=== PATIENT | female | born 1960 | race Caucasian/White ===

== ENCOUNTER 2018-05-28 23:44 | Emergency (ER) | payer OTHER ==
--- OUTSIDE RECORDS SUMMARY | 2018-05-28 23:45 | XMS REPORT ---
:1960 [facility] to [facility] [address] [place] [id number] Care Team Providers Name Role Phone Unavailable Unavailable Unavailable Problems This patient has no known problems. Allergies, Adverse Reactions, Alerts This patient has no known allergies or adverse reactions. Medications This patient has no known medications.
[2018-05-29 01:05] LABS: Protime INR 1.23
[2018-05-29 01:17] LABS: ALT/SGPT 26 U/L (12-78); AST/SGOT 34 U/L (15-37); Albumin 4.2 g/dL (3.4-5.0); Alkaline Phosphatase 94 U/L (45-117); BUN Blood Urea Nitrogen 29 mg/dL (7-18); Bicarbonate 19 mmol/L (21-32); Bilirubin Direct 0.1 mg/dL (0-0.2); Bilirubin Total 0.5 mg/dL (0.2-1.0); Glucose Level 95 mg/dL (74-106); Magnesium 1.8 mg/dL (1.8-2.4); Potassium 3.3 mmol/L (3.5-5.1); Protein, Total 8.1 g/dL (6.4-8.2); Sodium Level 137 mmol/L (136-145); Troponin (Emerg Dept Use Only) < 0.02 ng/mL (0.0-0.045)
[2018-05-29 01:21] LABS: Absolute Lymphocytes (CBC) 1.6 K/uL (0.7-4.9); Absolute Monocytes 0.9 K/uL (0.1-1.3); Absolute Neutrophil 16.8 K/uL (1.8-8.0); Basophils % 0.6 % (0-1.3); Hematocrit 31.2 % (36.0-45.0); Lymphocytes % 8.1 % (15.3-44.8); MCH 30.8 pg (27.0-35.0); MCV 89.9 fL (80-100); MPV 9.2 fL (7.6-11.3); Monocytes % 4.5 % (3.3-12.3); RBC Red Blood Cell Count 3.47 M/uL (3.86-4.86)
[2018-05-29 02:24] LABS: Blood Morphology Comment NOT SEEN (NOT SEEN); Platelet Estimate ADEQ
[2018-05-29] MEDS ORDERED: LIDOCAINE VISCOUS 2% SOLN 15 ML UDC ONE (02:48)
[2018-05-29] MEDS ORDERED: MAGNE/ALUM HYDROXD 30 ML UCUP ONE (02:48)
--- NOTE | 2018-05-29 03:37 | EDPHYS ---
Physician Documentation [facility] Name: Martha Pradhan Age: 57 yrs Sex: Female : 1960 Arrival Date: 05/28/2018 Time: 23:44 Bed 5 Private MD: ED Physician Pradip Ramírez HPI: 05/29 02:05 This 57 yrs old Female presents to ER via EMS with complaints of Anxiety. tw4 02:05 The patient has shortness of breath with light activity. Onset: The symptoms/episode tw4 began/occurred today. Duration: The symptoms are intermittent. The patient's shortness of breath has no apparent modifying factors. Associated signs and symptoms: The patient has no apparent associated signs or symptoms. Severity of symptoms: At their worst the symptoms were moderate in the emergency department the symptoms are unchanged. The patient has not experienced similar symptoms in the past. Historical: - Allergies: 05/28 23:58 haloperidol lactate; lp1 23:58 hydroxyzine HCl; lp1 23:58 Hydroxyzine Pamoate; lp1 23:58 Ibuprofen; lp1 23:58 Lyrica; lp1 23:58 meloxicam; lp1 23:58 nalbuphine HCl; lp1 23:58 Naproxen; lp1 23:58 Naproxen Sodium; lp1 23:58 NSAIDS (Non-Steroidal Anti-Inflammatory Drug); lp1 23:58 Vistaril; lp1 - Home Meds: 23:58 fentanyl 50 mcg/hr Topical pt72 1 patch every 72 hours [Active]; metoprolol tartrate 25 lp1 mg Oral tab 1 tab 2 times per day [Active]; Omeprazole Oral [Active]; Bentyl Oral [Active]; - PMHx: 23:58 ADD/ADHD; Arthritis; Back pain; Chronic pain; Osteoporosis; Tachycardia; Irritable lp1 bowel syndrome; Anxiety; - PSHx: 23:58 Hysterectomy; Appendectomy; lp1 - Immunization history:: Adult Immunizations up to date. - Social history:: Smoking status: Patient/guardian denies using tobacco, the patient reports quitting approximately 6 years ago. - Ebola Screening: : No symptoms or risks identified at this time. ROS: 05/29 02:05 Constitutional: Negative for fever, chills, and weight loss, Eyes: Negative for injury, tw4 pain, redness, and discharge, Abdomen/GI: Negative for abdominal pain, nausea, vomiting, diarrhea, and constipation, Back: Negative for injury and pain. Cardiovascular: Positive for chest pain. Respiratory: Positive for shortness of breath. Exam: 02:05 Constitutional: This is a well developed, well nourished patient who is awake, alert, tw4 and in no acute distress. Head/Face: Normocephalic, atraumatic. Chest/axilla: Normal chest wall appearance and motion. Nontender with no deformity. No lesions are appreciated. Cardiovascular: Regular rate and rhythm with a normal S1 and S2. No gallops, murmurs, or rubs. Normal PMI, no JVD. No pulse deficits. Respiratory: Lungs have equal breath sounds bilaterally, clear to auscultation and percussion. No rales, rhonchi or wheezes noted. No increased work of breathing, no retractions or nasal flaring. Abdomen/GI: Soft, non-tender, with normal bowel sounds. No distension or tympany. No guarding or rebound. No evidence of tenderness throughout. Back: No spinal tenderness. No costovertebral tenderness. Full range of motion. MS/ Extremity: Pulses equal, no cyanosis. Neurovascular intact. Full, normal range of motion. Neuro: Awake and alert, GCS 15, oriented to person, place, time, and situation. Cranial nerves II-XII grossly intact. Motor strength 5/5 in all extremities. Sensory grossly intact. Cerebellar exam normal. Normal gait. Vital Signs: 05/28 23:54 BP 138 / 60; Pulse 95; Resp 22; Temp 100.2(O); Pulse Ox 100% on R/A; Weight 52.16 kg; lp1 Height 5 ft. 6 in. (167.64 cm); Pain 7/10; 05/29 01:33 BP 114 / 73; Pulse 86; Resp 18; Temp 99.7; Pulse Ox 100% on R/A; aa1 03:46 BP 121 / 63; Pulse 86; Resp 20; Pulse Ox 97% on R/A; aa1 05/28 23:54 Body Mass Index 18.56 (52.16 kg, 167.64 cm) lp1 MDM: 00:04 Patient medically screened. tw4 03:39 Differential diagnosis: Anemia Anxiety Reaction reactive airway disease. Data reviewed: tw4 vital signs, nurses notes. Data interpreted: Pulse oximetry: Interpretation:. Counseling: I had a detailed discussion with the patient and/or guardian regarding: the historical points, exam findings, and any diagnostic results supporting the discharge/admit diagnosis. 05/29 00:04 Order name: Basic Metabolic Panel tw4 05/29 00:04 Order name: CBC with Diff tw4 05/29 00:04 Order name: LFT's tw4 05/29 00:04 Order name: Magnesium tw4 05/29 00:04 Order name: NT PRO-BNP tw4 05/29 00:04 Order name: PT-INR tw4 05/29 00:04 Order name: Troponin (emerg Dept Use Only) tw4 05/29 00:04 Order name: XRAY Chest (1 view) tw4 05/29 00:04 Order name: EKG; Complete Time: 00:06 tw4 05/29 00:04 Order name: Cardiac monitoring; Complete Time: 00:04 tw4 05/29 00:04 Order name: EKG - Nurse/Tech; Complete Time: 00:21 tw4 05/29 01:26 Order name: Manual Differential EDMS 05/29 02:42 Order name: Troponin (emerg Dept Use Only) tw4 05/29 00:04 Order name: IV Saline Lock; Complete Time: 00:54 tw4 05/29 00:04 Order name: Labs collected and sent; Complete Time: 00:54 tw4 05/29 00:04 Order name: O2 Per Protocol; Complete Time: 00:04 tw4 05/29 00:04 Order name: O2 Sat Monitoring; Complete Time: 00:04 tw4 EC:38 Rate is 92 beats/min. Rhythm is regular. QRS [place] is Normal. [place] interval is normal. QRS tw4 interval is normal. QT interval is normal. No Q waves. T waves are Normal. No ST changes noted. Clinical impression: Normal ECG. Interpreted by me. Reviewed by me. Administered Medications: 02:50 Drug: GI Cocktail without - (Maalox Suspension 30 ml, Lidocaine Liquid 2 % 15 aa1 ml) Route: PO; Disposition: 05/29/18 03:36 Discharged to Home. Impression: Gastritis, unspecified. - Condition is Stable. - Discharge Instructions: Gastritis, Adult, Dyst-dt-Fsle. - Prescriptions for Carafate 1 gram Oral Tablet - take 1 tablet by ORAL route 4 times per day take on an empty stomach, beginning on waking and last dose at bedtime; 100 tablet. - Medication Reconciliation Form, Thank You Letter, Antibiotic Education, Prescription Opioid Use form. - Follow up: Private Physician; When: Upon discharge from the Emergency Department; Reason: If symptoms return, Recheck today's complaints, Continuance of care. - Problem is new. - Symptoms have improved. Signatures: Dispatcher [employer] EDNancy Hernández RN RN aa1 Sindi Guillen RN RN lp1 Pradip Ramírez MD MD tw4 Corrections: (The following items were deleted from the chart) 03:50 03:36 05/29/2018 03:36 Discharged to Home. Impression: Gastritis, unspecified. aa1 Condition is Stable. Forms are Medication Reconciliation Form, Thank You Letter, Antibiotic Education, Prescription Opioid Use. Follow up: Private Physician; When: Upon discharge from the Emergency Department; Reason: If symptoms return, Recheck today's complaints, Continuance of care. Problem is new. Symptoms have improved. tw4
--- NOTE | 2018-05-29 03:37 | ER ---
Nurse's Notes [facility] Name: Martha Pradhan Age: 57 yrs Sex: Female : 1960 Arrival Date: 05/28/2018 Time: 23:44 Bed 5 Private MD: Diagnosis: Gastritis, unspecified Presentation: 05/28 23:51 Presenting complaint: EMS states: Called for shortness of breath related to anxiety; lp1 patient has hx of anxiety; Complaint of chest pain, noted to be hyperventilating on arrival to ED. Transition of care: patient was not received from another setting of care. Onset of symptoms was May 28, 2018 at 22:00. Risk Assessment: Do you want to hurt yourself or someone else? Patient reports no desire to harm self or others. Initial Sepsis Screen: Does the patient meet any 2 criteria? No. Patient's initial sepsis screen is negative. Does the patient have a suspected source of infection? No. Patient's initial sepsis screen is negative. Note Patient states taking her home med of Metoprolol which usually helps, no relief for this occurrence. Care prior to arrival: Medication(s) given: ASA, 81 mg, x 4. 23:51 Method Of Arrival: EMS: [facility] lp1 23:51 Acuity: ROSALBA 3 lp1 Historical: - Allergies: 23:58 haloperidol lactate; lp1 23:58 hydroxyzine HCl; lp1 23:58 Hydroxyzine Pamoate; lp1 23:58 Ibuprofen; lp1 23:58 Lyrica; lp1 23:58 meloxicam; lp1 23:58 nalbuphine HCl; lp1 23:58 Naproxen; lp1 23:58 Naproxen Sodium; lp1 23:58 NSAIDS (Non-Steroidal Anti-Inflammatory Drug); lp1 23:58 Vistaril; lp1 - Home Meds: 23:58 fentanyl 50 mcg/hr Topical pt72 1 patch every 72 hours [Active]; metoprolol tartrate 25 lp1 mg Oral tab 1 tab 2 times per day [Active]; Omeprazole Oral [Active]; Bentyl Oral [Active]; - PMHx: 23:58 ADD/ADHD; Arthritis; Back pain; Chronic pain; Osteoporosis; Tachycardia; Irritable lp1 bowel syndrome; Anxiety; - PSHx: 23:58 Hysterectomy; Appendectomy; lp1 - Immunization history:: Adult Immunizations up to date. - Social history:: Smoking status: Patient/guardian denies using tobacco, the patient reports quitting approximately 6 years ago. - Ebola Screening: : No symptoms or risks identified at this time. Screenin:59 Abuse screen: Denies threats or abuse. Denies injuries from another. Nutritional lp1 screening: No deficits noted. Tuberculosis screening: No symptoms or risk factors identified. Fall Risk Total Silva Fall Scale indicates High Risk Score (45 or more points). Fall prevention measures have been instituted. Side Rails Up X 2 As available patient and family educated on Fall Prevention Program and Strategies. Assessment: 23:59 General: Appears uncomfortable, Behavior is anxious, restless. Pain: Complains of pain lp1 in back, chest, right leg and left leg Pain currently is 7 out of 10 on a pain scale. Neuro: Level of Consciousness is awake, alert, obeys commands, Oriented to person, place, situation. Cardiovascular: Patient's skin is warm and dry. Respiratory: Reports shortness of breath Airway is patent Respiratory effort is labored, Respiratory pattern is tachypnea Breath sounds are clear bilaterally. GI: Abdomen is flat. : No signs and/or symptoms were reported regarding the genitourinary system. EENT: No signs and/or symptoms were reported regarding the EENT system. Derm: Skin is fragile, is thin, Skin is dry, Skin is normal. Musculoskeletal: Circulation, motion, and sensation intact. 05/29 01:33 Reassessment: Patient appears in no apparent distress at this time. Patient and/or aa1 family updated on plan of care and expected duration. Pain level reassessed. Patient is alert, oriented x 3, equal unlabored respirations, skin warm/dry/pink. Awaiting provider reassessment. 03:46 Reassessment: Patient appears in no apparent distress at this time. Patient is alert, aa1 oriented x 3, equal unlabored respirations, skin warm/dry/pink. Discussed d/c \T\ f/u instructions with pt; denies questions or concerns at this time Patient states feeling better. Vital Signs: 05/28 23:54 BP 138 / 60; Pulse 95; Resp 22; Temp 100.2(O); Pulse Ox 100% on R/A; Weight 52.16 kg; lp1 Height 5 ft. 6 in. (167.64 cm); Pain 7/10; 05/29 01:33 BP 114 / 73; Pulse 86; Resp 18; Temp 99.7; Pulse Ox 100% on R/A; aa1 03:46 BP 121 / 63; Pulse 86; Resp 20; Pulse Ox 97% on R/A; aa1 05/28 23:54 Body Mass Index 18.56 (52.16 kg, 167.64 cm) lp1 ED Course: 05/28 23:44 Patient arrived in ED. al2 23:54 Triage completed. lp1 23:55 Arm band placed on right wrist. lp1 23:59 Patient has correct armband on for positive identification. Placed in gown. Bed in low lp1 position. Side rails up X2. color television console monitor on. Pulse ox on. NIBP on. 12 00:04 Pradip Ramírez MD is Attending Physician. tw4 00:20 Initial lab(s) drawn, by nj, sent to lab. Inserted saline lock: 20 gauge in right aa1 forearm, using aseptic technique. Blood collected. 00:21 EKG done, by ED staff, reviewed by Pradip Ramírez MD. lp1 00:40 X-ray completed. Portable x-ray completed in exam room. Patient tolerated procedure sg4 well. 00:54 Nancy Adan, RN is Primary Nurse. aa1 01:01 XRAY Chest (1 view) In Process Unspecified. EDMS 02:50 Troponin (emerg Dept Use Only) Sent. aa1 03:46 No provider procedures requiring assistance completed. IV discontinued, intact, aa1 bleeding controlled, No redness/swelling at site. Pressure dressing applied. Administered Medications: 02:50 Drug: GI Cocktail without - (Maalox Suspension 30 ml, Lidocaine Liquid 2 % 15 aa1 ml) Route: PO; Outcome: 03:36 Discharge ordered by . tw4 03:46 Discharged to home ambulatory. aa1 03:46 Condition: good 03:46 Discharge instructions given to patient, Instructed on discharge instructions, follow up and referral plans. medication usage, Demonstrated understanding of instructions, follow-up care, medications, Prescriptions given X 1. 03:50 Patient left the ED. aa1 Signatures: Dispatcher [employer] EDMS Nancy Adan RN RN aa1 Sindi Guillen, RN RN lp1 Trudi, Rochelle al2 Pradip Ramírez MD MD tw4 Rashawn, Randee 4
--- NOTE | 2018-05-29 07:03 | EKG ---
Test Date: 2018-05-29 Test Time: 00:18:34 Vamp Presser: RAAD MEASUREMENT RESULTS: Intervals: Rate: 92 ME: 132 QRSD: 84 QT: 356 QTc: 440 [place]: P: 66 ME: 132 QRS: 64 T: 54 INTERPRETIVE STATEMENTS: Normal sinus rhythm Normal ECG No previous ECG available for comparison Electronically Signed On 05-29-18 07:02:51 MEDICAL DEVICE SALES CONSULTANT by Wale Loja
--- NOTE | 2018-05-29 08:46 | RAD REPORT ---
EXAM DESCRIPTION: Sarwat Single View05/29/2018 1:00 am CLINICAL HISTORY: Chest pain COMPARISON: none FINDINGS: The lungs appear clear of acute infiltrate. The heart is normal size. Old rib clavicle an d humeral fractures IMPRESSION: No acute abnormalities displayed
== END 2018-05-29 03:50 | disposition home or self-care (01) ==
LOC: ER 23:44
DX: K29.70 Gastritis, unspecified, without bleeding (principal); F41.9 Anxiety disorder, unspecified; F90.9 Attention-deficit hyperactivity disorder, unspecified type; Z88.6 Allergy status to analgesic agent; Z88.8 Allergy status to other drugs, medicaments and biological substances
CPT/HCPCS: 36415; 71045; 80048; 80076; 83735; 83880; 84484; 85025; 85610; 93005; 99285

== ENCOUNTER → 2018-11-21 | Emergency (ER) | payer OTHER ==
[~2018-11-21] MED LIST: HEPARIN 5000 UNIT/ML 1 ML VIAL SQ SCH; NA CHLORIDE 0.9% 1,000 ML IV SCH; NA CHLORIDE 0.9% 2,000 ML ONE; ONDANSETRON 4 MG/2 ML VIAL IV PRN
--- OUTSIDE RECORDS SUMMARY | 2018-11-21 21:13 | XMS REPORT ---
:1960 [facility] [address] [place] [id number] Care Team Providers Name Role Phone Unavailable Unavailable Unavailable Problems This patient has no known problems. Allergies, Adverse Reactions, Alerts This patient has no known allergies or adverse reactions. Medications This patient has no known medications.
[2018-11-21 22:46] LABS: Absolute Lymphocytes (CBC) 0.9 K/uL (0.7-4.9); Absolute Monocytes 0.9 K/uL (0.1-1.3); Absolute Neutrophil 7.3 K/uL (1.8-8.0); Basophils % 0.7 % (0-1.3); Hematocrit 35.2 % (36.0-45.0); MPV 8.6 fL (7.6-11.3); Monocytes % 9.4 % (3.3-12.3); RBC Red Blood Cell Count 4.14 M/uL (3.86-4.86)
[2018-11-21 22:51] LABS: Protime INR 1.12
[2018-11-21 22:59] LABS: ALT/SGPT 22 U/L (12-78); AST/SGOT 23 U/L (15-37); Albumin 3.5 g/dL (3.4-5.0); Alkaline Phosphatase 121 U/L (45-117); BUN Blood Urea Nitrogen 25 mg/dL (7-18); Bicarbonate 26 mmol/L (21-32); Bilirubin Direct < 0.1 mg/dL (0-0.2); Bilirubin Total 0.3 mg/dL (0.2-1.0); Glucose Level 155 mg/dL (74-106); Potassium 4.1 mmol/L (3.5-5.1); Protein, Total 7.4 g/dL (6.4-8.2); Sodium Level 141 mmol/L (136-145)
[2018-11-22 00:23] LABS: Barbiturates NEGATIVE (NEGATIVE); Benzodiazepines POSITIVE (NEGATIVE); Cocaine NEGATIVE (NEGATIVE); METHAMPHETAM POSITIVE (NEGATIVE); Methadone NEGATIVE (NEGATIVE); Opiates NEGATIVE (NEGATIVE); Phencyclidine NEGATIVE (NEGATIVE); THC Cannibis NEGATIVE (NEGATIVE)
--- NOTE | 2018-11-22 00:23 | ER ---
Nurse's Notes [facility] Name: Martha Pradhan Age: 58 yrs Sex: Female : 1960 Arrival Date: 11/21/2018 Time: 21:18 Bed 20 Private MD: Diagnosis: Altered mental status, unspecified;Adverse effect of amphetamines;Adverse effect of benzodiazepines Presentation: 11/21 21:15 Presenting complaint: EMS states: "Patient was found unconscious lying on the floor by cc3 her mother at around 1930H this evening. The mother said they don't know since when she was lying there unconscious because she is usually awake at night and asleep during the day. When we arrived at their house at 2015H the patient is awake already and oriented X2. Patient is on Amphetamine Salts 30 mg twice daily but her mother don't know if she overdose it because on the bottle it should be 60 pills total but when counted it's only 52 pills remaining, the mother said the patient has history of abusing this drug before. Patient was combative earlier with heart rate of 160 bpm so we have given her Ativan 2 mg IV". Transition of care: patient was not received from another setting of care. Onset of symptoms was November 21, 2018. Risk Assessment: Do you want to hurt yourself or someone else? Patient reports no desire to harm self or others. Initial Sepsis Screen: Does the patient meet any 2 criteria? No. Patient's initial sepsis screen is negative. Does the patient have a suspected source of infection? No. Patient's initial sepsis screen is negative. Care prior to arrival: Medication(s) given: Ativan 2 mg IV given by EMS. 21:15 [facility] cc[facility] 21:15 Acuity: ROSALBA 2 cc3 Triage Assessment: 21:15 General: Appears in no apparent distress. comfortable, Behavior is calm, cooperative, cc3 appropriate for age. Pain: Denies pain. EENT: No signs and/or symptoms were reported regarding the EENT system. Neuro: Level of Consciousness is awake, obeys commands, Oriented to person, place. Cardiovascular: Patient's skin is warm and dry. Respiratory: Airway is patent Respiratory effort is even, unlabored, Respiratory pattern is regular, symmetrical. GI: Abdomen is flat, non-distended. : No signs and/or symptoms were reported regarding the genitourinary system. Derm: No signs and/or symptoms reported regarding the dermatologic system. Musculoskeletal: Range of motion: limited in bilateral lower limbs. Historical: - Allergies: 21:15 haloperidol lactate; cc3 21:15 hydroxyzine HCl; cc3 21:15 Hydroxyzine Pamoate; cc3 21:15 Ibuprofen; cc3 21:15 Lyrica; cc3 21:15 meloxicam; cc3 21:15 nalbuphine HCl; cc3 21:15 Naproxen; cc3 21:15 Naproxen Sodium; cc3 21:15 NSAIDS (Non-Steroidal Anti-Inflammatory Drug); cc3 21:15 Vistaril; cc3 - Home Meds: 21:15 Adderall XR 30 mg oral cp24 2x daily [Active]; Bentyl Oral [Active]; fentanyl 50 mcg/hr cc3 Topical pt72 1 patch every 72 hours [Active]; Klonopin 1 mg Oral tab 1 tab 3 times per day [Active]; metoprolol tartrate 50 mg oral tab 1 tab 3 times per day [Active]; Omeprazole Oral [Active]; Premarin 1.25 mg Oral tab 1 tab once daily [Active]; - PMHx: 21:15 ADD/ADHD; Anxiety; Arthritis; Back pain; Chronic pain; Irritable bowel syndrome; cc3 Osteoporosis; Tachycardia; restless leg syndrome; - PSHx: 21:15 both feet broken 2x; broken ribs 2x; cc3 - Immunization history:: Adult Immunizations up to date. - Social history:: Smoking status: Patient/guardian denies using tobacco, but has a distant history of tobacco abuse. - Ebola Screening: : No symptoms or risks identified at this time. Screenin:15 Abuse screen: Denies threats or abuse. Denies injuries from another. Nutritional cc3 screening: No deficits noted. Tuberculosis screening: No symptoms or risk factors identified. Fall Risk Ambulatory Aid- None/Bed Rest/Nurse Assist (0 pts). Gait- Normal/Bed Rest/Wheelchair (0 pts) Mental Status- Oriented to own ability (0 pts). Assessment: 21:15 General: see triage assessment. Patient is awake, answers questions when asked and cc3 oriented to person and place at this time. 22:25 Reassessment: Patient appears in no apparent distress at this time. Patient and/or cc3 family updated on plan of care and expected duration. Pain level reassessed. Patient's family at bedside. 23:00 Reassessment: Patient appears in no apparent distress at this time. Patient and/or cc3 family updated on plan of care and expected duration. Pain level reassessed. Patient is sleeping. Arousable to voice with incomprehensible sounds. The mother said it's not the first time that the patient's in this state because she has history of abusing her Amphetamine Salts before. SUMMER Pulido aware. 11/22 00:10 Reassessment: Patient's mother went home and left her home phone number [phone]. cc3 00:55 Reassessment: Patient appears in no apparent distress at this time. Patient for cc3 admission, Dr. Guillen at bedside. 01:30 Reassessment: Patient appears in no apparent distress at this time. Patient taken by CT cc3 scan body technician/painter to their department for CT scan of head procedure. Patient is ER Hold, documentation continued in [facility]. 01:55 Reassessment: Patient came back from CT scan department, awaiting result. cc3 07:00 Reassessment: Patient appears in no apparent distress at this time. Patient and/or cc3 family updated on plan of care and expected duration. Pain level reassessed. Patient is alert, oriented x 3, equal unlabored respirations, skin warm/dry/pink. Dr. Guillen discharged the patient home, IV cannula removed and patient left ER vitally stable by wheelchair escorted by [facility] and the patient's mother. Vital Signs: 11/21 21:15 BP 95 / 36; Pulse 88; Resp 20 S; Temp 97.8(TE); Pulse Ox 100% on R/A; Weight 45.36 kg cc3 (R); Height 5 ft. 0 in. (152.40 cm) (R); Pain 0/10; 21:45 BP 100 / 59; Pulse 78; Resp 19 S; Pulse Ox 99% on R/A; cc3 22:30 BP 110 / 48; Pulse 80; Resp 19 S; Pulse Ox 100% on R/A; cc3 23:30 BP 130 / 81; Pulse 76; Resp 17 S; Pulse Ox 100% on R/A; cc3 11/22 00:02 BP 116 / 60; Pulse 68; Resp 13 S; Pulse Ox 100% on R/A; cc3 01:15 BP 127 / 58; Pulse 70; Resp 20 S; Pulse Ox 100% on R/A; cc3 11/21 21:15 Body Mass Index 19.53 (45.36 kg, 152.40 cm) cc3 Armando Coma Score: 11/21 21:15 Eye Response: spontaneous(4). Verbal Response: oriented(5). Motor Response: obeys cc3 commands(6). Total: 15. 23:00 Eye Response: to voice(3). Verbal Response: incomprehensible(2). Motor Response: cc3 localizes pain(5). Total: 10. ED Course: 21:15 Maintain EMS IV. Dressing intact. Good blood return noted. Site clean \\T\\ dry. Gauge \\T\\ cc 3 site: gauge 20 right ACV. 21:15 Arm band placed on right wrist. Patient notified of wait time. EKG completed in triage. cc3 Results shown to MD. 21:18 Patient arrived in ED. rn 21:22 Santosh Pulido PA is PHCP. jr8 21:22 Bryon Rivera MD is Attending Physician. jr8 21:30 Placed in gown. Bed in low position. Call light in reach. Side rails up X 1. Side rails jp3 up X2. Pillow given. Verbal reassurance given. 21:30 clinical research monitor on. Pulse ox on. NIBP on. jp3 21:33 Josiane Joe is Primary Nurse. cc3 21:36 EKG done, by ED staff, reviewed by Santosh WHEELER. jp3 22:03 Triage completed. cc3 22:35 Acetaminophen Sent. jp3 22:35 Basic Metabolic Panel Sent. jp3 22:35 CBC with Diff Sent. jp3 22:35 ETOH Level Sent. jp3 22:35 Hepatic Function Sent. jp3 22:35 PT-INR Sent. jp3 22:35 Ptt, Activated Sent. jp3 22:35 Salicylate Sent. jp3 11/22 00:21 Eliud Guillen MD is Hospitalizing Provider. jr8 01:51 CT Head Brain wo Cont In Process Unspecified. EDMS 07:00 No provider procedures requiring assistance completed. IV discontinued, intact, cc3 bleeding controlled, No redness/swelling at site. Pressure dressing applied. Administered Medications: 00:30 Drug: NS 0.9% 1000 ml Route: IV; Rate: 1000 ml; Site: right forearm; cc3 01:30 Follow up: Response: No adverse reaction; IV Status: Completed infusion; IV Intake: cc3 1000ml 00:44 Drug: NS 0.9% 1000 ml Route: IV; Rate: 75 ml/hr; Site: right forearm; cc3 01:00 Follow up: Response: No adverse reaction; IV Status: Infusion continued upon admission cc3 Intake: 01:30 IV: 1000ml; Total: 1000ml. cc3 Outcome: 00:23 Decision to Hospitalize by Provider. jr8 07:00 Patient left the ED. cc3 07:00 Discharged to home via wheelchair, with family. cc3 07:00 Condition: stable 07:00 Discharge instructions given to patient, family, Instructed on discharge instructions, follow up and referral plans. Demonstrated understanding of instructions, follow-up care. Signatures: Dispatcher [employer] EDMS Bryon Rivera MD MD rn Roszak, Josh, PA PA jr8 Waldo Langley jp3 Josiane Joe cc3 Corrections: (The following items were deleted from the chart) 01:48 00:55 Reassessment: Dr. Guillen at bedside. cc3 cc3 01:48 0611 21:15 General: see triage assessment. cc3 cc3 11/22 01:55 06 23:00 Reassessment: Patient appears in no apparent distress at this time. Patient cc3 and/or family updated on plan of care and expected duration. Pain level reassessed. Patient is sleeping. Arousable to pain with incomprehensible sounds. The mother said it's not the first time that the patient's in this state because she has history of abusing her Amphetamine Salts before. SUMMER Pulido aware. cc3 11/22 01:56 11 23:00 GCS: 9, cc3 cc3
--- NOTE | 2018-11-22 00:24 | EDPHYS ---
Physician Documentation [facility] Name: Martha Pradhan Age: 58 yrs Sex: Female : 1960 Arrival Date: 11/21/2018 Time: 21:18 Bed 20 Private MD: ED Physician Bryon Rivera HPI: 11/21 22:46 This 58 yrs old Female presents to ER via EMS with complaints of overdose. jr8 22:46 The patient presents to the emergency department after a known overdose, that was jr8 intentional. Context: Method: the patient has a confirmed or suspected ingestion, amphetamines. Associated signs and symptoms: Pertinent positives: anxiety. Severity of symptoms: At their worst the symptoms were moderate in the emergency department the symptoms have improved. The patient has not experienced similar symptoms in the past. The patient has not recently seen a physician. Mother of patient stated that she controls patients medications because patient abuses her medications. Patient got upset tonight and took the medications from her mother and went into her room. Later came out and through a basket at her. EMS and police were called. Patient was agitated upon arrival and was given Ativan. Patient now resting and without acute agitation. Patient denies taking anything or wanting to hurt herself . Historical: - Allergies: 21:15 haloperidol lactate; cc3 21:15 hydroxyzine HCl; cc3 21:15 Hydroxyzine Pamoate; cc3 21:15 Ibuprofen; cc3 21:15 Lyrica; cc3 21:15 meloxicam; cc3 21:15 nalbuphine HCl; cc3 21:15 Naproxen; cc3 21:15 Naproxen Sodium; cc3 21:15 NSAIDS (Non-Steroidal Anti-Inflammatory Drug); cc3 21:15 Vistaril; cc3 - Home Meds: 21:15 Adderall XR 30 mg oral cp24 2x daily [Active]; Bentyl Oral [Active]; fentanyl 50 mcg/hr cc3 Topical pt72 1 patch every 72 hours [Active]; Klonopin 1 mg Oral tab 1 tab 3 times per day [Active]; metoprolol tartrate 50 mg oral tab 1 tab 3 times per day [Active]; Omeprazole Oral [Active]; Premarin 1.25 mg Oral tab 1 tab once daily [Active]; - PMHx: 21:15 ADD/ADHD; Anxiety; Arthritis; Back pain; Chronic pain; Irritable bowel syndrome; cc3 Osteoporosis; Tachycardia; restless leg syndrome; - PSHx: 21:15 both feet broken 2x; broken ribs 2x; cc3 - Immunization history:: Adult Immunizations up to date. - Social history:: Smoking status: Patient/guardian denies using tobacco, but has a distant history of tobacco abuse. - Ebola Screening: : No symptoms or risks identified at this time. ROS: 22:46 Eyes: Negative for injury, pain, redness, and discharge, ENT: Negative for injury, jr8 pain, and discharge, Neck: Negative for injury, pain, and swelling, Cardiovascular: Negative for chest pain, palpitations, and edema, Respiratory: Negative for shortness of breath, cough, wheezing, and pleuritic chest pain, Abdomen/GI: Negative for abdominal pain, nausea, vomiting, diarrhea, and constipation, Back: Negative for injury and pain, MS/Extremity: Negative for injury and deformity, Skin: Negative for injury, rash, and discoloration, Neuro: Negative for headache, weakness, numbness, tingling, and seizure. 22:46 Psych: Positive for anxiety. Exam: 22:46 Eyes: Pupils equal round and reactive to light, extra-ocular motions intact. Lids and jr8 lashes normal. Conjunctiva and sclera are non-icteric and not injected. Cornea within normal limits. Periorbital areas with no swelling, redness, or edema. ENT: Nares patent. No nasal discharge, no septal abnormalities noted. Tympanic membranes are normal and external auditory canals are clear. Oropharynx with no redness, swelling, or masses, exudates, or evidence of obstruction, uvula midline. Mucous membranes moist. Neck: Trachea midline, no thyromegaly or masses palpated, and no cervical lymphadenopathy. Supple, full range of motion without nuchal rigidity, or vertebral point tenderness. No Meningismus. Cardiovascular: Regular rate and rhythm with a normal S1 and S2. No gallops, murmurs, or rubs. Normal PMI, no JVD. No pulse deficits. Respiratory: Lungs have equal breath sounds bilaterally, clear to auscultation and percussion. No rales, rhonchi or wheezes noted. No increased work of breathing, no retractions or nasal flaring. Abdomen/GI: Soft, non-tender, with normal bowel sounds. No distension or tympany. No guarding or rebound. No evidence of tenderness throughout. Back: No spinal tenderness. No costovertebral tenderness. Full range of motion. Skin: Warm, dry with normal turgor. Normal color with no rashes, no lesions, and no evidence of cellulitis. MS/ Extremity: Pulses equal, no cyanosis. Neurovascular intact. Full, normal range of motion. Neuro: Awake and alert, GCS 15, oriented to person, place, time, and situation. Cranial nerves II-XII grossly intact. Motor strength 5/5 in all extremities. Sensory grossly intact. Cerebellar exam normal. Normal gait. Psych: Awake, alert, with orientation to person, place and time. Behavior, mood, and affect are within normal limits. Vital Signs: 21:15 BP 95 / 36; Pulse 88; Resp 20 S; Temp 97.8(TE); Pulse Ox 100% on R/A; Weight 45.36 kg cc3 (R); Height 5 ft. 0 in. (152.40 cm) (R); Pain 0/10; 21:45 BP 100 / 59; Pulse 78; Resp 19 S; Pulse Ox 99% on R/A; cc3 22:30 BP 110 / 48; Pulse 80; Resp 19 S; Pulse Ox 100% on R/A; cc3 23:30 BP 130 / 81; Pulse 76; Resp 17 S; Pulse Ox 100% on R/A; cc3 12 00:02 BP 116 / 60; Pulse 68; Resp 13 S; Pulse Ox 100% on R/A; cc3 01:15 BP 127 / 58; Pulse 70; Resp 20 S; Pulse Ox 100% on R/A; cc3 11/21 21:15 Body Mass Index 19.53 (45.36 kg, 152.40 cm) cc3 Armando Coma Score: 11/21 21:15 Eye Response: spontaneous(4). Verbal Response: oriented(5). Motor Response: obeys cc3 commands(6). Total: 15. 23:00 Eye Response: to voice(3). Verbal Response: incomprehensible(2). Motor Response: cc3 localizes pain(5). Total: 10. MDM: 21:22 Patient medically screened. jr8 11/22 00:21 Data reviewed: vital signs, nurses notes, lab test result(s), EKG. Data interpreted: [facility] Pulse oximetry: on room air is 100 %. Interpretation: normal. Counseling: I had a detailed discussion with the patient and/or guardian regarding: the historical points, exam findings, and any diagnostic results supporting the discharge/admit diagnosis, lab results, the need for further work-up and treatment in the hospital. Physician consultation: Eliud Guillen MD was called at 00:21, was contacted at 00:21, regarding admission, to the telemetry unit. consult, patient's condition, and will see patient in ED. 11/21 21:50 Order name: Acetaminophen [facility] 11/21 21:50 Order name: Basic Metabolic Panel [facility] 11/21 21:50 Order name: CBC with Diff [facility] 11/21 21:50 Order name: ETOH Level [facility] 11/21 21:50 Order name: Hepatic Function [facility] 11/21 21:50 Order name: PT-INR [facility] 11/21 21:50 Order name: Ptt, Activated [facility] 11/21 21:50 Order name: Salicylate; Complete Time: 23:04 [facility] 11/21 21:50 Order name: Urine Drug Screen; Complete Time: 00:24 [facility] 11/21 21:51 Order name: Acetaminophen Level; Complete Time: 23:04 [facility] 11/21 21:51 Order name: Basic Metabolic Panel; Complete Time: 23:04 [facility] 11/21 21:51 Order name: CBC with Automated Diff; Complete Time: 22:53 [facility] 11/21 21:51 Order name: Alcohol Serum/Plasma; Complete Time: 23:04 [facility] 11/21 21:51 Order name: Liver (Hepatic) Function; Complete Time: 23:04 [facility] 11/21 21:50 Order name: EKG; Complete Time: 21:51 [facility] 11/21 21:50 Order name: EKG - Nurse/Tech; Complete Time: 21:53 [facility] 11/21 21:50 Order name: IV Saline Lock; Complete Time: 22:34 [facility] 11/21 21:50 Order name: Labs collected and sent; Complete Time: 22:35 [facility] 11/21 21:50 Order name: Urine Dipstick-Ancillary (obtain specimen); Complete Time: 23:51 [facility] 11/21 21:51 Order name: Protime (+INR); Complete Time: 23:04 EDMS 11/21 21:51 Order name: PTT, Activated Partial Thromb; Complete Time: 23:04 EDMS 11/21 23:55 Order name: Urine Dipstick--Ancillary (enter results); Complete Time: 01:18 ar5 11/22 01:18 Order name: CT Head Brain wo Cont jr8 11/22 01:20 Order name: Head Brain Wo Cont EDMS 11/22 06:23 Order name: Basic Metabolic Panel EDMS Administered Medications: 00:30 Drug: NS 0.9% 1000 ml Route: IV; Rate: 1000 ml; Site: right forearm; cc3 01:30 Follow up: Response: No adverse reaction; IV Status: Completed infusion; IV Intake: cc3 1000ml 00:44 Drug: NS 0.9% 1000 ml Route: IV; Rate: 75 ml/hr; Site: right forearm; cc3 01:00 Follow up: Response: No adverse reaction; IV Status: Infusion continued upon admission cc3 Disposition: 19:00 Co-signature as Attending Physician, Bryon Rivera MD. rn Disposition: 11/22/18 00:23 Hospitalization ordered by Eliud Guillen for Observation. Preliminary diagnosis are Altered mental status, unspecified, Adverse effect of amphetamines, Adverse effect of benzodiazepines. - Bed requested for [facility] ER HOLD. - Status is Observation. cc3 - Condition is Stable. - Problem is new. - Symptoms are unchanged. UTI on Admission? No Signatures: Dispatcher [facility] Bety Mcneil RN RN mw Nieto, Roman, MD MD rn Roszak, Josh, [employer] jr8 Josiane Joe cc3 Corrections: (The following items were deleted from the chart) 00:34 00:23 Hospitalization Ordered by Eliud Guillen MD for Observation. Preliminary mw diagnosis is Altered mental status, unspecified; Adverse effect of amphetamines; Adverse effect of benzodiazepines. Bed requested for Telemetry/MedSurg (observation). Status is Observation. Condition is Stable. Problem is new. Symptoms are unchanged. UTI on Admission? No. jr8 00:34 00:34 11/22/2018 00:23 Hospitalization Ordered by Eliud Guillen MD for Observation. mw Preliminary diagnosis is Altered mental status, unspecified; Adverse effect of amphetamines; Adverse effect of benzodiazepines. Bed requested for [facility] ER HOLD. Status is Observation. Condition is Stable. Problem is new. Symptoms are unchanged. UTI on Admission? No. mw 07:00 00:34 11/22/2018 00:23 Hospitalization Ordered by Eliud Guillen MD for Observation. cc3 Preliminary diagnosis is Altered mental status, unspecified; Adverse effect of amphetamines; Adverse effect of benzodiazepines. Bed requested for [facility] ER HOLD. Status is Observation. Condition is Stable. Problem is new. Symptoms are unchanged. UTI on Admission? No. mw
[2018-11-22 00:32] LABS: Urine Blood NEGATIVE (NEG); Urine Glucose NEGATIVE (NEG); Urine Protein NEGATIVE (NEG); Urine Specific Gravity 1.025 (1.005-1.030); Urine pH 6.5 (5.0-7.0)
--- NOTE | 2018-11-22 01:11 | P.HP ---
Certification for Inpatient Patient admitted to: Observation With expected LOS: <2 Midnights Practitioner: I am a practitioner with admitting privileges, knowledge of patient current condition, hospital course, and medical plan of care. Services: Services provided to patient in accordance with Admission requirements found in Title 42 Section 412.3 of the Code of Federal Regulations Patient History Date of Service: 11/22/18 Reason for admission: acute encephalopathy History of Present Illness: Ms Pradhan is a 58 years old woman with multiple medical problems including ADD/ ADHD medicated with methamphetamines, who was found on the floor by her mother last night around 8:30 PM. 911 was called, when EMS arrived, the patient was alert, and actually she become agitated. She received 2 mg of IV Ativan and was transferred to ED. No history of fever or chills. Her mother is concern about drug overdose, since her bottle of addrall, should have 60 pills, and were counted 52. She has history of drug overdose in the past. During her stay in ER she remain obtunded, not very arousable. Lab work remarkable for mild increased creatinine 1.32, normal WBC count. Allergies hydroxyzine HCl [From Vistaril] Allergy (Intermediate, Verified 08/12/12 20:37) Itching/Hives/Rash hydroxyzine pamoate [From Vistaril] Allergy (Intermediate, Verified 08/12/12 20: 37) Itching/Hives/Rash meloxicam [From Mobic] Allergy (Intermediate, Verified 08/12/12 20:37) Itching/Hives/Rash NSAIDS (Non-Steroidal Anti-Inflamma Allergy (Intermediate, Verified 08/12/12 20: 37) Nausea/Vomiting haloperidol [From Haldol] Allergy (Unverified 06/04/15 11:03) Unknown haloperidol lactate [From Haldol] Allergy (Unverified 06/04/15 11:03) Unknown hydroxyzine [From Vistaril] Allergy (Unverified 03/28/16 02:16) Unknown ibuprofen [From Motrin] Allergy (Unverified 06/04/15 11:04) Unknown nalbuphine HCl [From Nubain] Allergy (Unverified 06/04/15 11:04) Unknown naproxen [From Naprosyn] Allergy (Unverified 06/04/15 11:04) Unknown naproxen sodium [From Aleve] Allergy (Unverified 06/04/15 11:03) Unknown pregabalin [From Lyrica] Allergy (Unverified 03/28/16 02:16) Unknown miller Allergy (Uncoded 08/19/17 11:40) Unknown Sunitha Allergy (Uncoded 08/19/17 11:40) Unknown NSAIDS Allergy (Uncoded 08/19/17 11:40) Unknown NSAIDS (No Allergy (Uncoded 11/11/15 18:48) Unknown NSAIDS (Non-Stero Allergy (Uncoded 03/28/16 02:16) Unknown Home medications list reviewed: Yes - Past Medical/Surgical History -: ADD/ADHD -: chronic pain syndrome -: resless leg syndrome -: feet fracture - Family History Family History: Reviewed- Non-Contributory - Social History Alcohol use: No CD- Drugs: No Place of Residence: Home Review of Systems 10-point ROS is otherwise unremarkable Physical Examination - Physical Exam General: Other (obtunded) HEENT: Atraumatic, PERRLA, Sclerae nonicteric Neck: Supple, 2+ carotid pulse no bruit, No LAD, Without JVD or thyroid abnormality Respiratory: Clear to auscultation bilaterally, Normal air movement Cardiovascular: Regular rate/rhythm, Normal S1 S2 Gastrointestinal: Normal bowel sounds, No tenderness Musculoskeletal: No tenderness Integumentary: No rashes Neurological: Normal tone, Sensation intact Lymphatics: No axilla or inguinal lymphadenopathy - Studies Laboratory Data (last 24 hrs) 11/21/18 22:30: PT 13.2 H, INR 1.12, APTT 26.8 11/21/18 22:30: WBC 9.2, Hgb 11.9 L, Hct 35.2 L, Plt Count 543 H 11/21/18 22:30: Sodium 141, Potassium 4.1, BUN 25 H, Creatinine 1.32 H, Glucose 155 H, Total Bilirubin 0.3, AST 23, ALT 22, Alkaline Phosphatase 121 H Assessment and Plan - Problems (Diagnosis) (1) Acute encephalopathy Current Visit: Yes Status: Acute (2) ADD (attention deficit disorder) Current Visit: Yes Status: Acute Qualifiers: Hyperactivity presence: present Attention deficit-hyperactivity disorder type: unspecified Qualified Code(s): F90.9 - Attention-deficit hyperactivity disorder, unspecified type (3) Chronic pain Current Visit: Yes Status: Acute Qualifiers: Chronic pain type: chronic pain syndrome Qualified Code(s): G89.4 - Chronic pain syndrome - Plan The patient will be admitted to the hospital due to acute encephalopathy. There is a suspicious for drug overdose. Will order CT head. Continue IV fluids, fall precaution. - Advance Directives Does patient have a Living Will: No Does patient have a Durable POA for Healthcare: No - Code Status/Comfort Care Code Status Assessed: Yes Code Status: Full Code
[2018-11-22 03:29] VITALS: O2SAT 100; BMI 19.5
[2018-11-22 04:03] VITALS: BP 135/55
--- NOTE | 2018-11-22 06:09 | P.DS ---
Admission Date: 11/22/18 Discharge Date: 11/22/18 Disposition: ROUTINE DISCHARGE Discharge Condition: GOOD Reason for Admission: acute encephalopathy - Problems (1) Acute encephalopathy Current Visit: Yes Status: Acute (2) ADD (attention deficit disorder) Current Visit: Yes Status: Acute Qualifiers: Hyperactivity presence: present Attention deficit-hyperactivity disorder type: unspecified Qualified Code(s): F90.9 - Attention-deficit hyperactivity disorder, unspecified type (3) Chronic pain Current Visit: Yes Status: Acute Qualifiers: Chronic pain type: chronic pain syndrome Qualified Code(s): G89.4 - Chronic pain syndrome Brief History of Present Illness: Ms Pradhan is a 58 years old woman with multiple medical problems including ADD/ ADHD medicated with methamphetamines, who was found on the floor by her mother last night around 8:30 PM. 911 was called, when EMS arrived, the patient was alert, and actually she become agitated. She received 2 mg of IV Ativan and was transferred to ED. No history of fever or chills. Her mother is concern about drug overdose, since her bottle of addrall, should have 60 pills, and were counted 52. She has history of drug overdose in the past. During her stay in ER she remain obtunded, not very arousable. Lab work remarkable for mild increased creatinine 1.32, normal WBC count. Hospital Course: The patient was admitted to the hospital due to acute encephalopathy. CT head shows no acute abnormalities, no metabolic abnormalities found on lab work either. Over her stay in the hospital, the patient improves her level of conscious, she is actually alert and oriented x 3. She states that did not take more medication than usual, however her mother said that she does that all the time. The patient is clinically stable to be discharged home. Will resume her home medication, follow up with PCP in 1-2 days. Vital Signs/Physical Exam: Temp Pulse Resp BP Pulse Ox 64 17 135/55 L 100 11/22/18 04:00 11/22/18 04:00 11/22/18 04:00 11/22/18 04:00 General: Alert, In no apparent distress, Oriented x3 HEENT: Atraumatic, PERRLA, EOMI Neck: Supple, JVD not distended Respiratory: Clear to auscultation bilaterally, Normal air movement Cardiovascular: Regular rate/rhythm, Normal S1 S2 Gastrointestinal: Normal bowel sounds, No tenderness Musculoskeletal: No tenderness Integumentary: No rashes Neurological: Normal speech, Normal tone, Normal affect Laboratory Data at Discharge: WBC 9.2 K/uL (4.3-10.9) 11/21/18 22:30 Hgb 11.9 g/dL (12.0-15.0) L 11/21/18 22:30 Hct 35.2 % (36.0-45.0) L 11/21/18 22:30 Plt Count 543 K/uL (152-406) H 11/21/18 22:30 PT 13.2 SECONDS (9.5-12.5) H 11/21/18 22:30 INR 1.12 11/21/18 22:30 APTT 26.8 SECONDS (24.3-36.9) 11/21/18 22:30 Sodium 141 mmol/L (136-145) 11/21/18 22:30 Potassium 4.1 mmol/L (3.5-5.1) 11/21/18 22:30 BUN 25 mg/dL (7-18) H 11/21/18 22:30 Creatinine 1.32 mg/dL (0.55-1.3) H 11/21/18 22:30 Glucose 155 mg/dL (74-106) H 11/21/18 22:30 Total Bilirubin 0.3 mg/dL (0.2-1.0) 11/21/18 22:30 AST 23 U/L (15-37) 11/21/18 22:30 ALT 22 U/L (12-78) 11/21/18 22:30 Alkaline Phosphatase 121 U/L (45-117) H 11/21/18 22:30 Diet: Regular Activity: Fall precautions Followup: Basil Pace MD [ACTIVE - CAN ADMIT] - Time spent managing pt's care (in minutes): 40
--- NOTE | 2018-11-22 06:17 | EKG ---
Test Date: 2018-11-21 Test Time: 21:33:27 [employer] Agent: ADITYA MEASUREMENT RESULTS: Intervals: Rate: 88 VT: 126 QRSD: 92 QT: 390 QTc: 471 [place]: P: 54 VT: 126 QRS: 65 T: 34 INTERPRETIVE STATEMENTS: Normal sinus rhythm Normal ECG Compared to ECG 05/29/2018 00:18:34 No significant changes Electronically Signed On 11-22-18 06:16:41 CDT by Wale Loja
[2018-11-22 06:20] LABS: Potassium 3.8 mmol/L (3.5-5.1)
[2018-11-22 09:27] VITALS: TEMP 97.8
--- NOTE | 2018-11-22 10:57 | RAD REPORT ---
EXAM DESCRIPTION: CT - Head Brain Wo Cont - 11/22/2018 2:28 am CLINICAL HISTORY: AMS COMPARISON: None available TECHNIQUE: Axial CT of the head obtained from the skull apex to the skull base without contrast. FINDINGS: No acute intracranial hemorrhage identified. No mass, mass effect, shift of the midline, a bnormal extra-axial fluid collection or CT evidence of acute ischemic change identified. The ventricu lar system is unremarkable. No acute abnormalities of the supratentorial white matter, basal gangli a, cerebellum, or brainstem. Opacities in the left maxillary sinus. Mastoid air cells are well aerated. No skull fracture identifi ed. Visualized orbits and globes are unremarkable. DLP: 07 mGy-cm IMPRESSION: 1. No acute intracranial abnormality identified. This exam was performed according to our departmental dose-optimization program, which includes autom ated exposure control, adjustment of the mA and/or kV according to patient size and/or use of iterati ve reconstruction technique. Electronically signed by: Emory Brennan 11/22/2018 2:25 AM CDT Due to temporary technical issues with the PACS/Fluency reporting system, reports are being signed by the in house radiologist as a courtesy to ensure prompt reporting. The interpreting radiologist is f ully responsible for the content of the report.
== END ==
LOC: ER 21:10 → UNDOADMOB 11-22 01:51 → ERHOLD 11-22 01:51 → UNDODISOB 11-22 06:27
DX: G93.40 Encephalopathy, unspecified (principal); T43.625A Adverse effect of amphetamines, initial encounter; T42.4X5A Adverse effect of benzodiazepines, initial encounter; F41.9 Anxiety disorder, unspecified; F90.9 Attention-deficit hyperactivity disorder, unspecified type; G89.29 Other chronic pain; G89.4 Chronic pain syndrome; Z88.5 Allergy status to narcotic agent; Z88.6 Allergy status to analgesic agent; Z88.8 Allergy status to other drugs, medicaments and biological substances
CPT/HCPCS: 36415; 70450; 80048; 80076; 80307; 80320; 80329; 81003; 85025; 85610; 85730; 93005; 96360; 99284

== ENCOUNTER 2019-04-09 01:00 | Emergency (ER) | payer OTHER ==
[2019-04-09] MEDS ORDERED: NALOXONE 0.4 MG/ML VIAL ONE (01:58)
[2019-04-09 02:56] LABS: Protime INR 0.99
[2019-04-09 02:59] LABS: Absolute Lymphocytes (CBC) 3.1 K/uL (0.7-4.9); Basophils % 1.4 % (0-1.3); Hematocrit 32.8 % (36.0-45.0); Lymphocytes % 27.7 % (15.3-44.8); MPV 8.8 fL (7.6-11.3); RBC Red Blood Cell Count 3.95 M/uL (3.86-4.86)
[2019-04-09 04:40] LABS: ALT/SGPT 22 U/L (12-78); AST/SGOT 22 U/L (15-37); Albumin 3.3 g/dL (3.4-5.0); Alkaline Phosphatase 96 U/L (45-117); BUN Blood Urea Nitrogen 28 mg/dL (7-18); Bicarbonate 26 mmol/L (21-32); Bilirubin Direct < 0.1 mg/dL (0-0.2); Bilirubin Total 0.3 mg/dL (0.2-1.0); Glucose Level 110 mg/dL (74-106); Magnesium 1.7 mg/dL (1.8-2.4); NT PRO-BNP 55 pg/mL (<125); Potassium 4.2 mmol/L (3.5-5.1); Sodium Level 139 mmol/L (136-145); Troponin (Emerg Dept Use Only) < 0.02 ng/mL (0.0-0.045)
--- NOTE | 2019-04-09 04:54 | EDPHYS ---
Physician Documentation [facility] Name: Martha Pradhan Age: 58 yrs Sex: Female : 1960 Arrival Date: 04/09/2019 Time: 01:01 Bed 17 Private MD: ED Physician Pradip Ramírez HPI: 04/09 03:14 This 58 yrs old Female presents to ER via EMS with complaints of Lethargy. tw4 03:14 The patient presents with decreased mental status, decreased responsiveness. Onset: The tw4 symptoms/episode began/occurred today. Associated signs and symptoms: The patient has no apparent associated signs or symptoms. Patient's baseline: Neuro: alert and fully oriented, Motor: no deficits, Ambulation: walks without assistance. The patient has not experienced similar symptoms in the past. Historical: - Allergies: 00:50 haloperidol lactate; cc3 00:50 hydroxyzine HCl; cc3 00:50 Hydroxyzine Pamoate; cc3 00:50 Ibuprofen; cc3 00:50 Lyrica; cc3 00:50 meloxicam; cc3 00:50 nalbuphine HCl; cc3 00:50 Naproxen; cc3 00:50 Naproxen Sodium; cc3 00:50 NSAIDS (Non-Steroidal Anti-Inflammatory Drug); cc3 00:50 Vistaril; cc3 - Home Meds: 00:50 Adderall XR 30 mg Oral cp24 2x daily [Active]; Bentyl Oral [Active]; fentanyl 50 mcg/hr cc3 Topical pt72 1 patch every 72 hours [Active]; Klonopin 1 mg Oral tab 1 tab 3 times per day [Active]; metoprolol tartrate 50 mg Oral tab 1 tab 3 times per day [Active]; Omeprazole Oral [Active]; Premarin 1.25 mg Oral tab 1 tab once daily [Active]; - PMHx: 00:50 ADD/ADHD; Anxiety; Arthritis; Back pain; Chronic pain; Irritable bowel syndrome; cc3 Osteoporosis; restless leg syndrome; Tachycardia; - Immunization history:: Adult Immunizations up to date. - Social history:: Smoking status: Patient/guardian denies using tobacco, never smoked. - Ebola Screening: : No symptoms or risks identified at this time. ROS: 03:14 Constitutional: Negative for fever, chills, and weight loss, Eyes: Negative for injury, tw4 pain, redness, and discharge, Cardiovascular: Negative for chest pain, palpitations, and edema, Respiratory: Negative for shortness of breath, cough, wheezing, and pleuritic chest pain, Abdomen/GI: Negative for abdominal pain, nausea, vomiting, diarrhea, and constipation, Back: Negative for injury and pain, MS/Extremity: Negative for injury and deformity, Skin: Negative for injury, rash, and discoloration. 03:14 Neuro: Positive for altered mental status, Negative for dizziness, gait disturbance, speech changes, syncope, near syncope, tingling, tinnitus, tremor. Exam: 03:14 Constitutional: This is a well developed, well nourished patient who is awake, alert, tw4 and in no acute distress. Head/Face: Normocephalic, atraumatic. Chest/axilla: Normal chest wall appearance and motion. Nontender with no deformity. No lesions are appreciated. Cardiovascular: Regular rate and rhythm with a normal S1 and S2. No gallops, murmurs, or rubs. Normal PMI, no JVD. No pulse deficits. Respiratory: Lungs have equal breath sounds bilaterally, clear to auscultation and percussion. No rales, rhonchi or wheezes noted. No increased work of breathing, no retractions or nasal flaring. Abdomen/GI: Soft, non-tender, with normal bowel sounds. No distension or tympany. No guarding or rebound. No evidence of tenderness throughout. Back: No spinal tenderness. No costovertebral tenderness. Full range of motion. MS/ Extremity: Pulses equal, no cyanosis. Neurovascular intact. Full, normal range of motion. 03:14 Neuro: Orientation: to person, place \T\ time. Mentation: slow to respond, somnolent, Memory: is normal. Vital Signs: 00:50 BP 116 / 55; Pulse 69; Resp 11 S; Temp 97.8(TE); Pulse Ox 100% on R/A; Weight 49.9 kg cc3 (R); Height 5 ft. 1 in. (154.94 cm) (R); Pain 0/10; 01:49 BP 93 / 53; Pulse 72; Resp 12 S; Pulse Ox 100% on R/A; cc3 02:15 BP 113 / 56; Pulse 82; Resp 11 S; Pulse Ox 100% on R/A; cc3 03:10 BP 106 / 47; Pulse 83; Resp 12 S; Pulse Ox 100% on R/A; cc3 04:33 BP 126 / 57; Pulse 76; Resp 14 S; Pulse Ox 100% on R/A; Pain 0/10; cc3 05:28 BP 112 / 41; Pulse 70; Resp 13 S; Pulse Ox 100% on R/A; cc3 06:00 BP 101 / 59; Pulse 73; Resp 15 S; Pulse Ox 100% on R/A; Pain 0/10; cc3 00:50 Body Mass Index 20.78 (49.90 kg, 154.94 cm) cc3 MDM: 01:14 Patient medically screened. tw4 04/10 01:54 Data reviewed: vital signs, EMS record. Counseling: I had a detailed discussion with [facility] the patient and/or guardian regarding: the historical points, exam findings, and any diagnostic results supporting the discharge/admit diagnosis. 01:56 Differential Diagnosis: CVA, electrolyte abnormality. Data interpreted: Pulse oximetry: tw4 Interpretation: normal. Medication response: after Narcan, the patient wakes to full consciousness. The symptoms have resolved. Response to treatment: and as a result, I will discharge patient. Special discussion: I discussed with the patient/guardian in detail that at this point there is no indication for admission to the hospital. It is understood, however, that if the symptoms persist or worsen the patient needs to return immediately for re-evaluation. 04/09 01:15 Order name: Basic Metabolic Panel; Complete Time: 04:51 tw4 04/09 04:51 Interpretation: Normal except: GLUC 110; GFR 68. tw4 04/09 01:15 Order name: CBC with Diff; Complete Time: 03:22 tw4 04/09 03:22 Interpretation: Normal except: WBC 11.2; HGB 10.9; HCT 32.8; PLT 520; RDW 16.4; MN% tw4 12.9; BASO% 1.4; MNA 1.4. 04/09 01:15 Order name: LFT's; Complete Time: 04:51 tw4 04/09 04:52 Interpretation: Normal except: ALB 3.3; GLOB 3.7; A/G 0.9. tw4 04/09 01:15 Order name: Magnesium; Complete Time: 04:51 04/09 04:52 Interpretation: Within normal limits: MG 1.7. 04/09 01:15 Order name: NT PRO-BNP; Complete Time: 04:51 04/09 04:52 Interpretation: Within normal limits: NT PRO-BNP 55. 04/09 01:15 Order name: PT-INR; Complete Time: 03:22 04/09 01:15 Order name: Troponin (emerg Dept Use Only); Complete Time: 04:51 04/09 04:52 Interpretation: Within normal limits: TROPED < 0.02. 04/09 01:15 Order name: XRAY Chest (1 view) 04/09 01:15 Order name: EKG; Complete Time: 01:16 04/09 01:15 Order name: Cardiac monitoring; Complete Time: 01:24 04/09 01:15 Order name: EKG - Nurse/Tech; Complete Time: 02:08 04/09 01:15 Order name: CT Head Brain wo Cont 04/09 01:15 Order name: IV Saline Lock; Complete Time: 01:24 04/09 01:15 Order name: Labs collected and sent; Complete Time: 02:56 04/09 01:15 Order name: O2 Per Protocol; Complete Time: 01:24 04/09 01:15 Order name: O2 Sat Monitoring; Complete Time: 01:24 Administered Medications: 04/09 01:58 Drug: NARcan 0.4 mg Route: IVP; Site: left antecubital; aa1 02:05 Follow up: Response: No adverse reaction cc3 Disposition: 04/09/19 04:53 Discharged to Home. Impression: Opioid dependence with intoxication delirium, Adverse effect of other synthetic narcotics, Altered mental status, unspecified. - Condition is Stable. - Discharge Instructions: Chemical Dependency, Opioid Overdose, Delirium. - Medication Reconciliation Form, Thank You Letter, Antibiotic Education, Prescription Opioid Use form. - Follow up: Private Physician; When: Upon discharge from the Emergency Department; Reason: Recheck today's complaints, Continuance of care. - Problem is new. - Symptoms have improved. Signatures: Dispatcher [employer] Nancy Sheets, RN RN aa1 Pradip Ramírez MD MD tw4 Josiane Joe cc3 Corrections: (The following items were deleted from the chart) 04:46 03:43 Arterial Blood Gas+RC.LAB.BRZ ordered. EDMS EDMS 06:17 04:53 04/09/2019 04:53 Discharged to Home. Impression: Opioid dependence with cc3 intoxication delirium; Adverse effect of other synthetic narcotics; Altered mental status, unspecified. Condition is Stable. Forms are Medication Reconciliation Form, Thank You Letter, Antibiotic Education, Prescription Opioid Use. Follow up: Private Physician; When: Upon discharge from the Emergency Department; Reason: Recheck today's complaints, Continuance of care. Problem is new. Symptoms have improved. tw4
--- NOTE | 2019-04-09 04:54 | ER ---
Nurse's Notes [facility] Name: Martha Pradhan Age: 58 yrs Sex: Female : 1960 Arrival Date: 04/09/2019 Time: 01:01 Bed 17 Private MD: Diagnosis: Opioid dependence with intoxication delirium;Adverse effect of other synthetic narcotics;Altered mental status, unspecified Presentation: 04/09 00:50 Presenting complaint: EMS states: "We were called for unresponsiveness the patient's cc3 family said she was just eating when all of a sudden she became unconscious and duck her face on her bowl of soup. Family said she was like in a deep sleep for 20 minutes. When we arrived, she was in deep sleep on their couch and when we were transferring her to the stretcher she woke up with A\\T\\O X3, no weakness and no deficits. She has Fentanyl patch on her abdomen when we came and we removed it already" Patient denies alcohol intake tonight. Transition of care: patient was not received from another setting of care. Onset of symptoms was April 09, 2019. Risk Assessment: Do you want to hurt yourself or someone else? Patient reports no desire to harm self or others. Initial Sepsis Screen: Does the patient meet any 2 criteria? Altered Mental Status. No. Patient's initial sepsis screen is negative. Does the patient have a suspected source of infection? No. Patient's initial sepsis screen is negative. Care prior to arrival: NS started by EMS to keep vein open. 00:50 Method Of Arrival: EMS: [facility] cc3 00:50 Acuity: ROSALBA 2 cc3 Triage Assessment: 00:50 General: Appears in no apparent distress. comfortable, lethargic. Behavior is calm, cc3 drowsy, lethargic. Pain: Denies pain. EENT: No signs and/or symptoms were reported regarding the EENT system. Neuro: Level of Consciousness is lethargic, Oriented to person, place, time, Multicultural Manager are equal bilaterally Moves all extremities. Speech is normal, Facial symmetry appears normal, Pupils are constricted, Intact. Cardiovascular: Denies chest pain, Heart tones S1 S2 present Capillary refill < 3 seconds in bilateral fingers Patient's skin is warm and dry. Respiratory: Airway is patent Respiratory effort is even, unlabored, Respiratory pattern is regular, symmetrical. GI: Abdomen is flat, Bowel sounds present X 4 quads. Abd is soft and non tender X 4 quads. : No signs and/or symptoms were reported regarding the genitourinary system. Derm: Skin is intact, is thin, Skin is pink, warm \\T\\ dry. normal. Musculoskeletal: Circulation, motion, and sensation intact. Range of motion: intact in all extremities. Historical: - Allergies: 00:50 haloperidol lactate; cc3 00:50 hydroxyzine HCl; cc3 00:50 Hydroxyzine Pamoate; cc3 00:50 Ibuprofen; cc3 00:50 Lyrica; cc3 00:50 meloxicam; cc3 00:50 nalbuphine HCl; cc3 00:50 Naproxen; cc3 00:50 Naproxen Sodium; cc3 00:50 NSAIDS (Non-Steroidal Anti-Inflammatory Drug); cc3 00:50 Vistaril; cc3 - Home Meds: 00:50 Adderall XR 30 mg Oral cp24 2x daily [Active]; Bentyl Oral [Active]; fentanyl 50 mcg/hr cc3 Topical pt72 1 patch every 72 hours [Active]; Klonopin 1 mg Oral tab 1 tab 3 times per day [Active]; metoprolol tartrate 50 mg Oral tab 1 tab 3 times per day [Active]; Omeprazole Oral [Active]; Premarin 1.25 mg Oral tab 1 tab once daily [Active]; - PMHx: 00:50 ADD/ADHD; Anxiety; Arthritis; Back pain; Chronic pain; Irritable bowel syndrome; cc3 Osteoporosis; restless leg syndrome; Tachycardia; - Immunization history:: Adult Immunizations up to date. - Social history:: Smoking status: Patient/guardian denies using tobacco, never smoked. - Ebola Screening: : No symptoms or risks identified at this time. Screenin:50 Abuse screen: Denies threats or abuse. Denies injuries from another. Nutritional cc3 screening: No deficits noted. Tuberculosis screening: No symptoms or risk factors identified. Fall Risk Ambulatory Aid- None/Bed Rest/Nurse Assist (0 pts). Gait- Normal/Bed Rest/Wheelchair (0 pts) Mental Status- Overestimates/Forgets Limitations (15 pts.). Assessment: 00:50 General: see triage assessment. cc3 01:15 Reassessment: No changes from previously documented assessment. Patient taken to CT cc3 scan department by the machine maintenance technician by katie. 01:35 Reassessment: Patient came back from CT scan department, awaiting result. cc3 02:00 Reassessment: Patient appears in no apparent distress at this time. Patient is alert, cc3 oriented x 3, equal unlabored respirations, skin warm/dry/pink. After patient received the intravenous Narcan, she kept shouting and telling that she has abdominal pain. Dr. Ramírez informed. 02:15 Reassessment: Patient appears in no apparent distress at this time. Patient and/or cc3 family updated on plan of care and expected duration. Pain level reassessed. Laboratory staff Ramana came to do phlebotomy for the patient. 03:05 Reassessment: Patient appears in no apparent distress at this time. information systems technician Adal cc3 called and said lab for green tube was hemolyzed. In[facility] again to draw the repeat bloodworks. 03:30 Reassessment: Called lab to do repeat blood work but lab staff Ramana said she cc3 already stuck the patient 4 times so she's not allowed to stuck her some more, Dr. Ramírez and charge nurse Florina informed. Dr. Ramírez tried to stick the patient but he failed. Patient becoming anxious and wanting to leave the hospital and she's telling that she refuses medical treatment, Dr. Ramírez and charge nurse Florina aware. 03:50 Reassessment: Called the patient's mother Leidy Baldwin at [phone] that patient is cc3 here in the ER and she's wanting to leave but we cannot let her leave by herself alone and the mother said she's coming. 04:00 Reassessment: Patient appears in no apparent distress at this time. Patient and/or cc3 family updated on plan of care and expected duration. Pain level reassessed. Patient is alert, oriented x 3, equal unlabored respirations, skin warm/dry/pink. Patient pulled out her IV cannula. Lab staff Ramana came and got blood sample for the repeat blood work. 04:15 Reassessment: Patient passed stool on herself and on the floor. Assisted the patient to cc3 the bedside commode to urinate and assisted the patient to clean herself. 05:00 Reassessment: Patient appears in no apparent distress at this time. Patient and/or cc3 family updated on plan of care and expected duration. Pain level reassessed. Patient is alert, oriented x 3, equal unlabored respirations, skin warm/dry/pink. Called again the patient's mother on the number [phone] and informed her that the patient is discharged home just waiting for her to come and fetch the patient. Patient's mother said she's on her way. Patient denies pain at this time. 06:10 Reassessment: Patient appears in no apparent distress at this time. Patient and/or cc3 family updated on plan of care and expected duration. Pain level reassessed. Patient is alert, oriented x 3, equal unlabored respirations, skin warm/dry/pink. Patient's mother came. Discharge instructions given to patient. Patient left ER vitally stable and ambulatory with her mother. No valuables left in the patient's room. Patient denies pain at this time. Patient states feeling better. Patient states symptoms have improved. Vital Signs: 00:50 BP 116 / 55; Pulse 69; Resp 11 S; Temp 97.8(TE); Pulse Ox 100% on R/A; Weight 49.9 kg cc3 (R); Height 5 ft. 1 in. (154.94 cm) (R); Pain 0/10; 01:49 BP 93 / 53; Pulse 72; Resp 12 S; Pulse Ox 100% on R/A; cc3 02:15 BP 113 / 56; Pulse 82; Resp 11 S; Pulse Ox 100% on R/A; cc3 03:10 BP 106 / 47; Pulse 83; Resp 12 S; Pulse Ox 100% on R/A; cc3 04:33 BP 126 / 57; Pulse 76; Resp 14 S; Pulse Ox 100% on R/A; Pain 0/10; cc3 05:28 BP 112 / 41; Pulse 70; Resp 13 S; Pulse Ox 100% on R/A; cc3 06:00 BP 101 / 59; Pulse 73; Resp 15 S; Pulse Ox 100% on R/A; Pain 0/10; cc3 00:50 Body Mass Index 20.78 (49.90 kg, 154.94 cm) 3 ED Course: 00:50 Placed in gown. Bed in low position. Call light in reach. Side rails up X2. Cardiac cc3 monitor on. Pulse ox on. NIBP on. 00:50 Arm band placed on right wrist. EKG completed in triage. Results shown to MD. cc3 00:50 Maintain EMS IV. Dressing intact. Site clean \\T\\ dry. Gauge \\T\\ site: gauge 20 left ACV. cc 3 01:01 Patient arrived in ED. ds1 01:09 Josiane Joe is Primary Nurse. cc3 01:14 Pradip Ramírez MD is Attending Physician. tw4 01:22 Triage completed. cc3 01:41 CT Head Brain wo Cont In Process Unspecified. EDMS 01:56 XRAY Chest (1 view) In Process Unspecified. EDMS 04:00 IV discontinued, intact, bleeding controlled, No redness/swelling at site. Pressure cc3 dressing applied, patient intentionally pulled out her IV cannula. 06:10 No provider procedures requiring assistance completed. cc3 Administered Medications: 01:58 Drug: NARcan 0.4 mg Route: IVP; Site: left antecubital; aa1 02:05 Follow up: Response: No adverse reaction cc3 Outcome: 04:53 Discharge ordered by MD. tw4 06:10 Discharged to home ambulatory, with family. cc3 06:10 Condition: stable 06:10 Discharge instructions given to patient, Instructed on discharge instructions, follow up and referral plans. Demonstrated understanding of instructions, follow-up care. 06:17 Patient left the ED. cc3 Signatures: Dispatcher [employer] EDNancy Brody RN RN aa1 Deisy Saunders ds1 Pradip Ramírez MD MD tw4 Josiane Joe cc3 Corrections: (The following items were deleted from the chart) 03:09 01:15 Reassessment: Patient taken to CT scan department by the machine maintenance technician by kaite. cc3 cc3 04:17 03:30 Reassessment: Called lab to do repeat blood work but lab staff Ramana said she cc3 already stuck the patient 4 times so she's not allowed to stuck her some more, Dr. Ramírez and charge nurse Florina informed. Dr. Ramírez tried to stick the patient but he failed. cc3
[2019-04-09 06:22] VITALS: O2SAT 100
[2019-04-09 06:28] VITALS: BP 112/41
--- NOTE | 2019-04-09 07:50 | EKG ---
Test Date: 2019-04-09 Test Time: 01:45:55 Retread Builder: MELISSA MEASUREMENT RESULTS: Intervals: Rate: 71 CA: 156 QRSD: 86 QT: 426 QTc: 462 [place]: P: 57 CA: 156 QRS: 46 T: 40 INTERPRETIVE STATEMENTS: Normal sinus rhythm Normal ECG Compared to ECG 11/21/2018 21:33:27 No significant changes Electronically Signed On 04-09-19 07:49:23 CDT by Wale Loja
--- NOTE | 2019-04-09 08:13 | RAD REPORT ---
EXAM DESCRIPTION: RAD - Chest Single View - 04/09/2019 1:56 am CLINICAL HISTORY: CHEST PAIN Chest pain. COMPARISON: Chest Single View dated 05/29/2018 FINDINGS: Portable technique limits examination quality. The lungs are grossly clear. Right apex is obscured by the patient's chain. The heart is normal in si ze.Left clavicular hardware seen. IMPRESSION: No acute intrathoracic process suspected.
--- NOTE | 2019-04-09 10:58 | RAD REPORT ---
EXAM DESCRIPTION: CT Head Without Intravenous Contrast CLINICAL HISTORY: The patient is 58 years old and is Female; DECLINING STATE TECHNIQUE: Axial computed tomography images of the head/brain without intravenous contrast. Sagitt al and coronal reformatted images were created and reviewed. This CT exam was performed using one o r more of the following dose reduction techniques: automated exposure control, adjustment of the mA and/or kV according to patient size, and/or use of iterative reconstruction technique. COMPARISON: CT of the head November 22, 2018. FINDINGS: BRAIN: Unremarkable. The buchanan-white matter differentiation is preserved . No hemorrhag e. No significant white matter disease. No edema. No extra-axial fluid collections. VENTRICLES: Unremarkable. No ventriculomegaly. BONES/JOINTS: No acute fracture. SOFT TISSUES: Unremarkable. SINUSES: Unremarkable as visualized. No acute sinusitis. MASTOID AIR CELLS: Unremarkable as visualized. No mastoid effusion. ORBITS: Unremarkable as visualized. IMPRESSION: No acute intracranial findings. Electronically signed by: Aurora Killian MD 04/09/2019 1:52 AM CDT Due to temporary technical issues with the PACS/Fluency reporting system, reports are being signed by the in house radiologist as a courtesy to ensure prompt reporting. The interpreting radiologist is f ully responsible for the content of the report.
== END 2019-04-09 06:17 | disposition home or self-care (01) ==
LOC: ER 01:00
DX: F11.221 Opioid dependence with intoxication delirium (principal); T40.4X5A Adverse effect of other synthetic narcotics, initial encounter; F41.9 Anxiety disorder, unspecified; F90.9 Attention-deficit hyperactivity disorder, unspecified type; Z88.6 Allergy status to analgesic agent; Z88.8 Allergy status to other drugs, medicaments and biological substances
CPT/HCPCS: 93005; 85025; 80048; 36415; 83735; 85610; 80076; 84484; 83880; 70450; 71045; 96374; 99291; 99292; J2310

== ENCOUNTER 2019-06-20 23:59 | Emergency (ER) | payer OTHER ==
--- OUTSIDE RECORDS SUMMARY | 2019-06-21 00:01 | XMS REPORT ---
:1960 [facility] [address] [place] [id number] Care Team Providers Name Role Phone Unavailable Unavailable Unavailable Problems This patient has no known problems. Allergies, Adverse Reactions, Alerts This patient has no known allergies or adverse reactions. Medications This patient has no known medications.
[2019-06-21 01:14] LABS: Absolute Lymphocytes (CBC) 2.3 K/uL (0.7-4.9); Basophils % 1.2 % (0-1.3); Hematocrit 35.6 % (36.0-45.0); MPV 8.1 fL (7.6-11.3)
[2019-06-21 01:16] LABS: Protime INR 1.33
[2019-06-21 01:40] LABS: Albumin 3.7 g/dL (3.4-5.0); Bilirubin Direct 0.1 mg/dL (0-0.2); Bilirubin Total 0.3 mg/dL (0.2-1.0); Potassium 2.9 mmol/L (3.5-5.1); Protein, Total 8.8 g/dL (6.4-8.2)
[2019-06-21] MEDS ORDERED: NA CHLORIDE 0.9% 1,000 ML ONE (01:41)
--- NOTE | 2019-06-21 02:00 | ER ---
Nurse's Notes [facility] Name: Martha Pradhan Age: 58 yrs Sex: Female : 1960 Arrival Date: 06/21/2019 Time: 00:06 Bed 18 Private MD: Diagnosis: Alcohol abuse with intoxication;Dehydration Presentation: 06/21 00:09 Presenting complaint: EMS states: "her parents called for the pt tearing up the house. jd3 when we got there the pt was A\\T\\O X 3, but drowsy. we were told she took a lot of her hydrocodone pills. there is a bottle that was filled yesterday and out of the 40 pills 17 were missing. pt denies taking all of the medication, reporting she only took 1 pill 6 hours ago.". Transition of care: patient was not received from another setting of care. Onset of symptoms was June 21, 2019. Risk Assessment: Do you want to hurt yourself or someone else? Patient reports no desire to harm self or others. Initial Sepsis Screen: Does the patient meet any 2 criteria? No. Patient's initial sepsis screen is negative. Does the patient have a suspected source of infection? No. Patient's initial sepsis screen is negative. Note pt denies any SI thoughts. Care prior to arrival: None. 00:09 Method Of Arrival: EMS: [facility] jd3 00:09 Acuity: ROSALBA 2 jd3 Historical: - Allergies: 00:19 hydroxyzine HCl; jd3 00:19 Hydroxyzine Pamoate; jd3 00:19 Ibuprofen; jd3 00:19 Lyrica; jd3 00:19 meloxicam; jd3 00:19 nalbuphine HCl; jd3 00:19 Naproxen; jd3 00:19 Naproxen Sodium; jd3 00:19 NSAIDS (Non-Steroidal Anti-Inflammatory Drug); jd3 00:19 haloperidol lactate; jd3 00:19 Vistaril; jd3 - Home Meds: 00:19 Adderall XR 30 mg Oral cp24 2x daily [Active]; Bentyl Oral [Active]; fentanyl 50 mcg/hr jd3 Topical pt72 1 patch every 72 hours [Active]; Klonopin 1 mg Oral tab 1 tab 3 times per day [Active]; metoprolol tartrate 50 mg Oral tab 1 tab 3 times per day [Active]; Omeprazole Oral [Active]; Premarin 1.25 mg Oral tab 1 tab once daily [Active]; - PMHx: 00:19 Arthritis; restless leg syndrome; Osteoporosis; Chronic pain; Irritable bowel syndrome; jd3 Anxiety; Back pain; ADD/ADHD; Tachycardia; - Immunization history:: Adult Immunizations unknown. - Social history:: Smoking status: unknown. - Family history:: not pertinent. - Ebola Screening: : Patient negative for fever greater than or equal to 101.5 degrees Fahrenheit, and additional compatible Ebola Virus Disease symptoms. - Hospitalizations: : No recent hospitalization is reported. Screenin:16 Abuse screen: Denies threats or abuse. Nutritional screening: No deficits noted. jd3 Tuberculosis screening: No symptoms or risk factors identified. Fall Risk Ambulatory Aid- None/Bed Rest/Nurse Assist (0 pts). Gait- Weak (10 pts.). Mental Status- Overestimates/Forgets Limitations (15 pts.). Total Silva Fall Scale indicates Low Risk Score (25-44 pts). Fall prevention measures have been instituted. Side Rails Up X 2 Placed close to Nursing Station Frequent Obs/Assesments occuring. Assessment: 00:14 General: Appears in no apparent distress. comfortable, Behavior is cooperative, drowsy, jd3 quiet. Pain: Complains of pain in neck and back Quality of pain is described as aching. Neuro: Level of Consciousness is awake, obeys commands, confused, drowsy. Oriented to person, place, time, situation, Speech is slurred. Cardiovascular: Denies chest pain, Capillary refill < 3 seconds Patient's skin is warm and dry. Rhythm is regular. Respiratory: Airway is patent Respiratory effort is even, unlabored, Respiratory pattern is regular, symmetrical, Denies cough, shortness of breath. GI: No signs and/or symptoms were reported involving the gastrointestinal system. Patient currently denies nausea, vomiting. : No signs and/or symptoms were reported regarding the genitourinary system. EENT: No signs and/or symptoms were reported regarding the EENT system. Derm: Skin is intact, Skin is dry, Skin is normal, Skin temperature is warm. Musculoskeletal: Circulation, motion, and sensation intact. Range of motion: intact in all extremities. 00:58 Reassessment: Patient appears in no apparent distress at this time. No changes from jd3 previously documented assessment. Patient and/or family updated on plan of care and expected duration. Pain level reassessed. 01:33 Reassessment: Patient appears in no apparent distress at this time. No changes from jd3 previously documented assessment. Patient and/or family updated on plan of care and expected duration. Pain level reassessed. awaiting results. 02:27 Reassessment: Patient appears in no apparent distress at this time. Patient and/or jd3 family updated on plan of care and expected duration. Pain level reassessed. Patient is alert, oriented x 3, equal unlabored respirations, skin warm/dry/pink. hospitalist at bedside. pt appears less drowsy, alert. slurred speech noted still. 02:45 Reassessment: Dr. Rivera at bedside discussing plan of care with pt. pt refusing to be jd3 admitted after provider discussed possible outcomes at bedside. 02:55 Reassessment: Patient appears in no apparent distress at this time. Patient and/or jd3 family updated on plan of care and expected duration. Pain level reassessed. Patient is alert, oriented x 3, equal unlabored respirations, skin warm/dry/pink. A\\T\\O X 4. even and unlabored respirations. even and steady gait to phone to call for a ride. slurred speech still noted. pt alert and oriented. awaiting a ride for AMA. 03:45 Reassessment: Patient appears in no apparent distress at this time. No changes from jd3 previously documented assessment. Patient and/or family updated on plan of care and expected duration. Pain level reassessed. Patient is alert, oriented x 3, equal unlabored respirations, skin warm/dry/pink. 04:26 Reassessment: Patient appears in no apparent distress at this time. No changes from jd3 previously documented assessment. Patient and/or family updated on plan of care and expected duration. Pain level reassessed. Patient is alert, oriented x 3, equal unlabored respirations, skin warm/dry/pink. pt resting in bed with eyes closed, even and unlabored respirations. call hernández in reach. no signs of pain or distress noted at this time. 05:08 Reassessment: Patient appears in no apparent distress at this time. No changes from jd3 previously documented assessment. Patient and/or family updated on plan of care and expected duration. Pain level reassessed. Patient is alert, oriented x 3, equal unlabored respirations, skin warm/dry/pink. 06:02 Reassessment: Patient appears in no apparent distress at this time. Patient and/or jd3 family updated on plan of care and expected duration. Pain level reassessed. Patient is alert, oriented x 3, equal unlabored respirations, skin warm/dry/pink. pt ambulating to restroom and back to room with even and steady gait. pt informed of the potential problems of leaving again. pt signed AMA form, refusing to be admitted. awaiting ride. Vital Signs: 00:13 BP 110 / 52; Pulse 60; Resp 12 S; Temp 97.8(O); Pulse Ox 100% on R/A; Weight 52.16 kg jd3 (R); Height 5 ft. 0 in. (152.40 cm) (R); Pain 9/10; 00:58 BP 119 / 54; Pulse 91; Resp 13 S; Pulse Ox 100% on R/A; jd3 01:33 BP 96 / 46; Pulse 87; Resp 13 S; Pulse Ox 100% on R/A; jd3 02:28 BP 102 / 44; Pulse 90; Resp 13 S; Pulse Ox 100% on R/A; jd3 02:56 BP 144 / 76; Pulse 84; Resp 15 S; Pulse Ox 100% on R/A; jd3 04:28 BP 96 / 53; Pulse 66; Resp 14 S; Pulse Ox 100% on R/A; Pain 0/10; jd3 05:07 BP 99 / 58; Pulse 67; Resp 13 S; Pulse Ox 100% on R/A; jd3 06:04 BP 110 / 46; Pulse 68; Resp 15 S; Pulse Ox 100% on R/A; jd3 00:13 Body Mass Index 22.46 (52.16 kg, 152.40 cm) jd3 ED Course: 00:06 Patient arrived in ED. cl3 00:06 Bryon Rivera MD is Attending Physician. rn 00:08 South Bhardwaj RN is Primary Nurse. jd3 00:13 Triage completed. jd3 00:14 Arm band placed on. jd3 00:16 Patient has correct armband on for positive identification. Placed in gown. Bed in low jd3 position. Call light in reach. Side rails up X2. 00:33 EKG done, by ED staff, reviewed by Bryon Rivera MD. jd3 00:45 Inserted saline lock: 22 gauge in left antecubital area, using aseptic technique. Blood jd3 collected. placed by Florina MORRIS. 01:40 Notified ED physician of a critical lab result(s). K 2.9. lp1 01:58 Doni Ham is Hospitalizing Provider. rn 02:34 No provider procedures requiring assistance completed. jd3 03:59 XRAY Chest (1 view) In Process Unspecified. EDMS 07:11 Primary Nurse role handed off by South Bhardwaj RN sg 07:11 Alexandru Winters, RN is Primary Nurse. sg Administered Medications: 01:42 Drug: NS 0.9% 1000 ml Route: IV; Rate: 1 bolus; Site: left antecubital; jd3 02:55 Drug: Potassium Chloride 40 mEq Route: PO; jd3 03:42 Follow up: Response: No adverse reaction jd3 Outcome: 01:59 Decision to Hospitalize by Provider. rn 09:25 Patient left the ED. sg Signatures: Dispatcher [employer] EDWI Alexandru Winters, ALEXANDRA RN sg Bryon Rivera MD MD rn Pena, Laura, RN RN lp1 South Bhardwaj RN RN jd3 Lewis, Charde cl3 Corrections: (The following items were deleted from the chart) 00:19 00:14 Cardiovascular: Denies chest pain, Capillary refill < 3 seconds Patient's skin is jd3 warm and dry. jd3 00:59 00:14 Neuro: Level of Consciousness is awake, obeys commands, confused, drowsy. jd3 Oriented to person, place, time, jd3 01:00 00:14 Cardiovascular: Denies chest pain, Patient's skin is warm and dry. jd3 jd3 02:34 02:32 Reassessment: Dr. Rivera at bedside discussing plan of care with pt. jd3 jd3 04:28 00:14 Neuro: Level of Consciousness is awake, obeys commands, confused, drowsy. jd3 Oriented to person, place, time, Speech is slurred, jd3 04:28 00:58 Reassessment: Patient appears in no apparent distress at this time. No changes jd3 from previously documented assessment. Patient and/or family updated on plan of care and expected duration. Pain level reassessed. jd3 01:33 Reassessment: Patient appears in no apparent distress at this time. No changes jd3 from previously documented assessment. Patient and/or family updated on plan of care and expected duration. Pain level reassessed. awaiting results jd3 02:27 Reassessment: Patient appears in no apparent distress at this time. No changes jd3 from previously documented assessment. Patient and/or family updated on plan of care and expected duration. Pain level reassessed. hospitalist at bedside jd3 02:32 Reassessment: Dr. Rivera at bedside discussing plan of care with pt. pt refusing jd3 to be admitted after provider discussed possible outcomes at bedside. jd3 02:55 Reassessment: Patient appears in no apparent distress at this time. Patient jd3 and/or family updated on plan of care and expected duration. Pain level reassessed. Patient is alert, oriented x 3, equal unlabored respirations, skin warm/dry/pink. pt still appearing drowsy with slurred speech. A\\T\\O X 4. even and unlabored respirations. awaiting a ride for discharge. jd3 04: 04:28 BP 96 / 53; Pulse 66bpm; Resp 14bpm; Spontaneous; Pulse Ox 100% RA; jd3 jd3 30 04:26 Reassessment: Patient appears in no apparent distress at this time. No changes jd3 from previously documented assessment. Patient and/or family updated on plan of care and expected duration. Pain level reassessed. Patient is alert, oriented x 3, equal unlabored respirations, skin warm/dry/pink. jd3 05:07 02:32 Reassessment: Dr. Rivera at bedside discussing plan of care with pt. pt refusing jd3 to be admitted after provider discussed possible outcomes at bedside. jd3 06:37 06:04 BP 110 / 46; Pulse 68bpm; Resp 15bpm; Spontaneous; Pulse Ox 100% RA; jd3 jd3
--- NOTE | 2019-06-21 02:01 | EDPHYS ---
Physician Documentation [facility] Name: Martha Pradhan Age: 58 yrs Sex: Female : 1960 Arrival Date: 06/21/2019 Time: 00:06 Bed 18 Private MD: ED Physician Bryon Rivera HPI: 06/21 00:08 This 58 yrs old Female presents to ER via Unassigned with complaints of rn possible Overdose. 00:08 The patient presents to the emergency department with a possible overdose. Context: rn Method: the patient has a confirmed or suspected ingestion, Time: the patient's OD/poisoning occurred at an unknown time, the OD/poisoning occurred at at home. Severity of symptoms: At their worst the symptoms were mild in the emergency department the symptoms are unchanged. It is unknown whether or not the patient has had similar symptoms in the past. Per EMS report, patient's parents called 911 for concern of overdose, just had prescription norco 10-325 filled 2 days ago with quantity 40, now only 23 left in bottle. Patient insists that she only took 1 pill 6 hours ago. Not witnessed ingestion. Parents found bottle, counted it, and then called 911. Patient reports takes for chronic back pain. No other co-ingestion. . Historical: - Allergies: 00:19 hydroxyzine HCl; jd3 00:19 Hydroxyzine Pamoate; jd3 00:19 Ibuprofen; jd3 00:19 Lyrica; jd3 00:19 meloxicam; jd3 00:19 nalbuphine HCl; jd3 00:19 Naproxen; jd3 00:19 Naproxen Sodium; jd3 00:19 NSAIDS (Non-Steroidal Anti-Inflammatory Drug); jd3 00:19 haloperidol lactate; jd3 00:19 Vistaril; jd3 - Home Meds: 00:19 Adderall XR 30 mg Oral cp24 2x daily [Active]; Bentyl Oral [Active]; fentanyl 50 mcg/hr jd3 Topical pt72 1 patch every 72 hours [Active]; Klonopin 1 mg Oral tab 1 tab 3 times per day [Active]; metoprolol tartrate 50 mg Oral tab 1 tab 3 times per day [Active]; Omeprazole Oral [Active]; Premarin 1.25 mg Oral tab 1 tab once daily [Active]; - PMHx: 00:19 Arthritis; restless leg syndrome; Osteoporosis; Chronic pain; Irritable bowel syndrome; jd3 Anxiety; Back pain; ADD/ADHD; Tachycardia; - Immunization history:: Adult Immunizations unknown. - Social history:: Smoking status: unknown. - Family history:: not pertinent. - Ebola Screening: : Patient negative for fever greater than or equal to 101.5 degrees Fahrenheit, and additional compatible Ebola Virus Disease symptoms. - Hospitalizations: : No recent hospitalization is reported. ROS: 00:12 Constitutional: Negative for fever, chills, and weight loss, Eyes: Negative for injury, rn pain, redness, and discharge, Neck: Negative for injury, pain, and swelling, Cardiovascular: Negative for chest pain, palpitations, and edema, Respiratory: Negative for shortness of breath, cough, wheezing, and pleuritic chest pain, Abdomen/GI: Negative for abdominal pain, nausea, vomiting, diarrhea, and constipation, MS/Extremity: Negative for injury and deformity, Skin: Negative for injury, rash, and discoloration, Neuro: Negative for headache, weakness, numbness, tingling, and seizure. Exam: 00:12 Constitutional: Thin female, generalized malaise but responds to voice and follows rn commands. falls asleep during evlauation but protecting airway and awakens easily to voice. Head/Face: Normocephalic, atraumatic. Eyes: Pupils equal round and reactive to light, extra-ocular motions intact. ENT: dry MM Neck: Trachea midline, no thyromegaly or masses palpated, and no cervical lymphadenopathy. Supple, full range of motion without nuchal rigidity, or vertebral point tenderness. No Meningismus. Cardiovascular: Regular rate and rhythm. No pulse deficits. Respiratory: No increased work of breathing, no retractions or nasal flaring. Back: No spinal tenderness. No costovertebral tenderness. Full range of motion. MS/ Extremity: Pulses equal, no cyanosis. Neurovascular intact. Full, normal range of motion. Equal circumference. Neuro: Mild somnolence, awakens to voice, oriented to person, place, and situation. Moves all 4 extremities. Vital Signs: 00:13 BP 110 / 52; Pulse 60; Resp 12 S; Temp 97.8(O); Pulse Ox 100% on R/A; Weight 52.16 kg jd3 (R); Height 5 ft. 0 in. (152.40 cm) (R); Pain 9/10; 00:58 BP 119 / 54; Pulse 91; Resp 13 S; Pulse Ox 100% on R/A; jd3 01:33 BP 96 / 46; Pulse 87; Resp 13 S; Pulse Ox 100% on R/A; jd3 02:28 BP 102 / 44; Pulse 90; Resp 13 S; Pulse Ox 100% on R/A; jd3 02:56 BP 144 / 76; Pulse 84; Resp 15 S; Pulse Ox 100% on R/A; jd3 04:28 BP 96 / 53; Pulse 66; Resp 14 S; Pulse Ox 100% on R/A; Pain 0/10; jd3 05:07 BP 99 / 58; Pulse 67; Resp 13 S; Pulse Ox 100% on R/A; jd3 06:04 BP 110 / 46; Pulse 68; Resp 15 S; Pulse Ox 100% on R/A; jd3 00:13 Body Mass Index 22.46 (52.16 kg, 152.40 cm) jd3 MDM: 00:06 Patient medically screened. rn 01:55 ED course: Approx 7 hours after ingestion and acetaminophen level 17, non-toxic, will rn not require mucomyst. Slight elevation in INR and alk phos elevated but AST/ALT WNL and has had elevated alk phos and INR in prior visits as well, I howe not feel secondary to large acute tylenol ingestion. Will admit for acute renal failure, acidosis, and borderline BP. Fluids started. . 02:37 Differential diagnosis: Ingestion/exposure to polypharmacy, norco, benzos, rn methamphetmaines polypharmacy. Data reviewed: vital signs, nurses notes. 02:38 Counseling: I had a detailed discussion with the patient and/or guardian regarding: the rn historical points, exam findings, and any diagnostic results supporting the discharge/admit diagnosis, lab results, the need for further work-up and treatment in the hospital. Response to treatment: the patient's symptoms have mildly improved after treatment. ED course: Pt has improved, much more alert, plan was to admit for acute kidney failure, which patient initially agreed to do, but after she spoke with Dr. Ham for admission/intake, patient changed mind and does not want to be admitted. I spoke with patient again and she refuses to be admitted. She understands that this decision can permanently damage her kidneys and could mean dialysis in the future. She understands risks and insists on going home. She states that her parents will come pick her up, she is calling now. . 05:58 ED course: Asked patient again and insists wants to go home. Has signed out AMA. . rn 06/21 00:08 Order name: Acetaminophen; Complete Time: :51 rn 06/21 00:08 Order name: Basic Metabolic Panel; Complete Time: :51 rn 06/21 00:08 Order name: CBC with Diff; Complete Time: :35 rn 06/21 00:08 Order name: ETOH Level; Complete Time: rn 06/21 00:08 Order name: Hepatic Function; Complete Time: rn 06/21 00:08 Order name: PT-INR; Complete Time: 35 rn 06/21 00:08 Order name: Ptt, Activated; Complete Time: 35 rn 06/21 00:08 Order name: Salicylate; Complete Time: 35 rn 06/21 00:08 Order name: Urine Drug Screen; Complete Time: 02:18 rn 06/21 01:16 Order name: Urine Dipstick--Ancillary (enter results) ar5 06/21 01:52 Order name: XRAY Chest (1 view) rn 06/21 00:08 Order name: IV Start; Complete Time: 00:46 rn 06/21 00:08 Order name: EKG; Complete Time: 00:10 rn 06/21 00:08 Order name: EKG - Nurse/Tech; Complete Time: 00:33 rn 06/21 00:08 Order name: Labs collected and sent; Complete Time: 00:46 rn 06/21 00:08 Order name: Urine Dipstick-Ancillary (obtain specimen); Complete Time: 01:09 rn Administered Medications: 01:42 Drug: NS 0.9% 1000 ml Route: IV; Rate: 1 bolus; Site: left antecubital; jd3 02:55 Drug: Potassium Chloride 40 mEq Route: PO; jd3 03:42 Follow up: Response: No adverse reaction jd3 Disposition: 06/21/19 06:02 Patient has left against medical advice. Impression: Alcohol abuse with intoxication, Dehydration. - Patients states they are going to Home. - Condition is Stable. - Discharge Instructions: Alcohol Intoxication, Alcohol Withdrawal, Alcohol Use Disorder, Dehydration, Adult. Follow up: Private Physician; When: As needed; Reason: Recheck today's complaints, Re-evaluation by your physician. - Problem is an ongoing problem. - Symptoms have improved. Signatures: Dispatcher [employer] EDMA Alexandru Winters RN RN sg Nieto, Roman, MD MD rn Davies, Jonathon, RN RN jd3 Corrections: (The following items were deleted from the chart) 01:58 01:55 ED course: Approx 7 hours after ingestion and acetaminophen level 17, non-toxic, rn will not require mucomyst. . rn 03:42 02:07 Arterial Blood Gas+[id number].LAB.BRZ ordered. [facility] 06:02 01:59 Hospitalization Ordered by Doni Ham for Inpatient Admission. Preliminary rn diagnosis is Acute kidney failure; Adverse effect of other narcotics; Acidosis. Bed requested for Telemetry/MedSurg (Inpatient). Status is Inpatient Admission. Condition is Stable. Problem is new. Symptoms are unchanged. UTI on Admission? No. rn 09:25 06:02 06/21/2019 06:02 Patients has left against medical advice. Impression: Alcohol sg abuse with intoxication; Dehydration. Patient states they are going to Home. Condition is Stable. Follow up: Private Physician; When: As needed; Reason: Recheck today's complaints, Re-evaluation by your physician. Problem is an ongoing problem. Symptoms have improved. rn
[2019-06-21 02:07] LABS: Barbiturates NEGATIVE (NEGATIVE); Benzodiazepines POSITIVE (NEGATIVE); Cocaine NEGATIVE (NEGATIVE); METHAMPHETAM POSITIVE (NEGATIVE); Methadone NEGATIVE (NEGATIVE); Opiates POSITIVE (NEGATIVE); Phencyclidine NEGATIVE (NEGATIVE); THC Cannibis NEGATIVE (NEGATIVE)
[2019-06-21] MEDS ORDERED: POTASSIUM CL SA 10 MEQ TAB PO ONE (02:52)
[2019-06-21 05:11] LABS: Urine Blood 2+ (NEG); Urine Glucose NEGATIVE (NEG); Urine Protein 1+ (NEG)
--- NOTE | 2019-06-21 06:45 | EKG ---
Test Date: 2019-06-21 Test Time: 00:27:37 Candy Cutter Hand: DREA MEASUREMENT RESULTS: Intervals: Rate: 91 ND: 154 QRSD: 96 QT: 396 QTc: 487 [place]: P: 44 ND: 154 QRS: 24 T: 34 INTERPRETIVE STATEMENTS: Normal sinus rhythm Nonspecific ST abnormality Prolonged QT Abnormal ECG Compared to ECG 04/09/2019 01:45:55 ST (T wave) deviation now present Prolonged QT interval now present Electronically Signed On 06-21-19 06:44:53 [employer]OPELLER INSPECTOR by Nehemiah Mckinney
--- NOTE | 2019-06-21 07:08 | RAD REPORT ---
EXAM DESCRIPTION: RAD - Chest Single View - 06/21/2019 3:58 am CLINICAL HISTORY: Cough COMPARISON: March 2019 TECHNIQUE: AP portable chest image was obtained 0354 hours . FINDINGS: No focal mass or consolidation. Interstitial pattern matches comparison. Heart and vascula ture are normal. No measurable pleural effusion and no pneumothorax. No acute bony abnormality seen. No acute aortic findings suspected. IMPRESSION: No acute cardiopulmonary process. No significant interval change.
[2019-06-21 09:32] VITALS: TEMP 97.8; O2SAT 100
[2019-06-21 09:41] VITALS: BP 110/46
== END 2019-06-21 09:25 | disposition left against medical advice (07) ==
LOC: ER 23:59
DX: F10.129 Alcohol abuse with intoxication, unspecified (principal); E86.0 Dehydration; F41.9 Anxiety disorder, unspecified; G89.29 Other chronic pain; F90.9 Attention-deficit hyperactivity disorder, unspecified type; Z88.6 Allergy status to analgesic agent; Z88.8 Allergy status to other drugs, medicaments and biological substances
CPT/HCPCS: 93005; 85025; 80048; 36415; 80320; 80329 ×2; 85610; 80076; 80307 ×8; 85730; 81003; 71045; 99284; J7030

== ENCOUNTER 2019-07-19 13:55 | Emergency (ER) | payer OTHER ==
--- OUTSIDE RECORDS SUMMARY | 2019-07-19 13:57 | XMS REPORT ---
:1960 [facility] Address [address] [place] [address] Dr. Giron [address] [place] [id number] Care Team Providers Name Role Phone Unavailable Unavailable Unavailable Problems This patient has no known problems. Allergies, Adverse Reactions, Alerts This patient has no known allergies or adverse reactions. Medications This patient has no known medications.
--- NOTE | 2019-07-19 14:54 | ER ---
Nurse's Notes [facility] Name: Martha Pradhan Age: 58 yrs Sex: Female : 1960 Arrival Date: 07/19/2019 Time: 13:57 Bed 8 Private MD: Nirmal Hancock Diagnosis: Acute sinusitis Presentation: 07/19 14:11 Presenting complaint: Patient states: it first started the 2nd week in May, i had tw2 a sore throat headache sneezing a little bit of cough, i went to in June, he gave me some medicine that lasted 3 or 4 days i felt ok for a week then it hit me like a ton of bricks, the headache got so bad the past week, now its better, it feels like a lot of pressure in my sinus and my ears are pulled and it feels like its going into my chest. i am a new patient for my doctor until the , i went to [facility] and they dont take my insurance now urgent care dont take my insurance. Tuesday will be the 4th week of the second round of all this. Transition of care: patient was not received from another setting of care. Onset of symptoms was July 19, 2019. Risk Assessment: Do you want to hurt yourself or someone else? Patient reports no desire to harm self or others. Initial Sepsis Screen: Does the patient meet any 2 criteria? HR > 90 bpm. No. Patient's initial sepsis screen is negative. Does the patient have a suspected source of infection? No. Patient's initial sepsis screen is negative. Care prior to arrival: None. 14:11 Method Of Arrival: Ambulatory tw2 14:11 Acuity: ROSALBA 3 tw2 Triage Assessment: 14:14 General: Appears in no apparent distress. Behavior is calm, cooperative, appropriate tw2 for age. Pain: Complains of pain in uvula, left aspect of posterior pharynx and right aspect of posterior pharynx and body aches. EENT: Reports nasal congestion nasal discharge pain when swallowing. Historical: - Allergies: 14:17 Vistaril; tw2 14:17 NSAIDS (Non-Steroidal Anti-Inflammatory Drug); tw2 14:17 Naproxen Sodium; tw2 14:17 Naproxen; tw2 14:17 nalbuphine HCl; tw2 14:17 Lyrica; tw2 14:17 Ibuprofen; tw2 14:17 Hydroxyzine Pamoate; tw2 14:17 hydroxyzine HCl; tw2 14:17 haloperidol lactate; tw2 14:17 meloxicam; tw2 14:17 Demerol; tw2 - Home Meds: 14:17 Bentyl 20 mg oral tab 1 tab 3 times per day [Active]; metoprolol tartrate 50 mg Oral tw2 tab 1 tab 3 times per day [Active]; lansoprazole 30 mg oral cpDR 1 cap once daily [Active]; Premarin 1.25 mg Oral tab 1 tab once daily [Active]; hydrochlorothiazide 12.5 mg Oral tab 1 tab once daily [Active]; Klonopin 1 mg Oral tab 1 tab 2 times per day [Active]; - PMHx: 14:17 ADD/ADHD; Anxiety; Arthritis; Back pain; Chronic pain; Irritable bowel syndrome; tw2 Osteoporosis; restless leg syndrome; Tachycardia; - Immunization history:: Adult Immunizations. - Coronavirus screen:: The patient has NOT traveled to [place], [place], or [place] in the past 14 days. - Social history:: Smoking status: Patient/guardian denies using tobacco, the patient reports quitting approximately 8 years ago. - Ebola Screening: : Patient denies travel to an Ebola-affected area in the 21 days before illness onset. Screenin:08 Abuse screen: Denies threats or abuse. Denies injuries from another. Nutritional ph screening: No deficits noted. Tuberculosis screening: No symptoms or risk factors identified. Fall Risk None identified. Assessment: 14:50 General: Appears in no apparent distress. comfortable, Behavior is calm, cooperative, ph appropriate for age. Pain: Complains of pain in right ear and left ear. Neuro: Level of Consciousness is awake, alert, obeys commands, Oriented to person, place, time, Appropriate for age. Cardiovascular: Capillary refill < 3 seconds in bilateral fingers Patient's skin is warm and dry. Respiratory: Reports cough that is Airway is patent Respiratory effort is even, unlabored, Breath sounds are clear bilaterally. GI: No signs and/or symptoms were reported involving the gastrointestinal system. EENT: Reports nasal congestion nasal discharge. Derm: Skin is intact, is healthy with good turgor, Skin is pink, warm \T\ dry. Musculoskeletal: Circulation, motion, and sensation intact. Range of motion: intact in all extremities. Vital Signs: 14:14 BP 147 / 68; Pulse 105; Resp 17; Temp 97.5(TE); Pulse Ox 99% on R/A; Weight 52.16 kg; tw2 Height 5 ft. 1 in. (154.94 cm); Pain 4/10; 14:14 Body Mass Index 21.73 (52.16 kg, 154.94 cm) tw2 ED Course: 13:57 Patient arrived in ED. rg4 13:58 Nirmal Hancock DO is Private Physician. rg4 14:14 Triage completed. tw2 14:14 Arm band placed on. tw2 14:26 Sharda Vázquez, RN is Primary Nurse. ph 14:26 [facility]isner[facility]C [facility]. snw 14:26 Bryon Rivera MD is Attending Physician. snw 15:08 Patient has correct armband on for positive identification. Bed in low position. Call ph light in reach. Side rails up X 1. Pulse ox on. NIBP on. Door closed. Noise minimized. Warm blanket given. Head of bed. 15:08 No provider procedures requiring assistance completed. Patient did not have IV access ph during this emergency room visit. Administered Medications: 15:01 Drug: LevaQUIN 500 mg Route: PO; ph 15:01 Follow up: Response: No adverse reaction; Medication administered at discharge. ph 15:01 Drug: predniSONE 20 mg Route: PO; ph 15:02 Follow up: Response: No adverse reaction; Medication administered at discharge. ph Outcome: 14:50 Discharge ordered by . snw 15:08 Discharged to home ambulatory. ph 15:08 Condition: good 15:08 Discharge instructions given to patient, Instructed on discharge instructions, follow up and referral plans. medication usage, Demonstrated understanding of instructions, follow-up care, medications, Prescriptions given X 2. 15:09 Patient left the ED. ph Signatures: Amanda Cisneros FNP-C TRIMMER LOADER-Csnw Sharda Vázquez RN RN Maureen Staley RN RN tw2 Ashley Morocho rg4
--- NOTE | 2019-07-19 14:55 | EDPHYS ---
Physician Documentation [facility] Name: Martha Pradhan Age: 58 yrs Sex: Female : 1960 Arrival Date: 07/19/2019 Time: 13:57 Bed 8 Private MD: Shahnaz Hancockh ED Physician Bryon Rivera HPI: 07/19 14:55 This 58 yrs old Female presents to ER via Ambulatory with complaints of snw Cough, Runny Nose, Ear Pain. 14:55 The patient or guardian reports cough, flu symptoms, hoarse voice. Onset: The snw symptoms/episode began/occurred 1.2 month(s) ago, and became worse and became persistent. Severity of symptoms: At their worst the symptoms were moderate. Associated signs and symptoms: Pertinent positives: earache, nausea, rhinorrhea, sore throat, cough. The patient has not experienced similar symptoms in the past. The patient has been recently seen by a physician: the patient's primary care provider, with similar presenting complaints, given "medication" x 4 days, felt better and then got worse. Historical: - Allergies: 14:17 Vistaril; tw2 14:17 NSAIDS (Non-Steroidal Anti-Inflammatory Drug); tw2 14:17 Naproxen Sodium; tw2 14:17 Naproxen; tw2 14:17 nalbuphine HCl; tw2 14:17 Lyrica; tw2 14:17 Ibuprofen; tw2 14:17 Hydroxyzine Pamoate; tw2 14:17 hydroxyzine HCl; tw2 14:17 haloperidol lactate; tw2 14:17 meloxicam; tw2 14:17 Demerol; tw2 - Home Meds: 14:17 Bentyl 20 mg oral tab 1 tab 3 times per day [Active]; metoprolol tartrate 50 mg Oral tw2 tab 1 tab 3 times per day [Active]; lansoprazole 30 mg oral cpDR 1 cap once daily [Active]; Premarin 1.25 mg Oral tab 1 tab once daily [Active]; hydrochlorothiazide 12.5 mg Oral tab 1 tab once daily [Active]; Klonopin 1 mg Oral tab 1 tab 2 times per day [Active]; - PMHx: 14:17 ADD/ADHD; Anxiety; Arthritis; Back pain; Chronic pain; Irritable bowel syndrome; tw2 Osteoporosis; restless leg syndrome; Tachycardia; - Immunization history:: Adult Immunizations. - Coronavirus screen:: The patient has NOT traveled to [place], [place], or [place] in the past 14 days. - Social history:: Smoking status: Patient/guardian denies using tobacco, the patient reports quitting approximately 8 years ago. - Ebola Screening: : Patient denies travel to an Ebola-affected area in the 21 days before illness onset. ROS: 14:57 Constitutional: Negative for fever, chills, and weight loss, Eyes: Negative for injury, snw pain, redness, and discharge. 14:57 Neck: Negative for injury, pain, and swelling, Cardiovascular: Negative for chest pain, palpitations, and edema, Abdomen/GI: Negative for abdominal pain, nausea, vomiting, diarrhea, and constipation, Back: Negative for injury and pain, : Negative for injury, bleeding, discharge, and swelling, MS/Extremity: Negative for injury and deformity, Skin: Negative for injury, rash, and discoloration. 14:57 Psych: Negative for depression, anxiety, suicide ideation, homicidal ideation, and hallucinations. 14:57 ENT: Positive for ear pain, rhinorrhea, sinus congestion, sinus pain. 14:57 Respiratory: Positive for cough, with no reported sputum. 14:57 Neuro: Positive for headache. Exam: 14:57 Constitutional: This is a well developed, well nourished patient who is awake, alert, snw and in no acute distress. Head/Face: Normocephalic, atraumatic. Eyes: Pupils equal round and reactive to light, extra-ocular motions intact. Lids and lashes normal. Conjunctiva and sclera are non-icteric and not injected. Cornea within normal limits. Periorbital areas with no swelling, redness, or edema. 14:57 Neck: Trachea midline, no thyromegaly or masses palpated, and no cervical lymphadenopathy. Supple, full range of motion without nuchal rigidity, or vertebral point tenderness. No Meningismus. Chest/axilla: Normal chest wall appearance and motion. Nontender with no deformity. No lesions are appreciated. 14:57 Respiratory: Lungs have equal breath sounds bilaterally, clear to auscultation and percussion. No rales, rhonchi or wheezes noted. No increased work of breathing, no retractions or nasal flaring. Abdomen/GI: Soft, non-tender, with normal bowel sounds. No distension or tympany. No guarding or rebound. No evidence of tenderness throughout. Back: No spinal tenderness. No costovertebral tenderness. Full range of motion. Skin: Warm, dry with normal turgor. Normal color with no rashes, no lesions, and no evidence of cellulitis. MS/ Extremity: Pulses equal, no cyanosis. Neurovascular intact. Full, normal range of motion. Neuro: Awake and alert, GCS 15, oriented to person, place, time, and situation. Cranial nerves II-XII grossly intact. Motor strength 5/5 in all extremities. Sensory grossly intact. Cerebellar exam normal. Normal gait. Psych: Awake, alert, with orientation to person, place and time. Behavior, mood, and affect are within normal limits. 14:57 ENT: External ear(s): are unremarkable, Ear canal(s): are normal, Nose: Nasal mucosa: edematous, facial pressure/tenderness, Mouth: is normal, Posterior pharynx: is normal, Voice: is hoarse. 14:57 Cardiovascular: Rate: tachycardic, Rhythm: regular, Pulses: no pulse deficits are appreciated. Vital Signs: 14:14 BP 147 / 68; Pulse 105; Resp 17; Temp 97.5(TE); Pulse Ox 99% on R/A; Weight 52.16 kg; tw2 Height 5 ft. 1 in. (154.94 cm); Pain 4/10; 14:14 Body Mass Index 21.73 (52.16 kg, 154.94 cm) tw2 MDM: 14:45 Patient medically screened. snw 14:53 Differential Diagnosis: Bronchitis Upper Respiratory Infection Sinusitis Pharyngitis snw Otitis Media Allergic Rhinitis. Data reviewed: vital signs, nurses notes. Data interpreted: Pulse oximetry: on room air is 99 %. Interpretation: normal. Counseling: I had a detailed discussion with the patient and/or guardian regarding: the historical points, exam findings, and any diagnostic results supporting the discharge/admit diagnosis, the presence of at least one elevated blood pressure reading (>120/80) during this emergency department visit, the need for outpatient follow up, to return to the emergency department if symptoms worsen or persist or if there are any questions or concerns that arise at home. Administered Medications: 15:01 Drug: LevaQUIN 500 mg Route: PO; ph 15:01 Follow up: Response: No adverse reaction; Medication administered at discharge. ph 15:01 Drug: predniSONE 20 mg Route: PO; ph 15:02 Follow up: Response: No adverse reaction; Medication administered at discharge. ph Disposition: 16:31 Co-signature as Attending Physician, Bryon Rivera MD. rn Disposition: 07/19/19 14:50 Discharged to Home. Impression: Acute sinusitis. - Condition is Stable. - Discharge Instructions: Sinusitis, Adult. - Prescriptions for Levaquin 500 mg Oral Tablet - take 1 tablet by ORAL route once daily for 7 days; 7 tablet. Prednisone 20 mg Oral Tablet - take 2 tablet by ORAL route once daily for 5 days; 10 tablet. - Medication Reconciliation Form, Thank You Letter, Antibiotic Education, Prescription Opioid Use form. - Follow up: Private Physician; When: 1 week; Reason: Recheck today's complaints, Continuance of care, Re-evaluation by your physician. Follow up: Emergency Department; When: As needed; Reason: Worsening of condition. Signatures: Amanda Cinseros, COSMETICS SUPERVISOR-C COSMETICS SUPERVISOR-Csnw Bryon Rivera MD MD rn Sharda Vázquez RN RN Maureen Staley RN RN tw2 Corrections: (The following items were deleted from the chart) 15:09 14:50 07/19/2019 14:50 Discharged to Home. Impression: Acute sinusitis. Condition is ph Stable. Forms are Medication Reconciliation Form, Thank You Letter, Antibiotic Education, Prescription Opioid Use. Follow up: Private Physician; When: 1 week; Reason: Recheck today's complaints, Continuance of care, Re-evaluation by your physician. Follow up: Emergency Department; When: As needed; Reason: Worsening of condition. snw
[2019-07-19] MEDS ORDERED: predniSONE 20 MG TAB ONE (15:01)
[2019-07-19] MEDS ORDERED: levoFLOXacin 500 MG TAB ONE (15:01)
[2019-07-19 15:24] VITALS: BP 147/68; TEMP 97.5; O2SAT 99
== END 2019-07-19 15:09 | disposition home or self-care (01) ==
LOC: ER 13:55
DX: J01.90 Acute sinusitis, unspecified (principal); Z88.6 Allergy status to analgesic agent; Z88.8 Allergy status to other drugs, medicaments and biological substances
CPT/HCPCS: 99283; J7512

== ENCOUNTER 2019-08-18 10:01 | Emergency (ER) | payer OTHER ==
--- OUTSIDE RECORDS SUMMARY | 2019-08-18 10:02 | XMS REPORT ---
:1960 [facility] [address] [place] [id number] Care Team Providers Name Role Phone Unavailable Unavailable Unavailable Problems This patient has no known problems. Allergies, Adverse Reactions, Alerts This patient has no known allergies or adverse reactions. Medications This patient has no known medications.
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
--- NOTE | 2019-08-18 11:25 | RAD REPORT ---
EXAM DESCRIPTION: Sarwat Delacruz (2 Views)08/18/2019 10:49 am CLINICAL HISTORY: Cough COMPARISON: 2019 FINDINGS: The lungs appear clear of acute infiltrate. The heart is normal size IMPRESSION: No acute abnormalities displayed
--- NOTE | 2019-08-18 11:32 | ER ---
Nurse's Notes [facility] Name: Martha Pradhan Age: 58 yrs Sex: Female : 1960 Arrival Date: 08/18/2019 Time: 10:04 Bed 20 Private MD: Nirmal Hancock Diagnosis: Allergic rhinitis, unspecified Presentation: 08/17 10:12 Chief complaint: Patient states: "I've been sick since May 29 on and off and aa5 this last time it started 3 weeks ago". Pt reports chest congestion. Pt states "I haven't been coughing but I did cough up some phlegm the other day". 10:12 Acuity: ROSALBA 3 aa5 10:12 Method Of Arrival: Ambulatory aa5 10:12 Coronavirus screen: The patient has NOT traveled to a country currently being monitored aa5 by the [facility] within the last 14 days. Ebola Screen: Patient negative for fever greater than or equal to 101.5 degrees Fahrenheit, and additional compatible Ebola Virus Disease symptoms. Initial Sepsis Screen: Does the patient meet any 2 criteria? HR > 90 bpm. Does the patient have a suspected source of infection? Yes:. Risk Assessment: Do you want to hurt yourself or someone else? Patient reports no desire to harm self or others. Historical: - Allergies: 10:34 Demerol; aa5 10:34 haloperidol lactate; aa5 10:34 hydroxyzine HCl; aa5 10:34 Hydroxyzine Pamoate; aa5 10:34 Ibuprofen; aa5 10:34 Lyrica; aa5 10:34 meloxicam; aa5 10:34 nalbuphine HCl; aa5 10:34 Naproxen; aa5 10:34 Naproxen Sodium; aa5 10:34 NSAIDS (Non-Steroidal Anti-Inflammatory Drug); aa5 10:34 Vistaril; aa5 10:34 Nubain; aa5 - Home Meds: 14:35 Bentyl 20 mg Oral tab 1 tab 3 times per day [Active]; hydrochlorothiazide 12.5 mg Oral tw2 tab 1 tab once daily [Active]; Klonopin 1 mg Oral tab 1 tab 2 times per day [Active]; lansoprazole 30 mg Oral cpDR 1 cap once daily [Active]; metoprolol tartrate 50 mg Oral tab 1 tab 3 times per day [Active]; Premarin 1.25 mg Oral tab 1 tab once daily [Active]; - PMHx: 10:34 ADD/ADHD; Anxiety; Arthritis; Back pain; Chronic pain; Osteoporosis; Irritable bowel aa5 syndrome; restless leg syndrome; Tachycardia; - Immunization history:: Adult Immunizations up to date, Pneumococcal vaccine is up to date, Flu vaccine is up to date. - Social history:: Smoking status: Patient/guardian denies using tobacco, the patient reports quitting approximately 7 years ago. Screenin:36 Abuse screen: Denies threats or abuse. Nutritional screening: No deficits noted. tw2 Tuberculosis screening: No symptoms or risk factors identified. Fall Risk None identified. Assessment: 10:20 General: Appears in no apparent distress. slender, well groomed, Behavior is tw2 cooperative, appropriate for age, talkative. Pain: Complains of pain in "body aches". Neuro: Level of Consciousness is awake, alert, obeys commands, Oriented to person, place, time, situation. Cardiovascular: Patient's skin is warm and dry. Respiratory: Airway is patent Respiratory effort is even, unlabored, Respiratory pattern is regular, symmetrical. GI: No signs and/or symptoms were reported involving the gastrointestinal system. : No signs and/or symptoms were reported regarding the genitourinary system. EENT: Reports nasal congestion nasal discharge. Derm: No signs and/or symptoms reported regarding the dermatologic system. Musculoskeletal: Range of motion: intact in all extremities. 11:42 Reassessment: Patient appears in no apparent distress at this time. No changes from tw2 previously documented assessment. Patient and/or family updated on plan of care and expected duration. Pain level reassessed. Patient is alert, oriented x 3, equal unlabored respirations, skin warm/dry/pink. provider at bedside discussing pts discharge and self care. Vital Signs: 10:12 BP 162 / 67; Pulse 104; Resp 20 S; Temp 98.5(O); Pulse Ox 98% on R/A; Weight 52.16 kg aa5 (R); Height 5 ft. 0 in. (152.40 cm) (R); Pain 5/10; 10:12 Body Mass Index 22.46 (52.16 kg, 152.40 cm) aa ED Course: 10:04 Patient arrived in ED. ag5 10:04 Nirmal Hancock DO is Private Physician. ag5 10:04 Arm band placed on. aa5 10:12 Bed in low position. Call light in reach. tw2 10:13 Slade Bolivar NP is PHCP. pm1 10:13 Bryon Rivera MD is Attending Physician. pm1 10:14 PHCP role handed off by Slade Bolivar NP kb 10:14 Ghada Reddy FNP-C is PHCP. kb 10:34 Triage completed. aa5 10:35 Maureen Staley, ALEXANDRA is Primary Nurse. tw2 10:48 Chest Pa And Lat (2 Views) XRAY In Process Unspecified. EDMS 11:42 No provider procedures requiring assistance completed. Patient did not have IV access tw2 during this emergency room visit. Administered Medications: No medications were administered Outcome: 11:32 Discharge ordered by MD. kb 11:42 Discharged to home ambulatory. tw2 11:42 Condition: stable 11:42 Discharge instructions given to patient, family, Instructed on discharge instructions, follow up and referral plans. medication usage, Demonstrated understanding of instructions, follow-up care, medications, Prescriptions given X 1. 11:46 Patient left the ED. tw2 Signatures: Dispatcher [employer] EDMS Ghada Reddy FNP-C FNP-Ckb Calderon, Audri, RN RN aa5 Slade Bolivar NP CONTINUITY COORDINATOR pm1 Maureen Staley RN RN tw2 Dylon Josevini ag5
--- NOTE | 2019-08-18 11:32 | EDPHYS ---
Physician Documentation [facility] Name: Martha Pradhan Age: 58 yrs Sex: Female : 1960 Arrival Date: 08/18/2019 Time: 10:04 Bed 20 Private MD: Nirmal [facility] ED Physician Bryon Rivera HPI: 08/17 11:03 This 58 yrs old Female presents to ER via Ambulatory with complaints of Flu kb Symptoms. 11:04 The patient or guardian reports cough, that is intermittent, described as mild, with no kb sputum, flu symptoms, myalgias. Onset: The symptoms/episode began/occurred 3 month(s) ago, May 29, 2019. Severity of symptoms: At their worst the symptoms were mild, moderate, in the emergency department the symptoms are unchanged. Modifying factors: The symptoms are alleviated by nothing, the symptoms are aggravated by nothing. Associated signs and symptoms: Pertinent positives: rhinorrhea, sore throat, Pertinent negatives: chest pain, diarrhea, ear ache, fever, nausea, vomiting. The patient has experienced similar episodes in the past, several times. The patient has been recently seen by a physician:. Pt reports she developed a sore throat and sinus congestion on May 29, 2019. Went to her dr the first week of June and was given an antibiotic. Completed that and felt better for about a week, then symptoms returned. Reports she came here and was given antibiotics and a steroid and felt better for another week, but symptoms returned. Went to her PCP and was told to take over the counter medications for allergies, but isn't getting any better. Reports sore throat, congestion, cough, malaise, and rhinorrhea.. Historical: - Allergies: 10:34 Demerol; aa5 10:34 haloperidol lactate; aa5 10:34 hydroxyzine HCl; aa5 10:34 Hydroxyzine Pamoate; aa5 10:34 Ibuprofen; aa5 10:34 Lyrica; aa5 10:34 meloxicam; aa5 10:34 nalbuphine HCl; aa5 10:34 Naproxen; aa5 10:34 Naproxen Sodium; aa5 10:34 NSAIDS (Non-Steroidal Anti-Inflammatory Drug); aa5 10:34 Vistaril; aa5 10:34 Nubain; aa5 - Home Meds: 14:35 Bentyl 20 mg Oral tab 1 tab 3 times per day [Active]; hydrochlorothiazide 12.5 mg Oral tw2 tab 1 tab once daily [Active]; Klonopin 1 mg Oral tab 1 tab 2 times per day [Active]; lansoprazole 30 mg Oral cpDR 1 cap once daily [Active]; metoprolol tartrate 50 mg Oral tab 1 tab 3 times per day [Active]; Premarin 1.25 mg Oral tab 1 tab once daily [Active]; - PMHx: 10:34 ADD/ADHD; Anxiety; Arthritis; Back pain; Chronic pain; Osteoporosis; Irritable bowel aa5 syndrome; restless leg syndrome; Tachycardia; - Immunization history:: Adult Immunizations up to date, Pneumococcal vaccine is up to date, Flu vaccine is up to date. - Social history:: Smoking status: Patient/guardian denies using tobacco, the patient reports quitting approximately 7 years ago. ROS: 11:03 Neck: Negative for injury, pain, and swelling, Cardiovascular: Negative for chest pain, kb palpitations, and edema, Abdomen/GI: Negative for abdominal pain, nausea, vomiting, diarrhea, and constipation, Back: Negative for injury and pain, MS/Extremity: Negative for injury and deformity, Skin: Negative for injury, rash, and discoloration, Neuro: Negative for headache, weakness, numbness, tingling, and seizure. 11:03 Constitutional: Positive for malaise. 11:03 ENT: Positive for rhinorrhea, sinus congestion, sore throat. 11:03 Respiratory: Positive for cough, Negative for dyspnea on exertion, hemoptysis, orthopnea, pleurisy, shortness of breath, sputum production, wheezing. Exam: 11:07 Constitutional: This is a well developed, well nourished patient who is awake, alert, kb and in no acute distress. Head/Face: Normocephalic, atraumatic. ENT: Nares patent. No nasal discharge, no septal abnormalities noted. Tympanic membranes are normal and external auditory canals are clear. Oropharynx with no redness, swelling, or masses, exudates, or evidence of obstruction, uvula midline. Mucous membranes moist. Neck: Trachea midline, no thyromegaly or masses palpated, and no cervical lymphadenopathy. Supple, full range of motion without nuchal rigidity, or vertebral point tenderness. No Meningismus. Chest/axilla: Normal chest wall appearance and motion. Nontender with no deformity. No lesions are appreciated. Cardiovascular: Regular rate and rhythm with a normal S1 and S2. No gallops, murmurs, or rubs. Normal PMI, no JVD. No pulse deficits. Respiratory: Lungs have equal breath sounds bilaterally, clear to auscultation and percussion. No rales, rhonchi or wheezes noted. No increased work of breathing, no retractions or nasal flaring. Abdomen/GI: Soft, non-tender, with normal bowel sounds. No distension or tympany. No guarding or rebound. No evidence of tenderness throughout. Skin: Warm, dry with normal turgor. Normal color with no rashes, no lesions, and no evidence of cellulitis. MS/ Extremity: Pulses equal, no cyanosis. Neurovascular intact. Full, normal range of motion. Neuro: Awake and alert, GCS 15, oriented to person, place, time, and situation. Cranial nerves II-XII grossly intact. Motor strength 5/5 in all extremities. Sensory grossly intact. Cerebellar exam normal. Normal gait. Vital Signs: 10:12 BP 162 / 67; Pulse 104; Resp 20 S; Temp 98.5(O); Pulse Ox 98% on R/A; Weight 52.16 kg aa5 (R); Height 5 ft. 0 in. (152.40 cm) (R); Pain 5/10; 10:12 Body Mass Index 22.46 (52.16 kg, 152.40 cm) aa5 MDM: 10:14 Patient medically screened. kb 11:07 Differential Diagnosis: Bronchitis Influenza Upper Respiratory Infection Sinusitis kb Pharyngitis Allergic Rhinitis. Data reviewed: vital signs, nurses notes. Data interpreted: Pulse oximetry: on room air is 98 %. Interpretation: normal. 11:30 Data reviewed: lab test result(s), radiologic studies. Test interpretation: by ED kb physician or midlevel provider: plain radiologic studies, old rib fractures on right, hardware from clavicle repair on left, no acute findings. Counseling: I had a detailed discussion with the patient and/or guardian regarding: the historical points, exam findings, and any diagnostic results supporting the discharge/admit diagnosis, lab results, radiology results, the need for outpatient follow up, a family practitioner, to return to the emergency department if symptoms worsen or persist or if there are any questions or concerns that arise at home. 11:44 Special discussion: ED course: Pt upset that she is not getting antibiotics this time. kb Educated that exam and diagnostics do not indicate the need for antibiotics because there is no signs of a bacterial infection. Educated on use of flonase and camacho. Pt reports she felt better after the last antibiotic and steroid given when she was here. Will give medrol dose pack to see if that improves sinus congestion. Pt has taken 2 courses of antibiotics, the last one was levaquin on 07/19/19. . 08/17 10:34 Order name: Flu; Complete Time: 11:23 kb 08/17 10:34 Order name: Strep; Complete Time: 11:13 kb 08/17 10:34 Order name: Chest Pa And Lat (2 Views) XRAY; Complete Time: 11:30 kb 08/17 11:11 Order name: Throat Culture EDMS Administered Medications: No medications were administered Disposition: 12:11 Co-signature as Attending Physician, Bryon Rivera MD. rn Disposition: 08/18/19 11:32 Discharged to Home. Impression: Allergic rhinitis, unspecified. - Condition is Stable. - Discharge Instructions: Sinusitis, Adult, Nkwv-sg-Nygo, Cough, Adult, Cidn-tj-Tnnt, Allergies, Nbuo-fc-Jxic. - Prescriptions for Medrol (Alex) 4 mg Oral Tablets, Dose Pack - take 1 tablet by ORAL route as directed - follow package instructions; 1 packet. - Medication Reconciliation Form, Thank You Letter, Antibiotic Education, Prescription Opioid Use form. - Follow up: Emergency Department; When: As needed; Reason: Worsening of condition. Follow up: Private Physician; When: 2 - 3 days; Reason: Recheck today's complaints, Continuance of care, Re-evaluation by your physician. Signatures: Dispatcher [employer] EDMS Ghada Reddy, LILIAN-Teresita CULINARY INSTRUCTOR-Bryon Jacobs MD MD rn Calderon, Audri, RN RN aa5 Maureen Staley RN RN tw2 Corrections: (The following items were deleted from the chart) 11:46 11:32 08/18/2019 11:32 Discharged to Home. Impression: Allergic rhinitis, unspecified. tw2 Condition is Stable. Forms are Medication Reconciliation Form, Thank You Letter, Antibiotic Education, Prescription Opioid Use. Follow up: Emergency Department; When: As needed; Reason: Worsening of condition. Follow up: Private Physician; When: 2 - 3 days; Reason: Recheck today's complaints, Continuance of care, Re-evaluation by your physician. kb
[2019-08-18 11:51] VITALS: BP 162/67; TEMP 98.5; O2SAT 98
== END 2019-08-18 11:46 | disposition home or self-care (01) ==
LOC: ER 10:01
DX: J30.9 Allergic rhinitis, unspecified (principal); F90.9 Attention-deficit hyperactivity disorder, unspecified type; F41.9 Anxiety disorder, unspecified; Z88.5 Allergy status to narcotic agent; Z88.6 Allergy status to analgesic agent; Z88.8 Allergy status to other drugs, medicaments and biological substances
CPT/HCPCS: 71046; 87070; 87081; 87804; 99283

== ENCOUNTER 2019-11-06 09:59 | Inpatient (IN) | payer OTHER ==
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
--- OUTSIDE RECORDS SUMMARY | 2019-11-06 10:42 | XMS REPORT ---
:1960 Author Organization eClinicalWorks Care Team Providers Name Role Phone aSnti Nirmal Provider Role Unavailable Allergies, Adverse Reactions, [...] disorder [episodic paroxysmal F41.0 Active anxiety] Assessment Current moderate episode of major F32.1 Active depressive disorder without prior episode Assessment Generalized anxiety disorder F41.1 Active Assessment Tachycardia R00.0 Active Problem Current moderate episode of major F32.1 Active depressive disorder without prior episode Problem Bilateral tinnitus H93.13 Active Assessment Attention deficit hyperactivity F90.2 Active disorder (ADHD), combined type Medications Medication Code Code Instructions Start End Status Dosage System Date Date Hydrochlorothiazide [facility] 93257351805 12.5 MG Orally A ctive 1 tablet Once a day in the morning Premarin [facility] 00702643225 1.25 MG Orally Active 1 ta blet Once a day Dicyclomine HCl [facility] 31740318233 20 MG Orally Active 1 tablet Twice a day PRN Clonazepam [facility] 34068127400 1 MG Orally Active 1 tab let Once a day PRN SEVERE ANXIETY Metoprolol Tartrate [facility] 43658748478 50 MG Orally Act ceferino 1 tablet Twice a day with food Adderall [facility] 50982141355 30 MG Orally Active 1 tabl et Twice a day Lansoprazole [facility] 17541342014 30 MG Orally Active 1 capsule Once a day Results No Known Results Summary Purpose eClinicalWorks Submission
[2019-11-06 10:50] LABS: Absolute Lymphocytes (CBC) 1.8 K/uL (0.7-4.9); Basophils % 1.3 % (0-1.3); Hematocrit 31.4 % (36.0-45.0); Lymphocytes % 22.3 % (15.3-44.8); MPV 8.6 fL (7.6-11.3)
[2019-11-06 10:56] LABS: Protime INR 1.14
[2019-11-06 11:30] LABS: ALT/SGPT 42 U/L (12-78); AST/SGOT 30 U/L (15-37); Albumin 3.4 g/dL (3.4-5.0); Alkaline Phosphatase 270 U/L (45-117); BUN Blood Urea Nitrogen 28 mg/dL (7-18); Bicarbonate 31 mmol/L (21-32); Bilirubin Direct < 0.1 mg/dL (0-0.2); Bilirubin Total 0.1 mg/dL (0.2-1.0); Glucose Level 127 mg/dL (74-106); Magnesium 1.5 mg/dL (1.8-2.4); NT PRO-BNP 324 pg/mL (<125); Protein, Total 7.5 g/dL (6.4-8.2); Sodium Level 139 mmol/L (136-145)
[2019-11-06 11:32] LABS: Potassium 2.5 mmol/L (3.5-5.1)
[2019-11-06] MEDS ORDERED: Magnesium Sulfate 2gm IVPB 2 G/50 ML BAG IV ONE (11:50)
[2019-11-06] MEDS ORDERED: NA CHLORIDE 0.9% 2,000 ML ONE (11:50)
[2019-11-06] MEDS ORDERED: POTASSIUM CL SA 10 MEQ TAB PO ONE (11:50)
[2019-11-06] MEDS ORDERED: KCL 20 MEQ/100 mL IVPB 20 MEQ/100 ML BAG IV ONE (11:51)
--- NOTE | 2019-11-06 12:33 | RAD REPORT ---
EXAM DESCRIPTION: CT - Chest Abd Pelvis Wo Con - 11/06/2019 12:10 pm CLINICAL HISTORY: Chest and abdomen pain. elevated calcium with dysnea and abdominal discomfort COMPARISON: No comparisons TECHNIQUE: A limited noncontrast study was performed. All CT scans are performed using dose optimization technique as appropriate and may include automated exposure control or mA/KV adjustment according to patient size. FINDINGS: The lungs are mildly levels of clear.No pleural or pericardial effusion.No intrathoracic a denopathy. The liver, spleen, pancreas, adrenal glands and kidneys are within normal limits. No bowel obstruction, free air, free fluid or abscess. The appendix is not identified as a discrete s tructure, however, no secondary findings of appendicitis are identified. No pathologic lymphadenopa thy in the abdomen or pelvis. Mild anterior wedge compression deformity affects T8 and T12, likely chronic. IMPRESSION: No acute abnormality is detected.
[2019-11-06] MEDS ORDERED: FENTANYL CITR 100 MCG/2 ML ONE (12:59)
--- NOTE | 2019-11-06 13:01 | RAD REPORT ---
EXAM DESCRIPTION: RAD - Chest Single View - 11/06/2019 10:49 am CLINICAL HISTORY: DYSPNEA COMPARISON: Two view chest August 2019 TECHNIQUE: AP portable chest image was obtained 11/06/2019 10:49 am . FINDINGS: No focal lung parenchymal process confirmed. Interstitial pattern is prominent but not james ottoniel different. No mediastinal or hilar new finding. Heart and vasculature are normal. No measurable pleural effusion and no pneumothorax. No acute bony abnormality seen. No acute aortic findings suspec laci. IMPRESSION: No acute cardiopulmonary process. Chest findings are similar to August 2019.
[2019-11-06] MEDS ORDERED: ONDANSETRON 4 MG/2 ML VIAL IV PRN (14:05)
[2019-11-06] MEDS ORDERED: ACETAMINOPHEN 500 MG TAB PO PRN (14:05)
[2019-11-06] MEDS ORDERED: ALBUTEROL 2.5 MG/3 ML NEB SOL NEB PRN (14:05)
--- NOTE | 2019-11-06 14:11 | P.HP ---
Certification for Inpatient Patient admitted to: Inpatient With expected LOS: >2 Midnights Patient will require the following post-hospital care: None Practitioner: I am a practitioner with admitting privileges, knowledge of patient current condition, hospital course, and medical plan of care. Services: Services provided to patient in accordance with Admission requirements found in Title 42 Section 412.3 of the Code of Federal Regulations Patient History Date of Service: 11/06/19 Reason for admission: Generalized weakness History of Present Illness: 59-year-old female with past medical history of chronic pain syndrome , arthritis, ? ADHD came to ER with generalized weakness. Patient was assessed in the ER and was found to have hypercalcemia and acute kidney injury and was admitted for further management. The patient is a poor historian. Denies any chest pain or shortness of breath. No fever no chills. No previous history of hypercalcemia. She has a longstanding history of chronic pain syndrome and arthritis and has been seen by the PCP. And was sent over here for hypocalcemia No previous history of parathyroid disorder. Allergies hydroxyzine HCl [From Vistaril] Allergy (Intermediate, Verified 08/12/12 20:37) Itching/Hives/Rash hydroxyzine pamoate [From Vistaril] Allergy (Intermediate, Verified 08/12/12 20:37) Itching/Hives/Rash meloxicam [From Mobic] Allergy (Intermediate, Verified 08/12/12 20:37) Itching/Hives/Rash NSAIDS (Non-Steroidal Anti-Inflamma Allergy (Intermediate, Verified 08/12/12 20:37) Nausea/Vomiting haloperidol [From Haldol] Allergy (Unverified 06/04/15 11:03) Unknown haloperidol lactate [From Haldol] Allergy (Unverified 06/04/15 11:03) Unknown hydroxyzine [From Vistaril] Allergy (Unverified 03/28/16 02:16) Unknown ibuprofen [From Motrin] Allergy (Unverified 06/04/15 11:04) Unknown nalbuphine HCl [From Nubain] Allergy (Unverified 06/04/15 11:04) Unknown naproxen [From Naprosyn] Allergy (Unverified 06/04/15 11:04) Unknown naproxen sodium [From Aleve] Allergy (Unverified 12/23/15 11:03) Unknown pregabalin [From Lyrica] Allergy (Unverified 03/28/16 02:16) Unknown miller Allergy (Uncoded 08/19/17 11:40) Unknown Sunitha Allergy (Uncoded 08/19/17 11:40) Unknown NSAIDS Allergy (Uncoded 08/19/17 11:40) Unknown NSAIDS (No Allergy (Uncoded 11/11/15 18:48) Unknown NSAIDS (Non-Stero Allergy (Uncoded 03/28/16 02:16) Unknown Home medications list reviewed: Yes - Past Medical/Surgical History Diabetic: No Past Medical History: Reviewed- Non-Contributory -: ADD/ADHD -: chronic pain syndrome -: restless leg syndrome -: bone problems -: tachycardia Past Surgical History: Reviewed- Non-Contributory -: feet fracture -: rib fracture - Family History Family History: Reviewed- Non-Contributory - Family History Father -: Cancer Notes: Parkinson's, lymph nodes Mother -: Hypertension Notes: hiatal hernia - Social History Smoking Status: Never smoker Alcohol use: Yes CD- Drugs: No Caffeine use: Yes Review of Systems 10-point ROS is otherwise unremarkable Physical Examination - Physical Exam General: Alert, In no apparent distress, Oriented x3 HEENT: Atraumatic, Normocephalic Neck: Supple, 2+ carotid pulse no bruit Respiratory: Clear to auscultation bilaterally, Normal air movement Cardiovascular: Normal pulses, Regular rate/rhythm Capillary refill: <2 Seconds Gastrointestinal: Normal bowel sounds, Soft and benign Musculoskeletal: No clubbing, No swelling, Tenderness, Other (Bilateral knee effusions, ) Integumentary: No rashes, No breakdown Neurological: Normal speech, Normal strength at 5/5 x4 extr Lymphatics: No axilla or inguinal lymphadenopathy Rectal: Deferred - Studies Laboratory Data (last 24 hrs) 11/06/19 10:33: PT 13.4 H, INR 1.14 11/06/19 10:33: WBC 8.1, Hgb 10.4 L, Hct 31.4 L, Plt Count 585 H 11/06/19 10:33: Sodium 139, Potassium 2.5 L*, BUN 28 H, Creatinine 1.81 H, Glucose 127 H, Magnesium 1.5 L, Total Bilirubin 0.1 L, AST 30, ALT 42, Alkaline Phosphatase 270 H Laboratory Last Values WBC 8.1 K/uL (4.3-10.9) 11/06/19 10:33 RBC 3.70 M/uL (3.86-4.86) L 11/06/19 10:33 Hgb 10.4 g/dL (12.0-15.0) L 11/06/19 10:33 Hct 31.4 % (36.0-45.0) L 11/06/19 10:33 MCV 85.1 fL (80-100) D 11/06/19 10:33 MCH 28.3 pg (27.0-35.0) 11/06/19 10:33 MCHC 33.2 g/dL (32.0-36.0) 11/06/19 10:33 RDW 15.5 % (12.1-15.2) H 11/06/19 10:33 Plt Count 585 K/uL (152-406) H 11/06/19 10:33 MPV 8.6 fL (7.6-11.3) 11/06/19 10:33 Neutrophils % 61.0 % (41.7-73.7) 11/06/19 10:33 Lymphocytes % 22.3 % (15.3-44.8) 11/06/19 10:33 Monocytes % 12.4 % (3.3-12.3) H 11/06/19 10:33 Eosinophils % 3.0 % (0-4.4) 11/06/19 10:33 Basophils % 1.3 % (0-1.3) 11/06/19 10:33 Absolute Neutrophils 4.9 K/uL (1.8-8.0) 11/06/19 10:33 Absolute Lymphocytes 1.8 K/uL (0.7-4.9) 11/06/19 10:33 Absolute Monocytes 1.0 K/uL (0.1-1.3) 11/06/19 10:33 Absolute Eosinophils 0.2 K/uL (0-0.5) 11/06/19 10:33 Absolute Basophils 0.1 K/uL (0-0.5) 11/06/19 10:33 PT 13.4 SECONDS (9.5-12.5) H 11/06/19 10:33 INR 1.14 11/06/19 10:33 Sodium 139 mmol/L (136-145) 11/06/19 10:33 Potassium 2.5 mmol/L (3.5-5.1) L* 11/06/19 10:33 Chloride 103 mmol/L (98-107) 11/06/19 10:33 Carbon Dioxide 31 mmol/L (21-32) 11/06/19 10:33 BUN 28 mg/dL (7-18) H 11/06/19 10:33 Creatinine 1.81 mg/dL (0.55-1.3) H 11/06/19 10:33 Estimated GFR 28 mL/min (=/>90) L 11/06/19 10:33 Glucose 127 mg/dL (74-106) H 11/06/19 10:33 Calcium 15.0 mg/dL (8.5-10.1) H* 11/06/19 10:33 Magnesium 1.5 mg/dL (1.8-2.4) L 11/06/19 10:33 Total Bilirubin 0.1 mg/dL (0.2-1.0) L 11/06/19 10:33 Direct Bilirubin < 0.1 mg/dL (0-0.2) 11/06/19 10:33 AST 30 U/L (15-37) 11/06/19 10:33 ALT 42 U/L (12-78) 11/06/19 10:33 Alkaline Phosphatase 270 U/L (45-117) H 11/06/19 10:33 Rapid Troponin I < 0.02 ng/mL (0.0-0.045) 11/06/19 10:33 NT-Pro-B Natriuret Pep 324 pg/mL (<125) H 11/06/19 10:33 Serum Total Protein 7.5 g/dL (6.4-8.2) 11/06/19 10:33 Albumin 3.4 g/dL (3.4-5.0) 11/06/19 10:33 Globulin 4.1 g/dL (2.3-3.5) H 11/06/19 10:33 Albumin/Globulin Ratio 0.8 (1.1-1.8) L 11/06/19 10:33 TSH 1.540 uIU/mL (0.360-3.740) 11/06/19 10:33 Free T4 1.12 ng/dL (0.76-1.46) 11/06/19 10:33 PTH Intact 35.9 pg/mL (18.4-80.1) 11/06/19 10:33 Assessment and Plan - Problems (Diagnosis) (1) Hypercalcemia Current Visit: Yes Status: Acute (2) Hypokalemia Current Visit: Yes Status: Acute (3) Acute kidney injury Current Visit: Yes Status: Acute (4) Chronic pain Current Visit: No Status: Chronic Qualifiers: Chronic pain type: chronic pain syndrome Qualified Code(s): G89.4 - Chronic pain syndrome - Advance Directives Does patient have a Living Will: No Does patient have a Durable POA for Healthcare: No Physician Review Additional Text: Hypercalcemia Hypokalemia Major Joint arthritis Acute kidney injury Chronic pain syndrome Plan Monitor closely under telemetry Pain control Aggressive hydration Replace electrolytes Will get a rheumatoid factor, PATI, serum protein electrophoresis, uric acid ESR Nephrology consult Continue home medications and titrate as needed Will get bilateral knee x-rays GI/DVT prophylaxis Advanced directives full code Time Spent Managing Pts Care (In Minutes): 40
[2019-11-06] MEDS ORDERED: HYDROCODONE/APAP 7.5/325 MG TAB PO PRN (15:50)
[2019-11-06] MEDS: D5.45NS W/KCL 20MEQ 1,000 ML IV SCH (16:27)
[2019-11-06] MEDS: ENOXAPARIN 40 MG/0.4 ML SQ SCH (16:28)
--- NOTE | 2019-11-06 17:10 | RAD REPORT ---
EXAM DESCRIPTION: RAD - Knee Right 3 View - 11/06/2019 4:24 pm CLINICAL HISTORY: PAIN COMPARISON: Knee Right 3 View dated 03/12/2016 FINDINGS: A moderate knee joint effusion is present. Mild arthritic changes are present in all 3 tucker nt compartments. No fracture or dislocation.
--- NOTE | 2019-11-06 17:11 | RAD REPORT ---
EXAM DESCRIPTION: RAD - Knee Left 2 View - 11/06/2019 4:25 pm CLINICAL HISTORY: PAIN Pain and swelling COMPARISON: Knee Left 3 View dated 03/12/2016 FINDINGS: Neol-ot-ydubxylx degenerative change involves the medial joint compartment. No acute fract ure seen. Small joint effusion evident. No significant change since 2016 comparative study.
[2019-11-06 19:33] LABS: Magnesium 2.1 mg/dL (1.8-2.4); Potassium 3.5 mmol/L (3.5-5.1)
[2019-11-06 19:44] LABS: Phosphorus 0.9 mg/dL (2.5-4.9)
[2019-11-06] MEDS ORDERED: POTASSIUM PHOS IN 0.9 % NACL 15 MMOL/250 ML BAG IV ONE ×3 (20:01→23:16)
[2019-11-06] MEDS: POTASSIUM 25 MEQ EFFERV TAB PO SCH (21:01)
[2019-11-06] MEDS: MORPHINE 2 MG/ML SYR IV PRN (22:17)
[2019-11-06 22:51] LABS: Urine Appearance CLOUDY; Urine Bilirubin NEGATIVE (NEG); Urine Blood NEGATIVE (NEG); Urine Color YELLOW; Urine Glucose NEGATIVE (NEG); Urine Protein NEGATIVE (NEG); Urine Urobilinogen 0.2 mg/dL (0.2-1.0); Urine pH 6.5 (5.0-7.0)
[2019-11-06 22:52] LABS: Urine Microscopic Reflex ORDER UMIC
[2019-11-06 23:28] LABS: Urine Culture Reflex Order REFLEXED; Urine Waxy Casts 0-5 /LPF (NONE SEEN)
[2019-11-06 23:29] LABS: Urine Bacteria <20 /HPF (<20); Urine RBC <5 /HPF (NONE SEEN); Urine Urothelial Cells <5 /HPF (NONE SEEN)
[2019-11-07] MEDS: D5.45NS W/KCL 20MEQ 1,000 ML IV SCH (00:31)
[2019-11-07] MEDS: NA CHLORIDE 0.9% 1,000 ML IV SCH ×2 (00:57→15:04)
[2019-11-07] MEDS ORDERED: NA CHLORIDE 0.9% 1,000 ML IV SCH (01:00)
--- NOTE | 2019-11-07 06:12 | EKG ---
Test Date: 2019-11-06 Test Time: 10:43:23 Race Board Attendant: FRANCO MEASUREMENT RESULTS: Intervals: Rate: 88 AK: 164 QRSD: 92 QT: 382 QTc: 462 [place]: P: 48 AK: 164 QRS: 20 T: 33 INTERPRETIVE STATEMENTS: Normal sinus rhythm Normal ECG Compared to ECG 06/21/2019 00:27:37 ST (T wave) deviation no longer present Prolonged QT interval no longer present Electronically Signed On 11-07-19 06:11:07 CDT by Nehemiah Mckinney
[2019-11-07 06:32] LABS: Potassium 4.6 mmol/L (3.5-5.1); Sodium Level 144 mmol/L (136-145)
[2019-11-07 06:33] LABS: Absolute Lymphocytes (CBC) 2.2 K/uL (0.7-4.9); Basophils % 0.1 % (0-1.3); Hematocrit 26.3 % (36.0-45.0); MPV 9.1 fL (7.6-11.3); RBC Red Blood Cell Count 3.03 M/uL (3.86-4.86)
[2019-11-07 06:37] LABS: Albumin 2.5 g/dL (3.4-5.0); BUN Blood Urea Nitrogen 26 mg/dL (7-18); Bicarbonate 22 mmol/L (21-32); Glucose Level 96 mg/dL (74-106); Magnesium 1.6 mg/dL (1.8-2.4)
[2019-11-07 06:40] LABS: ALT/SGPT 30 U/L (12-78); AST/SGOT 22 U/L (15-37)
[2019-11-07 06:41] LABS: Phosphorus 3.1 mg/dL (2.5-4.9); Protein, Total 5.7 g/dL (6.4-8.2)
[2019-11-07 06:42] LABS: Alkaline Phosphatase 214 U/L (45-117)
[2019-11-07] MEDS: MORPHINE 2 MG/ML SYR IV PRN ×4 (06:50→20:25)
[2019-11-07 06:59] LABS: Bilirubin Total < 0.1 mg/dL (0.2-1.0)
[2019-11-07] MEDS ORDERED: MAGNESIUM SULFATE 1 gm IVPB 1 GM/100 ML BAG IV ONE (09:00)
[2019-11-07] MEDS: POTASSIUM 25 MEQ EFFERV TAB PO SCH ×2 (09:02→20:25)
[2019-11-07] MEDS: ENOXAPARIN 40 MG/0.4 ML SQ SCH (09:03)
--- NOTE | 2019-11-07 09:20 | P.PN ---
Subjective Date of Service: 11/07/19 Chief Complaint: Generalized weakness Patient is complaining of pain in the bilateral knees, worse on the right. Physical Examination - Vital Signs Temperature: 97.1 F Blood Pressure: 135/60 Pulse: 81 Respirations: 16 Pulse Ox (%): 97 - Physical Exam General: Alert, In no apparent distress, Oriented x3, Cooperative HEENT: Mucous membr. moist/pink, Sclerae nonicteric Neck: Supple, JVD not distended Respiratory: Clear to auscultation bilaterally, Normal air movement Cardiovascular: No edema, Regular rate/rhythm, Normal S1 S2 Gastrointestinal: Normal bowel sounds, Soft and benign, Non-distended, No tenderness Musculoskeletal: Swelling (Bilateral knees, right greater than left.), Tenderness (Bilateral knees, right greater than left) Integumentary: No rashes Neurological: Normal speech, Normal strength at 5/5 x4 extr - Studies Laboratory Data (last 24 hrs) 11/06/19 10:33: PT 13.4 H, INR 1.14 11/06/19 10:33: WBC 8.1, Hgb 10.4 L, Hct 31.4 L, Plt Count 585 H 11/06/19 10:33: Sodium 139, Potassium 2.5 L*, BUN 28 H, Creatinine 1.81 H, Glucose 127 H, Magnesium 1.5 L, Total Bilirubin 0.1 L, AST 30, ALT 42, Alkaline Phosphatase 270 H Assessment And Plan Physician Review Additional Text: Hypercalcemia: Level normalized. Hypokalemia Major Joint arthritis Acute kidney injury; serum creatinine is trending down Chronic pain syndrome Plan Telemetry Pain control Continue IV hydration Replace electrolytes-phosphorus and magnesium as needed. Rheumatoid factor, PATI, serum protein electrophoresis are pending. I added to check vitamin-D levels. PTH within normal limit. Uric acid is slightly elevated Nephrology consult Continue home medications and titrate as needed X-ray of right knee: Moderate joint effusion. Trial of steroid for arthritis. Advanced directive: Full code. Time Spent Managing PTS Care (In Minutes): 34
[2019-11-07 11:23] LABS: Urine Protein/Creatinine Ratio 0.11 ratio (<0.15)
--- NOTE | 2019-11-07 14:22 | CON ---
Date of Consultation: 11/07/2019 Reason For Consultation: Elevated BUN and creatinine, hypercalcemia, hypokalemia, hypomagnesemia, hypophosphatemia. History Of Present Illness: This is a pleasant unfortunate 59-year-old female with significant past medical history of chronic pain syndrome; Meniere disease, diagnosed 2 years ago, placed on hydrochlorothiazide according to the patient. Patient came to the hospital because of elevation in calcium, referred from her doctor. Patient admits that she has been taking Tums 4-5 tablets 3-4 times a day for the last few weeks and again, patient has been on hydrochlorothiazide for the last 2 years. Patient's, upon arrival to the hospital, calcium was 15. Patient was started on aggressive hydration. Calcium today is down to 9.1. Patient denies taking any nonsteroidal. Denies any weight loss. Patient had nausea. Has some diarrhea for the last few days. Past Medical History: 1. Meniere disease, on hydrochlorothiazide. 2. Chronic pain syndrome. Allergies: 1. HYDROXYZINE. 2. MOBIC. 3. HALOPERIDOL. 4. IBUPROFEN. 5. LYRICA. 6. NAPROXEN. Home Medications: 1. Tums. 2. Hydrochlorothiazide. 3. Metoprolol. 4. Benadryl. 5. Estrogen. Current medications in the hospital include breathing treatment, Lovenox, magnesium sulfate, KCl, and IV fluid. Family History: Positive for hypertension. Social History: Denies smoking. Occasional alcohol. Denies drugs abuse. Review of Systems: Head and neck: Has headache. Has ear pain. GI: Has nausea. Has diarrhea. : Increased frequency with dysuria. 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 Respiratory: No shortness of breath. Cardiovascular: No chest pain. Endocrine: No polydipsia. Skin: No rash. Neuro: Has headache. Has low back pain. Musculoskeletal: Has bilateral knee pain, low back pain, and headache. Physical Examination: Vital Signs: When I saw the patient, blood pressure 135/60, pulse of 81, afebrile. Patient had good urine output. Chest: Clear to auscultation. Heart: S1, S2. Regular. Abdomen: Soft, nontender. Extremities: Swelling, both knees with tenderness. Difficulty ambulating. Trace edema. Neuro: Alert. No focality. Laboratory Data: WBC 6.9, H and H 8.5/26.3, platelets 437. Sodium 144, potassium 4.6, bicarb 22, BUN 26, creatinine 1.6, GFR of 31, calcium 9.1. Phosphorus 3.1, magnesium 1.6. Upon arrival to the hospital, sodium 139, potassium 2.5, bicarb 31, BUN 28, creatinine 1.8, calcium 15, GFR of 28, BNP 327. TSH 1.5, PTH 35. H and H 10.4/31.4. Urinalysis; specific gravity of 1.020, wbc 5-10. Reviewing the record from previous admission back in June, H and H 11.4/35.6. Creatinine at that time 3.2 with GFR of 14. Before that, back in March 2019, creatinine 0.8 with normal GFR of 68. No hypercalcemia before. Assessment And Plan: 1. Hypercalcemia, mostly multifactorial, secondary to milk-alkali syndrome, secondary to calcium carbonate intake, Tums, superimposed with hydrochlorothiazide use. PTH appropriately suppressed. We will follow up vitamin D level. I am going to continue with hydration currently and we will monitor. We will send for serum protein electrophoresis given the presence of the anemia and elevation in the calcium. Discontinue hydrochlorothiazide. 2. Acute kidney injury secondary to prerenal, secondary to gastrointestinal loss, superimposed with calcium diuresis secondary to hypercalcemia, superimposed with hydrochlorothiazide. I am going to continue hydration. Obstructive uropathy has been ruled out with CT. We will monitor. I am going to go ahead and send for protein, creatinine and we will follow up the patient. 3. Hypertension with the presence of acute kidney injury and hypercalcemia. Hold hydrochlorothiazide. 4. Pain syndrome. Follow up with the primary. 5. Hypokalemia, hypomagnesemia, status post supplement. We will follow up. MONIK Voice ID: [id number] Report ID: [id number] HERNÁN
[2019-11-07 16:21] LABS: Rheumatoid Factor NEG (NEG)
[2019-11-08] MEDS: NA CHLORIDE 0.9% 1,000 ML IV SCH ×3 (00:15→20:16)
[2019-11-08] MEDS: MORPHINE 2 MG/ML SYR IV PRN ×6 (00:47→23:00)
[2019-11-08 05:35] LABS: Magnesium 1.5 mg/dL (1.8-2.4); Potassium 4.3 mmol/L (3.5-5.1)
[2019-11-08] MEDS: PANTOPRAZOLE 40MG TABLET PO SCH (06:50)
[2019-11-08 06:57] LABS: Absolute Lymphocytes (CBC) 2.4 K/uL (0.7-4.9); Basophils % 0.4 % (0-1.3); Hematocrit 30.4 % (36.0-45.0); Lymphocytes % 27.6 % (15.3-44.8); MPV 8.3 fL (7.6-11.3)
[2019-11-08] MEDS ORDERED: MAGNESIUM SULFATE 1 gm IVPB 1 GM/100 ML BAG IV ONE ×2 (07:33→10:06)
[2019-11-08] MEDS ORDERED: Magnesium Sulfate 2gm IVPB 2 G/50 ML BAG IV ONE (08:00)
--- NOTE | 2019-11-08 08:52 | P.PN ---
Subjective Date of Service: 11/08/19 Chief Complaint: Generalized weakness Patient is complaining of pain in the bilateral knees, worse on the right. Serum calcium mass normalized.. Patient denies any diarrhea today. Physical Examination - Vital Signs Temperature: 97.7 F Blood Pressure: 148/67 Pulse: 90 Respirations: 18 Pulse Ox (%): 98 - Physical Exam General: In no apparent distress HEENT: Mucous membr. moist/pink Neck: Supple, JVD not distended Respiratory: Clear to auscultation bilaterally, Normal air movement Cardiovascular: Regular rate/rhythm, Normal S1 S2, Edema (1+ bilateral lower extremity edema) Gastrointestinal: Normal bowel sounds, Soft and benign, No tenderness Musculoskeletal: Swelling (Right knee) Integumentary: No rashes Neurological: Normal speech, Normal strength at 5/5 x4 extr Assessment And Plan Physician Review Additional Text: Hypercalcemia: Level normalized. Hypokalemia Major Joint arthritis Acute kidney injury; serum creatinine is trending down Chronic pain syndrome Right knee effusion Plan Pain control Continue IV hydration Replace electrolytes-phosphorus and magnesium as needed. Rheumatoid factor, serum protein electrophoresis are pending. PTH within normal limit. Uric acid is slightly elevated Nephrology consult appreciated. Continue home medications and titrate as needed X-ray of right knee: Moderate joint effusion. Orthopedic consult Continue steroid
[2019-11-08] MEDS: DICYCLOMINE HCL 10 MG CAP PO SCH ×2 (09:33→20:12)
[2019-11-08] MEDS: predniSONE 20 MG TAB PO SCH (09:34)
[2019-11-08] MEDS: ENOXAPARIN 40 MG/0.4 ML SQ SCH (09:34)
[2019-11-08] MEDS: POTASSIUM 25 MEQ EFFERV TAB PO SCH ×2 (09:34→20:13)
[2019-11-08] MEDS: DULOXETINE 30 MG CAP PO SCH (20:13)
[2019-11-08] MEDS: clonazePAM 1 MG TAB PO SCH (20:13)
--- NOTE | 2019-11-08 21:51 | PN ---
Date of Progress Note: 11/08/2019 History Of Present Illness: The patient was admitted with acute kidney injury, hypercalcemia secondary to milk-alkali. The patient was started on admission on aggressive hydration. Workup showed suppressed PTH. Physical Examination: Vital Signs: When I saw the patient, blood pressure 139/66, pulse of 94. Patient had good urine output. Chest: Clear to auscultation. HEART: S1, S2. Regular. Abdomen: Soft, nontender. Extremities: No edema. Neuro: The patient had low back pain. Laboratory Data: WBC 8.6, H and H 9.9/30.4, platelets 504. Sodium 143, potassium 4.3, bicarb 24, BUN 18, creatinine 1, GFR of 51, calcium 8.5, magnesium 1.5. Current Medications: The patient is on include Tylenol, clonazepam, pantoprazole, prednisone, magnesium oxide, KCl. Assessment And Plan: 1. 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 I reinforce for the patient to avoid any Tums. 2. Acute kidney injury secondary to prerenal, recovered, resolved. 3. Hypophosphatemia and hypomagnesemia, status post supplement, resolved. 4. Hypertension, controlled, optimal in the present of YULIA and milk alkalin syndrome. Keep holding the hydrochlorothiazide with the presence of acute kidney injury. Keep holding ARB for the time being. Continue to control. We will monitor. 5. Chronic pain syndrome. We will follow up with the primary. The patient is cleared from the renal standpoint for discharge planning. To follow up in the office in 2-3 weeks. MONIK Voice ID: [id number] Report ID: [id number] HERNÁN
--- NOTE | 2019-11-09 00:27 | CON ---
Date of Consultation: 11/08/2019 History Of Present Illness: This is my first time seeing this patient to my knowledge. She is 59-ye ar-old female who unfortunately has been admitted to the hospital for significant metabolic and elect rolyte disturbances, which obviously being treated by another physician. I am called to see her bettie use of complaints of pain and swelling in the right knee. Physical Examination: She is able to perform a straight leg raise. She does have a 1+ effusion to her knee. There is no e rythema or sign of infection. Does not appear to be related to her hip. She is complaining of some swelling throughout her right lower extremity. Imaging Data: Review of x-rays demonstrate some [id number] degenerative changes of the right k nee. Assessment: Because she does have swelling throughout the lower extremity, this could be associated with perhaps other problems would consider possible venous Doppler, even though she is on anticoagula nt. Now, there is possibility that this test could be beneficial, especially at time to further justin ge this at time of discharge. Otherwise, it is very reasonable that her pain is coming from arthriti c changes as well as overall swelling and she has been placed on prednisone. I will see how this howe s. Obviously, a MRI could be performed. However, I do not think any emergent surgical intervention is warranted and see how her knee response to the prednisone. Obviously, there is a possibility of a spiration injection. However, she is currently receiving prednisone as well as other medical care an d I think this is probably better done once her medical issues have cleared in an outpatient setting and definitely could see me in my office with the possibility that, otherwise she has request for a p rescription for a walker, is definitely reasonable. However, we will leave that to the admitting physician. Otherwise, I think we can see her on an outpatient basis. /MC Voice ID: [id number] Report ID: [id number]
[2019-11-09] MEDS: MORPHINE 2 MG/ML SYR IV PRN ×3 (04:13→17:53)
[2019-11-09] MEDS: NA CHLORIDE 0.9% 1,000 ML IV SCH (05:14)
[2019-11-09 05:54] LABS: Potassium 4.4 mmol/L (3.5-5.1)
[2019-11-09] MEDS: PANTOPRAZOLE 40MG TABLET PO SCH (05:54)
[2019-11-09 06:06] LABS: Absolute Lymphocytes (CBC) 1.9 K/uL (0.7-4.9); Basophils % 1.1 % (0-1.3); Hematocrit 49.8 % (36.0-45.0); Lymphocytes % 21.7 % (15.3-44.8); MPV 8.7 fL (7.6-11.3); RBC Red Blood Cell Count 5.73 M/uL (3.86-4.86)
--- NOTE | 2019-11-09 07:34 | P.DS ---
Admission Date: 11/06/19 Discharge Date: 11/09/19 Disposition: ROUTINE DISCHARGE Discharge Condition: FAIR Reason for Admission: Generalized weakness Consultations: Nephrology Orthopedic surgery Procedures: None Brief History of Present Illness: 59-year-old woman with a history of chronic arthritis, ADHD presented to the emergency department with a complaint of generalized weakness. Patient was found to have hypercalcemia and acute renal failure and was admitted for further management. Hospital Course: Patient was admitted to the medical floor and aggressively hydrated with IV fluids. Patient endorsed taking antacid about 4 times per day for acid reflux. Patient was seen and evaluated by nephrology-Dr. De Jesus. 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 Hydrochlorothiazide was discontinued. Her calcium level responded to IV hydration and reduced to normal. Acute renal failure also resolved with IV hydration. Patient noted to have anemia. Protein electrophoresis results for multiple myeloma is pending to be followed as an outpatient. Patient was complaining of bilateral knee pain. Her right knee was more swollen. X-ray of the knee is reported right knee effusion. Patient was seen by orthopedic-Dr. Solitario who plans follow her as an outpatient. She is placed on a trial of oral prednisone. She had edema of both lower extremities. Venous Doppler of the lower extremities--- Vital Signs/Physical Exam: Temp Pulse Resp BP Pulse Ox 97.6 F 93 H 18 149/64 H 98 11/09/19 04:00 11/09/19 04:00 11/09/19 04:43 11/09/19 04:00 11/09/19 04:43 General: Alert, In no apparent distress, Oriented x3 HEENT: Mucous membr. moist/pink Neck: Supple, JVD not distended Respiratory: Clear to auscultation bilaterally, Normal air movement Cardiovascular: Regular rate/rhythm, Normal S1 S2, Edema (Bilateral lower extremities.) Gastrointestinal: Normal bowel sounds, Soft and benign, Non-distended, No t enderness Musculoskeletal: Swelling (Bilateral knee swelling, right greater than left.) Integumentary: No rashes Neurological: Normal strength at 5/5 x4 extr Laboratory Data at Discharge: WBC 8.9 K/uL (4.3-10.9) 11/09/19 05:01 Hgb 15.7 g/dL (12.0-15.0) H D 11/09/19 05:01 Hct 49.8 % (36.0-45.0) H D 11/09/19 05:01 Plt Count 207 K/uL (152-406) D 11/09/19 05:01 PT 13.4 SECONDS (9.5-12.5) H 11/06/19 10:33 INR 1.14 11/06/19 10:33 Sodium 141 mmol/L (136-145) 11/09/19 05:01 Potassium 4.4 mmol/L (3.5-5.1) 11/09/19 05:01 BUN 14 mg/dL (7-18) 11/09/19 05:01 Creatinine 0.97 mg/dL (0.55-1.3) 11/09/19 05:01 Glucose 86 mg/dL (74-106) 11/09/19 05:01 Uric Acid 6.7 mg/dL (2.6-6.0) H 11/06/19 16:26 Phosphorus 3.1 mg/dL (2.5-4.9) D 11/07/19 05:18 Magnesium 2.5 mg/dL (1.8-2.4) H D 11/08/19 13:43 Total Bilirubin < 0.1 mg/dL (0.2-1.0) L 11/07/19 05:18 AST 22 U/L (15-37) 11/07/19 05:18 ALT 30 U/L (12-78) 11/07/19 05:18 Alkaline Phosphatase 214 U/L (45-117) H 11/07/19 05:18 Home Medications: Dicyclomine HCl 20 mg PO BID 11/06/19 Diphenhydramine [Benadryl*] 1 tab PO BID 11/06/19 Estrogens, Conjugated [Premarin] 1.25 mg PO DAILY 11/06/19 Lansoprazole 30 mg PO DAILY 11/06/19 Metoprolol Tartrate [Lopressor*] 50 mg PO TID 11/06/19 clonazePAM [Clonazepam] 1 mg PO BEDTIME 11/06/19 Duloxetine HCl [Cymbalta] 30 mg PO BEDTIME #30 cap 11/09/19 predniSONE [Prednisone*] 20 mg PO DAILY #5 tab 11/09/19 New Medications: Duloxetine HCl [Cymbalta] 30 mg PO BEDTIME #30 cap predniSONE [Prednisone*] 20 mg PO DAILY #5 tab Diet: AHA Activity: Fall precautions Followup: Alexandru Solitario MD [ACTIVE - CAN ADMIT] - 1-2 Weeks Time spent managing pt's care (in minutes): 40
--- NOTE | 2019-11-09 08:11 | RAD REPORT ---
EXAM DESCRIPTION: US - Extrem Venous W Compress Jose Elias - 11/09/2019 8:05 am CLINICAL HISTORY: Bilatersl leg swelling COMPARISON: None. TECHNIQUE: Real-time sonographic evaluation of the bilateral lower extremity common femoral, superfi cial femoral, popliteal and posterior tibial veins was performed. FINDINGS: Normal compressibility, flow augmentation, phasic flow and spontaneous flow are identified in the left and right lower extremity common femoral, superficial femoral, popliteal and posterior t ibial veins. No intraluminal filling defects seen. IMPRESSION: No DVT in either lower extremity.
[2019-11-09] MEDS: DICYCLOMINE HCL 10 MG CAP PO SCH ×2 (08:29→20:27)
[2019-11-09] MEDS: ENOXAPARIN 40 MG/0.4 ML SQ SCH (08:29)
[2019-11-09] MEDS: predniSONE 20 MG TAB PO SCH (08:29)
[2019-11-09] MEDS: POTASSIUM CL SA 10 MEQ TAB PO SCH ×2 (09:00→20:27)
[2019-11-09] MEDS ORDERED: HALOPERIDOL LACT 5 MG/ML INJ IV ONE (19:27)
[2019-11-09] MEDS: DULOXETINE 30 MG CAP PO SCH (20:27)
[2019-11-09] MEDS: clonazePAM 1 MG TAB PO SCH (20:27)
[2019-11-10] MEDS: MORPHINE 2 MG/ML SYR IV PRN ×6 (01:05→22:24)
[2019-11-10] MEDS: PANTOPRAZOLE 40MG TABLET PO SCH (05:26)
--- NOTE | 2019-11-10 07:44 | P.PN ---
Subjective Date of Service: 11/10/19 Chief Complaint: Generalized weakness Patient stating her knee pain is better. She has been ambulating with a walker. Patient report she is living in a dilapidated room with exposure to rate, snake. She also states she receives threats from her mother and father. It appears the mother found garden tomeka and a matchett in her room. Patient states she uses the matchett and the garden tomeka to kill rats and snakes that come to her room. She endorsed psychiatric issues including major depression and suicidal ideation in the past. She has followed with a psychologist and have gone through [facility] procedures. At the moment, she denies any suicidal ideation. She denies any feeling of guilt or sadness or hopelessness. She is eager to go home to take care of her dog. She refused placement in an inpatient psych unit. Physical Examination - Vital Signs Temperature: 97.9 F Blood Pressure: 127/60 Pulse: 93 Respirations: 18 Pulse Ox (%): 97 - Physical Exam General: Alert, In no apparent distress, Oriented x3 HEENT: Mucous membr. moist/pink, Sclerae nonicteric Neck: Supple, JVD not distended Respiratory: Clear to auscultation bilaterally, Normal air movement Cardiovascular: Regular rate/rhythm, Normal S1 S2, Edema (1+ bilateral lower extremity pitting edema) Gastrointestinal: Normal bowel sounds, Soft and benign, No tenderness Musculoskeletal: Swelling (Bilateral knees, right greater than left.) Integumentary: No rashes Neurological: Normal speech, Normal strength at 5/5 x4 extr Assessment And Plan - Current Problems (Diagnosis) (1) Hypercalcemia Current Visit: Yes Status: Acute (2) ADD (attention deficit disorder) Current Visit: No Status: Acute Qualifiers: Hyperactivity presence: present Attention deficit-hyperactivity disorder type: unspecified Qualified Code(s): F90.9 - Attention-deficit hyperactivity disorder, unspecified type (3) Chronic pain Current Visit: No Status: Chronic Qualifiers: Chronic pain type: chronic pain syndrome Qualified Code(s): G89.4 - Chronic pain syndrome Physician Review Additional Text: Hypercalcemia: Level normalized. Hypokalemia Major Joint arthritis Acute kidney injury; serum creatinine is trending down Chronic pain syndrome Right knee effusion. Anxiety and depression History of suicide attempt. Plan IV fluid discontinued Rheumatoid factor negative, serum protein electrophoresis are pending. PTH within normal limit. Nephrology input appreciated Continue home medications and titrate as needed X-ray of right knee: Moderate joint effusion. Orthopedic consult appreciated. He recommend to continue steroid and outpatient follow-up. Patient is currently ambulating with a walker. Venous Doppler of lower extremities negative for DVT. Regarding her psych problems and social issues would recommend to keep patient here until her home situation has been adequately assessed. Adult home prot ective Services are involved per nurse. She is currently not suicidal. Patient has refused inpatient psych placement.
[2019-11-10] MEDS: ENOXAPARIN 40 MG/0.4 ML SQ SCH (09:00)
[2019-11-10] MEDS: POTASSIUM CL SA 10 MEQ TAB PO SCH ×2 (09:16→21:10)
[2019-11-10] MEDS: predniSONE 20 MG TAB PO SCH (09:16)
[2019-11-10] MEDS: DICYCLOMINE HCL 10 MG CAP PO SCH ×2 (09:16→21:10)
--- NOTE | 2019-11-10 14:39 | P.PN ---
Subjective Date of Service: 11/10/19 Chief Complaint: Generalized weakness Subjective Pt was admitted with yulia and hypecalcemia cr improved on IVF today pain better controlled Cr 1.0 off IVF pending placement Physical Examination: general; awake and alert, in mild distress neck: supple, no elevatd JV Chest: Clear to auscultation. HEART: S1, S2. Regular. Abdomen: Soft, nontender. Extremities: trace edema. A/P YULIA resolved due to prernal azotemia +/- NSAID hypokalmeia cont KCL hypercalemia due to dehydration chronic pain pain control avoid NSAID total time spent 30min Physical Examination - Vital Signs Temperature: 97.9 F Blood Pressure: 136/63 Pulse: 94 Respirations: 16 Pulse Ox (%): 97 Assessment And Plan Physician Review Additional Text: Hypercalcemia: Level normalized. Hypokalemia Major Joint arthritis Acute kidney injury; serum creatinine is trending down Chronic pain syndrome Right knee effusion. Anxiety and depression History of suicide attempt. Plan IV fluid discontinued Rheumatoid factor negative, serum protein electrophoresis are pending. PTH within normal limit. Nephrology input appreciated Continue home medications and titrate as needed X-ray of right knee: Moderate joint effusion. Orthopedic consult appreciated. He recommend to continue steroid and outpatient follow-up. Patient is currently ambulating with a walker. Venous Doppler of lower extremities negative for DVT. Regarding her psych problems and social issues would recommend to keep patient here until her home situation has been adequately assessed. Adult home protective Services are involved per nurse. She is currently not suicidal. Patient has refused inpatient psych placement.
[2019-11-10] MEDS: DULOXETINE 30 MG CAP PO SCH (21:10)
[2019-11-10] MEDS: clonazePAM 1 MG TAB PO SCH (21:10)
[2019-11-10 23:24] LABS: Vitamin D 1,25-Dihydroxy Total 12 pg/mL (18-72); Vitamin D,1,25-OH2, D2 <8 pg/mL
[2019-11-11] MEDS ORDERED: DILTIAZEM INJ 125 MG in NA CHLORIDE 0.9% 100 ML IVPB PRN (00:46)
[2019-11-11] MEDS ORDERED: NA CHLORIDE 0.9% 1,000 ML IV ONE (00:47)
[2019-11-11] MEDS ORDERED: dilTIAZem HCL 25 MG/5 ML VIAL IV ONE ×2 (00:59→01:04)
[2019-11-11] MEDS ORDERED: NA CHLORIDE 0.9% 100 ML ONE (01:03)
[2019-11-11 02:29] LABS: BUN Blood Urea Nitrogen 24 mg/dL (7-18); Bicarbonate 20 mmol/L (21-32); Glucose Level 107 mg/dL (74-106); Potassium 4.3 mmol/L (3.5-5.1); Sodium Level 141 mmol/L (136-145); Troponin I < 0.02 ng/mL (0.0-0.045)
[2019-11-11 02:31] LABS: Magnesium 1.4 mg/dL (1.8-2.4)
[2019-11-11] MEDS ORDERED: Magnesium Sulfate 2gm IVPB 2 G/50 ML BAG IV ONE (02:32)
[2019-11-11] MEDS: MORPHINE 2 MG/ML SYR IV PRN ×5 (02:36→21:34)
[2019-11-11 05:19] LABS: Absolute Lymphocytes (CBC) 2.5 K/uL (0.7-4.9); Basophils % 1.2 % (0-1.3); Hematocrit 30.5 % (36.0-45.0); MPV 8.5 fL (7.6-11.3); RBC Red Blood Cell Count 3.49 M/uL (3.86-4.86)
[2019-11-11 05:32] LABS: Potassium 4.4 mmol/L (3.5-5.1)
[2019-11-11] MEDS: PANTOPRAZOLE 40MG TABLET PO SCH (06:30)
[2019-11-11 07:01] VITALS: BMI 27.8
--- NOTE | 2019-11-11 07:44 | P.PN ---
Subjective Date of Service: 11/11/19 Chief Complaint: Generalized weakness Patient developed SVT last night and became borderline hypotensive. She experienced palpitation briefly and then was asymptomatic. Heart rate was up to 185. She was transferred to the ICU and started on Cardizem drip. Patient converted to sinus rhythm and a Cardizem drip. Her heart rate is currently in the 80s and systolic blood pressure in the 120s. Physical Examination - Vital Signs Temperature: 97.7 F Blood Pressure: 110/52 Pulse: 73 Respirations: 14 Pulse Ox (%): 96 - Physical Exam General: Alert, In no apparent distress, Oriented x3 HEENT: Mucous membr. moist/pink, Sclerae nonicteric Neck: Supple, JVD not distended Respiratory: Clear to auscultation bilaterally, Normal air movement Cardiovascular: Regular rate/rhythm, Normal S1 S2, Edema (1+ bilateral lower extremity pitting edema) Capillary refill: <2 Seconds Gastrointestinal: Normal bowel sounds, Soft and benign, No tenderness Musculoskeletal: Swelling (Bilaterally, worse on the right.), Tenderness (Right knee.) Integumentary: No rashes, No erythema Neurological: Normal strength at 5/5 x4 extr Assessment And Plan - Current Problems (Diagnosis) (1) SVT (supraventricular tachycardia) Current Visit: Yes Status: Acute (2) Hypercalcemia Current Visit: Yes Status: Acute (3) ADD (attention deficit disorder) Current Visit: No Status: Acute Qualifiers: Hyperactivity presence: present Attention deficit-hyperactivity disorder type: unspecified Qualified Code(s): F90.9 - Attention-deficit hyperactivity disorder, unspecified type (4) Chronic pain Current Visit: No Status: Chronic Qualifiers: Chronic pain type: chronic pain syndrome Qualified Code(s): G89.4 - Chronic pain syndrome Physician Review Additional Text: Hypercalcemia: Level normalized. Hypokalemia Major Joint arthritis Acute kidney injury; serum creatinine is trending down Chronic pain syndrome Right knee effusion. Anxiety and depression History of suicide attempt. Plan Discontinue IV started last night. Weaned off Cardizem drip. Start oral metoprolol Cardiology consult Nephrology is following. X-ray of right knee: Moderate joint effusion. Orthopedic consult appreciated. He recommend to continue steroid and outpatient follow-up. Patient is currently ambulating with a walker. Venous Doppler of lower extremities negative for DVT. Regarding her psych problems and social issues would recommend to keep patient here until her home situation has been adequately assessed. Adult home protective Services are involved per nurse. She is currently not suicidal. Patient has refused inpatient psych placement.
[2019-11-11] MEDS: predniSONE 20 MG TAB PO SCH (08:00)
[2019-11-11] MEDS: POTASSIUM CL SA 10 MEQ TAB PO SCH ×2 (08:01→21:20)
[2019-11-11] MEDS: ENOXAPARIN 40 MG/0.4 ML SQ SCH (08:01)
[2019-11-11] MEDS: METOPROLOL TAR 25 MG TAB PO SCH ×2 (08:16→21:21)
[2019-11-11] MEDS: DICYCLOMINE HCL 10 MG CAP PO SCH ×2 (09:08→21:18)
--- NOTE | 2019-11-11 10:33 | P.PN ---
Subjective Date of Service: 11/11/19 Chief Complaint: Generalized weakness Subjective Pt was admitted with yulia and hypecalcemia cr improved on IVF , Pt developed SVT , moved to ICU and started on Cardizem drip today Hr WNL off cardizim drip Physical Examination: general; awake and alert, in mild distress neck: supple, no elevatd JV Chest: Clear to auscultation. HEART: S1, S2. Regular. Abdomen: Soft, nontender. Extremities: trace edema. A/P YULIA resolved due to prernal azotemia +/- NSAID hypokalmeia cont KCL hypercalemia due to dehydration chronic pain pain control avoid NSAID Rt Knee swelling Moderate joint effusion W/U as an OP total time spent 30min Physical Examination - Vital Signs Temperature: 97.7 F Blood Pressure: 96/38 Pulse: 68 Respirations: 15 Pulse Ox (%): 98
--- NOTE | 2019-11-11 14:05 | EKG ---
Test Date: 2019-11-11 Test Time: 00:37:45 Library Clerical Assistant: RT MEASUREMENT RESULTS: Intervals: Rate: 99 HI: 132 QRSD: 76 QT: 346 QTc: 444 Burt: P: 57 HI: 132 QRS: 44 T: 41 INTERPRETIVE STATEMENTS: Normal sinus rhythm Normal ECG Compared to ECG 11/06/2019 10:43:23 No significant changes Electronically Signed On 11-11-19 14:05:09 CDT by Nehemiah Mckinney
--- NOTE | 2019-11-11 20:27 | CON ---
Date of Consultation: 11/11/2019 Reason For Consultation: Supraventricular tachycardia. History Of Present Illness: This is a 59-year-old female who was admitted to the hospital because of some abnormal labs apparently and she was found to have a high heart rate and she was in SVT. She w as started on Cardizem drip and then she converted to sinus rhythm. Cardizem drip was discontinued. The patient denied having any chest pain, no shortness of breath. Denies having any cardiac history . Apparently, her blood work showed significantly abnormal electrolytes, mainly magnesium was at 1.4 , which was replaced successfully and her potassium has been normal. Past Medical History: Attention deficit disorder, chronic pain syndrome, restless legs syndrome. Past Surgical History: Foot fracture surgery. Medications: Refer to reconciliation sheet for detailed list. Allergies: MULTIPLE DRUG ALLERGIES. ALLERGIES WERE REVIEWED. PLEASE REFER TO THE NURSE'S NOTES FOR THAT. Family History: No premature coronary artery disease or cancer. Social History: She does not smoke or drink. Does not use any drugs. Review of Systems: All systems reviewed and they were negative except what is mentioned in the HPI. Physical Examination: Vital Signs: Temperature 97.8, pulse 80, breathing at 14, blood pressure is 110/58, saturating 100%. General: Pleasant middle-aged female, in no apparent distress. Head And Neck: Pupils are equal and reactive to light. Intact eye movements. No JVD. No cervical lymphadenopathy. Neck: Supple. Thyroid is not enlarged. Lungs: Clear to auscultation bilaterally. No rhonchi, rales, or crackles. No accessory muscle use. Heart: Regular rate and rhythm. No extra sounds. Abdomen: Soft, nontender. Bowel sounds positive. No organomegaly. No masses or hernia. No rigidi ty or rebound. Extremities: Edema, bilaterally. No clubbing or cyanosis. Intact pulses. Skin: No rash. Neurologic: Alert, awake, oriented x3. No acute focal deficits appreciated. Investigations: CT scan abdomen, pelvis, and chest with contrast showed no abnormalities. Assessment And Plan: 1.Supraventricular tachycardia, confirmed by EKG. She converted to sinus rhythm. Recommend startin g low-dose beta rosy, metoprolol 25 mg twice a day and adjust further if needed and obtain echocar diogram. 2.Electrolyte imbalance. This was replaced successfully. Thank you for the consultation. /MC Voice ID: [id number] Report ID: [id number]
[2019-11-11] MEDS: DULOXETINE 30 MG CAP PO SCH (21:19)
[2019-11-11] MEDS: clonazePAM 1 MG TAB PO SCH (21:19)
[2019-11-11 21:53] LABS: Albumin, (SPE) 3.4 g/dL (3.8-4.8); Alpha-1-Globulins 0.4 g/dL (0.2-0.3); Gamma Globulins 0.6 g/dL (0.8-1.7); INTERPRETATION REPORT
[2019-11-12] MEDS: MORPHINE 2 MG/ML SYR IV PRN ×4 (01:13→13:07)
[2019-11-12 04:57] LABS: Absolute Lymphocytes (CBC) 2.6 K/uL (0.7-4.9); Basophils % 1.5 % (0-1.3); Hematocrit 27.7 % (36.0-45.0); Lymphocytes % 25.8 % (15.3-44.8); MPV 8.6 fL (7.6-11.3); RBC Red Blood Cell Count 3.11 M/uL (3.86-4.86)
[2019-11-12 05:01] LABS: Phosphorus 1.5 mg/dL (2.5-4.9); Potassium 4.7 mmol/L (3.5-5.1)
[2019-11-12] MEDS: PANTOPRAZOLE 40MG TABLET PO SCH (05:15)
[2019-11-12 05:35] LABS: Magnesium 1.8 mg/dL (1.8-2.4)
[2019-11-12] MEDS: POTASS/SODIUM PHOSPHATE 1 PKT POWD.PACK PO SCH ×3 (06:30→07:43)
[2019-11-12] MEDS: ENOXAPARIN 40 MG/0.4 ML SQ SCH (07:42)
[2019-11-12] MEDS: predniSONE 20 MG TAB PO SCH (07:42)
[2019-11-12] MEDS: DICYCLOMINE HCL 10 MG CAP PO SCH (07:42)
[2019-11-12] MEDS: METOPROLOL TAR 25 MG TAB PO SCH (07:42)
[2019-11-12] MEDS: POTASSIUM CL SA 10 MEQ TAB PO SCH (07:42)
--- NOTE | 2019-11-12 07:49 | P.PN ---
Subjective Date of Service: 11/12/19 Chief Complaint: Generalized weakness Brief stay in the ICU. Patient's heart rate has improved, been in sinus rhythm since yesterday. Vitals have been stable. She stated her right knee pain and swelling have improved. Physical Examination - Vital Signs Temperature: 97.5 F Blood Pressure: 122/59 Pulse: 76 Respirations: 18 Pulse Ox (%): 97 - Physical Exam General: Alert, In no apparent distress HEENT: Mucous membr. moist/pink Neck: Supple, JVD not distended Respiratory: Clear to auscultation bilaterally, Normal air movement Cardiovascular: Normal pulses, Regular rate/rhythm, Normal S1 S2, Edema (1+ bilateral lower extremity pitting edema) Gastrointestinal: Normal bowel sounds, Soft and benign, No tenderness Musculoskeletal: Swelling (Right knee-improved, less tender.) Integumentary: No rashes Neurological: Normal strength at 5/5 x4 extr Assessment And Plan - Current Problems (Diagnosis) (1) SVT (supraventricular tachycardia) Current Visit: Yes Status: Acute (2) Hypercalcemia Current Visit: Yes Status: Acute (3) ADD (attention deficit disorder) Current Visit: No Status: Acute Qualifiers: Hyperactivity presence: present Attention deficit-hyperactivity disorder type: unspecified Qualified Code(s): F90.9 - Attention-deficit hyperactivity disorder, unspecified type (4) Chronic pain Current Visit: No Status: Chronic Qualifiers: Chronic pain type: chronic pain syndrome Qualified Code(s): G89.4 - Chronic pain syndrome Physician Review Additional Text: Hypercalcemia: Level normalized. Hypokalemia Major Joint arthritis Acute kidney injury; serum creatinine is trending down Chronic pain syndrome Right knee effusion. Anxiety and depression History of suicide attempt. Plan Off Cardizem drip. On low dose metoprolol l Cardiology consult appreciated. Nephrology is following. X-ray of right knee: Moderate joint effusion. Orthopedic consult appreciated. He recommend to continue steroid and outpatient follow-up. Patient is currently ambulating with a walker. Right Knee pain and swelling have significantly improved. Slated for 5 days of oral steroid therapy. 2 more days then D/C. Venous Doppler of lower extremities negative for DVT. She will need her home situation assessed for safety prior to discharge. Adult home protective Services are involved per nurse. She is currently not suicidal. Patient has refused inpatient psych placement.
[2019-11-12] MEDS ORDERED: MAGNESIUM SULFATE 1 gm IVPB 1 GM/100 ML BAG IV ONE (09:00)
[2019-11-12 09:39] VITALS: O2SAT 97
--- NOTE | 2019-11-12 13:14 | EDPHYS ---
Physician Documentation [facility] Name: Martha Pradhan Age: 59 yrs Sex: Female : 1960 Arrival Date: 11/06/2019 Time: 10:04 Bed 5 Private MD: ED Physician Bryon Rivera HPI: 11/05 12:07 This 59 yrs old Female presents to ER via Wheelchair with complaints of jr8 Abnormal Lab Results. 12:07 Patient was sent to ED for further evaluation for abnormally high Calcium level. Talked jr8 to patients PCP who stated that patients calcium was 19 about 4 days ago. Had been trying to reach her but just picked up today and was instructed to come to ED. Patient stated that she has been having nausea, diarrhea, cough, chest tightness, shortness of breath, body aches. Stated that she has been on a few rounds of Abx and steroids thinking that it was sinus infection. Went to PCP and had blood drawn the other day . Severity of symptoms: At their worst the symptoms were moderate in the emergency department the symptoms are unchanged. The patient has not experienced similar symptoms in the past. The patient has been recently seen by a physician:. Historical: - Allergies: 10:20 Demerol; ph 10:20 haloperidol lactate; ph 10:20 hydroxyzine HCl; ph 10:20 Hydroxyzine Pamoate; ph 10:20 Ibuprofen; ph 10:20 Lyrica; ph 10:20 meloxicam; ph 10:20 nalbuphine HCl; ph 10:20 Naproxen Sodium; ph 10:20 NSAIDS (Non-Steroidal Anti-Inflammatory Drug); ph 10:20 Nubain; ph 10:20 Vistaril; ph - Home Meds: 10:20 Bentyl 20 mg Oral tab 1 tab 3 times per day [Active]; hydrochlorothiazide 12.5 mg Oral ph tab 1 tab once daily [Active]; Klonopin 1 mg Oral tab 1 tab 2 times per day [Active]; lansoprazole 30 mg Oral cpDR 1 cap once daily [Active]; metoprolol tartrate 50 mg Oral tab 1 tab 3 times per day [Active]; Premarin 1.25 mg Oral tab 1 tab once daily [Active]; - PMHx: 10:20 ADD/ADHD; Anxiety; Arthritis; Back pain; Chronic pain; Irritable bowel syndrome; ph restless leg syndrome; Osteoporosis; Tachycardia; - Immunization history:: Adult Immunizations unknown. - Social history:: Smoking status: Patient/guardian denies using tobacco, the patient reports quitting approximately 8 years ago. ROS: 12:07 Eyes: Negative for injury, pain, redness, and discharge, ENT: Negative for injury, jr8 pain, and discharge, Neck: Negative for injury, pain, and swelling, Back: Negative for injury and pain, MS/Extremity: Negative for injury and deformity, Skin: Negative for injury, rash, and discoloration, Neuro: Negative for headache, weakness, numbness, tingling, and seizure. 12:07 Constitutional: Positive for body aches. 12:07 Cardiovascular: Positive for chest pain, Negative for edema, orthopnea, palpitations, paroxysmal nocturnal dyspnea. 12:07 Respiratory: Positive for cough, dyspnea on exertion, shortness of breath. 12:07 Abdomen/GI: Positive for nausea, diarrhea. Exam: 12:07 Eyes: Pupils equal round and reactive to light, extra-ocular motions intact. Lids and jr8 lashes normal. Conjunctiva and sclera are non-icteric and not injected. Cornea within normal limits. Periorbital areas with no swelling, redness, or edema. ENT: Nares patent. No nasal discharge, no septal abnormalities noted. Tympanic membranes are normal and external auditory canals are clear. Oropharynx with no redness, swelling, or masses, exudates, or evidence of obstruction, uvula midline. Mucous membranes moist. Neck: Trachea midline, no thyromegaly or masses palpated, and no cervical lymphadenopathy. Supple, full range of motion without nuchal rigidity, or vertebral point tenderness. No Meningismus. Cardiovascular: Regular rate and rhythm with a normal S1 and S2. No gallops, murmurs, or rubs. Normal PMI, no JVD. No pulse deficits. Respiratory: Lungs have equal breath sounds bilaterally, clear to auscultation and percussion. No rales, rhonchi or wheezes noted. No increased work of breathing, no retractions or nasal flaring. Abdomen/GI: Soft, non-tender, with normal bowel sounds. No distension or tympany. No guarding or rebound. No evidence of tenderness throughout. Back: No spinal tenderness. No costovertebral tenderness. Full range of motion. Skin: Warm, dry with normal turgor. Normal color with no rashes, no lesions, and no evidence of cellulitis. MS/ Extremity: Pulses equal, no cyanosis. Neurovascular intact. Full, normal range of motion. Neuro: Awake and alert, GCS 15, oriented to person, place, time, and situation. Cranial nerves II-XII grossly intact. Motor strength 5/5 in all extremities. Sensory grossly intact. 12:20 ECG was reviewed by the Attending Physician. jr8 Vital Signs: 10:16 BP 161 / 85; Pulse 100; Resp 18; Temp 98.0; Pulse Ox 100% on R/A; Weight 58.97 kg; ph Height 5 ft. 0 in. (152.40 cm); 11:13 BP 148 / 67; Pulse 79; Resp 16; Pulse Ox 98% ; jl7 12:00 BP 140 / 74; Pulse 84; Resp 15; Pulse Ox 99% ; jl7 10:16 Body Mass Index 25.39 (58.97 kg, 152.40 cm) ph MDM: 10:10 Patient medically screened. 8 12:37 Data reviewed: vital signs, nurses notes, lab test result(s), EKG, radiologic studies, jr8 CT scan, plain films. Data interpreted: Pulse oximetry: on room air is 99 %. Interpretation: normal. Counseling: I had a detailed discussion with the patient and/or guardian regarding: the historical points, exam findings, and any diagnostic results supporting the discharge/admit diagnosis, lab results, radiology results, the need for further work-up and treatment in the hospital. Physician consultation: Chris Simmons MD was called at 12:37, was contacted at 12:37, regarding admission, to the telemetry unit. consult, patient's condition, and will see patient. 11/05 10:22 Order name: Basic Metabolic Panel; Complete Time: 11:11/05 10:22 Order name: CBC with Diff; Complete Time: 11/05 10:22 Order name: LFT's; Complete Time: 11:11/05 10:22 Order name: Magnesium; Complete Time: 11:11/05 10:22 Order name: NT PRO-BNP; Complete Time: :11/05 10:22 Order name: PT-INR; Complete Time: : 11/05 10:22 Order name: Pth,Intact; Complete Time: 13:52 [facility] 11/05 10:22 Order name: TSH; Complete Time: 11:37 [facility] 11/05 10:22 Order name: T4 Free; Complete Time: 11:37 [facility] 11/05 10:36 Order name: Troponin (emerg Dept Use Only); Complete Time: 11:25 11/05 14:11 Order name: Thyroid Stimulating Hormone [facility] 11/05 14:11 Order name: CBC with Automated Diff [facility] 11/05 14:11 Order name: CBC with Automated Diff [facility] 11/05 14:11 Order name: Comprehensive Metabolic Panel [facility] 11/05 10:22 Order name: XRAY Chest (1 view); Complete Time: 13:17 [facility] 11/05 10:22 Order name: EKG; Complete Time: 10:23 [facility] 11/05 11:56 Order name: CT Chest Abdomen Pelvis W/O Contrast; Complete Time: 12:37 [facility] 11/05 14:11 Order name: CONS Physician Consult [facility] 11/05 14:11 Order name: Comprehensive Metabolic Panel [facility] 11/05 14:11 Order name: Magnesium [facility] 11/05 14:11 Order name: Magnesium [facility] 11/05 14:11 Order name: Phosphorus [facility] 11/05 14:11 Order name: Phosphorus [facility] 11/05 10:22 Order name: Cardiac monitoring; Complete Time: 10:38 [facility] 11/05 10:22 Order name: EKG - Nurse/Tech; Complete Time: 11:02 [facility] 11/05 10:22 Order name: IV Saline Lock; Complete Time: 10:38 [facility] 11/05 10:22 Order name: Labs collected and sent; Complete Time: 10:39 [facility] 11/05 10:22 Order name: O2 Per Protocol; Complete Time: 10:39 [facility] 11/05 10:22 Order name: O2 Sat Monitoring; Complete Time: 10:39 [facility] 11/05 14:11 Order name: Heart Healthy [facility] EC:20 Rate is 88 beats/min. Rhythm is regular, Normal Sinus Rhythm. QRS [place] is Normal. MS jr8 interval is normal at 164 msec. QRS interval is normal at 92 msec. QT interval is normal at 462 msec. No Q waves. T waves are Normal. No ST changes noted. Clinical impression: Normal ECG. Interpreted by me. Reviewed by me. Administered Medications: 11:04 CANCELLED (Inappropriate at this time): Ketamine 1 mg/kg IVP once ph 12:00 Drug: Potassium Chloride 40 mEq Route: PO; jl7 13:21 Follow up: Response: No adverse reaction jl7 12:15 Drug: Magnesium Sulfate 2 grams Route: IVPB; Infused Over: 2 hrs; Site: right forearm; jl7 14:30 Follow up: Response: No adverse reaction; IV Status: Completed infusion ph 12:15 Drug: Potassium Chloride 20 mEq Route: IV; Rate: calculated rate; Site: right forearm; jl7 12:15 Follow up: Response: No adverse reaction; IV Status: Completed infusion jl7 12:15 Drug: NS 0.9% 1000 ml Route: IV; Rate: 1000 ml; Site: right forearm; jl7 13:15 Follow up: Response: No adverse reaction; IV Status: Completed infusion; IV Intake: jl7 1000ml 12:55 Drug: fentaNYL (PF) 25 mcg Route: IVP; Site: right forearm; jl7 13:22 Follow up: Response: No adverse reaction; Pain is decreased jl7 13:19 Drug: NS 0.9% 1000 ml Route: IV; Rate: 125 ml/hr; Site: right forearm; jl7 15:17 Follow up: Response: No adverse reaction; IV Status: Infusion continued upon admission ph Disposition: 15:54 Co-signature as Attending Physician, Bryon Rivera MD. rn Disposition: 11/06/19 12:38 Hospitalization ordered by Chris Simmons for Inpatient Admission. Preliminary diagnosis are Hypokalemia, Hypercalcemia. - Bed requested for Telemetry/MedSurg (Inpatient). - Status is Inpatient Admission. aa5 - Condition is Stable. - Problem is new. - Symptoms are unchanged. Signatures: Dispatcher [employer] EDPR Lizbeth Norris RN RN dw Nieto, Roman, MD MD rn Calderon, Audri, RN RN aa5 Santosh Pulido PA PA jr8 Sharda Vázquez RN RN ph Anderson Roldan RN RN jl7 Corrections: (The following items were deleted from the chart) 11:04 11:03 Ketamine 1 mg/kg IVP once ordered. ph ph 14:50 12:38 Hospitalization Ordered by Chris Simmons MD for Inpatient Admission. Preliminary dw diagnosis is Hypokalemia; Hypercalcemia. Bed requested for Telemetry/MedSurg (Inpatient). Status is Inpatient Admission. Condition is Stable. Problem is new. Symptoms are unchanged. jr8 15:34 14:50 11/06/2019 12:38 Hospitalization Ordered by Chris Simmons MD for Inpatient aa5 Admission. Preliminary diagnosis is Hypokalemia; Hypercalcemia. Bed requested for Telemetry/MedSurg (Inpatient). Status is Inpatient Admission. Condition is Stable. Problem is new. Symptoms are unchanged. dw
--- NOTE | 2019-11-12 13:14 | ER ---
Nurse's Notes [facility] Name: Martha Pradhan Age: 59 yrs Sex: Female : 1960 Arrival Date: 11/06/2019 Time: 10:04 Bed 5 Private MD: Diagnosis: Hypokalemia;Hypercalcemia Presentation: 11/05 10:16 Chief complaint: Patient states: Contacted by Dr Hancock's office and sent to ED for ph abnormal lab results, states, " I think they said it was my vitamin D level was really low." Pt also c/o sobia knee swelling and stiffness, dizziness, nausea, general weakness, and frequent urination. Denies chest pain, fever or SOB. Coronavirus screen: Patient denies a cough. Patient denies shortness of breath or difficulty breathing. Patient denies measured and/or subjective temperature greater than 100.4F prior to today's visit. Patient denies travel on a cruise ship or to a country the [facility] currently lists as an affected area. Patient denies contact with known and/or suspected case of COVID-19. Ebola Screen: No symptoms or risks identified at this time. Initial Sepsis Screen: Does the patient meet any 2 criteria? No. Patient's initial sepsis screen is negative. Does the patient have a suspected source of infection? No. Patient's initial sepsis screen is negative. Risk Assessment: Do you want to hurt yourself or someone else? Patient reports no desire to harm self or others. Onset of symptoms was November 06, 2019. 10:16 Method Of Arrival: Wheelchair ph 10:16 Acuity: ROSALBA 3 ph Historical: - Allergies: 10:20 Demerol; ph 10:20 haloperidol lactate; ph 10:20 hydroxyzine HCl; ph 10:20 Hydroxyzine Pamoate; ph 10:20 Ibuprofen; ph 10:20 Lyrica; ph 10:20 meloxicam; ph 10:20 nalbuphine HCl; ph 10:20 Naproxen Sodium; ph 10:20 NSAIDS (Non-Steroidal Anti-Inflammatory Drug); ph 10:20 Nubain; ph 10:20 Vistaril; ph - Home Meds: 10:20 Bentyl 20 mg Oral tab 1 tab 3 times per day [Active]; hydrochlorothiazide 12.5 mg Oral ph tab 1 tab once daily [Active]; Klonopin 1 mg Oral tab 1 tab 2 times per day [Active]; lansoprazole 30 mg Oral cpDR 1 cap once daily [Active]; metoprolol tartrate 50 mg Oral tab 1 tab 3 times per day [Active]; Premarin 1.25 mg Oral tab 1 tab once daily [Active]; - PMHx: 10:20 ADD/ADHD; Anxiety; Arthritis; Back pain; Chronic pain; Irritable bowel syndrome; ph restless leg syndrome; Osteoporosis; Tachycardia; - Immunization history:: Adult Immunizations unknown. - Social history:: Smoking status: Patient/guardian denies using tobacco, the patient reports quitting approximately 8 years ago. Screenin:20 Abuse screen: Denies threats or abuse. Denies injuries from another. Nutritional ph screening: No deficits noted. Tuberculosis screening: No symptoms or risk factors identified. Fall Risk None identified. Assessment: 10:21 General: Appears in no apparent distress. comfortable, Behavior is calm, cooperative, ph appropriate for age, Denies fever, feeling ill. Pain: Complains of pain in bilateral knees. Neuro: Level of Consciousness is awake, alert, obeys commands, Oriented to person, place, time, situation, Reports dizziness, weakness in "all over". Cardiovascular: Reports fatigue, lightheadedness, nausea, Denies chest pain, shortness of breath, Capillary refill < 3 seconds in bilateral fingers Patient's skin is warm and dry. Respiratory: Airway is patent Respiratory effort is even, unlabored. GI: Reports nausea, Patient currently denies abdominal pain, diarrhea, vomiting. : Reports urinary frequency, Denies burning with urination. Derm: Skin is intact, Skin is pink, warm \\T\\ dry. Musculoskeletal: Range of motion: intact in all extremities, Swelling present in bilateral knees. 12:07 Reassessment: Pt to CT via wheelchair. jl7 12:15 Reassessment: Pt returned from CT. jl7 13:30 Reassessment: Patient appears in no apparent distress at this time. Patient and/or ph family updated on plan of care and expected duration. Pain level reassessed. Patient is alert, oriented x 3, equal unlabored respirations, skin warm/dry/pink. 14:30 Reassessment: Patient appears in no apparent distress at this time. Patient and/or ph family updated on plan of care and expected duration. Pain level reassessed. Patient is alert, oriented x 3, equal unlabored respirations, skin warm/dry/pink. 15:16 Reassessment: Patient appears in no apparent distress at this time. Patient and/or ph family updated on plan of care and expected duration. Pain level reassessed. Patient is alert, oriented x 3, equal unlabored respirations, skin warm/dry/pink. Pt resting quietly w/ eyes closed, report called to Kyle MORRIS. Vital Signs: 10:16 BP 161 / 85; Pulse 100; Resp 18; Temp 98.0; Pulse Ox 100% on R/A; Weight 58.97 kg; ph Height 5 ft. 0 in. (152.40 cm); 11:13 BP 148 / 67; Pulse 79; Resp 16; Pulse Ox 98% ; jl7 12:00 BP 140 / 74; Pulse 84; Resp 15; Pulse Ox 99% ; jl7 10:16 Body Mass Index 25.39 (58.97 kg, 152.40 cm) ph ED Course: 10:04 Patient arrived in ED. as 10:10 Santosh Pulido PA is PHCP. jr8 10:10 Bryon Rivera MD is Attending Physician. jr8 10:16 Sharda Vázquez, ALEXANDRA is Primary Nurse. ph 10:19 Triage completed. ph 10:21 Patient has correct armband on for positive identification. Placed in gown. Bed in low ph position. Call light in reach. Side rails up X 1. Pulse ox on. NIBP on. Door closed. Noise minimized. Warm blanket given. 10:21 Arm band placed on Patient placed in an exam room. ph 10:23 No provider procedures requiring assistance completed. ph 10:39 Initial lab(s) drawn, by ED staff, sent to lab. Inserted saline lock: 22 gauge in right ph antecubital area, using aseptic technique. Blood collected. 10:47 EKG done, by mechanical technologist. reviewed by Santosh WHEELER. at1 10:49 XRAY Chest (1 view) In Process Unspecified. EDMS 12:10 CT Chest Abdomen Pelvis W/O Contrast In Process Unspecified. EDMS 12:38 Chris Simmons MD is Hospitalizing Provider. jr8 15:00 Patient admitted, IV remains in place. ph Administered Medications: 11:04 CANCELLED (Inappropriate at this time): Ketamine 1 mg/kg IVP once ph 12:00 Drug: Potassium Chloride 40 mEq Route: PO; jl7 13:21 Follow up: Response: No adverse reaction jl7 12:15 Drug: Magnesium Sulfate 2 grams Route: IVPB; Infused Over: 2 hrs; Site: right forearm; jl7 14:30 Follow up: Response: No adverse reaction; IV Status: Completed infusion ph 12:15 Drug: Potassium Chloride 20 mEq Route: IV; Rate: calculated rate; Site: right forearm; jl7 12:15 Follow up: Response: No adverse reaction; IV Status: Completed infusion jl7 12:15 Drug: NS 0.9% 1000 ml Route: IV; Rate: 1000 ml; Site: right forearm; jl7 13:15 Follow up: Response: No adverse reaction; IV Status: Completed infusion; IV Intake: jl7 1000ml 12:55 Drug: fentaNYL (PF) 25 mcg Route: IVP; Site: right forearm; jl7 13:22 Follow up: Response: No adverse reaction; Pain is decreased jl7 13:19 Drug: NS 0.9% 1000 ml Route: IV; Rate: 125 ml/hr; Site: right forearm; jl7 15:17 Follow up: Response: No adverse reaction; IV Status: Infusion continued upon admission ph Intake: 13:15 IV: 1000ml; Total: 1000ml. jl7 Outcome: 12:38 Decision to Hospitalize by Provider. jr8 15:18 Admitted to Med/surg accompanied by tech, via stretcher, room 207, with chart. ph 15:18 Condition: stable 15:18 Instructed on the need for admit. 15:34 Patient left the ED. aa5 Signatures: Dispatcher [employer] EDMarta Crane Audri, RN RN aa5 Santosh Pulido PA PA jr8 Amie Brunner, fine patcher EKG Anthony1 Sharda Vázquez RN RN Anderson Roldan RN RN jl7
[2019-11-12 13:59] VITALS: TEMP 98.3
[2019-11-12 17:42] VITALS: BP 130/60
--- NOTE | 2019-11-13 01:48 | PN ---
Date of Progress Note: 11/12/2019 Chief Complaint: Acute kidney injury, hypercalcemia, severe hypertension. History Of Present Illness: Patient was on Cardizem drip. Creatinine level improved with IV fluids. Review of Systems: Denies new complaints. Currently, she is off Cardizem drip, transferred out from ICU. Physical Examination: Lungs: Clear to auscultation bilaterally. Heart: S1, S2. Abdomen: Soft, benign. Extremities: Minimal edema. Impression And Plan: 1.Acute kidney injury, due to prerenal azotemia, nonoliguric acute tubular necrosis. Patient did no t require dialysis. Patient responded to IV fluids. Continue to avoid nonsteroidal anti-inflammator y medication. 2.Hypokalemia, treated with replacement. 3.Hypercalcemia due to volume depletion and patient responded to IV fluids. The calcium level has i mproved. 4.Osteoarthritis. Avoid nephrotoxic medication. EB/MODL Voice ID: [id number] Report ID: [id number]
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
--- NOTE | 2019-11-14 16:32 | EKG ---
Test Date: 2019-11-10 Test Time: 22:59:40 Senior Technical Support Analyst: JAMI MEASUREMENT RESULTS: Intervals: Rate: 183 AK: QRSD: 94 QT: 260 QTc: 453 [place]: P: AK: QRS: 23 T: 26 INTERPRETIVE STATEMENTS: Supraventricular tachycardia Nonspecific ST abnormality Abnormal ECG Compared to ECG 11/06/2019 10:43:23 ST (T wave) deviation now present Sinus rhythm no longer present Electronically Signed On 11-14-19 16:27:50 CDT by Nehemiah Mckinney
--- NOTE | 2019-11-19 05:53 | CON ---
Date of Consultation: 11/12/2019 Type Of Service: Followup psychiatric consult. Patient was initially seen by the psychiatric team on November 06, 2019, on account of what was major depr essive symptoms and anxiety. History Of Present Illness: On interview today, patient reported her mood is much better. She is no longer having frequent crying spells and anxiety has significantly improved. She states she is slee ping well at nights and wake up feeling well rested. Following the initiation of Cymbalta 30 mg p.o. daily and clonopin 1 mg p.o. q.h.s., patient continues to denying suicidal or homicidal ideation. D enies any hopelessness or helplessness. States her appetite is good. No psychotic symptoms. No ___ . Continues to deny abuse of illicit substance and alcohol. Patient is still looking forward to going back home. States she is working on a plan of getting an apartment. depressive symptoms. She denies , but per mom, patient will have some in the house. No h istory of father. Objective: Vital Signs: Blood pressure 140/64, temperature is 97.7, pulse rate is 78, respiratory r ate is 18, O2 saturation on room air is 97%. Mental Status: Patient is a slim-built female, was sitting in a chair. Continu es to report no acute distress. She is alert and oriented x3. No stereotypic movements noted. ____ . Speech is spontaneous, normal in rate, rhythm, and volume. No preservation noted. Memory a nd concentration are fair. Mood is described as better. Affect is congruent. Thought process is linear mostly, at times circumstantial. Thought content, no delusional thinking. No suicidal or homicidal ideations. Admits to some auditory or visual hallucinations. Patient is internally preoccupied. Insight, judgment, and impulse control are fair. Fund of knowledge fair. L anguage skills . Suicidal/homicidal ideation risk assessment is low. low. Diagnoses: 1.Major depressive disorder, recurrent, moderate. 2.Generalized anxiety disorder. Recommendations: Patient is not at this time, hence would not recommend the patient . Patient is to be discharged if medically cleared. chemical worker should be engaged to assist with discharge plan. Also recommend for which the patient has reached recommen d to continue Cymbalta 30 mg p.o. daily and recommend to continue clonopin 1 mg p.o. q.h.s. patient to follow up with psychiatrist 2 weeks post discharge for evaluation and medication management. Clark mmend patient to follow up with psychotherapy . Discussed recommendations with treatment t eam. I spent 40 minutes in evaluation of the patient, reviewing the patient's charts, and discussing the t reatment plan with treatment team. SHENG Voice ID: [id number] Report ID: [id number]
== END 2019-11-12 18:39 | disposition home or self-care (01) | DRG 917 ==
LOC: ER 09:59 → ERHOLD 14:08 → 2ND 15:16 → 3RD-ICU 11-11 00:29 → 2ND 11-12 00:39
PROVIDERS: ADMIT Family Medicine; ATTEND Family Medicine
DX: T47.1X1A Poisoning by other antacids and anti-gastric-secretion drugs, accidental (unintentional), initial encounter (principal); N17.0 Acute kidney failure with tubular necrosis; I47.1 Supraventricular tachycardia; F33.1 Major depressive disorder, recurrent, moderate; C90.00 Multiple myeloma not having achieved remission; E83.52 Hypercalcemia; E87.6 Hypokalemia; G89.4 Chronic pain syndrome; M19.90 Unspecified osteoarthritis, unspecified site; D64.9 Anemia, unspecified; I10 Essential (primary) hypertension; E83.42 Hypomagnesemia; M25.461 Effusion, right knee; F90.9 Attention-deficit hyperactivity disorder, unspecified type; E87.8 Other disorders of electrolyte and fluid balance, not elsewhere classified; F41.1 Generalized anxiety disorder; E86.9 Volume depletion, unspecified; T50.2X1A Poisoning by carbonic-anhydrase inhibitors, benzothiadiazides and other diuretics, accidental (unintentional), initial encounter; Z88.5 Allergy status to narcotic agent; Z79.52 Long term (current) use of systemic steroids; Z88.8 Allergy status to other drugs, medicaments and biological substances; Z79.899 Other long term (current) drug therapy
CPT/HCPCS: 36415; 71045; 71250; 74176; 80048; 80053; 80076; 81003; 81015; 82306; 82570; 82652; 83735; 83880; 83970; 84100; 84132; 84156; 84165; 84439; 84443; 84484; 84550; 85025; 85610; 85652; 86038; 86430; 87077; 87086; 87088; 87186; 87324; 87449; 93005; 93970; 94760; 96361; 96365; 96366; 96375; 97116; 97161; 97530; 99285; J1630; J1650; J2270; J3010; J3475; J7030; J7512

== ENCOUNTER 2020-06-20 07:15 | Day surgery (SDC) | payer OTHER ==
[2020-06-16 14:19] LABS: Potassium 4.5 mmol/L (3.5-5.1)
[2020-06-16 14:24] LABS: Absolute Lymphocytes (CBC) 1.8 K/uL (0.7-4.9); Basophils % 1.3 % (0-1.3); Hematocrit 34.1 % (36.0-45.0); Lymphocytes % 19.9 % (15.3-44.8); RBC Red Blood Cell Count 3.59 M/uL (3.86-4.86)
[2020-06-16 14:27] LABS: Protime INR 0.98
--- NOTE | 2020-06-16 14:38 | RAD REPORT ---
EXAM DESCRIPTION: Sarwat Bartlett And Michael (2 Views)06/16/2020 2:28 pm CLINICAL HISTORY: Preop for cardiac catheterization COMPARISON: October 2019 FINDINGS: Lungs are mildly hyperaerated. The lungs appear clear of acute infiltrate. The heart is normal size. Old fractures noted IMPRESSION: No acute abnormalities displayed
[~2020-06-20 07:15] MED LIST changes: +HEPA 1000U/500MLS 2,000 UNIT/1,000 ML BAG IV ONE; -HEPARIN 5000 UNIT/ML 1 ML VIAL SQ SCH; +LIDOCAINE 1% 20 ML MDV ONE; -NA CHLORIDE 0.9% 1,000 ML IV SCH; -NA CHLORIDE 0.9% 2,000 ML ONE; -ONDANSETRON 4 MG/2 ML VIAL IV PRN
--- OUTSIDE RECORDS SUMMARY | 2020-06-20 07:18 | XMS REPORT | Continuity of Care Document ---
:1960 Author Organization [facility] t Address [address] [place] [address] Care Team Providers Name Role Phone Pc, Vascular Room 1 - Attending Clinician Unavailable Loco TEE Attending Clinician Doctor Unassigned, Name Attending Clinician Unavailable Problems This patient has no known problems. Allergies, Adverse Reactions, Alerts Allergy Allergy Status Severity Reaction(s) Onset Inactive Treating Comm ents Source Name Type Date Date Clinician Lodine Adverse Active throat [facility] Vistaril Adverse Active seizure [facility] Nubain Adverse Active throat [facility]obic [facility]verse Active seizure [facility] Reaction [facility] Lyrica Adverse Active throat [facility] Ibuprofe Adverse Active throat [facility] Reaction [facility] Haldol Adverse Active throat [facility] Medications Ordered Filled Start Stop Current Ordering Indication Dosage Frequency Signature Comments Components Source Medication Medication Date Date Medication? Clinician (SIG) Name Name Metoprolol Metoprolol Yes Nirmal [address] [facility] Tartrate Tartrate [place] with [facility] Dicyclomine Dicyclomine Yes Nirmal TAKE [address] [facility] HCl HCl [place] TABLET BY [facility] Premarin Premarin Yes Nirmal [address] [facility] Hydrochloro Hydrochloro Yes Nirmal [address] [facility] thiazide thiazide [place] in the [facility] Adderall Adderall Yes Nirmal [address] [facility] Lansoprazol Lansoprazol Yes Nirmal [address] [facility] Clonazepam Clonazepam Yes Nirmal [address] [facility] Duloxetine Duloxetine Yes Nirmal TK ONE C [facility] HCl HCl [place] PO BID [facility] Procedures This patient has no known procedures. Encounters Start End Encounter Admission Attending Care Care Encounter Source Date/Time Date/Time Type Type Clinicians Facility Department ID 2020-06-18 2020-06-18 Outpatient [facility] [id number] [facility] 2020-06-09 2020-06-09 Appointmen Thom [facility] [id number] 08:02:58 09:02:58 t [facility] [id number] [place] [id number] Professio [phone] [address] 2020-06-09 2020-06-09 Nurse Educator [facility] [id number] 08:02:31 09:02:31 Visit [facility] [id number] [place] [address] [id number] Professio [phone] [address] 2020-05-15 2020-05-15 Outpatient [facility] [id number] [facility] 2020-05-13 2020-05-13 Office [facility] [id number] 09:04:52 10:43:13 Visit Elizabeth Gibbs [id number] [place] [id number] [facility] [phone] [address] 2020-05-13 2020-05-13 Orders Doctor RAY [id number] 00:00:00 00:00:00 Only Unassigned, SUSHILA [id number] [place] [facility] [id number] 2020-04-23 2020-04-23 Orders Doctor RAY [id number] 00:00:00 00:00:00 Only Unassigned, SUSHILA [id number] [place] [facility] [id number] 2020-04-17 2020-04-17 Outpatient [facility] [id number] [facility] 2020-04-11 2020-04-11 Outpatient [facility] [id number] [facility] 2020-04-08 2020-04-08 Outpatient [facility] [id number] [facility] 2020-03-20 2020-03-20 Outpatient [facility] [id number] [facility] 2019-12-19 2019-12-19 [facility] [id number] [facility] 10:45:00 10:45:00 [place] [email or web address] [facility] - Drive [facility] l Medicine Outpati ent Clinics 2019-12-19 2019-12-19 [facility] [id number] 10:00:00 10:00:00 [place] [facility] - Drive [facility] l Medicine Outpati ent Clinics 2019-12-03 2019-12-03 [facility] [id number] 10:17:00 10:17:00 [place] - [address] [facility] Medicine l Medicine Outpati ent Clinics 2019-12-03 2019-12-03 [facility] [id number] 09:59:00 09:59:00 [place] - [facility] Medicine l Medicine Outpati ent Clinics 2019-11-29 2019-11-29 [facility] [id number] 09:45:00 09:45:00 t [place] - Drive [facility] l Medicine Outpati ent Clinics 2019-11-13 2019-11-13 [facility] [id number] 11:17:00 11:17:[address] [facility] [address] [employer] [place] [facility] l Medicine Outpati ent Clinics 2019-11-06 2019-11-06 [facility] [id number] 15:08:00 15:08:00 t [place] - [place] [facility] l Medicine Outpati ent Clinics 2019-11-01 2019-11-01 [facility] [id number] 16:03:00 16:03:00 [place] [employer] [facility] Medicine l Medicine Outpati ent Clinics 2019-10-31 2019-10-31 [facility] [id number] 09:15:00 09:15:00 [place] - Drive [facility] l Medicine Outpati ent Clinics 2019-10-01 2019-10-01 [facility] [id number] 10:00:00 10:00:00 [place] - [facility] Medicine Medicine Outpati ent Clinics 2019-08-27 2019-08-27 [facility] [id number] 14:00:00 14:00:00 [place] - Drive [facility] Medicine Outpati ent Clinics 2019-07-30 2019-07-30 [facility] [id number] 11:00:00 11:00:00 t [place] - [facility] Medicine l Medicine Outpati ent Clinics 2019-02-02 2019-02-02 Teofilo BELL [id number] 00:00:00 00:00:00 Only Unassigned, SUSHILA [id number] [place] [facility] [id number] Results This patient has no known results.
--- OUTSIDE RECORDS SUMMARY | 2020-06-20 07:19 | XMS REPORT | Summary of Care ---
:1960 Author Organization [facility] Address [address] [place] [address] Care Team Providers Name Role Phone Christopher Pace Primary Care Provider Reason for Visit Reason Comments ULTRASOUND (Routine) Status Reason Specialty Diagnoses / Referred By Contact Refe rred To Procedures Contact Closed Vascular Surgery Diagnoses Arterial disease Elizabeth Adan, Procedures RENAL ARTERY DUPLEX BY VASCULAR LAB [address] [place] [phone] Phone: Encounter Details Date Type Department Care Team Description 06/09/2020 File Clerk Visit [facility] [address] [place] [address] [place] [id number] Arterial disease; Cardiology- Pc, Adc Vascular Room 1 - Uncontrolled hypertension [address], [address] [place] [address] Allergies Active Allergy Reactions Severity Noted Date Comments Pregabalin Hallucinations 06/09/2015 Meloxicam Other - See comments 06/04/2015 Seizure s Nsaids (Non-Steroidal Anaphylaxis 06/04/2015 Anti-Inflammatory Drug) Nalbuphine Hcl Anaphylaxis 06/04/2015 Vistaril Im (Hcl Salt) Extra pyramidal effects 015 documented as of this encounter (statuses as of 06/09/2020) Medications Medication Sig Dispensed Refills Start Date End Date Status conjugated estrogens Take 1.25 mg 0 Active (PREMARIN) 1.25 mg tablet by mouth daily. FENTanyl (DURAGESIC) 50 Apply 1 Patch 0 Active mcg/hr patch to skin every 72 (seventy-two) hours. dextroamphetamine-amphetami Take 20 mg by 0 Active ne (ADDERALL) 20 mg tablet mouth daily. clonazePAM (KLONOPIN) 1 mg Take 1 mg by 0 Active tablet mouth as needed. metoprolol tartrate Take 25 mg by 0 Active (LOPRESSOR) 25 mg tablet mouth daily. dicyclomine 20 mg tablet Take 20 mg by 0 Active mouth daily. lidocaine 5 % (700 Apply 1 Patch 0 Active mg/patch) patch to area(s) daily. ALPRAZolam (XANAX) 1 mg Take 1 tablet 0 Active tablet by mouth 3 (three) times daily. pentazocine-naloxone 50-0.5 Take 1 tablet 40 tablet 1 09/02/19 18 Active mg tablet by mouth every 6 (six) hours as needed for Pain. hydroCHLOROthiazide 12.5 mg Take 12.5 mg 0 Active capsule by mouth daily. rOPINIRole 0.5 mg tablet Take 0.5 mg 0 Active by mouth daily. DULoxetine 30 mg capsule Take 30 mg by 0 Active mouth daily. terbinafine HCl 250 mg Take 250 mg 0 Active tablet by mouth daily. lansoprazole 30 mg capsule Take 30 mg by 0 Active mouth daily. documented as of this encounter (statuses as of 06/09/2020) Active Problems Problem Noted Date Hiatal hernia 05/15/2020 Post-op pain 04/12/2016 Chronic neck pain 06/23/2015 Anxiety disorder 06/23/2015 Supraventricular dysrhythmia PTSD (post-traumatic stress disorder) Chronic low back pain documented as of this encounter (statuses as of 06/09/2020) Social History Tobacco Use Types Packs/Day Years Used Date Former Smoker Smokeless Tobacco: Never Used Alcohol Use Drinks/Week oz/Week Comments No 0 Standard drinks or equivalent 0.0 Sex Assigned at Date Recorded Not on file COVID-19 Exposure Response Date Recorded In the last month, have you been in contact with No / Unsure 06/09/2020 8:02 AM DYNAMICIST someone who was confirmed or suspected to have Coronavirus / COVID-19? documented as of this encounter Last Filed Vital Signs Not on filedocumented in this encounter Plan of Treatment Date Type Specialty Care Team Description 06/17/2020 Office Visit Vascular Surgery Titi Adan MD [address] [place] [address] [phone] Health Maintenance Due Date Last Done Comments HEPATITIS C (HCV) SCREEN 1960 DTaP,Tdap,and Td Vaccines (1 - 1977 Tdap) PAP SMEAR 09/13/1979 Breast Cancer Screening 1998 (MAMMOGRAM) COLON CANCER SCREENING ANNUAL 2008 FIT/FOBT COLON CANCER SCREENING FIT DNA 2008 EVERY 3 YEARS COLON CANCER SCREENING 2008 SIGMOIDOSCOPY EVERY 5 YEARS COLONOSCOPY 2008 Colorectal Cancer Screening 2008 Zoster Recombinant Vaccine 2008 (SHINGRIX) (1 of 2) LUNG CANCER SCREEN: Recommended 2013 for age 55-80 with 30 + pack year history INFLUENZA VACCINE (#1) 2020 Depression Screening 05/13/2021 05/13/2020 PNEUMOCOCCAL 0-64 YEARS COMBINED Aged Out No longer eligible based on SERIES patient's age to complete this topic documented as of this encounter Results Not on filedocumented in this encounter Visit Diagnoses Diagnosis Arterial disease Unspecified disorders of arteries and ar terioles Uncontrolled hypertension Unspecified essential hypertension documented in this encounter Insurance Payer Benefit Plan / Subscriber ID Effective Dates Phone Addre ss Type Group [facility] [id number] 2013-Present Medicaid COMM PLAN - PLUS MANAGED MEDICAID documented as of this encounter
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
--- OUTSIDE RECORDS SUMMARY | 2020-06-20 07:19 | XMS REPORT | Summary of Care ---
:1960 Author Organization [facility] Address [address] [place] [address] Care Team Providers Name Role Phone Christopher Pace Primary Care Provider Reason for Visit (Routine) Status Reason Specialty Diagnoses / Referred By Contact Refe rred To Procedures Contact Closed Cardiology Diagnoses Arterial disease Elizabeth Adan MD Procedures MESENTERIC ARTERY DUPLEX BY VASCULAR LAB [address] [place] [address] Phone: Encounter Details Date Type Department Care Team Description 06/09/2020 Appointment [facility] Cardiology- Joie Hutton MD [address] [place] [address] [place] [id number] Arrived [facility] Vascular Room [address] [place] [address], [address] [place] [address] Allergies Active Allergy Reactions Severity Noted Date [...] with No / Unsure 06/09/2020 8:02 AM [employer]LE UPHOL[employer] someone who was confirmed or suspected to have Coronavirus / COVID-19? documented as of this encounter Last Filed Vital Signs Not on filedocumented in this encounter Plan of Treatment Date Type Specialty Care Team Description 06/17/2020 Office Visit Vascular Surgery Titi Adan MD [address] [place] [address] Di [place] [phone] Health Maintenance Due Date Last [...] Results Not on filedocumented in this encounter Insurance Payer Benefit Plan / Subscriber ID Effective Dates Phone Addre ss Type Group [facility] [id number] 2013-Present Medicaid COMM PLAN - PLUS MANAGED MEDICAID documented as of this encounter
[2020-06-20] MEDS ORDERED: NA CHLORIDE 0.9% 500 ML ONE (07:29)
[2020-06-20] MEDS ORDERED: MIDAZOLAM HCL 2 MG/2 ML INJ ONE ×2 (08:06→08:20)
[2020-06-20] MEDS ORDERED: FENTANYL CITR 100 MCG/2 ML ONE (08:06)
[2020-06-20] MEDS ORDERED: ATROPINE SULF 1 MG/10 ML SYR IV ONE (08:06)
[2020-06-20] MEDS ORDERED: NA CHLORIDE 0.9% 0 ML ONE (08:07)
--- NOTE | 2020-06-20 09:29 | OP ---
Surgeon: Nehemiah Mckinney MD Smoke Jumper: Mattie Kunz. Indication: She was admitted to the laborer/key man for PAD and unstable angina, abnormal arterial Doppler. Procedure In Detail: She was prepped and draped in the routine sterile fashion. Given Versed and fe ntanyl for sedation. Using the Seldinger technique and 10 cc of xylocaine, we put a 6-Filipino sheath in the right common femoral artery area. A JL4 and JR4 Rocio catheters were used to cannulate the left main and right main respectively. She was found to have minor plaquing throughout the LAD, circ umflex, and RCA without any focal stenosis. Following that, a pigtail was advanced above the renals and distal aorta. Abdominal angiogram revealed normal renals, normal distal aorta, iliacs. SFAs and below the knees had some minor plaquing without any focal stenosis. There were 6-Filipino sheath and catheters were used. No complications. Angio-Seal was used to close the case. Blood Loss: 5 cc. Final Diagnosis: Mild coronary artery disease and peripheral artery disease. Plan: Is for medical therapy. Anesthesia: Total conscious sedation 45 minutes. Plan: The patient will be going home in 2 hours after bedrest. She will see me in the office in 2 w eeks. No change in medical therapy for now, but we will consider statin additions for sure. NICK/MC Voice ID: [id number] Report ID: [id number]
[2020-06-20 09:33] VITALS: TEMP 97.2
[2020-06-20 10:56] VITALS: BP 121/52; O2SAT 98
== END 2020-06-20 11:00 | disposition home or self-care (01) ==
LOC: CCL 07:15
DX: I25.110 Atherosclerotic heart disease of native coronary artery with unstable angina pectoris (principal); I70.213 Atherosclerosis of native arteries of extremities with intermittent claudication, bilateral legs; I10 Essential (primary) hypertension; K21.9 Gastro-esophageal reflux disease without esophagitis; F41.9 Anxiety disorder, unspecified; Z20.822 Contact with and (suspected) exposure to COVID-19
CPT/HCPCS: 85025; 80048; 36415; 85610; 85730; 71046; 75630; 93454; U0002; C1893; C1760; J2250 ×2; J3010; J7040; J1644; J0583

== ENCOUNTER 2020-11-13 12:33 | Emergency (ER) | payer OTHER ==
--- OUTSIDE RECORDS SUMMARY | 2020-11-13 12:36 | XMS REPORT | Continuity of Care Document ---
:[address] [facility] t Address [address] [place] [address] Care Team Providers Name Role Phone Maria Elena TEE Attending Clinician Only, Test Attending Clinician Unavailable Doctor Unassigned, Name Attending Clinician Unavailable Problems This patient has no known problems. Allergies, Adverse Reactions, Alerts Allergy Allergy Status Severity Reaction(s) Onset Inactive Treating Comm ents Source Name Type Date Date Clinician Lodine Adverse [facility] Vistaril Adverse Active seizure [facility] Nubain Adverse Active throat [facility] Mobic Adverse Active seizure [facility] Lyrica Adverse Active throat [facility] Ibuprofe Adverse Active [facility] Haldol Adverse Active throat [facility] Medications Ordered Filled Start Stop [...] Date/Time Type Type Clinicians Facility Department ID 2020-11-03 2020-11-03 Prep For RAY Arredondo [id number] 00:00:00 00:00:00 Surgery Елена [place] [id number] [facility] [id number] 2020-10-31 2020-10-31 Telephone MESHA Arredondo [id number] 00:00:00 00:00:00 [facility] [id number] [facility] 4.2.7.2.686 CENTER AT [id number] KATHIAManish Sena [facility] 2020-10-24 2020-10-24 Outpatient [facility] [id number] [facility] 2020-10-15 2020-10-15 Outpatient [facility] [id number] [facility] 2020-07-23 2020-07-23 Laboratory Only, [facility] [id number] 11:51:15 12:06:15 Only Test [place] [id number] [place] 4.2.7.2.686 [place] [id number] 353 2020-07-23 2020-07-23 Orders Doctor RAY 1.2.840.114 [id number] 00:00:00 00:00:00 Only Unassigned, SUSHILA 350.1.13.10 [place] [facility] 4.2.7.2.686 [id number] 2020-07-18 2020-07-18 Outpatient [facility] [id number] [facility] 2020-07-15 2020-07-15 Office Maria Elena [facility] [id number] 13:45:51 14:15:51 Visit Елена SHAFFER 350.1.13.10 [facility] 4.2.7.2.[address] [facility] [id number] MARYSOL Jaida [facility] 2020-06-18 2020-06-18 Outpatient [facility] [id number] [facility] 2020-05-15 2020-05-15 Outpatient [facility] [id number] [facility] 2020-04-17 2020-04-17 Outpatient [facility] [id number] [facility] 2020-04-11 2020-04-11 Outpatient [facility] [id number] [facility] 2020-04-08 2020-04-08 Outpatient [facility] [id number] [facility] 2020-03-20 2020-03-20 Outpatient [facility] [id number] [facility] 2019-12-19 2019-12-19 [facility] [id number] [facility] [address] 10:45:00 10:45:00 t Mclean Mclean cinvolve Luke s - Drive [facility] Medicine l Medicine Outpati ent Clinics 2019-12-19 2019-12-19 [facility] [id number] 10:00:00 10:00:00 t Mclean Mclean cinvolve [employer] s - Drive [facility] Medicine l Medicine Outpati ent Clinics 2019-12-03 2019-12-03 [facility] [id number] 10:17:00 10:17:00 t Mclean [employer] s - Drive [facility] Medicine l Medicine Outpati ent Clinics 2019-12-03 2019-12-03 [facility] [id number] 09:59:00 09:59:00 t Mclean TEVIZZ s - Drive [facility] l Medicine Outpati ent Clinics 2019-11-29 2019-11-29 [facility] [id number] 09:45:00 09:45:00 t Mclean TEVIZZ s - Drive [facility] Medicine l Medicine Outpati ent Clinics 2019-11-13 2019-11-13 [facility] [id number] 11:17:00 11:17:00 t [facility] s Road [facility] l Medicine Outpati ent Clinics 2019-11-06 2019-11-06 [facility] [id number] 15:08:00 15:08:00 t Mclean TEVIZZ s - Drive [facility] Medicine l Medicine Outpati ent Clinics 2019-11-01 2019-11-01 [facility] [id number] 16:03:00 16:03:00 t Mclean TEVIZZ s - Drive [facility] Medicine l Medicine Outpati ent Clinics 2019-10-31 2019-10-31 [facility] [id number] 09:15:00 09:15:00 t Mclean TEVIZZ s - Drive [facility] l Medicine Outpati ent Clinics 2019-10-01 2019-10-01 [facility] [id number] [address] 10:00:00 10:00:00 t Mclean TEVIZZ s - Drive [facility] l Medicine Outpati ent Clinics 2019-08-27 2019-08-27 [facility] [id number] 14:00:00 14:00:00 [place] ent [facility] 2019-07-30 2019-07-30 Outpatient Carmen Peoples [id number] 11:00:00 11:00:00 [place] [facility] ent Clinics Results This patient has no known results.
[2020-11-13] MEDS ORDERED: LIDOCAINE 1% MPF 5 ML VIAL ONE (14:01)
[2020-11-13] MEDS ORDERED: TRIAMCINOLONE ACETON 40 MG/ML VIAL ONE (14:02)
--- NOTE | 2020-11-13 14:11 | ER ---
Nurse's Notes [facility] Name: Martha Pradhan Age: 60 yrs Sex: Female : 1960 Arrival Date: 11/13/2020 Time: 12:35 Bed 16 Private MD: Nirmal Hancock Diagnosis: Pain in left knee;Osteoarthritis of knee Presentation: 11/13 12:39 Chief complaint: Patient states: "I called my Dr yesterday. My knees are hurting real ss bad and swollen. I had kidney problems and was in the hospital a year ago. Dr. Hancock told me to come to the ER.". Coronavirus screen: Client denies travel out of the [place] in the last 14 days. Ebola Screen: Patient denies exposure to infectious person. Patient denies travel to an Ebola-affected area in the 21 days before illness onset. Initial Sepsis Screen: Does the patient meet any 2 criteria? No. Patient's initial sepsis screen is negative. Does the patient have a suspected source of infection? No. Patient's initial sepsis screen is negative. Risk Assessment: Do you want to hurt yourself or someone else? Patient reports no desire to harm self or others. Onset of symptoms was November 11, 2020. 12:39 Method Of Arrival: Ambulatory ss 12:39 Acuity: ROSALBA 3 ss Historical: - Allergies: 12:42 Demerol; ss 12:42 haloperidol lactate; ss 12:42 hydroxyzine HCl; ss 12:42 Hydroxyzine Pamoate; ss 12:42 Ibuprofen; ss 12:42 Lyrica; ss 12:42 meloxicam; ss 12:42 nalbuphine HCl; ss 12:42 Naproxen; ss 12:42 Naproxen Sodium; ss 12:42 NSAIDS (Non-Steroidal Anti-Inflammatory Drug); ss 12:42 Nubain; ss 12:42 Vistaril; ss 12:42 Risperdal; ss - PMHx: 12:42 ADD/ADHD; Anxiety; Arthritis; Back pain; Chronic pain; Irritable bowel syndrome; ss Osteoporosis; restless leg syndrome; Tachycardia; - Immunization history:: Adult Immunizations up to date. - Social history:: Smoking status: Patient/guardian denies using tobacco, but has a distant history of tobacco abuse. Screenin:19 Abuse screen: Denies threats or abuse. Denies injuries from another. Nutritional ss screening: No deficits noted. Tuberculosis screening: Never had TB. Fall Risk None identified. Vital Signs: 12:42 BP 135 / 66; Pulse 91; Resp 17; Temp 98.1(O); Pulse Ox 99% on R/A; Weight 52.16 kg; ss Height 5 ft. 0 in. (152.40 cm); Pain 8/10; 12:42 Body Mass Index 22.46 (52.16 kg, 152.40 cm) ED Course: 12:35 Patient arrived in ED. am2 12:35 Nirmal Hancock DO is Private Physician. am2 12:40 Triage completed. ss 12:42 Arm band placed on right wrist. 12:51 Minda David RN is Primary Nurse. ll1 12:53 Santosh Pulido PA is PHCP. jr8 12:53 Roverto Zayas MD is Attending Physician. jr8 14:10 Alexandru Solitario MD is Referral Physician. jr8 14:18 No provider procedures requiring assistance completed. Patient did not have IV access ss during this emergency room visit. 14:19 Patient has correct armband on for positive identification. Bed in low position. Call ss light in reach. Administered Medications: 14:04 Drug: Lidocaine (1 %) 1 vials {Note: both knees, by PA. Ricardo} Volume: 5 ml; Route: ll1 Infiltration; 14:05 Drug: Kenalog (triamcinolone acetonide) 15 mg {Note: both knees, by PA. Landon .} ll1 Route: IM; Site: affected area; Outcome: 14:10 Discharge ordered by . jr8 14:18 Discharged to home ambulatory. 14:18 Condition: good 14:18 Discharge instructions given to patient, Instructed on discharge instructions, follow up and referral plans. Demonstrated understanding of instructions, follow-up care, medications. 14:20 Patient left the ED. Signatures: Andria Yun RN RN Santosh Pulido PA PA jr8 Amie Nunes am2 Minda David RN RN ll1
--- NOTE | 2020-11-13 14:11 | EDPHYS ---
Physician Documentation [facility] Name: Martha Pradhan Age: 60 yrs Sex: Female : 1960 Arrival Date: 11/13/2020 Time: 12:35 Bed 16 Private MD: Santi [facility] ED Physician Roverto Zayas HPI: 11/13 14:05 This 60 yrs old Female presents to ER via Ambulatory with complaints of knee jr8 pain and swelling. 14:05 Onset: The symptoms/episode began/occurred gradually. Modifying factors: The symptoms jr8 are alleviated by nothing. the symptoms are aggravated by movement, weight bearing, bending knee. Associated signs and symptoms: The patient has no apparent associated signs or symptoms. Severity of symptoms: At their worst the symptoms were moderate, in the emergency department the symptoms are unchanged. The patient has experienced similar episodes in the past, several times. The patient has not recently seen a physician. Patient with chronic back pain and knee pain. Stated that she has been having swelling and pain to left knee. Denies recent injury. Historical: - Allergies: 12:42 Demerol; ss 12:42 haloperidol lactate; ss 12:42 hydroxyzine HCl; ss 12:42 Hydroxyzine Pamoate; ss 12:42 Ibuprofen; ss 12:42 Lyrica; ss 12:42 meloxicam; ss 12:42 nalbuphine HCl; ss 12:42 Naproxen; ss 12:42 Naproxen Sodium; ss 12:42 NSAIDS (Non-Steroidal Anti-Inflammatory Drug); ss 12:42 Nubain; ss 12:42 Vistaril; ss 12:42 Risperdal; ss - PMHx: 12:42 ADD/ADHD; Anxiety; Arthritis; Back pain; Chronic pain; Irritable bowel syndrome; ss Osteoporosis; restless leg syndrome; Tachycardia; - Immunization history:: Adult Immunizations up to date. - Social history:: Smoking status: Patient/guardian denies using tobacco, but has a distant history of tobacco abuse. ROS: 14:05 Eyes: Negative for injury, pain, redness, and discharge, ENT: Negative for injury, jr8 pain, and discharge, Neck: Negative for injury, pain, and swelling, Cardiovascular: Negative for chest pain, palpitations, and edema, Respiratory: Negative for shortness of breath, cough, wheezing, and pleuritic chest pain, Abdomen/GI: Negative for abdominal pain, nausea, vomiting, diarrhea, and constipation, Back: Negative for injury and pain, Skin: Negative for injury, rash, and discoloration, Neuro: Negative for headache, weakness, numbness, tingling, and seizure. 14:05 MS/extremity: Positive for pain, swelling, tenderness, of the left knee. Exam: 14:05 Constitutional: This is a well developed, well nourished patient who is awake, alert, jr8 and in no acute distress. Cardiovascular: Regular rate and rhythm with a normal S1 and S2. No gallops, murmurs, or rubs. Normal PMI, no JVD. No pulse deficits. Respiratory: Lungs have equal breath sounds bilaterally, clear to auscultation and percussion. No rales, rhonchi or wheezes noted. No increased work of breathing, no retractions or nasal flaring. Skin: Warm, dry with normal turgor. Normal color with no rashes, no lesions, and no evidence of cellulitis. Neuro: Awake and alert, GCS 15, oriented to person, place, time, and situation. Cranial nerves II-XII grossly intact. Motor strength 5/5 in all extremities. Sensory grossly intact. Cerebellar exam normal. Normal gait. 14:05 Musculoskeletal/extremity: Extremities: grossly normal except: noted in the left knee: pain, swelling, tenderness, ROM: intact in all extremities, full active range of motion, full passive range of motion, limited active range of motion due to pain, limited passive range of motion due to pain, Circulation is intact in all extremities. Sensation intact. Vital Signs: 12:42 BP 135 / 66; Pulse 91; Resp 17; Temp 98.1(O); Pulse Ox 99% on R/A; Weight 52.16 kg; ss Height 5 ft. 0 in. (152.40 cm); Pain 8/10; 12:42 Body Mass Index 22.46 (52.16 kg, 152.40 cm) Procedures: 14:05 Joint Treatment: injection of left knee using 18 gauge needle, Lidocaine, kenalog. jr8 Dressed with band aid, Patient tolerated well. Inected 2.5 ml of lidocaine with 1/2 ml (20mg) kenalog into left intraarticular knee joint . MDM: 12:53 Patient medically screened. jr8 14:05 Data reviewed: vital signs, nurses notes, and as a result, I will discharge patient. jr8 Data interpreted: Pulse oximetry: on room air is 99 %. Interpretation: normal. Counseling: I had a detailed discussion with the patient and/or guardian regarding: the historical points, exam findings, and any diagnostic results supporting the discharge/admit diagnosis, the need for outpatient follow up, a orthopedic surgeon, a painter set, to return to the emergency department if symptoms worsen or persist or if there are any questions or concerns that arise at home. Administered Medications: 14:04 Drug: Lidocaine (1 %) 1 vials {Note: both knees, by PA. Ricardo} Volume: 5 ml; Route: ll1 Infiltration; 14:05 Drug: Kenalog (triamcinolone acetonide) 15 mg {Note: both knees, by PA. Landon .} ll1 Route: IM; Site: affected area; Disposition: 16:49 Co-signature as Attending Physician, Roverto Zayas MD I agree with the assessment and kdr plan of care. Disposition: 11/13/20 14:10 Discharged to Home. Impression: Pain in left knee, Osteoarthritis of knee. - Condition is Stable. - Discharge Instructions: Arthritis, Knee Injection, Knee Pain. - Medication Reconciliation Form, Thank You Letter, Antibiotic Education, Prescription Opioid Use form. - Follow up: Alexandru Solitario MD; When: 7 - 10 days; Reason: Recheck today's complaints, Continuance of care, Re-evaluation by your physician. - Problem is new. - Symptoms have improved. Signatures: Roverto Zayas MD MD [facility] Andria Yun RN RN Santosh Pulido PA PA jr8 Minda David RN RN ll1 Corrections: (The following items were deleted from the chart) 14:20 14:10 11/13/2020 14:10 Discharged to Home. Impression: Pain in left knee; ss Osteoarthritis of knee. Condition is Stable. Forms are Medication Reconciliation Form, Thank You Letter, Antibiotic Education, Prescription Opioid Use. Follow up: Alexandru Solitario; When: 7 - 10 days; Reason: Recheck today's complaints, Continuance of care, Re-evaluation by your physician. Problem is new. Symptoms have improved. jr8
[2020-11-13 14:26] VITALS: BP 135/66; TEMP 98.1; O2SAT 99
== END 2020-11-13 14:20 | disposition home or self-care (01) ==
LOC: ER 12:33
DX: M17.12 Unilateral primary osteoarthritis, left knee (principal); Z88.5 Allergy status to narcotic agent; Z88.6 Allergy status to analgesic agent; Z88.8 Allergy status to other drugs, medicaments and biological substances
CPT/HCPCS: 96372; 99283; J3301

== ENCOUNTER 2020-12-04 23:50 | Emergency (ER) | payer OTHER ==
--- OUTSIDE RECORDS SUMMARY | 2020-12-04 23:53 | XMS REPORT | Continuity of Care Document ---
:1960 Author Organization [facility] t Address [address] [place] [address] Care Team Providers Name Role Phone Maria Elena TEE Attending Clinician Doctor Unassigned, Name Attending Clinician Unavailable Only, Test Attending Clinician Unavailable Maria Elena TEE Admitting Clinician Problems This patient has no known problems. Allergies, Adverse Reactions, Alerts Allergy Allergy Status Severity Reaction(s) Onset Inactive Treating Comm ents Source Name Type Date Date Clinician Lodine Adverse [facility] Vistaril Adverse Active seizure [facility] Nubain Adverse Active throat [facility] Mobic Adverse Active seizure [facility] Lyrica Adverse Active throat [facility] Ibuprofe Adverse Active [facility] Haldol Adverse Active throat [facility] Medications Ordered Filled Start [...] Date/Time Type Type Clinicians Facility Department ID 2020-11-25 2020-11-25 Hospital MESHA Arredondo [id number] 09:18:00 13:13:00 Encounter [facility] [id number] Clear 4.2.7.2.686 [place] [id number] Hospital 049 ([facility]) 2020-11-25 2020-11-25 Surgery [facility] [id number] [id number] 11:00:00 12:14:00 [facility] [id number] Clear 4.2.7.2.686 [place] [id number] Hospital 020 ([facility]) 2020-11-25 2020-11-25 Orders Doctor BELL [id number] [id number] 00:00:00 00:00:00 Only Unassigned, SUSHILA 350.1.13.10 [place] [facility] 4.2.7.2.686 [id number] [id number] 2020-11-25 2020-11-25 Prep For RAY Arredondo [id number] 00:00:00 00:00:00 Surgery Елена CONTI 350.1.13.10 HOSPITAL 4.2.7.2.686 [id number] 2020-11-25 2020-11-25 Refill MESHA Arredondo [id number] 00:00:00 00:00:00 [facility] [id number] Clear 4.2.7.2.686 [place] [id number] [place] [address] ([facility]) 2020-11-25 2020-11-25 Refill Maria Elena [facility] 1.2.840.114 [id number] 00:00:00 00:00:00 [facility] 350.1.13.10 Clear 4.2.7.2.686 [place] [id number] [place] [address] ([facility]) 2020-11-14 2020-11-14 [facility] [id number] [facility] 2020-11-12 2020-11-12 [facility] [id number] [facility] 2020-11-03 2020-11-03 Prep For RAY Arredondo [id number] 00:00:00 00:00:00 Surgery Елена CONTI [id number] [facility] 4.2.7.2.686 [id number] 2020-10-31 2020-10-31 Telephone Maria Elena [place] [id number] [id number] 00:00:00 00:00:00 [facility] [id number] CARE 4.2.7.2.686 [place] AT [id number] MARYSOL Jaida ROMAN 2020-10-24 2020-10-24 Outpatient [facility] [id number] [facility] 2020-10-15 2020-10-15 Outpatient [facility] [id number] [facility] 2020-07-23 2020-07-23 Laboratory Only, [place] 1.2.840.114 [id number] 11:51:15 12:06:15 Only Test [place] 350.1.13.10 [place] 4.2.7.2.686 [place] [id number] 2020-07-23 2020-07-23 Orders Doctor RAY 1.2.840.114 [id number] 00:00:00 00:00:00 Only Unassigned, [facility].13.10 [facility] 4.2.7.2.686 [id number] [id number] 2020-07-18 2020-07-18 [facility] [id number] [facility] 2020-07-15 2020-07-15 Office Maria Elena, [facility] 1.2.840.114 [id number] 13:45:51 14:15:51 Visit [facility] [id number] [facility] 4.2.7.2.686 [facility] [id number] MARYSOL ROMAN 2020-06-18 2020-06-18 [facility] [id number] [facility] 2020-05-15 2020-05-15 [facility] [id number] [facility] 2020-04-17 2020-04-17 [facility] [id number] [facility] 2020-04-11 2020-04-11 [facility] [id number] [facility] 2020-04-08 2020-04-08 [facility] [id number] [facility] 2020-03-20 2020-03-20 [facility] [id number] [facility] 2019-12-19 2019-12-19 [facility] [id number] 10:45:00 10:45:00 t [place] AMKAI s - Drive [facility] Medicine l Medicine Outpati ent Clinics 2019-12-19 2019-12-19 [facility] [id number] 10:00:00 10:00:00 t Trim[place] AMKAI s - Drive [facility] l Medicine Outpati ent Clinics 2019-12-03 2019-12-03 [facility] [id number] 10:17:00 10:17:00 t [place] AMKAI s - Drive [facility] l Medicine Outpati ent Clinics 2019-12-03 2019-12-03 [facility] [id number] 09:59:00 09:59:00 t TherOx s - Drive [facility] l Medicine Outpati ent Clinics 2019-11-29 2019-11-29 [facility] [id number] 09:45:00 09:45:00 t [place] AMKAI s - Drive [facility] l Medicine Outpati ent Clinics 2019-11-13 2019-11-13 [facility] [id number] 11:17:00 11:17:00 [facility] s Road [facility] l Medicine Outpati ent Clinics 2019-11-06 2019-11-06 [facility] [id number] 15:08:00 15:08:00 t [place] AMKAI s - Drive [facility] l Medicine Outpati ent Clinics 2019-11-01 2019-11-01 [facility] [id number] 16:03:00 16:03:00 t Trim[place] AMKAI s - Drive [facility] l Medicine Outpati ent Clinics 2019-10-31 2019-10-31 [facility] [id number] 09:15:00 09:15:00 t TherOx s - Drive [facility] l Medicine Outpati ent Clinics 2019-10-01 2019-10-01 [facility] [id number] 10:00:00 10:00:00 [facility] 2019-08-27 2019-08-27 Outpatient [facility] [id number] 14:00:00 14:00:00 [facility] 2019-07-30 2019-07-30 Outpatient Carmen [facility] [id number] 11:00:00 11:00:00 [facility] ent Clinics Results This patient has no known results.
[2020-12-05] MEDS ORDERED: METHYLPREDNISOLONE 125 MG INJ ONE (00:20)
[2020-12-05] MEDS ORDERED: NA CHLORIDE 0.9% 1,000 ML ONE ×2 (00:21→04:45)
[2020-12-05] MEDS ORDERED: Levofloxacin 750mg IV 750 MG/150 ML BAG IV ONE (00:21)
[2020-12-05 00:22] LABS: Absolute Lymphocytes (CBC) 1.5 K/uL (0.7-4.9); Basophils % 0.4 % (0-1.3); Hematocrit 25.4 % (36.0-45.0); Lymphocytes % 4.4 % (15.3-44.8); MPV 8.1 fL (7.6-11.3); RBC Red Blood Cell Count 2.91 M/uL (3.86-4.86)
[2020-12-05 00:37] LABS: Protime INR 3.28
--- NOTE | 2020-12-05 01:00 | EDPHYS ---
Physician Documentation [facility] Name: Martha Pradhan Age: 60 yrs Sex: Female : 1960 Arrival Date: 12/04/2020 Time: 23:51 Bed 2 Private MD: ED Physician Keyshawn Kaur HPI: 12/05 00:03 This 60 yrs old Female presents to ER via EMS with complaints of Shortness Of jr8 Breath. 00:03 The patient has shortness of breath at rest. Onset: The symptoms/episode began/occurred jr8 gradually, 1 week(s) ago. Duration: The symptoms are continuous, and are steadily getting worse. The patient's shortness of breath is aggravated by light activity, walking. Associated signs and symptoms: Pertinent positives: non-productive cough, fever. Severity of symptoms: At their worst the symptoms were moderate in the emergency department the symptoms are unchanged. The patient has not experienced similar symptoms in the past. The patient has not recently seen a physician. Historical: - Allergies: 12/04 23:58 Vistaril; ea 23:58 Risperdal; ea 23:58 Nubain; ea 23:58 NSAIDS (Non-Steroidal Anti-Inflammatory Drug); ea 23:58 Naproxen Sodium; ea 23:58 Naproxen; ea 23:58 nalbuphine HCl; ea 23:58 meloxicam; ea 23:58 Lyrica; ea 23:58 Ibuprofen; ea 23:58 Hydroxyzine Pamoate; ea 23:58 hydroxyzine HCl; ea 23:58 haloperidol lactate; ea 23:58 Demerol; ea - PMHx: 23:59 Tachycardia; restless leg syndrome; Osteoporosis; Irritable bowel syndrome; Chronic ea pain; Back pain; Arthritis; Anxiety; ADD/ADHD; - Immunization history:: Adult Immunizations up to date. - Social history:: Smoking status: Patient/guardian denies using tobacco, but has a distant history of tobacco abuse. ROS: 12/05 00:03 Cardiovascular: Negative for chest pain, palpitations, and edema, Abdomen/GI: Negative jr8 for abdominal pain, nausea, vomiting, diarrhea, and constipation. Constitutional: Positive for fever. Respiratory: Positive for cough, dyspnea on exertion, shortness of breath. All other systems are negative. Exam: 00:03 ENT: Nares patent. No nasal discharge, no septal abnormalities noted. Tympanic jr8 membranes are normal and external auditory canals are clear. Oropharynx with no redness, swelling, or masses, exudates, or evidence of obstruction, uvula midline. Mucous membranes moist. Neck: Trachea midline, no thyromegaly or masses palpated, and no cervical lymphadenopathy. Supple, full range of motion without nuchal rigidity, or vertebral point tenderness. No Meningismus. 00:03 Abdomen/GI: Soft, non-tender, with normal bowel sounds. No distension or tympany. No guarding or rebound. No evidence of tenderness throughout. Back: No spinal tenderness. No costovertebral tenderness. Full range of motion. Skin: Warm, dry with normal turgor. Normal color with no rashes, no lesions, and no evidence of cellulitis. MS/ Extremity: Pulses equal, no cyanosis. Neurovascular intact. Full, normal range of motion. Neuro: Awake and alert, GCS 15, oriented to person, place, time, and situation. Motor strength 5/5 in all extremities. Sensory grossly intact. 00:03 Constitutional: The patient appears alert, awake, uncomfortable. 00:03 Cardiovascular: Rate: tachycardic, Rhythm: regular, Pulses: Pulses are 2+ in right radial artery and left radial artery. Heart sounds: normal, normal S1and S2, no S3 or S4, no murmur, no rub, no gallop, Edema: is not appreciated. 00:03 Respiratory: mild respiratory distress is noted, Respirations: accessory muscle usage, that is mild, tachypnea, Breath sounds: decreased breath sounds, that are mild, are heard in the right posterior middle lobe and right posterior lower lobe, rhonchi, that are mild, are scattered. Vital Signs: 12/04 23:55 BP 116 / 77; Pulse 105; Resp 32; Temp 98.8; Pulse Ox 73% on R/A; ea 12/05 02:09 BP 112 / 45; Pulse 88; Resp 20; Pulse Ox 95% on BiPAP; ak2 03:00 BP 118 / 53; Pulse 86; Resp 29; Pulse Ox 98% on 45% BiPAP; ea 04:00 BP 118 / 54; Pulse 91; Resp 22; Temp 98.6; Pulse Ox 97% ; ea 05:41 BP 102 / 62; Pulse 93; Resp 26; Pulse Ox 97% ; ea 12/04 23:55 pt placed on non rebreather ea MDM: 23:53 Patient medically screened. [email or web address]] 12/05 00:57 Data reviewed: vital signs, nurses notes, lab test result(s), EKG, radiologic studies, [facility] [email or web address] CT scan, plain films. Data interpreted: Pulse oximetry: on room air is 73 %. Interpretation: normal. Counseling: I had a detailed discussion with the patient and/or guardian regarding: the historical points, exam findings, and any diagnostic results supporting the discharge/admit diagnosis, lab results, radiology results, the need for further work-up and treatment in the hospital. 12/04 23:54 Order name: Basic Metabolic Panel [facility] [[email or web address]] 12/04 23:54 Order name: CBC with Diff [facility] [[email or web address]] 12/04 23:54 Order name: LFT's [facility] [[email or web address]] 12/04 23:54 Order name: Magnesium; Complete Time: 03:48 [facility] [[email or web address]] 12/04 23:54 Order name: NT PRO-BNP; Complete Time: 03:48 [facility] [[email or web address]] 12/04 23:54 Order name: PT-INR; Complete Time: 01:32 [facility] [[email or web address]] 12/04 23:54 Order name: Troponin (emerg Dept Use Only); Complete Time: 03:48 [facility] [[email or web address]] 12/04 23:54 Order name: Blood Culture Adult (2) [facility] [[email or web address]] 12/04 23:54 Order name: Procalcitonin; Complete Time: 01:23 [email or web address]] 12/04 23:54 Order name: Lactate; Complete Time: 03:48 [facility] [[email or web address]] 12/04 23:55 Order name: Basic Metabolic Panel; Complete Time: 03:48 [facility] 12/04 23:55 Order name: CBC with Automated Diff [facility] 12/04 23:55 Order name: Liver (Hepatic) Function; Complete Time: 03:48 [facility] 12/04 23:54 Order name: XRAY Chest (1 view) [facility] [[email or web address]] 12/05 00:18 Order name: CT Chest Wo Con [facility] [[email or web address]] 12/05 00:45 Order name: Manual Differential [facility] 12/05 01:26 Order name: ABG; Complete Time: 01:46 la1 12/05 01:43 Order name: SARS-COV-2 RT PCR; Complete Time: 01:46 EDMS 12/05 01:48 Order name: Phosphorus eric 12/05 01:49 Order name: Phosphorus; Complete Time: 04:25 EDMS 12/05 03:45 Order name: Urine --Ancillary (enter results) tt3 12/05 03:52 Order name: BIPAP eric 12/04 23:54 Order name: EKG; Complete Time: 23:55 12/04 23:54 Order name: Cardiac monitoring; Complete Time: 00:12/04 23:54 Order name: EKG - Nurse/Tech; Complete Time: 00:12/04 23:54 Order name: IV Saline Lock; Complete Time: 00:12/04 23:54 Order name: Labs collected and sent; Complete Time: 00:12/04 23:54 Order name: O2 Per Protocol; Complete Time: 00:12/04 23:54 Order name: O2 Sat Monitoring; Complete Time: 00:12/05 03:52 Order name: Burciaga eric Administered Medications: 00:00 Drug: LevaQUIN (levofloxacin) 750 mg Volume: 150 ml; Route: IVPB; Infused Over: 90 ak2 mins; Site: right antecubital; 01:40 Follow up: Response: No adverse reaction; IV Status: Completed infusion; IV Intake: ea 150ml 00:00 Drug: NS 0.9% 1000 ml Route: IV; Rate: 1000 ml; Site: right antecubital; ak2 01:30 Follow up: Response: No adverse reaction; IV Status: Completed infusion ea 00:01 Drug: SOLU-Medrol (methylPrednisoLONE) 125 mg Route: IVP; Site: right antecubital; ak2 02:00 Follow up: Response: No adverse reaction ea 01:32 Drug: Zosyn (piperacillin-tazobactam) 3.375 grams Route: IVPB; Infused Over: 60 mins; ea Site: right antecubital; 03:00 Follow up: IV Status: Completed infusion ea 01:54 Drug: Potassium Chloride 20 mEq Route: IV; Rate: per protocol; Site: right antecubital; ak2 03:00 Follow up: IV Status: Completed infusion ea 04:19 Drug: Ativan (LORazepam) 0.5 mg Route: IVP; Site: right antecubital; tl1 05:36 Follow up: Response: No adverse reaction ea 04:35 Drug: Pepcid (famotidine) 20 mg Route: IVP; Site: right antecubital; ea 05:38 Follow up: Response: No adverse reaction ea 04:39 Drug: Magnesium Sulfate 1 grams Route: IVPB; Infused Over: 1 hrs; Site: right ea antecubital; 05:37 Follow up: Response: No adverse reaction; IV Status: Completed infusion ea 04:39 Drug: NS 0.9% 1000 ml Route: IV; Rate: 1 bolus; Site: right antecubital; ea 05:38 Follow up: IV Status: Infusion continued upon transfer ea 04:44 Drug: NS 0.9% with KCl 20 mEq/L 1000 ml Route: IV; Rate: 100 ml/hr; Site: right ea antecubital; 05:38 Follow up: IV Status: Infusion continued upon transfer ea 04:53 Drug: vancoMYCIN 1 grams Route: IVPB; Infused Over: 2 hrs; Site: right antecubital; ea 05:38 Follow up: IV Status: Infusion continued upon transfer ea 04:53 Drug: Potassium Chloride 20 mEq Route: IV; Rate: per protocol; Site: right antecubital; ea 05:38 Follow up: IV Status: Infusion continued upon transfer ea Disposition: 07:12 Co-signature as Attending Physician, Keyshawn Kaur MD I agree with the assessment and eric plan of care. Disposition: 12/05/20 03:56 Transfer ordered to Other Acute Care Facility. Diagnosis are Pneumonia, unspecified organism - BILATERAL, Severe sepsis without septic shock, Hypokalemia, Hypomagnesemia, Elevated white blood cell count, Hypoxemia, Pleural effusion in conditions classified elsewhere. - Reason for transfer: Higher level of care. - Accepting physician is to [facility], [facility]. - Condition is Serious. - Problem is new. - Symptoms have improved. Signatures: Dispatcher [employer] Keyshawn Jefferson MD MD cha Roszak, Josh, PA PA jr8 Con Alas, WET AND DRY SUGAR BIN OPERATOR-C WET AND DRY SUGAR BIN OPERATOR-Cla1 Angelica Ralph, RN RN tl1 Juany Herrera RN RN Michael Dunham Corrections: (The following items were deleted from the chart) 00:33 12/04 23:55 CORONAVIRUS+MR.LAB.BRZ ordered. [facility] 12/05 01:00 00:59 Hospitalization Ordered by Bruce Choe DO for Inpatient Admission. Preliminary jr8 diagnosis is Pneumonia due to other specified bacteria; Acute respiratory failure with hypoxia. Bed requested for Telemetry/MedSurg (Inpatient). Status is Inpatient Admission. Condition is Fair. Problem is new. Symptoms have improved. jr8 01:38 01:00 12/05/2020 00:59 Hospitalization Ordered by Bruce Choe DO for Inpatient la1 Admission. Preliminary diagnosis is Pneumonia due to other specified bacteria; Acute respiratory failure with hypoxia; Severe sepsis. Bed requested for Telemetry/MedSurg (Inpatient). Status is Inpatient Admission. Condition is Fair. Problem is new. Symptoms have improved. jr8 05:45 03:56 12/05/2020 03:56 Transfer ordered to Other Acute Care Facility. Diagnosis is ea Pneumonia, unspecified organism - BILATERAL; Severe sepsis without septic shock; Hypokalemia; Hypomagnesemia; Elevated white blood cell count; Hypoxemia; Pleural effusion in conditions classified elsewhere. Reason for transfer: Higher level of care. Accepting physician is to [facility], [facility]. Condition is Serious. Problem is new. Symptoms have improved. eric
--- NOTE | 2020-12-05 01:00 | ER ---
Nurse's Notes [facility] Name: Martha Pradhan Age: 60 yrs Sex: Female : 1960 Arrival Date: 12/04/2020 Time: 23:51 Bed 2 Private MD: Diagnosis: Pneumonia, unspecified organism-BILATERAL;Severe sepsis without septic shock;Hypokalemia;Hypomagnesemia;Elevated white blood cell count;Hypoxemia;Pleural effusion in conditions classified elsewhere Presentation: 12/04 23:55 Chief complaint: EMS states: Pt complaining of shortness of breath, reports having ea fever at home. Coronavirus screen: At this time, the client does not indicate any symptoms associated with coronavirus-19. Ebola Screen: No symptoms or risks identified at this time. Initial Sepsis Screen: Does the patient meet any 2 criteria? HR > 90 bpm. Does the patient have a suspected source of infection? No. Patient's initial sepsis screen is negative. Risk Assessment: Do you want to hurt yourself or someone else? Patient reports no desire to harm self or others. Onset of symptoms was December 04, 2020. 23:55 Method Of Arrival: EMS: [facility] ea 23:55 Acuity: ROSALBA 3 ea Triage Assessment: 23:59 General: Appears uncomfortable, Behavior is appropriate for age. Pain: Denies pain. ea Neuro: Level of Consciousness is awake, alert, obeys commands, Oriented to person, place, time. Cardiovascular: Patient's skin is warm and dry. Respiratory: Reports shortness of breath. Derm: Skin is dry, Skin is pale, Skin temperature is warm. 12/05 02:11 Respiratory: Onset: The symptoms/episode began/occurred today, the patient has moderate ak2 shortness of breath. Historical: - Allergies: 12/04 23:58 Vistaril; ea 23:58 Risperdal; ea 23:58 Nubain; ea 23:58 NSAIDS (Non-Steroidal Anti-Inflammatory Drug); ea 23:58 Naproxen Sodium; ea 23:58 Naproxen; ea 23:58 nalbuphine HCl; ea 23:58 meloxicam; ea 23:58 Lyrica; ea 23:58 Ibuprofen; ea 23:58 Hydroxyzine Pamoate; ea 23:58 hydroxyzine HCl; ea 23:58 haloperidol lactate; ea 23:58 Demerol; ea - PMHx: 23:59 Tachycardia; restless leg syndrome; Osteoporosis; Irritable bowel syndrome; Chronic ea pain; Back pain; Arthritis; Anxiety; ADD/ADHD; - Immunization history:: Adult Immunizations up to date. - Social history:: Smoking status: Patient/guardian denies using tobacco, but has a distant history of tobacco abuse. Screenin:57 Abuse screen: Denies threats or abuse. Nutritional screening: No deficits noted. ea Tuberculosis screening: No symptoms or risk factors identified. Fall Risk IV access (20 points). Assessment: 12/05 00:00 Reassessment: see triage assessment. ea 00:00 Cardiovascular: Patient's skin is warm and dry. Rhythm is sinus tachycardia. ea Respiratory: Airway is patent Respiratory effort is labored, Respiratory pattern is tachypnea. 01:43 Reassessment: Patient and/or family updated on plan of care and expected duration. Pain ea level reassessed. Pt placed on BiPAP. 02:10 Respiratory: Breath sounds are coarse. ak2 03:30 Reassessment: Patient and/or family updated on plan of care and expected duration. Pain ea level reassessed. Pt remains on BiPAP, tolerating well. 05:44 Reassessment: Patient and/or family updated on plan of care and expected duration. Pain ea level reassessed. [facility] at facility for tranfer. Report given to EMS. Pt left ED via stretcher per EMS. Pt tolerating well. Vital Signs: 12/04 23:55 BP 116 / 77; Pulse 105; Resp 32; Temp 98.8; Pulse Ox 73% on R/A; ea 12/05 02:09 BP 112 / 45; Pulse 88; Resp 20; Pulse Ox 95% on BiPAP; ak2 03:00 BP 118 / 53; Pulse 86; Resp 29; Pulse Ox 98% on 45% BiPAP; ea 04:00 BP 118 / 54; Pulse 91; Resp 22; Temp 98.6; Pulse Ox 97% ; ea 05:41 BP 102 / 62; Pulse 93; Resp 26; Pulse Ox 97% ; ea 12/04 23:55 pt placed on non rebreather ea ED Course: 23:51 Patient arrived in ED. ea 23:53 Santosh Puildo PA is PHCP. jr8 23:53 Keyshawn Kaur MD is Attending Physician. jr8 23:56 Michael Chavarria is Primary Nurse. ak2 23:57 Triage completed. ea 23:57 Inserted saline lock: 20 gauge in right antecubital area, using aseptic technique. ea Blood collected. 23:57 Patient has correct armband on for positive identification. Bed in low position. Call ea light in reach. Side rails up X2. electronic device monitor on. Pulse ox on. NIBP on. 23:59 Arm band placed on right wrist. Patient placed in an exam room, on a stretcher, on ea oxygen, on teletypesetter monitor, on pulse oximetry. 12/05 00:21 XRAY Chest (1 view) In Process Unspecified. EDMS 00:44 Notified ED physician of a critical lab result(s). WBC 33.5, platelets 1115. tl1 00:54 CT Chest Wo Con In Process Unspecified. EDMS 00:58 Bruce Choe DO is Hospitalizing Provider. jr8 01:45 Dr. Kaur initiated transfer at [facility]. tt3 01:47 [facility] denied due to capacity. tt3 01:51 Initiated transfer at [facility] with Beth. Call was transferred to Juany tt3 ALEXANDRA Herrera, primary nurse for further questioning. Beth stated she would do a capacity check at [facility] and call back and we could check other campuses afterwards if needed. 02:10 No provider procedures requiring assistance completed. ea 02:14 Beth called back and stated that [facility] [place]. Dr. Kaur suggested tt3 [facility]. Beth stated that she would check with [facility] and call back. 02:46 Beth called back and stated that [facility] was at capacity so the request was tt3 denied. Beth stated she would check [facility]. 02:48 Initiated transfer at [facility] with Shama Valencia. Stated she would do a capacity check and tt3 call back. 03:05 Shama with [facility] called back and stated that all [facility] campuses are at capacity so they tt3 would have to deny the transfer request. 03:09 Initiated transfer at [facility] with Elias. Stated that they were at ICU tt3 capacity. 03:10 Called [facility] and was placed on hold until someone answered. tt3 03:15 Beth with [facility] called back and stated that [facility] denied due tt3 to capacity. 03:37 Beth with [facility] called back and stated that [facility] denied due to tt3 capacity. Stated she would check [facility] next per Dr. Kaur's request. 04:00 Beth Caraballo called with a physician for Dr. Kaur for consultation regarding tt3 the transfer. 04:[address] Kaur admin approval. The accepting physician is Dr. amber Worrell. The pt is going to [facility] ICU. Nurse to call report to . Face sheet, Covid results and MOT faxed to per Beth's request. 04:38 Patient transferred, IV remains in place. ea Administered Medications: 00:00 Drug: LevaQUIN (levofloxacin) 750 mg Volume: 150 ml; Route: IVPB; Infused Over: 90 ak2 mins; Site: right antecubital; 01:40 Follow up: Response: No adverse reaction; IV Status: Completed infusion; IV Intake: ea 150ml 00:00 Drug: NS 0.9% 1000 ml Route: IV; Rate: 1000 ml; Site: right antecubital; ak2 01:30 Follow up: Response: No adverse reaction; IV Status: Completed infusion ea 00:01 Drug: SOLU-Medrol (methylPrednisoLONE) 125 mg Route: IVP; Site: right antecubital; ak2 02:00 Follow up: Response: No adverse reaction ea 01:32 Drug: Zosyn (piperacillin-tazobactam) 3.375 grams Route: IVPB; Infused Over: 60 mins; ea Site: right antecubital; 03:00 Follow up: IV Status: Completed infusion ea 01:54 Drug: Potassium Chloride 20 mEq Route: IV; Rate: per protocol; Site: right antecubital; ak2 03:00 Follow up: IV Status: Completed infusion ea 04:19 Drug: Ativan (LORazepam) 0.5 mg Route: IVP; Site: right antecubital; tl1 05:36 Follow up: Response: No adverse reaction ea 04:35 Drug: Pepcid (famotidine) 20 mg Route: IVP; Site: right antecubital; ea 05:38 Follow up: Response: No adverse reaction ea 04:39 Drug: Magnesium Sulfate 1 grams Route: IVPB; Infused Over: 1 hrs; Site: right ea antecubital; 05:37 Follow up: Response: No adverse reaction; IV Status: Completed infusion ea 04:39 Drug: NS 0.9% 1000 ml Route: IV; Rate: 1 bolus; Site: right antecubital; ea 05:38 Follow up: IV Status: Infusion continued upon transfer ea 04:44 Drug: NS 0.9% with KCl 20 mEq/L 1000 ml Route: IV; Rate: 100 ml/hr; Site: right ea antecubital; 05:38 Follow up: IV Status: Infusion continued upon transfer ea 04:53 Drug: vancoMYCIN 1 grams Route: IVPB; Infused Over: 2 hrs; Site: right antecubital; ea 05:38 Follow up: IV Status: Infusion continued upon transfer ea 04:53 Drug: Potassium Chloride 20 mEq Route: IV; Rate: per protocol; Site: right antecubital; ea 05:38 Follow up: IV Status: Infusion continued upon transfer ea Intake: 01:40 IV: 150ml; Total: 150ml. ea Outcome: 00:59 Decision to Hospitalize by Provider. jr8 03:56 ER care complete, transfer ordered by . eric 04:38 Condition: stable ea 04:38 Instructed on the need for transfer, Demonstrated understanding of instructions. 05:41 Transferred by ground EMS Transfer form completed. ea 05:45 Patient left the ED. ea Signatures: Dispatcher [employer] EDMS Keyshawn Kaur MD MD cha Roszak, Josh, PA PA jr8 Angelica Ralph RN RN tl1 Juany Herrera RN RN ea Trim, Tyler tt3 Michael Chavarria
[2020-12-05] MEDS ORDERED: PIPER/TAZO/NS 3.375gm 3.375 GM/100 ML BAG ONE (01:30)
[2020-12-05 01:35] LABS: Arterial Blood Carboxyhemoglob 1.3 % (0-1.5); Blood Gas Oxyhemoglobin 84.7 % (94-97)
[2020-12-05 01:41] LABS: Blood Morphology Comment NOT SEEN (NOT SEEN); Platelet Estimate INCR; Platelets, Giant MOD
[2020-12-05 01:45] LABS: ALT/SGPT 26 U/L (12-78); AST/SGOT 25 U/L (15-37); Albumin 2.1 g/dL (3.4-5.0); Alkaline Phosphatase 314 U/L (45-117); BUN Blood Urea Nitrogen 15 mg/dL (7-18); Bicarbonate 17 mmol/L (21-32); Bilirubin Direct < 0.1 mg/dL (0-0.2); Bilirubin Total 0.3 mg/dL (0.2-1.0); Glucose Level 164 mg/dL (74-106); Magnesium 1.5 mg/dL (1.8-2.4); NT PRO-BNP 8909 pg/mL (<125); Protein, Total 7.5 g/dL (6.4-8.2); Sodium Level 137 mmol/L (136-145); Troponin (Emerg Dept Use Only) 0.02 ng/mL (0.0-0.045)
[2020-12-05 01:47] LABS: Potassium 2.7 mmol/L (3.5-5.1)
[2020-12-05] MEDS ORDERED: KCL 20 MEQ/100 mL IVPB 20 MEQ/100 ML BAG IV ONE ×2 (02:13→04:44)
[2020-12-05] MEDS ORDERED: LORazepam 2 MG/ML VIAL ONE (04:35)
[2020-12-05] MEDS ORDERED: MUPIROCIN 2% OINT 22GM TUBE TOP ONE (04:35)
[2020-12-05] MEDS ORDERED: VANCOMYCIN 1 GM/VIAL ONE (04:43)
[2020-12-05] MEDS ORDERED: NA CHLORIDE 0.9% 250 ML ONE (04:44)
[2020-12-05] MEDS ORDERED: NS KCL 20MEQ 1,000 ML IV ONE (04:44)
[2020-12-05] MEDS ORDERED: FAMOTIDINE 20 MG/2 ML VIAL IV ONE (04:44)
[2020-12-05] MEDS ORDERED: Magnesium Sulfate 2gm IVPB 2 G/50 ML BAG IV ONE (04:44)
[2020-12-05 05:58] VITALS: TEMP 98.6; O2SAT 97
[2020-12-05 06:00] VITALS: BP 102/62
--- NOTE | 2020-12-05 08:32 | RAD REPORT ---
EXAM DESCRIPTION: [place] Single View12/05/2020 12:21 am CLINICAL HISTORY: Shortness of breath COMPARISON: June 2020 FINDINGS: 5 centimeter opacity mid medial right lung Moderate additional bilateral pulmonary opacities. Small to moderate right pleural effusion. Heart is normal size IMPRESSION: 5 centimeter opacity right lung may represent pneumonia or neoplasm Additional bilateral pulmonary opacities probably pneumonia Small to moderate right pleural effusion
--- NOTE | 2020-12-05 10:43 | RAD REPORT ---
EXAM DESCRIPTION: CT - Thorax Wo Deshaun - 12/05/2020 6:19 am COMPARISON: CT chest November 06, 2019 CLINICAL HISTORY: [facility] MAIN PAIN TECHNIQUE: CT images through the chest without IV contrast. Multiplanar reformats. Automated expos ure control was utilized on this examination as a dose lowering technique. CT CHEST FINDINGS: Heart and mediastinum: Heart size is normal. Mediastinal and right hilar lymph no samantha measure up to 1.3 cm short axis (pretracheal series 201 image 20). Thyroid gland: Visualized portions are normal. Lungs: Diffuse bilateral groundglass opacities are present. There is masslike consolidation throughou t the right perihilar regions. The largest infrahilar region measures 7.6 x 3.7 x 5.6 cm. A region al mikaela the medial right middle lobe measures 5.3 cm and an ill-defined region in the superior right lowe r lobe measures 6.8 x 3.6 x 3.5 cm. Smaller nodular consolidations are noted throughout the right maurice g. Airways: No filling defects. No bronchiectasis. Pleura: No pneumothorax. Large right pleural effusion. Subphrenic structures: Large hiatal hernia. Musculoskeletal and soft tissues: Chronic posterior right rib fractures are noted. There are degenera tive changes of the left shoulder. Chronic L1 compression fracture. IMPRESSION: 1. Masslike consolidations throughout the right lung in the perihilar regions measure up to 7.6 cm. Scattered bilateral groundglass opacities are present. There is a large right pleural eff usion. Mediastinal and right hilar lymph nodes are prominent. These findings could represent multifoc al pneumonia and less likely right hilar neoplasm. 2. Large hiatal hernia. Electronically signed by: Yoel Isbell MD 12/05/2020 1:16 AM CDT Due to temporary technical issues with the PACS/Fluency reporting system, reports are being signed by the in house radiologist without review as a courtesy to ensure prompt reporting. The interpreting r adiologist is fully responsible for the content of the report.
--- NOTE | 2020-12-05 15:57 | EKG ---
Test Date: 2020-12-04 Test Time: 23:49:52 Picking Machine Operator Helper: NICHOLAS MEASUREMENT RESULTS: Intervals: Rate: 111 VA: 122 QRSD: 90 QT: 316 QTc: 429 Foley: P: 42 VA: 122 QRS: 63 T: -39 INTERPRETIVE STATEMENTS: Sinus tachycardia Nonspecific ST abnormality Abnormal QRS-T angle, consider primary T wave abnormality Abnormal ECG Compared to ECG 11/11/2019 00:37:45 ST (T wave) deviation now present T-wave abnormality now present Sinus rhythm no longer present Electronically Signed On 12-05-20 15:56:01 CDT by Nehemiah Mckinney
== END 2020-12-05 05:45 ==
LOC: ER 23:50
DX: J18.9 Pneumonia, unspecified organism (principal); R65.20 Severe sepsis without septic shock; R09.02 Hypoxemia; J91.8 Pleural effusion in other conditions classified elsewhere; E87.6 Hypokalemia; E83.42 Hypomagnesemia; D72.829 Elevated white blood cell count, unspecified; Z20.822 Contact with and (suspected) exposure to COVID-19; Z88.5 Allergy status to narcotic agent; Z88.6 Allergy status to analgesic agent; Z88.8 Allergy status to other drugs, medicaments and biological substances
CPT/HCPCS: 93005; 87040 ×2; 85025; 80048; 36415 ×2; 83735; 84100; 85610; 80076; 83605; 84484; 84145; 83880; 71250; 71045; 82805; 94660; U0003; J3480 ×3; J3370; J2543; J3475; J7050; J7030

== ENCOUNTER 2021-03-31 19:50 | Observation (INO) | payer OTHER ==
--- NOTE | 2021-03-31 21:20 | RAD REPORT ---
EXAM DESCRIPTION: Sarwat Bartlett And Michael (2 Views)03/31/2021 9:13 pm CLINICAL HISTORY: Chest pain COMPARISON: March 24, 2021 FINDINGS: Left basilar opacity has mildly to moderately decreased in size. The right lung appears c lear of acute infiltrate. A moderate hiatal hernia is seen. The heart is normal size Old rib fractures. Plate and screws affix an old left clavicular fracture IMPRESSION: Left basilar opacity has mildly to moderately decreased in size. It probably represents pneumonia
[2021-03-31] MEDS ORDERED: FENTANYL CITR 100 MCG/2 ML ONE (22:41)
[2021-03-31 23:25] LABS: Protime INR 1.13
[2021-03-31 23:27] LABS: Absolute Lymphocytes (CBC) 1.9 K/uL (0.7-4.9); Basophils % 0.2 % (0-1.3); Hematocrit 35.1 % (36.0-45.0); Lymphocytes % 23.5 % (15.3-44.8); MPV 7.6 fL (7.6-11.3); RBC Red Blood Cell Count 3.99 M/uL (3.86-4.86)
[2021-03-31 23:50] LABS: ALT/SGPT 37 U/L (12-78); AST/SGOT 25 U/L (15-37); Albumin 3.6 g/dL (3.4-5.0); Alkaline Phosphatase 190 U/L (45-117); BUN Blood Urea Nitrogen 18 mg/dL (7-18); Bicarbonate 20 mmol/L (21-32); Bilirubin Direct < 0.1 mg/dL (0-0.2); Bilirubin Total 0.1 mg/dL (0.2-1.0); Glucose Level 87 mg/dL (74-106); Magnesium 1.9 mg/dL (1.8-2.4); NT PRO-BNP 487 pg/mL (<125); Potassium 3.9 mmol/L (3.5-5.1); Protein, Total 8.1 g/dL (6.4-8.2); Sodium Level 140 mmol/L (136-145); Troponin (Emerg Dept Use Only) < 0.02 ng/mL (0.0-0.045)
[2021-04-01 00:22] LABS: Anisocytosis SLIGHT; Blood Morphology Comment NOTED (NOT SEEN); Platelet Estimate INCR; White Blood Cell Scan OK (OK)
[2021-04-01] MEDS ORDERED: FENTANYL CITR 100 MCG/2 ML ONE ×2 (00:24→02:34)
--- NOTE | 2021-04-01 01:51 | ER ---
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 Coronavirus screen: Vaccine status: Patient reports receiving the 2nd dose of the covid vaccine. Ebola Screen: Patient negative for fever greater than or equal to 101.5 degrees Fahrenheit, and additional compatible Ebola Virus Disease symptoms Patient denies exposure to infectious person. Patient denies travel to an Ebola-affected area in the 21 days before illness onset. No symptoms or risks identified at this time. Initial Sepsis Screen: Does the patient meet any 2 criteria? No. Patient's initial sepsis screen is negative. Does the patient have a suspected source of infection? No. Patient's initial sepsis screen is negative. Risk Assessment:. Onset of symptoms was March 27, 2021. 20:11 Method Of Arrival: Ambulatory sj1 20:11 Acuity: ROSALBA 4 sj1 Triage Assessment: 20:14 General: Appears in no apparent distress. Behavior is calm, cooperative, appropriate sj1 for age. Pain: Complains of pain in RT RIB PAIN Pain does not radiate. Pain currently is 9 out of 10 on a pain scale. at worst was 10 out of 10 on a pain scale. Quality of pain is described as SPASMS. Musculoskeletal: Reports pain in RT RIBS since TUESDAY. Historical: - Allergies: 20:14 haloperidol lactate; sj1 20:14 hydroxyzine HCl; sj1 20:14 meloxicam; sj1 20:14 Lyrica; sj1 20:14 Ibuprofen; sj1 20:14 Naproxen; sj1 20:14 Naproxen Sodium; sj1 20:14 NSAIDS (Non-Steroidal Anti-Inflammatory Drug); sj1 20:14 Nubain; sj1 20:14 Risperdal; sj1 20:14 Vistaril; sj1 - PMHx: 20:14 ADD/ADHD; Anxiety; Arthritis; Back pain; Chronic pain; Irritable bowel syndrome; sj1 Osteoporosis; restless leg syndrome; Tachycardia; Ulcer; - Immunization history:: Client reports receiving the 2nd dose of the Covid vaccine. - Social history:: Smoking status: Patient/guardian denies using tobacco. Screenin:44 Abuse screen: Denies threats or abuse. Denies injuries from another. Nutritional mr2 screening: No deficits noted. Tuberculosis screening: No symptoms or risk factors identified. Fall Risk IV access (20 points). Ambulatory Aid- Gait- Normal/Bed Rest/Wheelchair (0 pts). Assessment: 22:30 General: Appears uncomfortable, slender, Behavior is calm, cooperative, Smells of mr2 Reports. Pain: Pain at worst was 7 out of 10 on a pain scale. Musculoskeletal: Reports pain in ribs bilaterally. Injury Description: pt was leaning in to washing machine to retrieve coins and placed her entire body weight on to her ribs when she stood up she felt pain bilaterally and felt as though she may have injured her ribs. Vital Signs: 20:11 BP 122 / 60; Pulse 64; Resp 20; Temp 97.3; Pulse Ox 99% ; Weight 58.97 kg; Height 5 ft. sj1 0 in. (152.40 cm); Pain 9/10; 04/01 00:56 BP 117 / 66; Pulse 61; Resp 17; Temp 98.5; Pulse Ox 100% on R/A; Pain 4/10; mr2 03:25 BP 126 / 74; Pulse 66; Resp 18; Temp 98.5; Pulse Ox 98% on R/A; mr2 03/31 20:11 Body Mass Index 25.39 (58.97 kg, 152.40 cm) 1 ED Course: 03/31 19:54 Patient arrived in ED. ja2 20:14 Triage completed. sj1 21:13 Chest Pa And Lat (2 Views) XRAY In Process Unspecified. EDMS 21:52 Keyshawn Chan PA is PHCP. cp 21:52 Octavio Camacho MD is Attending Physician. cp 22:17 Richar Liao, ALEXANDRA is Primary Nurse. mr2 22:30 No provider procedures requiring assistance completed. mr2 22:30 Inserted saline lock: 20 gauge in right antecubital area, using aseptic technique. mr2 22:37 Arm band placed on. mr2 04/01 00:14 CT Chest For PE Angio In Process Unspecified. EDMS 01:17 COVID-19 (Coronavirus) Document "Date of Onset" if Symptomatic Sent. [facility] 01:48 Doni Ham is Hospitalizing Provider. cp Administered Medications: 03/31 22:17 Drug: fentaNYL (PF) 25 mcg Route: IVP; Site: right antecubital; mr2 04/01 00:02 Drug: fentaNYL (PF) 25 mcg Route: IVP; Site: right antecubital; mr2 02:10 Drug: ProTONIX (pantoprazole) 40 mg Route: IVP; Site: right antecubital; mr2 02:10 Drug: Lovenox (enoxaparin) 1 mg/kg Route: Sub-Q; Site: abdomen; mr2 02:10 Drug: fentaNYL (PF) 25 mcg Route: IVP; Site: right antecubital; mr2 Outcome: 01:50 Decision to Hospitalize by Provider. cp 05:22 Patient left the ED. em Signatures: Dispatcher [employer] EDMS Pankaj Parsons, RN RN em Keyshawn Chan PA PA cp Karol Ernst Bella RN RN [id number] Richar Liao RN RN mr2 Neisha Kunz RN RN sj1
--- NOTE | 2021-04-01 01:51 | EDPHYS ---
Physician Documentation [facility] Name: Martha Pradhan Age: 60 yrs Sex: Female : 1960 Arrival Date: 03/31/2021 Time: 19:54 Bed 12 Private MD: ED Physician Octavio Camacho HPI: 03/31 21:30 This 60 yrs old Female presents to ER via Ambulatory with complaints of PAIN cp ON RIBS. 21:30 The patient or guardian reports chest pain that is located primarily in the right lower cp lateral rib area. 21:30 Onset: last week, on Tuesday. The pain radiates to right back. Associated signs and cp symptoms: Pertinent negatives: abdominal pain, cough, diaphoresis, dizziness, lower extremity pain, lower extremity swelling, palpitations, shortness of breath, syncope. The chest pain is described as aching. Duration: The patient or guardian reports a single episode, that is still ongoing. Modifying factors: the symptoms are aggravated by deep breath, movement. Patient reports pain to right lower chest area. Denies any specific injury but reports noticing pain to area after leaning into dryer. Historical: - Allergies: 20:14 haloperidol lactate; sj1 20:14 hydroxyzine HCl; sj1 20:14 meloxicam; sj1 20:14 Lyrica; sj1 20:14 Ibuprofen; sj1 20:14 Naproxen; sj1 20:14 Naproxen Sodium; sj1 20:14 NSAIDS (Non-Steroidal Anti-Inflammatory Drug); sj1 20:14 Nubain; sj1 20:14 Risperdal; sj1 20:14 Vistaril; sj1 - PMHx: 20:14 ADD/ADHD; Anxiety; Arthritis; Back pain; Chronic pain; Irritable bowel syndrome; sj1 Osteoporosis; restless leg syndrome; Tachycardia; Ulcer; - Immunization history:: Client reports receiving the 2nd dose of the Covid vaccine. - Social history:: Smoking status: Patient/guardian denies using tobacco. ROS: 21:35 Constitutional: Negative for body aches, chills, fever. cp 21:35 Eyes: Negative for injury, pain, redness, and discharge. cp 21:35 ENT: Negative for ear pain, sore throat, difficulty swallowing, difficulty handling secretions. 21:35 Cardiovascular: Positive for chest pain, of the right lower lateral chest, Negative for edema, palpitations. 21:35 Respiratory: Negative for cough, wheezing. 21:35 Abdomen/GI: Negative for abdominal pain, nausea, vomiting, and diarrhea. 21:35 Back: Positive for radiated pain, of the right subscapular area. 21:35 : Negative for urinary symptoms. 21:35 Skin: Negative for rash. 21:35 Neuro: Negative for altered mental status, headache, syncope, weakness. 21:35 All other systems are negative. Exam: 21:40 Constitutional: The patient appears in no acute distress, alert, awake, cp non-diaphoretic, non-toxic, well developed, well nourished, uncomfortable. 21:40 Head/Face: Normocephalic, atraumatic. cp 21:40 Eyes: Periorbital structures: appear normal, Conjunctiva: normal, no exudate, no injection, Sclera: no appreciated abnormality, Lids and lashes: appear normal, bilaterally. 21:40 ENT: External ear(s): are unremarkable, Nose: is normal, Mouth: Lips: moist, Oral mucosa: moist, Posterior pharynx: Airway: no evidence of obstruction, patent. 21:40 Neck: ROM/movement: is normal, is supple, without pain, no range of motions limitations. 21:40 Chest/axilla: Inspection: normal, Palpation: is normal, no crepitus, no tenderness. 21:40 Cardiovascular: Rate: normal, Rhythm: regular, Edema: is not appreciated, JVD: is not appreciated. 21:40 Respiratory: the patient does not display signs of respiratory distress, Respirations: labored breathing, is not present, shallow respirations, that is mild, Breath sounds: decreased breath sounds, that are mild, throughout, stridor, is not appreciated, wheezing: is not appreciated. 21:40 Abdomen/GI: Inspection: abdomen appears normal, Bowel sounds: normal, in all quadrants, Palpation: abdomen is soft and non-tender, in all quadrants. 21:40 Back: pain, that is moderate, of the right subscapular area, ROM is normal. 21:40 Skin: cellulitis, is not appreciated, no rash present. 21:40 Neuro: Orientation: to person, place \\T\\ time. Mentation: is normal, Motor: moves all fours, strength is normal, Sensation: is normal. 22:07 ECG was reviewed by the Attending Physician. Vital Signs: 20:11 BP 122 / 60; Pulse 64; Resp 20; Temp 97.3; Pulse Ox 99% ; Weight 58.97 kg; Height 5 ft. sj1 0 in. (152.40 cm); Pain 9/10; 04/01 00:56 BP 117 / 66; Pulse 61; Resp 17; Temp 98.5; Pulse Ox 100% on R/A; Pain 4/10; mr2 03:25 BP 126 / 74; Pulse 66; Resp 18; Temp 98.5; Pulse Ox 98% on R/A; mr2 03/31 20:11 Body Mass Index 25.39 (58.97 kg, 152.40 cm) sj1 MDM: 03/31 21:59 Patient medically screened. cp 22:00 Differential diagnosis: abnormal EKG, acute myocardial infarction, acute pericarditis, cp cholecystitis, Cholelithiasis costochondritis, pancreatitis, pleurisy, pneumonia, pneumothorax, pulmonary embolus. 04/01 01:30 Physician consultation: Joseph Cummings MD was called at 01:30, was contacted at 01:30, regarding consult, patient's condition, and will see patient in inpatient room, tomorrow, requests starting Lovenox 1 mg/kg bid. 02:00 Data reviewed: vital signs, nurses notes, lab test result(s), EKG, radiologic studies, cp CT scan, plain films, and as a result, I will admit patient. 02:00 Test interpretation: by ED physician or midlevel provider: ECG, plain radiologic cp studies. Counseling: I had a detailed discussion with the patient and/or guardian regarding: the historical points, exam findings, and any diagnostic results supporting the discharge/admit diagnosis, lab results, radiology results. Response to treatment: the patient's symptoms have mildly improved after treatment. Physician consultation: Priyank WHEELER was called at 01:45, was contacted at 01:45, regarding admission, to the telemetry unit. patient's condition, and will see patient in ED, shortly. 03/31 21:26 Order name: Basic Metabolic Panel; Complete Time: 00:31 em 04/01 00:32 Interpretation: Normal except: CL 110; CO2 20; GFR 66. cp 03/31 21:26 Order name: CBC with Diff; Complete Time: 00:31 em 04/01 00:32 Interpretation: Normal except: HGB 11.6; HCT 35.1; MCV 87.9; PLT 715; RDW 21.4; cp EOSINOPHIL % 7.1; EOSA 0.6. 03/31 21:26 Order name: LFT's; Complete Time: 00:31 em 03/31 21:26 Order name: Magnesium; Complete Time: 00:31 em 03/31 21:26 Order name: NT PRO-BNP; Complete Time: 00:31 em 03/31 21:26 Order name: PT-INR; Complete Time: 00:31 em 03/31 20:46 Order name: Chest Pa And Lat (2 Views) XRAY; Complete Time: 00:31 em 03/31 21:26 Order name: Troponin (emerg Dept Use Only); Complete Time: 00:31 em 03/31 22:01 Order name: CT Chest For PE Angio; Complete Time: 21:57 cp 03/31 23:28 Order name: CBC Smear Scan; Complete Time: 00:31 EDMS 04/01 00:47 Order name: COVID-19 (Coronavirus) Document "Date of Onset" if Symptomatic em 04/01 01:35 Order name: SARS-COV-2 RT PCR; Complete Time: 21:57 EDMS 03/31 21:26 Order name: EKG; Complete Time: 21:27 em 03/31 21:26 Order name: Cardiac monitoring; Complete Time: : em 03/31 21:26 Order name: EKG - Nurse/Tech; Complete Time: : em 03/31 21:26 Order name: IV Saline Lock; Complete Time: em 03/31 21:26 Order name: Labs collected and sent; Complete Time: em 03/31 21:26 Order name: O2 Per Protocol; Complete Time: em 03/31 21:26 Order name: O2 Sat Monitoring; Complete Time: em 04/01 03:39 Order name: CONS Physician Consult EDMS EC/19 22:07 Rate is 63 beats/min. Rhythm is regular. WA interval is normal. QRS interval is normal. cp QT interval is normal. T waves are Inverted in lead aVR. Interpreted by me. Reviewed by me. Administered Medications: 22:17 Drug: fentaNYL (PF) 25 mcg Route: IVP; Site: right antecubital; mr2 04/01 00:02 Drug: fentaNYL (PF) 25 mcg Route: IVP; Site: right antecubital; mr2 02:10 Drug: ProTONIX (pantoprazole) 40 mg Route: IVP; Site: right antecubital; mr2 02:10 Drug: Lovenox (enoxaparin) 1 mg/kg Route: Sub-Q; Site: abdomen; mr2 02:10 Drug: fentaNYL (PF) 25 mcg Route: IVP; Site: right antecubital; mr2 Disposition: 07:30 Co-signature as Attending Physician, Octavio Camacho MD. [email or web address] Disposition Summary: 04/01/21 01:50 Hospitalization Ordered Provider: Doni Ham cp Location: Telemetry/MedSurg (observation) cp Condition: Stable cp Problem: new cp Symptoms: have improved cp Bed/Room Type: Standard cp Hospitalization Status: Inpatient Admission(04/01/21 01:54) cp Room Assignment: 220(04/01/21 03:44) eb1 Diagnosis - Other pulmonary embolism without acute cor pulmonale cp - Pleural effusion, not elsewhere classified cp Forms: - Medication Reconciliation Form cp - SBAR form cp Signatures: Dispatcher [employer] EDMS Pankaj Parsons, RN Keyshawn Oseguera PA PA cp Hollie Del Rio RN RN eb1 Octavio Camacho MD MD 7 Richar Liao RN RN mr2 Neisha Kunz RN RN sj1 Corrections: (The following items were deleted from the chart) 03/31 21:29 21:27 Chest Single View+RAD.RAD.BRZ ordered. EDMS EDMS 04/01 01:35 00:48 CORONAVIRUS ordered. EDMS EDMS 01:54 01:50 Observation cp cp 03:44 01:50 cp eb1
[2021-04-01] MEDS ORDERED: PANTOPRAZOLE 40 MG INJ ONE (02:34)
[2021-04-01] MEDS ORDERED: ENOXAPARIN 60 MG/0.6 ML SQ ONE (02:34)
[2021-04-01] MEDS ORDERED: ACETAMINOPHEN 500 MG TAB PO PRN (04:41)
[2021-04-01] MEDS ORDERED: SODIUM CHLORIDE 0.9% 10ML INJ IV PRN (04:41)
[2021-04-01] MEDS ORDERED: TRAMADOL 37.5mg/APAP 325mg PER TAB PO PRN (04:41)
[2021-04-01] MEDS ORDERED: ONDANSETRON 4 MG/2 ML VIAL IV PRN (04:41)
--- NOTE | 2021-04-01 05:29 | P.HP ---
Certification for Inpatient Patient admitted to: Observation With expected LOS: <2 Midnights Patient will require the following post-hospital care: None Practitioner: I am a practitioner with admitting privileges, knowledge of patient current condition, hospital course, and medical plan of care. Services: Services provided to patient in accordance with Admission requirements found in Title 42 Section 412.3 of the Code of Federal Regulations Patient History Date of Service: 04/01/21 Reason for admission: PE History of Present Illness: Ms. Pradhan is a 60 yo F with history of anemia, thrombocytosis, ulcers who presents with R lower chest pain and SOb beginning on Tuesday. Pain is worse with movement, relieved with ice and heat. She denies all other symptoms. She has been following with pulmonology for severe pneumonia and a mass on her lungs that resolved on repeat imaging. CTPE revealed a pulmonary embolism. She received full dose lovenox in the ED. H/H 11.6, plt 715. Allergies hydroxyzine HCl [From Vistaril] Allergy (Severe, Verified 06/16/20 13:03) Anaphylaxis hydroxyzine pamoate [From Vistaril] Allergy (Severe, Verified 06/16/20 13:03) Anaphylaxis nalbuphine HCl [From Nubain] Allergy (Severe, Verified 06/16/20 13:03) Anaphylaxis NSAIDS (Non-Steroidal Anti-Inflamma Allergy (Intermediate, Verified 06/16/20 13:03) Anaphylaxis haloperidol lactate [From Haldol] Allergy (Verified 06/16/20 13:03) Anaphylaxis ibuprofen [From Motrin] Allergy (Verified 06/16/20 13:03) Anaphylaxis naproxen [From Naprosyn] Allergy (Verified 06/16/20 13:03) Anaphylaxis naproxen sodium [From Aleve] Allergy (Verified 06/16/20 13:03) Anaphylaxis pregabalin [From Lyrica] Allergy (Verified 06/16/20 13:03) Anaphylaxis meloxicam [From Mobic] Adverse Reaction (Severe, Verified 06/16/20 13:03) Anaphylaxis hydroxyzine [From Vistaril] Adverse Reaction (Verified 06/16/20 13:03) muscle weakness Home Medications: Dicyclomine HCl 20 mg PO BID 11/06/19 Diphenhydramine [Benadryl*] 1 tab PO BID 05/26/20 Estrogens, Conjugated [Premarin] 1.25 mg PO DAILY 11/06/19 Lansoprazole 30 mg PO DAILY 11/06/19 Metoprolol Tartrate [Lopressor*] 50 mg PO TID 11/06/19 clonazePAM [Clonazepam] 1 mg PO BEDTIME 11/06/19 Duloxetine HCl [Cymbalta] 30 mg PO BEDTIME #30 cap 11/09/19 predniSONE [Prednisone*] 20 mg PO DAILY #5 tab 11/09/19 - Past Medical/Surgical History Diabetic: No -: ADD/ADHD -: chronic pain syndrome -: restless leg syndrome -: bone problems -: tachycardia -: myofascial syndrome -: anxiety -: PTSD -: arthritis -: feet fracture -: rib fracture -: clavicle sx-plate - Family History Father -: Cancer Notes: Parkinson's, lymph nodes Mother -: Hypertension Notes: hiatal hernia. hysterectomy - Social History Smoking Status: Never smoker Alcohol use: No CD- Drugs: No Caffeine use: Yes Place of Residence: Home Review of Systems 10-point ROS is otherwise unremarkable General: Unremarkable Eyes: Unremarkable ENT: Unremarkable Respiratory: Shortness of Breath, SOB with Excertion Cardiovascular: Chest Pain Gastrointestinal: Unremarkable Genitourinary: Unremarkable Musculoskeletal: Unremarkable Integumentary: Unremarkable Neurological: Unremarkable Lymphatics: Unremarkable Physical Examination - Physical Exam General: Alert, In no apparent distress HEENT: Atraumatic, PERRLA, Mucous membr. moist/pink, EOMI, Sclerae nonicteric Neck: Supple, 2+ carotid pulse no bruit, No LAD, Without JVD or thyroid abnormality Respiratory: Diminished Cardiovascular: Regular rate/rhythm, Normal S1 S2 Gastrointestinal: Normal bowel sounds, No tenderness Musculoskeletal: No tenderness Integumentary: No rashes Neurological: Normal speech, Normal strength at 5/5 x4 extr, Normal tone, Normal affect Lymphatics: No axilla or inguinal lymphadenopathy - Studies Laboratory Data (last 24 hrs) 03/31/21 22:45: PT 13.0 H, INR 1.13 03/31/21 22:45: WBC 7.90, Hgb 11.6 L, Hct 35.1 L, Plt Count 715 H 03/31/21 22:45: Sodium 140, Potassium 3.9, BUN 18, Creatinine 0.87, Glucose 87, Magnesium 1.9, Total Bilirubin 0.1 L, AST 25, ALT 37, Alkaline Phosphatase 190 H Assessment and Plan - Problems (Diagnosis) (1) Pulmonary embolism Current Visit: Yes Status: Acute Qualifiers: Pulmonary embolism type: unspecified Chronicity: acute Acute cor pulmonale presence: unspecified Qualified Code(s): I26.99 - Other pulmonary embolism without acute cor pulmonale (2) Anemia Current Visit: Yes Status: Chronic Qualifiers: Anemia type: unspecified type Qualified Code(s): D64.9 - Anemia, unspecified - Plan pulm consulted continue IV lovenox continue IV protonix monitor H/H, monitor for signs of bleeding reconcile and continue home medications Discharge Plan: Home Plan to discharge in: 24 Hours - Advance Directives Does patient have a Living Will: No Does patient have a Durable POA for Healthcare: No - Code Status/Comfort Care Code Status Assessed: Yes (full code ) Critical Care: No Time Spent Managing Pts Care (In Minutes): 70
[2021-04-01 05:56] LABS: Absolute Lymphocytes (CBC) 1.8 K/uL (0.7-4.9); Basophils % 1.4 % (0-1.3); Hematocrit 35.8 % (36.0-45.0); Lymphocytes % 19.4 % (15.3-44.8); MPV 7.5 fL (7.6-11.3); RBC Red Blood Cell Count 4.11 M/uL (3.86-4.86)
[2021-04-01 06:13] LABS: Albumin 3.6 g/dL (3.4-5.0); Bilirubin Total 0.2 mg/dL (0.2-1.0)
[2021-04-01 06:30] VITALS: BMI 25.4
[2021-04-01] MEDS ORDERED: HYDROCODONE/APAP 5/325 MG TAB PO PRN (08:02)
[2021-04-01 09:28] VITALS: O2SAT 98
--- NOTE | 2021-04-01 12:12 | P.CNS ---
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 bead picker some diagnosis next to her water cooler has some more to the right side of her chest from the spigot started complaining of intense pain worse with inspiration and it appeared in the emergency room T scan showed a possible defect in the left lung abrupt cut off possible luminary embolism though she denies any shortness of breath patient has a history of extensive pneumonia Allergies hydroxyzine HCl [From Vistaril] Allergy (Severe, Verified 06/16/20 13:03) Anaphylaxis hydroxyzine pamoate [From Vistaril] Allergy (Severe, Verified 06/16/20 13:03) Anaphylaxis nalbuphine HCl [From Nubain] Allergy (Severe, Verified 06/16/20 13:03) Anaphylaxis NSAIDS (Non-Steroidal Anti-Inflamma Allergy (Intermediate, Verified 06/16/20 13:03) Anaphylaxis haloperidol lactate [From Haldol] Allergy (Verified 06/16/20 13:03) Anaphylaxis ibuprofen [From Motrin] Allergy (Verified 06/16/20 13:03) Anaphylaxis naproxen [From Naprosyn] Allergy (Verified 06/16/20 13:03) Anaphylaxis naproxen sodium [From Aleve] Allergy (Verified 06/16/20 13:03) Anaphylaxis pregabalin [From Lyrica] Allergy (Verified 06/16/20 13:03) Anaphylaxis meloxicam [From Mobic] Adverse Reaction (Severe, Verified 06/16/20 13:03) Anaphylaxis hydroxyzine [From Vistaril] Adverse Reaction (Verified 06/16/20 13:03) muscle weakness Home Medications: Dicyclomine HCl 20 mg PO BID 11/06/19 Metoprolol Tartrate [Lopressor*] 50 mg PO BID 11/06/19 Alprazolam [Xanax] 0.5 mg PO BID 04/01/21 Dexlansoprazole [Dexilant] 60 mg PO DAILY 04/01/21 Dicyclomine [Bentyl*] 20 mg PO BID 04/01/21 Famotidine 40 mg PO DAILY 04/01/21 Fluoxetine HCl [Prozac] 2 tab PO DAILY 04/01/21 Hydrocodone 5/APAP 325 [[place] 5/325*] 1 tab PO Q6H PRN #15 tab 04/01/21 OLANZapine [Olanzapine] 0.5 mg PO BID 04/01/21 Rivaroxaban [Xarelto*] 15 mg PO BID 21 Days #42 tablet 04/01/21 - Past Medical/Surgical History Diabetic: No -: ADD/ADHD -: chronic pain syndrome -: restless leg syndrome -: bone problems -: tachycardia -: myofascial syndrome -: anxiety -: PTSD -: arthritis -: feet fracture -: rib fracture -: clavicle sx-plate - Family History Father Medical History: Cancer Notes: Parkinson's, lymph nodes Mother Medical History: Hypertension Notes: hiatal hernia. hysterectomy - Social History Smoking Status: Former smoker Alcohol use: No CD- Drugs: No Caffeine use: Yes Place of Residence: Home Review of Systems 10-point ROS is otherwise unremarkable Physical Examination Temp Pulse Resp BP Pulse Ox 97.0 F 94 H 16 117/62 93 04/01/21 08:00 04/01/21 08:00 04/01/21 08:00 04/01/21 08:00 04/01/21 08:00 General: Alert, Oriented x3 Neck: Supple, No Thyromegaly Cardiovascular: No edema, Regular rate/rhythm Musculoskeletal: No clubbing, No swelling Laboratory Data (last 24 hrs) 03/31/21 22:45: PT 13.0 H, INR 1.13 03/31/21 22:45: WBC 7.90, Hgb 11.6 L, Hct 35.1 L, Plt Count 715 H 03/31/21 22:45: Sodium 140, Potassium 3.9, BUN 18, Creatinine 0.87, Glucose 87, Magnesium 1.9, Total Bilirubin 0.1 L, AST 25, ALT 37, Alkaline Phosphatase 190 H - Problems (1) Abnormal CT scan of lung Current Visit: Yes Status: Acute Conclusions/Impression: Patient is 60 years of age admitted with some trauma to the right side of the chest complaining of intense pain with movement and inspiration however patient had a defect in the left side of the lung peripheral wedge-shaped defect mention of possible pulmonary embolism patient is high risk for anticoagulation due to history of bleeding gastric ulcers and anemia also has thrombocythemia recommend a VQ scan to rule out pulmonary embolism but D-dimer is elevated patient is high risk for anticoagulation vital signs and saturation satisfactory labs reviewed elevated alkaline phosphatase low clinical suspicion for pulmonary embolism
[2021-04-01 12:18] VITALS: BP 116/58; TEMP 97.9
[2021-04-01] MEDS ORDERED: ALPRAZOLAM 0.5 MG TABLET PO SCH (12:53)
[2021-04-01] MEDS ORDERED: HOME MED 1 EA UNK (Dexlansoprazole [Dexilant] 30 MG Cap.Dr.Bp) PO SCH (12:53)
[2021-04-01] MEDS ORDERED: FLUOXETINE 20 MG CAP PO SCH (12:54)
[2021-04-01] MEDS ORDERED: FAMOTIDINE 20 MG TAB PO SCH (12:54)
--- NOTE | 2021-04-01 13:12 | RAD REPORT ---
EXAM DESCRIPTION: NM - Vent Perfusion VQ Scan - 04/01/2021 12:34 pm CLINICAL HISTORY: Chest pain COMPARISON: CT chest March 31, 2021 TECHNIQUE: 19.7 Mci [id number] was administered by inhalation. First breath, equilibrium, and washout images of the lungs obtained 7.7 millicuries Technetium-99 MAA was administered intravenously. Anterior, posterior, lateral and ob lique views of the lungs were taken. FINDINGS: A moderate segmental defect on the perfusion sequences is present within the left lower lo be. This demonstrates normal radiotracer activity on ventilation sequences. The right lung demonstrates symmetric radiotracer activity on ventilation and perfusion sequences IMPRESSION: Moderate mismatched perfusion defect left lower lobe compatible with a pulmonary emboli sm
[2021-04-01] MEDS ORDERED: PANTOPRAZOLE 40 MG INJ IVP SCH (14:00)
[2021-04-01] MEDS ORDERED: ENOXAPARIN 60 MG/0.6 ML SQ SCH (14:00)
--- NOTE | 2021-04-01 14:21 | P.DS ---
Admission Date: 04/01/21 Discharge Date: 04/01/21 Disposition: ROUTINE DISCHARGE Discharge Condition: FAIR Reason for Admission: Right-sided chest pain - Problems (1) Pulmonary embolism Current Visit: Yes Status: Acute Qualifiers: Pulmonary embolism type: unspecified Chronicity: acute Acute cor pulmonale presence: unspecified Qualified Code(s): I26.99 - Other pulmonary embolism without acute cor pulmonale (2) Thrombocytosis Current Visit: Yes Status: Acute (3) Anemia Current Visit: Yes Status: Chronic Qualifiers: Anemia type: unspecified type Qualified Code(s): D64.9 - Anemia, unspecified (4) Chronic pain Current Visit: No Status: Chronic Qualifiers: Chronic pain type: chronic pain syndrome Qualified Code(s): G89.4 - Chronic pain syndrome Brief History of Present Illness: Ms. Pradhan is a 60 yo F with history of anemia, thrombocytosis, gastric ulcer presented with R lower chest pain and SOb beginning on Tuesday. Pain is worse with movement. Patient reported trauma from the edge of a washing machine which was pressing on her chest while trying to reach for a cloth. She has been following with pulmonology for severe pneumonia and a mass on her lungs that resolved on repeat imaging. CTPE revealed a pulmonary embolism. She received full dose lovenox in the ED. H/H 11.6, plt 715. Patient hospitalized for further management. Hospital Course: Patient treated with full-dose Lovenox. She was seen by pulmonary who recommended V/Q scan to confirm pulmonary embolus. V/Q scan demonstrated perfusion defect consistent with PE. Her hemoglobin was stable at 11. COVID test negative. Patient not requiring oxygen. She is stable for discharge. She is prescribed Xarelto for treatment of thromboembolism. She will follow with Hematology Oncology as an outpatient regarding thrombocytosis and also her PCP for further treatment of the pulmonary embolism. Vital Signs/Physical Exam: Temp Pulse Resp BP Pulse Ox 97.9 F 84 18 116/58 L 95 04/01/21 12:00 04/01/21 12:00 04/01/21 12:00 04/01/21 12:00 04/01/21 12:00 General: Alert, In no apparent distress, Oriented x3 HEENT: Mucous membr. moist/pink Neck: JVD not distended Respiratory: Clear to auscultation bilaterally, Normal air movement Cardiovascular: No edema, Regular rate/rhythm, Normal S1 S2 Gastrointestinal: Soft and benign, Non-distended, No tenderness Musculoskeletal: No swelling, Tenderness (Right anterior lower rib area) Integumentary: No rashes, No erythema Neurological: Normal strength at 5/5 x4 extr Laboratory Data at Discharge: WBC 9.40 K/uL (4.3-10.9) D 04/01/21 05:31 Hgb 11.9 g/dL (12.0-15.0) L 04/01/21 05:31 Hct 35.8 % (36.0-45.0) L 04/01/21 05:31 Plt Count 695 K/uL (152-406) H 04/01/21 05:31 PT 13.0 SECONDS (9.5-12.5) H 03/31/21 22:45 INR 1.13 03/31/21 22:45 Sodium 139 mmol/L (136-145) 04/01/21 05:31 Potassium 4.0 mmol/L (3.5-5.1) 04/01/21 05:31 BUN 16 mg/dL (7-18) 04/01/21 05:31 Creatinine 0.85 mg/dL (0.55-1.3) 04/01/21 05:31 Glucose 118 mg/dL (74-106) H 04/01/21 05:31 Magnesium 1.9 mg/dL (1.8-2.4) 03/31/21 22:45 Total Bilirubin 0.2 mg/dL (0.2-1.0) 04/01/21 05:31 AST 20 U/L (15-37) 04/01/21 05:31 ALT 36 U/L (12-78) 04/01/21 05:31 Alkaline Phosphatase 199 U/L (45-117) H 04/01/21 05:31 Home Medications: Dicyclomine HCl 20 mg PO BID 11/06/19 Metoprolol Tartrate [Lopressor*] 50 mg PO BID 11/06/19 Alprazolam [Xanax] 0.5 mg PO BID 04/01/21 Dexlansoprazole [Dexilant] 60 mg PO DAILY 04/01/21 Dicyclomine [Bentyl*] 20 mg PO BID 04/01/21 Famotidine 40 mg PO DAILY 04/01/21 Fluoxetine HCl [Prozac] 2 tab PO DAILY 04/01/21 Hydrocodone 5/APAP 325 [Texline 5/325*] 1 tab PO Q6H PRN #15 tab 04/01/21 OLANZapine [Olanzapine] 0.5 mg PO BID 04/01/21 Rivaroxaban [Xarelto*] 15 mg PO BID 21 Days #42 tablet 04/01/21 New Medications: Hydrocodone 5/APAP 325 [Texline 5/325*] 1 tab PO Q6H PRN #15 tab PRN Reason: Pain Scale 5-7 (Moderate) Rivaroxaban [Xarelto*] 15 mg PO BID 21 Days #42 tablet Diet: AHA Activity: Ad rob Followup: Joseph Cummings MD [ACTIVE - CAN ADMIT] - Nirmal Hancock DO [Primary Care Provider] - 1-2 Weeks Time spent managing pt's care (in minutes): 37
--- NOTE | 2021-04-01 17:46 | RAD REPORT ---
EXAM DESCRIPTION: CT - Chest For Pe Angio - 04/01/2021 6:53 am ADDENDUM #1 Urgent finding reported to Keyshawn WHEELER at 04/01/2021 12: 45 AM CDT Electronically signed by: Emory Brennan 04/01/2021 1:12 AM CDT End of Addendum EXAM DESCRIPTION: Chest For Pe Angio CLINICAL HISTORY: CHEST PAIN COMPARISON: 12/05/2020 TECHNIQUE: CTA of the chest obtained following the uncomplicated intravenous administration of iodin ated contrast. 3-D/MIP reformatted images of the chest available for evaluation. This exam was perfor med according to our departmental dose-optimization program, which includes automated exposure contro l, adjustment of the mA and/or kV according to patient size and/or use of iterative reconstruction te chnique. FINDINGS: Chest: Pulmonary arteries: Contrast bolus is adequate. Abrupt cut off of the left anterior basilar segmental pulmonary artery may represent acute or subacute pulmonary embolus. No other pulmonary emboli identi fied. Thyroid: No abnormalities of the visualized thyroid. Great Vessels: Great vessels have normal anatomic configuration. Thoracic Aorta: Atherosclerotic calcification of thoracic aorta. Heart: No cardiomegaly, significant pericardial effusion, or coronary artery atherosclerosis no right heart strain. Lymph Nodes: No enlarged mediastinal lymph nodes identified. Esophagus: Large hiatal hernia. Other: No additional findings. Lungs: Centrilobular emphysematous change. Pleural-based airspace consolidation Pleura: Small left pleural effusion. Minimal right basilar dependent atelectasis. Trachea/Airways: No abnormalities of the visualized trachea or airways. Bones: Multilevel healed posterior right rib fractures. Upper Abdomen: Limited images of the upper abdomen demonstrate no definite abnormalities of visualize d portions of the liver, pancreas, spleen, adrenal glands, or kidneys. IMPRESSION: 1. Abrupt cut off of the left anterior basilar segmental pulmonary artery may represen t acute or subacute pulmonary embolus. No other pulmonary emboli identified. Small clot burden. No ri ght heart strain. 2. Small left pleural effusion with left peripheral basilar airspace consolidation abutting the ple ura may represent small pulmonary infarction or developing pneumonic process. 3. Centrilobular emphysematous change. 4. Large hiatal hernia. Electronically signed by: Emory Brennan 04/01/2021 12:41 AM CDT Due to temporary technical issues with the PACS/Fluency reporting system, reports are being signed by the in house radiologists without review as a courtesy to insure prompt reporting. The interpreting radiologist is fully responsible for the content of the report.
[2021-04-01] MEDS ORDERED: RIVAROXABAN 15 MG TABLET PO SCH (21:00)
[2021-04-01] MEDS ORDERED: DICYCLOMINE HCL 10 MG CAP PO SCH (21:00)
[2021-04-01] MEDS ORDERED: HOME MED 1 EA UNK (Olanzapine [Olanzapine] 5 MG Tablet) PO SCH (21:00)
[2021-04-01] MEDS ORDERED: METOPROLOL TAR 50 MG TAB PO SCH (21:00)
== END 2021-04-01 15:41 | disposition home or self-care (01) ==
LOC: ER 19:50 → INTOOBSV 04-01 03:42 → ERHOLD 04-01 03:42 → 2ND 04-01 04:38
PROVIDERS: ADMIT Internal Medicine; ATTEND Internal Medicine
DX: I26.99 Other pulmonary embolism without acute cor pulmonale (principal); D64.9 Anemia, unspecified; D75.839 Thrombocytosis, unspecified; G89.4 Chronic pain syndrome; K25.9 Gastric ulcer, unspecified as acute or chronic, without hemorrhage or perforation; F90.9 Attention-deficit hyperactivity disorder, unspecified type; G25.81 Restless legs syndrome; F41.9 Anxiety disorder, unspecified; F43.10 Post-traumatic stress disorder, unspecified; M19.90 Unspecified osteoarthritis, unspecified site; R00.0 Tachycardia, unspecified; Z20.822 Contact with and (suspected) exposure to COVID-19; Z87.01 Personal history of pneumonia (recurrent); Z88.8 Allergy status to other drugs, medicaments and biological substances; Z88.6 Allergy status to analgesic agent; Z87.891 Personal history of nicotine dependence; Z80.9 Family history of malignant neoplasm, unspecified; Z82.49 Family history of ischemic heart disease and other diseases of the circulatory system
CPT/HCPCS: 93005; 85025 ×2; 80048; 36415; 83735; 85610; 85379; 80076; 84484; 80053; 83880; 71275; 71046; 94760 ×2; 78582; 96375; 96372; 96374; 99284; U0003; Q9967; C9113 ×3; J3010 ×2; J1650; J2405; A9558; A9540; G0378 ×2

== ENCOUNTER 2021-04-27 09:57 | Emergency (ER) | payer OTHER ==
--- OUTSIDE RECORDS SUMMARY | 2021-04-27 10:00 | XMS REPORT | Continuity of Care Document ---
:1960 Author Organization [facility] t Address [address] [place] [address] [address]. [address] [place] [address] Care Team Providers Name Role Phone MARIA ALEJANDRA Attending Clinician Unavailable Maria Alejandra TEE Attending Clinician Doctor Unassigned, Name Attending Clinician Unavailable Only, Test Attending Clinician Unavailable ANDREW Attending Clinician Unavailable RIP NASH Attending Clinician Unavailable RIP NASH Attending Clinician Unavailable MARIA ALEJANDRA Admitting Clinician Unavailable Maria Alejandra TEE Admitting Clinician Payers Payer Name Policy Type Policy Number Effective Date Expiration Date S shawn [facility] DUAL [id number] 2020 COMP HMO D SNP 00:00:00 [place] [id number] 2020 00:00:00 [facility] STAR [id number] 2013 PLUS 00:00:00 Problems This patient has no known problems. Allergies, Adverse Reactions, Alerts Allergy Allergy Status Severity Reaction(s) Onset Inactive Treating Comm ents Source Name Type Date Date Clinician HALOPERI DRUG Active Anaphylaxis Uni vers DOL INGREDI 2-04 ity of LACTATE 00:00: [place] 00 [facility] ETODOLAC DRUG Active Anaphylaxis Uni vers INGREDI 2-04 ity of 00:00: [address] PREGABAL DRUG Active Hallucinates 2014-06 Un raffi IN INGREDI 08-10 ity of 00:00: [place] 00 [facility] MELOXICA DRUG Active Other-Cmnt 2014-06 Univ ers M INGREDI 2- ity of 00:00: [place] 00 [facility] NSAIDS Drug Active Anaphylaxis 2014-06 Unive rs (NON-JUAN DAVID Class 2-23 ity of ROIDAL 00:00: [place] ANTI-INF 00 [facility] LAMMATOR Branch Y DRUG) NALBUPHI DRUG Active Anaphylaxis 2014-06 Uni vers NE HCL INGREDI 2- ity of 00:00: [place] 00 [facility] VISTARIL DRUG Active EP Effects 2014-06 Univ ers IM (HCL 2- ity of SALT) 00:00: [place] 00 [facility] Lodine Adverse Active throat [facility] Vistaril Adverse Active seizure [facility] Nubain Adverse Active throat [facility] Mobic Adverse Active seizure [facility] Lyrica Adverse Active throat [facility] Ibuprofe Adverse Active throat [facility] Haldol Adverse Active throat [facility] Medications Ordered Filled Start Stop Current Ordering Indication Dosage Frequency Signature Comments Components Source Medication Medication Date Date Medication? Clinician (SIG) Name Name Premarin Premarin Yes Nirmal [address] [facility] Hydrochloro Hydrochloro Yes Nirmal [address] [facility] thiazide thiazide [place] in the [facility] Adderall Adderall Yes Nirmal [address] [facility] Lansoprazol Lansoprazol Yes Nirmal [address] [facility] Clonazepam Clonazepam Yes Nirmal [address] [facility] Duloxetine Duloxetine Yes Nirmal TK ONE C [facility] HCl HCl [facility] PO BID [facility] Metoprolol Metoprolol Yes Nirmal [address] [facility] Tartrate Tartrate [place] with food [facility] Dicyclomine Dicyclomine Yes Nimral TAKE [address] [facility] HCl HCl [place] TABLET BY [facility] TWICE l DAILY Outpati NEEDED ent Clinics Procedures This patient has no known procedures. Encounters Start End Encounter Admission Attending Care Care Encounter Source Date/Time Date/Time Type Type Clinicians Facility Department ID 2021-04-13 Outpatient Azam [facility]ESS [facility] [id number] Univers 11:39:26 [facility] 2021-04-12 [id number] Univers 23:35:55 [facility] 2021-04-11 Outpatient Azam [facility] [id number] Univers 21:31:44 [facility] 2021-04-07 2021-04-07 Outpatient [facility] [id number] [facility] 2021-04-02 2021-04-02 Out[facility] [id number] [facility] 2021-03-26 2021-03-26 Out[facility] [id number] [facility] 2021-03-03 2021-03-03 Out[facility] [id number] [facility] 2021-02-27 2021-02-27 Out[facility] [id number] [facility] 2021-02-25 2021-02-25 [id number] 2021-01-21 2021-01-21 [facility] [id number] [facility] 2021-01-19 2021-01-19 Outpatient [facility] [id number] [facility] 2021-01-16 2021-01-16 Outpatient [facility] [id number] Univers 11:30:00 11:30:00 [id number] [facility] 2021-01-16 2021-01-16 Outpatient R [facility] [id number] Univers 11:30:00 11:30:00 [facility] 2021-01-14 2021-01-14 Outpatient R [facility] [id number] Univers 08:50:00 08:50:00 [id number] [facility] 2021-01-13 2021-01-13 Outpatient R [facility] [id number] Univers 07:25:00 07:25:00 [id number] [facility] 2020-12-24 2020-12-24 [facility] [id number] [facility] 2020-12-24 2020-12-24 Out[facility] [id number] [facility] 2020-12-24 2020-12-24 [facility] [id number] [facility] 2020-12-19 2020-12-19 [facility] [id number] [facility] 2020-12-18 2020-12-18 Outpatient [facility] [id number] [facility] 2020-11-25 2020-11-25 [facility] [id number] 09:18:00 13:13:00 Encounter [facility] [id number] Clear [id number] Jarvis [id number] [place] [address] ([facility]) 2020-11-25 2020-11-25 Surgery [facility] [id number] 11:00:00 12:14:00 Health [id number] Clear 4.2.7.2.686 Jarvis [id number] Hospital 020 ([facility]) 2020-11-25 2020-11-25 Orders Doctor RAY [id number] 00:00:00 00:00:00 Only Unassigned, SUSHILA [id number] [facility] 4.2.7.2.686 [id number] 2020-11-25 2020-11-25 Prep For RAY Bess [id number] 00:00:00 00:00:00 Surgery Nivia CONTI [id number] [facility] [id number] [id number] 2020-11-25 2020-11-25 Refill Maria Alejandra, [facility] [id number] 00:00:00 00:00:00 [facility] [id number] Clear 4.2.7.2.686 Jarvis [id number] Hospital 049 ([facility]) 2020-11-25 2020-11-25 Refill Maria Alejandra [facility] [id number] 00:00:00 00:00:00 [facility] [id number] Clear 4.2.7.2.686 Jarvis [id number] Hospital 049 ([facility]) 2020-11-24 2020-11-24 Outpatient R [facility] [id number] Univers 07:55:00 07:55:00 [id number] [facility] 2020-11-21 2020-11-21 Outpatient R [facility] [id number] Univers 12:15:00 12:15:00 [id number] [facility] 2020-11-19 2020-11-19 Outpatient R [facility] [id number] Univers 13:30:00 13:30:00 [id number] [facility] 2020-11-14 2020-11-14 Outpatient [facility] [id number] [facility] 2020-11-12 2020-11-12 [facility] [id number] [facility] 2020-11-03 2020-11-03 Prep For RAY Bess [id number] 00:00:00 00:00:00 Surgery Nivia SUSHILA [id number] [place] [id number] 2020-10-31 2020-10-31 Telephone MESHA Bess [id number] 00:00:00 00:00:00 Nivia SHAFFER 350.1.13.10 [facility].2.7.2.686 CENTER AT [id number] [place] [address] [place] 2020-10-24 2020-10-24 [facility] [id number] [facility] 2020-10-15 2020-10-15 [facility] [id number] [facility] 00:00:00 [facility] l Outpati ent Clinics 2020-07-23 2020-07-23 Laboratory Only, Adc [facility] [id number] 11:51:15 12:06:15 Only Test [place] 350.1.13.10 [place] 4.2.7.2.686 [place] [id number] 2020-07-23 2020-07-23 Outpatient [facility] [id number] Univers 11:00:00 11:00:00 [id number] [facility] 2020-07-23 2020-07-23 Outpatient R [facility] [id number] Univers 11:00:00 11:00:00 [facility] 2020-07-23 2020-07-23 Orders Doctor BELL [id number] [id number] 00:00:00 00:00:00 Only Unassigned, SUSHILA 350.1.13.10 [employer] [place] [id number] 2020-07-21 2020-07-21 Outpatient R [facility] [id number] Univers 08:35:00 08:35:00 [id number] [facility] 2020-07-18 2020-07-18 Outpatient R [facility] [id number] Univers 07:25:00 07:25:00 [id number] [facility] 2020-07-18 2020-07-18 Outpatient [facility] [id number] [facility] 2020-07-17 2020-07-17 Outpatient R [facility] [id number] Univers 08:35:00 08:35:00 [facility] 2020-07-15 2020-07-15 Office [facility] [id number] 13:45:51 14:15:51 Visit [place] [id number] [facility] 4.2.7.2.686 OV[place] AT [id number] MARYSOL ROMAN 2020-07-15 2020-07-15 [facility] [id number] Univers 13:45:00 13:45:00 NIVIA [id number] [facility] 2020-07-15 2020-07-15 [facility] [id number] Univers 13:45:00 13:45:00 [facility] 2020-06-18 2020-06-18 Outpatient [facility] [id number] [facility] 2020-06-17 2020-06-17 Outpatient R ANDREW [facility] [id number] Univers 08:30:00 08:30:00 JOE [id number] aisha jarrett [facility] 2020-06-17 2020-06-17 Outpatient R ANDREW [facility] [id number] Univers 08:30:00 08:30:00 JOE jarrett [facility] 2020-06-09 2020-06-09 Outpatient R [facility] [id number] Univers 09:00:00 09:00:00 [facility] 2020-06-09 2020-06-09 Outpatient R [facility] [id number] Univers 08:00:00 08:00:00 [id number] [facility] 2020-05-15 Out[facility] [id number] [facility] 2020-05-13 2020-05-13 [facility] [id number] Univers 09:00:00 09:00:00 JOE ingelisseth jarrett [facility] 2020-05-13 2020-05-13 [facility] [id number] Univers 09:00:00 09:00:00 JOE jarrett juliana [facility] 2020-04-17 2020-04-17 Outpatient [facility] [id number] [facility] 2020-04-11 2020-04-11 Outpatient [facility] [id number] [facility] 2020-04-08 2020-04-08 Outpatient [facility] [id number] [facility] 2020-03-20 2020-03-20 Outpatient [facility] [id number] [facility] 2019-12-19 2019-12-19 [facility] [id number] 10:45:00 10:45:[address] - [address] Family [facility] Family [facility] l Medicine Outpati ent Clinics 2019-12-19 2019-12-19 [facility] [id number] 10:00:00 10:00:[address] - Drive Family [facility] Family Medicine l Medicine Outpati ent Clinics 2019-12-03 2019-12-03 [facility] [id number] 10:17:00 10:17:00 t [place] [facility] Out[facility] Clinics 2019-12-03 2019-12-03 [facility] [id number] 09:59:00 09:59:00 t [place] [employer] - Drive [facility] Medicine l Medicine Outpati ent Clinics 2019-11-29 2019-11-29 [facility] [id number] 09:45:00 09:45:[address] [place] [employer] [facility] Medicine l Medicine Outpati ent Clinics 2019-11-13 2019-11-13 [facility] [id number] 11:17:00 11:17:00 t [facility] [address] [facility] l Medicine Outpati ent Clinics 2019-11-06 2019-11-06 [facility] [id number] 15:08:00 15:08:[address] [place] [employer] [facility] Medicine Outpati ent Clinics 2019-11-01 2019-11-01 [facility] [id number] 16:03:00 16:03:[address] [place] [employer] [facility] Medicine l Medicine Outpati ent Clinics 2019-10-31 2019-10-31 [facility] [id number] 09:15:00 09:15:[address] [place] [employer] [facility] l Medicine Outpati ent Clinics 2019-10-01 2019-10-01 [facility] [id number] 10:00:00 10:00:00 t [place] [employer] [facility] [place] [employer] [facility] Medicine l Medicine Outpati ent Clinics 2019-08-27 2019-08-27 [facility] [id number] 14:00:00 14:00:00 t [place] [employer] [facility] [employer] [facility] l Medicine Outpati ent Clinics 2019-07-30 2019-07-30 [facility] [id number] 11:00:00 11:00:[address] [employer] [facility] l Medicine Outpati ent Clinics 2019-07-03 2019-07-03 Outpatient SHERWIN MADRIGAL [facility] [id number] Univers 00:00:00 00:00:00 SHERWIN NASH [id number] [facility] Results This patient has no known results.
[2021-04-27 10:47] LABS: Absolute Lymphocytes (CBC) 1.5 K/uL (0.7-4.9); Basophils % 1.3 % (0-1.3); Hematocrit 28.5 % (36.0-45.0); MPV 7.5 fL (7.6-11.3)
[2021-04-27 10:48] LABS: Protime INR 1.65
[2021-04-27 11:11] LABS: ALT/SGPT 47 U/L (12-78); AST/SGOT 42 U/L (15-37); Albumin 3.4 g/dL (3.4-5.0); Alkaline Phosphatase 146 U/L (45-117); BUN Blood Urea Nitrogen 42 mg/dL (7-18); Bicarbonate 22 mmol/L (21-32); Bilirubin Direct < 0.1 mg/dL (0-0.2); Bilirubin Total 0.1 mg/dL (0.2-1.0); Glucose Level 94 mg/dL (74-106); NT PRO-BNP 955 pg/mL (<125); Potassium 4.2 mmol/L (3.5-5.1); Protein, Total 7.5 g/dL (6.4-8.2); Sodium Level 141 mmol/L (136-145); Troponin (Emerg Dept Use Only) < 0.02 ng/mL (0.0-0.045)
--- NOTE | 2021-04-27 11:33 | RAD REPORT ---
EXAM DESCRIPTION: RAD - Chest Single View - 04/27/2021 10:39 am CLINICAL HISTORY: SOB COMPARISON: Chest Pa And Lat (2 Views) dated 03/31/2021; Chest Pa And Lat (2 Views) dated 03/24/2021 ; Chest Pa And Lat (2 Views) dated 02/11/2021; Chest Single View dated 12/05/2020 FINDINGS: Lines: None. Lungs: Mild improved aeration of the left lung base with only minimal residual opacities. Pleural: No significant pleural effusions or pneumothorax. Cardiac: The heart size is within normal limits. Bones: No acute fractures. Reconstruction plate at the left clavicle. Other: IMPRESSION: Improved aeration of left lung base with minimal residual airspace disease. No new super imposed acute process.
[2021-04-27] MEDS ORDERED: MORPHINE 2 MG/ML SYR ONE (11:48)
[2021-04-27] MEDS ORDERED: ONDANSETRON 4 MG/2 ML VIAL ONE (11:48)
--- NOTE | 2021-04-27 12:29 | RAD REPORT ---
EXAM DESCRIPTION: CT - Chest For Pe Angio - 04/27/2021 12:06 pm CLINICAL HISTORY: CHEST PAIN COMPARISON: Chest For Pe Angio dated 03/31/2021; Thorax Wo Con dated 12/05/2020; Chest Abd Pelvis Wo Con dated 11/06/2019; Chest Single View dated 04/27/2021 FINDINGS: Chest Wall: No suspicious thyroid nodules or pathologic lymphadenopathy. Lungs: Subpleural wedge-shaped nodularity in the left lower lobe is grossly similar to 04/01/2021. No suspicious pulmonary nodules. No new acute findings are seen. Pleura: No significant effusions or pneumothorax. Mediastinum/solange: No pathologic lymphadenopathy. Moderate hiatal hernia. Pulmonary arteries/Aorta: Segmental size left lower lobe pulmonary embolus the vessel occlusion is ag ain identified in left lower lobe. No aortic aneurysm. Heart: No significant pericardial effusion. Mild cardiomegaly. Upper abdomen: No acute abnormality. Bones: No acute abnormality. All CT scans are performed using dose optimization technique as appropriate and may include automated exposure control or mA/KV adjustment according to patient size. IMPRESSION: Segmental size pulmonary embolism left lower lobe is again identified. No new pulmonary emboli. Suspected subacute left lower lobe pulmonary infarcts are unchanged in size since 03/31/2021.
--- NOTE | 2021-04-27 14:07 | ER ---
Nurse's Notes [facility] Name: Martha Pradhan Age: 60 yrs Sex: Female : 1960 Arrival Date: 04/27/2021 Time: 10:00 Bed 13 Private MD: Nirmal Hancock Diagnosis: Acute upper respiratory infection, unspecified;Chest pain, unspecified Presentation: 04/27 10:02 Chief complaint: Patient states: i was here on Apr 01 around that time. i have a tw2 blood clot on my lungs and this morning. i woke up with runny nose and pressure on my chest. the pressure on my chest started this morning. i was around my grand daughter and wiping her nose. Dr. Hancock told me to come up here after i called. i checked my oxygen and it was good. Coronavirus screen: cough unrelated to allergies, runny nose, sore throat, Client presents with at least one sign or symptom that may indicate coronavirus-19. Standard/surgical mask placed on the client. Provider contacted for isolation considerations. Ebola Screen: Patient denies travel to an Ebola-affected area in the 21 days before illness onset. Initial Sepsis Screen: Does the patient meet any 2 criteria? No. Patient's initial sepsis screen is negative. Does the patient have a suspected source of infection? No. Patient's initial sepsis screen is negative. Risk Assessment: Do you want to hurt yourself or someone else? Patient reports no desire to harm self or others. Onset of symptoms was April 27, 2021. 10:02 Method Of Arrival: Ambulatory tw2 10:02 Acuity: ROSALBA 3 tw2 Triage Assessment: 10:07 General: Appears in no apparent distress. Behavior is calm, cooperative, appropriate tw2 for age. Pain: Complains of pain in chest. Cardiovascular: Reports "chest pressure". Historical: - Allergies: 10:03 haloperidol lactate; tw2 10:03 hydroxyzine HCl; tw2 10:03 Hydroxyzine Pamoate; tw2 10:03 Ibuprofen; tw2 10:03 Lyrica; tw2 10:03 meloxicam; tw2 10:03 nalbuphine HCl; tw2 10:03 Naproxen; tw2 10:03 NSAIDS (Non-Steroidal Anti-Inflammatory Drug); tw2 10:03 Nubain; tw2 10:03 Risperdal; tw2 10:03 Vistaril; tw2 - Home Meds: 10:03 Bentyl 20 mg Oral tab 1 tab 3 times per day [Active]; Xanax 0.5 mg Oral tab 1 tab twice tw2 a day [Active]; metoprolol tartrate 50 mg Oral tab 1 tab 3 times per day [Active]; - PMHx: 10:03 ADD/ADHD; Anxiety; Arthritis; Back pain; Chronic pain; Irritable bowel syndrome; tw2 Osteoporosis; restless leg syndrome; Tachycardia; ULCER; PE; bleeding ulcers; GERD; - PSHx: 10:03 Appendectomy; hysterectomy; left clavicle repair; tw2 - Immunization history:: Client reports receiving the 2nd dose of the Covid vaccine, Flu vaccine is up to date. - Social history:: Smoking status: Patient/guardian denies using tobacco, the patient reports quitting approximately 09 years ago. Screenin:35 Abuse screen: Denies threats or abuse. Denies injuries from another. Nutritional jt3 screening: No deficits noted. Tuberculosis screening: No symptoms or risk factors identified. Fall Risk None identified. Assessment: 10:35 General: Appears in no apparent distress. Behavior is calm, cooperative. Pain: jt3 Complains of pain in chest Pain does not radiate. Pain currently is 4 out of 10 on a pain scale. Quality of pain is described as pressure, Pain began 2-3 days ago. Is. Neuro: No deficits noted. Cardiovascular: Reports shortness of breath, Heart tones S1 S2 Rhythm is sinus rhythm. Respiratory: Reports shortness of breath on exertion. GI: No deficits noted. 13:19 Reassessment: Patient states feeling better. Patient states symptoms have improved. jt3 14:49 Reassessment: No changes from previously documented assessment. jt3 Vital Signs: 10:02 BP 108 / 75 LA; Pulse 84; Resp 17; Temp 97.6(TE); Pulse Ox 100% on R/A; tw2 10:02 BP 90 / 78 RA; tw2 13:19 BP 111 / 51; Pulse 71; Resp 17; Pulse Ox 100% on R/A; jt3 14:48 BP 105 / 56; Pulse 74; Resp 17; Pulse Ox 100% on R/A; jt3 ED Course: 10:00 Patient arrived in ED. mr 10:00 Nirmal Hancock DO is Private Physician. mr 10:03 Triage completed. tw2 10:06 Arm band placed on. tw2 10:08 Mark Mcbride, ALEXANDRA is Primary Nurse. jt3 10:08 Parker Garg PA is PHCP. jmm 10:08 Bryon Rivera MD is Attending Physician. [facility] 10:32 COVID-19 SARS RT PCR (Document "Date of Onset" if Symptomatic) Sent. 5 10:32 EKG done, by ED staff, reviewed by Parker WHEELER. mh5 10:33 Patient has correct armband on for positive identification. Placed in gown. Bed in low mh5 position. Call light in reach. Side rails up X 1. Warm blanket given. pvc monitor on. Pulse ox on. NIBP on. 10:35 No provider procedures requiring assistance completed. Inserted saline lock: 20 gauge jt3 in right antecubital area, using aseptic technique. Patient maintains SpO2 saturation greater than 95% on room air. 10:39 XRAY Chest (1 view) In Process Unspecified. EDMS 11:40 IV discontinued, intact, bleeding controlled, No redness/swelling at site. Pressure jt3 dressing applied. 11:40 Inserted saline lock: 20 gauge in left forearm, using aseptic technique. jt3 12:06 CT Chest For PE Angio In Process Unspecified. EDMS 14:05 Nirmal Hancock DO is Referral Physician. m 14:49 IV discontinued, intact, bleeding controlled, No redness/swelling at site. Pressure jt3 dressing applied. Administered Medications: 11:55 Drug: morphine 2 mg Route: IVP; Site: left forearm; jt3 13:19 Follow up: Response: No adverse reaction; Pain is decreased jt3 11:55 Drug: Zofran (Ondansetron) 4 mg Route: IVP; Site: left forearm; jt3 13:19 Follow up: Response: No adverse reaction jt3 Outcome: 14:06 Discharge ordered by . jmm 14:58 Discharged to home ambulatory. jt3 14:58 Condition: stable 14:58 Discharge instructions given to patient, Instructed on discharge instructions, follow up and referral plans. 14:59 Patient left the ED. jt3 Signatures: Dispatcher [employer] EDMS Parker Garg PA PA jmm Rivera, Mary Maureen Prakash, RN RN tw2 Camille Andrew 5 Mark Mcbride, RN RN jt3
--- NOTE | 2021-04-27 14:07 | EDPHYS ---
Physician Documentation [facility] Name: Martha Pradhan Age: 60 yrs Sex: Female : 1960 Arrival Date: 04/27/2021 Time: 10:00 Bed 13 Private MD: Nirmal Hancock ED Physician Broyn Rivera HPI: 04/27 10:22 This 60 yrs old Female presents to ER via Ambulatory with complaints of Chest jmm Pressure. 10:22 The patient or guardian reports cough, described as mild. Onset: The symptoms/episode jmm began/occurred gradually, today. Modifying factors: The symptoms are alleviated by changing position, the symptoms are aggravated by nothing. Associated signs and symptoms: Pertinent negatives: fever. This is a 60-year-old female with a history of anxiety, ADHD, recent PE that presents emerged department with complaints of substernal chest pressure along with congestion and cough. Patient states she believes her grandchild probably gave her some type of infection. Patient notified her PCP was advised to go to the ED due to the underlying pulmonary embolism. Patient states she is taken her Xarelto as directed but has missed about 3 doses in the past few weeks.. Historical: - Allergies: 10:03 haloperidol lactate; tw2 10:03 hydroxyzine HCl; tw2 10:03 Hydroxyzine Pamoate; tw2 10:03 Ibuprofen; tw2 10:03 Lyrica; tw2 10:03 meloxicam; tw2 10:03 nalbuphine HCl; tw2 10:03 Naproxen; tw2 10:03 NSAIDS (Non-Steroidal Anti-Inflammatory Drug); tw2 10:03 Nubain; tw2 10:03 Risperdal; tw2 10:03 Vistaril; tw2 - Home Meds: 10:03 Bentyl 20 mg Oral tab 1 tab 3 times per day [Active]; Xanax 0.5 mg Oral tab 1 tab twice tw2 a day [Active]; metoprolol tartrate 50 mg Oral tab 1 tab 3 times per day [Active]; - PMHx: 10:03 ADD/ADHD; Anxiety; Arthritis; Back pain; Chronic pain; Irritable bowel syndrome; tw2 Osteoporosis; restless leg syndrome; Tachycardia; ULCER; PE; bleeding ulcers; GERD; - PSHx: 10:03 Appendectomy; hysterectomy; left clavicle repair; tw2 - Immunization history:: Client reports receiving the 2nd dose of the Covid vaccine, Flu vaccine is up to date. - Social history:: Smoking status: Patient/guardian denies using tobacco, the patient reports quitting approximately 09 years ago. ROS: 10:22 Constitutional: Positive for body aches, chills. jmm 10:22 Cardiovascular: Positive for chest pain, with cough. 10:22 Respiratory: Positive for cough. 10:22 All other systems are negative. Exam: 10:22 Constitutional: This is a well developed, well nourished patient who is awake, alert, jmm and in no acute distress. Head/Face: atraumatic. Eyes: EOMI, no conjunctival erythema appreciated ENT: Moist Mucus Membranes Neck: Trachea midline, Supple Chest/axilla: Normal chest wall appearance and motion. Cardiovascular: Regular rate and rhythm. No edema appreciated Respiratory: Normal respirations, no respiratory distress appreciated Abdomen/GI: Non distended, soft Back: Normal ROM Skin: General appearance color normal MS/ Extremity: Moves all extremities, no obvious deformities appreciated, no edema noted to the lower extremities Neuro: Awake and alert, normal gait Psych: Behavior is normal, Mood is normal, Patient is cooperative and pleasant 10:33 ECG was reviewed by the Attending Physician. rn Vital Signs: 10:02 BP 108 / 75 LA; Pulse 84; Resp 17; Temp 97.6(TE); Pulse Ox 100% on R/A; tw2 10:02 BP 90 / 78 RA; tw2 13:19 BP 111 / 51; Pulse 71; Resp 17; Pulse Ox 100% on R/A; jt3 14:48 BP 105 / 56; Pulse 74; Resp 17; Pulse Ox 100% on R/A; jt3 MDM: 10:22 Patient medically screened. [facility] 14:04 Data reviewed: vital signs, nurses notes. Counseling: I had a detailed discussion with lisbeth the patient and/or guardian regarding: the historical points, exam findings, and any diagnostic results supporting the discharge/admit diagnosis, lab results, radiology results, the need for outpatient follow up, to return to the emergency department if symptoms worsen or persist or if there are any questions or concerns that arise at home. ED course: Is alert nontoxic in appearance in the ED. Patient states feeling much better. I do not suspect ACS. Most likely due to upper respiratory infection. Catheterization results from June reviewed revealing minimal plaques. Repeat troponins are normal. Patient advised to follow-up this PCP tomorrow for reevaluation otherwise given strict return precautions. Patient understood agrees plan of care.. 04/27 10:23 Order name: Basic Metabolic Panel [facility] 04/27 10:23 Order name: CBC with Diff; Complete Time: 10:57 [facility] 04/27 10:23 Order name: LFT's; Complete Time: 11:16 [facility] 04/27 10:23 Order name: Magnesium; Complete Time: 11:16 [facility] 04/27 10:23 Order name: NT PRO-BNP; Complete Time: 11:16 [facility] 04/27 10:23 Order name: PT-INR; Complete Time: 10:57 [facility] 04/27 10:23 Order name: Troponin (emerg Dept Use Only); Complete Time: 11:16 [facility] 04/27 10:23 Order name: XRAY Chest (1 view); Complete Time: 11:37 [facility] 04/27 10:23 Order name: Basic Metabolic Panel; Complete Time: 11:16 [facility] 04/27 10:24 Order name: COVID-19 SARS RT PCR (Document "Date of Onset" if Symptomatic); Complete [facility] Time: 14:00 04/27 11:23 Order name: CT Chest For PE Angio; Complete Time: 12:30 [facility] 04/27 12:07 Order name: Troponin (emerg Dept Use Only); Complete Time: 14:00 [facility] 04/27 10:23 Order name: EKG; Complete Time: 10:24 [facility] 04/27 10:23 Order name: Cardiac monitoring; Complete Time: 10:32 [facility] 04/27 10:23 Order name: EKG - Nurse/Tech; Complete Time: 10:32 [facility] 04/27 10:23 Order name: IV Saline Lock; Complete Time: 10:32 [facility] 04/27 10:23 Order name: Labs collected and sent; Complete Time: 10:32 [facility] 04/27 10:23 Order name: O2 Per Protocol; Complete Time: 10:32 [facility] 04/27 10:23 Order name: O2 Sat Monitoring; Complete Time: 10:32 jmm EC:33 Rate is 67 beats/min. Rhythm is regular. QRS [place] is Normal. IN interval is normal. QRS rn interval is normal. QT interval is normal. No Q waves. T waves are Normal. No ST changes noted. Clinical impression: Normal ECG. Interpreted by me. Reviewed by me. Administered Medications: 11:55 Drug: morphine 2 mg Route: IVP; Site: left forearm; jt3 13:19 Follow up: Response: No adverse reaction; Pain is decreased jt3 11:55 Drug: Zofran (Ondansetron) 4 mg Route: IVP; Site: left forearm; jt3 13:19 Follow up: Response: No adverse reaction jt3 Disposition: 15:27 Co-signature as Attending Physician, Bryon Rivera MD I agree with the assessment and rn plan of care. Attestation: The patient's history, exam findings, diagnostics, and a summary of any interventions or procedures was reviewed in detail with Parker WHEELER. Disposition Summary: 04/27/21 14:06 Discharge Ordered Location: Home jmm Condition: Stable jmm Diagnosis - Acute upper respiratory infection, unspecified jmm - Chest pain, unspecified jmm Followup: jmm - With: Nirmal Hancock, DO - When: Tomorrow - Reason: Discharge Instructions: - Discharge Summary Sheet jmm - Nonspecific Chest Pain, Adult jmm - Upper Respiratory Infection, Adult jmm Forms: - Medication Reconciliation Form jmm - Thank You Letter jmm - Antibiotic Education jmm - Prescription Opioid Use jmm Signatures: Dispatcher [employer] EDParker Mccabe PA PA jmm Bryon Rivera MD MD rn Wise, Tara RN RN tw2 Mark Mcbride RN RN jt3
[2021-04-27 16:44] VITALS: TEMP 97.6; O2SAT 100
[2021-04-27 16:47] VITALS: BP 105/56
--- NOTE | 2021-04-28 16:55 | EKG ---
Test Date: 2021-04-27 Test Time: 10:27:44 Medical Instructor: IBIS MEASUREMENT RESULTS: Intervals: Rate: 67 IN: 154 QRSD: 80 QT: 406 QTc: 429 Center: P: 55 IN: 154 QRS: 51 T: 51 INTERPRETIVE STATEMENTS: Normal sinus rhythm Normal ECG Compared to ECG 03/31/2021 22:03:39 No significant changes Electronically Signed On 04-28-21 16:51:28 PLATE MAKER ZINC by Nehemiah Mckinney
--- NOTE | 2021-04-28 16:55 | EKG ---
Test Date: 2021-04-27 Test Time: 11:09:08 Leasing Machine Tender: IBIS MEASUREMENT RESULTS: Intervals: Rate: 66 CO: 142 QRSD: 82 QT: 410 QTc: 429 [place]: P: CO: 142 QRS: 165 T: 155 INTERPRETIVE STATEMENTS: Normal sinus rhythm Left posterior fascicular block Inferior infarct, age undetermined Abnormal ECG Compared to ECG 04/27/2021 10:27:44 Left posterior fascicular block now present Myocardial infarct finding now present Electronically Signed On 04-28-21 16:51:27 FREEZER WORKER by Nehemiah Mckinney
== END 2021-04-27 14:59 | disposition home or self-care (01) ==
LOC: ER 09:57
DX: J06.9 Acute upper respiratory infection, unspecified (principal); Z86.711 Personal history of pulmonary embolism; Z79.01 Long term (current) use of anticoagulants; Z20.822 Contact with and (suspected) exposure to COVID-19; Z88.5 Allergy status to narcotic agent; Z88.6 Allergy status to analgesic agent; Z88.8 Allergy status to other drugs, medicaments and biological substances
CPT/HCPCS: 93005 ×2; 85025; 80048; 36415; 83735; 85610; 80076; 84484 ×2; 83880; 71275; 71045; 96375; 96374; 99285; U0003; Q9967; J2270; J2405

== ENCOUNTER 2021-08-15 18:27 | Emergency (ER) | payer OTHER ==
--- OUTSIDE RECORDS SUMMARY | 2021-08-15 18:31 | XMS REPORT | Continuity of Care Document ---
:1960 Author Organization [facility] t Address [address] [place] [address] [address]. [address] [place] [address] Care Team Providers Name Role Phone Pace, E Primary Care Physician Merced Hancock Attending Clinician Unavailable MARIA ALEJANDRA Attending Clinician Unavailable Maria Alejandra TEE Attending Clinician Doctor Unassigned, Name Attending Clinician Unavailable Only, Test Attending Clinician Unavailable ANDREW Attending Clinician Unavailable ROGELIO Attending Clinician Unavailable RIP NASH Attending Clinician Unavailable RIP NASH Attending Clinician Unavailable MARIA ALEJANDRA Admitting Clinician Unavailable Maria Alejandra TEE Admitting Clinician ROGELIO Admitting Clinician Unavailable Payers Payer Name Policy Type Policy Number Effective Date Expiration Date Ana María gibbonsmiguel VENITA/[facility] DUAL [id number] 2020 COMP HMO D SNP 00:00:00 MEDICAID [facility] [id number] 2020 00:00:00 [facility] [place] STAR [place] [id number] 2013 00:00:00 MEDIC[place] B-[place]: [id number] 2006 [place] Live 00:00:00 [facility] [id number] PLAN - DUAL COMPLETE - SNP PLAN (MEDICARE REPLACEMENT HMO) [facility] [id number] 2018 COMMUNITY PLAN - 00:00:00 [place]MEDICAID HMO) Problems Condition Condition Condition Status Onset Resolution Last Treating Co mments Source Name Details Category Date Date Treatment Clinician Date Peptic Peptic Disease Active Overview: Univer s ulcer ulcer 6-15 Formattin ity of disease disease 00:00: g of this note Medical might be Branch different from the original. Added automatic ally from request for surgery [id number] Multiple Multiple Disease Active Overview: Un raffi gastric gastric 2-02 Formattin ity o f ulcers ulcers 00:00: g of this note Medical might be Branch different from the original. Added automatic ally from request for surgery [id number] Hiatal Hiatal Disease Active 2019-06 Univers hernia hernia 2-03 ity of 00:00: Medical Branch Post-op Post-op Disease Active 2015-06 Univers pain pain 0-31 ity of 00:00: Medical Branch Chronic Chronic Disease Active Univers neck pain neck pain 1-11 ity of 00:00: Medical Branch Anxiety Anxiety Disease Active Univers disorder disorder 1-11 ity of 00:00: Medical Branch Supraventr Supraventr Disease Active U nivers icular icular ity of dysrhythmi dysrhythmi [place] [facility] PTSD PTSD Disease Active Univers (post-trau ([facility]-trau [facility] [place] stress stress Medical disorder) disorder) Bran ch Chronic Chronic Disease Active Univers low back low back ity of pain pain [facility] Allergies, Adverse Reactions, Alerts Allergy Allergy Status Severity Reaction(s) Onset Inactive Treating Comm ents Source Name Type Date Date Clinician Haloperi Propensi Active Anaphylaxis U nivers dol ty to 2-04 ity of Lactate adverse 00:00: [place] reaction 00 Medical s Branch Etodolac Propensi Active Anaphylaxis U nivers ty to 2-04 ity of adverse 00:00: [place] reaction 00 Medical s Branch HALOPERI DRUG Active Anaphylaxis Uni vers DOL INGREDI 2-04 ity of LACTATE 00:00: [place] 00 Medical Branch ETODOLAC DRUG Active Anaphylaxis Uni vers INGREDI 2-04 ity of 00:00: 00 Medical Branch Pregabal Propensi Active Hallucinatio 2014-06 Univers in ty to ns 2-28 ity of adverse 00:00: [place] reaction 00 Medical s Branch PREGABAL DRUG Active Hallucinates 2014-06 Un raffi IN INGREDI 2- ity of 00:00: [place] 00 Medical Branch Meloxica Propensi Active Other - See 2014-06 Seizures Univers m ty to comments 2- ity of adverse 00:00: [place] reaction 00 Medical s Branch Nsaids Propensi Active Anaphylaxis 2014-06 Uni vers (Non-Stepan ty to 2-23 ity of roidal adverse 00:00: [place] Anti-Inf reaction 00 Medica l lammator s Branch y Drug) Nalbuphi Propensi Active Anaphylaxis 2014-06 U nivers ne Hcl ty to 2-23 ity of adverse 00:00: [place] reaction 00 Medical s Branch Vistaril Propensi Active Extra 2014-06 Univer s Im (Hcl ty to pyramidal 2-23 ity of Salt) adverse effects 00:00: [place] reaction 00 Medical s Branch MELOXICA DRUG Active Other-Cmnt 2014-06 Univ ers M INGREDI 2-23 ity of 00:00: [place] 00 Medical Branch NSAIDS Drug Active Anaphylaxis 2014-06 Unive rs (NON-STEPAN Class 2-23 ity of ROIDAL 00:00: [place] ANTI-INF 00 Medical LAMMATOR Branch Y DRUG) NALBUPHI DRUG Active Anaphylaxis 2014-06 Uni vers NE HCL INGREDI 2-23 ity of 00:00: [place] 00 Medical Branch VISTARIL DRUG Active EP Effects 2014-06 Univ ers IM (HCL 2-23 ity of SALT) 00:00: [place] 00 Medical Branch Lodine Adverse [facility] throat [facility] Vistaril Adverse Active seizure [facility] Nubain Adverse Active throat [facility] Mobic Adverse Active seizure [facility] Lyrica Adverse Active throat [facility] Ibuprofe Adverse Active throat [facility] Haldol Adverse Active throat [facility] Social History Social Habit Start Date Stop Date Quantity Comments Source Alcohol intake 2020-11-26 2020-11-26 0 /d University 00:00:00 00:00:00 [facility] Tobacco Comment 2020-11-21 2020-11-21 stopped Universit y of 00:00:00 00:00:00 02/22/2013 [facility] Tobacco use and 2015-06-09 2015-06-09 Never used Universit y of exposure 00:00:00 00:00:00 [facility] Sex Ass[birth year] At [birth year] Universit y of 00:00:00 00:00:00 [facility] Smoking Status Start Date Stop Date Source Former smoker 2015-06-09 00:00:00 2015-06-09 00:00:00 [facility] Medications Ordered Filled Start Stop Current Ordering Indication Dosage Frequency Signature Comments Components Source Medication Medication Date Date Medication? Clinician (SIG) Name Name clonazePAM Yes 1mg Take 1 mg Un raffi (KLONOPIN) 6-15 by mouth ity o f 1 mg tablet 13:28: as needed. [place] [address] Medical Branch metoprolol Yes 25mg Take 25 mg U nivers tartrate 6-15 by mouth ity of (LOPRESSOR) 13:28: daily. [facility] s 25 mg Medical tablet Branch dicyclomine Yes 20mg Take 20 mg Univers 20 mg 6-15 by mouth ity of tablet 13:28: daily. [place] [address] Medical Branch FLUoxetine Yes 40mg Take 40 mg U nivers (PROZAC) 40 6-15 by mouth ity of mg capsule 13:28: daily. [address] OLANZapine Yes 2.5mg Take 2.5 Un raffi 2.5 mg 6-15 mg by ity of tablet 13:28: mouth 2 [place] [address] (two) Medical times Branch daily. desonide Yes APPLY TO Unive rs 0.05 % 1-18 THE ity of cream 00:00: AFFECTED [place] [address] AREA TWICE Medical DAILY Branch SPARINGLY AND RUB GENTLY Metoprolol Metoprolol Yes Nirmal 1 tablet [facility] [...] Date/Time Type Type Clinicians Facility Department ID 2021-07-29 Outpatient [place], [place] [id number] [facility] [address] 10:19:01 Nirmal [id number] [facility] 2021-07-08 Outpatient [place], [place] [id number] [facility] [address] 14:39:04 Nirmal [facility] 2021-07-08 Outpatient [place]ancock, [place] [id number] 14:11:57 Nirmal [id number] [facility] 2021-07-08 Outpatient Hancock, [facility] [id number] [facility] 14:09:54 Nirmal [id number] [facility] 2021-07-08 Outpatient [place]ancock, [place] [id number] 12:46:03 Nirmal [address] [facility] 2021-07-08 Outpatient Hancock, [facility] [id number] 12:36:17 Nirmal [id number] [facility] 2021-07-08 Outpatient Hancock, [facility] [id number] 12:17:58 Nirmal [id number] [facility] 2021-07-08 Outpatient Hancock, [facility] [id number] 11:28:21 Nirmal 488[address] [facility] 2021-07-08 Outpatient Hancock, [facility] [id number] 11:18:20 Nirmal 50671 [facility] 2021-07-08 Outpatient Hancock, [facility] 11:13:47 Nirmal 43421 [facility] 2021-07-08 [facility], [facility] [id number] 11:09:58 Nirmal [id number] [facility] 2021-07-08 Outpatient Hancock, [facility] [id number] [facility] [facility] 11:08:14 Nirmal [id number] [facility] 2021-04-13 [id number] Univers 11:39:26 [facility] 2021-04-12 [facility] [id number] Univers 23:35:55 [facility] 2021-04-11 Outpatient Azam [facility]ESS [facility] [id number] Univers 21:31:44 [facility] 2021-08-13 2021-08-13 ambulatory [facility] [id number] [facility] St 00:00:00 00:00:00 [facility] 2021-07-31 2021-07-31 ambulatory [facility] [id number] [facility] 2021-07-30 2021-07-30 ambulatory [facility] [id number] [facility]00 [facility] 2021-07-19 2021-07-19 Refill Maria Alejandra NCEVANS [id number] Univers 00:00:00 00:00:00 [facility] [id number] it y of CLEAR [id number] [facility] [phone] [address] ([facility]) 2021-07-06 2021-07-06 ambulatory [facility] [id number] [facility]00 [facility] 2021-07-06 2021-07-06 ambulatory [facility] [id number] [facility]00 [facility] 2021-07-03 2021-07-03 ambulatory [facility] [id number] [facility] 2021-06-23 2021-06-23 ambulatory [facility] [id number] [facility] 2021-06-22 2021-06-22 ambulatory [facility] [id number] [facility]00 [facility] 2021-05-28 2021-05-28 ambulatory [facility] [id number] [facility]00 [facility] 2021-05-21 2021-05-21 ambulatory [facility] [id number] [facility]00 [facility] 2021-04-28 2021-04-28 ambulatory [facility] [id number] [facility] 2021-04-27 2021-04-27 ambulatory [facility] [id number] [facility] 2021-04-24 2021-04-24 ambulatory [facility] [id number] [facility]00 [facility] 2021-04-07 2021-04-07 Outpatient [facility] [id number] [facility] 2021-04-02 2021-04-02 Outpatient [facility] [id number] [facility] 2021-03-26 2021-03-26 Outpatient [facility] [id number] [facility] 2021-03-03 2021-03-03 Outpatient [facility] [id number] [facility] 2021-02-27 2021-02-27 Outpatient [facility] [id number] [facility] 2021-02-25 2021-02-25 Outpatient [facility] [id number] [facility] 2021-01-21 2021-01-21 Outpatient [facility] [id number] [facility] 2021-01-19 2021-01-19 Outpatient [facility] [id number] [facility] 2021-01-16 2021-01-16 Outpatient [facility] [id number] Univers 11:30:00 11:30:[id number] [facility] 2021-01-16 2021-01-16 Outpatient R [facility] [id number] Univers 11:30:00 11:30:00 [facility] 2021-01-14 2021-01-14 Outpatient R [facility] [id number] Univers 08:50:00 08:50:[id number] [facility] 2021-01-13 2021-01-13 Outpatient R [facility] [id number] Univers 07:25:00 07:25:[id number] [facility] 2020-12-24 2020-12-24 Outpatient [facility] [id number] [facility] 2020-12-24 2020-12-24 [facility] [id number] [facility] 2020-12-24 2020-12-24 Outpatient [facility] [id number] [facility] 2020-12-19 2020-12-19 Outpatient [facility] [id number] [facility] 2020-12-18 2020-12-18 Outpatient [facility] [id number] [facility] 2020-11-25 2020-11-25 Hospital [facility] [id number] 09:18:00 13:13:00 Encounter [facility] [id number] Clear [id number] Jarvis [id number] Hospital 049 ([facility]) 2020-11-25 2020-11-25 Surgery [facility] [id number] 11:00:00 12:14:00 Health [id number] Clear 4.2.7.2.686 Jarvis [id number] [facility] 020 ([facility]) 2020-11-25 2020-11-25 Refill [facility] [id number] 00:00:00 00:00:00 [facility] [id number] Clear 4.2.7.2.686 Jarvis [id number] [facility] 049 ([facility]) 2020-11-25 2020-11-25 Refill [facility] [id number] 00:00:00 00:00:00 [facility] [id number] Clear 4.2.7.2.686 Jarvis [id number] [facility] 049 ([facility]) 2020-11-25 2020-11-25 Orders Doctor RAY [id number] 00:00:00 00:00:00 Only UnassignedSUSHILA [id number] [place] [id number] 2020-11-25 2020-11-25 Prep For RAY Bess [id number] 00:00:00 00:00:00 Surgery Nivia CONTI [id number] [place] [id number] 2020-11-24 2020-11-24 Outpatient R [facility] [id number] Univers 07:55:00 07:55:[id number] [facility] 2020-11-21 2020-11-21 Outpatient R [facility] [id number] Univers 12:15:00 12:15:[id number] [facility] 2020-11-19 2020-11-19 Outpatient R [facility] [id number] Univers 13:30:00 13:30:[id number] [facility] 2020-11-14 2020-11-14 Outpatient [facility] [id number] [facility] 2020-11-12 2020-11-12 Outpatient [facility] [id number] [facility]00 [facility] 2020-11-03 2020-11-03 Prep For RAY [id number] 00:00:00 00:00:00 Surgery Nivia CONTI [id number] [id number] 2020-10-31 2020-10-31 Telephone MESHA Bess [id number] 00:00:00 00:00:00 Nivia SHAFFER [id number] CARE .2.7.2.686 CENTER AT [id number] MARYSOL Jaida LAKES 2020-10-24 2020-10-24 Outpatient [facility] [id number] [facility] 2020-10-15 2020-10-15 Outpatient [facility] [id number] [facility] 2020-07-23 2020-07-23 Laboratory Only, [facility] [id number] 11:51:15 12:06:15 Only Test [place] [id number] [place] 4.2.7.2.686 [place] [id number] 2020-07-23 2020-07-23 Outpatient [facility] [id number] Univers 11:00:00 11:00:[id number] [facility] 2020-07-23 2020-07-23 Outpatient R [facility] [id number] Univers 11:00:00 11:00:00 [facility] 2020-07-23 2020-07-23 Orders Doctor RAY 1.2.840.114 [id number] 00:00:00 00:00:00 Only Unassigned, SUSHILA 350.1.13.10 [place] [address]686 [id number] 2020-07-21 2020-07-21 Outpatient R [facility] [id number] Univers 08:35:00 08:35:[id number] [facility] 2020-07-18 2020-07-18 Outpatient R [facility] [id number] Univers 07:25:00 07:25:[id number] [facility] 2020-07-18 2020-07-18 [id number] 2020-07-17 2020-07-17 Outpatient R [facility] [id number] Univers 08:35:00 08:35:[id number] [facility] 2020-07-15 2020-07-15 Office Maria Alejandra [facility] [id number] 13:45:51 14:15:51 Visit [facility] [id number] [facility] [id number] [place] AT [id number] MARYSOL ROMAN 2020-07-15 2020-07-15 Outpatient Azam BESS [facility] [id number] Univers 13:45:00 13:45:[address] [facility] 2020-07-15 2020-07-15 Outpatient Azam BESS [facility] [id number] Univers 13:45:00 13:45:[address] [facility] 2020-06-18 2020-06-18 Outpatient [facility] [id number] [facility] 2020-06-17 2020-06-17 [facility] [id number] Univers 08:30:00 08:30:00 JOE [id number] ingelisseth [facility] 2020-06-17 2020-06-17 [facility] [id number] Univers 08:30:00 08:30:00 JOE alcazarlisseth [facility] 2020-06-09 2020-06-09 Outpatient R [facility] [id number] Univers 09:00:00 09:00:00 [facility] 2020-06-09 2020-06-09 Outpatient R [facility] [id number] Univers 08:00:00 08:00:[id number] [facility] 2020-05-15 2020-05-15 Outpatient [facility] [id number] [facility] 2020-05-13 2020-05-13 Outpatient R [facility] [id number] Univers 09:00:00 09:00:00 JOE [id number] ingelisseth [facility] 2020-05-13 2020-05-13 Outpatient R [facility] [id number] Univers 09:00:00 09:00:00 JOE jarrett [facility] 2020-04-17 2020-04-17 Outpatient [facility] [id number] [facility] 2020-04-11 2020-04-11 Outpatient [facility] [id number] [facility] 2020-04-08 2020-04-08 Outpatient [facility] [id number] [facility] 2020-03-20 2020-03-20 Outpatient [facility] [id number] [facility] 00[facility]00 [facility] 2019-12-19 2019-12-19 [facility] [id number] 10:45:00 10:45:00 t [employer] - [employer] [facility] Medicine l Medicine Outpati ent Clinics 2019-12-19 2019-12-19 [facility] [id number] 10:00:00 10:00:00 t [employer] - [employer] [facility] Medicine l Medicine Outpati ent Clinics 2019-12-03 2019-12-03 [facility] [id number] 10:17:00 10:17:00 t [employer] - [employer] [facility] Medicine l Medicine Outpati ent Clinics 2019-12-03 2019-12-03 [facility] [id number] 09:59:00 09:59:00 t [employer] - [employer] [facility] Medicine l Medicine Outpati ent Clinics 2019-11-29 2019-11-29 [facility] [id number] 09:45:00 09:45:00 t [employer] - [employer] [facility] Medicine l Medicine Outpati ent Clinics 2019-11-13 2019-11-13 [facility] [id number] 11:17:00 11:17:00 t [facility] Fios s [employer] [facility] Medicine l Medicine Outpati ent Clinics 2019-11-06 2019-11-06 [facility] [id number] 15:08:00 15:08:00 t [employer] [facility] Medicine l Medicine Outpati ent Clinics 2019-11-01 2019-11-01 [facility] [id number] [facility] 16:03:00 16:03:00 t [employer] [facility] l Medicine Outpati ent Clinics 2019-10-31 2019-10-31 [facility] [id number] 09:15:00 09:15:00 t [employer] - [employer] [facility] l Medicine Outpati ent Clinics 2019-10-01 2019-10-01 [facility] [id number] 10:00:00 10:00:00 t [employer] - [employer] [facility] Medicine l Medicine Outpati ent Clinics 2019-08-27 2019-08-27 [facility] [id number] 14:00:00 14:00:00 t [employer] [facility] l Medicine Outpati ent Clinics 2019-07-30 2019-07-30 [facility] [id number] 11:00:00 11:00:00 t [employer] [facility] l Medicine Outpati ent Clinics 2019-07-18 2019-07-18 Outpatient ANETA GHOSH [facility] [id number] [place] 01:45:00 01:45:00 HN [id number] da [facility] 2019-07-03 2019-07-03 Outpatient SHERWIN MADRIGAL [facility] [id number] Univers 00:00:00 00:00:[id number] [facility] Results This patient has no known results.
[2021-08-15 19:30] LABS: Urine Blood Trace-lysed (Negative); Urine Glucose Negative (Negative); Urine Protein 1+ (Negative); Urine Specific Gravity >=1.030 (1.005-1.030); Urine pH 5.5 (5.0-7.0)
[2021-08-15] MEDS ORDERED: NA CHLORIDE 0.9% 500 ML ONE ×2 (19:35→22:00)
--- NOTE | 2021-08-15 19:49 | RAD REPORT ---
EXAM DESCRIPTION: CT - Head Brain Wo Cont - 08/15/2021 7:32 pm CLINICAL HISTORY: Hallucinations COMPARISON: Sinus Wo Cont dated 05/05/2020; Head Brain Wo Cont dated 04/09/2019 TECHNIQUE: All CT scans are performed using dose optimization technique as appropriate and may inclu de automated exposure control or mA/KV adjustment according to patient size. FINDINGS: No intracranial hemorrhage, hydrocephalus or extra-axial fluid collection.No areas of brai n edema or evidence of midline shift. The paranasal sinuses and mastoids are clear. The calvarium is intact. IMPRESSION: No acute intracranial abnormality.
[2021-08-15 19:56] LABS: Urine Bacteria <20 /HPF (<20); Urine RBC <5 /HPF (NONE SEEN)
[2021-08-15 20:01] LABS: Absolute Lymphocytes (CBC) 1.3 K/uL (0.7-4.9); Hematocrit 32.9 % (36.0-45.0); Lymphocytes % 15.6 % (15.3-44.8); MPV 7.6 fL (7.6-11.3); RBC Red Blood Cell Count 4.09 M/uL (3.86-4.86)
[2021-08-15 20:02] LABS: Barbiturates NEGATIVE (NEGATIVE); Benzodiazepines POSITIVE (NEGATIVE); Cocaine NEGATIVE (NEGATIVE); METHAMPHETAM POSITIVE (NEGATIVE); Methadone NEGATIVE (NEGATIVE); Opiates NEGATIVE (NEGATIVE); Phencyclidine NEGATIVE (NEGATIVE); THC Cannibis POSITIVE (NEGATIVE)
[2021-08-15 20:32] LABS: Albumin 4.1 g/dL (3.4-5.0); Bilirubin Total 0.2 mg/dL (0.2-1.0); Protein, Total 8.2 g/dL (6.4-8.2)
--- NOTE | 2021-08-15 21:55 | ER ---
Nurse's Notes [facility] Name: Martha Pradhan Age: 60 yrs Sex: Female : 1960 Arrival Date: 08/15/2021 Time: 18:29 Bed 4 Private MD: Diagnosis: Cannabis abuse;Other stimulant abuse;Hallucinations, unspecified Presentation: 08/15 18:33 Chief complaint: EMS states: EMS called for possible sanke bite. PD reported that no [facility] snake could be found. pt has no puncture wounds noted to l inner wrist and no swelling noted. Coronavirus screen: Vaccine status: Patient reports receiving the 2nd dose of the covid vaccine. Ebola Screen: Patient denies exposure to infectious person. Patient denies travel to an Ebola-affected area in the 21 days before illness onset. Initial Sepsis Screen: Does the patient meet any 2 criteria? No. Patient's initial sepsis screen is negative. Does the patient have a suspected source of infection? No. Patient's initial sepsis screen is negative. Risk Assessment: Do you want to hurt yourself or someone else? Patient reports no desire to harm self or others. Onset of symptoms was August 15, 2021. 18:33 Method Of Arrival: EMS: [facility] 18:33 Acuity: ROSALBA 4 jh6 Triage Assessment: 18:35 General: Appears in no apparent distress. comfortable, unkempt, well nourished, 6 Behavior is calm, cooperative. Pain: Complains of pain in left clavicle Pain currently is 6 out of 10 on a pain scale. Quality of pain is described as shooting. Historical: - Allergies: 18:35 haloperidol lactate; jh6 18:35 hydroxyzine HCl; jh6 18:35 Hydroxyzine Pamoate; jh6 18:35 Ibuprofen; jh6 18:35 Lyrica; jh6 18:35 meloxicam; jh6 18:35 nalbuphine HCl; jh6 18:35 Naproxen; jh6 18:35 NSAIDS (Non-Steroidal Anti-Inflammatory Drug); jh6 18:35 Nubain; jh6 18:35 Risperdal; jh6 18:35 Vistaril; jh6 - Home Meds: 21:20 metoprolol tartrate 50 mg Oral tab 1 tab 2 times per day [Active]; dicyclomine 20 mg as6 Oral tab 1 tab daily [Active]; Prozac 40 mg Oral cap 1 cap once daily [Active]; olanzapine oral 1 tab once daily [Active]; - PMHx: 18:35 ADD/ADHD; Anxiety; Arthritis; Back pain; bleeding ulcers; Chronic pain; GERD; Irritable jh6 bowel syndrome; Osteoporosis; PE; restless leg syndrome; Tachycardia; ULCER; - PSHx: 18:35 Appendectomy; hysterectomy; left clavicle repair; [facility] - Immunization history:: Adult Immunizations up to date, Client reports receiving the 2nd dose of the Covid vaccine. - Social history:: Smoking status: Patient/guardian denies using tobacco, the patient reports quitting approximately 9 years ago. Screenin:38 Abuse screen: Denies threats or abuse. Nutritional screening: No deficits noted. 6 Tuberculosis screening: No symptoms or risk factors identified. Fall Risk None identified. Assessment: 18:37 General: Appears see triage note. [facility] 19:19 General: Appears in no apparent distress. Pain: Complains of pain in left hand and left as6 arm Pain currently is 6 out of 10 on a pain scale. Cardiovascular: Rhythm is sinus tachycardia. 20:38 General: Pt stating that she has been bit by a small brown snake to her left medial as6 aspect of wrist, there is no evidence of puncture, redness, swelling . 21:15 Reassessment: Patient appears in no apparent distress at this time. as6 Vital Signs: 18:33 BP 131 / 57; Pulse 116; Resp 16; Temp 98.3(O); Pulse Ox 99% ; Weight 58.97 kg; Height 5 [facility] ft. 0 in. (152.40 cm); Pain 6/10; 19:19 BP 136 / 73; Pulse 117; Resp 20 S; Pulse Ox 99% on R/A; as6 20:00 BP 119 / 50; Pulse 109; Resp 18 S; Pulse Ox 99% on R/A; as6 21:15 BP 104 / 72; Pulse 97; Resp 22 S; Pulse Ox 94% on R/A; as6 21:55 BP 115 / 49; Pulse 98; Resp 20 S; Pulse Ox 100% on R/A; as6 23:14 BP 120 / 51; Pulse 88; Resp 20 S; Pulse Ox 97% on R/A; as6 18:33 Body Mass Index 25.39 (58.97 kg, 152.40 cm) jh6 ED Course: 18:29 Patient arrived in ED. jl7 18:33 Elizabeth Del Cid, RN is Primary Nurse. jh6 18:35 Triage completed. jh6 18:37 Arm band placed on right wrist. jh6 18:39 Patient has correct armband on for positive identification. Bed in low position. Call [facility] light in reach. Side rails up X 1. 18:39 No provider procedures requiring assistance completed. jh6 18:45 Slade Bolivar NP is PHCP. pm1 18:45 Bryon Rivera MD is Attending Physician. pm1 19:02 Primary Nurse role handed off by Elizabeth Del Cid, ALEXANDRA cs9 19:08 Chucky Hendricks RN is Primary Nurse. as6 19:31 Urine Microscopic Only Sent. as6 19:31 UDS Sent. as6 19:32 CT Head Brain wo Cont In Process Unspecified. EDMS 20:00 Inserted saline lock: 22 gauge in left hand, using aseptic technique. as6 23:18 IV discontinued, intact, bleeding controlled, No redness/swelling at site. Pressure as6 dressing applied. Administered Medications: 20:00 Drug: NS 0.9% 500 ml Route: IV; Rate: bolus; Site: left hand; as6 20:36 Follow up: Response: No adverse reaction; IV Status: Completed infusion; IV Intake: as6 500ml 22:02 Drug: NS 0.9% 500 ml Route: IV; Rate: bolus; Site: left antecubital; ll3 23:18 Follow up: Response: No adverse reaction; IV Status: Completed infusion; IV Intake: as6 500ml Intake: 20:36 IV: 500ml; Total: 500ml. as6 23:18 IV: 500ml; Total: 1000ml. as6 Outcome: 21:54 Discharge ordered by MD. pm1 23:18 Discharged to home ambulatory, with family. as6 23:18 Condition: stable 23:18 Discharge instructions given to patient, Instructed on discharge instructions, follow up and referral plans. Demonstrated understanding of instructions, follow-up care. 23:19 Patient left the ED. as6 Signatures: Dispatcher [employer] EDNV Slade Bolivar, FELICIA IT PROGRAMMER ANALYST pm1 Anderson Roldan RN RN jl7 Najma Casey 9 Chucky Hendricks, RN RN as6 Cecile Lagunas, RN RN ll3 Elizabeth Del Cid RN RN jh6
--- NOTE | 2021-08-15 21:55 | EDPHYS ---
Physician Documentation [facility] Name: Martha Pradhan Age: 60 yrs Sex: Female : 1960 Arrival Date: 08/15/2021 Time: 18:29 Bed 4 Private MD: ED Physician Bryon Rivera HPI: 08/15 19:08 This 60 yrs old Female presents to ER via EMS with complaints of left wrist pain, snake pm1 bite. 19:08 The patient or guardian reports snake bite to left wrist. EMS called by neighbor and pm1 police who were first on the scene did not find any snake or signs of snake bite. EMS arrival no snake bite found. Mother reports that she has a history of hallucination due to over medication. The complaints affect the left wrist diffusely. Context: The problem was sustained at home, resulted from snake bite per patient. Onset: The symptoms/episode began/occurred just prior to arrival. Modifying factors: The symptoms are alleviated by nothing, the symptoms are aggravated by nothing. Associated signs and symptoms: The patient has no apparent associated signs or symptoms, Pertinent negatives: cyanosis distally, decreased sensation distally, numbness distally, tingling distally. The patient has not experienced similar symptoms in the past. The patient has not recently seen a physician. Historical: - Allergies: 18:35 haloperidol lactate; jh6 18:35 hydroxyzine HCl; jh6 18:35 Hydroxyzine Pamoate; jh6 18:35 Ibuprofen; jh6 18:35 Lyrica; jh6 18:35 meloxicam; jh6 18:35 nalbuphine HCl; jh6 18:35 Naproxen; jh6 18:35 NSAIDS (Non-Steroidal Anti-Inflammatory Drug); jh6 18:35 Nubain; jh6 18:35 Risperdal; jh6 18:35 Vistaril; jh6 - Home Meds: 21:20 metoprolol tartrate 50 mg Oral tab 1 tab 2 times per day [Active]; dicyclomine 20 mg as6 Oral tab 1 tab daily [Active]; Prozac 40 mg Oral cap 1 cap once daily [Active]; olanzapine oral 1 tab once daily [Active]; - PMHx: 18:35 ADD/ADHD; Anxiety; Arthritis; Back pain; bleeding ulcers; Chronic pain; GERD; Irritable jh6 bowel syndrome; Osteoporosis; PE; restless leg syndrome; Tachycardia; ULCER; - PSHx: 18:35 Appendectomy; hysterectomy; left clavicle repair; jh6 - Immunization history:: Adult Immunizations up to date, Client reports receiving the 2nd dose of the Covid vaccine. - Social history:: Smoking status: Patient/guardian denies using tobacco, the patient reports quitting approximately 9 years ago. ROS: 19:08 Constitutional: Negative for fever, chills, and weight loss, Cardiovascular: Negative pm1 for chest pain, palpitations, and edema, Respiratory: Negative for shortness of breath, cough, wheezing, and pleuritic chest pain, Abdomen/GI: Negative for abdominal pain, nausea, vomiting, diarrhea, and constipation. 19:08 Skin: Negative for injury, rash, and discoloration, Neuro: Negative for headache, weakness, numbness, tingling, and seizure. 19:08 MS/extremity: Positive for pain, of the left wrist. 19:08 All other systems are negative. Exam: 19:08 Hand exam: is negative for acute changes, ROM: intact in all extremities, Circulation pm1 is intact in all extremities. 19:08 Skin: Exam negative for acute changes. 19:08 Constitutional: This is a well developed, well nourished patient who is awake, alert, and in no acute distress. Head/Face: Normocephalic, atraumatic. 19:08 Skin: Warm, dry with normal turgor. Normal color with no rashes, no lesions, and no evidence of cellulitis. MS/ Extremity: Pulses equal, no cyanosis. Neurovascular intact. Full, normal range of motion. 19:08 Cardiovascular: Exam negative for acute changes, Rate: normal, Rhythm: regular, Pulses: no pulse deficits are appreciated. 19:08 Respiratory: Exam negative for acute changes, respiratory distress, shortness of breath, Breath sounds: are clear throughout. 19:08 Abdomen/GI: Exam negative for acute changes, Inspection: abdomen appears normal, Palpation: abdomen is soft and non-tender. 19:08 Neuro: Exam negative for acute changes, Orientation: is normal, Mentation: is normal, Motor: is normal, moves all fours. Vital Signs: 18:33 BP 131 / 57; Pulse 116; Resp 16; Temp 98.3(O); Pulse Ox 99% ; Weight 58.97 kg; Height 5 [facility] ft. 0 in. (152.40 cm); Pain 6/10; 19:19 BP 136 / 73; Pulse 117; Resp 20 S; Pulse Ox 99% on R/A; as6 20:00 BP 119 / 50; Pulse 109; Resp 18 S; Pulse Ox 99% on R/A; as6 21:15 BP 104 / 72; Pulse 97; Resp 22 S; Pulse Ox 94% on R/A; as6 21:55 BP 115 / 49; Pulse 98; Resp 20 S; Pulse Ox 100% on R/A; as6 23:14 BP 120 / 51; Pulse 88; Resp 20 S; Pulse Ox 97% on R/A; as6 18:33 Body Mass Index 25.39 (58.97 kg, 152.40 cm) [facility] MDM: 19:06 Patient medically screened. pm1 21:48 Data reviewed: vital signs. Data interpreted: Pulse oximetry: on room air is 99 %. pm1 Interpretation: normal. Counseling: I had a detailed discussion with the patient and/or guardian regarding: the historical points, exam findings, and any diagnostic results supporting the discharge/admit diagnosis, lab results, radiology results, the need for outpatient follow up, to return to the emergency department if symptoms worsen or persist or if there are any questions or concerns that arise at home. 08/15 19:08 Order name: CBC with Diff; Complete Time: 20:05 pm1 08/15 19:08 Order name: CMP; Complete Time: 20:47 pm1 08/15 19:08 Order name: Urine Microscopic Only; Complete Time: 19:58 pm1 08/15 19:08 Order name: UDS; Complete Time: 20:05 pm1 08/15 19:30 Order name: Urine Dipstick-Ancillary; Complete Time: 19:52 EDMS 08/15 19:56 Order name: Urine Culture EDMS 08/15 19:08 Order name: CT Head Brain wo Cont; Complete Time: 19:52 pm1 08/15 19:08 Order name: Urine Dipstick-Ancillary (obtain specimen); Complete Time: 19:31 pm1 08/15 19:08 Order name: EKG; Complete Time: 19:08 pm1 08/15 19:08 Order name: EKG - Nurse/Tech; Complete Time: 20:36 pm1 Administered Medications: 20:00 Drug: NS 0.9% 500 ml Route: IV; Rate: bolus; Site: left hand; as6 20:36 Follow up: Response: No adverse reaction; IV Status: Completed infusion; IV Intake: as6 500ml 22:02 Drug: NS 0.9% 500 ml Route: IV; Rate: bolus; Site: left antecubital; ll3 23:18 Follow up: Response: No adverse reaction; IV Status: Completed infusion; IV Intake: as6 500ml Disposition: 08/16 07:25 Co-signature as Attending Physician, Bryon Rivera MD. rn Disposition Summary: 08/15/21 21:54 Discharge Ordered Location: Home pm1 Problem: new pm1 Symptoms: have improved pm1 Condition: Stable pm1 Diagnosis - Cannabis abuse pm1 - Other stimulant abuse pm1 - Hallucinations, unspecified pm1 Followup: pm1 - With: Emergency Department - When: As needed - Reason: Worsening of condition Followup: pm1 - With: Private Physician - When: 2 - 3 days - Reason: Recheck today's complaints, Continuance of care, Re-evaluation by your physician Discharge Instructions: - Discharge Summary Sheet pm1 - Dehydration, Elderly pm1 - Cannabis Use Disorder pm1 - Rehydration, Elderly pm1 Forms: - Medication Reconciliation Form pm1 - Thank You Letter pm1 - Antibiotic Education pm1 - Prescription Opioid Use pm1 Signatures: Dispatcher [employer] EDBryon Calderón MD MD rn Marinas, Patrick, FELICIA SCARFER OPERATOR pm1 Chucky Hendricks RN RN as6 Cecile Lagunas RN RN 3 Elizabeth Del Cid RN RN jh6 Corrections: (The following items were deleted from the chart) 08/15 21:57 21:56 Dehydration pm1 pm1
[2021-08-15 23:50] VITALS: TEMP 98.3
[2021-08-15 23:55] VITALS: BP 120/51; O2SAT 97
--- NOTE | 2021-08-16 09:23 | EKG ---
Test Date: 2021-08-15 Test Time: 20:31:38 Design Supervisor: MINERVA MEASUREMENT RESULTS: Intervals: Rate: 105 IN: 150 QRSD: 86 QT: 368 QTc: 486 [place]: P: 51 IN: 150 QRS: 48 T: 27 INTERPRETIVE STATEMENTS: Sinus tachycardia Otherwise normal ECG Compared to ECG 04/27/2021 11:09:08 Sinus rhythm no longer present Left posterior fascicular block no longer present Myocardial infarct finding no longer present Electronically Signed On 08-16-21 09:22:48 UNDERWRITING ACCOUNT REPRESENTATIVE by Nehemiah Mckinney
== END 2021-08-15 23:19 | disposition home or self-care (01) ==
LOC: ER 18:27
DX: F12.10 Cannabis abuse, uncomplicated (principal); F15.10 Other stimulant abuse, uncomplicated; Z88.5 Allergy status to narcotic agent; Z88.6 Allergy status to analgesic agent; Z88.8 Allergy status to other drugs, medicaments and biological substances
CPT/HCPCS: 96361; 93005; 87088; 85025; 87086; 36415; 80053; 80307; 70450; 96360; 99284; J7040 ×2; 81003; 81015

== ENCOUNTER 2022-03-13 13:03 | Observation (INO) | payer OTHER ==
--- OUTSIDE RECORDS SUMMARY | 2022-03-13 13:07 | XMS REPORT | Continuity of Care Document ---
:1960 Author Organization [facility] t Address Formerly [facility], [facility] [place] [address] Care Team Providers Name Role Phone Katelynn Basil White Primary Care Physician Nirmal Hancock Attending Clinician Unavailable NIVIA BESS Attending Clinician Unavailable Nivia Bess MD Attending Clinician Doctor Unassigned, [place] Attending Clinician Unavailable Only, Adc Test Attending Clinician Unavailable JOE MORALES Attending Clinician Unavailable ROGELIO Attending Clinician Unavailable SHERWIN NASH Attending Clinician Unavailable SHERWIN NASH Attending Clinician Unavailable NIVIA BESS Admitting Clinician Unavailable Nivia Bess MD Admitting Clinician ROGELIO Admitting Clinician Unavailable Payers Payer Name Policy Type Policy Number Effective Date Expiration Date S shawn NATHAN/[facility] DUAL [id number] 2020 COMP HMO D SNP 00:00:00 MEDICAID [facility] [id number] 2020 00:00:00 FORMERLY [facility] [id number] 2013 PLUS 00:00:00 [place] [id number] 2019 Common DUAL MCR WELLMED 00:00:00 Spirit - [facility] [place]ICARE B-[place]: [id number] 2006 CodeNgo 00:00:00 [facility] [id number] PLAN - DUAL COMPLETE - SNP PLAN (MEDICARE REPLACEMENT HMO) [facility] [id number] 2018 COMMUNITY PLAN - 00:00:00 [place] PL[place] (MEDICAID HMO) Problems Condition Condition Condition Status Onset Resolution Last Treating Co mments Source Name Details Category Date Date Treatment Clinician Date Peptic Peptic Disease Active Overview: Univer s ulcer ulcer 6-15 Formattin ity of disease disease 00:00: g of this [place] note Medical might be Branch different from the original. Added automatic ally from request for surgery [id number] Multiple Multiple Disease Active Overview: Un raffi gastric gastric 2-02 Formattin ity o f ulcers ulcers 00:00: g of this [place] note Medical might be Branch different from the original. Added automatic ally from request for surgery [id number] Hiatal Hiatal Disease Active 2019-06 Univers hernia hernia 2-03 ity of 00:00: [place] [facility] Post-op Post-op Disease Active 2015-06 Univers pain pain 0-31 ity of 00:00: [place] [facility] Chronic Chronic Disease Active Univers neck pain neck pain 1-11 ity of 00:00: [place] [facility] Anxiety Anxiety Disease Active Univers disorder disorder 1-11 ity of 00:00: [place] [facility] [place] (Fe) Problem Common deficiency deficiency Sp julio césar anemia anemia - [facility] Anemia in Anemia in Problem Com mon chronic chronic Spirit kidney kidney - CHI disease disease [facility] [id number] DDD Problem Common (degenerat Spirit ceferino disc - CHI disease), [facility] [id number] Attention Problem Comm on deficit Spirit hyperactiv - CHI ity [facility] (ADHD), [facility] Center type [id number] Panic Problem Common disorder Spirit [episodic - CHI paroxysmal St anxiety] [facility] [id number] GERD Problem Common without Spirit esophagiti - CHI s [facility] [id number] 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 [facility] Hypercalce Hypercalce Problem C ommon shahnaz shahnaz Spirit - [facility] [id number] +5th digit Problem Co mmon eff Spirit 03/13/20*CK - CHI D (chronic St kidney [facility] disease) Medical stage 3, Center GFR 30-59 ml/min Chronic Chronic Problem Common fatigue fatigue Spirit syndrome - [facility] Thrombocyt Thrombocyt Problem C lev osis osis Spirit [facility] Anemia due Anemia due Problem C ommon to blood to blood Spirit loss loss - [facility] [id number] Generalize Problem Com mon d anxiety Spirit disorder - [facility] [id number] PTSD Problem Common (post-trau Spirit matic - CHI stress St disorder) [facility] [id number] Bilateral Problem Co mmon 102 tinnitus [facility] [id number] Current Problem Common moderate Spirit episode of - CHI major St depressive [facility] disorder Medical without Center prior episode [id number] Osteoporos Problem Com mon is, Spirit unspecifie - CHI d osteoporos [facility] is type, Medical unspecifie Center d pathologic al fracture presence [id number] 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 - [facility] [id number] 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 [facility] [id number] Allergic Problem Commo n rhinitis, Spirit unspecifie - CHI d seasonalit [facility] y, Medical unspecifie Center d trigger [id number] Mixed Problem Common hyperlipid Spirit emia [facility] [id number] Stage 3a Problem Comm on chronic Spirit kidney - CHI disease [facility] Atheroscle Atheroscle Problem C lev rosis of rosis of Spirit right right - CHI renal renal St artery artery [facility] [id number] Essential Problem Com mon thrombocyt Spirit osis - [facility] [id number] 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 - CHI joints, St unspecifie [facility] d Medical osteoarthr Center itis type [id number] Shoulder Problem Comm on arthritis Spirit - [facility] [id number] History of Problem Co mmon uterine Spirit cancer - [facility] [id number] Chronic Problem Commo n pain Spirit syndrome - [facility] 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 - [facility] ncy of atheroscle intestine [facility] [id number] Elevated Problem Comm on liver Spirit enzymes - [facility] [id number] Primary Problem Comm on osteoarthr Spirit itis of - CHI right knee [facility] [id number] Primary Problem Comm on osteoarthr Spirit itis of - CHI left knee [facility] Supraventr Supraventr Disease Active U nivers icular icular ity of dysrhythmi dysrhythmi [place] [facility] Chronic Chronic Disease Active Univers low back low back ity of pain pain [facility] Allergies, Adverse Reactions, Alerts Allergy Allergy Status Severity Reaction(s) Onset Inactive Treating Comm ents Source Name Type Date Date Clinician Haloperi Propensi Active Anaphylaxis 2020- U nivers dol ty to 2-04 ity of Lactate adverse 00:00: [place] reaction Medical [facility] Etodolac Propensi Active Anaphylaxis 0 U nivers ty to 2- ity of adverse 00:00: [place] reaction [facility] HALOPERI DRUG Active Anaphylaxis Uni vers DOL INGREDI 2-04 ity of LACTATE 00:00: [place] [facility] ETODOLAC DRUG Active Anaphylaxis Uni vers INGREDI 2-04 ity of 00:00: [place] 00 [facility] Pregabal Propensi Active Hallucinatio 2014-06 Univers in ty to ns 2-28 ity of adverse 00:00: [place] reaction 00 [facility] PREGABAL DRUG Active Hallucinates 2014-06 Un raffi IN INGREDI 2- ity of 00:00: [place] 00 [facility] Meloxica Propensi Active Other - See 2014-06 Seizures Univers m ty to comments 2- ity of adverse 00:00: [place] reaction 00 [facility] Nsaids Propensi Active Anaphylaxis 2014-06 Uni vers (Non-Stepan ty to 2- ity of roidal adverse 00:00: [place] Anti-Inf reaction 00 Medica l lammator s Branch y Drug) Nalbuphi Propensi Active Anaphylaxis 2014-06 U nivers ne Hcl ty to 2- ity of adverse 00:00: [place] reaction Medical [facility] Vistaril Propensi Active Extra 2014-06 Univer s Im (Hcl ty to pyramidal -23 ity of Salt) adverse effects 00:00: [place] [...] 2-23 ity of SALT) 00:00: [place] 00 [facility] [id number] Drug Active throat Common allergy [facility] pregabal pregabal Active throat Common in in [facility] [id number] Drug Active throat Common allergy [facility] etodolac etodolac Active throat Common [facility] ibuprofe ibuprofe Active throat Common n n [facility] meloxica meloxica Active seizure Commo n m m [facility] hydroxyz hydroxyz Active seizure Commo n ine ine [facility] Social History Social Habit Start Date Stop Date Quantity Comments Source Sex Assigned At Common Sp julio césar - [facility] History of Common [facility] - Tobacco Use [facility] Alcohol intake 2020-11-26 2020-11-26 0 /d University of 00:00:00 00:00:00 [facility] Tobacco Comment 2020-11-21 2020-11-21 stopped Universit y of 00:00:00 00:00:00 02/22/2013 [facility] Tobacco use and 2015-06-09 2015-06-09 Never used Universit y of exposure 00:00:00 00:00:00 [facility] Smoking Status Start Date Stop Date Source Never Smoker [facility] Former smoker 2015-06-09 00:00:00 2015-06-09 00:00:00 Universi ty of [facility] Medications Ordered Filled Start Stop Current Ordering Indication Dosage Frequency Signature Comments Components Source Medication Medication Date Date Medication? Clinician (SIG) Name Name Bupivicaine Bupivicaine No 2.5mg Common [place] Columbia 10-06 Spirit 00:00: - [facility] Kenalog Kenalog No 40mg Common (Triamcinol (Triamcinol 10-06 S pirit one) one) 00:00: - [facility] methylPREDN methylPREDN No methylPRED ISolone 4 ISolone 4 1-11 NISolone 4 MG MG 00:00: MG 00 Synvisc Synvisc 2020-06 No 16mg Common 2-16 Spirit 00:00: - [facility] Synvisc Synvisc 2020-06 No 16mg Common 2-09 Spirit 00:00: - [facility] Synvisc Synvisc 2020-06 No 16mg Common 2- Spirit 00:00: - [facility] Xarelto 20 Xarelto 20 2020-06 No 1{table QD Xarelto 20 MG MG 0- t_with_ MG 00:00: food} 00 clonazePAM Yes 1mg Take 1 mg Un raffi (KLONOPIN) 6-15 by mouth ity o f 1 mg tablet 13:28: as needed. [place] [address] Medical Branch metoprolol Yes 25mg Take 25 mg U nivers tartrate 6-15 by mouth ity of (LOPRESSOR) 13:28: [place]. [place] 25 mg 31 Medical tablet Branch dicyclomine Yes 20mg Take 20 mg Univers 20 mg 6-15 by mouth ity of tablet 13:28: daily. [place] [address] Medical Branch FLUoxetine Yes 40mg Take 40 mg U nivers (PROZAC) 40 6-15 by mouth ity of mg capsule 13:28: daily. [place] [address] Medical Branch OLANZapine Yes 2.5mg Take 2.5 Un raffi 2.5 mg 6-15 mg by ity of tablet 13:28: mouth 2 [place] [address] (two) Medical times Branch daily. desonide Yes APPLY TO Unive rs 0.05 % 1-18 THE ity of cream 00:00: AFFECTED [place] [address] AREA TWICE Medical DAILY Branch SPARINGLY AND RUB GENTLY Metoprolol Metoprolol Yes Nirmal 1 tablet Common Tartrate Tartrate [place] with food S pirit [facility] Dicyclomine Dicyclomine Yes Nirmal TAKE 1 Common HCl HCl [place] TABLET BY [facility] MOUTH - [facility] TWICE St DAILY [facility] Premarin Premarin Yes Nirmal 1 tablet C ommon [facility] Hydrochloro Hydrochloro Yes Nirmal 1 tablet Common thiazide thiazide [place] in the Spir it morning [facility] Adderall Adderall Yes Nirmal 1 tablet C ommon [facility] Lansoprazol Lansoprazol Yes Nirmal 1 capsule Common e e Hancock [facility] Clonazepam Clonazepam Yes Nirmal 1 tablet Common Hancock [facility] Duloxetine Duloxetine Yes Nirmal TK ONE C Common HCl HCl [place] PO BID [facility] Xarelto Xarelto No Xarelto Starter Starter Starter Pack 15 & Pack 15 & Pack 15 & 20 MG 20 MG 20 MG ALPRAZolam ALPRAZolam No 1{table BID ALPRAZolam 0.5 MG 0.5 MG t} 0.5 MG FLUoxetine FLUoxetine No 1{capsu QD FLUoxetine HCl 60 MG HCl 60 MG le} HCl 60 MG OLANZapine OLANZapine No OLANZapine 5 MG 5 MG 5 MG Metoprolol Metoprolol No 1{table BID Metoprolol Tartrate 50 Tartrate 50 t_with_ Tartrate MG MG food} 50 MG clonazePAM clonazePAM No 1{table clonazePAM 1 MG 1 MG t} 1 MG Omeprazole Omeprazole No Omeprazole 40 MG 40 MG 40 MG Xanax 0.5 Xanax 0.5 No 1{table BID Xanax 0.5 MG MG t} MG FLUoxetine FLUoxetine No QD FLUoxetine HCl 20 MG HCl 20 MG HCl 20 MG methylPREDN methylPREDN No methylPRED ISolone 4 ISolone 4 NISolone 4 MG MG MG Dicyclomine Dicyclomine No 1{table Dicyclomin HCl 20 MG HCl 20 MG t} e HCl 20 MG Adderall 30 Adderall 30 No BID Adderall MG MG 30 MG PROzac PROzac No PROzac Breztri Breztri No Breztri Aerosphere Aerosphere Aerosphere Dexilant Dexilant No Dexilant Immunizations Ordered Immunization Filled Immunization Date Status Commen ts Source Name Name David Hernandez 2021-03-26 Completed Common Spirit 09:44:00 [facility] Pneumovax (PPSV23) Pneumovax (PPSV23) 2020-03-20 Completed Common Spirit 11:22:00 [facility] David single dose David single dose 2020-03-20 Completed Common Spirit 11:21:00 [facility] Procedures This patient has no known procedures. Encounters Start End Encounter Admission Attending Care Care Encounter Source Date/Time Date/Time Type Type Clinicians Facility Department ID 2022-01-06 Outpatient Hancock, [facility] [id number] Common 13:28:00 Nirmal [facility] 2021-11-02 [facility] [id number] Common 09:01:18 Nirmal [facility] 2021-09-21 [facility] [id number] Common 13:05:01 Nirmal [facility] 2021-07-29 [facility] [id number] Common 10:19:01 Nirmal [facility] 2021-07-08 [facility] [id number] Common 14:39:04 Nirmal [facility] 2021-07-08 [facility] [id number] Common 14:11:57 Nirmal [facility] 2021-07-08 Out[facility] [place], [facility] [id number] Common 14:09:54 Nirmal [id number] [facility] 2021-07-08 [facility] [place] [id number] Common 12:46:03 Nirmal 76140 [facility] 2021-07-08 [facility] [place], [facility] [id number] Common 12:36:17 Nirmal 22863 [facility] 2021-07-08 [facility], [facility] [id number] Common 12:17:58 Nirmal 26237 [facility] 2021-07-08 Outpatient H[place], [facility] [id number] Common 11:28:21 Nirmal 75705 [facility] 2021-07-08 Outpatient [place], [facility] [id number] Common 11:18:20 Nirmal 71276 [facility] 2021-07-08 Outpatient [place], [facility] [id number] Common 11:13:47 Nirmal 87161 [facility] 2021-07-08 Outpatient [place], [facility] [id number] Common 11:09:58 Nirmal 95638 [facility] 2021-07-08 Outpatient [place], [facility] [id number] Common 11:08:14 Nirmal 55831 [facility] 2021-04-13 Outpatient Azam BSES [facility] GIChristopher [id number] Univers 11:39:26 [facility] 2021-04-12 Outpatient Azam BESS [facility] GIChristopher [id number] Univers 23:35:55 [facility] 2021-04-11 Outpatient Azam BESS [facility] GIChristopher [id number] Univers 21:31:44 [facility] 2022-03-09 2022-03-09 (TEL) STLMLC ST[facility] [id number] Co mmon 00:00:00 00:00:00 [facility] 2022-02-03 2022-02-03 ambulatory STLMLC ST[facility] [id number] Common 00:00:00 00:00:00 [facility] 2022-01-08 2022-01-08 ambulatory STLMLC ST[facility] [id number] Common 00:00:00 00:00:00 [facility] 2022-01-05 2022-01-05 ambulatory STLMLC STLMLC [id number] Common 00:00:00 00:00:00 [facility] 2021-12-07 2021-12-07 ambulatory STLMLC STL[facility]C [id number] Common 00:00:00 00:00:00 [facility] 2021-12-02 2021-12-02 ambulatory STLMLC STL[facility]C [id number] Common 00:00:00 00:00:00 [facility] 2021-10-06 2021-10-06 ambulatory STLMLC STL[facility] [id number] Common 00:00:00 00:00:00 [facility] 2021-09-07 2021-09-07 ambulatory STLMLC ST[facility] [id number] Common 00:00:00 00:00:00 [facility] 2021-08-13 2021-08-13 ambulatory STLMLC ST[facility] [id number] Common 00:00:00 00:00:00 [facility] 2021-07-31 2021-07-31 ambulatory STLMLC ST[facility] [id number] Common 00:00:00 00:00:00 [facility] 2021-07-30 2021-07-30 ambulatory STLMLC STL[facility]C [id number] Common 00:00:00 00:00:00 [facility] 2021-07-19 2021-07-19 Rob Bess [facility] [id number] Univers 00:00:00 00:00:[address] [facility] [id number] it y of CLEAR [id number] [facility] [place] [id number] [address] ([facility]) 2021-07-06 2021-07-06 ambulatory STLMLC STLMLC [id number] Common 00:00:00 00:00:00 [facility] 2021-07-06 2021-07-06 ambulatory STLMLC STLMLC [id number] Common 00:00:00 00:00:00 [facility] 2021-07-03 2021-07-03 ambulatory STLMLC STLMLC [id number] Common 00:00:00 00:00:00 [facility] 2021-06-23 2021-06-23 ambulatory STLMLC STLMLC [id number] Common 00:00:00 00:00:00 [facility] 2021-06-22 2021-06-22 ambulatory STLMLC STLMLC [id number] Common 00:00:00 00:00:00 [facility] 2021-05-28 2021-05-28 ambulatory STLMLC STLMLC [id number] Common 00:00:00 00:00:00 [facility] 2021-05-21 2021-05-21 ambulatory STLMLC STLMLC [id number] Common 00:00:00 00:00:00 [facility] 2021-04-28 2021-04-28 ambulatory STLMLC STL[facility]C [id number] Common 00:00:00 00:00:00 [facility] 2021-04-27 2021-04-27 ambulatory STLMLC STLMLC [id number] Common 00:00:00 00:00:00 [facility] 2021-04-24 2021-04-24 ambulatory STLMLC STLMLC [id number] Common 00:00:00 00:00:00 [facility] 2021-04-07 2021-04-07 Outpatient STLMLC ST[facility] [id number] Common 00:00:00 00:00:00 [facility] 2021-04-02 2021-04-02 Outpatient STLMLC ST[facility] [id number] Common 00:00:00 00:00:00 [facility] 2021-03-26 2021-03-26 Outpatient STLMLC STL[facility]C [id number] Common 00:00:00 00:00:00 [facility] 2021-03-03 2021-03-03 Outpatient STLMLC STL[facility]C [id number] Common 00:00:00 00:00:00 [facility] 2021-02-27 2021-02-27 Outpatient STLMLC STLMLC [id number] Common 00:00:00 00:00:00 [facility] 2021-02-25 2021-02-25 Outpatient STLMLC STLMLC [id number] Common 00:00:00 00:00:00 [facility] 2021-01-21 2021-01-21 Outpatient STLMLC STL[facility]C [id number] Common 00:00:00 00:00:00 [facility] 2021-01-19 2021-01-19 Outpatient STLMLC STLMLC [id number] Common 00:00:00 00:00:00 [facility] 2021-01-16 2021-01-16 Outpatient [facility] [id number] Univers 11:30:00 11:30:[id number] [facility] 2021-01-16 2021-01-16 Outpatient R [facility] [id number] Univers 11:30:00 11:30:00 [facility] 2021-01-14 2021-01-14 Outpatient R [facility] [id number] Univers 08:50:00 08:50:00 [id number] [facility] 2021-01-13 2021-01-13 Outpatient R [facility] [id number] Univers 07:25:00 07:25:00 [id number] [facility] 2020-12-24 2020-12-24 Outpatient STLMLC ST[facility] [id number] Common 00:00:00 00:00:00 [facility] 2020-12-24 2020-12-24 Outpatient STLMLC ST[facility] [id number] Common 00:00:00 00:00:00 [facility] 2020-12-24 2020-12-24 Outpatient STLMLC ST[facility] [id number] Common 00:00:00 00:00:00 [facility] 2020-12-19 2020-12-19 Outpatient STLMLC ST[facility] [id number] Common 00:00:00 00:00:00 [facility] 2020-12-18 2020-12-18 Outpatient STLMLC ST[facility] [id number] Common 00:00:00 00:00:00 [facility] 2020-11-25 2020-11-25 [facility] [id number] 09:18:00 13:13:00 Encounter [facility] [id number] Clear [id number] Jarvis [id number] Hospital 049 ([facility]) 2020-11-25 2020-11-25 Surgery [place] [id number] 11:00:00 12:14:00 Health [id number] Clear [id number] Jarvis [id number] Hospital 020 ([facility]) 2020-11-25 2020-11-25 Orders Doctor RAY [id number] 00:00:00 00:00:00 Only Unassigned, SUSHILA [id number] [place] [facility] [id number] [id number] 2020-11-25 2020-11-25 Prep For Maria AlejandraRAY [id number] 00:00:00 00:00:00 Surgery Nivia CONTI [id number] [facility] [id number] [id number] 2020-11-25 2020-11-25 Refill Maria Alejandra, [facility] [id number] 00:00:00 00:00:00 [facility] [id number] Clear [id number] Jarvis [id number] [facility] 049 ([facility]) 2020-11-25 2020-11-25 Refill Maria Alejandra, [facility] [id number] 00:00:00 00:00:00 [facility] [id number] Clear [id number] Jarvis [id number] Hospital 049 ([facility]) 2020-11-24 2020-11-24 Outpatient R [facility] [id number] [facility] 07:55:00 07:55:00 [id number] [facility] 2020-11-21 2020-11-21 Outpatient R [facility] [id number] [facility] 12:15:00 12:15:00 [id number] [facility] 2020-11-19 2020-11-19 Outpatient R [facility] [id number] Univers 13:30:00 13:30:00 [id number] [facility] 2020-11-14 2020-11-14 Outpatient STL[facility]C ST[facility] [id number] Common 00:00:00 00:00:00 [facility] 2020-11-12 2020-11-12 Outpatient STLMLC STLMLC [id number] Common 00:00:00 00:00:00 [facility] 2020-11-03 2020-11-03 Prep For RAY Bess [id number] 00:00:00 00:00:00 Surgery Nivia CONTI [id number] [id number] 2020-10-31 2020-10-31 Telephone MESHA Bess [id number] 00:00:00 00:00:00 Nivia SHAFFER [id number] [facility] 4.2.7.2.686 [place] AT [id number] [place] [address] [place] [address] 2020-10-24 2020-10-24 Outpatient [facility] [id number] Common 00:00:00 00:00:00 [facility] 2020-10-15 2020-10-15 Outpatient STLMLC STL[facility]C [id number] Common 00:00:00 00:00:00 [facility] 2020-07-23 2020-07-23 Laboratory Only, Shelbie [facility] [id number] 11:51:15 12:06:15 Only Test [place] [id number] [place] 4.2.7.2.686 [place] [id number] 2020-07-23 2020-07-23 Outpatient [facility] [id number] Univers 11:00:00 11:00:00 [id number] [facility] 2020-07-23 2020-07-23 Outpatient R [facility] [id number] Univers 11:00:00 11:00:00 [facility] 2020-07-23 2020-07-23 Orders Doctor BELL [id number] 00:00:00 00:00:00 Only Unassigned, SUSHILA [id number] [place] [id number] 2020-07-21 2020-07-21 Outpatient R [facility] [id number] Univers 08:35:00 08:35:00 [id number] [facility] 2020-07-18 2020-07-18 Outpatient R [facility] [id number] Univers 07:25:00 07:25:00 [id number] [facility] 2020-07-18 2020-07-18 Outpatient [facility] [id number] Common 00:00:00 00:00:00 [facility] 2020-07-17 2020-07-17 Outpatient R [facility] [id number] Univers 08:35:00 08:35:00 [id number] [facility] 2020-07-15 2020-07-15 Office [facility] [id number] 13:45:51 14:15:51 [facility] [id number] [facility] [id number] [place] AT [id number] MARYSOL Jaida ROMAN 2020-07-15 2020-07-15 [facility] [id number] Univers 13:45:00 13:45:00 NIVIA [id number] [facility] 2020-07-15 2020-07-15 [facility] [id number] Univers 13:45:00 13:45:00 [facility] 2020-06-18 2020-06-18 Outpatient STLMLC ST[facility] [id number] Common 00:00:00 00:00:00 [facility] 2020-06-17 2020-06-17 [facility] [id number] Univers 08:30:00 08:30:00 JOE [id number] ity o f [facility] 2020-06-17 2020-06-17 [facility] [id number] Univers 08:30:00 08:30:00 JOE aisha andrews [facility] 2020-06-09 2020-06-09 Outpatient R [facility] [id number] Univers 09:00:00 09:00:00 [facility] 2020-06-09 2020-06-09 Outpatient R [facility] [id number] Univers 08:00:00 08:00:00 [id number] [facility] 2020-05-15 2020-05-15 Outpatient STLMLC ST[facility] [id number] Common 00:00:00 00:00:00 [facility] 2020-05-13 2020-05-13 Outpatient R [facility] [id number] Univers 09:00:00 09:00:00 JOE ingelisseth jarrett [facility] 2020-05-13 2020-05-13 [facility] [id number] Univers 09:00:00 09:00:00 JOE leonard luiza [facility] 2020-04-17 2020-04-17 Outpatient STLMLC ST[facility] [id number] Common 00:00:00 00:00:00 [facility] 2020-04-11 2020-04-11 Outpatient STLMLC [facility] [id number] Common 00:00:00 00:00:00 [facility] 2020-04-08 2020-04-08 Outpatient ST[facility]MLC [facility] [id number] Common 00:00:00 00:00:00 [facility] 2020-03-20 2020-03-20 Outpatient ST[facility]MLC ST[facility] [id number] Common 00:00:00 00:00:00 [facility] 2019-12-19 2019-12-19 [id number] Common 10:45:00 10:45:00 [employer] [address] [facility] 2019-12-19 2019-12-19 [facility] [id number] Common 10:00:00 10:00:00 [employer] [address] [facility] 2019-12-03 2019-12-03 [facility] [id number] Common 10:17:00 10:17:[address] [facility] 2019-12-03 2019-12-03 [facility] [id number] Common 09:59:00 09:59:[address] [facility] 2019-11-29 2019-11-29 [facility] [id number] Common 09:45:00 09:45:[address] [facility] 2019-11-13 2019-11-13 [facility] [id number] Common 11:17:00 11:17:[address] [facility] [address] [facility] 2019-11-06 2019-11-06 [facility] [id number] Common 15:08:00 15:08:[address] [facility] 2019-11-01 2019-11-01 [facility] [id number] Common 16:03:00 16:03:[address] [facility] 2019-10-31 2019-10-31 [facility] [id number] Common 09:15:00 09:15:[address] [facility] 2019-10-01 2019-10-01 [facility] [id number] Common 10:00:00 10:00:[address] [facility] 2019-08-27 2019-08-27 [facility] [id number] Common 14:00:00 14:00:[address] [facility] 2019-07-30 2019-07-30 [facility] [id number] Common 11:00:00 11:00:[address] [facility] 2019-07-18 2019-07-18 Outpatient ANETA GHOSH [id number] [place] 01:45:00 01:45:00 [place] [id number] da [facility] 2019-07-03 2019-07-03 Outpatient R SHERWIN NASH [facility] [id number] Univers 00:00:00 00:00:00 SHERWIN NASH [id number] [facility] Results This patient has no known results.
[2022-03-13] MEDS ORDERED: ADENOSINE 6 MG/ 2ML VIAL IV ONE ×2 (13:21→13:47)
[2022-03-13] MEDS ORDERED: METOPROLOL TARTRATE 5 MG/5 ML INJ IV ONE (13:21)
[2022-03-13] MEDS ORDERED: NA CHLORIDE 0.9% 1,000 ML ONE (13:21)
[2022-03-13] MEDS ORDERED: METOPROLOL TAR 50 MG TAB ONE (13:29)
[2022-03-13 14:19] LABS: Absolute Lymphocytes (CBC) 0.9 K/uL (0.7-4.9); Hematocrit 34.7 % (36.0-45.0); Lymphocytes % 12.1 % (15.3-44.8); MCV 91.6 fL (80-100); MPV 7.7 fL (7.6-11.3); RBC Red Blood Cell Count 3.79 M/uL (3.86-4.86)
[2022-03-13 14:21] LABS: Protime INR 1.22
--- NOTE | 2022-03-13 14:40 | RAD REPORT ---
EXAM DESCRIPTION: RAD - Chest Single View - 03/13/2022 2:32 pm CLINICAL HISTORY: SOB COMPARISON: Portable 04/27/2021 TECHNIQUE: AP portable chest image was obtained 03/13/2022 2:32 pm . FINDINGS: No peripheral mass or consolidation. No failure or volume overload findings. Resuscitation or monitoring pads overlie the chest. Heart and vasculature are normal. No measurable pleural effusi on and no pneumothorax. No acute bony abnormality seen. No acute aortic findings suspected. IMPRESSION: No acute cardiopulmonary process.
[2022-03-13 14:42] LABS: ALT/SGPT 28 U/L (12-78); AST/SGOT 27 U/L (15-37); Albumin 3.7 g/dL (3.4-5.0); Alkaline Phosphatase 138 U/L (45-117); BUN Blood Urea Nitrogen 32 mg/dL (7-18); Bicarbonate 19 mmol/L (21-32); Bilirubin Total 0.3 mg/dL (0.2-1.0); Glomerular Filtration Rate 36 ml/min (=/>90); Glucose Level 135 mg/dL (74-106); Magnesium 1.9 mg/dL (1.8-2.4); NT PRO-BNP 971 pg/mL (<125); Potassium 3.3 mmol/L (3.5-5.1); Protein, Total 7.6 g/dL (6.4-8.2); Sodium Level 139 mmol/L (136-145)
[2022-03-13 14:42] LABS: SARS-CoV-2 Antigen Rapid Res Negative (Negative)
[2022-03-13 14:49] LABS: Bilirubin Direct < 0.1 mg/dL (0-0.2)
--- NOTE | 2022-03-13 15:43 | ER ---
Nurse's Notes [facility] Name: Martha Pradhan Age: 61 yrs Sex: Female : 1960 Arrival Date: 03/13/2022 Time: 13:08 Bed 6 Private MD: Nirmal Hancock Diagnosis: Supraventricular tachycardia;Dehydration Presentation: 03/13 13:03 Chief complaint: Patient states: she woke up with trouble breathing this morning. Pt mb9 states "I feel like I'm going to pass out.". 13:03 Coronavirus screen: At this time, the client does not indicate any symptoms associated mb9 with coronavirus-19. Ebola Screen: No symptoms or risks identified at this time. Initial Sepsis Screen: Does the patient meet any 2 criteria? RR > 20 per min. HR > 90 bpm. Yes Does the patient have a suspected source of infection? No. Patient's initial sepsis screen is negative. 13:03 Method Of Arrival: Ambulatory mb9 13:03 Risk Assessment: Do you want to hurt yourself or someone else? Patient reports no mb9 desire to harm self or others. 13:03 Onset of symptoms was March 13, 2022. mb9 13:03 Acuity: ROSALBA 1 mb9 Triage Assessment: 13:03 General: Appears distressed, uncomfortable. Respiratory: Respiratory: Reports shortness mb9 of breath labored breathing Onset: The symptoms/episode began/occurred this morning. 13:03 General: Behavior is cooperative, appropriate for age. mb9 13:56 Pain: Denies pain. mb9 Historical: - Allergies: 13:03 haloperidol lactate; mb9 13:03 hydroxyzine HCl; mb9 13:03 Hydroxyzine Pamoate; mb9 13:03 Ibuprofen; mb9 13:03 meloxicam; mb9 13:03 nalbuphine HCl; mb9 13:03 Lyrica; mb9 13:03 Naproxen; mb9 13:03 NSAIDS (Non-Steroidal Anti-Inflammatory Drug); mb9 13:03 Nubain; mb9 13:03 Risperdal; mb9 13:03 Vistaril; mb9 - Home Meds: 13:03 metoprolol tartrate 50 mg Oral tab 1 tab 2 times per day [Active]; dicyclomine 20 mg mb9 Oral tab 1 tab daily [Active]; olanzapine Oral 1 tab once daily [Active]; Prozac 40 mg Oral cap 1 cap once daily [Active]; - PMHx: 13:03 Tachycardia; ADD/ADHD; Anxiety; Arthritis; bleeding ulcers; Chronic pain; ULCER; mb9 Osteoporosis; Irritable bowel syndrome; GERD; Back pain; PE; restless leg syndrome; - PSHx: 13:03 Appendectomy; hysterectomy; left clavicle repair; mb9 - Immunization history:: Adult Immunizations unknown. - Social history:: Smoking status: . Screenin:03 Abuse screen: Denies threats or abuse. Nutritional screening: No deficits noted. mb9 Tuberculosis screening: No symptoms or risk factors identified. Fall Risk IV access (20 points). Gait- Impaired (20 pts.). Assessment: 13:05 General: Appears distressed, uncomfortable, Behavior is cooperative. Pain: Denies pain. mb9 Neuro: Level of Consciousness is awake, alert, obeys commands, Oriented to person, place, time, situation, Appropriate for age Insurance Claims Clerk are equal bilaterally Gait is unsteady, Pupils are PERRLA. Cardiovascular: Heart tones S1 S2 present Rhythm is SVT. Respiratory: Airway is patent Respiratory effort is labored, Respiratory pattern is tachypnea Pt states SOB started suddenly this morning Breath sounds are clear bilaterally. 13:05 Cardiovascular: Reports lightheadedness, palpitations, shortness of breath, dizziness. mb9 GI: No signs and/or symptoms were reported involving the gastrointestinal system. : No signs and/or symptoms were reported regarding the genitourinary system. EENT: No signs and/or symptoms were reported regarding the EENT system. Derm: Skin is pink, warm \\T\\ dry. Musculoskeletal: Reports difficulty walking. 13:43 Neuro: Level of Consciousness is awake, alert, obeys commands, Oriented to person, mb9 place, time, situation, Appropriate for age Insurance Claims Clerk are. Cardiovascular: Reports lightheadedness, dizziness. 13:43 Cardiovascular: Heart tones S1 S2 present Rhythm is sinus tachycardia. Respiratory: mb9 Airway is patent Respiratory effort is unlabored, Respiratory pattern is regular, symmetrical, Breath sounds are clear bilaterally. Derm: Skin is pink, warm \\T\\ dry. 14:15 Reassessment: Pt sitting up in bed. Pt states she feels better. Neuro: Level of mb9 Consciousness is awake, alert, obeys commands, Oriented to person, place, time, situation, Appropriate for age Insurance Claims Clerk are equal bilaterally Pupils are PERRLA. Cardiovascular: Reports dizziness Heart tones S1 S2 present Rhythm is sinus rhythm. Respiratory: Airway is patent Respiratory effort is even, unlabored, Respiratory pattern is regular, symmetrical. Derm: Skin is pink, warm \\T\\ dry. 15:30 Cardiovascular: Heart tones S1 S2 present Rhythm is sinus rhythm. Respiratory: Airway mb9 is patent Respiratory effort is even, unlabored, Breath sounds are clear bilaterally. Derm: Skin is pink, warm \\T\\ dry. 17:00 Pain: Denies pain. Neuro: Level of Consciousness is awake, alert, obeys commands, mb9 Oriented to person, place, time, situation, Appropriate for age Insurance Claims Clerk are equal bilaterally Pupils are PERRLA. Cardiovascular: Heart tones S1 S2 present Rhythm is sinus rhythm. 17:00 Respiratory: Airway is patent Respiratory effort is even, unlabored, Respiratory mb9 pattern is regular, symmetrical. Derm: Skin is pink, warm \\T\\ dry. 18:00 Reassessment: Pt states she is feeling anxious. Informed provider. mb9 18:20 Reassessment: Pt appears comfortable, sitting up in bed, and talking on phone. Pain: mb9 Denies pain. Neuro: Level of Consciousness is awake, alert, obeys commands, Oriented to person, place, time, situation, Appropriate for age. Cardiovascular: Heart tones S1 S2 present Rhythm is sinus rhythm. Respiratory: Airway is patent Respiratory effort is even, unlabored, Respiratory pattern is regular, symmetrical, Pt denies SOB Breath sounds are clear bilaterally. Derm: Skin is pink, warm \\T\\ dry. 19:13 Pain: Denies pain. Neuro: Level of Consciousness is awake, alert, obeys commands, mb9 Oriented to person, place, time, situation, Appropriate for age Insurance Claims Clerk are equal bilaterally Speech is normal, Pupils are PERRLA. Cardiovascular: Denies shortness of breath, Heart tones S1 S2 present Rhythm is sinus rhythm. Respiratory: Airway is patent Respiratory effort is even, unlabored, Respiratory pattern is regular, symmetrical. Derm: Skin is pink, warm \\T\\ dry. 19:50 Reassessment: Patient and/or family updated on plan of care and expected duration. Pain ke1 level reassessed. Patient is alert, oriented x 3, equal unlabored respirations, skin warm/dry/pink. Patient denies pain at this time. Patient states feeling better. Vital Signs: 13:03 BP 89 / 38; Pulse 171; Resp 24; Temp 99.8; Pulse Ox 97% on R/A; Weight 63.5 kg (R); mb9 Height 5 ft. 4 in. (162.56 cm) (R); Pain 0/10; 13:38 BP 93 / 40; Pulse 170; Resp 24; Pulse Ox 97% on R/A; mb9 13:41 BP 131 / 70; Pulse 172; Resp 24; Pulse Ox 97% on R/A; mb9 13:43 BP 118 / 58; Pulse 115; Pulse Ox 98% on R/A; mb9 13:45 BP 91 / 35; Pulse 97; Resp 24; Pulse Ox 97% on R/A; mb9 14:06 BP 104 / 48; Pulse 94; Resp 19; Pulse Ox 98% on R/A; mb9 14:14 BP 107 / 48; Pulse 93; Resp 20; Pulse Ox 97% on R/A; mb9 14:37 BP 98 / 85; Pulse 98; Resp 20; Pulse Ox 99% on R/A; mb9 17:00 BP 119 / 6; Pulse 71; Resp 18; Pulse Ox 98% on R/A; Pain 0/10; mb9 18:20 BP 100 / 68; Pulse 75; Resp 18; Pulse Ox 100% on R/A; Pain 0/10; mb9 19:14 BP 109 / 64; Pulse 74; Resp 18; Pulse Ox 100% on R/A; Pain 0/10; mb9 13:03 Body Mass Index 24.03 (63.50 kg, 162.56 cm) mb9 ED Course: 13:03 Patient has correct armband on for positive identification. Placed in gown. Bed in low mb9 position. Call light in reach. Side rails up X 1. 13:03 Arm band placed on Patient placed. mb9 13:08 Patient arrived in ED. as 13:08 Nirmal Hancock DO is Private Physician. as 13:16 [facility] lisbeth 13:16 Kelli Rizzo MD is Attending Physician. [facility] 13:32 Inserted saline lock: 22 gauge in right wrist, using aseptic technique. mb9 13:32 IV discontinued, intact, bleeding controlled, Pressure dressing applied, 22 gauge to mb9 right wrist DC'd. Infiltration noted to site. 13:38 EKG done, by ED staff, reviewed by Parker WHEELER. em1 13:41 Inserted saline lock: 22 gauge in left wrist, using aseptic technique. ,using aseptic mb9 technique. done by AAC. Blood collected. Missed attempt(s): 20 gauge in left antecubital area. Bleeding controlled, band aid applied, catheter tip intact. 13:50 Annie Espinoza RN is Primary Nurse. mb9 14:01 Triage completed. mb9 14:05 Inserted saline lock: 20 gauge in right upper arm, using aseptic technique. ,using mb9 aseptic technique. done by Lizz Bhardwaj RN Accessed Using ultrasound. 14:07 Initial lab(s) drawn, by ED staff, sent to lab. mb9 14:07 EKG done, by ED staff, reviewed by Parker WHEELER , repeat. em1 14:26 SARS RAPID Sent. mb9 14:57 No provider procedures requiring assistance completed. mb9 15:42 Jun Rivera MD is Hospitalizing Provider. [facility] 20:05 Primary Nurse role handed off by Annie Espinoza RN 20:11 Ingrid Sierra RN is Primary Nurse. ke1 Administered Medications: 13:30 Drug: Metoprolol 25 mg Route: PO; vg1 13:31 Drug: Metoprolol 25 mg Route: PO; vg1 14:42 Follow up: Response: No adverse reaction mb9 14:43 Follow up: Response: No adverse reaction mb9 13:32 Drug: Adenosine 6 mg {Note: IV noted to be infiltrated after flushing..} Route: IVP; mb9 Site: right wrist; 13:32 Follow up: Response: No change in condition mb9 13:41 Drug: Adenosine 6 mg Route: IVP; Site: left wrist; mb9 13:43 Follow up: Response: No change in condition mb9 13:42 Drug: Metoprolol 5 mg Route: IVP; Site: left wrist; mb9 14:00 Follow up: Verbal order to hold the second and third dose mb9 13:43 Drug: Adenosine 12 mg Route: IVP; Site: left wrist; mb9 13:43 Follow up: Response: Cardiac rhythm changed mb9 15:03 Drug: NS 0.9% 500 ml Route: IV; Rate: bolus; Site: left wrist; aa5 16:00 Follow up: IV Status: Completed infusion mb9 18:18 Drug: XANax (alprazolam) Tablet 1 mg Route: PO; mb9 18:47 Follow up: Response: No adverse reaction mb9 18:18 Drug: Potassium Effervescent Tablet 50 mEq Route: PO; mb9 18:47 Follow up: Response: No adverse reaction mb9 20:15 Drug: NS 0.9% 500 ml Route: IV; Rate: bolus; Site: right wrist; vc1 Medication: 13:03 VIS not applicable for this client. mb9 Intake: Outcome: 15:43 Decision to Hospitalize by Provider. lisbeth 21:10 Patient left the ED. tw5 Signatures: Parker Garg PA PA jmm Martinez, Amelia as Martinez, Eric em1 Lucina Caceres, RN RN aa5 Shira Morocho RN RN [email or web address] Trinh Recinos Tiffany tw5 Madai Shin RN RN 1 Ingrid Sierra RN RN ke1 Annie Espinoza, RN RN mb9 Corrections: (The following items were deleted from the chart) 14:07 14:04 Inserted saline lock: 22 gauge in left wrist, using aseptic technique. ,using mb9 aseptic technique. done by AAC. Blood collected. Missed attempt(s): 20 gauge in left antecubital area. Bleeding controlled, band aid applied, catheter tip intact. mb9 14:07 14:05 Inserted saline lock: 20 gauge in right upper arm, using aseptic technique. mb9 ,using aseptic technique. done by Lizz bolton 14:08 14:08 Inserted saline lock: 22 gauge in right wrist, using aseptic technique. [email or web address] mb9 14:14 13:45 BP 104 / 48; Pulse 94bpm; Resp 19bpm; Pulse Ox 98% RA; mb9 mb9 14:16 14:05 Inserted saline lock: 20 gauge in right upper arm, using aseptic technique. mb9 ,using aseptic technique. done by Lizz bolton 18:29 17:00 BP 119 / 6; Pulse 71bpm; Pulse Ox 98% RA; Temp 18F; Pain 0/10; mb9 mb9 19:13 18:18 Reassessment: Pt states she is feeling anxious. Informed provider. mb9 mb9
--- NOTE | 2022-03-13 15:43 | EDPHYS ---
Physician Documentation [facility] Name: Martha Pradhan Age: 61 yrs Sex: Female : 1960 Arrival Date: 03/13/2022 Time: 13:08 Bed 6 Private MD: Shahnaz Hancockh ED Physician Kelli Rizzo HPI: 03/13 13:16 This 61 yrs old Female presents to ER via Ambulatory with complaints of Shortness Of jmm Breath. 13:16 The patient has shortness of breath at rest. Onset: The symptoms/episode began/occurred jmm this morning. Duration: The symptoms are continuous, and are steadily getting worse. The patient's shortness of breath is aggravated by nothing, is alleviated by nothing. This is a 61 year old female with a history of tachycardia, add/adhd, anxiety, that presents to the ED with complaints of shortness of breath beginning this morning. worsening throughout the day. Patient admits to not taking her morning dose of metoprolol. Patient states she takes this BID. . Historical: - Allergies: 13:03 haloperidol lactate; mb9 13:03 hydroxyzine HCl; mb9 13:03 Hydroxyzine Pamoate; mb9 13:03 Ibuprofen; mb9 13:03 meloxicam; mb9 13:03 nalbuphine HCl; mb9 13:03 Lyrica; mb9 13:03 Naproxen; mb9 13:03 NSAIDS (Non-Steroidal Anti-Inflammatory Drug); mb9 13:03 Nubain; mb9 13:03 Risperdal; mb9 13:03 Vistaril; mb9 - Home Meds: 13:03 metoprolol tartrate 50 mg Oral tab 1 tab 2 times per day [Active]; dicyclomine 20 mg mb9 Oral tab 1 tab daily [Active]; olanzapine Oral 1 tab once daily [Active]; Prozac 40 mg Oral cap 1 cap once daily [Active]; - PMHx: 13:03 Tachycardia; ADD/ADHD; Anxiety; Arthritis; bleeding ulcers; Chronic pain; ULCER; mb9 Osteoporosis; Irritable bowel syndrome; GERD; Back pain; PE; restless leg syndrome; - PSHx: 13:03 Appendectomy; hysterectomy; left clavicle repair; mb9 - Immunization history:: Adult Immunizations unknown. - Social history:: Smoking status: . ROS: 13:16 Constitutional: Negative for fever, chills, and weight loss, Cardiovascular: Negative jmm for chest pain, palpitations, and edema. 13:16 Respiratory: Positive for shortness of breath. 13:16 All other systems are negative. Exam: 13:16 Constitutional: This is a well developed, well nourished patient who is awake, alert, jmm and in no acute distress. Head/Face: atraumatic. Eyes: EOMI, no conjunctival erythema appreciated ENT: Moist Mucus Membranes Neck: Trachea midline, Supple Chest/axilla: Normal chest wall appearance and motion. 13:16 Abdomen/GI: Non distended Back: Normal ROM Skin: General appearance color normal MS/ Extremity: Moves all extremities, no obvious deformities appreciated, no edema noted to the lower extremities Neuro: Awake and alert Psych: Behavior is normal, Mood is normal, Patient is cooperative and pleasant 13:16 Cardiovascular: Rate: tachycardic, Rhythm: regular. 13:16 Respiratory: the patient does not display signs of respiratory distress, Respirations: normal, Breath sounds: are clear throughout. Vital Signs: 13:03 BP 89 / 38; Pulse 171; Resp 24; Temp 99.8; Pulse Ox 97% on R/A; Weight 63.5 kg (R); mb9 Height 5 ft. 4 in. (162.56 cm) (R); Pain 0/10; 13:38 BP 93 / 40; Pulse 170; Resp 24; Pulse Ox 97% on R/A; mb9 13:41 BP 131 / 70; Pulse 172; Resp 24; Pulse Ox 97% on R/A; mb9 13:43 BP 118 / 58; Pulse 115; Pulse Ox 98% on R/A; mb9 13:45 BP 91 / 35; Pulse 97; Resp 24; Pulse Ox 97% on R/A; mb9 14:06 BP 104 / 48; Pulse 94; Resp 19; Pulse Ox 98% on R/A; mb9 14:14 BP 107 / 48; Pulse 93; Resp 20; Pulse Ox 97% on R/A; mb9 14:37 BP 98 / 85; Pulse 98; Resp 20; Pulse Ox 99% on R/A; mb9 17:00 BP 119 / 6; Pulse 71; Resp 18; Pulse Ox 98% on R/A; Pain 0/10; 9 18:20 BP 100 / 68; Pulse 75; Resp 18; Pulse Ox 100% on R/A; Pain 0/10; mb9 19:14 BP 109 / 64; Pulse 74; Resp 18; Pulse Ox 100% on R/A; Pain 0/10; mb9 13:03 Body Mass Index 24.03 (63.50 kg, 162.56 cm) [facility] MDM: 13:16 Patient medically screened. [facility] 15:41 Data reviewed: vital signs, nurses notes, lab test result(s), radiologic studies, plain [facility] films. 03/13 13:16 Order name: Basic Metabolic Panel [facility] 03/13 13:16 Order name: CBC with Diff [facility] 03/13 13:16 Order name: LFT's [facility] 03/13 13:16 Order name: Magnesium [facility] 03/13 13:16 Order name: NT PRO-BNP [facility] 03/13 13:16 Order name: PT-INR [facility] 03/13 13:16 Order name: Troponin HS [facility] 03/13 13:21 Order name: SARS RAPID [facility] 03/13 14:21 Order name: CBC with Automated Diff; Complete Time: 14:26 EDMS 03/13 14:22 Order name: Protime (+INR); Complete Time: 14:26 EDMS 03/13 14:43 Order name: SARS-COV-2 Antigen Rapid; Complete Time: 14:50 EDMS 03/13 14:50 Order name: Basic Metabolic Panel; Complete Time: 15:00 EDMS 03/13 14:50 Order name: Liver (Hepatic) Function; Complete Time: 15:00 EDMS 03/13 14:50 Order name: Troponin High Sensitivity; Complete Time: 15:00 EDMS 03/13 13:16 Order name: XRAY Chest (1 view) [facility] 03/13 13:16 Order name: EKG; Complete Time: 13:16 [facility] 03/13 13:16 Order name: Cardiac monitoring; Complete Time: 13:56 [facility] 03/13 14:41 Order name: RAD; Complete Time: 14:50 EDMS 03/13 14:50 Order name: NT PRO-BNP; Complete Time: 15:00 EDMS 03/13 14:50 Order name: Magnesium; Complete Time: 15:00 EDMS 03/13 13:16 Order name: EKG - Nurse/Tech; Complete Time: 13:38 [facility] 03/13 13:16 Order name: IV Saline Lock; Complete Time: 13:56 [facility] 03/13 13:16 Order name: Labs collected and sent; Complete Time: 14:41 [facility] 03/13 13:16 Order name: O2 Per Protocol; Complete Time: 13:56 [facility] 03/13 13:16 Order name: O2 Sat Monitoring; Complete Time: 13:56 [facility] Administered Medications: 13:30 Drug: Metoprolol 25 mg Route: PO; vg1 13:31 Drug: Metoprolol 25 mg Route: PO; vg1 14:42 Follow up: Response: No adverse reaction mb9 14:43 Follow up: Response: No adverse reaction mb9 13:32 Drug: Adenosine 6 mg {Note: IV noted to be infiltrated after flushing..} Route: IVP; mb9 Site: right wrist; 13:32 Follow up: Response: No change in condition mb9 13:41 Drug: Adenosine 6 mg Route: IVP; Site: left wrist; mb9 13:43 Follow up: Response: No change in condition mb9 13:42 Drug: Metoprolol 5 mg Route: IVP; Site: left wrist; mb9 14:00 Follow up: Verbal order to hold the second and third dose mb9 13:43 Drug: Adenosine 12 mg Route: IVP; Site: left wrist; mb9 13:43 Follow up: Response: Cardiac rhythm changed mb9 15:03 Drug: NS 0.9% 500 ml Route: IV; Rate: bolus; Site: left wrist; aa5 16:00 Follow up: IV Status: Completed infusion mb9 18:18 Drug: XANax (alprazolam) Tablet 1 mg Route: PO; mb9 18:47 Follow up: Response: No adverse reaction mb9 18:18 Drug: Potassium Effervescent Tablet 50 mEq Route: PO; mb9 18:47 Follow up: Response: No adverse reaction mb9 20:15 Drug: NS 0.9% 500 ml Route: IV; Rate: bolus; Site: right wrist; vc1 Disposition Summary: 03/13/22 15:43 Hospitalization Ordered Hospitalization Status: Observation jm Provider: Jun Rivera Location: Telemetry/MedSur (observation) jm Condition: Stable jmm Problem: new jmm Symptoms: are unchanged jmm Bed/Room Type: Standard [facility] Room Assignment: 413(03/13/22 19:49) cg Diagnosis - Supraventricular tachycardia jmm - Dehydration jmm Forms: - Medication Reconciliation Form jmm - SBAR form jmm Signatures: Dispatcher [employer] EDParker Mccabe PA PA jmm Calderon, Audri, RN RN aa5 Con Alas, WILD ANIMAL CARETAKER-C WILD ANIMAL CARETAKER-Cla1 Nancy Morocho RN RN cg Garcia, Victoria, RN RN vg1 Madai Shin RN RN vc1 Annie Espinoza RN RN mb9 Corrections: (The following items were deleted from the chart) 19:49 15:43 jmm cg
[2022-03-13] MEDS ORDERED: POTASSIUM 25 MEQ EFFERV TAB ONE (18:13)
[2022-03-13] MEDS ORDERED: ALPRAZOLAM 1 MG TABLET ONE (18:13)
--- NOTE | 2022-03-13 18:36 | P.HP ---
Certification for Inpatient Patient admitted to: Observation With expected LOS: <2 Midnights Patient will require the following post-hospital care: None Practitioner: I am a practitioner with admitting privileges, knowledge of patient current condition, hospital course, and medical plan of care. Services: Services provided to patient in accordance with Admission requirements found in Title 42 Section 412.3 of the Code of Federal Regulations Patient History Date of Service: 03/13/22 Reason for admission: SVT History of Present Illness: 61-year-old female with history of SVT, GERD/gastric ulcers, PTSD, previous pulmonary embolism presents the emergency department for shortness of breath, near syncope, palpitations. She reports she woke up this morning feeling this way almost passed out at home. Upon arrival to the emergency department patient was found to be in SVT with a heart rate of 171 and a blood pressure of 89/38. She was given IV adenosine, IV Lopressor, p.o. Lopressor and has since converted back to normal sinus rhythm with a rate of 75. Her other labs were significant for mild YULIA, mild hypokalemia. ED provider wishes to admit under observation for SVT. Allergies hydroxyzine HCl [From Vistaril] Allergy (Severe, Verified 06/16/20 13:03) Anaphylaxis hydroxyzine pamoate [From Vistaril] Allergy (Severe, Verified 06/16/20 13:03) Anaphylaxis nalbuphine HCl [From Nubain] Allergy (Severe, Verified 06/16/20 13:03) Anaphylaxis NSAIDS (Non-Steroidal Anti-Inflamma Allergy (Intermediate, Verified 06/16/20 13:03) Anaphylaxis haloperidol lactate [From Haldol] Allergy (Verified 06/16/20 13:03) Anaphylaxis ibuprofen [From Motrin] Allergy (Verified 06/16/20 13:03) Anaphylaxis naproxen [From Naprosyn] Allergy (Verified 06/16/20 13:03) Anaphylaxis naproxen sodium [From Aleve] Allergy (Verified 06/16/20 13:03) Anaphylaxis pregabalin [From Lyrica] Allergy (Verified 06/16/20 13:03) Anaphylaxis meloxicam [From Mobic] Adverse Reaction (Severe, Verified 06/16/20 13:03) Anaphylaxis hydroxyzine [From Vistaril] Adverse Reaction (Verified 06/16/20 13:03) muscle weakness Home Medications: Dicyclomine HCl 20 mg PO BID 11/06/19 Metoprolol Tartrate [Lopressor*] 50 mg PO BID 11/06/19 Alprazolam [Xanax] 0.5 mg PO BID 04/01/21 Dexlansoprazole [Dexilant] 60 mg PO DAILY 04/01/21 Dicyclomine [Bentyl*] 20 mg PO BID 04/01/21 Famotidine 40 mg PO DAILY 04/01/21 Fluoxetine HCl [Prozac] 2 tab PO DAILY 04/01/21 Hydrocodone 5/APAP 325 [[place] 5/325*] 1 tab PO Q6H PRN #15 tab 04/01/21 OLANZapine [Olanzapine] 0.5 mg PO BID 04/01/21 Rivaroxaban [Xarelto*] 15 mg PO BID 21 Days #42 tablet 04/01/21 - Past Medical/Surgical History Diabetic: No -: ADD/ADHD -: chronic pain syndrome -: restless leg syndrome -: bone problems -: SVT -: myofascial syndrome -: anxiety -: PTSD -: arthritis -: History of pulmonary embolism -: feet fracture -: rib fracture -: clavicle sx-plate Psychosocial/ Personal History: Patient is disabled, lives at home with her mother - Family History Father -: Cancer Notes: Parkinson's, lymph nodes Mother -: Hypertension Notes: hiatal hernia. hysterectomy - Social History Smoking Status: Former smoker Alcohol use: No CD- Drugs: No Caffeine use: Yes Place of Residence: Home Review of Systems 10-point ROS is otherwise unremarkable Respiratory: Shortness of Breath, As per HPI Cardiovascular: Palpitations, Light Headedness, As per HPI Physical Examination - Physical Exam General: Alert, In no apparent distress, Oriented x3 HEENT: Atraumatic, PERRLA, Mucous membr. moist/pink, EOMI, Sclerae nonicteric Neck: Supple, 2+ carotid pulse no bruit, No LAD, Without JVD or thyroid abnormality Respiratory: Clear to auscultation bilaterally, Normal air movement Cardiovascular: Regular rate/rhythm, Normal S1 S2 Capillary refill: <2 Seconds Gastrointestinal: Normal bowel sounds, No tenderness Musculoskeletal: No tenderness Integumentary: No rashes Neurological: Normal speech, Normal strength at 5/5 x4 extr, Normal tone, Normal affect - Studies Laboratory Data (last 24 hrs) 03/13/22 14:01: PT 13.5 H, INR 1.22 03/13/22 14:01: WBC 7.50, Hgb 11.6 L, Hct 34.7 L, Plt Count 484 H 03/13/22 14:01: Sodium 139, Potassium 3.3 L, BUN 32 H, Creatinine 1.59 H, Glucose 135 H, Magnesium 1.9, Total Bilirubin 0.3, AST 27, ALT 28, Alkaline Phosphatase 138 H Assessment and Plan - Plan Assessment: SVTresolved Hypokalemia Mild acute kidney injury History of pulmonary embolism PTSD/anxiety Plan: SVTresolved: Patient takes metoprolol 50 mg p.o. twice daily at home, she missed her dose this morning. She was given IV adenosine, IV and PE Lopressor in the emergency department she has since converted to normal sinus rhythm with a rate of 75. Her symptoms have resolved completely she denies any chest pain, shortness of breath or palpitations at this time. Blood pressure is normalized as well. We will monitor patient on telemetry at that evening continue her home metoprolol. Hypokalemia: Potassium replacement ordered now, protocol in place. Magnesium within normal limits will have magnesium protocol in place as well. Mild acute kidney injury: Baseline CR around 1.3-1.4 currently up to 1.59 Continue gentle hydration with LR throughout the evening, recheck chemistry in the morning. History of pulmonary embolism: She had a pulmonary embolism in 2020 she was taken off of Xarelto by pulmonology in June of this year. She currently denies any chest pain, shortness of breath, lower extremity swelling or other signs of DVT/PE. Initial troponin negative she is not requiring any oxygen at this time. PTSD/anxiety: Continue home medications as needed for anxiety/PTSD. DVT PPX: Heparin Code status: Full Discharge Plan: Home Plan to discharge in: 24 Hours - Advance Directives Does patient have a Living Will: No Does patient have a Durable POA for Healthcare: No - Code Status/Comfort Care Code Status Assessed: Yes (Full code) Critical Care: No Time Spent Managing Pts Care (In Minutes): 70
[2022-03-13] MEDS ORDERED: NA CHLORIDE 0.9% 500 ML ONE (20:12)
[2022-03-13] MEDS ORDERED: ONDANSETRON 4 MG/2 ML VIAL IV PRN (21:20)
[2022-03-13] MEDS ORDERED: ALPRAZOLAM 1 MG TABLET PO PRN (21:20)
[2022-03-13 22:04] VITALS: O2SAT 99; BMI 24.0
[2022-03-13] MEDS: METOPROLOL TAR 50 MG TAB PO SCH (22:35)
[2022-03-13] MEDS: Ringers Lactate 1,000 ML IV SCH (22:35)
[2022-03-13] MEDS: HEPARIN 5000 UNIT/ML 1 ML VIAL SQ SCH (22:36)
[2022-03-14] MEDS: Ringers Lactate 1,000 ML IV SCH (06:36)
--- NOTE | 2022-03-14 07:44 | EKG ---
Test Date: 2022-03-13 Test Time: 13:58:00 [employer] Designer: MINERVA MEASUREMENT RESULTS: Intervals: Rate: 94 AL: 150 QRSD: 84 QT: 376 QTc: 470 [place]: P: 61 AL: 150 QRS: 70 T: 19 INTERPRETIVE STATEMENTS: Normal sinus rhythm Nonspecific T wave abnormality Prolonged QT Abnormal ECG Compared to ECG 08/15/2021 20:31:38 T-wave abnormality now present Prolonged QT interval now present Sinus tachycardia no longer present Electronically Signed On 03-14-22 07:43:32 CDT by Nehemiah Mckinney
[2022-03-14 07:52] VITALS: BP 116/62; TEMP 96.5
[2022-03-14] MEDS: HEPARIN 5000 UNIT/ML 1 ML VIAL SQ SCH (09:00)
[2022-03-14] MEDS: METOPROLOL TAR 50 MG TAB PO SCH (09:15)
--- NOTE | 2022-03-14 16:26 | P.DS ---
Admission Date: 03/13/22 Discharge Date: 03/14/22 Disposition: ROUTINE DISCHARGE Discharge Condition: GOOD Reason for Admission: SVT Brief History of Present Illness: 61-year-old female with history of SVT, GERD/gastric ulcers, PTSD, previous pulmonary embolism presents the emergency department for shortness of breath, near syncope, palpitations. She reports she woke up this morning feeling this way almost passed out at home. Upon arrival to the emergency department patient was found to be in SVT with a heart rate of 171 and a blood pressure of 89/38. She was given IV adenosine, IV Lopressor, p.o. Lopressor and has since converted back to normal sinus rhythm with a rate of 75. Her other labs were significant for mild hypokalemia. ED provider wishes to admit under observation for SVT. Patient reports she has a history of low blood pressure. She has been counseled previously to monitor her blood pressure since she takes metoprolol for her heart rate. Typically runs [id number] systolic Hospital Course: Problem list Acute SVTresolved; h/o SVT Hypokalemia, mild Remote history of pulmonary embolism PTSD/anxiety Patient presented with shortness of breath, Left chest/flank pain, and palpitations. Found to be in SVT. She received IV lopressor and adenosine in the ED with improvement. Chest x-ray did not show any acute findings. Restarted on her home regimen of metoprolol and remained stable. Cardiology evaluated the patient, recommended continuing her current regimen and follow up in the office soon. No changes in medications Follow up with Dr. Mckinney Vital Signs/Physical Exam: Temp Pulse Resp BP Pulse Ox 96.5 F L 75 16 116/62 100 03/14/22 07:51 03/14/22 09:15 03/14/22 07:51 03/14/22 09:15 03/14/22 07:51 General: Alert, In no apparent distress, Oriented x3 HEENT: EOMI, Sclerae nonicteric Neck: Supple, No LAD Respiratory: Clear to auscultation bilaterally, Normal air movement Cardiovascular: No edema, Regular rate/rhythm, No murmurs Gastrointestinal: Soft and benign, Non-distended, No tenderness Neurological: Normal speech, Normal strength at 5/5 x4 extr, Normal affect Laboratory Data at Discharge: WBC Cancelled 03/14/22 05:00 Hgb Cancelled 10/02/22 05:00 Hct Cancelled 03/14/22 05:00 Plt Count Cancelled 03/14/22 05:00 PT 13.5 SECONDS (9.5-12.5) H 03/13/22 14:01 INR 1.22 03/13/22 14:01 Sodium Cancelled 03/14/22 05:00 Potassium Cancelled 03/14/22 05:00 BUN Cancelled 03/14/22 05:00 Creatinine Cancelled 03/14/22 05:00 Glucose Cancelled 03/14/22 05:00 Magnesium Cancelled 03/14/22 05:00 Total Bilirubin Cancelled 03/14/22 05:00 AST Cancelled 03/14/22 05:00 ALT Cancelled 03/14/22 05:00 Alkaline Phosphatase Cancelled 03/14/22 05:00 Home Medications: Metoprolol Tartrate [Lopressor*] 50 mg PO BID 11/06/19 Dexlansoprazole [Dexilant] 60 mg PO DAILY 04/01/21 Dicyclomine [Bentyl*] 20 mg PO BID 04/01/21 Fluoxetine HCl [Prozac] 2 tab PO DAILY 04/01/21 OLANZapine [Olanzapine] 0.5 mg PO BID 04/01/21 Alprazolam [Xanax] 2 mg PO DAILY 03/14/22 Physician Discharge Instructions: Patient presented with shortness of breath, Left chest/flank pain, and palpitati ons. Found to be in SVT. She received IV lopressor and adenosine in the ED with improvement. Chest x-ray did not show any acute findings. Restarted on her home regimen of metoprolol and remained stable. Cardiology evaluated the patient, recommended continuing her current regimen and follow up in the office soon. No changes in medications Follow up with Dr. Mckinney Followup: Nehemiah Mckinney MD [ACTIVE - CAN ADMIT] - (Call to schedule appointment.) Nirmal Hancock DO [Primary Care Provider] - (Call to schedule appointment) Time spent managing pt's care (in minutes): 45
--- NOTE | 2022-03-15 14:15 | EKG ---
Test Date: 2022-03-13 Test Time: 13:14:38 Family Sociologist: MINERVA MEASUREMENT RESULTS: Intervals: Rate: 171 [place]: QRSD: 108 QT: 268 QTc: 452 [place]: P: [place]: QRS: 72 T: 8 INTERPRETIVE STATEMENTS: Supraventricular tachycardia Nonspecific ST abnormality Abnormal ECG Compared to ECG 08/15/2021 20:31:38 ST (T wave) deviation now present Sinus tachycardia no longer present Electronically Signed On 03-15-22 14:13:46 CDT by Eddie Teran
== END 2022-03-14 10:57 | disposition home or self-care (01) ==
LOC: ER 13:03 → ERHOLD 18:31 → 4TH 20:01
PROVIDERS: ADMIT Hospitalist; ATTEND Hospitalist
DX: I47.1 Supraventricular tachycardia (principal); K21.9 Gastro-esophageal reflux disease without esophagitis; F43.10 Post-traumatic stress disorder, unspecified; E87.6 Hypokalemia; N17.9 Acute kidney failure, unspecified; Z91.14 Patient's other noncompliance with medication regimen; Z86.711 Personal history of pulmonary embolism; Z82.49 Family history of ischemic heart disease and other diseases of the circulatory system; Z87.891 Personal history of nicotine dependence; Z20.822 Contact with and (suspected) exposure to COVID-19
CPT/HCPCS: 93005 ×2; 85025; 80048; 36415; 83735; 85610; 80076; 84484; 83880; 71045; 99291; 99292; 87811; J0153 ×2; J1644; J7120 ×2; J7040; J7030; G0378 ×3

== ENCOUNTER 2022-06-11 07:13 | Emergency (ER) | payer OTHER ==
--- OUTSIDE RECORDS SUMMARY | 2022-06-11 07:22 | XMS REPORT | Continuity of Care Document ---
:[address] [facility] t Address [facility] [place] [address] Care Team Providers Name Role Phone MCNEILSOHAN Primary Care Physician Unavailable Nirmal Hancock Attending Clinician Unavailable NIVIA BESS Attending Clinician Unavailable MARIXA LEE Attending Clinician Unavailable Nivia Bess MD Attending Clinician Doctor Unassigned, [place] Attending Clinician Unavailable Only, Adc Test Attending Clinician Unavailable JOE MORALES Attending Clinician Unavailable ROGELIO Attending Clinician Unavailable SHERWIN NASH Attending Clinician Unavailable SHERWIN NASH Attending Clinician Unavailable NIVIA BESS Admitting Clinician Unavailable Nivia Bess MD Admitting Clinician ROGELIO Admitting Clinician Unavailable Payers Payer Name Policy Type Policy Number Effective Date Expiration Date S shawn [facility] [id number] 2012 2022 PLAN STAR 00:00:00 00:00:00 [facility] DUAL [id number] 2020 COMP HMO D SNP 00:00:00 [place]ID [place] [id number] 2020 00:00:[address] [facility] STAR [id number] 2013 PLUS 00:00:00 [facility] WELLMED [id number] 2020 2024 00:00:00 00:00:00 [place] [id number] 2019 Common DUAL MCR WELLMED 00:00:00 [facility] [id number] 2012 Common 00:00:00 [facility] [id number] 2012 Common 00:00:00 [facility] [id number] 2012 Common 00:00:00 [facility] [place]ARE B[place]: [id number] 2006 [employer] 00:00:00 [facility] [id number] PLAN - DUAL COMPLETE - SNP PLAN (MEDICARE REPLACEMENT HMO) [facility] [id number] 2018 COMMUNITY PLAN - 00:00:00 [facility] PLUS (MEDICAID HMO) Problems Condition Condition Condition Status Onset Resolution Last Treating Co mments Source Name Details Category Date Date Treatment Clinician Date Peptic Peptic Disease Active Overview: Univer s ulcer ulcer 6-15 Formattin ity of disease disease 00:00: g of this [place] note Medical might be Branch different from the original. Added automatic ally from request for surgery [id number] Multiple Multiple Disease Active Overview: Un raffi gastric gastric 2-02 Formattin ity o f ulcers ulcers 00:00: g of this [place] note Medical might be Branch different from the original. Added automatic ally from request for surgery [id number] Hiatal Hiatal Disease Active 2019-06 Univers hernia hernia 2-03 ity of 00:00: Medical Branch Post-op Post-op Disease Active 2015-06 Univers pain pain 0-31 ity of 00:00: Medical Branch Chronic Chronic Disease Active Univers neck pain neck pain 1-11 ity of 00:00: [place] [facility] Anxiety Anxiety Disease Active Univers disorder disorder 1-11 ity of 00:00: [place] [facility] [id number] DDD Problem Common (degenerat Spirit ceferino disc - CHI disease), [facility] [id number] Attention Problem Comm on deficit Spirit hyperactiv - CHI ity St disorder [facility] (ADHD), Medical combined Center type [id number] Panic Problem Common disorder Spirit [episodic - CHI paroxysmal St anxiety] [facility] [id number] GERD Problem Common without Spirit esophagiti - CHI s [facility] [id number] 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 [facility] [id number] +5th digit Problem Co mmon eff Spirit 03/13/20*CK - [facility]I D (chronic [facility] disease) Medical stage 3, Center GFR 30-59 ml/min [id number] Generalize Problem Com mon d anxiety Spirit disorder - CHI [facility] [id number] PTSD Problem Common (post-trau Spirit matic - CHI stress St disorder) [facility] [id number] Bilateral Problem Co mmon 102 tinnitus Spirit - CHI [facility] [id number] Current Problem Common moderate Spirit episode of - CHI major St depressive [facility] disorder Medical without Center prior episode [id number] Osteoporos Problem Com mon is, Spirit unspecifie - CHI d St osteoporos [facility] is type, Medical unspecifie Center d pathologic al fracture presence [id number] 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 - CHI with both St constipati [facility] on and Medical diarrhea Center [id number] 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 - CHI [facility] [id number] Allergic Problem Commo n rhinitis, Spirit unspecifie - CHI d St seasonalit [facility] y, Medical unspecifie Center d trigger [id number] Mixed Problem Common hyperlipid Spirit emia - CHI [facility] [id number] Stage 3a Problem Comm on chronic Spirit kidney - CHI disease [facility] Atheroscle 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 Spirit right right - CHI renal renal St artery artery [facility] [id number] 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 - CHI joints, St unspecifie [facility] d Medical osteoarthr Center itis type [id number] History of Problem Co mmon uterine Spirit cancer - CHI [facility] [id number] Chronic Problem Commo n pain Spirit syndrome - CHI [facility] 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 - CHI ncy of atheroscle St intestine [facility] [id number] Elevated Problem Comm on liver [facility] enzymes [facility] Thrombocyt Thrombocyt Problem C ommon osis osis [facility] [id number] Essential Problem Com mon thrombocyt Spirit osis [facility] Chronic Chronic Problem Common fatigue fatigue Spirit syndrome [facility] Iron Fe Problem Common deficiency deficiency Sp julio césar anemia anemia [facility] [id number] Primary Problem Comm on osteoarthr Spirit itis of - CHI left knee [facility] [id number] Primary Problem Comm on osteoarthr Spirit itis of CHI right knee [facility] Anemia in Anemia in Problem Com mon chronic chronic Spirit kidney kidney [facility] disease disease [facility] Hypercalce Hypercalce Problem C ommon shahnaz shahnaz Spirit [facility] [id number] Shoulder Problem Comm on arthritis Spirit [facility] Anemia due Anemia due Problem C ommon to blood to blood [facility] loss loss [facility] [id number] SVT Problem Common (supravent Spirit ricular - [facility] tachycardi [facility] Supraventr Supraventr Disease Active U nivers icular icular ity of dysrhythmi dysrhythmi [place] [facility] Chronic Chronic Disease Active Univers low back low back ity of pain pain [facility] Allergies, Adverse Reactions, Alerts Allergy Allergy Status Severity Reaction(s) Onset Inactive Treating Comm ents Source Name Type Date Date Clinician Haloperi Propensi Active Anaphylaxis 0 U nivers dol ty to 2-04 ity of Lactate adverse 00:00: [place] reaction Medical Branch Etodolac Propensi Active Anaphylaxis 2020-0 U nivers ty to 2-04 ity of adverse 00:00: [place] reaction [facility] HALOPERI DRUG Active Anaphylaxis Uni vers DOL INGREDI 2-04 ity of LACTATE 00:00: [facility] ETODOLAC DRUG Active Anaphylaxis Uni vers INGREDI 2-04 ity of 00:00: [facility] Pregabal Propensi Active Hallucinatio 2014-06 Univers in ty to ns 2- ity of adverse 00:00: [place] reaction [facility] PREGABAL DRUG Active Hallucinates 2014-06 Un raffi IN INGREDI 2 ity of 00:00: [place] 00 Medical Branch [...] of SALT) 00:00: [place] 00 Medical Branch [id number] Drug Active throat Common allergy closes [facility] hydroxyz hydroxyz Active seizure Commo n ine ine [facility] [id number] Drug Active throat Common allergy closes [facility] pregabal pregabal Active throat Common in in closes [facility] etodolac etodolac Active throat Common closes [facility] ibuprofe ibuprofe Active throat Common [facility] meloxica meloxica Active seizure Commo n m m [facility] Social History Social Habit Start Date Stop Date Quantity Comments Source Sex Assigned At Common Sp julio césar - [facility] History of Common Spirit - Tobacco Use [facility] Alcohol intake 2020-11-26 2020-11-26 0 /d University of 00:00:00 00:00:00 [facility] Tobacco Comment 2020-11-21 2020-11-21 stopped Universit y of 00:00:00 00:00:00 02/22/2013 [facility] Tobacco use and 2015-06-09 2015-06-09 Never used Universit y of exposure 00:00:00 00:00:00 [facility] Smoking Status Start Date Stop Date Source Never Smoker Common Spirit [facility] Former Smoker 2021-09-07 00:00:00 2021-09-07 00:00:00 Common S pirit - [facility] Medications Ordered Filled Start Stop Current Ordering Indication Dosage Frequency Signature Comments Components Source Medication Medication Date Date Medication? Clinician (SIG) Name Name Lidocaine Lidocaine 2021-06 No 10mg Com 08-01 Spirit 00:00: - CHI [facility] Eugenia Delgadilloalog 2021-06 No 40mg Common (Triamcinol (Triamcinol 2-19 S pirit one) one) 00:00: - CHI [facility] Lidocaine Lidocaine 2021-06 No 10mg Com 08-01 Spirit 00:00: - CHI [facility] Kenalog Kenalog 2021-06 No 40mg Common (Triamcinol (Triamcinol 2-19 S pirit one) one) 00:00: - CHI [facility] Lidocaine Lidocaine 2021-06 No 10mg Com 08-01 Spirit 00:00: - CHI [facility] Kenalog Kenalog 2021-06 No 40mg Common (Triamcinol (Triamcinol 2-19 S pirit one) one) 00:00: - CHI [facility] Kenalog Kenalog 2021-06 No 40mg Common (Triamcinol (Triamcinol 2-08 S pirit one) one) 00:00: - CHI [facility] Kenalog Kenalog 2021-06 No 40mg Common (Triamcinol (Triamcinol 2-08 S pirit one) one) 00:00: - CHI [facility] Kenalog Kenalog 2021-06 No 40mg Common (Triamcinol (Triamcinol 2-08 S pirit one) one) 00:00: - CHI [facility] Eugenia Kenlaurie 2021-06 No 40mg Common (Triamcinol (Triamcinol 2-08 S pirit one) one) 00:00: - CHI 00 [facility] 2021-06 No 40mg Common (Triamcinol (Triamcinol 2-08 S pirit one) one) 00:00: - CHI 00 [facility] Eugenia [facility] 2021-06 No 40mg Common (Triamcinol (Triamcinol 1-09 S pirit one) one) 00:00: - CHI 00 [facility] Eugenia [facility] 2021-06 No 40mg Common (Triamcinol (Triamcinol 1-09 S pirit one) one) 00:00: - CHI 00 [facility] 2021-06 No 40mg Common (Triamcinol (Triamcinol 1-09 S pirit one) one) 00:00: - CHI 00 [facility] Eugenia [facility] 2021-06 No 40mg Common (Triamcinol (Triamcinol 1-09 S pirit one) one) 00:00: - CHI 00 [facility] Eugenia [facility] 2021-06 No 40mg Common (Triamcinol (Triamcinol 1-09 S pirit one) one) 00:00: - CHI 00 [facility] Eugenia Kenlaurie 2021-06 No 40mg Common (Triamcinol (Triamcinol 1-09 S pirit one) one) 00:00: - CHI 00 [facility] Eug[facility] 2021-06 No 40mg Common (Triamcinol (Triamcinol 1-09 S pirit one) one) 00:00: - CHI 00 [facility] 2021-06 No 40mg Common (Triamcinol (Triamcinol 0-12 S pirit one) one) 00:00: - CHI 00 [facility] Eugenia Kenalog 2021-06 No 40mg Common (Triamcinol (Triamcinol 0-12 S pirit one) one) 00:00: - CHI 00 [facility] Eugenia 2021-06 No 40mg Common (Triamcinol (Triamcinol 0-12 S pirit one) one) 00:00: - CHI 00 [facility] Eugenia Bello 2021-06 No 40mg Common (Triamcinol (Triamcinol 0-12 S pirit one) one) 00:00: - CHI 00 [facility] Eugenia Bello 2021-06 No 40mg Common (Triamcinol (Triamcinol 0-12 S pirit one) one) 00:00: - CHI 00 [facility] Eugenia Bello 2021-06 No 40mg Common (Triamcinol (Triamcinol 0-12 S pirit one) one) 00:00: - CHI 00 [facility] Eugenia Bello 2021-06 No 40mg Common (Triamcinol (Triamcinol 0-12 S pirit one) one) 00:00: - CHI 00 [facility] Eugenia Bello 2021-06 No 40mg Common (Triamcinol (Triamcinol 0-12 S pirit one) one) 00:00: - CHI 00 [facility] Eugenia Bello 2021-06 No 40mg Common (Triamcinol (Triamcinol 0-12 S pirit one) one) 00:00: - CHI 00 [facility] Bupivicaine Bupivicaine 2021-0 No 2.5mg Common Eads Eads 4-26 Spirit 00:00: - CHI 00 [facility] Eugenia Kenlaurie No 40mg Common (Triamcinol (Triamcinol 4-26 S pirit one) one) 00:00: - CHI 00 [facility] Bupivicaine Bupivicaine 2021-0 No 2.5mg Common Eads Eads 4-26 Spirit 00:00: - CHI 00 [facility] Eugenia Kenalog 0 No 40mg Common (Triamcinol (Triamcinol 4-26 S pirit one) one) 00:00: - CHI 00 [facility] Bupivicaine Bupivicaine 2021-0 No 2.5mg Common Eads Eads 4-26 Spirit 00:00: - CHI 00 [facility] Kenalog Kenalog 2022-0 No 40mg Common (Triamcinol (Triamcinol 4-26 S pirit one) one) 00:00: - CHI 00 [facility] Bupivicaine Bupivicaine 2021-0 No 2.5mg Common Eads Eads 4-26 Spirit 00:00: - CHI 00 [facility] Kenalog Kenalog 2021-0 No 40mg Common (Triamcinol (Triamcinol 4-26 S pirit one) one) 00:00: - CHI 00 [facility] Bupivicaine Bupivicaine 2021-0 No 2.5mg Common Eads Eads 4-26 Spirit 00:00: - CHI 00 [facility] Kenalog Kenalog 2021-0 No 40mg Common (Triamcinol (Triamcinol 4-26 S pirit one) one) 00:00: - CHI 00 [facility] Bupivicaine Bupivicaine 2021-0 No 2.5mg Common Eads Eads 4-26 Spirit 00:00: - CHI 00 [facility] Kenalog Kenalog 2021-0 No 40mg Common (Triamcinol (Triamcinol 4-26 S pirit one) one) 00:00: - CHI 00 [facility] Bupivicaine Bupivicaine 2021-0 No 2.5mg Common Eads Eads 4-26 Spirit 00:00: - CHI 00 [facility] Kenalog Kenalog 2021-0 No 40mg Common (Triamcinol (Triamcinol 4-26 S pirit one) one) 00:00: - CHI 00 [facility] Bupivicaine Bupivicaine 2021-0 No 2.5mg Common Eads Eads 4-26 Spirit 00:00: - CHI 00 [facility] Kenalog Kenalog 2021-0 No 40mg Common (Triamcinol (Triamcinol 4-26 S pirit one) one) 00:00: - CHI 00 [facility] Bupivicaine Bupivicaine 2021-0 No 2.5mg Common Eads Eads 4-26 Spirit 00:00: - CHI 00 [facility] Kenalog Kenalog 2021-0 No 40mg Common (Triamcinol (Triamcinol 4-26 S pirit one) one) 00:00: - CHI 00 [facility] Bupivicaine Bupivicaine 2021-0 No 2.5mg Common Eads Eads 4-26 Spirit 00:00: - CHI 00 [facility] Kenalog Kenalog 2021-0 No 40mg Common (Triamcinol (Triamcinol 4-26 S pirit one) one) 00:00: - CHI 00 [facility] Bupivicaine Bupivicaine 2021-0 No 2.5mg Common Eads Eads 4-26 Spirit 00:00: - CHI 00 [facility] Kenalog Kenalog 2021-0 No 40mg Common (Triamcinol (Triamcinol 4-26 S pirit one) one) 00:00: - CHI 00 [facility] Bupivicaine Bupivicaine 2021-0 No 2.5mg Common Eads Eads 4-26 Spirit 00:00: - CHI 00 [facility] Kenalog Kenalog 2021-0 No 40mg Common (Triamcinol (Triamcinol 4-26 S pirit one) one) 00:00: - CHI 00 [facility] Bupivicaine Bupivicaine 2021-0 No 2.5mg Common Eads Eads 4-26 Spirit 00:00: - CHI 00 [facility] Kenalog Kenalog 2021-0 No 40mg Common (Triamcinol (Triamcinol 4-26 S pirit one) one) 00:00: - CHI 00 [facility] Bupivicaine Bupivicaine 2021-0 No 2.5mg Common Eads Eads 4-26 Spirit 00:00: - CHI 00 [facility] Kenalog Kenalog 2021-0 No 40mg Common (Triamcinol (Triamcinol 4-26 S pirit one) one) 00:00: - CHI 00 [facility] Bupivicaine Bupivicaine 2-0 No 2.5mg Common Eads Eads 4-26 Spirit 00:00: - CHI 00 [facility] Kenalog Kenalog 2-0 No 40mg Common (Triamcinol (Triamcinol 4-26 S pirit one) one) 00:00: - CHI 00 [facility] Bupivicaine Bupivicaine 2-0 No 2.5mg Common Eads Eads 4-26 Spirit 00:00: - CHI 00 [facility] Kenalog Kenalog 2-0 No 40mg Common (Triamcinol (Triamcinol 4-26 S pirit one) one) 00:00: - CHI 00 [facility] Bupivicaine Bupivicaine 2-0 No 2.5mg Common Eads Eads 4-26 Spirit 00:00: - CHI 00 [facility] Kenalog Kenalog 2-0 No 40mg Common (Triamcinol (Triamcinol 4-26 S pirit one) one) 00:00: - CHI 00 [facility] Bupivicaine Bupivicaine 2-0 No 2.5mg Common Eads Eads 4-26 Spirit 00:00: - CHI 00 [facility] Kenalog Kenalog 2-0 No 40mg Common (Triamcinol (Triamcinol 4-26 S pirit one) one) 00:00: - CHI 00 [facility] Bupivicaine Bupivicaine 2-0 No 2.5mg Common Eads Eads 4-26 Spirit 00:00: - CHI 00 [facility] Kenalog Kenalog 2-0 No 40mg Common (Triamcinol (Triamcinol 4-26 S pirit one) one) 00:00: - CHI 00 [facility] Bupivicaine Bupivicaine 2-0 No 2.5mg Common Eads Eads 4-26 Spirit 00:00: - CHI 00 [facility] Kenalog Kenalog 2-0 No 40mg Common (Triamcinol (Triamcinol 4-26 S pirit one) one) 00:00: - CHI 00 [facility] methylPREDN methylPREDN 2021-0 No methylPRED ISolone 4 ISolone 4 1-11 NISolone 4 MG MG 00:00: MG 00 methylPREDN methylPREDN 2-0 No methylPRED ISolone 4 ISolone 4 1-11 NISolone 4 MG MG 00:00: MG 00 methylPREDN methylPREDN 2021-0 No methylPRED ISolone 4 ISolone 4 1-11 NISolone 4 MG MG 00:00: MG 00 methylPREDN methylPREDN 2022-0 No methylPRED ISolone 4 ISolone 4 1-11 NISolone 4 MG MG 00:00: MG 00 methylPREDN methylPREDN 2022-0 No methylPRED ISolone 4 ISolone 4 1-11 NISolone 4 MG MG 00:00: MG 00 methylPREDN methylPREDN 2022-0 No methylPRED ISolone 4 ISolone 4 1-11 NISolone 4 MG MG 00:00: MG 00 methylPREDN methylPREDN 2022-0 No methylPRED ISolone 4 ISolone 4 1-11 NISolone 4 MG MG 00:00: MG 00 methylPREDN methylPREDN 2022-0 No methylPRED ISolone 4 ISolone 4 1-11 NISolone 4 MG MG 00:00: MG 00 methylPREDN methylPREDN 2022-0 No methylPRED ISolone 4 ISolone 4 1-11 NISolone 4 MG MG 00:00: MG 00 methylPREDN methylPREDN 2022-0 No methylPRED ISolone 4 ISolone 4 1-11 NISolone 4 MG MG 00:00: MG 00 methylPREDN methylPREDN 2022-0 No methylPRED ISolone 4 ISolone 4 1-11 NISolone 4 MG MG 00:00: MG 00 methylPREDN methylPREDN 2022-0 No methylPRED ISolone 4 ISolone 4 1-11 NISolone 4 MG MG 00:00: MG 00 methylPREDN methylPREDN 2022-0 No methylPRED ISolone 4 ISolone 4 1-11 NISolone 4 MG MG 00:00: MG 00 methylPREDN methylPREDN 2022-0 No methylPRED ISolone 4 ISolone 4 1-11 NISolone 4 MG MG 00:00: MG 00 methylPREDN methylPREDN 2022-0 No methylPRED ISolone 4 ISolone 4 1-11 NISolone 4 MG MG 00:00: MG 00 methylPREDN methylPREDN 2022-0 No methylPRED ISolone 4 ISolone 4 1-11 NISolone 4 MG MG 00:00: MG 00 methylPREDN methylPREDN 2022-0 No methylPRED ISolone 4 ISolone 4 1-11 NISolone 4 MG MG 00:00: MG 00 methylPREDN methylPREDN 2022-0 No methylPRED ISolone 4 ISolone 4 1-11 NISolone 4 MG MG 00:00: MG 00 methylPREDN methylPREDN 2022-0 No methylPRED ISolone 4 ISolone 4 1-11 NISolone 4 MG MG 00:00: MG 00 methylPREDN methylPREDN 2-0 No methylPRED ISolone 4 ISolone 4 1-11 NISolone 4 MG MG 00:00: MG 00 Synvisc Synvisc 2020-1 No 16mg Common 2-16 Spirit 00:00: - CHI 00 [facility] Synvisc Synvisc 2020-1 No 16mg Common 2-16 Spirit 00:00: - CHI 00 [facility] Synvisc Synvisc 2020- No 16mg Common 2-16 Spirit 00:00: - CHI 00 [facility] Synvisc Synvisc 2020-1 No 16mg Common 2-16 Spirit 00:00: - CHI 00 [facility] Synvisc Synvisc 2020- No 16mg Common 2-16 Spirit 00:00: - CHI 00 [facility] Synvisc Synvisc 2020-1 No 16mg Common 2-16 Spirit 00:00: - CHI 00 [facility] Synvisc Synvisc 2020-1 No 16mg Common 2-16 Spirit 00:00: - CHI 00 [facility] Synvisc Synvisc 2020-1 No 16mg Common 2-16 Spirit 00:00: - CHI 00 [facility] Synvisc Synvisc 2020-1 No 16mg Common 2-16 Spirit 00:00: - CHI 00 [facility] Synvisc Synvisc 2020-1 No 16mg Common 2-16 Spirit 00:00: - CHI 00 [facility] Synvisc Synvisc 2020-1 No 16mg Common 2-16 Spirit 00:00: - CHI 00 [facility] Synvisc Synvisc 2020-1 No 16mg Common 2-16 Spirit 00:00: - CHI 00 [facility] Synvisc Synvisc 2020-1 No 16mg Common 2-16 Spirit 00:00: - CHI 00 [facility] Synvisc Synvisc 2020-1 No 16mg Common 2-16 Spirit 00:00: - CHI 00 [facility] Synvisc Synvisc 2020-1 No 16mg Common 2-16 Spirit 00:00: - CHI 00 [facility] Synvisc Synvisc 2020- No 16mg Common 2-16 Spirit 00:00: - CHI 00 [facility] Synvisc Synvisc 2020-06 No 16mg Common 2-16 Spirit 00:00: - CHI 00 [facility] Synvisc Synvisc 2020-06 No 16mg Common 2-16 Spirit 00:00: - CHI 00 [facility] Synvisc Synvisc 2020- No 16mg Common 2-16 Spirit 00:00: - CHI 00 [facility] Synvisc Synvisc 2020-06 No 16mg Common 2-16 Spirit 00:00: - CHI 00 [facility] Synvisc Synvisc 2020-06 No 16mg Common 2-16 Spirit 00:00: - CHI 00 [facility] Synvisc Synvisc 2020-06 No 16mg Common 2-16 Spirit 00:00: - CHI 00 [facility] Synvisc Synvisc 2020- No 16mg Common 2-16 Spirit 00:00: - [facility]I 00 [facility] Synvisc Synvisc 2020-06 No 16mg Common 2-16 Spirit 00:00: - CHI 00 [facility] Synvisc Synvisc 2020- No 16mg Common 2-09 Spirit 00:00: - CHI 00 [facility] Synvisc Synvisc 2020-06 No 16mg Common 2-09 Spirit 00:00: - CHI 00 [facility] Synvisc Synvisc 2020- No 16mg Common 2-09 Spirit 00:00: - CHI 00 [facility] Synvisc Synvisc 2020- No 16mg Common 2-09 Spirit 00:00: - CHI 00 [facility] Synvisc Synvisc 2020- No 16mg Common 2- Spirit 00:00: - CHI 00 [facility] Synvisc Synvisc 2020- No 16mg Common 2-09 Spirit 00:00: - CHI 00 [facility] Synvisc Synvisc 2020- No 16mg Common 2- Spirit 00:00: - CHI 00 [facility] Synvisc Synvisc 2020-1 No 16mg Common 2- Spirit 00:00: - CHI 00 [facility] Synvisc Synvisc 2020- No 16mg Common 2- Spirit 00:00: - CHI 00 [facility] Synvisc Synvisc 2020- No 16mg Common 2- Spirit 00:00: - CHI 00 [facility] Synvisc Synvisc 2020- No 16mg Common 2- Spirit 00:00: - CHI 00 [facility] Synvisc Synvisc 2020- No 16mg Common 2- Spirit 00:00: - CHI 00 [facility] Synvisc Synvisc 2020- No 16mg Common 2- Spirit 00:00: - [facility]I 00 [facility] Synvisc Synvisc 2020- No 16mg Common 2 Spirit 00:00: - CHI 00 [facility] Synvisc Synvisc 2020- No 16mg Common 2- Spirit 00:00: - CHI 00 [facility] Synvisc Synvisc 2020- No 16mg Common 2- Spirit 00:00: - [facility]I 00 [facility] Synvisc Synvisc 2020- No 16mg Common 2- Spirit 00:00: - [facility]I 00 [facility] Synvisc Synvisc 2020- No 16mg Common 2- Spirit 00:00: - [facility]I 00 [facility] Synvisc Synvisc 2020- No 16mg Common 2- Spirit 00:00: - [facility]I 00 [facility] Synvisc Synvisc 2020- No 16mg Common 2- Spirit 00:00: - [facility]I 00 [facility] Synvisc Synvisc 2020- No 16mg Common 2- Spirit 00:00: - [facility]I 00 [facility] Synvisc Synvisc 2020- No 16mg Common 2- Spirit 00:00: - [facility]I 00 [facility] Synvisc Synvisc 2020- No 16mg Common 2- Spirit 00:00: - [facility] 00 [facility] Synvisc Synvisc 2020-1 No 16mg Common 2- [facility] 00:[facility]: - [facility] Synvisc Synvisc 2020-06 No 16mg Common 2-02 Spirit 00:00: - [facility] 00 [facility] Synvisc Synvisc 2020-06 No 16mg Common 2-02 Spirit 00:00: - [facility] 00 [facility] Synvisc Synvisc 2020-06 No 16mg Common 2-02 Spirit 00:00: - [facility] 00 [facility] Synvisc Synvisc 2020-06 No 16mg Common 2-02 Spirit 00:00: - [facility] 00 [facility] Synvisc Synvisc 2020-06 No 16mg Common 2-02 Spirit 00:00: - [facility] 00 [facility] Synvisc Synvisc 2020-06 No 16mg Common 2-02 Spirit 00:00: - [facility] 00 [facility] Synvisc Synvisc 2020-06 No 16mg Common 2-02 Spirit 00:00: - [facility] 00 [facility] Synvisc Synvisc 2020-06 No 16mg Common 2-02 Spirit 00:00: - [facility] 00 [facility] Synvisc Synvisc 2020-06 No 16mg Common 2-02 Spirit 00:00: - [facility] 00 [facility] Synvisc Synvisc 2020-06 No 16mg Common 2-02 Spirit 00:00: - [facility] 00 [facility] Synvisc Synvisc 2020-06 No 16mg Common 2-02 Spirit 00:00: - [facility] Synvisc Synvisc 2020-06 No 16mg Common 2-02 Spirit 00:00: - [facility] Synvisc Synvisc 2020-06 No 16mg Common 2-02 Spirit 00:00: - [facility] 00 [facility] Synvisc Synvisc 2020-06 No 16mg Common 2-02 Spirit 00:00: - [facility] 00 [facility] Synvisc Synvisc 2020-06 No 16mg Common 2-02 Spirit 00:00: - [facility] Synvisc Synvisc 2020-06 No 16mg Common 2-02 Spirit 00:00: - [facility] 00 [facility] Synvisc Synvisc 2020- No 16mg Common 2-02 Spirit 00:00: - [facility] 00 [facility] Synvisc Synvisc 2020-06 No 16mg Common 2- Spirit 00:00: - [facility] 00 [facility] Synvisc Synvisc 2020-06 No 16mg Common 2- Spirit 00:00: - [facility] 00 [facility] Synvisc Synvisc 2020-06 No 16mg Common 2- [facility] 00:00: - [facility] 00 [facility] Synvisc Synvisc 2020-06 No 16mg Common 2- Spirit 00:00: - [facility] 00 [facility] Synvisc Synvisc 2020-06 No 16mg Common 2- Spirit 00:00: - [facility] 00 [facility] Synvisc Synvisc 2020-06 No 16mg Common 2- [facility] 00:00: - [facility] 00 [facility] Synvisc Synvisc 2020-06 No 16mg Common 2- [facility] 00:00: - [facility] Xarelto 20 Xarelto 20 2020-06 No 1{table QD Xarelto 20 MG MG 0-26 t_with_ MG 00:00: food} 00 Xarelto 20 Xarelto 20 2020-06 No 1{table QD Xarelto 20 MG MG 0-26 t_with_ MG 00:00: food} Xarelto 20 Xarelto 20 2020-06 No 1{table QD Xarelto 20 MG MG 0-26 t_with_ MG 00:00: food} 00 Xarelto 20 Xarelto 20 2020- No 1{table QD Xarelto 20 MG MG 0-26 t_with_ MG 00:00: food} 00 Xarelto 20 Xarelto 20 2020-06 No 1{table QD MG MG 0-26 t_with_ 00:00: food} Xarelto 20 Xarelto 20 2020-06 No 1{table QD Xarelto 20 MG MG 0-26 t_with_ MG 00:00: food} 00 Xarelto 20 Xarelto 20 2020-06 No 1{table QD Xarelto 20 MG MG 0-26 t_with_ MG 00:00: food} 00 Xarelto 20 Xarelto 20 2020-06 No 1{table QD Xarelto 20 MG MG 0-26 t_with_ MG 00:00: food} 00 Xarelto 20 Xarelto 20 2020-06 No 1{table QD Xarelto 20 MG MG 0-26 t_with_ MG 00:00: food} Xarelto 20 Xarelto 20 2020-06 No 1{table QD Xarelto 20 MG MG 0-26 t_with_ MG 00:00: food} Xarelto 20 Xarelto 20 2020-06 No 1{table QD Xarelto 20 MG MG 0-26 t_with_ MG 00:00: food} Xarelto 20 Xarelto 20 2020-06 No 1{table QD Xarelto 20 MG MG 0-26 t_with_ MG 00:00: food} Xarelto 20 Xarelto 20 2020-06 No 1{table QD Xarelto 20 MG MG 0-26 t_with_ MG 00:00: food} Xarelto 20 Xarelto 20 2020-06 No 1{table QD Xarelto 20 MG MG 0-26 t_with_ MG 00:00: food} Xarelto 20 Xarelto 20 2020-06 No 1{table QD Xarelto 20 MG MG 0-26 t_with_ MG 00:00: food} Xarelto 20 Xarelto 20 2020-06 No 1{table QD Xarelto 20 MG MG 0-26 t_with_ MG 00:00: food} Xarelto 20 Xarelto 20 2020-06 No 1{table QD Xarelto 20 MG MG 0-26 t_with_ MG 00:00: food} Xarelto 20 Xarelto 20 2020-06 No 1{table QD Xarelto 20 MG MG 0-26 t_with_ MG 00:00: food} Xarelto 20 Xarelto 20 2020-06 No 1{table QD Xarelto 20 MG MG 0-26 t_with_ MG 00:00: food} Xarelto 20 Xarelto 20 2020-06 No 1{table QD Xarelto 20 MG MG 0-26 t_with_ MG 00:00: food} 00 Xarelto 20 Xarelto 20 2020-06 No 1{table QD Xarelto 20 MG MG 0-26 t_with_ MG 00:00: food} 00 Xarelto 20 Xarelto 20 2020-06 No 1{table QD Xarelto 20 MG MG 0-26 t_with_ MG 00:00: food} Xarelto 20 Xarelto 20 2020-06 No 1{table QD Xarelto 20 MG MG 0-26 t_with_ MG 00:00: food} Xarelto 20 Xarelto 20 2020-06 No 1{table QD Xarelto 20 MG MG 0-26 t_with_ MG 00:00: food} Xarelto 20 Xarelto 20 2020-06 No 1{table QD Xarelto 20 MG MG 0-26 t_with_ MG 00:00: food} Xarelto 20 Xarelto 20 2020-06 No 1{table QD Xarelto 20 MG MG 0-26 t_with_ MG 00:00: food} clonazePAM Yes 1mg Take 1 mg Un raffi (KLONOPIN) 6-15 by mouth ity o f 1 mg tablet 13:28: as needed. [place] [id number] [facility] metoprolol Yes 25mg Take 25 mg U nivers tartrate 6-15 by mouth ity of (LOPRESSOR) 13:28: daily. [place] 25 [place] Medical tablet Branch dicyclomine Yes 20mg Take 20 mg [facility] 20 mg 6-15 by mouth ity of tablet 13:28: daily. [place] [address] [facility] [place] FLUoxetine Yes 40mg Take 40 mg U nivers (PROZAC) 40 6-15 by mouth ity of mg capsule 13:28: daily. [address] OLANZapine Yes 2.5mg Take 2.5 Un raffi 2.5 mg 6-15 mg by ity of tablet 13:28: mouth 2 [place] [address] (two) Medical times Branch daily. desonide Yes APPLY TO Unive rs 0.05 % 1-18 THE ity of cream 00:00: AFFECTED [place] [id number] AREA TWICE Medical DAILY Branch SPARINGLY AND RUB GENTLY Metoprolol Metoprolol No 1{table BID Metoprolol Tartrate 50 Tartrate 50 t_with_ Tartrate MG MG food} 50 MG ALPRAZolam ALPRAZolam No 1{table BID ALPRAZolam 0.5 MG 0.5 MG t} 0.5 MG FLUoxetine FLUoxetine No QD FLUoxetine HCl 20 MG HCl 20 MG HCl 20 MG Atorvastati Atorvastati No 1{table QD Atorvastat n Calcium n Calcium t} in Calcium 10 MG 10 MG 10 MG Xarelto Xarelto No Xarelto Starter Starter Starter Pack 15 & Pack 15 & Pack 15 & 20 MG 20 MG 20 MG Dicyclomine Dicyclomine No 1{table Dicyclomin HCl 20 MG HCl 20 MG t} e HCl 20 MG Omeprazole Omeprazole No Omeprazole 40 MG 40 MG 40 MG clonazePAM clonazePAM No 1{table clonazePAM 1 MG 1 MG t} 1 MG OLANZapine OLANZapine No OLANZapine 5 MG 5 MG 5 MG FLUoxetine FLUoxetine No 1{capsu QD FLUoxetine HCl 60 MG HCl 60 MG le} HCl 60 MG Dexilant Dexilant No Dexilant OLANZapine OLANZapine No OLANZapine 5 MG 5 MG 5 MG ALPRAZolam ALPRAZolam No 1{table BID ALPRAZolam 0.5 MG 0.5 MG t} 0.5 MG FLUoxetine FLUoxetine No QD FLUoxetine HCl 20 MG HCl 20 MG HCl 20 MG Metoprolol Metoprolol No 1{table BID Metoprolol Tartrate 50 Tartrate 50 t_with_ Tartrate MG MG food} 50 MG clonazePAM clonazePAM No 1{table clonazePAM 1 MG 1 MG t} 1 MG FLUoxetine FLUoxetine No 1{capsu QD FLUoxetine HCl 60 MG HCl 60 MG le} HCl 60 MG Omeprazole Omeprazole No Omeprazole 40 MG 40 MG 40 MG Breztri Breztri No Breztri Aerosphere Aerosphere Aerosphere Atorvastati Atorvastati No 1{table QD Atorvastat n Calcium n Calcium t} in Calcium 10 MG 10 MG 10 MG Dexilant Dexilant No Dexilant Dicyclomine Dicyclomine No 1{table Dicyclomin HCl 20 MG HCl 20 MG t} e HCl 20 MG Adderall 30 Adderall 30 No BID Adderall MG MG 30 MG Xarelto Xarelto No Xarelto Starter Starter Starter Pack 15 & Pack 15 & Pack 15 & 20 MG 20 MG 20 MG OLANZapine OLANZapine No OLANZapine 5 MG 5 MG 5 MG ALPRAZolam ALPRAZolam No 1{table BID ALPRAZolam 0.5 MG 0.5 MG t} 0.5 MG FLUoxetine FLUoxetine No QD FLUoxetine HCl 20 MG HCl 20 MG HCl 20 MG Metoprolol Metoprolol No 1{table BID Metoprolol Tartrate 50 Tartrate 50 t_with_ Tartrate MG MG food} 50 MG clonazePAM clonazePAM No 1{table clonazePAM 1 MG 1 MG t} 1 MG FLUoxetine FLUoxetine No 1{capsu QD FLUoxetine HCl 60 MG HCl 60 MG le} HCl 60 MG Omeprazole Omeprazole No Omeprazole 40 MG 40 MG 40 MG Breztri Breztri No Breztri Aerosphere Aerosphere Aerosphere Atorvastati Atorvastati No 1{table QD Atorvastat n Calcium n Calcium t} in Calcium 10 MG 10 MG 10 MG Dexilant Dexilant No Dexilant Dicyclomine Dicyclomine No 1{table Dicyclomin HCl 20 MG HCl 20 MG t} e HCl 20 MG Adderall 30 Adderall 30 No BID Adderall MG MG 30 MG Xarelto Xarelto No Xarelto Starter Starter Starter Pack 15 & Pack 15 & Pack 15 & 20 MG 20 MG 20 MG Xarelto Xarelto No Xarelto Starter Starter Starter Pack 15 & Pack 15 & Pack 15 & 20 MG 20 MG 20 MG ALPRAZolam ALPRAZolam No 1{table BID ALPRAZolam 0.5 MG 0.5 MG t} 0.5 MG FLUoxetine FLUoxetine No QD FLUoxetine HCl 20 MG HCl 20 MG HCl 20 MG Metoprolol Metoprolol No 1{table BID Metoprolol Tartrate 50 Tartrate 50 t_with_ Tartrate MG MG food} 50 MG clonazePAM clonazePAM No 1{table clonazePAM 1 MG 1 MG t} 1 MG Omeprazole Omeprazole No Omeprazole 40 MG 40 MG 40 MG OLANZapine OLANZapine No OLANZapine 5 MG 5 MG 5 MG Dexilant Dexilant No Dexilant Atorvastati Atorvastati No 1{table QD Atorvastat n Calcium n Calcium t} in Calcium 10 MG 10 MG 10 MG FLUoxetine FLUoxetine No 1{capsu QD FLUoxetine HCl 60 MG HCl 60 MG le} HCl 60 MG Dicyclomine Dicyclomine No 1{table Dicyclomin HCl 20 MG HCl 20 MG t} e HCl 20 MG Adderall 30 Adderall 30 No BID Adderall MG MG 30 MG Breztri Breztri No Breztri Aerosphere Aerosphere Aerosphere Xarelto Xarelto No Xarelto Starter Starter Starter Pack 15 & Pack 15 & Pack 15 & 20 MG 20 MG 20 MG ALPRAZolam ALPRAZolam No 1{table BID ALPRAZolam 0.5 MG 0.5 MG t} 0.5 MG FLUoxetine FLUoxetine No QD FLUoxetine HCl 20 MG HCl 20 MG HCl 20 MG Metoprolol Metoprolol No 1{table BID Metoprolol Tartrate 50 Tartrate 50 t_with_ Tartrate MG MG food} 50 MG clonazePAM clonazePAM No 1{table clonazePAM 1 MG 1 MG t} 1 MG Omeprazole Omeprazole No Omeprazole 40 MG 40 MG 40 MG OLANZapine OLANZapine No OLANZapine 5 MG 5 MG 5 MG Dexilant Dexilant No Dexilant Atorvastati Atorvastati No 1{table QD Atorvastat n Calcium n Calcium t} in Calcium 10 MG 10 MG 10 MG FLUoxetine FLUoxetine No 1{capsu QD FLUoxetine HCl 60 MG HCl 60 MG le} HCl 60 MG Dicyclomine Dicyclomine No 1{table Dicyclomin HCl 20 MG HCl 20 MG t} e HCl 20 MG Adderall 30 Adderall 30 No BID Adderall MG MG 30 MG Breztri Herlindaztri No Breztri Aerosphere Aerosphere Aerosphere Xarelto Xarelto No Xarelto Starter Starter Starter Pack 15 & Pack 15 & Pack 15 & 20 MG 20 MG 20 MG ALPRAZolam ALPRAZolam No 1{table BID ALPRAZolam 0.5 MG 0.5 MG t} 0.5 MG FLUoxetine FLUoxetine No QD FLUoxetine HCl 20 MG HCl 20 MG HCl 20 MG Metoprolol Metoprolol No 1{table BID Metoprolol Tartrate 50 Tartrate 50 t_with_ Tartrate MG MG food} 50 MG clonazePAM clonazePAM No 1{table clonazePAM 1 MG 1 MG t} 1 MG Omeprazole Omeprazole No Omeprazole 40 MG 40 MG 40 MG OLANZapine OLANZapine No OLANZapine 5 MG 5 MG 5 MG Dexilant Dexilant No Dexilant Atorvastati Atorvastati No 1{table QD Atorvastat n Calcium n Calcium t} in Calcium 10 MG 10 MG 10 MG FLUoxetine FLUoxetine No 1{capsu QD FLUoxetine HCl 60 MG HCl 60 MG le} HCl 60 MG Dicyclomine Dicyclomine No 1{table Dicyclomin HCl 20 MG HCl 20 MG t} e HCl 20 MG Adderall 30 Adderall 30 No BID Adderall MG MG 30 MG Breztri Breztri No Breztri Aerosphere Aerosphere Aerosphere clonazePAM clonazePAM No 1{table clonazePAM 1 MG 1 MG t} 1 MG Xarelto Xarelto No Xarelto Starter Starter Starter Pack 15 & Pack 15 & Pack 15 & 20 MG 20 MG 20 MG OLANZapine OLANZapine No OLANZapine 5 MG 5 MG 5 MG FLUoxetine FLUoxetine No QD FLUoxetine HCl 20 MG HCl 20 MG HCl 20 MG ALPRAZolam ALPRAZolam No 1{table BID ALPRAZolam 0.5 MG 0.5 MG t} 0.5 MG Metoprolol Metoprolol No 1{table BID Metoprolol Tartrate 50 Tartrate 50 t_with_ Tartrate MG MG food} 50 MG Adderall 30 Adderall 30 No BID Adderall MG MG 30 MG FLUoxetine FLUoxetine No 1{capsu QD FLUoxetine HCl 60 MG HCl 60 MG le} HCl 60 MG Dicyclomine Dicyclomine No 1{table Dicyclomin HCl 20 MG HCl 20 MG t} e HCl 20 MG Xanax 0.5 Xanax 0.5 No 1{table BID Xanax 0.5 MG MG t} MG Atorvastati Atorvastati No 1{table QD Atorvastat n Calcium n Calcium t} in Calcium 10 MG 10 MG 10 MG Breztri Breztri No Breztri Aerosphere Aerosphere Aerosphere Omeprazole Omeprazole No Omeprazole 40 MG 40 MG 40 MG Dexilant Dexilant No Dexilant clonazePAM clonazePAM No 1{table clonazePAM 1 MG 1 MG t} 1 MG Xarelto Xarelto No Xarelto Starter Starter Starter Pack 15 & Pack 15 & Pack 15 & 20 MG 20 MG 20 MG OLANZapine OLANZapine No OLANZapine 5 MG 5 MG 5 MG FLUoxetine FLUoxetine No QD FLUoxetine HCl 20 MG HCl 20 MG HCl 20 MG ALPRAZolam ALPRAZolam No 1{table BID ALPRAZolam 0.5 MG 0.5 MG t} 0.5 MG Metoprolol Metoprolol No 1{table BID Metoprolol Tartrate 50 Tartrate 50 t_with_ Tartrate MG MG food} 50 MG Adderall 30 Adderall 30 No BID Adderall MG MG 30 MG FLUoxetine FLUoxetine No 1{capsu QD FLUoxetine HCl 60 MG HCl 60 MG le} HCl 60 MG Dicyclomine Dicyclomine No 1{table Dicyclomin HCl 20 MG HCl 20 MG t} e HCl 20 MG Xanax 0.5 Xanax 0.5 No 1{table BID Xanax 0.5 MG MG t} MG Atorvastati Atorvastati No 1{table QD Atorvastat n Calcium n Calcium t} in Calcium 10 MG 10 MG 10 MG Breztri Breztri No Breztri Aerosphere Aerosphere Aerosphere Omeprazole Omeprazole No Omeprazole 40 MG 40 MG 40 MG Dexilant Dexilant No Dexilant Xanax 0.5 Xanax 0.5 No 1{table BID Xanax 0.5 MG MG t} MG Metoprolol Metoprolol No 1{table BID Metoprolol Tartrate 50 Tartrate 50 t_with_ Tartrate MG MG food} 50 MG clonazePAM clonazePAM No 1{table clonazePAM 1 MG 1 MG t} 1 MG Xarelto Xarelto No Xarelto Starter Starter Starter Pack 15 & Pack 15 & Pack 15 & 20 MG 20 MG 20 MG Breztri Breztri No Breztri Aerosphere Aerosphere Aerosphere Adderall 30 Adderall 30 No BID Adderall MG MG 30 MG FLUoxetine FLUoxetine No 1{capsu QD FLUoxetine HCl 60 MG HCl 60 MG le} HCl 60 MG FLUoxetine FLUoxetine No QD FLUoxetine HCl 20 MG HCl 20 MG HCl 20 MG Dexilant Dexilant No Dexilant Atorvastati Atorvastati No 1{table QD Atorvastat n Calcium n Calcium t} in Calcium 10 MG 10 MG 10 MG ALPRAZolam ALPRAZolam No 1{table BID ALPRAZolam 0.5 MG 0.5 MG t} 0.5 MG Omeprazole Omeprazole No Omeprazole 40 MG 40 MG 40 MG Dicyclomine Dicyclomine No 1{table Dicyclomin HCl 20 MG HCl 20 MG t} e HCl 20 MG OLANZapine OLANZapine No OLANZapine 5 MG 5 MG 5 MG Xanax 0.5 Xanax 0.5 No 1{table BID Xanax 0.5 MG MG t} MG Metoprolol Metoprolol No 1{table BID Metoprolol Tartrate 50 Tartrate 50 t_with_ Tartrate MG MG food} 50 MG clonazePAM clonazePAM No 1{table clonazePAM 1 MG 1 MG t} 1 MG Xarelto Xarelto No Xarelto Starter Starter Starter Pack 15 & Pack 15 & Pack 15 & 20 MG 20 MG 20 MG Breztri Breztri No Breztri Aerosphere Aerosphere Aerosphere Adderall 30 Adderall 30 No BID Adderall MG MG 30 MG FLUoxetine FLUoxetine No 1{capsu QD FLUoxetine HCl 60 MG HCl 60 MG le} HCl 60 MG FLUoxetine FLUoxetine No QD FLUoxetine HCl 20 MG HCl 20 MG HCl 20 MG Dexilant Dexilant No Dexilant Atorvastati Atorvastati No 1{table QD Atorvastat n Calcium n Calcium t} in Calcium 10 MG 10 MG 10 MG ALPRAZolam ALPRAZolam No 1{table BID ALPRAZolam 0.5 MG 0.5 MG t} 0.5 MG Omeprazole Omeprazole No Omeprazole 40 MG 40 MG 40 MG Dicyclomine Dicyclomine No 1{table Dicyclomin HCl 20 MG HCl 20 MG t} e HCl 20 MG OLANZapine OLANZapine No OLANZapine 5 MG 5 MG 5 MG Xanax 0.5 Xanax 0.5 No 1{table BID Xanax 0.5 MG MG t} MG Metoprolol Metoprolol No 1{table BID Metoprolol Tartrate 50 Tartrate 50 t_with_ Tartrate MG MG food} 50 MG clonazePAM clonazePAM No 1{table clonazePAM 1 MG 1 MG t} 1 MG Xarelto Xarelto No Xarelto Starter Starter Starter Pack 15 & Pack 15 & Pack 15 & 20 MG 20 MG 20 MG Breztri Breztri No Breztri Aerosphere Aerosphere Aerosphere Adderall 30 Adderall 30 No BID Adderall MG MG 30 MG FLUoxetine FLUoxetine No 1{capsu QD FLUoxetine HCl 60 MG HCl 60 MG le} HCl 60 MG FLUoxetine FLUoxetine No QD FLUoxetine HCl 20 MG HCl 20 MG HCl 20 MG Dexilant Dexilant No Dexilant Atorvastati Atorvastati No 1{table QD Atorvastat n Calcium n Calcium t} in Calcium 10 MG 10 MG 10 MG ALPRAZolam ALPRAZolam No 1{table BID ALPRAZolam 0.5 MG 0.5 MG t} 0.5 MG Omeprazole Omeprazole No Omeprazole 40 MG 40 MG 40 MG Dicyclomine Dicyclomine No 1{table Dicyclomin HCl 20 MG HCl 20 MG t} e HCl 20 MG OLANZapine OLANZapine No OLANZapine 5 MG 5 MG 5 MG Metoprolol Metoprolol No 1{table BID Metoprolol Tartrate 50 Tartrate 50 t_with_ Tartrate MG MG food} 50 MG Dexilant Dexilant No Dexilant Xarelto Xarelto No Xarelto Starter Starter Starter Pack 15 & Pack 15 & Pack 15 & 20 MG 20 MG 20 MG ALPRAZolam ALPRAZolam No 1{table BID ALPRAZolam 0.5 MG 0.5 MG t} 0.5 MG OLANZapine OLANZapine No OLANZapine 5 MG 5 MG 5 MG Atorvastati Atorvastati No 1{table QD Atorvastat n Calcium n Calcium t} in Calcium 10 MG 10 MG 10 MG Xanax 0.5 Xanax 0.5 No 1{table BID Xanax 0.5 MG MG t} MG Dicyclomine Dicyclomine No 1{table Dicyclomin HCl 20 MG HCl 20 MG t} e HCl 20 MG FLUoxetine FLUoxetine No QD FLUoxetine HCl 20 MG HCl 20 MG HCl 20 MG Breztri Breztri No Breztri Aerosphere Aerosphere Aerosphere FLUoxetine FLUoxetine No 1{capsu QD FLUoxetine HCl 60 MG HCl 60 MG le} HCl 60 MG Adderall 30 Adderall 30 No BID Adderall MG MG 30 MG Omeprazole Omeprazole No Omeprazole 40 MG 40 MG 40 MG methylPREDN methylPREDN No methylPRED ISolone 4 ISolone 4 NISolone 4 MG MG MG clonazePAM clonazePAM No 1{table clonazePAM 1 MG 1 MG t} 1 MG FLUoxetine FLUoxetine No 1{capsu QD FLUoxetine HCl 60 MG HCl 60 MG le} HCl 60 MG FLUoxetine FLUoxetine No QD FLUoxetine HCl 20 MG HCl 20 MG HCl 20 MG clonazePAM clonazePAM No 1{table clonazePAM 1 MG 1 MG t} 1 MG Xarelto Xarelto No Xarelto Starter Starter Starter Pack 15 & Pack 15 & Pack 15 & 20 MG 20 MG 20 MG methylPREDN methylPREDN No methylPRED ISolone 4 ISolone 4 NISolone 4 MG MG MG Adderall 30 Adderall 30 No BID Adderall MG MG 30 MG Xanax 0.5 Xanax 0.5 No 1{table BID Xanax 0.5 MG MG t} MG Dicyclomine Dicyclomine No 1{table Dicyclomin HCl 20 MG HCl 20 MG t} e HCl 20 MG ALPRAZolam ALPRAZolam No 1{table BID ALPRAZolam 0.5 MG 0.5 MG t} 0.5 MG Atorvastati Atorvastati No 1{table QD Atorvastat n Calcium n Calcium t} in Calcium 10 MG 10 MG 10 MG Dexilant Dexilant No Dexilant Omeprazole Omeprazole No Omeprazole 40 MG 40 MG 40 MG Breztri Breztri No Breztri Aerosphere Aerosphere Aerosphere Metoprolol Metoprolol No 1{table BID Metoprolol Tartrate 50 Tartrate 50 t_with_ Tartrate MG MG food} 50 MG OLANZapine OLANZapine No OLANZapine 5 MG 5 MG 5 MG OLANZapine OLANZapine No OLANZapine 5 MG 5 MG 5 MG Omeprazole Omeprazole No Omeprazole 40 MG 40 MG 40 MG Xarelto Xarelto No Xarelto Starter Starter Starter Pack 15 & Pack 15 & Pack 15 & 20 MG 20 MG 20 MG ALPRAZolam ALPRAZolam No 1{table BID ALPRAZolam 0.5 MG 0.5 MG t} 0.5 MG Breztri Breztri No Breztri Aerosphere Aerosphere Aerosphere Adderall 30 Adderall 30 No BID Adderall MG MG 30 MG Dicyclomine Dicyclomine No 1{table Dicyclomin HCl 20 MG HCl 20 MG t} e HCl 20 MG Metoprolol Metoprolol No 1{table BID Metoprolol Tartrate 50 Tartrate 50 t_with_ Tartrate MG MG food} 50 MG Dexilant Dexilant No Dexilant FLUoxetine FLUoxetine No QD FLUoxetine HCl 20 MG HCl 20 MG HCl 20 MG clonazePAM clonazePAM No 1{table clonazePAM 1 MG 1 MG t} 1 MG Xanax 0.5 Xanax 0.5 No 1{table BID Xanax 0.5 MG MG t} MG methylPREDN methylPREDN No methylPRED ISolone 4 ISolone 4 NISolone 4 MG MG MG FLUoxetine FLUoxetine No 1{capsu QD FLUoxetine HCl 60 MG HCl 60 MG le} HCl 60 MG OLANZapine OLANZapine No OLANZapine 5 MG 5 MG 5 MG Omeprazole Omeprazole No Omeprazole 40 MG 40 MG 40 MG Xarelto Xarelto No Xarelto Starter Starter Starter Pack 15 & Pack 15 & Pack 15 & 20 MG 20 MG 20 MG ALPRAZolam ALPRAZolam No 1{table BID ALPRAZolam 0.5 MG 0.5 MG t} 0.5 MG Breztri Breztri No Breztri Aerosphere Aerosphere Aerosphere Adderall 30 Adderall 30 No BID Adderall MG MG 30 MG Dicyclomine Dicyclomine No 1{table Dicyclomin HCl 20 MG HCl 20 MG t} e HCl 20 MG Metoprolol Metoprolol No 1{table BID Metoprolol Tartrate 50 Tartrate 50 t_with_ Tartrate MG MG food} 50 MG Dexilant Dexilant No Dexilant FLUoxetine FLUoxetine No QD FLUoxetine HCl 20 MG HCl 20 MG HCl 20 MG clonazePAM clonazePAM No 1{table clonazePAM 1 MG 1 MG t} 1 MG Xanax 0.5 Xanax 0.5 No 1{table BID Xanax 0.5 MG MG t} MG methylPREDN methylPREDN No methylPRED ISolone 4 ISolone 4 NISolone 4 MG MG MG FLUoxetine FLUoxetine No 1{capsu QD FLUoxetine HCl 60 MG HCl 60 MG le} HCl 60 MG Xarelto Xarelto No Xarelto Starter Starter Starter [...] Aerosphere Aerosphere Aerosphere Dexilant Dexilant No Dexilant Xarelto Xarelto No Xarelto Starter Starter Starter [...] Aerosphere Aerosphere Aerosphere Dexilant Dexilant No Dexilant Xarelto Xarelto No Xarelto Starter Starter Starter [...] MG 30 MG PROzac PROzac No PROzac Brezi Breztri No Breztri Aerosphere Aerosphere Aerosphere Dexilant Dexilant No Dexilant Xarelto Xarelto No Xarelto Starter Starter Starter [...] Aerosphere Aerosphere Aerosphere Dexilant Dexilant No Dexilant Xarelto Xarelto No Xarelto Starter Starter Starter [...] Aerosphere Aerosphere Aerosphere Dexilant Dexilant No Dexilant Xarelto Xarelto No Xarelto Starter Starter Starter [...] Aerosphere Aerosphere Aerosphere Dexilant Dexilant No Dexilant Adderall 30 Adderall 30 No BID Adderall MG MG 30 MG FLUoxetine FLUoxetine No QD FLUoxetine HCl 20 MG HCl 20 MG HCl 20 MG ALPRAZolam ALPRAZolam No 1{table BID ALPRAZolam 0.5 MG 0.5 MG t} 0.5 MG Dicyclomine Dicyclomine No 1{table Dicyclomin HCl 20 MG HCl 20 MG t} e HCl 20 MG Dexilant Dexilant No Dexilant Metoprolol Metoprolol No 1{table BID Metoprolol Tartrate 50 Tartrate 50 t_with_ Tartrate MG MG food} 50 MG Atorvastati Atorvastati No Atorvastat n Calcium n Calcium in Calcium 20 MG 20 MG 20 MG OLANZapine OLANZapine No OLANZapine 5 MG 5 MG 5 MG Famotidine Famotidine No 1{table QD Famotidine 40 MG 40 MG t_at_be 40 MG dtime} Adderall 30 Adderall 30 No BID Adderall MG MG 30 MG FLUoxetine FLUoxetine No QD FLUoxetine HCl 20 MG HCl 20 MG HCl 20 MG ALPRAZolam ALPRAZolam No 1{table BID ALPRAZolam 0.5 MG 0.5 MG t} 0.5 MG Dicyclomine Dicyclomine No 1{table Dicyclomin HCl 20 MG HCl 20 MG t} e HCl 20 MG Dexilant Dexilant No Dexilant Metoprolol Metoprolol No 1{table BID Metoprolol Tartrate 50 Tartrate 50 t_with_ Tartrate MG MG food} 50 MG Atorvastati Atorvastati No Atorvastat n Calcium n Calcium in Calcium 20 MG 20 MG 20 MG OLANZapine OLANZapine No OLANZapine 5 MG 5 MG 5 MG Famotidine Famotidine No 1{table QD Famotidine 40 MG 40 MG t_at_be 40 MG dtime} Metoprolol Metoprolol Yes [place] 1 tablet Common Tartrate Tartrate [place] with food S [facility] Dicyclomine Dicyclomine Yes [place] TAKE 1 Common HCl HCl [place] TABLET BY [facility] MOUTH - [facility] TWICE [facility] DAILY [facility] Premarin Premarin Yes [place]irmal 1 tablet C ommon [place] [facility] Hydrochloro Hydrochloro Yes Nirmal 1 tablet Common thiazide thiazide [place] in the [facility] it morning [facility] Adderall Adderall Yes [facility] 1 [facility] Lansoprazol Lansoprazol Yes Nirmal 1 capsule Common e e [facility] Clonazepam Clonazepam Yes Nirmal 1 tablet Common [place] [facility] Duloxetine Duloxetine Yes [place]al TK ONE C Common HCl HCl [place] PO BID [facility] Adderall 30 Adderall 30 No BID Adderall MG MG 30 MG FLUoxetine FLUoxetine No QD FLUoxetine HCl 20 MG HCl 20 MG HCl 20 MG ALPRAZolam ALPRAZolam No 1{table BID ALPRAZolam 0.5 MG 0.5 MG t} 0.5 MG Dicyclomine Dicyclomine No 1{table Dicyclomin HCl 20 MG HCl 20 MG t} e HCl 20 MG Dexilant Dexilant No Dexilant Metoprolol Metoprolol No 1{table BID Metoprolol Tartrate 50 Tartrate 50 t_with_ Tartrate MG MG food} 50 MG Atorvastati Atorvastati No Atorvastat n Calcium n Calcium in Calcium 20 MG 20 MG 20 MG OLANZapine OLANZapine No OLANZapine 5 MG 5 MG 5 MG Famotidine Famotidine No 1{table QD Famotidine 40 MG 40 MG t_at_be 40 MG dtime} Atorvastati Atorvastati No 1{table QD Atorvastat n Calcium n Calcium t} in Calcium 20 MG 20 MG 20 MG Dexilant Dexilant No Dexilant FLUoxetine FLUoxetine No QD FLUoxetine HCl 20 MG HCl 20 MG HCl 20 MG OLANZapine OLANZapine No OLANZapine 5 MG 5 MG 5 MG Metoprolol Metoprolol No 1{table BID Metoprolol Tartrate 50 Tartrate 50 t_with_ Tartrate MG MG food} 50 MG Famotidine Famotidine No 1{table QD Famotidine 40 MG 40 MG t_at_be 40 MG dtime} Dicyclomine Dicyclomine No 1{table Dicyclomin HCl 20 MG HCl 20 MG t} e HCl 20 MG Atorvastati Atorvastati No Atorvastat n Calcium n Calcium in Calcium 20 MG 20 MG 20 MG Adderall 30 Adderall 30 No BID Adderall MG MG 30 MG ALPRAZolam ALPRAZolam No 1{table BID ALPRAZolam 0.5 MG 0.5 MG t} 0.5 MG Famotidine Famotidine No 1{table QD Famotidine 40 MG 40 MG t_at_be 40 MG dtime} ALPRAZolam ALPRAZolam No 1{table BID ALPRAZolam 0.5 MG 0.5 MG t} 0.5 MG Atorvastati Atorvastati No 1{table QD Atorvastat n Calcium n Calcium t} in Calcium 20 MG 20 MG 20 MG Atorvastati Atorvastati No Atorvastat n Calcium n Calcium in Calcium 20 MG 20 MG 20 MG Ritalin 10 Ritalin 10 No QD Ritalin 10 MG MG MG Ritalin 5 Ritalin 5 No QD Ritalin 5 MG MG MG Dexilant Dexilant No Dexilant OLANZapine OLANZapine No OLANZapine 5 MG 5 MG 5 MG FLUoxetine FLUoxetine No QD FLUoxetine HCl 20 MG HCl 20 MG HCl 20 MG Adderall 30 Adderall 30 No BID Adderall MG MG 30 MG Metoprolol Metoprolol No 1{table BID Metoprolol Tartrate 50 Tartrate 50 t_with_ Tartrate MG MG food} 50 MG Dicyclomine Dicyclomine No 1{table Dicyclomin HCl 20 MG HCl 20 MG t} e HCl 20 MG Famotidine Famotidine No 1{table QD Famotidine 40 MG 40 MG t_at_be 40 MG dtime} ALPRAZolam ALPRAZolam No 1{table BID ALPRAZolam 0.5 MG 0.5 MG t} 0.5 MG Atorvastati Atorvastati No 1{table QD Atorvastat n Calcium n Calcium t} in Calcium 20 MG 20 MG 20 MG Atorvastati Atorvastati No Atorvastat n Calcium n Calcium in Calcium 20 MG 20 MG 20 MG Ritalin 10 Ritalin 10 No QD Ritalin 10 MG MG MG Ritalin 5 Ritalin 5 No QD Ritalin 5 MG MG MG Dexilant Dexilant No Dexilant OLANZapine OLANZapine No OLANZapine 5 MG 5 MG 5 MG FLUoxetine FLUoxetine No QD FLUoxetine HCl 20 MG HCl 20 MG HCl 20 MG Adderall 30 Adderall 30 No BID Adderall MG MG 30 MG Metoprolol Metoprolol No 1{table BID Metoprolol Tartrate 50 Tartrate 50 t_with_ Tartrate MG MG food} 50 MG Dicyclomine Dicyclomine No 1{table Dicyclomin HCl 20 MG HCl 20 MG t} e HCl 20 MG Ritalin 10 Ritalin 10 No QD Ritalin 10 MG MG MG Atorvastati Atorvastati No Atorvastat n Calcium n Calcium in Calcium 20 MG 20 MG 20 MG Ritalin 5 Ritalin 5 No QD Ritalin 5 MG MG MG FLUoxetine FLUoxetine No QD FLUoxetine HCl 20 MG HCl 20 MG HCl 20 MG OLANZapine OLANZapine No OLANZapine 5 MG 5 MG 5 MG ALPRAZolam ALPRAZolam No 1{table BID ALPRAZolam 0.5 MG 0.5 MG t} 0.5 MG Dicyclomine Dicyclomine No 1{table Dicyclomin HCl 20 MG HCl 20 MG t} e HCl 20 MG Metoprolol Metoprolol No 1{table BID Metoprolol Tartrate 50 Tartrate 50 t_with_ Tartrate MG MG food} 50 MG Atorvastati Atorvastati No 1{table QD Atorvastat n Calcium n Calcium t} in Calcium 20 MG 20 MG 20 MG Famotidine Famotidine No 1{table QD Famotidine 40 MG 40 MG t_at_be 40 MG dtime} Adderall 30 Adderall 30 No BID Adderall MG MG 30 MG Dexilant Dexilant No Dexilant ALPRAZolam ALPRAZolam No 1{table BID ALPRAZolam 0.5 MG 0.5 MG t} 0.5 MG Dicyclomine Dicyclomine No 1{table Dicyclomin HCl 20 MG HCl 20 MG t} e HCl 20 MG Atorvastati Atorvastati No 1{table QD Atorvastat n Calcium n Calcium t} in Calcium 20 MG 20 MG 20 MG Atorvastati Atorvastati No Atorvastat n Calcium n Calcium in Calcium 20 MG 20 MG 20 MG Famotidine Famotidine No 1{table QD Famotidine 40 MG 40 MG t_at_be 40 MG dtime} Adderall 30 Adderall 30 No BID Adderall MG MG 30 MG Ritalin 5 Ritalin 5 No QD Ritalin 5 MG MG MG OLANZapine OLANZapine No OLANZapine 5 MG 5 MG 5 MG FLUoxetine FLUoxetine No QD FLUoxetine HCl 20 MG HCl 20 MG HCl 20 MG Dexilant Dexilant No Dexilant Metoprolol Metoprolol No 1{table BID Metoprolol Tartrate 50 Tartrate 50 t_with_ Tartrate MG MG food} 50 MG Ritalin 10 Ritalin 10 No QD Ritalin 10 MG MG MG ALPRAZolam ALPRAZolam No 1{table BID ALPRAZolam 0.5 MG 0.5 MG t} 0.5 MG Dicyclomine Dicyclomine No 1{table Dicyclomin HCl 20 MG HCl 20 MG t} e HCl 20 MG Atorvastati Atorvastati No 1{table QD Atorvastat n Calcium n Calcium t} in Calcium 20 MG 20 MG 20 MG Atorvastati Atorvastati No Atorvastat n Calcium n Calcium in Calcium 20 MG 20 MG 20 MG Famotidine Famotidine No 1{table QD Famotidine 40 MG 40 MG t_at_be 40 MG dtime} Adderall 30 Adderall 30 No BID Adderall MG MG 30 MG Ritalin 5 Ritalin 5 No QD Ritalin 5 MG MG MG OLANZapine OLANZapine No OLANZapine 5 MG 5 MG 5 MG FLUoxetine FLUoxetine No QD FLUoxetine HCl 20 MG HCl 20 MG HCl 20 MG Dexilant Dexilant No Dexilant Metoprolol Metoprolol No 1{table BID Metoprolol Tartrate 50 Tartrate 50 t_with_ Tartrate MG MG food} 50 MG Ritalin 10 Ritalin 10 No QD Ritalin 10 MG MG MG Xarelto Xarelto No Xarelto Starter Starter Starter [...] MG 30 MG PROzac PROzac No [facility]zac [facility]tri No Breztri [facility]osphere Dexilant Dexilant No Dexilant Xarelto Xarelto No Xarelto Starter Starter Starter [...] Aerosphere Aerosphere Aerosphere Dexilant Dexilant No Dexilant Atorvastati Atorvastati No 1{table QD Atorvastat n Calcium n Calcium t} in Calcium 10 MG 10 MG 10 MG Dicyclomine Dicyclomine No 1{table Dicyclomin HCl 20 MG HCl 20 MG t} e HCl 20 MG Metoprolol Metoprolol No 1{table BID Metoprolol Tartrate 50 Tartrate 50 t_with_ Tartrate MG MG food} 50 MG OLANZapine OLANZapine No OLANZapine 5 MG 5 MG 5 MG ALPRAZolam ALPRAZolam No 1{table BID ALPRAZolam 0.5 MG 0.5 MG t} 0.5 MG FLUoxetine FLUoxetine No 1{capsu QD FLUoxetine HCl 60 MG HCl 60 MG le} HCl 60 MG FLUoxetine FLUoxetine No QD FLUoxetine HCl 20 MG HCl 20 MG HCl 20 MG Omeprazole Omeprazole No Omeprazole 40 MG 40 MG 40 MG clonazePAM clonazePAM No 1{table clonazePAM 1 MG 1 MG t} 1 MG Atorvastati Atorvastati No 1{table QD Atorvastat n Calcium n Calcium t} in Calcium 10 MG 10 MG 10 MG Dicyclomine Dicyclomine No 1{table Dicyclomin HCl 20 MG HCl 20 MG t} e HCl 20 MG Metoprolol Metoprolol No 1{table BID Metoprolol Tartrate 50 Tartrate 50 t_with_ Tartrate MG MG food} 50 MG OLANZapine OLANZapine No OLANZapine 5 MG 5 MG 5 MG ALPRAZolam ALPRAZolam No 1{table BID ALPRAZolam 0.5 MG 0.5 MG t} 0.5 MG FLUoxetine FLUoxetine No 1{capsu QD FLUoxetine HCl 60 MG HCl 60 MG le} HCl 60 MG FLUoxetine FLUoxetine No QD FLUoxetine HCl 20 MG HCl 20 MG HCl 20 MG Omeprazole Omeprazole No Omeprazole 40 MG 40 MG 40 MG clonazePAM clonazePAM No 1{table clonazePAM 1 MG 1 MG t} 1 MG Omeprazole Omeprazole No Omeprazole 40 MG 40 MG 40 MG Dicyclomine Dicyclomine No 1{table Dicyclomin HCl 20 MG HCl 20 MG t} e HCl 20 MG Metoprolol Metoprolol No 1{table BID Metoprolol Tartrate 50 Tartrate 50 t_with_ Tartrate MG MG food} 50 MG ALPRAZolam ALPRAZolam No 1{table BID ALPRAZolam 0.5 MG 0.5 MG t} 0.5 MG Xarelto 15 Xarelto 15 No 1{table BID Xarelto 15 MG MG t_with_ MG food} clonazePAM clonazePAM No 1{table clonazePAM 1 MG 1 MG t} 1 MG Atorvastati Atorvastati No 1{table QD Atorvastat n Calcium n Calcium t} in Calcium 10 MG 10 MG 10 MG OLANZapine OLANZapine No OLANZapine 5 MG 5 MG 5 MG FLUoxetine FLUoxetine No QD FLUoxetine HCl 20 MG HCl 20 MG HCl 20 MG FLUoxetine FLUoxetine No 1{capsu QD FLUoxetine HCl 60 MG HCl 60 MG le} HCl 60 MG Xarelto Xarelto No Xarelto Starter Starter Starter Pack 15 & Pack 15 & Pack 15 & 20 MG 20 MG 20 MG Breztri Breztri No Breztri [employer]osphere [employer] Aerosphere Metoprolol Metoprolol No 1{table BID Metoprolol Tartrate 50 Tartrate 50 t_with_ Tartrate MG MG food} 50 MG ALPRAZolam ALPRAZolam No 1{table BID ALPRAZolam 0.5 MG 0.5 MG t} 0.5 MG FLUoxetine FLUoxetine No QD FLUoxetine HCl 20 MG HCl 20 MG HCl 20 MG Atorvastati Atorvastati No 1{table QD Atorvastat n Calcium n Calcium t} in Calcium 10 MG 10 MG 10 MG Xarelto Xarelto No Xarelto Starter Starter Starter Pack 15 & Pack 15 & Pack 15 & 20 MG 20 MG 20 MG Dicyclomine Dicyclomine No 1{table Dicyclomin HCl 20 MG HCl 20 MG t} e HCl 20 MG Omeprazole Omeprazole No Omeprazole 40 MG 40 MG 40 MG clonazePAM clonazePAM No 1{table clonazePAM 1 MG 1 MG t} 1 MG OLANZapine OLANZapine No OLANZapine 5 MG 5 MG 5 MG FLUoxetine FLUoxetine No 1{capsu QD FLUoxetine HCl 60 MG HCl 60 MG le} HCl 60 MG Dexilant Dexilant No Dexilant Breztri Breztri No Aerosphere Aerosphere Metoprolol Metoprolol No 1{table BID Tartrate 50 Tartrate 50 t_with_ MG MG food} ALPRAZolam ALPRAZolam No 1{table BID 0.5 MG 0.5 MG t} FLUoxetine FLUoxetine No QD HCl 20 MG HCl 20 MG Atorvastati Atorvastati No 1{table QD n Calcium n Calcium t} 10 MG 10 MG Xarelto Xarelto No Starter Starter Pack 15 & Pack 15 & 20 MG 20 MG Dicyclomine Dicyclomine No 1{table HCl 20 MG HCl 20 MG t} Omeprazole Omeprazole No 40 MG 40 MG clonazePAM clonazePAM No 1{table 1 MG 1 MG t} OLANZapine OLANZapine No 5 MG 5 MG FLUoxetine FLUoxetine No 1{capsu QD HCl 60 MG HCl 60 MG le} Dexilant Dexilant No Breztri Breztri No Breztri Aerosphere Aerosphere Aerosphere Immunizations Ordered Immunization Filled Immunization Date Status Commen ts Source Name Name FLUZONE HIGH DOSE FLUZONE HIGH DOSE 2022-05-20 [facility]pleted [facility] OVER [facility] OVER 65 14[facility]18:00 - [facility] FLUZONE HIGH DOSE FLUZONE HIGH DOSE 2022-05-20 Completed [facility] OVER 65 OVER 65 14:18:00 - [facility] FLUZONE HIGH DOSE FLUZONE HIGH DOSE 2022-05-20 Completed [facility] OVER 65 OVER 65 14:18:00 - [facility] FLUZONE HIGH DOSE FLUZONE HIGH DOSE 2022-05-20 Completed [facility] OVER 65 OVER 65 14:18:00 - [facility] FLUZONE HIGH DOSE FLUZONE HIGH DOSE 2022-05-20 Completed [facility] OVER 65 OVER 65 14:18:00 - [facility] Afluria Afluria 2021-03-26 Completed [facility] 09:44:00 - [facility] Afluria Afluria 2021-03-26 Completed [facility] 09:44:00 - [facility] Afluria Afluria 2021-03-26 Completed [facility] 09:44:00 - [facility] Afluria Afluria 2021-03-26 Completed [facility] 09:44:00 - [facility] Afluria Afluria 2021-03-26 Completed [facility] 09[facility]44:00 - [facility] Afluria Afluria 2021-03-26 Completed [facility] 09:44:00 - [facility] Afluria Afluria 2021-03-26 Completed [facility] 09:44:00 - [facility] Afluria Afluria 2021-03-26 Completed [facility] 09:44:00 - [facility] Afluria Afluria 2021-03-26 Completed [facility] 09:44:00 - [facility] Afluria Afluria 2021-03-26 Completed [facility] 09:44:00 - [facility] Afluria Afluria 2021-03-26 Completed [facility] 09:44:00 - [facility] Afluria Afluria 2021-03-26 Completed [facility] 09:44:00 - [facility] Afluria Afluria 2021-03-26 Completed [facility] 09:44:00 - [facility] Afluria Afluria 2021-03-26 Completed [facility] 09:44:00 - [facility] Afluria Afluria 2021-03-26 Completed [facility] 09:44:00 - [facility] Afluria Afluria 2021-03-26 Completed [facility] 09:44:00 - [facility] Afluria Afluria 2021-03-26 Completed [facility] 09:44:00 - [facility] Afluria Afluria 2021-03-26 Completed [facility] 09:44:00 - [facility] Afluria Afluria 2021-03-26 Completed [facility] 09:44:00 [facility] Afluria Afluria 2021-03-26 Completed [facility] 09:44:00 [facility] Afluria Afluria 2021-03-26 Completed [facility] 09:44:00 - [facility] Afluria Afluria 2021-03-26 Completed [facility] 09:44:00 - [facility] Afluria Afluria 2021-03-26 Completed [facility] 09:44:00 [facility] Afluria Afluria 2021-03-26 Completed [facility] 09:44:00 [facility] Afluria Afluria 2021-03-26 Completed [facility] 09:44:00 [facility] Afluria Afluria 2021-03-26 Completed [facility] 09:44:00 [facility] Afluria Afluria 2021-03-26 Completed [facility] 09:44:00 - [facility] Afluria Afluria 2021-03-26 Completed [facility] 09:44:00 - [facility] Afluria Afluria 2021-03-26 Completed [facility] 09:44:00 [facility] Afluria Afluria 2021-03-26 Completed [facility] 09:44:00 [facility] Afluria Afluria 2021-03-26 Completed [facility] 09:44:00 [facility] Afluria Afluria 2021-03-26 Completed [facility] 09:44:00 - [facility] Afluria Afluria 2021-03-26 Completed [facility] 09:44:00 - [facility] Afluria Afluria 2021-03-26 Completed [facility] 09:44:00 [facility] Afluria Afluria 2021-03-26 Completed [facility] 09:44:00 - [facility] Afluria Afluria 2021-03-26 Completed [facility] 09:44:00 - [facility] Afluria Afluria 2021-03-26 Completed [facility] 09:44:00 - [facility] Pneumovax (PPSV23) Pneumovax (PPSV23) 2020-03-20 Completed [facility] 11:22:00 [facility] Pneumovax (PPSV23) Pneumovax (PPSV23) 2020-03-20 Completed [facility] 11:22:00 [facility] Pneumovax (PPSV23) Pneumovax (PPSV23) 2020-03-20 Completed [facility] 11:22:00 [facility] Pneumovax (PPSV23) Pneumovax (PPSV23) 2020-03-20 Completed [facility] 11:22:00 [facility] Pneumovax (PPSV23) Pneumovax (PPSV23) 2020-03-20 Completed [facility] 11:22:00 [facility] Pneumovax (PPSV23) Pneumovax (PPSV23) 2020-03-20 Completed [facility] 11:22:00 [facility] Pneumovax (PPSV23) Pneumovax (PPSV23) 2020-03-20 Completed [facility] 11:22:00 [facility] Pneumovax (PPSV23) Pneumovax (PPSV23) 2020-03-20 Completed [facility] 11:22:00 [facility] Pneumovax (PPSV23) Pneumovax (PPSV23) 2020-03-20 Completed [facility] 11:22:00 [facility] Pneumovax (PPSV23) Pneumovax (PPSV23) 2020-03-20 Completed [facility] 11:22: [facility] Pneumovax (PPSV23) Pneumovax (PPSV23) 2020-03-20 Completed [facility] 11:22: [facility] Pneumovax (PPSV23) Pneumovax (PPSV23) 2020-03-20 Completed [facility] 11:: [facility] Pneumovax (PPSV23) Pneumovax (PPSV23) 2020-03-20 Completed [facility] 11:: [facility] Pneumovax (PPSV23) Pneumovax (PPSV23) 2020-03-20 Completed [facility] 11:: [facility] Pneumovax (PPSV23) Pneumovax (PPSV23) 2020-03-20 Completed [facility] 11:: [facility] Pneumovax (PPSV23) Pneumovax (PPSV23) 2020-03-20 Completed [facility] 11:: [facility] Pneumovax (PPSV23) Pneumovax (PPSV23) 2020-03-20 Completed [facility] 11:22: [facility] Pneumovax (PPSV23) Pneumovax (PPSV23) 2020-03-20 Completed [facility] 11:22: [facility] Pneumovax (PPSV23) Pneumovax (PPSV23) 2020-03-20 Completed [facility] 11:: [facility] Pneumovax (PPSV23) Pneumovax (PPSV23) 2020-03-20 Completed [facility] 11:22: [facility] Pneumovax (PPSV23) Pneumovax (PPSV23) 2020-03-20 Completed [facility] 11:22:00 [facility] Pneumovax (PPSV23) Pneumovax (PPSV23) 2020-03-20 Completed [facility] 11:22:00 [facility] Pneumovax (PPSV23) Pneumovax (PPSV23) 2020-03-20 Completed [facility] 11:22:00 [facility] Pneumovax (PPSV23) Pneumovax (PPSV23) 2020-03-20 Completed [facility] 11:22: [facility] Pneumovax (PPSV23) Pneumovax (PPSV23) 2020-03-20 Completed [facility] 11:22: [facility] Pneumovax (PPSV23) Pneumovax (PPSV23) 2020-03-20 Completed [facility] 11:: [facility] Pneumovax (PPSV23) Pneumovax (PPSV23) 2020-03-20 Completed [facility] 11:: [facility] Pneumovax (PPSV23) Pneumovax (PPSV23) 2020-03-20 Completed [facility] 11:: [facility] Pneumovax (PPSV23) Pneumovax (PPSV23) 2020-03-20 Completed [facility] 11:: [facility] Pneumovax (PPSV23) Pneumovax (PPSV23) 2020-03-20 Completed [facility] 11:: [facility] Pneumovax (PPSV23) Pneumovax (PPSV23) 2020-03-20 Completed [facility] 11:: [facility] Pneumovax (PPSV23) Pneumovax (PPSV23) 2020-03-20 Completed [facility] 11:22: [facility] Pneumovax (PPSV23) Pneumovax (PPSV23) 2020-03-20 Completed [facility] 11:: [facility] Pneumovax (PPSV23) Pneumovax (PPSV23) 2020-03-20 Completed [facility] 11:22: [facility] Pneumovax (PPSV23) Pneumovax (PPSV23) 2020-03-20 Completed [facility] 11:: [facility] Pneumovax (PPSV23) Pneumovax (PPSV23) 2020-03-20 Completed [facility] 11::00 [facility] Pneumovax (PPSV23) Pneumovax (PPSV23) 2020-03-20 Completed [facility] 11::00 [facility] Afluria single dose Afluria single dose 2020-03-20 Completed [facility] 11:: [facility] Afluria single dose Afluria single dose 2020-03-20 Completed [facility] 11:: [facility] Afluria single dose Afluria single dose 2020-03-20 Completed [facility] 11:: [facility] Afluria single dose Afluria single dose 2020-03-20 Completed [facility] 11:: [facility] Afluria single dose Afluria single dose 2020-03-20 Completed [facility] 11:: [facility] Afluria single dose Afluria single dose 2020-03-20 Completed [facility] 11:: [facility] Afluria single dose Afluria single dose 2020-03-20 Completed [facility] 11:: [facility] Afluria single dose Afluria single dose 2020-03-20 Completed [facility] 11:: [facility] Afluria single dose Afluria single dose 2020-03-20 Completed [facility] 11:: [facility] Afluria single dose Afluria single dose 2020-03-20 Completed [facility] 11:: [facility] Afluria single dose Afluria single dose 2020-03-20 Completed [facility] 11:: [facility] Afluria single dose Afluria single dose 2020-03-20 Completed [facility] 11:: [facility] Afluria single dose Afluria single dose 2020-03-20 Completed [facility] 11:: [facility] Afluria single dose Afluria single dose 2020-03-20 Completed [facility] 11::00 [facility] Afluria single dose Afluria single dose 2020-03-20 Completed [facility] 11:: [facility] Afluria single dose Afluria single dose 2020-03-20 Completed [facility] 11:: [facility] Afluria single dose Afluria single dose 2020-03-20 Completed [facility] 11:: [facility] Afluria single dose Afluria single dose 2020-03-20 Completed [facility] 11:: [facility] Afluria single dose Afluria single dose 2020-03-20 Completed [facility] 11:: [facility] Afluria single dose Afluria single dose 2020-03-20 Completed [facility] 11:: [facility] Afluria single dose Afluria single dose 2020-03-20 Completed [facility] 11:: [facility] Afluria single dose Afluria single dose 2020-03-20 Completed [facility] 11:: [facility] Afluria single dose Afluria single dose 2020-03-20 Completed [facility] 11:: [facility] Afluria single dose Afluria single dose 2020-03-20 Completed [facility] 11:: [facility] Afluria single dose Afluria single dose 2020-03-20 Completed [facility] 11:: [facility] Afluria single dose Afluria single dose 2020-03-20 Completed [facility] 11:: [facility] Afluria single dose Afluria single dose 2020-03-20 Completed [facility] 11:: [facility] Afluria single dose Afluria single dose 2020-03-20 Completed [facility] 11:: [facility] Afluria single dose Afluria single dose 2020-03-20 Completed [facility] 11:: [facility] Afluria single dose Afluria single dose 2020-03-20 Completed [facility] 11:: [facility] Afluria single dose Afluria single dose 2020-03-20 Completed [facility] 11:: [facility] Afluria single dose Afluria single dose 2020-03-20 Completed [facility] 11:: [facility] Afluria single dose Afluria single dose 2020-03-20 Completed [facility] 11:: [facility] Afluria single dose Afluria single dose 2020-03-20 Completed [facility] 11:21:00 - [facility] Afluria single dose Afluria single dose 2020-03-20 Completed [facility] 11:21:00 - [facility] Afluria single dose Afluria single dose 2020-03-20 Completed [facility] 11:21:00 - [facility] Afluria single dose Afluria single dose 2020-03-20 Completed [facility] 11:21:00 - [facility] Vital Signs Vital Name Observation Time Observation Value Comments Source height 2022-05-31 10:30:00 60 [in_i] [facility] weight 2022-05-31 10:30:00 143 [lb_av] [facility] temperature 2022-05-31 10:30:00 97.2 [degF] [facility] bmi 2022-05-31 10:30:00 27.92 kg/m2 [facility] blood pressure 2022-05-31 10:30:00 134 mm[Hg] [facility] - systolic [facility] blood pressure 2022-05-31 10:30:00 62 mm[Hg] [facility] - diastolic [facility] height 2022-05-20 13:50:00 60 [in_i] [facility] weight 2022-05-20 13:50:00 144.2 [lb_av] [facility] temperature 2022-05-20 13:50:00 97.6 [degF] [facility] bmi 2022-05-20 13:50:00 28.16 kg/m2 [facility] oximetry 2022-05-20 13:50:00 97 % [facility] respiratory rate 2022-05-20 13:50:00 17 /min [facility] blood pressure 2022-05-20 13:50:00 131 mm[Hg] [facility] - systolic [facility] blood pressure 2022-05-20 13:50:00 60 mm[Hg] [facility] - diastolic [facility] height 2022-03-24 10:10:00 60 [in_i] [facility] weight 2022-03-24 10:10:00 141.8 [lb_av] [facility] temperature 2022-03-24 10:10:00 97.3 [degF] [facility] bmi 2022-03-24 10:10:00 27.69 kg/m2 [facility] oximetry 2022-03-24 10:10:00 98 % [facility] respiratory rate 2022-03-24 10:10:00 18 /min [facility] blood pressure 2022-03-24 10:10:00 132 mm[Hg] [facility] - systolic [facility] blood pressure 2022-03-24 10:10:00 72 mm[Hg] [facility] - diastolic [facility] height 2022-01-05 13:30:00 60 [in_i] [facility] weight 2022-01-05 13:30:00 139 [lb_av] [facility] bmi 2022-01-05 13:30:00 27.14 kg/m2 [facility] blood pressure 2022-01-05 13:30:00 112 mm[Hg] [facility] - systolic [facility] blood pressure 2022-01-05 13:30:00 78 mm[Hg] [facility] - diastolic [facility] height 2021-12-02 09:50:00 60 [in_i] [facility] weight 2021-12-02 09:50:00 131.6 [lb_av] [facility] temperature 2021-12-02 09:50:00 97.3 [degF] [facility] bmi 2021-12-02 09:50:00 25.7 kg/m2 [facility] oximetry 2021-12-02 09:50:00 99 % Common S pirit - [facility] respiratory rate 2021-12-02 09:50:00 17 /min Comm on Spirit - [facility] blood pressure 2021-12-02 09:50:00 119 mm[Hg] Common [facility] - systolic [facility] blood pressure 2021-12-02 09:50:00 58 mm[Hg] Common [facility] - diastolic [facility] height 2021-10-06 15:00:00 60 [in_i] Common S pirit - [facility] weight 2021-10-06 15:00:00 132.4 [lb_av] Common [facility] bmi 2021-10-06 15:00:00 25.85 kg/m2 Common S pirit - [facility] blood pressure 2021-10-06 15:00:00 104 mm[Hg] Common [facility] - systolic [facility] blood pressure 2021-10-06 15:00:00 58 mm[Hg] Common [facility] - diastolic [facility] height 2021-09-07 14:30:00 60 [in_i] Common S pirit - [facility] weight 2021-09-07 14:30:00 132 [lb_av] Common S pirit [facility] bmi 2021-09-07 14:30:00 25.78 kg/m2 Common S pirit - [facility] blood pressure 2021-09-07 14:30:00 134 mm[Hg] Common Spirit - systolic [facility] blood pressure 2021-09-07 14:30:00 84 mm[Hg] Common [facility] - diastolic [facility] height 2021-07-30 14:30:00 60 [in_i] Common S pirit - [facility] weight 2021-07-30 14:30:00 132 [lb_av] Common S pirit - [facility] temperature 2021-07-30 14:30:00 98.0 [degF] Common S pirit - [facility] bmi 2021-07-30 14:30:00 25.78 kg/m2 Common S pirit - [facility] blood pressure 2021-07-30 14:30:00 112 mm[Hg] Common [facility] - systolic [facility] blood pressure 2021-07-30 14:30:00 72 mm[Hg] Common [facility] - diastolic [facility] height 2021-07-06 09:20:00 60 [in_i] [facility] weight 2021-07-06 09:20:00 131.4 [lb_av] Common [facility] temperature 2021-07-06 09:20:00 97.9 [degF] Common S pirit [facility] bmi 2021-07-06 09:20:00 25.66 kg/m2 Common S [facility] oximetry 2021-07-06 09:20:00 99 % [facility] respiratory rate 2021-07-06 09:20:00 18 /min Comm on Spirit - [facility] blood pressure 2021-07-06 09:20:00 121 mm[Hg] Common [facility] - systolic [facility] blood pressure 2021-07-06 09:20:00 57 mm[Hg] Common [facility] - diastolic [facility] height 2021-07-06 08:30:00 60 [in_i] Common S [facility] weight 2021-07-06 08:30:00 131.4 [lb_av] [facility] temperature 2021-07-06 08:30:00 97.9 [degF] Common S pirit [facility] bmi 2021-07-06 08:30:00 25.66 kg/m2 [facility] 2021-07-06 08:30:00 99 % Common S pirit [facility] blood pressure 2021-07-06 08:30:00 121 mm[Hg] Common Spirit - systolic [facility] blood pressure 2021-07-06 08:30:00 57 mm[Hg] Common [facility] - diastolic [facility] height 2021-05-28 14:45:00 60 [in_i] Common S pirit [facility] weight 2021-05-28 14:45:00 132 [lb_av] [facility] temperature 2021-05-28 14:45:00 97.8 [degF] Common S pirit [facility] bmi 2021-05-28 14:45:00 25.78 kg/m2 Common S pirit [facility] blood pressure 2021-05-28 14:45:00 124 mm[Hg] Common [facility] - systolic [facility] blood pressure 2021-05-28 14:45:00 80 mm[Hg] Common [facility] - diastolic [facility] height 2021-05-21 14:30:00 60 [in_i] Common [facility] weight 2021-05-21 14:30:00 132 [lb_av] Common [facility] temperature 2021-05-21 14:30:00 97.6 [degF] [facility] bmi 2021-05-21 14:30:00 25.78 kg/m2 Common S [facility] blood pressure 2021-05-21 14:30:00 112 mm[Hg] Common [facility] - systolic [facility] blood pressure 2021-05-21 14:30:00 74 mm[Hg] Common [facility] - diastolic [facility] height 2021-04-07 09:30:00 60 [in_i] [facility] weight 2021-04-07 09:30:00 132.6 [lb_av] Common [facility] temperature 2021-04-07 09:30:00 97.7 [degF] Common [facility] bmi 2021-04-07 09:30:00 25.89 kg/m2 [facility] oximetry 2021-04-07 09:30:00 97 % [facility] respiratory rate 2021-04-07 09:30:00 16 /min Comm on [facility] blood pressure 2021-04-07 09:30:00 121 mm[Hg] Common [facility] - systolic [facility] blood pressure 2021-04-07 09:30:00 56 mm[Hg] Common [facility] - diastolic [facility] height 2021-03-26 09:50:00 60 [in_i] Common [facility] weight 2021-03-26 09:50:00 131.4 [lb_av] Common [facility] temperature 2021-03-26 09:50:00 97.5 [degF] Common [facility] bmi 2021-03-26 09:50:00 25.66 kg/m2 [facility] S [facility] oximetry 2021-03-26 09:50:00 98 % [facility] respiratory rate 2021-03-26 09:50:00 17 /min Comm on [facility] blood pressure 2021-03-26 09:50:00 113 mm[Hg] Common [facility] - systolic [facility] blood pressure 2021-03-26 09:50:00 56 mm[Hg] Common [facility] - diastolic [facility] Procedures This patient has no known procedures. Encounters Start End Encounter Admission Attending Care Care Encounter Source Date/Time Date/Time Type Type Clinicians Facility Department ID 2022-06-03 Outpatient [facility] [id number] [place] 16:40:39 [id number] Health 2022-05-31 Outpatient [place], STLMLC STLMLC [id number] Common 11:39:01 [facility] 2022-05-19 Outpatient [place], STLMLC STLMLC [id number] Common 14:43:00 [facility] 2022-04-23 Outpatient [place], STLMLC STLMLC [id number] Common 11:17:01 [facility] 2022-04-17 Outpatient [place], STLMLC STLMLC [id number] Common 11:08:00 [facility] 2022-01-06 Outpatient [place], STLMLC STLC [id number] Common 13:28:00 [facility] 2021-11-02 Outpatient [place], STLMLC STLMLC [id number] Common 09:01:18 [facility] 2021-09-21 Outpatient [place], STLMLC STLMLC [id number] Common 13:05:01 N[facility]al [facility] 2021-07-29 Outpatient [place], STLMLC STLMLC [id number] Common 10:19:01 N[place] 2021-07-08 Outpatient [place], STLMLC STLC [id number] Common 14:39:04 Nirmal [facility] 2021-07-08 Outpatient [place], STLMLC STLC [id number] Common 14:11:57 Nirmal 96861 [facility] 2021-07-08 Outpatient [place], STLMLC STLC [id number] Common 14:09:54 Nirmal 03564 [facility] 2021-07-08 Outpatient [place], STLMLC STLC [id number] Common 12:46:03 Nirmal 42245 [facility] 2021-07-08 Outpatient [place], STLMLC STLC [id number] Common 12:36:17 N[place]al 59608 [facility] 2021-07-08 Outpatient [place], STLMLC STLC [id number] Common 12:17:58 Nirmal 33462 [facility] 2021-07-08 Outpatient [place], STLMLC STLMLC [id number] Common 11:28:21 N[place]al 04038 [facility] 2021-07-08 Outpatient [place], STLMLC STLC [id number] Common 11:18:20 Nirmal 36875 [facility] 2021-07-08 Outpatient [place], STLMLC STLMLC [id number] Common 11:13:47 Nirmal 17669 [facility] 2021-07-08 Outpatient [place], STLMLC STLMLC [id number] Common 11:09:58 [facility] 91016 [facility] 2021-07-08 Outpatient [place], STLMLC STLMLC [id number] Common 11:08:14 [facility] 19090 [facility] 2021-04-13 Outpatient R MARIA ALEJANDRA, [facility] GIE [id number] Univers 11:39:26 [facility] 2021-04-12 Outpatient R MARIA ALEJANDRA, [facility] GIE [id number] Univers 23:35:55 [facility] 2021-04-11 Outpatient R MARIA ALEJANDRA, [facility] GIE [id number] Univers 21:31:44 [facility] 2022-06-22 2022-06-22 Outpatient ROSA, [facility] [id number] [place] 11:00:00 11:00:00 [facility] 2022-06-02 2022-06-02 (TEL) STLMLC STLMLC [id number] Co mmon 00:00:00 00:00:00 [facility] 2022-06-01 2022-06-01 (TEL) STLMLC STLMLC [id number] Co mmon 00:00:00 00:00:00 [facility] 2022-05-31 2022-05-31 OFFICE STLMLC STLMLC [id number] Co mmon 00:00:00 00:00:00 VISIT EST Spir it PT LEVEL 3 - CHI [facility] 2022-05-25 2022-05-25 (TEL) STLMLC STLMLC [id number] Co mmon 00:00:00 00:00:00 [facility] 2022-05-20 2022-05-20 OFFICE STLMLC STLMLC [id number] Co mmon 00:00:00 00:00:00 VISIT Spirit ESTAB PT - CHI LEVEL 4 [facility] 2022-04-23 2022-04-23 (TEL) STLMLC STLMLC [id number] Co mmon 00:00:00 00:00:00 [facility] 2022-04-16 2022-04-16 (TEL) STLMLC STLMLC [id number] Co mmon 00:00:00 00:00:00 [facility] 2022-03-30 2022-03-30 (TEL) STLMLC STLMLC [id number] Co mmon 00:00:00 00:00:00 [facility] 2022-03-24 2022-03-24 (HOSP F/U) STLMLC STLMLC [id number] Common 00:00:00 00:00:00 [facility] 2022-03-14 2022-03-14 (TEL) STLMLC STLMLC [id number] Co mmon 00:00:00 00:00:00 [facility] 2022-03-10 2022-03-10 (TEL) STLMLC STLMLC [id number] Co mmon 00:00:00 00:00:00 [facility] 2022-03-09 2022-03-09 (TEL) STLMLC STLMLC [id number] Co mmon 00:00:00 00:00:00 [facility] 2022-02-03 2022-02-03 (TEL) STLMLC STLMLC [id number] Co mmon 00:00:00 00:00:00 [facility] 2022-01-08 2022-01-08 (TEL) STLMLC STLMLC [id number] Co mmon 00:00:00 00:00:00 [facility] 2022-01-05 2022-01-05 OFFICE STLMLC STLMLC [id number] Co mmon 00:00:00 00:00:00 VISIT [facility] PT - CHI LEVEL 4 [facility] 2021-12-07 2021-12-07 (TEL) STLMLC STLMLC [id number] Co mmon 00:00:00 00:00:00 [facility] 2021-12-02 2021-12-02 OFFICE STLMLC STLMLC [id number] Co mmon 00:00:00 00:00:00 VISIT Spirit ESTAB PT - CHI LEVEL 4 [facility] 2021-10-06 2021-10-06 OFFICE STLMLC STLMLC [id number] Co mmon 00:00:00 00:00:00 VISIT Spirit ESTAB PT - CHI LEVEL 4 [facility] 2021-09-07 2021-09-07 OFFICE STLMLC STLMLC [id number] Co mmon 00:00:00 00:00:00 VISIT Spirit ESTAB PT - CHI LEVEL 4 [facility] 2021-08-13 2021-08-13 (TEL) STLMLC STLMLC [id number] Co mmon 00:00:00 00:00:00 Spirit - [facility] 2021-07-31 2021-07-31 (TEL) STLMLC STLMLC [id number] Co mmon 00:00:00 00:00:00 Spirit - [facility] 2021-07-30 2021-07-30 OFFICE STLMLC STLMLC [id number] Co mmon 00:00:00 00:00:00 VISIT Spirit ESTAB PT - CHI LEVEL 4 [facility] 2021-07-19 2021-07-19 Refill [facility], [facility] [id number] Univers 00:00:00 00:00:[address] [facility] [id number] it y of CLEAR [id number] [facility] [phone] [address] ([facility]) 2021-07-06 2021-07-06 OFFICE STLMLC STLMLC [id number] Co mmon 00:00:00 00:00:00 VISIT Spirit ESTAB PT - CHI LEVEL 4 [facility] 2021-07-06 2021-07-06 SUB ANNUAL STLMLC STLMLC [id number] Common 00:00:00 00:00:00 MCR Spirit WELLNESS - CHI VISIT [facility] 2021-07-03 2021-07-03 (TEL) STLMLC STLMLC [id number] Co mmon 00:00:00 00:00:00 Spirit - [facility] 2021-06-23 2021-06-23 (TEL) STLMLC STLMLC [id number] Co mmon 00:00:00 00:00:00 Spirit - [facility] 2021-06-22 2021-06-22 (TEL) STLMLC STLMLC [id number] Co mmon 00:00:00 00:00:00 [facility] 2021-05-28 2021-05-28 (IN/ASP) STLMLC STLMLC [id number] C ommon 00:00:00 00:00:00 INJ ASP [facility] 2021-05-21 2021-05-21 (IN/ASP) STLMLC STLMLC [id number] C ommon 00:00:00 00:00:00 INJ ASP [facility] 2021-04-28 2021-04-28 (TEL) STLMLC STLMLC [id number] Co mmon 00:00:00 00:00:00 [facility] 2021-04-27 2021-04-27 (TEL) STLMLC STLMLC [id number] Co mmon 00:00:00 00:00:00 [facility] 2021-04-24 2021-04-24 (TEL) STLMLC STLMLC [id number] Co mmon 00:00:00 00:00:00 [facility] 2021-04-07 2021-04-07 (HOSP F/U) STLMLC STLMLC [id number] Common 00:00:00 00:00:00 [facility] 2021-04-02 2021-04-02 (TEL) STLMLC STLMLC [id number] Co mmon 00:00:00 00:00:00 [facility] 2021-03-26 2021-03-26 OFFICE STLMLC STLMLC [id number] Co mmon 00:00:00 00:00:00 VISIT [facility] LEVEL 4 [facility] 2021-03-03 2021-03-03 Outpatient STLMLC STLMLC [id number] Common 00:00:00 00:00:00 [facility] 2021-02-27 2021-02-27 Outpatient STLMLC STLMLC [id number] Common 00:00:00 00:00:00 [facility] 2021-02-25 2021-02-25 Outpatient STLMLC STLMLC [id number] Common 00:00:00 00:00:00 [facility] 2021-01-21 2021-01-21 Outpatient STLMLC STLMLC [id number] Common 00:00:00 00:00:00 [facility] 2021-01-19 2021-01-19 Outpatient STLMLC STLMLC [id number] Common 00:00:00 00:00:00 [facility] 2021-01-16 2021-01-16 Outpatient R [facility] [id number] Univers 11:30:00 11:30:00 [facility] 2020-12-24 2020-12-24 Outpatient STLMLC STLMLC [id number] Common 00:00:00 00:00:00 [facility] 2020-12-24 2020-12-24 Outpatient STLMLC STLMLC [id number] Common 00:00:00 00:00:00 [facility] 2020-12-24 2020-12-24 Outpatient STLMLC STLMLC [id number] Common 00:00:00 00:00:00 [facility] 2020-12-19 2020-12-19 Outpatient STLMLC STLMLC [id number] Common 00:00:00 00:00:00 [facility] 2020-12-18 2020-12-18 Outpatient STLMLC STLMLC [id number] Common 00:00:00 00:00:00 [facility] 2020-11-25 2020-11-25 [facility] [id number] 09:18:00 13:13:00 Encounter [facility] [id number] Clear [id number] [place] [id number] [place] [address] (CLC) 2020-11-25 2020-11-25 Surgery [facility] [id number] 11:00:00 12:14:00 Health [id number] Clear [id number] [facility]vis [id number] Hospital 020 ([facility]) 2020-11-25 2020-11-25 Refill MESHA Bess 1.2.840.114 [id number] 00:00:00 00:00:00 [facility] [id number] Clear [id number] [place] [id number] Hospital 049 ([facility]) 2020-11-25 2020-11-25 Refill MESHA Bess 1.2.840.114 [id number] 00:00:00 00:00:00 [facility] [id number] Clear [id number] [place] [id number] Hospital 049 ([facility]) 2020-11-25 2020-11-25 Orders Doctor RAY [id number] 00:00:00 00:00:00 Only Unassigned, SUSHILA [id number] [place] [facility] [id number] [id number] 2020-11-25 2020-11-25 Prep For RAY Bess [id number] 00:00:00 00:00:00 Surgery Nivia CONTI [id number] [facility] [id number] [id number] 2020-11-14 2020-11-14 Outpatient STLC STLC [id number] Common 00:00:00 00:00:00 [facility] 2020-11-12 2020-11-12 [facility] [id number] Common 00:00:00 00:00:00 [facility] 2020-11-03 2020-11-03 Prep For RAY Bess [id number] 00:00:00 00:00:00 Surgery Nivia CONTI [id number] [facility] 4.2.7.2.686 [id number] 2020-10-31 2020-10-31 Telephone MESHA Bess [id number] [id number] 00:00:00 00:00:00 [facility] SPECIALTY [id number] [facility] [id number] CENTER AT [id number] MARYSOL ROMAN 2020-10-24 2020-10-24 Outpatient STLMLC STLMLC [id number] Common 00:00:00 00:00:00 [facility] 2020-10-15 2020-10-15 Outpatient STLMLC STLMLC [id number] Common 00:00:00 00:00:00 [facility] 2020-07-23 2020-07-23 Laboratory Only, [facility] 1.2.840.114 [id number] 11:51:15 12:06:15 Only Test [place] [id number] [place] 4.2.7.2.686 [place] [id number] 2020-07-23 2020-07-23 Outpatient R [facility] [id number] Univers 11:00:00 11:00:00 [facility] 2020-07-23 2020-07-23 Orders Doctor RAY [id number] [id number] 00:00:00 00:00:00 Only Unassigned, SUSHILA [id number] [place] [id number] [id number] 2020-07-18 2020-07-18 Outpatient STLMLC STLMLC [id number] Common 00:00:00 00:00:00 [facility] 2020-07-15 2020-07-15 Office [facility] 1.2.840.114 [id number] 13:45:51 14:15:51 Visit [facility] SPECIALTY [id number] [facility] [id number] CENTER AT [id number] MARYSOL ROMAN 2020-07-15 2020-07-15 Outpatient [facility] [id number] Univers 13:45:00 13:45:00 [facility] 2020-06-18 2020-06-18 Outpatient STLMLC STLMLC [id number] Common 00:00:00 00:00:00 [facility] 2020-06-17 2020-06-17 [facility] [id number] Univers 08:30:00 08:30:00 JOE andrews [facility] 2020-06-09 2020-06-09 Outpatient R [facility] [id number] Univers 09:00:00 09:00:00 ity [facility] 2020-05-15 2020-05-15 Outpatient STLMLC STLMLC [id number] Common 00:00:00 00:00:00 [facility] 2020-05-13 2020-05-13 Outpatient R [facility] [id number] Univers 09:00:00 09:00:00 JOE andrews [facility] 2020-04-17 2020-04-17 Outpatient STLMLC STLMLC [id number] Common 00:00:00 00:00:00 [facility] 2020-04-11 2020-04-11 Outpatient STLMLC STLMLC [id number] Common 00:00:00 00:00:00 [facility] 2020-04-08 2020-04-08 Outpatient STLMLC STLMLC [id number] Common 00:00:00 00:00:00 [facility] 2020-03-20 2020-03-20 Outpatient STLMLC STLMLC [id number] Common 00:00:00 00:00:00 [facility] 2019-12-19 2019-12-19 [facility] [id number] Common 10:45:00 10:45:[address] Family [facility] 2019-12-19 2019-12-19 Out[facility] [id number] Common 10:00:00 10:00:[address] Family [facility] 2019-12-03 2019-12-03 Out[facility] [id number] Common 10:17:00 10:17:[address] Family [facility] 2019-12-03 2019-12-03 Outpatient [facility] [id number] Common 09:59:00 09:59:[address] Family [facility] 2019-11-29 2019-11-29 Outpatient [facility] [id number] Common 09:45:00 09:45:[address] [facility] 2019-11-13 2019-11-13 Out[facility] [id number] Common 11:17:00 11:17:[address] [facility] [address] [facility] 2019-11-06 2019-11-06 Outpatient [facility] [id number] Common 15:08:00 15:08:[address] [facility] 2019-11-01 2019-11-01 Outpatient [facility] [id number] Common 16:03:00 16:03:[address] [facility] 2019-10-31 2019-10-31 Out[facility] [id number] Common 09:15:00 09:15:[address] [facility] 2019-10-01 2019-10-01 Outpatient [facility] [id number] Common 10:00:00 10:00:[address] [facility] 2019-08-27 2019-08-27 Out[facility] [id number] Common 14:00:00 14:00:[address] [facility] 2019-07-30 2019-07-30 Out[facility] [id number] Common 11:00:00 11:00:[address] [facility] 2019-07-18 2019-07-18 Outpatient FERMAURICIOON_BENJIE GHOSH IAFATEMEH [id number] [place] 01:45:00 01:45:00 [place] [id number] Results This patient has no known results.
--- NOTE | 2022-06-11 08:56 | RAD REPORT ---
EXAM DESCRIPTION: RAD - Chest Single View - 06/11/2022 8:31 am CLINICAL HISTORY: Dyspnea COMPARISON: Portable 03/13/2022 TECHNIQUE: AP portable chest image was obtained 06/11/2022 8:31 am . FINDINGS: Lungs are clear of acute lung parenchymal finding. Mildly prominent baseline interstitial pattern has not changed. . Heart and vasculature are normal. No measurable pleural effusion and no pn eumothorax. No acute bone finding. Plate and screw fixation is present from old left clavicle repair. Old rib fractures noted on the right. No acute aortic findings suspected. IMPRESSION: No acute cardiopulmonary process. No significant change from comparison study.
[2022-06-11] MEDS ORDERED: ACETAMINOPHEN 325 MG TABLET ONE (09:04)
[2022-06-11] MEDS ORDERED: ONDANSETRON 4 MG/2 ML VIAL ONE (09:04)
[2022-06-11] MEDS ORDERED: NA CHLORIDE 0.9% 500 ML ONE (09:05)
[2022-06-11 09:18] LABS: Absolute Lymphocytes (CBC) 0.8 K/uL (0.7-4.9); Hematocrit 34.4 % (36.0-45.0); Lymphocytes % 5.1 % (15.3-44.8); MCV 93.5 fL (80-100); MPV 8.1 fL (7.6-11.3); RBC Red Blood Cell Count 3.68 M/uL (3.86-4.86)
[2022-06-11 09:59] LABS: SARS-COV-2 RT PCR NEGATIVE (NEGATIVE)
[2022-06-11 10:28] LABS: Protime INR 1.19
[2022-06-11 12:13] LABS: Urine Blood Trace-intact (Negative); Urine Glucose Negative (Negative); Urine Protein Trace (Negative); Urine Specific Gravity 1.025 (1.005-1.030); Urine pH 5.5 (5.0-7.0)
[2022-06-11 12:26] LABS: Urine Bacteria None Seen /HPF (<20); Urine Crystals Unidentified Few /HPF (None Seen); Urine Mucus Slight /HPF (None Seen); Urine RBC <5 /HPF (None Seen)
[2022-06-11 14:36] LABS: ALT/SGPT 46 U/L (13-56); AST/SGOT 25 U/L (15-37); Albumin 3.6 g/dL (3.4-5.0); Alkaline Phosphatase 115 U/L (45-117); BUN Blood Urea Nitrogen 37 mg/dL (7-18); Bicarbonate 27 mmol/L (21-32); Bilirubin Total 0.2 mg/dL (0.2-1.0); Glomerular Filtration Rate 49 ml/min (=/>90); Glucose Level 104 mg/dL (74-106); Magnesium 2.1 mg/dL (1.6-2.4); NT PRO-BNP 324 pg/mL (<125); Potassium 4.7 mmol/L (3.5-5.1); Protein, Total 7.5 g/dL (6.4-8.2); Sodium Level 135 mmol/L (136-145); Troponin High Sensitivity 7.9 pg/mL (<58.9)
[2022-06-11 14:38] LABS: Bilirubin Direct < 0.1 mg/dL (0-0.2)
--- NOTE | 2022-06-11 14:47 | ER ---
Nurse's Notes [facility] Name: Martha Pradhan Age: 61 yrs Sex: Female : 1960 Arrival Date: 06/11/2022 Time: 07:15 Bed 20 Private MD: Diagnosis: Cough;Dehydration;UTI/ Urinary tract infection, site not specified Presentation: 06/11 07:49 Chief complaint: Patient states: has been coughing and diff breathing and trouble iw walking and I've been vomiting, started yesterday , i've also had diarrhea , has vomited 5 times since yesterday , no fever. Coronavirus screen: Client presents with at least one sign or symptom that may indicate coronavirus-19. Ebola Screen: Patient negative for fever greater than or equal to 101.5 degrees Fahrenheit, and additional compatible Ebola Virus Disease symptoms Patient denies exposure to infectious person. Patient denies travel to an Ebola-affected area in the 21 days before illness onset. No symptoms or risks identified at this time. Initial Sepsis Screen: Does the patient meet any 2 criteria? No. Patient's initial sepsis screen is negative. Does the patient have a suspected source of infection? No. Patient's initial sepsis screen is negative. Risk Assessment: Do you want to hurt yourself or someone else? Patient reports no desire to harm self or others. Onset of symptoms was June 10, 2022. 07:49 Method Of Arrival: Wheelchair iw 07:49 Acuity: ROSALBA 3 iw Historical: - Allergies: 07:51 haloperidol lactate; iw 07:51 hydroxyzine HCl; iw 07:51 Hydroxyzine Pamoate; iw 07:51 Ibuprofen; iw 07:51 Lyrica; iw 07:51 meloxicam; iw 07:51 nalbuphine HCl; iw 07:51 Naproxen; iw 07:51 NSAIDS (Non-Steroidal Anti-Inflammatory Drug); iw 07:51 Nubain; iw 07:51 Risperdal; iw 07:51 Vistaril; iw - Home Meds: 07:51 dicyclomine 20 mg Oral tab 1 tab daily [Active]; metoprolol tartrate 50 mg Oral tab 1 iw tab 2 times per day [Active]; olanzapine Oral 1 tab once daily [Active]; Prozac 40 mg Oral cap 1 cap once daily [Active]; - PMHx: 07:51 ADD/ADHD; Anxiety; bleeding ulcers; Arthritis; Back pain; Chronic pain; GERD; Irritable iw bowel syndrome; Osteoporosis; PE; restless leg syndrome; Tachycardia; - PSHx: 07:51 Appendectomy; hysterectomy; left clavicle repair; iw - Immunization history:: Client reports receiving the 2nd dose of the Covid vaccine. - Social history:: Smoking status: Patient/guardian denies using tobacco, but has a distant history of tobacco abuse. - Family history:: not pertinent. - Hospitalizations: : No recent hospitalization is reported. Screenin:30 [facility] ED Fall Risk Assessment (Adult) Score/Fall Risk Level 0 - 2 = Low Risk hb Oriented to surroundings, Maintained a safe environment. Abuse screen: Denies threats or abuse. Denies injuries from another. Nutritional screening: No deficits noted. Tuberculosis screening: No symptoms or risk factors identified. Assessment: 08:10 General: Appears in no apparent distress. Behavior is calm, cooperative. Pain: Pain hb currently is 3 out of 10 on a pain scale. Neuro: Level of Consciousness is awake, alert, obeys commands, Oriented to person, place, time, situation, Reports headache. Cardiovascular: Patient's skin is warm and dry. Respiratory: Reports cough that is Respiratory effort is even, unlabored, Respiratory pattern is regular, symmetrical. GI: Reports nausea. : No signs and/or symptoms were reported regarding the genitourinary system. EENT: No signs and/or symptoms were reported regarding the EENT system. Derm: Skin is pink, warm \T\ dry. Musculoskeletal: Reports body aches. 10:46 Reassessment: Patient appears in no apparent distress at this time. Patient and/or hb family updated on plan of care and expected duration. Pain level reassessed. Patient is alert, oriented x 3, equal unlabored respirations, skin warm/dry/pink. 11:14 Reassessment: Patient appears in no apparent distress at this time. Patient and/or hb family updated on plan of care and expected duration. Pain level reassessed. Patient is alert, oriented x 3, equal unlabored respirations, skin warm/dry/pink. 12:00 Reassessment: Report received from RN. wesly Dawson9 12:30 General: Appears comfortable, Behavior is calm, cooperative, appropriate for age. Pain: mb9 Complains of pain in whole body Pain currently is 3 out of 10 on a pain scale. Quality of pain is described as aching. Neuro: Level of Consciousness is awake, alert, obeys commands, Oriented to person, place, time, situation. Cardiovascular: Rhythm is regular. Respiratory: Airway is patent Respiratory effort is even, unlabored, Respiratory pattern is regular, symmetrical. Respiratory: Reports cough that is non-productive, pain with cough. GI: Reports nausea. : Urine is cloudy. EENT: No signs and/or symptoms were reported regarding the EENT system. Derm: Skin is pink, warm \T\ dry. Musculoskeletal: Reports body aches. 12:57 Reassessment: spoke to inside lab to recollect pts blood. mb9 13:38 Reassessment: Lab at bedside. mb9 14:21 Reassessment: pt states her throat hurts from coughing. Pt states pain is 7/10. , che Rivera, notified. No new orders at this time. 14:55 Reassessment: No changes from previously documented assessment. Patient states feeling mb9 better. Neuro: Level of Consciousness is awake, alert, obeys commands. Respiratory: Airway is patent. Derm: Skin is pink, warm \T\ dry. Vital Signs: 07:49 BP 109 / 42; Pulse 105; Resp 16; Temp 99(O); Pulse Ox 96% on R/A; Weight 65.77 kg; iw Height 5 ft. 0 in. (152.40 cm); 09:21 BP 108 / 38; Pulse 84; Resp 19; Pulse Ox 99% on R/A; hb 10:30 BP 111 / 53; Pulse 81; Resp 15; Pulse Ox 96% ; hb 11:13 BP 116 / 65; Pulse 85; Resp 15; Pulse Ox 99% on R/A; hb 12:30 BP 122 / 60; Pulse 83; Resp 16; Pulse Ox 100% on R/A; Pain 3/10; mb9 14:38 BP 103 / 58; Pulse 93; Resp 18; Pulse Ox 98% on R/A; mb9 07:49 Body Mass Index 28.32 (65.77 kg, 152.40 cm) iw ED Course: 07:15 Patient arrived in ED. rg4 07:15 Bryon Rivera MD is Attending Physician. rn 07:51 Triage completed. iw 07:52 Arm band placed on. iw 08:32 XRAY CXR (1 view) In Process Unspecified. EDMS 09:00 Eunice Metzger RN is Primary Nurse. hb 09:00 Inserted saline lock: 22 gauge in right forearm, using aseptic technique. hb 10:31 IV discontinued, intact, bleeding controlled, No redness/swelling at site. Pressure rs5 dressing applied. 10:46 Patient has correct armband on for positive identification. hb 14:55 No provider procedures requiring assistance completed. mb9 Administered Medications: 09:21 Drug: Zofran (Ondansetron) 4 mg Route: IVP; Site: right forearm; hb 09:21 Drug: NS 0.9% 500 ml Route: IV; Rate: bolus; Site: right forearm; hb 09:21 Drug: Tylenol 325 mg Route: PO; hb 14:54 Drug: Zithromax (azithromycin) 500 mg Route: PO; mb9 14:55 Drug: Ondansetron 4 mg Route: PO; mb9 Medication: 10:46 VIS not applicable for this client. hb Outcome: 14:46 Discharge ordered by . rn 14:55 Discharged to home via wheelchair. mb9 14:55 Condition: stable 14:55 Discharge instructions given to patient, Instructed on discharge instructions, follow up and referral plans. Demonstrated understanding of instructions, follow-up care, medications, Prescriptions given X 3. 14:59 Patient left the ED. mb9 Signatures: Dispatcher [employer] EDYessy Ruiz RN RN Bryon Rivera MD MD rn Baxter, Heather, RN RN Ashley Morocho rg4 Annie Espinoza RN RN mb9 Otoniel Ruiz rs5 Corrections: (The following items were deleted from the chart) 07:53 07:49 Pulse 90bpm; Resp 16bpm; Pulse Ox 95% RA; 65.77 kg; Height 5 ft. 0 in.; BMI: iw 28.3; iw 10:31 10:30 BP 114 / 60; Pulse 81bpm; Resp 15bpm; Pulse Ox 96%; hb hb
--- NOTE | 2022-06-11 14:47 | EDPHYS ---
Physician Documentation [facility] Name: Martha Pradhan Age: 61 yrs Sex: Female : 1960 Arrival Date: 06/11/2022 Time: 07:15 Bed 20 Private MD: ED Physician Bryon Rivera HPI: 06/11 08:53 This 61 yrs old Female presents to ER via Wheelchair with complaints of Cough, rn Breathing Difficulty. 08:53 The patient or guardian reports cough, difficulty breathing, flu symptoms, low-grade rn fever. Onset: The symptoms/episode began/occurred yesterday. Severity of symptoms: At their worst the symptoms were moderate, in the emergency department the symptoms are unchanged. Modifying factors: The symptoms are alleviated by nothing, the symptoms are aggravated by nothing. Associated signs and symptoms: Pertinent positives: diarrhea, fever, nausea, rhinorrhea, sore throat, vomiting, Pertinent negatives: chest pain. The patient has not experienced similar symptoms in the past. The patient has not recently seen a physician. Historical: - Allergies: 07:51 haloperidol lactate; iw 07:51 hydroxyzine HCl; iw 07:51 Hydroxyzine Pamoate; iw 07:51 Ibuprofen; iw 07:51 Lyrica; iw 07:51 meloxicam; iw 07:51 nalbuphine HCl; iw 07:51 Naproxen; iw 07:51 NSAIDS (Non-Steroidal Anti-Inflammatory Drug); iw 07:51 Nubain; iw 07:51 Risperdal; iw 07:51 Vistaril; iw - Home Meds: 07:51 dicyclomine 20 mg Oral tab 1 tab daily [Active]; metoprolol tartrate 50 mg Oral tab 1 iw tab 2 times per day [Active]; olanzapine Oral 1 tab once daily [Active]; Prozac 40 mg Oral cap 1 cap once daily [Active]; - PMHx: 07:51 ADD/ADHD; Anxiety; bleeding ulcers; Arthritis; Back pain; Chronic pain; GERD; Irritable iw bowel syndrome; Osteoporosis; PE; restless leg syndrome; Tachycardia; - PSHx: 07:51 Appendectomy; hysterectomy; left clavicle repair; iw - Immunization history:: Client reports receiving the 2nd dose of the Covid vaccine. - Social history:: Smoking status: Patient/guardian denies using tobacco, but has a distant history of tobacco abuse. - Family history:: not pertinent. - Hospitalizations: : No recent hospitalization is reported. 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 Abdomen/GI: + nausea/vomiting/diarrhea Back: Negative for injury and pain, MS/Extremity: Negative for injury and deformity, Skin: Negative for injury, rash, and discoloration, Neuro: + generalized weakness Exam: 08:53 Constitutional: This is a well developed, well nourished patient who is awake, alert, rn and in no acute distress. Head/Face: Normocephalic, atraumatic. Eyes: Periorbital areas with no swelling, redness, or edema. ENT: No stridor, dry MM Neck: Trachea midline, no masses palpated, and no cervical lymphadenopathy. Supple, full range of motion without nuchal rigidity, or vertebral point tenderness. No Meningismus. Cardiovascular: Tachycardic, regular. No pulse deficits. Respiratory: No increased work of breathing, no retractions or nasal flaring. Abdomen/GI: Soft, non-tender Skin: Warm, dry MS/ Extremity: Pulses equal, no cyanosis. Neuro: Awake and alert, GCS 15 13:25 ECG was reviewed by the Attending Physician. rn Vital Signs: 07:49 BP 109 / 42; Pulse 105; Resp 16; Temp 99(O); Pulse Ox 96% on R/A; Weight 65.77 kg; iw Height 5 ft. 0 in. (152.40 cm); 09:21 BP 108 / 38; Pulse 84; Resp 19; Pulse Ox 99% on R/A; hb 10:30 BP 111 / 53; Pulse 81; Resp 15; Pulse Ox 96% ; hb 11:13 BP 116 / 65; Pulse 85; Resp 15; Pulse Ox 99% on R/A; hb 12:30 BP 122 / 60; Pulse 83; Resp 16; Pulse Ox 100% on R/A; Pain 3/10; mb9 14:38 BP 103 / 58; Pulse 93; Resp 18; Pulse Ox 98% on R/A; mb9 07:49 Body Mass Index 28.32 (65.77 kg, 152.40 cm) iw MDM: 07:15 Patient medically screened. rn 13:59 ED course: Lab has called with multiple recollects, reason for extended length of stay. rn 14:45 Differential Diagnosis: Bronchitis Influenza Upper Respiratory Infection Sinusitis rn Pharyngitis Viral Syndrome Pneumonia. Data reviewed: vital signs, nurses notes, lab test result(s), radiologic studies, plain films, and as a result, I will discharge patient. Counseling: I had a detailed discussion with the patient and/or guardian regarding: the historical points, exam findings, and any diagnostic results supporting the discharge/admit diagnosis, lab results, radiology results, the need for outpatient follow up, to return to the emergency department if symptoms worsen or persist or if there are any questions or concerns that arise at home. Response to treatment: the patient's symptoms have markedly improved after treatment, and as a result, I will discharge patient. Special discussion: I discussed with the patient/guardian in detail that at this point there is no indication for admission to the hospital. It is understood, however, that if the symptoms persist or worsen the patient needs to return immediately for re-evaluation. 06/11 07:58 Order name: BMP; Complete Time: 14:41 rn 06/11 07:58 Order name: Blood Culture Adult (2) rn 06/11 07:58 Order name: CBC with Diff; Complete Time: 11:33 rn 06/11 07:58 Order name: Hepatic Function; Complete Time: 14:41 06/11 07:58 Order name: Magnesium; Complete Time: 14:41 rn 06/11 07:58 Order name: NT PRO-BNP; Complete Time: 14:41 rn 06/11 07:58 Order name: PT-INR; Complete Time: 11:33 rn 06/11 07:58 Order name: Ptt, Activated; Complete Time: 11:33 rn 06/11 07:58 Order name: Troponin HS; Complete Time: 14:41 rn 06/11 07:58 Order name: XRAY CXR (1 view); Complete Time: 09:00 rn 06/11 07:58 Order name: COVID-19/FLU A+B; Complete Time: 11:33 rn 06/11 11:33 Order name: Urine Culture rn 06/11 11:33 Order name: Urine Microscopic Only; Complete Time: 12:49 rn 06/11 12:13 Order name: Urine Dipstick-Ancillary; Complete Time: 12:49 EDMS 06/11 07:58 Order name: EKG; Complete Time: 07:59 rn 06/11 07:58 Order name: Cardiac monitoring; Complete Time: 09:01 rn 06/11 07:58 Order name: EKG - Nurse/Tech; Complete Time: 09:21 rn 06/11 07:58 Order name: IV Saline Lock; Complete Time: 09: rn 06/11 07:58 Order name: Labs collected and sent; Complete Time: 09:01 rn 06/11 07:58 Order name: O2 Per Protocol; Complete Time: 09: rn 06/11 07:58 Order name: O2 Sat Monitoring; Complete Time: 09: rn 06/11 09:29 Order name: Labs - recollect needed: recollect all the things hemolyzed per Norma; eb Complete Time: 10:30 06/11 11:01 Order name: Labs - recollect needed: recollect chemistries/ paging inside lab; Complete eb Time: 11:06/11 11:33 Order name: Urine Dipstick-Ancillary (obtain specimen); Complete Time: 11:57 rn EC:25 Rate is 91 beats/min. Rhythm is regular. QRS [place] is Normal. CO interval is shortened rn at 110 msec. QRS interval is normal. QT interval is normal. No Q waves. T waves are Normal. No ST changes noted. Clinical impression: Normal ECG. Interpreted by me. Reviewed by me. Administered Medications: 09:21 Drug: Zofran (Ondansetron) 4 mg Route: IVP; Site: right forearm; hb 09:21 Drug: NS 0.9% 500 ml Route: IV; Rate: bolus; Site: right forearm; hb 09:21 Drug: Tylenol 325 mg Route: PO; hb 14:54 Drug: Zithromax (azithromycin) 500 mg Route: PO; mb9 14:55 Drug: Ondansetron 4 mg Route: PO; mb9 Disposition Summary: 06/11/22 14:46 Discharge Ordered Location: Home rn Problem: new rn Symptoms: have improved rn Condition: Stable rn Diagnosis - Cough rn - Dehydration rn - UTI/ Urinary tract infection, site not specified rn Followup: rn - With: Private Physician - When: As needed - Reason: Recheck today's complaints, Re-evaluation by your physician Discharge Instructions: - Discharge Summary Sheet rn - Dehydration, Adult rn - Urinary Tract Infection, Adult rn - Cough, Adult rn Forms: - Medication Reconciliation Form rn - Thank You Letter rn - Antibiotic rn chemical dependency - Prescription Opioid Use rn Prescriptions: - Cephalexin 500 mg Oral Capsule - take 1 capsule by ORAL route every 12 hours for 10 days; 20 capsule; Refills: rn 0, Product Selection Permitted - Zithromax Z-Alex 250 mg Oral Tablet - take 1 tablet by ORAL route as directed for 5 days Day 1 - take two (2) tablets rn one time. Day 2, 3, 4 , 5 take one (1) tablet once daily.; 6 tablet; Refills: 0, Product Selection Permitted - ondansetron 4 mg Oral - take 4 milligrams by SUBLINGUAL route every 8 hours; 15 tablet; Refills: 0, rn Product Selection Permitted Signatures: Dispatcher [employer] Yessy Bailey, RN Bryon Castillo MD MD rn Baxter, Heather RN Cherie Forde Mary Beth, RN RN mb9
[2022-06-11] MEDS ORDERED: ONDANSETRON 4 MG (ODT) TAB ONE (14:51)
[2022-06-11] MEDS ORDERED: AZITHROMYCIN 250 MG TAB ONE (14:51)
[2022-06-11 15:15] VITALS: TEMP 99
[2022-06-11 15:21] VITALS: BP 103/58; O2SAT 98
--- NOTE | 2022-06-15 14:36 | EKG ---
Test Date: 2022-06-11 Test Time: 09:13:37 [employer] Supervisor: HB MEASUREMENT RESULTS: Intervals: Rate: 91 AR: 110 QRSD: 74 QT: 364 QTc: 447 [place]: P: 21 AR: 110 QRS: 52 T: 24 INTERPRETIVE STATEMENTS: Sinus rhythm with short AR Otherwise normal ECG Compared to ECG 03/13/2022 13:58:00 Short AR interval now present T-wave abnormality no longer present Prolonged QT interval no longer present Electronically Signed On 06-15-22 14:32:52 MAINT MECHANIC by Eddie Teran
== END 2022-06-11 14:59 | disposition home or self-care (01) ==
LOC: ER 07:13
DX: R05.9 Cough, unspecified (principal); E86.0 Dehydration; N39.0 Urinary tract infection, site not specified; Z20.822 Contact with and (suspected) exposure to COVID-19
CPT/HCPCS: 87040 ×2; 87088; 85025; 87086; 80048; 36415; 83735; 85610; 80076; 85730; 84484; 83880; 0240U; 71045; 96374; 99284; Q0144; Q0162; J7040; J2405; 81003; 81015; 93005

== ENCOUNTER 2022-06-13 16:50 | Emergency (ER) | payer OTHER ==
--- OUTSIDE RECORDS SUMMARY | 2022-06-13 16:59 | XMS REPORT | Continuity of Care Document ---
:1960 Author Organization [facility] t Address [address] [place] [address] Care Team Providers Name Role Phone MCNEILSOHAN Primary Care Physician Unavailable Nirmal Hancock Attending Clinician Unavailable NIVIA BESS Attending Clinician Unavailable MARIXA LEE Attending Clinician Unavailable Nivia Bess MD Attending Clinician Doctor Unassigned, [place] Attending Clinician Unavailable Only, Adc Test Attending Clinician Unavailable JOE MORALES Attending Clinician Unavailable ROGELIO Attending Clinician Unavailable SHERWIN NASH Attending Clinician Unavailable SHERWIN NASH Attending Clinician Unavailable NIVIA BESS Admitting Clinician Unavailable Nivia Bess MD Admitting Clinician ROGELIO Admitting Clinician Unavailable Payers Payer Name Policy Type Policy Number Effective Date Expiration Date S shawn [facility] [id number] 2012 2022 PLAN STAR 00:00:00 00:00:00 [facility] DUAL [id number] 2020 COMP HMO D SNP 00:00:00 [place]ID OF [place] [id number] 2020 00:00:00 [facility] STAR [id number] 2013 PLUS 00:00:00 [facility] WELLMED [id number] 2020 2024 00:00:00 00:00:00 [place] [address] [id number] 2019 Common DUAL MCR WELLMED 00:00:00 [facility] [id number] 2012 Common 00:00:00 [facility] [id number] 2012 Common 00:00:00 [facility] [id number] 2012 Common 00:00:00 [facility] [place]ICARE B[place]: [id number] 2006 [place] D&R 00:00:00 [facility] [id number] PLAN - DUAL COMPLETE - SNP PLAN (MEDICARE REPLACEMENT HMO) [facility] [id number] 2018 COMMUNITY PLAN - 00:00:00 [facility] PLUS (MEDICAID HMO) Problems Condition Condition Condition Status Onset Resolution Last Treating Co mments Source Name Details Category Date Date Treatment Clinician Date Peptic Peptic Disease Active Overview: Univer s ulcer ulcer 6-15 Formattin ity of disease disease 00:00: g of this [place] note Medical might be Branch different from the original. Added automatic ally from request for surgery [id number] Multiple Multiple Disease Active Overview: Un raffi gastric gastric 2-02 Formattin ity o f ulcers ulcers 00:00: g of this [place] note Medical might be Branch different from the original. Added automatic ally from request for surgery [id number] Hiatal Hiatal Disease Active 2019-06 Univers hernia hernia 2-03 ity of 00:00: Medical Branch Post-op Post-op Disease Active 2015-06 Univers pain pain 0-31 ity of 00:00: Medical Branch Chronic Chronic Disease Active Univers neck pain neck pain 1-11 ity of 00:00: [place] [facility] Anxiety Anxiety Disease Active Univers disorder disorder 1-11 ity of 00:00: [place] [facility] [id number] DDD Problem Common (degenerat Spirit ceferino disc - CHI disease), [facility] [id number] Attention Problem Comm on deficit Spirit hyperactiv - CHI ity St disorder [facility] (ADHD), Medical combined Center type [id number] Panic Problem Common disorder Spirit [episodic - CHI paroxysmal St anxiety] [facility] [id number] GERD Problem Common without Spirit esophagiti - CHI s [facility] [id number] 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 [facility] [id number] +5th digit Problem Co mmon eff Spirit 03/13/20*CK - CHI D (chronic [facility] kidney [facility] disease) Medical stage 3, Center GFR 30-59 ml/min [id number] Generalize Problem Com mon d anxiety Spirit disorder - CHI [facility] [id number] PTSD Problem Common (post-trau Spirit matic - CHI stress St disorder) [facility] [id number] Bilateral Problem Co mmon 102 tinnitus Spirit - CHI [facility] [id number] Current Problem Common moderate Spirit episode of - CHI major St depressive [facility] disorder Medical without Center prior episode [id number] Osteoporos Problem Com mon is, Spirit unspecifie - CHI d St osteoporos [facility] is type, Medical unspecifie Center d pathologic al fracture presence [id number] 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 - CHI with both St constipati [facility] on and Medical diarrhea Center [id number] 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 - CHI [facility] [id number] Allergic Problem Commo n rhinitis, Spirit unspecifie - CHI d St seasonalit [facility] y, Medical unspecifie Center d trigger [id number] Mixed Problem Common hyperlipid Spirit emia - CHI [facility] [id number] Stage 3a Problem Comm on chronic Spirit kidney - CHI disease [facility] Atheroscle 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 Spirit right right - CHI renal renal St artery artery [facility] [id number] 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 - CHI joints, St unspecifie [facility] d Medical osteoarthr Center itis type [id number] History of Problem Co mmon uterine Spirit cancer - CHI [facility] [id number] Chronic Problem Commo n pain Spirit syndrome - CHI [facility] 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 - CHI ncy of atheroscle St intestine [facility] [id number] Elevated Problem Comm on liver [facility] enzymes [facility] Thrombocyt Thrombocyt Problem C ommon osis osis [facility] [id number] Essential Problem Com mon thrombocyt Spirit osis [facility] Chronic Chronic Problem Common fatigue fatigue Spirit syndrome [facility] Iron Fe Problem Common deficiency deficiency Sp julio césar anemia anemia [facility] [id number] Primary Problem Comm on osteoarthr Spirit itis of - CHI left knee [facility] [id number] Primary Problem Comm on osteoarthr Spirit itis of CHI right knee [facility] Anemia in Anemia in Problem Com mon chronic chronic Spirit kidney kidney [facility] disease disease [facility] Hypercalce Hypercalce Problem C ommon shahnaz shahnaz Spirit [facility] [id number] Shoulder Problem Comm on arthritis Spirit [facility] Anemia due Anemia due Problem C ommon to blood to blood [facility] loss loss [facility] [id number] SVT Problem Common (supravent Spirit ricular - [facility] tachycardi [facility] Supraventr Supraventr Disease Active U nivers icular icular ity of dysrhythmi dysrhythmi [place] [facility] Chronic Chronic Disease Active Univers low back low back ity of pain pain [facility] Allergies, Adverse Reactions, Alerts Allergy Allergy Status Severity Reaction(s) Onset Inactive Treating Comm ents Source Name Type Date Date Clinician Haloperi Propensi Active Anaphylaxis 0 U nivers dol ty to 2-04 ity of Lactate adverse 00:00: [place] reaction Medical Branch Etodolac Propensi Active Anaphylaxis 2020-0 U nivers ty to 2-04 ity of adverse 00:00: [place] reaction [facility] HALOPERI DRUG Active Anaphylaxis Uni vers DOL INGREDI 2-04 ity of LACTATE 00:00: [facility] Branch ETODOLAC DRUG Active Anaphylaxis Uni vers INGREDI 2-04 ity of 00:00: [facility] Branch Pregabal Propensi Active Hallucinatio 2014-06 Univers in ty to ns 2- ity of adverse 00:00: [place] reaction [facility] Branch PREGABAL DRUG Active Hallucinates 2014-06 Un [...] of SALT) 00:00: [place] 00 Medical Branch [id number] Drug Active throat Common allergy closes [facility] hydroxyz hydroxyz Active seizure Commo n ine ine [facility] 79817 Drug Active throat Common allergy closes [facility] pregabal pregabal Active throat Common in in closes [facility] etodolac etodolac Active throat Common closes [facility] ibuprofe ibuprofe Active throat [facility] mel[facility] meloxica Active seizure Commo n m m [facility] Social History Social Habit Start Date Stop Date Quantity Comments Source Sex Assigned At Common Sp julio césar - [facility] History of Common Spirit - Tobacco Use [facility] Alcohol intake 2020-11-26 2020-11-26 0 /d University of 00:00:00 00:00:00 [facility] Tobacco Comment 2020-11-21 2020-11-21 stopped Universit y of 00:00:00 00:00:00 02/22/2013 [facility] Tobacco use and 2015-06-09 2015-06-09 Never used Universit y of exposure 00:00:00 00:00:00 [facility] Smoking Status Start Date Stop Date Source Never Smoker Common Spirit [facility] Former Smoker 2021-09-07 00:00:00 2021-09-07 00:00:00 Common S pirit - [facility] Medications Ordered Filled Start Stop Current Ordering Indication Dosage Frequency Signature Comments Components Source Medication Medication Date Date Medication? Clinician (SIG) Name Name Lidocaine Lidocaine 2021-06 No 10mg Com 08-01 Spirit 00:00: - CHI [facility] Eugenia Delgadilloalog 2021-06 No 40mg Common (Triamcinol (Triamcinol 2-19 S pirit one) one) 00:00: - CHI [facility] Lidocaine Lidocaine 2021-06 No 10mg Com 08-01 Spirit 00:00: - CHI [facility] Kenalog Kenalog 2021-06 No 40mg Common (Triamcinol (Triamcinol 2-19 S pirit one) one) 00:00: - CHI [facility] Lidocaine Lidocaine 2021-06 No 10mg Com 08-01 Spirit 00:00: - CHI [facility] Kenalog Kenalog 2021-06 No 40mg Common (Triamcinol (Triamcinol 2-19 S pirit one) one) 00:00: - CHI [facility] Kenalog Kenalog 2021-06 No 40mg Common (Triamcinol (Triamcinol 2-08 S pirit one) one) 00:00: - CHI [facility] Kenalog Kenalog 2021-06 No 40mg Common (Triamcinol (Triamcinol 2-08 S pirit one) one) 00:00: - CHI [facility] Kenalog Kenalog 2021-06 No 40mg Common (Triamcinol (Triamcinol 2-08 S pirit one) one) 00:00: - CHI [facility] Eugenia Kenlaurie 2021-06 No 40mg Common (Triamcinol (Triamcinol 2-08 S pirit one) one) 00:00: - CHI 00 [facility] 2021-06 No 40mg Common (Triamcinol (Triamcinol 2-08 S pirit one) one) 00:00: - CHI 00 [facility] 2021-06 No 40mg Common (Triamcinol (Triamcinol 1-09 S pirit one) one) 00:00: - CHI 00 [facility] 2021-06 No 40mg Common (Triamcinol (Triamcinol 1-09 S pirit one) one) 00:00: - CHI 00 [facility] 2021-06 No 40mg Common (Triamcinol (Triamcinol 1-09 S pirit one) one) 00:00: - CHI 00 [facility] 2021-06 No 40mg Common (Triamcinol (Triamcinol 1-09 S pirit one) one) 00:00: - CHI 00 [facility] 2021-06 No 40mg Common (Triamcinol (Triamcinol 1-09 S pirit one) one) 00:00: - CHI 00 [facility] Eugenia Kenlaurie 2021-06 No 40mg Common (Triamcinol (Triamcinol 1-09 S pirit one) one) 00:00: - CHI 00 [facility] 2021-06 No 40mg Common (Triamcinol (Triamcinol 1-09 S pirit one) one) 00:00: - CHI 00 [facility] 2021-06 No 40mg Common (Triamcinol (Triamcinol 0-12 S pirit one) one) 00:00: - CHI 00 [facility] Eugenia Kenalog 2021-06 No 40mg Common (Triamcinol (Triamcinol 0-12 S pirit one) one) 00:00: - CHI 00 [facility] Eugenia 2021-06 No 40mg Common (Triamcinol (Triamcinol 0-12 S pirit one) one) 00:00: - CHI 00 [facility] Eugenia Bello 2021-06 No 40mg Common (Triamcinol (Triamcinol 0-12 S pirit one) one) 00:00: - CHI 00 [facility] Eugenia Bello 2021-06 No 40mg Common (Triamcinol (Triamcinol 0-12 S pirit one) one) 00:00: - CHI 00 [facility] Eugenia Bello 2021-06 No 40mg Common (Triamcinol (Triamcinol 0-12 S pirit one) one) 00:00: - CHI 00 [facility] Eugenia Bello 2021-06 No 40mg Common (Triamcinol (Triamcinol 0-12 S pirit one) one) 00:00: - CHI 00 [facility] Eugenia Bello 2021-06 No 40mg Common (Triamcinol (Triamcinol 0-12 S pirit one) one) 00:00: - CHI 00 [facility] Eugenia Bello 2021-06 No 40mg Common (Triamcinol (Triamcinol 0-12 S pirit one) one) 00:00: - CHI 00 [facility] Bupivicaine Bupivicaine 2021-0 No 2.5mg Common Cahone Cahone 4-26 Spirit 00:00: - CHI 00 [facility] Eugenia Kenlaurie No 40mg Common (Triamcinol (Triamcinol 4-26 S pirit one) one) 00:00: - CHI 00 [facility] Bupivicaine Bupivicaine 2021-0 No 2.5mg Common [place] Cah[place] 4-26 Spirit 00:00: - CHI 00 [facility] Eugenia Kenalog 0 No 40mg Common (Triamcinol (Triamcinol 4-26 S pirit one) one) 00:00: - CHI 00 [facility] Bupivicaine Bupivicaine 2021-0 No 2.5mg Common [place] 4-26 Spirit 00:00: - CHI 00 [facility] Kenalog Kenalog 2022-0 No 40mg Common (Triamcinol (Triamcinol 4-26 S pirit one) one) 00:00: - CHI 00 [facility] Bupivicaine Bupivicaine 2021-0 No 2.5mg Common [place] 4-26 Spirit 00:00: - CHI 00 [facility] Kenalog Kenalog 2021-0 No 40mg Common (Triamcinol (Triamcinol 4-26 S pirit one) one) 00:00: - CHI 00 [facility] Bupivicaine Bupivicaine 2021-0 No 2.5mg Common [place] 4-26 Spirit 00:00: - CHI 00 [facility] Kenalog Kenalog 2021-0 No 40mg Common (Triamcinol (Triamcinol 4-26 S pirit one) one) 00:00: - CHI 00 [facility] Bupivicaine Bupivicaine 2021-0 No 2.5mg Common [place] 4-26 Spirit 00:00: - CHI 00 [facility] Kenalog Kenalog 2021-0 No 40mg Common (Triamcinol (Triamcinol 4-26 S pirit one) one) 00:00: - CHI 00 [facility] Bupivicaine Bupivicaine 2021-0 No 2.5mg Common [place] 4-26 Spirit 00:00: - CHI 00 [facility] Kenalog Kenalog 2021-0 No 40mg Common (Triamcinol (Triamcinol 4-26 S pirit one) one) 00:00: - CHI 00 [facility] Bupivicaine Bupivicaine 2021-0 No 2.5mg Common [place] 4-26 Spirit 00:00: - CHI 00 [facility] Kenalog Kenalog 2021-0 No 40mg Common (Triamcinol (Triamcinol 4-26 S pirit one) one) 00:00: - CHI 00 [facility] Bupivicaine Bupivicaine 2021-0 No 2.5mg Common [place] 4-26 Spirit 00:00: - CHI 00 [facility] Kenalog Kenalog 2021-0 No 40mg Common (Triamcinol (Triamcinol 4-26 S pirit one) one) 00:00: - CHI 00 [facility] Bupivicaine Bupivicaine 2021-0 No 2.5mg Common [place] 4-26 Spirit 00:00: - CHI 00 [facility] Kenalog Kenalog 2021-0 No 40mg Common (Triamcinol (Triamcinol 4-26 S pirit one) one) 00:00: - CHI 00 [facility] Bupivicaine Bupivicaine 2021-0 No 2.5mg Common [place] 4-26 Spirit 00:00: - CHI 00 [facility] Kenalog Kenalog 2021-0 No 40mg Common (Triamcinol (Triamcinol 4-26 S pirit one) one) 00:00: - CHI 00 [facility] Bupivicaine Bupivicaine 2021-0 No 2.5mg Common [place] 4-26 Spirit 00:00: - CHI 00 [facility] Kenalog Kenalog 2021-0 No 40mg Common (Triamcinol (Triamcinol 4-26 S pirit one) one) 00:00: - CHI 00 [facility] Bupivicaine Bupivicaine 2021-0 No 2.5mg Common [place] 4-26 Spirit 00:00: - CHI 00 [facility] Kenalog Kenalog 2021-0 No 40mg Common (Triamcinol (Triamcinol 4-26 S pirit one) one) 00:00: - CHI 00 [facility] Bupivicaine Bupivicaine 2021-0 No 2.5mg Common [place] 4-26 Spirit 00:00: - CHI 00 [facility] Kenalog Kenalog 2021-0 No 40mg Common (Triamcinol (Triamcinol 4-26 S pirit one) one) 00:00: - CHI 00 [facility] Bupivicaine Bupivicaine 2-0 No 2.5mg Common [place] 4-26 Spirit 00:00: - CHI 00 [facility] Kenalog Kenalog 2-0 No 40mg Common (Triamcinol (Triamcinol 4-26 S pirit one) one) 00:00: - CHI 00 [facility] Bupivicaine Bupivicaine 2-0 No 2.5mg Common [place] 4-26 Spirit 00:00: - CHI 00 [facility] Kenalog Kenalog 2-0 No 40mg Common (Triamcinol (Triamcinol 4-26 S pirit one) one) 00:00: - CHI 00 [facility] Bupivicaine Bupivicaine 2-0 No 2.5mg Common [place] 4-26 Spirit 00:00: - CHI 00 [facility] Kenalog Kenalog 2-0 No 40mg Common (Triamcinol (Triamcinol 4-26 S pirit one) one) 00:00: - CHI 00 [facility] Bupivicaine Bupivicaine 2-0 No 2.5mg Common [place] 4-26 Spirit 00:00: - CHI 00 [facility] Kenalog Kenalog 2-0 No 40mg Common (Triamcinol (Triamcinol 4-26 S pirit one) one) 00:00: - CHI 00 [facility] Bupivicaine Bupivicaine 2-0 No 2.5mg Common [place] 4-26 Spirit 00:00: - CHI 00 [facility] Kenalog Kenalog 2-0 No 40mg Common (Triamcinol (Triamcinol 4-26 S pirit one) one) 00:00: - CHI 00 [facility] Bupivicaine Bupivicaine 2-0 No 2.5mg Common [place] 4-26 Spirit 00:00: - CHI 00 [facility] Kenalog Kenalog 2-0 No 40mg Common (Triamcinol (Triamcinol 4-26 S pirit one) one) 00:00: - CHI 00 [facility] methylPREDN methylPREDN 2021-0 No methylPRED ISolone [...] Common 2-16 Spirit 00:00: - CHI 00 [facility] Synvisc Synvisc 2020-1 No 16mg Common 2-16 Spirit 00:00: - CHI 00 [facility] Synvisc Synvisc 2020- No 16mg Common 2-16 Spirit 00:00: - CHI 00 [facility] Synvisc Synvisc 2020-1 No 16mg Common 2-16 Spirit 00:00: - CHI 00 [facility] Synvisc Synvisc 2020- No 16mg Common 2-16 Spirit 00:00: - CHI 00 [facility] Synvisc Synvisc 2020-1 No 16mg Common 2-16 Spirit 00:00: - CHI 00 [facility] Synvisc Synvisc 2020-1 No 16mg Common 2-16 Spirit 00:00: - CHI 00 [facility] Synvisc Synvisc 2020-1 No 16mg Common 2-16 Spirit 00:00: - CHI 00 [facility] Synvisc Synvisc 2020-1 No 16mg Common 2-16 Spirit 00:00: - CHI 00 [facility] Synvisc Synvisc 2020-1 No 16mg Common 2-16 Spirit 00:00: - CHI 00 [facility] Synvisc Synvisc 2020-1 No 16mg Common 2-16 Spirit 00:00: - CHI 00 [facility] Synvisc Synvisc 2020-1 No 16mg Common 2-16 Spirit 00:00: - CHI 00 [facility] Synvisc Synvisc 2020-1 No 16mg Common 2-16 Spirit 00:00: - CHI 00 [facility] Synvisc Synvisc 2020-1 No 16mg Common 2-16 Spirit 00:00: - CHI 00 [facility] Synvisc Synvisc 2020-1 No 16mg Common 2-16 Spirit 00:00: - CHI 00 [facility] Synvisc Synvisc 2020- No 16mg Common 2-16 Spirit 00:00: - CHI 00 [facility] Synvisc Synvisc 2020-06 No 16mg Common 2-16 Spirit 00:00: - CHI 00 [facility] Synvisc Synvisc 2020-06 No 16mg Common 2-16 Spirit 00:00: - CHI 00 [facility] Synvisc Synvisc 2020- No 16mg Common 2-16 Spirit 00:00: - CHI 00 [facility] Synvisc Synvisc 2020-06 No 16mg Common 2-16 Spirit 00:00: - CHI 00 [facility] Synvisc Synvisc 2020-06 No 16mg Common 2-16 Spirit 00:00: - CHI 00 [facility] Synvisc Synvisc 2020-06 No 16mg Common 2-16 Spirit 00:00: - CHI 00 [facility] Synvisc Synvisc 2020- No 16mg Common 2-16 Spirit 00:00: - CHI 00 [facility] Synvisc Synvisc 2020-06 No 16mg Common 2-16 Spirit 00:00: - CHI 00 [facility] Synvisc Synvisc 2020- No 16mg Common 2-09 Spirit 00:00: - CHI 00 [facility] Synvisc Synvisc 2020-06 No 16mg Common 2-09 Spirit 00:00: - CHI 00 [facility] Synvisc Synvisc 2020- No 16mg Common 2-09 Spirit 00:00: - CHI 00 [facility] Synvisc Synvisc 2020- No 16mg Common 2-09 Spirit 00:00: - CHI 00 [facility] Synvisc Synvisc 2020- No 16mg Common 2- Spirit 00:00: - CHI 00 [facility] Synvisc Synvisc 2020- No 16mg Common 2-09 Spirit 00:00: - CHI 00 [facility] Synvisc Synvisc 2020- No 16mg Common 2- Spirit 00:00: - CHI 00 [facility] Synvisc Synvisc 2020-1 No 16mg Common 2- Spirit 00:00: - CHI 00 [facility] Synvisc Synvisc 2020- No 16mg Common 2- Spirit 00:00: - CHI 00 [facility] Synvisc Synvisc 2020- No 16mg Common 2- Spirit 00:00: - CHI 00 [facility] Synvisc Synvisc 2020- No 16mg Common 2- Spirit 00:00: - CHI 00 [facility] Synvisc Synvisc 2020- No 16mg Common 2- Spirit 00:00: - CHI 00 [facility] Synvisc Synvisc 2020- No 16mg Common 2- Spirit 00:00: - CHI 00 [facility] Synvisc Synvisc 2020- No 16mg Common 2 Spirit 00:00: - CHI 00 [facility] Synvisc Synvisc 2020- No 16mg Common 2- Spirit 00:00: - CHI 00 [facility] Synvisc Synvisc 2020- No 16mg Common 2- Spirit 00:00: - CHI 00 [facility] Synvisc Synvisc 2020- No 16mg Common 2- Spirit 00:00: - CHI 00 [facility] Synvisc Synvisc 2020- No 16mg Common 2- Spirit 00:00: - CHI 00 [facility] Synvisc Synvisc 2020- No 16mg Common 2- Spirit 00:00: - CHI 00 [facility] Synvisc Synvisc 2020- No 16mg Common 2- Spirit 00:00: - CHI 00 [facility] Synvisc Synvisc 2020- No 16mg Common 2- Spirit 00:00: - CHI 00 [facility] Synvisc Synvisc 2020- No 16mg Common 2- Spirit 00:00: - CHI 00 [facility] Synvisc Synvisc 2020- No 16mg Common 2- Spirit 00:00: - CHI 00 [facility] Synvisc Synvisc 2020-1 No 16mg Common 2- Spirit 00:00: - CHI 00 [facility] Synvisc Synvisc 2020-06 No 16mg Common 2-02 Spirit 00:00: - CHI 00 [facility] Synvisc Synvisc 2020-06 No 16mg Common 2-02 Spirit 00:00: - CHI 00 [facility] Synvisc Synvisc 2020-06 No 16mg Common 2-02 Spirit 00:00: - CHI 00 [facility] Synvisc Synvisc 2020-06 No 16mg Common 2-02 Spirit 00:00: - CHI 00 [facility] Synvisc Synvisc 2020-06 No 16mg Common 2-02 Spirit 00:00: - CHI 00 [facility] Synvisc Synvisc 2020-06 No 16mg Common 2-02 Spirit 00:00: - CHI 00 [facility] Synvisc Synvisc 2020-06 No 16mg Common 2-02 Spirit 00:00: - CHI 00 [facility] Synvisc Synvisc 2020-06 No 16mg Common 2-02 Spirit 00:00: - CHI 00 [facility] Synvisc Synvisc 2020-06 No 16mg Common 2-02 Spirit 00:00: - CHI 00 [facility] Synvisc Synvisc 2020-06 No 16mg Common 2-02 Spirit 00:00: - CHI 00 [facility] Synvisc Synvisc 2020-06 No 16mg Common 2-02 Spirit 00:00: - CHI 00 [facility] Synvisc Synvisc 2020-06 No 16mg Common 2-02 [facility] 00:00: - [facility] 00 [facility] Synvisc Synvisc 2020-06 No 16mg Common 2-02 Spirit 00:00: - [facility] 00 [facility] Synvisc Synvisc 2020-06 No 16mg Common 2-02 Spirit 00:00: - [facility] 00 [facility] Synvisc Synvisc 2020-06 No 16mg Common 2-02 Spirit 00:00: - [facility] 00 [facility] Synvisc Synvisc 2020-06 No 16mg Common 2-02 Spirit 00:00: - [facility] 00 [facility] Synvisc Synvisc 2020- No 16mg Common 2-02 Spirit 00:00: - [facility] 00 [facility] Synvisc Synvisc 2020-06 No 16mg Common 2- Spirit 00:00: - [facility] 00 [facility] Synvisc Synvisc 2020-06 No 16mg Common 2- Spirit 00:00: - [facility] 00 [facility] Synvisc Synvisc 2020-06 No 16mg Common 2- Spirit 00:00: - [facility] 00 [facility] Synvisc Synvisc 2020-06 No 16mg Common 2- Spirit 00:00: - [facility] 00 [facility] Synvisc Synvisc 2020-06 No 16mg Common 2- Spirit 00:00: - [facility] 00 [facility] Synvisc Synvisc 2020-06 No 16mg Common 2- [facility] 00:00: - [facility] 00 [facility] Synvisc Synvisc 2020-06 No 16mg Common 2- Spirit 00:00: - [facility] 00 [facility] Xarelto 20 Xarelto 20 2020-06 No [...] f 1 mg tablet 13:28: as needed. [place] [address] [facility] metoprolol Yes 25mg Take 25 mg U nivers tartrate 6-15 by mouth ity of (LOPRESSOR) 13:28: daily. [place] 25 [place] Medical tablet Branch dicyclomine Yes 20mg Take 20 mg Univers 20 mg 6-15 by mouth ity of tablet 13:28: daily. [place] [address] Medical [place] FLUoxetine Yes 40mg Take 40 mg U nivers (PROZAC) 40 6-15 by mouth ity of mg capsule 13:28: daily. [address] OLANZapine Yes 2.5mg Take 2.5 Un raffi 2.5 mg 6-15 mg by ity of tablet 13:28: mouth 2 [place] [address] (two) Medical times Branch daily. desonide Yes APPLY TO Unive rs 0.05 % 1-18 THE ity of cream 00:00: AFFECTED [place] [address] AREA TWICE Medical DAILY Branch SPARINGLY AND [...] Tartrate Tartrate [place] with food S pirit [facility] Dicyclomine Dicyclomine Yes Nirmal TAKE 1 Common HCl HCl [place] TABLET BY Spirit MOUTH - CHI TWICE St DAILY [facility] Premarin Premarin Yes Nirmal 1 tablet C ommon [place] [facility] Hydrochloro Hydrochloro Yes Nirmal 1 tablet Common thiazide thiazide [place] in the Spir it morning [facility] Adderall Adderall Yes Nirmal 1 tablet C [facility] Lansoprazol Lansoprazol Yes Nirmal 1 capsule Common e e [facility] Clonazepam Clonazepam Yes Nirmal 1 tablet Common [place] [facility] Duloxetine Duloxetine Yes Nirmal TK ONE C Common HCl HCl [place] PO BID [facility] Adderall 30 Adderall 30 No BID Adderall [...] MG 30 MG PROzac PROzac No PROzac [facility] Breztri No Breztri Aerosphere Aerosphere Aerosphere Dexilant [...] Spirit OVER 65 OVER 65 14:18:00 - [facility] FLUZONE HIGH DOSE FLUZONE HIGH DOSE 2022-05-20 Completed Common [facility] OVER 65 OVER 65 14:18:00 - [facility] FLUZONE HIGH DOSE FLUZONE HIGH DOSE 2022-05-20 Completed Common [facility] OVER 65 OVER 65 14:18:00 - [facility] FLUZONE HIGH DOSE FLUZONE HIGH DOSE 2022-05-20 Completed Common [facility] OVER 65 OVER 65 14:18:00 - [facility] FLUZONE HIGH DOSE FLUZONE HIGH DOSE 2022-05-20 Completed Common [facility] OVER 65 OVER 65 14:18:00 - [facility] Afluria Afluria 2021-03-26 Completed Common [facility] 09:44:00 - [facility] Afluria Afluria 2021-03-26 Completed Common [facility] 09:44:00 - [facility] Afluria Afluria 2021-03-26 Completed Common [facility] 09:44:00 - [facility] Afluria Afluria 2021-03-26 Completed Common [facility] 09:44:00 - [facility] Afluria Afluria 2021-03-26 Completed Common [facility] 09:44:00 - [facility] Afluria Afluria 2021-03-26 Completed Common [facility] 09:44:00 - [facility] Afluria Afluria 2021-03-26 Completed Common [facility] 09:44:00 - [facility] Afluria Afluria 2021-03-26 Completed Common [facility] 09:44:00 - [facility] Afluria Afluria 2021-03-26 Completed Common [facility] 09:44:00 - [facility] Afluria Afluria 2021-03-26 Completed Common [facility] 09:44:00 - [facility] Afluria Afluria 2021-03-26 Completed Common [facility] 09:44:00 - [facility] Afluria Afluria 2021-03-26 Completed Common [facility] 09:44:00 - [facility] Afluria Afluria 2021-03-26 Completed Common [facility] 09:44:00 - [facility] Afluria Afluria 2021-03-26 Completed Common [facility] 09:44:00 - [facility] Afluria Afluria 2021-03-26 Completed Common [facility] 09:44:00 - [facility] Afluria Afluria 2021-03-26 Completed Common [facility] 09:44:00 - [facility] Afluria Afluria 2021-03-26 Completed Common [facility] 09:44:00 - [facility] Afluria Afluria 2021-03-26 Completed Common [facility] 09:44:00 - [facility] Afluria Afluria 2021-03-26 Completed Common [facility] 09:44:00 [facility] Afluria Afluria 2021-03-26 Completed Common [facility] 09:44:00 [facility] Afluria Afluria 2021-03-26 Completed Common [facility] 09:44:00 - [facility] Afluria Afluria 2021-03-26 Completed Common [facility] 09:44:00 - [facility] Afluria Afluria 2021-03-26 Completed Common [facility] 09:44:00 [facility] Afluria Afluria 2021-03-26 Completed Common [facility] 09:44:00 [facility] Afluria Afluria 2021-03-26 Completed Common [facility] 09:44:00 [facility] Afluria Afluria 2021-03-26 Completed Common [facility] 09:44:00 [facility] Afluria Afluria 2021-03-26 Completed Common [facility] 09:44:00 - [facility] Afluria Afluria 2021-03-26 Completed Common [facility] 09:44:00 - [facility] Afluria Afluria 2021-03-26 Completed Common [facility] 09:44:00 [facility] Afluria Afluria 2021-03-26 Completed Common [facility] 09:44:00 [facility] Afluria Afluria 2021-03-26 Completed Common [facility] 09:44:00 [facility] Afluria Afluria 2021-03-26 Completed Common [facility] 09:44:00 - [facility] Afluria Afluria 2021-03-26 Completed Common [facility] 09:44:00 - [facility] Afluria Afluria 2021-03-26 Completed Common [facility] 09:44:00 [facility] Afluria Afluria 2021-03-26 Completed Common [facility] 09:44:00 - [facility] Afluria Afluria 2021-03-26 Completed [facility] 09:44:00 - [facility] Afluria Afluria 2021-03-26 Completed Common [facility] 09:44:00 - [facility] Pneumovax (PPSV23) Pneumovax (PPSV23) 2020-03-20 Completed Common [facility] 11:22:00 [facility] Pneumovax (PPSV23) Pneumovax (PPSV23) 2020-03-20 Completed Common [facility] 11:22:00 [facility] Pneumovax (PPSV23) Pneumovax (PPSV23) 2020-03-20 Completed [facility] 11:22:00 [facility] Pneumovax (PPSV23) Pneumovax (PPSV23) 2020-03-20 Completed [facility] 11:22:00 [facility] Pneumovax (PPSV23) Pneumovax (PPSV23) 2020-03-20 Completed [facility] 11:22:00 [facility] Pneumovax (PPSV23) Pneumovax (PPSV23) 2020-03-20 Completed [facility] 11:22:00 [facility] Pneumovax (PPSV23) Pneumovax (PPSV23) 2020-03-20 Completed [facility] 11:22:00 [facility] Pneumovax (PPSV23) Pneumovax (PPSV23) 2020-03-20 Completed [facility] 11:22:00 [facility] Pneumovax (PPSV23) Pneumovax (PPSV23) 2020-03-20 Completed [facility] 11:22:00 [facility] Pneumovax (PPSV23) Pneumovax (PPSV23) 2020-03-20 Completed [facility] 11:22: [facility] Pneumovax (PPSV23) Pneumovax (PPSV23) 2020-03-20 Completed [facility] 11:22: [facility] Pneumovax (PPSV23) Pneumovax (PPSV23) 2020-03-20 Completed [facility] 11:: [facility] Pneumovax (PPSV23) Pneumovax (PPSV23) 2020-03-20 Completed [facility] 11:: [facility] Pneumovax (PPSV23) Pneumovax (PPSV23) 2020-03-20 Completed [facility] 11:: [facility] Pneumovax (PPSV23) Pneumovax (PPSV23) 2020-03-20 Completed [facility] 11:: [facility] Pneumovax (PPSV23) Pneumovax (PPSV23) 2020-03-20 Completed [facility] 11:: [facility] Pneumovax (PPSV23) Pneumovax (PPSV23) 2020-03-20 Completed [facility] 11:22: [facility] Pneumovax (PPSV23) Pneumovax (PPSV23) 2020-03-20 Completed [facility] 11:22: [facility] Pneumovax (PPSV23) Pneumovax (PPSV23) 2020-03-20 Completed [facility] 11:: [facility] Pneumovax (PPSV23) Pneumovax (PPSV23) 2020-03-20 Completed [facility] 11:22: [facility] Pneumovax (PPSV23) Pneumovax (PPSV23) 2020-03-20 Completed [facility] 11:22:00 [facility] Pneumovax (PPSV23) Pneumovax (PPSV23) 2020-03-20 Completed [facility] 11:22:00 [facility] Pneumovax (PPSV23) Pneumovax (PPSV23) 2020-03-20 Completed [facility] 11:22:00 [facility] Pneumovax (PPSV23) Pneumovax (PPSV23) 2020-03-20 Completed [facility] 11:22: [facility] Pneumovax (PPSV23) Pneumovax (PPSV23) 2020-03-20 Completed [facility] 11:22: [facility] Pneumovax (PPSV23) Pneumovax (PPSV23) 2020-03-20 Completed [facility] 11:: [facility] Pneumovax (PPSV23) Pneumovax (PPSV23) 2020-03-20 Completed [facility] 11:: [facility] Pneumovax (PPSV23) Pneumovax (PPSV23) 2020-03-20 Completed [facility] 11:: [facility] Pneumovax (PPSV23) Pneumovax (PPSV23) 2020-03-20 Completed [facility] 11:: [facility] Pneumovax (PPSV23) Pneumovax (PPSV23) 2020-03-20 Completed [facility] 11:: [facility] Pneumovax (PPSV23) Pneumovax (PPSV23) 2020-03-20 Completed [facility] 11:: [facility] Pneumovax (PPSV23) Pneumovax (PPSV23) 2020-03-20 Completed [facility] 11:22: [facility] Pneumovax (PPSV23) Pneumovax (PPSV23) 2020-03-20 Completed [facility] 11:: [facility] Pneumovax (PPSV23) Pneumovax (PPSV23) 2020-03-20 Completed [facility] 11:22: [facility] Pneumovax (PPSV23) Pneumovax (PPSV23) 2020-03-20 Completed [facility] 11:: [facility] Pneumovax (PPSV23) Pneumovax (PPSV23) 2020-03-20 Completed [facility] 11::00 [facility] Pneumovax (PPSV23) Pneumovax (PPSV23) 2020-03-20 Completed [facility] 11::00 [facility] Afluria single dose Afluria single dose 2020-03-20 Completed [facility] 11:: [facility] Afluria single dose Afluria single dose 2020-03-20 Completed [facility] 11:: [facility] Afluria single dose Afluria single dose 2020-03-20 Completed [facility] 11:: [facility] Afluria single dose Afluria single dose 2020-03-20 Completed [facility] 11:: [facility] Afluria single dose Afluria single dose 2020-03-20 Completed [facility] 11:: [facility] Afluria single dose Afluria single dose 2020-03-20 Completed [facility] 11:: [facility] Afluria single dose Afluria single dose 2020-03-20 Completed [facility] 11:: [facility] Afluria single dose Afluria single dose 2020-03-20 Completed [facility] 11:: [facility] Afluria single dose Afluria single dose 2020-03-20 Completed [facility] 11:: [facility] Afluria single dose Afluria single dose 2020-03-20 Completed [facility] 11:: [facility] Afluria single dose Afluria single dose 2020-03-20 Completed [facility] 11:: [facility] Afluria single dose Afluria single dose 2020-03-20 Completed [facility] 11:: [facility] Afluria single dose Afluria single dose 2020-03-20 Completed [facility] 11:: [facility] Afluria single dose Afluria single dose 2020-03-20 Completed [facility] 11::00 [facility] Afluria single dose Afluria single dose 2020-03-20 Completed [facility] 11:: [facility] Afluria single dose Afluria single dose 2020-03-20 Completed [facility] 11:: [facility] Afluria single dose Afluria single dose 2020-03-20 Completed [facility] 11:: [facility] Afluria single dose Afluria single dose 2020-03-20 Completed [facility] 11:: [facility] Afluria single dose Afluria single dose 2020-03-20 Completed [facility] 11:: [facility] Afluria single dose Afluria single dose 2020-03-20 Completed [facility] 11:: [facility] Afluria single dose Afluria single dose 2020-03-20 Completed [facility] 11:: [facility] Afluria single dose Afluria single dose 2020-03-20 Completed [facility] 11:: [facility] Afluria single dose Afluria single dose 2020-03-20 Completed [facility] 11:: [facility] Afluria single dose Afluria single dose 2020-03-20 Completed [facility] 11:: [facility] Afluria single dose Afluria single dose 2020-03-20 Completed [facility] 11:: [facility] Afluria single dose Afluria single dose 2020-03-20 Completed [facility] 11:: [facility] Afluria single dose Afluria single dose 2020-03-20 Completed [facility] 11:: [facility] Afluria single dose Afluria single dose 2020-03-20 Completed [facility] 11:: [facility] Afluria single dose Afluria single dose 2020-03-20 Completed [facility] 11:: [facility] Afluria single dose Afluria single dose 2020-03-20 Completed [facility] 11:: [facility] Afluria single dose Afluria single dose 2020-03-20 Completed [facility] 11:: [facility] Afluria single dose Afluria single dose 2020-03-20 Completed [facility] 11:: [facility] Afluria single dose Afluria single dose 2020-03-20 Completed [facility] 11:: [facility] Afluria single dose Afluria single dose 2020-03-20 Completed [facility] 11:21:00 - [facility] Afluria single dose Afluria single dose 2020-03-20 Completed [facility] 11:21:00 - [facility] Afluria single dose Afluria single dose 2020-03-20 Completed [facility] 11:21:00 - [facility] Afluria single dose Afluria single dose 2020-03-20 Completed [facility] 11:21:00 - [facility] Vital Signs Vital Name Observation Time Observation Value Comments Source height 2022-05-31 10:30:00 60 [in_i] [facility] weight 2022-05-31 10:30:00 143 [lb_av] [facility] temperature 2022-05-31 10:30:00 97.2 [degF] [facility] bmi 2022-05-31 10:30:00 27.92 kg/m2 [facility] blood pressure 2022-05-31 10:30:00 134 mm[Hg] Common [facility] - systolic [facility] blood pressure 2022-05-31 10:30:00 62 mm[Hg] Common [facility] - diastolic [facility] height 2022-05-20 13:50:00 60 [in_i] [facility] weight 2022-05-20 13:50:00 144.2 [lb_av] [facility] temperature 2022-05-20 13:50:00 97.6 [degF] [facility] bmi 2022-05-20 13:50:00 28.16 kg/m2 [facility] oximetry 2022-05-20 13:50:00 97 % [facility] respiratory rate 2022-05-20 13:50:00 17 /min Comm on [facility] blood pressure 2022-05-20 13:50:00 131 mm[Hg] Common [facility] - systolic [facility] blood pressure 2022-05-20 13:50:00 60 mm[Hg] Common [facility] - diastolic [facility] height 2022-03-24 10:10:00 60 [in_i] [facility] weight 2022-03-24 10:10:00 141.8 [lb_av] [facility] temperature 2022-03-24 10:10:00 97.3 [degF] Common S pirit - [facility] bmi 2022-03-24 10:10:00 27.69 kg/m2 [facility] oximetry 2022-03-24 10:10:00 98 % [facility] respiratory rate 2022-03-24 10:10:00 18 /min Comm on [facility] blood pressure 2022-03-24 10:10:00 132 mm[Hg] Common [facility] - systolic [facility] blood pressure 2022-03-24 10:10:00 72 mm[Hg] Common [facility] - diastolic [facility] height 2022-01-05 13:30:00 60 [in_i] Common [facility] weight 2022-01-05 13:30:00 139 [lb_av] [facility] bmi 2022-01-05 13:30:00 27.14 kg/m2 [facility] blood pressure 2022-01-05 13:30:00 112 mm[Hg] Common [facility] - systolic [facility] blood pressure 2022-01-05 13:30:00 78 mm[Hg] Common [facility] - diastolic [facility] height 2021-12-02 09:50:00 60 [in_i] Common [facility] weight 2021-12-02 09:50:00 131.6 [lb_av] [facility] temperature 2021-12-02 09:50:00 97.3 [degF] [facility] bmi 2021-12-02 09:50:00 25.7 kg/m2 [facility] oximetry 2021-12-02 09:50:00 99 % Common S pirit - [facility] respiratory rate 2021-12-02 09:50:00 17 /min Comm on Spirit - [facility] blood pressure 2021-12-02 09:50:00 119 mm[Hg] [facility] - systolic [facility] blood pressure 2021-12-02 09:50:00 58 mm[Hg] [facility] - diastolic [facility] height 2021-10-06 15:00:00 60 [in_i] Common S pirit - [facility] weight 2021-10-06 15:00:00 132.4 [lb_av] [facility] - [facility] bmi 2021-10-06 15:00:00 25.85 kg/m2 Common S pirit - [facility] blood pressure 2021-10-06 15:00:00 104 mm[Hg] [facility] - systolic [facility] blood pressure 2021-10-06 15:00:00 58 mm[Hg] [facility] - diastolic [facility] height 2021-09-07 14:30:00 60 [in_i] Common S pirit - [facility] weight 2021-09-07 14:30:00 132 [lb_av] Common S pirit [facility] bmi 2021-09-07 14:30:00 25.78 kg/m2 Common S pirit - [facility] blood pressure 2021-09-07 14:30:00 134 mm[Hg] [facility] - systolic [facility] blood pressure 2021-09-07 14:30:00 84 mm[Hg] [facility] - diastolic [facility] height 2021-07-30 14:30:00 60 [in_i] Common S pirit - [facility] weight 2021-07-30 14:30:00 132 [lb_av] Common S pirit - [facility] temperature 2021-07-30 14:30:00 98.0 [degF] Common S pirit - [facility] bmi 2021-07-30 14:30:00 25.78 kg/m2 Common S pirit - [facility] blood pressure 2021-07-30 14:30:00 112 mm[Hg] [facility] - systolic [facility] blood pressure 2021-07-30 14:30:00 72 mm[Hg] [facility] - diastolic [facility] height 2021-07-06 09:20:00 60 [in_i] Common [facility] weight 2021-07-06 09:20:00 131.4 [lb_av] Common [facility] temperature 2021-07-06 09:20:00 97.9 [degF] Common S pirit [facility] bmi 2021-07-06 09:20:00 25.66 kg/m2 Common [facility] oximetry 2021-07-06 09:20:00 99 % [facility] respiratory rate 2021-07-06 09:20:00 18 /min Comm on Spirit - [facility] blood pressure 2021-07-06 09:20:00 121 mm[Hg] [facility] - systolic [facility] blood pressure 2021-07-06 09:20:00 57 mm[Hg] Common [facility] - diastolic [facility] height 2021-07-06 08:30:00 60 [in_i] Common [facility] weight 2021-07-06 08:30:00 131.4 [lb_av] [facility] temperature 2021-07-06 08:30:00 97.9 [degF] Common S pirit [facility] bmi 2021-07-06 08:30:00 25.66 kg/m2 [facility] 2021-07-06 08:30:00 99 % Common S pirit [facility] blood pressure 2021-07-06 08:30:00 121 mm[Hg] [facility] - systolic [facility] blood pressure 2021-07-06 08:30:00 57 mm[Hg] [facility] - diastolic [facility] height 2021-05-28 14:45:00 60 [in_i] Common S pirit [facility] weight 2021-05-28 14:45:00 132 [lb_av] Common [facility] temperature 2021-05-28 14:45:00 97.8 [degF] Common S pirit [facility] bmi 2021-05-28 14:45:00 25.78 kg/m2 Common S pirit [facility] blood pressure 2021-05-28 14:45:00 124 mm[Hg] [facility] - systolic [facility] blood pressure 2021-05-28 14:45:00 80 mm[Hg] [facility] - diastolic [facility] height 2021-05-21 14:30:00 60 [in_i] Common [facility] weight 2021-05-21 14:30:00 132 [lb_av] Common [facility] temperature 2021-05-21 14:30:00 97.6 [degF] [facility] bmi 2021-05-21 14:30:00 25.78 kg/m2 Common [facility] blood pressure 2021-05-21 14:30:00 112 mm[Hg] [facility] - systolic [facility] blood pressure 2021-05-21 14:30:00 74 mm[Hg] [facility] - diastolic [facility] height 2021-04-07 09:30:00 60 [in_i] [facility] weight 2021-04-07 09:30:00 132.6 [lb_av] Common [facility] temperature 2021-04-07 09:30:00 97.7 [degF] Common [facility] bmi 2021-04-07 09:30:00 25.89 kg/m2 [facility] oximetry 2021-04-07 09:30:00 97 % [facility] respiratory rate 2021-04-07 09:30:00 16 /min Comm on [facility] blood pressure 2021-04-07 09:30:00 121 mm[Hg] [facility] - systolic [facility] blood pressure 2021-04-07 09:30:00 56 mm[Hg] Common [facility] - diastolic [facility] height 2021-03-26 09:50:00 60 [in_i] Common [facility] weight 2021-03-26 09:50:00 131.4 [lb_av] Common [facility] temperature 2021-03-26 09:50:00 97.5 [degF] Common [facility] bmi 2021-03-26 09:50:00 25.66 kg/m2 [facility] oximetry 2021-03-26 09:50:00 98 % [facility] respiratory rate 2021-03-26 09:50:00 17 /min Comm on [facility] blood pressure 2021-03-26 09:50:00 113 mm[Hg] Common [facility] - systolic [facility] blood pressure 2021-03-26 09:50:00 56 mm[Hg] Common [facility] [facility] Procedures This patient has no known procedures. Encounters Start End Encounter Admission Attending Care Care Encounter Source Date/Time Date/Time Type Type Clinicians Facility Department ID 2022-06-03 Outpatient [facility] [id number] [place] 16:40:39 [id number] Health 2022-05-31 Outpatient [place], STLMLC STLMLC [id number] Common 11:39:01 [facility]ly [facility] 2022-05-19 Outpatient [place], STLMLC STLMLC [id number] Common 14:43:00 [facility]ly [facility] 2022-04-23 Outpatient [place], STLMLC STLMLC [id number] Common 11:17:01 [facility] 2022-04-17 Outpatient [place], STLMLC STLMLC [id number] Common 11:08:00 [facility] 2022-01-06 Outpatient [place], STLMLC STLC [id number] Common 13:28:00 Nirmal [facility] 2021-11-02 Outpatient [place], STLMLC STLMLC [id number] Common 09:01:18 Nirmal [facility] 2021-09-21 Outpatient [place], STLMLC STLMLC [id number] Common 13:05:01 Nirmal [facility] 2021-07-29 Outpatient [place], STLMLC STLMLC [id number] Common 10:19:01 Nirmal [facility] 2021-07-08 Outpatient [place], STLMLC STLC [id number] Common 14:39:04 Nirmal [facility] 2021-07-08 Outpatient [place], STLMLC STLC [id number] Common 14:11:57 Nirmal 66878 [facility] 2021-07-08 Outpatient [place], STLMLC STLC [id number] Common 14:09:54 Nirmal 61464 [facility] 2021-07-08 Outpatient [place], STLMLC STLC [id number] Common 12:46:03 Nirmal 31475 [facility] 2021-07-08 Outpatient [place], STLMLC STLC [id number] Common 12:36:17 Nirmal 34079 [facility] 2021-07-08 Outpatient [place], STLMLC STLC [id number] Common 12:17:58 Nirmal 69424 [facility] 2021-07-08 Outpatient [place], STLMLC STLMLC [id number] Common 11:28:21 Nirmal 36930 [facility] 2021-07-08 Outpatient [place], STLMLC STLC [id number] Common 11:18:20 Nirmal 25493 [facility] 2021-07-08 Outpatient [place], STLMLC STLMLC [id number] Common 11:13:47 Nirmal 38524 [facility] 2021-07-08 Outpatient [place], STLMLC STLMLC [id number] Common 11:09:58 [facility] 65308 [facility] 2021-07-08 Outpatient [place], STLMLC STLMLC [id number] Common 11:08:14 [facility] 13150 [facility] 2021-04-13 Outpatient R MARIA ALEJANDRA, [facility] GIE [id number] Univers 11:39:26 [facility] 2021-04-12 Outpatient R MARIA ALEJANDRA, [facility] GIE [id number] Univers 23:35:55 [facility] 2021-04-11 Outpatient R MARIA ALEJANDRA, [facility] GIE [id number] Univers 21:31:44 [facility] 2022-06-22 2022-06-22 Outpatient ROSA, [facility] [id number] [place] 11:00:00 11:00:00 [facility] 2022-06-02 2022-06-02 (TEL) STLMLC STLMLC [id number] Co mmon 00:00:00 00:00:00 [facility] 2022-06-01 2022-06-01 (TEL) STLMLC STLMLC [id number] Co mmon 00:00:00 00:00:00 [facility] 2022-05-31 2022-05-31 OFFICE STLMLC STLMLC [id number] Co mmon 00:00:00 00:00:00 VISIT EST Spir it PT LEVEL 3 - CHI [facility] 2022-05-25 2022-05-25 (TEL) STLMLC STLMLC [id number] Co mmon 00:00:00 00:00:00 [facility] 2022-05-20 2022-05-20 OFFICE STLMLC STLMLC [id number] Co mmon 00:00:00 00:00:00 VISIT Spirit ESTAB PT - CHI LEVEL 4 [facility] 2022-04-23 2022-04-23 (TEL) STLMLC STLMLC [id number] Co mmon 00:00:00 00:00:00 [facility] 2022-04-16 2022-04-16 (TEL) STLMLC STLMLC [id number] Co mmon 00:00:00 00:00:00 [facility] 2022-03-30 2022-03-30 (TEL) STLMLC STLMLC [id number] Co mmon 00:00:00 00:00:00 [facility] 2022-03-24 2022-03-24 (HOSP F/U) STLMLC STLMLC [id number] Common 00:00:00 00:00:00 [facility] 2022-03-14 2022-03-14 (TEL) STLMLC STLMLC [id number] Co mmon 00:00:00 00:00:00 [facility] 2022-03-10 2022-03-10 (TEL) STLMLC STLMLC [id number] Co mmon 00:00:00 00:00:00 [facility] 2022-03-09 2022-03-09 (TEL) STLMLC STLMLC [id number] Co mmon 00:00:00 00:00:00 [facility] 2022-02-03 2022-02-03 (TEL) STLMLC STLMLC [id number] Co mmon 00:00:00 00:00:00 [facility] 2022-01-08 2022-01-08 (TEL) STLMLC STLMLC [id number] Co mmon 00:00:00 00:00:00 [facility] 2022-01-05 2022-01-05 OFFICE STLMLC STLMLC [id number] Co mmon 00:00:00 00:00:00 VISIT [facility] PT - CHI LEVEL 4 [facility] 2021-12-07 2021-12-07 (TEL) STLMLC STLMLC [id number] Co mmon 00:00:00 00:00:00 [facility] 2021-12-02 2021-12-02 OFFICE STLMLC STLMLC [id number] Co mmon 00:00:00 00:00:00 VISIT Spirit ESTAB PT - CHI LEVEL 4 [facility] 2021-10-06 2021-10-06 OFFICE STLMLC STLMLC [id number] Co mmon 00:00:00 00:00:00 VISIT Spirit ESTAB PT - CHI LEVEL 4 [facility] 2021-09-07 2021-09-07 OFFICE STLMLC STLMLC [id number] Co mmon 00:00:00 00:00:00 VISIT Spirit ESTAB PT - CHI LEVEL 4 [facility] 2021-08-13 2021-08-13 (TEL) STLMLC STLMLC [id number] Co mmon 00:00:00 00:00:00 Spirit - [facility]I [facility] 2021-07-31 2021-07-31 (TEL) STLMLC STLMLC [id number] Co mmon 00:00:00 00:00:00 Spirit - [facility]I [facility] 2021-07-30 2021-07-30 OFFICE STLMLC STLMLC [id number] Co mmon 00:00:00 00:00:00 VISIT Spirit ESTAB PT - CHI LEVEL 4 [facility] 2021-07-19 2021-07-19 Refill [facility], [facility] [id number] Univers 00:00:00 00:00:[address] [facility] [id number] it y of CLEAR [id number] [facility] [phone] [address] ([facility]) 2021-07-06 2021-07-06 OFFICE STLMLC STLMLC [id number] Co mmon 00:00:00 00:00:00 VISIT Spirit ESTAB PT - CHI LEVEL 4 [facility] 2021-07-06 2021-07-06 SUB ANNUAL STLMLC STLMLC [id number] Common 00:00:00 00:00:00 MCR Spirit WELLNESS - CHI VISIT [facility] 2021-07-03 2021-07-03 (TEL) STLMLC STLMLC [id number] Co mmon 00:00:00 00:00:00 Spirit - [facility]I [facility] 2021-06-23 2021-06-23 (TEL) STLMLC STLMLC [id number] Co mmon 00:00:00 00:00:00 Spirit - [facility]I [facility] 2021-06-22 2021-06-22 (TEL) STLMLC STLMLC [id number] Co mmon 00:00:00 00:00:00 [facility] 2021-05-28 2021-05-28 (IN/ASP) STLMLC STLMLC [id number] C ommon 00:00:00 00:00:00 INJ ASP [facility] 2021-05-21 2021-05-21 (IN/ASP) STLMLC STLMLC [id number] C ommon 00:00:00 00:00:00 INJ ASP [facility] 2021-04-28 2021-04-28 (TEL) STLMLC STLMLC [id number] Co mmon 00:00:00 00:00:00 [facility] 2021-04-27 2021-04-27 (TEL) STLMLC STLMLC [id number] Co mmon 00:00:00 00:00:00 [facility] 2021-04-24 2021-04-24 (TEL) STLMLC STLMLC [id number] Co mmon 00:00:00 00:00:00 [facility] 2021-04-07 2021-04-07 (HOSP F/U) STLMLC STLMLC [id number] Common 00:00:00 00:00:00 [facility] 2021-04-02 2021-04-02 (TEL) STLMLC STLMLC [id number] Co mmon 00:00:00 00:00:00 [facility] 2021-03-26 2021-03-26 OFFICE STLMLC STLMLC [id number] Co mmon 00:00:00 00:00:00 VISIT [facility] LEVEL 4 [facility] 2021-03-03 2021-03-03 Outpatient STLMLC STLMLC [id number] Common 00:00:00 00:00:00 [facility] 2021-02-27 2021-02-27 Outpatient STLMLC STLMLC [id number] Common 00:00:00 00:00:00 [facility] 2021-02-25 2021-02-25 Outpatient STLMLC STLMLC [id number] Common 00:00:00 00:00:00 [facility] 2021-01-21 2021-01-21 Outpatient STLMLC STLMLC [id number] Common 00:00:00 00:00:00 [facility] 2021-01-19 2021-01-19 Outpatient STLMLC STLMLC [id number] Common 00:00:00 00:00:00 [facility] 2021-01-16 2021-01-16 Outpatient R [facility] [id number] Univers 11:30:00 11:30:00 [facility] 2020-12-24 2020-12-24 Outpatient STLMLC STLMLC [id number] Common 00:00:00 00:00:00 [facility] 2020-12-24 2020-12-24 Outpatient STLMLC STLMLC [id number] Common 00:00:00 00:00:00 [facility] 2020-12-24 2020-12-24 Outpatient STLMLC STLMLC [id number] Common 00:00:00 00:00:00 [facility] 2020-12-19 2020-12-19 Outpatient STLMLC STLMLC [id number] Common 00:00:00 00:00:00 [facility] 2020-12-18 2020-12-18 Outpatient STLMLC STLMLC [id number] Common 00:00:00 00:00:00 [facility] 2020-11-25 2020-11-25 [facility] [id number] 09:18:00 13:13:00 Encounter [facility] [id number] Clear [id number] [place] [phone] [place] [id number] (CLC) 2020-11-25 2020-11-25 Surgery [facility] [id number] 11:00:00 12:14:00 Health [id number] Clear [id number] Jarvis [phone] Hospital 020 ([facility]) 2020-11-25 2020-11-25 Refill MESHA Bess [id number] 00:00:00 00:00:00 [facility] [id number] Clear [id number] Jarvis [phone] Hospital 049 ([facility]) 2020-11-25 2020-11-25 Refill MESHA Bess [id number] 00:00:00 00:00:00 [facility] [id number] Clear [id number] Jarvis [id number] Hospital 049 ([facility]) 2020-11-25 2020-11-25 Orders Doctor RAY [id number] 00:00:00 00:00:00 Only Unassigned, SUSHILA [id number] [place] [facility] [id number] [id number] 2020-11-25 2020-11-25 Prep For RAY Bess [id number] 00:00:00 00:00:00 Surgery Nivia CONTI [id number] [facility] [id number] [id number] 2020-11-14 2020-11-14 Outpatient STLC STLC [id number] Common 00:00:00 00:00:00 [facility] 2020-11-12 2020-11-[address] [facility] [id number] Common 00:00:00 00:00:00 [facility] 2020-11-03 2020-11-03 Prep For RAY Bess [id number] 00:00:00 00:00:00 Surgery Nivia CONTI [id number] [facility] [id number] [id number] 2020-10-31 2020-10-31 Telephone MESHA Bess [id number] 00:00:00 00:00:00 [facility]ivia SPECIALTY [id number] [facility] [id number] CENTER AT [phone] MARYSOL ROMAN 2020-10-24 2020-10-24 Outpatient STLMLC STLMLC [id number] Common 00:00:00 00:00:00 [facility] 2020-10-15 2020-10-15 Outpatient STLMLC STLMLC [id number] Common 00:00:00 00:00:00 [facility] 2020-07-23 2020-07-23 Laboratory Only, [facility] [id number] 11:51:15 12:06:15 Only Test [place] [id number] [place] 4.2.7.2.686 [place] [id number] 2020-07-23 2020-07-23 Outpatient R [facility] [id number] Univers 11:00:00 11:00:00 [facility] 2020-07-23 2020-07-23 Orders Doctor RAY [id number] 00:00:00 00:00:00 Only Unassigned, SUSHILA [id number] [place] [id number] 2020-07-18 2020-07-18 Outpatient STLMLC STLMLC [id number] Common 00:00:00 00:00:00 [facility] 2020-07-15 2020-07-15 Office [facility] 1.2.840.114 [id number] 13:45:51 14:15:51 Visit Nivia SPECIALTY [id number] [facility] [id number] CENTER AT [id number] MARYSOL ROMAN 2020-07-15 2020-07-15 [facility] [id number] Univers 13:45:00 13:45:00 [facility] 2020-06-18 2020-06-18 Outpatient STLMLC STLMLC [id number] Common 00:00:00 00:00:00 [facility] 2020-06-17 2020-06-17 [facility] [id number] Univers 08:30:00 08:30:00 JOE andrews [facility] 2020-06-09 2020-06-09 Outpatient R [facility] [id number] Univers 09:00:00 09:00:00 ity [facility] 2020-05-15 2020-05-15 Outpatient STLMLC STLMLC [id number] Common 00:00:00 00:00:00 [facility] 2020-05-13 2020-05-13 Outpatient R [facility] [id number] Univers 09:00:00 09:00:00 JOE andrews [facility] 2020-04-17 2020-04-17 Outpatient STLMLC STLMLC [id number] Common 00:00:00 00:00:00 [facility] 2020-04-11 2020-04-11 Outpatient STLMLC STLMLC [id number] Common 00:00:00 00:00:00 [facility] 2020-04-08 2020-04-08 Outpatient STLMLC STLMLC [id number] Common 00:00:00 00:00:00 [facility] 2020-03-20 2020-03-20 Outpatient STLMLC STLMLC [id number] Common 00:00:00 00:00:00 [facility] 2019-12-19 2019-12-19 [facility] [id number] Common 10:45:00 10:45:[address] Family [facility] 2019-12-19 2019-12-19 [facility] [id number] Common 10:00:00 10:00:[address] Family [facility] 2019-12-03 2019-12-03 [facility] [id number] Common 10:17:00 10:17:[address] Family [facility] 2019-12-03 2019-12-03 [facility] [id number] Common 09:59:00 09:59:[address] Family [facility] 2019-11-29 2019-11-29 Outpatient [facility] [id number] Common 09:45:00 09:45:[address] [facility] 2019-11-13 2019-11-13 Out[facility] [id number] Common 11:17:00 11:17:[address] [facility] 2019-11-06 2019-11-06 Out[facility] [id number] Common 15:08:00 15:08:[address] [facility] 2019-11-01 2019-11-01 Out[facility] [id number] Common 16:03:00 16:03:[address] [facility] 2019-10-31 2019-10-31 Outpatient [facility] [id number] Common 09:15:00 09:15:[address] [facility] 2019-10-01 2019-10-01 Out[facility] [id number] Common 10:00:00 10:00:[address] [facility] 2019-08-27 2019-08-27 Out[facility] [id number] Common 14:00:00 14:00:[address] [facility] 2019-07-30 2019-07-30 [facility] [id number] Common 11:00:00 11:00:[address] [facility] 2019-07-18 2019-07-18 Outpatient FERMAURICIOON_BENJIE GHOSH PRFATEMEH [id number] [place] 01:45:00 01:45:[place] [id number] [facility] Results This patient has no known results.
[2022-06-13 17:41] LABS: Absolute Lymphocytes (CBC) 0.8 K/uL (0.7-4.9); Hematocrit 30.4 % (36.0-45.0); MCV 94.2 fL (80-100); MPV 7.7 fL (7.6-11.3); RBC Red Blood Cell Count 3.22 M/uL (3.86-4.86)
--- NOTE | 2022-06-13 17:41 | RAD REPORT ---
EXAM DESCRIPTION: RAD - Chest Single View - 06/13/2022 5:34 pm CLINICAL HISTORY: Cough COMPARISON: Portable chest 06/11/2022 TECHNIQUE: AP portable chest image was obtained 06/13/2022 5:34 pm . FINDINGS: Chronic interstitial lung pattern noted with no new finding since short interval compariso n. Heart and vasculature are normal. No measurable pleural effusion and no pneumothorax. No acute bon e finding. Hardware is in place from old left clavicle fracture repair. No acute aortic findings susp ected. IMPRESSION: No acute cardiopulmonary process.
[2022-06-13 17:43] LABS: Protime INR 1.27
--- NOTE | 2022-06-13 18:01 | ER ---
Nurse's Notes [facility] Name: Martha Pradhan Age: 61 yrs Sex: Female : 1960 Arrival Date: 06/13/2022 Time: 16:51 Bed 19 Private MD: Diagnosis: Supraventricular tachycardia;GI Bleed/ Gastrointestinal hemorrhage, unspecified-Melena Presentation: 06/13 17:03 Chief complaint: EMS states: Pt found on bathroom floor by family, said she was feeling ss faint before and fell in the bathroom but denies hitting head or LOC. Coronavirus screen: Vaccine status: Patient reports receiving the 2nd dose of the covid vaccine. Ebola Screen: No symptoms or risks identified at this time. Initial Sepsis Screen: Does the patient meet any 2 criteria? HR > 90 bpm. No. Patient's initial sepsis screen is negative. Does the patient have a suspected source of infection? No. Patient's initial sepsis screen is negative. Risk Assessment: Do you want to hurt yourself or someone else? Patient reports no desire to harm self or others. Onset of symptoms was June 13, 2022. 17:03 Method Of Arrival: EMS: [facility] 17:03 Acuity: ROSALBA 2 ss 17:03 Care prior to arrival: Medication(s) given: Adenosine, 6 mg, 12 mg, x 1. ss Triage Assessment: 17:09 General: Appears in no apparent distress. comfortable, Behavior is calm, cooperative, ss appropriate for age. Pain: Denies pain. Neuro: Level of Consciousness is awake, alert, obeys commands, Oriented to person, place, time, situation. Cardiovascular: Capillary refill < 3 seconds Patient's skin is warm and dry. Respiratory: Airway is patent Respiratory effort is even, unlabored, Respiratory pattern is regular, symmetrical. GI: No signs and/or symptoms were reported involving the gastrointestinal system. Abdomen is flat, non-distended. : No signs and/or symptoms were reported regarding the genitourinary system. Derm: No signs and/or symptoms reported regarding the dermatologic system. Musculoskeletal: No signs and/or symptoms reported regarding the musculoskeletal system. Circulation, motion, and sensation intact. Range of motion: intact in all extremities. Historical: - Allergies: 17:09 haloperidol lactate; ss 17:09 hydroxyzine HCl; ss 17:09 Hydroxyzine Pamoate; ss 17:09 Ibuprofen; ss 17:09 Lyrica; ss 17:09 meloxicam; ss 17:09 nalbuphine HCl; ss 17:09 Naproxen; ss 17:09 NSAIDS (Non-Steroidal Anti-Inflammatory Drug); ss 17:09 Nubain; ss 17:09 Risperdal; ss 17:09 Vistaril; ss - Home Meds: 17:09 metoprolol tartrate 50 mg Oral tab 1 tab 2 times per day [Active]; Prozac 40 mg Oral ss cap 1 cap once daily [Active]; Xanax Oral [Active]; Doxycycline Oral [Active]; - PMHx: 17:09 ADD/ADHD; Anxiety; Arthritis; Back pain; bleeding ulcers; Chronic pain; GERD; Irritable ss bowel syndrome; Osteoporosis; PE; restless leg syndrome; Tachycardia; ULCER; - PSHx: 17:09 Appendectomy; hysterectomy; left clavicle repair; ss - Immunization history:: Adult Immunizations up to date. - Social history:: Smoking status: Patient denies any tobacco usage or history of. Patient/guardian denies using alcohol. - Family history:: not pertinent. - Hospitalizations: : No recent hospitalization is reported. Screenin:00 [facility] ED Fall Risk Assessment (Adult) History of falling in the last 3 months, ss including since admission Yes- physiologic fall (2 pts) Confusion or Disorientation No (0 pts) Intoxicated or Sedated No (0 pts) Impaired Gait No (0 pts) Mobility Assist Device Used No (0 pt) Altered Elimination No (0 pt) Score/Fall Risk Level 0 - 2 = Low Risk. Abuse screen: Denies threats or abuse. Denies injuries from another. Nutritional screening: No deficits noted. Tuberculosis screening: No symptoms or risk factors identified. Assessment: 17:00 Reassessment: No changes from previously documented assessment. See triage assessment. ss 18:00 Reassessment: Patient appears in no apparent distress at this time. Patient and/or eh3 family updated on plan of care and expected duration. Pain level reassessed. Patient is alert, oriented x 3, equal unlabored respirations, skin warm/dry/pink. 19:00 Reassessment: Patient appears in no apparent distress at this time. Patient and/or eh3 family updated on plan of care and expected duration. Pain level reassessed. Patient is alert, oriented x 3, equal unlabored respirations, skin warm/dry/pink. Vital Signs: 17:03 BP 117 / 68; Pulse 106; Resp 14; Temp 98.2(O); Pulse Ox 96% ; Weight 65.77 kg; Height 5 ss ft. 0 in. (152.40 cm); Pain 0/10; 18:00 BP 128 / 44; Pulse 111; Resp 14; Pulse Ox 98% on R/A; eh3 19:00 BP 119 / 49; Pulse 77; Resp 11; Pulse Ox 97% on R/A; eh3 20:20 BP 116 / 40; Pulse 79; Resp 20; Pulse Ox 97% on R/A; ll3 20:30 BP 142 / 46; Pulse 69; Resp 15; Pulse Ox 96% on R/A; ll3 21:55 BP 115 / 54; Pulse 69; Resp 16; Pulse Ox 98% on R/A; ll3 17:03 Body Mass Index 28.32 (65.77 kg, 152.40 cm) ED Course: 16:51 Patient arrived in ED. eb 16:52 Bryon Rivera MD is Attending Physician. rn 16:55 Andria Yun, RN is Primary Nurse. ss 17:00 Patient has correct armband on for positive identification. Bed in low position. Call ss light in reach. Side rails up X2. Client placed on continuous cardiac and pulse oximetry monitoring. NIBP monitoring applied. Door closed. Noise minimized. Warm blanket given. 17:00 Maintain EMS IV. Dressing intact. Good blood return noted. Site clean \T\ dry. Gauge \T\ ss site: 20g LAC. 17:09 Triage completed. ss 17:09 Arm band placed on. ss 17:36 XRAY CXR (1 view) In Process Unspecified. 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 vg1 18:12 initiated a transfer with Brian from [facility]. mw2 18:40 Lab(s) recollected, by me, sent to lab. Inserted saline lock: 22 gauge in right vg1 forearm, using aseptic technique. 19:05 Attending Physician role handed off by Bryon Rivera MD [facility] 19:05 Keyshawn Kaur MD is Attending Physician. [facility] 19:10 Primary Nurse role handed off by Andria Yun, ALEXANDRA mw2 19:[address] Kaur with Joaquina from [facility]. mw2 19:[address] Kaur with Dr. Vázquez from [facility]. mw2 20:[address] Kaur with the Doctor from [facility]. mw2 20:56 administrative approval given by Kathy Jurado/ patient has been accepted to [address] to bed 10 A [id number]/ Dr. Vargas accepted the patient in transfer/report to be called to [phone]. 22:14 Patient transferred, IV remains in place. ll3 Administered Medications: 18:30 Drug: NS 0.9% 500 ml Route: IV; Rate: bolus; Site: left antecubital; eh3 21:27 Follow up: Response: No adverse reaction; IV Status: Completed infusion; IV Intake: ll3 500ml 20:23 Drug: ProTONIX (pantoprazole) 40 mg Route: IVP; Site: left antecubital; ll3 21:27 Follow up: Response: No adverse reaction ll3 20:23 Drug: ProTONIX (pantoprazole) 8 mg/hr Route: IV; Rate: 25 ml/hr; Site: left antecubital;ll3 20:33 Drug: Lopressor (metoprolol TARTRATE)) 25 mg Route: PO; ll3 21:44 Follow up: Response: No adverse reaction ll3 Medication: 22:15 VIS not applicable for this client. ll3 Intake: 21:27 IV: 500ml; Total: 500ml. ll3 Outcome: 18:00 ER care complete, transfer ordered by . rn 22:14 Transferred by ground EMS to [facility], Transfer form ll3 completed. X-rays sent w/ patient. 22:14 Condition: stable 22:14 Instructed on the need for transfer, Demonstrated understanding of instructions. 22:15 Patient left the ED. ll3 Signatures: Dispatcher [employer] EDMS Keyshawn Kaur MD MD cha Nieto, Roman, MD MD rn Smirch, Shelby, RN RN ss Barry Barbosa mw2 Cherie Zapien Victoria, RN RN 1 Cecile Lagunas RN RN 3 Peggy Vázquez RN RN 3 Corrections: (The following items were deleted from the chart) 19:53 18:00 BP 119 / 49; Pulse 77bpm; Resp 11bpm; Pulse Ox 97% RA; eh3 eh3 21:12 20:56 administrative approval given by Kathy Jurado/ patient has been accepted to [address] to bed 100/ Dr. Keyes accepted the patient in transfer/report to be called to [phone] [place] [address] 21:31 20:56 administrative approval given by Kathy Jurado/ patient has been accepted to [address] to bed 100/ Dr. Vargas accepted the patient in transfer/report to be called to [phone] [facility]
--- NOTE | 2022-06-13 18:02 | EDPHYS ---
Physician Documentation [facility] Name: Martha Pradhan Age: 61 yrs Sex: Female : 1960 Arrival Date: 06/13/2022 Time: 16:51 Bed 19 Private MD: ED Physician Keyshawn Kaur HPI: 06/13 17:10 This 61 yrs old Female presents to ER via EMS with complaints of palpitations. rn 17:10 The patient presents with a history of heart racing. Context: The symptoms occur at rn rest. Onset: The symptoms/episode began/occurred 2 hour(s) ago. Duration: The patient or guardian reports a single episode, that is now resolved. Modifying factors: The symptoms are aggravated by nothing. The symptoms are alleviated by adenosine x2. Associated signs and symptoms: Pertinent positives: cough, lightheadedness, SOB, Pertinent negatives: fever. Severity of symptoms: At their worst the symptoms were moderate in the emergency department the symptoms have improved. The patient has experienced similar episodes in the past. The patient has been recently seen at the [facility] Emergency Department. Pt recently seen at this ER a few days ago, sent home with abx for resp infection and UTI, returns for palpitations. Found to be in SVT, given adenosine x2 by EMS for HR in 190s, now down to 115. Pt reports hx of SVT, takes metoprolol. No chest pain. . Historical: - Allergies: 17:09 haloperidol lactate; ss 17:09 hydroxyzine HCl; ss 17:09 Hydroxyzine Pamoate; ss 17:09 Ibuprofen; ss 17:09 Lyrica; ss 17:09 meloxicam; ss 17:09 nalbuphine HCl; ss 17:09 Naproxen; ss 17:09 NSAIDS (Non-Steroidal Anti-Inflammatory Drug); ss 17:09 Nubain; ss 17:09 Risperdal; ss 17:09 Vistaril; ss - Home Meds: 17:09 metoprolol tartrate 50 mg Oral tab 1 tab 2 times per day [Active]; Prozac 40 mg Oral ss cap 1 cap once daily [Active]; Xanax Oral [Active]; Doxycycline Oral [Active]; - PMHx: 17:09 ADD/ADHD; Anxiety; Arthritis; Back pain; bleeding ulcers; Chronic pain; GERD; Irritable ss bowel syndrome; Osteoporosis; PE; restless leg syndrome; Tachycardia; ULCER; - PSHx: 17:09 Appendectomy; hysterectomy; left clavicle repair; ss - Immunization history:: Adult Immunizations up to date. - Social history:: Smoking status: Patient denies any tobacco usage or history of. Patient/guardian denies using alcohol. - Family history:: not pertinent. - Hospitalizations: : No recent hospitalization is reported. ROS: 17:10 Constitutional: Negative for fever, chills, and weight loss, Eyes: Negative for injury, rn pain, redness, and discharge, Cardiovascular: + palpitations Respiratory: + cough Abdomen/GI: Negative for abdominal pain, and constipation MS/Extremity: Negative for injury and deformity, Skin: Negative for injury, rash, and discoloration, Neuro: Negative for headache, numbness, tingling, and seizure. Exam: 17:10 Constitutional: This is a well developed, well nourished patient who is awake, alert, rn and in no acute distress. Head/Face: Normocephalic, atraumatic. ENT: dry MM Cardiovascular: Tachycardic, regular. No pulse deficits. Respiratory: No increased work of breathing, no retractions or nasal flaring. Abdomen/GI: Soft, non-tender, dark stool that is hemoccult + Skin: Warm, dry MS/ Extremity: Pulses equal, no cyanosis. Neuro: Awake and alert, GCS 15 17:42 ECG was reviewed by the Attending Physician. rn Vital Signs: 17:03 BP 117 / 68; Pulse 106; Resp 14; Temp 98.2(O); Pulse Ox 96% ; Weight 65.77 kg; Height 5 ss ft. 0 in. (152.40 cm); Pain 0/10; 18:00 BP 128 / 44; Pulse 111; Resp 14; Pulse Ox 98% on R/A; eh3 19:00 BP 119 / 49; Pulse 77; Resp 11; Pulse Ox 97% on R/A; eh3 20:20 BP 116 / 40; Pulse 79; Resp 20; Pulse Ox 97% on R/A; ll3 20:30 BP 142 / 46; Pulse 69; Resp 15; Pulse Ox 96% on R/A; ll3 21:55 BP 115 / 54; Pulse 69; Resp 16; Pulse Ox 98% on R/A; ll3 17:03 Body Mass Index 28.32 (65.77 kg, 152.40 cm) ss MDM: 16:54 Patient medically screened. rn 17:54 Differential diagnosis: arrythmia, dehydration, GI bleed, gastric ulcer, SVT. Data rn reviewed: vital signs, nurses notes, lab test result(s), EKG, radiologic studies, plain films, and as a result, I will admit patient. Counseling: I had a detailed discussion with the patient and/or guardian regarding: the historical points, exam findings, and any diagnostic results supporting the discharge/admit diagnosis, lab results, radiology results, the need to transfer to another facility, for higher level of care, [facility] does not immediately have the required specialist. Response to treatment: the patient's symptoms have mildly improved after treatment, and as a result, I will admit patient. Admission orders: after a detailed discussion of the patient's condition and case, the admit orders are written by me. 17:58 ED course: Pt with SVT, resolved after 2 doses of adenosine. Pt reports dark stool with rn hx of gastric ulcers. Stool is dark black and hemoccult +. slight drop in hemoglobin since 2 days ago. Tachycardic. BP normal. Will transfer to [facility] for GI bleed/melena with SVT and generalized weakness. . 18:57 ED course: [facility] transfer center states transfer likely after shift change, will rn hand off to Dr. Kaur for completion of transfer.. 06/13 16:55 Order name: BMP; Complete Time: 19:44 rn 06/13 16:55 Order name: Blood Culture Adult (2) rn 06/13 16:55 Order name: CBC with Diff; Complete Time: 17:42 rn 06/13 16:55 Order name: Magnesium; Complete Time: 19:44 rn 06/13 16:55 Order name: NT PRO-BNP; Complete Time: 19:44 rn 06/13 16:55 Order name: PT-INR; Complete Time: 17:45 rn 06/13 16:55 Order name: Ptt, Activated; Complete Time: 17:45 rn 06/13 16:55 Order name: Troponin HS; Complete Time: 19:44 rn 06/13 16:55 Order name: XRAY CXR (1 view); Complete Time: 17:42 rn 06/13 17:58 Order name: SARS RAPID; Complete Time: 18:42 eb 06/13 18:25 Order name: Lactate w/ 2H reflex if indic.; Complete Time: 19:44 rn 06/13 19:59 Order name: CBC with Diff; Complete Time: 20:52 eric 06/13 16:55 Order name: EKG; Complete Time: 16:55 rn 06/13 16:55 Order name: Cardiac monitoring; Complete Time: 17:16 rn 06/13 16:55 Order name: EKG - Nurse/Tech; Complete Time: 17:37 rn 06/13 16:55 Order name: IV Saline Lock; Complete Time: 17:16 rn 06/13 16:55 Order name: Labs collected and sent; Complete Time: 17:33 rn 06/13 16:55 Order name: O2 Per Protocol; Complete Time: 17:16 rn 06/13 16:55 Order name: O2 Sat Monitoring; Complete Time: 17:16 rn 06/13 17:55 Order name: Labs - recollect needed: recollect chemistries hemolyzed; Complete Time: eb 18:38 06/13 19:06 Order name: IV Saline Lock - Large Bore; Complete Time: 19:40 [facility] EC:42 Rate is 110 beats/min. Rhythm is regular. QRS [place] is Normal. MA interval is normal. rn QRS interval is normal. QT interval is normal. No Q waves. T waves are Normal. No ST changes noted. Clinical impression: Sinus tachycardia. Interpreted by me. Reviewed by me. Administered Medications: 18:30 Drug: NS 0.9% 500 ml Route: IV; Rate: bolus; Site: left antecubital; eh3 21:27 Follow up: Response: No adverse reaction; IV Status: Completed infusion; IV Intake: ll3 500ml 20:23 Drug: ProTONIX (pantoprazole) 40 mg Route: IVP; Site: left antecubital; ll3 21:27 Follow up: Response: No adverse reaction ll3 20:23 Drug: ProTONIX (pantoprazole) 8 mg/hr Route: IV; Rate: 25 ml/hr; Site: left antecubital;ll3 20:33 Drug: Lopressor (metoprolol TARTRATE)) 25 mg Route: PO; ll3 21:44 Follow up: Response: No adverse reaction ll3 Disposition Summary: 06/13/22 18:00 Transfer Ordered Transfer Location: [facility] rn Reason: Higher level of care rn Condition: Stable rn Problem: new rn Symptoms: have improved rn Accepting Physician: (06/13/22 22:15) 3 Diagnosis - Supraventricular tachycardia rn - GI Bleed/ Gastrointestinal hemorrhage, unspecified - Melena rn Forms: - Medication Reconciliation Form rn - SBAR form rn Signatures: Dispatcher [employer] EDMS Keyshawn Kaur MD MD cha Nieto, Roman, MD MD rn Smirch, Shelby RN RN Cherie Zapien Lynsea RN RN 3 Peggy Vázquez RN RN 3 Corrections: (The following items were deleted from the chart) 17:57 17:10 Constitutional: This is a well developed, well nourished patient who is awake, rn alert, and in no acute distress. Head/Face: Normocephalic, atraumatic. ENT: dry MM Cardiovascular: Tachycardic, regular. No pulse deficits. Respiratory: No increased work of breathing, no retractions or nasal flaring. Abdomen/GI: Soft, non-tender Skin: Warm, dry MS/ Extremity: Pulses equal, no cyanosis. Neuro: Awake and alert, GCS 15 rn 19:44 18:00 Dr. black [facility] 22:15 19:44 [facility]
[2022-06-13] MEDS ORDERED: NA CHLORIDE 0.9% 500 ML ONE (18:30)
[2022-06-13 18:33] LABS: SARS-CoV-2 Antigen Rapid Res Negative (Negative)
[2022-06-13 19:10] LABS: Troponin High Sensitivity 10.3 pg/mL (<58.9)
[2022-06-13 19:11] LABS: Potassium 4.4 mmol/L (3.5-5.1)
[2022-06-13] MEDS ORDERED: NA CHLORIDE 0.9% 250 ML ONE (20:02)
[2022-06-13] MEDS ORDERED: PANTOPRAZOLE 40 MG INJ ONE (20:02)
[2022-06-13] MEDS ORDERED: METOPROLOL TAR 25 MG TAB ONE (20:34)
[2022-06-13 20:39] LABS: Absolute Lymphocytes (CBC) 0.8 K/uL (0.7-4.9); Hematocrit 34.5 % (36.0-45.0); Lymphocytes % 7.8 % (15.3-44.8); MCV 94.8 fL (80-100); MPV 7.6 fL (7.6-11.3); RBC Red Blood Cell Count 3.64 M/uL (3.86-4.86)
[2022-06-13 22:19] VITALS: TEMP 98.2
[2022-06-13 22:25] VITALS: BP 115/54; O2SAT 98
--- NOTE | 2022-06-15 08:35 | EKG ---
Test Date: 2022-06-13 Test Time: 17:38:35 Hat Braider: ITZ MEASUREMENT RESULTS: Intervals: Rate: 110 NV: 130 QRSD: 76 QT: 332 QTc: 449 [place]: P: 50 NV: 130 QRS: 48 T: 48 INTERPRETIVE STATEMENTS: Sinus tachycardia Otherwise normal ECG Compared to ECG 03/13/2022 13:58:00 Sinus rhythm no longer present T-wave abnormality no longer present Prolonged QT interval no longer present Electronically Signed On 06-15-22 08:31:29 GENERAL MANAGER IN TRAINING by Nehemiah Mckinney
== END 2022-06-13 22:15 | disposition short-term general hospital (02) ==
LOC: ER 16:50
DX: I47.1 Supraventricular tachycardia (principal); K92.1 Melena; F41.9 Anxiety disorder, unspecified; Z86.711 Personal history of pulmonary embolism; Z20.822 Contact with and (suspected) exposure to COVID-19; Z88.6 Allergy status to analgesic agent; Z88.8 Allergy status to other drugs, medicaments and biological substances
CPT/HCPCS: 96361; 93005; 87040 ×2; 85025 ×2; 80048; 36415; 83735; 85610; 83605; 85730; 84484; 83880; 71045; 96374; 99285; 87811; C9113; J7050; J7040

== ENCOUNTER 2022-07-12 15:55 | Emergency (ER) | payer OTHER ==
--- OUTSIDE RECORDS SUMMARY | 2022-07-12 16:07 | XMS REPORT | Continuity of Care Document ---
:1960 Author Organization [facility] t Address [address] [place] [address] Care Team Providers Name Role Phone SOHAN MCNEIL Primary Care Physician Unavailable Nirmal Hancock Attending Clinician Unavailable NIVIA BESS Attending Clinician Unavailable Doctor Unassigned, [place] Attending Clinician Unavailable MARIXA LEE Attending Clinician Unavailable Dino Mayer RN Attending Clinician Unavailable TIFFANI DARBY Attending Clinician Unavailable TIFFANI DARBY Attending Clinician Unavailable Sharif Castañeda CRNA Attending Clinician Alexandru Austin MD Attending Clinician Kristan Monroe CRNA Attending Clinician Nivia Bess MD Attending Clinician Only, Adc Test Attending Clinician Unavailable JOE MORALES Attending Clinician Unavailable ROGELIO Attending Clinician Unavailable SHERWIN NASH Attending Clinician Unavailable SHERWIN NASH Attending Clinician Unavailable NIVIA BESS Admitting Clinician Unavailable TIFFANI DARBY Admitting Clinician Unavailable Nivia Bess MD Admitting Clinician ROGELIO Admitting Clinician Unavailable Payers Payer Name Policy Type Policy Number Effective Date Expiration Date Ana María escobar [facility] [id number] 2012 2022 PLAN STAR 00:00:00 00:00:00 WELLMED/[facility] DUAL [id number] 2020 COMP HMO D SNP 00:00:00 MEDICAID [facility] [id number] 2020 00:00:00 [facility] [place] STAR [id number] 2013 PLUS 00:00:00 [facility] WELLMED [id number] 2020 2024 00:00:00 00:00:00 [place] [id number] 2019 Common DUAL MCR WELLMED 00:00:00 [facility] [id number] 2012 Common 00:00:00 [facility] [id number] 2012 Common 00:00:00 [facility] [id number] 2012 Common 00:00:[address] [facility] MEDICARE B-[place]: [id number] 2006 Play4test 00:00:00 [facility] [id number] PLAN - DUAL COMPLETE - SNP PLAN (MEDICARE REPLACEMENT HMO) [facility] [id number] 2018 COMMUNITY PLAN - 00:00:00 [place] STAR PLUS (MEDICAID HMO) Problems Condition Condition Condition Status Onset Resolution Last Treating Co mments Source Name Details Category Date Date Treatment Clinician Date GI bleed GI bleed Disease Active Unive rs 1-02 ity of 00:00: [place] 00 Medical Branch Peptic Peptic Disease Active Overview: Univer s ulcer ulcer 6-15 Formattin ity of disease disease 00:00: g of this note Medical might be Branch different from the original. Added automatic ally from request for surgery [id number] Multiple Multiple Disease Active Overview: Un raffi gastric gastric 2-02 Formattin ity o f ulcers ulcers 00:00: g of this note Medical might be Branch different from the original. Added automatic ally from request for surgery [id number] Hiatal Hiatal Disease Active 2019-06 Univers hernia hernia 2-03 ity of 00:00: [place] [facility] Post-op Post-op Disease Active 2015-06 Univers pain pain 0-31 ity of 00:00: [place] [facility] Chronic Chronic Disease Active Univers neck pain neck pain 1-11 ity of 00:00: [place] [address] Medical Branch Anxiety Anxiety Disease Active Univers disorder disorder 1-11 ity of 00:00: [place] [facility] [id number] DDD Problem Common (degenerat Spirit ceferino disc - CHI disease), [facility] [id number] Attention Problem Comm on deficit Spirit hyperactiv - [facility] ity disorder [facility] (ADHD), Medical combined Center type [id number] Panic Problem Common disorder Spirit [episodic - CHI paroxysmal St anxiety] [facility] [id number] GERD Problem Common without Spirit esophagiti - [facility]I s [facility] [id number] 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 [facility] [id number] +5th digit Problem Co mmon eff Spirit 03/13/20*CK - CHI D (chronic [facility]) Medical stage 3, Center GFR 30-59 ml/min [id number] Generalize Problem Com mon d anxiety Spirit disorder - CHI [facility] [id number] PTSD Problem Common (post-trau Spirit matic - CHI stress St disorder) [facility] [id number] Bilateral Problem Co mmon 102 tinnitus [facility] - [facility]I [facility] [id number] Current Problem Common moderate Spirit episode of - CHI major St depressive [facility] disorder Medical without Center prior episode [id number] Osteoporos Problem Com mon is, Spirit unspecifie - CHI d osteoporos [facility] is type, Medical unspecifie Center d pathologic al fracture presence [id number] 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 - CHI with both St constipati [facility] on and Medical diarrhea Center [id number] 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 - CHI [facility] [id number] Allergic Problem Commo n rhinitis, Spirit unspecifie - CHI d seasonalit [facility] y, Medical unspecifie Center d trigger [id number] Mixed Problem Common hyperlipid Spirit emia - CHI [facility] [id number] Stage 3a Problem Comm on chronic Spirit kidney - [facility] disease [facility] Atheroscle 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 Spirit right right - CHI renal renal St artery artery [facility] [id number] 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 - [facility] joints, St unspecifie [facility] osteoarthr Center itis type [id number] History of Problem Co mmon uterine [facility] cancer [facility] [id number] Chronic Problem Commo n pain [facility] syndrome [facility] 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 [id number] Essential Problem Com mon thrombocyt [facility] osis [facility] Chronic Chronic Problem Common fatigue fatigue [facility] syndrome [facility] Iron Fe Problem Common deficiency deficiency Sp julio césar anemia anemia [facility] [id number] Primary Problem Comm on osteoarthr [facility] itis of [facility] left knee [facility] [id number] Primary Problem Comm on osteoarthr [facility] itis of [facility]I right knee [facility] Anemia in Anemia in Problem Com mon chronic chronic [facility] kidney kidney [facility] disease disease [facility] Hypercalce Hypercalce Problem C ommon shahnaz shahnaz [facility] [id number] Shoulder Problem Comm on arthritis [facility] Anemia due Anemia due Problem C ommon to blood to blood [facility] loss loss [facility] [id number] SVT Problem Common (supravent [facility] ricular [facility] Supraventr Disease Active U nivers icular icular ity of dysrhythmi dysrhythmi [place] [facility] [place] Chronic Chronic Disease Active Univers low back low back ity of pain pain [place] [facility] Allergies, Adverse Reactions, Alerts Allergy Allergy Status Severity Reaction(s) Onset Inactive Treating Comm ents Source Name Type Date Date Clinician Haloperi Propensi Active Anaphylaxis 2020-0 U nivers dol ty to 2-04 ity of Lactate adverse 00:00: [place] reaction 00 Medical s Branch Etodolac Propensi Active Anaphylaxis 2020-0 U nivers ty to 2-04 ity of adverse 00:00: [place] reaction 00 Medical s Branch HALOPERI DRUG Active Anaphylaxis Uni vers DOL INGREDI 2-04 ity of LACTATE 00:00: [place] [facility] ETODOLAC DRUG Active Anaphylaxis Uni vers INGREDI 2- ity of 00:00: [place] 00 Medical Branch Pregabal Propensi Active Hallucinatio [...] Medica l lammator s Branch y Drug) MELOXICA DRUG Active Other-Cmnt 2014-06 Univ ers [...] 2-23 ity of SALT) 00:00: [place] 00 [facility] [id number] Drug Active throat Common allergy closes Spirit [facility] hydroxyz hydroxyz Active seizure Commo n ine ine [facility] [id number] Drug Active throat Common allergy [facility] pregabal pregabal Active throat Common in in [facility] etodolac etodolac Active throat Common [facility] ibuprofe ibuprofe Active throat Common n n [facility] meloxica meloxica Active seizure Commo n m m [facility] Family History Family Member Diagnosis Comments Start Date Stop Date Source Natural father Cancer [facility] Natural mother Hypertension Universi [facility] Social History Social Habit Start Date Stop Date Quantity Comments Source History of tobacco Passive smoker Un iversity of use [place] [facility] History SDOH Social Unive rsity of Connections [facility] Med ical Together Branch History SDOH Social Unive rsity of Connections [facility] Medical Branch History SDOH Social Unive rsity of [facility] Medical Membership Branch History SDOH Social Unive rsity of [facility] Meetings Branch Sex Assigned At Common Sp julio césar - [facility] Alcohol intake 2022-06-16 2022-06-16 0 /d University of 00:00:00 00:00:00 [place] [facility] Tobacco use and 2022-06-15 2022-06-15 Smokeless Universit y of exposure 00:00:00 00:00:00 tobacco non-user [facility] dical Branch Tobacco Comment 2022-06-15 2022-06-15 stopped Universit y of 00:00:00 00:00:00 02/22/2013 [place] [facility] Exposure to 2022-06-04 2022-06-14 Not sure University of SARS-CoV-2 (event) 00:00:00 05:30:00 [place] [facility] History SDOH 2022-06-14 2022-06-14 1 University o f Alcohol Frequency 00:00:00 00:00:00 [place] M edical [facility] History SDOH 2022-06-14 2022-06-14 0 University o f Alcohol Std Drinks 00:00:00 00:00:00 [place] [facility] History SDOH 2022-06-14 2022-06-14 1 University o f Alcohol Binge 00:00:00 00:00:00 [place] [facility] History SDOH Social 2022-06-14 2022-06-14 3 Unive rsity of Connections Phone 00:00:00 00:00:00 [facility] edical Branch History SDMI Social 2022-06-14 2022-06-14 5 Unive rsity of Connections Living 00:00:00 00:00:00 [place] [facility] History SDOH 2022-06-14 2022-06-14 0 University o f Physical Activity 00:00:00 00:00:00 [facility] edical DPW Branch History SDMI 2022-06-14 2022-06-14 0 University o f Physical Activity 00:00:00 00:00:00 [facility] edical MPS Branch History SDOH 2022-06-14 2022-06-14 5 University o f Financial 00:00:00 00:00:00 [place] [facility] History SDOH Food 2022-06-14 2022-06-14 1 Univers ity of Worry 00:00:00 00:00:00 [place] [facility] History SDOH Food 2022-06-14 2022-06-14 1 Univers ity of Scarcity 00:00:00 00:00:00 [place] [facility] History SDOH 2022-06-14 2022-06-14 2 University o f Transport Med 00:00:00 00:00:00 [place] [facility] History SDMI 2022-06-14 2022-06-14 2 [place] o f Transport Non-Med 00:00:00 00:00:00 [facility] Branch Smoking Status Start Date Stop Date Source Ex-smoker 2022-06-15 00:00:00 2022-06-15 00:00:00 [facility] Never Smoker Common Spirit - [facility] Medications Ordered Filled Start Stop Current Ordering Indication Dosage Frequency Signature Comments Components Source Medication Medication Date Date Medication? Clinician (SIG) Name Name pantoprazol Yes 40mg 40 mg, Univ ers e 1-05 Oral, BID, ity of (PROTONIX) 02:00: [place] EC tablet 00 on Tue Medical 40 mg 06/16/22 at Branch 1999, Until Discontinu ed, Routine metoprolol Yes 50mg Take 50 mg U nivers tartrate -04 by mouth ity of (LOPRESSOR) 15:23: [place] 25 [place] 23 morning Medical tablet and 50 mg Branch in the evening. dicyclomine 2023-0 Yes 20mg Take 20 mg Univers 20 mg 1-04 by mouth ity of tablet 15:23: in the [place] [address] morning Medical and 20 mg Branch in the evening. FLUoxetine 2023-0 Yes 40mg Take 40 mg U nivers 40 mg 1-04 by mouth ity of capsule 15:23: in the [place] [address] morning Medical and 40 mg Branch in the evening. OLANZapine 2023-0 Yes 1mg Take 1 mg Un raffi 2.5 mg 1-04 by mouth ity of tablet 15:23: in the [place] [address] morning Medical and 1 mg Branch in the evening. ALPRAZolam 2023-0 Yes 1mg Take 1 mg Un raffi (XANAX) 1 1-04 by mouth ity of mg tablet 15:23: in the [place] [address] morning Medical and 1 mg Branch in the evening. metoprolol 2023-0 Yes 50mg Take 50 mg U nivers tartrate 1-04 by mouth ity of (LOPRESSOR) 15:23: in the [facility] 25 mg 23 morning Medical tablet and 50 mg Branch in the evening. dicyclomine 2023-0 Yes 20mg Take 20 mg Univers 20 mg 1-04 by mouth ity of tablet 15:23: in the [place] [address] morning Medical and 20 mg Branch in the evening. FLUoxetine 2023-0 Yes 40mg Take 40 mg U nivers 40 mg 1-04 by mouth ity of capsule 15:23: in the [place] [address] morning Medical and 40 mg Branch in the evening. OLANZapine 2023-0 Yes 1mg Take 1 mg Un raffi 2.5 mg 1-04 by mouth ity of tablet 15:23: in the [place] [address] morning Medical and 1 mg Branch in the evening. ALPRAZolam 2023-0 Yes 1mg Take 1 mg Un raffi (XANAX) 1 1-04 by mouth ity of mg tablet 15:23: in the [place] [address] morning Medical and 1 mg Branch in the evening. metoprolol 2023-0 Yes 50mg Take 50 mg U nivers tartrate 1-04 by mouth ity of (LOPRESSOR) 15:23: in the [facility] 25 mg 23 morning Medical tablet and 50 mg Branch in the evening. dicyclomine 2023-0 Yes 20mg Take 20 mg Univers 20 mg 1-04 by mouth ity of tablet 15:23: in the [place] [address] morning Medical and 20 mg Branch in the evening. FLUoxetine 2023-0 Yes 40mg Take 40 mg U nivers 40 mg 1-04 by mouth ity of capsule 15:23: in the [place] [address] morning Medical and 40 mg Branch in the evening. OLANZapine 2023-0 Yes 1mg Take 1 mg Un raffi 2.5 mg 1-04 by mouth ity of tablet 15:23: in the [place] [address] morning Medical and 1 mg Branch in the evening. ALPRAZolam 2023-0 Yes 1mg Take 1 mg Un raffi (XANAX) 1 1-04 by mouth ity of mg tablet 15:23: in the [place] [address] morning Medical and 1 mg Branch in the evening. pantoprazol 2023-0 2023- No 40mg Take 40 mg Univers e 1-04 -04 by mouth ity of (PROTONIX) 11:30: 00:00 in the [facility] 40 mg EC 43 :00 morning Medical tablet and 40 mg Branch in the evening. pantoprazol 3-0 2023- No 40mg Take 40 mg Univers e 06-16-04 by mouth ity of (PROTONIX) 11:30: 00:00 in the [facility] 40 mg EC 43 :00 morning Medical tablet and 40 mg Branch in the evening. metoprolol 3-0 Yes 50mg Take 50 mg U nivers tartrate 1-04 by mouth ity of (LOPRESSOR) 11:30: in the [facility] 25 mg 39 morning Medical tablet and 50 mg Branch in the evening. dicyclomine 3-0 Yes 20mg Take 20 mg Univers 20 mg 1-04 by mouth ity of tablet 11:30: in the [place] [address] morning Medical and 20 mg Branch in the evening. FLUoxetine 2023-0 Yes 40mg Take 40 mg U nivers 40 mg 1-04 by mouth ity of capsule 11:30: in the [place] [address] morning Medical and 40 mg Branch in the evening. OLANZapine 2023-0 Yes 1mg Take 1 mg Un raffi 2.5 mg 1-04 by mouth ity of tablet 11:30: in the [place] [address] morning Medical and 1 mg Branch in the evening. ALPRAZolam 2023-0 Yes 1mg Take 1 mg Un raffi (XANAX) 1 1-04 by mouth ity of mg tablet 11:30: in the [place] 39 morning Medical and 1 mg Branch in the evening. dexmethylph 2023-0 Yes 15mg Take 1 Univ ers enidate 15 1-04 capsule by ity of mg 24 hr 00:00: mouth in [place] capsule 00 the Medical morning. Branch pantoprazol 2023-0 Yes [id number] 40mg Take 1 Univers e 1-04 tablet by ity of (PROTONIX) 00:00: mouth in [place] 40 mg EC 00 the Medical tablet morning Branch and 1 tablet in the evening. dexmethylph 2023-0 Yes 15mg Take 1 Univ ers enidate 15 1-04 capsule by ity of mg 24 hr 00:00: mouth in [place] capsule 00 the Medical morning. Branch pantoprazol 2023-0 Yes [id number] 40mg Take 1 Univers e 1-04 tablet by ity of (PROTONIX) 00:00: mouth in [place] 40 mg EC 00 the Medical tablet morning Branch and 1 tablet in the evening. dexmethylph 2023-0 Yes 15mg Take 1 Univ ers enidate 15 1-04 capsule by ity of mg 24 hr 00:00: mouth in [place] capsule 00 the Medical morning. Branch pantoprazol 2023-0 Yes [id number] 40mg Take 1 Univers e 1-04 tablet by ity of (PROTONIX) 00:00: mouth in [place] 40 mg EC 00 the Medical tablet morning Branch and 1 tablet in the evening. dexmethylph 2023-0 Yes 15mg Take 1 Univ ers enidate 15 1-04 capsule by ity of mg 24 hr 00:00: mouth in [place] capsule 00 the Medical morning. Branch pantoprazol 2023-0 Yes [id number] 40mg Take 1 Univers e 1-04 tablet by ity of (PROTONIX) 00:00: mouth in [place] 40 mg EC 00 the Medical tablet morning Branch and 1 tablet in the evening. lactated 2023-0 2023- No 500mL at 100 Unive rs ringers IV 1-03 01-03 mL/hr, 500 it y of infusion 17:15: 17:45 mL, [place] 500 mL 00 :48 Intravenou Medical s, ONCE, 1 Branch dose, On Tue06/15/22 at 1115, Routine dicyclomine 2023-0 Yes 20mg 20 mg, Univ ers (BENTYL) 1-03 Oral, BID, ity o f tablet 20 15:00: First dose [place] mg 00 on [facility] 06/15/22 at Branch 0900, Until Discontinu ed, Routine dicyclomine 2022-0 Yes 20mg 20 mg, Univ ers (BENTYL) 06-15 Oral, BID, ity o f tablet 20 15:00: First dose [place] mg 00 on [facility] 06/15/22 at Branch 0900, Until Discontinu ed, Routine pantoprazol 2022-0 Yes 40mg 40 mg, Univ ers e 06-15 Slow IV ity of (PROTONIX) 02:00: Push, [place] injection 00 Q12H, Medical 40 mg First dose Branch on Tue06/14/22 at 1999, Until Discontinu ed pantoprazol 2022-0 202- No 40mg 40 mg, Uni vers e 06-15 Slow IV ity of (PROTONIX) 02:00: 20:37 Push, [place] injection 00 :34 Q12H, Medical 40 mg First dose Branch on Tue06/14/22 at 1999, Until Discontinu ed alum-mag 2022-0 Yes 30mL 30 mL, Univers hydroxide-s 06-14 Oral, ity of imeth 21:45: Q6HPRNHarrod, [place] (MAALOX 09 Starting Medical PLUS / on [facility] 06/14/22 at [facility]) 1545, 200-200-20 Until mg/5 mL Discontinu suspension ed, 30 mL Routine, Indigestio n alum-mag 2022-0 Yes 30mL 30 mL, Univers hydroxide-s 06-14 Oral, ity of imeth 21:45: Q6HPRN, [place] (MAALOX 09 Starting Medical PLUS / on [facility] 06/14/22 at [facility]) 1545, 200-200-20 Until mg/5 mL Discontinu suspension ed, 30 mL Routine, Indigestio n NaCl 0.9% 2022-0 Yes 10mL 10 mL, Univer s (NS) 06-14 Slow IV ity of injection 21:43: Push, PRN, [place] 10 mL 50 Starting Medical on Tue [place] 06/14/22 at 1543, Until Discontinu ed, Routine, line maintenanc e NaCl 0.9% 2022-0 Yes 10mL 10 mL, Univer s (NS) 06-14 Slow IV ity of injection 21:43: Push, PRN, [place] 10 mL 50 Starting Medical on Tue06/14/22 at 1543, Until Discontinu ed, Routine, line maintenanc e lidocaine 2022-0 Yes 5mL 5 mL, Univers 1% (PF) 06-14 Subcutaneo ity of (XYLOCAINE) 21:43: us, PRN, [place] injection 5 49 Starting Medi sondra mL on Tue06/14/22 at 1543, Until Discontinu ed, Routine, Local anesthesia lidocaine 2022-0 Yes 5mL 5 mL, Univers 1% (PF) 06-14 Subcutaneo ity of (XYLOCAINE) 21:43: [place], PRN, [place] injection 5 49 Starting Medi sondra mL on Tue06/14/22 at 1543, Until Discontinu ed, Routine, Local anesthesia lactated 2022-0 2023- No 500mL at 999 Unive rs ringers IV 06-14 mL/hr, 500 it y of infusion 18:45: 17:57 mL, [place] 500 mL 00 :02 Intravenou Medical s, ONCE, 1 Branch dose, On Tue06/14/22 at 1245, Routine metoprolol 2022-0 2022- No 5mg 5 mg, Unive rs (LOPRESSOR) 06-14 Intravenou i ty of injection 5 18:30: 17:36 s, ONCE, 1 [place] mg 00 :00 dose, On Medical Tue06/14/22 Branch at 1230, Routine metoprolol 2022-0 2022- No 5mg 5 mg, Unive rs (LOPRESSOR) 06-14 Intravenou i ty of injection 5 18:00: 17:26 s, ONCE, 1 [place] mg 00 :00 dose, On Medical Tue06/14/22 Branch at 1200, Routine FLUoxetine 2022-0 Yes 40mg 40 mg, Unive rs (PROZAC) 06-14 Oral, BID, ity o f capsule 40 14:00: First dose [place] mg 00 on Tue06/14/22 at Branch 0800, Until Discontinu ed, Routine OLANZapine 2022-0 Yes 1.25mg 1.25 mg, U jolly (ZyPREXA) 1-02 Oral, BID, ity of tablet 1.25 14:00: First dose [place] mg [address] [facility] 06/14/22 at Branch 0800, Until Discontinu ed, Routine metoprolol 3-0 Yes 50mg 50 mg, Unive rs tartrate 1-02 Oral, BID, ity o f (LOPRESSOR) 14:00: First dose [place] tablet 50 00 on [facility] Medical 06/14/22 at Branch 0800, Until Discontinu ed, Routine ALPRAZolam 2022-0 Yes 1mg 1 mg, Univer s (XANAX) 102 Oral, BID, ity of tablet 1 mg 14:00: First dose [place] [address] [facility] 06/14/22 at Branch 0800, Until Discontinu ed, Routine FLUoxetine 2022-0 Yes 40mg 40 mg, Unive rs (PROZAC) 102 Oral, BID, ity o f capsule 40 14:00: First dose [place] mg [address] [facility] 06/14/22 at Branch 0800, Until Discontinu ed, Routine OLANZapine 2022-0 Yes 1.25mg 1.25 mg, U nivers (ZyPREXA) 06-14 Oral, BID, ity of tablet 1.25 14:00: First dose [place] mg [address] [facility] 06/14/22 at Branch 0800, Until Discontinu ed, Routine metoprolol 2022-0 Yes 50mg 50 mg, Unive rs tartrate 02 Oral, BID, ity o f (LOPRESSOR) 14:00: First dose [place] tablet 50 00 on [facility] 06/14/22 at Branch 0800, Until Discontinu ed, Routine ALPRAZolam 2022-0 Yes 1mg 1 mg, Univer s (XANAX) 06-14 Oral, BID, ity of tablet 1 mg 14:00: First dose [place] [address] [facility] 06/14/22 at Branch 0800, Until Discontinu ed, Routine iron 3-0 2023- No 200mg 200 mg, IV Unive rs sucrose 06-14 Infusion, ity of (VENOFER) 09:30: 14:12 ONCE, [place] 200 mg in 00 :00 Administer Medi sondra NaCl 0.9% over 2.5 Branch (NS) 100 mL Hours, On infusion [facility] 06/14/22 at 0330, For 1 dose KCL 2022- No 20meq 20 mEq, Univers (KLOR-CON 06-14 Oral, ity of M20) tablet 09:00: 08:45 ONCE, 1 [place] 20 mEq 00 :00 dose, On Medical Tue06/14/22 Branch at 0300, Routine magnesium 2022- No 2g 2 g, IV Univ ers sulfate in 06-14 Piggyback, it y of water 2 09:00: 09:52 Administer [place] as gram/50 mL 00 :00 over 60 Medica l (4 %) Minutes, Branch infusion 2 ONCE, 1 g dose, On Tue06/14/22 at 0300, Routine NaCl 0.9% 2022- No 2000mL at 999 Uni vers (NS) bolus 06-14 mL/hr, ity of infusion 07:30: 08:43 2,000 mL, [place] as 2,000 mL 00 :30 IV Medical Piggyback, Branch ONCE, 1 dose, On Tue06/14/22 at 0130, STAT guaiFENesin Yes 200mg 200 mg, Un raffi 100 mg/5 mL 06-14 Oral, ity of solution 07:23: Q4HPRN, [place] 200 mg 38 Starting Medical on Tue06/14/22 at 0123, Until Discontinu ed, Routine, Cough guaiFENesin Yes 200mg 200 mg, Un raffi 100 mg/5 mL 06-14 Oral, ity of solution 07:23: Q4HPRN, [place] 200 mg 38 Starting Medical on Tue06/14/22 at 0123, Until Discontinu ed, Routine, Cough pantoprazol 2022- No 40mg 40 mg, Uni vers e 06-14 Slow IV ity of (PROTONIX) 06:15: 06:38 Push, [place] injection 00 :00 Q12H, Medical 40 mg First dose Branch on Tue06/14/22 at 0015, Until Discontinu ed acetaminoph Yes 650mg 650 mg, Un raffi en 06-14 Oral, ity of (TYLENOL) 06:14: Q6HPRN, [place] tablet 650 56 Starting Medic al mg on Tue06/14/22 at 0014, Until Discontinu ed, Routine, Pain (scale 1-3) acetaminoph 2023-0 Yes 650mg 650 mg, Un raffi en 1-02 Oral, ity of (TYLENOL) 06:14: Q6HPRN, [place] tablet 650 56 Starting Medic al mg on Mon Branch 06/14/22 at 0014, Until Discontinu ed, Routine, Pain (scale 1-3) metoprolol 2023-0 Yes 50mg Take 50 mg U nivers tartrate 1-02 by mouth ity of (LOPRESSOR) 00:44: in the [facility] s 25 mg 38 morning Medical tablet and 50 mg Branch in the evening. dicyclomine 2023-0 Yes 20mg Take 20 mg Univers 20 mg 1-02 by mouth ity of tablet 00:44: in the [place] [place] [address] morning Medical and 20 mg Branch in the evening. FLUoxetine 2023-0 Yes 40mg Take 40 mg U nivers 40 mg 1-02 by mouth ity of capsule 00:44: in the [place] [address] morning Medical and 40 mg Branch in the evening. OLANZapine 2023-0 Yes 1mg Take 1 mg Un raffi 2.5 mg 1-02 by mouth ity of tablet 00:44: in the [place] [address] morning Medical and 1 mg Branch in the evening. pantoprazol 2023-0 Yes 40mg Take 40 mg Univers e 1-02 by mouth ity of (PROTONIX) 00:44: in the [place] 40 mg EC 38 morning Medical tablet and 40 mg Branch in the evening. ALPRAZolam 2023-0 Yes 1mg Take 1 mg Un raffi (XANAX) 1 1-02 by mouth ity of mg tablet 00:44: in the [place] [address] morning Medical and 1 mg Branch in the evening. metoprolol 2023-0 Yes 50mg Take 50 mg U nivers tartrate 1-02 by mouth ity of (LOPRESSOR) 00:44: in the [facility] s 25 mg 38 morning Medical tablet and 50 mg Branch in the evening. dicyclomine 2023-0 Yes 20mg Take 20 mg Univers 20 mg 1-02 by mouth ity of tablet 00:44: in the [place] [address] morning Medical and 20 mg Branch in the evening. FLUoxetine 2023-0 Yes 40mg Take 40 mg U nivers 40 mg 1-02 by mouth ity of capsule 00:44: in the [place] [address] morning Medical and 40 mg Branch in the evening. OLANZapine 2022-0 Yes 1mg Take 1 mg Un raffi 2.5 mg 06-14 by mouth ity of tablet 00:44: in the [place] [address] morning Medical and 1 mg Branch in the evening. pantoprazol 2022-0 Yes 40mg Take 40 mg Univers e 06-14 by mouth ity of (PROTONIX) 00:44: in the [place] 40 mg [facility] morning Medical tablet and 40 mg Branch in the evening. ALPRAZolam 0 Yes 1mg Take 1 mg Un raffi (XANAX) 1 06-14 by mouth ity of mg tablet 00:44: in the [place] [address] morning Medical and 1 mg Branch in the evening. clonazePAM 0 2022- No 1mg Take 1 mg U nivers (KLONOPIN) 06-14 by mouth ity of 1 mg tablet 00:44: 00:00 as needed. [place] 38 :00 [facility] Branch clonazePAM 2022-0 2022- No 1mg Take 1 mg U nivers (KLONOPIN) 06-14 by mouth ity of 1 mg tablet 00:44: 00:00 as needed. [place] 38 :00 [facility] Branch Lidocaine Lidocaine 2021-06 No 10mg Com tue 2 Spirit 00:00: - [facility] Eliealog Kenalog 2021-06 No 40mg Common (Triamcinol (Triamcinol 2-19 S pirit one) one) 00:00: - [facility] Lidocaine Lidocaine 2021-06 No 10mg Com mon 08-01 Spirit 00:00: - [facility] Kenalog Kenalog 2021-06 No 40mg Common (Triamcinol (Triamcinol 2-19 S pirit one) one) 00:00: - [facility] Lidocaine Lidocaine 2021-06 No 10mg Com mon 2- Spirit 00:00: - [facility] Kenalog Kenalog 2021-06 No 40mg Common (Triamcinol (Triamcinol 2-19 S pirit one) one) 00:00: - [facility] Kenalog Kenalog 2021-06 No 40mg Common (Triamcinol (Triamcinol 2-08 S pirit one) one) 00:00: - [facility] 00 [facility] Eugenia Bello 2021-06 No 40mg Common (Triamcinol (Triamcinol 2-08 S pirit one) one) 00:00: - [facility] 00 [facility] Eugenia Kenlaurie 2021-06 No 40mg Common (Triamcinol (Triamcinol 2-08 S pirit one) one) 00:00: - [facility] 00 [facility] Eugenia Bello 2021-06 No 40mg Common (Triamcinol (Triamcinol 2-08 S pirit one) one) 00:00: - [facility] No 40mg Common (Triamcinol (Triamcinol 2-08 S pirit one) one) 00:00: - [facility] 00 [facility] Eugenia Bello 2021-06 No 40mg Common (Triamcinol (Triamcinol 1-09 S pirit one) one) 00:00: - [facility] Eugenia Bello 2021-06 No 40mg Common (Triamcinol (Triamcinol 1-09 S pirit one) one) 00:00: - [facility] Eugenia Bello 2021-06 No 40mg Common (Triamcinol (Triamcinol 1-09 S pirit one) one) 00:00: - [facility] Eugenia Kenlaurie 2021-06 No 40mg Common (Triamcinol (Triamcinol 1-09 S pirit one) one) 00:00: - [facility] Eugenia Kenlaurie 2021-06 No 40mg Common (Triamcinol (Triamcinol 1-09 S pirit one) one) 00:00: - [facility] Eugenia Kenlaurie 2021-06 No 40mg Common (Triamcinol (Triamcinol 1-09 S pirit one) one) 00:00: - [facility] 00 [facility] Eugenia Bello 2021-06 No 40mg Common (Triamcinol (Triamcinol 1-09 S pirit one) one) 00:00: - [facility] Eugenia Bello 2021-06 No 40mg Common (Triamcinol (Triamcinol 0-12 S pirit one) one) 00:00: - [facility] 2021-06 No 40mg Common (Triamcinol (Triamcinol 0-12 S pirit one) one) 00:00: - [facility] 2021-06 No 40mg Common (Triamcinol (Triamcinol 0-12 S pirit one) one) 00:00: - [facility] 2021-06 No 40mg Common (Triamcinol (Triamcinol 0-12 S pirit one) one) 00:00: - [facility] 2021-06 No 40mg Common (Triamcinol (Triamcinol 0-12 S pirit one) one) 00:00: - [facility] 2021-06 No 40mg Common (Triamcinol (Triamcinol 0-12 S pirit one) one) 00:00: - [facility] 2021-06 No 40mg Common (Triamcinol (Triamcinol 0-12 S pirit one) one) 00:00: - [facility] 00 [facility] Eugenia Bello 2021-06 No 40mg Common (Triamcinol (Triamcinol 0-12 S pirit one) one) 00:00: - [facility] 2021-06 No 40mg Common (Triamcinol (Triamcinol 0-12 S pirit one) one) 00:00: - [facility] 00 [facility] Bupivicaine Bupivicaine No 2.5mg Common [place] Bang[place] 4-26 Spirit 00:00: - [facility] 00 [facility] Eugenia No 40mg Common (Triamcinol (Triamcinol 4-26 S pirit one) one) 00:00: - [facility] 00 [facility] Bupivicaine Bupivicaine No 2.5mg Common [place] 4-26 Spirit 00:00: - [facility] 00 [facility] Kenalog Kenalog 2-0 No 40mg Common (Triamcinol (Triamcinol 4-26 S pirit one) one) 00:00: - [facility] 00 [facility] Bupivicaine Bupivicaine 2-0 No 2.5mg Common [place] 4-26 Spirit 00:00: - [facility] 00 [facility] Kenalog Kenalog 2021-0 No 40mg Common (Triamcinol (Triamcinol 4-26 S pirit one) one) 00:00: - [facility] 00 [facility] Bupivicaine Bupivicaine 2-0 No 2.5mg Common [place] 4-26 Spirit 00:00: - [facility] 00 [facility] Kenalog Kenalog 2021-0 No 40mg Common (Triamcinol (Triamcinol 4-26 S pirit one) one) 00:00: - [facility] 00 [facility] Bupivicaine Bupivicaine 2021-0 No 2.5mg Common [place] 4-26 Spirit 00:00: - [facility] 00 [facility] Kenalog Kenalog 2021-0 No 40mg Common (Triamcinol (Triamcinol 4-26 S pirit one) one) 00:00: - [facility] Bupivicaine Bupivicaine 2-0 No 2.5mg Common [place] 4-26 Spirit 00:00: - [facility] Kenalog Kenalog 2021-0 No 40mg Common (Triamcinol (Triamcinol 4-26 S pirit one) one) 00:00: - [facility] Bupivicaine Bupivicaine 2-0 No 2.5mg Common [place] 4-26 Spirit 00:00: - [facility] 00 [facility] Kenalog Kenalog 2021-0 No 40mg Common (Triamcinol (Triamcinol 4-26 S pirit one) one) 00:00: - [facility] 00 [facility] Bupivicaine Bupivicaine 2-0 No 2.5mg Common [place] 4-26 Spirit 00:00: - [facility] 00 [facility] Kenalog Kenalog 2021-0 No 40mg Common (Triamcinol (Triamcinol 4-26 S pirit one) one) 00:00: - [facility] 00 [facility] Bupivicaine Bupivicaine 2021-0 No 2.5mg Common [place] 4-26 Spirit 00:00: - [facility] 00 [facility] Kenalog Kenalog 2021-0 No 40mg Common (Triamcinol (Triamcinol 4-26 S pirit one) one) 00:00: - [facility] 00 [facility] Bupivicaine Bupivicaine 2021-0 No 2.5mg Common [place] 4-26 Spirit 00:00: - [facility] 00 [facility] Kenalog Kenalog 2021-0 No 40mg Common (Triamcinol (Triamcinol 4-26 S pirit one) one) 00:00: - [facility] Bupivicaine Bupivicaine 2021-0 No 2.5mg Common [place] 4-26 Spirit 00:00: - [facility] 00 [facility] Kenalog Kenalog 2021-0 No 40mg Common (Triamcinol (Triamcinol 4-26 S pirit one) one) 00:00: - [facility] 00 [facility] Bupivicaine Bupivicaine 2021-0 No 2.5mg Common [place] 4-26 Spirit 00:00: - [facility] 00 [facility] Kenalog Kenalog 2021-0 No 40mg Common (Triamcinol (Triamcinol 4-26 S pirit one) one) 00:00: - [facility] 00 [facility] Bupivicaine Bupivicaine 2021-0 No 2.5mg Common [place] 4-26 Spirit 00:00: - [facility] 00 [facility] Kenalog Kenalog 2021-0 No 40mg Common (Triamcinol (Triamcinol 4-26 S pirit one) one) 00:00: - [facility] 00 [facility] Bupivicaine Bupivicaine 2021-0 No 2.5mg Common [place] 4-26 Spirit 00:00: - [facility] 00 [facility] Kenalog Kenalog 2021-0 No 40mg Common (Triamcinol (Triamcinol 4-26 S pirit one) one) 00:00: - [facility] 00 [facility] Bupivicaine Bupivicaine 2021-0 No 2.5mg Common [place] 4-26 Spirit 00:00: - [facility] 00 [facility] Kenalog Kenalog 2021-0 No 40mg Common (Triamcinol (Triamcinol 4-26 S pirit one) one) 00:00: - [facility] 00 [facility] Bupivicaine Bupivicaine 2021-0 No 2.5mg Common [place] 4-26 Spirit 00:00: - [facility] 00 [facility] Kenalog Kenalog 2021-0 No 40mg Common (Triamcinol (Triamcinol 4-26 S pirit one) one) 00:00: - [facility] 00 [facility] Bupivicaine Bupivicaine 2021-0 No 2.5mg Common [place] 4-26 Spirit 00:00: - [facility] 00 [facility] Kenalog Kenalog 2021-0 No 40mg Common (Triamcinol (Triamcinol 4-26 S pirit one) one) 00:00: - [facility] 00 [facility] Bupivicaine Bupivicaine 2021-0 No 2.5mg Common [place] 4-26 Spirit 00:00: - [facility] 00 [facility] Kenalog Kenalog 2021-0 No 40mg Common (Triamcinol (Triamcinol 4-26 S pirit one) one) 00:00: - [facility] 00 [facility] Bupivicaine Bupivicaine 2021-0 No 2.5mg Common [place] 4-26 Spirit 00:00: - [facility] 00 [facility] Kenalog Kenalog 2021-0 No 40mg Common (Triamcinol (Triamcinol 4-26 S pirit one) one) 00:00: - [facility] 00 [facility] Bupivicaine Bupivicaine 2-0 No 2.5mg Common [place] 4-26 Spirit 00:00: - [facility] 00 [facility] Kenalog Kenalog 2-0 No 40mg Common (Triamcinol (Triamcinol 4-26 S pirit one) one) 00:00: - [facility] methylPREDN methylPREDN 2022-0 No methylPRED ISolone 4 [...] Common 2-16 Spirit 00:00: - [facility] 00 [facility] Synvisc Synvisc 2020- No 16mg Common 2-16 Spirit 00:00: - [facility] Synvisc Synvisc 2020- No 16mg Common 2-16 Spirit 00:00: - [facility] 00 [facility] Synvisc Synvisc 2020-1 No 16mg Common 2-16 Spirit 00:00: - [facility] Synvisc Synvisc 2020- No 16mg Common 2-16 Spirit 00:00: - [facility] Synvisc Synvisc 2020-1 No 16mg Common 2-16 Spirit 00:00: - [facility] 00 [facility] Synvisc Synvisc 2020-1 No 16mg Common 2-16 Spirit 00:00: - [facility] Synvisc Synvisc 2020-1 No 16mg Common 2-16 Spirit 00:00: - [facility] Synvisc Synvisc 2020-1 No 16mg Common 2-16 Spirit 00:00: - [facility] Synvisc Synvisc 2020-1 No 16mg Common 2-16 Spirit 00:00: - [facility] Synvisc Synvisc 2020-1 No 16mg Common 2-16 Spirit 00:00: - [facility] Synvisc Synvisc 2020- No 16mg Common 2-16 Spirit 00:00: - [facility] Synvisc Synvisc 2020- No 16mg Common 2-16 Spirit 00:00: - [facility] 00 [facility] Synvisc Synvisc 2020- No 16mg Common 2-16 Spirit 00:00: - [facility] Synvisc Synvisc 2020- No 16mg Common 2-16 Spirit 00:00: - [facility] Synvisc Synvisc 2020- No 16mg Common 2-16 Spirit 00:00: - [facility] Synvisc Synvisc 2020- No 16mg Common 2-16 Spirit 00:00: - [facility] Synvisc Synvisc 2020- No 16mg Common 2-16 Spirit 00:00: - [facility] Synvisc Synvisc 2020- No 16mg Common 2-16 Spirit 00:00: - [facility] Synvisc Synvisc 2020- No 16mg Common 2-16 Spirit 00:00: - [facility] Synvisc Synvisc 2020- No 16mg Common 2-16 Spirit 00:00: - [facility] Synvisc Synvisc 2020- No 16mg Common 2-16 Spirit 00:00: - [facility] 00 [facility] Synvisc Synvisc 2020- No 16mg Common 2-16 Spirit 00:00: - [facility] Synvisc Synvisc 2020- No 16mg Common 2-16 Spirit 00:00: - [facility] Synvisc Synvisc 2020- No 16mg Common 2-09 Spirit 00:00: - [facility] 00 [facility] Synvisc Synvisc 2020- No 16mg Common 2-09 Spirit 00:00: - [facility] 00 [facility] Synvisc Synvisc 2020- No 16mg Common 2-09 Spirit 00:00: - [facility] 00 [facility] Synvisc Synvisc 2020- No 16mg Common 2-09 Spirit 00:00: - [facility] 00 [facility] Synvisc Synvisc 2020- No 16mg Common 2- Spirit 00:00: - [facility] 00 [facility] Synvisc Synvisc 2020- No 16mg Common 2- Spirit 00:00: - [facility] Synvisc Synvisc 2020- No 16mg Common 2- Spirit 00:00: - [facility] 00 [facility] Synvisc Synvisc 2020- No 16mg Common 2- Spirit 00:00: - [facility] Synvisc Synvisc 2020- No 16mg Common 2 Spirit 00:00: - [facility] Synvisc Synvisc 2020- No 16mg Common 2- Spirit 00:00: - [facility] Synvisc Synvisc 2020- No 16mg Common 2 Spirit 00:00: - [facility] Synvisc Synvisc 2020- No 16mg Common 2- Spirit 00:00: - [facility] Synvisc Synvisc 2020- No 16mg Common 2- Spirit 00:00: - [facility] Synvisc Synvisc 2020- No 16mg Common 2- Spirit 00:00: - [facility] Synvisc Synvisc 2020- No 16mg Common 2- Spirit 00:00: - [facility] Synvisc Synvisc 2020- No 16mg Common 2- Spirit 00:00: - [facility] 00 [facility] Synvisc Synvisc 2020- No 16mg Common 2- Spirit 00:00: - [facility] 00 [facility] Synvisc Synvisc 2020- No 16mg Common 2- Spirit 00:00: - [facility] 00 [facility] Synvisc Synvisc 2020- No 16mg Common 2- Spirit 00:00: - [facility] 00 [facility] Synvisc Synvisc 2020- No 16mg Common 2- Spirit 00:00: - [facility] Synvisc Synvisc 2020- No 16mg Common 2-09 Spirit 00:00: - [facility] Synvisc Synvisc 2020-06 No 16mg Common 2- Spirit 00:00: - [facility] Synvisc Synvisc 2020-06 No 16mg Common 2- Spirit 00:00: - [facility] Synvisc Synvisc 2020-06 No 16mg Common 2- Spirit 00:00: - [facility] Synvisc Synvisc 2020-06 No 16mg Common 2- Spirit 00:00: - [facility] Synvisc Synvisc 2020-06 No 16mg Common 2- Spirit 00:00: - [facility] Synvisc Synvisc 2020-06 No 16mg Common 2- Spirit 00:00: - [facility] Synvisc Synvisc 2020-06 No 16mg Common 2- Spirit 00:00: - [facility] Synvisc Synvisc 2020-06 No 16mg Common 2- Spirit 00:00: - [facility] Synvisc Synvisc 2020-06 No 16mg Common 2- Spirit 00:00: - [facility] Synvisc Synvisc 2020-06 No 16mg Common 2- Spirit 00:00: - [facility] Synvisc Synvisc 2020-06 No 16mg Common 2- Spirit 00:00: - [facility] Synvisc Synvisc 2020-06 No 16mg Common 2- Spirit 00:00: - [facility] Synvisc Synvisc 2020-06 No 16mg Common 2-02 Spirit 00:00: - [facility] Synvisc Synvisc 2020-06 No 16mg Common 2- Spirit 00:00: - [facility] Synvisc Synvisc 2020-06 No 16mg Common 2-02 Spirit 00:00: - [facility] 00 [facility] Synvisc Synvisc 2020-06 No 16mg Common 2- Spirit 00:00: - [facility] 00 [facility] Synvisc Synvisc 2020-06 No 16mg Common 2-02 Spirit 00:00: - [facility] Synvisc Synvisc 2020- No 16mg Common 2- Spirit 00:00: - [facility] Synvisc Synvisc 2020- No 16mg Common 2- Spirit 00:00: - [facility] 00 [facility] Synvisc Synvisc 2020- No 16mg Common 2-02 Spirit 00:00: - [facility] 00 [facility] Synvisc Synvisc 2020- No 16mg Common 2- Spirit 00:00: - [facility] Synvisc Synvisc 2020- No 16mg Common 2- Spirit 00:00: - [facility] 00 [facility] Synvisc Synvisc 2020- No 16mg Common 2- Spirit 00:00: - [facility] Synvisc Synvisc 2020- No 16mg Common 2- Spirit 00:00: - [facility] 00 [facility] Synvisc Synvisc 2020- No 16mg Common 2- Spirit 00:00: - [facility] Synvisc Synvisc 2020- No 16mg Common 2- Spirit 00:00: - [facility] Synvisc Synvisc 2020- No 16mg Common 2- Spirit 00:00: - [facility] Xarelto 20 Xarelto 20 2020-06 No 1{table QD Xarelto 20 MG MG 0-26 t_with_ MG 00:00: food} 00 Xarelto 20 Xarelto 20 2020- No 1{table QD Xarelto 20 MG MG 0-26 t_with_ MG 00:00: food} 00 Xarelto 20 Xarelto 20 2020- No 1{table QD Xarelto 20 MG MG 0-26 t_with_ MG 00:00: food} Xarelto 20 Xarelto 20 2020- No 1{table QD Xarelto 20 MG MG 0-26 t_with_ MG 00:00: food} 00 Xarelto 20 Xarelto 20 2020- No 1{table QD MG MG 0-26 t_with_ 00:00: food} 00 Xarelto 20 Xarelto 20 [...] f 1 mg tablet 13:28: as needed. 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 [address] [place] [address] Branch dicyclomine Yes 20mg Take 20 mg Univers 20 mg 6-15 by mouth ity of tablet 13:28: daily. [address] FLUoxetine Yes 40mg Take 40 mg U nivers (PROZAC) 40 6-15 by mouth ity of mg capsule 13:28: daily. [address] OLANZapine Yes 2.5mg Take 2.5 Un raffi 2.5 mg 6-15 mg by ity of tablet 13:28: mouth 2 [place] 31 (two) Medical times Branch daily. desonide 1-0 Yes APPLY TO Unive rs 0.05 % 1-18 THE ity of cream 00:00: AFFECTED [place] 00 AREA TWICE Medical DAILY Branch SPARINGLY AND RUB GENTLY desonide 2020-0 Yes APPLY TO Unive rs 0.05 % 18 THE ity of cream 00:00: AFFECTED [place] 00 AREA TWICE Medical DAILY Branch SPARINGLY AND RUB GENTLY desonide 2020-0 Yes APPLY TO Unive rs 0.05 % 18 THE ity of cream 00:00: AFFECTED [place] 00 AREA TWICE Medical DAILY Branch SPARINGLY AND RUB GENTLY desonide 2020-0 Yes APPLY TO Unive rs 0.05 % -18 THE ity of cream 00:00: AFFECTED [place] 00 AREA TWICE Medical DAILY Branch SPARINGLY AND RUB GENTLY desonide 2020-0 Yes APPLY TO Unive rs 0.05 % 18 THE ity of cream 00:00: AFFECTED [place] 00 AREA TWICE Medical DAILY Branch SPARINGLY AND RUB GENTLY desonide 2020-0 Yes APPLY TO Unive rs 0.05 % 18 THE ity of cream 00:00: AFFECTED [place] 00 AREA TWICE Medical DAILY Branch SPARINGLY AND RUB GENTLY desonide 2020-0 Yes APPLY TO Unive rs 0.05 % 18 THE ity of cream 00:00: AFFECTED [place] 00 AREA TWICE Medical DAILY Branch SPARINGLY AND RUB GENTLY Metoprolol Metoprolol Yes [place] 1 tablet Common Tartrate Tartrate [place] with food S pirit [facility] Dicyclomine Dicyclomine Yes Nirmal TAKE 1 Common HCl HCl [place] TABLET BY Spirit MOUTH - [facility] TWICE St DAILY [facility] Premarin [facility]arin Yes [facility] Nirmal 1 tablet Common thiazide thiazide [place] in the Spir it morning - [facility] Adderall Adderall Yes [place]irm[place] 1 tablet C [facility] Lansoprazol Lansoprazol Yes Nirmal 1 capsule Common e e [place] [facility] Clonazepam Clonazepam Yes [place]irm[place] 1 tablet Common [place] [facility] Duloxetine Duloxetine Yes Nirmal TK ONE C Common HCl HCl [place] PO BID [facility] - [facility] Adderall 30 Adderall 30 No BID Adderall [...] 10 MG 10 MG [facility] Omeprazole Omeprazole No Omeprazole [...] MG 40 MG t_at_be 40 MG dtime} Immunizations Ordered Immunization Filled Immunization Date Status Commen ts Source Name Name FLUZONE HIGH DOSE FLUZONE HIGH DOSE 2022-05-20 Completed [facility] OVER 65 OVER 65 14:18:00 - [facility] FLUZONE HIGH DOSE FLUZONE HIGH DOSE 2022-05-20 Completed [facility] OVER 65 OVER 65 14:18:00 - [facility] FLUZONE HIGH DOSE FLUZONE HIGH DOSE 2022-05-20 [facility]pleted [facility] OVER 65 OVER 65 14:18:00 - [facility] FLUZONE HIGH DOSE FLUZONE HIGH DOSE 2022-05-20 Completed [facility] OVER 65 OVER 65 14:18:00 - [facility] FLUZONE HIGH DOSE FLUZONE HIGH DOSE 2022-05-20 Completed [facility] OVER 65 OVER 65 14:18:00 - [facility] Afluria Afluria 2021-03-26 [facility]pleted [facility] 09:44:00 - [facility] Afluria Afluria 2021-03-26 [facility]pleted [facility] 09:44:00 - [facility] Afluria Afluria 2021-03-26 [facility]pleted [facility] 09:44:00 - [facility] Afluria Afluria 2021-03-26 [facility]pleted [facility] 09:44:00 - [facility] Afluria Afluria 2021-03-26 [facility]pleted [facility] 09:44:00 - [facility] Afluria Afluria 2021-03-26 [facility]pleted [facility] 09:44:00 - [facility] Afluria Afluria 2021-03-26 [facility]pleted [facility] 09:44:[facility] - [facility] Afluria Afluria 2021-03-26 [facility]pleted [facility] 09:44:00 - [facility] Afluria Afluria 2021-03-26 [facility]pleted [facility] 09:44:00 - [facility] Afluria Afluria 2021-03-26 [facility]pleted [facility] 09:44:00 - [facility] Afluria Afluria 2021-03-26 [facility]pleted [facility] 09:44:00 - [facility] Afluria Afluria 2021-03-26 [facility]pleted [facility] 09:44:00 - [facility] Afluria Afluria 2021-03-26 [facility]pleted [facility] 09:44:00 - [facility] Afluria Afluria 2021-03-26 [facility]pleted [facility] 09:44:00 - [facility] Afluria Afluria 2021-03-26 [facility]pleted [facility] 09:44:00 - [facility] Afluria Afluria 2021-03-26 [facility]pleted [facility] 09:44:00 - [facility] Afluria Afluria 2021-03-26 [facility]pleted [facility] 09:44:00 - [facility] Afluria Afluria 2021-03-26 [facility]pleted [facility] 09:44:00 - [facility] Afluria Afluria 2021-03-26 [facility]pleted [facility] 09:44:00 - [facility] Afluria Afluria 2021-03-26 [facility]pleted [facility] 09:44:00 - [facility] Afluria Afluria 2021-03-26 [facility]pleted [facility] 09:44:00 - [facility] Afluria Afluria 2021-03-26 [facility]pleted [facility] 09:44:00 - [facility] Afluria Afluria 2021-03-26 [facility]pleted [facility] 09:44:00 - [facility] Afluria Afluria 2021-03-26 Completed [facility] 09:44:00 - [facility] Afluria Afluria 2021-03-26 [facility] 09:44:00 - [facility] Afluria Afluria 2021-03-26 [facility] 09:44:00 - [facility] Afluria Afluria 2021-03-26 [facility]pleted [facility] 09:44:00 - [facility] Afluria Afluria 2021-03-26 [facility]pleted [facility] 09:44:00 - [facility] Afluria Afluria 2021-03-26 Completed [facility] 09:44:00 - [facility] Afluria Afluria 2021-03-26 [facility] 09:44:00 - [facility] Afluria Afluria 2021-03-26 [facility] 09:44:00 - [facility] Afluria Afluria 2021-03-26 [facility]pleted [facility] 09:44:00 - [facility] Afluria Afluria 2021-03-26 [facility]pleted [facility] 09:44:00 - [facility] Afluria Afluria 2021-03-26 Completed [facility] - [facility] Afluria Afluria 2021-03-26 [facility] 09:44:00 [facility] Afluria Afluria 2021-03-26 [facility] 09:44:00 [facility] Afluria Afluria 2021-03-26 [facility]pleted [facility] 09:44:00 [facility] Pneumovax (PPSV23) Pneumovax (PPSV23) 2020-03-20 Completed [facility] 11:22:00 [facility] Pneumovax (PPSV23) Pneumovax (PPSV23) 2020-03-20 [facility]pleted [facility] 11:22:00 [facility] Pneumovax (PPSV23) Pneumovax (PPSV23) 2020-03-20 [facility]pleted [facility] 11:22:00 [facility] Pneumovax (PPSV23) Pneumovax (PPSV23) 2020-03-20 [facility]pleted [facility] 11:22:00 [facility] Pneumovax (PPSV23) Pneumovax (PPSV23) 2020-03-20 [facility]pleted [facility] 11:22:00 [facility] Pneumovax (PPSV23) Pneumovax (PPSV23) 2020-03-20 [facility]pleted [facility] 11:22:00 [facility] Pneumovax (PPSV23) Pneumovax (PPSV23) 2020-03-20 [facility]pleted [facility] 11:22:00 [facility] Pneumovax (PPSV23) Pneumovax (PPSV23) 2020-03-20 [facility]pleted [facility] 11:22:00 [facility] Pneumovax (PPSV23) Pneumovax (PPSV23) 2020-03-20 Completed [facility] 11:22:00 [facility] Pneumovax (PPSV23) Pneumovax (PPSV23) 2020-03-20 Completed [facility] 11:22:00 [facility] Pneumovax (PPSV23) Pneumovax (PPSV23) 2020-03-20 Completed [facility] 11:22:00 [facility] Pneumovax (PPSV23) Pneumovax (PPSV23) 2020-03-20 Completed [facility] 11:22:00 [facility] Pneumovax (PPSV23) Pneumovax (PPSV23) 2020-03-20 Completed [facility] 11:22: [facility] Pneumovax (PPSV23) Pneumovax (PPSV23) 2020-03-20 Completed [facility] 11:22: [facility] Pneumovax (PPSV23) Pneumovax (PPSV23) 2020-03-20 Completed [facility] 11:22: [facility] Pneumovax (PPSV23) Pneumovax (PPSV23) 2020-03-20 Completed [facility] 11:: [facility] Pneumovax (PPSV23) Pneumovax (PPSV23) 2020-03-20 Completed [facility] 11:22: [facility] Pneumovax (PPSV23) Pneumovax (PPSV23) 2020-03-20 Completed [facility] 11:: [facility] Pneumovax (PPSV23) Pneumovax (PPSV23) 2020-03-20 Completed [facility] 11:: [facility] Pneumovax (PPSV23) Pneumovax (PPSV23) 2020-03-20 Completed [facility] 11:22: [facility] Pneumovax (PPSV23) Pneumovax (PPSV23) 2020-03-20 Completed [facility] 11:22: [facility] Pneumovax (PPSV23) Pneumovax (PPSV23) 2020-03-20 Completed [facility] 11:22: [facility] Pneumovax (PPSV23) Pneumovax (PPSV23) 2020-03-20 Completed [facility] 11:: [facility] Pneumovax (PPSV23) Pneumovax (PPSV23) 2020-03-20 Completed [facility] 11:22: [facility] Pneumovax (PPSV23) Pneumovax (PPSV23) 2020-03-20 [facility]pleted [facility] 11:22: [facility] Pneumovax (PPSV23) Pneumovax (PPSV23) 2020-03-20 [facility]pleted [facility] 11:22:00 [facility] Pneumovax (PPSV23) Pneumovax (PPSV23) 2020-03-20 [facility]pleted [facility] 11:22:00 [facility] Pneumovax (PPSV23) Pneumovax (PPSV23) 2020-03-20 [facility]pleted [facility] 11:: [facility] Pneumovax (PPSV23) Pneumovax (PPSV23) 2020-03-20 Completed [facility] 11:: [facility] Pneumovax (PPSV23) Pneumovax (PPSV23) 2020-03-20 Completed [facility] 11:: [facility] Pneumovax (PPSV23) Pneumovax (PPSV23) 2020-03-20 Completed [facility] 11:: [facility] Pneumovax (PPSV23) Pneumovax (PPSV23) 2020-03-20 [facility] 11:: [facility] Pneumovax (PPSV23) Pneumovax (PPSV23) 2020-03-20 Completed [facility] 11:: [facility] Pneumovax (PPSV23) Pneumovax (PPSV23) 2020-03-20 Completed [facility] 11:: [facility] Pneumovax (PPSV23) Pneumovax (PPSV23) 2020-03-20 Completed [facility] 11:: [facility] Pneumovax (PPSV23) Pneumovax (PPSV23) 2020-03-20 Completed [facility] 11:: [facility] Pneumovax (PPSV23) Pneumovax (PPSV23) 2020-03-20 Com[facility] 11::00 [facility] Afluria single dose Afluria single dose 2020-03-20 [facility] 11::00 [facility] Afluria single dose Afluria single dose 2020-03-20 [facility] 11:: [facility] Afluria single dose Afluria single dose 2020-03-20 Completed [facility] 11:: [facility] Afluria single dose Afluria single dose 2020-03-20 Completed [facility] 11:: [facility] Afluria single dose Afluria single dose 2020-03-20 Completed [facility] 11:: [facility] Afluria single dose Afluria single dose 2020-03-20 Completed [facility] 11:: [facility] Afluria single dose Afluria single dose 2020-03-20 Completed [facility] 11:: [facility] Afluria single dose Afluria single dose 2020-03-20 Completed [facility] 11:: [facility] Afluria single dose Afluria single dose 2020-03-20 Completed [facility] 11:: [facility] Afluria single dose Afluria single dose 2020-03-20 Completed [facility] 11:: [facility] Afluria single dose Afluria single dose 2020-03-20 Completed [facility] 11:: [facility] Afluria single dose Afluria single dose 2020-03-20 Completed [facility] 11:: [facility] Afluria single dose Afluria single dose 2020-03-20 Completed [facility] 11:: [facility] Afluria single dose Afluria single dose 2020-03-20 Completed [facility] 11:: [facility] Afluria single dose Afluria single dose 2020-03-20 Completed [facility] 11:: [facility] Afluria single dose Afluria single dose 2020-03-20 Completed [facility] 11:: [facility] Afluria single dose Afluria single dose 2020-03-20 Completed [facility] 11:: [facility] Afluria single dose Afluria single dose 2020-03-20 Completed [facility] 11:: [facility] Afluria single dose Afluria single dose 2020-03-20 Completed [facility] 11:: [facility] Afluria single dose Afluria single dose 2020-03-20 Completed [facility] 11:: [facility] Afluria single dose Afluria single dose 2020-03-20 Completed [facility] 11:: [facility] Afluria single dose Afluria single dose 2020-03-20 Completed [facility] 11:: [facility] Afluria single dose Afluria single dose 2020-03-20 Completed [facility] 11:: [facility] Afluria single dose Afluria single dose 2020-03-20 Completed [facility] 11:: [facility] Afluria single dose Afluria single dose 2020-03-20 Completed [facility] 11:: [facility] Afluria single dose Afluria single dose 2020-03-20 Completed [facility] 11:: [facility] Afluria single dose Afluria single dose 2020-03-20 Completed [facility] 11:: [facility] Afluria single dose Afluria single dose 2020-03-20 Completed [facility] 11:: [facility] Afluria single dose Afluria single dose 2020-03-20 Completed [facility] 11:: [facility] Afluria single dose Afluria single dose 2020-03-20 Completed [facility] 11:: [facility] Afluria single dose Afluria single dose 2020-03-20 Completed [facility] 11:: [facility] Afluria single dose Afluria single dose 2020-03-20 Completed [facility] 11:: [facility] Afluria single dose Afluria single dose 2020-03-20 Completed [facility] 11:: [facility] Afluria single dose Afluria single dose 2020-03-20 Completed [facility] 11:: [facility] Afluria single dose Afluria single dose 2020-03-20 Completed [facility] 11:: [facility] Afluria single dose Afluria single dose 2020-03-20 Completed [facility] 11:: [facility] Afluria single dose Afluria single dose 2020-03-20 Completed [facility] 11:: [facility] Vital Signs Vital Name Observation Time Observation Value Comments Source Systolic blood 2022-06-16 17:38:00 113 mm[Hg] [facility] pressure [facility] Diastolic blood 2022-06-16 17:38:00 62 mm[Hg] Unive [facility] of pressure [facility] Heart rate 2022-06-16 17:38:00 70 /min [facility] Body temperature 2022-06-16 17:38:00 36.67 [place] [facility] Respiratory rate 2022-06-16 17:38:00 16 /min [facility] Oxygen saturation in 2022-06-16 17:38:00 95 /min [facility] Arterial blood by [facility] Pulse oximetry Branch Body height 2022-06-15 19:14:00 152.4 cm [facility] Body weight 2022-06-15 19:14:00 55.792 kg [facility] BMI 2022-06-15 19:14:00 24.02 kg/m2 [facility] Systolic blood 2022-06-15 13:41:00 127 mm[Hg] Univer [facility]ity of pressure [facility] Diastolic blood 2022-06-15 13:41:00 62 mm[Hg] Unive rsity of pressure [facility] Heart rate 2022-06-15 13:41:00 71 /min [facility] Body temperature 2022-06-15 13:41:00 36.72 [place] [facility] Respiratory rate 2022-06-15 13:41:00 18 /min [facility] Oxygen saturation in 2022-06-15 13:41:00 93 /min [facility] Arterial blood by [facility] Pulse oximetry [facility] Body weight 2022-06-14 06:00:00 56 kg [facility] BMI 2022-06-14 06:00:00 24.02 kg/m2 [facility] height 2022-05-31 10:30:00 60 [in_i] [facility] weight 2022-05-31 10:30:00 143 [lb_av] [facility] temperature 2022-05-31 10:30:00 97.2 [degF] [facility] bmi 2022-05-31 10:30:00 27.92 kg/m2 [facility] blood pressure 2022-05-31 10:30:00 134 mm[Hg] [facility] - systolic [facility] blood pressure 2022-05-31 10:30:00 62 mm[Hg] [facility] - diastolic [facility] height 2022-05-20 13:50:00 60 [in_i] [facility] weight 2022-05-20 13:50:00 144.2 [lb_av] [facility] temperature 2022-05-20 13:50:00 97.6 [degF] [facility] bmi 2022-05-20 13:50:00 28.16 kg/m2 [facility] oximetry 2022-05-20 13:50:00 97 % [facility] respiratory rate 2022-05-20 13:50:00 17 /min Comm on [facility] blood pressure 2022-05-20 13:50:00 131 mm[Hg] [facility] - systolic [facility] blood pressure 2022-05-20 13:50:00 60 mm[Hg] [facility] - diastolic [facility] height 2022-03-24 10:10:00 60 [in_i] [facility] weight 2022-03-24 10:10:00 141.8 [lb_av] [facility] temperature 2022-03-24 10:10:00 97.3 [degF] [facility] bmi 2022-03-24 10:10:00 27.69 kg/m2 [facility] oximetry 2022-03-24 10:10:00 98 % [facility] respiratory rate 2022-03-24 10:10:00 18 /min Comm on [facility] blood pressure 2022-03-24 10:10:00 132 mm[Hg] [facility] - systolic [facility] blood pressure 2022-03-24 10:10:00 72 mm[Hg] [facility] - [facility] height 2022-01-05 13:30:00 60 [in_i] [facility] weight 2022-01-05 13:30:00 139 [lb_av] [facility] bmi 2022-01-05 13:30:00 27.14 kg/m2 [facility] blood pressure 2022-01-05 13:30:00 112 mm[Hg] [facility] - systolic [facility] blood pressure 2022-01-05 13:30:00 78 mm[Hg] [facility] - diastolic [facility] height 2021-12-02 09:50:00 60 [in_i] [facility] weight 2021-12-02 09:50:00 131.6 [lb_av] [facility] temperature 2021-12-02 09:50:00 97.3 [degF] [facility] bmi 2021-12-02 09:50:00 25.7 kg/m2 [facility] oximetry 2021-12-02 09:50:00 99 % [facility] respiratory rate 2021-12-02 09:50:00 17 /min Comm on [facility] blood pressure 2021-12-02 09:50:00 119 mm[Hg] [facility] - systolic [facility] blood pressure 2021-12-02 09:50:00 58 mm[Hg] [facility] - [facility] height 2021-10-06 15:00:00 60 [in_i] [facility] weight 2021-10-06 15:00:00 132.4 [lb_av] [facility] bmi 2021-10-06 15:00:00 25.85 kg/m2 [facility] blood pressure 2021-10-06 15:00:00 104 mm[Hg] [facility] - systolic [facility] blood pressure 2021-10-06 15:00:00 58 mm[Hg] [facility] - [facility] height 2021-09-07 14:30:00 60 [in_i] [facility] weight 2021-09-07 14:30:00 132 [lb_av] [facility] bmi 2021-09-07 14:30:00 25.78 kg/m2 [facility] blood pressure 2021-09-07 14:30:00 134 mm[Hg] [facility] - systolic [facility] blood pressure 2021-09-07 14:30:00 84 mm[Hg] [facility] - diastolic [facility] height 2021-07-30 14:30:00 60 [in_i] [facility] weight 2021-07-30 14:30:00 132 [lb_av] [facility] temperature 2021-07-30 14:30:00 98.0 [degF] [facility] bmi 2021-07-30 14:30:00 25.78 kg/m2 [facility] blood pressure 2021-07-30 14:30:00 112 mm[Hg] [facility] - [facility] blood pressure 2021-07-30 14:30:00 72 mm[Hg] [facility] - diastolic [facility] height 2021-07-06 09:20:00 60 [in_i] [facility] weight 2021-07-06 09:20:00 131.4 [lb_av] [facility] temperature 2021-07-06 09:20:00 97.9 [degF] [facility] bmi 2021-07-06 09:20:00 25.66 kg/m2 [facility] oximetry 2021-07-06 09:20:00 99 % [facility] S [facility]irit [facility] respiratory rate 2021-07-06 09:20:00 18 /min [facility] blood pressure 2021-07-06 09:20:00 121 mm[Hg] [facility] - systolic [facility] blood pressure 2021-07-06 09:20:00 57 mm[Hg] [facility] - diastolic [facility] height 2021-07-06 08:30:00 60 [in_i] [facility] weight 2021-07-06 08:30:00 131.4 [lb_av] [facility] temperature 2021-07-06 08:30:00 97.9 [degF] [facility] bmi 2021-07-06 08:30:00 25.66 kg/m2 [facility] oximetry 2021-07-06 08:30:00 99 % [facility] blood pressure 2021-07-06 08:30:00 121 mm[Hg] [facility] blood pressure 2021-07-06 08:30:00 57 mm[Hg] [facility] - [facility] height 2021-05-28 14:45:00 60 [in_i] [facility] weight 2021-05-28 14:45:00 132 [lb_av] [facility] temperature 2021-05-28 14:45:00 97.8 [degF] [facility] bmi 2021-05-28 14:45:00 25.78 kg/m2 [facility] blood pressure 2021-05-28 14:45:00 124 mm[Hg] [facility] - [facility] blood pressure 2021-05-28 14:45:00 80 mm[Hg] [facility] - [facility] height 2021-05-21 14:30:00 60 [in_i] [facility] weight 2021-05-21 14:30:00 132 [lb_av] [facility] temperature 2021-05-21 14:30:00 97.6 [degF] [facility] bmi 2021-05-21 14:30:00 25.78 kg/m2 [facility] blood pressure 2021-05-21 14:30:00 112 mm[Hg] [facility] - [facility] blood pressure 2021-05-21 14:30:00 74 mm[Hg] [facility] - [facility] height 2021-04-07 09:30:00 60 [in_i] [facility] weight 2021-04-07 09:30:00 132.6 [lb_av] [facility] temperature 2021-04-07 09:30:00 97.7 [degF] [facility] bmi 2021-04-07 09:30:00 25.89 kg/m2 [facility] S [facility] oximetry 2021-04-07 09:30:00 97 % [facility] respiratory rate 2021-04-07 09:30:00 16 /min [facility] on [facility] blood pressure 2021-04-07 09:30:00 121 mm[Hg] [facility] - systolic [facility] blood pressure 2021-04-07 09:30:00 56 mm[Hg] [facility] - diastolic [facility] height 2021-03-26 09:50:00 60 [in_i] [facility] weight 2021-03-26 09:50:00 131.4 [lb_av] [facility] temperature 2021-03-26 09:50:00 97.5 [degF] [facility] bmi 2021-03-26 09:50:00 25.66 kg/m2 [facility] oximetry 2021-03-26 09:50:00 98 % [facility] respiratory rate 2021-03-26 09:50:00 17 /min Comm on [facility] blood pressure 2021-03-26 09:50:00 113 mm[Hg] [facility] blood pressure 2021-03-26 09:50:00 56 mm[Hg] [facility] - [facility] Systolic blood 2022-06-15 17:07:00 109 mm[Hg] Univer sity of pressure [facility] Diastolic blood 2022-06-15 17:07:00 64 mm[Hg] Unive rsity of pressure [facility] Heart rate 2022-06-15 17:07:00 69 /min [facility] Body temperature 2022-06-15 17:07:00 36.5 [place] [facility] 2022-06-15 17:07:00 17 /min [facility] Oxygen saturation in 2022-06-15 17:07:00 93 /min [facility] Arterial blood by [facility] Pulse oximetry Branch Body weight 2022-06-14 06:00:00 56 kg [facility] BMI 2022-06-14 06:00:00 24.11 kg/m2 [facility] Body height 2020-11-25 14:44:00 152.4 cm [facility] Procedures Procedure Date / Time Performing Source Performed Clinician EXTERNAL PROVIDER RECORDS 2022-06-23 Doctor Jessica [facility] of 06:01:00 Unassigned, No [facility] CBC WITHOUT DIFF 2022-06-16 Lavon Monge [facility] of 11:54:00 [facility] CBC WITHOUT DIFF 2022-06-16 Lavon Monge [facility] of 11:54:00 [facility] MAGNESIUM 2022-06-15 [facility] 21:[facility]00 [facility] BASIC METABOLIC PANEL (NA, K, CL, 2022-06-15 Monster [employer]ge [employer] of CO2, GLUCOSE, BUN, CREATININE, CA) 21:55:00 [facility] CBC WITH DIFF 2022-06-15 Lavon Monge [facility] of 21:55:00 [facility] MAGNESIUM 2022-06-15 [facility] 21:55[facility]00 [facility] BASIC METABOLIC PANEL (NA, K, CL, 2022-06-15 Monster Monge [facility] CO2, GLUCOSE, BUN, CREATININE, CA) 21:55:00 [facility] CBC WITH DIFF 2022-06-15 Lavon Monge [facility] of 21:55:00 [facility] ESOPHAGOGASTRODUODENOSCOPY 2022-06-15 Alexandru [place] [facility] of 19:37:00 [facility] ESOPHAGOGASTRODUODENOSCOPY 2022-06-15 Alexandru [place] [facility] 19:37:00 [facility] EGD (ENDO) 2022-06-[facility] 18:33:01 [facility] EGD (ENDO) 2022-06-15 [facility] of 18:33:01 [facility] CBC WITHOUT DIFF 2022-06-14 Lavon Monge [facility] of 22:38:00 [facility] TROPONIN I 2022-06-14 [facility] 22:38[facility]00 [facility] TROPONIN I 2022-06-14 [facility] 22:38:00 [facility] CBC WITHOUT DIFF 2022-06-14 [facility] 22:38:00 [facility] TROPONIN I 2022-06-14 Saleem [facility] of 22:38:00 [facility] CBC WITHOUT DIFF 2022-06-14 [facility] 22:38:00 [facility] HB ECG ROUTINE & RHYTHM STRIP 2022-06-14 Kristan Monroe [facility] of 16:53:14 [facility] HB ECG ROUTINE & RHYTHM STRIP 2022-06-14 Kristan Monroe [facility] of 16:53:14 [facility] HB ECG ROUTINE & RHYTHM STRIP 2022-06-14 Kristan Monroe [facility] of 16:53:14 [facility] HB ECG ROUTINE & RHYTHM STRIP 2022-06-14 Nate Cheney [facility] of 16:51:07 [facility] HB ECG ROUTINE & RHYTHM STRIP 2022-06-14 Nate Cheney Un i[facility]ity of 16:51:07 [facility] HB ECG ROUTINE & RHYTHM STRIP 2022-06-14 Nate Cheney Un iversity of 16:51:07 [facility] URINALYSIS 2022-06-14 Nate Cheney [employer] of 09:50:00 [facility] URINE CULTURE 2022-06-14 [place], [facility] [place] of 09:50:00 [facility] URINALYSIS 2022-06-14 Noin, [facility] [place], [facility] of 09:50:00 [facility] URINE CULTURE 2022-06-14 [place], [facility] [place], [facility] of 09:50:00 [facility] URINALYSIS 2022-06-14 [place], [facility] [place], [facility] of 09:50:00 [facility] URINE CULTURE 2022-06-14 [place], [facility] [place], [facility] of 09:50:00 [facility] XR CHEST 1 VW 2022-06-14 [place], [facility] [place], [facility] of 09:37:00 [facility] XR CHEST 1 VW 2022-06-14 [place], [facility] [place], Operated By [facility] of 09:37:00 [facility] XR CHEST 1 VW 2022-06-14 Logardawna, [facility], [place], [facility]ated By [facility] of 09:37:00 [facility] CBC WITH DIFF 2022-06-14 Noni, [facility], [place], [facility]ated By [facility] of 07:13:00 [facility] COMP. METABOLIC PANEL (26442) 2022-06-14 Nate Cheney iversity of 07:13:00 [facility] THYROID STIMULATING HORMONE 2022-06-14 Nate Cheney ersity of 07:13:00 [facility] FREE T4 2022-06-14 Noni [facility], [place], [facility]ated By [facility] of 07:13:00 [facility] MAGNESIUM 2022-06-14 Noni [facility] [place], [facility]ated By [facility] of 07:13:00 [facility] PHOSPHORUS 2022-06-14 Noni [facility], [place], [facility]ated By [facility] of 07:13:00 [facility] GLYCOSYLATED HEMOGLOBIN (A1C) 2022-06-14 Nate Cheney iversity of 07:13:00 [facility] LIPID PANEL (53145)(TOTAL 2022-06-14 Nate Cheney sitlisseth of CHOLESTEROL, TRIGLYCERIDES, HDL) 07:13:00 [facility] PROTHROMBIN TIME / INR 2022-06-14 Nate Cheney [facility] y of 07:13:00 [facility] N-TERMINAL PRO-BNP 2022-06-14 Noni [facility], [place], [facility] By [facility] of 07:13:00 [facility] TROPONIN I 2022-06-14 Noni [facility], [place], [facility] By [facility] of 07:13:00 [facility] PROCALCITONIN 2022-06-14 [facility] [place], [facility] of 07:13:00 [facility] COVID-19 (ID NOW RAPID TESTING) 2022-06-14 Ana Mardawna, [facility], [place], [facility] of 07:13:00 [facility] GALV ONLY - INFLUENZA A B RSV PCR 2022-06-14 [facility], [facility], [place], [facility] By [facility] of 07:13:00 [facility] IRON PANEL 2022-06-14 Logardawna, [facility] [place], [facility] By [facility] of 07:13:00 [facility] FERRITIN SERUM 2022-06-14 Logardawna, [facility], [place], [facility] By [facility] of 07:13:00 [facility] VITAMIN B12, LEVEL 2022-06-14 [facility], [facility], [place], [facility]ated By [facility] of 07:13:00 [facility] FOLATE 2022-06-14 Logardawna, [facility], [place], [facility]ated By [facility] of 07:13:00 [facility] LAB ONLY COVID INTERPRETATION 2022-06-14 Noni [facility] Marvin iversity of 07:13:00 [facility] PHOSPHORUS 2022-06-14 Logardawna, [facility], [place], [facility]ated By [facility] of 07:13:00 [facility] MAGNESIUM 2022-06-14 Logardawna, [facility], [place], [facility]ated By [facility] of 07:13:00 [facility] FERRITIN SERUM 2022-06-14 Ana Mardawna, [facility], [place], [facility]ated By [facility] of 07:13:00 [facility] VITAMIN B12, LEVEL 2022-06-14 [facility], [facility], [place], [facility]ated By [facility] 07:13:00 [facility] FOLATE 2022-06-14 Ana Mardawna, [facility], [place], [facility]ated By [facility] of 07:13:00 [facility] TROPONIN I 2022-06-14 Ana Mardawna [facility], [place], [facility] 07:13:00 [facility] FREE T4 2022-06-14 Logardawna, [facility], [place], [facility]ated By [facility] of 07:13:00 [facility] THYROID STIMULATING HORMONE 2022-06-14 Ana Mardawna [facility] ersity of 07:13:00 [facility] COMP. METABOLIC PANEL (38934) 2022-06-14 Nate Cheney iversity of 07:13:00 [facility] LIPID PANEL (11717)(TOTAL 2022-06-14 [facility] Jessica alves of CHOLESTEROL, TRIGLYCERIDES, HDL) 07:13:00 [facility] IRON PANEL 2022-06-14 Nate Cheney of 07:13:00 [facility] CBC WITH DIFF 2022-06-14 Noni, [facility], [place], [facility] of 07:13:00 [facility] GLYCOSYLATED HEMOGLOBIN (A1C) 2022-06-14 Nate Cheney iversity of 07:13:00 [facility] PROTHROMBIN TIME / INR 2022-06-14 [facility] 07:13:00 [facility] GALV ONLY - INFLUENZA A B RSV PCR 2022-06-14 Ana Mardawna, [facility], [place], [facility]ated By [facility] of 07:13:00 [facility] N-TERMINAL PRO-BNP 2022-06-14 Logardawna, [facility], [place], [facility]ated By [facility] 07:13:00 [facility] PROCALCITONIN 2022-06-14 Ana Mardawna, [facility], [place], [facility]ated By [facility] of 07:13:00 [facility] COVID-19 (ID NOW RAPID TESTING) 2022-06-14 Ana Mardawna, [facility], [place], [facility] of 07:13:00 [facility] LAB ONLY COVID INTERPRETATION 2022-06-14 Saji Cheneyi Marvin iversity of 07:13:00 [facility] PHOSPHORUS 2022-06-14 Noni, [facility], [place], [facility] By [facility] of 07:13:00 [facility] MAGNESIUM 2022-06-14 Ana Mardawna, [facility], [place], [facility] of 07:13:00 [facility] FERRITIN SERUM 2022-06-14 Ana Mardawna, [facility], [place], [facility] of 07:13:00 [facility] VITAMIN B12, LEVEL 2022-06-14 Noni, [facility], [place], [facility] 07:13:00 [facility] FOLATE 2022-06-14 Logardawna, [facility], [place], [facility] 07:13:00 [facility] TROPONIN I 2022-06-14 Logardawna, [facility], [place], [facility] of 07:13:00 [facility] FREE T4 2022-06-14 Logaradwna, [facility], [place], [facility] of 07:13:00 [facility] THYROID STIMULATING HORMONE 2022-06-14 Noni [facility] ersity of 07:13:00 [facility] COMP. METABOLIC PANEL (38719) 2022-06-14 Nate Cheney iversity of 07:13:00 [facility] LIPID PANEL (63651)(TOTAL 2022-06-14 Ana Mardawna Nate Univer sity of CHOLESTEROL, TRIGLYCERIDES, HDL) 07:13:00 [facility] IRON PANEL 2022-06-14 Nate Cheney Tucker of 07:13:00 [facility] CBC WITH DIFF 2022-06-14 Nate Cheney Tucker of 07:13:00 [facility] GLYCOSYLATED HEMOGLOBIN (A1C) 2022-06-14 Nate Cheney Un iversity of 07:13:00 [facility] PROTHROMBIN TIME / INR 2022-06-14 Nate Cheney [facility] y of 07:13:00 [facility] GALV ONLY - INFLUENZA A B RSV PCR 2022-06-14 Ana MarNate toney Tucker of 07:13:00 [facility] N-TERMINAL PRO-BNP 2022-06-14 Nate Cheney Tucker of 07:13:00 [facility] PROCALCITONIN 2022-06-14 Ana MarNate toney Tucker of 07:13:00 [facility] COVID-19 (ID NOW RAPID TESTING) 2022-06-14 Nate Cheney Tucker of 07:13:00 [facility] LAB ONLY COVID INTERPRETATION 2022-06-14 Nate Cheney iversity of 07:13:00 [facility] Encounters Start End Encounter Admission Attending Care Care Encounter Source Date/Time Date/Time Type Type Clinicians Facility Department ID 2022-06-24 Outpatient [facility] [id number] [place] 08:59:26 [id number] [facility] 2022-06-03 Outpatient [facility] [id number] NE 16:40:39 [id number] [facility] 2022-05-31 Outpatient Hancock, STLMLC STLC [id number] Common 11:39:01 [facility] 2022-05-19 Outpatient [place], STLMLC STLC [id number] Common 14:43:00 [facility] 2022-04-23 Outpatient [place], STLMLC STLC [id number] Common 11:17:01 [facility] 2022-04-17 Outpatient [place], STLMLC STLC [id number] Common 11:08:00 [facility] 2022-01-06 Outpatient [place], STLMLC STLC [id number] Common 13:28:[address] [facility] 2021-11-02 Outpatient [place], STLMLC STLC [id number] Common 09:01:[address] [facility] 2021-09-21 Outpatient [place], STLMLC STLC [id number] Common 13:05:[address] [facility] 2021-07-29 Outpatient [place], STLMLC STLC [id number] Common 10:19:[address] [facility] 2021-07-08 Outpatient [place], STLMLC STLC [id number] Common 14:39:[address] [facility] 2021-07-08 Outpatient [place], STLMLC STLC [id number] Common 14:11:57 Nirmal [id number] [facility] 2021-07-08 Outpatient [place], STLMLC STLC [id number] Common 14:09:54 Nirmal [address] [facility] 2021-07-08 Outpatient [place], STLMLC STLC [id number] Common 12:46:03 Nirmal [address] [facility] 2021-07-08 Outpatient [place], STLMLC STLC [id number] Common 12:36:17 Nirmal [address] [facility] 2021-07-08 Outpatient [place], STLMLC STLC [id number] Common 12:17:58 [place]irmal [address] [facility] 2021-07-08 Outpatient [place], STLMLC STLC [id number] Common 11:28:21 Nirmal [address] [facility] 2021-07-08 Outpatient [place], STLMLC STLC [id number] Common 11:18:20 [place] [address] [facility] 2021-07-08 Outpatient [place], STLMLC STLC [id number] Common 11:13:47 [place] [address] [facility] 2021-07-08 Outpatient [place], [facility] [id number] Common 11:09:58 Nirmal [address] [facility] 2021-07-08 Outpatient CAILIN Hancock [facility] [id number] Common 11:08:14 N[place] [address] [facility] 2021-04-13 Outpatient Azam MARIA ALEJANDRA [facility] GI [id number] Univers 11:39:26 [facility] 2021-04-12 Outpatient R MARIA ALEJANDRA, [facility] [id number] Univers 23:35:55 [facility] 2021-04-11 Outpatient Az[facility] [id number] Univers 21:31:44 [facility] 2022-06-23 2022-06-23 Orders Doctor RAY 1.2.840.114 [id number] Univers 00:00:00 00:00:00 Only Unassigned, SUSHILA 350.1.13.10 ity of [place] [facility] 4.2.7.2.686 [place] [id number] [facility] [address] 2022-06-22 2022-06-22 Outpatient ROSA, [facility] [id number] [place] 11:00:00 11:00:00 [facility] 2022-06-17 2022-06-17 Transition LALITA Mayer 1.2.840.114 [id number] Univers 00:00:00 00:00:00 of Care Dino SHELBY 350.1.13.10 ity [facility] 4.2.7.2.686 [place] [id number] [facility] [address] 2022-06-13 2022-06-16 Inpatient U TIFFANI DARBY [facility] JAYE [id number] Univers 23:46:00 15:23:00 TIFFANI DARBY i [facility] 2022-06-13 2022-06-16 [facility] CARA Darby 1.2.840.114 [id number] Univers 23:46:00 15:23:00 Encounter Tiffani CONTI 350.1.13.10 ity of HOSPITAL 4.2.7.2.686 [place] [id number] [facility] sondra 093 Branch 2022-06-15 2022-06-15 Anesthesia [place], 1.2.840.9 [id number] Univers 12:52:00 12:52:00 Event Sharif 88896.1.1 ity of 3.104.2.7 [place] .3.578708 Medica l .8 Branch 2022-06-15 2022-06-15 Surgery Geovanna, [facility] 1.2.912.135 [id number] Univers 09:23:00 09:59:00 Alexandru Garcia ICAL 350.1.13.10 ity of SCIENCES 4.2.7.2.686 [place] as BLDG [id number] [facility] sondra 020 Branch 2022-06-14 2022-06-14 Anesthesia Mabel, 1.2.840.5 [id number] Univers 12:05:59 12:05:59 Event Kristan Lo 25754.1.1 ity of 3.104.2.7 [place] .3.174040 Medica l .8 Branch 2022-06-14 2022-06-14 Travel 1.2.840.1 1.2.439.331 [id number] Univers 00:00:00 00:00:00 94478.1.1 350.1.13.10 ity of 3.104.2.7 4.[place].7.3.698 [place] .3.686660 084.8 Medica l .8 Branch 2022-06-02 2022-06-02 (TEL) STLMLC STLMLC [id number] Co mmon 00:00:00 00:00:[address] [facility] 2022-06-01 2022-06-01 (TEL) STLMLC STLMLC [id number] Co mmon 00:00:00 00:00:[address] [facility] 2022-05-31 2022-05-31 OFFICE STLMLC STLMLC [id number] Co mmon 00:00:00 00:00:00 VISIT EST Spir it PT LEVEL 3 - [facility] 2022-05-25 2022-05-25 (TEL) STLMLC STLMLC [id number] Co mmon 00:00:00 00:00:[address] [facility] 2022-05-20 2022-05-20 OFFICE STLMLC STLMLC [id number] Co mmon 00:00:00 00:00:00 VISIT [facility] LEVEL 4 [facility] 2022-04-23 2022-04-23 (TEL) STLMLC STLMLC [id number] Co mmon 00:00:00 00:00:[address] [facility] 2022-04-16 2022-04-16 (TEL) STLMLC STLMLC [id number] Co mmon 00:00:00 00:00:[address] [facility] 2022-03-30 2022-03-30 (TEL) STLMLC STLMLC [id number] Co mmon 00:00:00 00:00:[address] [facility] 2022-03-24 2022-03-24 (HOSP F/U) STLMLC STLMLC [id number] Common 00:00:00 00:00:00 [facility] 2022-03-14 2022-03-14 (TEL) STLMLC STLMLC [id number] Co mmon 00:00:00 00:00:[address] [facility] 2022-03-10 2022-03-10 (TEL) STLMLC STLMLC [id number] Co mmon 00:00:00 00:00:[address] [facility] 2022-03-09 2022-03-09 (TEL) STLMLC STLMLC [id number] Co mmon 00:00:00 00:00:[address] [facility] 2022-02-03 2022-02-03 (TEL) STLMLC STLMLC [id number] Co mmon 00:00:00 00:00:[address] [facility] 2022-01-08 2022-01-08 (TEL) STLMLC STLMLC [id number] Co mmon 00:00:00 00:00:[address] [facility] 2022-01-05 2022-01-05 OFFICE STLMLC STLMLC [id number] Co mmon 00:00:00 00:00:00 VISIT Spirit ESTAB PT - CHI LEVEL 4 [facility] 2021-12-07 2021-12-07 (TEL) STLMLC STLMLC [id number] Co mmon 00:00:00 00:00:00 Spirit [facility] 2021-12-02 2021-12-02 OFFICE STLMLC STLMLC [id number] Co mmon 00:00:00 00:00:00 VISIT Spirit ESTAB PT - CHI LEVEL 4 [facility] 2021-10-06 2021-10-06 OFFICE STLMLC STLMLC [id number] Co mmon 00:00:00 00:00:00 VISIT Spirit ESTAB PT - CHI LEVEL 4 [facility] 2021-09-07 2021-09-07 OFFICE STLMLC STLMLC [id number] Co mmon 00:00:00 00:00:00 VISIT Spirit ESTAB PT - CHI LEVEL 4 [facility] 2021-08-13 2021-08-13 (TEL) STLMLC STLMLC [id number] Co mmon 00:00:00 00:00:[address] [facility] 2021-07-31 2021-07-31 (TEL) STLMLC STLMLC [id number] Co mmon 00:00:00 00:00:00 Spirit [facility] 2021-07-30 2021-07-30 OFFICE STLMLC STLMLC [id number] Co mmon 00:00:00 00:00:00 VISIT Spirit ESTAB PT - CHI LEVEL 4 [facility] 2021-07-19 2021-07-[address] [facility] 1.2.840.114 [id number] Univers 00:00:00 00:00:00 [facility] 350.1.13.10 it y of [place] 4.2.7.2.686 [facility] [place] [id number] [place] [address] [address] ([facility]) 2021-07-06 2021-07-06 OFFICE STLMLC STLMLC [id number] Co mmon 00:00:00 00:00:00 VISIT Spirit ESTAB PT - CHI LEVEL 4 [facility] 2021-07-06 2021-07-06 SUB ANNUAL STLMLC STLMLC [id number] Common 00:00:00 00:00:00 [facility] VISIT [facility] 2021-07-03 2021-07-03 (TEL) STLMLC STLMLC [id number] Co mmon 00:00:00 00:00:[address] [facility] 2021-06-23 2021-06-23 (TEL) STLMLC STLMLC [id number] Co mmon 00:00:00 00:00:[address] [facility] 2021-06-22 2021-06-22 (TEL) STLMLC STLMLC [id number] Co mmon 00:00:00 00:00:[address] [facility] 2021-05-28 2021-05-28 (IN/ASP) STLMLC STLMLC [id number] C ommon 00:00:00 00:00:00 INJ ASP [facility] 2021-05-21 2021-05-21 (IN/ASP) STLMLC STLMLC [id number] C ommon 00:00:00 00:00:00 INJ ASP [facility] 2021-04-28 2021-04-28 (TEL) STLMLC STLMLC [id number] Co mmon 00:00:00 00:00:[address] [facility] 2021-04-27 2021-04-27 (TEL) STLMLC STLMLC [id number] Co mmon 00:00:00 00:00:[address] [facility] 2021-04-24 2021-04-24 (TEL) STLMLC STLMLC [id number] Co mmon 00:00:00 00:00:[address] [facility] 2021-04-07 2021-04-07 (HOSP F/U) STLMLC STLMLC [id number] Common 00:00:00 00:00:00 [facility] 2021-04-02 2021-04-02 (TEL) STLMLC STLMLC [id number] Co mmon 00:00:00 00:00:[address] [facility] 2021-03-26 2021-03-26 OFFICE STLMLC STLMLC [id number] Co mmon 00:00:00 00:00:00 VISIT [facility] 4 [facility] 2021-03-03 2021-03-03 Outpatient STLMLC STLMLC [id number] Common 00:00:00 00:00:[address] [facility] 2021-02-27 2021-02-27 Outpatient STLMLC STLMLC [id number] Common 00:00:00 00:00:[address] [facility] 2021-02-25 2021-02-25 Outpatient STLMLC STLMLC [id number] Common 00:00:00 00:00:[address] [facility] 2021-01-21 2021-01-21 Outpatient STLMLC STLMLC [id number] Common 00:00:00 00:00:[address] [facility] 2021-01-19 2021-01-19 Outpatient STLMLC STLMLC [id number] Common 00:00:00 00:00:[address] [facility] 2021-01-16 2021-01-16 Outpatient R [facility] [id number] Univers 11:30:00 11:30:00 [facility] 2020-12-24 2020-12-24 Outpatient STLMLC STLMLC [id number] Common 00:00:00 00:00:[address] [facility] 2020-12-24 2020-12-24 Outpatient STLMLC STLMLC [id number] Common 00:00:00 00:00:[address] [facility] 2020-12-24 2020-12-24 Outpatient STLMLC STLMLC [id number] Common 00:00:00 00:00:[address] [facility] 2020-12-19 2020-12-19 Outpatient STLMLC STLMLC [id number] Common 00:00:00 00:00:[address] [facility] 2020-12-18 2020-12-18 Outpatient STLMLC STLMLC [id number] Common 00:00:00 00:00:[address] [facility] 2020-11-25 2020-11-25 [facility] Maria Alejandra [facility] 1.2.789.541 [id number] 09:18:00 13:13:00 Encounter Nivia Duff 350.1.13.10 Clear 4.2.7.2.686 Jarvis [id number] Hospital 049 ([facility]) 2020-11-25 2020-11-[address] [facility] 1.2.840.114 [id number] 11:00:00 12:14:00 Health 350.1.13.10 Clear 4.2.7.2.686 Jarvis [id number] Hospital 020 ([facility]) 2020-11-25 2020-11-25 Orders Doctor RAY 1.2.840.114 [id number] 00:00:00 00:00:00 Only Unassigned, SUSHILA 350.1.13.10 [place] [facility] 4.2.7.2.686 [id number] 2020-11-25 2020-11-25 Prep For RAY Bess 1.2.135.925 [id number] 00:00:00 00:00:00 Surgery Nivia CONTI 350.1.13.10 [facility] 4.2.7.2.686 [id number] 2020-11-25 2020-11-25 [facility] 1.2.840.114 [id number] 00:00:00 00:00:00 Nivia Duff 350.1.13.10 Clear 4.2.7.2.686 Jarvis [id number] [facility] 049 ([facility]) 2020-11-25 2020-11-25 [facility] 1.2.840.114 [id number] 00:00:00 00:00:00 [facility] 350.1.13.10 Clear 4.2.7.2.686 Jarvis [id number] [facility] 049 ([facility]) 2020-11-14 2020-11-14 [facility] [id number] Common 00:00:00 00:00:[address] [facility] 2020-11-12 2020-11-12 [facility] [id number] Common 00:00:00 00:00:[address] [facility] 2020-11-03 2020-11-03 Prep For RAY Bess 1.2.937.620 [id number] 00:00:00 00:00:00 Surgery Nivia CONTI 350.1.13.10 [place] [address].2.7.2.686 [id number] 2020-10-31 2020-10-[address] [facility] 1.2.840.114 [id number] 00:00:00 00:00:00 Nivia SPECIALTY 350.1.13.10 [facility] 4.2.7.2.686 CENTER AT [id number] MARYSOL Sena [facility] 2020-10-24 2020-10-24 Outpatient STLMLC STLMLC [id number] Common 00:00:00 00:00:[address] [facility] 2020-10-15 2020-10-15 Outpatient STLMLC STLMLC [id number] Common 00:00:00 00:00:[address] [facility] 2020-07-23 2020-07-23 Laboratory Only, [facility] 1.2.840.114 [id number] 11:51:15 12:06:15 Only Test [place] 350.1.13.10 [place] 4.2.7.2.686 [place] [id number] 2020-07-23 2020-07-23 Outpatient R [facility] [id number] Univers 11:00:00 11:00:00 ity of [place] [facility] 2020-07-23 2020-07-23 Orders Doctor BELL 1.2.840.114 [id number] 00:00:00 00:00:00 Only Unassigned, SUSHILA 350.1.13.10 [place] [facility] 4.2.7.2.686 [id number] 2020-07-18 2020-07-18 Outpatient STLMLC STLMLC [id number] Common 00:00:00 00:00:[address] [facility] 2020-07-15 2020-07-[address] [facility] 1.2.840.114 [id number] 13:45:51 14:15:51 Visit Nivia SPECIALTY 350.1.13.10 [facility] 4.2.7.2.686 BELLAIRE AT [id number] MARYSOL ROMAN 2020-07-15 2020-07-15 Outpatient [facility] [id number] Univers 13:45:00 13:45:00 NIVIA leonard [facility] 2020-06-18 2020-06-18 Outpatient STLMLC STLMLC [id number] Common 00:00:00 00:00:[address] [facility] 2020-06-17 2020-06-17 Outpatient [facility] [id number] Univers 08:30:00 08:30:00 JOE andrews [facility] 2020-06-09 2020-06-09 Outpatient R [facility] [id number] Univers 09:00:00 09:00:00 aisha [facility] 2020-05-15 2020-05-15 Outpatient STLMLC STLMLC [id number] Common 00:00:00 00:00:[address] [facility] 2020-05-13 2020-05-13 Outpatient [facility] [id number] Univers 09:00:00 09:00:00 JOE [facility] 2020-04-17 2020-04-17 Outpatient STLMLC STLMLC [id number] Common 00:00:00 00:00:[address] [facility] 2020-04-11 2020-04-11 Outpatient STLMLC STLMLC [id number] Common 00:00:00 00:00:[address] [facility] 2020-04-08 2020-04-08 Outpatient STLMLC STLMLC [id number] Common 00:00:00 00:00:[address] [facility] 2020-03-20 2020-03-20 Outpatient STLMLC STLMLC [id number] Common 00:00:00 00:00:[address] [facility] 2019-12-19 2019-12-19 [id number] Common 10:45:00 10:45:00 [facility] it [facility] [employer] [facility] 2019-12-19 2019-12-19 [facility] [id number] Common 10:00:00 10:00:00 [place] [address] [facility] 2019-12-03 2019-12-03 [facility] [id number] Common 10:17:00 10:17:00 [place] [address] [place] [facility] 2019-12-03 2019-12-03 Outpatient [id number] Common 09:59:00 09:59:00 [address] [facility] 2019-11-29 2019-11-29 [id number] Common 09:45:00 09:45:00 t [place] [address] [address] [facility] 2019-11-13 2019-11-13 [facility] [id number] Common 11:17:00 11:17:00 t [facility] [address] [facility] 2019-11-06 2019-11-06 [facility] [id number] Common 15:08:00 15:08:00 t [address] [address] [facility] 2019-11-01 2019-11-01 [facility] 30 [id number] Common 16:03:00 16:03:00 t [address] [facility] 2019-10-31 2019-10-31 [facility] [id number] Common 09:15:00 09:15:00 t [place] [address] [address] [facility] 2019-10-01 2019-10-01 [facility] [id number] Common 10:00:00 10:00:00 t [place] [address] [address] [facility] 2019-08-27 2019-08-27 [id number] Common 14:00:00 14:00:00 t [address] [facility] 2019-07-30 2019-07-30 [id number] Common 11:00:00 11:00:00 [address] [facility] [facility] 2019-07-18 2019-07-18 Outpatient ANETA GHOSH [phone] [place] 01:45:00 01:45:00 [place] [id number] da [facility] Outre h Program Results Test Description Test Time Test Comments Results Result Comments Source BASIC METABOLIC PANEL (NA, K, CL, CO2, GLUCOSE, BUN, 2022-06 22:23:06 CREATININE, CA) Test Item Value Reference Range Interpretation Comme nts NA (test code = 4849309334) 138 mmol/L 135-145 K (test code = 3826260096) 4.0 mmol/L 3.5-5.0 CL (test code = 4437463262) 106 mmol/L 98-108 CO2 TOTAL (test code = 27 mmol/L 23-31 4819534016) AGAP (test code = 0673492601) 2-16 BUN (test code = 8509300688) 9 mg/dL 7-23 GLUCOSE (test code = 1249635962) 90 mg/dL 70-110 CREATININE (test code = 0.83 mg/dL 0.50-1.04 7984056803) CALCIUM (test code = 9218288929) 9.2 mg/dL 8.6-10.6 eGFR (test code = 5130879954) mL/min/1.73m2 PEBBLES (test code = PEBBLES) Association of Glomerular Filtration Rate (GFR) and Staging of Kidney Disease* + +--------- + ----+| GFR (mL/min/1.73 m2) ?| With Kidney Damage ?| ?Without Kidney Damage+ +--- + +| ?>90 ?| ?Stage one ?| ? Normal ?+ +-------- + -----+| ?60-89 ?| ?Stage two ?| ? Decreased GFR ? + +--------- + ----+| ?30-59 ?| ?Stage three ?| ? Stage three ? + +--------- + ----+| ?15-29 ?| ?Stage four ? | ? Stage four ?+ +-------- + -----+| ?<15 (or dialysis) ? ?| ?Stage five ? | ? Stage five ?+ +-------- + -----+ *Each stage assumes the associated GFR level has been in effect for at least three months. ?Stages 1 to 5, with or without kidney disease, indicate chronic kidney disease. Notes: Determination of stages one and two (with eGFR >59mL/min/1.73 m2) requires estimation of kidney damage for at least three months as defined by structural or functional abnormalities of the kidney, manifested by either:Pathological abnormalities or Markers of kidney damage (including abnormalities in the composition of the blood or urine or abnormalities in imaging tests). [facility] Test Item Value Reference Range Interpretation Comments MAGNESIUM (test code = 0438901499) 1.9 mg/dL 1.7-2.4 Lab Interpretation (test code = Normal 99345-5) [facility] (NA, K, CL, CO2, GLUCOSE, BUN, CREATININE, CA)2022-06-15 22:23:06 Test Item Value Reference Range Interpretation Comments NA (test code = 138 mmol/L 135-145 2303985253) K (test code = 4.0 mmol/L 3.5-5.0 3218573778) CL (test code = 106 mmol/L 98-108 3400517038) CO2 TOTAL (test code 27 mmol/L 23-31 = 4754864163) AGAP (test code = 2-16 0710379263) BUN (test code = 9 mg/dL 7-23 8979772294) GLUCOSE (test code = 90 mg/dL 70-110 8379619695) CREATININE (test code 0.83 mg/dL 0.50-1.04 = 0111659088) CALCIUM (test code = 9.2 mg/dL 8.6-10.6 8895045373) eGFR (test code = mL/min/1.73m2 7196267049) PEBBLES (test code = PEBBLES) Association of Glomerular Filtration Rate (GFR) and Staging of Kidney Disease* + + +- +| GFR (mL/min/1.73 m2) ?| With Kidney Damage ?| ?Without Kidney Damage+ ------+ ----+ ------+| ?>90 ?| ?Stage one ?| ? Normal ?+ -+ + -+| ?60-89 ?| ?Stage two ?| ? Decreased GFR ? + + +- +| ?30-59 ?| ?Stage three ?| ? Stage three ? + + +- +| ?15-29 ?| ?Stage four ? | ? Stage four ?+ -+ + -+| ?<15 (or dialysis) ? ?| ?Stage five ? | ? Stage five ?+ -+ + -+ *Each stage assumes the associated GFR level has been in effect for at least three months. ?Stages 1 to 5, with or without kidney disease, indicate chronic kidney disease. Notes: Determination of stages one and two (with eGFR >59mL/min/1.73 m2) requires estimation of kidney damage for at least three months as defined by structural or functional abnormalities of the kidney, manifested by either:Pathological abnormalities or Markers of kidney damage (including abnormalities in the composition of the blood or urine or abnormalities in imaging tests). [facility]23[facility]06 Test Item Value Reference Range Interpretation Comments MAGNESIUM (test code = 7177675259) 1.9 mg/dL 1.7-2.4 Lab Interpretation (test code = Normal 20068-7) [facility] WITH [id number] 22:16:47 Test Item Value Reference Range Interpretation Comments WBC (test code = See_Comment [Automated 7190-2) message] The sy stem which generated this result transmitted reference range : 4.30 - 11.10 10*3/?L. The reference range was not used to interpret this result as normal/abnormal . RBC (test code = See_Comment L [Automated 379-8) message] The sy stem which generated this result transmitted reference range : 3.93 - 5.25 10*6/?L. The reference range was not used to interpret this result as normal/abnormal . HGB (test code = 9.3 g/dL 11.6-15.0 L 718-7) HCT (test code = 28.2 % 35.7-45.2 L 4544-3) MCV (test code = 94.9 fL 80.6-95.5 787-2) MCH (test code = 31.3 pg 25.9-32.8 785-6) MCHC (test code = 33.0 g/dL 31.6-35.1 786-4) RDW-SD (test code = 47.9 fL 39.0-49.9 30556-1) RDW-CV (test code = 13.8 % 12.0-15.5 788-0) PLT (test code = See_Comment H [Automated 777-3) message] The sy stem which generated this result transmitted reference range : 166 - 358 10*3/ ?L. The reference r sourav was not used to interpret this result as normal/abnormal . MPV (test code = 9.6 fL 9.5-12.9 32684-7) NRBC/100 WBC (test See_Comment [Automat ed code = 0383386463) message] The system which generated this result transmitted reference range : 0.0 - 10.0 /100 WBCs. The refer ence range was not u sed to interpret th is result as normal/abnormal . NRBC x10^3 (test code See_Comment [Auto mated = 0169121895) message] The s ystem which generated this result transmitted reference range : 10*3/?L. The reference range was not used to interpret this result as normal/abnormal . GRAN MAT (NEUT) % 71.6 % (test code = 770-8) IMM GRAN % (test code 0.90 % = 4641534113) LYMPH % (test code = 14.8 % 736-9) MONO % (test code = 9.9 % 5905-5) EOS % (test code = 2.3 % 713-8) BASO % (test code = 0.5 % 706-2) GRAN MAT x10^3(ANC) 6.19 10*3/uL 1.88-7.09 (test code = 6004852956) IMM GRAN x10^3 (test 0.08 10*3/uL 0.00-0.06 H code = 3941647463) LYMPH x10^3 (test code 1.28 10*3/uL 1.32-3.29 L = 731-0) MONO x10^3 (test code 0.86 10*3/uL 0.33-0.92 = 742-7) EOS x10^3 (test code = 0.20 10*3/uL 0.03-0.39 711-2) BASO x10^3 (test code 0.04 10*3/uL 0.01-0.07 = 704-7) Lab Interpretation Abnormal (test code = 43609-2) [facility] WITH [id number] 22:16:47 Test Item Value Reference Range Interpretation Comments WBC (test code = See_Comment [Automated 6690-2) message] The sy stem which generated this result transmitted reference range : 4.30 - 11.10 10*3/?L. The reference range was not used to interpret this result as normal/abnormal . RBC (test code = See_Comment L [Automated 789-8) message] The sy stem which generated this result transmitted reference range : 3.93 - 5.25 10*6/?L. The reference range was not used to interpret this result as normal/abnormal . HGB (test code = 9.3 g/dL 11.6-15.0 L 718-7) HCT (test code = 28.2 % 35.7-45.2 L 4544-3) MCV (test code = 94.9 fL 80.6-95.5 787-2) MCH (test code = 31.3 pg 25.9-32.8 785-6) MCHC (test code = 33.0 g/dL 31.6-35.1 786-4) RDW-SD (test code = 47.9 fL 39.0-49.9 96804-7) RDW-CV (test code = 13.8 % 12.0-15.5 788-0) PLT (test code = See_Comment H [Automated 777-3) message] The sy stem which generated this result transmitted reference range : 166 - 358 10*3/ ?L. The reference r sourav was not used to interpret this result as normal/abnormal . MPV (test code = 9.6 fL 9.5-12.9 18345-1) NRBC/100 WBC (test See_Comment [Automat ed code = 5846344167) message] The system which generated this result transmitted reference range : 0.0 - 10.0 /100 WBCs. The refer ence range was not u sed to interpret th is result as normal/abnormal . NRBC x10^3 (test code See_Comment [Auto mated = 3779247816) message] The s ystem which generated this result transmitted reference range : 10*3/?L. The reference range was not used to interpret this result as normal/abnormal . GRAN MAT (NEUT) % 71.6 % (test code = 770-8) IMM GRAN % (test code 0.90 % = 0049770503) LYMPH % (test code = 14.8 % 736-9) MONO % (test code = 9.9 % 5905-5) EOS % (test code = 2.3 % 713-8) BASO % (test code = 0.5 % 706-2) GRAN MAT x10^3(ANC) 6.19 10*3/uL 1.88-7.09 (test code = 7033046899) IMM GRAN x10^3 (test 0.08 10*3/uL 0.00-0.06 H code = 6479326906) LYMPH x10^3 (test code 1.28 10*3/uL 1.32-3.29 L = 731-0) MONO x10^3 (test code 0.86 10*3/uL 0.33-0.92 = 742-7) EOS x10^3 (test code = 0.20 10*3/uL 0.03-0.39 711-2) BASO x10^3 (test code 0.04 10*3/uL 0.01-0.07 = 704-7) Lab Interpretation Abnormal (test code = 31396-4) [facility]"
--- NOTE | 2022-07-12 17:06 | RAD REPORT ---
EXAM DESCRIPTION: RAD - Chest Single View - 07/12/2022 4:59 pm CLINICAL HISTORY: CHEST PAIN COMPARISON: Chest Single View dated 06/13/2022; Chest Single View dated 06/11/2022; Chest Single View dated 03/13/2022; Chest Single View dated 04/27/2021 FINDINGS: Lines: None. Lungs: No evidence of edema or pneumonia. Pleural: No significant pleural effusions or pneumothorax. Cardiac: The heart size is within normal limits. Mediastinum: Small hiatal hernia. Bones: No acute fractures. Left clavicle plate and screw hardware. Remote right-sided rib fractures. Other: None IMPRESSION: No acute cardiopulmonary disease.
[2022-07-12 18:53] LABS: Urine Blood Trace-lysed (Negative); Urine Glucose Negative (Negative); Urine Protein 1+ (Negative); Urine Specific Gravity 1.025 (1.005-1.030); Urine pH 5.5 (5.0-7.0)
[2022-07-12 18:58] LABS: Absolute Lymphocytes (CBC) 1.4 K/uL (0.7-4.9); Hematocrit 44.5 % (36.0-45.0); Lymphocytes % 11.4 % (15.3-44.8); MCV 96.4 fL (80-100); RBC Red Blood Cell Count 4.62 M/uL (3.86-4.86)
[2022-07-12 19:21] LABS: ALT/SGPT 34 U/L (13-56); AST/SGOT 24 U/L (15-37); Alkaline Phosphatase 146 U/L (45-117); BUN Blood Urea Nitrogen 12 mg/dL (7-18); Bicarbonate 32 mmol/L (21-32); Bilirubin Total 0.2 mg/dL (0.2-1.0); Glomerular Filtration Rate 44 ml/min (=/>90); Glucose Level 124 mg/dL (74-106); Lipase 121 U/L (73-393); Magnesium 1.5 mg/dL (1.6-2.4); Potassium 3.9 mmol/L (3.5-5.1); Protein, Total 8.1 g/dL (6.4-8.2); Sodium Level 138 mmol/L (136-145); Troponin High Sensitivity 10.4 pg/mL (<58.9)
[2022-07-12 19:21] LABS: Urine Bacteria None Seen /HPF (<20); Urine Mucus 1+ /HPF (None Seen)
[2022-07-12 19:22] LABS: Bilirubin Direct < 0.1 mg/dL (0-0.2)
[2022-07-12] MEDS ORDERED: MAGNESIUM SULFATE 1 gm IVPB 1 GM/100 ML BAG IV ONE (20:08)
[2022-07-12] MEDS ORDERED: CEFTRIAXONE 1000 MG/VIAL ONE (20:08)
[2022-07-12] MEDS ORDERED: NA CHLORIDE 0.9% 500 ML ONE (20:08)
--- NOTE | 2022-07-12 20:42 | RAD REPORT ---
EXAM DESCRIPTION: CTChest Abdomen Pelvis W Cont - 07/12/2022 8:21 pm CLINICAL HISTORY: chest/abdomen pain COMPARISON: Chest Single View dated 07/12/2022 TECHNIQUE: CT of the chest, abdomen, and pelvis was performed with IV contrast. All CT scans are performed using dose optimization technique as appropriate and may include automated exposure control or mA/KV adjustment according to patient size. FINDINGS: Thorax: Chest Wall: No abnormal mass. Patulous esophagus containing some fluid that could be secondary to ref lux. . Lungs: No acute abnormality. Pleura: No effusions or pneumothorax. Angeline/Mediastinum: No lymphadenopathy. Moderate hiatal hernia. Aorta/Pulmonary Arteries: Unremarkable Heart: Normal size. Abdomen/Pelvis: Liver: No acute abnormality or suspicious lesions. Biliary: No biliary ductal dilatation. Stomach: No significant focal abnormality. Duodenum: No significant focal abnormality. Pancreas: No significant abnormality. Spleen: No significant abnormality. Adrenal: No suspicious lesions. Kidney/ureter: No hydronephrosis. No renal calculi. Retroperitoneum: No retroperitoneal adenopathy. Vascular: No aneurysm. Bowel: No significant focal abnormality. Peritoneum: No ascites or free air. Bladder: Grossly unremarkable. Reproductive: No adnexal masses. Hysterectomy. Bones: No acute fracture. Deformity of the right iliac bone may be from remote trauma. Remote L1 comp ression fracture. Slight T9 compression deformity is likely chronic. Plated screw hardware at the lef t clavicle. Advanced left shoulder degenerative changes. Other: n/a IMPRESSION: No acute findings within the chest, abdomen, or pelvis. Incidental findings as noted above.
[2022-07-12] MEDS ORDERED: ONDANSETRON 4 MG/2 ML VIAL ONE (22:18)
[2022-07-12] MEDS ORDERED: PANTOPRAZOLE 40 MG INJ ONE (22:46)
--- NOTE | 2022-07-13 00:20 | EDPHYS ---
Physician Documentation [facility] Name: Martha Pradhan Age: 61 yrs Sex: Female : 1960 Arrival Date: 07/12/2022 Time: 15:56 Bed 4 Private MD: [facility] ED Physician Bryon Rivera HPI: 07/12 16:33 This 61 yrs old Female presents to ER via Wheelchair with complaints of Headache, cp Nausea/Vomiting/Diarrhea, Sore Throat, Chest Pain. Historical: - Allergies: 16:19 haloperidol lactate; jh5 16:19 hydroxyzine HCl; jh5 16:19 Hydroxyzine Pamoate; jh5 16:19 Ibuprofen; jh5 16:19 Lyrica; jh5 16:19 meloxicam; jh5 16:19 nalbuphine HCl; jh5 16:19 Naproxen; jh5 16:19 NSAIDS (Non-Steroidal Anti-Inflammatory Drug); jh5 16:19 Nubain; jh5 16:19 Risperdal; jh5 16:19 Vistaril; jh5 - PMHx: 16:19 ADD/ADHD; Anxiety; GERD; restless leg syndrome; ULCER; Tachycardia; Irritable bowel jh5 syndrome; Osteoporosis; Chronic pain; Arthritis; Back pain; bleeding ulcers; PE; - PSHx: 16:19 Appendectomy; hysterectomy; left clavicle repair; jh5 - Immunization history:: Adult Immunizations up to date. - Social history:: Smoking status: Patient denies any tobacco usage or history of. ROS: 16:35 Constitutional: Negative for body aches, chills, fever. cp 16:35 Eyes: Negative for injury, pain, redness, and discharge. cp 16:35 ENT: Positive for sore throat, Negative for drainage from ear(s), ear pain, difficulty swallowing, difficulty handling secretions. 16:35 Cardiovascular: Positive for chest pain, Negative for palpitations. 16:35 Respiratory: Negative for cough, wheezing. 16:35 Abdomen/GI: Positive for abdominal pain, nausea and vomiting, diarrhea, Negative for constipation, hematemesis, black/tarry stool, rectal bleeding. 16:35 Back: Negative for pain at rest, pain with movement. 16:35 : Negative for urinary symptoms. 16:35 Neuro: Positive for headache, Negative for altered mental status, dizziness, numbness, weakness. 16:35 All other systems are negative. Exam: 16:40 Constitutional: The patient appears in no acute distress, alert, awake, cp non-diaphoretic, non-toxic, well developed, well nourished, uncomfortable. 16:40 Head/Face: Normocephalic, atraumatic. cp 16:40 Eyes: Periorbital structures: appear normal, Conjunctiva: normal, no exudate, no injection, Sclera: no appreciated abnormality, Lids and lashes: appear normal, bilaterally. 16:40 ENT: External ear(s): are unremarkable, Nose: is normal, Mouth: Lips: moist, Oral mucosa: pink and intact, moist, Posterior pharynx: Airway: no evidence of obstruction, patent, erythema, is not appreciated, exudate, is not appreciated. 16:40 Chest/axilla: Inspection: normal. 16:40 Cardiovascular: Rate: tachycardic, Rhythm: regular, Edema: is not appreciated, JVD: is not appreciated. 16:40 Respiratory: the patient does not display signs of respiratory distress, Respirations: normal, no use of accessory muscles, no retractions, labored breathing, is not present, Breath sounds: are clear throughout, no decreased breath sounds, no stridor, no wheezing. 16:40 Abdomen/GI: Inspection: abdomen appears normal, Bowel sounds: active, all quadrants, Palpation: soft, in all quadrants, moderate abdominal tenderness, in the left lower quadrant, rebound tenderness, is not appreciated, involuntary guarding, is not appreciated. 16:40 Back: CVA tenderness, is absent. 16:40 Neuro: Orientation: to person, place \T\ time. Mentation: is normal, Motor: moves all fours, strength is normal, Sensation: is normal. 18:58 ECG was reviewed by the Attending Physician. cp Vital Signs: 16:27 BP 116 / 77; Pulse 112; Resp 16; Temp 98.7; Pulse Ox 97% ; Weight 63.5 kg; Height 5 ft. jh5 0 in. (152.40 cm); Pain 5/10; 18:56 BP 105 / 60; Pulse 107; Resp 17; Temp 98.5(O); Pulse Ox 99% on R/A; zm 20:43 BP 136 / 50; Pulse 90; Resp 15 S; Pulse Ox 98% on R/A; as6 07/13 00:42 BP 125 / 68; Pulse 82; Resp 18; Pulse Ox 100% on R/A; kl 07/12 16:27 Body Mass Index 27.34 (63.50 kg, 152.40 cm) jh5 MDM: 07/12 16:22 Patient medically screened. cp 07/13 00:18 Data reviewed: vital signs, nurses notes, lab test result(s), EKG, radiologic studies, cp CT scan, plain films. 00:18 Consideration of Admission/Observation Escalation of care including cp admission/observation considered. I considered the following discharge prescriptions or medication management in the emergency department Medications were administered in the Emergency Department. See MAR. Independent interpretation of the following test(s) in the Emergency Department X-Ray: My interpretation is chest xray negative for focal pneumonia. Counseling: I had a detailed discussion with the patient and/or guardian regarding: the historical points, exam findings, and any diagnostic results supporting the discharge/admit diagnosis, lab results, radiology results, to return to the emergency department if symptoms worsen or persist or if there are any questions or concerns that arise at home. Response to treatment: the patient's symptoms have markedly improved after treatment, and as a result, I will discharge patient. Special discussion: Based on the patient's history, exam, and Dx evaluation, there is no indication for emergent intervention or inpatient Tx. It is understood by the patient/guardian that if the Sx's persist or worsen they need to return immediately for re-evaluation. Based on the patient's Hx, exam, and Dx evaluation, there is no indication for emergent surgery or inpatient Tx. It is understood by the patient/guardian that if the Sx's persist or worsen they need to return immediately for re-evaluation. 07/12 16:30 Order name: Basic Metabolic Panel; Complete Time: 19:58 cp 07/12 19:58 Interpretation: Normal except: CL 97; GLUC 124; CRE 1.36; GFR 44; CA 11.5. cp 07/12 16:30 Order name: CBC with Diff; Complete Time: 19:58 cp 07/12 20:08 Interpretation: Normal except: WBC 12.60; PLT 545; JOSUE% 76.2; LYM% 11.4; NEUT A 9.6; cp MNA 1.4. 07/12 16:30 Order name: LFT's; Complete Time: 19:58 cp 07/12 22:20 Interpretation: Normal except: ALK 146; GLOB 4.1; A/G 1.0. cp 07/12 16:30 Order name: Magnesium; Complete Time: 19:58 cp 07/13 00:15 Interpretation: Abnormal: MG 1.5. cp 07/12 16:30 Order name: Troponin HS; Complete Time: 19:58 cp 07/12 16:30 Order name: Lipase; Complete Time: 19:58 07/12 16:30 Order name: XRAY Chest (1 view); Complete Time: 17:09 07/12 17:10 Interpretation: Report review. 07/12 18:54 Order name: Urine Dipstick-Ancillary; Complete Time: 19:58 EDMS 07/12 18:55 Order name: Urine Microscopic Only; Complete Time: 19:58 [facility] 07/12 22:20 Interpretation: Normal except: UWBC 20-50; URBC 5-10; HYAL >20. 07/12 18:55 Order name: Urine Culture [facility] 07/12 20:00 Order name: CT Chest, Abdomen, Pelvis - W/Contrast 07/12 20:04 Order name: Chest Abdomen Pelvis W Cont; Complete Time: 21:34 EDMS 07/12 21:35 Order name: Troponin High Sensitivity; Complete Time: 00:14 07/12 16:30 Order name: EKG; Complete Time: 16:30 07/12 16:30 Order name: Cardiac monitoring; Complete Time: 20:38 07/12 16:30 Order name: EKG - Nurse/Tech; Complete Time: 18:52 07/12 16:30 Order name: IV Saline Lock; Complete Time: 18:52 cp 07/12 16:30 Order name: Labs collected and sent; Complete Time: 18:52 cp 07/12 16:30 Order name: O2 Per Protocol; Complete Time: 18:52 cp 07/12 16:30 Order name: O2 Sat Monitoring; Complete Time: 18:52 cp 07/12 21:35 Order name: PO challenge 07/12 22:38 Order name: PO challenge; Complete Time: 23:48 cp EC/30 18:58 Rate is 106 beats/min. Rhythm is regular. FL interval is normal. QRS interval is cp normal. QT interval is normal. T waves are Inverted in leads III, aVR. Interpreted by me. Reviewed by me. Administered Medications: 20:44 Drug: NS 0.9% 500 ml Route: IV; Rate: bolus; Site: right forearm; as6 20:44 Drug: Rocephin (cefTRIAXone) 1 grams Route: IV; Rate: calculated rate; Site: right as6 forearm; 20:44 Drug: Magnesium Sulfate 1 grams Route: IVPB; Infused Over: 1 hrs; Site: right forearm; as6 22:26 Drug: Zofran (Ondansetron) 4 mg Route: IVP; Site: right antecubital; kl 22:46 Drug: ProTONIX (pantoprazole) 40 mg Route: IVP; Site: right antecubital; Disposition: 07/13 07:10 Co-signature as Attending Physician, Bryon Rivera MD I reviewed the patient's care rn provided by the Advanced Practice Provider and agree with the diagnosis and treatment plan. Disposition Summary: 07/13/22 00:19 Discharge Ordered Location: Home cp Problem: new cp Symptoms: have improved cp Condition: Stable cp Diagnosis - Chest pain, unspecified cp - Abdominal pain, unspecified cp - UTI/ Urinary tract infection, site not specified cp - Diarrhea, unspecified cp - Nausea with vomiting, unspecified cp Followup: cp - With: Private Physician - When: 2 - 3 days - Reason: Recheck today's complaints Discharge Instructions: - Discharge Summary Sheet cp - Abdominal Pain, Adult cp - Food Choices to Help Relieve Diarrhea, Adult cp - Nonspecific Chest Pain, Adult cp - Diarrhea, Adult cp - Nausea and Vomiting, Adult cp - Urinary Tract Infection, Adult cp Forms: - Medication Reconciliation Form cp - Thank You Letter cp - Antibiotic Education cp - Prescription Opioid Use cp Prescriptions: - Zofran 4 mg Oral Tablet - take 1 tablet by ORAL route every 12 hours As needed; 20 tablet; Refills: 0, cp Product Selection Permitted - Macrobid 100 mg Oral Capsule - take 1 capsule by ORAL route every 12 hours for 7 days; 14 capsule; Refills: 0, cp Product Selection Permitted Signatures: Dispatcher [employer] Dai Beckham RN RN kl Nieto, Roman, MD MD rn Page, Corey, PA PA cp Rees, Jessica RN RN 5 Chucky Hendricks, RN RN as6
--- NOTE | 2022-07-13 00:20 | ER ---
Nurse's Notes [facility] Name: Martha Pradhan Age: 61 yrs Sex: Female : 1960 Arrival Date: 07/12/2022 Time: 15:56 Bed 4 Private MD: Nirmal Hancock Diagnosis: Chest pain, unspecified;Abdominal pain, unspecified;UTI/ Urinary tract infection, site not specified;Diarrhea, unspecified;Nausea with vomiting, unspecified Presentation: 07/12 16:27 Chief complaint: Patient states: i got a headache, i got diarrhea and vomitin, and my jh5 chest hurts right in here that started today and my belly hurts, and i got the sore throat. Coronavirus screen: Vaccine status: Patient reports receiving the 2nd dose of the covid vaccine. Client denies travel out of the [place] in the last 14 days. Ebola Screen: Patient negative for fever greater than or equal to 101.5 degrees Fahrenheit, and additional compatible Ebola Virus Disease symptoms Patient denies exposure to infectious person. Patient denies travel to an Ebola-affected area in the 21 days before illness onset. Initial Sepsis Screen: Does the patient meet any 2 criteria? No. Patient's initial sepsis screen is negative. Does the patient have a suspected source of infection? No. Patient's initial sepsis screen is negative. Risk Assessment: Do you want to hurt yourself or someone else? Patient reports no desire to harm self or others. 16:27 Method Of Arrival: Wheelchair [facility] 16:27 Acuity: ROSALBA 3 jh5 20:45 Onset of symptoms is unknown. as6 Triage Assessment: 16:19 Headache History: The patient has had previous headaches and this one is similar to 5 previous episodes. General: Appears uncomfortable, well groomed, well developed, Behavior is calm, cooperative, appropriate for age. Pain: Pain currently is 0 out of 10 on a pain scale. Pain began gradually, Also complains of. Neuro: No deficits noted. Historical: - Allergies: 16:19 haloperidol lactate; 5 16:19 hydroxyzine HCl; 5 16:19 Hydroxyzine Pamoate; 5 16:19 Ibuprofen; 5 16:19 Lyrica; 5 16:19 meloxicam; 5 16:19 nalbuphine HCl; jh5 16:19 Naproxen; 5 16:19 NSAIDS (Non-Steroidal Anti-Inflammatory Drug); [facility] 16:19 Nubain; 5 16:19 Risperdal; 5 16:19 Vistaril; 5 - PMHx: 16:19 ADD/ADHD; Anxiety; GERD; restless leg syndrome; ULCER; Tachycardia; Irritable bowel [facility] syndrome; Osteoporosis; Chronic pain; Arthritis; Back pain; bleeding ulcers; PE; - PSHx: 16:19 Appendectomy; hysterectomy; left clavicle repair; 5 - Immunization history:: Adult Immunizations up to date. - Social history:: Smoking status: Patient denies any tobacco usage or history of. Screenin:30 [facility] ED Fall Risk Assessment (Adult) History of falling in the last 3 months, [facility] including since admission No falls in past 3 months (0 pts) Confusion or Disorientation No (0 pts) Intoxicated or Sedated No (0 pts) Impaired Gait No (0 pts) Mobility Assist Device Used No (0 pt) Altered Elimination No (0 pt) Score/Fall Risk Level 0 - 2 = Low Risk. Abuse screen: Denies threats or abuse. Denies injuries from another. Nutritional screening: No deficits noted. Tuberculosis screening: No symptoms or risk factors identified. Assessment: 20:44 General: Appears in no apparent distress. Behavior is calm, cooperative. Pain: as6 Complains of pain in suprapubic area. Pain: Complains of pain in head. Neuro: Level of Consciousness is awake, alert, obeys commands, Oriented to person, place, time, situation, Reports headache. Cardiovascular: Capillary refill < 3 seconds Patient's skin is warm and dry. Respiratory: Respiratory effort is even, unlabored, Respiratory pattern is regular, symmetrical. : Reports pain in suprapubic area. 07/13 00:43 Reassessment: Patient appears in no apparent distress at this time. Patient and/or kl family updated on plan of care and expected duration. Pain level reassessed. Patient is alert, oriented x 3, equal unlabored respirations, skin warm/dry/pink. Patient states feeling better. Patient states symptoms have improved. Vital Signs: 07/12 16:27 BP 116 / 77; Pulse 112; Resp 16; Temp 98.7; Pulse Ox 97% ; Weight 63.5 kg; Height 5 ft. jh5 0 in. (152.40 cm); Pain 5/10; 18:56 BP 105 / 60; Pulse 107; Resp 17; Temp 98.5(O); Pulse Ox 99% on R/A; zm 20:43 BP 136 / 50; Pulse 90; Resp 15 S; Pulse Ox 98% on R/A; as6 07/13 00:42 BP 125 / 68; Pulse 82; Resp 18; Pulse Ox 100% on R/A; kl 07/12 16:27 Body Mass Index 27.34 (63.50 kg, 152.40 cm) 5 ED Course: 07/12 15:56 Patient arrived in ED. am2 15:57 Nirmal Hancock DO is Private Physician. am2 16:00 Keyshawn Chan PA is PHCP. cp 16:00 Bryon Rivera MD is Attending Physician. cp 16:19 Triage completed. 5 16:19 Arm band placed on right wrist. [facility] 16:30 Patient has correct armband on for positive identification. [facility] 17:01 XRAY Chest (1 view) In Process Unspecified. EDMS 18:52 Initial lab(s) drawn, by ma, sent to lab. Urine collected: clean catch specimen, clear. jl7 Inserted saline lock: 22 gauge in right forearm, using aseptic technique. Blood collected. 20:09 Chucky Hendricks, RN is Primary Nurse. as6 20:23 Chest Abdomen Pelvis W Cont In Process Unspecified. EDMS 07/13 00:42 No provider procedures requiring assistance completed. IV discontinued, intact, kl bleeding controlled, No redness/swelling at site. Pressure dressing applied. Administered Medications: 07/12 20:44 Drug: NS 0.9% 500 ml Route: IV; Rate: bolus; Site: right forearm; as6 20:44 Drug: Rocephin (cefTRIAXone) 1 grams Route: IV; Rate: calculated rate; Site: right as6 forearm; 20:44 Drug: Magnesium Sulfate 1 grams Route: IVPB; Infused Over: 1 hrs; Site: right forearm; as6 22:26 Drug: Zofran (Ondansetron) 4 mg Route: IVP; Site: right antecubital; kl 22:46 Drug: ProTONIX (pantoprazole) 40 mg Route: IVP; Site: right antecubital; kl Medication: 20:45 VIS not applicable for this client. as6 Outcome: 07/13 00:19 Discharge ordered by . filippo 00:43 Discharged to home ambulatory. marco a 00:43 Condition: improved 00:43 Discharge instructions given to patient, Instructed on discharge instructions, follow up and referral plans. medication usage, Demonstrated understanding of instructions, follow-up care, medications, Prescriptions given X 2. 00:43 Patient left the ED. Signatures: Dispatcher [employer] EDDai Grye RN RN Keyshawn Ross PA PA cp Leal, Jahala, RN RN jl7 Amie Nunes Jessica RN RN jh5 Chucky Hendricks RN RN as6 Ana Laura Andrew Corrections: (The following items were deleted from the chart) 07/12 16:22 16:14 Chief complaint: Patient states: I woke up with my face all swollen like this; I [facility] don't know what happened [facility] 16:22 16:14 Coronavirus screen: Vaccine status: Patient reports receiving the 2nd dose of the [facility] covid vaccine. Client denies travel out of the [place] in the last 14 days. [facility] 16:22 16:14 Ebola Screen: Patient negative for fever greater than or equal to 101.5 degrees [facility] Fahrenheit, and additional compatible Ebola Virus Disease symptoms Patient denies exposure to infectious person. Patient denies travel to an Ebola-affected area in the 21 days before illness onset. [facility] 16:22 16:14 Initial Sepsis Screen: Does the patient meet any 2 criteria? No. Patient's [facility] initial sepsis screen is negative. Does the patient have a suspected source of infection? No. Patient's initial sepsis screen is negative. [facility] 16:22 16:14 Risk Assessment: Do you want to hurt yourself or someone else? Patient reports no [facility] desire to harm self or others. [facility] 16:22 16:14 Method Of Arrival: Ambulatory [place] [id number] 16:22 16:14 BP 136 / 99; Pulse 86bpm; Resp 18bpm; Pulse Ox 100%; Temp 98.7F; 56.25 kg; Height [facility] 5 ft. 1 in.; BMI: 23.4; Pain 0/10; [facility] 16:22 16:14 Acuity: ROSALBA 3 jh5 jh5
[2022-07-13 01:13] VITALS: TEMP 98.5
[2022-07-13 01:19] VITALS: BP 125/68; O2SAT 100
--- NOTE | 2022-07-13 16:55 | EKG ---
Test Date: 2022-07-12 Test Time: 18:51:27 Wood Type Finisher: ANDRE MEASUREMENT RESULTS: Intervals: Rate: 106 OH: 122 QRSD: 80 QT: 326 QTc: 433 [place]: P: 46 OH: 122 QRS: 41 T: 31 INTERPRETIVE STATEMENTS: Sinus tachycardia Possible Left atrial enlargement Borderline ECG Compared to ECG 06/13/2022 17:38:35 No significant changes Electronically Signed On 07-13-22 16:53:41 LOADER HELPER by Eddie Teran
== END 2022-07-13 00:43 | disposition home or self-care (01) ==
LOC: ER 15:55
DX: R07.89 Other chest pain (principal); N39.0 Urinary tract infection, site not specified; R10.32 Left lower quadrant pain; R19.7 Diarrhea, unspecified; R11.2 Nausea with vomiting, unspecified; R51.9 Headache, unspecified; Z88.5 Allergy status to narcotic agent; Z88.6 Allergy status to analgesic agent; Z88.8 Allergy status to other drugs, medicaments and biological substances; Z91.048 Other nonmedicinal substance allergy status
CPT/HCPCS: 93005; 87088; 85025; 87086; 80048; 36415; 83735; 80076; 84484 ×2; 83690; 71260; 74177; 71045; Q9967; C9113; J3475; J7040; J2405; 81003; 81015

== ENCOUNTER 2022-10-07 18:55 | Emergency (ER) | payer OTHER ==
--- OUTSIDE RECORDS SUMMARY | 2022-10-07 19:06 | XMS REPORT | Continuity of Care Document ---
:1960 Author Organization [facility] t Address [address] [place] [address] Care Team Providers Name Role Phone Lani Berman Primary Care Physician Nirmal Hancock Attending Clinician Unavailable ЕЛЕНА BESS Attending Clinician Unavailable MARIXA LEE Attending Clinician Unavailable Betito Steele MD Attending Clinician LUPE CAMPOS Attending Clinician Unavailable Doctor Unassigned, [place] Attending Clinician Unavailable Dino Mayer RN Attending Clinician Unavailable TIFFANI DARBY Attending Clinician Unavailable TIFFANI DARBY Attending Clinician Unavailable Sharif Castañeda CRNA Attending Clinician Alexandru Austin MD Attending Clinician Kristan Monroe CRNA Attending Clinician Елена Bess MD Attending Clinician Only, Adc Test Attending Clinician Unavailable JOE MORALES Attending Clinician Unavailable ROGELIO Attending Clinician Unavailable SHERWIN NASH Attending Clinician Unavailable SHERWIN NASH Attending Clinician Unavailable ЕЛЕНА BESS Admitting Clinician Unavailable TIFFANI DARBY Admitting Clinician Unavailable Елена Bess MD Admitting Clinician NERYRAY Admitting Clinician Unavailable Payers Payer Name Policy Type Policy Number Effective Date Expiration Date S shawn [facility] [id number] 2012 2022 PLAN STAR 00:00:00 00:00:00 [place] DUAL [id number] 2020 COMP HMO D SNP 00:00:00 [place] [id number] 2020 00:00:00 [facility] STAR [id number] 2013 PLUS 00:00:00 [facility] [id number] 2020 2024 00:00:00 00:00:00 [place] [id number] 2019 Common DUAL MCR WELLMED 00:00:00 [facility] [id number] 2012 Common 00:00:00 [facility] [id number] 2012 Common 00:00:00 [facility] [id number] 2012 Common 00:00:00 [facility] [place]ICARE B[place]: [id number] 2006 [employer] 00:00:00 [facility] [id number] PLAN - DUAL COMPLETE - SNP PLAN (MEDICARE REPLACEMENT HMO) [facility] [id number] 2018 COMMUNITY PLAN - 00:00:00 [facility] PLUS (MEDICAID HMO) Problems Condition Condition Condition Status Onset Resolution Last Treating Co mments Source Name Details Category Date Date Treatment Clinician Date GI bleed GI bleed Disease Active Unive rs 1-02 ity of 00:00: 00 Medical Branch Peptic Peptic Disease Active Overview: Univer s ulcer ulcer 6-15 Formattin ity of disease disease 00:00: g of this 00 note Medical might be Branch different from the original. Added automatic ally from request for surgery [id number] Multiple Multiple Disease Active Overview: Un raffi gastric gastric 2-02 Formattin ity o f ulcers ulcers 00:00: g of this note Medical might be Branch different from the original. Added automatic ally from request for surgery [id number] Hiatal Hiatal Disease Active 2019-06 Univers hernia hernia 2-03 ity of 00:00: Medical Branch Post-op Post-op Disease Active 2015-06 Univers pain pain 0-31 ity of 00:00: [place] [facility] Chronic Chronic Disease Active Univers neck pain neck pain 1-11 ity of 00:: [place] [facility] Anxiety Anxiety Disease Active Univers disorder disorder 1-11 ity of 00:00: [place] [facility] [id number] DDD Problem Common (degenerat Spirit ceferino disc - CHI disease), [facility] [id number] Attention Problem Comm on deficit Spirit hyperactiv - [facility]I ity disorder 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 disorder Medical without Center prior episode [id number] Osteoporos Problem Com mon is, Spirit unspecifie - CHI d [facility] osteoporos 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 y, Medical unspecifie Center d trigger [id number] Mixed Problem Common hyperlipid Spirit emia [facility] [id number] Stage 3a Problem Comm on chronic Spirit kidney - CHI disease [facility] Atheroscle 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 Spirit right right - CHI renal renal St artery [facility] [id number] 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 - [facility] joints, St unspecifie 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 - [facility] ncy of atheroscle intestine [facility] [id number] Elevated Problem Comm on liver [facility] enzymes [facility] Thrombocyt Thrombocyt Problem C ommon osis osis [facility] [id number] Essential Problem Com mon thrombocyt Spirit osis [facility] Chronic Chronic Problem Common fatigue fatigue [facility] syndrome [facility] Iron Fe Problem Common deficiency deficiency Sp julio césar anemia anemia - [facility] [id number] Primary Problem Comm on osteoarthr Spirit itis of - CHI left knee [facility] [id number] Primary Problem Comm on osteoarthr Spirit itis of [facility]I right knee [facility] Anemia in Anemia in Problem Com mon chronic chronic Spirit kidney kidney - CHI disease disease [facility] Hypercalce Hypercalce Problem C ommon shahnaz shahnaz [facility] [id number] Shoulder Problem Comm on arthritis Spirit [facility] Anemia due Anemia due Problem C ommon to blood to blood [facility] loss loss [facility] [id number] SVT Problem Common (supravent Spirit ricular [facility] tachycardi [facility] Supraventr Supraventr Disease Active U nivers icular icular ity of dysrhythmi dysrhythmi [place] [facility] [place] Chronic Chronic Disease Active Univers low back low back ity of pain pain [facility] Branch Allergies, Adverse Reactions, Alerts Allergy Allergy Status Severity Reaction(s) Onset Inactive Treating Comm ents Source Name Type Date Date Clinician Haloperi Propensi Active Anaphylaxis U nivers dol ty to 2-04 ity of Lactate adverse 00:00: [place] reaction 00 Medical s Branch Etodolac Propensi Active Anaphylaxis 0 U nivers ty to 2-04 ity of adverse 00:00: [place] reaction 00 Medical s Branch HALOPERI DRUG Active Anaphylaxis Uni vers DOL INGREDI 2-04 ity of LACTATE 00:00: [place] 00 Medical Branch ETODOLAC DRUG Active Anaphylaxis Uni vers INGREDI 2-04 ity of 00:00: [place] 00 Medical Branch Pregabal Propensi Active Hallucinatio 2014-06 Univers in ty to ns 2-28 ity of adverse 00:00: [place] reaction 00 Medical s Branch PREGABAL DRUG Active Hallucinates 2014-06 Un raffi IN INGREDI 2 ity of 00:00: [place] 00 Medical Branch Nsaids Propensi Active Anaphylaxis 2014-06 [place] ty to 2-23 Health adverse 00:00: reaction 00 s Meloxica Propensi Active Other - See 2014-06 Seizures Univers m ty to comments 2 ity of adverse 00:00: [place] reaction 00 [...] Univer s Im (Hcl ty to pyramidal 2- ity of Salt) adverse effects 00:00: [place] [...] Branch Y DRUG) NALBUPHI DRUG Active Anaphylaxis 2015-1 Uni vers NE HCL INGREDI 2-23 ity of 00:00: [place] 00 Medical Branch VISTARIL DRUG Active EP Effects 2015- Univ ers IM (HCL 2-23 ity of SALT) 00:00: [place] [address] Medical Branch [address] Drug Active throat Common allergy [facility] hydroxyz hydroxyz Active seizure Commo n ine ine [facility] [address]45 Drug Active throat [facility]al [facility]abal Active throat Common [facility] etodolac etodolac Active throat Common closes [facility] ibuprofe ibuprofe Active throat Common n n [facility] meloxica meloxica Active seizure Commo n m m [facility] Family History Family Member Diagnosis Comments Start Date Stop Date Source Natural father Cancer [facility] Natural mother Hypertension [facility] Social History Social Habit Start Date Stop Date Quantity Comments Source History of tobacco Passive smoker Un iversity of use [place] [facility] History SDOH Social Unive rsity of [facility] Med ical Together Branch History SDOH Social Unive rsity of [facility] Medical Branch History SDOH Social Unive rsity of [facility] Medical Membership Branch History SDAZ Social Unive rsity of [facility] Medical Meetings Branch Exposure to 2022-08-02 2022-08-12 Not sure [facility] SARS-CoV-2 (event) 00:00:00 13:18:00 Tobacco use and 2022-08-12 2022-08-12 Smokeless [facility] exposure 00:00:00 00:00:00 tobacco non-user Alcohol intake 2022-08-12 2022-08-12 Lifetime [facility] 00:00:00 00:00:00 non-drinker (finding) Tobacco Comment 2022-06-15 2022-06-15 stopped Universit y of 00:00:00 00:00:00 02/22/2013 [place] [facility] History SDOH 2022-06-14 2022-06-14 1 University o f Alcohol Frequency 00:00:00 00:00:00 [facility] edical Branch History SDOH 2022-06-14 2022-06-14 0 University o f Alcohol Std Drinks 00:00:00 00:00:00 [place] [facility] History SDOH 2022-06-14 2022-06-14 1 University o f Alcohol Binge 00:00:00 00:00:00 [place] [facility] History SDOH Social 2022-06-14 2022-06-14 3 Unive rsity of Connections Phone 00:00:00 00:00:00 [facility] edical Branch History SDOH Social 2022-06-14 2022-06-14 5 Unive rsity of Connections Living 00:00:00 00:00:00 [place] [facility] History SDOH 2022-06-14 2022-06-14 0 University o f Physical Activity 00:00:00 00:00:00 [facility] edical DPW Branch History SDAZ 2022-06-14 2022-06-14 0 University o f Physical Activity 00:00:00 00:00:00 [facility] edical MPS Branch History SDOH 2022-06-14 2022-06-14 5 University o f Financial 00:00:00 00:00:00 [place] [facility] History SDAZ Food 2022-06-14 2022-06-14 1 Univers ity of Worry 00:00:00 00:00:00 [place] [facility] History SDOH Food 2022-06-14 2022-06-14 1 Univers ity of Scarcity 00:00:00 00:00:00 [place] [facility] History SDAZ 2022-06-14 2022-06-14 2 University o f Transport Med 00:00:00 00:00:00 [place] [facility] History SDAZ 2022-06-14 2022-06-14 2 University o f Transport Non-Med 00:00:00 00:00:00 [facility] edical Branch Sex Ass[birth year] At [birth year] [facility] 00:00:00 00:00:00 Smoking Status Start Date Stop Date Source Never smoked tobacco [facility] Ex-smoker 2022-06-15 00:00:00 2022-06-15 00:00:00 [facility] Medical Branch Medications Ordered Filled Start Stop Current Ordering Indication Dosage Frequency Signature Comments Components Source Medication Medication Date Date Medication? Clinician (SIG) Name Name metoprolol Yes 50mg Take 50 mg U T tartrate 02 by mouth. Health (Lopressor) 13:32: 25 MG 19 tablet dicyclomine 2022-0 Yes [facility] (Bentyl) 20 2-27 Health MG tablet 00:00: 00 dexlansopra 2022-0 Yes UT zole 2-26 Health (Dexilant) 00:00: [address] 00 capsule famotidine 2022-0 Yes [facility] (Pepcid) 40 2-26 Health MG tablet 00:00: 00 dexmethylph 2022-0 Yes UT enidate XR 2-24 Health (Focalin 00:00: XR) 15 MG 00 24 hr capsule ALPRAZolam 2022-0 Yes [facility] (Xanax) 0.5 2-22 Health MG tablet 00:00: 00 pantoprazol 2022-0 Yes 40mg 40 mg, Univ ers e 1-05 Oral, BID, ity of (PROTONIX) 02:00: First dose [place] tablet 00 on Tue Medical 40 mg 06/16/22 at Branch 1999, Until Discontinu ed, Routine metoprolol 2022-0 Yes 50mg Take 50 mg U nivers tartrate 1-04 by mouth ity of (LOPRESSOR) 15:23: in the [facility] 25 mg 23 morning Medical tablet and 50 mg Branch in the evening. dicyclomine 2022-0 Yes 20mg Take 20 mg Univers 20 mg 1-04 by mouth ity of tablet 15:23: in the [place] [address] morning Medical and 20 mg Branch in the evening. FLUoxetine 2022-0 Yes 40mg Take 40 mg U nivers 40 mg 1-04 by mouth ity of capsule 15:23: in the [place] [address] morning Medical and 40 mg Branch in the evening. OLANZapine 3-0 Yes 1mg Take 1 mg Un raffi 2.5 mg 1-04 by mouth ity of tablet 15:23: in the [place] [address] morning Medical and 1 mg Branch in the evening. ALPRAZolam 2023-0 Yes 1mg Take 1 mg Un raffi (XANAX) 1 1-04 by mouth ity of mg tablet 15:23: in the [place] [address] morning Medical and 1 mg Branch in the evening. metoprolol 3-0 Yes 50mg Take 50 mg U nivers tartrate 1-04 by mouth ity of (LOPRESSOR) 15:23: in the [facility] 25 mg 23 morning Medical tablet and 50 mg Branch in the evening. dicyclomine 2023-0 Yes 20mg Take 20 mg Univers 20 mg 1-04 by mouth ity of tablet 15:23: in the [place] [address] morning Medical and 20 mg Branch in the evening. FLUoxetine 2023-0 Yes 40mg Take 40 mg U nivers 40 mg 1-04 by mouth ity of capsule 15:23: in the [place] [address] morning Medical and 40 mg Branch in the evening. OLANZapine 2023-0 Yes 1mg Take 1 mg Un raffi 2.5 mg 1-04 by mouth ity of tablet 15:23: in the [place] [address] morning Medical and 1 mg Branch in the evening. ALPRAZolam 2023-0 Yes 1mg Take 1 mg Un raffi (XANAX) 1 1-04 by mouth ity of mg tablet 15:23: in the [place] [address] morning Medical and 1 mg Branch in the evening. metoprolol 2023-0 Yes 50mg Take 50 mg U nivers tartrate 1-04 by mouth ity of (LOPRESSOR) 15:23: in the [facility] 25 mg 23 morning Medical tablet and 50 mg Branch in the evening. dicyclomine 2023-0 Yes 20mg Take 20 mg Univers 20 mg 1-04 by mouth ity of tablet 15:23: in the [place] [address] morning Medical and 20 mg Branch in the evening. FLUoxetine 2023-0 Yes 40mg Take 40 mg U nivers 40 mg 1-04 by mouth ity of capsule 15:23: in the [place] [address] morning Medical and 40 mg Branch in the evening. OLANZapine 2023-0 Yes 1mg Take 1 mg Un raffi 2.5 mg 1-04 by mouth ity of tablet 15:23: in the [place] [address] morning Medical and 1 mg Branch in the evening. ALPRAZolam 2023-0 Yes 1mg Take 1 mg Un raffi (XANAX) 1 1-04 by mouth ity of mg tablet 15:23: in the [place] [address] morning Medical and 1 mg Branch in the evening. metoprolol 2023-0 Yes 50mg Take 50 mg U nivers tartrate 1-04 by mouth ity of (LOPRESSOR) 15:23: in the [facility] 25 mg 23 morning Medical tablet and 50 mg Branch in the evening. dicyclomine 2023-0 Yes 20mg Take 20 mg Univers 20 mg 1-04 by mouth ity of tablet 15:23: in the [place] [address] morning Medical and 20 mg Branch in the evening. FLUoxetine 2023-0 Yes 40mg Take 40 mg U nivers 40 mg 1-04 by mouth ity of capsule 15:23: in the [place] [address] morning Medical and 40 mg Branch in the evening. OLANZapine 2023-0 Yes 1mg Take 1 mg Un raffi 2.5 mg 1-04 by mouth ity of tablet 15:23: in the [place] [address] morning Medical and 1 mg Branch in the evening. ALPRAZolam 2023-0 Yes 1mg Take 1 mg Un raffi (XANAX) 1 1-04 by mouth ity of mg tablet 15:23: in the [place] [address] morning Medical and 1 mg Branch in the evening. pantoprazol 2023-0 2023- No 40mg Take 40 mg Univers e -04 01-04 by mouth ity of (PROTONIX) 11:30: 00:00 in the [facility] 40 mg EC 43 :00 morning Medical tablet and 40 mg Branch in the evening. pantoprazol 2023-0 2023- No 40mg Take 40 mg Univers e 06-16 01-04 by mouth ity of (PROTONIX) 11:30: 00:00 in the [facility] 40 mg EC 43 :00 morning Medical tablet and 40 mg Branch in the evening. metoprolol 3-0 Yes 50mg Take 50 mg U nivers tartrate 1-04 by mouth ity of (LOPRESSOR) 11:30: in the [facility] 25 mg 39 morning Medical tablet and 50 mg Branch in the evening. dicyclomine 3-0 Yes 20mg Take 20 mg Univers 20 mg 1-04 by mouth ity of tablet 11:30: in the [place] [address] morning Medical and 20 mg Branch in the evening. FLUoxetine 2023-0 Yes 40mg Take 40 mg U nivers 40 mg 1-04 by mouth ity of capsule 11:30: in the [place] [address] morning Medical and 40 mg Branch in the evening. OLANZapine 2023-0 Yes 1mg Take 1 mg Un raffi 2.5 mg 1-04 by mouth ity of tablet 11:30: in the [place] [address] morning Medical and 1 mg Branch in the evening. ALPRAZolam 2023-0 Yes 1mg Take 1 mg Un raffi (XANAX) 1 1-04 by mouth ity of mg tablet 11:30: in the [place] 39 morning Medical and 1 mg Branch in the evening. pantoprazol 2023-0 Yes 40mg Q.5D Take 40 mg UT e 1-04 by mouth 2 Health (ProtoNix) 00:00: (two) 40 MG EC 00 times a tablet day, in the morning and at bedtime. dexmethylph 2023-0 Yes 15mg Take 1 Univ ers enidate 15 1-04 capsule by ity of mg 24 hr 00:00: mouth in [place] capsule 00 the Medical morning. Branch pantoprazol 2023-0 Yes [id number] 40mg Take 1 Univers e 1-04 tablet by ity of (PROTONIX) 00:00: mouth in [place] as 40 mg EC 00 the Medical tablet morning Branch and 1 tablet in the evening. dexmethylph 2023-0 Yes 15mg Take 1 Univ ers enidate 15 1-04 capsule by ity of mg 24 hr 00:00: mouth in [place] capsule 00 the Medical morning. Branch pantoprazol 2023-0 Yes [id number] 40mg Take 1 Univers e 1-04 tablet by ity of (PROTONIX) 00:00: mouth in [place] as 40 mg EC 00 the Medical tablet morning Branch and 1 tablet in the evening. dexmethylph 2023-0 Yes 15mg Take 1 Univ ers enidate 15 1-04 capsule by ity of mg 24 hr 00:00: mouth in [place] capsule 00 the Medical morning. Branch pantoprazol 2023-0 Yes [id number] 40mg Take 1 Univers e 1-04 tablet by ity of (PROTONIX) 00:00: mouth in [place] as 40 mg EC 00 the Medical tablet morning Branch and 1 tablet in the evening. dexmethylph 2023-0 Yes 15mg Take 1 Univ ers enidate 15 1-04 capsule by ity of mg 24 hr 00:00: mouth in [place] capsule 00 the Medical morning. Branch pantoprazol 2023-0 Yes [id number] 40mg Take 1 Univers e 1-04 tablet by ity of (PROTONIX) 00:00: mouth in [place] as 40 mg EC 00 the Medical tablet morning Branch and 1 tablet in the evening. dexmethylph 2023-0 Yes 15mg Take 1 Univ ers enidate 15 1-04 capsule by ity of mg 24 hr 00:00: mouth in [place] capsule 00 the Medical morning. Branch pantoprazol 2023-0 Yes [id number] 40mg Take 1 Univers e 06-16 tablet by ity of (PROTONIX) 00:00: mouth in [place] as 40 mg EC 00 the Medical tablet morning and 1 tablet in the evening. lactated 2022-0 2022- No 500mL at 100 Unive rs ringers IV 06-1503 mL/hr, 500 it y of infusion 17:15: 17:45 mL, [place] 500 mL 00 :48 Intravenou Medical s, ONCE, 1 Branch dose, On Tue06/15/22 at 1115, Routine dicyclomine 0 Yes 20mg 20 mg, [facility] ers (BENTYL) 06-15 Oral, BID, ity o f tablet 20 15:00: First dose [place] mg 00 on [facility] 06/15/22 at [place] 0900, Until Discontinu ed, Routine dicyclomine 0 Yes 20mg 20 mg, [facility] ers (BENTYL) 06-15 Oral, BID, ity o f tablet 20 15:00: First dose [place] mg 00 on [facility] 06/15/22 at [place] 0900, Until Discontinu ed, Routine pantoprazol 0 Yes 40mg 40 mg, Univ ers e 06-15 Slow IV ity of (PROTONIX) 02:00: Push, [place] injection 00 Q12H, Medical 40 mg First dose Branch on Tue06/14/22 at 1999, Until Discontinu ed pantoprazol 2022-0 2022- No 40mg 40 mg, Uni vers e 06-15 Slow IV ity of (PROTONIX) 02:00: 20:37 Push, [place] injection 00 :34 Q12H, Medical 40 mg First dose Branch on Tue06/14/22 at 1999, Until Discontinu ed alum-mag 2022-0 Yes 30mL 30 mL, Univers hydroxide-s 06-14 Oral, ity of imeth 21:45: [place], [place] (MAALOX 09 Starting Medical PLUS / on Tue MAG-AL 06/14/22 at PLUS) 1545, 200-200-20 Until mg/5 mL Discontinu suspension ed, 30 mL Routine, Indigestio n alum-mag 2022-0 Yes 30mL 30 mL, Univers hydroxide-s 02 Oral, ity of imeth 21:45: [place] (MA[place]OX 09 Starting Medical PLUS / on Tue Branch MAG-AL 06/14/22 at PLUS) 1545, 200-200-20 Until mg/5 mL Discontinu suspension ed, 30 mL Routine, Indigestio n NaCl 0.9% 2022-0 Yes 10mL 10 mL, Univer s (NS) 06-14 Slow IV ity of injection 21:43: Push, [place], [place] 10 mL 50 Starting Medical on Tue Branch 06/14/22 at 1543, Until Discontinu ed, Routine, line maintenanc e NaCl 0.9% 3-0 Yes 10mL 10 mL, Univer s (NS) 06-14 Slow IV ity of injection 21:43: Push, PRN, [place] 10 mL 50 Starting Medical on Tue Branch 06/14/22 at 1543, Until Discontinu ed, Routine, line maintenanc e lidocaine 2023-0 Yes 5mL 5 mL, Univers 1% (PF) 06-14 Subcutaneo ity of (XYLOCAINE) 21:43: us, PRN, [place] injection 5 49 Starting Medi sondra mL on Tue Branch 06/14/22 at 1543, Until Discontinu ed, Routine, Local anesthesia lidocaine 2022-0 Yes 5mL 5 mL, Univers 1% (PF) 06-14 Subcutaneo ity of (XYLOCAINE) 21:43: us, PRN, [place] injection 5 49 Starting Medi sondra mL on Tue Branch 06/14/22 at 1543, Until Discontinu ed, Routine, Local anesthesia lactated 2022-0 202- No 500mL at 999 Unive rs ringers IV 06-1402 mL/hr, 500 it y of infusion 18:45: [...] [place] mg 00 :00 dose, On Medical [facility] 06/14/22 Branch at 1200, Routine FLUoxetine 2023-0 Yes 40mg 40 mg, Unive rs (PROZAC) 1-02 Oral, BID, ity o f capsule 40 14:00: First dose [place] mg 00 on [facility] 06/14/22 at Branch 0800, Until Discontinu ed, Routine OLANZapine 2023-0 Yes 1.25mg 1.25 mg, U nivers (ZyPREXA) 1-02 Oral, BID, ity of tablet 1.25 14:00: First dose [place] mg 00 on [facility] 06/14/22 at Branch 0800, Until Discontinu ed, Routine metoprolol 2023-0 Yes 50mg 50 mg, Unive rs tartrate 1-02 Oral, BID, ity o f (LOPRESSOR) 14:00: First dose [place] tablet 50 00 on [facility] 06/14/22 at Branch 0800, Until Discontinu ed, Routine ALPRAZolam 2023-0 Yes 1mg 1 mg, Univer s (XANAX) 1- Oral, BID, ity of tablet 1 mg 14:00: First dose [place] 00 on [facility] 06/14/22 at Branch 0800, Until Discontinu ed, Routine FLUoxetine 2023-0 Yes 40mg 40 mg, Unive rs (PROZAC) 1- Oral, BID, ity o f capsule 40 14:00: First dose [place] mg 00 on [facility] 06/14/22 at Branch 0800, Until Discontinu ed, Routine OLANZapine 2023-0 Yes 1.25mg 1.25 mg, U nivers (ZyPREXA) 1-02 Oral, BID, ity of tablet 1.25 14:00: First dose [place] mg 00 on [facility] 06/14/22 at Branch 0800, Until Discontinu ed, Routine metoprolol 2023-0 Yes 50mg 50 mg, Unive rs tartrate 1-02 Oral, BID, ity o f (LOPRESSOR) 14:00: First dose [place] tablet 50 00 on [facility] 06/14/22 at Branch 0800, Until Discontinu ed, Routine ALPRAZolam 2023-0 Yes 1mg 1 mg, Univer s (XANAX) 06-14 Oral, BID, ity of tablet 1 mg 14:00: First dose [place] 00 on [facility] Medical 06/14/22 at Branch 0800, Until Discontinu ed, Routine iron 2022- No 200mg 200 mg, IV Unive rs sucrose 06-14 Infusion, ity of (VENOFER) 09:30: 14:12 ONCE, [place] 200 mg in 00 :00 Administer Medi sondra NaCl 0.9% over 2.5 Branch (NS) 100 mL Hours, On infusion Tue06/14/22 at 0330, For 1 dose KCL 2022- [...] dose, On Tue06/14/22 at 0130, STAT guaiFENesin 0 Yes 200mg 200 mg, Un raffi 100 mg/5 mL 06-14 Oral, ity of solution 07:23: Q4HPRN, [place] 200 mg 38 Starting Medical on Tue [place] 06/14/22 at 0123, Until Discontinu ed, Routine, Cough guaiFENesin 2022-0 Yes 200mg 200 mg, Un raffi 100 mg/5 mL 06-14 Oral, ity of solution 07:23: Q4HPRN, [place] 200 mg 38 Starting Medical on [facility] 06/14/22 at 0123, Until Discontinu ed, Routine, Cough pantoprazol 3-0 2023- No 40mg 40 mg, Uni vers e 06-14 Slow IV ity of (PROTONIX) 06:15: 06:38 Push, [place] injection 00 :00 Q12H, Medical 40 mg First dose Branch on Tue06/14/22 at 0015, Until Discontinu ed acetaminoph 2022-0 Yes 650mg 650 mg, Un raffi en 02 Oral, ity of (TYLENOL) 06:14: Q6HPRN, [place] tablet 650 56 Starting Medic al mg on Tue Branch 06/14/22 at 0014, Until Discontinu ed, Routine, Pain (scale 1-3) acetaminoph 2022-0 Yes 650mg 650 mg, Un raffi en 02 Oral, ity of (TYLENOL) 06:14: Q6HPRN, [place] tablet 650 56 Starting Medic al mg on Tue Branch 06/14/22 at 0014, Until Discontinu ed, Routine, Pain (scale 1-3) metoprolol 2022-0 Yes 50mg Take 50 mg U nivers tartrate 06-14 by mouth ity of (LOPRESSOR) 00:44: in the [facility] 25 mg 38 morning Medical tablet and 50 mg Branch in the evening. dicyclomine 2022-0 Yes 20mg Take 20 mg Univers 20 mg 06-14 by mouth ity of tablet 00:44: in the [place] [address] morning Medical and 20 mg Branch in the evening. FLUoxetine 2022-0 Yes 40mg Take 40 mg U nivers 40 mg 06-14 by mouth ity of capsule 00:44: in the [place] [address] morning Medical and 40 mg Branch in the evening. OLANZapine 3-0 Yes 1mg Take 1 mg Un raffi 2.5 mg 02 by mouth ity of tablet 00:44: in the [place] [address] morning Medical and 1 mg Branch in the evening. pantoprazol 3-0 Yes 40mg Take 40 mg Univers e 02 by mouth ity of (PROTONIX) 00:44: in the [place] 40 mg EC 38 morning Medical tablet and 40 mg Branch in the evening. ALPRAZolam 3-0 Yes 1mg Take 1 mg Un raffi (XANAX) 1 02 by mouth ity of mg tablet 00:44: in the [place] [address] morning Medical and 1 mg Branch in the evening. metoprolol 2022-0 Yes 50mg Take 50 mg U nivers tartrate -02 by mouth ity of (LOPRESSOR) 00:44: in the [facility] s 25 mg 38 morning Medical tablet and 50 mg Branch in the evening. dicyclomine 3-0 Yes 20mg Take 20 mg Univers 20 mg 1-02 by mouth ity of tablet 00:44: in the [place] [address] morning Medical and 20 mg Branch in the evening. FLUoxetine 2022-0 Yes 40mg Take 40 mg U nivers 40 mg -02 by mouth ity of capsule 00:44: in the [place] [address] morning Medical and 40 mg Branch in the evening. OLANZapine 2022-0 Yes 1mg Take 1 mg Un raffi 2.5 mg -02 by mouth ity of tablet 00:44: in the [place] [address] morning Medical and 1 mg Branch in the evening. pantoprazol 2022-0 Yes 40mg Take 40 mg Univers e 02 by mouth ity of (PROTONIX) 00:44: in the [place] 40 mg EC 38 morning Medical tablet and 40 mg Branch in the evening. ALPRAZolam 2022-0 Yes 1mg Take 1 mg Un raffi (XANAX) 1 -02 by mouth ity of mg tablet 00:44: in the [place] [address] morning Medical and 1 mg Branch in the evening. clonazePAM 2022-0 2023- No 1mg Take 1 mg U nivers (KLONOPIN) 06-14- by mouth ity of 1 mg tablet 00:44: 00:00 as needed. [place] 38 :00 [facility] Branch clonazePAM 2022-0 2022- No 1mg Take 1 mg U nivers (KLONOPIN) 06-14 by mouth ity of 1 mg tablet 00:44: 00:00 as needed. [place] 38 :00 Medical Branch Lidocaine Lidocaine 2021-06 No 10mg Com 08-01 Spirit 00:00: - [facility] Kenalog Kenalog 2021-06 No 40mg Common (Triamcinol (Triamcinol 2-19 S pirit one) one) 00:00: - [facility] Lidocaine Lidocaine 2021-06 No 10mg Com tue 2- Spirit 00:00: - [facility] Kenalog Kenalog 2021-06 No 40mg Common (Triamcinol (Triamcinol 2-19 S pirit one) one) 00:00: - CHI 00 [facility] Lidocaine Lidocaine 2021-06 No 10mg Com mon 2-19 Spirit 00:00: - [facility]I 00 [facility] Kenalog Kenalog 2021-06 No 40mg Common (Triamcinol (Triamcinol 2-19 S pirit one) one) 00:00: - [facility]I 00 [facility] Kenalog Kenalog 2021-06 No 40mg Common (Triamcinol (Triamcinol 2-08 S pirit one) one) 00:00: - CHI 00 [facility] Kenlaur[place] Kenalog 2021-06 No 40mg Common (Triamcinol (Triamcinol 2-08 S pirit one) one) 00:00: - [facility]I 00 [facility] [place] Kenalog 2021-06 No 40mg Common (Triamcinol (Triamcinol 2-08 S pirit one) one) 00:00: - [facility]I 00 [facility] [place] Kenalog 2021-06 No 40mg Common (Triamcinol (Triamcinol 2-08 S pirit one) one) 00:00: - CHI 00 [facility] [place] Kenalog 2021-06 No 40mg Common (Triamcinol (Triamcinol 2-08 S pirit one) one) 00:00: - [facility]I 00 [facility] [place] Kenalog 2021-06 No 40mg Common (Triamcinol (Triamcinol 1-09 S pirit one) one) 00:00: - CHI 00 [facility] [place] Kenalog 2021-06 No 40mg Common (Triamcinol (Triamcinol 1-09 S pirit one) one) 00:00: - [facility]I 00 [facility] Kenalog Kenalog 2021-06 No 40mg Common (Triamcinol (Triamcinol 1-09 S pirit one) one) 00:00: - [facility]I 00 [facility] Kenalog Kenalog 2021-06 No 40mg Common (Triamcinol (Triamcinol 1-09 S pirit one) one) 00:00: - [facility]I 00 [facility] 2021-06 No 40mg Common (Triamcinol (Triamcinol 1-09 S pirit one) one) 00:00: - [facility]I 00 [facility] 2021-06 No 40mg Common (Triamcinol (Triamcinol 1-09 S pirit one) one) 00:00: - [facility]I 00 [facility] 2021-06 No 40mg Common (Triamcinol (Triamcinol 1-09 S pirit one) one) 00:00: - [facility]I 00 [facility] 2021-06 No 40mg Common (Triamcinol (Triamcinol 0-12 S pirit one) one) 00:00: - [facility]I 00 [facility] 2021-06 No 40mg Common (Triamcinol (Triamcinol 0-12 S pirit one) one) 00:00: - [facility]I 00 [facility] 2021-06 No 40mg Common (Triamcinol (Triamcinol 0-12 S pirit one) one) 00:00: - [facility]I 00 [facility] 2021-06 No 40mg Common (Triamcinol (Triamcinol 0-12 S pirit one) one) 00:00: - [facility]I 00 [facility] 2021-06 No 40mg Common (Triamcinol (Triamcinol 0-12 S pirit one) one) 00:00: - [facility]I 00 [facility] 2021-06 No 40mg Common (Triamcinol (Triamcinol 0-12 S pirit one) one) 00:00: - [facility]I 00 [facility] 2021-06 No 40mg Common (Triamcinol (Triamcinol 0-12 S pirit one) one) 00:00: - [facility]I 00 [facility] 2021-06 No 40mg Common (Triamcinol (Triamcinol 0-12 S pirit one) one) 00:00: - [facility]I 00 [facility] Eugenia Kenalog 2022-1 No 40mg Common (Triamcinol (Triamcinol 0-12 S pirit one) one) 00:00: - [facility]I 00 [facility] Eugenia Delgadilloalog 2021-0 No 40mg Common (Triamcinol (Triamcinol 4-26 S pirit one) one) 00:00: - [facility]I 00 [facility] Bupivicaine Bupivicaine 2021-0 No 2.5mg Common [place] 4-26 Spirit 00:00: - [facility]I 00 [facility] Eugenia Delgadilloalog 0 No 40mg Common (Triamcinol (Triamcinol 4-26 S pirit one) one) 00:00: - [facility]I 00 [facility] Bupivicaine Bupivicaine 2021-0 No 2.5mg Common [place] Prospect 4-26 Spirit 00:00: - [facility]I 00 [facility] Eugenia Delgadilloalog 0 No 40mg Common (Triamcinol (Triamcinol 4-26 S pirit one) one) 00:00: - [facility]I 00 [facility] Bupivicaine Bupivicaine 2021-0 No 2.5mg Common [place] Prospect 4-26 Spirit 00:00: - [facility]I 00 [facility] Eugenia Kenalog 2021-0 No 40mg Common (Triamcinol (Triamcinol 4-26 S pirit one) one) 00:00: - [facility]I 00 [facility] Bupivicaine Bupivicaine 2021-0 No 2.5mg Common [place] Prospect 4-26 Spirit 00:00: - [facility]I 00 [facility] Eugenia Delgadilloalog 2021-0 No 40mg Common (Triamcinol (Triamcinol 4-26 S pirit one) one) 00:00: - [facility]I 00 [facility] Bupivicaine Bupivicaine 2021-0 No 2.5mg Common [place] Prospect 4-26 Spirit 00:00: - [facility]I 00 [facility] Eugenia Kenalog 2021-0 No 40mg Common (Triamcinol (Triamcinol 4-26 S pirit one) one) 00:00: - [facility]I 00 [facility] Bupivicaine Bupivicaine 2021-0 No 2.5mg Common [place] Prospect 4-26 Spirit 00:00: - [facility]I 00 [facility] Kenalog Kenalog 2-0 No 40mg Common (Triamcinol (Triamcinol 4-26 S pirit one) one) 00:00: - CHI 00 [facility] Bupivicaine Bupivicaine 2-0 No 2.5mg Common [place] Prospect 4-26 Spirit 00:00: - [facility]I 00 [facility] Kenalog Kenalog 2021-0 No 40mg Common (Triamcinol (Triamcinol 4-26 S pirit one) one) 00:00: - CHI 00 [facility] Bupivicaine Bupivicaine 2-0 No 2.5mg Common [place] Prospect 4-26 Spirit 00:00: - [facility]I 00 [facility] Kenalog Kenalog 2021-0 No 40mg Common (Triamcinol (Triamcinol 4-26 S pirit one) one) 00:00: - CHI 00 [facility] Bupivicaine Bupivicaine 2-0 No 2.5mg Common [place] Prospect 4-26 Spirit 00:00: - CHI 00 [facility] Kenalog Kenalog 2-0 No 40mg Common (Triamcinol (Triamcinol 4-26 S pirit one) one) 00:00: - CHI 00 [facility] Bupivicaine Bupivicaine 2-0 No 2.5mg Common [place] Prospect 4-26 Spirit 00:00: - [facility]I 00 [facility] Kenalog Kenalog 2-0 No 40mg Common (Triamcinol (Triamcinol 4-26 S pirit one) one) 00:00: - CHI 00 [facility] Bupivicaine Bupivicaine 2-0 No 2.5mg Common [place] Prospect 4-26 Spirit 00:00: - CHI 00 [facility] Kenalog Kenalog 2-0 No 40mg Common (Triamcinol (Triamcinol 4-26 S pirit one) one) 00:00: - CHI 00 [facility] Bupivicaine Bupivicaine 2-0 No 2.5mg Common [place] Prospect 4-26 Spirit 00:00: - CHI 00 [facility] Kenalog Kenalog 2021-0 No 40mg Common (Triamcinol (Triamcinol 4-26 S pirit one) one) 00:00: - [facility]I 00 [facility] Bupivicaine Bupivicaine 2021-0 No 2.5mg Common [place] Prospect 4-26 Spirit 00:00: - [facility]I 00 [facility] Kenalog Kenalog 2021-0 No 40mg Common (Triamcinol (Triamcinol 4-26 S pirit one) one) 00:00: - [facility]I 00 [facility] Bupivicaine Bupivicaine 2021-0 No 2.5mg Common [place] Prospect 4-26 Spirit 00:00: - [facility]I 00 [facility] Kenalog Kenalog 2021-0 No 40mg Common (Triamcinol (Triamcinol 4-26 S pirit one) one) 00:00: - [facility]I 00 [facility] Bupivicaine Bupivicaine 2021-0 No 2.5mg Common [place] Prospect 4-26 Spirit 00:00: - [facility]I 00 [facility] Kenalog Kenalog 2021-0 No 40mg Common (Triamcinol (Triamcinol 4-26 S pirit one) one) 00:00: - [facility]I 00 [facility] Bupivicaine Bupivicaine 2021-0 No 2.5mg Common [place] Prospect 4-26 Spirit 00:00: - [facility]I 00 [facility] Kenalog Kenalog 2021-0 No 40mg Common (Triamcinol (Triamcinol 4-26 S pirit one) one) 00:00: - [facility]I 00 [facility] Bupivicaine Bupivicaine 2021-0 No 2.5mg Common [place] Prospect 4-26 Spirit 00:00: - [facility]I 00 [facility] Kenalog Kenalog 2021-0 No 40mg Common (Triamcinol (Triamcinol 4-26 S pirit one) one) 00:00: - [facility]I 00 [facility] Bupivicaine Bupivicaine 2-0 No 2.5mg Common [place] Prospect 4-26 Spirit 00:00: - [facility]I 00 [facility] Kenalog Kenalog 2021-0 No 40mg Common (Triamcinol (Triamcinol 4-26 S pirit one) one) 00:00: - [facility]I 00 [facility] Bupivicaine Bupivicaine 2-0 No 2.5mg Common [place] Prospect 4-26 Spirit 00:00: - [facility]I 00 [facility] Kenalog Kenalog 2-0 No 40mg Common (Triamcinol (Triamcinol 4-26 S pirit one) one) 00:00: - CHI 00 [facility] Bupivicaine Bupivicaine 2-0 No 2.5mg Common [place] Prospect 4-26 Spirit 00:00: - [facility]I 00 [facility] methylPREDN methylPREDN 2-0 No methylPRED ISolone 4 [...] Common 2-16 Spirit 00:00: - CHI 00 [facility] Synvisc Synvisc 2020-1 No 16mg Common 2-16 Spirit 00:00: - [facility] 00 [facility] Synvisc Synvisc 2020-1 No 16mg Common 2-16 Spirit 00:00: - [facility]I 00 [facility] Synvisc Synvisc 2020-1 No 16mg Common 2-16 Spirit 00:00: - [facility]I 00 [facility] Synvisc Synvisc 2020-1 No 16mg Common 2-16 Spirit 00:00: - [facility]I 00 [facility] Synvisc Synvisc 2020-1 No 16mg Common 2-16 Spirit 00:00: - CHI 00 [facility] Synvisc Synvisc 2020-1 No 16mg Common 2-16 Spirit 00:00: - [facility]I 00 [facility] Synvisc Synvisc 2020-06 No 16mg Common 2-16 Spirit 00:00: - [facility]I 00 [facility] Synvisc Synvisc 2020-06 No 16mg Common 2-16 Spirit 00:00: - [facility]I 00 [facility] Synvisc Synvisc 2020-06 No 16mg Common 2-16 Spirit 00:00: - [facility]I 00 [facility] Synvisc Synvisc 2020-06 No 16mg Common 2-16 Spirit 00:00: - [facility]I 00 [facility] Synvisc Synvisc 2020-06 No 16mg Common 2-16 Spirit 00:00: - [facility]I 00 [facility] Synvisc Synvisc 2020-06 No 16mg Common 2-16 Spirit 00:00: - [facility]I 00 [facility] Synvisc Synvisc 2020-06 No 16mg Common 2-16 Spirit 00:00: - [facility]I 00 [facility] Synvisc Synvisc 2020-06 No 16mg Common 2-16 Spirit 00:00: - [facility]I 00 [facility] Synvisc Synvisc 2020-06 No 16mg Common 2-16 Spirit 00:00: - [facility] 00 [facility] Synvisc Synvisc 2020-06 No 16mg Common 2-16 Spirit 00:00: - [facility] 00 [facility] Synvisc Synvisc 2020-06 No 16mg Common 2-16 Spirit 00:00: - [facility] 00 [facility] Synvisc Synvisc 2020-06 No 16mg Common 2-16 Spirit 00:00: - [facility]I 00 [facility] Synvisc Synvisc 2020-06 No 16mg Common 2-16 Spirit 00:00: - [facility] 00 [facility] Synvisc Synvisc 2020- No 16mg Common 2-16 Spirit 00:00: - [facility]I 00 [facility] Synvisc Synvisc 2020-06 No 16mg Common 2-16 Spirit 00:00: - [facility] 00 [facility] Synvisc Synvisc 2020-06 No 16mg Common 2-16 Spirit 00:00: - [facility] 00 [facility] Synvisc Synvisc 2020- No 16mg Common 2-16 Spirit 00:00: - [facility] 00 [facility] Synvisc Synvisc 2020- No 16mg Common 2- Spirit 00:00: - [facility]I 00 [facility] Synvisc Synvisc 2020- No 16mg Common 2- Spirit 00:00: - [facility]I 00 [facility] Synvisc Synvisc 2020- No 16mg Common 2- Spirit 00:00: - [facility] 00 [facility] Synvisc Synvisc 2020- No 16mg Common 2- Spirit 00:00: - [facility]I 00 [facility] Synvisc Synvisc 2020- No 16mg Common 2- Spirit 00:00: - [facility] 00 [facility] Synvisc Synvisc 2020- No 16mg Common 2- Spirit 00:00: - [facility] 00 [facility] Synvisc Synvisc 2020- No 16mg Common 2- Spirit 00:00: - [facility]I 00 [facility] Synvisc Synvisc 2020- No 16mg Common 2- Spirit 00:00: - [facility]I 00 [facility] Synvisc Synvisc 2020- No 16mg Common 2- Spirit 00:00: - [facility] 00 [facility] Synvisc Synvisc 2020- No 16mg Common 2- Spirit 00:00: - [facility] 00 [facility] Synvisc Synvisc 2020- No 16mg Common 2- Spirit 00:00: - [facility] 00 [facility] Synvisc Synvisc 2020- No 16mg Common 2- Spirit 00:00: - [facility] 00 [facility] Synvisc Synvisc 2020- No 16mg Common 2- Spirit 00:00: - [facility] 00 [facility] Synvisc Synvisc 2020- No 16mg Common 2- Spirit 00:00: - [facility] 00 [facility] Synvisc Synvisc 2020- No 16mg Common 2- Spirit 00:00: - [facility] 00 [facility] Synvisc Synvisc 2020-1 No 16mg Common 2- Spirit 00:00: - [facility] 00 [facility] Synvisc Synvisc 2020-06 No 16mg Common 2- Spirit 00:00: - [facility] 00 [facility] Synvisc Synvisc 2020- No 16mg Common 2- Spirit 00:00: - [facility] 00 [facility] Synvisc Synvisc 2020- No 16mg Common 2- Spirit 00:00: - [facility] 00 [facility] Synvisc Synvisc 2020- No 16mg Common 2- Spirit 00:00: - [facility]I 00 [facility] Synvisc Synvisc 2020-06 No 16mg Common 2- Spirit 00:00: - [facility] 00 [facility] Synvisc Synvisc 2020-06 No 16mg Common 2- Spirit 00:00: - [facility] 00 [facility] Synvisc Synvisc 2020-06 No 16mg Common 2- Spirit 00:00: - [facility] 00 [facility] Synvisc Synvisc 2020- No 16mg Common 2- Spirit 00:00: - [facility] 00 [facility] Synvisc Synvisc 2020-06 No 16mg Common 2- Spirit 00:00: - [facility] 00 [facility] Synvisc Synvisc 2020- No 16mg Common 2- Spirit 00:00: - [facility]I 00 [facility] Synvisc Synvisc 2020-06 No 16mg Common 2- Spirit 00:00: - [facility] 00 [facility] Synvisc Synvisc 2020- No 16mg Common 2- Spirit 00:00: - [facility]I 00 [facility] Synvisc Synvisc 2020- No 16mg Common 2- Spirit 00:00: - [facility] 00 [facility] Synvisc Synvisc 2020- No 16mg Common 2- Spirit 00:00: - [facility] 00 [facility] Synvisc Synvisc 2020- No 16mg Common 2- Spirit 00:00: - [facility] 00 [facility] Synvisc Synvisc 2020- No 16mg Common 2-02 Spirit 00:00: - [facility] 00 [facility] Synvisc Synvisc 2020- No 16mg Common 2- Spirit 00:00: - [facility] 00 [facility] Synvisc Synvisc 2020- No 16mg Common 2- Spirit 00:00: - [facility] 00 [facility] Synvisc Synvisc 2020-06 No 16mg Common 2- Spirit 00:00: - [facility] 00 [facility] Synvisc Synvisc 2020-06 No 16mg Common 2- Spirit 00:00: - [facility] 00 [facility] Synvisc Synvisc 2020- No 16mg Common 2- Spirit 00:00: - [facility] 00 [facility] Synvisc Synvisc 2020-06 No 16mg Common 2- Spirit 00:00: - [facility] 00 [facility] Synvisc Synvisc 2020- No 16mg Common 2- Spirit 00:00: - [facility] 00 [facility] Synvisc Synvisc 2020-06 No 16mg Common 2- Spirit 00:00: - [facility] 00 [facility] Synvisc Synvisc 2020- No 16mg Common 2- Spirit 00:00: - [facility] 00 [facility] Synvisc Synvisc 2020-06 No 16mg Common 2- Spirit 00:00: - [facility] 00 [facility] Synvisc Synvisc 2020- No 16mg Common 2- Spirit 00:00: - [facility] 00 [facility] Synvisc Synvisc 2020-06 No 16mg Common 2- Spirit 00:00: - [facility] 00 [facility] Synvisc Synvisc 2020- No 16mg Common 2- Spirit 00:00: - [facility] 00 [facility] Synvisc Synvisc 2020- No 16mg Common 2- Spirit 00:00: - [facility] 00 [facility] Synvisc Synvisc 2020- No 16mg Common 2- Spirit 00:00: - [facility] 00 [facility] Synvisc Synvisc 2020- No 16mg Common 2- Spirit 00:00: - [facility] 00 [facility] Xarelto 20 Xarelto 20 2020- No 1{table [...] f 1 mg tablet 13:28: as needed. [address] metoprolol Yes 25mg Take 25 mg U nivers tartrate 6-15 by mouth ity of (LOPRESSOR) 13:28: [place] Medical tablet Branch dicyclomine Yes 20mg Take 20 mg Univers 20 mg 6-15 by mouth ity of tablet 13:28: daily. [place] [address] Medical Branch FLUoxetine Yes 40mg Take 40 mg U nivers (PROZAC) 40 6-15 by mouth ity of mg capsule 13:28: daily. [place] [address] Medical Branch OLANZapine Yes 2.5mg Take 2.5 Un raffi 2.5 mg 6-15 mg by ity of tablet 13:28: mouth 2 [place] [address] (two) Medical times Branch daily. desonide Yes [...] Tartrate Tartrate [place] with food S pirit [facility] Dicyclomine Dicyclomine Yes [place] TAKE 1 Common HCl HCl [place] TABLET BY [facility] MOUTH - CHI TWICE St DAILY [facility] Premarin Premarin Yes [place] 1 tablet C [facility] Hydrochloro Hydrochloro Yes Nirmal 1 tablet Common thiazide thiazide [place] in the Spir it morning [facility] Adderall Adderall Yes N[place] 1 tablet C ommon [facility] Lansoprazol Lansoprazol Yes Nirmal 1 capsule Common e e [facility] Clonazepam Clonazepam Yes Nirmal 1 tablet Common [facility] Duloxetine Duloxetine Yes Nirmal TK ONE C Common HCl HCl [place] PO BID Spirit [facility] Adderall 30 Adderall 30 No [...] [facility] OVER 65 OVER 65 14:18:00 [facility] FLUZONE HIGH DOSE FLUZONE HIGH DOSE 2022-05-20 Completed [facility] OVER 65 OVER 65 14:18:00 - [facility] FLUZONE HIGH DOSE FLUZONE HIGH DOSE 2022-05-20 Completed [facility] OVER 65 OVER 65 14:18:00 [facility] FLUZONE HIGH DOSE FLUZONE HIGH DOSE 2022-05-20 Completed [facility] OVER 65 OVER 65 14:18:00 - [facility] FLUZONE HIGH DOSE FLUZONE HIGH DOSE 2022-05-20 Completed [facility] OVER 65 OVER 65 14:18:00 [facility] Afluria Afluria 2021-03-26 Completed [facility] 09:44:00 - [facility] Afluria Afluria 2021-03-26 Completed [facility] 09:44:00 [facility] Afluria Afluria 2021-03-26 Completed [facility] 09:44:00 - [facility] Afluria Afluria 2021-03-26 Completed [facility] 09:44:00 [facility] Afluria Afluria 2021-03-26 Completed [facility] 09:44:00 - [facility] Afluria Afluria 2021-03-26 Completed [facility] 09:44:00 [facility] Afluria Afluria 2021-03-26 Completed [facility] 09:44:00 - [facility] Afluria Afluria 2021-03-26 Completed [facility] 09:44:00 - [facility] Afluria Afluria 2021-03-26 Completed [facility] 09:44:00 - [facility] Afluria Afluria 2021-03-26 Completed [facility] 09:44:00 - [facility] Afluria Afluria 2021-03-26 Completed [facility] 09:44:00 - [facility] Afluria Afluria 2021-03-26 Completed [facility] 09:44:00 - [facility] Afluria Afluria 2021-03-26 Completed [facility] 09:44:00 - [facility] Afluria Afluria 2021-03-26 Completed [facility] 09:44:00 - [facility] Afluria Afluria 2021-03-26 Completed [facility] 09:44:00 - [facility] Afluria Afluria 2021-03-26 Completed [facility] 09:44:00 - [facility] Afluria Afluria 2021-03-26 Completed [facility] 09:44:00 - [facility] Afluria Afluria 2021-03-26 Completed [facility] 09:44:00 - [facility] Afluria Afluria 2021-03-26 Completed [facility] 09:44:00 [facility] Afluria Afluria 2021-03-26 Completed [facility] 09:44:00 - [facility] Afluria Afluria 2021-03-26 Completed [facility] 09:44:00 - [facility] Afluria Afluria 2021-03-26 Completed [facility] 09:44:00 - [facility] Afluria Afluria 2021-03-26 Completed [facility] 09:44:00 - [facility] Afluria Afluria 2021-03-26 Completed [facility] 09:44:00 [facility] Afluria Afluria 2021-03-26 Completed [facility] 09:44:00 - [facility] Afluria Afluria 2021-03-26 Completed [facility] 09:44:00 - [facility] Afluria Afluria 2021-03-26 Completed [facility] 09:44:00 - [facility] Afluria Afluria 2021-03-26 Completed [facility] 09:44:00 [facility] Afluria Afluria 2021-03-26 Completed [facility] 09:44:00 [facility] Afluria Afluria 2021-03-26 Completed [facility] 09:44:00 [facility] Afluria Afluria 2021-03-26 Completed [facility] 09:44:00 - [facility] Afluria Afluria 2021-03-26 Completed [facility] 09:44:00 - [facility] Afluria Afluria 2021-03-26 Completed [facility] 09:44:00 [facility] Afluria Afluria 2021-03-26 Completed [facility] 09:44:00 [facility] Afluria Afluria 2021-03-26 Completed [facility] 09:44:00 - [facility] Afluria Afluria 2021-03-26 Completed [facility] 09:44:00 - [facility] Afluria Afluria 2021-03-26 Completed [facility] 09:44:00 [facility] Pneumovax (PPSV23) Pneumovax (PPSV23) 2020-03-20 Completed [facility] 11:22:00 [facility] Pneumovax (PPSV23) Pneumovax (PPSV23) 2020-03-20 Completed [facility] 11:22:00 [facility] [facility] Pneumovax (PPSV23) Pneumovax (PPSV23) 2020-03-20 [facility]:22:00 [facility] Pneumovax (PPSV23) Pneumovax (PPSV23) 2020-03-20 [facility]pleted [facility] 11:22:00 [facility] Pneumovax (PPSV23) Pneumovax (PPSV23) 2020-03-20 [facility]pleted [facility] 11:22:00 [facility] Pneumovax (PPSV23) Pneumovax (PPSV23) 2020-03-20 Completed [facility] 11:22: [facility] Pneumovax (PPSV23) Pneumovax (PPSV23) 2020-03-20 Completed [facility] 11:22:00 [facility] Pneumovax (PPSV23) Pneumovax (PPSV23) 2020-03-20 [facility]pleted [facility] 11:22: [facility] Pneumovax (PPSV23) Pneumovax (PPSV23) 2020-03-20 Completed [facility] 11:22: [facility] Pneumovax (PPSV23) Pneumovax (PPSV23) 2020-03-20 Completed [facility] 11:22: [facility] Pneumovax (PPSV23) Pneumovax (PPSV23) 2020-03-20 Completed [facility] 11:: [facility] Pneumovax (PPSV23) Pneumovax (PPSV23) 2020-03-20 Completed [facility] 11:22: [facility] Pneumovax (PPSV23) Pneumovax (PPSV23) 2020-03-20 Completed [facility] 11:: [facility] Pneumovax (PPSV23) Pneumovax (PPSV23) 2020-03-20 Completed [facility] 11:: [facility] Pneumovax (PPSV23) Pneumovax (PPSV23) 2020-03-20 Completed [facility] 11:22: [facility] Pneumovax (PPSV23) Pneumovax (PPSV23) 2020-03-20 Completed [facility] 11:22: [facility] Pneumovax (PPSV23) Pneumovax (PPSV23) 2020-03-20 Completed [facility] 11:22: [facility] Pneumovax (PPSV23) Pneumovax (PPSV23) 2020-03-20 Completed [facility] 11:: [facility] Pneumovax (PPSV23) Pneumovax (PPSV23) 2020-03-20 Completed [facility] 11:22: [facility] Pneumovax (PPSV23) Pneumovax (PPSV23) 2020-03-20 [facility]pleted [facility] 11:22: [facility] Pneumovax (PPSV23) Pneumovax (PPSV23) 2020-03-20 Completed [facility] 11:22:00 [facility] Pneumovax (PPSV23) Pneumovax (PPSV23) 2020-03-20 Completed [facility] 11:22:00 [facility] Pneumovax (PPSV23) Pneumovax (PPSV23) 2020-03-20 Completed [facility] 11:22: [facility] Pneumovax (PPSV23) Pneumovax (PPSV23) 2020-03-20 Completed [facility] 11:22: [facility] Pneumovax (PPSV23) Pneumovax (PPSV23) 2020-03-20 Completed [facility] 11:22: [facility] Pneumovax (PPSV23) Pneumovax (PPSV23) 2020-03-20 Completed [facility] 11:22: [facility] Pneumovax (PPSV23) Pneumovax (PPSV23) 2020-03-20 Completed [facility] 11:22: [facility] Pneumovax (PPSV23) Pneumovax (PPSV23) 2020-03-20 Completed [facility] 11:22: [facility] Pneumovax (PPSV23) Pneumovax (PPSV23) 2020-03-20 Completed [facility] 11:22:00 [facility] Pneumovax (PPSV23) Pneumovax (PPSV23) 2020-03-20 Completed [facility] 11:22: [facility] Pneumovax (PPSV23) Pneumovax (PPSV23) 2020-03-20 Completed [facility] 11:22:00 [facility] Pneumovax (PPSV23) Pneumovax (PPSV23) 2020-03-20 [facility]pleted [facility] 11:: [facility] Pneumovax (PPSV23) Pneumovax (PPSV23) 2020-03-20 Completed [facility] 11[facility]22: [facility] Pneumovax (PPSV23) Pneumovax (PPSV23) 2020-03-20 Completed [facility] 11:22:00 [facility] Pneumovax (PPSV23) Pneumovax (PPSV23) 2020-03-20 [facility]pleted [facility] 11:: [facility] Pneumovax (PPSV23) Pneumovax (PPSV23) 2020-03-20 [facility]pleted [facility] 11:: [facility] Pneumovax (PPSV23) Pneumovax (PPSV23) 2020-03-20 [facility]pleted [facility] 11:: [facility] Afluria single dose Afluria single dose 2020-03-20 [facility] 11:: [facility] Afluria single dose Afluria single dose 2020-03-20 [facility] 11:: [facility] Afluria single dose Afluria single dose 2020-03-20 [facility] 11:: [facility] Afluria single dose Afluria single dose 2020-03-20 [facility] 11:: [facility] Afluria single dose Afluria single dose 2020-03-20 [facility] 11:: [facility] Afluria single dose Afluria single dose 2020-03-20 [facility] 11:: [facility] Afluria single dose Afluria single dose 2020-03-20 [facility] 11:: [facility] Afluria single dose Afluria single dose 2020-03-20 [facility] 11:: [facility] Afluria single dose Afluria single dose 2020-03-20 [facility] 11:: [facility] Afluria single dose Afluria single dose 2020-03-20 [facility] 11:: [facility] Afluria single dose Afluria single dose 2020-03-20 [facility] 11:: [facility] Afluria single dose Afluria single dose 2020-03-20 [facility]pleted [facility] 11:: [facility] Afluria single dose Afluria single dose 2020-03-20 [facility]pleted [facility] 11:: [facility] Afluria single dose Afluria single dose 2020-03-20 [facility]pleted [facility] 11:: [facility] Afluria single dose Afluria single dose 2020-03-20 [facility]pleted [facility] 11:: [facility] Afluria single dose Afluria single dose 2020-03-20 [facility]pleted [facility] 11:: [facility] Afluria single dose Afluria single dose 2020-03-20 [facility] 11:: [facility] Afluria single dose Afluria single dose 2020-03-20 [facility]pleted [facility] 11:: [facility] Afluria single dose Afluria single dose 2020-03-20 Completed [facility] 11:: [facility] Afluria single dose Afluria single dose 2020-03-20 Completed [facility] 11:: [facility] Afluria single dose Afluria single dose 2020-03-20 Completed [facility] 11:: [facility] Afluria single dose Afluria single dose 2020-03-20 Completed [facility] 11:: [facility] Afluria single dose Afluria single dose 2020-03-20 Completed [facility] 11:: [facility] Afluria single dose Afluria single dose 2020-03-20 [facility]pleted [facility] 11:: [facility] Afluria single dose Afluria single dose 2020-03-20 [facility]pleted [facility] 11:: [facility] Afluria single dose Afluria single dose 2020-03-20 Completed [facility] 11:: [facility] Afluria single dose Afluria single dose 2020-03-20 [facility]pleted [facility] 11:: [facility] Afluria single dose Afluria single dose 2020-03-20 Completed [facility] 11:: [facility] Afluria single dose Afluria single dose 2020-03-20 [facility]pleted [facility] 11:: [facility] Afluria single dose Afluria single dose 2020-03-20 [facility]pleted [facility] 11:: [facility] Afluria single dose Afluria single dose 2020-03-20 [facility]pleted [facility] 11:: [facility] Afluria single dose Afluria single dose 2020-03-20 [facility]pleted [facility] 11:: [facility] Afluria single dose Afluria single dose 2020-03-20 Completed [facility] 11:21:00 - [facility] Afluria single dose Afluria single dose 2020-03-20 Completed [facility] 11:21:00 - [facility] Afluria single dose Afluria single dose 2020-03-20 Completed [facility] 11:21:00 - [facility] Afluria single dose Afluria single dose 2020-03-20 Completed [facility] 11:21:00 - [facility] Afluria single dose Afluria single dose 2020-03-20 Completed [facility] 11:21:00 - [facility] Vital Signs Vital Name Observation Time Observation Value Comments Source Systolic blood 2022-06-16 17:38:00 113 mm[Hg] [facility] Diastolic blood 2022-06-16 17:38:00 62 mm[Hg] [facility] Heart rate 2022-06-16 17:38:00 70 /min [facility] Body temperature 2022-06-16 17:38:00 [facility].67 [place] [facility] 2022-06-16 17:38:00 16 /min [facility] Oxygen saturation in 2022-06-16 17:38:00 95 /min [facility] blood by [facility] Pulse oximetry [place] Body height 2022-06-15 19:14:00 152.4 cm [facility] Body weight 2022-06-15 19:14:00 55.792 kg [facility] BMI 2022-06-15 19:14:00 24.02 kg/m2 [facility] Systolic blood 2022-06-15 13:41:00 127 mm[Hg] [facility] Diastolic blood 2022-06-15 13:41:00 62 mm[Hg] [facility] Heart rate 2022-06-15 13:41:00 71 /min [facility] Body temperature 2022-06-15 13:41:00 36.72 [place] [facility] Res[facility] rate 2022-06-15 13:41:00 18 /min [facility] O[facility] in 2022-06-15 13:41:00 93 /min [facility] Arterial blood by [facility] Pulse oximetry [facility] Body weight 2022-06-14 06:00:00 56 kg [facility] ty [facility] BMI 2022-06-14 06:00:00 24.02 kg/m2 [facility] height 2022-05-31 10:30:00 60 [in_i] [facility] weight 2022-05-31 10:30:00 143 [lb_av] [facility] temperature 2022-05-31 10:30:00 97.2 [degF] [facility] bmi 2022-05-31 10:30:00 27.92 kg/m2 [facility] blood pressure 2022-05-31 10:30:00 134 mm[Hg] [facility] - systolic [facility] blood pressure 2022-05-31 10:30:00 62 mm[Hg] [facility] - diastolic [facility] height 2022-05-20 13:50:00 60 [in_i] [facility] weight 2022-05-20 13:50:00 144.2 [lb_av] Common [facility] temperature 2022-05-20 13:50:00 97.6 [degF] [facility] bmi 2022-05-20 13:50:00 28.16 kg/m2 [facility] S [facility] oximetry 2022-05-20 13:50:00 97 % [facility] respiratory rate 2022-05-20 13:50:00 17 /min [facility] blood pressure 2022-05-20 13:50:00 131 mm[Hg] [facility] - systolic [facility] blood pressure 2022-05-20 13:50:00 60 mm[Hg] [facility] - diastolic [facility] height 2022-03-24 10:10:00 60 [in_i] [facility] weight 2022-03-24 10:10:00 141.8 [lb_av] [facility] - [facility] temperature 2022-03-24 10:10:00 97.3 [degF] [facility] bmi 2022-03-24 10:10:00 27.69 kg/m2 [facility] oximetry 2022-03-24 10:10:00 98 % [facility] respiratory rate 2022-03-24 10:10:00 18 /min [facility] blood pressure 2022-03-24 10:10:00 132 mm[Hg] [facility] - systolic [facility] blood pressure 2022-03-24 10:10:00 72 mm[Hg] [facility] - diastolic [facility] height 2022-01-05 13:30:00 60 [in_i] [facility] weight 2022-01-05 13:30:00 139 [lb_av] [facility] bmi 2022-01-05 13:30:00 27.14 kg/m2 [facility] blood pressure 2022-01-05 13:30:00 112 mm[Hg] [facility] - systolic [facility] blood pressure 2022-01-05 13:30:00 78 mm[Hg] [facility] - diastolic [facility] height 2021-12-02 09:50:00 60 [in_i] [facility] weight 2021-12-02 09:50:00 131.6 [lb_av] [facility] temperature 2021-12-02 09:50:00 97.3 [degF] [facility] bmi 2021-12-02 09:50:00 25.7 kg/m2 [facility] oximetry 2021-12-02 09:50:00 99 % [facility] respiratory rate 2021-12-02 09:50:00 17 /min [facility] blood pressure 2021-12-02 09:50:00 119 mm[Hg] [facility] - systolic [facility] blood pressure 2021-12-02 09:50:00 58 mm[Hg] [facility] - diastolic [facility] height 2021-10-06 15:00:00 60 [in_i] [facility] weight 2021-10-06 15:00:00 132.4 [lb_av] [facility] bmi 2021-10-06 15:00:00 25.85 kg/m2 [facility] blood pressure 2021-10-06 15:00:00 104 mm[Hg] [facility] - systolic [facility] blood pressure 2021-10-06 15:00:00 58 mm[Hg] [facility] - diastolic [facility] height 2021-09-07 14:30:00 60 [in_i] [facility] weight 2021-09-07 14:30:00 132 [lb_av] [facility] bmi 2021-09-07 14:30:00 25.78 kg/m2 [facility] blood pressure 2021-09-07 14:30:00 134 mm[Hg] [facility] - systolic [facility] blood pressure 2021-09-07 14:30:00 84 mm[Hg] [facility] - diastolic [facility] height 2021-07-30 14:30:00 60 [in_i] [facility] weight 2021-07-30 14:30:00 132 [lb_av] [facility] temperature 2021-07-30 14:30:00 98.0 [degF] [facility] bmi 2021-07-30 14:30:00 25.78 kg/m2 [facility] blood pressure 2021-07-30 14:30:00 112 mm[Hg] [facility] - systolic [facility] blood pressure 2021-07-30 14:30:00 72 mm[Hg] [facility] - diastolic [facility] height 2021-07-06 09:20:00 60 [in_i] [facility] weight 2021-07-06 09:20:00 131.4 [lb_av] [facility] temperature 2021-07-06 09:20:00 97.9 [degF] [facility] bmi 2021-07-06 09:20:00 25.66 kg/m2 [facility] oximetry 2021-07-06 09:20:00 99 % [facility] respiratory rate 2021-07-06 09:20:00 18 /min [facility] blood pressure 2021-07-06 09:20:00 121 mm[Hg] [facility] - systolic [facility] blood pressure 2021-07-06 09:20:00 57 mm[Hg] [facility] - diastolic [facility] height 2021-07-06 08:30:00 60 [in_i] [facility] weight 2021-07-06 08:30:00 131.4 [lb_av] [facility] temperature 2021-07-06 08:30:00 97.9 [degF] [facility] bmi 2021-07-06 08:30:00 25.66 kg/m2 [facility] oximetry 2021-07-06 08:30:00 99 % [facility] blood pressure 2021-07-06 08:30:00 121 mm[Hg] [facility] - systolic [facility] blood pressure 2021-07-06 08:30:00 57 mm[Hg] [facility] - diastolic [facility] height 2021-05-28 14:45:00 60 [in_i] [facility] weight 2021-05-28 14:45:00 132 [lb_av] [facility] temperature 2021-05-28 14:45:00 97.8 [degF] [facility] bmi 2021-05-28 14:45:00 25.78 kg/m2 [facility] blood pressure 2021-05-28 14:45:00 124 mm[Hg] [facility] - systolic [facility] blood pressure 2021-05-28 14:45:00 80 mm[Hg] [facility] - diastolic [facility] height 2021-05-21 14:30:00 60 [in_i] [facility] weight 2021-05-21 14:30:00 132 [lb_av] [facility] temperature 2021-05-21 14:30:00 97.6 [degF] [facility] bmi 2021-05-21 14:30:00 25.78 kg/m2 [facility] blood pressure 2021-05-21 14:30:00 112 mm[Hg] [facility] - systolic [facility] blood pressure 2021-05-21 14:30:00 74 mm[Hg] [facility] - diastolic [facility] height 2021-04-07 09:30:00 60 [in_i] [facility] weight 2021-04-07 09:30:00 132.6 [lb_av] [facility] - [facility] temperature 2021-04-07 09:30:00 97.7 [degF] [facility] bmi 2021-04-07 09:30:00 25.89 kg/m2 [facility] oximetry 2021-04-07 09:30:00 97 % [facility] respiratory rate 2021-04-07 09:30:00 16 /min [facility] blood pressure 2021-04-07 09:30:00 121 mm[Hg] [facility] - systolic [facility] blood pressure 2021-04-07 09:30:00 56 mm[Hg] [facility] - diastolic [facility] height 2021-03-26 09:50:00 60 [in_i] [facility] weight 2021-03-26 09:50:00 131.4 [lb_av] [facility] temperature 2021-03-26 09:50:00 97.5 [degF] [facility] bmi 2021-03-26 09:50:00 25.66 kg/m2 [facility] oximetry 2021-03-26 09:50:00 98 % [facility] respiratory rate 2021-03-26 09:50:00 17 /min [facility] blood pressure 2021-03-26 09:50:00 113 mm[Hg] [facility] - systolic [facility] blood pressure 2021-03-26 09:50:00 56 mm[Hg] [facility] diastolic [facility] Systolic blood 2022-06-15 17:07:00 109 mm[Hg] [facility] of pressure [facility] Diastolic blood 2022-06-15 17:07:00 64 mm[Hg] [facility] Heart rate 2022-06-15 17:07:00 69 /min [facility] Body temperature 2022-06-15 17:07:00 36.5 [place] [facility] Res[facility] rate 2022-06-15 17:07:00 17 /min [facility] Oxygen saturation in 2022-06-15 17:07:00 93 /min [facility] Arterial blood by [facility] Pulse oximetry [facility] Body weight 2022-06-14 06:00:00 56 kg [facility] BMI 2022-06-14 06:00:00 24.11 kg/m2 [facility] Body height 2020-11-25 14:44:00 152.4 cm [facility] Procedures Procedure Date / Time Performing Source Performed Clinician EXTERNAL PROVIDER RECORDS 2022-06-23 Doctor Jessica alves of 06:01:00 Unassigned, No [facility] CBC WITHOUT DIFF 2022-06-16 Lavon Monge of 11:54:00 [facility] CBC WITHOUT DIFF 2022-06-16 Lavon Monge [place] of 11:54:00 [facility] MAGNESIUM 2022-06-15 Lavon Monge [place] of 21:55:00 [facility] BASIC METABOLIC PANEL (NA, K, CL, 2022-06-15 Monster Monge [facility] of CO2, GLUCOSE, BUN, CREATININE, CA) 21:55:00 [facility] CBC WITH DIFF 2022-06-15 Lavon Monge [place] of 21:55:00 [facility]IUM [facility]22[facility]06-[facility] BASIC METABOLIC PANEL (NA, K, CL, 2022-06-15 Monster Monge [facility] of CO2, GLUCOSE, BUN, CREATININE, CA) 21:55:00 [facility] CBC WITH DIFF 2022-06-15 Lavon Monge [place] of 21:55:00 [facility] ESOPHAGOGASTRODUODENOSCOPY 2022-06-15 Alexandru [place] [facility] of 19:37:00 [facility] ESOPHAGOGASTRODUODENOSCOPY 2022-06-15 Alexandru [place] [facility] of 19:37:00 [facility] EGD (ENDO) 2022-06-15 [facility] of 18:33:01 [facility] EGD (ENDO) 2022-06-15 [facility] of 18:33:01 [facility] CBC WITHOUT DIFF 2022-06-14 Lavon Monge [place] of 22:38:00 [facility] TROPONIN I 2022-06-14 Lavon Monge [place] of 22:38:00 [facility] TROPONIN I 2022-06-14 Lavon Monge [place] of 22:38:00 [facility] CBC WITHOUT DIFF 2022-06-14 Lavon Monge [place] of 22:38:00 [facility] TROPONIN I 2022-06-14 Lavon Monge [place] of 22:38:00 [facility] CBC WITHOUT DIFF 2022-06-14 Lavon Monge [place] of 22:38:00 [facility] HB ECG ROUTINE & RHYTHM STRIP 2022-06-14 Kristan Monroe Un [facility]versity of 16:53:14 [facility] HB ECG ROUTINE & RHYTHM STRIP 2022-06-14 Kristan Monroe Un [facility] of 16:53:14 [facility] HB ECG ROUTINE & RHYTHM STRIP 2022-06-14 Kristan Monroe Un [facility] of 16:53:14 [facility] HB ECG ROUTINE & RHYTHM STRIP 2022-06-14 Nate Cheney Un iversity of 16:51:07 [facility] HB ECG ROUTINE & RHYTHM STRIP 2022-06-14 Nate Cheney Un [facility]versity of 16:51:07 [facility] HB ECG ROUTINE & RHYTHM STRIP 2022-06-14 Nate Cheney iversity of 16:51:07 [facility]YSIS 2022-06-14 [facility] URINE CULTURE 2022-06-14 Ana Mohdawna [facility] of 09:50:00 [facility] URINALYSIS 2022-06-14 [facility] Sheldondawna [facility] of 09:50:00 [facility] URINE CULTURE 2022-06-14 [facility] Sheldondawna [facility] of 09:50:00 [facility] URINALYSIS 2022-06-14 [facility] Sheldondawna [facility] of 09:50:00 [facility] URINE CULTURE 2022-06-14 Ana Mohdawna [facility] of 09:50:00 [facility] XR CHEST 1 2022-06-14 [facility] Sheldondawna [facility] of 09:37:00 [facility] XR CHEST 1 2022-06-14 [facility] Sheldondawna [facility] of 09:37:00 [facility] XR CHEST 1 2022-06-14 [facility] Sheldondawna [facility] of 09:37:00 [facility] CBC WITH DIFF 2022-06-14 Ana Mohdawna [facility] of 07:13:00 [facility] COMP. METABOLIC PANEL (44655) 2022-06-14 Nate Cheney iversity of 07:13:00 [facility] THYROID STIMULATING HORMONE 2022-06-14 Nate Cheney Univ ersity of 07:13:00 [facility] FREE T4 2022-06-14 Noni Natedionicio Rendon of 07:13:00 [facility] MAGNESIUM 2022-06-14 Noni [facility] of 07:13:00 [facility] PHOSPHORUS 2022-06-14 Loglisa, [facility] of 07:13:00 [facility] GLYCOSYLATED HEMOGLOBIN (A1C) 2022-06-14 Nate Cheney iversity of 07:13:00 [facility] LIPID PANEL (58007)(TOTAL 2022-06-14 Noni, [facility] joselyn of CHOLESTEROL, TRIGLYCERIDES, HDL) 07:13:00 [facility] PROTHROMBIN TIME / INR 2022-06-14 Noni [facility] y of 07:13:00 [facility] N-TERMINAL PRO-BNP 2022-06-14 Noni, [facility] of 07:13:00 [facility] TROPONIN I 2022-06-14 Noni, [facility] of 07:13:00 [facility] PROCALCITONIN 2022-06-14 Ana Mohdawna, [facility] of 07:13:00 [facility] COVID-19 (ID NOW RAPID TESTING) 2022-06-14 Ana Mohdawna [facility] of 07:13:00 [facility] GALV ONLY - INFLUENZA A B RSV PCR 2022-06-14 Ana Mohdawna [facility] of 07:13:00 [facility] IRON PANEL 2022-06-14 Noni [facility] of 07:13:00 [facility] FERRITIN SERUM 2022-06-14 Noni [facility] of 07:13:00 [facility] VITAMIN B12, LEVEL 2022-06-14 Noni [facility] of 07:13:00 [facility] FOLATE 2022-06-14 Loglisa [facility] of 07:13:00 [facility] LAB ONLY COVID INTERPRETATION 2022-06-14 Nate Cheney [facility] of 07:13:00 [facility] PHOSPHORUS 2022-06-14 Noni [facility] of 07:13:00 [facility] MAGNESIUM 2022-06-14 Loglisa [facility] of 07:13:00 [facility] FERRITIN SERUM 2022-06-14 Noni [facility] of 07:13:00 [facility] VITAMIN B12, LEVEL 2022-06-14 Ana Mohdawna [facility] of 07:13:00 [facility] FOLATE 2022-06-14 Loglisa, [facility] of 07:13:00 [facility] TROPONIN I 2022-06-14 Noni, [facility] of 07:13:00 [facility] FREE T4 2022-06-14 Logohdawan, [facility] of 07:13:00 [facility] THYROID STIMULATING HORMONE 2022-06-14 Ana Mohdawna, [facility], [place] ersity of 07:13:00 [facility] COMP. METABOLIC PANEL (42577) 2022-06-14 [facility] of 07:13:00 [facility] LIPID PANEL (19392)(TOTAL 2022-06-14 [facility] Sheldondawna, [facility] sity of CHOLESTEROL, TRIGLYCERIDES, HDL) 07:13:00 [facility] IRON PANEL 2022-06-14 Noni [facility] of 07:13:00 [facility] CBC WITH DIFF 2022-06-14 Noni [facility] of 07:13:00 [facility] GLYCOSYLATED HEMOGLOBIN (A1C) 2022-06-14 Noni [facility] iversity of 07:13:00 [facility] PROTHROMBIN TIME / INR 2022-06-14 Ana Mohdawna [facility] y of 07:13:00 [facility] GALV ONLY - INFLUENZA A B RSV PCR 2022-06-14 Noni [facility] of 07:13:00 [facility] N-TERMINAL PRO-BNP 2022-06-14 Ana Mohdawna [facility] of 07:13:00 [facility] PROCALCITONIN 2022-06-14 Noni [facility] of 07:13:00 [facility] COVID-19 (ID NOW RAPID TESTING) 2022-06-14 Noni [facility] of 07:13:00 [facility] LAB ONLY COVID INTERPRETATION 2022-06-14 Nate Cheney iversity of 07:13:00 [facility] PHOSPHORUS 2022-06-14 Noni [facility] of 07:13:00 [facility] MAGNESIUM 2022-06-14 Noni [facility] of 07:13:00 [facility] FERRITIN SERUM 2022-06-14 Noni [facility] of 07:13:00 [facility] VITAMIN B12, LEVEL 2022-06-14 Nate Cheney of 07:13:00 [facility] FOLATE 2022-06-14 Noni [facility] of 07:13:00 [facility] TROPONIN I 2022-06-14 Nate Cheney [place] of 07:13:00 [facility] FREE T4 2022-06-14 Noni Nate [place] of 07:13:00 [facility] THYROID STIMULATING HORMONE 2022-06-14 Nate Cheney [facility] ersity of 07:13:00 [facility] COMP. METABOLIC PANEL (57625) 2022-06-14 Nate Cheney iversity of 07:13:00 [facility] LIPID PANEL (08698)(TOTAL 2022-06-14 Naet Cheney [facility] sity of CHOLESTEROL, TRIGLYCERIDES, HDL) 07:13:00 [facility] IRON PANEL 2022-06-14 Noni [facility] of 07:13:00 [facility] CBC WITH DIFF 2022-06-14 Nate Cheney [place] of 07:13:00 [facility] GLYCOSYLATED HEMOGLOBIN (A1C) 2022-06-14 Nate Cheney iversity of 07:13:00 [facility] PROTHROMBIN TIME / INR 2022-06-14 Nate Cheney [facility] y of 07:13:00 [facility] GALV ONLY - INFLUENZA A B RSV PCR 2022-06-14 Nate Cheney [place] of 07:13:00 [facility] N-TERMINAL PRO-BNP 2022-06-14 Noni Nate [place] of 07:13:00 [facility] PROCALCITONIN 2022-06-14 Noni [facility] of 07:13:00 [facility] COVID-19 (ID NOW RAPID TESTING) 2022-06-14 Noni [facility] of 07:13:00 [facility] LAB ONLY COVID INTERPRETATION 2022-06-14 Nate Cheney iversity of 07:13:00 [facility] Encounters Start End Encounter Admission Attending Care Care Encounter Source Date/Time Date/Time Type Type Clinicians Facility Department ID 2022-09-08 Outpatient [facility] [id number] [place] 10:20:56 [id number] [facility] 2022-08-30 Outpatient [facility] [id number] [place] 10:41:01 [id number] [facility] 2022-08-23 Outpatient [facility] [id number] [place] 10:00:40 [id number] [facility] 2022-08-18 Outpatient [place], STLMLC STLMLC [id number] Common 16:34:00 [facility] [address] [facility] 2022-08-13 Outpatient [facility] [id number] [place] 12:11:39 [id number] [facility] 2022-08-12 Outpatient [facility] [id number] [place] 13:17:04 [id number] [facility] 2022-07-21 Outpatient [facility] [id number] [place] 13:35:27 [id number] [facility] 2022-06-24 Outpatient [facility] [id number] [place] 08:59:26 [id number] [facility] 2022-06-03 Outpatient [facility] [id number] [place] 16:40:39 [id number] [facility] 2022-05-31 Outpatient [place], STLMLC STLMLC [id number] Common 11:39:01 [facility] 2022-05-19 Outpatient [place], STLMLC STLMLC [id number] Common 14:43:00 [facility] 2022-04-23 Outpatient [place], STLMLC STLMLC [id number] Common 11:17:01 [facility] 2022-04-17 Outpatient [place], STLMLC STLMLC [id number] Common 11:08:00 [facility] 2022-01-06 Outpatient [place], STLMLC STLMLC [id number] Common 13:28:00 [facility] 2021-11-02 Outpatient [place], STLMLC STLMLC [id number] Common 09:01:18 [facility] 2021-09-21 Outpatient [place], STLMLC STLMLC [id number] Common 13:05:01 [facility] 2021-07-29 Outpatient [place], STLMLC STLC [id number] Common 10:19:01 Nirmal [facility] 2021-07-08 Outpatient [place], STLMLC STLMLC [id number] Common 14:39:04 Nirmal [facility] 2021-07-08 Outpatient [place], STLMLC STLC [id number] Common 14:11:57 Nirmal [facility] 2021-07-08 Outpatient [place], STLMLC STLMLC [id number] Common 14:09:54 Nirmal [address] [facility] 2021-07-08 Outpatient [place], STLMLC STLC [id number] Common 12:46:03 Nirmal [address] [facility] 2021-07-08 Outpatient [place], STLMLC STLC [id number] Common 12:36:17 Nirmal 025[address] [facility] 2021-07-08 Outpatient [place], STLMLC STLC [id number] Common 12:17:58 Nirmal 9[address] [facility] 2021-07-08 Outpatient [place], STLMLC STLC [id number] Common 11:28:21 Nirmal 23252 [facility] 2021-07-08 Outpatient [place], STLMLC STLC [id number] Common 11:18:20 Nirmal 87014 [facility] 2021-07-08 Outpatient [place], STLMLC STLC [id number] Common 11:13:47 Nirmal 438[address] [facility] 2021-07-08 Outpatient [place], STLMLC STLC [id number] Common 11:09:58 Nirmal 02992 [facility] 2021-07-08 Outpatient [place], STLMLC STLC [id number] Common 11:08:14 Nirmal [address] [facility] 2021-04-13 Outpatient Azam BESS [facility] TIERRA [id number] Univers 11:39:26 ЕЛЕНА leonard [facility] 2021-04-12 Outpatient Azam BESS [facility] [id number] Univers 23:35:55 ЕЛЕНА lisseth [facility] 2021-04-11 [facility] [id number] Univers 21:31:44 ЕЛЕНА leonard [facility] 2022-11-11 2022-11-11 [facility] [id number] [place] 13:00:00 13:00:00 [facility] 2022-09-15 2022-09-15 Telephone Ray [facility] [id number] Univers 00:00:00 00:00:00 Betito SPECIALTY 350.1.13.10 ity of [facility] 4.2.7.2.686 [place] CENTER AT [phone] Nh miladysalexandru [place] 254152 [facility] 2022-09-14 2022-09-14 Outpatient Azam [facility] [id number] Univers 11:30:00 11:30:00 LUPE leonard o f [facility] 2022-08-12 2022-08-12 Outpatient [facility] [id number] [place] 00:00:00 15:52:50 [facility] 2022-08-12 2022-08-12 Office Rosa [facility] 1.2.840.114 [id number] [place] 13:15:00 14:24:05 Visit Marixa LANIER 350.1.13.58 He alth [facility] 9.2.7.2.[address] [id number] 1 2022-06-23 2022-06-23 Orders Doctor RAY 1.2.840.114 [id number] Univers 00:00:00 00:00:00 Only Unassigned, SUSHILA 350.1.13.[address] [facility] 4.2.7.2.686 [place] [phone] [address] 2022-06-22 2022-06-22 Outpatient ROSA [facility] [id number] [place] 11:00:00 11:00:00 [facility] 2022-06-17 2022-06-17 Transition LALITA Mayer 1.2.840.114 [id number] Univers 00:00:00 00:00:00 of Care Dino SHELBY 350.1.13.10 ity of [place] [id number] [facility] [address] 2022-06-13 2022-06-16 Inpatient U TIFFANI DARBY [facility] JAYE [id number] Univers 23:46:00 15:23:00 TIFFANI DARBY i ty of [facility] 2022-06-13 2022-06-16 [facility] CARA Darby 1.2.840.114 [id number] Univers 23:46:00 15:23:00 Encounter Tiffani CONTI 350.1.13.10 ity of HOSPITAL 4.2.7.2.686 [place] [phone] [facility] [address] 2022-06-15 2022-06-15 Anesthesia [place], 1.2.840.9 [id number] Univers 12:52:00 12:52:00 Event Sharif 20634.1.1 ity of 3.104.2.7 [place] .3.203958 Medica l .8 Branch 2022-06-15 2022-06-15 Surgery Geovanna [facility] 1.2.665.582 [id number] Univers 09:23:00 09:59:00 Alexandru STALEY 350.1.13.10 ity of [facility] 4.2.7.2.686 [place] BLDG [id number] [facility] 020 [address] 2022-06-14 2022-06-14 Anesthesia Mabel, 1.2.840.1 [id number] Univers 12:05:59 12:05:59 Event Kristan Lo 66371.1.1 ity of 3.104.2.7 [place] .3.339642 Medica l .8 Branch 2022-06-14 2022-06-14 Travel 1.2.840.1 [id number] [id number] Univers 00:00:00 00:00:00 34958.1.1 350.1.13.10 ity of 3.104.2.7 4.[place].7.3.698 [place] .3.417312 084.8 Medica l .8 Branch 2022-06-02 2022-06-02 (TEL) STLMLC STLMLC [id number] Co mmon 00:00:00 00:00:00 [facility] 2022-06-01 2022-06-01 (TEL) STLMLC STLMLC [id number] Co mmon 00:00:00 00:00:00 [facility] 2022-05-31 2022-05-31 OFFICE STLMLC STLMLC [id number] Co mmon 00:00:00 00:00:00 VISIT EST Spir it PT LEVEL 3 - [facility] 2022-05-25 2022-05-25 (TEL) STLMLC STLMLC [id number] Co mmon 00:00:00 00:00:00 [facility] 2022-05-20 2022-05-20 OFFICE STLMLC STLMLC [id number] Co mmon 00:00:00 00:00:00 VISIT Spirit ESTAB PT - CHI LEVEL 4 [facility] 2022-04-23 2022-04-23 (TEL) STLMLC STLMLC [id number] Co mmon 00:00:00 00:00:00 [facility] 2022-04-16 2022-04-16 (TEL) STLMLC STLMLC [id number] Co mmon 00:00:00 00:00:00 [facility] 2022-03-30 2022-03-30 (TEL) STLMLC STLMLC [id number] Co mmon 00:00:00 00:00:00 [facility] 2022-03-24 2022-03-24 (HOSP F/U) STLMLC STLMLC [id number] Common 00:00:00 00:00:00 Hospital [facility] 2022-03-14 2022-03-14 (TEL) STLMLC STLMLC [id number] Co mmon 00:00:00 00:00:00 [facility] 2022-03-10 2022-03-10 (TEL) STLMLC STLMLC [id number] Co mmon 00:00:00 00:00:00 [facility] 2022-03-09 2022-03-09 (TEL) STLMLC STLMLC [id number] Co mmon 00:00:00 00:00:00 [facility] 2022-02-03 2022-02-03 (TEL) STLMLC STLMLC [id number] Co mmon 00:00:00 00:00:00 [facility] 2022-01-08 2022-01-08 (TEL) STLMLC STLMLC [id number] Co mmon 00:00:00 00:00:00 [facility] 2022-01-05 2022-01-05 OFFICE STLMLC STLMLC [id number] Co mmon 00:00:00 00:00:00 VISIT Spirit ESTAB PT - CHI LEVEL 4 [facility] 2021-12-07 2021-12-07 (TEL) STLMLC STLMLC [id number] Co mmon 00:00:00 00:00:00 [facility] 2021-12-02 2021-12-02 OFFICE STLMLC STLMLC [id number] Co mmon 00:00:00 00:00:00 VISIT Spirit ESTAB PT - CHI LEVEL 4 [facility] 2021-10-06 2021-10-06 OFFICE STLMLC STLMLC [id number] Co mmon 00:00:00 00:00:00 VISIT Spirit ESTAB PT - CHI LEVEL 4 [facility] 2021-09-07 2021-09-07 OFFICE STLMLC STLMLC [id number] Co mmon 00:00:00 00:00:00 VISIT Spirit ESTAB PT - CHI LEVEL 4 [facility] 2021-08-13 2021-08-13 (TEL) STLMLC STLMLC [id number] Co mmon 00:00:00 00:00:00 [facility] 2021-07-31 2021-07-31 (TEL) STLMLC STLMLC [id number] Co mmon 00:00:00 00:00:00 [facility] 2021-07-30 2021-07-30 OFFICE STLMLC STLMLC [id number] Co mmon 00:00:00 00:00:00 VISIT Spirit ESTAB PT - CHI LEVEL 4 [facility] 2021-07-19 2021-07-19 [facility] 1.2.840.114 [id number] Univers 00:00:00 00:00:00 [facility] 350.1.13.10 it y of CLEAR 4.2.7.2.686 Radha JAQUEZ [id number] [place] [address] Branch (CLC) 2021-07-06 2021-07-06 OFFICE STLMLC STLMLC [id number] Co mmon 00:00:00 00:00:00 VISIT [facility] PT - CHI LEVEL 4 [facility] 2021-07-06 2021-07-06 SUB ANNUAL STLMLC STLMLC [id number] Common 00:00:00 00:00:00 MCR [facility] WELLNESS - CHI VISIT [facility] 2021-07-03 2021-07-03 (TEL) STLMLC STLMLC [id number] Co mmon 00:00:00 00:00:00 [facility] 2021-06-23 2021-06-23 (TEL) STLMLC STLMLC [id number] Co mmon 00:00:00 00:00:00 [facility] 2021-06-22 2021-06-22 (TEL) STLMLC STLMLC [id number] Co mmon 00:00:00 00:00:00 [facility] 2021-05-28 2021-05-28 (IN/ASP) STLMLC STLMLC [id number] C ommon 00:00:00 00:00:00 INJ ASP [facility] 2021-05-21 2021-05-21 (IN/ASP) STLMLC STLMLC [id number] C ommon 00:00:00 00:00:00 INJ ASP [facility] 2021-04-28 2021-04-28 (TEL) STLMLC STLMLC [id number] Co mmon 00:00:00 00:00:00 [facility] 2021-04-27 2021-04-27 (TEL) STLMLC STLMLC [id number] Co mmon 00:00:00 00:00:00 [facility] 2021-04-24 2021-04-24 (TEL) STLMLC STLMLC [id number] Co mmon 00:00:00 00:00:00 [facility] 2021-04-07 2021-04-07 (HOSP F/U) STLMLC STLMLC [id number] Common 00:00:00 00:00:00 [facility] 2021-04-02 2021-04-02 (TEL) STLMLC STLMLC [id number] Co mmon 00:00:00 00:00:00 [facility] 2021-03-26 2021-03-26 OFFICE STLMLC STLMLC [id number] Co mmon 00:00:00 00:00:00 VISIT [facility] 4 [facility] 2021-03-03 2021-03-03 Outpatient STLMLC STLMLC [id number] Common 00:00:00 00:00:00 [facility] 2021-02-27 2021-02-27 Outpatient STLMLC STLMLC [id number] Common 00:00:00 00:00:00 [facility] 2021-02-25 2021-02-25 Outpatient STLMLC STLMLC [id number] Common 00:00:00 00:00:00 [facility] 2021-01-21 2021-01-21 Outpatient STLMLC STLMLC [id number] Common 00:00:00 00:00:00 [facility] 2021-01-19 2021-01-19 Outpatient STLMLC STLMLC [id number] Common 00:00:00 00:00:00 [facility] 2021-01-16 2021-01-16 [facility] [id number] Univers 11:30:00 11:30:00 [facility] [place] 2020-12-24 2020-12-24 Outpatient STLMLC STLMLC [id number] Common 00:00:00 00:00:00 [facility] 2020-12-24 2020-12-24 Outpatient STLMLC STLMLC [id number] Common 00:00:00 00:00:00 [facility] 2020-12-24 2020-12-24 Outpatient STLMLC STLMLC [id number] Common 00:00:00 00:00:00 [facility] 2020-12-19 2020-12-19 Outpatient STLMLC STLMLC [id number] Common 00:00:00 00:00:00 [facility] 2020-12-18 2020-12-18 Outpatient STLMLC STLMLC [id number] Common 00:00:00 00:00:00 [facility] 2020-11-25 2020-11-25 [facility] Maria Elena, [facility] [id number] 09:18:00 13:13:00 Encounter [facility] 350.1.13.10 Clear 4.2.7.2.686 Jaquez [id number] Hospital 049 ([facility]) 2020-11-25 2020-11-25 Surgery [facility] 1.2.840.114 [id number] 11:00:00 12:14:00 Health 350.1.13.10 Clear 4.2.7.2.686 Jaquez [id number] Hospital 020 ([facility]) 2020-11-25 2020-11-25 Orders Doctor RAY 1.2.840.114 [id number] 00:00:00 00:00:00 Only Unassigned, SUSHILA 350.1.13.10 [place] [facility] 4.2.7.2.686 [id number] [id number] 2020-11-25 2020-11-25 Prep For RAY Bess 1.2.695.322 [id number] 00:00:00 00:00:00 Surgery Елена CONTI 350.1.13.10 [facility] 4.2.7.2.686 [id number] 010 2020-11-25 2020-11-25 Refill Maria ElenaFormerly [facility] 1.2.840.114 [id number] 00:00:00 00:00:00 [facility] 350.1.13.10 Clear 4.2.7.2.686 [place] [id number] Hospital 049 (CLC) 2020-11-25 2020-11-25 Refill Maria Elena AKEVANS 1.2.840.114 [id number] 00:00:00 00:00:00 [facility] 350.1.13.10 Clear 4.2.7.2.686 [place] [id number] Hospital [facility] ([facility]) 2020-11-14 2020-11-14 Outpatient STLMLC STLMLC [id number] Common 00:00:00 00:00:00 [facility] 2020-11-12 2020-11-12 Outpatient STLMLC STLMLC [id number] Common 00:00:00 00:00:00 [facility] 2020-11-03 2020-11-03 Prep For Maria ElenaRAY 1.2.776.992 [id number] 00:00:00 00:00:00 [facility].1.13.[address] [id number] 010 2020-10-31 2020-10-31 Telephone Maria Elena [facility] 1.2.840.114 [id number] 00:00:00 00:00:00 [facility] 350.1.13.10 [facility] 4.2.7.2.686 [place] AT [id number] MARYSOL ROMAN 2020-10-24 2020-10-24 Outpatient STLMLC STLMLC [id number] Common 00:00:00 00:00:00 [facility] 2020-10-15 2020-10-15 Outpatient STLMLC STLMLC [id number] Common 00:00:00 00:00:00 [facility] 2020-07-23 2020-07-23 Laboratory Only, Shelbie [facility] 1.2.840.114 [id number] 11:51:15 12:06:15 Only Test [place] 350.1.13.10 [place] 4.2.7.2.686 [place] [id number] 2020-07-23 2020-07-23 Outpatient R [facility] [id number] Univers 11:00:00 11:00:00 [facility] [place] 2020-07-23 2020-07-23 Orders Doctor RAY 1.2.840.114 [id number] 00:00:00 00:00:00 Only Unassigned, SUSHILA 350.1.13.10 [place] [facility] 4.2.7.2.686 [id number] 009 2020-07-18 2020-07-18 Outpatient STLMLC STLMLC [id number] Common 00:00:00 00:00:00 [facility] 2020-07-15 2020-07-15 Office [facility] 1.2.840.114 [id number] 13:45:51 14:15:51 [facility] 350.1.13.10 [facility] 4.2.7.2.686 [place] AT [id number] MARYSOL Sena [facility] 2020-07-15 2020-07-15 [facility]patient [facility] [id number] Univers 13:45:00 13:45:00 ЕЛЕНА [facility] [place] 2020-06-18 2020-06-18 Outpatient STLMLC STLMLC [id number] Common 00:00:00 00:00:00 [facility] 2020-06-17 2020-06-17 [facility] [id number] Univers 08:30:00 08:30:00 JOE andrews [facility] 2020-06-09 2020-06-09 Outpatient R [facility] [id number] Univers 09:00:00 09:00:00 [facility] [place] 2020-05-15 2020-05-15 Outpatient STLMLC STLMLC [id number] Common 00:00:00 00:00:00 [facility] 2020-05-13 2020-05-13 [facility] [id number] Univers 09:00:00 09:00:00 JOE andrews [facility] 2020-04-17 2020-04-17 Outpatient STLMLC STLMLC [id number] Common 00:00:00 00:00:00 [facility] 2020-04-11 2020-04-11 Outpatient STLMLC STLMLC [id number] Common 00:00:00 00:00:00 [facility] 2020-04-08 2020-04-08 Outpatient STLMLC STLMLC [id number] Common 00:00:00 00:00:00 [facility] 2020-03-20 2020-03-20 Outpatient STLMLC STLMLC [id number] Common 00:00:00 00:00:00 [facility] 2019-12-19 2019-12-19 [facility] [id number] Common 10:45:00 10:45:[address] [facility] 2019-12-19 2019-12-19 Outpatient [facility] [id number] Common 10:00:00 10:00:[address] [facility] 2019-12-03 2019-12-03 Out[facility] [id number] Common 10:17:00 10:17:[address] [facility] 2019-12-03 2019-12-03 Outpatient [facility] [id number] Common 09:59:00 09:59:[address] [facility] 2019-11-29 2019-11-29 Outpatient [facility] [id number] Common 09:45:00 09:45:[address] [facility] 2019-11-13 2019-11-13 Outpatient [facility] [id number] Common 11:17:00 11:17:00 t [facility] [address] [facility] 2019-11-06 2019-11-06 Outpatient [facility] [id number] Common 15:08:00 15:08:[address] [facility] 2019-11-01 2019-11-01 Outpatient [facility] [id number] Common 16:03:00 16:03:[address] [facility] 2019-10-31 2019-10-31 Outpatient [facility] [id number] Common 09:15:00 09:15:[address] [facility] 2019-10-01 2019-10-01 Outpatient Carmen [facility] [id number] Common 10:00:00 10:00:[address] [facility] 2019-08-27 2019-08-27 Outpatient Carmen [facility] [id number] Common 14:00:00 14:00:[address] [facility] 2019-07-30 2019-07-30 Outpatient Carmen [facility] [id number] Common 11:00:00 11:00:[address] [facility] 2019-07-18 2019-07-18 Outpatient ANETA GHOSH [facility] [id number] [place] 01:45:00 01:45:00 [id number] [facility] Program Results Test Description Test Time Test Comments Results Result Comments Source BASIC METABOLIC PANEL (NA, K, CL, CO2, GLUCOSE, BUN, 2022-06 22:23:06 CREATININE, [place]) Test Item Value Reference Range Interpretation Comme nts NA (test code = 9572541259) 138 mmol/L 135-145 K (test code = 7276294376) 4.0 mmol/L 3.5-5.0 CL (test code = 6065311502) 106 mmol/L 98-108 CO2 TOTAL (test code = 27 mmol/L 23-31 2481628045) AGAP (test code = 1338837508) 2-16 BUN (test code = 3156002969) 9 mg/dL 7-23 GLUCOSE (test code = 7358529085) 90 mg/dL 70-110 CREATININE (test code = 0.83 mg/dL 0.50-1.04 1154601372) CALCIUM (test code = 0304696831) 9.2 mg/dL 8.6-10.6 eGFR (test code = 4823782505) mL/min/1.73m2 PEBBLES (test code = PEBBLES) Association [...] or urine or abnormalities in imaging tests). [facility]06 Test Item Value Reference Range Interpretation Comments MAGNESIUM (test code = 1621598882) 1.9 mg/dL 1.7-2.4 Lab Interpretation (test code = Normal 12928-0) [facility] (NA, K, CL, CO2, GLUCOSE, BUN, CREATININE, CA)2022-06-15 22:23:06 Test Item Value Reference Range Interpretation Comments NA (test code = 138 mmol/L 135-145 0597202435) K (test code = 4.0 mmol/L 3.5-5.0 6202619513) CL (test code = 106 mmol/L 98-108 4946254395) CO2 TOTAL (test code 27 mmol/L 23-31 = 2769047733) AGAP (test code = 2-16 4207207837) BUN (test code = 9 mg/dL 7-23 2046322329) GLUCOSE (test code = 90 mg/dL 70-110 8187603926) CREATININE (test code 0.83 mg/dL 0.50-1.04 = 0398368358) CALCIUM (test code = 9.2 mg/dL 8.6-10.6 7011504724) eGFR (test code = mL/min/1.73m2 1160599253) PEBBLES (test code = PEBBLES) Association of [...] or urine or abnormalities in imaging tests). [facility] [facility]06 Test Item Value Reference Range Interpretation Comments MAGNESIUM (test code = 2425769899) 1.9 mg/dL 1.7-2.4 Lab Interpretation (test code = Normal 00856-7) [facility] WITH [id number] 22:16:47 Test Item Value Reference Range Interpretation Comments WBC (test code = See_Comment [Automated 4390-2) message] The sy stem which generated this [...] RDW-SD (test code = 47.9 fL 39.0-49.9 95006-1) RDW-CV (test code = 13.8 % 12.0-15.5 788-0) PLT (test code = See_Comment H [Automated 777-3) message] The sy stem which generated this result transmitted reference range : 166 - 358 10*3/ ?L. The reference r sourav was not used to interpret this result as normal/abnormal . MPV (test code = 9.6 fL 9.5-12.9 82010-0) NRBC/100 WBC (test See_Comment [Automat ed code = 8114407745) message] The system which generated this result transmitted reference range : 0.0 - 10.0 /100 WBCs. The refer ence range was not u sed to interpret th is result as normal/abnormal . NRBC x10^3 (test code See_Comment [Auto mated = 8322323334) message] The s ystem which generated this result transmitted reference range : 10*3/?L. The reference range was not used to interpret this result as normal/abnormal . GRAN MAT (NEUT) % 71.6 % (test code = 770-8) IMM GRAN % (test code 0.90 % = 4925112796) LYMPH % (test code = 14.8 % 736-9) MONO % (test code = 9.9 % 5905-5) EOS % (test code = 2.3 % 713-8) BASO % (test code = 0.5 % 706-2) GRAN MAT x10^3(ANC) 6.19 10*3/uL 1.88-7.09 (test code = 2170042313) IMM GRAN x10^3 (test 0.08 10*3/uL 0.00-0.06 H code = 1428169316) LYMPH x10^3 (test code 1.28 10*3/uL 1.32-3.29 L = 731-0) MONO x10^3 (test code 0.86 10*3/uL 0.33-0.92 = 742-7) EOS x10^3 (test code = 0.20 10*3/uL 0.03-0.39 711-2) BASO x10^3 (test code 0.04 10*3/uL 0.01-0.07 = 704-7) Lab Interpretation Abnormal (test code = 47254-7) [facility] WITH [id number] 22:16:47 Test Item Value Reference Range Interpretation [...] RDW-SD (test code = 47.9 fL 39.0-49.9 72401-5) RDW-CV (test code = 13.8 % 12.0-15.5 788-0) PLT (test code = See_Comment H [Automated 777-3) message] The sy stem which generated this result transmitted reference range : 166 - 358 10*3/ ?L. The reference r sourav was not used to interpret this result as normal/abnormal . MPV (test code = 9.6 fL 9.5-12.9 01046-7) NRBC/100 WBC (test See_Comment [Automat ed code = 7134483030) message] The system which generated this result transmitted reference range : 0.0 - 10.0 /100 WBCs. The refer ence range was not u sed to interpret th is result as normal/abnormal . NRBC x10^3 (test code See_Comment [Auto mated = 4929502303) message] The s ystem which generated this result transmitted reference range : 10*3/?L. The reference range was not used to interpret this result as normal/abnormal . GRAN MAT (NEUT) % 71.6 % (test code = 770-8) IMM GRAN % (test code 0.90 % = 0429555165) LYMPH % (test code = 14.8 % 736-9) MONO % (test code = 9.9 % 5905-5) EOS % (test code = 2.3 % 713-8) BASO % (test code = 0.5 % 706-2) GRAN MAT x10^3(ANC) 6.19 10*3/uL 1.88-7.09 (test code = 0010610563) IMM GRAN x10^3 (test 0.08 10*3/uL 0.00-0.06 H code = 8114124570) LYMPH x10^3 (test code 1.28 10*3/uL 1.32-3.29 L = 731-0) MONO x10^3 (test code 0.86 10*3/uL 0.33-0.92 = 742-7) EOS x10^3 (test code = 0.20 10*3/uL 0.03-0.39 711-2) BASO x10^3 (test code 0.04 10*3/uL 0.01-0.07 = 704-7) Lab Interpretation Abnormal (test code = 49374-1) [facility]"
[2022-10-07 20:16] LABS: Specific Gravity 1.012 (1.005-1.030); Urine Bacteria None Seen /HPF (<20); Urine Bilirubin NEGATIVE (Negative); Urine Blood Trace (Negative); Urine Clarity Clear (Clear); Urine Color Light-Yellow (Yellow); Urine Glucose NEGATIVE (Negative); Urine Mucus Slight /HPF (None Seen); Urine Protein NEGATIVE (Negative); Urine RBC <5 /HPF (None Seen); Urine Urobilinogen Normal (Normal); Urine pH 5.5 (5.0-7.0)
--- NOTE | 2022-10-07 20:43 | RAD REPORT ---
EXAM DESCRIPTION: [facility] Single View10/07/2022 8:35 pm CLINICAL HISTORY: Cough;Blunt chest trauma COMPARISON: 10/02/2022 and 07/12/2022 TECHNIQUE: Portable AP view of the chest. FINDINGS: The lungs are clear. No pneumothorax or effusion. The cardiomediastinal contours are unrem arkable. Healing/healed right rib fractures, stable. Left clavicle plate, stable. IMPRESSION: No acute cardiopulmonary process.
--- NOTE | 2022-10-07 21:15 | RAD REPORT ---
EXAM DESCRIPTION: CT - Head C Spine Cap Wo Con - 10/07/2022 8:45 pm CLINICAL HISTORY: PAIN. Fall. Pain under left breast. Dizziness and nausea COMPARISON: Chest Abdomen Pelvis W Cont dated 07/12/2022 TECHNIQUE: Head and cervical spine CT images were obtained without IV contrast. Chest, abdomen, and pelvis CT images were obtained also without IV contrast. Multiplanar reformats were generated and rev iewed. All CT scans are performed using dose optimization technique as appropriate and may include automated exposure control or mA/KV adjustment according to patient size. FINDINGS: CT HEAD: No intracranial hemorrhage, mass effect, or edema. No evidence of acute territorial infarct. No midli ne shift or abnormal fluid collection. The ventricles are normal in caliber and configuration for age . Basal cisterns are patent. Mastoid aircells are well aerated. Mucosal thickening and small air-flui d level in the left maxillary sinus. . No acute skull fracture. CT CERVICAL SPINE: No acute cervical spine fracture or subluxation. Vertebral body heights are well maintained. Facet elizabeth ints are normal in alignment. Ldpu-wx-uqkyopwk cervical spine degenerative changes most notably at th e atlanto odontoid articulation. No hyperattenuating canal hematoma. Prevertebral and paraspinous sof t tissues are unremarkable. CT CHEST: No pneumothorax, pulmonary contusion or pleural fluid collection. No mediastinal hematoma and the aor ta and pulmonary arteries are unremarkable. No chest will mass or abnormal axillary finding. No displ aced rib fracture or other significant bony finding. Moderate hiatal hernia is stable. CT ABDOMEN/ PELVIS: No evidence of traumatic injury to solid abdominal viscera. Gallbladder and biliary tree are unremark able. No bowel injury or significant finding. No free air, free fluid or abnormal fat stranding. No u rinary bladder abnormality. No significant bony finding. Healed right iliac wing fracture. Superior endplate compression deformit y at L1, stable. IMPRESSION: No significant CT Head finding. Left maxillary sinus mucosal thickening and air-fluid le maurisio. No significant CT Chest finding. No significant CT Abdomen and Pelvis finding. Stable findings as above.
--- NOTE | 2022-10-07 21:19 | RAD REPORT ---
EXAM DESCRIPTION: RAD - Knee Left 3 View - 10/07/2022 8:35 pm CLINICAL HISTORY: PAIN COMPARISON: Knee Left 2 View dated 11/06/2019; Knee Left 3 View dated 03/12/2016 TECHNIQUE: Left knee, 3 views. FINDINGS: No fracture, dislocation or periosteal reaction.Stable small effusion seen. 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 Nonspecific well-circumscribed lucency in the proximal tib ial metaphysis is stable and benign in appearance, could represent a small bone cyst or a nonossifyin g fibroma. No soft tissue abnormality. Clinical concerns for internal derangement or occult bony injury could be further assessed with MR im aging. IMPRESSION: No acute osseous abnormality. Stable findings as above.
[2022-10-07 21:46] LABS: Absolute Lymphocytes (CBC) 1.6 K/uL (0.7-4.9); Hematocrit 41.1 % (36.0-45.0); MCV 96.5 fL (80-100); Protime INR 1.17; RBC Red Blood Cell Count 4.25 M/uL (3.86-4.86)
[2022-10-07] MEDS ORDERED: CEFTRIAXONE 1000 MG/VIAL ONE (21:58)
[2022-10-07] MEDS ORDERED: NA CHLORIDE 0.9% 500 ML ONE (21:59)
[2022-10-07] MEDS ORDERED: ONDANSETRON 4 MG/2 ML VIAL ONE (21:59)
[2022-10-07] MEDS ORDERED: FAMOTIDINE 20 MG/2 ML VIAL IV ONE (21:59)
[2022-10-07] MEDS ORDERED: NA CHLORIDE 0.9% 1,000 ML ONE (21:59)
[2022-10-07 22:13] LABS: ALT/SGPT 28 U/L (13-56); Albumin 3.9 g/dL (3.4-5.0); Alkaline Phosphatase 162 U/L (45-117); BUN Blood Urea Nitrogen 13 mg/dL (7-18); Bicarbonate 21 mEq/L (21-32); Bilirubin Total 0.3 mg/dL (0.2-1.0); Glomerular Filtration Rate 51 ml/min (=/>90); Glucose Level 88 mg/dL (74-106); Lipase 24 U/L (13-75); NT PRO-BNP 148 pg/mL (<125); Protein, Total 8.2 g/dL (6.4-8.2); Sodium Level 134 mEq/L (136-145); Troponin High Sensitivity 4.2 pg/mL (<58.9)
[2022-10-07 22:27] LABS: AST/SGOT 33 U/L (15-37); Bilirubin Direct < 0.1 mg/dL (0-0.2); Magnesium 1.7 mg/dL (1.6-2.4); Potassium 3.8 mEq/L (3.5-5.1)
--- NOTE | 2022-10-07 22:48 | EDPHYS ---
Physician Documentation [facility] Name: Martha Pradhan Age: 62 yrs Sex: Female : 1960 Arrival Date: 10/07/2022 Time: 18:55 Bed 13 Private MD: S[facility] ED Physician Keyshawn Kaur HPI: 10/07 21:40 This 62 yrs old Female presents to ER via Wheelchair with complaints of Fall eric Injury, Dizziness, Nausea. 21:40 Details of fall: The patient fell from an upright position, while walking. Onset: The eric symptoms/episode began/occurred 5 day(s) ago. Associated injuries: The patient sustained left knee, decreased range of motion. Severity of symptoms: At their worst the symptoms were mild, in the emergency department the symptoms are unchanged. The patient has not experienced similar symptoms in the past. Historical: - Allergies: 19:07 haloperidol lactate; ll1 19:07 hydroxyzine HCl; ll1 19:07 Hydroxyzine Pamoate; ll1 19:07 Ibuprofen; ll1 19:07 Lyrica; ll1 19:07 meloxicam; ll1 19:07 nalbuphine HCl; ll1 19:07 Naproxen; ll1 19:07 NSAIDS (Non-Steroidal Anti-Inflammatory Drug); ll1 19:07 Nubain; ll1 19:07 Risperdal; ll1 19:07 Vistaril; ll1 - PMHx: 19:07 ADD/ADHD; Back pain; Osteoporosis; ULCER; Tachycardia; restless leg syndrome; Anxiety; ll1 PE; Irritable bowel syndrome; GERD; Chronic pain; bleeding ulcers; Arthritis; - PSHx: 19:07 Appendectomy; hysterectomy; left clavicle repair; ll1 - Immunization history:: Adult Immunizations up to date. - Social history:: Smoking status: Patient denies any tobacco usage or history of. ROS: 21:41 Constitutional: Negative for fever, chills, and weight loss, Eyes: Negative for injury, eric pain, redness, and discharge, ENT: Negative for injury, pain, and discharge, Neck: Negative for injury, pain, and swelling, Cardiovascular: Negative for chest pain, palpitations, and edema, Abdomen/GI: Negative for abdominal pain, nausea, vomiting, diarrhea, and constipation, Back: Negative for injury and pain, : Negative for injury, bleeding, discharge, and swelling, Skin: Negative for injury, rash, and discoloration, Neuro: Negative for headache, weakness, numbness, tingling, and seizure, Psych: Negative for depression, anxiety, suicide ideation, homicidal ideation, and hallucinations, Allergy/Immunology: Negative for hives, rash, and allergies, Endocrine: Negative for neck swelling, polydipsia, polyuria, polyphagia, and marked weight changes, Hematologic/Lymphatic: Negative for swollen nodes, abnormal bleeding, and unusual bruising. 21:41 Respiratory: Positive for cough, with no reported sputum. 21:41 MS/extremity: Positive for pain, swelling, of the left knee. Exam: 21:41 Constitutional: This is a well developed, well nourished patient who is awake, alert, eric and in no acute distress. Head/Face: Normocephalic, atraumatic. Eyes: Pupils equal round and reactive to light, extra-ocular motions intact. Lids and lashes normal. Conjunctiva and sclera are non-icteric and not injected. Cornea within normal limits. Periorbital areas with no swelling, redness, or edema. ENT: Nares patent. No nasal discharge, no septal abnormalities noted. Tympanic membranes are normal and external auditory canals are clear. Oropharynx with no redness, swelling, or masses, exudates, or evidence of obstruction, uvula midline. Mucous membranes moist. Neck: Trachea midline, no thyromegaly or masses palpated, and no cervical lymphadenopathy. Supple, full range of motion without nuchal rigidity, or vertebral point tenderness. No Meningismus. Cardiovascular: Regular rate and rhythm with a normal S1 and S2. No gallops, murmurs, or rubs. Normal PMI, no JVD. No pulse deficits. Respiratory: Lungs have equal breath sounds bilaterally, clear to auscultation and percussion. No rales, rhonchi or wheezes noted. No increased work of breathing, no retractions or nasal flaring. Abdomen/GI: Soft, non-tender, with normal bowel sounds. No distension or tympany. No guarding or rebound. No evidence of tenderness throughout. Back: No spinal tenderness. No costovertebral tenderness. Full range of motion. Skin: Warm, dry with normal turgor. Normal color with no rashes, no lesions, and no evidence of cellulitis. MS/ Extremity: Pulses equal, no cyanosis. Neurovascular intact. Full, normal range of motion. Neuro: Awake and alert, GCS 15, oriented to person, place, time, and situation. Cranial nerves II-XII grossly intact. Motor strength 5/5 in all extremities. Sensory grossly intact. Cerebellar exam normal. Normal gait. Psych: Awake, alert, with orientation to person, place and time. Behavior, mood, and affect are within normal limits. 21:41 Chest/axilla: Inspection: normal, Palpation: tenderness, that is mild, of the left breast, Axilla: are normal, no acute changes, Breasts: are normal, Lymph nodes: lymphadenopathy is not appreciated. 23:13 ECG was reviewed by the Attending Physician. [facility] Vital Signs: 19:06 BP 123 / 62; Pulse 84; Resp 18; Temp 98.4(O); Pulse Ox 99% on R/A; Weight 63.5 kg; ll1 Height 5 ft. 0 in. ; Pain 8/10; 22:38 BP 121 / 63; Pulse 74; Resp 16; Temp 98.2(O); Pulse Ox 99% on R/A; aa9 23:26 BP 138 / 74; Pulse 80; Resp 17; Temp 98.2(O); Pulse Ox 100% ; aa9 19:06 Body Mass Index 27.34 (63.50 kg, 152.4 cm) ll1 19:06 Pain Scale: Adult ll1 MDM: 19:11 Patient medically screened. erci 22:46 Differential diagnosis: closed fracture, contusion, abrasion, tendonitis. Differential [facility] diagnosis: closed head injury, contusion, fracture, multiple trauma, sprain, strain. Data reviewed: vital signs, nurses notes, lab test result(s), EKG, radiologic studies. Consideration of Admission/Observation Escalation of care including admission/observation considered. I considered the following discharge prescriptions or medication management in the emergency department Medications were administered in the Emergency Department. See MAR. Test considered but Not performed: Ultrasound NO VENOUS DOPPLER. Care significantly affected by the following chronic conditions: ADD/BACK PAIN/ULCER/TACHY/RLS. Counseling: I had a detailed discussion with the patient and/or guardian regarding: the historical points, exam findings, and any diagnostic results supporting the discharge/admit diagnosis, lab results, radiology results, the need for outpatient follow up, for definitive care, a family practitioner, a orthopedic surgeon. 10/07 19:16 Order name: Basic Metabolic Panel; Complete Time: 22:45 [facility] 10/07 19:16 Order name: CBC with Diff; Complete Time: 22:45 [facility] 10/07 19:16 Order name: LFT's; Complete Time: 22:45 10/07 19:16 Order name: Magnesium; Complete Time: 22:45 10/07 19:16 Order name: NT PRO-BNP; Complete Time: 22:45 [facility] 10/07 19:16 Order name: PT-INR; Complete Time: 22:45 [facility] 10/07 19:16 Order name: Troponin HS; Complete Time: 22:45 [facility] 10/07 19:16 Order name: Lipase; Complete Time: 22:45 [facility] 10/07 19:16 Order name: Urinalysis w/ reflexes; Complete Time: 21:31 [facility] 10/07 20:28 Order name: Urine Culture [facility] 10/07 19:16 Order name: XRAY Chest (1 view); Complete Time: 21:31 [facility] 10/07 19:16 Order name: Knee Left 3 View XRAY; Complete Time: 21:31 [facility] 10/07 19:16 Order name: CT Traumagram (Head C Spine CAP wo con); Complete Time: 21:31 [facility] 10/07 21:39 Order name: INCENTIVE SPIROMETRY [facility] 10/07 19:16 Order name: EKG; Complete Time: 19:18 10/07 19:16 Order name: Cardiac monitoring; Complete Time: 22:38 10/07 19:16 Order name: EKG - Nurse/Tech; Complete Time: 23:25 10/07 19:16 Order name: IV Saline Lock; Complete Time: 20:20 [facility] 10/07 19:16 Order name: Labs collected and sent; Complete Time: 22:38 [facility] 10/07 19:16 Order name: O2 Per Protocol; Complete Time: 22:38 [facility] 10/07 19:16 Order name: O2 Sat Monitoring; Complete Time: 22:38 [facility] EC:13 Rate is 78 beats/min. Rhythm is regular. QRS [place] is Normal. [place] interval is normal. QRS eric interval is normal. QT interval is normal. No Q waves. T waves are Normal. No ST changes noted. Clinical impression: NSR w/ Non-specific ST/T Changes and No evidence of ischemia. Interpreted by me. Reviewed by me. Administered Medications: 22:37 Drug: Rocephin IV 1 grams Route: IV; Rate: per protocol; Site: right forearm; aa9 23:26 Follow up: Response: No adverse reaction; IV Status: Completed infusion; IV Intake: 85zkzx4 22:38 Drug: NS 0.9% IV 500 ml Route: IV; Rate: bolus; Site: right forearm; aa9 23:41 Follow up: Response: No adverse reaction; IV Status: Completed infusion; IV Intake: aa9 500ml 22:38 Drug: NS 0.9% IV 1000 ml Route: IV; Rate: 125 ml/hr; Site: right forearm; aa9 23:41 Follow up: Response: No adverse reaction; IV Status: Completed infusion; IV Intake: aa9 125ml 22:38 Drug: Ondansetron IVP 4 mg Route: IVP; Site: right forearm; aa9 23:26 Follow up: Response: No adverse reaction aa9 22:38 Drug: Famotidine IVP 20 mg Route: IVP; Site: right forearm; aa9 23:26 Follow up: Response: No adverse reaction aa9 Disposition Summary: 10/07/22 22:48 Discharge Ordered Location: Home eric Problem: new eric Symptoms: have improved eric Condition: Stable eric Diagnosis - Fall on same level, unspecified eric - Contusion of left knee eric - Chest pain, unspecified - CONTUSION eric - UTI/ Urinary tract infection, site not specified eric - Strain of muscle and tendon of front wall of thorax eric Followup: eric - With: - When: 2 - 3 days - Reason: Recheck today's complaints, Continuance of care, Re-evaluation by your physician Followup: eric - With: Rene Diaz MD - When: 2 - 3 days - Reason: Recheck today's complaints, Continuance of care, Re-evaluation by your physician Discharge Instructions: - Discharge Summary Sheet eric - Chest Wall Pain eric - Urinary Tract Infection, Adult eric - Chest Wall Pain, Iqpt-[id number] eric - Fall Prevention in the Home, Adult, Jqsk-gi-Sohp eric - Acute Knee Pain, Adult, Vshb-[id number]-Bdxh eric Forms: - Medication Reconciliation Form eric - Thank You Letter eric - Antibiotic Education eric - Prescription Opioid Use eric Prescriptions: - acetaminophen-codeine 300-30 mg Oral tablet - take 1 tablet by ORAL route every 4-6 hours as needed for pain; 20 tablet; [facility] Refills: 0, Product Selection Permitted - Bactrim DS 800-160 mg Oral Tablet - take 1 tablet by ORAL route every 12 hours for 7 days; 14 tablet; Refills: 0, [facility] Product Selection Permitted Signatures: Dispatcher [employer] Keyshawn Jefferson MD MD cha Lewis, Lynsay RN RN ll1 Payton Jacob RN RN aa9
--- NOTE | 2022-10-07 22:48 | ER ---
Nurse's Notes [facility] Name: Martha Pradhan Age: 62 yrs Sex: Female : 1960 Arrival Date: 10/07/2022 Time: 18:55 Bed 13 Private MD: Nirmal Hancock Diagnosis: Fall on same level, unspecified;Contusion of left knee;Chest pain, unspecified-CONTUSION;UTI/ Urinary tract infection, site not specified;Strain of muscle and tendon of front wall of thorax Presentation: 10/07 19:04 Chief complaint: Patient states: "two nights ago I was walking my dog and got twisted ll1 in the leash. I fell down and hit my left knee. It hurts underneath my left breast as well. It's gotten worse. I started feeling dizzy this morning and an hour ago I started feeling nauseous. I also been having real bad diarrhea a few nights ago". 19:04 Acuity: ROSALBA 3 ll1 19:04 Method Of Arrival: Wheelchair ll1 19:06 Coronavirus screen: Vaccine status: Patient reports receiving the 2nd dose of the covid ll1 vaccine. Ebola Screen: No symptoms or risks identified at this time. Initial Sepsis Screen: Does the patient meet any 2 criteria? No. Patient's initial sepsis screen is negative. Does the patient have a suspected source of infection? No. Patient's initial sepsis screen is negative. Risk Assessment: Do you want to hurt yourself or someone else? Patient reports no desire to harm self or others. Onset of symptoms was October 07, 2022. Triage Assessment: 19:14 General: Appears in no apparent distress. Behavior is cooperative. Pain: Complains of ll1 pain in left knee and left breast. Neuro: [place] Agitation-Sedation Scale (RASS): 0 - Alert and Calm Level of Consciousness is awake, alert, obeys commands, Oriented to person, place, time, situation. Neuro: Reports dizziness. Cardiovascular: Patient's skin is warm and dry. Respiratory: Airway is patent Respiratory effort is even, unlabored, Respiratory pattern is regular, symmetrical. Derm: Skin is pink, warm \\T\\ dry. Musculoskeletal: Range of motion: intact in all extremities. Historical: - Allergies: 19:07 haloperidol lactate; ll1 19:07 hydroxyzine HCl; ll1 19:07 Hydroxyzine Pamoate; ll1 19:07 Ibuprofen; ll1 19:07 Lyrica; ll1 19:07 meloxicam; ll1 19:07 nalbuphine HCl; ll1 19:07 Naproxen; ll1 19:07 NSAIDS (Non-Steroidal Anti-Inflammatory Drug); ll1 19:07 Nubain; ll1 19:07 Risperdal; ll1 19:07 Vistaril; ll1 - PMHx: 19:07 ADD/ADHD; Back pain; Osteoporosis; ULCER; Tachycardia; restless leg syndrome; Anxiety; ll1 PE; Irritable bowel syndrome; GERD; Chronic pain; bleeding ulcers; Arthritis; - PSHx: 19:07 Appendectomy; hysterectomy; left clavicle repair; ll1 - Immunization history:: Adult Immunizations up to date. - Social history:: Smoking status: Patient denies any tobacco usage or history of. Screenin:26 [facility] ED Fall Risk Assessment (Adult) History of falling in the last 3 months, aa9 including since admission No falls in past 3 months (0 pts) Confusion or Disorientation No (0 pts) Intoxicated or Sedated No (0 pts) Impaired Gait No (0 pts) Mobility Assist Device Used Yes (1 pt) Altered Elimination No (0 pt) Score/Fall Risk Level 0 - 2 = Low Risk Oriented to surroundings, Maintained a safe environment. Abuse screen: Denies threats or abuse. Denies injuries from another. Nutritional screening: No deficits noted. Tuberculosis screening: No symptoms or risk factors identified. Assessment: 22:39 General: Appears comfortable, Behavior is calm, cooperative. Pain: Complains of pain in aa9 left arm and left knee. Neuro: Level of Consciousness is awake, alert, obeys commands, Oriented to person, place, time, situation. Cardiovascular: Denies chest pain, Rhythm is regular. Respiratory: Airway is patent Trachea midline Respiratory effort is even, unlabored. 23:41 Reassessment: Patient appears in no apparent distress at this time. Patient and/or aa9 family updated on plan of care and expected duration. Pain level reassessed. Patient is alert, oriented x 3, equal unlabored respirations, skin warm/dry/pink. Vital Signs: 19:06 BP 123 / 62; Pulse 84; Resp 18; Temp 98.4(O); Pulse Ox 99% on R/A; Weight 63.5 kg; ll1 Height 5 ft. 0 in. ; Pain 8/10; 22:38 BP 121 / 63; Pulse 74; Resp 16; Temp 98.2(O); Pulse Ox 99% on R/A; aa9 23:26 BP 138 / 74; Pulse 80; Resp 17; Temp 98.2(O); Pulse Ox 100% ; aa9 19:06 Body Mass Index 27.34 (63.50 kg, 152.4 cm) ll1 19:06 Pain Scale: Adult ll1 ED Course: 18:58 Patient arrived in ED. mr 18:58 Nirmal Hancock DO is Private Physician. mr 19:06 Triage completed. ll1 19:08 Arm band placed on. ll1 19:11 Keyshawn Kaur MD is Attending Physician. eric 20:20 Inserted saline lock: 20 gauge in right forearm, using aseptic technique. bc6 20:37 XRAY Chest (1 view) In Process Unspecified. EDMS 20:37 Knee Left 3 View XRAY In Process Unspecified. EDMS 20:47 CT Traumagram (Head C Spine CAP wo con) In Process Unspecified. EDMS 21:46 Payton Jacob, ALEXANDRA is Primary Nurse. aa9 22:48 Nirmal Hancock DO is Referral Physician. eric 22:48 Rene Diaz MD is Referral Physician. eric 23:27 Patient has correct armband on for positive identification. Placed in gown. Call light aa9 in reach. Side rails up X2. Adult w/ patient. Client placed on continuous cardiac and pulse oximetry monitoring. NIBP monitoring applied. 23:27 No provider procedures requiring assistance completed. aa9 Administered Medications: 22:37 Drug: Rocephin IV 1 grams Route: IV; Rate: per protocol; Site: right forearm; aa9 23:26 Follow up: Response: No adverse reaction; IV Status: Completed infusion; IV Intake: [id number] 22:38 Drug: NS 0.9% IV 500 ml Route: IV; Rate: bolus; Site: right forearm; aa9 23:41 Follow up: Response: No adverse reaction; IV Status: Completed infusion; IV Intake: aa9 500ml 22:38 Drug: NS 0.9% IV 1000 ml Route: IV; Rate: 125 ml/hr; Site: right forearm; aa9 23:41 Follow up: Response: No adverse reaction; IV Status: Completed infusion; IV Intake: aa9 125ml 22:38 Drug: Ondansetron IVP 4 mg Route: IVP; Site: right forearm; aa9 23:26 Follow up: Response: No adverse reaction aa9 22:38 Drug: Famotidine IVP 20 mg Route: IVP; Site: right forearm; aa9 23:26 Follow up: Response: No adverse reaction aa9 Medication: 23:27 VIS not applicable for this client. aa9 Intake: 23:26 IV: 10ml; Total: 10ml. aa9 23:41 IV: 500ml; Total: 510ml. aa9 23:41 IV: 125ml; Total: 635ml. aa9 Outcome: 22:48 Discharge ordered by . eric 23:41 Patient left the ED. aa9 Signatures: Dispatcher [employer] EDMS Keyshawn Kaur MD MD cha Rivera, Annie mr Minda David RN RN ll1 Payton Jacob RN RN aa9 Francisca Pelayo bc6
[2022-10-08 01:23] VITALS: TEMP 98.2
[2022-10-08 01:25] VITALS: BP 138/74; O2SAT 100
--- NOTE | 2022-10-08 07:00 | EKG ---
Test Date: 2022-10-07 Test Time: 23:08:06 [employer]: LEONARDO MEASUREMENT RESULTS: Intervals: Rate: 78 WV: 160 QRSD: 90 QT: 406 QTc: 462 [place]: P: 49 WV: 160 QRS: 43 T: 38 INTERPRETIVE STATEMENTS: Normal sinus rhythm Normal ECG Compared to ECG 10/02/2022 12:49:26 No significant changes Electronically Signed On 10-08-22 06:59:41 CDT by Nehemiah Mckinney
== END 2022-10-07 23:41 | disposition home or self-care (01) ==
LOC: ER 18:55
DX: S80.02XA Contusion of left knee, initial encounter (principal); S20.212A Contusion of left front wall of thorax, initial encounter; S29.011A Strain of muscle and tendon of front wall of thorax, initial encounter; N39.0 Urinary tract infection, site not specified; W18.30XA Fall on same level, unspecified, initial encounter; Z88.5 Allergy status to narcotic agent; Z88.6 Allergy status to analgesic agent; Z88.8 Allergy status to other drugs, medicaments and biological substances
CPT/HCPCS: 93005; 87088; 85025; 81001; 87086; 80048; 36415; 83735; 85610; 80076; 84484; 83690; 83880; 70450; 71250; 72125; 71045; 73562; J2405; J7040; J7030; J0696

== ENCOUNTER → 2023-08-29 | Emergency (ER) | payer OTHER ==
--- NOTE | 2023-08-29 10:52 | ER ---
Nurse's Notes [facility] Name: Martha Pradhan Age: 62 yrs Sex: Female : 1960 Arrival Date: 08/29/2023 Time: 10:39 Bed 3 Private MD: Diagnosis: Supraventricular tachycardia Presentation: 08/28 10:49 Chief complaint: EMS states: called out for high heart rate 170's at home. Coronavirus ko1 screen: At this time, the client does not indicate any symptoms associated with coronavirus-19. Ebola Screen: No symptoms or risks identified at this time. Initial Sepsis Screen: Does the patient meet any 2 criteria? No. Patient's initial sepsis screen is negative. Does the patient have a suspected source of infection? No. Patient's initial sepsis screen is negative. Risk Assessment: Do you want to hurt yourself or someone else? Patient reports no desire to harm self or others. Onset of symptoms was August 29, 2023. Care prior to arrival: Medication(s) given: Adenosine, 12 mg, x 1, Normal saline infusion, 1000 mL, IV initiated. 20 GA, in the right wrist. Transition of care: patient was not received from another setting of care. 10:49 Method Of Arrival: EMS: [facility] ko1 10:49 Acuity: ROSALBA 3 ko1 Triage Assessment: 10:51 General: Appears in no apparent distress. Behavior is calm, cooperative, appropriate ko1 for age. Pain: Denies pain. Historical: - Allergies: 10:51 haloperidol lactate; ko1 10:51 hydroxyzine HCl; ko1 10:51 Hydroxyzine Pamoate; ko1 10:51 Ibuprofen; ko1 10:51 Lyrica; ko1 10:51 meloxicam; ko1 10:51 Naproxen; ko1 10:51 NSAIDS (Non-Steroidal Anti-Inflammatory Drug); ko1 10:51 Nubain; ko1 10:51 nalbuphine HCl; ko1 10:51 Risperdal; ko1 10:51 Vistaril; ko1 - PMHx: 10:51 ADD/ADHD; Anxiety; Arthritis; Back pain; bleeding ulcers; Chronic pain; GERD; Irritable ko1 bowel syndrome; Osteoporosis; PE; restless leg syndrome; Tachycardia; ULCER; - PSHx: 10:51 Appendectomy; hysterectomy; left clavicle repair; ko1 - Immunization history:: Adult Immunizations unknown. - Social history:: Smoking status: Patient denies any tobacco usage or history of. Screenin:52 [facility] ED Fall Risk Assessment (Adult) History of falling in the last 3 months, ko1 including since admission No falls in past 3 months (0 pts) Confusion or Disorientation No (0 pts) Intoxicated or Sedated No (0 pts) Impaired Gait No (0 pts) Mobility Assist Device Used No (0 pt) Altered Elimination No (0 pt) Score/Fall Risk Level 0 - 2 = Low Risk Oriented to surroundings, Maintained a safe environment, Educated pt \T\ family on fall prevention, incl call for assistance when getting out of bed, Assessed \T\ reinforced patient's understanding of fall precautions, Provided non-skid footwear, Hourly rounding (assess needs \T\ fall precautionary measures) done, Used ambulatory aids as needed (educated on \T\ assisted with), Used gait belt as appropriate. Abuse screen: Denies threats or abuse. Denies injuries from another. Nutritional screening: No deficits noted. Tuberculosis screening: No symptoms or risk factors identified. Assessment: 10:52 Neuro: No deficits noted. Cardiovascular: Reports high heart rate at home, low blood ko1 pressure. Rhythm is sinus rhythm. Respiratory: No deficits noted. GI: No deficits noted. : No deficits noted. EENT: No deficits noted. Derm: No deficits noted. Musculoskeletal: No deficits noted. Vital Signs: 10:49 BP 134 / 76; Pulse 85; Resp 15; Temp 97; Pulse Ox 98% on R/A; ko1 11:06 BP 128 / 78; Pulse 82; Resp 15; Pulse Ox 98% on R/A; ko1 ED Course: 10:42 Patient arrived in ED. ms3 10:42 Gael Ko DO is Attending Physician. ms3 10:49 Ella Amaya, ALEXANDRA is Primary Nurse. ko1 10:51 Triage completed. ko1 10:51 Eddie Teran MD is Referral Physician. ms3 10:51 Arm band placed on right wrist. Patient placed in an exam room, on a stretcher, on ko1 monitoring and evaluation advisor, on pulse oximetry, Patient notified of wait time. 10:52 Patient has correct armband on for positive identification. Allergy band placed. Bed in ko1 low position. Call light in reach. Side rails up X2. Provided Education on: na. Client placed on continuous cardiac and pulse oximetry monitoring. NIBP monitoring applied. monitoring and evaluation advisor on. Door closed. Noise minimized. Warm blanket given. 10:52 No provider procedures requiring assistance completed. Maintain EMS IV. Dressing ko1 intact. Good blood return noted. Site clean \T\ dry. Gauge \T\ site: 20g right wrist. 11:00 EKG done, by ED staff, reviewed by Gael Ko DO. ko1 11:06 IV discontinued, intact, bleeding controlled, No redness/swelling at site. Pressure ko1 dressing applied. Administered Medications: No medications were administered Medication: :52 VIS not applicable for this client. ko1 Outcome: :52 Discharge ordered by . ms3 11:06 Discharged to home ambulatory, with family, ko1 11:06 Condition: improved 11:06 Discharge instructions given to patient, family, Instructed on discharge instructions, follow up and referral plans. Demonstrated understanding of instructions, follow-up care, medications, 11:07 Patient left the ED. ko1 Signatures: Gael Ko DO DO ms3 Ella Amaya, RN RN ko1
--- NOTE | 2023-08-29 10:52 | EDPHYS ---
Physician Documentation [facility] Name: Martha Pradhan Age: 62 yrs Sex: Female : 1960 Arrival Date: 08/29/2023 Time: 10:39 Bed 3 Private MD: ED Physician Gael Ko HPI: 08/28 10:52 This 62 yrs old Female presents to ER via EMS with complaints of Palpitations. ms3 10:52 62-year-old female with past medical history of peptic ulcer disease, anxiety, back ms3 pain, arthritis, ADD/ADHD, SVT presents to the emergency department via [facility]. Patient states she felt a rapid heart rate this morning and her pulse oximeter was reading 170. EMS was called. On EMS arrival patient's heart rate was 170 with a blood pressure of 70/30. EMS administered 12 mg adenosine with IV fluids that resolved patient's SVT after vagal maneuvers did not work. Patient denies pain at this time. Patient states she feels normal.. Historical: - Allergies: 10:51 haloperidol lactate; ko1 10:51 hydroxyzine HCl; ko1 10:51 Hydroxyzine Pamoate; ko1 10:51 Ibuprofen; ko1 10:51 Lyrica; ko1 10:51 meloxicam; ko1 10:51 Naproxen; ko1 10:51 NSAIDS (Non-Steroidal Anti-Inflammatory Drug); ko1 10:51 Nubain; ko1 10:51 nalbuphine HCl; ko1 10:51 Risperdal; ko1 10:51 Vistaril; ko1 - PMHx: 10:51 ADD/ADHD; Anxiety; Arthritis; Back pain; bleeding ulcers; Chronic pain; GERD; Irritable ko1 bowel syndrome; Osteoporosis; PE; restless leg syndrome; Tachycardia; ULCER; - PSHx: 10:51 Appendectomy; hysterectomy; left clavicle repair; ko1 - Immunization history:: Adult Immunizations unknown. - Social history:: Smoking status: Patient denies any tobacco usage or history of. ROS: 10:52 Constitutional: Negative for fever, and chills. Neck: Negative for injury, pain, and ms3 swelling, 10:52 Respiratory: Negative for shortness of breath, cough, wheezing, and pleuritic chest pain, Abdomen/GI: Negative for abdominal pain, nausea, vomiting, diarrhea, and constipation, MS/Extremity: Negative for injury and deformity, Skin: Negative for injury, rash, and discoloration, 10:52 Cardiovascular: Positive for palpitations, Exam: 10:52 Constitutional: This is a well developed, well nourished patient who is awake, alert, ms3 and in no acute distress. Head/Face: Normocephalic, atraumatic. Neck: Trachea midline, no cervical lymphadenopathy. Supple, full range of motion without nuchal rigidity, or vertebral point tenderness. No Meningismus. Chest/axilla: Normal chest wall appearance and motion. Nontender with no deformity. Cardiovascular: Regular rate and rhythm with a normal S1 and S2. No gallops, murmurs, or rubs. Normal PMI, no JVD. No pulse deficits. Respiratory: Lungs have equal breath sounds bilaterally, clear to auscultation and percussion. No rales, rhonchi or wheezes noted. No increased work of breathing, no retractions or nasal flaring. Abdomen/GI: Soft, non-tender, with normal bowel sounds. No distension or tympany. No guarding or rebound. No evidence of tenderness throughout. Skin: Warm, dry with normal turgor. Normal color with no rashes, no lesions, and no evidence of cellulitis. MS/ Extremity: Pulses equal, no cyanosis. Neurovascular intact. Full, normal range of motion. 10:55 ECG was reviewed by the Attending Physician. ms3 Vital Signs: 10:49 BP 134 / 76; Pulse 85; Resp 15; Temp 97; Pulse Ox 98% on R/A; ko1 11:06 BP 128 / 78; Pulse 82; Resp 15; Pulse Ox 98% on R/A; ko1 MDM: 10:42 Patient medically screened. ms3 10:52 Differential diagnosis: arrythmia. Data reviewed: vital signs, nurses notes, EKG, and ms3 as a result, I will discharge patient. Independent interpretation of the following test(s) in the Emergency Department EKG: See my EKG interpretation above. Historians other than the Patient: EMS: [facility]. Counseling: I had a detailed discussion with the patient and/or guardian regarding the historical points, exam findings, and any diagnostic results supporting the discharge/admit diagnosis, the need for outpatient follow up, to return to the emergency department if symptoms worsen or persist or if there are any questions or concerns that arise at home. Special discussion: I discussed with the patient/guardian in detail that at this point there is no indication for admission to the hospital. It is understood, however, that if the symptoms persist or worsen the patient needs to return immediately for re-evaluation. ED course: Patient states she does not wish to have labs drawn at this time. Patient agreed to EKG which shows normal sinus rhythm. Patient to follow-up with Dr. Teran in 2 to 3 days. Patient understands and agrees with plan. All questions were answered. Return precautions discussed include palpitations, lightheadedness, shortness of breath, worsening symptoms, or any other concerns. 08/28 10:43 Order name: EKG; Complete Time: 10:43 ms3 08/28 10:43 Order name: EKG - Nurse/Tech; Complete Time: 10:49 ms3 EC:55 Rate is 82 beats/min. Rhythm is regular. QRS [place] is Normal. [place] interval is normal. QRS ms3 interval is normal. QT interval is normal. Clinical impression: Normal ECG. Interpreted by me. Reviewed by me. Administered Medications: No medications were administered Disposition Summary: 08/29/23 10:52 Discharge Ordered Notes: Location: Home ms3 Condition: Stable ms3 Diagnosis - Supraventricular tachycardia ms3 Followup: ms3 - With: Eddie Teran MD - When: 2 - 3 days - Reason: Re-evaluation by your physician Discharge Instructions: - Discharge Summary Sheet ms3 - Chemical Cardioversion ms3 - Supraventricular Tachycardia, Adult, [id number] ms3 Forms: - Medication Reconciliation Form ms3 - Thank You Letter ms3 - Antibiotic Education ms3 - Prescription Opioid Use ms3 - Patient Portal Instructions ms3 - Leadership Thank You Letter ms3 Signatures: Gael Ko DO DO ms3 Ella Amaya, RN RN ko1
--- OUTSIDE RECORDS SUMMARY | 2023-08-29 10:52 | XMS REPORT | Continuity of Care Document ---
Author Name Unknown Address [address] [facility] [address] [place] [address] [facility] Address [address] [facility] [place] [address] Care Team Providers Care Unloading Checker Name Role Phone [place] RidgeLani Julieta Primary Care Physician Nirmal Hancock Attending Clinician Unavailable NIVIA BESS Attending Clinician Unavailable JODY ALBRECHT Attending Clinician Unavailable Nirmal Hancock Attending Clinician [phone] Doctor Unassigned, Gay Attending Clinician U patricia Steele MD, Betito Arita Attending Clinician + [phone] LUPE CAMPOS Attending Clinician Unavailab Khurram MORRIS, Dino Mcconnell Attending Clinician Unavail able TIFFANI DARBY Attending Clinician Unavailable TIFFANI DARBY Attending Clinician Unavailable Sharif Castañeda CRNA Attending Clinician [phone] Geovanna TEE, Alexandru Garcia Attending Clinician [phone] Kristan Monroe CRNA Attending Clinician [phone] Nivia Bess MD Attending Clinician Call, [facility] Phone Attending Clinician Unavail able Only, Adc Test Attending Clinician Unavailable JOE MORALES Attending Clinician Unavailabl e ROGELIO Attending Clinician Unavailable SHERWIN NASH Attending Clinician Unavail able SHERWIN NASH Attending Clinician Unavail able NIVIA BESS Admitting Clinician Unavailable TIFFANI DARBY Admitting Clinician Unavailable Nivia Bess MD Admitting Clinician [phone] ROGELIO Admitting Clinician Unavailable Payers Payer Name Policy Type Policy Number Effective Date Expirati on Date Source [facility] COMMUNITY PLAN STAR [id number] 2012 00:00:00 2022 00:00:00 [facility] DUAL COMP HMO D SNP [id number] 2020 00:00:00 [place] [id number] 2020 00:00:00 [facility] [place] ST[place] [id number] 2013 00:00:00 [facility] WELLMED [id number] 2020 00:00:00 2024 00:00:00 [facility] Dual Complete Choice (Regional PPO D-SNP) 53 [id number] 2019 00:00:00 [facility] [id number] 2012 00:00:00 [facility] [id number] 2012 00:00:00 [facility] [id number] 2012 00:00:00 [facility] [place]: [employer] [id number] 2006 00:00:00 [facility] - COMMUNITY PLAN - DUAL COMPLETE - SNP PLAN (MEDICARE REPLACEMENT HMO) [id number] [facility] [place] STAR PLUS (MEDICAID HMO) [id number] 2018 00:00:00 Problems Condition Name Condition Details Condition Category Status Onset Date Resolution Date Last Treatment Date Treating Clinician Comments Source GI bleed GI bleed Disease Active 06-14 00:00: 00 [facility] Peptic ulcer disease Peptic ulcer disease Disease Active 6-15 00:00: 00 Overview: Formattin g of this note might be different from the original. Added automatic ally from request for surgery [id number] [facility] Multiple gastric ulcers Multiple gastric ulcers Disease Active 07-15 00:00: 00 Overview: Formattin g of this note might be different from the original. Added automatic ally from request for surgery [id number] [facility] Hiatal hernia Hiatal hernia Disease Active 2019-06 00:00: 00 [facility] Post-op pain Post-op pain Disease Active 2015-06 00:00: 00 [facility] Chronic neck pain Chronic neck pain Disease Active 06-23 00:00: 00 [facility] Anxiety disorder Anxiety disorder Disease Active 06-23 00:00: 00 [facility] [id number] DDD (degenerat ceferino disc disease), cervical Problem [facility] [id number] Attention deficit hyperactiv ity disorder (ADHD), combined type Problem [facility] [id number] Panic disorder [episodic paroxysmal anxiety] Problem [facility] [id number] GERD without esophagiti s Problem [facility] [id number] Atheroscle rosis of abdominal aorta Problem [facility] [id number] +5th digit eff 03/13/20*CK D (chronic kidney disease) stage 3, GFR 30-59 ml/min Problem Common [facility] [id number] Generalize d anxiety disorder Problem [facility] [id number] PTSD (post-trau matic stress disorder) Problem [facility] [id number] Bilateral tinnitus Problem [facility] [id number] Current moderate episode of major depressive disorder without prior episode Problem [facility] [id number] Osteoporos is, unspecifie d osteoporos is type, unspecifie d pathologic al fracture presence Problem [facility] [id number] Irritable bowel syndrome with both constipati on and diarrhea Problem [facility] [id number] Milk-alkal i syndrome Problem [facility] [id number] Allergic rhinitis, unspecifie d seasonalit y, unspecifie d trigger Problem [facility] [id number] Mixed hyperlipid emia Problem [facility] [id number] Stage 3a chronic kidney disease Problem [facility] 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 Problem [facility] [id number] Osteoarthr itis of multiple joints, unspecifie d osteoarthr itis type Problem [facility] [id number] History of uterine cancer Problem [facility] [id number] Chronic pain syndrome Problem [facility] Chronic vascular insufficie ncy of intestine Superior mesenteric artery atheroscle rosis Problem [facility] [id number] Elevated liver enzymes Problem [facility] [id number] Urinary incontinen ce, unspecifie d type Problem [facility] Anemia of chronic renal failure Anemia associated with chronic renal failure Problem [facility] 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 Problem [facility] Thrombocyt osis Thrombocyt osis Problem [facility] [id number] Essential thrombocyt osis Problem [facility] Chronic fatigue syndrome Chronic fatigue Problem [facility] Iron deficiency anemia Other iron deficiency anemia Problem [facility] [id number] Primary osteoarthr itis of left knee Problem [facility] [id number] Primary osteoarthr itis of right knee Problem [facility] Anemia in chronic kidney disease Anemia in chronic kidney disease Problem [facility] Hypercalce shahnaz Hypercalce shahnaz Problem [facility] [id number] Shoulder arthritis Problem [facility] Anemia due to blood loss Anemia due to blood loss Problem [facility] [id number] SVT (supravent ricular tachycardi a) Problem [facility] Supraventr icular dysrhythmi a Supraventr icular dysrhythmi a Disease Active [facility] Chronic low back pain Chronic low back pain Disease Active [facility] Allergies, Adverse Reactions, Alerts Allergy Name Allergy Type Status Severity Reaction(s) Onset Date Inactive Date Treating Clinician Comments Source Haloperi dol Lactate Propensi ty to adverse reaction s Active Anaphylaxis 07-17 00:00: 00 [facility] Etodolac Propensi ty to adverse reaction s Active Anaphylaxis 07-17 00:00: 00 [facility] HALOPERI DOL LACTATE DRUG INGREDI Active Anaphylaxis 07-17 00:00: 00 [facility] ETODOLAC DRUG INGREDI Active Anaphylaxis 07-17 00:00: 00 [facility] Pregabal in Propensi ty to adverse reaction s Active Hallucinatio ns 2014-06 00:00: 00 [facility] PREGABAL IN DRUG INGREDI Active Hallucinates 2014-06 00:00: 00 [facility] Nsaids Propensi ty to adverse reaction s Active Anaphylaxis 2014-06 00:00: 00 [facility] Meloxica m Propensi ty to adverse reaction s Active Other - See comments 2014-06 00:00: 00 Seizures [facility] Nsaids (Non-Stepan roidal Anti-Inf lammator y Drug) Propensi ty to adverse reaction s Active Anaphylaxis 2014-06 00:00: 00 [facility] Nalbuphi ne Hcl Propensi ty to adverse reaction s Active Anaphylaxis 2014-06 00:00: 00 [facility] Vistaril Im (Hcl Salt) Propensi ty to adverse reaction s Active Extra pyramidal effects 2014-06 00:00: 00 [facility] Nsaids (Non-Stepan roidal Anti-Inf lammator y Drug) Propensi ty to adverse reaction s Active Anaphylaxis 2014-06 00:00: 00 [facility] MELOXICA M DRUG INGREDI Active Other-Cmnt 2014-06 00:00: 00 [facility] NSAIDS (NON-STEPAN ROIDAL ANTI-INF LAMMATOR Y DRUG) Drug Class Active Anaphylaxis 2014-06 00:00: 00 [facility] NALBUPHI NE HCL DRUG INGREDI Active Anaphylaxis 2014-06 00:00: 00 [facility] VISTARIL IM (HCL SALT) DRUG Active EP Effects 2014-06 00:00: 00 [facility] [id number] Drug allergy Active throat closes [facility] hydroxyz ine hydroxyz ine Active seizure [facility] 81752 Drug allergy Active throat closes [facility] pregabal in pregabal in Active throat closes [facility] etodolac etodolac Active throat closes [facility] ibuprofe n ibuprofe n Active throat closes [facility] meloxica m meloxica m Active seizure [facility] Family History Family Member Diagnosis Comments Start Date Stop Date Sourc e Natural father Cancer [facility] Natural mother Hypertension [facility] Social History Social Habit Start Date Stop Date Quantity Comments Source History of tobacco use Passive smoker [facility] History SDOH Social Connections Get Together [facility] History SDOH Social Connections [facility] History SDOH Social Connections Membership [facility] History SDOH Social Connections Meetings [facility] Gender identity [facility] Sexual orientation [facility] Alcoholic beverage intake 2023-08-02 00:00:00 2023-08-02 00:00:00 Lifetime non-drinker (finding) [facility] History of Social function 2023-08-02 00:00:00 2023-08-02 00:00:00 [facility] Exposure to SARS-CoV-2 (event) 2022-11-01 00:00:00 2022-11-11 12:54:00 Not sure [facility] Alcohol intake 2022-11-11 00:00:00 2022-11-11 00:00:00 Lifetime non-drinker (finding) [facility] Tobacco use and exposure 2022-08-12 00:00:00 2022-08-12 00:00:00 Smokeless tobacco non-user [facility] Tobacco Comment 2022-06-15 00:00:00 2022-06-15 00:00:00 stopped 02/22/2013 [facility] History SDOH Alcohol Frequency 2022-06-14 00:00:00 2022-06-14 00:00:00 1 [facility] History SDOH Alcohol Std Drinks 2022-06-14 00:00:00 2022-06-14 00:00:00 0 [facility] History SDOH Alcohol Binge 2022-06-14 00:00:00 2022-06-14 00:00:00 1 [facility] History SDOH Social Connections Phone 2022-06-14 00:00:00 2022-06-14 00:00:00 3 [facility] History SDOH Social Connections Living 2022-06-14 00:00:00 2022-06-14 00:00:00 5 [facility] History SDOH Physical Activity DPW 2022-06-14 00:00:00 2022-06-14 00:00:00 0 [facility] History SDOH Physical Activity MPS 2022-06-14 00:00:00 2022-06-14 00:00:00 0 [facility] History SDOH Financial 2022-06-14 00:00:00 2022-06-14 00:00:00 5 [facility] History SDOH Food Worry 2022-06-14 00:00:00 2022-06-14 00:00:00 1 [facility] History SDOH Food Scarcity 2022-06-14 00:00:00 2022-06-14 00:00:00 1 [facility] History SDOH Transport Med 2022-06-14 00:00:00 2022-06-14 00:00:00 2 [facility] History SDOH Transport Non-Med 2022-06-14 00:00:00 2022-06-14 00:00:00 2 [facility] Sex assigned at 1960 00:00:00 1960 00:00:00 [facility] Smoking Status Start Date Stop Date Source Never smoked tobacco [facility] th Ex-smoker 2022-06-15 00:00:00 2022-06-15 00:00:00 [facility] Medications Ordered Medication Name Filled Medication Name Start Date Stop Date Current Medication? Ordering Clinician Indication Dosage Frequency Signature (SIG) Comments Components Source methylPREDN ISolone (Medrol) 4 MG tablet 08-02 00:00: 00 08-03 05:59 :00 Yes [id number] 4mg Take 1 tablet (4 mg total) by mouth 1 (one) time for 1 dose. Take as instructed by packaging [facility] methylPREDN ISolone (Medrol) 4 MG tablet 08-02 00:00: 00 08-02 00:00 :00 No [id number] 4mg Take 1 tablet (4 mg total) by mouth 1 (one) time for 1 dose. Take as instructed by packaging [facility] Kenalog (Triamcinol one) Kenalog (Triamcinol one) 11-30 00:00: 00 No 40mg [facility] Kenalog (Triamcinol one) Kenalog (Triamcinol one) 0 6- 00:00: 00 No 40mg [facility] Kenalog (Triamcinol one) Kenalog (Triamcinol one) -20 00:00: 00 No 40mg [facility] Kenalog (Triamcinol one) Kenalog (Triamcinol one) 6-20 00:00: 00 No 40mg [facility] Kenalog (Triamcinol one) Kenalog (Triamcinol one) 0 6-20 00:00: 00 No 40mg [facility] Kenalog (Triamcinol one) Kenalog (Triamcinol one) -20 00:00: 00 No 40mg [facility] metoprolol tartrate (Lopressor) 25 MG tablet 02 13:32: 19 Yes 50mg Take 50 mg by mouth. [facility] metoprolol tartrate (Lopressor) 25 MG tablet 0 08-12 13:32: 19 Yes 50mg Take 50 mg by mouth. [facility] metoprolol tartrate (Lopressor) 25 MG tablet 0 08-12 13:32: 19 Yes 50mg Take 50 mg by mouth. [facility] metoprolol tartrate (Lopressor) 25 MG tablet 0 08-12 13:32: 19 Yes 50mg Take 50 mg by mouth. [facility] dicyclomine (Bentyl) 20 MG tablet 0 2 00:00: 00 Yes [facility] dicyclomine (Bentyl) 20 MG tablet 0 08-09 00:00: 00 Yes [facility] dicyclomine (Bentyl) 20 MG tablet 0 08-09 00:00: 00 Yes [facility] dicyclomine (Bentyl) 20 MG tablet 0 08-09 00:00: 00 Yes [facility] dexlansopra zole (Dexilant) [address] capsule 0 2- 00:00: 00 Yes [facility] famotidine (Pepcid) 40 MG tablet 0 - 00:00: 00 Yes [facility] dexlansopra zole (Dexilant) [address] capsule 0 - 00:00: 00 Yes [facility] famotidine (Pepcid) 40 MG tablet 0 - 00:00: 00 Yes [facility] dexlansopra zole (Dexilant) [address] capsule 0 - 00:00: 00 Yes [facility] famotidine (Pepcid) 40 MG tablet 0 - 00:00: 00 Yes [facility] dexlansopra zole (Dexilant) [address] capsule 0 2- 00:00: 00 Yes [facility] famotidine (Pepcid) 40 MG tablet 0 2- 00:00: 00 Yes [facility] dexmethylph enidate XR (Focalin XR) 15 MG 24 hr capsule 2022-0 2-24 00:00: 00 Yes [facility] dexmethylph enidate XR (Focalin XR) 15 MG 24 hr capsule 2022-0 2-24 00:00: 00 Yes [facility] dexmethylph enidate XR (Focalin XR) 15 MG 24 hr capsule 2-24 00:00: 00 Yes [facility] dexmethylph enidate XR (Focalin XR) 15 MG 24 hr capsule 2-24 00:00: 00 Yes [facility] ALPRAZolam (Xanax) 0.5 MG tablet 2-22 00:00: 00 Yes [facility] ALPRAZolam (Xanax) 0.5 MG tablet 2- 00:00: 00 Yes [facility] ALPRAZolam (Xanax) 0.5 MG tablet 2- 00:00: 00 Yes [facility] ALPRAZolam (Xanax) 0.5 MG tablet - 00:00: 00 Yes [facility] pantoprazol e (PROTONIX) EC tablet 40 mg 06-17 02:00: 00 Yes 40mg 40 mg, Oral, BID, First dose on Tue06/16/22 at 1999, Until Discontinu ed, Routine [facility] metoprolol tartrate (LOPRESSOR) 25 mg tablet 06-16 15:23: 23 Yes 50mg Take 50 mg by mouth in the morning and 50 mg in the evening. [facility] dicyclomine 20 mg tablet 06-16 15:23: 23 Yes 20mg Take 20 mg by mouth in the morning and 20 mg in the evening. [facility] FLUoxetine 40 mg capsule 06-16 15:23: 23 Yes 40mg Take 40 mg by mouth in the morning and 40 mg in the evening. [facility] OLANZapine 2.5 mg tablet 06-16 15:23: 23 Yes 1mg Take 1 mg by mouth in the morning and 1 mg in the evening. [facility] ALPRAZolam (XANAX) 1 mg tablet 06-16 15:23: 23 Yes 1mg Take 1 mg by mouth in the morning and 1 mg in the evening. [facility] metoprolol tartrate (LOPRESSOR) 25 mg tablet 06-16 15:23: 23 Yes 50mg Take 50 mg by mouth in the morning and 50 mg in the evening. [facility] dicyclomine 20 mg tablet 06-16 15:23: 23 Yes 20mg Take 20 mg by mouth in the morning and 20 mg in the evening. [facility] FLUoxetine 40 mg capsule 06-16 15:23: 23 Yes 40mg Take 40 mg by mouth in the morning and 40 mg in the evening. [facility] OLANZapine 2.5 mg tablet 06-16 15:23: 23 Yes 1mg Take 1 mg by mouth in the morning and 1 mg in the evening. [facility] ALPRAZolam (XANAX) 1 mg tablet 06-16 15:23: 23 Yes 1mg Take 1 mg by mouth in the morning and 1 mg in the evening. [facility] metoprolol tartrate (LOPRESSOR) 25 mg tablet 06-16 15:23: 23 Yes 50mg Take 50 mg by mouth in the morning and 50 mg in the evening. [facility] dicyclomine 20 mg tablet 06-16 15:23: 23 Yes 20mg Take 20 mg by mouth in the morning and 20 mg in the evening. [facility] FLUoxetine 40 mg capsule 06-16 15:23: 23 Yes 40mg Take 40 mg by mouth in the morning and 40 mg in the evening. [facility] OLANZapine 2.5 mg tablet 06-16 15:23: 23 Yes 1mg Take 1 mg by mouth in the morning and 1 mg in the evening. [facility] ALPRAZolam (XANAX) 1 mg tablet 06-16 15:23: 23 Yes 1mg Take 1 mg by mouth in the morning and 1 mg in the evening. [facility] metoprolol tartrate (LOPRESSOR) 25 mg tablet 06-16 15:23: 23 Yes 50mg Take 50 mg by mouth in the morning and 50 mg in the evening. [facility] dicyclomine 20 mg tablet 06-16 15:23: 23 Yes 20mg Take 20 mg by mouth in the morning and 20 mg in the evening. [facility] FLUoxetine 40 mg capsule 06-16 15:23: 23 Yes 40mg Take 40 mg by mouth in the morning and 40 mg in the evening. [facility] OLANZapine 2.5 mg tablet 06-16 15:23: 23 Yes 1mg Take 1 mg by mouth in the morning and 1 mg in the evening. [facility] ALPRAZolam (XANAX) 1 mg tablet 06-16 15:23: 23 Yes 1mg Take 1 mg by mouth in the morning and 1 mg in the evening. [facility] metoprolol tartrate (LOPRESSOR) 25 mg tablet 06-16 15:23: 23 Yes 50mg Take 50 mg by mouth in the morning and 50 mg in the evening. [facility] dicyclomine 20 mg tablet 06-16 15:23: 23 Yes 20mg Take 20 mg by mouth in the morning and 20 mg in the evening. [facility] FLUoxetine 40 mg capsule 06-16 15:23: 23 Yes 40mg Take 40 mg by mouth in the morning and 40 mg in the evening. [facility] OLANZapine 2.5 mg tablet 06-16 15:23: 23 Yes 1mg Take 1 mg by mouth in the morning and 1 mg in the evening. [facility] metoprolol tartrate (LOPRESSOR) 25 mg tablet 06-16 15:23: 23 Yes 50mg Take 50 mg by mouth in the morning and 50 mg in the evening. [facility] dicyclomine 20 mg tablet 06-16 15:23: 23 Yes 20mg Take 20 mg by mouth in the morning and 20 mg in the evening. [facility] FLUoxetine 40 mg capsule 06-16 15:23: 23 Yes 40mg Take 40 mg by mouth in the morning and 40 mg in the evening. [facility] OLANZapine 2.5 mg tablet 06-16 15:23: 23 Yes 1mg Take 1 mg by mouth in the morning and 1 mg in the evening. [facility] metoprolol tartrate (LOPRESSOR) 25 mg tablet 06-16 15:23: 23 Yes 50mg Take 50 mg by mouth in the morning and 50 mg in the evening. [facility] dicyclomine 20 mg tablet 06-16 15:23: 23 Yes 20mg Take 20 mg by mouth in the morning and 20 mg in the evening. [facility] FLUoxetine 40 mg capsule 06-16 15:23: 23 Yes 40mg Take 40 mg by mouth in the morning and 40 mg in the evening. [facility] OLANZapine 2.5 mg tablet 06-16 15:23: 23 Yes 1mg Take 1 mg by mouth in the morning and 1 mg in the evening. [facility] metoprolol tartrate (LOPRESSOR) 25 mg tablet 06-16 15:23: 23 Yes 50mg Take 50 mg by mouth in the morning and 50 mg in the evening. [facility] dicyclomine 20 mg tablet 06-16 15:23: 23 Yes 20mg Take 20 mg by mouth in the morning and 20 mg in the evening. [facility] FLUoxetine 40 mg capsule 06-16 15:23: 23 Yes 40mg Take 40 mg by mouth in the morning and 40 mg in the evening. [facility] OLANZapine 2.5 mg tablet 06-16 15:23: 23 Yes 1mg Take 1 mg by mouth in the morning and 1 mg in the evening. [facility] metoprolol tartrate (LOPRESSOR) 25 mg tablet 06-16 15:23: 23 Yes 50mg Take 50 mg by mouth in the morning and 50 mg in the evening. [facility] dicyclomine 20 mg tablet 06-16 15:23: 23 Yes 20mg Take 20 mg by mouth in the morning and 20 mg in the evening. [facility] FLUoxetine 40 mg capsule 06-16 15:23: 23 Yes 40mg Take 40 mg by mouth in the morning and 40 mg in the evening. [facility] metoprolol tartrate (LOPRESSOR) 25 mg tablet 06-16 15:23: 23 Yes 50mg Take 50 mg by mouth in the morning and 50 mg in the evening. [facility] dicyclomine 20 mg tablet 06-16 15:23: 23 Yes 20mg Take 20 mg by mouth in the morning and 20 mg in the evening. [facility] FLUoxetine 40 mg capsule 06-16 15:23: 23 Yes 40mg Take 40 mg by mouth in the morning and 40 mg in the evening. [facility] metoprolol tartrate (LOPRESSOR) 25 mg tablet 06-16 15:23: 23 Yes 50mg Take 50 mg by mouth in the morning and 50 mg in the evening. [facility] dicyclomine 20 mg tablet 06-16 15:23: 23 Yes 20mg Take 20 mg by mouth in the morning and 20 mg in the evening. [facility] FLUoxetine 40 mg capsule 06-16 15:23: 23 Yes 40mg Take 40 mg by mouth in the morning and 40 mg in the evening. [facility] metoprolol tartrate (LOPRESSOR) 25 mg tablet 06-16 15:23: 23 Yes 50mg Take 50 mg by mouth in the morning and 50 mg in the evening. [facility] dicyclomine 20 mg tablet 06-16 15:23: 23 Yes 20mg Take 20 mg by mouth in the morning and 20 mg in the evening. [facility] FLUoxetine 40 mg capsule 06-16 15:23: 23 Yes 40mg Take 40 mg by mouth in the morning and 40 mg in the evening. [facility] metoprolol tartrate (LOPRESSOR) 25 mg tablet 06-16 15:23: 23 Yes 50mg Take 50 mg by mouth in the morning and 50 mg in the evening. [facility] dicyclomine 20 mg tablet 06-16 15:23: 23 Yes 20mg Take 20 mg by mouth in the morning and 20 mg in the evening. [facility] FLUoxetine 40 mg capsule 06-16 15:23: 23 Yes 40mg Take 40 mg by mouth in the morning and 40 mg in the evening. [facility] metoprolol tartrate (LOPRESSOR) 25 mg tablet 06-16 15:23: 23 Yes 50mg Take 50 mg by mouth in the morning and 50 mg in the evening. [facility] dicyclomine 20 mg tablet 06-16 15:23: 23 Yes 20mg Take 20 mg by mouth in the morning and 20 mg in the evening. [facility] FLUoxetine 40 mg capsule 06-16 15:23: 23 Yes 40mg Take 40 mg by mouth in the morning and 40 mg in the evening. [facility] OLANZapine 2.5 mg tablet 06-16 15:23: 23 Yes 1mg Take 1 mg by mouth in the morning and 1 mg in the evening. [facility] ALPRAZolam (XANAX) 1 mg tablet 06-16 15:23: 23 Yes 1mg Take 1 mg by mouth in the morning and 1 mg in the evening. [facility] metoprolol tartrate (LOPRESSOR) 25 mg tablet 06-16 15:23: 23 Yes 50mg Take 50 mg by mouth in the morning and 50 mg in the evening. [facility] dicyclomine 20 mg tablet 06-16 15:23: 23 Yes 20mg Take 20 mg by mouth in the morning and 20 mg in the evening. [facility] FLUoxetine 40 mg capsule 06-16 15:23: 23 Yes 40mg Take 40 mg by mouth in the morning and 40 mg in the evening. [facility] OLANZapine 2.5 mg tablet 06-16 15:23: 23 Yes 1mg Take 1 mg by mouth in the morning and 1 mg in the evening. [facility] ALPRAZolam (XANAX) 1 mg tablet 06-16 15:23: 23 Yes 1mg Take 1 mg by mouth in the morning and 1 mg in the evening. [facility] pantoprazol e (PROTONIX) 40 mg EC tablet 06-16 11:30: 43 06-16 00:00 :00 No 40mg Take 40 mg by mouth in the morning and 40 mg in the evening. [facility] pantoprazol e (PROTONIX) 40 mg EC tablet 06-16 11:30: 43 06-16 00:00 :00 No 40mg Take 40 mg by mouth in the morning and 40 mg in the evening. [facility] metoprolol tartrate (LOPRESSOR) 25 mg tablet 06-16 11:30: 39 Yes 50mg Take 50 mg by mouth in the morning and 50 mg in the evening. [facility] dicyclomine 20 mg tablet 06-16 11:30: 39 Yes 20mg Take 20 mg by mouth in the morning and 20 mg in the evening. [facility] FLUoxetine 40 mg capsule 06-16 11:30: 39 Yes 40mg Take 40 mg by mouth in the morning and 40 mg in the evening. [facility] OLANZapine 2.5 mg tablet 06-16 11:30: 39 Yes 1mg Take 1 mg by mouth in the morning and 1 mg in the evening. [facility] ALPRAZolam (XANAX) 1 mg tablet 06-16 11:30: 39 Yes 1mg Take 1 mg by mouth in the morning and 1 mg in the evening. [facility] dexmethylph enidate 15 mg 24 hr capsule 06-16 00:00: 00 Yes 15mg Take 1 capsule by mouth in the morning. [facility] pantoprazol e (PROTONIX) 40 mg EC tablet 06-16 00:00: 00 Yes [id number] 40mg Take 1 tablet by mouth in the morning and 1 tablet in the evening. [facility] dexmethylph enidate 15 mg 24 hr capsule 06-16 00:00: 00 Yes 15mg Take 1 capsule by mouth in the morning. [facility] pantoprazol e (PROTONIX) 40 mg EC tablet 06-16 00:00: 00 Yes [id number] 40mg Take 1 tablet by mouth in the morning and 1 tablet in the evening. [facility] dexmethylph enidate 15 mg 24 hr capsule 06-16 00:00: 00 Yes 15mg Take 1 capsule by mouth in the morning. [facility] pantoprazol e (PROTONIX) 40 mg EC tablet 06-16 00:00: 00 Yes [id number] 40mg Take 1 tablet by mouth in the morning and 1 tablet in the evening. [facility] dexmethylph enidate 15 mg 24 hr capsule 06-16 00:00: 00 Yes 15mg Take 1 capsule by mouth in the morning. [facility] pantoprazol e (PROTONIX) 40 mg EC tablet 06-16 00:00: 00 Yes [id number] 40mg Take 1 tablet by mouth in the morning and 1 tablet in the evening. [facility] dexmethylph enidate 15 mg 24 hr capsule 06-16 00:00: 00 Yes 15mg Take 1 capsule by mouth in the morning. [facility] pantoprazol e (PROTONIX) 40 mg EC tablet 06-16 00:00: 00 Yes [id number] 40mg Take 1 tablet by mouth in the morning and 1 tablet in the evening. [facility] dexmethylph enidate 15 mg 24 hr capsule 06-16 00:00: 00 Yes 15mg Take 1 capsule by mouth in the morning. [facility] pantoprazol e (PROTONIX) 40 mg EC tablet 06-16 00:00: 00 Yes [id number] 40mg Take 1 tablet by mouth in the morning and 1 tablet in the evening. [facility] dexmethylph enidate 15 mg 24 hr capsule 06-16 00:00: 00 Yes 15mg Take 1 capsule by mouth in the morning. [facility] pantoprazol e (PROTONIX) 40 mg EC tablet 06-16 00:00: 00 Yes [id number] 40mg Take 1 tablet by mouth in the morning and 1 tablet in the evening. [facility] pantoprazol e (ProtoNix) 40 MG EC tablet 06-16 00:00: 00 Yes 40mg Q.5D Take 40 mg by mouth 2 (two) times a day, in the morning and at bedtime. [facility] pantoprazol e (ProtoNix) 40 MG EC tablet 06-16 00:00: 00 Yes 40mg Q.5D Take 40 mg by mouth 2 (two) times a day, in the morning and at bedtime. [facility] pantoprazol e (ProtoNix) 40 MG EC tablet 06-16 00:00: 00 Yes 40mg Q.5D Take 40 mg by mouth 2 (two) times a day, in the morning and at bedtime. [facility] pantoprazol e (ProtoNix) 40 MG EC tablet 06-16 00:00: 00 Yes 40mg Q.5D Take 40 mg by mouth 2 (two) times a day, in the morning and at bedtime. [facility] lactated ringers IV infusion 500 mL 06-15 17:15: 00 06-15 17:45 :48 No 500mL at 100 mL/hr, 500 mL, Intravenou s, ONCE, 1 dose, On Tue06/15/22 at 1115, Routine [facility] dicyclomine (BENTYL) tablet 20 mg 06-15 15:00: 00 Yes 20mg 20 mg, Oral, BID, First dose on Tue06/15/22 at 0900, Until Discontinu ed, Routine [facility] dicyclomine (BENTYL) tablet 20 mg 06-15 15:00: 00 Yes 20mg 20 mg, Oral, BID, First dose on Tue06/15/22 at 0900, Until Discontinu ed, Routine [facility] pantoprazol e (PROTONIX) injection 40 mg 06-15 02:00: 00 Yes 40mg 40 mg, Slow IV Push, Q12H, First dose on Tue06/14/22 at 2000, Until Discontinu ed [facility] pantoprazol e (PROTONIX) injection 40 mg 06-15 02:00: 00 06-16 20:37 :34 No 40mg 40 mg, Slow IV Push, Q12H, First dose on Tue06/14/22 at 1999, Until Discontinu ed [facility] alum-mag hydroxide-s imeth (MAALOX PLUS / MAG-AL PLUS) 200-200-20 mg/5 mL suspension 30 mL 06-14 21:45: 09 Yes 30mL 30 mL, Oral, Q6HPRN, Starting on Tue06/14/22 at 1545, Until Discontinu ed, Routine, Indigestio n [facility] alum-mag hydroxide-s imeth (MAALOX PLUS / MAG-AL PLUS) 200-200-20 mg/5 mL suspension 30 mL 06-14 21:45: 09 Yes 30mL 30 mL, Oral, Q6HPRN, Starting on Tue06/14/22 at 1545, Until Discontinu ed, Routine, Indigestio n [facility] NaCl 0.9% (NS) injection 10 mL 06-14 21:43: 50 Yes 10mL 10 mL, Slow IV Push, PRN, Starting on Tue06/14/22 at 1543, Until Discontinu ed, Routine, line maintenanc e [facility] NaCl 0.9% (NS) injection 10 mL 06-14 21:43: 50 Yes 10mL 10 mL, Slow IV Push, PRN, Starting on Tue06/14/22 at 1543, Until Discontinu ed, Routine, line maintenanc e [facility] lidocaine 1% (PF) (XYLOCAINE) injection 5 mL 06-14 21:43: 49 Yes 5mL 5 mL, Subcutaneo us, PRN, Starting on Tue06/14/22 at 1543, Until Discontinu ed, Routine, Local anesthesia [facility] lidocaine 1% (PF) (XYLOCAINE) injection 5 mL 06-14 21:43: 49 Yes 5mL 5 mL, Subcutaneo us, PRN, Starting on Tue06/14/22 at 1543, Until Discontinu ed, Routine, Local anesthesia [facility] lactated ringers IV infusion 500 mL 06-14 18:45: 00 06-14 17:57 :02 No 500mL at 999 mL/hr, 500 mL, Intravenou s, ONCE, 1 dose, On Tue06/14/22 at 1245, Routine [facility] metoprolol (LOPRESSOR) injection 5 mg 06-14 18:30: 00 06-14 17:36 :00 No 5mg 5 mg, Intravenou s, ONCE, 1 dose, On Tue06/14/22 at 1230, Routine [facility] metoprolol (LOPRESSOR) injection 5 mg 06-14 18:00: 00 06-14 17:26 :00 No 5mg 5 mg, Intravenou s, ONCE, 1 dose, On Tue06/14/22 at 1200, Routine [facility] FLUoxetine (PROZAC) capsule 40 mg 06-14 14:00: 00 Yes 40mg 40 mg, Oral, BID, First dose on Tue06/14/22 at 0800, Until Discontinu ed, [facility] OL[facility] (ZyPREXA[facility] tablet 1.25 mg 06-14 14:00: 00 Yes 1.25mg 1.25 mg, Oral, BID, First dose on Tue06/14/22 at 0800, Until Discontinu ed, Routine [facility] metoprolol tartrate (LOPRESSOR) tablet 50 mg 06-14 14:00: 00 Yes 50mg 50 mg, Oral, BID, First dose on Tue06/14/22 at 0800, Until Discontinu ed, [facility] ALPR[facility] (XANAX) tablet 1 mg 06-14 14:00: 00 Yes 1mg 1 mg, Oral, BID, First dose on Tue06/14/22 at 0800, Until Discontinu ed, [facility] FLU[facility] ([facility]ZAC) capsule 40 mg 06-14 14:00: 00 Yes 40mg 40 mg, Oral, BID, First dose on Tue06/14/22 at 0800, Until Discontinu ed, [facility] OLAN[facility] (ZyPREXA) tablet 1.25 mg 06-14 14:00: 00 Yes 1.25mg 1.25 mg, Oral, BID, First dose on Tue06/14/22 at 0800, Until Discontinu ed, Routine [facility] metoprolol tartrate (LOPRESSOR) tablet 50 mg 06-14 14:00: 00 Yes 50mg 50 mg, Oral, BID, First dose on Tue06/14/22 at 0800, Until Discontinu ed, Routine [facility] ALPRAZolam (XANAX) tablet 1 mg 06-14 14:00: 00 Yes 1mg 1 mg, Oral, BID, First dose on Tue06/14/22 at 0800, Until Discontinu ed, Routine [facility] iron sucrose (VENOFER) 200 mg in NaCl 0.9% (NS) 100 mL infusion 06-14 09:30: 00 06-14 14:12 :00 No 200mg 200 mg, IV Infusion, ONCE, Administer over 2.5 Hours, On Tue06/14/22 at 0330, For 1 dose [facility] KCL (KLOR-CON M20) tablet 20 mEq 06-14 09:00: 00 06-14 08:45 :00 No 20meq 20 mEq, Oral, ONCE, 1 dose, On Tue06/14/22 at 0300, Routine [facility] magnesium sulfate in water 2 gram/50 mL (4 %) infusion 2 g 06-14 09:00: 00 06-14 09:52 :00 No 2g 2 g, IV Piggyback, Administer over 60 Minutes, ONCE, 1 dose, On Tue06/14/22 at 0300, Routine [facility] NaCl 0.9% (NS) bolus infusion 2,000 mL 06-14 07:30: 00 06-14 08:43 :30 No 2000mL at 999 mL/hr, 2,000 mL, IV Piggyback, ONCE, 1 dose, On Tue06/14/22 at 0130, STAT [facility] guaiFENesin 100 mg/5 mL solution 200 mg 06-14 07:23: 38 Yes 200mg 200 mg, Oral, Q4HPRN, Starting on Tue06/14/22 at 0123, Until Discontinu ed, Routine, Cough [facility] guaiFENesin 100 mg/5 mL solution 200 mg 06-14 07:23: 38 Yes 200mg 200 mg, Oral, Q4HPRN, Starting on Tue06/14/22 at 0123, Until Discontinu ed, Routine, Cough [facility] pantoprazol e (PROTONIX) injection 40 mg 06-14 06:15: 00 06-14 06:38 :00 No 40mg 40 mg, Slow IV Push, Q12H, First dose on Tue06/14/22 at 0015, Until Discontinu ed [facility] acetaminoph en (TYLENOL) tablet 650 mg 06-14 06:14: 56 Yes 650mg 650 mg, Oral, Q6HPRN, Starting on Tue06/14/22 at 0014, Until Discontinu ed, Routine, Pain (scale 1-3) [facility] acetaminoph en (TYLENOL) tablet 650 mg 06-14 06:14: 56 Yes 650mg 650 mg, Oral, Q6HPRN, Starting on Tue06/14/22 at 0014, Until Discontinu ed, Routine, Pain (scale 1-3) [facility] metoprolol tartrate (LOPRESSOR) 25 mg tablet 06-14 00:44: 38 Yes 50mg Take 50 mg by mouth in the morning and 50 mg in the evening. [facility] dicyclomine 20 mg tablet 06-14 00:44: 38 Yes 20mg Take 20 mg by mouth in the morning and 20 mg in the evening. [facility] FLUoxetine 40 mg capsule 06-14 00:44: 38 Yes 40mg Take 40 mg by mouth in the morning and 40 mg in the evening. [facility] OLANZapine 2.5 mg tablet 06-14 00:44: 38 Yes 1mg Take 1 mg by mouth in the morning and 1 mg in the evening. [facility] pantoprazol e (PROTONIX) 40 mg EC tablet 06-14 00:44: 38 Yes 40mg Take 40 mg by mouth in the morning and 40 mg in the evening. [facility] ALPRAZolam (XANAX) 1 mg tablet 06-14 00:44: 38 Yes 1mg Take 1 mg by mouth in the morning and 1 mg in the evening. [facility] metoprolol tartrate (LOPRESSOR) 25 mg tablet 06-14 00:44: 38 Yes 50mg Take 50 mg by mouth in the morning and 50 mg in the evening. [facility] dicyclomine 20 mg tablet 06-14 00:44: 38 Yes 20mg Take 20 mg by mouth in the morning and 20 mg in the evening. [facility] FLUoxetine 40 mg capsule 06-14 00:44: 38 Yes 40mg Take 40 mg by mouth in the morning and 40 mg in the evening. [facility] OLANZapine 2.5 mg tablet 06-14 00:44: 38 Yes 1mg Take 1 mg by mouth in the morning and 1 mg in the evening. [facility] pantoprazol e (PROTONIX) 40 mg EC tablet 06-14 00:44: 38 Yes 40mg Take 40 mg by mouth in the morning and 40 mg in the evening. [facility] ALPRAZolam (XANAX) 1 mg tablet 06-14 00:44: 38 Yes 1mg Take 1 mg by mouth in the morning and 1 mg in the evening. [facility] clonazePAM (KLONOPIN) 1 mg tablet 06-14 00:44: 38 06-14 00:00 :00 No 1mg Take 1 mg by mouth as needed. [facility] clonazePAM (KLONOPIN) 1 mg tablet 06-14 00:44: 38 06-14 00:00 :00 No 1mg Take 1 mg by mouth as needed. [facility] clonazePAM (KLONOPIN) 1 mg tablet 06-14 00:44: 38 06-14 00:00 :00 No 1mg Take 1 mg by mouth as needed. [facility] clonazePAM (KLONOPIN) 1 mg tablet 06-14 00:44: 38 06-14 00:00 :00 No 1mg Take 1 mg by mouth as needed. [facility] (KLONOPIN) 1 mg tablet 06-14 00:44: 38 06-14 00:00 :00 No 1mg Take 1 mg by mouth as needed. [facility] Lidocaine Lidocaine 2021-06 00:00: 00 No 10mg [facility] Kenalog (Triamcinol one) Kenalog (Triamcinol one) 2021-06 00:00: 00 No 40mg [facility] Lidocaine Lidocaine 2021-06 00:00: 00 No 10mg [facility] Kenalog (Triamcinol one) Kenalog (Triamcinol one) 2021-06 00:00: 00 No 40mg [facility] Lidocaine Lidocaine 2021-06 00:00: 00 No 10mg [facility] Kenalog (Triamcinol one) Kenalog (Triamcinol one) 2021-06 00:00: 00 No 40mg [facility] Lidocaine Lidocaine 2021-06 00:00: 00 No 10mg [facility] Kenalog (Triamcinol one) Kenalog (Triamcinol one) 2021-06 00:00: 00 No 40mg [facility] Lidocaine Lidocaine 2021-06 00:00: 00 No 10mg [facility] Kenalog (Triamcinol one) Kenalog (Triamcinol one) 2021-06 00:00: 00 No 40mg [facility] Lidocaine Lidocaine 2021-06 00:00: 00 No 10mg [facility] Kenalog (Triamcinol one) Kenalog (Triamcinol one) 2021-06 00:00: 00 No 40mg [facility] Lidocaine Lidocaine 2021-06 00:00: 00 No 10mg [facility] Kenalog (Triamcinol one) Kenalog (Triamcinol one) 2021-06 00:00: 00 No 40mg [facility] Lidocaine Lidocaine 2021-06 00:00: 00 No 10mg [facility] Kenalog (Triamcinol one) Kenalog (Triamcinol one) 2021-06 00:00: 00 No 40mg [facility] Lidocaine Lidocaine 2021-06 00:00: 00 No 10mg [facility] Kenalog (Triamcinol one) Kenalog (Triamcinol one) 2021-06 00:00: 00 No 40mg [facility] Lidocaine Lidocaine 2021-06 00:00: 00 No 10mg [facility] Kenalog (Triamcinol one) Kenalog (Triamcinol one) 2021-06 00:00: 00 No 40mg [facility] Lidocaine Lidocaine 2021-06 00:00: 00 No 10mg [facility] Kenalog (Triamcinol one) Kenalog (Triamcinol one) 2021-06 00:00: 00 No 40mg [facility] Kenalog (Triamcinol one) Kenalog (Triamcinol one) 2021-06 00:00: 00 No 40mg [facility] Kenalog (Triamcinol one) Kenalog (Triamcinol one) 2021-06 00:00: 00 No 40mg [facility] Kenalog (Triamcinol one) Kenalog (Triamcinol one) 2021-06 00:00: 00 No 40mg [facility] Kenalog (Triamcinol one) Kenalog (Triamcinol one) 2021-06 00:00: 00 No 40mg [facility] Kenalog (Triamcinol one) Kenalog (Triamcinol one) 2021-06 00:00: 00 No 40mg [facility] Kenalog (Triamcinol one) Kenalog (Triamcinol one) 2021-06 00:00: 00 No 40mg [facility] Kenalog (Triamcinol one) Kenalog (Triamcinol one) 2021-06 00:00: 00 No 40mg [facility] Kenalog (Triamcinol one) Kenalog (Triamcinol one) 2021-06 00:00: 00 No 40mg [facility] Kenalog (Triamcinol one) Kenalog (Triamcinol one) 2021-06 00:00: 00 No 40mg [facility] Kenalog (Triamcinol one) Kenalog (Triamcinol one) 2021-06 00:00: 00 No 40mg [facility] Kenalog (Triamcinol one) Kenalog (Triamcinol one) 2021-06 00:00: 00 No 40mg [facility] Kenalog (Triamcinol one) Kenalog (Triamcinol one) 2021-06 00:00: 00 No 40mg [facility] Kenalog (Triamcinol one) Kenalog (Triamcinol one) 2021-06 00:00: 00 No 40mg [facility] Kenalog (Triamcinol one) Kenalog (Triamcinol one) 2021-06 00:00: 00 No 40mg [facility] Kenalog (Triamcinol one) Kenalog (Triamcinol one) 2021-06 00:00: 00 No 40mg [facility] Kenalog (Triamcinol one) Kenalog (Triamcinol one) 2021-06 00:00: 00 No 40mg [facility] Kenalog (Triamcinol one) Kenalog (Triamcinol one) 2021-06 00:00: 00 No 40mg [facility] Kenalog (Triamcinol one) Kenalog (Triamcinol one) 2021-06 00:00: 00 No 40mg [facility] Kenalog (Triamcinol one) Kenalog (Triamcinol one) 2021-06 00:00: 00 No 40mg [facility] Kenalog (Triamcinol one) Kenalog (Triamcinol one) 2021-06 00:00: 00 No 40mg [facility] Kenalog (Triamcinol one) Kenalog (Triamcinol one) 2021-06 00:00: 00 No 40mg [facility] Kenalog (Triamcinol one) Kenalog (Triamcinol one) 2021-06 00:00: 00 No 40mg [facility] Kenalog (Triamcinol one) Kenalog (Triamcinol one) 2021-06 00:00: 00 No 40mg [facility] Kenalog (Triamcinol one) Kenalog (Triamcinol one) 2021-06 00:00: 00 No 40mg [facility] Kenalog (Triamcinol one) Kenalog (Triamcinol one) 2021-06 00:00: 00 No 40mg [facility] Kenalog (Triamcinol one) Kenalog (Triamcinol one) 2021-06 00:00: 00 No 40mg [facility] Kenalog (Triamcinol one) Kenalog (Triamcinol one) 2021-06 00:00: 00 No 40mg [facility] Kenalog (Triamcinol one) Kenalog (Triamcinol one) 2021-06 00:00: 00 No 40mg [facility] Kenalog (Triamcinol one) Kenalog (Triamcinol one) 2021-06 0-12 00:00: 00 No 40mg [facility] Kenalog (Triamcinol one) Kenalog (Triamcinol one) 2021-06 0-12 00:00: 00 No 40mg [facility] Kenalog (Triamcinol one) Kenalog (Triamcinol one) 2021-06 0-12 00:00: 00 No 40mg [facility] Kenalog (Triamcinol one) Kenalog (Triamcinol one) 2021-06 0-12 00:00: 00 No 40mg [facility] Kenalog (Triamcinol one) Kenalog (Triamcinol one) 2021-06 0-12 00:00: 00 No 40mg [facility] Kenalog (Triamcinol one) Kenalog (Triamcinol one) 2021-06 0-12 00:00: 00 No 40mg [facility] Kenalog (Triamcinol one) Kenalog (Triamcinol one) 2021-06 0-12 00:00: 00 No 40mg [facility] Kenalog (Triamcinol one) Kenalog (Triamcinol one) 2021-06 0-12 00:00: 00 No 40mg [facility] Kenalog (Triamcinol one) Kenalog (Triamcinol one) 2021-06 0-12 00:00: 00 No 40mg [facility] Kenalog (Triamcinol one) Kenalog (Triamcinol one) 2021-06 0-12 00:00: 00 No 40mg [facility] Kenalog (Triamcinol one) Kenalog (Triamcinol one) 2021-06 0-12 00:00: 00 No 40mg [facility] Kenalog (Triamcinol one) Kenalog (Triamcinol one) 2021-06 0-12 00:00: 00 No 40mg [facility] Kenalog (Triamcinol one) Kenalog (Triamcinol one) 2021-06 0-12 00:00: 00 No 40mg [facility] Kenalog (Triamcinol one) Kenalog (Triamcinol one) 2021-06 0-12 00:00: 00 No 40mg [facility] Kenalog (Triamcinol one) Kenalog (Triamcinol one) 2021-06 0-12 00:00: 00 No 40mg [facility] Kenalog (Triamcinol one) Kenalog (Triamcinol one) 2021-06 0-12 00:00: 00 No 40mg [facility] Kenalog (Triamcinol one) Kenalog (Triamcinol one) 2021-06 0-12 00:00: 00 No 40mg [facility] Bupivicaine Bogard Bupivicaine Bogard 0 4-26 00:00: 00 No 2.5mg [facility] Kenalog (Triamcinol one) Kenalog (Triamcinol one) 0 4- 00:00: 00 No 40mg [facility] Bupivicaine Bogard Bupivicaine Bogard 2021-0 10-06 00:00: 00 No 2.5mg [facility] Kenalog (Triamcinol one) Kenalog (Triamcinol one) 0 4- 00:00: 00 No 40mg [facility] Bupivicaine Bogard Bupivicaine Bogard 2021-0 - 00:00: 00 No 2[facility]mg [facility] Kenalog (Triamcinol one) Kenalog (Triamcinol one) 0 4- 00:00: 00 No 40[facility] Bupivicaine Bogard Bupivicaine Bogard 2021-0 4- 00:00: 00 No 2.5mg [facility] Kenalog (Triamcinol one) Kenalog (Triamcinol one) 0 10-06 00:00: 00 No 40[facility] Bupivicaine Bogard Bupivicaine Bogard 0 10-06 00:00: 00 No 2.5mg [facility] Kenalog (Triamcinol one) Kenalog (Triamcinol one) 0 10-06 00:00: 00 No 40[facility] Bupivicaine Bogard Bupivicaine Bogard 0 10-06 00:00: 00 No 2.5mg [facility] Kenalog (Triamcinol one) Kenalog (Triamcinol one) 0 10-06 00:00: 00 No 40[facility] Bupivicaine Bogard Bupivicaine Bogard 0 10-06 00:00: 00 No 2.5mg [facility] Kenalog (Triamcinol one) Kenalog (Triamcinol one) 0 10-06 00:00: 00 No 40mg [facility] Bupivicaine Bogard Bupivicaine Bogard 0 10-06 00:00: 00 No 2.5mg [facility] Kenalog (Triamcinol one) Kenalog (Triamcinol one) 0 10-06 00:00: 00 No 40mg [facility] Bupivicaine Bogard Bupivicaine Bogard 0 10-06 00:00: 00 No 2.5mg [facility] Kenalog (Triamcinol one) Kenalog (Triamcinol one) 0 10-06 00:00: 00 No 40[facility] Bupivicaine Bogard Bupivicaine Bogard 0 10-06 00:00: 00 No 2.5mg [facility] Kenalog (Triamcinol one) Kenalog (Triamcinol one) 0 10-06 00:00: 00 No 40mg [facility] Bupivicaine Bogard Bupivicaine Bogard 0 10-06 00:00: 00 No 2.5mg [facility] Kenalog (Triamcinol one) Kenalog (Triamcinol one) 0 10-06 00:00: 00 No 40mg [facility] Bupivicaine Bogard Bupivicaine Bogard 0 10-06 00:00: 00 No 2.5mg [facility] Kenalog (Triamcinol one) Kenalog (Triamcinol one) 0 10-06 00:00: 00 No 40mg [facility] Bupivicaine Bogard Bupivicaine Bogard 0 10-06 00:00: 00 No 2.5mg [facility] Kenalog (Triamcinol one) Kenalog (Triamcinol one) 0 10-06 00:00: 00 No 40mg [facility] Bupivicaine Bogard Bupivicaine Bogard 0 10-06 00:00: 00 No 2.5mg [facility] Kenalog (Triamcinol one) Kenalog (Triamcinol one) 0 10-06 00:00: 00 No 40mg [facility] Bupivicaine Bogard Bupivicaine Bogard 0 10-06 00:00: 00 No 2.5mg [facility] Kenalog (Triamcinol one) Kenalog (Triamcinol one) 0 10-06 00:00: 00 No 40mg [facility] Bupivicaine Bogard Bupivicaine Bogard 0 10-06 00:00: 00 No 2.5mg [facility] Kenalog (Triamcinol one) Kenalog (Triamcinol one) 0 10-06 00:00: 00 No 40mg [facility] Bupivicaine Bogard Bupivicaine Bogard 2021-0 10-06 00:00: 00 No 2.5mg [facility] Kenalog (Triamcinol one) Kenalog (Triamcinol one) 0 10-06 00:00: 00 No 40mg [facility] Bupivicaine Bogard Bupivicaine Bogard 0 10-06 00:00: 00 No 2.5mg [facility] Kenalog (Triamcinol one) Kenalog (Triamcinol one) 0 10-06 00:00: 00 No 40mg [facility] Bupivicaine Bogard Bupivicaine Bogard 0 10-06 00:00: 00 No 2.5mg [facility] Kenalog (Triamcinol one) Kenalog (Triamcinol one) 0 10-06 00:00: 00 No 40mg [facility] Bupivicaine Bogard Bupivicaine Bogard 0 10-06 00:00: 00 No 2.5mg [facility] Kenalog (Triamcinol one) Kenalog (Triamcinol one) 0 10-06 00:00: 00 No 40mg [facility] Bupivicaine Bogard Bupivicaine Bogard 0 10-06 00:00: 00 No 2.5mg [facility] Kenalog (Triamcinol one) Kenalog (Triamcinol one) 0 10-06 00:00: 00 No 40mg [facility] Bupivicaine Bogard Bupivicaine Bogard 0 10-06 00:00: 00 No 2.5mg [facility] Kenalog (Triamcinol one) Kenalog (Triamcinol one) 0 10-06 00:00: 00 No 40mg [facility] Bupivicaine Bogard Bupivicaine Bogard 2021-0 10-06 00:00: 00 No 2.5mg [facility] Kenalog (Triamcinol one) Kenalog (Triamcinol one) 0 10-06 00:00: 00 No 40mg [facility] Bupivicaine Bogard Bupivicaine Bogard 2021-0 10-06 00:00: 00 No 2.5mg [facility] Kenalog (Triamcinol one) Kenalog (Triamcinol one) 0 10-06 00:00: 00 No 40mg [facility] Bupivicaine Bogard Bupivicaine Bogard 0 10-06 00:00: 00 No 2.5mg [facility] Kenalog (Triamcinol one) Kenalog (Triamcinol one) 0 10-06 00:00: 00 No 40mg [facility] Bupivicaine Bogard Bupivicaine Bogard 0 10-06 00:00: 00 No 2.5mg [facility] Kenalog (Triamcinol one) Kenalog (Triamcinol one) 0 10-06 00:00: 00 No 40mg [facility] Bupivicaine Bogard Bupivicaine Bogard 2021-0 10-06 00:00: 00 No 2.5mg [facility] Kenalog (Triamcinol one) Kenalog (Triamcinol one) 0 10-06 00:00: 00 No 40mg [facility] Bupivicaine Bogard Bupivicaine Bogard 0 10-06 00:00: 00 No 2.5mg [facility] Kenalog (Triamcinol one) Kenalog (Triamcinol one) 0 10-06 00:00: 00 No 40mg [facility] methylPREDN ISolone 4 MG methylPREDN ISolone 4 MG 2021-0 - 00:00: 00 No methylPRED NISolone 4 MG methylPREDN ISolone 4 MG methylPREDN ISolone 4 MG 2021-0 - 00:00: 00 No methylPRED NISolone 4 MG methylPREDN ISolone 4 MG methylPREDN ISolone 4 MG 2021-0 - 00:00: 00 No methylPRED NISolone 4 MG methylPREDN ISolone 4 MG methylPREDN ISolone 4 MG 2021-0 1-11 00:00: 00 No methylPRED NISolone 4 MG methylPREDN ISolone 4 MG methylPREDN ISolone 4 MG 2-0 1-11 00:00: 00 No methylPRED NISolone 4 MG methylPREDN ISolone 4 MG methylPREDN ISolone 4 MG 2-0 1-11 00:00: 00 No methylPRED NISolone 4 MG methylPREDN ISolone 4 MG methylPREDN ISolone 4 MG 2021-0 1-11 00:00: 00 No methylPRED NISolone 4 MG methylPREDN ISolone 4 MG methylPREDN ISolone 4 MG 2-0 1-11 00:00: 00 No methylPRED NISolone 4 MG methylPREDN ISolone 4 MG methylPREDN ISolone 4 MG 2021-0 1-11 00:00: 00 No methylPRED NISolone 4 MG methylPREDN ISolone 4 MG methylPREDN ISolone 4 MG 2-0 1-11 00:00: 00 No methylPRED NISolone 4 MG methylPREDN ISolone 4 MG methylPREDN ISolone 4 MG 2021-0 1-11 00:00: 00 No methylPRED NISolone 4 MG methylPREDN ISolone 4 MG methylPREDN ISolone 4 MG 2021-0 1-11 00:00: 00 No methylPRED NISolone 4 MG methylPREDN ISolone 4 MG methylPREDN ISolone 4 MG 2021-0 1-11 00:00: 00 No methylPRED NISolone 4 MG methylPREDN ISolone 4 MG methylPREDN ISolone 4 MG 2021-0 1-11 00:00: 00 No methylPRED NISolone 4 MG methylPREDN ISolone 4 MG methylPREDN ISolone 4 MG 2-0 1-11 00:00: 00 No methylPRED NISolone 4 MG methylPREDN ISolone 4 MG methylPREDN ISolone 4 MG 2-0 1-11 00:00: 00 No methylPRED NISolone 4 MG methylPREDN ISolone 4 MG methylPREDN ISolone 4 MG 2-0 1-11 00:00: 00 No methylPRED NISolone 4 MG methylPREDN ISolone 4 MG methylPREDN ISolone 4 MG 2-0 1-11 00:00: 00 No methylPRED NISolone 4 MG methylPREDN ISolone 4 MG methylPREDN ISolone 4 MG 2-0 1-11 00:00: 00 No methylPRED NISolone 4 MG methylPREDN ISolone 4 MG methylPREDN ISolone 4 MG 2-0 1-11 00:00: 00 No methylPRED NISolone 4 MG Synvisc Synvisc 2020-1 2-16 00:00: 00 No [facility] Synvisc Synvisc 2020-1 2-16 00:00: 00 No 16mg [facility] Synvisc Synvisc 2020-1 2-16 00:00: 00 No 16mg [facility] Synvisc Synvisc 2020-1 2-16 00:00: 00 No 16mg [facility] Synvisc Synvisc 2020-1 2-16 00:00: 00 No 16mg [facility] Synvisc Synvisc 2020-1 2-16 00:00: 00 No 16mg [facility] Synvisc Synvisc 2020-1 2-16 00:00: 00 No 16mg [facility] Synvisc Synvisc 2020-1 2-16 00:00: 00 No 16mg [facility] Synvisc Synvisc 2020-1 2-16 00:00: 00 No 16mg [facility] Synvisc Synvisc 2020-1 2-16 00:00: 00 No 16mg [facility] Synvisc Synvisc 2020-1 2-16 00:00: 00 No 16mg [facility] Synvisc Synvisc 2020-1 2-16 00:00: 00 No 16mg [facility] Synvisc Synvisc 2020-1 2-16 00:00: 00 No 16mg [facility] Synvisc Synvisc 2020-1 2-16 00:00: 00 No 16mg [facility] Synvisc Synvisc 2020-1 2-16 00:00: 00 No 16mg [facility] Synvisc Synvisc 1-1 2-16 00:00: 00 No 16mg [facility] Synvisc Synvisc 1-1 2-16 00:00: 00 No 16mg [facility] Synvisc Synvisc 1-1 2-16 00:00: 00 No 16mg [facility] Synvisc Synvisc 1-1 2-16 00:00: 00 No 16mg [facility] Synvisc Synvisc 2020-1 2-16 00:00: 00 No 16mg [facility] Synvisc Synvisc 2020-1 2-16 00:00: 00 No 16mg [facility] Synvisc Synvisc 2020-1 2-16 00:00: 00 No 16mg [facility] Synvisc Synvisc 1-1 2-16 00:00: 00 No 16mg [facility] Synvisc Synvisc 1-1 2-16 00:00: 00 No 16mg [facility] Synvisc Synvisc 1-1 2-16 00:00: 00 No 16mg [facility] Synvisc Synvisc 1-1 2-16 00:00: 00 No 16mg [facility] Synvisc Synvisc 1-1 2-16 00:00: 00 No 16mg [facility] Synvisc Synvisc 1-1 2-16 00:00: 00 No 16mg [facility] Synvisc Synvisc 1-1 2-16 00:00: 00 No 16mg [facility] Synvisc Synvisc 2020-1 2-16 00:00: 00 No 16mg [facility] Synvisc Synvisc 1-1 2-16 00:00: 00 No 16mg [facility] Synvisc Synvisc 2020-06 2- 00:00: 00 No 16mg [facility] Synvisc Synvisc 2020-06 2 00:00: 00 No 16mg [facility] Synvisc Synvisc 2020-06 2 00:00: 00 No 16mg [facility] Synvisc Synvisc 2020-06 2 00:00: 00 No 16mg [facility] Synvisc Synvisc 2020-06 2 00:00: 00 No 16mg [facility] Synvisc Synvisc 2020-06 2 00:00: 00 No 16mg [facility] Synvisc Synvisc 2020-06 2 00:00: 00 No 16mg [facility] Synvisc Synvisc 2020-06 2 00:00: 00 No 16mg [facility] Synvisc Synvisc 2020-06 2 00:00: 00 No 16mg [facility] Synvisc Synvisc 2020-06 2 00:00: 00 No 16mg [facility] Synvisc Synvisc 2020-06 2 00:00: 00 No 16mg [facility] Synvisc Synvisc 2020-06 2 00:00: 00 No 16mg [facility] Synvisc Synvisc 2020-06 2 00:00: 00 No 16mg [facility] Synvisc Synvisc 2020-06 2 00:00: 00 No 16mg [facility] Synvisc Synvisc 2020-06 2 00:00: 00 No 16mg [facility] Synvisc Synvisc 2020-06 2 00:00: 00 No 16mg [facility] Synvisc Synvisc 2020-06 2 00:00: 00 No 16mg [facility] Synvisc Synvisc 2020-06 2- 00:00: 00 No 16mg [facility] Synvisc Synvisc 2020-06 2- 00:00: 00 No 16mg [facility] Synvisc Synvisc 2020-06 2 00:00: 00 No 16mg [facility] Synvisc Synvisc 2020-06 2 00:00: 00 No 16mg [facility] Synvisc Synvisc 2020-06 2 00:00: 00 No 16mg [facility] Synvisc Synvisc 2020-06 2 00:00: 00 No 16mg [facility] Synvisc Synvisc 2020-06 2 00:00: 00 No 16mg [facility] Synvisc Synvisc 2020-06 2- 00:00: 00 No 16mg [facility] Synvisc Synvisc 2020-06 2 00:00: 00 No 16mg [facility] Synvisc Synvisc 2020-06 2 00:00: 00 No 16[facility] Synvisc Synvisc 2020-06 2 00:00: 00 No 16mg [facility] Synvisc Synvisc 2020-06 2 00:00: 00 No 16[facility] Synvisc Synvisc 2020-06 2 00:00: 00 No 16[facility] Synvisc Synvisc 2020-06 2 00:00: 00 No [facility] Synvisc Synvisc 2020-06 2 00:00: 00 No 16mg [facility] Synvisc Synvisc 2020-06 2 00:00: 00 No 16[facility] Synvisc Synvisc 2020-06 2 00:00: 00 No 16[facility] Synvisc Synvisc 2020- 2- 00:00: 00 No [facility] Synvisc Synvisc 2020- 2- 00:00: 00 No [facility] Synvisc Synvisc 2020- 2- 00:00: 00 No 16[facility] Synvisc Synvisc 2020- 2- 00:00: 00 No [facility] Synvisc Synvisc 2020- 2- 00:00: 00 No 16[facility] Synvisc Synvisc 2020- 2- 00:00: 00 No 16mg [facility] Synvisc Synvisc 2020-06 2- 00:00: 00 No [facility] Synvisc Synvisc 2020- 2- 00:00: 00 No 16[facility] Synvisc Synvisc 2020- 2- 00:00: 00 No 16mg [facility] Synvisc Synvisc 2020- 2- 00:00: 00 No 16mg [facility] Synvisc Synvisc 2020-06 2- 00:00: 00 No 16[facility] Synvisc Synvisc 2020- 2- 00:00: 00 No 16mg [facility] Synvisc Synvisc 2020- 2- 00:00: 00 No 16mg [facility] Synvisc Synvisc 2020- 2- 00:00: 00 No 16mg [facility] Synvisc Synvisc 2020- 2- 00:00: 00 No 16mg [facility] Synvisc Synvisc 2020- 2- 00:00: 00 No 16mg [facility] Synvisc Synvisc 2020-06 2- 00:00: 00 No 16[facility] Synvisc Synvisc 2020-06 2- 00:00: 00 No 16[facility] Synvisc Synvisc 2020-06 2- 00:00: 00 No 16[facility] Synvisc Synvisc 2020-06 2- 00:00: 00 No 16[facility] Synvisc Synvisc 2020-06 2- 00:00: 00 No [facility] Synvisc Synvisc 2020-06 2- 00:00: 00 No [facility] Synvisc Synvisc 2020-06 2- 00:00: 00 No 16mg [facility] Synvisc Synvisc 2020-06 2- 00:00: 00 No [facility] Synvisc Synvisc 2020-06 2- 00:00: 00 No [facility] Synvisc Synvisc 2020-06 2- 00:00: 00 No [facility] Synvisc Synvisc 2020-06 2- 00:00: 00 No [facility] Synvisc Synvisc 2020-06 2- 00:00: 00 No 16mg [facility] Synvisc Synvisc 2020-06 2- 00:00: 00 No [facility] Synvisc Synvisc 2020-06 2- 00:00: 00 No 16mg [facility] Synvisc Synvisc 2020-06 2- 00:00: 00 No 16mg [facility] Xarelto 20 MG Xarelto 20 MG 2020-06 0- 00:00: 00 No 1{table t_with_ food} QD Xarelto 20 MG Xarelto 20 MG Xarelto 20 MG 2020-06 0 00:00: 00 No 1{table t_with_ food} QD Xarelto 20 MG Xarelto 20 MG Xarelto 20 MG 2020- 0 00:00: 00 No 1{table t_with_ food} QD Xarelto 20 MG Xarelto 20 MG Xarelto 20 MG 2020- 0 00:00: 00 No 1{table t_with_ food} QD Xarelto 20 MG Xarelto 20 MG Xarelto 20 MG 2020- 0 00:00: 00 No 1{table t_with_ food} QD Xarelto 20 MG Xarelto 20 MG 2020- 0 00:00: 00 No 1{table t_with_ food} QD Xarelto 20 MG Xarelto 20 MG Xarelto 20 MG 2020-06 00:00: 00 No 1{table t_with_ food} QD Xarelto 20 MG Xarelto 20 MG Xarelto 20 MG 2020- 0 00:00: 00 No 1{table t_with_ food} QD Xarelto 20 MG Xarelto 20 MG Xarelto 20 MG 2020-06 00:00: 00 No 1{table t_with_ food} QD Xarelto 20 MG Xarelto 20 MG Xarelto 20 MG 2020-06 00:00: 00 No 1{table t_with_ food} QD Xarelto 20 MG Xarelto 20 MG Xarelto 20 MG 2020- 00:00: 00 No 1{table t_with_ food} QD Xarelto 20 MG Xarelto 20 MG Xarelto 20 MG 2020- 00:00: 00 No 1{table t_with_ food} QD Xarelto 20 MG Xarelto 20 MG Xarelto 20 MG 2020- 0 00:00: 00 No 1{table t_with_ food} QD Xarelto 20 MG Xarelto 20 MG Xarelto 20 MG 2020- 00:00: 00 No 1{table t_with_ food} QD Xarelto 20 MG Xarelto 20 MG Xarelto 20 MG 2020- 0 00:00: 00 No 1{table t_with_ food} QD Xarelto 20 MG Xarelto 20 MG Xarelto 20 MG 2020- 0- 00:00: 00 No 1{table t_with_ food} QD Xarelto 20 MG Xarelto 20 MG Xarelto 20 MG 2020- 0- 00:00: 00 No 1{table t_with_ food} QD Xarelto 20 MG Xarelto 20 MG Xarelto 20 MG 2020- 0 00:00: 00 No 1{table t_with_ food} QD Xarelto 20 MG Xarelto 20 MG Xarelto 20 MG 2020- 00:00: 00 No 1{table t_with_ food} QD Xarelto 20 MG Xarelto 20 MG Xarelto 20 MG 2020-06 00:00: 00 No 1{table t_with_ food} QD Xarelto 20 MG Xarelto 20 MG Xarelto 20 MG 2020-06 00:00: 00 No 1{table t_with_ food} QD Xarelto 20 MG Xarelto 20 MG Xarelto 20 MG 2020-06 00:00: 00 No 1{table t_with_ food} QD Xarelto 20 MG Xarelto 20 MG Xarelto 20 MG 2020-06 00:00: 00 No 1{table t_with_ food} QD Xarelto 20 MG Xarelto 20 MG Xarelto 20 MG 2020-06 00:00: 00 No 1{table t_with_ food} QD Xarelto 20 MG Xarelto 20 MG Xarelto 20 MG 2020-06 00:00: 00 No 1{table t_with_ food} QD Xarelto 20 MG Xarelto 20 MG Xarelto 20 MG 2020- 00:00: 00 No 1{table t_with_ food} QD Xarelto 20 MG clonazePAM (KLONOPIN) 1 mg tablet 11-25 13:28: 31 Yes 1mg Take 1 mg by mouth as needed. 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 [facility] dicyclomine 20 mg tablet 11-25 13:28: 31 Yes 20mg Take 20 mg by mouth daily. [facility] FLUoxetine (PROZAC) 40 mg capsule 11-25 13:28: 31 Yes 40mg Take 40 mg by mouth daily. [facility] OLANZapine 2.5 mg tablet 11-25 13:28: 31 Yes 2.5mg Take 2.5 mg by mouth 2 (two) times daily. [facility] lansoprazol e 30 mg capsule 11-25 12:19: 35 11-25 00:00 :00 No 30mg Take 30 mg by mouth daily. [facility] lansoprazol e 30 mg capsule 11-25 12:19: 35 11-25 00:00 :00 No 30mg Take 30 mg by mouth daily. [facility] omeprazole 40 mg capsule 11-25 00:00: 00 01-25 04:59 :00 No [id number] 40mg Take 1 capsule by mouth 2 (two) times daily for 60 days. [facility] sucralfate 1 gram tablet 11-25 00:00: 00 01-25 04:59 :00 No [id number] 1g Take 1 tablet by mouth before meals and at bedtime for 60 days. [facility] sucralfate 1 gram tablet 07-15 00:00: 00 07-30 05:59 :00 No [id number] 1g Take 1 tablet by mouth before meals and at bedtime for 14 days. [facility] desonide 0.05 % cream 06-30 00:00: 00 Yes APPLY TO THE AFFECTED AREA TWICE DAILY SPARINGLY AND RUB GENTLY [facility] desonide 0.05 % cream 06-30 00:00: 00 Yes APPLY TO THE AFFECTED AREA TWICE DAILY SPARINGLY AND RUB GENTLY [facility] desonide 0.05 % cream 06-30 00:00: 00 Yes APPLY TO THE AFFECTED AREA TWICE DAILY SPARINGLY AND RUB GENTLY [facility] desonide 0.05 % cream 06-30 00:00: 00 Yes APPLY TO THE AFFECTED AREA TWICE DAILY SPARINGLY AND RUB GENTLY [facility] desonide 0.05 % cream 06-30 00:00: 00 Yes APPLY TO THE AFFECTED AREA TWICE DAILY SPARINGLY AND RUB GENTLY [facility] desonide 0.05 % cream 06-30 00:00: 00 Yes APPLY TO THE AFFECTED AREA TWICE DAILY SPARINGLY AND RUB GENTLY [facility] desonide 0.05 % cream 06-30 00:00: 00 Yes APPLY TO THE AFFECTED AREA TWICE DAILY SPARINGLY AND RUB GENTLY [facility] desonide 0.05 % cream 06-30 00:00: 00 Yes APPLY TO THE AFFECTED AREA TWICE DAILY SPARINGLY AND RUB GENTLY [facility] desonide 0.05 % cream 06-30 00:00: 00 Yes APPLY TO THE AFFECTED AREA TWICE DAILY SPARINGLY AND RUB GENTLY [facility] desonide 0.05 % cream 06-30 00:00: 00 Yes APPLY TO THE AFFECTED AREA TWICE DAILY SPARINGLY AND RUB GENTLY [facility] desonide 0.05 % cream 06-30 00:00: 00 Yes APPLY TO THE AFFECTED AREA TWICE DAILY SPARINGLY AND RUB GENTLY [facility] desonide 0.05 % cream 06-30 00:00: 00 Yes APPLY TO THE AFFECTED AREA TWICE DAILY SPARINGLY AND RUB GENTLY [facility] desonide 0.05 % cream 06-30 00:00: 00 Yes APPLY TO THE AFFECTED AREA TWICE DAILY SPARINGLY AND RUB GENTLY [facility] desonide 0.05 % cream 06-30 00:00: 00 Yes APPLY TO THE AFFECTED AREA TWICE DAILY SPARINGLY AND RUB GENTLY [facility] desonide 0.05 % cream 06-30 00:00: 00 Yes APPLY TO THE AFFECTED AREA TWICE DAILY SPARINGLY AND RUB GENTLY [facility] desonide 0.05 % cream 06-30 00:00: 00 Yes APPLY TO THE AFFECTED AREA TWICE DAILY SPARINGLY AND RUB GENTLY [facility] desonide 0.05 % cream 06-30 00:00: 00 Yes APPLY TO THE AFFECTED AREA TWICE DAILY SPARINGLY AND RUB GENTLY [facility] desonide 0.05 % cream 06-30 00:00: 00 Yes APPLY TO THE AFFECTED AREA TWICE DAILY SPARINGLY AND RUB GENTLY [facility] desonide 0.05 % cream 06-30 00:00: 00 Yes APPLY TO THE AFFECTED AREA TWICE DAILY SPARINGLY AND RUB GENTLY [facility] Metoprolol Tartrate Metoprolol Tartrate Yes Nirmal Hancock 1 tablet with food [facility] Dicyclomine HCl Dicyclomine HCl Yes Nirmal Hancock TAKE 1 TABLET BY MOUTH TWICE DAILY NEEDED [facility] Premarin Premarin Yes Nirmal Hancock 1 tablet [facility] Hydrochloro thiazide Hydrochloro thiazide Yes Nirmal Hancock 1 tablet in the morning [facility] Adderall Adderall Yes Nirmal Hancock 1 tablet [facility] Lansoprazol e Lansoprazol e Yes Nirmal Hancock 1 capsule [facility] Clonazepam Clonazepam Yes Nirmal Hancock 1 tablet [facility] Duloxetine HCl Duloxetine HCl Yes Nirmal Hancock TK ONE C PO BID [facility] Adderall 30 MG Adderall 30 MG No BID Adderall 30 MG FLUoxetine HCl 20 MG FLUoxetine HCl 20 MG No QD FLUoxetine HCl 20 MG ALPRAZolam 0.5 MG ALPRAZolam 0.5 MG No 1{table t} BID ALPRAZolam 0.5 MG Dicyclomine HCl 20 MG Dicyclomine HCl 20 MG No 1{table t} Dicyclomin e HCl 20 MG Dexilant Dexilant No Dexilant Metoprolol Tartrate 50 MG Metoprolol Tartrate 50 MG No 1{table t_with_ food} BID Metoprolol Tartrate 50 MG Atorvastati n Calcium 20 MG Atorvastati n Calcium 20 MG No Atorvastat in Calcium 20 MG OLANZapine 5 MG OLANZapine 5 MG No OLANZapine 5 MG Famotidine 40 MG Famotidine 40 MG No 1{table t_at_be dtime} QD Famotidine 40 MG Atorvastati n Calcium 20 MG Atorvastati n Calcium 20 MG No 1{table t} QD Atorvastat in Calcium 20 MG Dexilant Dexilant No Dexilant FLUoxetine HCl 20 MG FLUoxetine HCl 20 MG No QD FLUoxetine HCl 20 MG OLANZapine 5 MG OLANZapine 5 MG No OLANZapine 5 MG Metoprolol Tartrate 50 MG Metoprolol Tartrate 50 MG No 1{table t_with_ food} BID Metoprolol Tartrate 50 MG Famotidine 40 MG Famotidine 40 MG No 1{table t_at_be dtime} QD Famotidine 40 MG Dicyclomine HCl 20 MG Dicyclomine HCl 20 MG No 1{table t} Dicyclomin e HCl 20 MG Atorvastati n Calcium 20 MG Atorvastati n Calcium 20 MG No Atorvastat in Calcium 20 MG Adderall 30 MG Adderall 30 MG No BID Adderall 30 MG ALPRAZolam 0.5 MG ALPRAZolam 0.5 MG No 1{table t} BID ALPRAZolam 0.5 MG Famotidine 40 MG Famotidine 40 MG No 1{table t_at_be dtime} QD Famotidine 40 MG ALPRAZolam 0.5 MG ALPRAZolam 0.5 MG No 1{table t} BID ALPRAZolam 0.5 MG Atorvastati n Calcium 20 MG Atorvastati n Calcium 20 MG No 1{table t} QD Atorvastat in Calcium 20 MG Atorvastati n Calcium 20 MG Atorvastati n Calcium 20 MG No Atorvastat in Calcium 20 MG Ritalin 10 MG Ritalin 10 MG No QD Ritalin 10 MG Ritalin 5 MG Ritalin 5 MG No QD Ritalin 5 MG Dexilant Dexilant No Dexilant OLANZapine 5 MG OLANZapine 5 MG No OLANZapine 5 MG FLUoxetine HCl 20 MG FLUoxetine HCl 20 MG No QD FLUoxetine HCl 20 MG Adderall 30 MG Adderall 30 MG No BID Adderall 30 MG Metoprolol Tartrate 50 MG Metoprolol Tartrate 50 MG No 1{table t_with_ food} BID Metoprolol Tartrate 50 MG Dicyclomine HCl 20 MG Dicyclomine HCl 20 MG No 1{table t} Dicyclomin e HCl 20 MG Famotidine 40 MG Famotidine 40 MG No 1{table t_at_be dtime} QD Famotidine 40 MG ALPRAZolam 0.5 MG ALPRAZolam 0.5 MG No 1{table t} BID ALPRAZolam 0.5 MG Atorvastati n Calcium 20 MG Atorvastati n Calcium 20 MG No 1{table t} QD Atorvastat in Calcium 20 MG Atorvastati n Calcium 20 MG Atorvastati n Calcium 20 MG No Atorvastat in Calcium 20 MG Ritalin 10 MG Ritalin 10 MG No QD Ritalin 10 MG Ritalin 5 MG Ritalin 5 MG No QD Ritalin 5 MG Dexilant Dexilant No Dexilant OLANZapine 5 MG OLANZapine 5 MG No OLANZapine 5 MG FLUoxetine HCl 20 MG FLUoxetine HCl 20 MG No QD FLUoxetine HCl 20 MG Adderall 30 MG Adderall 30 MG No BID Adderall 30 MG Metoprolol Tartrate 50 MG Metoprolol Tartrate 50 MG No 1{table t_with_ food} BID Metoprolol Tartrate 50 MG Dicyclomine HCl 20 MG Dicyclomine HCl 20 MG No 1{table t} Dicyclomin e HCl 20 MG Ritalin 10 MG Ritalin 10 MG No QD Ritalin 10 MG Atorvastati n Calcium 20 MG Atorvastati n Calcium 20 MG No Atorvastat in Calcium 20 MG Ritalin 5 MG Ritalin 5 MG No QD Ritalin 5 MG FLUoxetine HCl 20 MG FLUoxetine HCl 20 MG No QD FLUoxetine HCl 20 MG OLANZapine 5 MG OLANZapine 5 MG No OLANZapine 5 MG ALPRAZolam 0.5 MG ALPRAZolam 0.5 MG No 1{table t} BID ALPRAZolam 0.5 MG Dicyclomine HCl 20 MG Dicyclomine HCl 20 MG No 1{table t} Dicyclomin e HCl 20 MG Metoprolol Tartrate 50 MG Metoprolol Tartrate 50 MG No 1{table t_with_ food} BID Metoprolol Tartrate 50 MG Atorvastati n Calcium 20 MG Atorvastati n Calcium 20 MG No 1{table t} QD Atorvastat in Calcium 20 MG Famotidine 40 MG Famotidine 40 MG No 1{table t_at_be dtime} QD Famotidine 40 MG Adderall 30 MG Adderall 30 MG No BID Adderall 30 MG Dexilant Dexilant No Dexilant ALPRAZolam 0.5 MG ALPRAZolam 0.5 MG No 1{table t} BID ALPRAZolam 0.5 MG Dicyclomine HCl 20 MG Dicyclomine HCl 20 MG No 1{table t} Dicyclomin e HCl 20 MG Atorvastati n Calcium 20 MG Atorvastati n Calcium 20 MG No 1{table t} QD Atorvastat in Calcium 20 MG Atorvastati n Calcium 20 MG Atorvastati n Calcium 20 MG No Atorvastat in Calcium 20 MG Famotidine 40 MG Famotidine 40 MG No 1{table t_at_be dtime} QD Famotidine 40 MG Adderall 30 MG Adderall 30 MG No BID Adderall 30 MG Ritalin 5 MG Ritalin 5 MG No QD Ritalin 5 MG OLANZapine 5 MG OLANZapine 5 MG No OLANZapine 5 MG FLUoxetine HCl 20 MG FLUoxetine HCl 20 MG No QD FLUoxetine HCl 20 MG Dexilant Dexilant No Dexilant Metoprolol Tartrate 50 MG Metoprolol Tartrate 50 MG No 1{table t_with_ food} BID Metoprolol Tartrate 50 MG Ritalin 10 MG Ritalin 10 MG No QD Ritalin 10 MG ALPRAZolam 0.5 MG ALPRAZolam 0.5 MG No 1{table t} BID ALPRAZolam 0.5 MG Dicyclomine HCl 20 MG Dicyclomine HCl 20 MG No 1{table t} Dicyclomin e HCl 20 MG Atorvastati n Calcium 20 MG Atorvastati n Calcium 20 MG No 1{table t} QD Atorvastat in Calcium 20 MG Atorvastati n Calcium 20 MG Atorvastati n Calcium 20 MG No Atorvastat in Calcium 20 MG Famotidine 40 MG Famotidine 40 MG No 1{table t_at_be dtime} QD Famotidine 40 MG Adderall 30 MG Adderall 30 MG No BID Adderall 30 MG Ritalin 5 MG Ritalin 5 MG No QD Ritalin 5 MG OLANZapine 5 MG OLANZapine 5 MG No OLANZapine 5 MG FLUoxetine HCl 20 MG FLUoxetine HCl 20 MG No QD FLUoxetine HCl 20 MG Dexilant Dexilant No Dexilant Metoprolol Tartrate 50 MG Metoprolol Tartrate 50 MG No 1{table t_with_ food} BID Metoprolol Tartrate 50 MG Ritalin 10 MG Ritalin 10 MG No QD Ritalin 10 MG Atorvastati n Calcium 20 MG Atorvastati n Calcium 20 MG No Atorvastat in Calcium 20 MG Dicyclomine HCl 20 MG Dicyclomine HCl 20 MG No 1{table t} Dicyclomin e HCl 20 MG Ritalin 5 MG Ritalin 5 MG No QD Ritalin 5 MG Ritalin 10 MG Ritalin 10 MG No QD Ritalin 10 MG Adderall 30 MG Adderall 30 MG No BID Adderall 30 MG Metoprolol Tartrate 50 MG Metoprolol Tartrate 50 MG No 1{table t_with_ food} BID Metoprolol Tartrate 50 MG Atorvastati n Calcium 20 MG Atorvastati n Calcium 20 MG No 1{table t} QD Atorvastat in Calcium 20 MG ALPRAZolam 0.5 MG ALPRAZolam 0.5 MG No 1{table t} BID ALPRAZolam 0.5 MG FLUoxetine HCl 20 MG FLUoxetine HCl 20 MG No QD FLUoxetine HCl 20 MG Dexilant Dexilant No Dexilant OLANZapine 5 MG OLANZapine 5 MG No OLANZapine 5 MG Famotidine 40 MG Famotidine 40 MG No 1{table t_at_be dtime} QD Famotidine 40 MG Atorvastati n Calcium 20 MG Atorvastati n Calcium 20 MG No Atorvastat in Calcium 20 MG Dicyclomine HCl 20 MG Dicyclomine HCl 20 MG No 1{table t} Dicyclomin e HCl 20 MG Ritalin 5 MG Ritalin 5 MG No QD Ritalin 5 MG Ritalin 10 MG Ritalin 10 MG No QD Ritalin 10 MG Adderall 30 MG Adderall 30 MG No BID Adderall 30 MG Metoprolol Tartrate 50 MG Metoprolol Tartrate 50 MG No 1{table t_with_ food} BID Metoprolol Tartrate 50 MG Atorvastati n Calcium 20 MG Atorvastati n Calcium 20 MG No 1{table t} QD Atorvastat in Calcium 20 MG ALPRAZolam 0.5 MG ALPRAZolam 0.5 MG No 1{table t} BID ALPRAZolam 0.5 MG FLUoxetine HCl 20 MG FLUoxetine HCl 20 MG No QD FLUoxetine HCl 20 MG Dexilant Dexilant No Dexilant OLANZapine 5 MG OLANZapine 5 MG No OLANZapine 5 MG Famotidine 40 MG Famotidine 40 MG No 1{table t_at_be dtime} QD Famotidine 40 MG Atorvastati n Calcium 20 MG Atorvastati n Calcium 20 MG No Atorvastat in Calcium 20 MG Focalin XR 15 MG Focalin XR 15 MG No 1{capsu le_in_t he_morn ing} QD Focalin XR 15 MG Famotidine 40 MG Famotidine 40 MG No 1{table t_at_be dtime} QD Famotidine 40 MG Ritalin 10 MG Ritalin 10 MG No QD Ritalin 10 MG Adderall 30 MG Adderall 30 MG No BID Adderall 30 MG Dicyclomine HCl 20 MG Dicyclomine HCl 20 MG No 1{table t} Dicyclomin e HCl 20 MG OLANZapine 5 MG OLANZapine 5 MG No OLANZapine 5 MG Atorvastati n Calcium 20 MG Atorvastati n Calcium 20 MG No 1{table t} QD Atorvastat in Calcium 20 MG Dexilant Dexilant No Dexilant ALPRAZolam 0.5 MG ALPRAZolam 0.5 MG No 1{table t} BID ALPRAZolam 0.5 MG FLUoxetine HCl 20 MG FLUoxetine HCl 20 MG No QD FLUoxetine HCl 20 MG Metoprolol Tartrate 50 MG Metoprolol Tartrate 50 MG No 1{table t_with_ food} BID Metoprolol Tartrate 50 MG Ritalin 5 MG Ritalin 5 MG No QD Ritalin 5 MG Xarelto Starter Pack 15 & 20 MG Xarelto Starter Pack 15 & 20 MG No Xarelto Starter Pack 15 & 20 MG ALPRAZolam 0.5 MG ALPRAZolam 0.5 MG No 1{table t} BID ALPRAZolam 0.5 MG FLUoxetine HCl 60 MG FLUoxetine HCl 60 MG No 1{capsu le} QD FLUoxetine HCl 60 MG Atorvastati n Calcium 20 MG Atorvastati n Calcium 20 MG No Atorvastat in Calcium 20 MG Focalin XR 15 MG Focalin XR 15 MG No 1{capsu le_in_t he_morn ing} QD Focalin XR 15 MG Famotidine 40 MG Famotidine 40 MG No 1{table t_at_be dtime} QD Famotidine 40 MG Ritalin 10 MG Ritalin 10 MG No QD Ritalin 10 MG Adderall 30 MG Adderall 30 MG No BID Adderall 30 MG Dicyclomine HCl 20 MG Dicyclomine HCl 20 MG No 1{table t} Dicyclomin e HCl 20 MG OLANZapine 5 MG OLANZapine 5 MG No OLANZapine 5 MG Atorvastati n Calcium 20 MG Atorvastati n Calcium 20 MG No 1{table t} QD Atorvastat in Calcium 20 MG OLANZapine 5 MG OLANZapine 5 MG No OLANZapine 5 MG Dexilant Dexilant No Dexilant ALPRAZolam 0.5 MG ALPRAZolam 0.5 MG No 1{table t} BID ALPRAZolam 0.5 MG FLUoxetine HCl 20 MG FLUoxetine HCl 20 MG No QD FLUoxetine HCl 20 MG Metoprolol Tartrate 50 MG Metoprolol Tartrate 50 MG No 1{table t_with_ food} BID Metoprolol Tartrate 50 MG Ritalin 5 MG Ritalin 5 MG No QD Ritalin 5 MG Metoprolol Tartrate 50 MG Metoprolol Tartrate 50 MG No 1{table t_with_ food} BID Metoprolol Tartrate 50 MG clonazePAM 1 MG clonazePAM 1 MG No 1{table t} clonazePAM 1 MG Omeprazole 40 MG Omeprazole 40 MG No Omeprazole 40 MG Atorvastati n Calcium 20 MG Atorvastati n Calcium 20 MG No Atorvastat in Calcium 20 MG Focalin XR 15 MG Focalin XR 15 MG No 1{capsu le_in_t he_morn ing} QD Focalin XR 15 MG Famotidine 40 MG Famotidine 40 MG No 1{table t_at_be dtime} QD Famotidine 40 MG Ritalin 10 MG Ritalin 10 MG No QD Ritalin 10 MG Adderall 30 MG Adderall 30 MG No BID Adderall 30 MG Dicyclomine HCl 20 MG Dicyclomine HCl 20 MG No 1{table t} Dicyclomin e HCl 20 MG OLANZapine 5 MG OLANZapine 5 MG No OLANZapine 5 MG Atorvastati n Calcium 20 MG Atorvastati n Calcium 20 MG No 1{table t} QD Atorvastat in Calcium 20 MG Dexilant Dexilant No Dexilant ALPRAZolam 0.5 MG ALPRAZolam 0.5 MG No 1{table t} BID ALPRAZolam 0.5 MG FLUoxetine HCl 20 MG FLUoxetine HCl 20 MG No QD FLUoxetine HCl 20 MG Metoprolol Tartrate 50 MG Metoprolol Tartrate 50 MG No 1{table t_with_ food} BID Metoprolol Tartrate 50 MG Ritalin 5 MG Ritalin 5 MG No QD Ritalin 5 MG Xanax 0.5 MG Xanax 0.5 MG No 1{table t} BID Xanax 0.5 MG FLUoxetine HCl 20 MG FLUoxetine HCl 20 MG No QD FLUoxetine HCl 20 MG Atorvastati n Calcium 20 MG Atorvastati n Calcium 20 MG No Atorvastat in Calcium 20 MG methylPREDN ISolone 4 MG methylPREDN ISolone 4 MG No methylPRED NISolone 4 MG Focalin XR 15 MG Focalin XR 15 MG No 1{capsu le_in_t he_morn ing} QD Focalin XR 15 MG Famotidine 40 MG Famotidine 40 MG No 1{table t_at_be dtime} QD Famotidine 40 MG Ritalin 10 MG Ritalin 10 MG No QD Ritalin 10 MG Adderall 30 MG Adderall 30 MG No BID Adderall 30 MG Dicyclomine HCl 20 MG Dicyclomine HCl 20 MG No 1{table t} Dicyclomin e HCl 20 MG OLANZapine 5 MG OLANZapine 5 MG No OLANZapine 5 MG Atorvastati n Calcium 20 MG Atorvastati n Calcium 20 MG No 1{table t} QD Atorvastat in Calcium 20 MG Dexilant Dexilant No Dexilant ALPRAZolam 0.5 MG ALPRAZolam 0.5 MG No 1{table t} BID ALPRAZolam 0.5 MG FLUoxetine HCl 20 MG FLUoxetine HCl 20 MG No QD FLUoxetine HCl 20 MG Dicyclomine HCl 20 MG Dicyclomine HCl 20 MG No 1{table t} Dicyclomin e HCl 20 MG Metoprolol Tartrate 50 MG Metoprolol Tartrate 50 MG No 1{table t_with_ food} BID Metoprolol Tartrate 50 MG Ritalin 5 MG Ritalin 5 MG No QD Ritalin 5 MG Adderall 30 MG Adderall 30 MG No BID Adderall 30 MG Atorvastati n Calcium 20 MG Atorvastati n Calcium 20 MG No Atorvastat in Calcium 20 MG PROzac PROzac No PROzac Focalin XR 15 MG Focalin XR 15 MG No 1{capsu le_in_t he_morn ing} QD Focalin XR 15 MG Famotidine 40 MG Famotidine 40 MG No 1{table t_at_be dtime} QD Famotidine 40 MG Ritalin 10 MG Ritalin 10 MG No QD Ritalin 10 MG Adderall 30 MG Adderall 30 MG No BID Adderall 30 MG Dicyclomine HCl 20 MG Dicyclomine HCl 20 MG No 1{table t} Dicyclomin e HCl 20 MG OLANZapine 5 MG OLANZapine 5 MG No OLANZapine 5 MG Atorvastati n Calcium 20 MG Atorvastati n Calcium 20 MG No 1{table t} QD Atorvastat in Calcium 20 MG Dexilant Dexilant No Dexilant ALPRAZolam 0.5 MG ALPRAZolam 0.5 MG No 1{table t} BID ALPRAZolam 0.5 MG FLUoxetine HCl 20 MG FLUoxetine HCl 20 MG No QD FLUoxetine HCl 20 MG Breztri Aerosphere Breztri Aerosphere No Breztri Aerosphere Metoprolol Tartrate 50 MG Metoprolol Tartrate 50 MG No 1{table t_with_ food} BID Metoprolol Tartrate 50 MG Ritalin 5 MG Ritalin 5 MG No QD Ritalin 5 MG Dexilant Dexilant No Dexilant Atorvastati n Calcium 20 MG Atorvastati n Calcium 20 MG No Atorvastat in Calcium 20 MG Focalin XR 15 MG Focalin XR 15 MG No 1{capsu le_in_t he_morn ing} QD Focalin XR 15 MG Famotidine 40 MG Famotidine 40 MG No 1{table t_at_be dtime} QD Famotidine 40 MG Ritalin 10 MG Ritalin 10 MG No QD Ritalin 10 MG Adderall 30 MG Adderall 30 MG No BID Adderall 30 MG Dicyclomine HCl 20 MG Dicyclomine HCl 20 MG No 1{table t} Dicyclomin e HCl 20 MG OLANZapine 5 MG OLANZapine 5 MG No OLANZapine 5 MG Atorvastati n Calcium 20 MG Atorvastati n Calcium 20 MG No 1{table t} QD Atorvastat in Calcium 20 MG Dexilant Dexilant No Dexilant ALPRAZolam 0.5 MG ALPRAZolam 0.5 MG No 1{table t} BID ALPRAZolam 0.5 MG FLUoxetine HCl 20 MG FLUoxetine HCl 20 MG No QD FLUoxetine HCl 20 MG Metoprolol Tartrate 50 MG Metoprolol Tartrate 50 MG No 1{table t_with_ food} BID Metoprolol Tartrate 50 MG Ritalin 5 MG Ritalin 5 MG No QD Ritalin 5 MG Xarelto Starter Pack 15 & 20 MG Xarelto Starter Pack 15 & 20 MG No Xarelto Starter Pack 15 & 20 MG ALPRAZolam 0.5 MG ALPRAZolam 0.5 MG No 1{table t} BID ALPRAZolam 0.5 MG FLUoxetine HCl 60 MG FLUoxetine HCl 60 MG No 1{capsu le} QD FLUoxetine HCl 60 MG OLANZapine 5 MG OLANZapine 5 MG No OLANZapine 5 MG Metoprolol Tartrate 50 MG Metoprolol Tartrate 50 MG No 1{table t_with_ food} BID Metoprolol Tartrate 50 MG clonazePAM 1 MG clonazePAM 1 MG No 1{table t} clonazePAM 1 MG Omeprazole 40 MG Omeprazole 40 MG No Omeprazole 40 MG Xanax 0.5 MG Xanax 0.5 MG No 1{table t} BID Xanax 0.5 MG FLUoxetine HCl 20 MG FLUoxetine HCl 20 MG No QD FLUoxetine HCl 20 MG methylPREDN ISolone 4 MG methylPREDN ISolone 4 MG No methylPRED NISolone 4 MG Dicyclomine HCl 20 MG Dicyclomine HCl 20 MG No 1{table t} Dicyclomin e HCl 20 MG Adderall 30 MG Adderall 30 MG No BID Adderall 30 MG PROzac PROzac No PROzac Breztri Aerosphere Breztri Aerosphere No Breztri Aerosphere Dexilant Dexilant No Dexilant Atorvastati n Calcium 10 MG Atorvastati n Calcium 10 MG No 1{table t} QD Atorvastat in Calcium 10 MG Dicyclomine HCl 20 MG Dicyclomine HCl 20 MG No 1{table t} Dicyclomin e HCl 20 MG Metoprolol Tartrate 50 MG Metoprolol Tartrate 50 MG No 1{table t_with_ food} BID Metoprolol Tartrate 50 MG OLANZapine 5 MG OLANZapine 5 MG No OLANZapine 5 MG ALPRAZolam 0.5 MG ALPRAZolam 0.5 MG No 1{table t} BID ALPRAZolam 0.5 MG FLUoxetine HCl 60 MG FLUoxetine HCl 60 MG No 1{capsu le} QD FLUoxetine HCl 60 MG FLUoxetine HCl 20 MG FLUoxetine HCl 20 MG No QD FLUoxetine HCl 20 MG Omeprazole 40 MG Omeprazole 40 MG No Omeprazole 40 MG clonazePAM 1 MG clonazePAM 1 MG No 1{table t} clonazePAM 1 MG Atorvastati n Calcium 10 MG Atorvastati n Calcium 10 MG No 1{table t} QD Atorvastat in Calcium 10 MG Dicyclomine HCl 20 MG Dicyclomine HCl 20 MG No 1{table t} Dicyclomin e HCl 20 MG Metoprolol Tartrate 50 MG Metoprolol Tartrate 50 MG No 1{table t_with_ food} BID Metoprolol Tartrate 50 MG OLANZapine 5 MG OLANZapine 5 MG No OLANZapine 5 MG ALPRAZolam 0.5 MG ALPRAZolam 0.5 MG No 1{table t} BID ALPRAZolam 0.5 MG FLUoxetine HCl 60 MG FLUoxetine HCl 60 MG No 1{capsu le} QD FLUoxetine HCl 60 MG FLUoxetine HCl 20 MG FLUoxetine HCl 20 MG No QD FLUoxetine HCl 20 MG Omeprazole 40 MG Omeprazole 40 MG No Omeprazole 40 MG clonazePAM 1 MG clonazePAM 1 MG No 1{table t} clonazePAM 1 MG Omeprazole 40 MG Omeprazole 40 MG No Omeprazole 40 MG Dicyclomine HCl 20 MG Dicyclomine HCl 20 MG No 1{table t} Dicyclomin e HCl 20 MG Metoprolol Tartrate 50 MG Metoprolol Tartrate 50 MG No 1{table t_with_ food} BID Metoprolol Tartrate 50 MG ALPRAZolam 0.5 MG ALPRAZolam 0.5 MG No 1{table t} BID ALPRAZolam 0.5 MG Xarelto 15 MG Xarelto 15 MG No 1{table t_with_ food} BID Xarelto 15 MG clonazePAM 1 MG clonazePAM 1 MG No 1{table t} clonazePAM 1 MG Atorvastati n Calcium 10 MG Atorvastati n Calcium 10 MG No 1{table t} QD Atorvastat in Calcium 10 MG OLANZapine 5 MG OLANZapine 5 MG No OLANZapine 5 MG FLUoxetine HCl 20 MG FLUoxetine HCl 20 MG No QD FLUoxetine HCl 20 MG FLUoxetine HCl 60 MG FLUoxetine HCl 60 MG No 1{capsu le} QD FLUoxetine HCl 60 MG Xarelto Starter Pack 15 & 20 MG Xarelto Starter Pack 15 & 20 MG No Xarelto Starter Pack 15 & 20 MG Breztri Aerosphere Breztri Aerosphere No Breztri Aerosphere Metoprolol Tartrate 50 MG Metoprolol Tartrate 50 MG No 1{table t_with_ food} BID Metoprolol Tartrate 50 MG ALPRAZolam 0.5 MG ALPRAZolam 0.5 MG No 1{table t} BID ALPRAZolam 0.5 MG FLUoxetine HCl 20 MG FLUoxetine HCl 20 MG No QD FLUoxetine HCl 20 MG Atorvastati n Calcium 10 MG Atorvastati n Calcium 10 MG No 1{table t} QD Atorvastat in Calcium 10 MG Xarelto Starter Pack 15 & 20 MG Xarelto Starter Pack 15 & 20 MG No Xarelto Starter Pack 15 & 20 MG Dicyclomine HCl 20 MG Dicyclomine HCl 20 MG No 1{table t} Dicyclomin e HCl 20 MG Omeprazole 40 MG Omeprazole 40 MG No Omeprazole 40 MG clonazePAM 1 MG clonazePAM 1 MG No 1{table t} clonazePAM 1 MG OLANZapine 5 MG OLANZapine 5 MG No OLANZapine 5 MG FLUoxetine HCl 60 MG FLUoxetine HCl 60 MG No 1{capsu le} QD FLUoxetine HCl 60 MG Dexilant Dexilant No Dexilant Breztri Aerosphere Breztri Aerosphere No Metoprolol Tartrate 50 MG Metoprolol Tartrate 50 MG No 1{table t_with_ food} BID ALPRAZolam 0.5 MG ALPRAZolam 0.5 MG No 1{table t} BID FLUoxetine HCl 20 MG FLUoxetine HCl 20 MG No QD Atorvastati n Calcium 10 MG Atorvastati n Calcium 10 MG No 1{table t} QD Xarelto Starter Pack 15 & 20 MG Xarelto Starter Pack 15 & 20 MG No Dicyclomine HCl 20 MG Dicyclomine HCl 20 MG No 1{table t} Omeprazole 40 MG Omeprazole 40 MG No clonazePAM 1 MG clonazePAM 1 MG No 1{table t} OLANZapine 5 MG OLANZapine 5 MG No FLUoxetine HCl 60 MG FLUoxetine HCl 60 MG No 1{capsu le} QD Dexilant Dexilant No Breztri Aerosphere Breztri Aerosphere No Breztri Aerosphere Metoprolol Tartrate 50 MG Metoprolol Tartrate 50 MG No 1{table t_with_ food} BID Metoprolol Tartrate 50 MG ALPRAZolam 0.5 MG ALPRAZolam 0.5 MG No 1{table t} BID ALPRAZolam 0.5 MG FLUoxetine HCl 20 MG FLUoxetine HCl 20 MG No QD FLUoxetine HCl 20 MG Atorvastati n Calcium 10 MG Atorvastati n Calcium 10 MG No 1{table t} QD Atorvastat in Calcium 10 MG Xarelto Starter Pack 15 & 20 MG Xarelto Starter Pack 15 & 20 MG No Xarelto Starter Pack 15 & 20 MG Dicyclomine HCl 20 MG Dicyclomine HCl 20 MG No 1{table t} Dicyclomin e HCl 20 MG Omeprazole 40 MG Omeprazole 40 MG No Omeprazole 40 MG clonazePAM 1 MG clonazePAM 1 MG No 1{table t} clonazePAM 1 MG OLANZapine 5 MG OLANZapine 5 MG No OLANZapine 5 MG FLUoxetine HCl 60 MG FLUoxetine HCl 60 MG No 1{capsu le} QD FLUoxetine HCl 60 MG Dexilant Dexilant No Dexilant OLANZapine 5 MG OLANZapine 5 MG No OLANZapine 5 MG ALPRAZolam 0.5 MG ALPRAZolam 0.5 MG No 1{table t} BID ALPRAZolam 0.5 MG FLUoxetine HCl 20 MG FLUoxetine HCl 20 MG No QD FLUoxetine HCl 20 MG Metoprolol Tartrate 50 MG Metoprolol Tartrate 50 MG No 1{table t_with_ food} BID Metoprolol Tartrate 50 MG clonazePAM 1 MG clonazePAM 1 MG No 1{table t} clonazePAM 1 MG FLUoxetine HCl 60 MG FLUoxetine HCl 60 MG No 1{capsu le} QD FLUoxetine HCl 60 MG Omeprazole 40 MG Omeprazole 40 MG No Omeprazole 40 MG Breztri Aerosphere Breztri Aerosphere No Breztri Aerosphere Atorvastati n Calcium 10 MG Atorvastati n Calcium 10 MG No 1{table t} QD Atorvastat in Calcium 10 MG Dexilant Dexilant No Dexilant Dicyclomine HCl 20 MG Dicyclomine HCl 20 MG No 1{table t} Dicyclomin e HCl 20 MG Adderall 30 MG Adderall 30 MG No BID Adderall 30 MG Xarelto Starter Pack 15 & 20 MG Xarelto Starter Pack 15 & 20 MG No Xarelto Starter Pack 15 & 20 MG OLANZapine 5 MG OLANZapine 5 MG No OLANZapine 5 MG ALPRAZolam 0.5 MG ALPRAZolam 0.5 MG No 1{table t} BID ALPRAZolam 0.5 MG FLUoxetine HCl 20 MG FLUoxetine HCl 20 MG No QD FLUoxetine HCl 20 MG Metoprolol Tartrate 50 MG Metoprolol Tartrate 50 MG No 1{table t_with_ food} BID Metoprolol Tartrate 50 MG clonazePAM 1 MG clonazePAM 1 MG No 1{table t} clonazePAM 1 MG FLUoxetine HCl 60 MG FLUoxetine HCl 60 MG No 1{capsu le} QD FLUoxetine HCl 60 MG Omeprazole 40 MG Omeprazole 40 MG No Omeprazole 40 MG Breztri Aerosphere Breztri Aerosphere No Breztri Aerosphere Atorvastati n Calcium 10 MG Atorvastati n Calcium 10 MG No 1{table t} QD Atorvastat in Calcium 10 MG Dexilant Dexilant No Dexilant Dicyclomine HCl 20 MG Dicyclomine HCl 20 MG No 1{table t} Dicyclomin e HCl 20 MG Adderall 30 MG Adderall 30 MG No BID Adderall 30 MG Xarelto Starter Pack 15 & 20 MG Xarelto Starter Pack 15 & 20 MG No Xarelto Starter Pack 15 & 20 MG Xarelto Starter Pack 15 & 20 MG Xarelto Starter Pack 15 & 20 MG No Xarelto Starter Pack 15 & 20 MG ALPRAZolam 0.5 MG ALPRAZolam 0.5 MG No 1{table t} BID ALPRAZolam 0.5 MG FLUoxetine HCl 20 MG FLUoxetine HCl 20 MG No QD FLUoxetine HCl 20 MG Metoprolol Tartrate 50 MG Metoprolol Tartrate 50 MG No 1{table t_with_ food} BID Metoprolol Tartrate 50 MG clonazePAM 1 MG clonazePAM 1 MG No 1{table t} clonazePAM 1 MG Omeprazole 40 MG Omeprazole 40 MG No Omeprazole 40 MG OLANZapine 5 MG OLANZapine 5 MG No OLANZapine 5 MG Dexilant Dexilant No Dexilant Atorvastati n Calcium 10 MG Atorvastati n Calcium 10 MG No 1{table t} QD Atorvastat in Calcium 10 MG FLUoxetine HCl 60 MG FLUoxetine HCl 60 MG No 1{capsu le} QD FLUoxetine HCl 60 MG Dicyclomine HCl 20 MG Dicyclomine HCl 20 MG No 1{table t} Dicyclomin e HCl 20 MG Adderall 30 MG Adderall 30 MG No BID Adderall 30 MG Breztri Aerosphere Breztri Aerosphere No Breztri Aerosphere Xarelto Starter Pack 15 & 20 MG Xarelto Starter Pack 15 & 20 MG No Xarelto Starter Pack 15 & 20 MG ALPRAZolam 0.5 MG ALPRAZolam 0.5 MG No 1{table t} BID ALPRAZolam 0.5 MG FLUoxetine HCl 20 MG FLUoxetine HCl 20 MG No QD FLUoxetine HCl 20 MG Metoprolol Tartrate 50 MG Metoprolol Tartrate 50 MG No 1{table t_with_ food} BID Metoprolol Tartrate 50 MG clonazePAM 1 MG clonazePAM 1 MG No 1{table t} clonazePAM 1 MG Omeprazole 40 MG Omeprazole 40 MG No Omeprazole 40 MG OLANZapine 5 MG OLANZapine 5 MG No OLANZapine 5 MG Dexilant Dexilant No Dexilant Atorvastati n Calcium 10 MG Atorvastati n Calcium 10 MG No 1{table t} QD Atorvastat in Calcium 10 MG FLUoxetine HCl 60 MG FLUoxetine HCl 60 MG No 1{capsu le} QD FLUoxetine HCl 60 MG Dicyclomine HCl 20 MG Dicyclomine HCl 20 MG No 1{table t} Dicyclomin e HCl 20 MG Adderall 30 MG Adderall 30 MG No BID Adderall 30 MG Breztri Aerosphere Breztri Aerosphere No Breztri Aerosphere Xarelto Starter Pack 15 & 20 MG Xarelto Starter Pack 15 & 20 MG No Xarelto Starter Pack 15 & 20 MG ALPRAZolam 0.5 MG ALPRAZolam 0.5 MG No 1{table t} BID ALPRAZolam 0.5 MG FLUoxetine HCl 20 MG FLUoxetine HCl 20 MG No QD FLUoxetine HCl 20 MG Metoprolol Tartrate 50 MG Metoprolol Tartrate 50 MG No 1{table t_with_ food} BID Metoprolol Tartrate 50 MG clonazePAM 1 MG clonazePAM 1 MG No 1{table t} clonazePAM 1 MG Omeprazole 40 MG Omeprazole 40 MG No Omeprazole 40 MG OLANZapine 5 MG OLANZapine 5 MG No OLANZapine 5 MG Dexilant Dexilant No Dexilant Atorvastati n Calcium 10 MG Atorvastati n Calcium 10 MG No 1{table t} QD Atorvastat in Calcium 10 MG FLUoxetine HCl 60 MG FLUoxetine HCl 60 MG No 1{capsu le} QD FLUoxetine HCl 60 MG Dicyclomine HCl 20 MG Dicyclomine HCl 20 MG No 1{table t} Dicyclomin e HCl 20 MG Adderall 30 MG Adderall 30 MG No BID Adderall 30 MG Breztri Aerosphere Breztri Aerosphere No Breztri Aerosphere clonazePAM 1 MG clonazePAM 1 MG No 1{table t} clonazePAM 1 MG Xarelto Starter Pack 15 & 20 MG Xarelto Starter Pack 15 & 20 MG No Xarelto Starter Pack 15 & 20 MG OLANZapine 5 MG OLANZapine 5 MG No OLANZapine 5 MG FLUoxetine HCl 20 MG FLUoxetine HCl 20 MG No QD FLUoxetine HCl 20 MG ALPRAZolam 0.5 MG ALPRAZolam 0.5 MG No 1{table t} BID ALPRAZolam 0.5 MG Metoprolol Tartrate 50 MG Metoprolol Tartrate 50 MG No 1{table t_with_ food} BID Metoprolol Tartrate 50 MG Adderall 30 MG Adderall 30 MG No BID Adderall 30 MG FLUoxetine HCl 60 MG FLUoxetine HCl 60 MG No 1{capsu le} QD FLUoxetine HCl 60 MG Dicyclomine HCl 20 MG Dicyclomine HCl 20 MG No 1{table t} Dicyclomin e HCl 20 MG Xanax 0.5 MG Xanax 0.5 MG No 1{table t} BID Xanax 0.5 MG Atorvastati n Calcium 10 MG Atorvastati n Calcium 10 MG No 1{table t} QD Atorvastat in Calcium 10 MG Breztri Aerosphere Breztri Aerosphere No Breztri Aerosphere Omeprazole 40 MG Omeprazole 40 MG No Omeprazole 40 MG Dexilant Dexilant No Dexilant clonazePAM 1 MG clonazePAM 1 MG No 1{table t} clonazePAM 1 MG Xarelto Starter Pack 15 & 20 MG Xarelto Starter Pack 15 & 20 MG No Xarelto Starter Pack 15 & 20 MG OLANZapine 5 MG OLANZapine 5 MG No OLANZapine 5 MG FLUoxetine HCl 20 MG FLUoxetine HCl 20 MG No QD FLUoxetine HCl 20 MG ALPRAZolam 0.5 MG ALPRAZolam 0.5 MG No 1{table t} BID ALPRAZolam 0.5 MG Metoprolol Tartrate 50 MG Metoprolol Tartrate 50 MG No 1{table t_with_ food} BID Metoprolol Tartrate 50 MG Adderall 30 MG Adderall 30 MG No BID Adderall 30 MG FLUoxetine HCl 60 MG FLUoxetine HCl 60 MG No 1{capsu le} QD FLUoxetine HCl 60 MG Dicyclomine HCl 20 MG Dicyclomine HCl 20 MG No 1{table t} Dicyclomin e HCl 20 MG Xanax 0.5 MG Xanax 0.5 MG No 1{table t} BID Xanax 0.5 MG Atorvastati n Calcium 10 MG Atorvastati n Calcium 10 MG No 1{table t} QD Atorvastat in Calcium 10 MG Breztri Aerosphere Breztri Aerosphere No Breztri Aerosphere Omeprazole 40 MG Omeprazole 40 MG No Omeprazole 40 MG Dexilant Dexilant No Dexilant Xanax 0.5 MG Xanax 0.5 MG No 1{table t} BID Xanax 0.5 MG Metoprolol Tartrate 50 MG Metoprolol Tartrate 50 MG No 1{table t_with_ food} BID Metoprolol Tartrate 50 MG clonazePAM 1 MG clonazePAM 1 MG No 1{table t} clonazePAM 1 MG Xarelto Starter Pack 15 & 20 MG Xarelto Starter Pack 15 & 20 MG No Xarelto Starter Pack 15 & 20 MG Breztri Aerosphere Breztri Aerosphere No Breztri Aerosphere Adderall 30 MG Adderall 30 MG No BID Adderall 30 MG FLUoxetine HCl 60 MG FLUoxetine HCl 60 MG No 1{capsu le} QD FLUoxetine HCl 60 MG FLUoxetine HCl 20 MG FLUoxetine HCl 20 MG No QD FLUoxetine HCl 20 MG Dexilant Dexilant No Dexilant Atorvastati n Calcium 10 MG Atorvastati n Calcium 10 MG No 1{table t} QD Atorvastat in Calcium 10 MG ALPRAZolam 0.5 MG ALPRAZolam 0.5 MG No 1{table t} BID ALPRAZolam 0.5 MG Omeprazole 40 MG Omeprazole 40 MG No Omeprazole 40 MG Dicyclomine HCl 20 MG Dicyclomine HCl 20 MG No 1{table t} Dicyclomin e HCl 20 MG OLANZapine 5 MG OLANZapine 5 MG No OLANZapine 5 MG Xanax 0.5 MG Xanax 0.5 MG No 1{table t} BID Xanax 0.5 MG Metoprolol Tartrate 50 MG Metoprolol Tartrate 50 MG No 1{table t_with_ food} BID Metoprolol Tartrate 50 MG clonazePAM 1 MG clonazePAM 1 MG No 1{table t} clonazePAM 1 MG Xarelto Starter Pack 15 & 20 MG Xarelto Starter Pack 15 & 20 MG No Xarelto Starter Pack 15 & 20 MG Breztri Aerosphere Breztri Aerosphere No Breztri Aerosphere Adderall 30 MG Adderall 30 MG No BID Adderall 30 MG FLUoxetine HCl 60 MG FLUoxetine HCl 60 MG No 1{capsu le} QD FLUoxetine HCl 60 MG FLUoxetine HCl 20 MG FLUoxetine HCl 20 MG No QD FLUoxetine HCl 20 MG Dexilant Dexilant No Dexilant Atorvastati n Calcium 10 MG Atorvastati n Calcium 10 MG No 1{table t} QD Atorvastat in Calcium 10 MG ALPRAZolam 0.5 MG ALPRAZolam 0.5 MG No 1{table t} BID ALPRAZolam 0.5 MG Omeprazole 40 MG Omeprazole 40 MG No Omeprazole 40 MG Dicyclomine HCl 20 MG Dicyclomine HCl 20 MG No 1{table t} Dicyclomin e HCl 20 MG OLANZapine 5 MG OLANZapine 5 MG No OLANZapine 5 MG Xanax 0.5 MG Xanax 0.5 MG No 1{table t} BID Xanax 0.5 MG Metoprolol Tartrate 50 MG Metoprolol Tartrate 50 MG No 1{table t_with_ food} BID Metoprolol Tartrate 50 MG clonazePAM 1 MG clonazePAM 1 MG No 1{table t} clonazePAM 1 MG Xarelto Starter Pack 15 & 20 MG Xarelto Starter Pack 15 & 20 MG No Xarelto Starter Pack 15 & 20 MG Breztri Aerosphere Breztri Aerosphere No Breztri Aerosphere Adderall 30 MG Adderall 30 MG No BID Adderall 30 MG FLUoxetine HCl 60 MG FLUoxetine HCl 60 MG No 1{capsu le} QD FLUoxetine HCl 60 MG FLUoxetine HCl 20 MG FLUoxetine HCl 20 MG No QD FLUoxetine HCl 20 MG Dexilant Dexilant No Dexilant Atorvastati n Calcium 10 MG Atorvastati n Calcium 10 MG No 1{table t} QD Atorvastat in Calcium 10 MG ALPRAZolam 0.5 MG ALPRAZolam 0.5 MG No 1{table t} BID ALPRAZolam 0.5 MG Omeprazole 40 MG Omeprazole 40 MG No Omeprazole 40 MG Dicyclomine HCl 20 MG Dicyclomine HCl 20 MG No 1{table t} Dicyclomin e HCl 20 MG OLANZapine 5 MG OLANZapine 5 MG No OLANZapine 5 MG Metoprolol Tartrate 50 MG Metoprolol Tartrate 50 MG No 1{table t_with_ food} BID Metoprolol Tartrate 50 MG Dexilant Dexilant No Dexilant Xarelto Starter Pack 15 & 20 MG Xarelto Starter Pack 15 & 20 MG No Xarelto Starter Pack 15 & 20 MG ALPRAZolam 0.5 MG ALPRAZolam 0.5 MG No 1{table t} BID ALPRAZolam 0.5 MG OLANZapine 5 MG OLANZapine 5 MG No OLANZapine 5 MG Atorvastati n Calcium 10 MG Atorvastati n Calcium 10 MG No 1{table t} QD Atorvastat in Calcium 10 MG Xanax 0.5 MG Xanax 0.5 MG No 1{table t} BID Xanax 0.5 MG Dicyclomine HCl 20 MG Dicyclomine HCl 20 MG No 1{table t} Dicyclomin e HCl 20 MG FLUoxetine HCl 20 MG FLUoxetine HCl 20 MG No QD FLUoxetine HCl 20 MG Breztri [employer]osphere Breztri Aerosphere No Breztri Aerosphere FLUoxetine HCl 60 MG FLUoxetine HCl 60 MG No 1{capsu le} QD FLUoxetine HCl 60 MG Adderall 30 MG Adderall 30 MG No BID Adderall 30 MG Omeprazole 40 MG Omeprazole 40 MG No Omeprazole 40 MG methylPREDN ISolone 4 MG methylPREDN ISolone 4 MG No methylPRED NISolone 4 MG clonazePAM 1 MG clonazePAM 1 MG No 1{table t} clonazePAM 1 MG FLUoxetine HCl 60 MG FLUoxetine HCl 60 MG No 1{capsu le} QD FLUoxetine HCl 60 MG FLUoxetine HCl 20 MG FLUoxetine HCl 20 MG No QD FLUoxetine HCl 20 MG clonazePAM 1 MG clonazePAM 1 MG No 1{table t} clonazePAM 1 MG Xarelto Starter Pack 15 & 20 MG Xarelto Starter Pack 15 & 20 MG No Xarelto Starter Pack 15 & 20 MG methylPREDN ISolone 4 MG methylPREDN ISolone 4 MG No methylPRED NISolone 4 MG Adderall 30 MG Adderall 30 MG No BID Adderall 30 MG Xanax 0.5 MG Xanax 0.5 MG No 1{table t} BID Xanax 0.5 MG Dicyclomine HCl 20 MG Dicyclomine HCl 20 MG No 1{table t} Dicyclomin e HCl 20 MG ALPRAZolam 0.5 MG ALPRAZolam 0.5 MG No 1{table t} BID ALPRAZolam 0.5 MG Atorvastati n Calcium 10 MG Atorvastati n Calcium 10 MG No 1{table t} QD Atorvastat in Calcium 10 MG Dexilant Dexilant No Dexilant Omeprazole 40 MG Omeprazole 40 MG No Omeprazole 40 MG Breztri [employer]osphere Breztri Aerosphere No Breztri Aerosphere Metoprolol Tartrate 50 MG Metoprolol Tartrate 50 MG No 1{table t_with_ food} BID Metoprolol Tartrate 50 MG OLANZapine 5 MG OLANZapine 5 MG No OLANZapine 5 MG OLANZapine 5 MG OLANZapine 5 MG No OLANZapine 5 MG Omeprazole 40 MG Omeprazole 40 MG No Omeprazole 40 MG Xarelto Starter Pack 15 & 20 MG Xarelto Starter Pack 15 & 20 MG No Xarelto Starter Pack 15 & 20 MG ALPRAZolam 0.5 MG ALPRAZolam 0.5 MG No 1{table t} BID ALPRAZolam 0.5 MG Breztri Aerosphere Breztri Aerosphere No Breztri Aerosphere Adderall 30 MG Adderall 30 MG No BID Adderall 30 MG Dicyclomine HCl 20 MG Dicyclomine HCl 20 MG No 1{table t} Dicyclomin e HCl 20 MG Metoprolol Tartrate 50 MG Metoprolol Tartrate 50 MG No 1{table t_with_ food} BID Metoprolol Tartrate 50 MG Dexilant Dexilant No Dexilant FLUoxetine HCl 20 MG FLUoxetine HCl 20 MG No QD FLUoxetine HCl 20 MG clonazePAM 1 MG clonazePAM 1 MG No 1{table t} clonazePAM 1 MG Xanax 0.5 MG Xanax 0.5 MG No 1{table t} BID Xanax 0.5 MG methylPREDN ISolone 4 MG methylPREDN ISolone 4 MG No methylPRED NISolone 4 MG FLUoxetine HCl 60 MG FLUoxetine HCl 60 MG No 1{capsu le} QD FLUoxetine HCl 60 MG OLANZapine 5 MG OLANZapine 5 MG No OLANZapine 5 MG Omeprazole 40 MG Omeprazole 40 MG No Omeprazole 40 MG Xarelto Starter Pack 15 & 20 MG Xarelto Starter Pack 15 & 20 MG No Xarelto Starter Pack 15 & 20 MG ALPRAZolam 0.5 MG ALPRAZolam 0.5 MG No 1{table t} BID ALPRAZolam 0.5 MG Breztri Aerosphere Breztri Aerosphere No Breztri Aerosphere Adderall 30 MG Adderall 30 MG No BID Adderall 30 MG Dicyclomine HCl 20 MG Dicyclomine HCl 20 MG No 1{table t} Dicyclomin e HCl 20 MG Metoprolol Tartrate 50 MG Metoprolol Tartrate 50 MG No 1{table t_with_ food} BID Metoprolol Tartrate 50 MG Dexilant Dexilant No Dexilant FLUoxetine HCl 20 MG FLUoxetine HCl 20 MG No QD FLUoxetine HCl 20 MG clonazePAM 1 MG clonazePAM 1 MG No 1{table t} clonazePAM 1 MG Xanax 0.5 MG Xanax 0.5 MG No 1{table t} BID Xanax 0.5 MG methylPREDN ISolone 4 MG methylPREDN ISolone 4 MG No methylPRED NISolone 4 MG FLUoxetine HCl 60 MG FLUoxetine HCl 60 MG No 1{capsu le} QD FLUoxetine HCl 60 MG Xarelto Starter Pack 15 & 20 MG Xarelto Starter Pack 15 & 20 MG No Xarelto Starter Pack 15 & 20 MG ALPRAZolam 0.5 MG ALPRAZolam 0.5 MG No 1{table t} BID ALPRAZolam 0.5 MG FLUoxetine HCl 60 MG FLUoxetine HCl 60 MG No 1{capsu le} QD FLUoxetine HCl 60 MG OLANZapine 5 MG OLANZapine 5 MG No OLANZapine 5 MG Metoprolol Tartrate 50 MG Metoprolol Tartrate 50 MG No 1{table t_with_ food} BID Metoprolol Tartrate 50 MG clonazePAM 1 MG clonazePAM 1 MG No 1{table t} clonazePAM 1 MG Omeprazole 40 MG Omeprazole 40 MG No Omeprazole 40 MG Xanax 0.5 MG Xanax 0.5 MG No 1{table t} BID Xanax 0.5 MG FLUoxetine HCl 20 MG FLUoxetine HCl 20 MG No QD FLUoxetine HCl 20 MG methylPREDN ISolone 4 MG methylPREDN ISolone 4 MG No methylPRED NISolone 4 MG Dicyclomine HCl 20 MG Dicyclomine HCl 20 MG No 1{table t} Dicyclomin e HCl 20 MG Adderall 30 MG Adderall 30 MG No BID Adderall 30 MG PROzac PROzac No PROzac Breztri Aerosphere Breztri Aerosphere No Breztri Aerosphere Dexilant Dexilant No Dexilant Xarelto Starter Pack 15 & 20 MG Xarelto Starter Pack 15 & 20 MG No Xarelto Starter Pack 15 & 20 MG ALPRAZolam 0.5 MG ALPRAZolam 0.5 MG No 1{table t} BID ALPRAZolam 0.5 MG FLUoxetine HCl 60 MG FLUoxetine HCl 60 MG No 1{capsu le} QD FLUoxetine HCl 60 MG OLANZapine 5 MG OLANZapine 5 MG No OLANZapine 5 MG Metoprolol Tartrate 50 MG Metoprolol Tartrate 50 MG No 1{table t_with_ food} BID Metoprolol Tartrate 50 MG clonazePAM 1 MG clonazePAM 1 MG No 1{table t} clonazePAM 1 MG Omeprazole 40 MG Omeprazole 40 MG No Omeprazole 40 MG Xanax 0.5 MG Xanax 0.5 MG No 1{table t} BID Xanax 0.5 MG FLUoxetine HCl 20 MG FLUoxetine HCl 20 MG No QD FLUoxetine HCl 20 MG methylPREDN ISolone 4 MG methylPREDN ISolone 4 MG No methylPRED NISolone 4 MG Dicyclomine HCl 20 MG Dicyclomine HCl 20 MG No 1{table t} Dicyclomin e HCl 20 MG Adderall 30 MG Adderall 30 MG No BID Adderall 30 MG PROzac PROzac No PROzac Breztri Aerosphere Breztri Aerosphere No Breztri Aerosphere Dexilant Dexilant No Dexilant Xarelto Starter Pack 15 & 20 MG Xarelto Starter Pack 15 & 20 MG No Xarelto Starter Pack 15 & 20 MG ALPRAZolam 0.5 MG ALPRAZolam 0.5 MG No 1{table t} BID ALPRAZolam 0.5 MG FLUoxetine HCl 60 MG FLUoxetine HCl 60 MG No 1{capsu le} QD FLUoxetine HCl 60 MG OLANZapine 5 MG OLANZapine 5 MG No OLANZapine 5 MG Metoprolol Tartrate 50 MG Metoprolol Tartrate 50 MG No 1{table t_with_ food} BID Metoprolol Tartrate 50 MG clonazePAM 1 MG clonazePAM 1 MG No 1{table t} clonazePAM 1 MG Omeprazole 40 MG Omeprazole 40 MG No Omeprazole 40 MG Xanax 0.5 MG Xanax 0.5 MG No 1{table t} BID Xanax 0.5 MG FLUoxetine HCl 20 MG FLUoxetine HCl 20 MG No QD FLUoxetine HCl 20 MG methylPREDN ISolone 4 MG methylPREDN ISolone 4 MG No methylPRED NISolone 4 MG Dicyclomine HCl 20 MG Dicyclomine HCl 20 MG No 1{table t} Dicyclomin e HCl 20 MG Adderall 30 MG Adderall 30 MG No BID Adderall 30 MG PROzac PROzac No PROzac Breztri Aerosphere Breztri Aerosphere No Breztri Aerosphere Dexilant Dexilant No Dexilant Xarelto Starter Pack 15 & 20 MG Xarelto Starter Pack 15 & 20 MG No Xarelto Starter Pack 15 & 20 MG ALPRAZolam 0.5 MG ALPRAZolam 0.5 MG No 1{table t} BID ALPRAZolam 0.5 MG FLUoxetine HCl 60 MG FLUoxetine HCl 60 MG No 1{capsu le} QD FLUoxetine HCl 60 MG OLANZapine 5 MG OLANZapine 5 MG No OLANZapine 5 MG Metoprolol Tartrate 50 MG Metoprolol Tartrate 50 MG No 1{table t_with_ food} BID Metoprolol Tartrate 50 MG clonazePAM 1 MG clonazePAM 1 MG No 1{table t} clonazePAM 1 MG Omeprazole 40 MG Omeprazole 40 MG No Omeprazole 40 MG Xanax 0.5 MG Xanax 0.5 MG No 1{table t} BID Xanax 0.5 MG FLUoxetine HCl 20 MG FLUoxetine HCl 20 MG No QD FLUoxetine HCl 20 MG methylPREDN ISolone 4 MG methylPREDN ISolone 4 MG No methylPRED NISolone 4 MG Dicyclomine HCl 20 MG Dicyclomine HCl 20 MG No 1{table t} Dicyclomin e HCl 20 MG Adderall 30 MG Adderall 30 MG No BID Adderall 30 MG PROzac PROzac No PROzac Breztri Aerosphere Breztri Aerosphere No Breztri Aerosphere Dexilant Dexilant No Dexilant Xarelto Starter Pack 15 & 20 MG Xarelto Starter Pack 15 & 20 MG No Xarelto Starter Pack 15 & 20 MG ALPRAZolam 0.5 MG ALPRAZolam 0.5 MG No 1{table t} BID ALPRAZolam 0.5 MG FLUoxetine HCl 60 MG FLUoxetine HCl 60 MG No 1{capsu le} QD FLUoxetine HCl 60 MG OLANZapine 5 MG OLANZapine 5 MG No OLANZapine 5 MG Metoprolol Tartrate 50 MG Metoprolol Tartrate 50 MG No 1{table t_with_ food} BID Metoprolol Tartrate 50 MG clonazePAM 1 MG clonazePAM 1 MG No 1{table t} clonazePAM 1 MG Omeprazole 40 MG Omeprazole 40 MG No Omeprazole 40 MG Xanax 0.5 MG Xanax 0.5 MG No 1{table t} BID Xanax 0.5 MG FLUoxetine HCl 20 MG FLUoxetine HCl 20 MG No QD FLUoxetine HCl 20 MG methylPREDN ISolone 4 MG methylPREDN ISolone 4 MG No methylPRED NISolone 4 MG Dicyclomine HCl 20 MG Dicyclomine HCl 20 MG No 1{table t} Dicyclomin e HCl 20 MG Adderall 30 MG Adderall 30 MG No BID Adderall 30 MG PROzac PROzac No PROzac Breztri Aerosphere Breztri Aerosphere No Breztri Aerosphere Dexilant Dexilant No Dexilant Xarelto Starter Pack 15 & 20 MG Xarelto Starter Pack 15 & 20 MG No Xarelto Starter Pack 15 & 20 MG ALPRAZolam 0.5 MG ALPRAZolam 0.5 MG No 1{table t} BID ALPRAZolam 0.5 MG FLUoxetine HCl 60 MG FLUoxetine HCl 60 MG No 1{capsu le} QD FLUoxetine HCl 60 MG OLANZapine 5 MG OLANZapine 5 MG No OLANZapine 5 MG Metoprolol Tartrate 50 MG Metoprolol Tartrate 50 MG No 1{table t_with_ food} BID Metoprolol Tartrate 50 MG clonazePAM 1 MG clonazePAM 1 MG No 1{table t} clonazePAM 1 MG Omeprazole 40 MG Omeprazole 40 MG No Omeprazole 40 MG Xanax 0.5 MG Xanax 0.5 MG No 1{table t} BID Xanax 0.5 MG FLUoxetine HCl 20 MG FLUoxetine HCl 20 MG No QD FLUoxetine HCl 20 MG methylPREDN ISolone 4 MG methylPREDN ISolone 4 MG No methylPRED NISolone 4 MG Dicyclomine HCl 20 MG Dicyclomine HCl 20 MG No 1{table t} Dicyclomin e HCl 20 MG Adderall 30 MG Adderall 30 MG No BID Adderall 30 MG PROzac PROzac No PROzac Breztri Aerosphere Breztri Aerosphere No Breztri Aerosphere Dexilant Dexilant No Dexilant Adderall 30 MG Adderall 30 MG No BID Adderall 30 MG FLUoxetine HCl 20 MG FLUoxetine HCl 20 MG No QD FLUoxetine HCl 20 MG ALPRAZolam 0.5 MG ALPRAZolam 0.5 MG No 1{table t} BID ALPRAZolam 0.5 MG Dicyclomine HCl 20 MG Dicyclomine HCl 20 MG No 1{table t} Dicyclomin e HCl 20 MG Dexilant Dexilant No Dexilant Metoprolol Tartrate 50 MG Metoprolol Tartrate 50 MG No 1{table t_with_ food} BID Metoprolol Tartrate 50 MG Atorvastati n Calcium 20 MG Atorvastati n Calcium 20 MG No Atorvastat in Calcium 20 MG OLANZapine 5 MG OLANZapine 5 MG No OLANZapine 5 MG Famotidine 40 MG Famotidine 40 MG No 1{table t_at_be dtime} QD Famotidine 40 MG Adderall 30 MG Adderall 30 MG No BID Adderall 30 MG FLUoxetine HCl 20 MG FLUoxetine HCl 20 MG No QD FLUoxetine HCl 20 MG ALPRAZolam 0.5 MG ALPRAZolam 0.5 MG No 1{table t} BID ALPRAZolam 0.5 MG Dicyclomine HCl 20 MG Dicyclomine HCl 20 MG No 1{table t} Dicyclomin e HCl 20 MG Dexilant Dexilant No Dexilant Metoprolol Tartrate 50 MG Metoprolol Tartrate 50 MG No 1{table t_with_ food} BID Metoprolol Tartrate 50 MG Atorvastati n Calcium 20 MG Atorvastati n Calcium 20 MG No Atorvastat in Calcium 20 MG OLANZapine 5 MG OLANZapine 5 MG No OLANZapine 5 MG Famotidine 40 MG Famotidine 40 MG No 1{table t_at_be dtime} QD Famotidine 40 MG Immunizations Ordered Immunization Name Filled Immunization Name Date Status Comments Source FLUZONE HIGH DOSE OVER 65 FLUZONE HIGH DOSE OVER 65 2022-05-20 14:18:00 Completed [facility] FLUZONE HIGH DOSE OVER 65 FLUZONE HIGH DOSE OVER 65 2022-05-20 14:18:00 Completed [facility] FLUZONE HIGH DOSE OVER 65 FLUZONE HIGH DOSE OVER 65 2022-05-20 14:18:00 Completed [facility] FLUZONE HIGH DOSE OVER 65 FLUZONE HIGH DOSE OVER 65 2022-05-20 14:18:00 Completed [facility] FLUZONE HIGH DOSE OVER 65 FLUZONE HIGH DOSE OVER 65 2022-05-20 14:18:00 Completed [facility] FLUZONE HIGH DOSE OVER 65 FLUZONE HIGH DOSE OVER 65 2022-05-20 14:18:00 Completed [facility] FLUZONE HIGH DOSE OVER 65 FLUZONE HIGH DOSE OVER 65 2022-05-20 14:18:00 Completed [facility] Afluria Afluria 2021-03-26 09:44:00 Completed [facility] Afluria Afluria 2021-03-26 09:44:00 Completed [facility] Afluria Afluria 2021-03-26 09:44:00 Completed [facility] Afluria Afluria 2021-03-26 09:44:00 Completed [facility] Afluria Afluria 2021-03-26 09:44:00 Completed [facility] Afluria Afluria 2021-03-26 09:44:00 Completed [facility] Afluria Afluria 2021-03-26 09:44:00 Completed [facility] Afluria Afluria 2021-03-26 09:44:00 Completed [facility] Afluria Afluria 2021-03-26 09:44:00 Completed [facility] Afluria Afluria 2021-03-26 09:44:00 Completed [facility] Afluria Afluria 2021-03-26 09:44:00 Completed [facility] Afluria Afluria 2021-03-26 09:44:00 Completed [facility] Afluria Afluria 2021-03-26 09:44:00 Completed [facility] Afluria Afluria 2021-03-26 09:44:00 Completed [facility] Afluria Afluria 2021-03-26 09:44:00 Completed [facility] Afluria Afluria 2021-03-26 09:44:00 Completed [facility] Afluria Afluria 2021-03-26 09:44:00 Completed [facility] Afluria Afluria 2021-03-26 09:44:00 Completed [facility] Afluria Afluria 2021-03-26 09:44:00 Completed [facility] Afluria Afluria 2021-03-26 09:44:00 Completed [facility] Afluria Afluria 2021-03-26 09:44:00 Completed [facility] Afluria Afluria 2021-03-26 09:44:00 Completed [facility] Afluria Afluria 2021-03-26 09:44:00 Completed [facility] Afluria Afluria 2021-03-26 09:44:00 Completed [facility] Afluria Afluria 2021-03-26 09:44:00 Completed [facility] Afluria Afluria 2021-03-26 09:44:00 Completed [facility] Afluria Afluria 2021-03-26 09:44:00 Completed [facility] Afluria Afluria 2021-03-26 09:44:00 Completed [facility] Afluria Afluria 2021-03-26 09:44:00 Completed [facility] Afluria Afluria 2021-03-26 09:44:00 Completed [facility] Afluria Afluria 2021-03-26 09:44:00 Completed [facility] Afluria Afluria 2021-03-26 09:44:00 Completed [facility] Afluria Afluria 2021-03-26 09:44:00 Completed [facility] Afluria Afluria 2021-03-26 09:44:00 Completed [facility] Afluria Afluria 2021-03-26 09:44:00 Completed [facility] Afluria Afluria 2021-03-26 09:44:00 Completed [facility] Afluria Afluria 2021-03-26 09:44:00 Completed [facility] Afluria Afluria 2021-03-26 09:44:00 Completed [facility] Afluria Afluria 2021-03-26 09:44:00 Completed [facility] Pneumovax (PPSV23) Pneumovax (PPSV23) 2020-03-20 11:22:00 Completed [facility] Pneumovax (PPSV23) Pneumovax (PPSV23) 2020-03-20 11:22:00 Completed [facility] Pneumovax (PPSV23) Pneumovax (PPSV23) 2020-03-20 11:22:00 Completed [facility] Pneumovax (PPSV23) Pneumovax (PPSV23) 2020-03-20 11:22:00 Completed [facility] Pneumovax (PPSV23) Pneumovax (PPSV23) 2020-03-20 11:22:00 Completed [facility] Pneumovax (PPSV23) Pneumovax (PPSV23) 2020-03-20 11:22:00 Completed [facility] Pneumovax (PPSV23) Pneumovax (PPSV23) 2020-03-20 11:22:00 Completed [facility] Pneumovax (PPSV23) Pneumovax (PPSV23) 2020-03-20 11:22:00 Completed [facility] Pneumovax (PPSV23) Pneumovax (PPSV23) 2020-03-20 11:22:00 Completed [facility] Pneumovax (PPSV23) Pneumovax (PPSV23) 2020-03-20 11:22:00 Completed [facility] Pneumovax (PPSV23) Pneumovax (PPSV23) 2020-03-20 11:22:00 Completed [facility] Pneumovax (PPSV23) Pneumovax (PPSV23) 2020-03-20 11:22:00 Completed [facility] Pneumovax (PPSV23) Pneumovax (PPSV23) 2020-03-20 11:22:00 Completed [facility] Pneumovax (PPSV23) Pneumovax (PPSV23) 2020-03-20 11:22:00 Completed [facility] Pneumovax (PPSV23) Pneumovax (PPSV23) 2020-03-20 11:22:00 Completed [facility] Pneumovax (PPSV23) Pneumovax (PPSV23) 2020-03-20 11:22:00 Completed [facility] Pneumovax (PPSV23) Pneumovax (PPSV23) 2020-03-20 11:22:00 Completed [facility] Pneumovax (PPSV23) Pneumovax (PPSV23) 2020-03-20 11:22:00 Completed [facility] Pneumovax (PPSV23) Pneumovax (PPSV23) 2020-03-20 11:22:00 Completed [facility] Pneumovax (PPSV23) Pneumovax (PPSV23) 2020-03-20 11:22:00 Completed [facility] Pneumovax (PPSV23) Pneumovax (PPSV23) 2020-03-20 11:22:00 Completed [facility] Pneumovax (PPSV23) Pneumovax (PPSV23) 2020-03-20 11:22:00 Completed [facility] Pneumovax (PPSV23) Pneumovax (PPSV23) 2020-03-20 11:22:00 Completed [facility] Pneumovax (PPSV23) Pneumovax (PPSV23) 2020-03-20 11:22:00 Completed [facility] Pneumovax (PPSV23) Pneumovax (PPSV23) 2020-03-20 11:22:00 Completed [facility] Pneumovax (PPSV23) Pneumovax (PPSV23) 2020-03-20 11:22:00 Completed [facility] Pneumovax (PPSV23) Pneumovax (PPSV23) 2020-03-20 11:22:00 Completed [facility] Pneumovax (PPSV23) Pneumovax (PPSV23) 2020-03-20 11:22:00 Completed [facility] Pneumovax (PPSV23) Pneumovax (PPSV23) 2020-03-20 11:22:00 Completed [facility] Pneumovax (PPSV23) Pneumovax (PPSV23) 2020-03-20 11:22:00 Completed [facility] Pneumovax (PPSV23) Pneumovax (PPSV23) 2020-03-20 11:22:00 Completed [facility] Pneumovax (PPSV23) Pneumovax (PPSV23) 2020-03-20 11:22:00 Completed [facility] Pneumovax (PPSV23) Pneumovax (PPSV23) 2020-03-20 11:22:00 Completed [facility] Pneumovax (PPSV23) Pneumovax (PPSV23) 2020-03-20 11:22:00 Completed [facility] Pneumovax (PPSV23) Pneumovax (PPSV23) 2020-03-20 11:22:00 Completed [facility] Pneumovax (PPSV23) Pneumovax (PPSV23) 2020-03-20 11:22:00 Completed [facility] Pneumovax (PPSV23) Pneumovax (PPSV23) 2020-03-20 11:22:00 Completed [facility] Pneumovax (PPSV23) Pneumovax (PPSV23) 2020-03-20 11:22:00 Completed [facility] Pneumovax (PPSV23) Pneumovax (PPSV23) 2020-03-20 11:22:00 Completed [facility] Afluria single dose Afluria single dose 11:21:00 Completed [facility] Afluria single dose Afluria single dose 11:21:00 Completed [facility] Afluria single dose Afluria single dose 11:21:00 Completed [facility] Afluria single dose Afluria single dose 11:21:00 Completed [facility] Afluria single dose Afluria single dose 11:21:00 Completed [facility] Afluria single dose Afluria single dose 11:21:00 Completed [facility] Afluria single dose Afluria single dose 11:21:00 Completed [facility] Afluria single dose Afluria single dose 11:21:00 Completed [facility] Afluria single dose Afluria single dose 11:21:00 Completed [facility] Afluria single dose Afluria single dose 11:21:00 Completed [facility] Afluria single dose Afluria single dose 11:21:00 Completed [facility] Afluria single dose Afluria single dose 11:21:00 Completed [facility] Afluria single dose Afluria single dose 11:21:00 Completed [facility] Afluria single dose Afluria single dose 11:21:00 Completed [facility] Afluria single dose Afluria single dose 11:21:00 Completed [facility] Afluria single dose Afluria single dose 11:21:00 Completed [facility] Afluria single dose Afluria single dose 11:21:00 Completed [facility] Afluria single dose Afluria single dose 11:21:00 Completed [facility] Afluria single dose Afluria single dose 11:21:00 Completed [facility] Afluria single dose Afluria single dose 11:21:00 Completed [facility] Afluria single dose Afluria single dose 11:21:00 Completed [facility] Afluria single dose Afluria single dose 11:21:00 Completed [facility] Afluria single dose Afluria single dose 11:21:00 Completed [facility] Afluria single dose Afluria single dose 11:21:00 Completed [facility] Afluria single dose Afluria single dose 11:21:00 Completed [facility] Afluria single dose Afluria single dose 11:21:00 Completed [facility] Afluria single dose Afluria single dose 11:21:00 Completed [facility] Afluria single dose Afluria single dose 11:21:00 Completed [facility] Afluria single dose Afluria single dose 11:21:00 Completed [facility] Afluria single dose Afluria single dose 11:21:00 Completed [facility] Afluria single dose Afluria single dose 11:21:00 Completed [facility] Afluria single dose Afluria single dose 11:21:00 Completed [facility] Afluria single dose Afluria single dose 11:21:00 Completed [facility] Afluria single dose Afluria single dose 11:21:00 Completed [facility] Afluria single dose Afluria single dose 11:21:00 Completed [facility] Afluria single dose Afluria single dose 11:21:00 Completed [facility] Afluria single dose Afluria single dose 11:21:00 [facility] Afluria single dose Afluria single dose 11:21:00 Completed [facility] Afluria single dose Afluria single dose 11:21:00 [facility] Afluria single dose Afluria single dose Unknown Completed [facility] Afluria Afluria Unknown Completed [facility] Pneumovax (PPSV23) Pneumovax (PPSV23) Unknown Completed [facility] FLUZONE HIGH DOSE OVER 65 FLUZONE HIGH DOSE OVER 65 Unknown Completed [facility] Afluria single dose Afluria single dose Unknown Completed [facility] Afluria Afluria Unknown Completed [facility] Pneumovax (PPSV23) Pneumovax (PPSV23) Unknown Completed [facility] FLUZONE HIGH DOSE OVER 65 FLUZONE HIGH DOSE OVER 65 Unknown Completed [facility] Afluria single dose Afluria single dose Unknown Completed [facility] Afluria Afluria Unknown Completed [facility] Pneumovax (PPSV23) Pneumovax (PPSV23) Unknown Completed [facility] FLUZONE HIGH DOSE OVER 65 FLUZONE HIGH DOSE OVER 65 Unknown Completed [facility] Afluria single dose Afluria single dose Unknown Completed [facility] Afluria Afluria Unknown Completed [facility] Pneumovax (PPSV23) Pneumovax (PPSV23) Unknown Completed [facility] FLUZONE HIGH DOSE OVER 65 FLUZONE HIGH DOSE OVER 65 Unknown Completed [facility] Afluria single dose Afluria single dose Unknown Completed [facility] Afluria Afluria Unknown Completed [facility] Pneumovax (PPSV23) Pneumovax (PPSV23) Unknown Completed [facility] FLUZONE HIGH DOSE OVER 65 FLUZONE HIGH DOSE OVER 65 Unknown Completed [facility] Afluria (IIV4) - 3 years and older - SDS - 0.5mL Afluria (IIV4) - 3 years and older - SDS - 0.5mL Unknown Completed [facility] Afluria Afluria Unknown Completed [facility] Pneumovax (PPSV23) Pneumovax (PPSV23) Unknown Completed [facility] FLUZONE HIGH DOSE OVER 65 FLUZONE HIGH DOSE OVER 65 Unknown Completed [facility] Vital Signs Vital Name Observation Time Observation Value Comments S ource height 2022-11-30 11:10:00 60 [in_i] Commo n [facility] weight 2022-11-30 11:10:00 140.4 [lb_av] Co mmon [facility] temperature 2022-11-30 11:10:00 97.2 [degF] Com mon [facility] bmi 2022-11-30 11:10:00 27.42 kg/m2 Comm on [facility] oximetry 2022-11-30 11:10:00 98 % Commo n [facility] respiratory rate 2022-11-30 11:10:00 18 /min [facility] blood pressure systolic 2022-11-30 11:10:00 115 mm[Hg] [facility] blood pressure diastolic 2022-11-30 11:10:00 68 mm[Hg] Common [facility] height 2022-11-30 11:30:00 60 [in_i] Commo n [facility] weight 2022-11-30 11:30:00 140.4 [lb_av] Co mmon [facility] temperature 2022-11-30 11:30:00 97.2 [degF] Com mon [facility] bmi 2022-11-30 11:30:00 27.42 kg/m2 Comm on [facility] oximetry 2022-11-30 11:30:00 98 % Commo n [facility] respiratory rate 2022-11-30 11:30:00 18 /min [facility] blood pressure systolic 2022-11-30 11:30:00 115 mm[Hg] [facility] blood pressure diastolic 2022-11-30 11:30:00 68 mm[Hg] [facility] Systolic blood pressure 2022-06-16 17:38:00 113 mm[Hg] [facility] Diastolic blood pressure 2022-06-16 17:38:00 62 mm[Hg] [facility] Heart rate 2022-06-16 17:38:00 70 /min [facility] Body temperature 2022-06-16 17:38:00 36.67 [place] [facility] Respiratory rate 2022-06-16 17:38:00 16 /min [facility] Oxygen saturation in Arterial blood by Pulse oximetry 2022-06-16 17:38:00 95 /min [facility] Body height 2022-06-15 19:14:00 152.4 cm [facility] Body weight 2022-06-15 19:14:00 55.792 kg [facility] BMI 2022-06-15 19:14:00 24.02 kg/m2 [facility] Systolic blood pressure 2022-06-15 13:41:00 127 mm[Hg] [facility] Diastolic blood pressure 2022-06-15 13:41:00 62 mm[Hg] [facility] Heart rate 2022-06-15 13:41:00 71 /min [facility] Body temperature 2022-06-15 13:41:00 36.72 [place] [facility] Respiratory rate 2022-06-15 13:41:00 18 /min [facility] Oxygen saturation in Arterial blood by Pulse oximetry 2022-06-15 13:41:00 93 /min [facility] Body weight 2022-06-14 06:00:00 56 kg [facility] BMI 2022-06-14 06:00:00 24.02 kg/m2 [facility] height 2022-05-31 10:30:00 60 [in_i] Commo n [facility] weight 2022-05-31 10:30:00 143 [lb_av] Comm on [facility] temperature 2022-05-31 10:30:00 97.2 [degF] Com [facility] bmi 2022-05-31 10:30:00 27.92 kg/m2 Comm on [facility] blood pressure systolic 2022-05-31 10:30:00 134 mm[Hg] Common [facility] blood pressure diastolic 2022-05-31 10:30:00 62 mm[Hg] Common [facility] height 2022-05-20 13:50:00 60 [in_i] Commo n [facility] weight 2022-05-20 13:50:00 144.2 [lb_av] Co mmon [facility] temperature 2022-05-20 13:50:00 97.6 [degF] Com mon [facility] bmi 2022-05-20 13:50:00 28.16 kg/m2 Comm on [facility] oximetry 2022-05-20 13:50:00 97 % Commo n [facility] respiratory rate 2022-05-20 13:50:00 17 /min Common [facility] blood pressure systolic 2022-05-20 13:50:00 131 mm[Hg] Common [facility] blood pressure diastolic 2022-05-20 13:50:00 60 mm[Hg] [facility] height 2022-03-24 10:10:00 60 [in_i] Commo n [facility] weight 2022-03-24 10:10:00 141.8 [lb_av] Co mmon [facility] temperature 2022-03-24 10:10:00 97.3 [degF] Com mon [facility] bmi 2022-03-24 10:10:00 27.69 kg/m2 Comm on [facility] oximetry 2022-03-24 10:10:00 98 % Commo n [facility] respiratory rate 2022-03-24 10:10:00 18 /min [facility] blood pressure systolic 2022-03-24 10:10:00 132 mm[Hg] [facility] blood pressure diastolic 2022-03-24 10:10:00 72 mm[Hg] [facility] height 2022-01-05 13:30:00 60 [in_i] Commo n [facility] weight 2022-01-05 13:30:00 139 [lb_av] Comm on [facility] bmi 2022-01-05 13:30:00 27.14 kg/m2 Comm on [facility] blood pressure systolic 2022-01-05 13:30:00 112 mm[Hg] Common [facility] blood pressure diastolic 2022-01-05 13:30:00 78 mm[Hg] [facility] height 2021-12-02 09:50:00 60 [in_i] Commo n [facility] weight 2021-12-02 09:50:00 131.6 [lb_av] Co mmon [facility] temperature 2021-12-02 09:50:00 97.3 [degF] Com mon [facility] bmi 2021-12-02 09:50:00 25.7 kg/m2 Commo n [facility] oximetry 2021-12-02 09:50:00 99 % Commo n [facility] respiratory rate 2021-12-02 09:50:00 17 /min Common [facility] blood pressure systolic 2021-12-02 09:50:00 119 mm[Hg] [facility] blood pressure diastolic 2021-12-02 09:50:00 58 mm[Hg] Common [facility] height 2021-10-06 15:00:00 60 [in_i] Commo n [facility] weight 2021-10-06 15:00:00 132.4 [lb_av] Co mmon [facility] bmi 2021-10-06 15:00:00 25.85 kg/m2 Comm on [facility] blood pressure systolic 2021-10-06 15:00:00 104 mm[Hg] [facility] blood pressure diastolic 2021-10-06 15:00:00 58 mm[Hg] Common [facility] height 2021-09-07 14:30:00 60 [in_i] Commo n [facility] weight 2021-09-07 14:30:00 132 [lb_av] Comm on [facility] bmi 2021-09-07 14:30:00 25.78 kg/m2 Comm on [facility] blood pressure systolic 2021-09-07 14:30:00 134 mm[Hg] [facility] blood pressure diastolic 2021-09-07 14:30:00 84 mm[Hg] [facility] height 2021-07-30 14:30:00 60 [in_i] Commo n [facility] weight 2021-07-30 14:30:00 132 [lb_av] Comm on [facility] temperature 2021-07-30 14:30:00 98.0 [degF] Com [facility] bmi 2021-07-30 14:30:00 25.78 kg/m2 Comm on [facility] blood pressure systolic 2021-07-30 14:30:00 112 mm[Hg] [facility] blood pressure diastolic 2021-07-30 14:30:00 72 mm[Hg] [facility] height 2021-07-06 09:20:00 60 [in_i] Commo n [facility] weight 2021-07-06 09:20:00 131.4 [lb_av] Co [facility] temperature 2021-07-06 09:20:00 97.9 [degF] Com [facility] bmi 2021-07-06 09:20:00 25.66 kg/m2 Comm on [facility] oximetry 2021-07-06 09:20:00 99 % Commo n [facility] respiratory rate 2021-07-06 09:20:00 18 /min [facility] blood pressure systolic 2021-07-06 09:20:00 121 mm[Hg] Common [facility] blood pressure diastolic 2021-07-06 09:20:00 57 mm[Hg] [facility] height 2021-07-06 08:30:00 60 [in_i] Commo n [facility] weight 2021-07-06 08:30:00 131.4 [lb_av] Co [facility] temperature 2021-07-06 08:30:00 97.9 [degF] Com [facility] bmi 2021-07-06 08:30:00 25.66 kg/m2 Comm on [facility] oximetry 2021-07-06 08:30:00 99 % Commo n [facility] blood pressure systolic 2021-07-06 08:30:00 121 mm[Hg] Common [facility] blood pressure diastolic 2021-07-06 08:30:00 57 mm[Hg] Common [facility] height 2021-05-28 14:45:00 60 [in_i] Commo n [facility] weight 2021-05-28 14:45:00 132 [lb_av] Comm on [facility] temperature 2021-05-28 14:45:00 97.8 [degF] Com [facility] bmi 2021-05-28 14:45:00 25.78 kg/m2 Comm on [facility] blood pressure systolic 2021-05-28 14:45:00 124 mm[Hg] Common [facility] blood pressure diastolic 2021-05-28 14:45:00 80 mm[Hg] Common [facility] height 2021-05-21 14:30:00 60 [in_i] Commo n [facility] weight 2021-05-21 14:30:00 132 [lb_av] Comm on [facility] temperature 2021-05-21 14:30:00 97.6 [degF] Com [facility] bmi 2021-05-21 14:30:00 25.78 kg/m2 Comm on [facility] blood pressure systolic 2021-05-21 14:30:00 112 mm[Hg] Common [facility] blood pressure diastolic 2021-05-21 14:30:00 74 mm[Hg] [facility] height 2021-05-14 14:30:00 60 [in_i] Commo n [facility] weight 2021-05-14 14:30:00 132 [lb_av] Comm on [facility] temperature 2021-05-14 14:30:00 98.0 [degF] Com mon [facility] bmi 2021-05-14 14:30:00 25.78 kg/m2 Comm on [facility] blood pressure systolic 2021-05-14 14:30:00 100 mm[Hg] [facility] blood pressure diastolic 2021-05-14 14:30:00 60 mm[Hg] Common [facility] height 2021-04-20 09:30:00 60 [in_i] Commo n [facility] weight 2021-04-20 09:30:00 132 [lb_av] Comm on [facility] bmi 2021-04-20 09:30:00 25.78 kg/m2 Comm on [facility] height 2021-04-07 09:30:00 60 [in_i] Commo n [facility] weight 2021-04-07 09:30:00 132.6 [lb_av] Co mmon [facility] temperature 2021-04-07 09:30:00 97.7 [degF] Com [facility] bmi 2021-04-07 09:30:00 25.89 kg/m2 Comm on [facility] oximetry 2021-04-07 09:30:00 97 % Commo n [facility] respiratory rate 2021-04-07 09:30:00 16 /min Common [facility] blood pressure systolic 2021-04-07 09:30:00 121 mm[Hg] [facility] blood pressure diastolic 2021-04-07 09:30:00 56 mm[Hg] Common [facility] height 2021-03-26 09:50:00 60 [in_i] Commo n [facility] weight 2021-03-26 09:50:00 131.4 [lb_av] Co mmon [facility] temperature 2021-03-26 09:50:00 97.5 [degF] Com mon [facility] bmi 2021-03-26 09:50:00 25.66 kg/m2 Comm on [facility] oximetry 2021-03-26 09:50:00 98 % Commo n [facility] respiratory rate 2021-03-26 09:50:00 17 /min Common [facility] blood pressure systolic 2021-03-26 09:50:00 113 mm[Hg] Common [facility] blood pressure diastolic 2021-03-26 09:50:00 56 mm[Hg] Common [facility] Body height 2020-11-19 18:36:00 152.4 cm [facility] Body weight 2020-11-19 18:36:00 56.9 kg [facility] BMI 2020-11-19 18:36:00 24.50 kg/m2 [facility] Body height 2020-07-17 14:33:00 152.4 cm [facility] Body weight 2020-07-17 14:33:00 56.881 kg [facility] BMI 2020-07-17 14:33:00 24.49 kg/m2 [facility] Systolic blood pressure 2022-06-15 17:07:00 109 mm[Hg] [facility] Diastolic blood pressure 2022-06-15 17:07:00 64 mm[Hg] [facility] Heart rate 2022-06-15 17:07:00 69 /min [facility] Body temperature 2022-06-15 17:07:00 36.5 [place] [facility] Respiratory rate 2022-06-15 17:07:00 17 /min [facility] Oxygen saturation in Arterial blood by Pulse oximetry 2022-06-15 17:07:00 93 /min [facility] Body weight 2022-06-14 06:00:00 56 kg [facility] BMI 2022-06-14 06:00:00 24.11 kg/m2 [facility] Body height 2020-11-25 14:44:00 152.4 cm [facility] Procedures Procedure Date / Time Performed Performing Clinician Source REFERRAL- REQUEST/RESPONSE 2022-12-04 05:01:00 Doctor Unassigned, Gay [facility] EXTERNAL PROVIDER RECORDS 2022-06-23 06:01:00 Doctor Unassigned, Gay [facility] CBC WITHOUT DIFF 2022-06-16 11:54:00 Lavon Monge [facility] CBC WITHOUT DIFF 2022-06-16 11:54:00 Lavon Monge [facility] MAGNESIUM 2022-06-15 21:55:00 Lavon Monge [facility] BASIC METABOLIC PANEL (NA, K , CL, CO2, GLUCOSE, BUN, CREATININE, CA) 2022-06-15 21:55:00 Lavon Monge [facility] CBC WITH DIFF 2022-06-15 21:55:00 Lavon Monge [facility] MAGNESIUM 2022-06-15 21:55:00 Lavon Monge [facility] BASIC METABOLIC PANEL (NA, K , CL, CO2, GLUCOSE, BUN, CREATININE, CA) 2022-06-15 21:55:00 Lavon Monge [facility] CBC WITH DIFF 2022-06-15 21:55:00 Lavon Monge [facility] ESOPHAGOGASTRODUODENOSCOPY 2022-06-15 19:37:00 Alexandru Austin [facility] ESOPHAGOGASTRODUODENOSCOPY 2022-06-15 19:37:00 Alexandru Austin [facility] EGD (ENDO) 2022-06-15 18:33:01 Tiffani Darby [facility] EGD (ENDO) 2022-06-15 18:33:01 Tiffani Darby [facility] CBC WITHOUT DIFF 2022-06-14 22:38:00 Lavon Monge [facility] TROPONIN I 2022-06-14 22:38:00 Lavon Monge [facility] TROPONIN I 2022-06-14 22:38:00 Lavon Monge [facility] CBC WITHOUT DIFF 2022-06-14 22:38:00 Lavon Monge [facility] TROPONIN I 2022-06-14 22:38:00 Lavon Monge [facility] CBC WITHOUT DIFF 2022-06-14 22:38:00 Lavon Monge [facility] HB ECG ROUTINE & RHYTHM STRIP 2022-06-14 16:53:14 Kristan Monroe [facility] HB ECG ROUTINE & RHYTHM STRIP 2022-06-14 16:53:14 Kristan Monroe [facility] HB ECG ROUTINE & RHYTHM STRIP 2022-06-14 16:53:14 Kristan Monroe [facility] HB ECG ROUTINE & RHYTHM STRIP 2022-06-14 16:51:07 Loglisa [facility] HB ECG ROUTINE & RHYTHM STRIP 2022-06-14 16:51:07 Loglisa [facility] HB ECG ROUTINE & RHYTHM STRIP 2022-06-14 16:51:07 Noni [facility] URINALYSIS 2022-06-14 09:50:00 Loghidawna [facility] URINE CULTURE 2022-06-14 09:50:00 Loghin [facility] URINALYSIS 2022-06-14 09:50:00 Loghin [facility] URINE CULTURE 2022-06-14 09:50:00 Loghin [facility] URINALYSIS 2022-06-14 09:50:00 Loghin [facility] URINE CULTURE 2022-06-14 09:50:00 Loglisa [facility] XR CHEST 1 VW 2022-06-14 09:37:00 Loghin [facility] XR CHEST 1 VW 2022-06-14 09:37:00 Logdinorahn [facility] XR CHEST 1 VW 2022-06-14 09:37:00 Loglisa [facility] CBC WITH DIFF 2022-06-14 07:13:00 Noni [facility] COMP. METABOLIC PANEL ([id number]) 2022-06-14 07:13:00 Loglisa [facility] THYROID STIMULATING HORMONE 2022-06-14 07:13:00 Loglisa [facility] FREE T4 2022-06-14 07:13:00 Loglisa [facility] MAGNESIUM 2022-06-14 07:13:00 Loghidawna [facility] PHOSPHORUS 2022-06-14 07:13:00 Loghidawna [facility] GLYCOSYLATED HEMOGLOBIN (A1C) 2022-06-14 07:13:00 Loghidawna [facility] LIPID PANEL ([id number])(TOTAL CHOLESTEROL, TRIGLYCERIDES, HDL) 2022-06-14 07:13:00 Loglisa [facility] PROTHROMBIN TIME / INR 2022-06-14 07:13:00 Loghidawna [facility] N-TERMINAL PRO-BNP 2022-06-14 07:13:00 Loghidawna [facility] TROPONIN I 2022-06-14 07:13:00 Loghidawna [facility] PROCALCITONIN 2022-06-14 07:13:00 Loghidawna [facility] COVID-19 (ID NOW RAPID TESTING) 07:13:00 Loglisa [facility] GALV ONLY - INFLUENZA A B RSV PCR 06-14 07:13:00 Loghidawna [facility] IRON PANEL 2022-06-14 07:13:00 Loglisa [facility] FERRITIN SERUM 2022-06-14 07:13:00 Loglisa [facility] VITAMIN B12, LEVEL 2022-06-14 07:13:00 Loghin [facility] FOLATE 2022-06-14 07:13:00 Loglisa [facility] LAB ONLY COVID INTERPRETATION 2022-06-14 07:13:00 Loghidawna [facility] PHOSPHORUS 2022-06-14 07:13:00 Loghidawna [facility] MAGNESIUM 2022-06-14 07:13:00 Loghin [facility] FERRITIN SERUM 2022-06-14 07:13[facility]00 [facility] 2022-06-14 07:13:00 [facility] 2022-06-14 07:13:00 Noni [facility] TROPONIN I 2022-06-14 07:13:00 Loglisa [facility] FREE T4 2022-06-14 07:13:00 Loglsia [facility] THYROID STIMULATING HORMONE 2022-06-14 07:13:00 Loglisa [facility] COMP. METABOLIC PANEL ([id number]) 2022-06-14 07:13:00 Noni [facility] LIPID PANEL ([id number])(TOTAL CHOLESTEROL, TRIGLYCERIDES, HDL) 2022-06-14 07:13:00 Noni [facility] IRON PANEL 2022-06-14 07:13:00 Noni [facility] CBC WITH DIFF 2022-06-14 07:13:00 Loglisa [facility] GLYCOSYLATED HEMOGLOBIN (A1C) 2022-06-14 07:13:00 Noni [facility] PROTHROMBIN TIME / INR 2022-06-14 07:13:00 Noni [facility] GALV ONLY - INFLUENZA A B RSV PCR 06-14 07:13:00 Noni [facility] N-TERMINAL PRO-BNP 2022-06-14 07:13:00 Loglisa [facility] PROCALCITONIN 2022-06-14 07:13:00 Noni [facility] COVID-19 (ID NOW RAPID TESTING) 07:13:00 Noni [facility] LAB ONLY COVID INTERPRETATION 2022-06-14 07:13:00 Noni [facility] PHOSPHORUS 2022-06-14 07:13:00 Noni [facility] MAGNESIUM 2022-06-14 07:13:00 Noni [facility] FERRITIN SERUM 2022-06-14:13:00 [facility] B12, LEVEL 2022-06-14 07:13:00 [facility] 2022-06-14 07:13:00 Loglisa [facility] TROPONIN I 2022-06-14 07:13:00 [facility] FREE T4 2022-06-14 07:13:00 Loglisa [facility] THYROID STIMULATING HORMONE 2022-06-14 07:13:00 Loglisa [facility] COMP. METABOLIC PANEL ([id number]) 2022-06-14 07:13:00 Loglisa [facility] LIPID PANEL ([id number])(TOTAL CHOLESTEROL, TRIGLYCERIDES, HDL) 2022-06-14 07:13:00 Loglisa [facility] IRON PANEL 2022-06-14 07:13:00 Noni [facility] CBC WITH DIFF 2022-06-14 07:13:00 Loglisa [facility] GLYCOSYLATED HEMOGLOBIN (A1C) 2022-06-14 07:13:00 Noni [facility] PROTHROMBIN TIME / INR 2022-06-14 07:13:00 Noni [facility] GALV ONLY - INFLUENZA A B RSV PCR 06-14 07:13:00 Noni [facility] N-TERMINAL PRO-BNP 2022-06-14 07:13:00 Loglisa [facility] PROCALCITONIN 2022-06-14 07:13:00 Noni [facility] COVID-19 (ID NOW RAPID TESTING) 07:13:00 Noni [facility] LAB ONLY COVID INTERPRETATION 2022-06-14 07:13:00 Noni [facility] Encounters Start Date/Time End Date/Time Encounter Type Admission Type Attending [facility] Care Facility Care Department Encounter ID Source 2022-12-21 14:09:06 Outpatient [facility] [id number] [facility] 2022-12-03 10:02:37 Outpatient [facility] [id number] [facility] 2022-12-01 09:03:31 Outpatient [facility] [id number] [facility] 2022-09-08 10:20:56 Outpatient [facility] [id number] [facility] 2022-08-30 10:41:01 Outpatient [facility] [id number] [facility] 2022-08-23 10:00:40 Outpatient [facility] [id number] [facility] 2022-08-18 16:34:00 Outpatient Hancock, Nirmal [facility] [id number] [facility] 2022-08-13 12:11:39 Outpatient [facility] [id number] [facility] 2022-08-12 13:17:04 Outpatient [facility] [id number] [facility] 2022-07-21 13:35:27 Outpatient [facility] [id number] [facility] 2022-06-24 08:59:26 Outpatient [facility] [id number] [facility] 2022-06-03 16:40:39 Outpatient [facility] [id number] [facility] 2022-05-31 11:39:01 Outpatient Hancock, Nirmal [facility] ST[facility] [id number] [facility] 2022-05-19 14:43:00 Outpatient Hancock, Nirmal [facility] STL[facility] [id number] [facility] 2022-04-23 11:17:01 Outpatient Hancock, Nirmal [facility] ST[facility] [id number] [facility] 2022-04-17 11:08:00 Outpatient Hancock, Nirmal [facility] ST[facility] [id number] [facility] 2022-01-06 13:28:00 Outpatient Hancock, Nirmal [facility] ST[facility] [id number] [facility] 2021-11-02 09:01:18 Outpatient Hancock, Nirmal [facility] STL[facility]C [id number] [facility] 2021-09-21 13:05:01 Outpatient Hancock, Nirmal [facility] STL[facility] [id number] [facility] 2021-07-29 10:19:01 Outpatient Hancock, Nirmal [facility] STL[facility] [id number] [facility] 2021-07-08 14:39:04 Outpatient Hancock, Nirmal [facility] STL[facility] [id number] [facility] 2021-07-08 14:11:57 Outpatient Hancock, Nirmal STLC STL[facility]C [id number] [facility] 2021-07-08 14:09:54 Outpatient Hancock, Nirmal STLC STL[facility]C [id number] [facility] 2021-07-08 12:46:03 Outpatient Hancock, Nirmal STLC STLMLC [id number] [facility] 2021-07-08 12:36:17 Outpatient Hancock, Nirmal STLC STLMLC [id number] [facility] 2021-07-08 12:17:58 Outpatient Hancock, Niraml STLMLC STL[facility]C [id number] [facility] 2021-07-08 11:28:21 Outpatient Hancock, Nirmal ST[facility] STL[facility]C [id number] [facility] 2021-07-08 11:18:20 Outpatient Hancock, Nirmal [facility]C STL[facility]C [id number] [facility] 2021-07-08 11:13:47 Outpatient Hancock, Nirmal ST[facility]C STLMLC [id number] [facility] 2021-07-08 11:09:58 Outpatient Hancock, Nirmal [facility] STL[facility] [id number] [facility] 2021-07-08 11:08:14 Outpatient Nirmal Hancock [facility] [id number] [facility] 2021-04-13 11:39:26 Outpatient R NIVIA BESS [facility] GIE [id number] [facility] 2021-04-12 23:35:55 Outpatient NIVIA BANEGAS [facility] [id number] [facility] 2021-04-11 21:31:44 Outpatient R NIVIA BESS [facility] GIE [id number] [facility] 2023-09-27 10:45:00 2023-09-27 10:45:00 Outpatient JODY ALBRECHT [facility] [id number] [facility] 2023-08-11 00:00:00 2023-08-11 00:00:00 (TEL) [facility] [id number] [facility] 2023-08-02 00:00:00 2023-08-02 14:30:00 Outpatient [facility] [id number] [facility] 2023-08-02 11:30:00 2023-08-02 14:29:53 Office Visit JODY ALBRECHT [facility] 2 .2.840.114 350.1.13.58 9.2.7.2.686 [id number] [facility] 2023-07-26 11:18:45 2023-07-26 11:18:45 Outpatient [facility] [id number] Sergio Hayes 2023-06-28 11:00:00 2023-06-28 11:00:00 Outpatient JODY ALBRECHT [facility] [id number] [facility] 2023-05-31 13:45:00 2023-05-31 13:45:00 Office Visit Jody Albrecht [facility] 2 .2.840.114 350.1.13.58 9.2.7.2.686 [id number] [facility] 2023-05-31 13:45:00 2023-05-31 13:32:51 Outpatient [facility] [id number] [facility] 2023-05-18 08:45:00 2023-05-18 08:45:00 Outpatient JODY ALBRECHT [facility] [id number] [facility] 2023-03-16 13:16:32 2023-03-16 13:16:32 Outpatient SFA SFA [id number] Sergio Hayes 2023-03-01 13:36:49 2023-03-01 13:36:49 Outpatient SFA SFA [id number] Sergio Chrales Freddy 2023-01-31 14:05:12 2023-01-31 14:05:12 Outpatient SFA SFA [id number] Sergio Charles Freddy 2022-12-24 00:00:00 2022-12-24 00:00:00 Letter (Out) Nirmal Hancock [facility] 1..840.114 350.1.13.10 4.2.7.2.686 [id number] [facility] 2022-12-20 11:12:06 2022-12-20 11:12:06 Outpatient SFA SFA [id number] Sergio Charles Freddy 2022-12-15 09:50:22 2022-12-15 09:50:22 Outpatient SFA [facility] [id number] Sergio [facility] 2022-12-06 12:01:00 2022-12-06 12:01:00 Outpatient SFA [facility] [id number] Sergio Charles [facility] 2022-12-04 00:00:00 2022-12-04 00:00:00 Orders Only Doctor Unassigned, Gay [facility] 1..840.114 350.1.13.10 4.2.7.2.686 [id number] [facility] 2022-11-30 00:00:00 2022-11-30 00:00:00 OFFICE VISIT ESTAB PT LEVEL 4 [facility] [id number] [facility] 2022-11-30 00:00:00 2022-11-30 00:00:00 SUB ANNUAL [facility] WELLNESS VISIT [facility] [id number] [facility] 2022-11-30 00:00:00 2022-11-30 00:00:00 (TEL) [facility] [id number] [facility] 2022-11-30 00:00:00 2022-11-30 00:00:00 (TEL) [facility] [id number] [facility] 2022-11-11 13:00:00 2022-11-11 14:42:42 Office Visit Jody Albrecht [facility] 2 1.2.840.114 350.1.13.58 9.2.7.2.686 [id number] [facility] 2022-09-15 00:00:00 2022-09-15 00:00:00 Telephone Betito Steele [facility] 1.2.840.114 350.1.13.10 4.2.7.2.686 [id number] [facility] 2022-09-14 11:30:00 2022-09-14 11:30:00 Outpatient LUPE DHALIWAL [facility] [id number] [facility] 2022-08-12 00:00:00 2022-08-12 15:52:50 Outpatient [facility] [id number] [facility] 2022-08-12 13:15:00 2022-08-12 14:24:05 Office Visit Jody Albrecht [facility] 2 1.2.840.114 350.1.13.58 9.2.7.2.686 [id number] [facility] 2022-07-21 00:00:00 2022-07-21 00:00:00 (TEL) [facility] [id number] [facility] 2022-06-23 00:00:00 2022-06-23 00:00:00 Orders Only Doctor Unassigned, Gay [facility] 1.2.840.114 350.1.13.10 4.2.7.2.686 [id number] [facility] 2022-06-22 11:00:00 2022-06-22 11:00:00 Outpatient JODY ALBRECHT [facility] [id number] [facility] 2022-06-17 00:00:00 2022-06-17 00:00:00 Transition of Care Dino Mayer AFSANEH CATES 1.2.840.114 350.1.13.10 4.2.7.2.686 [id number] [facility] 2022-06-13 23:46:00 2022-06-16 15:23:00 Inpatient U TIFFANI DARBYTIFFANI EID [facility] [id number] [facility] 2022-06-13 23:46:00 2022-06-16 15:23:00 Hospital Encounter Tiffani Darby [facility] 1.2.840.114 350.1.13.10 4.2.7.2.686 [id number] [facility] 2022-06-15 12:52:00 2022-06-15 12:52:00 Anesthesia Event Sharif Castañeda 1.2.840.1 [id number] 3.104.2.7 .3.072228 .8 [id number] [facility] 2022-06-15 09:23:00 2022-06-15 09:59:00 Surgery Alexandru Austin [facility] 1.2.840.114 350.1.13.10 4.2.7.2.686 [id number] [facility] 2022-06-14 12:05:59 2022-06-14 12:05:59 Anesthesia Event Kristan Monroe 1.2.840.1 [id number] 3.104.2.7 .3.552640 .8 [id number] [facility] 2022-06-14 00:00:00 2022-06-14 00:00:00 Travel 1.2.840.1 [id number] 3.104.2.7 .3.846425 .8 1.2.840.114 350.1.13.10 4.2.7.3.698 [id number] [facility] 2022-06-02 00:00:00 2022-06-02 00:00:00 (TEL) STLMLC [facility] [id number] [facility] 2022-06-01 00:00:00 2022-06-01 00:00:00 (TEL) STLMLC [facility] [id number] [facility] 2022-05-31 00:00:00 2022-05-31 00:00:00 OFFICE VISIT EST PT LEVEL 3 STL[facility]C [facility] [id number] [facility] 2022-05-25 00:00:00 2022-05-25 00:00:00 (TEL) STL[facility]C [facility] [id number] [facility] 2022-05-20 00:00:00 2022-05-20 00:00:00 OFFICE VISIT ESTAB PT LEVEL 4 STLMLC [facility] [id number] [facility] 2022-04-23 00:00:00 2022-04-23 00:00:00 (TEL) STLMLC [facility] [id number] [facility] 2022-04-16 00:00:00 2022-04-16 00:00:00 (TEL) STL[facility]C [facility] [id number] [facility] 2022-03-30 00:00:00 2022-03-30 00:00:00 (TEL) STLMLC [facility]C [id number] [facility] 2022-03-24 00:00:00 2022-03-24 00:00:00 (HOSP F/U) Hospital Follow Up STLMLC ST[facility] [id number] [facility] 2022-03-14 00:00:00 2022-03-14 00:00:00 (TEL) STLMLC [facility]C [id number] [facility] 2022-03-10 00:00:00 2022-03-10 00:00:00 (TEL) STLMLC STL[facility]C [id number] [facility] 2022-03-09 00:00:00 2022-03-09 00:00:00 (TEL) STLMLC [facility]C [id number] [facility] 2022-02-03 00:00:00 2022-02-03 00:00:00 (TEL) STLMLC ST[facility]C [id number] [facility] 2022-01-08 00:00:00 2022-01-08 00:00:00 (TEL) STLMLC STL[facility]C [id number] [facility] 2022-01-05 00:00:00 2022-01-05 00:00:00 OFFICE VISIT ESTAB PT LEVEL 4 STLMLC [facility]C [id number] [facility] 2021-12-07 00:00:00 2021-12-07 00:00:00 (TEL) STLMLC [facility]C [id number] [facility] 2021-12-02 00:00:00 2021-12-02 00:00:00 OFFICE VISIT ESTAB PT LEVEL 4 STLMLC ST[facility]C [id number] [facility] 2021-10-06 00:00:00 2021-10-06 00:00:00 OFFICE VISIT ESTAB PT LEVEL 4 STLMLC [facility]C [id number] [facility] 2021-09-07 00:00:00 2021-09-07 00:00:00 OFFICE VISIT ESTAB PT LEVEL 4 STLMLC STL[facility]C [id number] [facility] 2021-08-13 00:00:00 2021-08-13 00:00:00 (TEL) STLMLC [facility]C [id number] [facility] 2021-07-31 00:00:00 2021-07-31 00:00:00 (TEL) STLMLC ST[facility] [id number] [facility] 2021-07-30 00:00:00 2021-07-30 00:00:00 OFFICE VISIT ESTAB PT LEVEL 4 STLMLC STL[facility]C [id number] [facility] 2021-07-19 00:00:00 2021-07-19 00:00:00 Refill Nivia Bess [facility] ([facility]) 1.2.840.114 350.1.13.10 4.2.7.2.686 [id number] [facility] 2021-07-06 00:00:00 2021-07-06 00:00:00 OFFICE VISIT ESTAB PT LEVEL 4 STLMLC STL[facility]C [id number] [facility] 2021-07-06 00:00:00 2021-07-06 00:00:00 SUB ANNUAL [facility] WELLNESS VISIT STLMLC ST[facility]C [id number] [facility] 2021-07-03 00:00:00 2021-07-03 00:00:00 (TEL) STLMLC STL[facility]C [id number] [facility] 2021-06-23 00:00:00 2021-06-23 00:00:00 (TEL) STLMLC [facility] [id number] [facility] 2021-06-22 00:00:00 2021-06-22 00:00:00 (TEL) STLMLC ST[facility]C [id number] [facility] 2021-05-28 00:00:00 2021-05-28 00:00:00 (IN/ASP) INJ ASP STLMLC STL[facility]C [id number] [facility] 2021-05-21 00:00:00 2021-05-21 00:00:00 (IN/ASP) INJ ASP STLMLC STL[facility]C [id number] [facility] 2021-05-14 00:00:00 2021-05-14 00:00:00 (IN/ASP) INJ ASP STLMLC STL[facility]C [id number] [facility] 2021-04-28 00:00:00 2021-04-28 00:00:00 (TEL) STLMLC STL[facility]C [id number] [facility] 2021-04-27 00:00:00 2021-04-27 00:00:00 (TEL) STLMLC [facility] [id number] [facility] 2021-04-24 00:00:00 2021-04-24 00:00:00 (TEL) STLMLC [facility] [id number] [facility] 2021-04-20 00:00:00 2021-04-20 00:00:00 OFFICE VISIT NEW PT LEVEL 4 STLMLC [facility] [id number] [facility] 2021-04-07 00:00:00 2021-04-07 00:00:00 (HOSP F/U) Hospital Follow Up STLMLC ST[facility] [id number] [facility] 2021-04-02 00:00:00 2021-04-02 00:00:00 (TEL) STLMLC [facility] [id number] [facility] 2021-03-26 00:00:00 2021-03-26 00:00:00 OFFICE VISIT ESTAB PT LEVEL 4 STLMLC [facility] [id number] [facility] 2021-03-03 00:00:00 2021-03-03 00:00:00 Outpatient STLMLC [facility] [id number] [facility] 2021-02-27 00:00:00 2021-02-27 00:00:00 Outpatient [facility]C [facility] [id number] [facility] 2021-02-25 00:00:00 2021-02-25 00:00:00 Outpatient ST[facility]MLC [facility] [id number] [facility] 2021-01-21 00:00:00 2021-01-21 00:00:00 Outpatient [facility]C [facility] [id number] [facility] 2021-01-19 00:00:00 2021-01-19 00:00:00 Outpatient STLMLC [facility] [id number] [facility] 2021-01-16 11:30:00 2021-01-16 11:30:00 Outpatient R [facility] [id number] [facility] 2021-01-14 08:50:00 2021-01-14 08:55:00 Pre-Anesth esia Evaluation Call, Clc Apac Phone [facility] ([facility]) 1.2.840.114 350.1.13.10 4.2.7.2.686 [id number] [facility] 2021-01-13 07:25:00 2021-01-13 07:30:00 Pre-Anesth esia Evaluation Call, Clc Apac Phone [facility] ([facility] 1.2.840.114 350.1.13.10 4.2.7.2.686 [id number] [facility] 2020-12-24 00:00:00 2020-12-24 00:00:00 Outpatient STLMLC [facility] [id number] [facility] 2020-12-24 00:00:00 2020-12-24 00:00:00 Outpatient STLMLC STLMLC [id number] [facility] 2020-12-24 00:00:00 2020-12-24 00:00:00 Outpatient STLMLC STLMLC [id number] [facility] 2020-12-19 00:00:00 2020-12-19 00:00:00 Outpatient STLMLC STLMLC [id number] [facility] 2020-12-18 00:00:00 2020-12-18 00:00:00 Outpatient STLMLC STLMLC [id number] [facility] 2020-11-25 09:18:00 2020-11-25 13:13:00 Hospital Encounter Nivia Bess [facility] ([facility]) 1.2.840.114 350.1.13.10 4.2.7.2.686 [id number] 2020-11-25 11:00:00 2020-11-25 12:14:00 Surgery [facility] ([facility]) 1.2.840.114 350.1.13.10 4.2.7.2.686 [id number] 2020-11-25 00:00:00 2020-11-25 00:00:00 Prep For Surgery [facility] 1.2.840.114 350.1.13.10 4.2.7.2.686 [id number] 2020-11-25 00:00:00 2020-11-25 00:00:00 Refill [facility] ([facility]) 1.2.840.114 350.1.13.10 4.2.7.2.686 [id number] 2020-11-25 00:00:00 2020-11-25 00:00:00 Refill [facility] ([facility]) 1.2.840.114 350.1.13.10 4.2.7.2.686 [id number] 2020-11-25 00:00:00 2020-11-25 00:00:00 Orders Only Doctor Unassigned, Gay [facility] 1.2.840.114 350.1.13.10 4.2.7.2.686 [id number] 2020-11-24 07:55:00 2020-11-24 08:00:00 Pre-Anesth esia Evaluation Call, Clc ApaiSSimple Phone [facility] ([facility] 1.2.840.114 350.1.13.10 4.2.7.2.686 [id number] [facility] 2020-11-21 12:15:00 2020-11-21 12:20:00 Pre-Anesth esia Evaluation Call, Clc ApaiSSimple Phone [facility] ([facility]) 1.2.840.114 350.1.13.10 4.2.7.2.686 [id number] [facility] 2020-11-19 13:30:00 2020-11-19 13:35:00 Pre-Anesth esia Evaluation Call, Clc Apac Phone [facility] ([facility]) 1.2.840.114 350.1.13.10 4.2.7.2.686 [id number] [facility] 2020-11-14 00:00:00 2020-11-14 00:00:00 Outpatient STLMLC STLMLC [id number] [facility] 2020-11-12 00:00:00 2020-11-12 00:00:00 Outpatient STLMLC STLMLC [id number] [facility] 2020-11-03 00:00:00 2020-11-03 00:00:00 Prep For Surgery [facility] 1.2.840.114 350.1.13.10 4.2.7.2.686 [id number] 2020-10-31 00:00:00 2020-10-31 00:00:00 Telephone [facility] 1.2.840.114 350.1.13.10 4.2.7.2.686 [id number] [facility] [id number] 2020-10-24 00:00:00 2020-10-24 00:00:00 Outpatient STLMLC STLMLC [id number] [facility] 2020-10-15 00:00:00 2020-10-15 00:00:00 Outpatient STLMLC STLMLC [id number] [facility] 2020-07-23 11:51:15 2020-07-23 12:06:15 Laboratory Only Only, Adc Test [facility] 1.2.840.114 350.1.13.10 4.2.7.2.686 [id number] 2020-07-23 11:00:00 2020-07-23 11:00:00 Outpatient R [facility] [id number] [facility] 2020-07-23 10:55:00 2020-07-23 11:00:00 Pre-Anesth esia Evaluation Call, [facility] Apac Phone [facility] ([facility]) 1.2.840.114 350.1.13.10 4.2.7.2.686 [id number] [facility] 2020-07-23 00:00:00 2020-07-23 00:00:00 Orders Only Doctor Unassigned, Gay [facility] 1.2.840.114 350.1.13.10 4.2.7.2.686 [id number] 2020-07-21 08:35:00 2020-07-21 08:40:00 Pre-Anesth esia Evaluation Call, [facility] Apac Phone [facility] ([facility] 1.2.840.114 350.1.13.10 4.2.7.2.686 [id number] [facility] 2020-07-18 07:25:00 2020-07-18 07:30:00 Pre-Anesth esia Evaluation Call, [facility] Apac Phone [facility] ([facility] 1.2.840.114 350.1.13.10 4.2.7.2.686 [id number] [facility] 2020-07-18 00:00:00 2020-07-18 00:00:00 Outpatient STLMLC STLMLC [id number] [facility] 2020-07-17 08:35:00 2020-07-17 08:40:00 Pre-Anesth esia Evaluation Call, [facility] Apac Phone [facility] 1.2.840.114 350.1.13.10 4.2.7.2.686 [id number] [facility] 2020-07-15 13:45:51 2020-07-15 14:15:51 Office Visit Maria AlejandraNivia [facility] 1.2.840.114 350.1.13.10 4.2.7.2.686 [id number] 2020-07-15 13:45:00 2020-07-15 13:45:00 Outpatient R MARIA ALEJANDRANIVIA JIN [facility] [id number] [facility] 2020-06-18 00:00:00 2020-06-18 00:00:00 Outpatient STLMLC STLMLC [id number] [facility] 2020-06-17 08:30:00 2020-06-17 08:30:00 Outpatient JOE HOLLINS [facility] [id number] [facility] 2020-06-09 09:00:00 2020-06-09 09:00:00 Outpatient R [facility] [id number] [facility] 2020-05-15 00:00:00 2020-05-15 00:00:00 Outpatient STLMLC STLMLC [id number] [facility] 2020-05-13 09:00:00 2020-05-13 09:00:00 Outpatient JOE HOLLINS [facility] [id number] [facility] 2020-04-17 00:00:00 2020-04-17 00:00:00 Outpatient STLMLC STLMLC [id number] [facility] 2020-04-11 00:00:00 2020-04-11 00:00:00 Outpatient STLMLC STLMLC [id number] [facility] 2020-04-08 00:00:00 2020-04-08 00:00:00 Outpatient STLMLC STLMLC [id number] [facility] 2020-03-20 00:00:00 2020-03-20 00:00:00 Outpatient STLMLC STLMLC [id number] [facility] 2019-12-19 10:45:2019-12-19 10:45:[address] [facility] [id number] [facility] 2019-12-19 10:00:00 2019-12-19 10:00:[address] [facility] [id number] [facility] 2019-12-03 10:17:00 2019-12-03 10:17:[address] [facility] [id number] [facility] 2019-12-03 09:59:00 2019-12-03 09:59:[address] [facility] [id number] [facility] 2019-11-29 09:45:00 2019-11-29 09:45:[address] [facility] [id number] [facility] 2019-11-13 11:17:00 2019-11-13 11:17:[address] [facility] [id number] [facility] 2019-11-06 15:08:00 2019-11-06 15:08:[address] [facility] [id number] [facility] 2019-11-01 16:03:00 2019-11-01 16:03:[address] [facility] [facility] [id number] [facility] 2019-10-31 09:15:00 2019-10-31 09:15:[address] [facility] [id number] [facility] 2019-10-01 10:00:00 2019-10-01 10:00:[address] [facility] [facility] [id number] [facility] 2019-08-27 14:00:00 2019-08-27 14:00:[address] [facility] [id number] [facility] 2019-07-30 11:00:00 2019-07-30 11:00:00 [facility] [id number] [facility] 2019-07-18 01:45:00 2019-07-18 01:45:00 Outpatient ANETA GHOS[facility] [id number] Ivone ortega [facility] Program Results Test Description Test Time Test Comments Results Result Co mments Source [facility]06* Test Item Value Reference Range Interpretation Comme nts MAGNESIUM (test code = 1700845645) 1.9 mg/dL 1.7-2.4 Lab Interpretation (test cod e = 45444-1) Normal [facility] (NA, K, CL, CO2, GLUCOSE, BUN, CREATININE, CA)2022-06-15 22:23:06* Test Item Value Reference Range Interpretation Comme nts NA (test code = 0901656088) 138 mmol/L 135-145 K (test code = 4872310082) 4.0 mmol/L 3.5-5.0 CL (test code = 2148217606) 106 mmol/L 98-108 CO2 TOTAL (test code = 7109633389) 27 mmol/L 23-31 AGAP (test code = 5216553161) 2-16 BUN (test code = 4566206962) 9 mg/dL 7-23 GLUCOSE (test code = 1339403601) 90 mg/dL 70-110 CREATININE (test code = 3083850614) 0.83 mg/dL 0.50-1.04 CALCIUM (test code = 1698944486) 9.2 mg/dL 8.6-10.6 eGFR (test code = 1517827023) mL/min/1.73m2 PEBBLES (test code = PEBBLES) Association [...] or urine or abnormalities in imaging tests). [facility]-03 22:23:06* Test Item Value Reference Range Interpretation Comme nts MAGNESIUM (test code = 6007676143) 1.9 mg/dL 1.7-2.4 Lab Interpretation (test cod e = 97943-9) Normal [facility] WITH [id number] 22:16:47* Test Item Value Reference Range Interpretation Comme nts WBC (test code = 6690-2) See_Comment [Automated [employer]] The system which generated this result transmitted reference range: 4.30 - 11.10 10*3/?L. The reference range was not used to interpret this result as normal/abnormal. RBC (test code = 789-8) See_Comment L [Automated [employer]] The system which generated this result transmitted reference range: 3.93 - 5.25 10*6/?L. The reference range was not used to interpret this result as normal/abnormal. HGB (test code = 718-7) 9.3 g/dL 11.6-15.0 L HCT (test code = 4544-3) 28.2 % 35.7-45.2 L MCV (test code = 787-2) 94.9 fL 80.6-95.5 MCH (test code = 785-6) 31.3 pg 25.9-32.8 MCHC (test code = 786-4) 33.0 g/dL 31.6-35.1 RDW-SD (test code = 61908-8) 47.9 fL 39.0-49.9 RDW-CV (test code = 788-0) 13.8 % 12.0-15.5 PLT (test code = 777-3) See_Comment H [Automated messa ge] The system which generated this result transmitted reference range: 166 - 358 10*3/?L. The reference range was not used to interpret this result as normal/abnormal. MPV (test code = 62919-1) 9.6 fL 9.5-12.9 NRBC/100 WBC (test code = 3518098239) See_Comment [Automated [employer] ssage] The system which generated this result transmitted reference range: 0.0 - 10.0 /100 WBCs. The reference range was not used to interpret this result as normal/abnormal. NRBC x10^3 (test code = 8856969135) See_Comment [Automated messa ge] The system which generated this result transmitted reference range: 10*3/?L. The reference range was not used to interpret this result as normal/abnormal. GRAN MAT (NEUT) % (test code = 770-8) 71.6 % IMM GRAN % (test code = 9807384072) 0.90 % LYMPH % (test code = 736-9) 14.8 % MONO % (test code = 5905-5) 9.9 % EOS % (test code = 713-8) 2.3 % BASO % (test code = 706-2) 0.5 % GRAN MAT x10^3(ANC) (test code = 4957710117) 6.19 10*3/uL 1.88-7.09 IMM GRAN x10^3 (test code = 6435971198) 0.08 10*3/uL 0.00-0.06 H LYMPH x10^3 (test code = 731-0) 1.28 10*3/uL 1.32-3.29 L MONO x10^3 (test code = 742-7) 0.86 10*3/uL 0.33-0.92 EOS x10^3 (test code = 711-2) 0.20 10*3/uL 0.03-0.39 BASO x10^3 (test code = 704-7) 0.04 10*3/uL 0.01-0.07 Lab Interpretation (test code = 98571-2) Abnormal [facility] WITH [id number] 22:16:47* Test Item Value Reference Range Interpretation Comme nts WBC (test code = 6690-2) See_Comment [Automated messa ge] The system which generated this result transmitted reference range: 4.30 - 11.10 10*3/?L. The reference range was not used to interpret this result as normal/abnormal. RBC (test code = 789-8) See_Comment L [Automated messa ge] The system which generated this result transmitted reference range: 3.93 - 5.25 10*6/?L. The reference range was not used to interpret this result as normal/abnormal. HGB (test code = 718-7) 9.3 g/dL 11.6-15.0 L HCT (test code = 4544-3) 28.2 % 35.7-45.2 L MCV (test code = 787-2) 94.9 fL 80.6-95.5 MCH (test code = 785-6) 31.3 pg 25.9-32.8 MCHC (test code = 786-4) 33.0 g/dL 31.6-35.1 RDW-SD (test code = 90420-1) 47.9 fL 39.0-49.9 RDW-CV (test code = 788-0) 13.8 % 12.0-15.5 PLT (test code = 777-3) See_Comment H [Automated messa ge] The system which generated this result transmitted reference range: 166 - 358 10*3/?L. The reference range was not used to interpret this result as normal/abnormal. MPV (test code = 22918-4) 9.6 fL 9.5-12.9 NRBC/100 WBC (test code = 1533897770) See_Comment [Automated me ssage] The system which generated this result transmitted reference range: 0.0 - 10.0 /100 WBCs. The reference range was not used to interpret this result as normal/abnormal. NRBC x10^3 (test code = 5728223889) See_Comment [Automated messa ge] The system which generated this result transmitted reference range: 10*3/?L. The reference range was not used to interpret this result as normal/abnormal. GRAN MAT (NEUT) % (test code = 770-8) 71.6 % IMM GRAN % (test code = 3677681262) 0.90 % LYMPH % (test code = 736-9) 14.8 % MONO % (test code = 5905-5) 9.9 % EOS % (test code = 713-8) 2.3 % BASO % (test code = 706-2) 0.5 % GRAN MAT x10^3(ANC) (test code = 9098208291) 6.19 10*3/uL 1.88-7.09 IMM GRAN x10^3 (test code = 8803538635) 0.08 10*3/uL 0.00-0.06 H LYMPH x10^3 (test code = 731-0) 1.28 10*3/uL 1.32-3.29 L MONO x10^3 (test code = 742-7) 0.86 10*3/uL 0.33-0.92 EOS x10^3 (test code = 711-2) 0.20 10*3/uL 0.03-0.39 BASO x10^3 (test code = 704-7) 0.04 10*3/uL 0.01-0.07 Lab Interpretation (test code = 58970-7) Abnormal [facility]"
[2023-08-29 12:04] VITALS: BP 128/78; TEMP 97; O2SAT 98
--- NOTE | 2023-08-30 14:10 | EKG ---
Test Date: 2023-08-29 Test Time: 09:44:20 Field Nurse: SEAN MEASUREMENT RESULTS: Intervals: Rate: 82 TX: 160 QRSD: 84 QT: 374 QTc: 436 [place]: P: 61 TX: 160 QRS: 56 T: 38 INTERPRETIVE STATEMENTS: Normal sinus rhythm Normal ECG Compared to ECG 10/07/2022 23:08:06 No significant changes Electronically Signed On 08-30-23 14:06:02 CDT by Eddie Teran
== END ==
LOC: ER 10:39
DX: I47.10 Supraventricular tachycardia, unspecified (principal); F41.9 Anxiety disorder, unspecified; Z88.6 Allergy status to analgesic agent; Z88.8 Allergy status to other drugs, medicaments and biological substances
CPT/HCPCS: 93005; 99284

== ENCOUNTER 2023-10-07 06:24 | Emergency (ER) | payer OTHER ==
--- OUTSIDE RECORDS SUMMARY | 2023-10-07 06:33 | XMS REPORT | Continuity of Care Document ---
Author Name Unknown Address [address] [facility] [address] [place] [address] [facility] thconnect Address [address] [facility] [place] [address] Care Team Providers Care Customer Management Specialist Name Role Phone Nazario DUARTE, Renetta Primary Care Physician [phone] Nirmal Hancock Attending Clinician Unavailable NIVIA BESS Attending Clinician Unavailable JODY ALBRECHT Attending Clinician Unavailable Nirmal Hancock Attending Clinician [phone] Doctor Unassigned, Alcova Attending Clinician U patricia Steele MD, Betito Arita Attending Clinician + [phone] LUPE CAMPOS Attending Clinician Unavailab Khurram MORRIS, Dino Mcconnell Attending Clinician Unavail able TIFFANI DARBY Attending Clinician Unavailable TIFFANI DARBY Attending Clinician Unavailable Sharif Castañeda CRNA Attending Clinician [phone] Alexandru Austin MD Attending Clinician [phone] Kristan Monroe CRNA Attending Clinician [phone] Nivia Bess MD Attending Clinician [phone] Call, Clc Apac Phone Attending Clinician Unavail able Only, Adc Test Attending Clinician Unavailable JOE MORALES Attending Clinician Unavailabl e ROGELIO Attending Clinician Unavailable SHERWIN NASH Attending Clinician Unavail able SHERWIN NASH Attending Clinician Unavail able NIVIA BESS Admitting Clinician Unavailable TIFFANI DARBY Admitting Clinician Unavailable Nivia Bess MD Admitting Clinician [phone] ROGELIO Admitting Clinician Unavailable Payers Payer Name Policy Type Policy Number Effective Date Expirati on Date Source [facility] COMMUNITY PLAN STAR [id number] 2012 00:00:00 2022 00:00:00 [facility] DUAL COMP HMO D SNP [id number] 2020 00:00:00 [place] [id number] 2020 00:00:00 [facility] [place] STAR PLUS [id number] 2013 00:00:00 [facility] WELLMED [id number] 2020 00:00:00 2024 00:00:00 [facility] Dual Complete Choice (Regional O D-SNP) 53 [id number] 2019 00:00:00 [facility] [id number] 2012 00:00:00 [facility] [id number] 2012 00:00:00 [facility] [id number] 2012 00:00:00 [facility] [place]: [employer] [id number] 2006 00:00:00 [facility] - COMMUNITY PLAN - DUAL COMPLETE - SNP PLAN (MEDICARE REPLACEMENT HMO) [id number] [facility] [place] STAR PLUS (MEDICAID HMO) [id number] 2018 00:00:00 Problems Condition Name Condition Details Condition Category Status Onset Date Resolution Date Last Treatment Date Treating Clinician Comments Source GI bleed GI bleed Disease Active 06-14 00:00: 00 [facility] Peptic ulcer disease Peptic ulcer disease Disease Active 2021-0 6-15 00:00: 00 Overview: Formattin g of this note might be different from the original. Added automatic ally from request for surgery [id number] [facility] Multiple gastric ulcers Multiple gastric ulcers Disease Active 07-15 00:00: 00 Overview: Formattin g of this note might be different from the original. Added automatic ally from request for surgery [id number] [facility] Hiatal hernia Hiatal hernia Disease Active 2019-06 00:00: 00 [facility] Post-op pain Post-op pain Disease Active 2015-06 00:00: 00 [facility] Chronic neck pain Chronic neck pain Disease Active 06-23 00:00: 00 [facility] Anxiety disorder Anxiety disorder Disease Active 06-23 00:00: 00 [facility] [id number] DDD (degenerat ceferino disc disease), cervical Problem [facility] [id number] Attention deficit hyperactiv ity disorder (ADHD), combined type Problem [facility] [id number] Panic disorder [episodic paroxysmal anxiety] Problem [facility] [id number] GERD without esophagiti s Problem [facility] [id number] Atheroscle rosis of abdominal aorta Problem [facility] [id number] +5th digit eff 03/13/20*CK D (chronic kidney disease) stage 3, GFR 30-59 ml/min Problem [facility] [id number] Generalize d anxiety disorder Problem [facility] [id number] PTSD (post-trau matic stress disorder) Problem [facility] [id number] 102 Bilateral tinnitus Problem [facility] [id number] Current moderate episode of major depressive disorder without prior episode Problem [facility] [id number] Osteoporos is, unspecifie d osteoporos is type, unspecifie d pathologic al fracture presence Problem [facility] 28553332 Irritable bowel syndrome with both constipati on and diarrhea Problem [facility] 24445103 Milk-alkal i syndrome Problem [facility] 95288745 Allergic rhinitis, unspecifie d seasonalit y, unspecifie d trigger Problem [facility] [id number] Mixed hyperlipid emia Problem [facility] [id number] Stage 3a chronic kidney disease Problem [facility] 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 Problem [facility] [id number] Osteoarthr itis of multiple joints, unspecifie d osteoarthr itis type Problem [facility] [id number] History of uterine cancer Problem [facility] [id number] Chronic pain syndrome Problem [facility] Chronic vascular insufficie ncy of intestine Superior mesenteric artery atheroscle rosis Problem [facility] [id number] Elevated liver enzymes Problem [facility] [id number] Urinary incontinen ce, unspecifie d type Problem [facility] Anemia of chronic renal failure Anemia associated with chronic renal failure Problem [facility] 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 Problem [facility] Thrombocyt osis Thrombocyt osis Problem [facility] [id number] Essential thrombocyt osis Problem [facility] Chronic fatigue syndrome Chronic fatigue Problem [facility] Iron deficiency anemia Other iron deficiency anemia Problem [facility] [id number] Primary osteoarthr itis of left knee Problem [facility] [id number] 87619 Primary osteoarthr itis of right knee Problem [facility] Anemia in chronic kidney disease Anemia in chronic kidney disease Problem [facility] Hypercalce shahnaz Hypercalce shahnaz Problem [facility] [id number] Shoulder arthritis Problem [facility] Anemia due to blood loss Anemia due to blood loss Problem [facility] 0125053 SVT (supravent ricular tachycardi a) Problem [facility] Supraventr icular dysrhythmi a Supraventr icular dysrhythmi a Disease Active [facility] Chronic low back pain Chronic low back pain Disease Active [facility] Allergies, Adverse Reactions, Alerts Allergy Name Allergy Type Status Severity Reaction(s) Onset Date Inactive Date Treating Clinician Comments Source NSAIDS (Non-Stepan roidal Anti-Inf lammator y Drug) Propensi ty to adverse reaction to drug Active 0 4-17 00:00: 00 Sergio Hayes Pregabal in Allergy to substanc e Active Swelling 2023-0 4-16 00:00: 00 [facility] Risperid one Allergy to substanc e Active Swelling 0 4-16 00:00: 00 [facility] Haloperi dol Allergy to substanc e Active Swelling 0 4-16 00:00: 00 [facility] Meloxica m Allergy to substanc e Active 0 4-16 00:00: 00 Other Reaction( s): seizures [facility] Nalbuphi ne Allergy to substanc e Active Swelling 0 4-16 00:00: 00 [facility] Haldol - Injectio n Propensi ty to adverse reaction to drug Active 0 3-15 00:00: 00 Sergio Hayes Lyrica Propensi ty to adverse reaction to drug Inactiv e 2020-0 5-30 00:00: 00 Sergio Hayes Haloperi dol Lactate Propensi ty to adverse reaction s Active Anaphylaxis 2020-0 2-04 00:00: 00 [facility] Etodolac Propensi ty to adverse reaction s Active Anaphylaxis 2020-0 2-04 00:00: 00 [facility] HALOPERI DOL LACTATE DRUG INGREDI Active Anaphylaxis 2020-0 2-04 00:00: 00 [facility] ETODOLAC DRUG INGREDI Active Anaphylaxis 2020-0 2-04 00:00: 00 [facility] Pregabal in Propensi ty to adverse reaction s Active Hallucinatio ns 2014-06- 00:00: 00 [facility] PREGABAL IN DRUG INGREDI Active Hallucinates 2014-06- 00:00: 00 [facility] Nsaids Propensi ty to adverse reaction s Active Anaphylaxis 2014-06 00:00: 00 [facility] Meloxica m Propensi ty to adverse reaction s Active Other - See comments 2014-06 00:00: 00 Seizures [facility] Nsaids (Non-Stepan roidal Anti-Inf lammator y Drug) Propensi ty to adverse reaction s Active Anaphylaxis 2014-06 00:00: 00 [facility] Nalbuphi ne Hcl Propensi ty to adverse reaction s Active Anaphylaxis 2014-06 00:00: 00 [facility] Vistaril Im (Hcl Salt) Propensi ty to adverse reaction s Active Extra pyramidal effects 2014-06 00:00: 00 [facility] Nsaids (Non-Stepan roidal Anti-Inf lammator y Drug) Propensi ty to adverse reaction s Active Anaphylaxis 2014-06 00:00: 00 [facility] MELOXICA M DRUG INGREDI Active Other-Cmnt 2014-06 00:00: 00 [facility] NSAIDS (NON-STEPAN ROIDAL ANTI-INF LAMMATOR Y DRUG) Drug Class Active Anaphylaxis 2014-06 00:00: 00 [facility] NALBUPHI NE HCL DRUG INGREDI Active Anaphylaxis 2014-06 00:00: 00 [facility] VISTARIL IM (HCL SALT) DRUG Active EP Effects 2014-06 00:00: 00 [facility] 28419 Drug allergy Active throat closes [facility] hydroxyz ine hydroxyz ine Active seizure [facility] 53622 Drug allergy Active throat closes [facility] pregabal in pregabal in Active throat closes [facility] etodolac etodolac Active throat closes [facility] ibuprofe n ibuprofe n Active throat closes [facility] meloxica m meloxica m Active seizure [facility] Family History Family Member Diagnosis Comments Start Date Stop Date Sourc e Natural father [facility] Natural [facility] Social History Social Habit Start Date Stop Date Quantity Comments Source Sexual [facility] History of tobacco use Passive smoker [facility] History SDOH Social Connections Get Together [facility] History SDOH Social Connections [facility] SDOH Social Connections Membership [facility] History SDOH Social Connections Meetings [facility] Gender identity [facility] Alcoholic beverage intake 2023-09-27 00:00:00 2023-09-27 00:00:00 Lifetime non-drinker (finding) [facility] History of Social function 2023-09-27 00:00:00 2023-09-27 00:00:00 [facility] Exposure to SARS-CoV-2 (event) 2022-11-01 00:00:00 2022-11-11 12:54:00 Not sure [facility] Alcohol intake 2022-11-11 00:00:00 2022-11-11 00:00:00 Lifetime non-drinker (finding) [facility] Tobacco use and exposure 2022-08-12 00:00:00 2022-08-12 00:00:00 Smokeless tobacco non-user [facility] Tobacco Comment 2022-06-15 00:00:00 2022-06-15 00:00:00 stopped 02/22/2013 [facility] History SDOH Alcohol Frequency 2022-06-14 00:00:00 2022-06-14 00:00:00 1 [facility] History SDOH Alcohol Std Drinks 2022-06-14 00:00:00 2022-06-14 00:00:00 0 [facility] History SDOH Alcohol Binge 2022-06-14 00:00:00 2022-06-14 00:00:00 1 [facility] History SDOH Social Connections Phone 2022-06-14 00:00:00 2022-06-14 00:00:00 3 [facility] History SDOH Social Connections Living 2022-06-14 00:00:00 2022-06-14 00:00:00 5 [facility] History SDOH Physical Activity DPW 2022-06-14 00:00:00 2022-06-14 00:00:00 0 [facility] History SDOH Physical Activity MPS 2022-06-14 00:00:00 2022-06-14 00:00:00 0 [facility] History SDOH Financial 2022-06-14 00:00:00 2022-06-14 00:00:00 5 [facility] History SDOH Food Worry 2022-06-14 00:00:00 2022-06-14 00:00:00 1 [facility] History SDOH Food Scarcity 2022-06-14 00:00:00 2022-06-14 00:00:00 1 [facility] History SDOH Transport Med 2022-06-14 00:00:00 2022-06-14 00:00:00 2 [facility] History SDOH Transport Non-Med 2022-06-14 00:00:00 2022-06-14 00:00:00 2 [facility] Sex assigned at 1960 00:00:00 1960 00:00:00 [facility] Smoking Status Start Date Stop Date Source Never smoked tobacco [facility] Ex-smoker 2022-06-15 00:00:00 2022-06-15 00:00:00 [facility] Medications Ordered Medication Name Filled Medication Name Start Date Stop Date Current Medication? Ordering Clinician Indication Dosage Frequency Signature (SIG) Comments Components Source gabapentin 100 mg capsule - 00:00: 00 Yes 1mg Sergio Hayes TAKE 1 TABLET BY MOUTH TWICE DAILY - 00:00: 00 Yes Sergio Haeys METHYLPHENI DATE HYDROCHLORI DE ER 15 MG CP24 - 00:00: 00 Yes Sergio Hayes FLUOXETINE HYDROCHLORI DE 40 MG - 00:00: 00 Yes Sergio Hayes OLANZAPINE 5MG TABLETS - 00:00: 00 Yes Sergio Hayes METHYLPREDN ISOLONE DOSE PACK 4 MG TBPK 2-20 00:00: 00 Yes Sergio Hayes methylPREDN ISolone (Medrol) 4 MG tablet 2-20 00:00: 00 08-03 05:59 :00 Yes [id number] 4mg Take 1 tablet (4 mg total) by mouth 1 (one) time for 1 dose. Take as instructed by packaging [facility] TAKE 1 CAPSULE EVERY 8 HOURS. 07-26 00:00: 00 09-27 00:00 :00 No 500 Sergio Hayes FAMOTIDINE 40 MG TABS 2- 00:00: 00 Yes Sergio Hayes TAKE 1 TABLET BY MOUTH TWICE DAILY WITH MEALS 07-05 00:00: 00 Yes Sergio Hayes DEXLANSOPRA ZOLE 60 MG CPDR - 00:00: 00 Yes Sergio Hayes ONDANSETRON HYDROCHLORI DE 4 MG TABS 2022-06 00:00: 00 Yes Sergio Hayes HYDROCODONE BITARTRATE/ ACETAMINOPH E N 5-325 MG TABS 2022-06 00:00: 00 Yes Sergio Hayes TAKE 1 TABLET EVERY MORNING NEEDED. 2022-06 00:00: 00 Yes 10 Sergio Hayes DOXYCYCLINE MONOHYDRATE 100MG 2022-06 00:00: 00 Yes Sergio Hayes APPLY TO ENTIRETY OF SHOULDER TWICE DAILY FOR 3 DAYS PRIOR TO SURGERY AND THE MORNING OF SURGERY. YOU DO NOT NEED TO APPLY TO THE ARMPIT 2022-06 00:00: 00 Yes Sergio Hayes METHYLPHENI DATE 15MG ER CAPSULES 2022-06 00:00: 00 Yes Sergio Hayes FLUOXETINE 40MG CAPSULES 2022-06 00:00: 00 Yes 40 Sergio Hayes METHOCARBAM OL 500 MG TABS 2022-06 00:00: 00 Yes Sergio Hayes ALPRAZOLAM 0.5 MG TABS 2022-06 00:00: 00 Yes Sergio Hayes TAKE 1 TABLET BY MOUTH TWICE DAILY NEEDED 2022-06 00:00: 00 Yes Sergio Hayes TAKE 1 TABLET BY MOUTH TWICE DAILY WITH MEALS 2022-06 00:00: 00 Yes Sergio Hayes FAMOTIDINE 40 MG TABS 2022-06 00:00: 00 Yes Sergio Hayes IMIQUIMOD 5% CREAM SINGLE USE PKTS - 00:00: 00 Yes Sergio Hayes DEXMETHYLPH ENIDATE HYDROCHLORI DE ER 15 MG CP24 9-20 00:00: 00 Yes Sergio Hayes 1 TAB PO PRN MUSCLE PAIN HS 9-19 00:00: 00 09-27 00:00 :00 No 500 Sergio Hayes TAKE 1 TABLET BY MOUTH DAILY 9-13 00:00: 00 Yes Sergio Hayes ALPRAZOLAM 0.5MG TABLETS - 00:00: 00 Yes Sergio Hayes INHALE 1 TO 2 PUFFS BY MOUTH EVERY 4 TO 6 HOURS NEEDED DIRECTED - 00:00: 00 Yes Sergio Hayes FLUOXETINE HYDROCHLORI DE 40 MG - 00:00: 00 Yes Sergio Hayes INHALE 2 PUFFS TWICE DAILY. RINSE MOUTH AFTER USE. 01-31 00:00: 00 09-27 00:00 :00 No [id number] Sergio Hayes TAKE 1 TABLET EVERY MORNING NEEDED. 01-31 00:00: 00 09-27 00:00 :00 No 10 Sergio Hayes INHALE 1-2 PUFFS EVERY 4-6 HOURS NEEDED AND DIRECTED. 01-31 00:00: 00 09-27 00:00 :00 No [id number] Sergio Hayes TAKE 1 TABLET BY MOUTH TWICE DAILY NEEDED 01-25 00:00: 00 Yes Sergio Hayes FAMOTIDINE 40 MG TABS 8- 00:00: 00 Yes Sergio Hayes DEXMETHYLPH ENIDATE HYDROCHLORI DE ER 15 MG CP24 7-20 00:00: 00 Yes Sergio Hayes 1 TABLET PO BID 7-10 00:00: 00 09-27 00:00 :00 No 500 Sergio Hayes INHALE 2 PUFFS BY MOUTH TWICE DAILY 12-07 00:00: 00 Yes Sergio Hayes BREZTRI AEROSPHERE 160-9-4.8 MCG/ACT AERO - 00:00: 00 Yes Sergio Hayes 1 TABLET PO BID 6- 00:00: 00 09-27 00:00 :00 No 500 Sergio Hayes DEXMETHYLPH ENIDATE HYDROCHLORI DE ER 15 MG CP24 0 6-22 00:00: 00 Yes Sergio Hayes Kenalog (Triamcinol one) Kenalog (Triamcinol one) 0 6-20 00:00: 00 No 40mg [facility] Kenalog (Triamcinol one) Kenalog (Triamcinol one) 0 6-20 00:00: 00 No 40mg [facility] Kenalog (Triamcinol one) Kenalog (Triamcinol one) 0 -20 00:00: 00 No 40mg [facility] Kenalog (Triamcinol one) Kenalog (Triamcinol one) 0 -20 00:00: 00 No 40mg [facility] Kenalog (Triamcinol one) Kenalog (Triamcinol one) 0 -20 00:00: 00 No 40mg [facility] Kenalog (Triamcinol one) Kenalog (Triamcinol one) 0 -20 00:00: 00 No 40mg [facility] TAKE 1 TABLET BY MOUTH DAILY 0 -12 00:00: 00 Yes Sergio Hayes DEXLANSOPRA ZOLE 60 MG CPDR 0 6- 00:00: 00 Yes Sergio Hayes DEXMETHYLPH ENIDATE 15MG ER CAPSULES 0 -23 00:00: 00 Yes Sergio Hayes OLANZAPINE 5 MG TABS 0 -23 00:00: 00 Yes Sergio Hayes ALPRAZOLAM 0.5 MG TABS 0 -23 00:00: 00 Yes Sergio Hayes FLUOXETINE HYDROCHLORI DE 40 MG 0 -23 00:00: 00 Yes Sergio Hayes DICYCLOMINE HYDROCHLORI DE 20 MG TABS 0 -15 00:00: 00 Yes Sergio Hayes NITROFURANT OIN MONOHYDRATE 100 MG 2022-0 5-04 00:00: 00 Yes Sergio Hayes TAKE 1 TABLET BY MOUTH DAILY 0 -02 00:00: 00 Yes Sergio Hayes TAKE 1 TABLET BY MOUTH EVERY 4-6 HOURS NEEDED FOR PAIN -27 00:00: 00 Yes Sergio Hayes TAKE 1 TABLET BY MOUTH EVERY 12 HOURS X 7 DAYS -27 00:00: 00 Yes Sergio Hayes DEXMETHYLPH ENIDATE HYDROCHLORI DE ER 15 MG CP24 4-24 00:00: 00 Yes Sergio Hayes FAMOTIDINE 40 MG TABS 3-30 00:00: 00 Yes Sergio Hayes SUCRALFATE 1 GM TABS -27 00:00: 00 Yes Sergio Hayes metoprolol tartrate (Lopressor) 25 MG tablet - 13:32: 19 Yes 50mg Take 50 mg by mouth. [facility] dexlansopra zole (Dexilant) [address] capsule 2-26 00:00: 00 Yes [facility] dexmethylph enidate XR (Focalin XR) 15 MG 24 hr capsule 2-24 00:00: 00 Yes [facility] ALPRAZOLAM 0.5MG TABLETS 2-22 00:00: 00 Yes Sergio Hayes DEXMETHYLPH ENIDATE 15MG ER CAPSULES 2-22 00:00: 00 Yes Sergio Hayes FLUOXETINE 40MG CAPSULES 2-22 00:00: 00 Yes Sergio Hayes OLANZAPINE 5 MG TABS 2-22 00:00: 00 Yes Sergio Hayes ONDANSETRON HYDROCHLORI DE 4 MG TABS 1-31 00:00: 00 Yes Sergio Hayes TAKE 1 CAPSULE BY MOUTH EVERY 12 HOURS UNTIL ALL TAKEN. 1-31 00:00: 00 Yes Sergio Hayes FAMOTIDINE 40 MG TABS 1-23 00:00: 00 Yes Sergio Hayes ATORVASTATI N CALCIUM 20 MG TABS 1-17 00:00: 00 Yes Sergio Hayes pantoprazol e (PROTONIX) EC tablet 40 mg 1-05 02:00: 00 Yes 40mg 40 mg, Oral, BID, First dose on Tue06/16/22 at 2000, Until Discontinu ed, Routine [facility] metoprolol tartrate (LOPRESSOR) 25 mg tablet 06-16 15:23: 23 Yes 50mg Take 50 mg by mouth in the morning and 50 mg in the evening. [facility] dicyclomine 20 mg tablet 06-16 15:23: 23 Yes 20mg Take 20 mg by mouth in the morning and 20 mg in the evening. [facility] FLUoxetine 40 mg capsule 06-16 15:23: 23 Yes 40mg Take 40 mg by mouth in the morning and 40 mg in the evening. [facility] OLANZapine 2.5 mg tablet 06-16 15:23: 23 Yes 1mg Take 1 mg by mouth in the morning and 1 mg in the evening. [facility] ALPRAZolam (XANAX) 1 mg tablet 06-16 15:23: 23 Yes 1mg Take 1 mg by mouth in the morning and 1 mg in the evening. [facility] pantoprazol e (PROTONIX) 40 mg EC tablet 06-16 11:30: 43 06-16 00:00 :00 No 40mg Take 40 mg by mouth in the morning and 40 mg in the evening. [facility] metoprolol tartrate (LOPRESSOR) 25 mg tablet 06-16 11:30: 39 Yes 50mg Take 50 mg by mouth in the morning and 50 mg in the evening. [facility] dicyclomine 20 mg tablet 06-16 11:30: 39 Yes 20mg Take 20 mg by mouth in the morning and 20 mg in the evening. [facility] FLUoxetine 40 mg capsule 06-16 11:30: 39 Yes 40mg Take 40 mg by mouth in the morning and 40 mg in the evening. [facility] OLANZapine 2.5 mg tablet 06-16 11:30: 39 Yes 1mg Take 1 mg by mouth in the morning and 1 mg in the evening. [facility] ALPRAZolam (XANAX) 1 mg tablet 06-16 11:30: 39 Yes 1mg Take 1 mg by mouth in the morning and 1 mg in the evening. [facility] pantoprazol e (ProtoNix) 40 MG EC tablet 06-16 00:00: 00 Yes 40mg Q.5D Take 40 mg by mouth 2 (two) times a day, in the morning and at bedtime. [facility] dexmethylph enidate 15 mg 24 hr capsule 06-16 00:00: 00 Yes 15mg Take 1 capsule by mouth in the morning. [facility] TAKE 1 TABLET BY MOUTH IN THE MORNING AND IN THE EVENING 06-16 00:00: 00 Yes Sergio Charles Freddy lactated ringers IV infusion 500 mL 06-15 17:15: 00 06-15 17:45 :48 No 500mL at 100 mL/hr, 500 mL, Intravenou s, ONCE, 1 dose, On Tue06/15/22 at 1115, Routine [facility] dicyclomine (BENTYL) tablet 20 mg 06-15 15:00: 00 Yes 20mg 20 mg, Oral, BID, First dose on Tue06/15/22 at 0900, Until Discontinu ed, Routine [facility] pantoprazol e (PROTONIX) injection 40 mg 06-15 02:00: 00 06-16 20:37 :34 No 40mg 40 mg, Slow IV Push, Q12H, First dose on Tue06/14/22 at 2000, Until Discontinu ed [facility] alum-mag hydroxide-s imeth (MAALOX PLUS / MAG-AL PLUS) 200-200-20 mg/5 mL suspension 30 mL 06-14 21:45: 09 Yes 30mL 30 mL, Oral, Q6HPRN, Starting on Tue06/14/22 at 1545, Until Discontinu ed, Routine, Indigestio n [facility] NaCl 0.9% (NS) injection 10 mL 06-14 21:43: 50 Yes 10mL 10 mL, Slow IV Push, PRN, Starting on Tue06/14/22 at 1543, Until Discontinu ed, Routine, line maintenanc e [facility] lidocaine 1% (PF) (XYLOCAINE) injection 5 mL 06-14 21:43: 49 Yes 5mL 5 mL, Subcutaneo us, PRN, Starting on Tue06/14/22 at 1543, Until Discontinu ed, Routine, Local anesthesia [facility] lactated ringers IV infusion 500 mL 06-14 18:45: 00 06-14 17:57 :02 No 500mL at 999 mL/hr, 500 mL, Intravenou s, ONCE, 1 dose, On Tue06/14/22 at 1245, Routine [facility] metoprolol (LOPRESSOR) injection 5 mg 06-14 18:30: 00 06-14 17:36 :00 No 5mg 5 mg, Intravenou s, ONCE, 1 dose, On Tue06/14/22 at 1230, [facility] 5 mg 06-14 18:00: 00 06-14 17:26 :00 No 5mg 5 mg, Intravenou s, ONCE, 1 dose, On Tue06/14/22 at 1200, Routine [facility] OLANZapine (ZyPREXA) tablet 1.25 mg 06-14 14:00: 00 Yes 1.25mg 1.25 mg, Oral, BID, First dose on Tue06/14/22 at 0800, Until Discontinu ed, Routine [facility] metoprolol tartrate (LOPRESSOR) tablet 50 mg 06-14 14:00: 00 Yes 50mg 50 mg, Oral, BID, First dose on Tue06/14/22 at 0800, Until Discontinu ed, Routine [facility] ALPRAZolam (XANAX) tablet 1 mg 06-14 14:00: 00 Yes 1mg 1 mg, Oral, BID, First dose on Tue06/14/22 at 0800, Until Discontinu ed, [facility] sucrose (VENOFER) 200 mg in NaCl 0.9% (NS) 100 mL infusion 06-14 09:30: 00 06-14 14:12 :00 No 200mg 200 mg, IV Infusion, ONCE, Administer over 2.5 Hours, On Tue06/14/22 at 0330, For 1 dose [facility] KCL (KLOR-CON M20) tablet 20 mEq 06-14 09:00: 00 06-14 08:45 :00 No 20meq 20 mEq, Oral, ONCE, 1 dose, On Tue06/14/22 at 0300, Routine [facility] magnesium sulfate in water 2 gram/50 mL (4 %) infusion 2 g 06-14 09:00: 00 06-14 09:52 :00 No 2g 2 g, IV Piggyback, Administer over 60 Minutes, ONCE, 1 dose, On Tue06/14/22 at 0300, Routine [facility] NaCl 0.9% (NS) bolus infusion 2,000 mL 06-14 07:30: 00 06-14 08:43 :30 No 2000mL at 999 mL/hr, 2,000 mL, IV Piggyback, ONCE, 1 dose, On Tue06/14/22 at 0130, STAT [facility] guaiFENesin 100 mg/5 mL solution 200 mg 06-14 07:23: 38 Yes 200mg 200 mg, Oral, Q4HPRN, Starting on Tue06/14/22 at 0123, Until Discontinu ed, Routine, Cough [facility] pantoprazol e (PROTONIX) injection 40 mg 06-14 06:15: 00 06-14 06:38 :00 No 40mg 40 mg, Slow IV Push, Q12H, First dose on Tue06/14/22 at 0015, Until Discontinu ed [facility] acetaminoph en (TYLENOL) tablet 650 mg 06-14 06:14: 56 Yes 650mg 650 mg, Oral, Q6HPRN, Starting on Tue06/14/22 at 0014, Until Discontinu ed, Routine, Pain (scale 1-3) [facility] metoprolol tartrate (LOPRESSOR) 25 mg tablet 06-14 00:44: 38 Yes 50mg Take 50 mg by mouth in the morning and 50 mg in the evening. [facility] dicyclomine 20 mg tablet 06-14 00:44: 38 Yes 20mg Take 20 mg by mouth in the morning and 20 mg in the evening. [facility] FLUoxetine 40 mg capsule 06-14 00:44: 38 Yes 40mg Take 40 mg by mouth in the morning and 40 mg in the evening. [facility] OLANZapine 2.5 mg tablet 06-14 00:44: 38 Yes 1mg Take 1 mg by mouth in the morning and 1 mg in the evening. [facility] pantoprazol e (PROTONIX) 40 mg EC tablet 06-14 00:44: 38 Yes 40mg Take 40 mg by mouth in the morning and 40 mg in the evening. [facility] ALPRAZolam (XANAX) 1 mg tablet 06-14 00:44: 38 Yes 1mg Take 1 mg by mouth in the morning and 1 mg in the evening. [facility] clonazePAM (KLONOPIN) 1 mg tablet 06-14 00:44: 38 06-14 00:00 :00 No 1mg Take 1 mg by mouth as needed. [facility] TAKE 1 TABLET BY MOUTH EVERY 8 HOURS NEEDED FOR NAUSEA 2021-06 00:00: 00 Yes Sergio Hayes AZITHROMYCI N 250 MG TABS 2021-06 00:00: 00 Yes Sergio Hayes CEPHALEXIN 500 MG 2021-06 00:00: 00 Yes Sergio Hayes Lidocaine Lidocaine 2021-06 00:00: 00 No 10mg [facility] Kenalog (Triamcinol one) Kenalog (Triamcinol one) 2021-06 00:00: 00 No 40mg [facility] Lidocaine Lidocaine 2021-06 00:00: 00 No 10mg [facility] Kenalog (Triamcinol one) Kenalog (Triamcinol one) 2021-06 00:00: 00 No 40mg [facility] Lidocaine Lidocaine 2021-06 00:00: 00 No 10mg [facility] Kenalog (Triamcinol one) Kenalog (Triamcinol one) 2021-06 00:00: 00 No 40mg [facility] Lidocaine Lidocaine 2021-06 00:00: 00 No 10mg [facility] Kenalog (Triamcinol one) Kenalog (Triamcinol one) 2021-06 00:00: 00 No 40mg [facility] Lidocaine Lidocaine 2021-06 00:00: 00 No 10mg [facility] Kenalog (Triamcinol one) Kenalog (Triamcinol one) 2021-06 00:00: 00 No 40mg [facility] Lidocaine Lidocaine 2021-06 00:00: 00 No 10mg [facility] Kenalog (Triamcinol one) Kenalog (Triamcinol one) 2021-06 00:00: 00 No 40mg [facility] Lidocaine Lidocaine 2021-06 00:00: 00 No 10mg [facility] Kenalog (Triamcinol one) Kenalog (Triamcinol one) 2021-06 00:00: 00 No 40mg [facility] Lidocaine Lidocaine 2021-06 00:00: 00 No 10mg [facility] Kenalog (Triamcinol one) Kenalog (Triamcinol one) 2021-06 00:00: 00 No 40mg [facility] Lidocaine Lidocaine 2021-06 00:00: 00 No 10mg [facility] Kenalog (Triamcinol one) Kenalog (Triamcinol one) 2021-06- 00:00: 00 No 40mg [facility] Lidocaine Lidocaine 2021-06 00:00: 00 No 10mg [facility] Kenalog (Triamcinol one) Kenalog (Triamcinol one) 2021-06 00:00: 00 No 40mg [facility] Lidocaine Lidocaine 2021-06 00:00: 00 No 10mg [facility] Kenalog (Triamcinol one) Kenalog (Triamcinol one) 2021-06 00:00: 00 No 40mg [facility] TAKE ONE CAPSULE BY MOUTH 1/2 BEFORE BREAKFAST OR 1ST MEAL 2021-06 00:00: 00 Yes Sergio Hayes Kenalog (Triamcinol one) Kenalog (Triamcinol one) 2021-06 00:00: 00 No 40mg [facility] Kenalog (Triamcinol one) Kenalog (Triamcinol one) 2021-06 00:00: 00 No 40mg [facility] Kenalog (Triamcinol one) Kenalog (Triamcinol one) 2021-06 00:00: 00 No 40mg [facility] Kenalog (Triamcinol one) Kenalog (Triamcinol one) 2021-06 00:00: 00 No 40mg [facility] Kenalog (Triamcinol one) Kenalog (Triamcinol one) 2021-06 00:00: 00 No 40mg [facility] Kenalog (Triamcinol one) Kenalog (Triamcinol one) 2021-06 00:00: 00 No 40mg [facility] Kenalog (Triamcinol one) Kenalog (Triamcinol one) 2021-06 00:00: 00 No 40mg [facility] Kenalog (Triamcinol one) Kenalog (Triamcinol one) 2021-06 00:00: 00 No 40mg [facility] Kenalog (Triamcinol one) Kenalog (Triamcinol one) 2021-06 00:00: 00 No 40mg [facility] Kenalog (Triamcinol one) Kenalog (Triamcinol one) 2021-06 00:00: 00 No 40mg [facility] Kenalog (Triamcinol one) Kenalog (Triamcinol one) 2021-06 00:00: 00 No 40mg [facility] Kenalog (Triamcinol one) Kenalog (Triamcinol one) 2021-06 00:00: 00 No 40mg [facility] Kenalog (Triamcinol one) Kenalog (Triamcinol one) 2021-06 00:00: 00 No 40mg [facility] DEXMETHYLPH ENIDATE 5MG TABLETS 2021-06 00:00: 00 Yes Sergio Hayes DEXMETHYLPH ENIDATE HYDROCHLORI DE ER 10 MG CP24 2021-06 00:00: 00 Yes Sergio Hayes ALPRAZOLAM 0.5MG TABLETS 2021-06 00:00: 00 Yes Sergio Hayes Kenalog (Triamcinol one) Kenalog (Triamcinol one) 2021-06 00:00: 00 No 40mg [facility] Kenalog (Triamcinol one) Kenalog (Triamcinol one) 2021-06 00:00: 00 No 40mg [facility] Kenalog (Triamcinol one) Kenalog (Triamcinol one) 2021-06 00:00: 00 No 40mg [facility] Kenalog (Triamcinol one) Kenalog (Triamcinol one) 2021-06 00:00: 00 No 40mg [facility] Kenalog (Triamcinol one) Kenalog (Triamcinol one) 2021-06 00:00: 00 No 40mg [facility] Kenalog (Triamcinol one) Kenalog (Triamcinol one) 2021-06 00:00: 00 No 40mg [facility] Kenalog (Triamcinol one) Kenalog (Triamcinol one) 2021-06 00:00: 00 No 40mg [facility] Kenalog (Triamcinol one) Kenalog (Triamcinol one) 2021-06 00:00: 00 No 40mg [facility] Kenalog (Triamcinol one) Kenalog (Triamcinol one) 2021-06 00:00: 00 No 40mg [facility] Kenalog (Triamcinol one) Kenalog (Triamcinol one) 2021-06 00:00: 00 No 40mg [facility] Kenalog (Triamcinol one) Kenalog (Triamcinol one) 2021-06 00:00: 00 No 40mg [facility] Kenalog (Triamcinol one) Kenalog (Triamcinol one) 2021-06 00:00: 00 No 40mg [facility] Kenalog (Triamcinol one) Kenalog (Triamcinol one) 2021-06 00:00: 00 No 40mg [facility] Kenalog (Triamcinol one) Kenalog (Triamcinol one) 2021-06 00:00: 00 No 40mg [facility] Kenalog (Triamcinol one) Kenalog (Triamcinol one) 2021-06 00:00: 00 No 40mg [facility] DICYCLOMINE HYDROCHLORI DE 20 MG TABS 2021-06 0-19 00:00: 00 Yes Sergio Hayes METOPROLOL TARTRATE 50 MG TABS 2021-06 0-18 00:00: 00 Yes Sergio Hayes AMPHETAMINE /DEXTROAMPH ETAMINE 15 MG TABS 2021-06 0-17 00:00: 00 Yes Sergio Hayes TAKE 1 TABLET BY MOUTH EVERY DAY 2021-06 0-12 00:00: 00 Yes Sergio Hayes Kenalog (Triamcinol one) Kenalog (Triamcinol one) 2021-06 0-12 00:00: 00 No 40mg [facility] Kenalog (Triamcinol one) Kenalog (Triamcinol one) 2021-06 0-12 00:00: 00 No 40mg [facility] Kenalog (Triamcinol one) Kenalog (Triamcinol one) 2021-06 0-12 00:00: 00 No 40mg [facility] Kenalog (Triamcinol one) Kenalog (Triamcinol one) 2021-06 0-12 00:00: 00 No 40mg [facility] Kenalog (Triamcinol one) Kenalog (Triamcinol one) 2021-06 0-12 00:00: 00 No 40mg [facility] Kenalog (Triamcinol one) Kenalog (Triamcinol one) 2021-06 0-12 00:00: 00 No 40mg [facility] Kenalog (Triamcinol one) Kenalog (Triamcinol one) 2021-06 0-12 00:00: 00 No 40mg [facility] Kenalog (Triamcinol one) Kenalog (Triamcinol one) 2021-06 0-12 00:00: 00 No 40mg [facility] Kenalog (Triamcinol one) Kenalog (Triamcinol one) 2021-06 0-12 00:00: 00 No 40mg [facility] Kenalog (Triamcinol one) Kenalog (Triamcinol one) 2021-06 0-12 00:00: 00 No 40mg [facility] Kenalog (Triamcinol one) Kenalog (Triamcinol one) 2021-06 0-12 00:00: 00 No 40mg [facility] Kenalog (Triamcinol one) Kenalog (Triamcinol one) 2021-06 0-12 00:00: 00 No 40mg [facility] Kenalog (Triamcinol one) Kenalog (Triamcinol one) 2021-06 0-12 00:00: 00 No [facility] Kenalog (Triamcinol one) Kenalog (Triamcinol one) 2021-06 0-12 00:00: 00 No [facility] Kenalog (Triamcinol one) Kenalog (Triamcinol one) 2021-06 0-12 00:00: 00 No [facility] Kenalog (Triamcinol one) Kenalog (Triamcinol one) 2021-06 0-12 00:00: 00 No 40mg [facility] Kenalog (Triamcinol one) Kenalog (Triamcinol one) 2021-06 0-12 00:00: 00 No 40mg [facility] TAKE ONE CAPSULE BY MOUTH 1/2 BEFORE BREAKFAST OR 1ST MEAL 2021-0 9-29 00:00: 00 Yes Sergio Hayes D-AMPHETAMI NE SALT COMBO 15MG TABS 2021-0 9- 00:00: 00 Yes Sergio Hayes OLANZAPINE 5MG TABLETS 2021-0 9-22 00:00: 00 Yes Sergio Hayes TAKE 1 TABLET BY MOUTH TWICE DAILY NEEDED 2021-0 9-19 00:00: 00 Yes Sergio Hayes FLUOXETINE 40MG CAPSULES 2021-0 8-25 00:00: 00 Yes Sergio Hayes D-AMPHETAMI NE SALT COMBO 15MG TABS 0 8-23 00:00: 00 Yes Sergio Hayes FAMOTIDINE 40 MG TABS 2021-0 8-20 00:00: 00 Yes Sergio Hayes TAKE 1 TABLET BY MOUTH TWICE DAILY 2021-0 8-16 00:00: 00 Yes Sergio Hayes ALPRAZOLAM 0.5MG TABLETS 2021-0 7-26 00:00: 00 Yes Sergio Hayes FLUOXETINE 40MG CAPSULES 2021-0 7-26 00:00: 00 Yes Sergio Hayes OLANZAPINE 5MG TABLETS 0 7-26 00:00: 00 Yes Sergio Hayes DEXLANSOPRA ZOLE 60 MG CPDR 0 01-04 00:00: 00 Yes Sergio Hayes TAKE 1 CAPSULE BY MOUTH EVERY DAY 0 12-31 00:00: 00 Yes Sergio Hayes Bupivicaine [place] Bupivicaine [place] 0 10-06 00:00: 00 No 2.5mg [facility] Kenalog (Triamcinol one) Kenalog (Triamcinol one) 0 10-06 00:00: 00 No 40mg [facility] Bupivicaine [place] Bupivicaine [place] 0 10-06 00:00: 00 No 2.5mg [facility] Kenalog (Triamcinol one) Kenalog (Triamcinol one) 0 10-06 00:00: 00 No 40mg [facility] Bupivicaine [place] Bupivicaine [place] 0 10-06 00:00: 00 No 2.5mg [facility] Kenalog (Triamcinol one) Kenalog (Triamcinol one) 0 10-06 00:00: 00 No 40mg [facility] Bupivicaine [place] Bupivicaine [place] 0 10-06 00:00: 00 No 2.5mg [facility] Kenalog (Triamcinol one) Kenalog (Triamcinol one) 0 10-06 00:00: 00 No 40mg [facility] Bupivicaine [place] Bupivicaine [place] 0 10-06 00:00: 00 No 2.5mg [facility] Kenalog (Triamcinol one) Kenalog (Triamcinol one) 0 10-06 00:00: 00 No 40mg [facility] Bupivicaine [place] Bupivicaine [place] 0 10-06 00:00: 00 No 2.5mg [facility] Kenalog (Triamcinol one) Kenalog (Triamcinol one) 0 10-06 00:00: 00 No 40mg [facility] Bupivicaine [place] Bupivicaine [place] 0 10-06 00:00: 00 No 2.5mg [facility] Kenalog (Triamcinol one) Kenalog (Triamcinol one) 0 10-06 00:00: 00 No 40mg [facility] Bupivicaine [place] Bupivicaine [place] 0 10-06 00:00: 00 No 2.5mg [facility] Kenalog (Triamcinol one) Kenalog (Triamcinol one) 0 10-06 00:00: 00 No 40mg [facility] Bupivicaine [place] Bupivicaine [place] 0 10-06 00:00: 00 No 2.5mg [facility] Kenalog (Triamcinol one) Kenalog (Triamcinol one) 0 10-06 00:00: 00 No 40mg [facility] Bupivicaine [place] Bupivicaine [place] 0 10-06 00:00: 00 No 2.5mg [facility] Kenalog (Triamcinol one) Kenalog (Triamcinol one) 0 10-06 00:00: 00 No 40mg [facility] Bupivicaine [place] Bupivicaine [place] 0 10-06 00:00: 00 No 2.5mg [facility] Kenalog (Triamcinol one) Kenalog (Triamcinol one) 0 10-06 00:00: 00 No 40mg [facility] Bupivicaine [place] Bupivicaine [place] 0 10-06 00:00: 00 No 2.5mg [facility] Kenalog (Triamcinol one) Kenalog (Triamcinol one) 0 10-06 00:00: 00 No 40mg [facility] Bupivicaine [place] Bupivicaine [place] 0 10-06 00:00: 00 No 2.5mg [facility] Kenalog (Triamcinol one) Kenalog (Triamcinol one) 0 10-06 00:00: 00 No 40mg [facility] Bupivicaine [place] Bupivicaine [place] 0 10-06 00:00: 00 No 2.5mg [facility] Kenalog (Triamcinol one) Kenalog (Triamcinol one) 0 10-06 00:00: 00 No 40mg [facility] Bupivicaine [place] Bupivicaine [place] 0 10-06 00:00: 00 No 2.5mg [facility] Kenalog (Triamcinol one) Kenalog (Triamcinol one) 0 10-06 00:00: 00 No 40mg [facility] Bupivicaine [place] Bupivicaine [place] 0 10-06 00:00: 00 No 2.5mg [facility] Kenalog (Triamcinol one) Kenalog (Triamcinol one) 0 10-06 00:00: 00 No 40mg [facility] Bupivicaine [place] Bupivicaine [place] 0 10-06 00:00: 00 No 2.5mg [facility] Kenalog (Triamcinol one) Kenalog (Triamcinol one) 0 10-06 00:00: 00 No 40mg [facility] Bupivicaine [place] Bupivicaine [place] 0 10-06 00:00: 00 No 2.5mg [facility] Kenalog (Triamcinol one) Kenalog (Triamcinol one) 0 10-06 00:00: 00 No 40mg [facility] Bupivicaine [place] Bupivicaine [place] 2021-0 10-06 00:00: 00 No 2.5mg [facility] Kenalog (Triamcinol one) Kenalog (Triamcinol one) 0 10-06 00:00: 00 No 40mg [facility] Bupivicaine [place] Bupivicaine [place] 0 10-06 00:00: 00 No 2.5mg [facility] Kenalog (Triamcinol one) Kenalog (Triamcinol one) 0 10-06 00:00: 00 No 40mg [facility] Bupivicaine [place] Bupivicaine [place] 0 10-06 00:00: 00 No 2.5mg [facility] Kenalog (Triamcinol one) Kenalog (Triamcinol one) 0 10-06 00:00: 00 No 40mg [facility] Bupivicaine [place] Bupivicaine [place] 0 10-06 00:00: 00 No 2.5mg [facility] Kenalog (Triamcinol one) Kenalog (Triamcinol one) 0 10-06 00:00: 00 No 40mg [facility] Bupivicaine [place] Bupivicaine [place] 0 10-06 00:00: 00 No 2.5mg [facility] Kenalog (Triamcinol one) Kenalog (Triamcinol one) 0 10-06 00:00: 00 No 40mg [facility] Bupivicaine [place] Bupivicaine [place] 0 10-06 00:00: 00 No 2.5mg [facility] Kenalog (Triamcinol one) Kenalog (Triamcinol one) 0 10-06 00:00: 00 No 40mg [facility] Dose Unknown 0 3-15 00:00: 00 Yes Sergio Hayes Dose Unknown 0 3-15 00:00: 00 Yes Sergio Hayes Dose Unknown 0 3-15 00:00: 00 Yes Sergio Hayes Dose Unknown 0 3-15 00:00: 00 Yes Sergio Hayes Dose Unknown 2-0 3-15 00:00: 00 Yes Sergio Hayes methylPREDN ISolone 4 MG methylPREDN ISolone 4 MG 2-0 1-11 00:00: 00 No methylPRED NISolone 4 MG methylPREDN ISolone 4 MG methylPREDN ISolone 4 MG 2022-0 1-11 00:00: 00 No methylPRED NISolone 4 [...] No methylPRED NISolone 4 MG Synvisc Synvisc 2020-06 2-16 00:00: 00 No 16mg [facility] Synvisc Synvisc 2020-06 2-16 00:00: 00 No 16mg [facility] Synvisc Synvisc 1 2-16 00:00: 00 No 16mg [facility] Synvisc Synvisc 2020-06 2-16 00:00: 00 No 16mg [facility] Synvisc Synvisc 1 2-16 00:00: 00 No 16mg [facility] Synvisc Synvisc 2020-1 2-16 00:00: 00 No 16mg [facility] Synvisc Synvisc 1-1 2-16 00:00: 00 No 16mg [facility] Synvisc Synvisc 2020-1 2-16 00:00: 00 No 16mg [facility] Synvisc Synvisc 2020-1 2-16 00:00: 00 No 16mg [facility] Synvisc Synvisc 2020-1 2-16 00:00: 00 No 16mg [facility] Synvisc Synvisc 2020-1 2-16 00:00: 00 No 16mg [facility] Synvisc Synvisc 2020-1 2-16 00:00: 00 No 16mg [facility] Synvisc Synvisc 2020-1 2-16 00:00: 00 No 16mg [facility] Synvisc Synvisc 2020-1 2-16 00:00: 00 No 16mg [facility] Synvisc Synvisc 2020-1 2-16 00:00: 00 No 16mg [facility] Synvisc Synvisc 1-1 2-16 00:00: 00 No 16mg [facility] Synvisc Synvisc 2020-1 2-16 00:00: 00 No 16mg [facility] Synvisc Synvisc 1-1 2-16 00:00: 00 No 16mg [facility] Synvisc Synvisc 2020-1 2-16 00:00: 00 No 16mg [facility] Synvisc Synvisc 1-1 2-16 00:00: 00 No 16mg [facility] Synvisc Synvisc 2020-1 2-16 00:00: 00 No 16mg [facility] Synvisc Synvisc 2020-1 2-16 00:00: 00 No 16mg [facility] Synvisc Synvisc 2020-1 2-16 00:00: 00 No 16mg [facility] Synvisc Synvisc 2020-1 2-16 00:00: 00 No 16mg [facility] Synvisc Synvisc 2020- 2- 00:00: 00 No 16mg [facility] Synvisc Synvisc 2020-06 2- 00:00: 00 No 16mg [facility] Synvisc Synvisc 2020- 2- 00:00: 00 No 16mg [facility] Synvisc Synvisc 2020-06 2 00:00: 00 No 16mg [facility] Synvisc Synvisc 2020-06 2 00:00: 00 No 16mg [facility] Synvisc Synvisc 2020-06 2 00:00: 00 No 16mg [facility] Synvisc Synvisc 2020- 2- 00:00: 00 No 16mg [facility] Synvisc Synvisc 2020-06 2- 00:00: 00 No 16mg [facility] Synvisc Synvisc 2020- 2- 00:00: 00 No 16mg [facility] Synvisc Synvisc 2020-06 2 00:00: 00 No 16mg [facility] Synvisc Synvisc 2020- 2- 00:00: 00 No 16mg [facility] Synvisc Synvisc 2020-06 2- 00:00: 00 No 16mg [facility] Synvisc Synvisc 2020- 2- 00:00: 00 No 16mg [facility] Synvisc Synvisc 2020-06 2- 00:00: 00 No 16mg [facility] Synvisc Synvisc 2020- 2- 00:00: 00 No 16mg [facility] Synvisc Synvisc 2020-06 2- 00:00: 00 No 16mg [facility] Synvisc Synvisc 2020-06 2 00:00: 00 No 16mg [facility] Synvisc Synvisc 2020-06 2 00:00: 00 No 16mg [facility] Synvisc Synvisc 2020-06 2 00:00: 00 No 16mg [facility] Synvisc Synvisc 2020-06 2 00:00: 00 No 16mg [facility] Synvisc Synvisc 2020-06 2 00:00: 00 No 16mg [facility] Synvisc Synvisc 2020-06 2 00:00: 00 No 16mg [facility] Synvisc Synvisc 2020-06 2 00:00: 00 No 16mg [facility] Synvisc Synvisc 2020-06 2 00:00: 00 No 16mg [facility] Synvisc Synvisc 2020-06 2 00:00: 00 No 16mg [facility] Synvisc Synvisc 2020-06 2 00:00: 00 No 16mg [facility] Synvisc Synvisc 2020-06 2 00:00: 00 No 16mg [facility] Synvisc Synvisc 2020-06 2 00:00: 00 No 16mg [facility] Synvisc Synvisc 2020-06 2- 00:00: 00 No 16mg [facility] Synvisc Synvisc 2020-06 2- 00:00: 00 No 16mg [facility] Synvisc Synvisc 2020-06 2- 00:00: 00 No 16mg [facility] Synvisc Synvisc 2020-06 2- 00:00: 00 No 16mg [facility] Synvisc Synvisc 2020-06 2- 00:00: 00 No 16mg [facility] Synvisc Synvisc 2020-06 2- 00:00: 00 No 16mg [facility] Synvisc Synvisc 2020-06 2- 00:00: 00 No 16mg [facility] Synvisc Synvisc 2020-06 2- 00:00: 00 No 16mg [facility] Synvisc Synvisc 2020-06 2- 00:00: 00 No 16mg [facility] Synvisc Synvisc 2020-06 2- 00:00: 00 No 16mg [facility] Synvisc Synvisc 2020-06 2- 00:00: 00 No 16mg [facility] Synvisc Synvisc 2020-06 2- 00:00: 00 No 16mg [facility] Synvisc Synvisc 2020-06 2- 00:00: 00 No 16mg [facility] Synvisc Synvisc 2020-06 2- 00:00: 00 No 16mg [facility] Synvisc Synvisc 2020-06 2- 00:00: 00 No 16mg [facility] Synvisc Synvisc 2020-06 2- 00:00: 00 No [facility]mg [facility] Synvisc Synvisc 2020-06 2- 00:00: 00 No [facility] [facility] 2020-06 2- 00:00: 00 No 16mg [facility] Synvisc Synvisc 2020-06 2- 00:00: 00 No 16mg [facility] Synvisc Synvisc 2020-06 2- 00:00: 00 No 16mg [facility] Synvisc Synvisc 2020-06 2- 00:00: 00 No 16mg [facility] Synvisc Synvisc 2020-06 2- 00:00: 00 No 16mg [facility] Synvisc Synvisc 2020-06 2- 00:00: 00 No 16mg [facility] Xarelto 20 MG Xarelto 20 MG 2020-06 [...] 20 MG clonazePAM (KLONOPIN) 1 mg tablet 6-15 13:28: 31 Yes 1mg Take 1 mg by mouth as needed. [facility] metoprolol tartrate (LOPRESSOR) 25 mg tablet 11-25 13:28: 31 Yes 25mg Take 25 mg by mouth daily. [facility] dicyclomine 20 mg tablet 11-25 13:28: 31 Yes 20mg Take 20 mg by mouth daily. [facility] FLUoxetine (PROZAC) 40 mg capsule 11-25 13:28: 31 Yes 40mg Take 40 mg by mouth daily. [facility] OLANZapine 2.5 mg tablet 11-25 13:28: 31 Yes 2.5mg Take 2.5 mg by mouth 2 (two) times daily. [facility] lansoprazol e 30 mg capsule 11-25 12:19: 35 11-25 00:00 :00 No 30mg Take 30 mg by mouth daily. [facility] sucralfate 1 gram tablet 11-25 00:00: 00 01-25 04:59 :00 No [id number] 1g Take 1 tablet by mouth before meals and at bedtime for 60 days. [facility] olanzapine 5 mg disintegrat ing tablet 11-09 00:00: 00 Yes 1mg S[facility] lansoprazol e 30 mg delayed release,dis integrating tablet 11-09 00:00: 00 Yes 1mg Sergio Hayes dicyclomine 20 mg tablet 11-09 00:00: 00 Yes 1mg Sergio Hayes Dose Unknown 11-09 00:00: 00 Yes Sergio Hayes clonazepam 0.5 mg tablet 11-09 00:00: 00 Yes 1mg Sergio Hayes fluoxetine 90 mg capsule,del ayed release 11-09 00:00: 00 Yes 1mg Sergio Hayes sucralfate 1 gram tablet 07-15 00:00: 00 07-30 05:59 :00 No [id number] 1g Take 1 tablet by mouth before meals and at bedtime for 14 days. [facility] desonide 0.05 % cream 1-18 00:00: 00 Yes APPLY TO THE AFFECTED AREA TWICE DAILY SPARINGLY AND RUB GENTLY [facility] Metoprolol Tartrate Metoprolol Tartrate Yes Nirmal Hancock 1 tablet with food [facility] Dicyclomine HCl Dicyclomine HCl Yes Nirmal Hancock TAKE 1 TABLET BY MOUTH TWICE DAILY NEEDED [facility] Premarin Premarin Yes Nirmal Hancock 1 tablet [facility] Hydrochloro thiazide Hydrochloro thiazide Yes Nirmal Hancock 1 tablet in the morning [facility] Adderall Adderall Yes Nirmal Hancock 1 tablet [facility] Lansoprazol e Lansoprazol e Yes Nirmal Hancock 1 capsule [facility] Clonazepam Clonazepam Yes Nirmal Hancock 1 tablet [facility] Duloxetine HCl Duloxetine HCl Yes Nirmal Hancock TK ONE C PO BID [facility] Adderall 30 MG Adderall 30 MG No BID Adderall 30 MG ALPRAZolam 0.5 MG ALPRAZolam 0.5 MG No 1{table t} BID ALPRAZolam 0.5 MG Dexilant Dexilant No Dexilant Metoprolol Tartrate [...] Calcium 20 MG Dexilant Dexilant No Dexilant OLANZapine 5 MG OLANZapine 5 MG No OLANZapine 5 MG Metoprolol Tartrate 50 MG Metoprolol Tartrate 50 MG No 1{table t_with_ food} BID Metoprolol Tartrate 50 MG Adderall 30 MG Adderall 30 MG No BID Adderall 30 MG ALPRAZolam 0.5 MG ALPRAZolam 0.5 MG No 1{table t} BID ALPRAZolam 0.5 MG ALPRAZolam 0.5 MG ALPRAZolam 0.5 MG No 1{table t} BID ALPRAZolam 0.5 MG Atorvastati n Calcium 20 MG Atorvastati n Calcium 20 MG No 1{table t} QD Atorvastat in Calcium 20 MG Ritalin 10 MG Ritalin 10 MG No QD Ritalin 10 MG Ritalin 5 MG Ritalin 5 MG No QD Ritalin 5 MG Dexilant Dexilant No Dexilant OLANZapine 5 MG OLANZapine 5 MG No OLANZapine 5 MG Adderall 30 MG Adderall 30 MG No BID Adderall 30 MG Metoprolol Tartrate 50 MG Metoprolol Tartrate 50 MG No 1{table t_with_ food} BID Metoprolol Tartrate 50 MG ALPRAZolam 0.5 MG ALPRAZolam 0.5 MG No 1{table t} BID ALPRAZolam 0.5 MG Atorvastati n Calcium 20 MG Atorvastati n Calcium 20 MG No 1{table t} QD Atorvastat in Calcium 20 MG Ritalin 10 MG Ritalin 10 MG No QD Ritalin 10 MG Ritalin 5 MG Ritalin 5 MG No QD Ritalin 5 MG Dexilant Dexilant No Dexilant OLANZapine 5 MG OLANZapine 5 MG No OLANZapine 5 MG Adderall 30 MG Adderall 30 [...] t} QD Atorvastat in Calcium 20 MG Adderall 30 [...] t} QD Atorvastat in Calcium 20 MG Adderall 30 [...] t_with_ food} BID Metoprolol Tartrate 50 MG Omeprazole 40 MG Omeprazole 40 MG [...] 5 MG No QD Ritalin 5 MG Atorvastati n Calcium 20 MG [...] t_with_ food} BID Metoprolol Tartrate 50 MG Omeprazole 40 MG Omeprazole 40 MG [...] Adderall 30 MG PROzac PROzac No PROzac Atorvastati n Calcium 10 MG Atorvastati n [...] No Omeprazole 40 MG Atorvastati n Calcium 10 MG Atorvastati [...] 40 MG No Omeprazole 40 MG Xarelto 15 MG Xarelto 15 MG No 1{table t_with_ food} BID Xarelto 15 MG Xarelto Starter Pack 15 & 20 MG Xarelto Starter Pack 15 & 20 MG No Xarelto Starter Pack 15 & 20 MG Breztri Aerosphere Breztri Aerosphere No Breztri Aerosphere OLANZapine 5 MG OLANZapine 5 MG No OLANZapine 5 MG ALPRAZolam 0.5 MG ALPRAZolam 0.5 MG No 1{table t} BID ALPRAZolam 0.5 MG FLUoxetine HCl 20 MG FLUoxetine HCl 20 MG No QD FLUoxetine HCl 20 MG Metoprolol Tartrate 50 MG Metoprolol Tartrate 50 MG No 1{table t_with_ food} BID Metoprolol Tartrate 50 MG FLUoxetine HCl 60 MG FLUoxetine HCl [...] t_with_ food} BID Metoprolol Tartrate 50 MG Omeprazole 40 MG Omeprazole 40 MG [...] t_with_ food} BID Metoprolol Tartrate 50 MG Xanax 0.5 MG Xanax 0.5 MG No 1{table t} BID Xanax 0.5 MG Metoprolol Tartrate 50 MG Metoprolol Tartrate 50 MG No 1{table t_with_ food} BID Metoprolol Tartrate 50 MG Xarelto Starter Pack 15 & 20 [...] t_with_ food} BID Metoprolol Tartrate 50 MG FLUoxetine HCl 20 MG FLUoxetine HCl 20 MG No QD FLUoxetine HCl 20 MG Xanax 0.5 MG Xanax 0.5 MG No 1{table t} BID Xanax 0.5 MG FLUoxetine HCl 60 MG FLUoxetine [...] t_with_ food} BID Metoprolol Tartrate 50 MG Omeprazole 40 MG Omeprazole 40 MG [...] Adderall 30 MG PROzac PROzac No PROzac Xarelto Starter Pack 15 & 20 MG [...] t_with_ food} BID Metoprolol Tartrate 50 MG Omeprazole 40 MG Omeprazole 40 MG [...] Adderall 30 MG PROzac PROzac No PROzac Xarelto Starter Pack 15 & 20 MG [...] t_with_ food} BID Metoprolol Tartrate 50 MG Omeprazole 40 MG Omeprazole 40 MG [...] Adderall 30 MG PROzac PROzac No PROzac Adderall 30 MG Adderall 30 MG No [...] HIGH DOSE OVER 65 2022-05-20 14:18:00 Completed [facility] FLUZONE HIGH DOSE OVER 65 FLUZONE HIGH DOSE OVER 65 2022-05-20 14:18:00 Completed [facility] FLUZONE HIGH DOSE OVER 65 FLUZONE HIGH DOSE OVER 65 2022-05-20 14:18:00 Completed [facility] FLUZONE HIGH DOSE OVER 65 FLUZONE HIGH DOSE OVER 65 2022-05-20 14:18:00 Completed [facility] FLUZONE HIGH DOSE OVER 65 FLUZONE HIGH DOSE OVER 65 2022-05-20 14:18:00 Completed [facility] FLUZONE HIGH DOSE OVER 65 FLUZONE HIGH DOSE OVER 65 2022-05-20 14:18:00 Completed [facility] FLUZONE HIGH DOSE OVER 65 FLUZONE HIGH DOSE OVER 65 2022-05-20 14:18:00 Completed [facility] Afluria Afluria 2021-03-26 09:44:00 [facility]pleted [facility] Afluria Afluria 2021-03-26 09:44:00 Completed [facility] Afluria Afluria 2021-03-26 09:44:00 Completed [facility] Afluria Afluria 2021-03-26 09:44:00 Completed [facility] Afluria Afluria 2021-03-26 09:44:00 Completed [facility] Afluria Afluria 2021-03-26 09:44:00 Completed [facility] Afluria Afluria 2021-03-26 09:44:00 Completed [facility] Afluria Afluria 2021-03-26 09:44:00 Completed [facility] Afluria Afluria 2021-03-26 09:44:00 Completed [facility] Afluria Afluria 2021-03-26 09:44:00 [facility]pleted [facility] Afluria Afluria 2021-03-26 09:44:00 Completed [facility] Afluria Afluria 2021-03-26 09:44:00 Completed [facility] Afluria Afluria 2021-03-26 09:44:00 [facility]pleted [facility] Afluria Afluria 2021-03-26 09:44:00 [facility]pleted [facility] Afluria Afluria 2021-03-26 09:44:00 Completed [facility] Afluria Afluria 2021-03-26 09:44:00 Completed [facility] Afluria Afluria 2021-03-26 09:44:00 Completed [facility] Afluria Afluria 2021-03-26 09:44:00 Completed [facility] Afluria Afluria 2021-03-26 09:44:00 Completed [facility] Afluria Afluria 2021-03-26 09:44:00 Completed [facility] Afluria Afluria 2021-03-26 09:44:00 Completed [facility] Afluria Afluria 2021-03-26 09:44:00 Completed [facility] Afluria Afluria 2021-03-26 09:44:00 Completed [facility] Afluria Afluria 2021-03-26 09:44:00 Completed [facility] Afluria Afluria 2021-03-26 09:44:00 Completed [facility] Afluria Afluria 2021-03-26 09:44:00 Completed [facility] Afluria Afluria 2021-03-26 09:44:00 Completed [facility] Afluria Afluria 2021-03-26 09:44:00 Completed [facility] Afluria Afluria 2021-03-26 09:44:00 Completed [facility] Afluria Afluria 2021-03-26 09:44:00 Completed [facility] Afluria Afluria 2021-03-26 09:44:00 Completed [facility] Afluria Afluria 2021-03-26 09:44:00 Completed [facility] Afluria Afluria 2021-03-26 09:44:00 Completed [facility] Afluria Afluria 2021-03-26 09:44:00 Completed [facility] Afluria Afluria 2021-03-26 09:44:00 Completed [facility] Afluria Afluria 2021-03-26 09:44:00 Completed [facility] Afluria Afluria 2021-03-26 09:44:00 Completed [facility] Afluria Afluria 2021-03-26 09:44:00 Completed [facility] Afluria Afluria 2021-03-26 09:44:00 Completed [facility] Moderna COVID-19 Vaccine Moderna COVID-19 Vaccine 2020-08-23 00:00:00 Completed Sergio Hayes Pneumovax (PPSV23) Pneumovax (PPSV23) 2020-03-20 11:22:00 Completed [facility] Pneumovax (PPSV23) Pneumovax (PPSV23) 2020-03-20 11:22:00 Completed [facility] Pneumovax (PPSV23) Pneumovax (PPSV23) 2020-03-20 11:22:00 Completed [facility] Pneumovax (PPSV23) Pneumovax (PPSV23) 2020-03-20 11:22:00 Completed [facility] Pneumovax (PPSV23) Pneumovax (PPSV23) 2020-03-20 11:22:00 Completed [facility] Pneumovax (PPSV23) Pneumovax (PPSV23) 2020-03-20 11:22:00 Completed [facility] Pneumovax (PPSV23) Pneumovax (PPSV23) 2020-03-20 11:22:00 Completed [facility] Pneumovax (PPSV23) Pneumovax (PPSV23) 2020-03-20 11:22:00 Completed [facility] Pneumovax (PPSV23) Pneumovax (PPSV23) 2020-03-20 11:22:00 Completed [facility] Pneumovax (PPSV23) Pneumovax (PPSV23) 2020-03-20 11:22:00 Completed [facility] Pneumovax (PPSV23) Pneumovax (PPSV23) 2020-03-20 11:22:00 Completed [facility] Pneumovax (PPSV23) Pneumovax (PPSV23) 2020-03-20 11:22:00 Completed [facility] Pneumovax (PPSV23) Pneumovax (PPSV23) 2020-03-20 11:22:00 Completed [facility] Pneumovax (PPSV23) Pneumovax (PPSV23) 2020-03-20 11:22:00 Completed [facility] Pneumovax (PPSV23) Pneumovax (PPSV23) 2020-03-20 11:22:00 Completed [facility] Pneumovax (PPSV23) Pneumovax (PPSV23) 2020-03-20 11:22:00 Completed [facility] Pneumovax (PPSV23) Pneumovax (PPSV23) 2020-03-20 11:22:00 Completed [facility] Pneumovax (PPSV23) Pneumovax (PPSV23) 2020-03-20 11:22:00 Completed [facility] Pneumovax (PPSV23) Pneumovax (PPSV23) 2020-03-20 11:22:00 Completed [facility] Pneumovax (PPSV23) Pneumovax (PPSV23) 2020-03-20 11:22:00 Completed [facility] Pneumovax (PPSV23) Pneumovax (PPSV23) 2020-03-20 11:22:00 Completed [facility] Pneumovax (PPSV23) Pneumovax (PPSV23) 2020-03-20 11:22:00 Completed [facility] Pneumovax (PPSV23) Pneumovax (PPSV23) 2020-03-20 11:22:00 Completed [facility] Pneumovax (PPSV23) Pneumovax (PPSV23) 2020-03-20 11:22:00 Completed [facility] Pneumovax (PPSV23) Pneumovax (PPSV23) 2020-03-20 11:22:00 Completed [facility] Pneumovax (PPSV23) Pneumovax (PPSV23) 2020-03-20 11:22:00 Completed [facility] Pneumovax (PPSV23) Pneumovax (PPSV23) 2020-03-20 11:22:00 Completed [facility] Pneumovax (PPSV23) Pneumovax (PPSV23) 2020-03-20 11:22:00 Completed [facility] Pneumovax (PPSV23) Pneumovax (PPSV23) 2020-03-20 11:22:00 Completed [facility] Pneumovax (PPSV23) Pneumovax (PPSV23) 2020-03-20 11:22:00 Completed [facility] Pneumovax (PPSV23) Pneumovax (PPSV23) 2020-03-20 11:22:00 Completed [facility] Pneumovax (PPSV23) Pneumovax (PPSV23) 2020-03-20 11:22:00 Completed [facility] Pneumovax (PPSV23) Pneumovax (PPSV23) 2020-03-20 11:22:00 Completed [facility] Pneumovax (PPSV23) Pneumovax (PPSV23) 2020-03-20 11:22:00 Completed [facility] Pneumovax (PPSV23) Pneumovax (PPSV23) 2020-03-20 11:22:00 Completed [facility] Pneumovax (PPSV23) Pneumovax (PPSV23) 2020-03-20 11:22:00 Completed [facility] Pneumovax (PPSV23) Pneumovax (PPSV23) 2020-03-20 11:22:00 Completed [facility] Pneumovax (PPSV23) Pneumovax (PPSV23) 2020-03-20 11:22:00 Completed [facility] Pneumovax (PPSV23) Pneumovax (PPSV23) 2020-03-20 11:22:00 Completed [facility] Afluria single dose Afluria single dose 11:21:00 Completed [facility] Afluria single dose Afluria single dose 11:21:00 Completed [facility] Afluria single dose Afluria single dose 11:21:00 Completed [facility] Afluria single dose Afluria single dose 11:21:00 Completed [facility] Afluria single dose Afluria single dose 11:21:00 Completed [facility] Afluria single dose Afluria single dose 11:21:00 Completed [facility] Afluria single dose Afluria single dose 11:21:00 Completed [facility] Afluria single dose Afluria single dose 11:21:00 Completed [facility] Afluria single dose Afluria single dose 11:21:00 Completed [facility] Afluria single dose Afluria single dose 11:21:00 Completed [facility] Afluria single dose Afluria single dose 11:21:00 Completed [facility] Afluria single dose Afluria single dose 11:21:00 Completed [facility] Afluria single dose Afluria single dose 11:21:00 Completed [facility] Afluria single dose Afluria single dose 11:21:00 Completed [facility] Afluria single dose Afluria single dose 11:21:00 Completed [facility] Afluria single dose Afluria single dose 11:21:00 Completed [facility] Afluria single dose Afluria single dose 11:21:00 Completed [facility] Afluria single dose Afluria single dose 11:21:00 Completed [facility] Afluria single dose Afluria single dose 11:21:00 Completed [facility] Afluria single dose Afluria single dose 11:21:00 Completed [facility] Afluria single dose Afluria single dose 11:21:00 Completed [facility] Afluria single dose Afluria single dose 11:21:00 Completed [facility] Afluria single dose Afluria single dose 11:21:00 Completed [facility] Afluria single dose Afluria single dose 11:21:00 Completed [facility] Afluria single dose Afluria single dose 11:21:00 Completed [facility] Afluria single dose Afluria single dose 11:21:00 Completed [facility] Afluria single dose Afluria single dose 11:21:00 Completed [facility] Afluria single dose Afluria single dose 11:21:00 Completed [facility] Afluria single dose Afluria single dose 11:21:00 Completed [facility] Afluria single dose Afluria single dose 11:21:00 Completed [facility] Afluria single dose Afluria single dose 11:21:00 Completed [facility] Afluria single dose Afluria single dose 11:21:00 Completed [facility] Afluria single dose Afluria single dose 11:21:00 Completed [facility] Afluria single dose Afluria single dose 11:21:00 Completed [facility] Afluria single dose Afluria single dose 11:21:00 [facility] Afluria single dose Afluria single dose 11:21:00 Completed [facility] Afluria single dose Afluria single dose 11:21:00 [facility] Afluria single dose Afluria single dose 11:21:00 Completed [facility] Afluria single dose Afluria single dose 11:21:00 Completed [facility] Afluria single dose Afluria single dose Unknown Completed [facility] Afluria Afluria Unknown Completed [facility] Pneumovax (PPSV23) Pneumovax (PPSV23) Unknown Completed [facility] FLUZONE HIGH DOSE OVER 65 FLUZONE HIGH DOSE OVER 65 Unknown Completed [facility] Afluria single dose Afluria single dose Unknown Completed [facility] Afluria Afluria Unknown Completed [facility] Pneumovax (PPSV23) Pneumovax (PPSV23) Unknown Completed [facility] FLUZONE HIGH DOSE OVER 65 FLUZONE HIGH DOSE OVER 65 Unknown Completed [facility] Afluria single dose Afluria single dose Unknown Completed [facility] Afluria Afluria Unknown Completed [facility] Pneumovax (PPSV23) Pneumovax (PPSV23) Unknown Completed [facility] FLUZONE HIGH DOSE OVER 65 FLUZONE HIGH DOSE OVER 65 Unknown Completed [facility] Afluria single dose Afluria single dose Unknown Completed [facility] Afluria Afluria Unknown Completed [facility] Pneumovax (PPSV23) Pneumovax (PPSV23) Unknown Completed [facility] FLUZONE HIGH DOSE OVER 65 FLUZONE HIGH DOSE OVER 65 Unknown Completed [facility] Afluria single dose Afluria single dose Unknown Completed [facility] Afluria Afluria Unknown Completed [facility] Pneumovax (PPSV23) Pneumovax (PPSV23) Unknown Completed [facility] FLUZONE HIGH DOSE OVER 65 FLUZONE HIGH DOSE OVER 65 Unknown Completed [facility] Afluria (IIV4) - 3 years and older - SDS - 0.5mL Afluria (IIV4) - 3 years and older - SDS - 0.5mL Unknown Completed [facility] Afluria Afluria Unknown Completed [facility] Pneumovax (PPSV23) Pneumovax (PPSV23) Unknown Completed [facility] FLUZONE HIGH DOSE OVER 65 FLUZONE HIGH DOSE OVER 65 Unknown Completed [facility] Vital Signs Vital Name Observation Time Observation Value Comments S ource Body height 2023-09-27 15:46:00 [facility] Body weight 2023-09-27 15:46:00 60.328 [facility] BMI 2023-09-27 15:46:00 25.97 kg/m2 [facility] height 2022-11-30 11:10:00 60 [in_i] Commo n [facility] weight 2022-11-30 11:10:00 140.4 [lb_av] Co mmon [facility] temperature 2022-11-30 11:10:00 97.2 [degF] Com mon [facility] bmi 2022-11-30 11:10:00 27.42 kg/m2 Comm on [facility] oximetry 2022-11-30 11:10:00 98 % Commo n [facility] respiratory rate 2022-11-30 11:10:00 18 /min [facility] blood pressure systolic 2022-11-30 11:10:00 115 mm[Hg] [facility] blood pressure diastolic 2022-11-30 11:10:00 68 mm[Hg] [facility] height 2022-11-30 11:30:00 60 [in_i] Commo n [facility] weight 2022-11-30 11:30:00 140.4 [lb_av] Co mmon [facility] temperature 2022-11-30 11:30:00 97.2 [degF] Com mon [facility] bmi 2022-11-30 11:30:00 27.42 kg/m2 Comm on [facility] oximetry 2022-11-30 11:30:00 98 % Commo n [facility] respiratory rate 2022-11-30 11:30:00 18 /min [facility] blood pressure systolic 2022-11-30 11:30:00 115 mm[Hg] [facility] blood pressure diastolic 2022-11-30 11:30:00 68 mm[Hg] [facility] Systolic blood pressure 2022-06-16 17:38:00 113 mm[Hg[facility] Diastolic blood pressure 2022-06-16 17:38:00 62 mm[Hg] [facility] Heart rate 2022-06-16 17:38:00 70 /min [facility] Body temperature 2022-06-16 17:38:00 36.67 [place] [facility] Respiratory rate 2022-06-16 17:38:00 16 /min [facility] Oxygen saturation in Arterial blood by Pulse oximetry 2022-06-16 17:38:00 95 /min [facility] Body height 2022-06-15 19:14:00 152.4 cm [facility] Body weight 2022-06-15 19:14:00 55.792 kg [facility] BMI 2022-06-15 19:14:00 24.02 kg/m2 [facility] Systolic blood pressure 2022-06-15 13:41:00 127 mm[Hg] [facility] Diastolic blood pressure 2022-06-15 13:41:00 62 mm[Hg] [facility] Heart rate 2022-06-15 13:41:00 71 /min [facility] Body temperature 2022-06-15 13:41:00 36.72 [place] [facility] Respiratory rate 2022-06-15 13:41:00 18 /min [facility] Oxygen saturation in Arterial blood by Pulse oximetry 2022-06-15 13:41:00 93 /min [place] [facility] Body weight 2022-06-14 06:00:00 56 kg [facility] BMI 2022-06-14 06:00:00 24.02 kg/m2 [facility] height 2022-05-31 10:30:00 60 [in_i] Commo n [facility] weight 2022-05-31 10:30:00 143 [lb_av] Comm on [facility] temperature 2022-05-31 10:30:00 97.2 [degF] Com [facility] bmi 2022-05-31 10:30:00 27.92 kg/m2 Comm on [facility] blood pressure systolic 2022-05-31 10:30:00 134 mm[Hg] Common [facility] blood pressure diastolic 2022-05-31 10:30:00 62 mm[Hg] [facility] height 2022-05-20 13:50:00 60 [in_i] Commo n [facility] weight 2022-05-20 13:50:00 144.2 [lb_av] Co mmon [facility] temperature 2022-05-20 13:50:00 97.6 [degF] Com [facility] bmi 2022-05-20 13:50:00 28.16 kg/m2 Comm on [facility] oximetry 2022-05-20 13:50:00 97 % Commo n [facility] respiratory rate 2022-05-20 13:50:00 17 /min [facility] blood pressure systolic 2022-05-20 13:50:00 131 mm[Hg] [facility] blood pressure diastolic 2022-05-20 13:50:00 60 mm[Hg] [facility] height 2022-03-24 10:10:00 60 [in_i] Commo n [facility] weight 2022-03-24 10:10:00 141.8 [lb_av] Co mmon [facility] temperature 2022-03-24 10:10:00 97.3 [degF] Com mon [facility] bmi 2022-03-24 10:10:00 27.69 kg/m2 Comm on [facility] oximetry 2022-03-24 10:10:00 98 % Commo n [facility] respiratory rate 2022-03-24 10:10:00 18 /min [facility] blood pressure systolic 2022-03-24 10:10:00 132 mm[Hg] Common [facility] blood pressure diastolic 2022-03-24 10:10:00 72 mm[Hg] Common [facility] height 2022-01-05 13:30:00 60 [in_i] Commo n [facility] weight 2022-01-05 13:30:00 139 [lb_av] Comm on [facility] bmi 2022-01-05 13:30:00 27.14 kg/m2 Comm on [facility] blood pressure systolic 2022-01-05 13:30:00 112 mm[Hg] [facility] blood pressure diastolic 2022-01-05 13:30:00 78 mm[Hg] Common [facility] height 2021-12-02 09:50:00 60 [in_i] Commo n [facility] weight 2021-12-02 09:50:00 131.6 [lb_av] Co mmon [facility] temperature 2021-12-02 09:50:00 97.3 [degF] Com mon [facility] bmi 2021-12-02 09:50:00 25.7 kg/m2 Commo n [facility] oximetry 2021-12-02 09:50:00 99 % Commo n [facility] respiratory rate 2021-12-02 09:50:00 17 /min Common [facility] blood pressure systolic 2021-12-02 09:50:00 119 mm[Hg] [facility] blood pressure diastolic 2021-12-02 09:50:00 58 mm[Hg] Common [facility] height 2021-10-06 15:00:00 60 [in_i] Commo n [facility] weight 2021-10-06 15:00:00 132.4 [lb_av] Co mmon [facility] bmi 2021-10-06 15:00:00 25.85 kg/m2 Comm on [facility] blood pressure systolic 2021-10-06 15:00:00 104 mm[Hg] Common [facility] blood pressure diastolic 2021-10-06 15:00:00 58 mm[Hg] Common [facility] height 2021-09-07 14:30:00 60 [in_i] Commo n [facility] weight 2021-09-07 14:30:00 132 [lb_av] Comm on [facility] bmi 2021-09-07 14:30:00 25.78 kg/m2 Comm on [facility] blood pressure systolic 2021-09-07 14:30:00 134 mm[Hg] [facility] blood pressure diastolic 2021-09-07 14:30:00 84 mm[Hg] Common [facility] height 2021-07-30 14:30:00 60 [in_i] Commo n [facility] weight 2021-07-30 14:30:00 132 [lb_av] Comm on [facility] temperature 2021-07-30 14:30:00 98.0 [degF] Com [facility] bmi 2021-07-30 14:30:00 25.78 kg/m2 Comm on [facility] blood pressure systolic 2021-07-30 14:30:00 112 mm[Hg] [facility] blood pressure diastolic 2021-07-30 14:30:00 72 mm[Hg] [facility] height 2021-07-06 09:20:00 60 [in_i] Commo n [facility] weight 2021-07-06 09:20:00 131.4 [lb_av] Co on [facility] temperature 2021-07-06 09:20:00 97.9 [degF] Com [facility] bmi 2021-07-06 09:20:00 25.66 kg/m2 Comm on [facility] oximetry 2021-07-06 09:20:00 99 % Commo n [facility] respiratory rate 2021-07-06 09:20:00 18 /min [facility] blood pressure systolic 2021-07-06 09:20:00 121 mm[Hg] [facility] blood pressure diastolic 2021-07-06 09:20:00 57 mm[Hg] Common [facility] height 2021-07-06 08:30:00 60 [in_i] Commo n [facility] weight 2021-07-06 08:30:00 131.4 [lb_av] Co mmon [facility] temperature 2021-07-06 08:30:00 97.9 [degF] Com [facility] bmi 2021-07-06 08:30:00 25.66 kg/m2 Comm on [facility] oximetry 2021-07-06 08:30:00 99 % Commo n [facility] blood pressure systolic 2021-07-06 08:30:00 121 mm[Hg] [facility] blood pressure diastolic 2021-07-06 08:30:00 57 mm[Hg] [facility] height 2021-05-28 14:45:00 60 [in_i] Commo n [facility] weight 2021-05-28 14:45:00 132 [lb_av] Comm on [facility] temperature 2021-05-28 14:45:00 97.8 [degF] Com [facility] bmi 2021-05-28 14:45:00 25.78 kg/m2 Comm on [facility] blood pressure systolic 2021-05-28 14:45:00 124 mm[Hg] [facility] blood pressure diastolic 2021-05-28 14:45:00 80 mm[Hg] [facility] height 2021-05-21 14:30:00 60 [in_i] Commo n [facility] weight 2021-05-21 14:30:00 132 [lb_av] Comm on [facility] temperature 2021-05-21 14:30:00 97.6 [degF] Com [facility] bmi 2021-05-21 14:30:00 25.78 kg/m2 Comm on [facility] blood pressure systolic 2021-05-21 14:30:00 112 mm[Hg] [facility] blood pressure diastolic 2021-05-21 14:30:00 74 mm[Hg] [facility] height 2021-05-14 14:30:00 60 [in_i] Commo n [facility] weight 2021-05-14 14:30:00 132 [lb_av] Comm on [facility] temperature 2021-05-14 14:30:00 98.0 [degF] Com [facility] bmi 2021-05-14 14:30:00 25.78 kg/m2 Comm on [facility] blood pressure systolic 2021-05-14 14:30:00 100 mm[Hg] Common [facility] blood pressure diastolic 2021-05-14 14:30:00 60 mm[Hg] [facility] height 2021-04-20 09:30:00 60 [in_i] Commo n [facility] weight 2021-04-20 09:30:00 132 [lb_av] Comm on [facility] bmi 2021-04-20 09:30:00 25.78 kg/m2 Comm on [facility] height 2021-04-07 09:30:00 60 [in_i] Commo n [facility] weight 2021-04-07 09:30:00 132.6 [lb_av] Co [facility] temperature 2021-04-07 09:30:00 97.7 [degF] Com [facility] bmi 2021-04-07 09:30:00 25.89 kg/m2 Comm on [facility] oximetry 2021-04-07 09:30:00 97 % Commo n [facility] respiratory rate 2021-04-07 09:30:00 16 /min Common [facility] blood pressure systolic 2021-04-07 09:30:00 121 mm[Hg] [facility] blood pressure diastolic 2021-04-07 09:30:00 56 mm[Hg] Common [facility] height 2021-03-26 09:50:00 60 [in_i] Commo n [facility] weight 2021-03-26 09:50:00 131.4 [lb_av] Co [facility] temperature 2021-03-26 09:50:00 97.5 [degF] Com [facility] bmi 2021-03-26 09:50:00 25.66 kg/m2 Comm on [facility] oximetry 2021-03-26 09:50:00 98 % Commo n [facility] respiratory rate 2021-03-26 09:50:00 17 /min [facility] blood pressure systolic 2021-03-26 09:50:00 113 mm[Hg] [facility] blood pressure diastolic 2021-03-26 09:50:00 56 mm[Hg] [facility] Body height 2020-11-19 18:36:00 152.4 cm [facility] Body weight 2020-11-19 18:36:00 56.9 kg [facility] BMI 2020-11-19 18:36:00 24.50 kg/m2 [facility] Body height 2020-07-17 14:33:00 152.4 cm [facility] Body weight 2020-07-17 14:33:00 56.881 kg [facility] BMI 2020-07-17 14:33:00 24.49 kg/m2 [facility] BP Systolic 2023-09-28 09:00:00 120 mm[Hg] Step hen [facility] [place] BP Diastolic 2023-09-28 09:00:00 84 mm[Hg] Stepan phen [facility] [place] Weight Measured 2023-09-28 09:00:00 136.00 pounds Sergio F [facility] Height Measured 2023-09-28 09:00:00 59.00 inches Sergio [facility] Body Temperature 2023-09-28 09:00:00 97.70 degrees Sergio [facility] Heart Rate 2023-09-28 09:00:00 71.00 /min Leticia en F [facility] Respiratory Rate 2023-09-28 09:00:00 18.00 /min Sergio [facility] BP Systolic 2023-07-26 11:19:00 130 mm[Hg] Step hen [facility] BP Diastolic 2023-07-26 11:19:00 84 mm[Hg] Stepan phen F [facility] Weight Measured 2023-07-26 11:19:00 138.00 pounds Sergio F [facility] Height Measured 2023-07-26 11:19:00 59.00 inches Sergio [facility] Body Temperature 2023-07-26 11:19:00 97.20 degrees Sergio F [facility] Heart Rate 2023-07-26 11:19:00 70.00 /min Leticia en [facility] Respiratory Rate 2023-07-26 11:19:00 18.00 /min Sergio F [facility] BP Systolic 2023-03-16 13:19:00 114 mm[Hg] Step hen [facility] BP Diastolic 2023-03-16 13:19:00 76 mm[Hg] Stepan phen F [facility] Weight Measured 2023-03-16 13:19:00 140.00 pounds Sergio F [facility] Height Measured 2023-03-16 13:19:00 59.00 inches Sergio F [facility] Body Temperature 2023-03-16 13:19:00 98.70 degrees Sergio F [facility] Heart Rate 2023-03-16 13:19:00 71.00 /min Leticia en [facility] Respiratory Rate 2023-03-16 13:19:00 20.00 /min Sergio F [facility] BP Systolic 2023-03-01 13:19:00 120 mm[Hg] Step hen [facility] BP Diastolic 2023-03-01 13:19:00 72 mm[Hg] Stepan phen F [facility] Weight Measured 2023-03-01 13:19:00 140.00 pounds Sergio F [facility] Height Measured 2023-03-01 13:19:00 59.00 inches Sergio F [facility] Body Temperature 2023-03-01 13:19:00 99.00 degrees Sergio F [facility] Heart Rate 2023-03-01 13:19:00 73.00 /min Leticia en F [facility] Respiratory Rate 2023-03-01 13:19:00 20.00 /min Sergio F [facility] BP Systolic 2023-01-31 14:17:00 138 mm[Hg] Step hen F [facility] BP Diastolic 2023-01-31 14:17:00 82 mm[Hg] Stepan phen F [facility] Weight Measured 2023-01-31 14:17:00 140.00 pounds Sergio F [facility] Height Measured 2023-01-31 14:17:00 59.00 inches Sergio F [facility] Body Temperature 2023-01-31 14:17:00 97.90 degrees Sergio F [facility] Heart Rate 2023-01-31 14:17:00 77.00 /min Leticia en [facility] Respiratory Rate 2023-01-31 14:17:00 20.00 /min Sergio F [facility] BP Systolic 2022-12-20 11:14:00 132 mm[Hg] Step hen F [facility] BP Diastolic 2022-12-20 11:14:00 45 mm[Hg] Stepan phen F [facility] Weight Measured 2022-12-20 11:14:00 138.00 pounds Sergio F [facility] Height Measured 2022-12-20 11:14:00 59.00 inches Sergio F [facility] Body Temperature 2022-12-20 11:14:00 97.50 degrees Sergio F [facility] Heart Rate 2022-12-20 11:14:00 66.00 /min Leticia en F [facility] Respiratory Rate 2022-12-20 11:14:00 20.00 /min Sergio F [facility] BP Systolic 2022-12-15 09:51:00 132 mm[Hg] Step hen F [facility] BP Diastolic 2022-12-15 09:51:00 84 mm[Hg] Stepan phen [facility] Weight Measured 2022-12-15 09:51:00 140.00 pounds Sergio F [facility] Height Measured 2022-12-15 09:51:00 59.00 inches Sergio F [facility] Body Temperature 2022-12-15 09:51:00 98.20 degrees Sergio F [facility] Heart Rate 2022-12-15 09:51:00 90.00 /min Leticia en [facility] Respiratory Rate 2022-12-15 09:51:00 20.00 /min Sergio F [facility] BP Systolic 2022-12-06 11:55:00 99 mm[Hg] Step hen F [facility] BP Diastolic 2022-12-06 11:55:00 57 mm[Hg] Stepan phen [facility] Weight Measured 2022-12-06 11:55:00 138.00 pounds Sergio F [facility] Height Measured 2022-12-06 11:55:00 59.00 inches Sergio F [facility] Body Temperature 2022-12-06 11:55:00 98.10 degrees Sergio F [facility] Heart Rate 2022-12-06 11:55:00 85.00 /min Leticia en [facility] Respiratory Rate 2022-12-06 11:55:00 22.00 /min Sergio F [facility] Systolic blood pressure 2022-06-15 17:07:00 109 mm[Hg] [facility] Diastolic blood pressure 2022-06-15 17:07:00 64 mm[Hg] [place] [facility] Heart rate 2022-06-15 17:07:00 69 /min [facility] Body temperature 2022-06-15 17:07:00 36.5 [place] [facility] Respiratory rate 2022-06-15 17:07:00 17 /min [facility] Oxygen saturation in Arterial blood by Pulse oximetry 2022-06-15 17:07:00 93 /min [place] [facility] Body weight 2022-06-14 06:00:00 56 kg [facility] BMI 2022-06-14 06:00:00 24.11 kg/m2 [facility] Body height 2020-11-25 14:44:00 152.4 cm [facility] Procedures Procedure Date / Time Performed Performing Clinician Source REFERRAL- REQUEST/RESPONSE 2022-12-04 05:01:00 Doctor Unassigned, Alcova [facility] EXTERNAL PROVIDER RECORDS 2022-06-23 06:01:00 Doctor Unassigned, Alcova [facility] CBC WITHOUT DIFF 2022-06-16 11:54:00 Lavon Monge [facility] CBC WITHOUT DIFF 2022-06-16 11:54:00 Lavon Monge [facility] MAGNESIUM 2022-06-15 21:55:00 Lavon Monge [facility] BASIC METABOLIC PANEL (NA, K , CL, CO2, GLUCOSE, BUN, CREATININE, CA) 2022-06-15 21:55:00 Lavon Monge [facility] CBC WITH DIFF 2022-06-15 21:55:00 Lavon Monge [facility] MAGNESIUM 2022-06-15 21:55:00 Lavon Monge [facility] BASIC METABOLIC PANEL (NA, K , CL, CO2, GLUCOSE, BUN, CREATININE, CA) 2022-06-15 21:55:00 Lavon Monge [facility] CBC WITH DIFF 2022-06-15 21:55:00 Lavon Monge [facility] ESOPHAGOGASTRODUODENOSCOPY 2022-06-15 19:37:00 Alexandru Austin [facility] ESOPHAGOGASTRODUODENOSCOPY 2022-06-15 19:37:00 Alexandru Austin [facility] EGD (ENDO) 2022-06-15 18:33:01 Tiffani Darby [facility] EGD (ENDO) 2022-06-15 18:33:01 DarbyKathrynna [facility] CBC WITHOUT DIFF 2022-06-14 [facility]:38[facility]:38[facility]22-06-14 22:38[facility]FF 2022-06-14 22:38:00 [facility] 2022-06-14 22:38[facility]FF 2022-06-14 22:38:00 Lavon Monge [facility] HB ECG ROUTINE & RHYTHM STRIP 2022-06-14 16:53:14 Kristan Monroe [facility] HB ECG ROUTINE & RHYTHM STRIP 2022-06-14 16:53:14 Kristan Monroe [facility] HB ECG ROUTINE & RHYTHM STRIP 2022-06-14 16:53:14 Kristan Monroe [facility] HB ECG ROUTINE & RHYTHM STRIP 2022-06-14 16:51:07 Noni [facility] HB ECG ROUTINE & RHYTHM STRIP 2022-06-14 16:51:07 Noni [facility] HB ECG ROUTINE & RHYTHM STRIP 2022-06-14 16:51:07 Noni [facility] URINALYSIS 2022-06-14 09:50:00 Noni [facility] URINE CULTURE 2022-06-14 09:50:00 Loglisa [facility] URINALYSIS 2022-06-14 09:50:00 Loglisa [facility] URINE CULTURE 2022-06-14 09:50:00 Loglisa [facility] URINALYSIS 2022-06-14 09:[facility]W 2022-06-14 09:37:00 Loghidawna [facility] XR CHEST 1 VW 2022-06-14 09:37:00 Loghidawna, [facility] XR CHEST 1 VW 2022-06-14 09:37:00 Loglisa [facility] CBC WITH DIFF 2022-06-14 07:13:00 Loglisa [facility] COMP. METABOLIC PANEL (32274) 2022-06-14 07:13:00 Loglisa [facility] THYROID STIMULATING HORMONE 2022-06-14 07:13:00 Loglisa [facility] FREE T4 2022-06-14 07:13:00 Loglisa [facility] MAGNESIUM 2022-06-14 07:13:00 Loglisa [facility] PHOSPHORUS 2022-06-14 07:13:00 Loglisa [facility] GLYCOSYLATED HEMOGLOBIN (A1C) 2022-06-14 07:13:00 Loglisa [facility] LIPID PANEL (69714)(TOTAL CHOLESTEROL, TRIGLYCERIDES, HDL) 2022-06-14 07:13:00 Loglisa [facility] PROTHROMBIN TIME / INR 2022-06-14 07:13:00 Loglisa [facility] N-TERMINAL PRO-BNP 2022-06-14 07:13:00 Loghidawna [facility] TROPONIN I 2022-06-14 07:13:00 Loglisa [facility] PROCALCITONIN 2022-06-14 07:13:00 Loglisa [facility] COVID-19 (ID NOW RAPID TESTING) 07:13:00 Loghidawna [facility] GALV ONLY - INFLUENZA A B RSV PCR - 07:13:00 Loghidawna [facility] IRON PANEL 2022-06-14 07:13:00 Loghin, [facility] FERRITIN SERUM 2022-06-14 07:13:00 Loghin, [facility] VITAMIN B12, LEVEL 2022-06-14 07:13:00 Loghin, [facility] FOLATE 2022-06-14 07:13:00 Loghin, [facility] LAB ONLY COVID INTERPRETATION 2022-06-14 07:13:00 Loghin, [facility] PHOSPHORUS 2022-06-14 07:13:00 Loghin, [facility] MAGNESIUM 2022-06-14 07:13:00 Loghin, [facility] FERRITIN SERUM 2022-06-14 07:13:00 Loghin, [facility] VITAMIN B12, LEVEL 2022-06-14 07:13:00 Loghin, [facility] FOLATE 2022-06-14 07:13:00 Loghin, [facility] TROPONIN I 2022-06-14 07:13:00 Loghin, [facility] FREE T4 2022-06-14 07:13:00 Loghin, [facility] THYROID STIMULATING HORMONE 2022-06-14 07:13:00 Loghin, [facility] COMP. METABOLIC PANEL ([id number]) 2022-06-14 07:13:00 Loghin, [facility] LIPID PANEL ([id number])(TOTAL CHOLESTEROL, TRIGLYCERIDES, HDL) 2022-06-14 07:13:00 Loghin, [facility] IRON PANEL 2022-06-14 07:13:00 Loghin, [facility] CBC WITH DIFF 2022-06-14 07:13:00 Loghin [facility] GLYCOSYLATED HEMOGLOBIN (A1C) 2022-06-14 07:13:00 Loghin [facility] PROTHROMBIN TIME / INR 2022-06-14 07:13:00 Loghin, [facility] GALV ONLY - INFLUENZA A B RSV PCR - 07:13:00 Loglisa [facility] N-TERMINAL PRO-BNP 2022-06-14 07:13:00 Loghin [facility] PROCALCITONIN 2022-06-14 07:13:00 Loghidawna, [facility] COVID-19 (ID NOW RAPID TESTING) 07:13:00 Loghidawna [facility] LAB ONLY COVID INTERPRETATION 2022-06-14 07:13:00 Loghin, [facility] PHOSPHORUS 2022-06-14 07:13:00 Loghin, [facility] MAGNESIUM 2022-06-14 07:13:00 Loghidawna [facility] FERRITIN SERUM 2022-06-14 07:13:00 Loghidawna [facility] VITAMIN B12, LEVEL 2022-06-14 07:13:00 Loghin [facility] FOLATE 2022-06-14 07:13:00 Loghin [facility] TROPONIN I 2022-06-14 07:13:00 Loghin, [facility] FREE T4 2022-06-14 07:13:00 Loghidawna [facility] THYROID STIMULATING HORMONE 2022-06-14 07:13:00 Loghidawna, [facility] COMP. METABOLIC PANEL ([id number]) 2022-06-14 07:13:00 Loghidawna [facility] LIPID PANEL ([id number])(TOTAL CHOLESTEROL, TRIGLYCERIDES, HDL) 2022-06-14 07:13:00 Loghidawna [facility] IRON PANEL 2022-06-14 07:13:00 Loglisa [facility] CBC WITH DIFF 2022-06-14 07:13:00 Loghidawna [facility] GLYCOSYLATED HEMOGLOBIN (A1C) 2022-06-14 07:13:00 Loglisa [facility] PROTHROMBIN TIME / INR 2022-06-14 07:13:00 Loghidawna [facility] GALV ONLY - INFLUENZA A B RSV PCR 06-14 07:13:00 Nate Cheney [facility] N-TERMINAL PRO-BNP 2022-06-14 07:13:00 Nate Cheney [facility] PROCALCITONIN 2022-06-14 07:13:00 Nate Cheney [facility] COVID-19 (ID NOW RAPID TESTING) 07:13:00 Nate Cheney [facility] LAB ONLY COVID INTERPRETATION 2022-06-14 07:13:00 Nate Cheney [facility] Encounters Start Date/Time End Date/Time Encounter Type Admission Type Attending [facility] Facility Care Department Encounter ID Source 2022-12-21 14:09:06 Outpatient [facility] [id number] [facility] 2022-12-03 10:02:37 Outpatient [facility] [id number] [facility] 2022-12-01 09:03:31 Outpatient [facility] [id number] [facility] 2022-09-08 10:20:56 Outpatient [facility] [id number] [facility] 2022-08-30 10:41:01 Outpatient [facility] [id number] [facility] 2022-08-23 10:00:40 Outpatient [facility] [id number] [facility] 2022-08-18 16:34:00 Outpatient Santi [facility] [id number] [facility] 2022-08-13 12:11:39 Outpatient [facility] [id number] [facility] 2022-08-12 13:17:04 Outpatient [facility] [id number] [facility] 2022-07-21 13:35:27 Outpatient [facility] [id number] [facility] 2022-06-24 08:59:26 Outpatient [facility] [id number] [facility] 2022-06-03 16:40:39 Outpatient [facility] [id number] [facility] 2022-05-31 11:39:01 Outpatient Hancock, Nirmal [facility] [id number] [facility] 2022-05-19 14:43:00 Outpatient Hancock, Nirmal [facility] ST[facility] [id number] [facility] 2022-04-23 11:17:01 Outpatient Hancock, Nirmal [facility] ST[facility] [id number] [facility] 2022-04-17 11:08:00 Outpatient Hancock, Nirmal [facility] ST[facility] [id number] [facility] 2022-01-06 13:28:00 Outpatient Hancock, Nirmal [facility] ST[facility] [id number] [facility] 2021-11-02 09:01:18 Outpatient Hancock, Nirmal [facility] ST[facility] [id number] [facility] 2021-09-21 13:05:01 Outpatient Hancock, Nirmal [facility] [id number] [facility] 2021-07-29 10:19:01 Outpatient Hancock, Nirmal [facility] ST[facility] [id number] [facility] 2021-07-08 14:39:04 Outpatient H[place], Nirmal [facility] ST[facility] [id number] [facility] 2021-07-08 14:11:57 Outpatient H[place], Nirmal [facility] ST[facility] [id number] [facility] 2021-07-08 14:09:54 Outpatient Hancock, Nirmal [facility] ST[facility] [id number] [facility] 2021-07-08 12:46:03 Outpatient Hancock, Nirmal [facility] ST[facility] [id number] [facility] 2021-07-08 12:36:17 Outpatient Hancock, Nirmal [facility] ST[facility] [id number] [facility] 2021-07-08 12:17:58 [facility] [id number] [facility] 2021-07-08 11:28:21 [facility] [id number] [facility] 2021-07-08 11:18:20 Outpatient H[place], [facility] [id number] [facility] 2021-07-08 11:13:47 [facility] [id number] [facility] 2021-07-08 11:09:58 [facility] [id number] [facility] 2021-07-08 11:08:14 Outpatient Hancock, [facility] [id number] [facility] 2021-04-13 11:39:26 Outpatient R NIVIA BESS [facility] GIE [id number] [facility] 2021-04-12 23:35:55 Outpatient R NIVIA BESS [facility] [id number] [facility] 2021-04-11 21:31:44 Outpatient Azam NIVIA BESS [facility] [id number] [facility] 2023-11-29 10:15:00 2023-11-29 10:15:00 Outpatient JODY ALBRECHT [facility] [id number] [facility] 2023-09-28 08:52:37 2023-09-28 08:52:37 Outpatient SFA SFA [id number] Sergio Hayes 2023-09-28 00:00:00 2023-09-28 00:00:00 Outpatient Visit DONNY [id number] Sergio Hayes 2023-09-27 10:45:00 2023-09-27 11:03:25 Office Visit Jody Albrecht [facility] 2 [id number] [facility] 2023-08-11 00:00:00 2023-08-11 00:00:00 (TEL) [facility] [id number] [facility] 2023-08-02 00:00:00 2023-08-02 14:30:00 Outpatient [facility] [id number] [facility] 2023-08-02 11:30:00 2023-08-02 14:29:53 Office Visit JODY ALBRECHT [facility] [facility] 1.2.840.114 350.1.13.58 9.2.7.2.686 [id number] [facility] 2023-07-26 11:18:45 2023-07-26 11:18:45 Outpatient SFA [facility] [id number] Sergio Hayes 2023-06-28 11:00:00 2023-06-28 11:00:00 Outpatient JODY ALBRECHT [facility] [id number] [facility] 2023-05-31 13:45:00 2023-05-31 13:45:00 Office Visit Ambrocio, Jody [facility] [place] [facility] 1.2.840.114 350.1.13.58 9.2.7.2.686 [id number] [facility] 2023-05-31 13:45:00 2023-05-31 13:32:51 Outpatient [facility] [id number] [facility] 2023-05-18 08:45:00 2023-05-18 08:45:00 Outpatient JODY ALBRECHT [facility] [id number] [facility] 2023-03-16 13:16:32 2023-03-16 13:16:32 Outpatient SFA SFA [id number] Sergio Hayes 2023-03-01 13:36:49 2023-03-01 13:36:49 Outpatient SFA SFA [id number] Sergio Hayes 2023-01-31 14:05:12 2023-01-31 14:05:12 Outpatient SFA [facility] [id number] Sergio Hayes 2022-12-24 00:00:00 2022-12-24 00:00:00 Letter (Out) Nirmal Hancock [facility] 1.2.840.114 350.1.13.10 4.2.7.2.686 [id number] [facility] 2022-12-20 11:12:06 2022-12-20 11:12:06 Outpatient [facility] [id number] Sergio Charles [place] 2022-12-15 09:50:22 2022-12-15 09:50:22 Outpatient [facility] [id number] Sergio Charles [place] 2022-12-06 12:01:00 2022-12-06 12:01:00 Outpatient [facility] [id number] Sergio Charles [place] 2022-12-04 00:00:00 2022-12-04 00:00:00 Orders Only Doctor Unassigned, Alcova [facility] 1.2.840.114 350.1.13.10 4.2.7.2.686 [id number] [facility] 2022-11-30 00:00:00 2022-11-30 00:00:00 OFF[facility]IT [facility] PT LEVEL 4 [facility] [id number] [facility] 2022-11-30 00:00:00 2022-11-30 00:00:00 SUB ANNUAL [facility] WELLNESS VISIT [facility] [id number] [facility] 2022-11-30 00:00:00 2022-11-30 00:00:00 (TEL) [facility] [id number] [facility] 2022-11-30 00:00:00 2022-11-30 00:00:00 (TEL) [facility] [id number] [facility] 2022-11-11 13:00:00 2022-11-11 14:42:42 Office Visit Jody Albrecht [facility] [place] [facility] 1.0.114 350.1.13.58 9.2.7.2.686 [id number] [facility] 2022-09-15 00:00:00 2022-09-15 00:00:00 Tele[address] Steele [facility] 1.840.114 350.1.13.10 4.2.7.2.686 [id number] [facility] 2022-09-14 11:30:00 2022-09-14 11:30:00 Outpatient LUPE DHALIWAL [facility] [id number] [facility] 2022-08-12 00:00:00 2022-08-12 15:52:50 Outpatient [facility] [id number] [facility] 2022-08-12 13:15:00 2022-08-12 14:24:05 Office Visit Jody Albrecht [facility] 2 1..114 350.1.13.58 9.2.7.2.686 [id number] [facility] 2022-07-21 00:00:00 2022-07-21 00:00:00 (TEL) [facility]C [facility] [id number] [facility] 2022-06-23 00:00:00 2022-06-23 00:00:00 Orders Only Doctor Unassigned, Alcova [facility] 1..114 350.1.13.10 4.2.7.2.686 [id number] [facility] 2022-06-22 11:00:00 2022-06-22 11:00:00 Outpatient JODY ALBRECHT [facility] [id number] [facility] 2022-06-17 00:00:00 2022-06-17 00:00:00 Transition of Care [facility] [place] 1.0.114 350.1.13.10 4.2.7.2.686 [id number] [facility] 2022-06-13 23:46:00 2022-06-16 15:23:00 Inpatient U TIFFANI DARBY MYRNA [facility] JAYE [id number] [facility] 2022-06-13 23:46:00 2022-06-16 15:23:00 Hospital Encounter Tiffani Darby [facility] 1.2.840.114 350.1.13.10 4.2.7.2.686 [id number] [facility] 2022-06-15 12:52:00 2022-06-15 12:52:00 Anesthesia Event Sharif Castañeda 1.2.840.1 20747.1.1 3.104.2.7 .3.294502 .8 [id number] [facility] 2022-06-15 09:23:00 2022-06-15 09:59:00 Surgery Alexandru Austin [facility] 1.2.840.114 350.1.13.10 4.2.7.2.686 [id number] [facility] 2022-06-14 12:05:59 2022-06-14 12:05:59 Anesthesia Event Kristan Monroe 1.2.840.1 41608.1.1 3.104.2.7 .3.026159 .8 [id number] [facility] 2022-06-14 00:00:00 2022-06-14 00:00:00 Travel 1.2.840.1 12015.1.1 3.104.2.7 .3.649303 .8 1.2.840.114 350.1.13.10 4.2.7.3.698 [id number] [facility] 2022-06-02 00:00:00 2022-06-02 00:00:00 (TEL) [facility] [id number] [facility] 2022-06-01 00:00:00 2022-06-01 00:00:00 (TEL) STLMLC [facility] [id number] [facility] 2022-05-31 00:00:00 2022-05-31 00:00:00 OFFICE VISIT EST PT LEVEL 3 [facility] [id number] [facility] 2022-05-25 00:00:00 2022-05-25 00:00:00 (TEL) STLMLC [facility] [id number] [facility] 2022-05-20 00:00:00 2022-05-20 00:00:00 OFFICE VISIT ESTAB PT LEVEL 4 [facility] [id number] [facility] 2022-04-23 00:00:00 2022-04-23 00:00:00 (TEL) STLMLC [facility] [id number] [facility] 2022-04-16 00:00:00 2022-04-16 00:00:00 (TEL) STLMLC [facility] [id number] [facility] 2022-03-30 00:00:00 2022-03-30 00:00:00 (TEL) STLMLC [facility] [id number] [facility] 2022-03-24 00:00:00 2022-03-24 00:00:00 (HOSP F/U) Hospital Follow Up STLMLC ST[facility] [id number] [facility] 2022-03-14 00:00:00 2022-03-14 00:00:00 (TEL) STLMLC [facility] [id number] [facility] 2022-03-10 00:00:00 2022-03-10 00:00:00 (TEL) STLMLC [facility] [id number] [facility] 2022-03-09 00:00:00 2022-03-09 00:00:00 (TEL) STLMLC ST[facility] [id number] [facility] 2022-02-03 00:00:00 2022-02-03 00:00:00 (TEL) STLMLC ST[facility] [id number] [facility] 2022-01-08 00:00:00 2022-01-08 00:00:00 (TEL) STLMLC ST[facility]C [id number] [facility] 2022-01-05 00:00:00 2022-01-05 00:00:00 OFFICE VISIT ESTAB PT LEVEL 4 [facility]LMLC [facility] [id number] [facility] 2021-12-07 00:00:00 2021-12-07 00:00:00 (TEL) STLMLC ST[facility]MLC [id number] [facility] 2021-12-02 00:00:00 2021-12-02 00:00:00 OFFICE VISIT ESTAB PT LEVEL 4 [facility]C [facility] [id number] [facility] 2021-10-06 00:00:00 2021-10-06 00:00:00 OFFICE VISIT ESTAB PT LEVEL 4 [facility]C [facility] [id number] [facility] 2021-09-07 00:00:00 2021-09-07 00:00:00 OFFICE VISIT ESTAB PT LEVEL 4 [facility]LMLC [facility] [id number] [facility] 2021-08-13 00:00:00 2021-08-13 00:00:00 (TEL) STLMLC STLMLC [id number] [facility] 2021-07-31 00:00:00 2021-07-31 00:00:00 (TEL) STLMLC [facility] [id number] [facility] 2021-07-30 00:00:00 2021-07-30 00:00:00 OFFICE VISIT ESTAB PT LEVEL 4 STLMLC [facility] [id number] [facility] 2021-07-19 00:00:00 2021-07-19 00:00:00 Refill Nivia Bess [facility] ([facility]) 1.2.840.114 350.1.13.10 4.2.7.2.686 [id number] [facility] 2021-07-06 00:00:00 2021-07-06 00:00:00 OFFICE VISIT ESTAB PT LEVEL 4 STLMLC ST[facility] [id number] [facility] 2021-07-06 00:00:00 2021-07-06 00:00:00 SUB ANNUAL [facility] WELLNESS VISIT STLMLC STLMLC [id number] [facility] 2021-07-03 00:00:00 2021-07-03 00:00:00 (TEL) STLMLC STLMLC [id number] [facility] 2021-06-23 00:00:00 2021-06-23 00:00:00 (TEL) STLMLC STLMLC [id number] [facility] 2021-06-22 00:00:00 2021-06-22 00:00:00 (TEL) STLMLC STLMLC [id number] [facility] 2021-05-28 00:00:00 2021-05-28 00:00:00 (IN/ASP) INJ ASP STLMLC STLMLC [id number] [facility] 2021-05-21 00:00:00 2021-05-21 00:00:00 (IN/ASP) INJ ASP STLMLC STLMLC [id number] [facility] 2021-05-14 00:00:00 2021-05-14 00:00:00 (IN/ASP) INJ ASP STLMLC STLMLC [id number] [facility] 2021-04-28 00:00:00 2021-04-28 00:00:00 (TEL) STLMLC STLMLC [id number] [facility] 2021-04-27 00:00:00 2021-04-27 00:00:00 (TEL) STLMLC STLMLC [id number] [facility] 2021-04-24 00:00:00 2021-04-24 00:00:00 (TEL) STLMLC STLMLC [id number] [facility] 2021-04-20 00:00:00 2021-04-20 00:00:00 OFFICE VISIT NEW PT LEVEL 4 [facility]LMLC [facility] [id number] [facility] 2021-04-07 00:00:00 2021-04-07 00:00:00 (HOSP F/U) Hospital Follow Up STLMLC STLMLC [id number] [facility] 2021-04-02 00:00:00 2021-04-02 00:00:00 (TEL) STLMLC STLMLC [id number] [facility] 2021-03-26 00:00:00 2021-03-26 00:00:00 OFFICE VISIT ESTAB PT LEVEL 4 [facility]LMLC [facility] [id number] [facility] 2021-03-03 00:00:00 2021-03-03 00:00:00 Outpatient STLMLC [facility] [id number] [facility] 2021-02-27 00:00:00 2021-02-27 00:00:00 Outpatient STLMLC [facility] [id number] [facility] 2021-02-25 00:00:00 2021-02-25 00:00:00 Outpatient STLMLC [facility] [id number] [facility] 2021-01-21 00:00:00 2021-01-21 00:00:00 Outpatient STLMLC [facility] [id number] [facility] 2021-01-19 00:00:00 2021-01-19 00:00:00 Outpatient STLMLC ST[facility] [id number] [facility] 2021-01-16 11:30:00 2021-01-16 11:30:00 Outpatient R [facility] [id number] [facility] 2021-01-14 08:50:00 2021-01-14 08:55:00 Pre-Anesth esia Evaluation Call, Clc Apa Phone [facility] ([facility]) 1.2.840.114 350.1.13.10 4.2.7.2.686 [id number] [facility] 2021-01-13 07:25:00 2021-01-13 07:30:00 Pre-Anesth esia Evaluation Call, [facility] Apac Phone [facility] ([facility]) 1.2840.114 350.1.13.10 4.2.7.2.686 [id number] [facility] 2020-12-24 00:00:00 2020-12-24 00:00:00 Outpatient STLMLC ST[facility] [id number] [facility] 2020-12-24 00:00:00 2020-12-24 00:00:00 Outpatient STLMLC ST[facility] [id number] [facility] 2020-12-24 00:00:00 2020-12-24 00:00:00 Outpatient STLMLC ST[facility] [id number] [facility] 2020-12-19 00:00:00 2020-12-19 00:00:00 Outpatient STLMLC STLML[facility] [id number] [facility] 2020-12-18 00:00:00 2020-12-18 00:00:00 Outpatient STLMLC STLMLC [id number] [facility] 2020-11-25 09:18:00 2020-11-25 13:13:00 Hospital Encounter Nivia Bess [facility] ([facility]) 1.2840.114 350.1.13.10 4.2.7.2.686 [id number] 2020-11-25 11:00:00 2020-11-25 12:14:00 Surgery [facility] ([facility]) 1.2840.114 350.1.13.10 4.2.7.2.686 [id number] 2020-11-25 00:00:00 2020-11-25 00:00:00 Orders Only Doctor Unassigned, Alcova [facility] 1.2.840.114 350.1.13.10 4.2.7.2.686 [id number] 2020-11-25 00:00:00 2020-11-25 00:00:00 Prep For Surgery [facility] 1.2.840.114 350.1.13.10 4.2.7.2.686 [id number] 2020-11-25 00:00:00 2020-11-25 00:00:00 Refill [facility] ([facility]) 1.2.840.114 350.1.13.10 4.2.7.2.686 [id number] 2020-11-25 00:00:00 2020-11-25 00:00:00 Refill [facility] ([facility]) 1.2.840.114 350.1.13.10 4.2.7.2.686 [id number] 2020-11-24 07:55:00 2020-11-24 08:00:00 Pre-Anesth esia Evaluation Call, [facility] Apac Phone [facility] ([facility]) 1.2.840.114 350.1.13.10 4.2.7.2.686 [id number] [facility] 2020-11-21 12:15:00 2020-11-21 12:20:00 Pre-Anesth esia Evaluation Call, [facility] Apac Phone [facility] ([facility]) 1.2.840.114 350.1.13.10 4.2.7.2.686 [id number] [facility] 2020-11-19 13:30:00 2020-11-19 13:35:00 Pre-Anesth esia Evaluation Call, [facility] Apac Phone [facility] ([facility]) 1.2.840.114 350.1.13.10 4.2.7.2.686 [id number] [facility] 2020-11-14 00:00:00 2020-11-14 00:00:00 Outpatient STLMLC STLMLC [id number] [facility] 2020-11-12 00:00:00 2020-11-12 00:00:00 Outpatient STLMLC STLMLC [id number] [facility] 2020-11-03 00:00:00 2020-11-03 00:00:00 Prep For Surgery [facility] 1.2840.114 350.1.13.10 4.2.7.2.686 [id number] 2020-10-31 00:00:00 2020-10-31 00:00:00 Telephone Maria Elena, [facility] 1.2840.114 350.1.13.10 4.2.7.2.686 [id number] 2020-10-24 00:00:00 2020-10-24 00:00:00 Outpatient STLMLC STLMLC [id number] [facility] 2020-10-15 00:00:00 2020-10-15 00:00:00 Outpatient STLMLC STLMLC [id number] [facility] 2020-07-23 11:51:15 2020-07-23 12:06:15 Laboratory Only Only, Adc Test [facility] 1.2840.114 350.1.13.10 4.2.7.2.686 [id number] 2020-07-23 11:00:00 2020-07-23 11:00:00 Outpatient R [facility] [id number] [facility] 2020-07-23 10:55:00 2020-07-23 11:00:00 Pre-Anesth esia Evaluation Call, Clc Apa Phone [facility] ([facility]) 1.2840.114 350.1.13.10 4.2.7.2.686 [id number] [facility] 2020-07-23 00:00:00 2020-07-23 00:00:00 Orders Only Doctor Unassigned, Alcova [facility] 1.2.840.114 350.1.13.10 4.2.7.2.686 [id number] 2020-07-21 08:35:00 2020-07-21 08:40:00 Pre-Anesth esia Evaluation Call, Clc Apac Phone [facility] ([facility]) 1.2.840.114 350.1.13.10 4.2.7.2.686 [id number] [facility] 2020-07-18 07:25:00 2020-07-18 07:30:00 Pre-Anesth esia Evaluation Call, Clc ApaQReca! Phone [facility] ([facility]) 1.2.840.114 350.1.13.10 4.2.7.2.686 [id number] [facility] 2020-07-18 00:00:00 2020-07-18 00:00:00 Outpatient STLMLC [facility] [id number] [facility] 2020-07-17 08:35:00 2020-07-17 08:40:00 Pre-Anesth esia Evaluation Call, Clc ApaQReca! Phone [facility] ([facility]) 1.2.840.114 350.1.13.10 4.2.7.2.686 [id number] [facility] 2020-07-15 13:45:51 2020-07-15 14:15:51 Office Visit Nivia Bess [facility] 1.2.840.114 350.1.13.10 4.2.7.2.686 [id number] [facility] [id number] 2020-07-15 13:45:00 2020-07-15 13:45:00 Outpatient R NIVIA BESS [facility] [id number] [facility] 2020-06-18 00:00:00 2020-06-18 00:00:00 Outpatient STLMLC STLMLC [id number] [facility] 2020-06-17 08:30:00 2020-06-17 08:30:00 Outpatient JOE HOLLINS [facility] [id number] [facility] 2020-06-09 09:00:00 2020-06-09 09:00:00 Outpatient R [facility] [id number] [facility] 2020-05-15 00:00:00 2020-05-15 00:00:00 Outpatient STLMLC STLMLC [id number] [facility] 2020-05-13 09:00:00 2020-05-13 09:00:00 Outpatient Azam MORALESNORMAJOE [facility] [id number] [facility] 2020-04-17 00:00:00 2020-04-17 00:00:00 Outpatient STLMLC [facility] [id number] [facility] 2020-04-11 00:00:00 2020-04-11 00:00:00 Outpatient STLMLC [facility] [id number] [facility] 2020-04-08 00:00:00 2020-04-08 00:00:00 Outpatient STLMLC [facility] [id number] [facility] 2020-03-20 00:00:00 2020-03-20 00:00:00 Outpatient STLMLC STLMLC [id number] [facility] 2019-12-19 10:45:00 2019-12-19 10:45:[address] [facility] [id number] [facility] 2019-12-19 10:00:00 2019-12-19 10:00:00 [facility] [facility] [id number] [facility] 2019-12-03 10:17:00 2019-12-03 10:17:[address] [facility] [id number] [facility] 2019-12-03 09:59:00 2019-12-03 09:59:[address] [facility] [facility] [id number] [facility] 2019-11-29 09:45:00 2019-11-29 09:45:[address] [facility] [id number] [facility] 2019-11-13 11:17:00 2019-11-13 11:17:[address] [facility] [address] [facility] [id number] [facility] 2019-11-06 15:08:00 2019-11-06 15:08:[address] [facility] [id number] [facility] 2019-11-01 16:03:00 2019-11-01 16:03:00 [facility] [id number] [facility] 2019-10-31 09:15:00 2019-10-31 09:15:00 [facility] [id number] [facility] 2019-10-01 10:00:00 2019-10-01 10:00:00 [facility] [facility] [id number] [facility] 2019-08-27 14:00:00 2019-08-27 14:00:[address] [facility] [id number] [facility] 2019-07-30 11:00:00 2019-07-30 11:00:[address] [facility] [id number] [facility] 2019-07-18 01:45:00 2019-07-18 01:45:[address] [id number] [facility] Outre h Program Results Test Description Test Time Test Comments Results Result Co mments Source [facility] W/AUTO [id number] 00:00:00* Test Item Value Reference Range Interpretation Comme nts WBC (test code = 1001) 7.5 K/UL RBC (test code = 1002) 4.21 M/UL HEMOGLOBIN (test code = 1003) 13.5 G/DL HEMATOCRIT (test code = 1004) 41.1 % MCV (test code = 1005) 97.6 fL MCH (test code = 1006) 32.1 PG MCHC (test code = 1007) 32.8 G/DL RDW (test code = 1038) 12.1 % NEUTROPHILS (test code = 1008) 71.9 % LYMPHOCYTES (test code = 1010) 15.6 % MONOCYTES (test code = 1011) 9.7 % EOSINOPHILS (test code = 1012) 1.6 % BASOPHILS (test code = 1013) 0.9 % IMMATURE GRANULOCYTES (test code = 1036) 0.3 % NUCLEATED RBCS (test code = 1065) 0.0 /100WBC'S PLATELET COUNT (test code = 1015) 515 K/UL ABSOLUTE NEUTROPHILS (test c ode = 1066) 5.39 K/UL ABSOLUTE LYMPHOCYTES (test c ode = 1067) 1.17 K/UL ABSOLUTE MONOCYTES (test cod e = 1068) 0.73 K/UL ABSOLUTE EOSINOPHILS (test c ode = 1040) 0.12 K/UL ABSOLUTE BASOPHILS (test cod e = 1069) 0.07 K/UL ABS IMMATURE GRANULOCYTES (t est code = 1020) 0.02 K/UL ABS NUCLEATED RBCS (test cod e = 21405) 0.00 K/UL Sergio Charles AustinURINALYSIS W/REFLEX [id number] 00:00:00* Test Item Value Reference Range Interpretation Comme nts COLOR (test code = 1501) DARK YELLOW APPEARANCE (test code = 1502) CLEAR SPECIFIC GRAVITY (test code = 1503) 1.029 LEUKOCYTE ESTERASE (test cod e = 1504) NEGATIVE NITRITE (test code = 1505) NEGATIVE pH (test code = 1506) 5.0 PROTEIN (test code = 1507) NEGATIVE GLUCOSE (test code = 1508) NEGATIVE KETONES (test code = 1509) TRACE UROBILINOGEN (test code = 1510) 0.2 MG/DL BILIRUBIN (test code = 1511) NEGATIVE OCCULT BLOOD (test code = 1512) NEGATIVE WHITE BLOOD CELLS (test code = 1513) 0-5 /HPF RED BLOOD CELLS (test code = 1514) 0-2 /HPF EPITHELIAL CELLS (test code = 37279) 0-5 /HPF BACTERIA (test code = 1515) NONE SEEN CASTS, HYALINE (test code = 1517) MODERATE Sergio HayesPROTHROMBIN TIME (PT)2023-03-11 00:00:00* Test Item Value Reference Range Interpretation Comme nts PROTHROMBIN TIME (PT) (test code = 1402) 14.8 SECONDS INR (test code = 66272) 1.1 Sergio HayesCBC W/AUTO [id number] 00:00:00* Test Item Value Reference Range Interpretation Comme nts WBC (test code = 1001) 17.4 K/UL RBC (test code = 1002) 3.54 M/UL HEMOGLOBIN (test code = 1003) 11.4 G/DL HEMATOCRIT (test code = 1004) 35.9 % MCV (test code = 1005) 101.4 fL MCH (test code = 1006) 32.2 PG MCHC (test code = 1007) 31.8 G/DL RDW (test code = 1038) 14.7 % NEUTROPHILS (test code = 1008) 79.4 % LYMPHOCYTES (test code = 1010) 8.0 % MONOCYTES (test code = 1011) 10.8 % EOSINOPHILS (test code = 1012) 0.5 % BASOPHILS (test code = 1013) 0.4 % IMMATURE GRANULOCYTES (test code = 1036) 0.9 % NUCLEATED RBCS (test code = 1065) 0.0 /100WBC'S PLATELET COUNT (test code = 1015) 464 K/UL ABSOLUTE NEUTROPHILS (test c ode = 1066) 13.83 K/UL ABSOLUTE LYMPHOCYTES (test c ode = 1067) 1.39 K/UL ABSOLUTE MONOCYTES (test cod e = 1068) 1.89 K/UL ABSOLUTE EOSINOPHILS (test c ode = 1040) 0.09 K/UL ABSOLUTE BASOPHILS (test cod e = 1069) 0.07 K/UL ABS IMMATURE GRANULOCYTES (t est code = 1020) 0.16 K/UL ABS NUCLEATED RBCS (test cod e = 99858) 0.00 K/UL Sergio HayesLIPID [id number] 00:00:00* Test Item Value Reference Range Interpretation Comme nts CHOLESTEROL (test code = 2210) 216 MG/DL TRIGLYCERIDES (test code = 2232) 291 MG/DL HDL CHOLESTEROL (test code = 2220) 55 MG/DL CALC LDL CHOL (test code = 2237) 116 MG/DL RISK RATIO LDL/HDL (test cod e = 2238) 2.11 RATIO Sergio HayesCOMPREHENSIVE METABOLIC [id number] 00:00:00* Test Item Value Reference Range Interpretation Comme nts GLUCOSE (test code = 2217) 109 MG/DL BUN (test code = 2208) 36 MG/DL CREATININE (test code = 2214) 0.96 MG/DL eGFR (2020 CKD-EPI) (test co de = 10112) 66 ML/MIN/1.73 CALC BUN/CREAT (test code = 2235) 38 RATIO SODIUM (test code = 2231) 139 MEQ/L POTASSIUM (test code = 2228) 5.2 MEQ/L CHLORIDE (test code = 2215) 102 MEQ/L CARBON DIOXIDE (test code = 2206) 23 MEQ/L CALCIUM (test code = 2209) 9.6 MG/DL PROTEIN, TOTAL (test code = 2229) 6.6 G/DL ALBUMIN (test code = 2201) 4.4 G/DL CALC GLOBULIN (test code = 2240) 2.2 G/DL CALC A/G RATIO (test code = 2234) 2.0 RATIO BILIRUBIN, TOTAL (test code = 2207) <0.2 MG/DL ALKALINE PHOSPHATASE (test code = 2204) 117 U/L AST (test code = 2218) 70 U/L ALT (test code = 2219) 58 U/L Sergio Charles AustinURINALYSIS W/REFLEX [id number] 00:00:00* Test Item Value Reference Range Interpretation Comme nts COLOR (test code = 1501) DARK YELLOW APPEARANCE (test code = 1502) CLEAR SPECIFIC GRAVITY (test code = 1503) 1.032 LEUKOCYTE ESTERASE (test cod e = 1504) 1+ NITRITE (test code = 1505) NEGATIVE pH (test code = 1506) 7.5 PROTEIN (test code = 1507) 1+ GLUCOSE (test code = 1508) NEGATIVE KETONES (test code = 1509) TRACE UROBILINOGEN (test code = 1510) 1.0 MG/DL BILIRUBIN (test code = 1511) NEGATIVE OCCULT BLOOD (test code = 1512) NEGATIVE WHITE BLOOD CELLS (test code = 1513) 21-30 /HPF RED BLOOD CELLS (test code = 1514) 3-5 /HPF EPITHELIAL CELLS (test code = 75503) 0-5 /HPF BACTERIA (test code = 1515) 3+ CASTS, HYALINE (test code = 1517) TRACE Sergio [id number] 00:00:00* Test Item Value Reference Range Interpretation Comme nts PTT (test code = 1403) 34.4 SECONDS Sergio HayesBASIC METABOLIC PANEL (NA, K, CL, CO2, GLUCOSE, BUN, CREATININE, CA)2022-06-15 22:23:06* Test Item Value Reference Range Interpretation Comme nts NA (test code = 3927201874) 138 mmol/L 135-145 K (test code = 2095332131) 4.0 mmol/L 3.5-5.0 CL (test code = 7853766147) 106 mmol/L 98-108 CO2 TOTAL (test code = 5283673959) 27 mmol/L 23-31 AGAP (test code = 5988531093) 2-16 BUN (test code = 1991217928) 9 mg/dL 7-23 GLUCOSE (test code = 8574989499) 90 mg/dL 70-110 CREATININE (test code = 7808639281) 0.83 mg/dL 0.50-1.04 CALCIUM (test code = 0158879975) 9.2 mg/dL 8.6-10.6 eGFR (test code = 6015496580) mL/min/1.73m2 PEBBLES (test code = PEBBLES) Association [...] or urine or abnormalities in imaging tests). [facility]* Test Item Value Reference Range Interpretation Comme nts MAGNESIUM (test code = 2636168149) 1.9 mg/dL 1.7-2.4 Lab Interpretation (test cod e = 17503-5) [facility] (NA, K, CL, CO2, GLUCOSE, BUN, CREATININE, CA)2022-06-15 22:23:06* Test Item Value Reference Range Interpretation Comme nts NA (test code = 0598539836) 138 mmol/L 135-145 K (test code = 6602252846) 4.0 mmol/L 3.5-5.0 CL (test code = 2107004994) 106 mmol/L 98-108 CO2 TOTAL (test code = 9829162118) 27 mmol/L 23-31 AGAP (test code = 0043790249) 2-16 BUN (test code = 8169800839) 9 mg/dL 7-23 GLUCOSE (test code = 8769400420) 90 mg/dL 70-110 CREATININE (test code = 7335243436) 0.83 mg/dL 0.50-1.04 CALCIUM (test code = 4869818425) 9.2 mg/dL 8.6-10.6 eGFR (test code = 4152702496) mL/min/1.73m2 PEBBLES (test code = PEBBLES) Association [...] or urine or abnormalities in imaging tests). [facility] 22:23:06* Test Item Value Reference Range Interpretation Comme nts MAGNESIUM (test code = 1610642885) 1.9 mg/dL 1.7-2.4 Lab Interpretation (test cod e = 00531-4) Normal [facility] WITH KYTX0751-64-22 22:16:47* Test Item Value Reference Range Interpretation Comme nts WBC (test code = 6690-2) See_Comment [Automated [employer]] The system which generated this result transmitted reference range: 4.30 - 11.10 10*3/?L. The reference range was not used to interpret this result as normal/abnormal. RBC (test code = 789-8) See_Comment L [Automated [employer]] The system which generated this result transmitted [...] 33.0 g/dL 31.6-35.1 RDW-SD (test code = 53553-7) 47.9 fL 39.0-49.9 RDW-CV (test code = 788-0) 13.8 % 12.0-15.5 PLT (test code = 777-3) See_Comment H [Automated messa ge] The system which generated this result transmitted reference range: 166 - 358 10*3/?L. The reference range was not used to interpret this result as normal/abnormal. MPV (test code = 41527-3) 9.6 fL 9.5-12.9 NRBC/100 WBC (test code = 5631250463) See_Comment [Automated [employer] ssage] The system which generated this result transmitted reference range: 0.0 - 10.0 /100 WBCs. The reference range was not used to interpret this result as normal/abnormal. NRBC x10^3 (test code = 7763392277) See_Comment [Automated messa ge] The system which generated this result transmitted reference range: 10*3/?L. The reference range was not used to interpret this result as normal/abnormal. GRAN MAT (NEUT) % (test code = 770-8) 71.6 % IMM GRAN % (test code = 3995157225) 0.90 % LYMPH % (test code = 736-9) 14.8 % MONO % (test code = 5905-5) 9.9 % EOS % (test code = 713-8) 2.3 % BASO % (test code = 706-2) 0.5 % GRAN MAT x10^3(ANC) (test code = 1931232864) 6.19 10*3/uL 1.88-7.09 IMM GRAN x10^3 (test code = 3457007188) 0.08 10*3/uL 0.00-0.06 H LYMPH x10^3 (test code = 731-0) 1.28 10*3/uL 1.32-3.29 L MONO x10^3 (test code = 742-7) 0.86 10*3/uL 0.33-0.92 EOS x10^3 (test code = 711-2) 0.20 10*3/uL 0.03-0.39 BASO x10^3 (test code = 704-7) 0.04 10*3/uL 0.01-0.07 Lab Interpretation (test code = 97350-0) Abnormal [facility] WITH [id number] 22:16:47* Test Item Value Reference Range Interpretation [...] 33.0 g/dL 31.6-35.1 RDW-SD (test code = 70148-6) 47.9 fL 39.0-49.9 RDW-CV (test code = 788-0) 13.8 % 12.0-15.5 PLT (test code = 777-3) See_Comment H [Automated messa ge] The system which generated this result transmitted reference range: 166 - 358 10*3/?L. The reference range was not used to interpret this result as normal/abnormal. MPV (test code = 29612-5) 9.6 fL 9.5-12.9 NRBC/100 WBC (test code = 8265587786) See_Comment [Automated me ssage] The system which generated this result transmitted reference range: 0.0 - 10.0 /100 WBCs. The reference range was not used to interpret this result as normal/abnormal. NRBC x10^3 (test code = 4680874999) See_Comment [Automated messa ge] The system which generated this result transmitted reference range: 10*3/?L. The reference range was not used to interpret this result as normal/abnormal. GRAN MAT (NEUT) % (test code = 770-8) 71.6 % IMM GRAN % (test code = 0596097723) 0.90 % LYMPH % (test code = 736-9) 14.8 % MONO % (test code = 5905-5) 9.9 % EOS % (test code = 713-8) 2.3 % BASO % (test code = 706-2) 0.5 % GRAN MAT x10^3(ANC) (test code = 7278306958) 6.19 10*3/uL 1.88-7.09 IMM GRAN x10^3 (test code = 8416393811) 0.08 10*3/uL 0.00-0.06 H LYMPH x10^3 (test code = 731-0) 1.28 10*3/uL 1.32-3.29 L MONO x10^3 (test code = 742-7) 0.86 10*3/uL 0.33-0.92 EOS x10^3 (test code = 711-2) 0.20 10*3/uL 0.03-0.39 BASO x10^3 (test code = 704-7) 0.04 10*3/uL 0.01-0.07 Lab Interpretation (test code = 26536-9) Abnormal [facility] Notes Date/Time Note Provider Source 2023-09-28 00:00:00 [id number]/ [id number] [id number] T00:00:00+ + +| Plan Activity | Plan Date |+ + +| Start tapering off lorazapam before surgery current meds | 2016-06-22 || Referral to Dr Prince Pickett- psychiatrist- seeing every 3 months | |+ + +| ONLY DO WHAT DOES NOT HURT | 2022-12-06 |+ + +| low sugar diet | 2022-12-06 || | || BALANCED DIET WITH MEAT AND FRUITS AND VEGETABLES | |+ + +| LEFT SHOULDER REPLACEMENT WITH DR JODY ALBRECHT - PT PTT prolonged - eat red | 2022-12-06 || meat and dark green vegetables | || EKG AND CARDIAC WORK UP - DONE - RELEASE OF RECORDS | || DR HERNANDEZ - OPERATION MANAGER -HAD STRESS AND EKG AND LAST NOTE- DID RELEASE OF | || RECORDS | || F/U 1 month for labs- new date May 17, 2023 | |+ + +| cbc- all these labs draw May 18, 2023 or later | 2022-12-15 || cmp | || U/A-21710 | || PT PTT | || | || CXR 2 VIEWS | |+ + +| EXERCISING AND COUNTING CALORIES | 2023-01-31 |+ + +| Albuterol 90 HFA 1 - 2 puffs PRN dyspnea | 2023-01-31 || Symbicort 1 inhalation BID-RINSE AND SPIT | || certirazine 10mg 1 PO QD | || Flonase 1 spray in [facility] nostril daily- HAS SOME | |+ + +| no sugar diet | 2023-03-16 || watch liver function and kidney function - borderline diabetes | |+ + +| consider weight checks | 2023-07-26 || diet and exercise | |+ + +| Amoxicillin 500MG 1 CAPSULE PO TID #21 REFILL 1 | 2023-07-26 || BRUSH TEETH AND CHANGE OUT TOOTH BRUSH | || CONTROL THE HEADACHES WITH OTC MEDICATION LIKE TYLENOL | || F/U PRN HEADACHE OR ORAL INFECTION | || refer dentist - she has the list and will pick one out and get back tome if she | || needs a referral | |+ + +| referral neurologist- pt wants to pick out her choice but she has seen | 2023-07-26 || Brian before | |+ + +| well adult-abnormal - left corrected corrected | 2023-09-28 || See optomatrist-2021 and dentist PHU FOR yearly VISITS- jul 2023 done | || IMMUNIZATION -needs- but refusing-COVID- FLU- SHINGLES all IMMUNIZATIONS - had | || a blood clot with flu shot - no vaccines for her | || Getting a Release of records from Dr Perez Bsa Officer- for her labs - already | || done and checked monthly - getting iron infusions for abdominal vessel leak and | || working with a embryology professor | || COLONOSCOPY 2023 to be done this month with Dr Willie MARCH | || f/u yearly | || | || CBC-CPT CODE- 92949 | || CMP- 58329 | || U/A-06758 | || HEP C | || [id number] | |+ + +| MAMMOGRAM BILATERAL | 2023-09-28 |+ + +| DEXA-SCAN pt age 63 | 2023-09-28 || will consider Vitamin D and Calcium add by diet or vitamins | |+ + +84665-8Xmbg of TreatmentLNCARE PLANTXTSFA|[id number] for patient lghdEztmugzRexcvzhomVPQNn83 Section NarrativeNARRATIVEFormatted C-CDA narrative textSJudah MelvinOzzie [facility]2024-04-17T00:00:00 Sergio Cheung [facility]"
[2023-10-07] MEDS ORDERED: METOPROLOL TAR 25 MG TAB ONE (06:38)
[2023-10-07] MEDS ORDERED: MAGNESIUM SULFATE 1 gm IVPB 1 GM/100 ML BAG IV ONE (06:38)
[2023-10-07] MEDS ORDERED: METOPROLOL TARTRATE 5 MG/5 ML INJ IV ONE (06:38)
[2023-10-07] MEDS ORDERED: NA CHLORIDE 0.9% 1,000 ML ONE (06:39)
[2023-10-07 06:45] LABS: Absolute Basophils 0.1 K/uL (0-0.5); Absolute Lymphocytes (CBC) 0.8 K/uL (0.7-4.9); Absolute Monocytes 0.4 K/uL (0.1-1.3); Absolute Neutrophil 8.8 K/uL (1.8-8.0); Basophils % 0.7 % (0-1.3); Eosinophils % 0.4 % (0-4.4); Lymphocytes % 7.8 % (15.3-44.8); MCH 30.1 pg (27.0-35.0); MCHC 33.4 g/dL (32.0-36.0); MCV 89.9 fL (80-100); MPV 7.8 fL (7.6-11.3); Monocytes % 3.7 % (3.3-12.3); Neutrophils % 87.4 % (41.7-73.7); Nucleated Red Blood Cells % 0.1 % (0-0); Platelets 452 thou/uL (152-406); RBC Red Blood Cell Count 3.67 M/uL (3.86-4.86); Red Cell Distribution Width 18.3 % (12.1-15.2)
[2023-10-07 06:46] LABS: PT Prothrombin Time 12.1 SECONDS (9.5-12.5); Protime INR 1.1
[2023-10-07 07:14] LABS: ALT/SGPT 155 U/L (13-56); AST/SGOT 166 U/L (15-37); Albumin 2.9 g/dL (3.4-5.0); Albumin/Globulin Ratio 0.9 (1.1-1.8); Alkaline Phosphatase 126 U/L (45-117); Anion Gap 8.8 mEq/L (5.0-15.0); BUN Blood Urea Nitrogen 30 mg/dL (7-18); Bicarbonate 23 mEq/L (21-32); Bilirubin Total 0.1 mg/dL (0.2-1.0); Globulin 3.4 g/dL (2.3-3.5); Glomerular Filtration Rate 52 ml/min (=/>90); Glucose Level 164 mg/dL (74-106); Magnesium 1.6 mg/dL (1.6-2.4); NT PRO-BNP 921 pg/mL (<125); Potassium 3.8 mEq/L (3.5-5.1); Protein, Total 6.3 g/dL (6.4-8.2); Sodium Level 143 mEq/L (136-145); Troponin High Sensitivity 8.5 pg/mL (<58.9)
[2023-10-07 07:16] LABS: Bilirubin Direct < 0.1 mg/dL (0-0.2); Bilirubin Indirect, Calculated ND mg/dL (0.2-0.8)
--- NOTE | 2023-10-07 07:39 | RAD REPORT ---
EXAM DESCRIPTION: RAD - Chest Single View - 10/07/2023 6:41 am CLINICAL HISTORY: PALPITATIONS Chest pain. COMPARISON: Chest Pa And Lat (2 Views) dated 03/09/2023; Chest Single View dated 10/07/2022; Chest Sin gle View dated 10/02/2022; Chest Single View dated 07/12/2022 FINDINGS: Portable technique limits examination quality. The lungs are grossly clear. The heart is normal in size. Left shoulder and clavicle hardware.Small h iatal hernia. IMPRESSION: No acute intrathoracic process suspected.
--- NOTE | 2023-10-07 08:02 | EDPHYS ---
Physician Documentation [facility] Name: Martha Pradhan Age: 63 yrs Sex: Female : 1960 Arrival Date: 10/07/2023 Time: 06:24 Bed 3 Private MD: ED Physician Keyshawn Kaur HPI: 10/06 06:37 This 63 yrs old Female presents to ER via EMS with complaints of svt. eric 06:37 The patient presents with a history of heart racing. Context: The symptoms occur at eric rest. Onset: The symptoms/episode began/occurred just prior to arrival. Duration: The patient or guardian reports a single episode, that is now resolved. Modifying factors: The symptoms are aggravated by nothing. The symptoms are alleviated by nothing. Associated signs and symptoms: Pertinent positives: lightheadedness. Severity of symptoms: At their worst the symptoms were moderate in the emergency department the symptoms have resolved. The patient has experienced similar episodes in the past. Historical: - Allergies: 06:28 haloperidol lactate; rv 06:28 hydroxyzine HCl; rv 06:28 Hydroxyzine Pamoate; rv 06:28 Ibuprofen; rv 06:28 Lyrica; rv 06:28 meloxicam; rv 06:28 nalbuphine HCl; rv 06:28 Naproxen; rv 06:28 NSAIDS (Non-Steroidal Anti-Inflammatory Drug); rv 06:28 Nubain; rv 06:28 Risperdal; rv 06:28 Vistaril; rv - PMHx: 06:28 ULCER; PE; Irritable bowel syndrome; Tachycardia; Osteoporosis; GERD; ADD/ADHD; Back rv pain; bleeding ulcers; Arthritis; Anxiety; Chronic pain; restless leg syndrome; - PSHx: 06:28 Appendectomy; hysterectomy; left clavicle repair; rv - Immunization history:: Adult Immunizations up to date. - Infectious Disease History:: Denies. - Social history:: Smoking status: Patient denies any tobacco usage or history of. - Family history:: not pertinent. ROS: 06:37 Constitutional: Negative for fever, chills, and weight loss, Eyes: Negative for injury, eric pain, redness, and discharge, ENT: Negative for injury, pain, and discharge, Neck: Negative for injury, pain, and swelling, Respiratory: Negative for shortness of breath, cough, wheezing, and pleuritic chest pain, Abdomen/GI: Negative for abdominal pain, nausea, vomiting, diarrhea, and constipation, Back: Negative for injury and pain, : Negative for injury, bleeding, discharge, and swelling, MS/Extremity: Negative for injury and deformity, Skin: Negative for injury, rash, and discoloration, Neuro: Negative for headache, weakness, numbness, tingling, and seizure, Psych: Negative for depression, anxiety, suicide ideation, homicidal ideation, and hallucinations, Allergy/Immunology: Negative for hives, rash, and allergies, Endocrine: Negative for neck swelling, polydipsia, polyuria, polyphagia, and marked weight changes, Hematologic/Lymphatic: Negative for swollen nodes, abnormal bleeding, and unusual bruising, 06:37 Cardiovascular: 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 Head/Face: Normocephalic, atraumatic. Eyes: Pupils equal round and reactive to light, extra-ocular motions intact. Lids and lashes normal. Conjunctiva and sclera are non-icteric and not injected. Cornea within normal limits. Periorbital areas with no swelling, redness, or edema. ENT: Nares patent. No nasal discharge, no septal abnormalities noted. Tympanic membranes are normal and external auditory canals are clear. Oropharynx with no redness, swelling, or masses, exudates, or evidence of obstruction, uvula midline. Mucous membranes moist. Neck: Trachea midline, no thyromegaly or masses palpated, and no cervical lymphadenopathy. Supple, full range of motion without nuchal rigidity, or vertebral point tenderness. No Meningismus. Chest/axilla: Normal chest wall appearance and motion. Nontender with no deformity. No lesions are appreciated. Cardiovascular: Regular rate and rhythm with a normal S1 and S2. No gallops, murmurs, or rubs. Normal PMI, no JVD. No pulse deficits. Respiratory: Lungs have equal breath sounds bilaterally, clear to auscultation and percussion. No rales, rhonchi or wheezes noted. No increased work of breathing, no retractions or nasal flaring. Abdomen/GI: Soft, non-tender, with normal bowel sounds. No distension or tympany. No guarding or rebound. No evidence of tenderness throughout. Back: No spinal tenderness. No costovertebral tenderness. Full range of motion. Female : Normal external genitalia. Skin: Warm, dry with normal turgor. Normal color with no rashes, no lesions, and no evidence of cellulitis. MS/ Extremity: Pulses equal, no cyanosis. Neurovascular intact. Full, normal range of motion. Neuro: Awake and alert, GCS 15, oriented to person, place, time, and situation. Cranial nerves II-XII grossly intact. Motor strength 5/5 in all extremities. Sensory grossly intact. Cerebellar exam normal. Normal gait. Psych: Awake, alert, with orientation to person, place and time. Behavior, mood, and affect are within normal limits. 06:37 ECG was reviewed by the Attending Physician. Vital Signs: 06:26 BP 133 / 43; Pulse 98; Resp 18; Temp 98; Pulse Ox 97% on R/A; Weight 67.13 kg; rv 07:17 BP 112 / 76; Pulse 78; Resp 18; Pulse Ox 98% on R/A; Pain 0/10; ld1 08:29 BP 126 / 74; Pulse 83; Resp 18; Pulse Ox 100% on R/A; ld1 07:17 Pain Scale: Adult ld1 MDM: 06:25 Patient medically screened. eric 06:40 Differential diagnosis: arrythmia, dehydration, stress disorder. Data reviewed: vital eric signs, nurses notes, EMS record, lab test result(s), EKG, radiologic studies, plain films. Consideration of Admission/Observation Escalation of care including admission/observation considered. I considered the following discharge prescriptions or medication management in the emergency department Medications were administered in the Emergency Department. See MAR. Independent interpretation of the following test(s) in the Emergency Department EKG: See my EKG interpretation above. Test considered but Not performed: Ultrasound no 2 d echo. Historians other than the Patient: EMS: ems well informed. Care significantly affected by the following chronic conditions: Hypertension, Obesity, ibs, gerd, PSVT, tachy. 07:54 ED course: Reviewed labs, mild anemia, elevated LFTs etc. CXR: No fluid overload. Pt's bo1 SVT has resolved. Check out from Dr Kaur with plan to continue discharge plan. Pt is stable.. 08:01 ED course: Informed pt of plan and of results. She's happy to be discharged.. bo1 10/06 06:28 Order name: Basic Metabolic Panel; Complete Time: 07:51 [facility] 10/06 06:28 Order name: CBC with Diff; Complete Time: 07:51 [facility] 10/06 06:28 Order name: LFT's; Complete Time: 07:51 [facility] 10/06 06:28 Order name: Magnesium; Complete Time: 07:51 [facility] 10/06 06:28 Order name: NT PRO-BNP; Complete Time: 07:51 [facility] 10/06 06:28 Order name: PT-INR; Complete Time: 07:51 [facility] 10/06 06:28 Order name: Troponin HS; Complete Time: 07:51 [facility] 10/06 06:28 Order name: TSH; Complete Time: 07:51 [facility] 10/06 06:28 Order name: Urinalysis w/ reflexes 10/06 07:02 Order name: CBC Smear Scan EDMS 10/06 06:28 Order name: XRAY Chest (1 view); Complete Time: 07:51 [facility] 10/06 06:28 Order name: EKG; Complete Time: 06:28 [facility] 10/06 06:28 Order name: Cardiac monitoring; Complete Time: 06:30 [facility] 10/06 06:28 Order name: EKG - Nurse/Tech; Complete Time: 06:30 [facility] 10/06 06:28 Order name: IV Saline Lock; Complete Time: 06:30 [facility] 10/06 06:28 Order name: Labs collected and sent; Complete Time: 06:30 [facility] 10/06 06:28 Order name: O2 Per Protocol; Complete Time: 06:30 [facility] 10/06 06:28 Order name: O2 Sat Monitoring; Complete Time: 06:30 [facility] EC:37 Rate is 99 beats/min. Rhythm is regular. QRS [place] is Normal. [place] interval is normal. QRS eric interval is normal. QT interval is normal. No Q waves. T waves are Normal. No ST changes noted. Clinical impression: NSR w/ Non-specific ST/T Changes and No evidence of ischemia. Interpreted by me. Reviewed by me. Administered Medications: 06:35 CANCELLED (Duplicate Order): toprol xl25 mg PO once eric 06:45 Drug: Magnesium Sulfate IVPB 1 grams IVPB once over 1 hrs Route: IVPB; Infused Over: 1 rv hrs; Site: right forearm; 06:46 Drug: NS 0.9% IV 1000 ml IV at 1 bolus Per protocol; 1000 mL bolus Route: IV; Rate: 1 rv bolus; Site: right forearm; 07:03 Drug: Metoprolol PO 25 mg PO once Route: PO; rv 07:04 Drug: Metoprolol IVP 2.5 mg IVP once; Hold for SBP <100 or HR <60. Route: IVP; Site: rv right forearm; 07:16 Not Given (Other Intervention Used): metoprolol2.5 mg IVP once; Hold for SBP <100 or HR ld1 <60. Disposition Summary: 10/07/23 08:02 Discharge Ordered Notes: Location: Home bo1 Problem: new bo1 Symptoms: have improved bo1 Condition: Stable bo1 Diagnosis - Supraventricular tachycardia bo1 Followup: eric - With: Private Physician - When: 2 - 3 days - Reason: Recheck today's complaints, Continuance of care, Re-evaluation by your physician Followup: eric - With: Eddie Teran MD - When: 2 - 3 days - Reason: Recheck today's complaints, Continuance of care, Re-evaluation by your physician Discharge Instructions: - Discharge Summary Sheet eric - Supraventricular Tachycardia, Adult eric - Supraventricular Tachycardia, Adult, Lvwk-lo-Pfbk eric Forms: - Medication Reconciliation Form bo1 - Antibiotic Education bo1 - Prescription Opioid Use bo1 - Patient Portal Instructions bo1 - Leadership Thank You Letter bo1 Prescriptions: - Lopressor 50 mg Oral Tablet - take 1 tablet ORAL route every 12 hours; 30 tablet; Refills: 0, Product eric Selection Permitted Signatures: Dispatcher [employer] EDKeyshawn Echevarria MD MD cha Vicente, Ronaldo, RN RN rv OeiMina MD MD bo1 Shama Ko RN ld1 Corrections: (The following items were deleted from the chart) 06:29 06:28 BASIC METABOLIC PANEL+C.LAB.BRZ ordered. EDFL EDMS 06:29 06:28 CBC+H.LAB.BRZ ordered. EDFL EDMS 06:29 06:28 HEPATIC FUNCTION+C.LAB.BRZ ordered. EDFL EDMS 06:29 06:28 MAGNESIUM+C.LAB.BRZ ordered. EDFL EDMS 06:29 06:28 PROBNP+C.LAB.BRZ ordered. EDFL EDMS 06:28 PROTIME (+INR)+COAG.LAB.BRZ ordered. EDMS EDMS 06:28 Troponin High Sensitivity+C.LAB.BRZ ordered. EDMS EDMS 06:28 THYROID STIMULAT HORMONE+C.LAB.BRZ ordered. EDMS EDMS 06:28 Urinalysis+U.LAB.BRZ ordered. EDMS EDMS 06: 06:28 ToPROL XL PO 25 mg PO once ordered. eric reyes
--- NOTE | 2023-10-07 08:02 | ER ---
Nurse's Notes [facility] Name: Martha Pradhan Age: 63 yrs Sex: Female : 1960 Arrival Date: 10/07/2023 Time: 06:24 Bed 3 Private MD: Diagnosis: Supraventricular tachycardia Presentation: 10/06 06:26 Chief complaint: EMS states: woke up and felt weakness on bilateral legs which is rv usually sign of an SVT episode, check pulse is up to 165. denies chest pain/sob. EMS gave adenosine 12mg IV. converted to sinus rhythm, 90s. Coronavirus screen: At this time, the client does not indicate any symptoms associated with coronavirus-19. Ebola Screen: No symptoms or risks identified at this time. Initial Sepsis Screen: Does the patient meet any 2 criteria? No. Patient's initial sepsis screen is negative. Does the patient have a suspected source of infection? No. Patient's initial sepsis screen is negative. Risk Assessment: Do you want to hurt yourself or someone else? Patient reports no desire to harm self or others. Onset of symptoms was October 07, 2023. 06:26 Method Of Arrival: EMS: [facility] rv 06:26 Acuity: ROSALBA 2 rv Triage Assessment: 06:28 General: Appears comfortable, Behavior is calm, cooperative. Pain: Denies pain. Neuro: rv Level of Consciousness is awake, alert, obeys commands, Oriented to person, place, time, situation. Cardiovascular: Capillary refill < 3 seconds Patient's skin is warm and dry. Rhythm is sinus rhythm Chest pain is denied. Respiratory: Airway is patent Respiratory effort is even, unlabored, Respiratory pattern is regular, Breath sounds are clear bilaterally. Derm: Skin is intact. Historical: - Allergies: 06:28 haloperidol lactate; rv 06:28 hydroxyzine HCl; rv 06:28 Hydroxyzine Pamoate; rv 06:28 Ibuprofen; rv 06:28 Lyrica; rv 06:28 meloxicam; rv 06:28 nalbuphine HCl; rv 06:28 Naproxen; rv 06:28 NSAIDS (Non-Steroidal Anti-Inflammatory Drug); rv 06:28 Nubain; rv 06:28 Risperdal; rv 06:28 Vistaril; rv - PMHx: 06:28 ULCER; PE; Irritable bowel syndrome; Tachycardia; Osteoporosis; GERD; ADD/ADHD; Back rv pain; bleeding ulcers; Arthritis; Anxiety; Chronic pain; restless leg syndrome; - PSHx: 06:28 Appendectomy; hysterectomy; left clavicle repair; rv - Immunization history:: Adult Immunizations up to date. - Infectious Disease History:: Denies. - Social history:: Smoking status: Patient denies any tobacco usage or history of. - Family history:: not pertinent. Screenin:30 [facility] ED Fall Risk Assessment (Adult) History of falling in the last 3 months, rv including since admission No falls in past 3 months (0 pts) Score/Fall Risk Level 0 - 2 = Low Risk Oriented to surroundings, Maintained a safe environment, Educated pt \T\ family on fall prevention, incl call for assistance when getting out of bed, Assessed \T\ reinforced patient's understanding of fall precautions. Abuse screen: Denies threats or abuse. Denies injuries from another. Nutritional screening: No deficits noted. Tuberculosis screening: No symptoms or risk factors identified. Assessment: 07:17 General: Appears in no apparent distress. comfortable, Behavior is calm, cooperative, ld1 appropriate for age. Pain: Denies pain. Neuro: Level of Consciousness is awake, alert, obeys commands, Oriented to person, place, time, situation. Cardiovascular: Capillary refill < 3 seconds Patient's skin is warm and dry. Cardiovascular: Rhythm is sinus rhythm. Respiratory: Airway is patent Respiratory effort is even, unlabored. GI: Abdomen is round non-distended. : No signs and/or symptoms were reported regarding the genitourinary system. EENT: No signs and/or symptoms were reported regarding the EENT system. Derm: No signs and/or symptoms reported regarding the dermatologic system. Musculoskeletal: No signs and/or symptoms reported regarding the musculoskeletal system. Vital Signs: 06:26 BP 133 / 43; Pulse 98; Resp 18; Temp 98; Pulse Ox 97% on R/A; Weight 67.13 kg; rv 07:17 BP 112 / 76; Pulse 78; Resp 18; Pulse Ox 98% on R/A; Pain 0/10; ld1 08:29 BP 126 / 74; Pulse 83; Resp 18; Pulse Ox 100% on R/A; ld1 07:17 Pain Scale: Adult ld1 Vitals: 08:29 Cardiac Rhythm Assessment Regular. ld1 ED Course: 06:25 Patient arrived in ED. rv 06:25 Keyshawn Kaur MD is Attending Physician. eric 06:28 Triage completed. rv 06:28 Arm band placed on right wrist. rv 06:30 Patient has correct armband on for positive identification. Client placed on continuous rv cardiac and pulse oximetry monitoring. NIBP monitoring applied. cardiac monitor technician on. 06:30 No provider procedures requiring assistance completed. rv 06:31 Troponin HS Sent. rv 06:31 PT-INR Sent. rv 06:31 NT PRO-BNP Sent. rv 06:31 Magnesium Sent. rv 06:31 LFT's Sent. rv 06:31 CBC with Diff Sent. rv 06:31 Basic Metabolic Panel Sent. rv 06:35 EKG done, by ED staff, reviewed by Keyshawn Kaur MD. pf1 06:43 XRAY Chest (1 view) In Process Unspecified. EDMS 06:45 Maintain EMS IV. Dressing intact. Good blood return noted. Site clean \T\ dry. Gauge \T\ rv site: g20 right forearm. 06:46 Basic Metabolic Panel Sent. rv 06:46 CBC with Diff Sent. rv 06:46 LFT's Sent. rv 06:46 Magnesium Sent. rv 06:46 NT PRO-BNP Sent. rv 06:46 PT-INR Sent. rv 06:46 Troponin HS Sent. rv 07:15 Shama Ko, ALEXANDRA is Primary Nurse. ld1 08:01 Eddie Teran MD is Referral Physician. bo1 08:30 IV discontinued, intact, bleeding controlled, No redness/swelling at site. ld1 Administered Medications: 06:35 CANCELLED (Duplicate Order): toprol xl25 mg PO once eric 06:45 Drug: Magnesium Sulfate IVPB 1 grams IVPB once over 1 hrs Route: IVPB; Infused Over: 1 rv hrs; Site: right forearm; 06:46 Drug: NS 0.9% IV 1000 ml IV at 1 bolus Per protocol; 1000 mL bolus Route: IV; Rate: 1 rv bolus; Site: right forearm; 07:03 Drug: Metoprolol PO 25 mg PO once Route: PO; rv 07:04 Drug: Metoprolol IVP 2.5 mg IVP once; Hold for SBP <100 or HR <60. Route: IVP; Site: rv right forearm; 07:16 Not Given (Other Intervention Used): metoprolol2.5 mg IVP once; Hold for SBP <100 or HR ld1 <60. Medication: 06:30 VIS not applicable for this client. rv Outcome: :02 Discharge ordered by . bo1 08:30 Discharged to home ambulatory, ld1 08:30 Condition: stable 08:30 Discharge instructions given to patient, Instructed on discharge instructions, follow up and referral plans. Demonstrated understanding of instructions, follow-up care, 08:30 Patient left the ED. ld1 Signatures: Dispatcher [employer] EDKeyshawn Echevarria MD MD cha Vicente, Ronaldo, RN RN rv Shama Ko RN RN ld1 Bianca Beatty RN RN pf1 Mina Hancock MD MD bo1
[2023-10-07 08:39] VITALS: BP 126/74; TEMP 98; O2SAT 100
[2023-10-07 08:40] LABS: Platelet Estimate ADEQ; White Blood Cell Scan OK (OK)
[2023-10-07 08:41] LABS: Blood Morphology Comment NOTED (NOT SEEN); Hypochromasia 2+
--- NOTE | 2023-10-10 13:06 | EKG ---
Test Date: 2023-10-07 Test Time: 06:29:35 Shank Faker: NAYELI MEASUREMENT RESULTS: Intervals: Rate: 99 SD: 150 QRSD: 84 QT: 362 QTc: 464 [place]: P: 49 SD: 150 QRS: 48 T: 17 INTERPRETIVE STATEMENTS: Normal sinus rhythm Normal ECG Compared to ECG 08/29/2023 09:44:20 No significant changes Electronically Signed On 10-10-23 12:58:20 CDT by Eddie Teran
== END 2023-10-07 08:30 | disposition home or self-care (01) ==
LOC: ER 06:24
DX: I47.10 Supraventricular tachycardia, unspecified (principal); G89.29 Other chronic pain; Z88.6 Allergy status to analgesic agent; Z88.8 Allergy status to other drugs, medicaments and biological substances
CPT/HCPCS: 93005; 85025; 80048; 36415; 83735; 85610; 80076; 84443; 84484; 83880; 71045; J3475; J7030

== ENCOUNTER 2024-02-27 10:50 | Emergency (ER) | payer OTHER ==
--- OUTSIDE RECORDS SUMMARY | 2024-02-27 11:01 | XMS REPORT | Continuity of Care Document ---
Author Name Unknown Address [address] [facility]. [address] [place] [address] [facility] thconnect Address [address] [facility] [address] [place] [address] Care Team Providers Care Planisher Name Role Phone Lani Berman Primary Care Physician No, PCP Attending Clinician Unavailable Nirmal Hancock Attending Clinician Unavailable NIVIA BESS Attending Clinician Unavailable JODY ALBRECHT Attending Clinician Unavailable JODY ALBRECHT Attending Clinician Katie vailable Nirmal Hancock Attending Clinician Doctor Unassigned, [place] Attending Clinician U patricia Steele MD, Betito Arita Attending Clinician [phone] LUPE CAMPOS Attending Clinician Unavailab esha Mayer RN, Dino Mcconnell Attending Clinician Unavail able TIFFANI DARBY Attending Clinician Unavailable TIFFANI DARBY Attending Clinician Unavailable Sharif Castañeda CRNA Attending Clinician [phone] Geovanna TEE, Alexandru Garcia Attending Clinician [phone] Kristan Monroe CRNA Attending Clinician [phone] Nivia Bess MD Attending Clinician [phone] Call, Count Includes [facility] Phone Attending Clinician Unavail able Only, Adc Test Attending Clinician Unavailable JOE MORALES Attending Clinician Unavailabl e ROGELIO Attending Clinician Unavailable SHERWIN NASH Attending Clinician Unavail able SHERWIN NASH Attending Clinician Unavail able NIVIA BESS Admitting Clinician Unavailable TIFFANI DARBY Admitting Clinician Unavailable Nivia Bess MD Admitting Clinician [phone] ROGELIO Admitting Clinician Unavailable Payers Payer Name Policy Type Policy Number Effective Date Expirati on Date Source [facility] COMMUNITY PLAN STAR [id number] 2012 00:00:00 2022 00:00:00 [facility] DUAL COMP HMO D SNP [id number] 2020 00:00:00 [place] [id number] 2020 00:00:00 [facility] [place] STAR PLUS [id number] 2013 [facility]00[id number] 2020 00:00:00 2024 00:00:00 [facility] Dual Complete Choice (Regional PPO D-SNP) 53 [id number] 2019 00:00:00 [facility] [id number] 2012 00:00:00 [facility] [id number] 2012 00:00:00 [facility] [id number] 2012 00:00:00 [facility] MEDICARE [place]: [employer] [id number] 2006 00:00:00 [facility] - COMMUNITY PLAN - DUAL COMPLETE - SNP PLAN (MEDICARE REPLACEMENT HMO) [id number] [facility] [place] STAR PLUS (MEDICAID HMO) [id number] 2018 00:00:00 Problems Condition Name Condition Details Condition Category Status Onset Date Resolution Date Last Treatment Date Treating Clinician Comments Source GI bleed GI bleed Disease Active 06-14 00:00: 00 [facility] Peptic ulcer disease Peptic ulcer disease Disease Active 6-15 00:00: 00 Overview: Formattin g of this note might be different from the original. Added automatic ally from request for surgery [id number] [facility] Multiple gastric ulcers Multiple gastric ulcers Disease Active 07-15 00:00: 00 Overview: Formattin g of this note might be different from the original. Added automatic ally from request for surgery [id number] [facility] Hiatal hernia Hiatal hernia Disease Active 2019-06 00:00: 00 [facility] Post-op pain Post-op pain Disease Active 2015-06 00:00: 00 [facility] Chronic neck pain Chronic neck pain Disease Active 06-23 00:00: 00 [facility] Anxiety disorder Anxiety disorder Disease Active 06-23 00:00: 00 [facility] [id number] DDD (degenerat ceferino disc disease), cervical Problem [facility] [id number] Attention deficit hyperactiv ity disorder (ADHD), combined type Problem [facility] [id number] Panic disorder [episodic paroxysmal anxiety] Problem [facility] [id number] GERD without esophagiti s Problem [facility] [id number] Atheroscle rosis of abdominal aorta Problem [facility] [id number] +5th digit eff 03/13/20*CK D (chronic kidney disease) stage 3, GFR 30-59 ml/min Problem [facility] [id number] Generalize d anxiety disorder Problem [facility] [id number] PTSD (post-trau matic stress disorder) Problem [facility] [id number] Bilateral tinnitus Problem [facility] [id number] Current moderate episode of major depressive disorder without prior episode Problem [facility] [id number] Osteoporos is, unspecifie d osteoporos is type, unspecifie d pathologic al fracture presence Problem [facility] [id number] Irritable bowel syndrome with both constipati on and diarrhea Problem [facility] [id number] Milk-alkal i syndrome Problem [facility] [id number] Allergic rhinitis, unspecifie d seasonalit y, unspecifie d trigger Problem [facility] [id number] Mixed hyperlipid emia Problem [facility] [id number] Stage 3a chronic kidney disease Problem [facility] 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 Problem [facility] [id number] Osteoarthr itis of multiple joints, unspecifie d osteoarthr itis type Problem [facility] [id number] History of uterine cancer Problem [facility] [id number] Chronic pain syndrome Problem [facility] Chronic vascular insufficie ncy of intestine Superior mesenteric artery atheroscle rosis Problem [facility] [id number] Elevated liver enzymes Problem [facility] [id number] Urinary incontinen ce, unspecifie d type Problem [facility] Anemia of chronic renal failure Anemia associated with chronic renal failure Problem [facility] 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 Hypercalce shahnaz Hypercalce shahnaz Problem [facility] [id number] Shoulder arthritis Problem [facility] Anemia due to blood loss Anemia due to blood loss Problem [facility] [id number] SVT (supravent ricular tachycardi a) Problem [facility] Contractur e of right ankle Contractur e of right ankle Problem [facility] Contractur e of left ankle Contractur e of left ankle Problem [facility] Supraventr icular dysrhythmi a Supraventr icular dysrhythmi a Disease Active [facility] Chronic low back pain Chronic low back pain Disease Active [facility] Allergies, Adverse Reactions, Alerts Allergy Name Allergy Type Status Severity Reaction(s) Onset Date Inactive Date Treating Clinician Comments Source Frances Propensi ty to adverse reaction to drug Active 0 8-27 00:00: 00 Sergio Hayes NSAIDS (Non-Stepan roidal Anti-Inf lammator y Drug) Propensi ty to adverse reaction to drug Active 0 4-17 00:00: 00 Sergio Hayes Pregabal in Allergy to substanc e Active Swelling 2023-0 4-16 00:00: 00 [facility] Risperid one Allergy to substanc e Active Swelling 0 4-16 00:00: 00 [facility] Haloperi dol Allergy to substanc e Active Swelling 0 4-16 00:00: 00 [facility] Meloxica m Allergy to substanc e Active 0 4-16 00:00: 00 Other Reaction( s): seizures [facility] Nalbuphi ne Allergy to substanc e Active Swelling 2023-0 4-16 00:00: 00 [facility] Haldol - Injectio n Propensi ty to adverse reaction to drug Active 0 3-15 00:00: 00 Serigo Hayes Lyrica Propensi ty to adverse reaction to drug Inactiv e 2020-0 5-30 00:00: 00 Sergio Hayes Haloperi dol Lactate Propensi ty to adverse reaction s Active Anaphylaxis 0 2-04 00:00: 00 [facility] Etodolac Propensi ty to adverse reaction s Active Anaphylaxis 2021-0 2-04 00:00: 00 [facility] HALOPERI DOL LACTATE DRUG INGREDI Active Anaphylaxis 2 00:00: 00 [facility] ETODOLAC DRUG INGREDI Active Anaphylaxis 07-17 00:00: 00 [facility] Pregabal in Propensi ty to adverse reaction s Active Hallucinatio ns 2014-06 00:00: 00 [facility] PREGABAL IN DRUG INGREDI Active Hallucinates 2014-06 00:00: 00 [facility] Meloxica m Propensi ty to adverse reaction s Active Other - See comments 2014-06 00:00: 00 Seizures [facility] Nsaids (Non-Stepan roidal Anti-Inf lammator y Drug) Propensi ty to adverse reaction s Active Anaphylaxis 2014-06 00:00: 00 [facility] Nalbuphi ne Hcl Propensi ty to adverse reaction s Active Anaphylaxis 2014-06 00:00: 00 [facility] Vistaril Im (Hcl Salt) Propensi ty to adverse reaction s Active Extra pyramidal effects 2014-06 00:00: 00 [facility] Nsaids (Non-Stepan roidal Anti-Inf lammator y Drug) Propensi ty to adverse reaction s Active Anaphylaxis 2014-06 00:00: 00 [facility] MELOXICA M DRUG INGREDI Active Other-Cmnt 2014-06 00:00: 00 [facility] NSAIDS (NON-STEPAN ROIDAL ANTI-INF LAMMATOR Y DRUG) Drug Class Active Anaphylaxis 2014-06 00:00: 00 [facility] NALBUPHI NE HCL DRUG INGREDI Active Anaphylaxis 2014-06 00:00: 00 [facility] VISTARIL IM (HCL SALT) DRUG Active EP Effects 2014-06 00:00: 00 [facility] Nsaids Propensi ty to adverse reaction s Active Anaphylaxis 2014-06 00:00: 00 [facility] Non-ster oidal anti-inf lammator y agent (FN) Non-ster oidal anti-inf lammator y agent (FN) Active Unknown [facility] [id number] Drug allergy Active throat closes [facility] hydroxyz ine hydroxyz ine Active seizure [facility] 57243 Drug allergy Active throat closes [facility] pregabal in pregabal in Active throat closes [facility] etodolac etodolac Active throat closes [facility] ibuprofe n ibuprofe n Active throat closes [facility] meloxica m meloxica m Active seizure [facility] [id number] Drug allergy Active Unknown [facility] Family History Family Member Diagnosis Comments Start Date Stop Date Sourc e Natural father [facility] Natural [facility] Hy[facility] Social History Social Habit Start Date Stop Date Quantity Comments Source History SDOH Social Connections Get Together [facility] History SDOH Social Connections [facility] History SDOH Social Connections Membership [facility] History SDOH Social Connections Meetings [facility] Sex Assigned At [facility] History of Tobacco Use [facility] Alcoholic beverage intake 2023-09-27 00:00:00 2023-09-27 00:00:00 Lifetime non-drinker (finding) [facility] History of Social function 2023-09-27 00:00:00 2023-09-27 00:00:00 [facility] Exposure to SARS-CoV-2 (event) 2022-11-01 00:00:00 2022-11-11 12:54:00 Not sure [facility] Alcohol intake 2022-11-11 00:00:00 2022-11-11 00:00:00 Lifetime non-drinker (finding) [facility] Tobacco use and exposure 2022-08-12 00:00:00 2022-08-12 00:00:00 Smokeless tobacco non-user [facility] Tobacco Comment 2022-06-15 00:00:00 2022-06-15 00:00:00 stopped 02/22/2013 [facility] History SDOH Alcohol Frequency 2022-06-14 00:00:00 2022-06-14 00:00:00 1 [facility] History SDOH Alcohol Std Drinks 2022-06-14 00:00:00 2022-06-14 00:00:00 0 [facility] History SDOH Alcohol Binge 2022-06-14 00:00:00 2022-06-14 00:00:00 1 [facility] History SDOH Social Connections Phone 2022-06-14 00:00:00 2022-06-14 00:00:00 3 [facility] History SDOH Social Connections Living 2022-06-14 00:00:00 2022-06-14 00:00:00 5 [facility] History SDOH Physical Activity DPW 2022-06-14 00:00:00 2022-06-14 00:00:00 0 [facility] History SDOH Physical Activity MPS 2022-06-14 00:00:00 2022-06-14 00:00:00 0 [facility] History SDOH Financial 2022-06-14 00:00:00 2022-06-14 00:00:00 5 [facility] History SDOH Food Worry 2022-06-14 00:00:00 2022-06-14 00:00:00 1 [facility] History SDOH Food Scarcity 2022-06-14 00:00:00 2022-06-14 00:00:00 1 [facility] History SDOH Transport Med 2022-06-14 00:00:00 2022-06-14 00:00:00 2 [facility] History SDOH Transport Non-Med 2022-06-14 00:00:00 2022-06-14 00:00:00 2 [facility] Smoking Status Start Date Stop Date Source Never Smoker [facility] Ex-smoker 2022-06-15 00:00:00 2022-06-15 [facility]00[facility]00 [facility] Ordered Medication Name Filled Medication Name Start Date Stop Date Current Medication? Ordering Clinician Indication Dosage Frequency Signature (SIG) Comments Components Source meloxicam 15 mg tablet 8-27 00:00: 00 Yes 1mg Sergio Hayes cyclobenzap rine 10 mg tablet 8-27 00:00: 00 Yes 1mg Sergio Hayes predniSONE 10 MG predniSONE 10 MG 7-19 00:00: 00 No predniSONE 10 MG DICYCLOMINE HYDROCHLORI DE 20 MG TABS -29 00:00: 00 Yes Sergio Hayes gabapentin 100 mg capsule 4-19 00:00: 00 Yes 1mg Sergio Hayes gabapentin 100 mg capsule 4-17 00:00: 00 Yes 1mg Sergio Hayes TAKE 1 TABLET BY MOUTH TWICE DAILY 2- 00:00: 00 Yes Sergio Hayes METHYLPHENI DATE HYDROCHLORI DE ER 15 MG CP24 2- 00:00: 00 Yes Sergio Hayes FLUOXETINE HYDROCHLORI DE 40 MG - 00:00: 00 Yes Sergio Hayes OLANZAPINE 5MG TABLETS - 00:00: 00 Yes Sergio Hayes METHYLPREDN ISOLONE DOSE PACK 4 MG TBPK - 00:00: 00 Yes Sergio Hayes methylPREDN ISolone (Medrol) 4 MG tablet - 00:00: 00 - 00:00 :00 No [id number] 4mg Take 1 tablet (4 mg total) by mouth 1 (one) time for 1 dose. Take as instructed by packaging [facility] TAKE 1 CAPSULE EVERY 8 HOURS. - 00:00: 00 10-20 00:00 :00 No 500 Sergio Hayes FAMOTIDINE 40 MG TABS 2-05 00:00: 00 Yes Sergio Hayes TAKE 1 TABLET BY MOUTH TWICE DAILY WITH A MEAL - 00:00: 00 Yes Sergio Hayes TAKE 1 TABLET BY MOUTH TWICE DAILY WITH MEALS - 00:00: 00 Yes Sergio Hayes DEXLANSOPRA ZOLE 60 MG CPDR 1- 00:00: 00 Yes Sergio Hayes ONDANSETRON HYDROCHLORI DE 4 MG TABS 2022-06 2-06 00:00: 00 Yes Sergio Hayes HYDROCODONE BITARTRATE/ ACETAMINOPH E N 5-325 MG TABS 2022-06 2-06 00:00: 00 Yes Sergio Hayes TAKE 1 TABLET EVERY MORNING NEEDED. 2022-06 2 00:00: 00 10-20 00:00 :00 No 10 Sergio Hayes DOXYCYCLINE MONOHYDRATE 100MG 2022-06 2 00:00: 00 Yes Sergio Hayes APPLY TO [...] Hayes IMIQUIMOD 5% CREAM SINGLE USE PKTS 03-08 00:00: 00 Yes Sergio Hayes DEXMETHYLPH ENIDATE HYDROCHLORI DE ER 15 MG CP24 - 00:00: 00 Yes Sergio Hayes 1 TAB PO PRN MUSCLE PAIN HS 03-01 00:00: 00 10-20 00:00 :00 No 500 Sergio Hayes TAKE 1 TABLET BY MOUTH DAILY 02-23 00:00: 00 Yes Sergio Hayes ALPRAZOLAM 0.5MG TABLETS 01-31 00:00: 00 Yes Sergio Hayes INHALE 1 TO 2 PUFFS BY MOUTH EVERY 4 TO 6 HOURS NEEDED DIRECTED - 00:00: 00 Yes Sergio Hayes FLUOXETINE HYDROCHLORI DE 40 MG - 00:00: 00 Yes Sergio Hayes INHALE 2 PUFFS TWICE DAILY. RINSE MOUTH AFTER USE. 01-31 00:00: 00 10-20 00:00 :00 No [id number] Sergio Hayes TAKE 1 TABLET EVERY MORNING NEEDED. 01-31 00:00: 00 10-20 00:00 :00 No 10 Sergio Hayes INHALE 1-2 PUFFS EVERY 4-6 HOURS NEEDED AND DIRECTED. 01-31 00:00: 00 10-20 00:00 :00 No [id number] Sergio Hayes TAKE 1 TABLET BY MOUTH TWICE DAILY NEEDED 01-25 00:00: 00 Yes Sergio Hayes FAMOTIDINE 40 MG TABS 8 00:00: 00 Yes Sergio Hayes DEXMETHYLPH ENIDATE HYDROCHLORI DE ER 15 MG CP24 12-30 00:00: 00 Yes Sergio Hayes 1 TABLET PO BID 12-20 00:00: 00 10-20 00:00 :00 No 500 Sergio Hayes INHALE 2 PUFFS BY MOUTH TWICE DAILY 12-07 00:00: 00 Yes Sergio Hayes BREZTRI AEROSPHERE 160-9-4.8 MCG/ACT AERO 12-06 00:00: 00 Yes Sergio Hayes 1 TABLET PO BID 12-06 00:00: 00 10-20 00:00 :00 No 500 Sergio Hayes DEXMETHYLPH ENIDATE HYDROCHLORI DE ER 15 MG CP24 6- 00:00: 00 Yes Sergio Hayes Kenalog (Triamcinol one) Kenalog (Triamcinol one) 6-20 00:00: 00 No 40mg [facility] Kenalog (Triamcinol one) Kenalog (Triamcinol one) 6-20 00:00: 00 No 40mg [facility] Kenalog (Triamcinol one) Kenalog (Triamcinol one) 6-20 00:00: 00 No 40mg [facility] Kenalog (Triamcinol one) Kenalog (Triamcinol one) 0 6-20 00:00: 00 No [facility] Kenalog (Triamcinol one) Kenalog (Triamcinol one) 0 6-20 00:00: 00 No 40mg [facility] Kenalog (Triamcinol one) Kenalog (Triamcinol one) 0 6-20 00:00: 00 No 40mg [facility] TAKE 1 TABLET BY MOUTH DAILY 0 6-12 00:00: 00 Yes Sergio Hayes DEXLANSOPRA ZOLE 60 MG CPDR 0 6-01 00:00: 00 Yes Sergio Hayes DEXMETHYLPH ENIDATE 15MG ER CAPSULES 0 5-23 00:00: 00 Yes Sergio Hayes OLANZAPINE 5 MG TABS 0 5-23 00:00: 00 Yes Sergio Hayes ALPRAZOLAM 0.5 MG TABS 0 5-23 00:00: 00 Yes Sergio Hayes FLUOXETINE HYDROCHLORI DE 40 MG 0 5-23 00:00: 00 Yes Sergio Hayes DICYCLOMINE HYDROCHLORI DE 20 MG TABS 0 5-15 00:00: 00 Yes Sergio Hayes NITROFURANT OIN MONOHYDRATE 100 MG 0 5-04 00:00: 00 Yes Sergio Hayes TAKE 1 TABLET BY MOUTH DAILY 0 5-02 00:00: 00 Yes Sergio Hayes TAKE 1 TABLET BY MOUTH EVERY 4-6 HOURS NEEDED FOR PAIN 0 4-27 00:00: 00 Yes Sergio Hayes TAKE 1 TABLET BY MOUTH EVERY 12 HOURS X 7 DAYS 0 4-27 00:00: 00 Yes Sergio Hayes DEXMETHYLPH ENIDATE HYDROCHLORI DE ER 15 MG CP24 0 4-24 00:00: 00 Yes Sergio Hayes FAMOTIDINE 40 MG TABS 0 3-30 00:00: 00 Yes Sergio Hayes SUCRALFATE 1 GM TABS 0 3-27 00:00: 00 Yes Sergio Hayes metoprolol tartrate (Lopressor) 25 MG tablet 0 3-02 13:32: 19 Yes 50mg Take 50 mg by mouth. [facility] dexlansopra zole (Dexilant) [address] capsule 08-08 00:00: 00 Yes [facility] dexmethylph enidate XR (Focalin XR) 15 MG 24 hr capsule 2-24 00:00: 00 Yes [facility] ALPRAZOLAM 0.5MG TABLETS - 00:00: 00 Yes Sergio Hayes DEXMETHYLPH ENIDATE 15MG ER CAPSULES - 00:00: 00 Yes Sergio Hayes FLUOXETINE 40MG CAPSULES - 00:00: 00 Yes Sergio Hayes OLANZAPINE 5 MG TABS - 00:00: 00 Yes Sergio Hayes ONDANSETRON HYDROCHLORI DE 4 MG TABS 07-13 00:00: 00 Yes Sergio Hayes TAKE 1 CAPSULE BY MOUTH EVERY 12 HOURS UNTIL ALL TAKEN. 07-13 00:00: 00 Yes Sergio Hayes FAMOTIDINE 40 MG TABS - 00:00: 00 Yes Sergio Hayes ATORVASTATI N CALCIUM 20 MG TABS - 00:00: 00 Yes Sergio Hayes pantoprazol e (PROTONIX) EC tablet 40 mg 06-17 02:00: 00 Yes 40mg 40 mg, Oral, BID, First dose on Tue06/16/22 at 2000, Until Discontinu ed, Routine [facility] metoprolol tartrate (LOPRESSOR) 25 mg tablet 06-16 15:23: 23 Yes 50mg Take 50 mg by mouth in the morning and 50 mg in the evening. [facility] dicyclomine 20 mg tablet 06-16 15:23: 23 Yes 20mg Take 20 mg by mouth in the morning and 20 mg in the evening. [facility] FLUoxetine 40 mg capsule 06-16 15:23: 23 Yes 40mg Take 40 mg by mouth in the morning and 40 mg in the evening. [facility] OLANZapine 2.5 mg tablet 06-16 15:23: 23 Yes 1mg Take 1 mg by mouth in the morning and 1 mg in the evening. [facility] ALPRAZolam (XANAX) 1 mg tablet 06-16 15:23: 23 Yes 1mg Take 1 mg by mouth in the morning and 1 mg in the evening. [facility] pantoprazol e (PROTONIX) 40 mg EC tablet 06-16 11:30: 43 06-16 00:00 :00 No 40mg Take 40 mg by mouth in the morning and 40 mg in the evening. [facility] metoprolol tartrate (LOPRESSOR) 25 mg tablet 06-16 11:30: 39 Yes 50mg Take 50 mg by mouth in the morning and 50 mg in the evening. [facility] dicyclomine 20 mg tablet 06-16 11:30: 39 Yes 20mg Take 20 mg by mouth in the morning and 20 mg in the evening. [facility] FLUoxetine 40 mg capsule 06-16 11:30: 39 Yes 40mg Take 40 mg by mouth in the morning and 40 mg in the evening. [facility] OLANZapine 2.5 mg tablet 06-16 11:30: 39 Yes 1mg Take 1 mg by mouth in the morning and 1 mg in the evening. [facility] ALPRAZolam (XANAX) 1 mg tablet 06-16 11:30: 39 Yes 1mg Take 1 mg by mouth in the morning and 1 mg in the evening. [facility] pantoprazol e (ProtoNix) 40 MG EC tablet 06-16 00:00: 00 Yes 40mg Q.5D Take 40 mg by mouth 2 (two) times a day, in the morning and at bedtime. [facility] TAKE 1 TABLET BY MOUTH IN THE MORNING AND IN THE EVENING 06-16 00:00: 00 Yes Sergio Hayes dexmethylph enidate 15 mg 24 hr capsule 06-16 00:00: 00 Yes 15mg Take 1 capsule by mouth in the morning. [facility] lactated ringers IV infusion 500 mL 06-15 17:15: 00 06-15 17:45 :48 No 500mL at 100 mL/hr, 500 mL, Intravenou s, ONCE, 1 dose, On Tue06/15/22 at 1115, Routine [facility] dicyclomine (BENTYL) tablet 20 mg 06-15 15:00: 00 Yes 20mg 20 mg, Oral, BID, First dose on Tue06/15/22 at 0900, Until Discontinu ed, Routine [facility] pantoprazol e (PROTONIX) injection 40 mg 06-15 02:00: 00 Yes 40mg 40 mg, Slow IV Push, Q12H, First dose on Tue06/14/22 at 2000, Until Discontinu ed [facility] alum-mag hydroxide-s imeth (MAALOX PLUS / MAG-AL PLUS) 200-200-20 mg/5 mL suspension 30 mL 06-14 21:45: 09 Yes 30mL 30 mL, Oral, Q6HPRN, Starting on Tue06/14/22 at 1545, Until Discontinu ed, Routine, Indigestio n [facility] NaCl 0.9% (NS) injection 10 mL 06-14 21:43: 50 Yes 10mL 10 mL, Slow IV Push, PRN, Starting on Tue06/14/22 at 1543, Until Discontinu ed, Routine, line maintenanc e [facility] lidocaine 1% (PF) (XYLOCAINE) injection 5 mL 06-14 21:43: 49 Yes 5mL 5 mL, Subcutaneo us, PRN, Starting on Tue06/14/22 at 1543, Until Discontinu ed, Routine, Local anesthesia [facility] lactated ringers IV infusion 500 mL 06-14 18:45: 00 06-14 17:57 :02 No 500mL at 999 mL/hr, 500 mL, Intravenou s, ONCE, 1 dose, On Tue06/14/22 at 1245, Routine [facility] metoprolol (LOPRESSOR) injection 5 mg 06-14 18:30: 00 06-14 17:36 :00 No 5mg 5 mg, Intravenou s, ONCE, 1 dose, On Tue06/14/22 at 1230, Routine [facility] metoprolol (LOPRESSOR) injection 5 mg 06-14 18:00: 00 06-14 17:26 :00 No 5mg 5 mg, Intravenou s, ONCE, 1 dose, On Tue06/14/22 at 1200, Routine Univers y [facility] OLANZapine (ZyPREXA) tablet 1.25 mg 06-14 14:00: 00 Yes 1.25mg 1.25 mg, Oral, BID, First dose on Tue06/14/22 at 0800, Until Discontinu ed, Routine [facility] metoprolol tartrate (LOPRESSOR) tablet 50 mg 06-14 14:00: 00 Yes 50mg 50 mg, Oral, BID, First dose on Tue06/14/22 at 0800, Until Discontinu ed, Routine [facility] ALPRAZolam (XANAX) tablet 1 mg 06-14 14:00: 00 Yes 1mg 1 mg, Oral, BID, First dose on Tue06/14/22 at 0800, Until Discontinu ed, Routine [facility] iron sucrose (VENOFER) 200 mg in NaCl 0.9% (NS) 100 mL infusion 06-14 09:30: 00 06-14 14:12 :00 No 200mg 200 mg, IV Infusion, ONCE, Administer over 2.5 Hours, On Tue06/14/22 at 0330, For 1 dose [facility] KCL (KLOR-CON M20) tablet 20 mEq 06-14 09:00: 00 06-14 08:45 :00 No 20meq 20 mEq, Oral, ONCE, 1 dose, On Tue06/14/22 at 0300, Routine [facility] magnesium sulfate in water 2 gram/50 mL (4 %) infusion 2 g 06-14 09:00: 00 06-14 09:52 :00 No 2g 2 g, IV Piggyback, Administer over 60 Minutes, ONCE, 1 dose, On Tue06/14/22 at 0300, Routine [facility] NaCl 0.9% (NS) bolus infusion 2,000 mL 06-14 07:30: 00 06-14 08:43 :30 No 2000mL at 999 mL/hr, 2,000 mL, IV Piggyback, ONCE, 1 dose, On Tue06/14/22 at 0130, STAT [facility] guaiFENesin 100 mg/5 mL solution 200 mg 06-14 07:23: 38 Yes 200mg 200 mg, Oral, Q4HPRN, Starting on Tue06/14/22 at 0123, Until Discontinu ed, Routine, Cough [facility] pantoprazol e (PROTONIX) injection 40 mg 06-14 06:15: 00 06-14 06:38 :00 No 40mg 40 mg, Slow IV Push, Q12H, First dose on Tue06/14/22 at 0015, Until Discontinu ed [facility] acetaminoph en (TYLENOL) tablet 650 mg 06-14 06:14: 56 Yes 650mg 650 mg, Oral, Q6HPRN, Starting on Tue06/14/22 at 0014, Until Discontinu ed, Routine, Pain (scale 1-3) [facility] metoprolol tartrate (LOPRESSOR) 25 mg tablet 06-14 00:44: 38 Yes 50mg Take 50 mg by mouth in the morning and 50 mg in the evening. [facility] dicyclomine 20 mg tablet 06-14 00:44: 38 Yes 20mg Take 20 mg by mouth in the morning and 20 mg in the evening. [facility] FLUoxetine 40 mg capsule 06-14 00:44: 38 Yes 40mg Take 40 mg by mouth in the morning and 40 mg in the evening. [facility] OLANZapine 2.5 mg tablet 06-14 00:44: 38 Yes 1mg Take 1 mg by mouth in the morning and 1 mg in the evening. [facility] pantoprazol e (PROTONIX) 40 mg EC tablet 06-14 00:44: 38 Yes 40mg Take 40 mg by mouth in the morning and 40 mg in the evening. [facility] ALPRAZolam (XANAX) 1 mg tablet 06-14 00:44: 38 Yes 1mg Take 1 mg by mouth in the morning and 1 mg in the evening. [facility] clonazePAM (KLONOPIN) 1 mg tablet 06-14 00:44: 38 06-14 00:00 :00 No 1mg Take 1 mg by mouth as needed. [facility] TAKE 1 TABLET BY MOUTH EVERY 8 HOURS NEEDED FOR NAUSEA 2021-06 00:00: 00 Yes Sergio Hayes AZITHROMYCI N 250 MG TABS 2021-06 00:00: 00 Yes Sergio Hayes CEPHALEXIN 500 MG 2021-06 00:00: 00 Yes Sergio Hayes Lidocaine Lidocaine 2021-06 00:00: 00 No 10mg [facility] Kenalog (Triamcinol one) Kenalog (Triamcinol one) 2021-06 00:00: 00 No 40mg [facility] Lidocaine Lidocaine 2021-06 00:00: 00 No 10mg [facility] Kenalog (Triamcinol one) Kenalog (Triamcinol one) 2021-06 00:00: 00 No 40mg [facility] Lidocaine Lidocaine 2021-06 00:00: 00 No 10mg [facility] Kenalog (Triamcinol one) Kenalog (Triamcinol one) 2021-06 00:00: 00 No 40mg [facility] Lidocaine Lidocaine 2021-06 00:00: 00 No 10mg [facility] Kenalog (Triamcinol one) Kenalog (Triamcinol one) 2021-06 00:00: 00 No 40mg [facility] Lidocaine Lidocaine 2021-06 00:00: 00 No 10mg [facility] Kenalog (Triamcinol one) Kenalog (Triamcinol one) 2021-06 00:00: 00 No [facility]mg [facility] Lidocaine Lidocaine 2021-06 00:00: 00 No 10mg [facility] Kenalog (Triamcinol one) Kenalog (Triamcinol one) 2021-06 00:00: 00 No 40mg [facility] Lidocaine Lidocaine 2021-06 00:00: 00 No 10mg [facility] Kenalog (Triamcinol one) Kenalog (Triamcinol one) 2021-06 00:00: 00 No 40mg [facility] Lidocaine Lidocaine 2021-06 00:00: 00 No 10mg [facility] Kenalog (Triamcinol one) Kenalog (Triamcinol one) 2021-06 00:00: 00 No 40mg [facility] Lidocaine Lidocaine 2021-06 00:00: 00 No 10mg [facility] Kenalog (Triamcinol one) Kenalog (Triamcinol one) 2021-06 00:00: 00 No 40mg [facility] Lidocaine Lidocaine 2021-06 00:00: 00 No 10mg [facility] Kenalog (Triamcinol one) Kenalog (Triamcinol one) 2021-06 00:00: 00 No 40mg [facility] Lidocaine Lidocaine 2021-06 00:00: 00 No 10mg [facility] Kenalog (Triamcinol one) Kenalog (Triamcinol one) 2021-06 00:00: 00 No 40mg [facility] TAKE ONE CAPSULE BY MOUTH 1/2 BEFORE BREAKFAST OR 1ST MEAL 2021-06 00:00: 00 Yes Sergio Hayes Kenalog (Triamcinol one) Kenalog (Triamcinol one) 2021-06 00:00: 00 No 40mg [facility] Kenalog (Triamcinol one) Kenalog (Triamcinol one) 2021-06 00:00: 00 No 40mg [facility] Kenalog (Triamcinol one) Kenalog (Triamcinol one) 2021-06 00:00: 00 No 40mg [facility] Kenalog (Triamcinol one) Kenalog (Triamcinol one) 2021-06 00:00: 00 No 40mg [facility] Kenalog (Triamcinol one) Kenalog (Triamcinol one) 2021-06 00:00: 00 No 40mg [facility] Kenalog (Triamcinol one) Kenalog (Triamcinol one) 2021-06 00:00: 00 No 40mg [facility] Kenalog (Triamcinol one) Kenalog (Triamcinol one) 2021-06 00:00: 00 No 40mg [facility] Kenalog (Triamcinol one) Kenalog (Triamcinol one) 2021-06 00:00: 00 No 40mg [facility] Kenalog (Triamcinol one) Kenalog (Triamcinol one) 2021-06 00:00: 00 No 40mg [facility] Kenalog (Triamcinol one) Kenalog (Triamcinol one) 2021-06 00:00: 00 No 40mg [facility] Kenalog (Triamcinol one) Kenalog (Triamcinol one) 2021-06 00:00: 00 No 40mg [facility] Kenalog (Triamcinol one) Kenalog (Triamcinol one) 2021-06 00:00: 00 No 40mg [facility] Kenalog (Triamcinol one) Kenalog (Triamcinol one) 2021-06 00:00: 00 No 40mg [facility] DEXMETHYLPH ENIDATE 5MG TABLETS 2021-06 00:00: 00 Yes Sergio Hayes DEXMETHYLPH ENIDATE HYDROCHLORI DE ER 10 MG CP24 2021-06 00:00: 00 Yes Sergio Hayes ALPRAZOLAM 0.5MG TABLETS 2021-06 00:00: 00 Yes Sergio Hayes Kenalog (Triamcinol one) Kenalog (Triamcinol one) 2021-06 00:00: 00 No 40mg [facility] Kenalog (Triamcinol one) Kenalog (Triamcinol one) 2021-06 00:00: 00 No 40mg [facility] Kenalog (Triamcinol one) Kenalog (Triamcinol one) 2021-06 00:00: 00 No 40mg [facility] Kenalog (Triamcinol one) Kenalog (Triamcinol one) 2021-06 00:00: 00 No 40mg [facility] Kenalog (Triamcinol one) Kenalog (Triamcinol one) 2021-06 00:00: 00 No 40mg [facility] Kenalog (Triamcinol one) Kenalog (Triamcinol one) 2021-06 00:00: 00 No 40mg [facility] Kenalog (Triamcinol one) Kenalog (Triamcinol one) 2021-06 00:00: 00 No 40mg [facility] Kenalog (Triamcinol one) Kenalog (Triamcinol one) 2021-06 00:00: 00 No 40mg [facility] Kenalog (Triamcinol one) Kenalog (Triamcinol one) 2021-06 00:00: 00 No 40mg [facility] Kenalog (Triamcinol one) Kenalog (Triamcinol one) 2021-06 00:00: 00 No 40mg [facility] Kenalog (Triamcinol one) Kenalog (Triamcinol one) 2021-06 00:00: 00 No 40mg [facility] Kenalog (Triamcinol one) Kenalog (Triamcinol one) 2021-06 00:00: 00 No 40mg [facility] Kenalog (Triamcinol one) Kenalog (Triamcinol one) 2021-06 00:00: 00 No 40mg [facility] Kenalog (Triamcinol one) Kenalog (Triamcinol one) 2021-06 00:00: 00 No 40mg [facility] Kenalog (Triamcinol one) Kenalog (Triamcinol one) 2021-06 00:00: 00 No 40mg [facility] DICYCLOMINE HYDROCHLORI DE 20 MG TABS 2021-06 0-19 00:00: 00 Yes Sergio Melvin Freddy METOPROLOL TARTRATE 50 MG TABS 2021-06 0-18 00:00: 00 Yes Sergio Melvin Freddy AMPHETAMINE /DEXTROAMPH ETAMINE 15 MG TABS 2021-06 0-17 00:00: 00 Yes Sergio Charles Freddy Kenalog (Triamcinol one) Kenalog (Triamcinol one) 2021-06 0-12 00:00: 00 No 40mg [facility] Kenalog (Triamcinol one) Kenalog (Triamcinol one) 2021-06 0-12 00:00: 00 No 40mg [facility] Kenalog (Triamcinol one) Kenalog (Triamcinol one) 2021-06 0-12 00:00: 00 No 40mg [facility] Kenalog (Triamcinol one) Kenalog (Triamcinol one) 2021-06 0-12 00:00: 00 No 40mg [facility] Kenalog (Triamcinol one) Kenalog (Triamcinol one) 2021-06 0-12 00:00: 00 No 40mg [facility] Kenalog (Triamcinol one) Kenalog (Triamcinol one) 2021-06 0-12 00:00: 00 No 40mg [facility] Kenalog (Triamcinol one) Kenalog (Triamcinol one) 2021-06 0-12 00:00: 00 No 40mg [facility] Kenalog (Triamcinol one) Kenalog (Triamcinol one) 2021-06 0-12 00:00: 00 No 40mg [facility] Kenalog (Triamcinol one) Kenalog (Triamcinol one) 2021-06 0-12 00:00: 00 No 40mg [facility] Kenalog (Triamcinol one) Kenalog (Triamcinol one) 2021-06 0-12 00:00: 00 No 40mg [facility] Kenalog (Triamcinol one) Kenalog (Triamcinol one) 2021-06 0-12 00:00: 00 No 40mg [facility] Kenalog (Triamcinol one) Kenalog (Triamcinol one) 2021-06 0-12 00:00: 00 No 40mg [facility] Kenalog (Triamcinol one) Kenalog (Triamcinol one) 2021-06 0-12 00:00: 00 No 40mg [facility] Kenalog (Triamcinol one) Kenalog (Triamcinol one) 2021-06 0-12 00:00: 00 No 40mg [facility] Kenalog (Triamcinol one) Kenalog (Triamcinol one) 2021-06 0-12 00:00: 00 No 40mg [facility] Kenalog (Triamcinol one) Kenalog (Triamcinol one) 2021-06 0-12 00:00: 00 No 40mg [facility] Kenalog (Triamcinol one) Kenalog (Triamcinol one) 1 0-12 00:00: 00 No 40mg [facility] TAKE 1 TABLET BY MOUTH EVERY DAY 1 0-12 00:00: 00 Yes Sergio Hayes TAKE ONE CAPSULE BY MOUTH 1/2 BEFORE BREAKFAST OR 1ST MEAL 2021-0 9-29 00:00: 00 Yes Sergio Hayes D-AMPHETAMI NE SALT COMBO 15MG TABS 2021-0 9-22 00:00: 00 Yes Sergio Hayes OLANZAPINE 5MG TABLETS 0 9-22 00:00: 00 Yes Sergio Hayes TAKE 1 TABLET BY MOUTH TWICE DAILY NEEDED 2021-0 9-19 00:00: 00 Yes Sergio Hayes FLUOXETINE 40MG CAPSULES 0 8-25 00:00: 00 Yes Sergio Hayes D-AMPHETAMI NE SALT COMBO 15MG TABS 2021-0 8-23 00:00: 00 Yes Sergio Hayes FAMOTIDINE 40 MG TABS 2021-0 8-20 00:00: 00 Yes Sergio Hayes TAKE 1 TABLET BY MOUTH TWICE DAILY 2021-0 8-16 00:00: 00 Yes Sergio Hayes ALPRAZOLAM 0.5MG TABLETS 2021-0 7-26 00:00: 00 Yes Sergio Hayes FLUOXETINE 40MG CAPSULES 0 7-26 00:00: 00 Yes Sergio Hayes OLANZAPINE 5MG TABLETS 0 7-26 00:00: 00 Yes Sergio Hayes DEXLANSOPRA ZOLE 60 MG CPDR 0 7-25 00:00: 00 Yes Sergio Hayes TAKE 1 CAPSULE BY MOUTH EVERY DAY 0 7- 00:00: 00 Yes Sergio Hayes Bupivicaine Gillespie Bupivicaine Gillespie 2021-0 4-26 00:00: 00 No 2.5mg [facility] Kenalog (Triamcinol one) Kenalog (Triamcinol one) 2021-0 4-26 00:00: 00 No 40mg [facility] Bupivicaine Gillespie Bupivicaine Gillespie 2021-0 4-26 00:00: 00 No 2.5mg [facility] Kenalog (Triamcinol one) Kenalog (Triamcinol one) 0 10-06 00:00: 00 No 40mg [facility] Bupivicaine Gillespie Bupivicaine Gillespie 0 10-06 00:00: 00 No 2.5mg [facility] Kenalog (Triamcinol one) Kenalog (Triamcinol one) 0 10-06 00:00: 00 No 40mg [facility] Bupivicaine Gillespie Bupivicaine Gillespie 0 10-06 00:00: 00 No 2.5mg [facility] Kenalog (Triamcinol one) Kenalog (Triamcinol one) 0 10-06 00:00: 00 No 40mg [facility] Bupivicaine Gillespie Bupivicaine Gillespie 0 10-06 00:00: 00 No 2.5mg [facility] Kenalog (Triamcinol one) Kenalog (Triamcinol one) 0 10-06 00:00: 00 No 40mg [facility] Bupivicaine Gillespie Bupivicaine Gillespie 0 10-06 00:00: 00 No 2.5mg [facility] Kenalog (Triamcinol one) Kenalog (Triamcinol one) 0 10-06 00:00: 00 No 40mg [facility] Bupivicaine Gillespie Bupivicaine Gillespie 0 10-06 00:00: 00 No 2.5mg [facility] Kenalog (Triamcinol one) Kenalog (Triamcinol one) 0 10-06 00:00: 00 No 40mg [facility] Bupivicaine Gillespie Bupivicaine Gillespie 2021-0 10-06 00:00: 00 No 2.5mg [facility] Kenalog (Triamcinol one) Kenalog (Triamcinol one) 0 10-06 00:00: 00 No 40mg [facility] Bupivicaine Gillespie Bupivicaine Gillespie 0 10-06 00:00: 00 No 2.5mg [facility] Kenalog (Triamcinol one) Kenalog (Triamcinol one) 0 10-06 00:00: 00 No 40mg [facility] Bupivicaine Gillespie Bupivicaine Gillespie 0 10-06 00:00: 00 No 2.5mg [facility] Kenalog (Triamcinol one) Kenalog (Triamcinol one) 0 10-06 00:00: 00 No 40mg [facility] Bupivicaine Gillespie Bupivicaine Gillespie 0 10-06 00:00: 00 No 2.5mg [facility] Kenalog (Triamcinol one) Kenalog (Triamcinol one) 0 10-06 00:00: 00 No 40mg [facility] Bupivicaine Gillespie Bupivicaine Gillespie 0 10-06 00:00: 00 No 2.5mg [facility] Kenalog (Triamcinol one) Kenalog (Triamcinol one) 0 10-06 00:00: 00 No 40mg [facility] Bupivicaine Gillespie Bupivicaine Gillespie 0 10-06 00:00: 00 No 2.5mg [facility] Kenalog (Triamcinol one) Kenalog (Triamcinol one) 0 10-06 00:00: 00 No 40mg [facility] Bupivicaine Gillespie Bupivicaine Gillespie 0 10-06 00:00: 00 No 2.5mg [facility] Kenalog (Triamcinol one) Kenalog (Triamcinol one) 0 10-06 00:00: 00 No 40mg [facility] Bupivicaine Gillespie Bupivicaine Gillespie 2021-0 10-06 00:00: 00 No 2.5mg [facility] Kenalog (Triamcinol one) Kenalog (Triamcinol one) 0 10-06 00:00: 00 No 40mg [facility] Bupivicaine Gillespie Bupivicaine Gillespie 0 10-06 00:00: 00 No 2.5mg [facility] Kenalog (Triamcinol one) Kenalog (Triamcinol one) 0 10-06 00:00: 00 No 40mg [facility] Bupivicaine Gillespie Bupivicaine Gillespie 0 10-06 00:00: 00 No 2.5mg [facility] Kenalog (Triamcinol one) Kenalog (Triamcinol one) 10-06 00:00: 00 No 40mg [facility] Bupivicaine Gillespie Bupivicaine Gillespie 0 10-06 00:00: 00 No 2.5mg [facility] Kenalog (Triamcinol one) Kenalog (Triamcinol one) 0 10-06 00:00: 00 No 40mg [facility] Bupivicaine Gillespie Bupivicaine Gillespie 10-06 00:00: 00 No 2.5mg [facility] Kenalog (Triamcinol one) Kenalog (Triamcinol one) 0 10-06 00:00: 00 No 40mg [facility] Bupivicaine Gillespie Bupivicaine Gillespie 0 10-06 00:00: 00 No 2.5mg [facility] Kenalog (Triamcinol one) Kenalog (Triamcinol one) 0 10-06 00:00: 00 No 40mg [facility] Bupivicaine Gillespie Bupivicaine Gillespie 0 10-06 00:00: 00 No 2.5mg [facility] Kenalog (Triamcinol one) Kenalog (Triamcinol one) 0 4-26 00:00: 00 No 40mg [facility] Bupivicaine Gillespie Bupivicaine Gillespie 2021-0 - 00:00: 00 No 2.5mg [facility] Kenalog (Triamcinol one) Kenalog (Triamcinol one) 2021-0 - 00:00: 00 No 40mg [facility] Bupivicaine Gillespie Bupivicaine Gillespie 2021-0 - 00:00: 00 No 2.5mg [facility] Kenalog (Triamcinol one) Kenalog (Triamcinol one) 2021-0 - 00:00: 00 No 40mg [facility] Bupivicaine Gillespie Bupivicaine Gillespie 2021-0 10-06 00:00: 00 No 2.5mg [facility] Kenalog (Triamcinol one) Kenalog (Triamcinol one) 0 - 00:00: 00 No 40mg [facility] Dose Unknown 2021-0 3-15 00:00: 00 Yes Sergio Hayes Dose Unknown 2021-0 3-15 00:00: 00 Yes Sergio Hayes Dose Unknown 2021-0 3-15 00:00: 00 Yes Sergio Hayes Dose Unknown 2021-0 3-15 00:00: 00 Yes Sergio Hayes Dose Unknown 2021-0 3-15 00:00: 00 Yes Sergio Hayes methylPREDN [...] 00 No 16mg [facility] Synvisc Synvisc 2020-1 2-16 00:00: 00 No [facility]mg [facility] Synvisc Synvisc 2020-1 2-16 00:00: 00 No [facility] Synvisc Synvisc 2020- 2-16 00:00: 00 No [facility] Synvisc Synvisc 2020-1 2-16 00:00: 00 No [facility] Synvisc Synvisc 2020-1 2-16 00:00: 00 No [facility] Synvisc Synvisc 2020-1 2-16 00:00: 00 No [facility] Synvisc Synvisc 2020-1 2-16 00:00: 00 No [facility] Synvisc Synvisc 2020-1 2-16 00:00: 00 No [facility] Synvisc Synvisc 2020-1 2-16 00:00: 00 No [facility] Synvisc Synvisc 2020-1 2-16 00:00: 00 No [facility] Synvisc Synvisc 2020-1 2-16 00:00: 00 No [facility] Synvisc Synvisc 1-1 2-16 00:00: 00 No [facility] Synvisc Synvisc 2020-1 2-16 00:00: 00 No [facility]mg [facility] Synvisc Synvisc 2020-1 2-16 00:00: 00 No [facility]mg [facility] Synvisc Synvisc 2020-1 2-16 00:00: 00 No [facility] Synvisc Synvisc 2020-1 2-16 00:00: 00 No [facility] Synvisc Synvisc 2020-1 2-16 00:00: 00 No [facility]mg [facility] Synvisc Synvisc 2020-1 2-16 00:00: 00 No [facility] Synvisc Synvisc 2020-1 2-16 00:00: 00 No [facility] Synvisc Synvisc 2020-1 2-16 00:00: 00 No [facility] Synvisc Synvisc 2020-1 2-16 00:00: 00 No [facility] Synvisc Synvisc 2020-1 2-16 00:00: 00 No [facility] Synvisc Synvisc 2020-1 2-16 00:00: 00 No [facility] Synvisc Synvisc 2020-1 2-16 00:00: 00 No [facility] Synvisc Synvisc 2020-1 2-09 00:00: 00 No [facility] Synvisc Synvisc 2020-1 2- 00:00: 00 No [facility] Synvisc Synvisc 2020-1 2- 00:00: 00 No [facility] Synvisc Synvisc 2020- 2- 00:00: 00 No [facility] Synvisc Synvisc 2020- 2- 00:00: 00 No [facility] Synvisc Synvisc 2020-06 2 00:00: 00 No [facility] Synvisc Synvisc 2020-06 2 00:00: 00 No [facility] Synvisc Synvisc 2020- 2 00:00: 00 No [facility] Synvisc Synvisc 2020-06 2 00:00: 00 No [facility] Synvisc Synvisc 2020-06 2 00:00: 00 No [facility] Synvisc Synvisc 2020-06 2 00:00: 00 No [facility] Synvisc Synvisc 2020- 2- 00:00: 00 No [facility] Synvisc Synvisc 2020-06 2 00:00: 00 No [facility] Synvisc Synvisc 2020-06 2 00:00: 00 No [facility] Synvisc Synvisc 2020-06 2 00:00: 00 No [facility] Synvisc Synvisc 2020- 2- 00:00: 00 No [facility] Synvisc Synvisc 2020-06 2- 00:00: 00 No [facility] Synvisc Synvisc 2020- 2- 00:00: 00 No [facility] Synvisc Synvisc 2020-06 2- 00:00: 00 No [facility] Synvisc Synvisc 2020-06 2- 00:00: 00 No [facility] Synvisc Synvisc 2020-06 2- 00:00: 00 No [facility] Synvisc Synvisc 2020- 2- 00:00: 00 No [facility] Synvisc Synvisc 2020-06 2 00:00: 00 No [facility] Synvisc Synvisc 2020-06 2 00:00: 00 No [facility] Synvisc Synvisc 2020-06 2 00:00: 00 No [facility] Synvisc Synvisc 2020-06 2 00:00: 00 No [facility] Synvisc Synvisc 2020-06 2- 00:00: 00 No [facility] Synvisc Synvisc 2020-06 2- 00:00: 00 No [facility] Synvisc Synvisc 2020- 2- 00:00: 00 No [facility] Synvisc Synvisc 2020-06 2- 00:00: 00 No [facility] Synvisc Synvisc 2020- 2- 00:00: 00 No [facility] Synvisc Synvisc 2020- 2- 00:00: 00 No [facility] Synvisc Synvisc 2020- 2- 00:00: 00 No [facility] Synvisc Synvisc 2020- 2- 00:00: 00 No [facility] Synvisc Synvisc 2020- 2- 00:00: 00 No [facility] Synvisc Synvisc 2020- 2- 00:00: 00 No [facility] Synvisc Synvisc 2020- 2- 00:00: 00 No [facility] Synvisc Synvisc 2020-06 2- 00:00: 00 No [facility] Synvisc Synvisc 2020-06 2- 00:00: 00 No [facility] Synvisc Synvisc 2020-06 2- 00:00: 00 No [facility] Synvisc Synvisc 2020-06 2- 00:00: 00 No 16mg [facility] Synvisc Synvisc 2020-06 2- 00:00: 00 No 16mg [facility] Synvisc Synvisc 2020-06 2 00:00: 00 No 16mg [facility] Synvisc Synvisc 2020-06 2 00:00: 00 No 16mg [facility] Synvisc Synvisc 2020-06 2- 00:00: 00 No 16mg [facility] Synvisc Synvisc 2020-06 2 00:00: 00 No 16mg [facility] Synvisc Synvisc 2020-06 2- 00:00: 00 No 16mg [facility] Synvisc Synvisc 2020-06 2 00:00: 00 No 16mg [facility] Synvisc Synvisc 2020-06 2- 00:00: 00 No 16mg [facility] Synvisc Synvisc 2020-06 2- 00:00: 00 No 16mg [facility] Xarelto 20 MG Xarelto 20 [...] Take 1 mg by mouth as needed. [facility] metoprolol tartrate (LOPRESSOR) 25 mg tablet 11-25 13:28: 31 Yes 25mg Take 25 mg by mouth daily. [facility] dicyclomine 20 mg tablet 11-25 13:28: 31 Yes 20mg Take 20 mg by mouth daily. [facility] FLUoxetine (PROZAC) 40 mg capsule 11-25 13:28: 31 Yes 40mg Take 40 mg by mouth daily. [facility] OLANZapine 2.5 mg tablet 11-25 13:28: 31 Yes 2.5mg Take 2.5 mg by mouth 2 (two) times daily. [facility] lansoprazol e 30 mg capsule 11-25 12:19: 35 11-25 00:00 :00 No 30mg Take 30 mg by mouth daily. [facility] sucralfate 1 gram tablet 11-25 00:00: 00 01-25 04:59 :00 No [id number] 1g Take 1 tablet by mouth before meals and at bedtime for 60 days. [facility] olanzapine 5 mg disintegrat ing tablet 11-09 [...] 07-15 00:00: 00 07-30 05:59 :00 No [id number] 1g Take 1 tablet by mouth before meals and at bedtime for 14 days. [facility] desonide 0.05 % cream 06-30 00:00: 00 Yes APPLY TO THE AFFECTED AREA TWICE DAILY SPARINGLY AND RUB GENTLY [facility] Metoprolol Tartrate 50 MG Oral Tablet Metoprolol Tartrate 50 MG Oral Tablet 11-12 00:00: 00 No Metoprolol Tartrate 50 MG Oral Tablet Metoprolol Tartrate Metoprolol Tartrate Yes Nirmal Hancock 1 tablet with food [facility] Dicyclomine HCl Dicyclomine HCl Yes Nirmal Hancock TAKE 1 TABLET BY MOUTH TWICE DAILY NEEDED [facility] Premarin Premarin Yes Nirmal Hancock 1 tablet [facility] Hydrochloro thiazide Hydrochloro thiazide Yes Nirmal Hancock 1 tablet in the morning [facility] Adderall Adderall Yes Nirmal Hancock 1 tablet [facility] Lansoprazol e Lansoprazol e Yes Nirmal Hancock 1 capsule [facility] Clonazepam Clonazepam Yes Nirmal Hancock 1 tablet [facility] Duloxetine HCl Duloxetine HCl Yes Nirmal Hancock TK ONE C PO BID [facility] Adderall 30 MG Adderall 30 MG No [...] HIGH DOSE OVER 65 2022-05-20 14:18:00 Completed [facility] FLUZONE HIGH DOSE OVER 65 FLUZONE HIGH DOSE OVER 65 2022-05-20 14:18:00 Completed [facility] FLUZONE HIGH DOSE OVER 65 FLUZONE HIGH DOSE OVER 65 2022-05-20 14:18:00 Completed [facility] FLUZONE HIGH DOSE OVER 65 FLUZONE HIGH DOSE OVER 65 2022-05-20 14:18:00 Completed [facility] FLUZONE HIGH DOSE OVER 65 FLUZONE HIGH DOSE OVER 65 2022-05-20 14:18:00 Completed [facility] FLUZONE HIGH DOSE OVER 65 FLUZONE HIGH DOSE OVER 65 2022-05-20 14:18:00 Completed [facility] FLUZONE HIGH DOSE OVER 65 FLUZONE HIGH DOSE OVER 65 2022-05-20 14:18:00 Completed [facility] Afluria Afluria 2021-03-26 09:44:00 Completed [facility] Afluria Afluria 2021-03-26 09:44:00 Completed [facility] Afluria Afluria 2021-03-26 09:44:00 Completed [facility] Afluria Afluria 2021-03-26 09:44:00 Completed [facility] Afluria Afluria 2021-03-26 09:44:00 Completed [facility] Afluria Afluria 2021-03-26 09:44:00 Completed [facility] Afluria Afluria 2021-03-26 09:44:00 Completed [facility] Afluria Afluria 2021-03-26 09:44:00 Completed [facility] Afluria Afluria 2021-03-26 09:44:00 Completed [facility] Afluria Afluria 2021-03-26 09:44:00 Completed [facility] Afluria Afluria 2021-03-26 09:44:00 Completed [facility] Afluria Afluria 2021-03-26 09:44:00 Completed [facility] Afluria Afluria 2021-03-26 09:44:00 Completed [facility] Afluria Afluria 2021-03-26 09:44:00 Completed [facility] Afluria Afluria 2021-03-26 09:44:00 Completed [facility] Afluria Afluria 2021-03-26 09:44:00 Completed [facility] Afluria Afluria 2021-03-26 09:44:00 Completed [facility] Afluria Afluria 2021-03-26 09:44:00 Completed [facility] Afluria Afluria 2021-03-26 09:44:00 Completed [facility] Afluria Afluria 2021-03-26 09:44:00 Completed [facility] Afluria Afluria 2021-03-26 09:44:00 Completed [facility] Afluria Afluria 2021-03-26 09:44:00 [facility]pleted [facility] Afluria Afluria 2021-03-26 09:44:00 Completed [facility] Afluria Afluria 2021-03-26 09:44:00 Completed [facility] Afluria Afluria 2021-03-26 09:44:00 Completed [facility] Afluria Afluria 2021-03-26 09:44:00 Completed [facility] Afluria Afluria 2021-03-26 09:44:00 Completed [facility] Afluria Afluria 2021-03-26 09:44:00 Completed [facility] Afluria Afluria 2021-03-26 09:44:00 Completed [facility] Afluria Afluria 2021-03-26 09:44:00 Completed [facility] Afluria Afluria 2021-03-26 09:44:00 Completed [facility] Afluria Afluria 2021-03-26 09:44:00 Completed [facility] Afluria Afluria 2021-03-26 09:44:00 Completed [facility] Afluria Afluria 2021-03-26 09:44:00 Completed [facility] Afluria Afluria 2021-03-26 09:44:00 Completed [facility] Afluria Afluria 2021-03-26 09:44:00 Completed [facility] Afluria Afluria 2021-03-26 09:44:00 Completed [facility] Afluria Afluria 2021-03-26 09:44:00 Completed [facility] Afluria Afluria 2021-03-26 09:44:00 [facility] Moderna COVID-19 Vaccine 2020-08-23 00:00:00 Completed [facility] Pneumovax (PPSV23) Pneumovax (PPSV23) 2020-03-20 11:22:00 Completed [facility] Pneumovax (PPSV23) Pneumovax (PPSV23) 2020-03-20 11:22:00 Completed [facility] Pneumovax (PPSV23) Pneumovax (PPSV23) 2020-03-20 11:22:00 Completed [facility] Pneumovax (PPSV23) Pneumovax (PPSV23) 2020-03-20 11:22:00 Completed [facility] Pneumovax (PPSV23) Pneumovax (PPSV23) 2020-03-20 11:22:00 Completed [facility] Pneumovax (PPSV23) Pneumovax (PPSV23) 2020-03-20 11:22:00 Completed [facility] Pneumovax (PPSV23) Pneumovax (PPSV23) 2020-03-20 11:22:00 Completed [facility] Pneumovax (PPSV23) Pneumovax (PPSV23) 2020-03-20 11:22:00 Completed [facility] Pneumovax (PPSV23) Pneumovax (PPSV23) 2020-03-20 11:22:00 Completed [facility] Pneumovax (PPSV23) Pneumovax (PPSV23) 2020-03-20 11:22:00 Completed [facility] Pneumovax (PPSV23) Pneumovax (PPSV23) 2020-03-20 11:22:00 Completed [facility] Pneumovax (PPSV23) Pneumovax (PPSV23) 2020-03-20 11:22:00 Completed [facility] Pneumovax (PPSV23) Pneumovax (PPSV23) 2020-03-20 11:22:00 Completed [facility] Pneumovax (PPSV23) Pneumovax (PPSV23) 2020-03-20 11:22:00 Completed [facility] Pneumovax (PPSV23) Pneumovax (PPSV23) 2020-03-20 11:22:00 Completed [facility] Pneumovax (PPSV23) Pneumovax (PPSV23) 2020-03-20 11:22:00 Completed [facility] Pneumovax (PPSV23) Pneumovax (PPSV23) 2020-03-20 11:22:00 Completed [facility] Pneumovax (PPSV23) Pneumovax (PPSV23) 2020-03-20 11:22:00 Completed [facility] Pneumovax (PPSV23) Pneumovax (PPSV23) 2020-03-20 11:22:00 Completed [facility] Pneumovax (PPSV23) Pneumovax (PPSV23) 2020-03-20 11:22:00 Completed [facility] Pneumovax (PPSV23) Pneumovax (PPSV23) 2020-03-20 11:22:00 Completed [facility] Pneumovax (PPSV23) Pneumovax (PPSV23) 2020-03-20 11:22:00 Completed [facility] Pneumovax (PPSV23) Pneumovax (PPSV23) 2020-03-20 11:22:00 Completed [facility] Pneumovax (PPSV23) Pneumovax (PPSV23) 2020-03-20 11:22:00 Completed [facility] Pneumovax (PPSV23) Pneumovax (PPSV23) 2020-03-20 11:22:00 Completed [facility] Pneumovax (PPSV23) Pneumovax (PPSV23) 2020-03-20 11:22:00 Completed [facility] Pneumovax (PPSV23) Pneumovax (PPSV23) 2020-03-20 11:22:00 Completed [facility] Pneumovax (PPSV23) Pneumovax (PPSV23) 2020-03-20 11:22:00 Completed [facility] Pneumovax (PPSV23) Pneumovax (PPSV23) 2020-03-20 11:22:00 Completed [facility] Pneumovax (PPSV23) Pneumovax (PPSV23) 2020-03-20 11:22:00 Completed [facility] Pneumovax (PPSV23) Pneumovax (PPSV23) 2020-03-20 11:22:00 Completed [facility] Pneumovax (PPSV23) Pneumovax (PPSV23) 2020-03-20 11:22:00 Completed [facility] Pneumovax (PPSV23) Pneumovax (PPSV23) 2020-03-20 11:22:00 Completed [facility] Pneumovax (PPSV23) Pneumovax (PPSV23) 2020-03-20 11:22:00 Completed [facility] Pneumovax (PPSV23) Pneumovax (PPSV23) 2020-03-20 11:22:00 Completed [facility] Pneumovax (PPSV23) Pneumovax (PPSV23) 2020-03-20 11:22:00 Completed [facility] Pneumovax (PPSV23) Pneumovax (PPSV23) 2020-03-20 11:22:00 Completed [facility] Pneumovax (PPSV23) Pneumovax (PPSV23) 2020-03-20 11:22:00 Completed [facility] Pneumovax (PPSV23) Pneumovax (PPSV23) 2020-03-20 11:22:00 Completed [facility] Afluria single dose Afluria single dose 11:21:00 Completed [facility] Afluria single dose Afluria single dose 11:21:00 Completed [facility] Afluria single dose Afluria single dose 11:21:00 Completed [facility] Afluria single dose Afluria single dose 11:21:00 Completed [facility] Afluria single dose Afluria single dose 11:21:00 Completed [facility] Afluria single dose Afluria single dose 11:21:00 Completed [facility] Afluria single dose Afluria single dose 11:21:00 Completed [facility] Afluria single dose Afluria single dose 11:21:00 Completed [facility] Afluria single dose Afluria single dose 11:21:00 Completed [facility] Afluria single dose Afluria single dose 11:21:00 Completed [facility] Afluria single dose Afluria single dose 11:21:00 Completed [facility] Afluria single dose Afluria single dose 11:21:00 Completed [facility] Afluria single dose Afluria single dose 11:21:00 Completed [facility] Afluria single dose Afluria single dose 11:21:00 Completed [facility] Afluria single dose Afluria single dose 11:21:00 Completed [facility] Afluria single dose Afluria single dose 11:21:00 Completed [facility] Afluria single dose Afluria single dose 11:21:00 Completed [facility] Afluria single dose Afluria single dose 11:21:00 Completed [facility] Afluria single dose Afluria single dose 11:21:00 Completed [facility] Afluria single dose Afluria single dose 11:21:00 Completed [facility] Afluria single dose Afluria single dose 11:21:00 Completed [facility] Afluria single dose Afluria single dose 11:21:00 Completed [facility] Afluria single dose Afluria single dose 11:21:00 Completed [facility] Afluria single dose Afluria single dose 11:21:00 Completed [facility] Afluria single dose Afluria single dose 11:21:00 Completed [facility] Afluria single dose Afluria single dose 11:21:00 Completed [facility] Afluria single dose Afluria single dose 11:21:00 Completed [facility] Afluria single dose Afluria single dose 11:21:00 Completed [facility] Afluria single dose Afluria single dose 11:21:00 Completed [facility] Afluria single dose Afluria single dose 11:21:00 Completed [facility] Afluria single dose Afluria single dose 11:21:00 Completed [facility] Afluria single dose Afluria single dose 11:21:00 Completed [facility] Afluria single dose Afluria single dose 11:21:00 Completed [facility] Afluria single dose Afluria single dose 11:21:00 Completed [facility] Afluria single dose Afluria single dose 11:21:00 Completed [facility] Afluria single dose Afluria single dose 11:21:00 Completed [facility] Afluria single dose Afluria single dose 11:21:00 Completed [facility] Afluria single dose Afluria single dose 11:21:00 Completed [facility] Afluria single dose Afluria single dose 11:21:00 Completed [facility] Afluria single dose Afluria single dose Unknown Completed [facility] Afluria Afluria Unknown Completed [facility] Pneumovax (PPSV23) Pneumovax (PPSV23) Unknown Completed [facility] FLUZONE HIGH DOSE OVER 65 FLUZONE HIGH DOSE OVER 65 Unknown Completed [facility] Afluria single dose Afluria single dose Unknown Completed [facility] Afluria Afluria Unknown Completed [facility] Pneumovax (PPSV23) Pneumovax (PPSV23) Unknown Completed [facility] FLUZONE HIGH DOSE OVER 65 FLUZONE HIGH DOSE OVER 65 Unknown Completed [facility] Afluria single dose Afluria single dose Unknown Completed [facility] Afluria Afluria Unknown Completed [facility] Pneumovax (PPSV23) Pneumovax (PPSV23) Unknown Completed [facility] FLUZONE HIGH DOSE OVER 65 FLUZONE HIGH DOSE OVER 65 Unknown Completed [facility] Afluria single dose Afluria single dose Unknown Completed [facility] Afluria Afluria Unknown Completed [facility] Pneumovax (PPSV23) Pneumovax (PPSV23) Unknown Completed [facility] FLUZONE HIGH DOSE OVER 65 FLUZONE HIGH DOSE OVER 65 Unknown Completed [facility] Afluria single dose Afluria single dose Unknown Completed [facility] Afluria Afluria Unknown Completed [facility] Pneumovax (PPSV23) Pneumovax (PPSV23) Unknown Completed [facility] FLUZONE HIGH DOSE OVER 65 FLUZONE HIGH DOSE OVER 65 Unknown Completed [facility] Afluria (IIV4) - 3 years and older - SDS - 0.5mL Afluria (IIV4) - 3 years and older - SDS - 0.5mL Unknown Completed [facility] Afluria Afluria Unknown Completed [facility] Pneumovax (PPSV23) Pneumovax (PPSV23) Unknown Completed [facility] FLUZONE HIGH DOSE OVER 65 FLUZONE HIGH DOSE OVER 65 Unknown Completed [facility] Vital Signs Vital Name Observation Time Observation Value Comments Ana María escobar Body height 2023-09-27 15:46:00 [facility] Body weight 2023-09-27 15:46:00 60[facility]328 [facility] BMI 2023-09-27 15:46:[facility]30 11:10:00 60 [in_i] Commo n [facility] weight 2022-11-30 11:10:00 140.4 [lb_av] Co [facility] temperature 2022-11-30 11:10:00 97.2 [degF] Com [facility] bmi 2022-11-30 11:10:00 27.42 kg/m2 Comm on [facility] oximetry 2022-11-30 11:10:00 98 % Commo n [facility] respiratory rate 2022-11-30 11:10:00 18 /min [facility] blood pressure systolic 2022-11-30 11:10:00 115 mm[Hg] [facility] blood pressure diastolic 2022-11-30 11:10:00 68 mm[Hg] [facility] height 2022-11-30 11:30:00 60 [in_i] Commo n [facility] weight 2022-11-30 11:30:00 140.4 [lb_av] Co [facility] temperature 2022-11-30 11:30:00 97.2 [degF] Com [facility] bmi 2022-11-30 11:30:00 27.42 kg/m2 Comm on [facility] oximetry 2022-11-30 11:30:00 98 % Commo n [facility] respiratory rate 2022-11-30 11:30:00 18 /min [facility] blood pressure systolic 2022-11-30 11:30:00 115 mm[Hg] [facility] blood pressure diastolic 2022-11-30 11:30:00 68 mm[Hg] [facility] Systolic blood pressure 2022-06-16 17:38:00 113 mm[Hg] [facility] Diastolic blood pressure 2022-06-16 17:38:00 62 mm[Hg] [facility] Heart rate 2022-06-16 17:38:00 70 /min [facility] Body temperature 2022-06-16 17:38:00 36.67 [place] [facility] Respiratory rate 2022-06-16 17:38:00 16 /min [facility] Oxygen saturation in Arterial blood by Pulse oximetry 2022-06-16 17:38:00 95 /min [facility] Body height 2022-06-15 19:14:00 [facility] 2022-06-15 19:14:00 [facility]792 [facility] BMI 2022-06-15 19:14:00 24.02 kg/m2 [facility] Systolic blood pressure 2022-06-15 13:41:00 127 mm[Hg] [facility] Diastolic blood pressure 2022-06-15 13:41:00 62 mm[Hg] [facility] Heart rate 2022-06-15 13:41:00 71 /min [facility] Body temperature 2022-06-15 13:41:00 36.72 [place] [facility] Respiratory rate 2022-06-15 13:41:00 18 /min [facility] Oxygen saturation in Arterial blood by Pulse oximetry 2022-06-15 13:41:00 93 /min [facility] Body weight 2022-06-14 06:00:00 56 [facility] BMI 2022-06-14 06:00:00 24.02 kg/m2 [facility] height 2022-05-31 10:30:00 60 [in_i] [facility] weight 2022-05-31 10:30:00 143 [lb_av] Comm on [facility] temperature 2022-05-31 10:30:00 97.2 [degF] Com [facility] bmi 2022-05-31 10:30:00 27.92 kg/m2 Comm on [facility] blood pressure systolic 2022-05-31 10:30:00 134 mm[Hg] [facility] blood pressure diastolic 2022-05-31 10:30:00 62 mm[Hg] [facility] height 2022-05-20 13:50:00 60 [in_i] Commo n [facility] weight 2022-05-20 13:50:00 144.2 [lb_av] Co [facility] temperature 2022-05-20 13:50:00 97.6 [degF] Com [facility] bmi 2022-05-20 13:50:00 28.16 kg/m2 Comm on [facility] oximetry 2022-05-20 13:50:00 97 % Commo n [facility] respiratory rate 2022-05-20 13:50:00 17 /min [facility] blood pressure systolic 2022-05-20 13:50:00 131 mm[Hg] [facility] blood pressure diastolic 2022-05-20 13:50:00 60 mm[Hg] [facility] height 2022-03-24 10:10:00 60 [in_i] Commo n [facility] weight 2022-03-24 10:10:00 141.8 [lb_av] Co [facility] temperature 2022-03-24 10:10:00 97.3 [degF] Com [facility] bmi 2022-03-24 10:10:00 27.69 kg/m2 Comm on [facility] oximetry 2022-03-24 10:10:00 98 % Commo n [facility] respiratory rate 2022-03-24 10:10:00 18 /min [facility] blood pressure systolic 2022-03-24 10:10:00 132 mm[Hg] [facility] blood pressure diastolic 2022-03-24 10:10:00 72 mm[Hg] [facility] height 2022-01-05 13:30:00 60 [in_i] Commo n [facility] weight 2022-01-05 13:30:00 139 [lb_av] Comm on [facility] bmi 2022-01-05 13:30:00 27.14 kg/m2 Comm on [facility] blood pressure systolic 2022-01-05 13:30:00 112 mm[Hg] Common [facility] blood pressure diastolic 2022-01-05 13:30:00 78 mm[Hg] Common [facility] height 2021-12-02 09:50:00 60 [in_i] Commo n [facility] weight 2021-12-02 09:50:00 131.6 [lb_av] Co [facility] temperature 2021-12-02 09:50:00 97.3 [degF] Com mon [facility] bmi 2021-12-02 09:50:00 25.7 kg/m2 Commo n [facility] oximetry 2021-12-02 09:50:00 99 % Commo n [facility] respiratory rate 2021-12-02 09:50:00 17 /min [facility] blood pressure systolic 2021-12-02 09:50:00 119 mm[Hg] [facility] blood pressure diastolic 2021-12-02 09:50:00 58 mm[Hg] [facility] height 2021-10-06 15:00:00 60 [in_i] Commo n [facility] weight 2021-10-06 15:00:00 132.4 [lb_av] Co [facility] bmi 2021-10-06 15:00:00 25.85 kg/m2 Comm on [facility] blood pressure systolic 2021-10-06 15:00:00 104 mm[Hg] [facility] blood pressure diastolic 2021-10-06 15:00:00 58 mm[Hg] [facility] height 2021-09-07 14:30:00 60 [in_i] Commo n [facility] weight 2021-09-07 14:30:00 132 [lb_av] Comm on [facility] bmi 2021-09-07 14:30:00 25.78 kg/m2 Comm on [facility] blood pressure systolic 2021-09-07 14:30:00 134 mm[Hg] [facility] blood pressure diastolic 2021-09-07 14:30:00 84 mm[Hg] [facility] height 2021-07-30 14:30:00 60 [in_i] Commo n [facility] weight 2021-07-30 14:30:00 132 [lb_av] Comm on [facility] temperature 2021-07-30 14:30:00 98.0 [degF] Com mon [facility] bmi 2021-07-30 14:30:00 25.78 kg/m2 Comm on [facility] blood pressure systolic 2021-07-30 14:30:00 112 mm[Hg] [facility] blood pressure diastolic 2021-07-30 14:30:00 72 mm[Hg] [facility] height 2021-07-06 09:20:00 60 [in_i] Commo n [facility] weight 2021-07-06 09:20:00 131.4 [lb_av] Co [facility] temperature 2021-07-06 09:20:00 97.9 [degF] Com mon [facility] bmi 2021-07-06 09:20:00 25.66 kg/m2 Comm on [facility] oximetry 2021-07-06 09:20:00 99 % Commo n [facility] respiratory rate 2021-07-06 09:20:00 18 /min Common [facility] blood pressure systolic 2021-07-06 09:20:00 121 mm[Hg] [facility] [facility] diastolic 2021-07-06 09:20:00 57 mm[Hg] [facility] height 2021-07-06 08:30:00 60 [in_i] Commo n [facility] weight 2021-07-06 08:30:00 131.4 [lb_av] Co mmon [facility] temperature 2021-07-06 08:30:00 97.9 [degF] Com mon [facility] bmi 2021-07-06 08:30:00 25.66 kg/m2 Comm on [facility] oximetry 2021-07-06 08:30:00 99 % Commo n [facility] blood pressure systolic 2021-07-06 08:30:00 121 mm[Hg] [facility] blood pressure diastolic 2021-07-06 08:30:00 57 mm[Hg] [facility] height 2021-05-28 14:45:00 60 [in_i] Commo n [facility] weight 2021-05-28 14:45:00 132 [lb_av] Comm on [facility] temperature 2021-05-28 14:45:00 97.8 [degF] Com [facility] bmi 2021-05-28 14:45:00 25.78 kg/m2 Comm on [facility] blood pressure systolic 2021-05-28 14:45:00 124 mm[Hg] [facility] blood pressure diastolic 2021-05-28 14:45:00 80 mm[Hg] [facility] height 2021-05-21 14:30:00 60 [in_i] Commo n [facility] weight 2021-05-21 14:30:00 132 [lb_av] Comm on [facility] temperature 2021-05-21 14:30:00 97.6 [degF] Com [facility] bmi 2021-05-21 14:30:00 25.78 kg/m2 Comm on [facility] blood pressure systolic 2021-05-21 14:30:00 112 mm[Hg] Common [facility] blood pressure diastolic 2021-05-21 14:30:00 74 mm[Hg] Common [facility] height 2021-05-14 14:30:00 60 [in_i] Commo n [facility] weight 2021-05-14 14:30:00 132 [lb_av] Comm on [facility] temperature 2021-05-14 14:30:00 98.0 [degF] Com [facility] bmi 2021-05-14 14:30:00 25.78 kg/m2 Comm on [facility] blood pressure systolic 2021-05-14 14:30:00 100 mm[Hg] [facility] blood pressure diastolic 2021-05-14 14:30:00 60 mm[Hg] [facility] height 2021-04-20 09:30:00 60 [in_i] Commo n [facility] weight 2021-04-20 09:30:00 132 [lb_av] Comm on [facility] bmi 2021-04-20 09:30:00 25.78 kg/m2 Comm on [facility] height 2021-04-07 09:30:00 60 [in_i] Commo n [facility] weight 2021-04-07 09:30:00 132.6 [lb_av] Co mmon [facility] temperature 2021-04-07 09:30:00 97.7 [degF] Com [facility] bmi 2021-04-07 09:30:00 25.89 kg/m2 Comm on [facility] oximetry 2021-04-07 09:30:00 97 % Commo n [facility] respiratory rate 2021-04-07 09:30:00 16 /min Common [facility] blood pressure systolic 2021-04-07 09:30:00 121 mm[Hg] Common [facility] blood pressure diastolic 2021-04-07 09:30:00 56 mm[Hg] [facility] height 2021-03-26 09:50:00 60 [in_i] Commo n [facility] weight 2021-03-26 09:50:00 131.4 [lb_av] Co mmon [facility] temperature 2021-03-26 09:50:00 97.5 [degF] Com mon [facility] bmi 2021-03-26 09:50:00 25.66 kg/m2 Comm on [facility] oximetry 2021-03-26 09:50:00 98 % Commo n [facility] respiratory rate 2021-03-26 09:50:00 17 /min Common [facility] blood pressure systolic 2021-03-26 09:50:00 113 mm[Hg] Common [facility] blood pressure diastolic 2021-03-26 09:50:00 56 mm[Hg] [facility] Body height 2020-11-19 18:36:00 [facility].4 [facility] 2020-11-19 18:36:00 56.9 [facility] BMI 2020-11-19 18:36:00 24.50 kg/m2 [facility] Body height 2020-07-17 14:33:00 152.4 cm [facility] Body weight 2020-07-17 14:33:00 56.881 [facility] BMI 2020-07-17 14:33:00 24.49 kg/m2 [facility] BP Systolic 2024-02-07 07:51:00 120 mm[Hg] Step hen F Freddy BP Diastolic 2024-02-07 07:51:00 74 mm[Hg] Stepan phen F Freddy Weight Measured 2024-02-07 07:51:00 134.00 pounds Sergio F Freddy Height Measured 2024-02-07 07:51:00 59.00 inches Sergio F Freddy Body Temperature 2024-02-07 07:51:00 97.90 degrees Sergio F Freddy Heart Rate 2024-02-07 07:51:00 58.00 /min Leticia en F Freddy Respiratory Rate 2024-02-07 07:51:00 20.00 /min Sergio F Freddy BP Systolic 2023-09-28 09:00:00 120 mm[Hg] Step hen F Freddy BP Diastolic 2023-09-28 09:00:00 84 mm[Hg] Stepan phen F Freddy Weight Measured 2023-09-28 09:00:00 136.00 pounds Sergio [...] Systolic blood pressure 2022-06-15 17:07:00 109 mm[Hg] [facility] Diastolic blood pressure 2022-06-15 17:07:00 64 mm[Hg] [facility] Heart rate 2022-06-15 17:07:00 69 /min [facility] Body temperature 2022-06-15 17:07:00 36.5 [place] [facility] Respiratory rate 2022-06-15 17:07:00 17 /min [facility] Oxygen saturation in Arterial blood by Pulse oximetry 2022-06-15 17:07:00 93 /min [facility] Body weight 2022-06-14 06:00:00 56 [facility] BMI 2022-06-14 06:00:00 24.11 kg/m2 [facility] Body height 2020-11-25 14:44:00 152.4 cm [facility] Procedures Procedure Date / Time Performed Performing Clinician Source REFERRAL- REQUEST/RESPONSE 2022-12-04 05:01:00 Doctor Unassigned, [place] [facility] EXTERNAL PROVIDER RECORDS 2022-06-23 06:01:00 Doctor Unassigned, [place] [facility] CBC WITHOUT DIFF 2022-06-16 11:54:00 Lavon Monge [facility] CBC WITHOUT DIFF 2022-06-16 11:54:00 Lavon Monge [facility] MAGNESIUM 2022-06-15 21:55:00 Lavon Monge [facility] BASIC METABOLIC PANEL (NA, K , CL, CO2, GLUCOSE, BUN, CREATININE, CA) 2022-06-15 21:55:00 Lavon Monge [facility] CBC WITH DIFF 2022-06-15 21:55:00 Lavon Monge [facility] MAGNESIUM 2022-06-15 21:55:00 Lavon Monge [facility] BASIC METABOLIC PANEL (NA, K , CL, CO2, GLUCOSE, BUN, CREATININE, CA) 2022-06-15 21:55:00 Lavon Monge [facility] CBC WITH DIFF 2022-06-15 21:55:00 Lavon Monge [facility] ESOPHAGOGASTRODUODENOSCOPY 2022-06-15 19:37:00 Alexandru Austin [facility] ESOPHAGOGASTRODUODENOSCOPY 2022-06-15 19:37:00 Alexandru Austin [facility] EGD (ENDO) 2022-06-15 18:33:01 Mehnaz Tiffani [facility] EGD (ENDO) 2022-06-15 18:33:01 Tiffani Darby [facility] CBC WITHOUT DIFF 2022-06-14 22:38:00 Saleem [facility] TROPONIN I 2022-06-14 22:38:00 Saleem [facility] TROPONIN I 2022-06-14 22:38:00 Lavon Monge [facility] CBC WITHOUT DIFF 2022-06-14 22:38:[address] [facility] 2022-06-14 22:38:[address] [facility] CBC WITHOUT DIFF 2022-06-14 22:38:[address] [facility] ROUTINE & RHYTHM STRIP 2022-06-14 16:53:14 Kristan Monroe [facility] HB ECG ROUTINE & RHYTHM STRIP 2022-06-14 16:53:14 Kristan Monroe [facility] HB ECG ROUTINE & RHYTHM STRIP 2022-06-14 16:53:14 Kristan Monroe [facility] HB ECG ROUTINE & RHYTHM STRIP 2022-06-14 16:51:07 Noni [facility] HB ECG ROUTINE & RHYTHM STRIP 2022-06-14 16:51:07 Noni [facility] HB ECG ROUTINE & RHYTHM STRIP 2022-06-14 16:51:07 Noni [facility] URINALYSIS 2022-06-14 09:50:00 Noni [facility] URINE CULTURE 2022-06-14 09:50:00 Loglisa [facility] URINALYSIS 2022-06-14 09:50:00 Loglisa [facility] URINE CULTURE 2022-06-14 09:50:00 Noni [facility] URINALYSIS 2022-06-14 09:50:00 Noni [facility] URINE CULTURE 2022-06-14 09:50:00 [facility] 2022-06-14 09:37:00 [facility]W 2022-06-14 09:37:00 [facility]ST 1 VW 2022-06-14 09:37:00 Loglisa [facility] PROCALCITONIN 2022-06-14 07:13:00 Loglisa [facility] COVID-19 (ID NOW RAPID TESTING) 07:13:00 Noni [facility] LAB ONLY COVID INTERPRETATION 2022-06-14 07:13:00 Noni [facility] CBC WITH DIFF 2022-06-14 07:13:00 Noni [facility] COMP. METABOLIC PANEL (13853) 2022-06-14 07:13:00 Loglisa [facility] THYROID STIMULATING HORMONE 2022-06-14 07:13:00 Noni [facility] FREE T4 2022-06-14 07:13:00 Loglisa [facility] MAGNESIUM 2022-06-14 07:13:00 Loglisa [facility] PHOSPHORUS 2022-06-14 07:13:00 Loglisa [facility] GLYCOSYLATED HEMOGLOBIN (A1C) 2022-06-14 07:13:00 Loglisa [facility] LIPID PANEL (09814)(TOTAL CHOLESTEROL, TRIGLYCERIDES, HDL) 2022-06-14 07:13:00 Noni [facility] PROTHROMBIN TIME / INR 2022-06-14 07:13:00 Loglisa [facility] N-TERMINAL PRO-BNP 2022-06-14 07:13:00 Loglisa [facility] TROPONIN I 2022-06-14 07:13:00 [facility] 2022-06-14 07:13:00 Loglisa [facility] COVID-19 (ID NOW RAPID TESTING) 07:13:00 [facility] GAL[facility] - INFLUENZA A B RSV PCR 06-14 07:13:00 Loghin [facility] IRON PANEL 2022-06-14 07:13:00 Loghin [facility] FERRITIN SERUM 2022-06-14 07:13:00 Loghin [facility] VITAMIN B12, LEVEL 2022-06-14 07:13:00 Loghin [facility] FOLATE 2022-06-14 07:13:00 Loghidawna [facility] LAB ONLY COVID INTERPRETATION 2022-06-14 07:13:00 Loghin [facility] PHOSPHORUS 2022-06-14 07:13:00 Loghin [facility] MAGNESIUM 2022-06-14 07:13:00 Loghin [facility] FERRITIN SERUM 2022-06-14 07:13:00 Loglisa [facility] VITAMIN B12, LEVEL 2022-06-14 07:13:00 Loghidawna [facility] FOLATE 2022-06-14 07:13:00 Loglisa [facility] TROPONIN I 2022-06-14 07:13:00 Loghidawna [facility] FREE T4 2022-06-14 07:13:00 Loghin [facility] THYROID STIMULATING HORMONE 2022-06-14 07:13:00 Loglisa [facility] COMP. METABOLIC PANEL (53318) 2022-06-14 07:13:00 Loglisa [facility] LIPID PANEL (36312)(TOTAL CHOLESTEROL, TRIGLYCERIDES, HDL) 2022-06-14 07:13:00 Loghin [facility] IRON PANEL 2022-06-14 07:13:00 Loghin [facility] CBC WITH DIFF 2022-06-14 07:13:00 Loghidawna, [facility] GLYCOSYLATED HEMOGLOBIN (A1C) 2022-06-14 07:13:00 Loghidawna, [facility] PROTHROMBIN TIME / INR 2022-06-14 07:13:00 Loghidawna, [facility] GALV ONLY - INFLUENZA A B RSV PCR 06-14 07:13:00 Loghin, [facility] N-TERMINAL PRO-BNP 2022-06-14 07:13:00 Loghin, [facility] PROCALCITONIN 2022-06-14 07:13:00 Loghidawna, [facility] COVID-19 (ID NOW RAPID TESTING) 07:13:00 Loghin, [facility] LAB ONLY COVID INTERPRETATION 2022-06-14 07:13:00 Loghin, [facility] PHOSPHORUS 2022-06-14 07:13:00 Loghin, [facility] MAGNESIUM 2022-06-14 07:13:00 Loghin, [facility] FERRITIN SERUM 2022-06-14 07:13:00 Loglisa [facility] VITAMIN B12, LEVEL 2022-06-14 07:13:00 Loghin [facility] FOLATE 2022-06-14 07:13:00 Loghidawna [facility] TROPONIN I 2022-06-14 07:13:00 Loghidawna [facility] FREE T4 2022-06-14 07:13:00 Loghin [facility] THYROID STIMULATING HORMONE 2022-06-14 07:13:00 Loglisa, [facility] COMP. METABOLIC PANEL ([id number]) 2022-06-14 07:13:00 Loghidawna [facility] LIPID PANEL (75034)(TOTAL CHOLESTEROL, TRIGLYCERIDES, HDL) 2022-06-14 07:13:00 Loghin [facility] IRON PANEL 2022-06-14 07:13:00 Loghin Nate [facility] CBC WITH DIFF 2022-06-14 07:13:00 Nate Cheney [facility] GLYCOSYLATED HEMOGLOBIN (A1C) 2022-06-14 07:13:00 Nate Cheney [facility] PROTHROMBIN TIME / INR 2022-06-14 07:13:00 Nate Cheney [facility] GALV ONLY - INFLUENZA A B RSV PCR 06-14 07:13:00 Nate Cheney [facility] N-TERMINAL PRO-BNP 2022-06-14 07:13:00 Nate Cheney [facility] Encounters Start Date/Time End Date/Time Encounter Type Admission Type Attending [facility] Care Facility Care Department Encounter ID Source 2024-02-09 14:48:01 Outpatient No, PCP [facility] [id number] [facility] 2023-12-23 12:56:00 Outpatient Santi [facility] [id number] [facility] 2022-12-21 14:09:06 Outpatient [facility] [id number] [facility] 2022-12-03 10:02:37 Outpatient [facility] [id number] [facility] 2022-12-01 09:03:31 Outpatient [facility] [id number] [facility] 2022-09-08 10:20:56 Outpatient [facility] [id number] [facility] 2022-08-30 10:41:01 Outpatient [facility] [id number] [facility] 2022-08-23 10:00:40 Outpatient [facility] [id number] [facility] 2022-08-18 16:34:00 Outpatient Santi [facility] [id number] [facility] 2022-08-13 12:11:39 Outpatient [facility] [id number] [facility] 2022-08-12 13:17:04 Outpatient [facility] [id number] [facility] 2022-07-21 13:35:27 Outpatient [facility] [id number] [facility] 2022-06-24 08:59:26 Outpatient [facility] [id number] [facility] 2022-06-03 16:40:39 Outpatient [facility] [id number] [facility] 2022-05-31 11:39:01 Outpatient [place], [facility] ST[facility] [id number] [facility] 2022-05-19 14:43:00 Outpatient Hancock, Nirmal STLMLC STLMLC [id number] [facility] 2022-04-23 11:17:01 Outpatient Hancock, Nirmal STLC STLMLC [id number] [facility] 2022-04-17 11:08:00 Outpatient [place], [facility] ST[facility] STLMLC [id number] [facility] 2022-01-06 13:28:00 Outpatient [place], [facility] ST[facility] STLMLC [id number] [facility] 2021-11-02 09:01:18 Outpatient [place], [facility] ST[facility] STLMLC [id number] [facility] 2021-09-21 13:05:01 Outpatient [place], [facility] ST[facility] STLMLC [id number] [facility] 2021-07-29 10:19:01 Outpatient Hancock, Nirmal STLC STLMLC [id number] [facility] 2021-07-08 14:39:04 Outpatient [place], Nirmal STLMLC STLMLC [id number] [facility] 2021-07-08 14:11:57 Outpatient [place], Nirmal STLMLC STLMLC [id number] [facility] 2021-07-08 14:09:54 Outpatient [place], [facility] STLMLC [id number] [facility] 2021-07-08 12:46:03 Outpatient [facility], [facility] [id number] [facility] 2021-07-08 12:36:17 Outpatient Hancock, Nirm[facility] [id number] [facility] 2021-07-08 12:17:58 Outpatient Hancock, [facility]irm[facility] [id number] [facility] 2021-07-08 11:28:21 Outpatient Hancock, [facility]irm[facility] [id number] [facility] 2021-07-08 11:18:20 Outpatient Hancock, Nirm[facility] [id number] [facility] 2021-07-08 11:13:47 Outpatient Hancock, [facility]irm[facility] [id number] [facility] 2021-07-08 11:09:58 Outpatient Hancock, Nirmal [facility] [id number] [facility] 2021-07-08 11:08:14 Outpatient H[place], [facility]irm[facility] [id number] [facility] 2021-04-13 11:39:26 Outpatient Azam BESS NIVIA MESHA MAYORGA [id number] [facility] 2021-04-12 23:35:55 Outpatient Azam BESS NIVIA MESHA MAYORGA [id number] [facility] 2021-04-11 21:31:44 Outpatient Azam MARIA ALEJANDRA, NIVIA [facility] [id number] [facility] 2024-02-07 07:51:17 2024-02-07 07:51:17 Outpatient SFA DONNY [id number] Sergio Melvin Freddy 2024-02-07 00:00:00 2024-02-07 00:00:00 Outpatient Visit DONNY [id number] Sergio Hayes 2024-01-12 00:00:00 2024-01-12 00:00:00 (F/U) Follow Up Visit CLS CLS [id number] Jeramy carrillo 2023-12-30 00:00:00 2023-12-30 00:00:00 (TEL) CLS CLS [id number] Jeramy carrillo 2023-12-23 00:00:00 2023-12-23 00:00:00 Office Visit- Est Pt.- Level 3 CLS CLS [id number] Jeramy carrillo 2023-11-29 10:15:00 2023-11-29 10:15:00 Outpatient JODY ALBRECHT [facility] [id number] [facility] 2023-09-28 08:52:37 2023-09-28 08:52:37 Outpatient SFA SFA [id number] Sergio Hayes 2023-09-28 00:00:00 2023-09-28 00:00:00 Outpatient Visit SFA [id number] Sergio Hayes 2023-09-27 10:45:00 2023-09-27 11:03:25 Office Visit Jody Albrecht [facility] [id number] .[id number] [facility] 2023-08-11 00:00:00 2023-08-11 00:00:00 (TEL) [facility] [id number] [facility] 2023-08-02 00:00:00 2023-08-02 14:30:00 Outpatient [facility] [id number] [facility] 2023-08-02 11:30:00 2023-08-02 14:29:53 Office Visit JODY ALBRECHT [facility] [place] 2 [id number] [id number] [facility] 2023-07-26 11:18:45 2023-07-26 11:18:45 Outpatient SFA SFA [id number] Sergio Hayes 2023-06-28 11:00:00 2023-06-28 11:00:00 Outpatient JODY ALBRECHT [facility] [id number] [facility] 2023-05-31 13:45:00 2023-05-31 13:45:00 Office Visit Jody Albrecht [facility] 2 [id number] [id number] [facility] 2023-05-31 13:45:00 2023-05-31 13:32:51 Outpatient [facility] [id number] [facility] 2023-05-18 06:04:00 2023-05-18 14:10:00 Outpatient JODY ALBRECHT [facility] [id number] [facility] 2023-05-18 08:45:00 2023-05-18 08:45:00 Outpatient JODY ALBRECHT [facility] [id number] [facility] 2023-03-16 13:16:32 2023-03-16 13:16:32 Outpatient SFA SFA [id number] Sergio Hayes 2023-03-01 13:36:49 2023-03-01 13:36:49 Outpatient SFA SFA [id number] Sergio Hayes 2023-01-31 14:05:12 2023-01-31 14:05:12 Outpatient SFA SFA [id number] Sergio Hayes 2022-12-24 00:00:00 2022-12-24 00:00:00 Letter (Out) Nirmal Hancock [facility] 1.2.840.114 350.1.13.10 [id number] [id number] [facility] 2022-12-20 11:12:06 2022-12-20 11:12:06 Outpatient SFA SFA [id number] Sergio Hayes 2022-12-15 09:50:22 2022-12-15 09:50:22 Outpatient SFA SFA [id number] Sergio Hayes 2022-12-06 12:01:00 2022-12-06 12:01:00 Outpatient SFA SFA [id number] Sergio Hayes 2022-12-04 00:00:00 2022-12-04 00:00:00 Orders Only Doctor Unassigned, [place] [facility] 1.2.840.114 350.1.13.10 [id number] [id number] [facility] 2022-11-30 00:00:00 2022-11-30 00:00:00 OFFICE VISIT ESTAB PT LEVEL 4 [facility] [id number] [facility] 2022-11-30 00:00:00 2022-11-30 00:00:00 SUB ANNUAL [facility] WELLNESS VISIT [facility] [id number] [facility] 2022-11-30 00:00:00 2022-11-30 00:00:00 (TEL) [facility] [id number] [facility] 2022-11-30 00:00:00 2022-11-30 00:00:00 (TEL) [facility] [id number] [facility] 2022-11-11 13:00:00 2022-11-11 14:42:42 Office Visit Jody Albrecht [facility] 2 1.2.840.114 [id number] [id number] [facility] 2022-09-15 00:00:00 2022-09-15 00:00:00 Telephone Betito Steele [facility] 1.2.840.114 350.1.13.10 [id number] [id number] [facility] 2022-09-14 11:30:00 2022-09-14 11:30:00 Outpatient LUPE DHALIWAL [facility] [id number] [facility] 2022-08-12 00:00:00 2022-08-12 15:52:50 Outpatient [facility] [id number] [facility] 2022-08-12 13:15:00 2022-08-12 14:24:05 Office Visit Jody Albrecht [facility] 2 1..840.114 350.1.13.58 [id number] [id number] [facility] 2022-07-21 00:00:00 2022-07-21 00:00:00 (TEL) ST[facility]C [facility] [id number] [facility] 2022-06-23 00:00:00 2022-06-23 00:00:00 Orders Only Doctor Unassigned, [place] [facility] 1.84.114 350.1.13.10 4.2.7.2.686 [id number] [facility] 2022-06-22 11:00:00 2022-06-22 11:00:00 Outpatient JODY ALBRECHT [facility] [id number] [facility] 2022-06-17 00:00:00 2022-06-17 00:00:00 Transition of Care Dino Mayer SHELBYManish CATES 1.840.114 350.1.13.10 [id number] [id number] [facility] 2022-06-13 23:46:00 2022-06-16 15:23:00 Inpatient U TIFFANI DARBY [facility] [id number] [facility] 2022-06-13 23:46:00 2022-06-16 15:23:00 [facility].114 350.1.13.10 4.2.7.2.686 [id number] [facility] 2022-06-15 12:52:00 2022-06-15 12:52:00 Anesthesia Event Sharif Castañeda 1..840.1 27713.1.1 3.104.2.7 [id number] [facility] 2022-06-15 09:23:00 2022-06-15 09:59:00 Surgery Alexandru Austin [facility] 1.2.840.114 350.1.13.10 4.2.7.2.686 [id number] [facility] [facility]-14 12:05:59 2022-06-14 12:05:59 Anesthesia Event Kristan Monroe 1.2.840.1 84901.1.1 3.104.2.7 .3.459600 .8 [id number] [facility] 2022-06-14 00:00:00 2022-06-14 00:00:00 Travel 1.2.840.1 [id number] 3.104.2.7 .3.775252 .8 1.2.840.114 350.1.13.10 4.2.7.3.698 084.8 [id number] [facility] 2022-06-02 00:00:00 2022-06-02 00:00:00 (TEL) STLMLC STLMLC [id number] [facility] 2022-06-01 00:00:00 2022-06-01 00:00:00 (TEL) STLMLC STLMLC [id number] [facility] 2022-05-31 00:00:00 2022-05-31 00:00:00 OFFICE VISIT EST PT LEVEL 3 STLMLC STLMLC [id number] [facility] 2022-05-25 00:00:00 2022-05-25 00:00:00 (TEL) STLMLC STLMLC [id number] [facility] 2022-05-20 00:00:00 2022-05-20 00:00:00 OFFICE VISIT ESTAB PT LEVEL 4 STLMLC STLMLC [id number] [facility] 2022-04-23 00:00:00 2022-04-23 00:00:00 (TEL) STLMLC STLMLC [id number] [facility] 2022-04-16 00:00:00 2022-04-16 00:00:00 (TEL) STLMLC STLMLC [id number] [facility] 2022-03-30 00:00:00 2022-03-30 00:00:00 (TEL) STLMLC STLMLC [id number] [facility] 2022-03-24 00:00:00 2022-03-24 00:00:00 (HOSP F/U) Hospital Follow Up STLMLC STLMLC [id number] [facility] 2022-03-14 00:00:00 2022-03-14 00:00:00 (TEL) STLMLC STLMLC [id number] [facility] 2022-03-10 00:00:00 2022-03-10 00:00:00 (TEL) STLMLC STLMLC [id number] [facility] 2022-03-09 00:00:00 2022-03-09 00:00:00 (TEL) STLMLC STLMLC [id number] [facility] 2022-02-03 00:00:00 2022-02-03 00:00:00 (TEL) STLMLC STLMLC [id number] [facility] 2022-01-08 00:00:00 2022-01-08 00:00:00 (TEL) STLMLC STLMLC [id number] [facility] 2022-01-05 00:00:00 2022-01-05 00:00:00 OFFICE VISIT ESTAB PT LEVEL 4 STLMLC STLMLC [id number] [facility] 2021-12-07 00:00:00 2021-12-07 00:00:00 (TEL) STLMLC STLMLC [id number] [facility] 2021-12-02 00:00:00 2021-12-02 00:00:00 OFFICE VISIT ESTAB PT LEVEL 4 STLMLC STLMLC [id number] [facility] 2021-10-06 00:00:00 2021-10-06 00:00:00 OFFICE VISIT ESTAB PT LEVEL 4 STLMLC STLMLC [id number] [facility] 2021-09-07 00:00:00 2021-09-07 00:00:00 OFFICE VISIT ESTAB PT LEVEL 4 STLMLC STLMLC [id number] [facility] 2021-08-13 00:00:00 2021-08-13 00:00:00 (TEL) STLMLC STLMLC [id number] [facility] 2021-07-31 00:00:00 2021-07-31 00:00:00 (TEL) STLMLC STLMLC [id number] [facility] 2021-07-30 00:00:00 2021-07-30 00:00:00 OFFICE VISIT ESTAB PT LEVEL 4 STLMLC STLMLC [id number] [facility] 2021-07-19 00:00:00 2021-07-19 00:00:00 Rob Bess [facility] ([facility]) 1.2.840.114 350.1.13.10 4.2.7.2.686 [id number] [facility] 2021-07-06 00:00:00 2021-07-06 00:00:00 OFFICE VISIT ESTAB PT LEVEL 4 STLMLC STLMLC [id number] [facility] 2021-07-06 00:00:00 2021-07-06 00:00:00 SUB ANNUAL [facility] VISIT STLMLC STLMLC [id number] [facility] 2021-07-03 00:00:00 2021-07-03 00:00:00 (TEL) STLMLC STLMLC [id number] [facility] 2021-06-23 00:00:00 2021-06-23 00:00:00 (TEL) STLMLC STLMLC [id number] [facility] 2021-06-22 00:00:00 2021-06-22 00:00:00 (TEL) STLMLC STLMLC [id number] [facility] 2021-05-28 00:00:00 2021-05-28 00:00:00 (IN/ASP) INJ ASP STLMLC STLMLC [id number] [facility] 2021-05-21 00:00:00 2021-05-21 00:00:00 (IN/ASP) INJ ASP STLMLC STLMLC [id number] [facility] 2021-05-14 00:00:00 2021-05-14 00:00:00 (IN/ASP) INJ ASP STLMLC STLMLC [id number] [facility] 2021-04-28 00:00:00 2021-04-28 00:00:00 (TEL) STLMLC STLMLC [id number] [facility] 2021-04-27 00:00:00 2021-04-27 00:00:00 (TEL) STLMLC STLMLC [id number] [facility] 2021-04-24 00:00:00 2021-04-24 00:00:00 (TEL) STLMLC STLMLC [id number] [facility] 2021-04-20 00:00:00 2021-04-20 00:00:00 OFFICE VISIT NEW PT LEVEL 4 STLMLC STLMLC [id number] [facility] 2021-04-07 00:00:00 2021-04-07 00:00:00 (HOSP F/U) Hospital Follow Up STLMLC STLMLC [id number] [facility] 2021-04-02 00:00:00 2021-04-02 00:00:00 (TEL) STLMLC STLMLC [id number] [facility] 2021-03-26 00:00:00 2021-03-26 00:00:00 OFFICE VISIT ESTAB PT LEVEL 4 STLMLC STLMLC [id number] [facility] 2021-03-03 00:00:00 2021-03-03 00:00:00 Outpatient STLMLC STLMLC [id number] [facility] 2021-02-27 00:00:00 2021-02-27 00:00:00 Outpatient STLMLC STLMLC [id number] [facility] 2021-02-25 00:00:00 2021-02-25 00:00:00 Outpatient STLMLC STLMLC [id number] [facility] 2021-01-21 00:00:00 2021-01-21 00:00:00 Outpatient STLMLC STLMLC [id number] [facility] 2021-01-19 00:00:00 2021-01-19 00:00:00 Outpatient STLMLC STLMLC [id number] [facility] 2021-01-16 11:30:00 2021-01-16 11:30:00 Outpatient R [facility] [id number] [facility] 2021-01-14 08:50:00 2021-01-14 08:55:00 Pre-Anesth esia Evaluation Call, Clc Apac Phone [facility] ([facility]) 1.2.840.114 350.1.13.10 4.2.7.2.686 [id number] [facility] 2021-01-13 07:25:00 2021-01-13 07:30:00 Pre-Anesth esia Evaluation Call, Clc Apac Phone [facility] ([facility]) 1.2.840.114 350.1.13.10 4.2.7.2.686 [id number] [facility] 2020-12-24 00:00:00 2020-12-24 00:00:00 Outpatient STLMLC STLMLC [id number] [facility] 2020-12-24 00:00:00 2020-12-24 00:00:00 Outpatient STLMLC STLMLC [id number] [facility] 2020-12-24 00:00:00 2020-12-24 00:00:00 Outpatient STLC STLMLC [id number] [facility] 2020-12-19 00:00:00 2020-12-19 00:00:00 Outpatient STLMLC STLMLC [id number] [facility] 2020-12-18 00:00:00 2020-12-18 00:00:00 Outpatient STLC STLC [id number] [facility] 2020-11-25 09:18:00 2020-11-25 13:13:00 Hospital Encounter [facility] ([facility]) 1.2.840.114 350.1.13.10 4.2.7.2.686 [id number] 2020-11-25 11:00:00 2020-11-25 12:14:00 Surgery [facility] ([facility]) 1.2.840.114 350.1.13.10 4.2.7.2.686 [id number] 2020-11-25 00:00:00 2020-11-25 00:00:00 Orders Only Doctor Unassigned, [place] [facility] 1.2.840.114 350.1.13.10 4.2.7.2.686 [id number] 2020-11-25 00:00:00 2020-11-25 00:00:00 Prep For Surgery [facility] 1.2.840.114 350.1.13.10 4.2.7.2.686 [id number] 2020-11-25 00:00:00 2020-11-25 00:00:00 Refill [facility] ([facility]) 1.2.840.114 350.1.13.10 4.2.7.2.686 [id number] 2020-11-25 00:00:00 2020-11-25 00:00:00 Refill Maria Alejandra, [facility] ([facility]) 1.2.840.114 350.1.13.10 4.2.7.2.686 [id number] 2020-11-24 07:55:00 2020-11-24 08:00:00 Pre-Anesth esia Evaluation Call, Clc Apac Phone [facility] ([facility]) 1.2.840.114 350.1.13.10 4.2.7.2.686 [id number] [facility] 2020-11-21 12:15:00 2020-11-21 12:20:00 Pre-Anesth esia Evaluation Call, Clc Apac Phone [facility] ([facility]) 1.2.840.114 350.1.13.10 4.2.7.2.686 [id number] [facility] 2020-11-19 13:30:00 2020-11-19 13:35:00 Pre-Anesth esia Evaluation Call, Clc Apac Phone [facility] ([facility]) 1.2.840.114 350.1.13.10 4.2.7.2.686 [id number] [facility] 2020-11-14 00:00:00 2020-11-14 00:00:00 Outpatient STLMLC STLMLC [id number] [facility] 2020-11-12 00:00:00 2020-11-12 00:00:00 Outpatient STLMLC STLMLC [id number] [facility] 2020-11-03 00:00:00 2020-11-03 00:00:00 Prep For Surgery Maria Alejandra, [facility] 1.2.840.114 350.1.13.10 4.2.7.2.686 [id number] 2020-10-31 00:00:00 2020-10-31 00:00:00 Telephone Maria Alejandra, [facility] 1.2.840.114 350.1.13.10 4.2.7.2.686 [id number] 2020-10-24 00:00:00 2020-10-24 00:00:00 Outpatient STLMLC STLMLC [id number] [facility] 2020-10-15 00:00:00 2020-10-15 00:00:00 Outpatient STLMLC STLMLC [id number] [facility] 2020-07-23 11:51:15 2020-07-23 12:06:15 Laboratory Only Only, Adc Test [facility] 1.2840.114 350.1.13.10 4.2.7.2.686 [id number] 2020-07-23 11:00:00 2020-07-23 11:00:00 Outpatient R [facility] [id number] [facility] 2020-07-23 10:55:00 2020-07-23 11:00:00 Pre-Anesth esia Evaluation Call, Clc ApaLivevol Phone [facility] ([facility]) 1.2840.114 350.1.13.10 4.2.7.2.686 [id number] [facility] 2020-07-23 00:00:00 2020-07-23 00:00:00 Orders Only Doctor Unassigned, [place] [facility] 1.2840.114 350.1.13.10 4.2.7.2.686 [id number] 2020-07-21 08:35:00 2020-07-21 08:40:00 Pre-Anesth esia Evaluation Call, Clc ApaLivevol Phone [facility] ([facility]) 1.2840.114 350.1.13.10 4.2.7.2.686 [id number] [facility] 2020-07-18 07:25:00 2020-07-18 07:30:00 Pre-Anesth esia Evaluation Call, Clc ApaLivevol Phone [facility] ([facility]) 1.2.840.114 350.1.13.10 4.2.7.2.686 [id number] [facility] 2020-07-18 00:00:00 2020-07-18 00:00:00 Outpatient STLMLC STLMLC [id number] [facility] 2020-07-17 08:35:00 2020-07-17 08:40:00 Pre-Anesth esia Evaluation Call, [facility] Apac Phone [facility] ([facility]) 1.2.840.114 350.1.13.10 4.2.7.2.686 [id number] [facility] 2020-07-15 13:45:51 2020-07-15 14:15:51 Office Visit Nivia Bess [facility] 1.2.840.114 350.1.13.10 4.2.7.2.686 [id number] 2020-07-15 13:45:00 2020-07-15 13:45:00 Outpatient NIVIA BANEGAS [facility] [id number] [facility] 2020-06-18 00:00:00 2020-06-18 00:00:00 Outpatient STLMLC STLMLC [id number] [facility] 2020-06-17 08:30:00 2020-06-17 08:30:00 Outpatient JOE HOLLINS [facility] [id number] [facility] 2020-06-09 09:00:00 2020-06-09 09:00:00 Outpatient R [facility] [id number] [facility] 2020-05-15 00:00:00 2020-05-15 00:00:00 Outpatient STLMLC STLMLC [id number] [facility] 2020-05-13 09:00:00 2020-05-13 09:00:00 Outpatient JOE HOLLINS [facility] [id number] [facility] 2020-04-17 00:00:00 2020-04-17 00:00:00 Outpatient STLMLC STLMLC [id number] [facility] 2020-04-11 00:00:00 2020-04-11 00:00:00 Outpatient STLMLC STLMLC [id number] [facility] 2020-04-08 00:00:00 2020-04-08 00:00:00 Outpatient STLMLC STLMLC [id number] [facility] 2020-03-20 00:00:00 2020-03-20 00:00:00 Outpatient STLMLC STLMLC [id number] [facility] 2019-12-19 10:45:00 2019-12-19 10:45:[address] [facility] [id number] [facility] 2019-12-19 10:00:00 2019-12-19 10:00:[address] [facility] [id number] [facility] 2019-12-03 10:17:00 2019-12-03 10:17:[address] [facility] [id number] [facility] 2019-12-03 09:59:00 2019-12-03 09:59:[address] [facility] [id number] [facility] 2019-11-29 09:45:00 2019-11-29 09:45:[address] [facility] [id number] [facility] 2019-11-13 11:17:00 2019-11-13 11:17:[address] [facility] [id number] [facility] 2019-11-06 15:08:00 2019-11-06 15:08:[address] [facility] [id number] [facility] 2019-11-01 16:03:00 2019-11-01 16:03:00 [facility] [id number] [facility] 2019-10-31 09:15:00 2019-10-31 09:15:00 [facility] [id number] [facility] 2019-10-01 10:00:00 2019-10-01 10:00:00 [facility] [id number] [facility] 2019-08-27 14:00:00 2019-08-27 14:00:00 [facility] [id number] [facility] 2019-07-30 11:00:00 2019-07-30 11:00:00 [facility] [id number] [facility] 2019-07-18 01:45:00 2019-07-18 01:45:00 Outpatient PAULA[facility]ENJIE [facility] [id number] [facility] Program Results Test Description Test Time Test Comments Results Result Co mments Source Sergio Charles [facility] W/AUTO [id number] 00:00:00* Test Item Value Reference Range Interpretation [...] ABS NUCLEATED RBCS (test cod e = 63943) 0.00 K/UL Sergio Charles AustinURINALYSIS W/REFLEX [id number] 00:00:00* Test Item Value Reference Range Interpretation [...] 0-2 /HPF EPITHELIAL CELLS (test code = 27974) 0-5 /HPF BACTERIA (test code = 1515) NONE SEEN CASTS, HYALINE (test code = 1517) MODERATE Sergio Charles FreddyPROTHROMBIN TIME (PT)2023-03-11 00:00:00* Test Item Value Reference Range Interpretation Comme nts PROTHROMBIN TIME (PT) (test code = 1402) 14.8 SECONDS INR (test code = 07114) 1.1 Sergio F FreddyCOMPREHENSIVE METABOLIC [id number] 00:00:00* Test Item Value Reference Range Interpretation Comme nts GLUCOSE (test code = 2217) 126 MG/DL BUN (test code = 2208) 15 MG/DL CREATININE (test code = 2214) 1.04 MG/DL eGFR (2020 CKD-EPI) (test co de = 55681) 60 ML/MIN/1.73 CALC BUN/CREAT (test code = 2235) 14 RATIO SODIUM (test code = 2231) 139 MEQ/L POTASSIUM (test code = 2228) 4.8 MEQ/L CHLORIDE (test code = 2215) 106 MEQ/L CARBON DIOXIDE (test code = 2206) 16 MEQ/L CALCIUM (test code = 2209) 10.2 MG/DL PROTEIN, TOTAL (test code = 2229) 7.3 G/DL ALBUMIN (test code = 2201) 4.7 G/DL CALC GLOBULIN (test code = 2240) 2.6 G/DL CALC A/G RATIO (test code = 2234) 1.8 RATIO BILIRUBIN, TOTAL (test code = 2207) <0.2 MG/DL ALKALINE PHOSPHATASE (test code = 2204) 167 U/L AST (test code = 2218) 36 U/L ALT (test code = 2219) 70 U/L Sergio Charles [facility] W/AUTO [id number] 00:00:00* Test Item Value Reference Range Interpretation [...] ABS NUCLEATED RBCS (test cod e = 44340) 0.00 K/UL Sergio HayesURINALYSIS W/REFLEX [id number] 00:00:00* Test Item Value Reference Range Interpretation [...] 0-2 /HPF EPITHELIAL CELLS (test code = 62248) 0-5 /HPF BACTERIA (test code = 1515) NONE SEEN CASTS, HYALINE (test code = 1517) MODERATE Sergio HayesPROTHROMBIN TIME (PT)2023-03-11 00:00:00* Test Item Value Reference Range Interpretation Comme nts PROTHROMBIN TIME (PT) (test code = 1402) 14.8 SECONDS INR (test code = 93328) 1.1 Sergio HayesCBC W/AUTO [id number] 00:00:00* Test Item Value Reference Range Interpretation [...] ABS NUCLEATED RBCS (test cod e = 85935) 0.00 K/UL Sergio HayesLIPID [id number] 00:00:00* Test Item Value Reference Range Interpretation Comme nts CHOLESTEROL (test code = 2210) 216 MG/DL TRIGLYCERIDES (test code = 2232) 291 MG/DL HDL CHOLESTEROL (test code = 2220) 55 MG/DL CALC LDL CHOL (test code = 2237) 116 MG/DL RISK RATIO LDL/HDL (test cod e = 2238) 2.11 RATIO Sergio HayesCOMPREHENSIVE METABOLIC [id number] 00:00:00* Test Item Value Reference Range Interpretation Comme nts GLUCOSE (test code = 2217) 109 MG/DL BUN (test code = 2208) 36 MG/DL CREATININE (test code = 2214) 0.96 MG/DL eGFR (2020 CKD-EPI) (test co de = 21583) 66 ML/MIN/1.73 CALC BUN/CREAT (test code = [...] (test code = 2219) 58 U/L Sergio HayesURINALYSIS W/REFLEX [id number] 00:00:00* Test Item Value Reference Range Interpretation [...] 3-5 /HPF EPITHELIAL CELLS (test code = 04084) 0-5 /HPF BACTERIA (test code = 1515) 3+ CASTS, HYALINE (test code = 1517) TRACE Sergio Charles [id number] 00:00:00* Test Item Value Reference Range Interpretation Comme nts PTT (test code = 1403) 34.4 SECONDS Sergio HayesCBC W/AUTO [id number] 00:00:00* Test Item Value Reference Range Interpretation [...] ABS NUCLEATED RBCS (test cod e = 73783) 0.00 K/UL Sergio Charles KilleenLIPID [id number] 00:00:00* Test Item Value Reference Range Interpretation Comme nts CHOLESTEROL (test code = 2210) 216 MG/DL TRIGLYCERIDES (test code = 2232) 291 MG/DL HDL CHOLESTEROL (test code = 2220) 55 MG/DL CALC LDL CHOL (test code = 2237) 116 MG/DL RISK RATIO LDL/HDL (test cod e = 2238) 2.11 RATIO Sergio HayesCOMPREHENSIVE METABOLIC [id number] 00:00:00* Test Item Value Reference Range Interpretation Comme nts GLUCOSE (test code = 2217) 109 MG/DL BUN (test code = 2208) 36 MG/DL CREATININE (test code = 2214) 0.96 MG/DL eGFR (2020 CKD-EPI) (test co de = 44654) 66 ML/MIN/1.73 CALC BUN/CREAT (test code = [...] 2219) 58 U/L Sergio Charles AustinURINALYSIS W/REFLEX [id number] 00:00:00* Test Item Value Reference Range Interpretation [...] 3-5 /HPF EPITHELIAL CELLS (test code = 48195) 0-5 /HPF BACTERIA (test code = 1515) 3+ CASTS, HYALINE (test code = 1517) TRACE Sergio Charles [id number] 00:00:00* Test Item Value Reference Range Interpretation Comme nts PTT (test code = 1403) 34.4 SECONDS Sergio Charles FreddyBASIC METABOLIC PANEL (NA, K, CL, CO2, GLUCOSE, BUN, CREATININE, CA)2022-06-15 22:23:06* Test Item Value Reference Range Interpretation Comme nts NA (test code = 4447148273) 138 mmol/L 135-145 K (test code = 3685747290) 4.0 mmol/L 3.5-5.0 CL (test code = 6169705227) 106 mmol/L 98-108 CO2 TOTAL (test code = 7969263481) 27 mmol/L 23-31 AGAP (test code = 5434313759) 2-16 BUN (test code = 9887519913) 9 mg/dL 7-23 GLUCOSE (test code = 2594470804) 90 mg/dL 70-110 CREATININE (test code = 1056750119) 0.83 mg/dL 0.50-1.04 CALCIUM (test code = 3680791748) 9.2 mg/dL 8.6-10.6 eGFR (test code = 6279171251) mL/min/1.73m2 PEBBLES (test code = PEBBLES) Association [...] or urine or abnormalities in imaging tests). [facility]:23[facility]* Test Item Value Reference Range Interpretation Comme nts MAGNESIUM (test code = 1471321711) 1.9 mg/dL 1.7-2.4 Lab Interpretation (test cod e = 01063-6) [facility] (NA, K, CL, CO2, GLUCOSE, BUN, CREATININE, CA)2022-06-15 22:23:06* Test Item Value Reference Range Interpretation Comme nts NA (test code = 8334897302) 138 mmol/L 135-145 K (test code = 1467689092) 4.0 mmol/L 3.5-5.0 CL (test code = 6877809541) 106 mmol/L 98-108 CO2 TOTAL (test code = 7696873853) 27 mmol/L 23-31 AGAP (test code = 9584495736) 2-16 BUN (test code = 6175284847) 9 mg/dL 7-23 GLUCOSE (test code = 0934729468) 90 mg/dL 70-110 CREATININE (test code = 7267489239) 0.83 mg/dL 0.50-1.04 CALCIUM (test code = 9211307888) 9.2 mg/dL 8.6-10.6 eGFR (test code = 6420588241) mL/min/1.73m2 PEBBLES (test code = PEBBLES) Association [...] or urine or abnormalities in imaging tests). [facility] 22:23:06* Test Item Value Reference Range Interpretation Comme nts MAGNESIUM (test code = 7296931072) 1.9 mg/dL 1.7-2.4 Lab Interpretation (test cod e = 68166-5) Normal [facility] WITH [id number] 22:16:47* Test Item Value Reference Range Interpretation [...] 33.0 g/dL 31.6-35.1 RDW-SD (test code = 97586-5) 47.9 fL 39.0-49.9 RDW-CV (test code = 788-0) 13.8 % 12.0-15.5 PLT (test code = 777-3) See_Comment H [Automated messa ge] The system which generated this result transmitted reference range: 166 - 358 10*3/?L. The reference range was not used to interpret this result as normal/abnormal. MPV (test code = 10901-1) 9.6 fL 9.5-12.9 NRBC/100 WBC (test code = 6027707546) See_Comment [Automated Verical ssage] The system which generated this result transmitted reference range: 0.0 - 10.0 /100 WBCs. The reference range was not used to interpret this result as normal/abnormal. NRBC x10^3 (test code = 1738169135) See_Comment [Automated messa ge] The system which generated this result transmitted reference range: 10*3/?L. The reference range was not used to interpret this result as normal/abnormal. GRAN MAT (NEUT) % (test code = 770-8) 71.6 % IMM GRAN % (test code = 2302846306) 0.90 % LYMPH % (test code = 736-9) 14.8 % MONO % (test code = 5905-5) 9.9 % EOS % (test code = 713-8) 2.3 % BASO % (test code = 706-2) 0.5 % GRAN MAT x10^3(ANC) (test code = 6104471746) 6.19 10*3/uL 1.88-7.09 IMM GRAN x10^3 (test code = 5906598423) 0.08 10*3/uL 0.00-0.06 H LYMPH x10^3 (test code = 731-0) 1.28 10*3/uL 1.32-3.29 L MONO x10^3 (test code = 742-7) 0.86 10*3/uL 0.33-0.92 EOS x10^3 (test code = 711-2) 0.20 10*3/uL 0.03-0.39 BASO x10^3 (test code = 704-7) 0.04 10*3/uL 0.01-0.07 Lab Interpretation (test code = 70547-4) Abnormal [facility] WITH [id number] 22:16:47* Test Item Value Reference Range Interpretation [...] 33.0 g/dL 31.6-35.1 RDW-SD (test code = 28900-9) 47.9 fL 39.0-49.9 RDW-CV (test code = 788-0) 13.8 % 12.0-15.5 PLT (test code = 777-3) See_Comment H [Automated messa ge] The system which generated this result transmitted reference range: 166 - 358 10*3/?L. The reference range was not used to interpret this result as normal/abnormal. MPV (test code = 97398-6) 9.6 fL 9.5-12.9 NRBC/100 WBC (test code = 3459932269) See_Comment [Automated Verical ssage] The system which generated this result transmitted reference range: 0.0 - 10.0 /100 WBCs. The reference range was not used to interpret this result as normal/abnormal. NRBC x10^3 (test code = 5474207936) See_Comment [Automated messa ge] The system which generated this result transmitted reference range: 10*3/?L. The reference range was not used to interpret this result as normal/abnormal. GRAN MAT (NEUT) % (test code = 770-8) 71.6 % IMM GRAN % (test code = 2191868252) 0.90 % LYMPH % (test code = 736-9) 14.8 % MONO % (test code = 5905-5) 9.9 % EOS % (test code = 713-8) 2.3 % BASO % (test code = 706-2) 0.5 % GRAN MAT x10^3(ANC) (test code = 8471254925) 6.19 10*3/uL 1.88-7.09 IMM GRAN x10^3 (test code = 5732176096) 0.08 10*3/uL 0.00-0.06 H LYMPH x10^3 (test code = 731-0) 1.28 10*3/uL 1.32-3.29 L MONO x10^3 (test code = 742-7) 0.86 10*3/uL 0.33-0.92 EOS x10^3 (test code = 711-2) 0.20 10*3/uL 0.03-0.39 BASO x10^3 (test code = 704-7) 0.04 10*3/uL 0.01-0.07 Lab Interpretation (test code = 94564-0) Abnormal [facility] Notes Date/Time Note Provider Source Sergio Skye [facility]2024-04-17 [facility]
[2024-02-27] MEDS ORDERED: ADENOSINE 6 MG/ 2ML VIAL IV ONE (11:13)
[2024-02-27] MEDS ORDERED: NA CHLORIDE 0.9% 1,000 ML ONE (11:14)
[2024-02-27 11:36] LABS: Absolute Basophils 0.1 K/uL (0-0.5); Absolute Monocytes 1.1 K/uL (0.1-1.3); Absolute Neutrophil 7.6 K/uL (1.8-8.0); Basophils % 1.2 % (0-1.3); Eosinophils % 0.4 % (0-4.4); Hematocrit 44.1 % (36.0-45.0); Hemoglobin 14.1 g/dL (12.0-15.0); Lymphocytes % 18.4 % (15.3-44.8); MCH 30.5 pg (27.0-35.0); MCHC 31.9 g/dL (32.0-36.0); MCV 95.5 fL (80-100); MPV 9.6 fL (7.6-11.3); Monocytes % 10.1 % (3.3-12.3); Neutrophils % 69.9 % (41.7-73.7); Nucleated Red Blood Cells % 0.1 % (0-0); Platelets 463 thou/uL (152-406); RBC Red Blood Cell Count 4.62 M/uL (3.86-4.86); Red Cell Distribution Width 14.6 % (12.1-15.2)
[2024-02-27 11:54] LABS: Anion Gap 12.6 mEq/L (5.0-15.0); Troponin High Sensitivity 4.6 pg/mL (<58.9)
[2024-02-27 11:55] LABS: Potassium 4.6 mEq/L (3.5-5.1)
--- NOTE | 2024-02-27 12:17 | RAD REPORT ---
Procedure: Chest Single View History: Shortness of breath Comparison: September 2023 The lungs appear clear of acute infiltrate. No significant pleural effusion noted. The heart is normal size. Moderate hiatal hernia. IMPRESSION: No acute abnormality is displayed.
--- NOTE | 2024-02-27 12:59 | EDPHYS ---
Physician Documentation [facility] Name: Martha Pradhan Age: 63 yrs Sex: Female : 1960 Arrival Date: 02/27/2024 Time: 10:50 Bed 2 Private MD: ED Physician Diane Calzada HPI: 02/26 11:42 This 63 yrs old Female presents to ER via EMS with complaints of General gb1 Weakness - High heart rate-SVT. Historical: - Allergies: 11:34 haloperidol lactate; ph 11:34 hydroxyzine HCl; ph 11:34 Hydroxyzine Pamoate; ph 11:34 Ibuprofen; ph 11:34 Lyrica; ph 11:34 meloxicam; ph 11:34 nalbuphine HCl; ph 11:34 Naproxen; ph 11:34 NSAIDS (Non-Steroidal Anti-Inflammatory Drug); ph 11:34 Nubain; ph 11:34 Risperdal; ph 11:34 Vistaril; ph - PMHx: 11:34 ADD/ADHD; Back pain; Anxiety; Arthritis; bleeding ulcers; Chronic pain; GERD; Irritable ph bowel syndrome; Osteoporosis; PE; restless leg syndrome; Tachycardia; ULCER; - PSHx: 11:34 Appendectomy; hysterectomy; left clavicle repair; ph - Immunization history:: Adult Immunizations unknown. - Infectious Disease History:: Denies. - Social history:: Smoking status: unknown. Exam: 11:42 Constitutional: This is a well developed, well nourished patient who is pale and gb1 diaphoretic, but she awake, alert, and in no acute distress. Head/Face: Normocephalic, atraumatic. Eyes: Pupils equal round and reactive to light, extra-ocular motions intact. Lids and lashes normal. Conjunctiva and sclera are non-icteric and not injected. Cornea within normal limits. Periorbital areas with no swelling, redness, or edema. ENT: Nares patent. No nasal discharge, no septal abnormalities noted. Tympanic membranes are normal and external auditory canals are clear. Oropharynx with no redness, swelling, or masses, exudates, or evidence of obstruction, uvula midline. Mucous membranes moist. Neck: Trachea midline, no thyromegaly or masses palpated, and no cervical lymphadenopathy. Supple, full range of motion without nuchal rigidity, or vertebral point tenderness. No Meningismus. Chest/axilla: Normal chest wall appearance and motion. Nontender with no deformity. No lesions are appreciated. Cardiovascular: Tachycardic rate and regular rhythm with a normal S1 and S2. No gallops, murmurs, or rubs. Normal PMI, no JVD. No pulse deficits. Respiratory: Lungs have equal breath sounds bilaterally, clear to auscultation and percussion. No rales, rhonchi or wheezes noted. No increased work of breathing, no retractions or nasal flaring. Abdomen/GI: Soft, non-tender, with normal bowel sounds. No distension or tympany. No guarding or rebound. No evidence of tenderness throughout. Skin: Pale and diaphoretic. Normal color with no rashes, no lesions, and no evidence of cellulitis. MS/ Extremity: Pulses equal, no cyanosis. Neurovascular intact. Full, normal range of motion. Neuro: Awake and alert, GCS 15, oriented to person, place, time, and situation. Cranial nerves II-XII grossly intact. Motor strength 5/5 in all extremities. Sensory grossly intact. Cerebellar exam normal. Normal gait. Vital Signs: 10:50 BP 98 / 80; Pulse 148; Resp 24; Temp 97; Pulse Ox 99% on R/A; Weight 58.97 kg; Height 5 ph ft. 3 in. ; 11:38 BP 114 / 71; Pulse 77; Resp 18; Pulse Ox 98% on R/A; ph 13:05 BP 117 / 52; Pulse 76; Resp 18; Temp 97.9; Pulse Ox 99% on R/A; ph 10:50 Body Mass Index 23.03 (58.97 kg, 160.02 cm) ph MDM: 11:05 Patient medically screened. gb1 11:42 Differential diagnosis: abnormal EKG, acute myocardial infarction, anxiety, pleurisy, gb1 pneumonia, stable angina, unstable angina. Data reviewed: vital signs, nurses notes, lab test result(s), cardiac enzymes, CBC, electrolytes, radiologic studies, plain films. ED course: 63-year-old female that presents generally weak who presents with acute SVT on room 150. I did evaluate her EKG at 10:47 AM. Patient tolerated chemical cardioversion with adenosine 6 mg IV quite well. She converted into normal sinus rhythm and I have reviewed the EKG at 1123 that showed a rate of 83 bpm patient at this time has no untoward effects from chemical cardioversion and I will continue to observe her for disposition home. Patient's tape calender is Dr. Luevano so I will attempt to contact to share the plan for this patient.. 13:00 ED course: Patient has stayed in normal sinus rhythm at a rate of 68 bpm NSR, I spoke gb1 with the patient's established tape calender Dr. Oneill by phone and he did agree that he would see her in 1 week's time. Given the patient is exposed return precautions I did note that her creatinine today is 1.6 versus her baseline between 1.3 and 1.4. I will ask her to follow-up with her primary care physician regarding that minimal elevation. Patient does not have any chest pain or shortness of breath at time of discharge home. I have asked the bedside nurse to share discharge instructions for which she will prior to discharge home today.. 02/26 11:05 Order name: Basic Metabolic Panel; Complete Time: 12:37 02/26 11:05 Order name: CBC with Diff; Complete Time: 12:37 02/26 11:05 Order name: Troponin HS; Complete Time: 12:37 02/26 11:05 Order name: XRAY Chest (1 view); Complete Time: 12:37 02/26 11:05 Order name: EKG; Complete Time: 11:06 02/26 11:05 Order name: Cardiac monitoring; Complete Time: 11:37 02/26 11:05 Order name: EKG - Nurse/Tech; Complete Time: 11:37 02/26 11:05 Order name: IV Saline Lock; Complete Time: 11:37 02/26 11:05 Order name: Labs collected and sent; Complete Time: 11:37 02/26 11:05 Order name: O2 Per Protocol; Complete Time: 11:37 02/26 11:05 Order name: O2 Sat Monitoring; Complete Time: 11:37 gb Administered Medications: 11:20 Drug: Adenocard IVP 6 mg IVP once Route: IVP; Site: left forearm; ph 11:38 Follow up: Response: No adverse reaction; Cardiac rhythm changed ph Disposition Summary: 02/27/24 12:59 Discharge Ordered Notes: Location: Home gb1 Condition: Fair gb1 Problem: an acute exacerbation gb1 Symptoms: have improved gb1 Diagnosis - Supraventricular tachycardia gb1 Discharge Instructions: - Discharge Summary Sheet gb1 - Supraventricular Tachycardia, Adult gb1 Forms: - Medication Reconciliation Form gb1 - Antibiotic Education gb1 - Prescription Opioid Use gb1 - Patient Portal Instructions gb1 - Leadership Thank You Letter gb1 Signatures: Dispatcher [employer] Sharda Malhotra RN RN ph Elsi, MD NAY Contreras gb1
--- NOTE | 2024-02-27 12:59 | ER ---
Nurse's Notes [facility] Name: Martha Pradhan Age: 63 yrs Sex: Female : 1960 Arrival Date: 02/27/2024 Time: 10:50 Bed 2 Private MD: Diagnosis: Supraventricular tachycardia Presentation: 02/26 10:50 Chief complaint: EMS states: SVT that started this morning around 0830, hx of SVT, c/o ph generalized weakness, sweating, and mild SOB, usually converts w/ adenosine IVP but EMS had difficulty obtaining IV access. HR 140s-180s. Coronavirus screen: Vaccine status: Patient reports receiving the 2nd dose of the covid vaccine. Ebola Screen: No symptoms or risks identified at this time. Initial Sepsis Screen: Does the patient meet any 2 criteria? No. Patient's initial sepsis screen is negative. Does the patient have a suspected source of infection? No. Patient's initial sepsis screen is negative. Risk Assessment: Do you want to hurt yourself or someone else? Patient reports no desire to harm self or others. Onset of symptoms was February 27, 2024. 10:50 Method Of Arrival: EMS: [facility] ph 10:50 Acuity: ROSALBA 2 ph Triage Assessment: 10:50 General: Appears in no apparent distress. well groomed, Behavior is calm, cooperative. ph Pain: Denies pain. Neuro: Level of Consciousness is awake, alert, obeys commands, Oriented to person, place, time, situation, Reports weakness in right leg and left leg. Cardiovascular: Reports fatigue, lightheadedness, shortness of breath, Capillary refill is > 3 seconds in bilateral fingers Patient's skin is warm and dry. Rhythm is SVT. Respiratory: Airway is patent Respiratory effort is even, unlabored. Musculoskeletal: Circulation, motion, and sensation intact. Historical: - Allergies: 11:34 haloperidol lactate; ph 11:34 hydroxyzine HCl; ph 11:34 Hydroxyzine Pamoate; ph 11:34 Ibuprofen; ph 11:34 Lyrica; ph 11:34 meloxicam; ph 11:34 nalbuphine HCl; ph 11:34 Naproxen; ph 11:34 NSAIDS (Non-Steroidal Anti-Inflammatory Drug); ph 11:34 Nubain; ph 11:34 Risperdal; ph 11:34 Vistaril; ph - PMHx: 11:34 ADD/ADHD; Back pain; Anxiety; Arthritis; bleeding ulcers; Chronic pain; GERD; Irritable ph bowel syndrome; Osteoporosis; PE; restless leg syndrome; Tachycardia; ULCER; - PSHx: 11:34 Appendectomy; hysterectomy; left clavicle repair; ph - Immunization history:: Adult Immunizations unknown. - Infectious Disease History:: Denies. - Social history:: Smoking status: unknown. Screenin:38 [facility] ED Fall Risk Assessment (Adult) History of falling in the last 3 months, ph including since admission. [facility] ED Fall Risk Assessment (Adult) History of falling in the last 3 months, including since admission No falls in past 3 months (0 pts) Confusion or Disorientation No (0 pts) Intoxicated or Sedated Yes (3 pts) Impaired Gait No (0 pts) Mobility Assist Device Used No (0 pt) Altered Elimination No (0 pt) Score/Fall Risk Level 0 - 2 = Low Risk Oriented to surroundings, Maintained a safe environment, Hourly rounding (assess needs \T\ fall precautionary measures) done. Abuse screen: Denies threats or abuse. Denies injuries from another. Nutritional screening: On. Tuberculosis screening: No symptoms or risk factors identified. Assessment: 11:25 Reassessment: Pt converted from SVT to NSR after adenosine IVP. ph 11:39 Reassessment: SEE TRIAGE ASSESSMENT. ph Vital Signs: 10:50 BP 98 / 80; Pulse 148; Resp 24; Temp 97; Pulse Ox 99% on R/A; Weight 58.97 kg; Height 5 ph ft. 3 in. ; 11:38 BP 114 / 71; Pulse 77; Resp 18; Pulse Ox 98% on R/A; ph 13:05 BP 117 / 52; Pulse 76; Resp 18; Temp 97.9; Pulse Ox 99% on R/A; ph 10:50 Body Mass Index 23.03 (58.97 kg, 160.02 cm) ph Vitals: 11:38 Cardiac Rhythm Assessment Sinus rhythm. ph ED Course: 10:53 EKG done, by ED staff, reviewed by Diane Calzada MD. ph 10:57 Patient arrived in ED. [id number] 11:00 Missed attempt(s): 22 gauge in right antecubital area. Bleeding controlled, band aid ph applied, catheter tip intact. 11:03 Missed attempt(s): 22 gauge in left wrist. Bleeding controlled, band aid applied, ph catheter tip intact. 11:04 Diane Calzada MD is Attending Physician. gb1 11:06 Missed attempt(s): 22 gauge in right forearm. Bleeding controlled, band aid applied, ll1 catheter tip intact. 11:10 Arm band placed on Patient placed in an exam room, on a stretcher. ll1 11:13 Initial lab(s) drawn, by me, sent to lab. Inserted saline lock: 22 gauge in left ph forearm, using aseptic technique. Blood collected. Flushed with 10 mL NS. 11:25 EKG done, by ED staff, reviewed by Diane Calzada MD. ph 11:29 Jonathan Cazares, RN is Primary Nurse. bp 11:30 Sharda Vázquez, RN is Primary Nurse. ph 11:33 Triage completed. ph 11:37 Basic Metabolic Panel Sent. ph 11:37 CBC with Diff Sent. ph 11:37 Troponin HS Sent. ph 11:40 Patient has correct armband on for positive identification. Bed in low position. Call ph light in reach. Side rails up X2. Client placed on continuous cardiac and pulse oximetry monitoring. NIBP monitoring applied. school lunch monitor on. Door closed. Noise minimized. Warm blanket given. 11:54 XRAY Chest (1 view) In Process Unspecified. EDMS 13:05 No provider procedures requiring assistance completed. ph 13:17 IV discontinued, intact, bleeding controlled, No redness/swelling at site. Pressure ph dressing applied. Administered Medications: 11:20 Drug: Adenocard IVP 6 mg IVP once Route: IVP; Site: left forearm; ph 11:38 Follow up: Response: No adverse reaction; Cardiac rhythm changed ph Medication: 11:40 VIS not applicable for this client. ph Outcome: 12:59 Discharge ordered by . gb1 13:17 Discharged to home ambulatory, with family, ph 13:17 Condition: good 13:17 Discharge instructions given to patient, Instructed on discharge instructions, the need for admit, Demonstrated understanding of instructions, follow-up care, 13:17 Patient left the ED. ph Signatures: Dispatcher [employer] EDWA Sharda Vázquez RN RN ph Jonathan Cazares RN RN bp Lewis, Lynsay, RN RN [facility] Diane Calzada MD MD gb Concepcion, Laurel [email or web address]
[2024-02-27 13:43] VITALS: BP 117/52; TEMP 97.9; O2SAT 99
--- NOTE | 2024-02-28 17:00 | EKG ---
Test Date: 2024-02-27 Test Time: 10:47:07 Title I Director: PH MEASUREMENT RESULTS: Intervals: Rate: 150 [place]: QRSD: 78 QT: 292 QTc: 461 [place]: P: [place]: QRS: 62 T: 36 INTERPRETIVE STATEMENTS: Supraventricular tachycardia Junctional ST depression, probably normal Borderline ECG Compared to ECG 10/07/2023 06:29:35 ST (T wave) deviation now present Sinus rhythm no longer present Electronically Signed On 02-28-24 16:55:22 CDT by Eddie Teran
--- NOTE | 2024-02-28 17:00 | EKG ---
Test Date: 2024-02-27 Test Time: 11:23:10 Global Clinical Leader: PH MEASUREMENT RESULTS: Intervals: Rate: 83 AL: 144 QRSD: 76 QT: 340 QTc: 399 [place]: P: 51 AL: 144 QRS: 40 T: 44 INTERPRETIVE STATEMENTS: Normal sinus rhythm Normal ECG Compared to ECG 02/27/2024 10:47:07 Supraventricular tachycardia no longer present ST (T wave) deviation no longer present Electronically Signed On 02-28-24 16:55:20 CDT by Eddie Teran
== END 2024-02-27 13:17 | disposition home or self-care (01) ==
LOC: ER 10:50
DX: I47.10 Supraventricular tachycardia, unspecified (principal); R53.1 Weakness
CPT/HCPCS: 93005 ×2; 85025; 80048; 36415; 84484; 71045; J0153; J7030

== ENCOUNTER 2024-06-07 11:24 | Emergency (ER) | payer OTHER ==
--- OUTSIDE RECORDS SUMMARY | 2024-06-07 11:32 | XMS REPORT | Continuity of Care Document ---
Author Name Unknown Address [address] [facility] [address] [facility] [place] [address] [facility] thconnect Address [address] [place] [address] Care Team Providers Care Eight Section Blower Name Role Phone Lani Berman Primary Care Physician No, PCP Attending Clinician Unavailable Nirmal Hancock Attending Clinician Unavailable NIVIA BESS Attending Clinician Unavailable JODY ALBRECHT Attending Clinician Unavailable JODY ALBRECHT Attending Clinician Katie lynnetteilable Nirmal Hancock Attending Clinician Doctor Unassigned, [place] Attending Clinician U patricia Steele MD, Betito Arita Attending Clinician [phone] LUPE CAMPOS Attending Clinician Unavailab esha Mayer RN, Dino Mcconnell Attending Clinician Unavail able TIFFANI DARBY Attending Clinician Unavailable TIFFANI DARBY Attending Clinician Unavailable Sharif Castañeda CRNA Attending Clinician [phone] Geovanna TEE, Alexandru Garcia Attending Clinician [phone] Kristan Monroe CRNA Attending Clinician [phone] Nivia Bess MD Attending Clinician [phone] Call, Formerly [facility], [facility]–1983 Phone Attending Clinician Unavail able Only, Adc Test Attending Clinician Unavailable JOE MORALES Attending Clinician Unavailabl e ROGELIO Attending Clinician Unavailable SHERWIN NASH Attending Clinician Unavail able SHERWIN NASH Attending Clinician Unavail able NIVIA BESS Admitting Clinician Unavailable TIFFANI DARBY Admitting Clinician Unavailable Nivia Bess MD Admitting Clinician [phone] ROGELIO Admitting Clinician Unavailable Payers Payer Name Policy Type Policy Number Effective Date Expirati on Date Source [facility] COMMUNITY PLAN STAR [id number] 2012 00:00:00 2022 00:00:00 [facility] DUAL COMP HMO D SNP [id number] 2020 00:00:00 [place] [id number] 2020 00:00:00 [facility] [place] STAR PLUS [id number] 2013 00:00:00 [facility] WELLMED [id number] 2020 00:00:00 2024 00:00:00 [facility] Dual Complete Choice (Regional PPO D-SNP) 53 [id number] 2019 00:00:00 [facility] [id number] 2012 00:00:00 [facility] [id number] 2012 00:00:00 [facility] [id number] 2012 00:00:00 [facility] [place]ARE [place]: [employer] [id number] 2006 00:00:00 [facility] - COMMUNITY PLAN - DUAL COMPLETE - SNP PLAN (MEDICARE REPLACEMENT HMO) [id number] [facility] (MEDICAID HMO) [id number] 2018 00:00:00 Problems Condition Name Condition Details Condition Category Status Onset Date Resolution Date Last Treatment Date Treating Clinician Comments Source GI bleed GI bleed Disease Active 06-14 00:00: 00 [facility] Peptic ulcer disease Peptic ulcer disease Disease Active 6-15 00:00: 00 Overview: Formattin g of this note might be different from the original. Added automatic ally from request for surgery [id number] [facility] Multiple gastric ulcers Multiple gastric ulcers Disease Active 07-15 00:00: 00 Overview: Formattin g of this note might be different from the original. Added automatic ally from request for surgery [id number] [facility] Hiatal hernia Hiatal hernia Disease Active 2019-06 00:00: 00 [facility] Post-op pain Post-op pain Disease Active 2015-06 00:00: 00 [facility] Chronic neck pain Chronic neck pain Disease Active 06-23 00:00: 00 [facility] Anxiety disorder Anxiety disorder Disease Active 06-23 00:00: 00 [facility] [id number] DDD (degenerat ceferino disc disease), cervical Problem [facility] [id number] Attention deficit hyperactiv ity disorder (ADHD), combined type Problem [facility] [id number] Panic disorder [episodic paroxysmal anxiety] Problem [facility] [id number] GERD without esophagiti s Problem [facility] [id number] Atheroscle rosis of abdominal aorta Problem [facility] [id number] +5th digit eff 03/13/20*CK D (chronic kidney disease) stage 3, GFR 30-59 ml/min Problem [facility] [id number] Generalize d anxiety disorder Problem [facility] [id number] PTSD (post-trau matic stress disorder) Problem [facility] [id number] Bilateral tinnitus Problem [facility] [id number] Current moderate episode of major depressive disorder without prior episode Problem [facility] [id number] Osteoporos is, unspecifie d osteoporos is type, unspecifie d pathologic al fracture presence Problem [facility] [id number] Irritable bowel syndrome with both constipati on and diarrhea Problem [facility] [id number] Milk-alkal i syndrome Problem [facility] [id number] Allergic rhinitis, unspecifie d seasonalit y, unspecifie d trigger Problem [facility] [id number] Mixed hyperlipid emia Problem [facility] [id number] Stage 3a chronic kidney disease Problem [facility] 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 Problem [facility] [id number] Osteoarthr itis of multiple joints, unspecifie d osteoarthr itis type Problem [facility] [id number] History of uterine cancer Problem [facility] [id number] Chronic pain syndrome Problem [facility] Chronic vascular insufficie ncy of intestine Superior mesenteric artery atheroscle rosis Problem [facility] [id number] Elevated liver enzymes Problem [facility] [id number] Urinary incontinen ce, unspecifie d type Problem [facility] Anemia of chronic renal failure Anemia associated with chronic renal failure Problem [facility] 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 Problem [facility] Thrombocyt osis Thrombocyt osis Problem [facility] [id number] Essential thrombocyt osis Problem [facility] Chronic fatigue syndrome Chronic fatigue Problem [facility] Iron deficiency anemia Other iron deficiency anemia Problem [facility] [id number] Primary osteoarthr itis of left knee Problem [facility] [id number] Primary osteoarthr itis of right knee Problem [facility] Anemia in chronic kidney disease Anemia in chronic kidney disease Problem [facility] Hypercalce shahnaz Hypercalce shahnaz Problem [facility] [id number] Shoulder arthritis Problem [facility] Anemia due to blood loss Anemia due to blood loss Problem [facility] 9617035 SVT (supravent ricular tachycardi a) Problem [facility] Contractur e of right ankle Contractur e of right ankle Problem [facility] Contractur e of left ankle Contractur e of left ankle Problem [facility] Supraventr icular dysrhythmi a Supraventr icular dysrhythmi a Disease Active [facility] Chronic low back pain Chronic low back pain Disease Active [facility] Allergies, Adverse Reactions, Alerts Allergy Name Allergy Type Status Severity Reaction(s) Onset Date Inactive Date Treating Clinician Comments Source naproxen Propensi ty to adverse reaction to drug Active 2023-06 0-09 00:00: 00 Sergio Hayes Mobic Propensi ty to adverse reaction to drug Active 8-27 00:00: 00 Sergio Hayes NSAIDS (Non-Stepan roidal Anti-Inf lammator y Drug) Propensi ty to adverse reaction to drug Active 4-17 00:00: 00 Sergio Hayes Pregabal in Allergy to substanc e Active Swelling 0 4-16 00:00: 00 [facility] Risperid one Allergy to substanc e Active Swelling 0 4-16 00:00: 00 [facility] Haloperi dol Allergy to substanc e Active Swelling 0 4-16 00:00: 00 [facility] Meloxica m Allergy to substanc e Active 0 4-16 00:00: 00 Other Reaction( s): seizures [facility] Nalbuphi ne Allergy to substanc e Active Swelling 4-16 00:00: 00 [facility] Haldol - Injectio n Propensi ty to adverse reaction to drug Active 3-15 00:00: 00 Sergio Hayes Lyrica Propensi ty to adverse reaction to drug Inactiv e 0 5-30 00:00: 00 Sergio Hayes Haloperi dol Lactate Propensi ty to adverse reaction s Active Anaphylaxis 2- 00:00: 00 [facility] Etodolac Propensi ty to adverse reaction s Active Anaphylaxis 2- 00:00: 00 [facility] HALOPERI DOL LACTATE DRUG INGREDI Active Anaphylaxis 2- 00:00: 00 [facility] ETODOLAC DRUG INGREDI Active Anaphylaxis 2- 00:00: 00 [facility] Pregabal in Propensi ty to adverse reaction s Active Hallucinatio ns 2014-06 00:00: 00 [facility] PREGABAL IN DRUG INGREDI Active Hallucinates 2014-06 00:00: 00 [facility] Meloxica m Propensi ty to adverse reaction s Active Other - See comments 2014-06 00:00: 00 Seizures [facility] Nsaids (Non-Stepan roidal Anti-Inf lammator y Drug) Propensi ty to adverse reaction s Active Anaphylaxis 2014-06 00:00: 00 [facility] Nalbuphi ne Hcl Propensi ty to adverse reaction s Active Anaphylaxis 2014-06 00:00: 00 [facility] Vistaril Im (Hcl Salt) Propensi ty to adverse reaction s Active Extra pyramidal effects 2014-06 00:00: 00 [facility] Nsaids (Non-Stepan roidal Anti-Inf lammator y Drug) Propensi ty to adverse reaction s Active Anaphylaxis 2014-06 00:00: 00 [facility] MELOXICA M DRUG INGREDI Active Other-Cmnt 2014-06 00:00: 00 [facility] NSAIDS (NON-STEPAN ROIDAL ANTI-INF LAMMATOR Y DRUG) Drug Class Active Anaphylaxis 2014-06 00:00: 00 [facility] NALBUPHI NE HCL DRUG INGREDI Active Anaphylaxis 2014-06 00:00: 00 [facility] VISTARIL IM (HCL SALT) DRUG Active EP Effects 2014-06 00:00: 00 [facility] Nsaids Propensi ty to adverse reaction s Active Anaphylaxis 2014-06 00:00: 00 [facility] [id number] Drug allergy Active Unknown [facility] Non-ster oidal anti-inf lammator y agent (FN) Non-ster oidal anti-inf lammator y agent (FN) Active Unknown [facility] [id number] Drug allergy Active throat closes [facility] hydroxyz ine hydroxyz ine Active seizure [facility] 61187 Drug allergy Active throat closes [facility] pregabal in pregabal in Active throat closes [facility] etodolac etodolac Active throat closes [facility] ibuprofe n ibuprofe n Active throat closes [facility] meloxica m meloxica m Active seizure [facility] Family History Family Member Diagnosis Comments Start Date Stop Date Sourc e Natural [facility] Hy[facility] Social History Social Habit Start Date Stop Date Quantity Comments Source History SDOH Social Connections Get Together [facility] History SDOH Social Connections [facility] History SDOH Social Connections Membership [facility] History SDOH Social Connections Meetings [facility] Gender identity [facility] Sexual orientation [facility] Sex Assigned [facility] History of Tobacco Use [facility] Alcoholic beverage intake 2023-09-27 00:00:00 2023-09-27 00:00:00 Lifetime non-drinker (finding) [facility] History of Social function 2023-09-27 00:00:00 2023-09-27 00:00:00 [facility] Exposure to SARS-CoV-2 (event) 2022-11-01 00:00:00 2022-11-11 12:54:00 Not sure [facility] Alcohol intake 2022-11-11 00:00:00 2022-11-11 00:00:00 Lifetime non-drinker (finding) [facility] Tobacco use and exposure 2022-08-12 00:00:00 2022-08-12 00:00:00 Smokeless tobacco non-user [facility] Tobacco Comment 2022-06-15 00:00:00 2022-06-15 00:00:00 stopped 02/22/2013 [facility] History SDOH Alcohol Frequency 2022-06-14 00:00:00 2022-06-14 00:00:00 1 [facility] History SDOH Alcohol Std Drinks 2022-06-14 00:00:00 2022-06-14 00:00:00 0 [facility] History SDOH Alcohol Binge 2022-06-14 00:00:00 2022-06-14 00:00:00 1 [facility] History SDOH Social Connections Phone 2022-06-14 00:00:00 2022-06-14 00:00:00 3 [facility] History SDOH Social Connections Living 2022-06-14 00:00:00 2022-06-14 00:00:00 5 [facility] History SDOH Physical Activity DPW 2022-06-14 00:00:00 2022-06-14 00:00:00 0 [facility] History SDOH Physical Activity MPS 2022-06-14 00:00:00 2022-06-14 00:00:00 0 [facility] History SDOH Financial 2022-06-14 00:00:00 2022-06-14 00:00:00 5 [facility] History SDOH Food Worry 2022-06-14 00:00:00 2022-06-14 00:00:00 1 [facility] History SDOH Food Scarcity 2022-06-14 00:00:00 2022-06-14 00:00:00 1 [facility] History SDOH Transport Med 2022-06-14 00:00:00 2022-06-14 00:00:00 2 [facility] History SDOH Transport Non-Med 2022-06-14 00:00:00 2022-06-14 00:00:00 2 [facility] Smoking Status Start Date Stop Date Source Never Smoker [facility] Ex-smoker 2022-06-15 00:00:00 2022-06-15 [facility] Ordered Medication Name Filled Medication Name Start Date Stop Date Current Medication? Ordering Clinician Indication Dosage Frequency Signature (SIG) Comments Components Source albuterol sulfate HFA 90 mcg/actuati on aerosol inhaler 9-04 00:00: 00 Yes mcg/act uation Sergio Hayes meloxicam 15 mg tablet 8-27 00:00: 00 Yes 1mg Sergio Hayes cyclobenzap rine 10 mg tablet 8-27 00:00: 00 Yes 1mg Sergio Hayes predniSONE 10 MG predniSONE 10 MG 7-19 00:00: 00 No predniSONE 10 MG albuterol sulfate HFA 90 mcg/actuati on aerosol inhaler 7-14 00:00: 00 Yes mcg/act uation Sergio Hayes DICYCLOMINE HYDROCHLORI DE 20 MG TABS - 00:00: 00 Yes Sergio Hayes gabapentin 100 mg capsule -19 00:00: 00 Yes 1mg Sergio Hayes gabapentin 100 mg capsule -17 00:00: 00 Yes 1mg Sergio Hayes TAKE 1 TABLET BY MOUTH TWICE DAILY - 00:00: 00 Yes Sergio Hayes METHYLPHENI DATE HYDROCHLORI DE ER 15 MG CP24 2-22 00:00: 00 Yes Sergio Hayes FLUOXETINE HYDROCHLORI DE 40 MG 2-21 00:00: 00 Yes Sergio Hayes OLANZAPINE 5MG TABLETS 2-20 00:00: 00 Yes Sergio Hayes METHYLPREDN ISOLONE DOSE PACK 4 MG TBPK 2-20 00:00: 00 Yes Sergio Hayes methylPREDN ISolone (Medrol) 4 MG tablet -20 00:00: 00 - 00:00 :00 No [id number] 4mg Take 1 tablet (4 mg total) by mouth 1 (one) time for 1 dose. Take as instructed by packaging [facility] TAKE 1 CAPSULE EVERY 8 HOURS. 2-13 00:00: 00 02-14 00:00 :00 No 500 Sergio Hayes FAMOTIDINE 40 MG TABS 2-05 00:00: 00 Yes Sergio Hayes TAKE 1 TABLET BY MOUTH TWICE DAILY WITH A MEAL 07-15 00:00: 00 Yes Sergio Hayes TAKE 1 TABLET BY MOUTH TWICE DAILY WITH MEALS 07-05 00:00: 00 Yes Sergio Hayes DEXLANSOPRA ZOLE 60 MG CPDR - 00:00: 00 Yes Sergio Hayes ONDANSETRON HYDROCHLORI DE 4 MG TABS 2022-06- 00:00: 00 Yes Sergio Hayes HYDROCODONE BITARTRATE/ ACETAMINOPH E N 5-325 MG TABS 2022-06 00:00: 00 Yes Sergio Hayes TAKE 1 TABLET EVERY MORNING NEEDED. 2022-06 00:00: 00 02-14 00:00 :00 No 10 Sergio Hayes DOXYCYCLINE [...] MEALS 2022-06 00:00: 00 Yes Sergio Hayes DEXMETHYLPH ENIDATE 15MG ER CAPSULES 2022-06 00:00: 00 Yes Sergio Hayes FAMOTIDINE 40 MG TABS 2022-06 00:00: 00 Yes Sergio Hayes IMIQUIMOD 5% CREAM SINGLE USE PKTS - 00:00: 00 Yes Sergio Hayes DEXMETHYLPH ENIDATE HYDROCHLORI DE ER 15 MG CP24 - 00:00: 00 Yes Sergio Hayes 1 TAB PO PRN MUSCLE PAIN HS 9-19 00:00: 00 02-14 00:00 :00 No 500 Sergio Hayes TAKE [...] RINSE MOUTH AFTER USE. 01-31 00:00: 00 02-14 00:00 :00 No [id number] Sergio Hayes TAKE 1 TABLET EVERY MORNING NEEDED. 01-31 00:00: 00 02-14 00:00 :00 No 10 Sergio Hayes INHALE 1-2 PUFFS EVERY 4-6 HOURS NEEDED AND DIRECTED. 01-31 00:00: 00 02-14 00:00 :00 No [id number] Sergio Hayes TAKE 1 TABLET BY MOUTH TWICE DAILY NEEDED 01-25 00:00: 00 Yes Sergio Hayes FAMOTIDINE 40 MG TABS 01-14 00:00: 00 Yes Sergio Hayes DEXMETHYLPH ENIDATE HYDROCHLORI DE ER 15 MG CP24 7-20 00:00: 00 Yes Sergio Hayes 1 TABLET PO BID 7- 00:00: 00 02-14 00:00 :00 No 500 Sergio Hayes INHALE 2 PUFFS BY MOUTH TWICE DAILY 12-07 00:00: 00 Yes Sergio Hayes BREZTRI AEROSPHERE 160-9-4.8 MCG/ACT AERO 12-06 00:00: 00 Yes Sergio Hayes 1 TABLET PO BID 6- 00:00: 00 02-14 00:00 :00 No 500 Sergio Hayes DEXMETHYLPH ENIDATE HYDROCHLORI DE ER 15 MG CP24 -22 00:00: 00 Yes Sergio Hayes Kenalog (Triamcinol one) Kenalog (Triamcinol one) 0 6-20 00:00: 00 No 40mg [facility] Kenalog (Triamcinol one) Kenalog (Triamcinol one) 0 6-20 00:00: 00 No 40mg [facility] Kenalog (Triamcinol one) Kenalog (Triamcinol one) 0 6-20 00:00: 00 No 40mg [facility] Kenalog (Triamcinol one) Kenalog (Triamcinol one) 0 6-20 00:00: 00 No 40mg [facility] Kenalog (Triamcinol one) Kenalog (Triamcinol one) 0 6-20 00:00: 00 No 40mg [facility] Kenalog (Triamcinol one) Kenalog (Triamcinol one) 0 6-20 00:00: 00 No 40mg [facility] TAKE 1 TABLET BY MOUTH DAILY 0 6-12 00:00: 00 Yes Sergio Hayes DEXLANSOPRA ZOLE 60 MG CPDR 0 6-01 00:00: 00 Yes Sergio Hayes DEXMETHYLPH ENIDATE 15MG ER CAPSULES 2022-0 5-23 00:00: 00 Yes Sergio Hayes OLANZAPINE 5 MG TABS 0 5-23 00:00: 00 Yes Sergio Hayes ALPRAZOLAM 0.5 MG TABS 0 5-23 00:00: 00 Yes Sergio Hayes FLUOXETINE HYDROCHLORI DE 40 MG 2022-0 5-23 00:00: 00 Yes Sergio Hayes DICYCLOMINE HYDROCHLORI DE 20 MG TABS 0 5-15 00:00: 00 Yes Sergio Hayes NITROFURANT OIN MONOHYDRATE 100 MG 2022-0 5-04 00:00: 00 Yes Sergio Hayes TAKE 1 TABLET BY MOUTH DAILY 2022-0 5-02 00:00: 00 Yes Sergio Hayes TAKE 1 TABLET BY MOUTH EVERY 4-6 HOURS NEEDED FOR PAIN - 00:00: 00 Yes Sergio Hayes TAKE 1 TABLET BY MOUTH EVERY 12 HOURS X 7 DAYS 4-27 00:00: 00 Yes Sergio Hayes DEXMETHYLPH ENIDATE HYDROCHLORI DE ER 15 MG CP24 4-24 00:00: 00 Yes Sergio Hayes FAMOTIDINE 40 MG TABS 3-30 00:00: 00 Yes Sergio Hayes SUCRALFATE 1 GM TABS 3-27 00:00: 00 Yes Serigo Hayes metoprolol tartrate (Lopressor) 25 MG tablet 3- 13:32: 19 Yes 50mg Take 50 mg by mouth. [facility] dexlansopra zole (Dexilant) [address] capsule 2- 00:00: 00 Yes [facility] dexmethylph enidate XR (Focalin XR) 15 MG 24 hr capsule 2-24 00:00: 00 Yes [facility] ALPRAZOLAM 0.5MG TABLETS 2- 00:00: 00 Yes Sergio Hayes DEXMETHYLPH ENIDATE [...] Until Discontinu ed, Routine [facility] metoprolol tartrate (LOPRESSOR) 25 mg tablet 2023-0 1-04 15:23: 23 Yes 50mg Take 50 mg by mouth in the morning and 50 mg in the evening. [facility] dicyclomine 20 mg tablet 06-16 15:23: 23 Yes 20mg Take 20 mg by mouth in the morning and 20 mg in the evening. [facility] FLUoxetine 40 mg capsule 06-16 15:23: 23 Yes 40mg Take 40 mg by mouth in the morning and 40 mg in the evening. [facility] OLANZapine 2.5 mg tablet 06-16 15:23: 23 Yes 1mg Take 1 mg by mouth in the morning and 1 mg in the evening. [facility] ALPRAZolam (XANAX) 1 mg tablet 06-16 15:23: 23 Yes 1mg Take 1 mg by mouth in the morning and 1 mg in the evening. [facility] pantoprazol e (PROTONIX) 40 mg EC tablet 06-16 11:30: 43 06-16 00:00 :00 No 40mg Take 40 mg by mouth in the morning and 40 mg in the evening. [facility] metoprolol tartrate (LOPRESSOR) 25 mg tablet 06-16 11:30: 39 Yes 50mg Take 50 mg by mouth in the morning and 50 mg in the evening. [facility] dicyclomine 20 mg tablet 06-16 11:30: 39 Yes 20mg Take 20 mg by mouth in the morning and 20 mg in the evening. [facility] FLUoxetine 40 mg capsule 06-16 11:30: 39 Yes 40mg Take 40 mg by mouth in the morning and 40 mg in the evening. [facility] OLANZapine 2.5 mg tablet 06-16 11:30: 39 Yes 1mg Take 1 mg by mouth in the morning and 1 mg in the evening. [facility] ALPRAZolam (XANAX) 1 mg tablet 06-16 11:30: 39 Yes 1mg Take 1 mg by mouth in the morning and 1 mg in the evening. [facility] pantoprazol e (ProtoNix) 40 MG EC tablet 06-16 00:00: 00 Yes 40mg Q.5D Take 40 mg by mouth 2 (two) times a day, in the morning and at bedtime. [facility] TAKE 1 TABLET BY MOUTH IN THE MORNING AND IN THE EVENING 06-16 00:00: 00 Yes Sergio Hayes dexmethylph enidate 15 mg 24 hr capsule 06-16 00:00: 00 Yes 15mg Take 1 capsule by mouth in the morning. [facility] lactated ringers IV infusion 500 mL 06-15 17:15: 00 06-15 17:45 :48 No 500mL at 100 mL/hr, 500 mL, Intravenou s, ONCE, 1 dose, On Tue06/15/22 at 1115, Routine [facility] dicyclomine (BENTYL) tablet 20 mg 06-15 15:00: 00 Yes 20mg 20 mg, Oral, BID, First dose on Tue06/15/22 at 0900, Until Discontinu ed, Routine [facility] pantoprazol e (PROTONIX) injection 40 mg 06-15 02:00: 00 Yes 40mg 40 mg, Slow IV Push, Q12H, First dose on Tue06/14/22 at 2000, Until Discontinu ed [facility] alum-mag hydroxide-s imeth (MAALOX PLUS / MAG-AL PLUS) 200-200-20 mg/5 mL suspension 30 mL 06-14 21:45: 09 Yes 30mL 30 mL, Oral, Q6HPRN, Starting on Tue06/14/22 at 1545, Until Discontinu ed, Routine, Indigestio n [facility] NaCl 0.9% (NS) injection 10 mL 06-14 21:43: 50 Yes 10mL 10 mL, Slow IV Push, PRN, Starting on Tue06/14/22 at 1543, Until Discontinu ed, Routine, line maintenanc e [facility] lidocaine 1% (PF) (XYLOCAINE) injection 5 mL 06-14 21:43: 49 Yes 5mL 5 mL, Subcutaneo us, PRN, Starting on Tue06/14/22 at 1543, Until Discontinu ed, Routine, Local anesthesia [facility] lactated ringers IV infusion 500 mL 06-14 18:45: 00 06-14 17:57 :02 No 500mL at 999 mL/hr, 500 mL, Intravenou s, ONCE, 1 dose, On Tue06/14/22 at 1245, Routine [facility] metoprolol (LOPRESSOR) injection 5 mg 06-14 18:30: 00 06-14 17:36 :00 No 5mg 5 mg, Intravenou s, ONCE, 1 dose, On Tue06/14/22 at 1230, Routine [facility] metoprolol (LOPRESSOR) injection 5 mg 06-14 18:00: 00 06-14 17:26 :00 No 5mg 5 mg, Intravenou s, ONCE, 1 dose, On Tue06/14/22 at 1200, Routine [facility] OLANZapine (ZyPREXA) tablet 1.25 mg 06-14 14:00: 00 Yes 1.25mg 1.25 mg, Oral, BID, First dose on Tue06/14/22 at 0800, Until Discontinu ed, Routine [facility] metoprolol tartrate (LOPRESSOR) tablet 50 mg 06-14 14:00: 00 Yes 50mg 50 mg, Oral, BID, First dose on Tue06/14/22 at 0800, Until Discontinu ed, Routine [facility] ALPRAZolam (XANAX) tablet 1 mg 06-14 14:00: 00 Yes 1mg 1 mg, Oral, BID, First dose on Tue06/14/22 at 0800, Until Discontinu ed, Routine [facility] iron sucrose (VENOFER) 200 mg in NaCl 0.9% (NS) 100 mL infusion 06-14 09:30: 00 06-14 14:12 :00 No 200mg 200 mg, IV Infusion, ONCE, Administer over 2.5 Hours, On Tue06/14/22 at 0330, For 1 dose [facility] KCL (KLOR-CON M20) tablet 20 mEq 06-14 09:00: 00 06-14 08:45 :00 No 20meq 20 mEq, Oral, ONCE, 1 dose, On Tue06/14/22 at 0300, Routine [facility] magnesium sulfate in water 2 gram/50 mL (4 %) infusion 2 g 06-14 09:00: 00 06-14 09:52 :00 No 2g 2 g, IV Piggyback, Administer over 60 Minutes, ONCE, 1 dose, On Tue06/14/22 at 0300, Routine [facility] NaCl 0.9% (NS) bolus infusion 2,000 mL 06-14 07:30: 00 06-14 08:43 :30 No 2000mL at 999 mL/hr, 2,000 mL, IV Piggyback, ONCE, 1 dose, On Tue06/14/22 at 0130, STAT [facility] guaiFENesin 100 mg/5 mL solution 200 mg 06-14 07:23: 38 Yes 200mg 200 mg, Oral, Q4HPRN, Starting on Tue06/14/22 at 0123, Until Discontinu ed, Routine, Cough [facility] pantoprazol e (PROTONIX) injection 40 mg 06-14 06:15: 00 06-14 06:38 :00 No 40mg 40 mg, Slow IV Push, Q12H, First dose on Tue06/14/22 at 0015, Until Discontinu ed [facility] acetaminoph en (TYLENOL) tablet 650 mg 06-14 06:14: 56 Yes 650mg 650 mg, Oral, Q6HPRN, Starting on Tue06/14/22 at 0014, Until Discontinu ed, Routine, Pain (scale 1-3) [facility] metoprolol tartrate (LOPRESSOR) 25 mg tablet 06-14 00:44: 38 Yes 50mg Take 50 mg by mouth in the morning and 50 mg in the evening. [facility] dicyclomine 20 mg tablet 06-14 00:44: 38 Yes 20mg Take 20 mg by mouth in the morning and 20 mg in the evening. [facility] FLUoxetine 40 mg capsule 06-14 00:44: 38 Yes 40mg Take 40 mg by mouth in the morning and 40 mg in the evening. [facility] OLANZapine 2.5 mg tablet 06-14 00:44: 38 Yes 1mg Take 1 mg by mouth in the morning and 1 mg in the evening. [facility] pantoprazol e (PROTONIX) 40 mg EC tablet 06-14 00:44: 38 Yes 40mg Take 40 mg by mouth in the morning and 40 mg in the evening. [facility] ALPRAZolam (XANAX) 1 mg tablet 06-14 00:44: 38 Yes 1mg Take 1 mg by mouth in the morning and 1 mg in the evening. [facility] clonazePAM (KLONOPIN) 1 mg tablet 06-14 00:44: 38 06-14 00:00 :00 No 1mg Take 1 mg by mouth as needed. [facility] TAKE 1 TABLET BY MOUTH EVERY 8 HOURS NEEDED FOR NAUSEA 2021-06 00:00: 00 Yes Sergio Hayes AZITHROMYCI N 250 MG TABS 2021-06 00:00: 00 Yes Sergio Hayes CEPHALEXIN 500 MG 2021-06 00:00: 00 Yes Sergio Melvin Freddy Lidocaine Lidocaine 2021-06 00:00: 00 No [facility] Kenalog (Triamcinol one) Kenalog (Triamcinol one) 2021-06 00:00: 00 No 40[facility] Lidocaine Lidocaine 2021-06 00:00: 00 No 10mg [facility] Kenalog (Triamcinol one) Kenalog (Triamcinol one) 2021-06 00:00: 00 No 40mg [facility] Lidocaine Lidocaine 2021-06 00:00: 00 No 10mg [facility] Kenalog (Triamcinol one) Kenalog (Triamcinol one) 2021-06 00:00: 00 No 40mg [facility] Lidocaine Lidocaine 2021-06 00:00: 00 No 10mg [facility] Kenalog (Triamcinol one) Kenalog (Triamcinol one) 2021-06 00:00: 00 No 40mg [facility] Lidocaine Lidocaine 2021-06 00:00: 00 No 10mg [facility] Kenalog (Triamcinol one) Kenalog (Triamcinol one) 2021-06 00:00: 00 No 40mg [facility] Lidocaine Lidocaine 2021-06 00:00: 00 No 10mg [facility] Kenalog (Triamcinol one) Kenalog (Triamcinol one) 2021-06 00:00: 00 No 40mg [facility] Lidocaine Lidocaine 2021-06 00:00: 00 No 10mg [facility] Kenalog (Triamcinol one) Kenalog (Triamcinol one) 2021-06 00:00: 00 No 40mg [facility] Lidocaine Lidocaine 2021-06 00:00: 00 No 10mg [facility] Kenalog (Triamcinol one) Kenalog (Triamcinol one) 2021-06 00:00: 00 No 40mg [facility] Lidocaine Lidocaine 2021-06 00:00: 00 No 10mg [facility] Kenalog (Triamcinol one) Kenalog (Triamcinol one) 2021-06 00:00: 00 No 40mg [facility] Lidocaine Lidocaine 2021-06 00:00: 00 No 10mg [facility] Kenalog (Triamcinol one) Kenalog (Triamcinol one) 2021-06 00:00: 00 No 40mg [facility] Lidocaine Lidocaine 2021-06 00:00: 00 No 10mg [facility] Kenalog (Triamcinol one) Kenalog (Triamcinol one) 2021-06 00:00: 00 No 40mg [facility] TAKE ONE CAPSULE BY MOUTH 1/2 BEFORE BREAKFAST OR 1ST MEAL 2021-06 00:00: 00 Yes Sergio Hayes Kenalog (Triamcinol one) Kenalog (Triamcinol one) 2021-06 00:00: 00 No 40mg [facility] Kenalog (Triamcinol one) Kenalog (Triamcinol one) 2021-06 00:00: 00 No 40mg [facility] Kenalog (Triamcinol one) Kenalog (Triamcinol one) 2021-06 00:00: 00 No 40mg [facility] Kenalog (Triamcinol one) Kenalog (Triamcinol one) 2021-06 00:00: 00 No 40mg [facility] Kenalog (Triamcinol one) Kenalog (Triamcinol one) 2021-06 00:00: 00 No 40mg [facility] Kenalog (Triamcinol one) Kenalog (Triamcinol one) 2021-06 00:00: 00 No 40mg [facility] Kenalog (Triamcinol one) Kenalog (Triamcinol one) 2021-06 00:00: 00 No 40mg [facility] Kenalog (Triamcinol one) Kenalog (Triamcinol one) 2021-06 00:00: 00 No 40[facility] Kenalog (Triamcinol one) Kenalog (Triamcinol one) 2021-06 00:00: 00 No 40mg [facility] Kenalog (Triamcinol one) Kenalog (Triamcinol one) 2021-06 00:00: 00 No 40mg [facility] Kenalog (Triamcinol one) Kenalog (Triamcinol one) 2021-06 00:00: 00 No 40mg [facility] Kenalog (Triamcinol one) Kenalog (Triamcinol one) 2021-06 00:00: 00 No 40mg [facility] Kenalog (Triamcinol one) Kenalog (Triamcinol one) 2021-06 00:00: 00 No 40mg [facility] DEXMETHYLPH ENIDATE 5MG TABLETS 2021-06 00:00: 00 Yes Sergio Hayes DEXMETHYLPH ENIDATE HYDROCHLORI DE ER 10 MG CP24 2021-06 00:00: 00 Yes Sergio Hayes ALPRAZOLAM 0.5MG TABLETS 2021-06 00:00: 00 Yes Sergio Hayes Kenalog (Triamcinol one) Kenalog (Triamcinol one) 2021-06 00:00: 00 No 40mg [facility] Kenalog (Triamcinol one) Kenalog (Triamcinol one) 2021-06 00:00: 00 No 40mg [facility] Kenalog (Triamcinol one) Kenalog (Triamcinol one) 2021-06 00:00: 00 No 40mg [facility] Kenalog (Triamcinol one) Kenalog (Triamcinol one) 2021-06 00:00: 00 No 40mg [facility] Kenalog (Triamcinol one) Kenalog (Triamcinol one) 2021-06 00:00: 00 No 40mg [facility] Kenalog (Triamcinol one) Kenalog (Triamcinol one) 2021-06 00:00: 00 No 40mg [facility] Kenalog (Triamcinol one) Kenalog (Triamcinol one) 2021-06 00:00: 00 No 40mg [facility] Kenalog (Triamcinol one) Kenalog (Triamcinol one) 2021-06 00:00: 00 No 40mg [facility] Kenalog (Triamcinol one) Kenalog (Triamcinol one) 2021-06 00:00: 00 No 40mg [facility] Kenalog (Triamcinol one) Kenalog (Triamcinol one) 2021-06 00:00: 00 No 40mg [facility] Kenalog (Triamcinol one) Kenalog (Triamcinol one) 2021-06 00:00: 00 No 40mg [facility] Kenalog (Triamcinol one) Kenalog (Triamcinol one) 2021-06 00:00: 00 No 40mg [facility] Kenalog (Triamcinol one) Kenalog (Triamcinol one) 2021-06 00:00: 00 No 40mg [facility] Kenalog (Triamcinol one) Kenalog (Triamcinol one) 2021-06 00:00: 00 No 40mg [facility] Kenalog (Triamcinol one) Kenalog (Triamcinol one) 2021-06 00:00: 00 No 40mg [facility] DICYCLOMINE HYDROCHLORI DE 20 MG TABS 2021-06 0-19 00:00: 00 Yes Sergio Hayes METOPROLOL TARTRATE 50 MG TABS 2021-06 0-18 00:00: 00 Yes Sergio Hayes AMPHETAMINE /DEXTROAMPH ETAMINE 15 MG TABS 2021-06 0-17 00:00: 00 Yes Sergio Hayes Kenalog (Triamcinol one) Kenalog (Triamcinol one) 2021-06 0-12 00:00: 00 No 40mg [facility] Kenalog (Triamcinol one) Kenalog (Triamcinol one) 2021-06 0-12 00:00: 00 No 40mg [facility] Kenalog (Triamcinol one) Kenalog (Triamcinol one) 2021-06 0-12 00:00: 00 No 40mg [facility] Kenalog (Triamcinol one) Kenalog (Triamcinol one) 2021-06 0-12 00:00: 00 No 40mg [facility] Kenalog (Triamcinol one) Kenalog (Triamcinol one) 2021-06 0-12 00:00: 00 No 40mg [facility] Kenalog (Triamcinol one) Kenalog (Triamcinol one) 2021-06 0-12 00:00: 00 No 40mg [facility] Kenalog (Triamcinol one) Kenalog (Triamcinol one) 2021-06 0-12 00:00: 00 No 40mg [facility] Kenalog (Triamcinol one) Kenalog (Triamcinol one) 2021-06 0-12 00:00: 00 No 40mg [facility] Kenalog (Triamcinol one) Kenalog (Triamcinol one) 2021-06 0-12 00:00: 00 No 40mg [facility] Kenalog (Triamcinol one) Kenalog (Triamcinol one) 2021-06 0-12 00:00: 00 No 40mg [facility] Kenalog (Triamcinol one) Kenalog (Triamcinol one) 2021-06 0-12 00:00: 00 No 40mg [facility] Kenalog (Triamcinol one) Kenalog (Triamcinol one) 2021-06 0-12 00:00: 00 No 40mg [facility] Kenalog (Triamcinol one) Kenalog (Triamcinol one) 2021-06 0-12 00:00: 00 No 40mg [facility] Kenalog (Triamcinol one) Kenalog (Triamcinol one) 2021-06 0-12 00:00: 00 No 40mg [facility] Kenalog (Triamcinol one) Kenalog (Triamcinol one) 2021-06 0-12 00:00: 00 No 40mg [facility] Kenalog (Triamcinol one) Kenalog (Triamcinol one) 2021-06 0-12 00:00: 00 No 40mg [facility] Kenalog (Triamcinol one) Kenalog (Triamcinol one) 2021-06 0-12 00:00: 00 No 40mg [facility] TAKE 1 TABLET BY MOUTH EVERY DAY 2021-06 0-12 00:00: 00 Yes Sergio Hayes TAKE ONE CAPSULE BY MOUTH 1/2 BEFORE BREAKFAST OR 1ST MEAL 2021-0 9-29 00:00: 00 Yes Sergio Hayes D-AMPHETAMI NE SALT COMBO 15MG TABS 0 9-22 00:00: 00 Yes Sergio Hayes OLANZAPINE [...] Yes Sergio Hayes OLANZAPINE 5MG TABLETS 2021-0 7-26 00:00: 00 Yes Sergio Hayes DEXLANSOPRA ZOLE 60 MG CPDR 2021-0 7-25 00:00: 00 Yes Sergio Hayes TAKE 1 CAPSULE BY MOUTH EVERY DAY 0 12-31 00:00: 00 Yes Sergio Hayes Bupivicaine Derby Bupivicaine [place] 0 10-06 00:00: 00 No 2.5mg [facility] Kenalog (Triamcinol one) Kenalog (Triamcinol one) 0 10-06 00:00: 00 No 40mg [facility] Bupivicaine [place] Bupivicaine [place] 0 10-06 00:00: 00 No 2.5mg [facility] Kenalog (Triamcinol one) Kenalog (Triamcinol one) 0 10-06 00:00: 00 No 40mg [facility] Bupivicaine [place] Bupivicaine [place] 0 10-06 00:00: 00 No 2.5mg [facility] Kenalog (Triamcinol one) Kenalog (Triamcinol one) 0 10-06 00:00: 00 No 40mg [facility] Bupivicaine [place] Bupivicaine [place] 0 10-06 00:00: 00 No 2.5mg [facility] Kenalog (Triamcinol one) Kenalog (Triamcinol one) 0 10-06 00:00: 00 No 40mg [facility] Bupivicaine [place] Bupivicaine [place] 0 10-06 00:00: 00 No 2.5mg [facility] Kenalog (Triamcinol one) Kenalog (Triamcinol one) 0 10-06 00:00: 00 No 40mg [facility] Bupivicaine [place] Bupivicaine [place] 0 10-06 00:00: 00 No 2.5mg [facility] Kenalog (Triamcinol one) Kenalog (Triamcinol one) 0 10-06 00:00: 00 No 40mg [facility] Bupivicaine [place] Bupivicaine [place] 0 10-06 00:00: 00 No 2.5mg [facility] Kenalog (Triamcinol one) Kenalog (Triamcinol one) 0 10-06 00:00: 00 No 40mg [facility] Bupivicaine [place] Bupivicaine [place] 0 10-06 00:00: 00 No 2.5mg [facility] Kenalog (Triamcinol one) Kenalog (Triamcinol one) 0 10-06 00:00: 00 No 40mg [facility] Bupivicaine [place] Bupivicaine [place] 0 10-06 00:00: 00 No 2.5mg [facility] Kenalog (Triamcinol one) Kenalog (Triamcinol one) 0 10-06 00:00: 00 No 40mg [facility] Bupivicaine [place] Bupivicaine [place] 0 10-06 00:00: 00 No 2.5mg [facility] Kenalog (Triamcinol one) Kenalog (Triamcinol one) 0 10-06 00:00: 00 No 40mg [facility] Bupivicaine [place] Bupivicaine [place] 0 10-06 00:00: 00 No 2.5mg [facility] Kenalog (Triamcinol one) Kenalog (Triamcinol one) 0 10-06 00:00: 00 No 40mg [facility] Bupivicaine [place] Bupivicaine [place] 2021-0 10-06 00:00: 00 No 2.5mg [facility] Kenalog (Triamcinol one) Kenalog (Triamcinol one) 0 10-06 00:00: 00 No 40mg [facility] Bupivicaine [place] Bupivicaine [place] 2021-0 10-06 00:00: 00 No 2.5mg [facility] Kenalog (Triamcinol one) Kenalog (Triamcinol one) 0 10-06 00:00: 00 No 40mg [facility] Bupivicaine [place] Bupivicaine [place] 0 10-06 00:00: 00 No 2.5mg [facility] Kenalog (Triamcinol one) Kenalog (Triamcinol one) 0 10-06 00:00: 00 No 40mg [facility] Bupivicaine [place] Bupivicaine [place] 0 10-06 00:00: 00 No 2.5mg [facility] Kenalog (Triamcinol one) Kenalog (Triamcinol one) 0 10-06 00:00: 00 No 40mg [facility] Bupivicaine [place] Bupivicaine [place] 0 10-06 00:00: 00 No 2.5mg [facility] Kenalog (Triamcinol one) Kenalog (Triamcinol one) 0 10-06 00:00: 00 No 40mg [facility] Bupivicaine [place] Bupivicaine [place] 0 10-06 00:00: 00 No 2.5mg [facility] Kenalog (Triamcinol one) Kenalog (Triamcinol one) 0 10-06 00:00: 00 No 40mg [facility] Bupivicaine [place] Bupivicaine [place] 0 10-06 00:00: 00 No 2.5mg [facility] Kenalog (Triamcinol one) Kenalog (Triamcinol one) 0 10-06 00:00: 00 No 40mg [facility] Bupivicaine [place] Bupivicaine [place] 0 10-06 00:00: 00 No 2.5mg [facility] Kenalog (Triamcinol one) Kenalog (Triamcinol one) 0 10-06 00:00: 00 No 40mg [facility] Bupivicaine [place] Bupivicaine [place] 0 10-06 00:00: 00 No 2.5mg [facility] Kenalog (Triamcinol one) Kenalog (Triamcinol one) 0 10-06 00:00: 00 No 40mg [facility] Bupivicaine [place] Bupivicaine [place] 0 10-06 00:00: 00 No 2.5mg [facility] Kenalog (Triamcinol one) Kenalog (Triamcinol one) 0 10-06 00:00: 00 No 40mg [facility] Bupivicaine [place] Bupivicaine [place] 0 10-06 00:00: 00 No 2.5mg [facility] Kenalog (Triamcinol one) Kenalog (Triamcinol one) 0 10-06 00:00: 00 No 40mg [facility] Bupivicaine [place] Bupivicaine [place] 0 10-06 00:00: 00 No 2.5mg [facility] Kenalog (Triamcinol one) Kenalog (Triamcinol one) 0 10-06 00:00: 00 No 40mg [facility] Bupivicaine [place] Bupivicaine [place] 0 10-06 00:00: 00 No 2.5mg [facility] Kenalog (Triamcinol one) Kenalog (Triamcinol one) 0 10-06 00:00: 00 No 40mg [facility] Dose Unknown 0 3-15 00:00: 00 Yes Sergio Hayes Dose Unknown 0 3-15 00:00: 00 Yes Sergio Hayes Dose Unknown 0 3-15 00:00: 00 Yes Sergio Hayes Dose Unknown 0 3-15 00:00: 00 Yes Sergio Hayes Dose Unknown 0 3-15 00:00: 00 Yes Sergio Hayes methylPREDN [...] 00 No 16mg [facility] Synvisc Synvisc 1 2-16 00:00: 00 No 16mg [facility] Synvisc Synvisc 2020-1 2-16 00:00: 00 No 16mg [facility] Synvisc Synvisc 2020-1 2-16 00:00: 00 No 16mg [facility] Synvisc Synvisc 2020-1 2-16 00:00: 00 No 16mg [facility] Synvisc Synvisc 1 2-16 00:00: 00 No 16mg [facility] Synvisc Synvisc 2020-1 2-16 00:00: 00 No 16mg [facility] Synvisc Synvisc 2021-1 2-16 00:00: 00 No [facility] Synvisc Synvisc 1-1 2-16 00:00: 00 No [facility] Synvisc Synvisc 2020-1 2-16 00:00: 00 No [facility] Synvisc Synvisc 1-1 2-16 00:00: 00 No [facility] Synvisc Synvisc 2020-1 2-16 00:00: 00 No [facility] Synvisc Synvisc 1-1 2-16 00:00: 00 No [facility] Synvisc Synvisc 2020-1 2-16 00:00: 00 No [facility] Synvisc Synvisc 1-1 2-16 00:00: 00 No [facility] Synvisc Synvisc 2020-1 2-16 00:00: 00 No [facility] Synvisc Synvisc 1-1 2-16 00:00: 00 No [facility] Synvisc Synvisc 2020-1 2-16 00:00: 00 No [facility] Synvisc Synvisc 1-1 2-16 00:00: 00 No [facility] Synvisc Synvisc 2020-1 2-16 00:00: 00 No [facility] Synvisc Synvisc 2020-1 2-16 00:00: 00 No [facility] Synvisc Synvisc 2020-1 2-16 00:00: 00 No [facility] Synvisc Synvisc 1-1 2-16 00:00: 00 No [facility] Synvisc Synvisc 2020-1 2-16 00:00: 00 No [facility] Synvisc Synvisc 1 2-16 00:00: 00 No [facility] Synvisc Synvisc 2020-06 2- 00:00: 00 No [facility] Synvisc Synvisc 2020-06 2 00:00: 00 No [facility] Synvisc Synvisc 2020-06 2- 00:00: 00 No [facility] Synvisc Synvisc 2020-06 2 00:00: 00 No [facility] Synvisc Synvisc 2020-06 2 00:00: 00 No [facility] Synvisc Synvisc 2020-06 2 00:00: 00 No [facility] Synvisc Synvisc 2020-06 2- 00:00: 00 No [facility] Synvisc Synvisc 2020-06 2 00:00: 00 No [facility] Synvisc Synvisc 2020-06 2 00:00: 00 No [facility] Synvisc Synvisc 2020-06 2 00:00: 00 No [facility] Synvisc Synvisc 2020-06 2 00:00: 00 No [facility] Synvisc Synvisc 2020-06 2 00:00: 00 No [facility] [facility] Syn[facility] Synvisc 2020-06 2 00:00: 00 No [facility] Syn[facility] Synvisc 2020-06 2 00:00: 00 No [facility] Synvisc 2020-06 2 00:00: 00 No [facility] Synvisc 2020-06 2 00:00: 00 No [facility] Synvisc 2020-06 2 00:00: 00 No [facility] Synvisc 2020-06 2 00:00: 00 No [facility] Synvisc 2020-06 2 00:00: 00 No [facility] Synvisc 2020-06 2 00:00: 00 No [facility] Synvisc 2020-06 00:00: 00 No [facility] Synvisc 2020-06 00:00: 00 No [facility] Synvisc 2020-06 00:00: 00 No [facility] Synvisc 2020-06 2 00:00: 00 No [facility] Syn[facility] Synvisc 2020-06 00:00: 00 No [facility] Syn[facility] Synvisc 2020-06 2 00:00: 00 No [facility] Synvisc 2020-06 2 00:00: 00 No [facility] Synvisc 2020- 2- 00:00: 00 No [facility] Syn[facility] Synvisc 2020- 2- 00:00: 00 No [facility] Synvisc 2020- 2- 00:00: 00 No [facility] Syn[facility] Synvisc 2020- 2- 00:00: 00 No [facility] Synvisc Synvisc 2020- 2- 00:00: 00 No [facility] Syn[facility] Synvisc 2020-06 2- 00:00: 00 No [facility] Syn[facility] Synvisc 2020-06 2- 00:00: 00 No [facility] Syn[facility]isc Synvisc 2020-06 2- 00:00: 00 No [facility] Syn[facility] Synvisc 2020-06 2- 00:00: 00 No [facility] Syn[facility] Synvisc 2020-06 2- 00:00: 00 No [facility] Synvisc Synvisc 2020-06 2- 00:00: 00 No [facility] Synvisc Synvisc 2020-06 2- 00:00: 00 No [facility] Synvisc Synvisc 2020-06 2- 00:00: 00 No [facility] Synvisc Synvisc 2020-06 2- 00:00: 00 No [facility] Synvisc Synvisc 2020- 2- 00:00: 00 No [facility] Synvisc Synvisc 2020-06 2- 00:00: 00 No [facility] Syn[facility] Synvisc 2020-06 2- 00:00: 00 No [facility] Synvisc Synvisc 2020- 2- 00:00: 00 No [facility] Synvisc Synvisc 2020-06 2- 00:00: 00 No [facility] Synvisc Synvisc 2020- 2- 00:00: 00 No [facility] Synvisc Synvisc 2020-06 2- 00:00: 00 No [facility] Synvisc Synvisc 2020- 2- 00:00: 00 No [facility] Syn[facility]isc Synvisc 2020-06 2- 00:00: 00 No 16[facility] Xarelto 20 MG Xarelto 20 MG 2020-06 [...] Take 1 mg by mouth as needed. [facility] metoprolol tartrate (LOPRESSOR) 25 mg tablet 11-25 13:28: 31 Yes 25mg Take 25 mg by mouth daily. [facility] dicyclomine 20 mg tablet 11-25 13:28: 31 Yes 20mg Take 20 mg by mouth daily. [facility] FLUoxetine (PROZAC) 40 mg capsule 11-25 13:28: 31 Yes 40mg Take 40 mg by mouth daily. [facility] OLANZapine 2.5 mg tablet 11-25 13:28: 31 Yes 2.5mg Take 2.5 mg by mouth 2 (two) times daily. [facility] lansoprazol e 30 mg capsule 11-25 12:19: 35 11-25 00:00 :00 No 30mg Take 30 mg by mouth daily. [facility] sucralfate 1 gram tablet 11-25 00:00: 00 01-25 04:59 :00 No [id number] 1g Take 1 tablet by mouth before meals and at bedtime for 60 days. [facility] olanzapine 5 mg disintegrat [...] 07-15 00:00: 00 07-30 05:59 :00 No [id number] 1g Take 1 tablet by mouth before meals and at bedtime for 14 days. [facility] desonide 0.05 % cream 06-30 00:00: 00 Yes APPLY TO THE AFFECTED AREA TWICE DAILY SPARINGLY AND RUB GENTLY [facility] Metoprolol Tartrate 50 MG Oral Tablet Metoprolol Tartrate 50 MG Oral Tablet 11-12 00:00: 00 No Metoprolol Tartrate 50 MG Oral Tablet Metoprolol Tartrate Metoprolol Tartrate Yes Nirmal Hancock 1 tablet with food [facility] Dicyclomine HCl Dicyclomine HCl Yes Nirmal Hancock TAKE 1 TABLET BY MOUTH TWICE DAILY NEEDED [facility] Premarin Premarin Yes Nirmal Hancock 1 tablet [facility] Hydrochloro thiazide Hydrochloro thiazide Yes Nirmal Hancock 1 tablet in the morning [facility] Adderall Adderall Yes Nirmal Hancock 1 tablet [facility] Lansoprazol e Lansoprazol e Yes Nirmal Hancock 1 capsule [facility] Clonazepam Clonazepam Yes Inrmal Hancock 1 tablet [facility] Duloxetine HCl Duloxetine HCl Yes Nirmal Hancock TK ONE C PO BID [facility] Adderall 30 MG Adderall 30 MG No [...] HIGH DOSE OVER 65 2022-05-20 14:18:00 Completed [facility] FLUZONE HIGH DOSE OVER 65 FLUZONE HIGH DOSE OVER 65 2022-05-20 14:18:00 Completed [facility] FLUZONE HIGH DOSE OVER 65 FLUZONE HIGH DOSE OVER 65 2022-05-20 14:18:00 Completed [facility] FLUZONE HIGH DOSE OVER 65 FLUZONE HIGH DOSE OVER 65 2022-05-20 14:18:00 Completed [facility] FLUZONE HIGH DOSE OVER 65 FLUZONE HIGH DOSE OVER 65 2022-05-20 14:18:00 Completed [facility] FLUZONE HIGH DOSE OVER 65 FLUZONE HIGH DOSE OVER 65 2022-05-20 14:18:00 Completed Common [facility] FLUZONE HIGH DOSE OVER 65 FLUZONE HIGH DOSE OVER 65 2022-05-20 14:18:00 Completed [facility] Afluria Afluria 2021-03-26 09:44:00 Completed [facility] Afluria Afluria 2021-03-26 09:44:00 Completed [facility] Afluria Afluria 2021-03-26 09:44:00 Completed [facility] Afluria Afluria 2021-03-26 09:44:00 Completed [facility] Afluria Afluria 2021-03-26 09:44:00 Completed [facility] Afluria Afluria 2021-03-26 09:44:00 Completed Common [facility] Afluria Afluria 2021-03-26 09:44:00 Completed Common [facility] Afluria Afluria 2021-03-26 09:44:00 Completed [facility] Afluria Afluria 2021-03-26 09:44:00 Completed [facility] Afluria Afluria 2021-03-26 09:44:00 Completed [facility] Afluria Afluria 2021-03-26 09:44:00 Completed [facility] Afluria Afluria 2021-03-26 09:44:00 Completed [facility] Afluria Afluria 2021-03-26 09:44:00 Completed [facility] Afluria Afluria 2021-03-26 09:44:00 [facility]pleted [facility] Afluria Afluria 2021-03-26 09:44:00 Completed [facility] 2021-03-26 09:44:00 [facility] 09:44:00 [facility] 2021-03-26 09:44:00 [facility] 2021-03-26 09[facility]44:00 [facility] 2021-03-26 09:44:00 [facility] 2021-03-26 09:44:[address] [facility] 2021-03-26 09:44:00 [facility] Moderna COVID-19 Vaccine 2020-08-23 00:00:00 Completed [facility] Pneumovax (PPSV23) Pneumovax (PPSV23) 2020-03-20 11:22:00 Completed [facility] Pneumovax (PPSV23) Pneumovax (PPSV23) 2020-03-20 11:22:00 Completed [facility] Pneumovax (PPSV23) Pneumovax (PPSV23) 2020-03-20 11:22:00 Completed [facility] Pneumovax (PPSV23) Pneumovax (PPSV23) 2020-03-20 11:22:00 Completed [facility] Pneumovax (PPSV23) Pneumovax (PPSV23) 2020-03-20 11:22:00 Completed [facility] Pneumovax (PPSV23) Pneumovax (PPSV23) 2020-03-20 11:22:00 Completed [facility] Pneumovax (PPSV23) Pneumovax (PPSV23) 2020-03-20 11:22:00 Completed [facility] Pneumovax (PPSV23) Pneumovax (PPSV23) 2020-03-20 11:22:00 Completed [facility] Pneumovax (PPSV23) Pneumovax (PPSV23) 2020-03-20 11:22:00 Completed [facility] Pneumovax (PPSV23) Pneumovax (PPSV23) 2020-03-20 11:22:00 Completed [facility] Pneumovax (PPSV23) Pneumovax (PPSV23) 2020-03-20 11:22:00 Completed [facility] Pneumovax (PPSV23) Pneumovax (PPSV23) 2020-03-20 11:22:00 Completed [facility] Pneumovax (PPSV23) Pneumovax (PPSV23) 2020-03-20 11:22:00 Completed [facility] Pneumovax (PPSV23) Pneumovax (PPSV23) 2020-03-20 11:22:00 Completed [facility] Pneumovax (PPSV23) Pneumovax (PPSV23) 2020-03-20 11:22:00 Completed [facility] Pneumovax (PPSV23) Pneumovax (PPSV23) 2020-03-20 11:22:00 Completed [facility] Pneumovax (PPSV23) Pneumovax (PPSV23) 2020-03-20 11:22:00 Completed [facility] Pneumovax (PPSV23) Pneumovax (PPSV23) 2020-03-20 11:22:00 Completed [facility] Pneumovax (PPSV23) Pneumovax (PPSV23) 2020-03-20 11:22:00 Completed [facility] Pneumovax (PPSV23) Pneumovax (PPSV23) 2020-03-20 11:22:00 Completed [facility] Pneumovax (PPSV23) Pneumovax (PPSV23) 2020-03-20 11:22:00 Completed [facility] Pneumovax (PPSV23) Pneumovax (PPSV23) 2020-03-20 11:22:00 Completed [facility] Afluria single dose Afluria single dose 11:21:00 Completed [facility] Afluria single dose Afluria single dose 11:21:00 Completed [facility] Afluria single dose Afluria single dose 11:21:00 Completed [facility] Afluria single dose Afluria single dose 11:21:00 Completed [facility] Afluria single dose Afluria single dose 11:21:00 Completed [facility] Afluria single dose Afluria single dose 11:21:00 Completed [facility] Afluria single dose Afluria single dose 11:21:00 Completed [facility] Afluria single dose Afluria single dose 11:21:00 Completed [facility] Afluria single dose Afluria single dose 11:21:00 Completed [facility] Afluria single dose Afluria single dose 11:21:00 Completed [facility] Afluria single dose Afluria single dose 11:21:00 Completed [facility] Afluria single dose Afluria single dose 11:21:00 Completed [facility] Afluria single dose Afluria single dose 11:21:00 Completed [facility] Afluria single dose Afluria single dose 11:21:00 Completed [facility] Afluria single dose Afluria single dose 11:21:00 Completed [facility] Afluria single dose Afluria single dose 11:21:00 Completed [facility] Afluria single dose Afluria single dose 11:21:00 Completed [facility] Afluria single dose Afluria single dose 11:21:00 Completed [facility] Afluria single dose Afluria single dose 11:21:00 Completed [facility] Afluria single dose Afluria single dose 11:21:00 Completed [facility] Afluria single dose Afluria single dose 11:21:00 Completed [facility] Afluria single dose Afluria single dose 11:21:00 Completed [facility] Afluria single dose Afluria single dose Unknown Completed [facility] Afluria Afluria Unknown Completed [facility] Pneumovax (PPSV23) Pneumovax (PPSV23) Unknown Completed [facility] FLUZONE HIGH DOSE OVER 65 FLUZONE HIGH DOSE OVER 65 Unknown Completed [facility] Afluria single dose Afluria single dose Unknown Completed [facility] Afluria Afluria Unknown Completed [facility] Pneumovax (PPSV23) Pneumovax (PPSV23) Unknown Completed [facility] FLUZONE HIGH DOSE OVER 65 FLUZONE HIGH DOSE OVER 65 Unknown Completed [facility] Afluria single dose Afluria single dose Unknown Completed [facility] Afluria Afluria Unknown Completed [facility] Pneumovax (PPSV23) Pneumovax (PPSV23) Unknown Completed [facility] FLUZONE HIGH DOSE OVER 65 FLUZONE HIGH DOSE OVER 65 Unknown Completed [facility] Afluria single dose Afluria single dose Unknown Completed [facility] Afluria Afluria Unknown Completed [facility] Pneumovax (PPSV23) Pneumovax (PPSV23) Unknown Completed [facility] FLUZONE HIGH DOSE OVER 65 FLUZONE HIGH DOSE OVER 65 Unknown Completed [facility] Afluria single dose Afluria single dose Unknown Completed [facility] Afluria Afluria Unknown Completed [facility] Pneumovax (PPSV23) Pneumovax (PPSV23) Unknown Completed [facility] FLUZONE HIGH DOSE OVER 65 FLUZONE HIGH DOSE OVER 65 Unknown Completed [facility] Afluria (IIV4) - 3 years and older - SDS - 0.5mL Afluria (IIV4) - 3 years and older - SDS - 0.5mL Unknown Completed [facility] Afluria Afluria Unknown Completed [facility] Pneumovax (PPSV23) Pneumovax (PPSV23) Unknown Completed [facility] FLUZONE HIGH DOSE OVER 65 FLUZONE HIGH DOSE OVER 65 Unknown Completed [facility] Vital Signs Vital Name Observation Time Observation Value Comments S ource Body height 2023-09-27 15:46:00 152.[facility] Body weight 2023-09-27 15:46:00 60.328 [facility] BMI 2023-09-27 15:46:00 25.97 kg/m2 [facility] height 2022-11-30 11:10:00 60 [in_i] Commo n [facility] weight 2022-11-30 11:10:00 140.4 [lb_av] Co mmon [facility] temperature 2022-11-30 11:10:00 97.2 [degF] Com mon [facility] bmi 2022-11-30 11:10:00 27.42 kg/m2 Comm on [facility] oximetry 2022-11-30 11:10:00 98 % Commo n [facility] respiratory rate 2022-11-30 11:10:00 18 /min [facility] blood pressure systolic 2022-11-30 11:10:00 115 mm[Hg] [facility] blood pressure diastolic 2022-11-30 11:10:00 68 mm[Hg] [facility] height 2022-11-30 11:30:00 60 [in_i] Commo n [facility] weight 2022-11-30 11:30:00 140.4 [lb_av] Co mmon [facility] temperature 2022-11-30 11:30:00 97.2 [degF] Com mon [facility] bmi 2022-11-30 11:30:00 27.42 kg/m2 Comm on [facility] oximetry 2022-11-30 11:30:00 98 % Commo n [facility] respiratory rate 2022-11-30 11:30:00 18 /min [facility] blood pressure systolic 2022-11-30 11:30:00 115 mm[Hg] [facility] blood pressure diastolic 2022-11-30 11:30:00 68 mm[Hg] [facility] Systolic blood pressure 2022-06-16 17:38:00 113 mm[Hg] [facility] Diastolic blood pressure 2022-06-16 17:38:00 62 mm[Hg] [facility] Heart rate 2022-06-16 17:38:00 70 /min [facility] Body temperature 2022-06-16 17:38:00 36.67 [facility] Respiratory rate 2022-06-16 17:38:00 16 /min [facility] Oxygen saturation in Arterial blood by Pulse oximetry 2022-06-16 17:38:00 95 /min [facility] Body height 2022-06-15 19:14:00 152.4 cm [facility] Body weight 2022-06-15 19:14:00 55.792 kg [facility] BMI 2022-06-15 19:14:00 24.02 kg/m2 [facility] Systolic blood pressure 2022-06-15 13:41:00 127 mm[Hg] [facility] Diastolic blood pressure 2022-06-15 13:41:00 62 mm[Hg] [facility] Heart rate 2022-06-15 13:41:00 71 /min [facility] Body temperature 2022-06-15 13:41:00 36.72 [facility] Respiratory rate 2022-06-15 13:41:00 18 /min [facility] Oxygen saturation in Arterial blood by Pulse oximetry 2022-06-15 13:41:00 93 /min [place] [facility] Body weight 2022-06-14 06:00:00 56 kg [facility] BMI 2022-06-14 06:00:00 24.02 kg/m2 [facility] height 2022-05-31 10:30:00 60 [in_i] Commo n [facility] weight 2022-05-31 10:30:00 143 [lb_av] Comm on [facility] temperature 2022-05-31 10:30:00 97.2 [degF] Com [facility] bmi 2022-05-31 10:30:00 27.92 kg/m2 Comm on [facility] blood pressure systolic 2022-05-31 10:30:00 134 mm[Hg] Common [facility] blood pressure diastolic 2022-05-31 10:30:00 62 mm[Hg] Common [facility] height 2022-05-20 13:50:00 60 [in_i] Commo n [facility] weight 2022-05-20 13:50:00 144.2 [lb_av] Co mmon [facility] temperature 2022-05-20 13:50:00 97.6 [degF] Com mon [facility] bmi 2022-05-20 13:50:00 28.16 kg/m2 Comm on [facility] oximetry 2022-05-20 13:50:00 97 % Commo n [facility] respiratory rate 2022-05-20 13:50:00 17 /min Common [facility] blood pressure systolic 2022-05-20 13:50:00 131 mm[Hg] [facility] blood pressure diastolic 2022-05-20 13:50:00 60 mm[Hg] Common [facility] height 2022-03-24 10:10:00 60 [in_i] Commo n [facility] weight 2022-03-24 10:10:00 141.8 [lb_av] Co mmon [facility] temperature 2022-03-24 10:10:00 97.3 [degF] Com mon [facility] bmi 2022-03-24 10:10:00 27.69 kg/m2 Comm on [facility] oximetry 2022-03-24 10:10:00 98 % Commo n [facility] respiratory rate 2022-03-24 10:10:00 18 /min [facility] blood pressure systolic 2022-03-24 10:10:00 132 mm[Hg] [facility] blood pressure diastolic 2022-03-24 10:10:00 72 mm[Hg] Common [facility] height 2022-01-05 13:30:00 60 [in_i] Commo n [facility] weight 2022-01-05 13:30:00 139 [lb_av] Comm on [facility] bmi 2022-01-05 13:30:00 27.14 kg/m2 Comm on [facility] blood pressure systolic 2022-01-05 13:30:00 112 mm[Hg] Common [facility] blood pressure diastolic 2022-01-05 13:30:00 78 mm[Hg] Common [facility] height 2021-12-02 09:50:00 60 [in_i] Commo n [facility] weight 2021-12-02 09:50:00 131.6 [lb_av] Co on [facility] temperature 2021-12-02 09:50:00 97.3 [degF] Com [facility] bmi 2021-12-02 09:50:00 25.7 kg/m2 Commo n [facility] oximetry 2021-12-02 09:50:00 99 % Commo n [facility] respiratory rate 2021-12-02 09:50:00 17 /min [facility] blood pressure systolic 2021-12-02 09:50:00 119 mm[Hg] [facility] blood pressure diastolic 2021-12-02 09:50:00 58 mm[Hg] [facility] height 2021-10-06 15:00:00 60 [in_i] Commo n [facility] weight 2021-10-06 15:00:00 132.4 [lb_av] Co mmon [facility] bmi 2021-10-06 15:00:00 25.85 kg/m2 Comm on [facility] blood pressure systolic 2021-10-06 15:00:00 104 mm[Hg] [facility] blood pressure diastolic 2021-10-06 15:00:00 58 mm[Hg] [facility] height 2021-09-07 14:30:00 60 [in_i] Commo n [facility] weight 2021-09-07 14:30:00 132 [lb_av] Comm on [facility] bmi 2021-09-07 14:30:00 25.78 kg/m2 Comm on [facility] blood pressure systolic 2021-09-07 14:30:00 134 mm[Hg] [facility] blood pressure diastolic 2021-09-07 14:30:00 84 mm[Hg] [facility] height 2021-07-30 14:30:00 60 [in_i] Commo n [facility] weight 2021-07-30 14:30:00 132 [lb_av] Comm on [facility] temperature 2021-07-30 14:30:00 98.0 [degF] Com mon [facility] bmi 2021-07-30 14:30:00 25.78 kg/m2 Comm on [facility] blood pressure systolic 2021-07-30 14:30:00 112 mm[Hg] Common [facility] blood pressure diastolic 2021-07-30 14:30:00 72 mm[Hg] [facility] height 2021-07-06 09:20:00 60 [in_i] Commo n [facility] weight 2021-07-06 09:20:00 131.4 [lb_av] Co [facility] temperature 2021-07-06 09:20:00 97.9 [degF] Com [facility] bmi 2021-07-06 09:20:00 25.66 kg/m2 Comm on [facility] oximetry 2021-07-06 09:20:00 99 % Commo n [facility] respiratory rate 2021-07-06 09:20:00 18 /min Common [facility] blood pressure systolic 2021-07-06 09:20:00 121 mm[Hg] [facility] blood pressure diastolic 2021-07-06 09:20:00 57 mm[Hg] [facility] height 2021-07-06 08:30:00 60 [in_i] Commo n [facility] weight 2021-07-06 08:30:00 131.4 [lb_av] Co mmon [facility] temperature 2021-07-06 08:30:00 97.9 [degF] Com [facility] bmi 2021-07-06 08:30:00 25.66 kg/m2 Comm on [facility] oximetry 2021-07-06 08:30:00 99 % Commo n [facility] blood pressure systolic 2021-07-06 08:30:00 121 mm[Hg] [facility] blood pressure diastolic 2021-07-06 08:30:00 57 mm[Hg] [facility] height 2021-05-28 14:45:00 60 [in_i] Commo n [facility] weight 2021-05-28 14:45:00 132 [lb_av] Comm on [facility] temperature 2021-05-28 14:45:00 97.8 [degF] Com [facility] bmi 2021-05-28 14:45:00 25.78 kg/m2 Comm on [facility] blood pressure systolic 2021-05-28 14:45:00 124 mm[Hg] [facility] blood pressure diastolic 2021-05-28 14:45:00 80 mm[Hg] [facility] height 2021-05-21 14:30:00 60 [in_i] Commo n [facility] weight 2021-05-21 14:30:00 132 [lb_av] Comm on [facility] temperature 2021-05-21 14:30:00 97.6 [degF] Com [facility] bmi 2021-05-21 14:30:00 25.78 kg/m2 Comm on [facility] blood pressure systolic 2021-05-21 14:30:00 112 mm[Hg] [facility] blood pressure diastolic 2021-05-21 14:30:00 74 mm[Hg] [facility] height 2021-05-14 14:30:00 60 [in_i] Commo n [facility] weight 2021-05-14 14:30:00 132 [lb_av] Comm on [facility] temperature 2021-05-14 14:30:00 98.0 [degF] Com [facility] bmi 2021-05-14 14:30:00 25.78 kg/m2 Comm on [facility] blood pressure systolic 2021-05-14 14:30:00 100 mm[Hg] [facility] blood pressure diastolic 2021-05-14 14:30:00 60 mm[Hg] [facility] height 2021-04-20 09:30:00 60 [in_i] Commo n [facility] weight 2021-04-20 09:30:00 132 [lb_av] Comm on [facility] bmi 2021-04-20 09:30:00 25.78 kg/m2 Comm on [facility] height 2021-04-07 09:30:00 60 [in_i] Commo n [facility] weight 2021-04-07 09:30:00 132.6 [lb_av] Co mmon [facility] temperature 2021-04-07 09:30:00 97.7 [degF] Com [facility] bmi 2021-04-07 09:30:00 25.89 kg/m2 Comm on [facility] oximetry 2021-04-07 09:30:00 97 % Commo n [facility] respiratory rate 2021-04-07 09:30:00 16 /min Common [facility] blood pressure systolic 2021-04-07 09:30:00 121 mm[Hg] Common [facility] blood pressure diastolic 2021-04-07 09:30:00 56 mm[Hg] [facility] height 2021-03-26 09:50:00 60 [in_i] Commo n [facility] weight 2021-03-26 09:50:00 131.4 [lb_av] Co mmon [facility] temperature 2021-03-26 09:50:00 97.5 [degF] Com [facility] bmi 2021-03-26 09:50:00 25.66 kg/m2 Comm on [facility] oximetry 2021-03-26 09:50:00 98 % Commo n [facility] respiratory rate 2021-03-26 09:50:00 17 /min [facility] blood pressure systolic 2021-03-26 09:50:00 113 mm[Hg] [facility] blood pressure diastolic 2021-03-26 09:50:00 56 mm[Hg] [facility] Body height 2020-11-19 18:36:00 152.4 cm [facility] Body weight 2020-11-19 18:36:00 56.9 kg [facility] BMI 2020-11-19 18:36:00 24.50 kg/m2 [facility] Body height 2020-07-17 14:33:00 152.4 cm [facility] Body weight 2020-07-17 14:33:00 56.881 kg [facility] BMI 2020-07-17 14:33:00 24.49 kg/m2 [facility] BP Systolic 2024-03-21 13:12:00 118 mm[Hg] Step hen F Freddy BP Diastolic 2024-03-21 13:12:00 74 mm[Hg] Stepan phen F Freddy Weight Measured 2024-03-21 13:12:00 128.00 pounds Sergio Melvin Hayes Height Measured 2024-03-21 13:12:00 59.00 inches Sergio Melvin Hayes Body Temperature 2024-03-21 13:12:00 97.90 degrees Sergio F Freddy Heart Rate 2024-03-21 13:12:00 81.00 /min Leticia en F Freddy Respiratory Rate 2024-03-21 13:12:00 18.00 /min Sergio F Freddy BP Systolic 2024-02-07 07:51:00 120 mm[Hg] Step hen F Freddy BP Diastolic 2024-02-07 07:51:00 74 mm[Hg] Stepan phen F Freddy Weight Measured 2024-02-07 07:51:00 134.00 pounds Sergio F Freddy Height Measured 2024-02-07 07:51:00 59.00 inches Sergio Melvin Hayes Body Temperature 2024-02-07 07:51:00 97.90 degrees Sergio [...] Weight Measured 2022-12-15 09:51:00 140.00 pounds Sergio Hayes Height Measured 2022-12-15 09:51:00 59.00 inches Sergio Hayes Body Temperature 2022-12-15 09:51:00 98.20 degrees Sergio Hayes Heart Rate 2022-12-15 09:51:00 90.00 /min Leticia en Melvin Hayes Respiratory Rate 2022-12-15 09:51:00 20.00 /min Sergio Hayes BP Systolic 2022-12-06 11:55:00 99 mm[Hg] Step hen Melvin Hayes BP Diastolic 2022-12-06 11:55:00 57 mm[Hg] Stepan phen Melvin Hayes Weight Measured 2022-12-06 11:55:00 138.00 pounds Sergio Hayes Height Measured 2022-12-06 11:55:00 59.00 inches Sergio Hayes Body Temperature 2022-12-06 11:55:00 98.10 degrees Sergio Charles Freddy Heart Rate 2022-12-06 11:55:00 85.00 /min Leticia en Melvin Freddy Respiratory Rate 2022-12-06 11:55:00 22.00 /min Sergio Charles Freddy Systolic blood pressure 2022-06-15 17:07:00 109 mm[Hg] [place] [facility] Diastolic blood pressure 2022-06-15 17:07:00 64 mm[Hg] [place] [facility] Heart rate 2022-06-15 17:07:00 69 /min [facility] temperature 2022-06-15 17:07:00 36.5 [place] [facility] Respiratory rate 2022-06-15 17:07:00 17 /min [facility] Oxygen saturation in Arterial blood by Pulse oximetry 2022-06-15 17:07:00 93 /min [facility] Body weight 2022-06-14 06:00:00 56 kg [facility] BMI 2022-06-14 06:00:00 24.11 kg/m2 [facility] Body height 2020-11-25 14:44:00 152.4 cm [facility] Procedures Procedure Date / Time Performed Performing Clinician Source REFERRAL- REQUEST/RESPONSE 2022-12-04 05:01:00 Doctor Unassigned, [place] [facility] EXTERNAL PROVIDER RECORDS 2022-06-23 06:01:00 Doctor Unassigned, [place] [facility] CBC WITHOUT DIFF 2022-06-16 11:54:00 Lavon Monge [facility] CBC WITHOUT DIFF 2022-06-16 11:54:00 Lavon Monge [facility] MAGNESIUM 2022-06-15 21:55:00 Lavon Monge [facility] BASIC METABOLIC PANEL (NA, K , CL, CO2, GLUCOSE, BUN, CREATININE, CA) 2022-06-15 21:55:00 Lavon Monge [facility] CBC WITH DIFF 2022-06-15 21:55:00 Lavon Monge [facility] MAGNESIUM 2022-06-15 21:55:00 Lavon Monge [facility] BASIC METABOLIC PANEL (NA, K , CL, CO2, GLUCOSE, BUN, CREATININE, CA) 2022-06-15 21:55:00 Lavon Monge [facility] CBC WITH DIFF 2022-06-15 21:55:00 Lavon Monge [facility] ESOPHAGOGASTRODUODENOSCOPY 2022-06-15 19:37:00 Alexandru Austin [facility] ESOPHAGOGASTRODUODENOSCOPY 2022-06-15 19:37:00 Alexandru Austin [facility] EGD (ENDO) 2022-06-15 18:33:01 Tiffani Darby [facility] EGD (ENDO) 2022-06-15 18:33:01 Tiffani Darby [facility] CBC WITHOUT DIFF 2022-06-14 22:38:00 Lavon Monge [facility] TROPONIN I 2022-06-14 22:38:00 Lavon Monge [facility] TROPONIN I 2022-06-14 22:38:00 Lavon Monge [facility] CBC WITHOUT DIFF 2022-06-14 22:38:00 Lavon Monge [facility] TROPONIN I 2022-06-14 22:38:00 [facility] 2022-06-14 22:38:00 Lavon Monge [facility] HB ECG ROUTINE & RHYTHM STRIP 2022-06-14 16:53:14 Kristan Monroe [facility] HB ECG ROUTINE & RHYTHM STRIP 2022-06-14 16:53:14 Kristan Monroe [facility] HB ECG ROUTINE & RHYTHM STRIP 2022-06-14 16:53:14 Kristan Monroe [facility] HB ECG ROUTINE & RHYTHM STRIP 2022-06-14 16:51:07 Loglisa [facility] HB ECG ROUTINE & RHYTHM STRIP 2022-06-14 16:51:07 [facility] HB ECG ROUTINE & RHYTHM STRIP 2022-06-14 16:51:07 [facility]isa [facility] URINALYSIS 2022-06-14 09:50:00 [facility] URINE CULTURE 2022-06-14 09:50:00 Loghin [facility] URINALYSIS 2022-06-14 09:50:00 Loghin [facility] URINE CULTURE 2022-06-14 09:50:00 Loghin [facility] URINALYSIS 2022-06-14 09:50:00 Loghin [facility] URINE CULTURE 2022-06-14 09:50:00 [facility]dinorahn [facility] XR CHEST 1 2022-06-14 09:37:00 Loghin [facility] XR CHEST 1 2022-06-14 09:37:00 Loghin [facility] XR CHEST 1 2022-06-14 09:37:00 Loglisa [facility] N-TERMINAL PRO-BNP 2022-06-14 07:13:00 Loglisa [facility] PROCALCITONIN 2022-06-14 07:13:00 Loglisa [facility] COVID-19 (ID NOW RAPID TESTING) 07:13:00 Loglisa [facility] LAB ONLY COVID INTERPRETATION 2022-06-14 07:13:00 Noni [facility] CBC WITH DIFF 2022-06-14 07:13:00 Noni [facility] COMP. METABOLIC PANEL (53963) 2022-06-14 07:13:00 Loglisa [facility] THYROID STIMULATING HORMONE 2022-06-14 07:13:00 Loghidawna [facility] FREE T4 2022-06-14 07:13:00 Loghidawna [facility] MAGNESIUM 2022-06-14 07:13:00 Loglisa [facility] PHOSPHORUS 2022-06-14 07:13:00 Loglisa [facility] GLYCOSYLATED HEMOGLOBIN (A1C) 2022-06-14 07:13:00 Loglisa [facility] LIPID PANEL (91470)(TOTAL CHOLESTEROL, TRIGLYCERIDES, HDL) 2022-06-14 07:13:00 Noni [facility] PROTHROMBIN TIME / INR 2022-06-14 07:13:00 Loglisa [facility] N-TERMINAL PRO-BNP 2022-06-14 07:13:00 Loglisa [facility] TROPONIN I 2022-06-14 07:13:00 Loglisa [facility] PROCALCITONIN 2022-06-14 07:13:00 Noni [facility] COVID-19 (ID NOW RAPID TESTING) 07:13:00 Loglisa [facility] GALV ONLY - INFLUENZA A B RSV PCR 06-14 07:13:00 Loglisa [facility] IRON PANEL 2022-06-14 07:13:00 Loglisa [facility] FERRITIN SERUM 2022-06-14 07:13:00 Loglisa [facility] VITAMIN B12, LEVEL 2022-06-14 07:13:00 Loglisa [facility] FOLATE 2022-06-14 07:13:00 [facility]TATION 2022-06-14 07:13:00 LogNate gonzalez [facility] PHOSPHORUS 2022-06-14 07:13:00 [facility] MAGNES[facility]UM 2022-06-14 07:13:00 Loglisa [facility] FERRITIN SERUM 2022-06-14 07:13:00 Loglisa [facility] VITAMIN B12, LEVEL 2022-06-14 07:13:00 Loghidawna [facility] FOLATE 2022-06-14 07:13:00 Loghidawna [facility] TROPONIN I 2022-06-14 07:13:00 Loglisa [facility] FREE T4 2022-06-14 07:13:00 Loghidawna [facility] THYROID STIMULATING HORMONE 2022-06-14 07:13:00 Noni [facility] COMP. METABOLIC PANEL (29407) 2022-06-14 07:13:00 Loglisa [facility] LIPID PANEL (05957)(TOTAL CHOLESTEROL, TRIGLYCERIDES, HDL) 2022-06-14 07:13:00 Noni [facility] IRON PANEL 2022-06-14 07:13:00 Loglisa [facility] CBC WITH DIFF 2022-06-14 07:13:00 Noni [facility] GLYCOSYLATED HEMOGLOBIN (A1C) 2022-06-14 07:13:00 Loglisa [facility] PROTHROMBIN TIME / INR 2022-06-14 07:13:00 Loglisa [facility] GALV ONLY - INFLUENZA A B RSV PCR 06-14 07:13:00 Loglisa [facility] N-TERMINAL PRO-BNP 2022-06-14 07:13:00 Loghidawna [facility] PROCALCITONIN 2022-06-14 07:13:00 Loglisa [facility] COVID-19 (ID NOW RAPID TESTING) 07:13:00 Loghin, [facility] LAB ONLY COVID INTERPRETATION 2022-06-14 07:13:00 [facility]OS[facility] 2022-06-14 07:13:00 Loghidawna [facility] MAGNESIUM 2022-06-14 07:13:00 Loghidawna [facility] FERRITIN SERUM 2022-06-14 07:13:00 Loghidawna [facility] VITAMIN B12, LEVEL 2022-06-14 07:13:00 Loghin [facility] FOLATE 2022-06-14 07:13:00 Loghin [facility] TROPONIN I 2022-06-14 07:13:00 Loghin [facility] FREE T4 2022-06-14 07:13:00 Loghin [facility] THYROID STIMULATING HORMONE 2022-06-14 07:13:00 Loghidawna [facility] COMP. METABOLIC PANEL (46723) 2022-06-14 07:13:00 Loghidawna [facility] LIPID PANEL (70475)(TOTAL CHOLESTEROL, TRIGLYCERIDES, HDL) 2022-06-14 07:13:00 Loglisa [facility] IRON PANEL 2022-06-14 07:13:00 Loglisa [facility] CBC WITH DIFF 2022-06-14 07:13:00 Loghidawna [facility] GLYCOSYLATED HEMOGLOBIN (A1C) 2022-06-14 07:13:00 Loghidawna [facility] PROTHROMBIN TIME / INR 2022-06-14 07:13:00 Loghidawna [facility] GALV ONLY - INFLUENZA A B RSV PCR 06-14 07:13:00 [facility] Encounters Start Date/Time End Date/Time Encounter Type Admission Type Attending Clinicians Care Facility Care Department Encounter ID Source 2024-02-09 14:48:01 Outpatient No, PCP [facility] [id number] [facility] 2023-12-23 12:56:00 Outpatient Nirmal Hancock [facility] [id number] [facility] 2022-12-21 14:09:06 Outpatient [facility] [id number] [facility] 2022-12-03 10:02:37 Outpatient [facility] [id number] [facility] 2022-12-01 09:03:31 Outpatient [facility] [id number] [facility] 2022-09-08 10:20:56 Outpatient [facility] [id number] [facility] 2022-08-30 10:41:01 Outpatient [facility] [id number] [facility] 2022-08-23 10:00:40 Outpatient [facility] [id number] [facility] 2022-08-18 16:34:00 [facility] [id number] [facility] 2022-08-13 12:11:39 Outpatient [facility] [id number] [facility] 2022-08-12 13:17:04 Outpatient [facility] [id number] [facility] 2022-07-21 13:35:27 Outpatient [facility] [id number] [facility] 2022-06-24 08:59:26 Outpatient [facility] [id number] [facility] 2022-06-03 16:40:39 Outpatient [facility] [id number] [facility] 2022-05-31 11:39:01 Outpatient [facility]ancock[facility] [id number] [facility] 2022-05-19 14:43:00 Outpatient [facility]ancock, [facility] [id number] [facility] 2022-04-23 11:17:01 Outpatient [facility] [id number] [facility] 2022-04-17 11:08:00 Outpatient [facility] [id number] [facility] 2022-01-06 13:28:00 Outpatient Hancock, Nirmal [facility] [id number] [facility] 2021-11-02 09:01:18 Outpatient Hancock, Nirmal [facility] [id number] [facility] 2021-09-21 13:05:01 Outpatient Hancock, Nirmal [facility] [id number] [facility] 2021-07-29 10:19:01 Outpatient Hancock, Nirmal [facility] ST[facility] [id number] [facility] 2021-07-08 14:39:04 Outpatient Hancock, Nirmal [facility] ST[facility] [id number] [facility] 2021-07-08 14:11:57 Outpatient Hancock, Nirmal [facility] [id number] [facility] 2021-07-08 14:09:54 Outpatient Hancock, Nirmal [facility] [id number] [facility] 2021-07-08 12:46:03 Outpatient Hancock, Nirmal [facility] [id number] [facility] 2021-07-08 12:36:17 Outpatient Hancock, Nirmal [facility] [id number] [facility] 2021-07-08 12:17:58 Outpatient Hancock, Nirmal [facility] [id number] [facility] 2021-07-08 11:28:21 Outpatient Hancock, Nirmal [facility] [id number] [facility] 2021-07-08 11:18:20 Outpatient Hancock, Nirmal [facility] [id number] [facility] 2021-07-08 11:13:47 Outpatient Hancock, Nirmal [facility] [id number] [facility] 2021-07-08 11:09:[address] [facility] [id number] [facility] 2021-07-08 11:08:[address] [facility] [id number] [facility] 2021-04-13 11:39:26 Outpatient R NIVIA BESS [facility] [id number] [facility] 2021-04-12 23:35:55 Outpatient R NIVIA BESS [facility] [id number] [facility] 2021-04-11 21:31:44 Outpatient NIVIA BANEGAS [facility] [id number] [facility] 2024-03-21 13:11:38 2024-03-21 13:11:[address] [facility] [id number] Sergio Hayes 2024-03-21 00:00:00 2024-03-21 00:00:[address] [facility] [id number] Sergio Hayes 2024-02-07 07:51:17 2024-02-07 07:51:[address] [facility] [id number] Sergio Hayes 2024-02-07 00:00:00 2024-02-07 00:00:[address] [facility] [id number] Sergio Hayes 2024-01-12 00:00:00 2024-01-12 00:00:00 (F/U) Follow Up Visit [facility] [id number] [facility] 2023-12-30 00:00:00 2023-12-30 00:00:00 (TEL) [facility] [id number] [facility] 2023-12-23 00:00:00 2023-12-23 00:00:00 Office Visit- Est Pt.- Level 3 [facility] [id number] [facility] 2023-11-29 10:15:00 2023-11-29 10:15:00 Outpatient JODY ALBRECHT [facility] [id number] [facility] 2023-09-28 08:52:37 2023-09-28 08:52:[address] [facility] [id number] Sergio Hayes 2023-09-28 00:00:00 2023-09-28 00:00:[address] [facility] [id number] Sergio Hayes 2023-09-27 10:45:00 2023-09-27 11:03:25 Office Visit Jody Albrecht [facility] [place] 2 1..840.114 [id number] [facility] 2023-08-11 00:00:00 2023-08-11 00:00:00 [facility]EL[facility] [id number] [facility] 2023-08-02 00:00:00 2023-08-02 14:30:00 Outpatient [facility] [id number] [facility] 2023-08-02 11:30:00 2023-08-02 14:29:53 Office Visit JODY ALBRECHT [facility] 2 1..840.114 [id number] [facility] 2023-07-26 11:18:45 2023-07-26 11:18:[address] [facility] [id number] Sergio Hayes 2023-06-28 11:00:00 2023-06-28 11:00:00 Outpatient JODY ALBRECHT [facility] [id number] [facility] 2023-05-31 13:45:00 2023-05-31 13:45:00 Office Visit Jody Albrecht [facility] [place] 2 ..840.114 [id number] [facility] 2023-05-31 13:45:00 2023-05-31 13:32:51 Outpatient [facility] [id number] [facility] 2023-05-18 06:04:00 2023-05-18 14:10:00 Outpatient JODY ALBRECHT [facility] [id number] [facility] 2023-05-18 08:45:00 2023-05-18 08:45:00 Outpatient JODY ALBRECHT [facility] [id number] [facility] 2023-03-16 13:16:32 2023-03-16 13:16:32 Outpatient SFA [facility] [id number] Sergio Charles Freddy 2023-03-01 13:36:49 2023-03-01 13:36:49 Outpatient SFA [facility] [id number] Sergio Hayes 2023-01-31 14:05:12 2023-01-31 14:05:12 Outpatient SFA [facility] [id number] Sergio Charles [place] 2022-12-24 00:00:00 2022-12-24 00:00:00 Letter (Out) Nirmal Hancock [facility] 1..840.114 350.1.13.10 [id number] [facility] 2022-12-20 11:12:06 2022-12-20 11:12:06 Outpatient SFA [facility] [id number] Sergio Charles Freddy 2022-12-15 09:50:22 2022-12-15 09:50:22 Outpatient SFA [facility] [id number] Sergio Charles [place] 2022-12-06 12:01:00 2022-12-06 12:01:00 Outpatient SFA [facility] [id number] Sergio Charles [place] 2022-12-04 00:00:00 2022-12-04 00:00:00 Orders Only Doctor Unassigned, [place] [facility] 1..840.114 350.1.13.10 [id number] [facility] 2022-11-30 00:00:00 2022-11-30 00:00:00 OFFICE VISIT ESTAB PT LEVEL 4 [facility] [id number] [facility] 2022-11-30 00:00:00 2022-11-30 00:00:00 SUB ANNUAL [facility] VIS[facility] [id number] [facility] 2022-11-30 00:00:00 2022-11-30 00:00:00 (TEL) [facility] [id number] [facility] 2022-11-30 00:00:00 2022-11-30 00:00:00 (TEL) [facility] [id number] [facility] 2022-11-11 13:00:00 2022-11-11 14:42:42 Office Visit Jody Albrecht [facility] [place] 2 [id number] [id number] [facility] 2022-09-15 00:00:00 2022-09-15 00:00:00 Telephone Betito Steele [facility] [id number] [facility] 2022-09-14 11:30:00 2022-09-14 11:30:00 Outpatient LUPE DHALIWAL [facility] [id number] [facility] 2022-08-12 00:00:00 2022-08-12 15:52:50 Outpatient [facility] [id number] [facility] 2022-08-12 13:15:00 2022-08-12 14:24:05 Office Visit Jody Albrecht [facility] 2 [id number] [id number] [facility] 2022-07-21 00:00:00 2022-07-21 00:00:00 (TEL) [facility] [id number] [facility] [facility] 2022-06-23 00:00:00 2022-06-23 00:00:00 Orders Only Doctor Unassigned, [place] [facility] 1.114 350.1.13.10 4.2.7.2.686 [id number] [facility] 2022-06-22 11:00:00 2022-06-22 11:00:00 Outpatient JODY ALBRECHT [facility] [id number] [facility] 2022-06-17 00:00:00 2022-06-17 00:00:00 Transition of Care Dino Mayer 1..114 350.1.13.10 4.2.7.2.686 [id number] [facility] 2022-06-13 23:46:00 2022-06-16 15:23:00 Inpatient U RUSTY DARBYTIFFANI [facility] [id number] [facility] 2022-06-13 23:46:00 2022-06-16 15:23:00 Hospital Encounter Tiffani Darby [facility] 1.114 350.1.13.10 4.2.7.2.686 [id number] [facility] 2022-06-15 12:52:00 2022-06-15 12:52:00 Anesthesia Event Sharif Castañeda 1.840.1 76395.1.1 3.104.2.7 .3.965711 .8 [id number] [facility] 2022-06-15 09:23:00 2022-06-15 09:59:00 Surgery Alexandru Austin [facility] 1..114 350.1.13.10 4.2.7.2.686 [id number] [facility] 2022-06-14 12:05:59 2022-06-14 12:05:59 Anesthesia Event Kristan Monroe 1.2.840.1 18277.1.1 3.104.2.7 .3.975293 .8 [id number] [facility] 2022-06-14 00:00:00 2022-06-14 00:00:00 Travel 1.2.840.1 22454.1.1 3.104.2.7 .3.130453 .8 1.2.840.114 350.1.13.10 4.2.7.3.698 [id number] [facility] 2022-06-02 00:00:00 2022-06-02 00:00:00 (TEL) STLMLC STLMLC [id number] [facility] 2022-06-01 00:00:00 2022-06-01 00:00:00 (TEL) STLMLC STLMLC [id number] [facility] 2022-05-31 00:00:00 2022-05-31 00:00:00 OFFICE VISIT EST PT LEVEL 3 STLMLC STLMLC [id number] [facility] 2022-05-25 00:00:00 2022-05-25 00:00:00 (TEL) STLMLC STLMLC [id number] [facility] 2022-05-20 00:00:00 2022-05-20 00:00:00 OFFICE VISIT ESTAB PT LEVEL 4 STLMLC STLMLC [id number] [facility] 2022-04-23 00:00:00 2022-04-23 00:00:00 (TEL) STLMLC STLMLC [id number] [facility] 2022-04-16 00:00:00 2022-04-16 00:00:00 (TEL) STLMLC STLMLC [id number] [facility] 2022-03-30 00:00:00 2022-03-30 00:00:00 (TEL) STLMLC STLMLC [id number] [facility] 2022-03-24 00:00:00 2022-03-24 00:00:00 (HOSP F/U) Hospital Follow Up STLMLC STLMLC [id number] [facility] 2022-03-14 00:00:00 2022-03-14 00:00:00 (TEL) STLMLC STLMLC [id number] [facility] 2022-03-10 00:00:00 2022-03-10 00:00:00 (TEL) STLMLC STLMLC [id number] [facility] 2022-03-09 00:00:00 2022-03-09 00:00:00 (TEL) STLMLC STLMLC [id number] [facility] 2022-02-03 00:00:00 2022-02-03 00:00:00 (TEL) STLMLC STLMLC [id number] [facility] 2022-01-08 00:00:00 2022-01-08 00:00:00 (TEL) STLMLC STLMLC [id number] [facility] 2022-01-05 00:00:00 2022-01-05 00:00:00 OFFICE VISIT ESTAB PT LEVEL 4 STLMLC STLMLC [id number] [facility] 2021-12-07 00:00:00 2021-12-07 00:00:00 (TEL) STLMLC STLMLC [id number] [facility] 2021-12-02 00:00:00 2021-12-02 00:00:00 OFFICE VISIT ESTAB PT LEVEL 4 STLMLC STLMLC [id number] [facility] 2021-10-06 00:00:00 2021-10-06 00:00:00 OFFICE VISIT ESTAB PT LEVEL 4 STLMLC STLMLC [id number] [facility] 2021-09-07 00:00:00 2021-09-07 00:00:00 OFFICE VISIT ESTAB PT LEVEL 4 STLMLC STLMLC [id number] [facility] 2021-08-13 00:00:00 2021-08-13 00:00:00 (TEL) STLMLC STLMLC [id number] [facility] 2021-07-31 00:00:00 2021-07-31 00:00:00 (TEL) STLMLC STLMLC [id number] [facility] 2021-07-30 00:00:00 2021-07-30 00:00:00 OFFICE VISIT ESTAB PT LEVEL 4 STLMLC STLMLC [id number] [facility] 2021-07-19 00:00:00 2021-07-19 00:00:00 Refill Maria Elena, [facility] ([facility]) 1.2.840.114 350.1.13.10 4.2.7.2.686 [id number] [facility] 2021-07-06 00:00:00 2021-07-06 00:00:00 OFFICE VISIT ESTAB PT LEVEL 4 STLMLC STLMLC [id number] [facility] 2021-07-06 00:00:00 2021-07-06 00:00:00 SUB ANNUAL [facility] VISIT STLMLC STLMLC [id number] [facility] 2021-07-03 00:00:00 2021-07-03 00:00:00 (TEL) STLMLC STLMLC [id number] [facility] 2021-06-23 00:00:00 2021-06-23 00:00:00 (TEL) STLMLC STLMLC [id number] [facility] 2021-06-22 00:00:00 2021-06-22 00:00:00 (TEL) STLMLC STLMLC [id number] [facility] 2021-05-28 00:00:00 2021-05-28 00:00:00 (IN/ASP) INJ ASP STLMLC STLMLC [id number] [facility] 2021-05-21 00:00:00 2021-05-21 00:00:00 (IN/ASP) INJ ASP STLMLC STLMLC [id number] [facility] 2021-05-14 00:00:00 2021-05-14 00:00:00 (IN/ASP) INJ ASP STLMLC STLMLC [id number] [facility] 2021-04-28 00:00:00 2021-04-28 00:00:00 (TEL) STLMLC STLMLC [id number] [facility] 2021-04-27 00:00:00 2021-04-27 00:00:00 (TEL) STLMLC STLMLC [id number] [facility] 2021-04-24 00:00:00 2021-04-24 00:00:00 (TEL) STLMLC STLMLC [id number] [facility] 2021-04-20 00:00:00 2021-04-20 00:00:00 OFFICE VISIT NEW PT LEVEL 4 STLMLC STLMLC [id number] [facility] 2021-04-07 00:00:00 2021-04-07 00:00:00 (HOSP F/U) Hospital Follow Up STLMLC STLMLC [id number] [facility] 2021-04-02 00:00:00 2021-04-02 00:00:00 (TEL) STLMLC STLMLC [id number] [facility] 2021-03-26 00:00:00 2021-03-26 00:00:00 OFFICE VISIT ESTAB PT LEVEL 4 STLMLC STLMLC [id number] [facility] 2021-03-03 00:00:00 2021-03-03 00:00:00 Outpatient STLMLC STLMLC [id number] [facility] 2021-02-27 00:00:00 2021-02-27 00:00:00 Outpatient STLMLC STLMLC [id number] [facility] 2021-02-25 00:00:00 2021-02-25 00:00:00 Outpatient STLMLC STLMLC [id number] [facility] 2021-01-21 00:00:00 2021-01-21 00:00:00 Outpatient STLMLC STLMLC [id number] [facility] 2021-01-19 00:00:00 2021-01-19 00:00:00 Outpatient STLMLC STLMLC [id number] [facility] 2021-01-16 11:30:00 2021-01-16 11:30:00 Outpatient R [facility] [id number] [facility] 2021-01-14 08:50:00 2021-01-14 08:55:00 Pre-Anesth esia Evaluation Call, Clc Apac Phone [facility] ([facility]) 1.2.840.114 350.1.13.10 4.2.7.2.686 [id number] [facility] 2021-01-13 07:25:00 2021-01-13 07:30:00 Pre-Anesth esia Evaluation Call, Clc Apac Phone [facility] ([facility]) 1.2.840.114 350.1.13.10 4.2.7.2.686 [id number] [facility] 2020-12-24 00:00:00 2020-12-24 00:00:00 Outpatient STLMLC STLMLC [id number] [facility] 2020-12-24 00:00:00 2020-12-24 00:00:00 Outpatient STLMLC STLMLC [id number] [facility] 2020-12-24 00:00:00 2020-12-24 00:00:00 Outpatient STLMLC STLMLC [id number] [facility] 2020-12-19 00:00:00 2020-12-19 00:00:00 Outpatient STLMLC STLMLC [id number] [facility] 2020-12-18 00:00:00 2020-12-18 00:00:00 Outpatient STLMLC STLMLC [id number] [facility] 2020-11-25 09:18:00 2020-11-25 13:13:00 Hospital Encounter [facility] ([facility]) 1.2.840.114 350.1.13.10 4.2.7.2.686 [id number] 2020-11-25 11:00:00 2020-11-25 12:14:[address] [facility] ([facility]) 1.2.840.114 350.1.13.10 4.2.7.2.686 [id number] 2020-11-25 00:00:00 2020-11-25 00:00:00 Orders Only Doctor Unassigned, [place] [facility] 1.2.840.114 350.1.13.10 4.2.7.2.686 [id number] 2020-11-25 00:00:00 2020-11-25 00:00:00 Prep For Surgery [facility] 1.2.840.114 350.1.13.10 4.2.7.2.686 [id number] 2020-11-25 00:00:00 2020-11-25 00:00:00 Refill [facility] ([facility]) 1.2.840.114 350.1.13.10 4.2.7.2.686 [id number] 2020-11-25 00:00:00 2020-11-25 00:00:00 Refill [facility] ([facility]) 1.2.840.114 350.1.13.10 4.2.7.2.686 [id number] 2020-11-24 07:55:00 2020-11-24 08:00:00 Pre-Anesth esia Evaluation Call, [facility] Apac Phone [facility] ([facility]) 1.2.840.114 350.1.13.10 4.2.7.2.686 [id number] [facility] [id number] [facility] 2020-11-21 12:15:00 2020-11-21 12:20:00 Pre-Anesth esia Evaluation Call, Clc Apac Phone [facility] ([facility]) 1.2.840.114 350.1.13.10 4.2.7.2.686 [id number] [facility] 2020-11-19 13:30:00 2020-11-19 13:35:00 Pre-Anesth esia Evaluation Call, Clc Apac Phone [facility] ([facility]) 1.2.840.114 350.1.13.10 4.2.7.2.686 [id number] [facility] 2020-11-14 00:00:00 2020-11-14 00:00:00 Outpatient STLMLC STLMLC [id number] [facility] 2020-11-12 00:00:00 2020-11-12 00:00:00 Outpatient STLMLC STLMLC [id number] [facility] 2020-11-03 00:00:00 2020-11-03 00:00:00 Prep For Surgery [facility] 1.2.840.114 350.1.13.10 4.2.7.2.686 [id number] 2020-10-31 00:00:00 2020-10-31 00:00:00 Telephone [facility] 1.2.840.114 350.1.13.10 4.2.7.2.686 [id number] 2020-10-24 00:00:00 2020-10-24 00:00:00 Outpatient STLMLC STLMLC [id number] [facility] 2020-10-15 00:00:00 2020-10-15 00:00:00 Outpatient STLMLC STLMLC [id number] [facility] 2020-07-23 11:51:15 2020-07-23 12:06:15 Laboratory Only Only, Adc Test [facility] 1.2.840.114 350.1.13.10 4.2.7.2.686 [id number] 2020-07-23 11:00:00 2020-07-23 11:00:00 Outpatient R [facility] [id number] [facility] 2020-07-23 10:55:00 2020-07-23 11:00:00 Pre-Anesth esia Evaluation Call, Clc Apac Phone [facility] ([facility]) 1.2.840.114 350.1.13.10 4.2.7.2.686 [id number] [facility] 2020-07-23 00:00:00 2020-07-23 00:00:00 Orders Only Doctor Unassigned, [place] [facility] 1.2.840.114 350.1.13.10 4.2.7.2.686 [id number] 2020-07-21 08:35:00 2020-07-21 08:40:00 Pre-Anesth esia Evaluation Call, Clc ApaConsano Phone [facility] ([facility]) 1.2.840.114 350.1.13.10 4.2.7.2.686 [id number] [facility] 2020-07-18 07:25:00 2020-07-18 07:30:00 Pre-Anesth esia Evaluation Call, Clc Apac Phone [facility] ([facility]) 1.2.840.114 350.1.13.10 4.2.7.2.686 [id number] [facility] 2020-07-18 00:00:00 2020-07-18 00:00:00 Outpatient STLMLC STLMLC [id number] [facility] 2020-07-17 08:35:00 2020-07-17 08:40:00 Pre-Anesth esia Evaluation Call, Clc Apac Phone [facility] ([facility]) 1.2.840.114 350.1.13.10 4.2.7.2.686 [id number] [facility] 2020-07-15 13:45:51 2020-07-15 14:15:51 Office Visit Nivia Bess [facility] 1.2.840.114 350.1.13.10 4.2.7.2.686 [id number] 2020-07-15 13:45:00 2020-07-15 13:45:00 [facility] [id number] [facility] 2020-06-18 00:00:00 2020-06-18 00:00:00 Outpatient STLMLC STLMLC [id number] [facility] 2020-06-17 08:30:00 2020-06-17 08:30:00 Outpatient R JOE MORALES [facility] [id number] [facility] 2020-06-09 09:00:00 2020-06-09 09:00:00 Outpatient R [facility] [id number] [facility] 2020-05-15 00:00:00 2020-05-15 00:00:00 Outpatient STLMLC STLMLC [id number] [facility] 2020-05-13 09:00:00 2020-05-13 09:00:00 Outpatient R JOE MORALES [facility] [id number] [facility] 2020-04-17 00:00:00 2020-04-17 00:00:00 Outpatient STLMLC STLMLC [id number] [facility] 2020-04-11 00:00:00 2020-04-11 00:00:00 Outpatient STLMLC STLMLC [id number] [facility] 2020-04-08 00:00:00 2020-04-08 00:00:00 Outpatient STLMLC STLMLC [id number] [facility] 2020-03-20 00:00:00 2020-03-20 00:00:00 Outpatient STLMLC STLMLC [id number] [facility] 2019-12-19 10:45:00 2019-12-19 10:45:[address] [facility] [id number] [facility] 2019-12-19 10:00:00 2019-12-19 10:00:00 [facility] [id number] [facility] 2019-12-03 10:17:00 2019-12-03 10:17:00 [facility] [id number] [facility] 2019-12-03 09:59:00 2019-12-03 09:59:00 Out[facility] [id number] [facility] 2019-11-29 09:45:00 2019-11-29 09:45:00 Out[facility] [id number] [facility] 2019-11-13 11:17:00 2019-11-13 11:17:[address] [facility] [id number] [facility] 2019-11-06 15:08:00 2019-11-06 15:08:00 [facility] [id number] [facility] 2019-11-01 16:03:00 2019-11-01 16:03:00 [facility] [id number] [facility] 2019-10-31 09:15:00 2019-10-31 09:15:00 [facility] [id number] [facility] 2019-10-01 10:00:00 2019-10-01 10:00:00 [facility] [id number] [facility] 2019-08-27 14:00:00 2019-08-27 14:00:00 Outpatient [facility] [id number] [facility] 2019-07-30 11:00:00 2019-07-30 11:00:00 Outpatient [facility] [id number] [facility] 2019-07-18 01:45:00 2019-07-18 01:45:00 Outpatient [facility] [id number] 22828 Iv[facility] h Program Results Test Description Test Time Test Comments Results Result Co mments Source Sergio Charles AustinLIPID [id number] 00:00:00* Test Item Value Reference Range Interpretation Comme nts CHOLESTEROL (test code = 2210) 284 MG/DL TRIGLYCERIDES (test code = 2232) 335 MG/DL HDL CHOLESTEROL (test code = 2220) 49 MG/DL CALC LDL CHOL (test code = 2237) 178 MG/DL RISK RATIO LDL/HDL (test cod e = 2238) 3.63 RATIO Sergio HayesCOMPREHENSIVE METABOLIC [id number] 00:00:00* Test Item Value Reference Range Interpretation Comme nts GLUCOSE (test code = 2217) 126 MG/DL BUN (test code = 2208) 19 MG/DL CREATININE (test code = 2214) 1.09 MG/DL eGFR (2020 CKD-EPI) (test co de = 83452) 56 ML/MIN/1.73 CALC BUN/CREAT (test code = 2235) 17 RATIO SODIUM (test code = 2231) 140 MEQ/L POTASSIUM (test code = 2228) 5.1 MEQ/L CHLORIDE (test code = 2215) 101 MEQ/L CARBON DIOXIDE (test code = 2206) 20 MEQ/L CALCIUM (test code = 2209) 9.9 MG/DL PROTEIN, TOTAL (test code = 2229) 6.8 G/DL ALBUMIN (test code = 2201) 4.3 G/DL CALC GLOBULIN (test code = 2240) 2.5 G/DL CALC A/G RATIO (test code = 2234) 1.7 RATIO BILIRUBIN, TOTAL (test code = 2207) <0.2 MG/DL ALKALINE PHOSPHATASE (test code = 2204) 131 U/L AST (test code = 2218) 27 U/L ALT (test code = 2219) 22 U/L Sergio Charles FreddyURINALYSIS W/REFLEX [id number] 00:00:00* Test Item Value Reference Range Interpretation Comme nts COLOR (test code = 1501) YELLOW APPEARANCE (test code = 1502) CLEAR SPECIFIC GRAVITY (test code = 1503) 1.020 LEUKOCYTE ESTERASE (test cod e = 1504) NEGATIVE NITRITE (test code = 1505) NEGATIVE pH (test code = 1506) 6.5 PROTEIN (test code = 1507) NEGATIVE GLUCOSE (test code = 1508) NEGATIVE KETONES (test code = 1509) TRACE UROBILINOGEN (test code = 1510) 0.2 MG/DL BILIRUBIN (test code = 1511) NEGATIVE OCCULT BLOOD (test code = 1512) NEGATIVE Sergio Charles FreddyCOMPREHENSIVE METABOLIC [id number] 00:00:00* Test Item Value Reference Range Interpretation Comme nts GLUCOSE (test code = 2217) 126 MG/DL BUN (test code = 2208) 15 MG/DL CREATININE (test code = 2214) 1.04 MG/DL eGFR (2020 CKD-EPI) (test co de = 43499) 60 ML/MIN/1.73 CALC BUN/CREAT (test code = [...] code = 2219) 70 U/L Sergio Charles FreddyCBC W/AUTO [id number] 00:00:00* Test Item Value Reference Range Interpretation [...] ABS NUCLEATED RBCS (test cod e = 13311) 0.00 K/UL Sergio F AustinURINALYSIS W/REFLEX [id number] 00:00:00* Test Item Value Reference Range Interpretation [...] 0-2 /HPF EPITHELIAL CELLS (test code = 80835) 0-5 /HPF BACTERIA (test code = 1515) NONE SEEN CASTS, HYALINE (test code = 1517) MODERATE Sergio HayesPROTHROMBIN TIME (PT)2023-03-11 00:00:00* Test Item Value Reference Range Interpretation Comme nts PROTHROMBIN TIME (PT) (test code = 1402) 14.8 SECONDS INR (test code = 11315) 1.1 Sergio HayesCOMPREHENSIVE METABOLIC [id number] 00:00:00* Test Item Value Reference Range Interpretation Comme nts GLUCOSE (test code = 2217) 126 MG/DL BUN (test code = 2208) 15 MG/DL CREATININE (test code = 2214) 1.04 MG/DL eGFR (2020 CKD-EPI) (test co de = 35233) 60 ML/MIN/1.73 CALC BUN/CREAT (test code = [...] (test code = 2219) 70 U/L Sergio HayesCBC W/AUTO [id number] 00:00:00* Test Item Value Reference Range Interpretation [...] ABS NUCLEATED RBCS (test cod e = 95089) 0.00 K/UL Sergio F AustinURINALYSIS W/REFLEX [id number] 00:00:00* Test Item Value Reference Range Interpretation [...] 0-2 /HPF EPITHELIAL CELLS (test code = 00899) 0-5 /HPF BACTERIA (test code = 1515) NONE SEEN CASTS, HYALINE (test code = 1517) MODERATE Sergio HayesPROTHROMBIN TIME (PT)2023-03-11 00:00:00* Test Item Value Reference Range Interpretation Comme nts PROTHROMBIN TIME (PT) (test code = 1402) 14.8 SECONDS INR (test code = 25153) 1.1 Sergio HayesCOMPREHENSIVE METABOLIC [id number] 00:00:00* Test Item Value Reference Range Interpretation Comme nts GLUCOSE (test code = 2217) 126 MG/DL BUN (test code = 2208) 15 MG/DL CREATININE (test code = 2214) 1.04 MG/DL eGFR (2020 CKD-EPI) (test co de = 46087) 60 ML/MIN/1.73 CALC BUN/CREAT (test code = [...] (test code = 2219) 70 U/L Sergio HayesCBC W/AUTO [id number] 00:00:00* Test Item Value Reference Range Interpretation [...] ABS NUCLEATED RBCS (test cod e = 05915) 0.00 K/UL Sergio HayesURINALYSIS W/REFLEX [id number] 00:00:00* Test Item Value Reference Range Interpretation [...] 0-2 /HPF EPITHELIAL CELLS (test code = 56747) 0-5 /HPF BACTERIA (test code = 1515) NONE SEEN CASTS, HYALINE (test code = 1517) MODERATE Sergio HayesPROTHROMBIN TIME (PT)2023-03-11 00:00:00* Test Item Value Reference Range Interpretation Comme nts PROTHROMBIN TIME (PT) (test code = 1402) 14.8 SECONDS INR (test code = 67159) 1.1 Sergio HayesCBC W/AUTO [id number] 00:00:00* Test Item Value Reference Range Interpretation [...] ABS NUCLEATED RBCS (test cod e = 73096) 0.00 K/UL Sergio HayesLIPID [id number] 00:00:00* Test Item Value Reference Range Interpretation Comme nts CHOLESTEROL (test code = 2210) 216 MG/DL TRIGLYCERIDES (test code = 2232) 291 MG/DL HDL CHOLESTEROL (test code = 2220) 55 MG/DL CALC LDL CHOL (test code = 2237) 116 MG/DL RISK RATIO LDL/HDL (test cod e = 2238) 2.11 RATIO Sergio Charles FreddyCOMPREHENSIVE METABOLIC [id number] 00:00:00* Test Item Value Reference Range Interpretation Comme nts GLUCOSE (test code = 2217) 109 MG/DL BUN (test code = 2208) 36 MG/DL CREATININE (test code = 2214) 0.96 MG/DL eGFR (2020 CKD-EPI) (test co de = 41417) 66 ML/MIN/1.73 CALC BUN/CREAT (test code = [...] 2219) 58 U/L Sergio Charles AustinURINALYSIS W/REFLEX [id number] 00:00:00* Test Item Value Reference Range Interpretation [...] 3-5 /HPF EPITHELIAL CELLS (test code = 58122) 0-5 /HPF BACTERIA (test code = 1515) 3+ CASTS, HYALINE (test code = 1517) TRACE Sergio Charles [id number] 00:00:00* Test Item Value Reference Range Interpretation Comme nts PTT (test code = 1403) 34.4 SECONDS Sergio HayesCBC W/AUTO [id number] 00:00:00* Test Item Value Reference Range Interpretation [...] ABS NUCLEATED RBCS (test cod e = 53863) 0.00 K/UL Sergio Melvin AustinLIPID [id number] 00:00:00* Test Item Value Reference Range Interpretation Comme nts CHOLESTEROL (test code = 2210) 216 MG/DL TRIGLYCERIDES (test code = 2232) 291 MG/DL HDL CHOLESTEROL (test code = 2220) 55 MG/DL CALC LDL CHOL (test code = 2237) 116 MG/DL RISK RATIO LDL/HDL (test cod e = 2238) 2.11 RATIO Sergio HayesCOMPREHENSIVE METABOLIC [id number] 00:00:00* Test Item Value Reference Range Interpretation Comme nts GLUCOSE (test code = 2217) 109 MG/DL BUN (test code = 2208) 36 MG/DL CREATININE (test code = 2214) 0.96 MG/DL eGFR (2020 CKD-EPI) (test co de = 44065) 66 ML/MIN/1.73 CALC BUN/CREAT (test code = [...] = 2219) 58 U/L Sergio HayesURINALYSIS W/REFLEX [id number] 00:00:00* Test Item Value Reference Range Interpretation [...] 3-5 /HPF EPITHELIAL CELLS (test code = 14033) 0-5 /HPF BACTERIA (test code = 1515) 3+ CASTS, HYALINE (test code = 1517) TRACE Sergio [id number] 00:00:00* Test Item Value Reference Range Interpretation Comme nts PTT (test code = 1403) 34.4 SECONDS Sergio HayesCBC W/AUTO [id number] 00:00:00* Test Item Value Reference Range Interpretation [...] ABS NUCLEATED RBCS (test cod e = 26812) 0.00 K/UL Sergio HayesLIPID [id number] 00:00:00* Test Item Value Reference Range Interpretation Comme nts CHOLESTEROL (test code = 2210) 216 MG/DL TRIGLYCERIDES (test code = 2232) 291 MG/DL HDL CHOLESTEROL (test code = 2220) 55 MG/DL CALC LDL CHOL (test code = 2237) 116 MG/DL RISK RATIO LDL/HDL (test cod e = 2238) 2.11 RATIO Sergio HayesCOMPREHENSIVE METABOLIC [id number] 00:00:00* Test Item Value Reference Range Interpretation Comme nts GLUCOSE (test code = 2217) 109 MG/DL BUN (test code = 2208) 36 MG/DL CREATININE (test code = 2214) 0.96 MG/DL eGFR (2020 CKD-EPI) (test co de = 86344) 66 ML/MIN/1.73 CALC BUN/CREAT (test code = [...] 2219) 58 U/L Sergio Charles AustinURINALYSIS W/REFLEX [id number] 00:00:00* Test Item Value Reference Range Interpretation [...] 3-5 /HPF EPITHELIAL CELLS (test code = 99862) 0-5 /HPF BACTERIA (test code = 1515) 3+ CASTS, HYALINE (test code = 1517) TRACE Sergio Charles [id number] 00:00:00* Test Item Value Reference Range Interpretation Comme nts PTT (test code = 1403) 34.4 SECONDS Sergio HayesBASIC METABOLIC PANEL (NA, K, CL, CO2, GLUCOSE, BUN, CREATININE, CA)2022-06-15 22:23:06* Test Item Value Reference Range Interpretation Comme nts NA (test code = 9377347601) 138 mmol/L 135-145 K (test code = 8083140789) 4.0 mmol/L 3.5-5.0 CL (test code = 0964110041) 106 mmol/L 98-108 CO2 TOTAL (test code = 0054530573) 27 mmol/L 23-31 AGAP (test code = 3380742583) 2-16 BUN (test code = 8493368406) 9 mg/dL 7-23 GLUCOSE (test code = [id number]) 90 mg/dL 70-110 CREATININE (test code = 2556352328) 0.83 mg/dL 0.50-1.04 CALCIUM (test code = 3311999477) 9.2 mg/dL 8.6-10.6 eGFR (test code = 6372844997) mL/min/1.73m2 PEBBLES (test code = PEBBLES) Association [...] or urine or abnormalities in imaging tests). [facility] Test Item Value Reference Range Interpretation Comme nts MAGNESIUM (test code = 1026764964) 1.9 mg/dL 1.7-2.4 Lab Interpretation (test cod e = 02622-1) [facility] (NA, K, CL, CO2, GLUCOSE, BUN, CREATININE, CA)2022-06-15 22:23:06* Test Item Value Reference Range Interpretation Comme nts NA (test code = 3208932848) 138 mmol/L 135-145 K (test code = 9697426300) 4.0 mmol/L 3.5-5.0 CL (test code = 3524818997) 106 mmol/L 98-108 CO2 TOTAL (test code = 5056880796) 27 mmol/L 23-31 AGAP (test code = 4456556287) 2-16 BUN (test code = 9009326228) 9 mg/dL 7-23 GLUCOSE (test code = 3067511417) 90 mg/dL 70-110 CREATININE (test code = 9238623662) 0.83 mg/dL 0.50-1.04 CALCIUM (test code = 2213131927) 9.2 mg/dL 8.6-10.6 eGFR (test code = 6045905070) mL/min/1.73m2 PEBBLES (test code = PEBBLES) Association [...] or urine or abnormalities in imaging tests). [facility]:23:06* Test Item Value Reference Range Interpretation Comme nts MAGNESIUM (test code = 3627668276) 1.9 mg/dL 1.7-2.4 Lab Interpretation (test cod e = 35560-6) Normal [facility] WITH [id number] 22:16:47* Test Item Value Reference Range Interpretation Comme nts WBC (test code = 6690-2) See_Comment [Automated [employer]] The system which generated this result transmitted reference range: 4.30 - 11.10 10*3/?L. The reference range was not used to interpret this result as normal/abnormal. RBC (test code = 789-8) See_Comment L [Automated [employer]] The system which generated this result transmitted [...] 33.0 g/dL 31.6-35.1 RDW-SD (test code = 23042-9) 47.9 fL 39.0-49.9 RDW-CV (test code = 788-0) 13.8 % 12.0-15.5 PLT (test code = 777-3) See_Comment H [Automated messa ge] The system which generated this result transmitted reference range: 166 - 358 10*3/?L. The reference range was not used to interpret this result as normal/abnormal. MPV (test code = 88462-8) 9.6 fL 9.5-12.9 NRBC/100 WBC (test code = 4442967953) See_Comment [Automated [employer] ssage] The system which generated this result transmitted reference range: 0.0 - 10.0 /100 WBCs. The reference range was not used to interpret this result as normal/abnormal. NRBC x10^3 (test code = 5998854679) See_Comment [Automated [employer]] The system which generated this result transmitted reference range: 10*3/?L. The reference range was not used to interpret this result as normal/abnormal. GRAN MAT (NEUT) % (test code = 770-8) 71.6 % IMM GRAN % (test code = 1475995838) 0.90 % LYMPH % (test code = 736-9) 14.8 % MONO % (test code = 5905-5) 9.9 % EOS % (test code = 713-8) 2.3 % BASO % (test code = 706-2) 0.5 % GRAN MAT x10^3(ANC) (test code = 0575794686) 6.19 10*3/uL 1.88-7.09 IMM GRAN x10^3 (test code = 0510620701) 0.08 10*3/uL 0.00-0.06 H LYMPH x10^3 (test code = 731-0) 1.28 10*3/uL 1.32-3.29 L MONO x10^3 (test code = 742-7) 0.86 10*3/uL 0.33-0.92 EOS x10^3 (test code = 711-2) 0.20 10*3/uL 0.03-0.39 BASO x10^3 (test code = 704-7) 0.04 10*3/uL 0.01-0.07 Lab Interpretation (test code = 92436-6) Abnormal [facility] WITH [id number] 22:16:47* Test Item Value Reference Range Interpretation [...] 33.0 g/dL 31.6-35.1 RDW-SD (test code = 46568-3) 47.9 fL 39.0-49.9 RDW-CV (test code = 788-0) 13.8 % 12.0-15.5 PLT (test code = 777-3) See_Comment H [Automated messa ge] The system which generated this result transmitted reference range: 166 - 358 10*3/?L. The reference range was not used to interpret this result as normal/abnormal. MPV (test code = 35347-7) 9.6 fL 9.5-12.9 NRBC/100 WBC (test code = 3868298866) See_Comment [Automated me ssage] The system which generated this result transmitted reference range: 0.0 - 10.0 /100 WBCs. The reference range was not used to interpret this result as normal/abnormal. NRBC x10^3 (test code = 2760690150) See_Comment [Automated messa ge] The system which generated this result transmitted reference range: 10*3/?L. The reference range was not used to interpret this result as normal/abnormal. GRAN MAT (NEUT) % (test code = 770-8) 71.6 % IMM GRAN % (test code = 1590737938) 0.90 % LYMPH % (test code = 736-9) 14.8 % MONO % (test code = 5905-5) 9.9 % EOS % (test code = 713-8) 2.3 % BASO % (test code = 706-2) 0.5 % GRAN MAT x10^3(ANC) (test code = 0080692533) 6.19 10*3/uL 1.88-7.09 IMM GRAN x10^3 (test code = 6257156798) 0.08 10*3/uL 0.00-0.06 H LYMPH x10^3 (test code = 731-0) 1.28 10*3/uL 1.32-3.29 L MONO x10^3 (test code = 742-7) 0.86 10*3/uL 0.33-0.92 EOS x10^3 (test code = 711-2) 0.20 10*3/uL 0.03-0.39 BASO x10^3 (test code = 704-7) 0.04 10*3/uL 0.01-0.07 Lab Interpretation (test code = 97270-5) Abnormal [facility]"
--- NOTE | 2024-06-07 12:10 | EDPHYS ---
Physician Documentation [facility] Name: Martha Pradhan Age: 63 yrs Sex: Female : 1960 Arrival Date: 06/07/2024 Time: 11:24 Bed IW5 Private MD: ED Physician Star Enriquez Historical: - Allergies: 06/07 12:05 haloperidol lactate; cm10 12:05 hydroxyzine HCl; cm10 12:05 Hydroxyzine Pamoate; cm10 12:05 Ibuprofen; cm10 12:05 Lyrica; cm10 12:05 meloxicam; cm10 12:05 nalbuphine HCl; cm10 12:05 Naproxen; cm10 12:05 NSAIDS (Non-Steroidal Anti-Inflammatory Drug); cm10 12:05 Nubain; cm10 12:05 Risperdal; cm10 12:05 Vistaril; cm10 - PMHx: 12:05 ADD/ADHD; Anxiety; restless leg syndrome; Osteoporosis; GERD; Back pain; Arthritis; cm10 Chronic pain; bleeding ulcers; Irritable bowel syndrome; PE; Tachycardia; ULCER; - PSHx: 12:05 Appendectomy; hysterectomy; left clavicle repair; cm10 - Immunization history:: Adult Immunizations up to date. - Infectious Disease History:: Denies. - Social history:: Smoking status: unknown. Vital Signs: 12:02 BP 134 / 64; Pulse 63; Resp 15; Temp 97.4(TE); Pulse Ox 100% on R/A; Weight 56.7 kg; cm10 Height 5 ft. 0 in. ; Pain 8/10; 12:02 Body Mass Index 24.41 (56.70 kg, 152.4 cm) cm10 12:02 Pain Scale: Adult cm10 MDM: 12:06 Medical Screening Exam initiated ec2 Administered Medications: No medications were administered Disposition Summary: 06/07/24 12:10 Discharge Ordered Notes: Location: Home ec2 Condition: Stable ec2 Diagnosis - Acute suppurative otitis media ec2 - Sprain of ribs ec2 Followup: ec2 - With: Private Physician - When: - Reason: Re-evaluation by your physician Discharge Instructions: - Discharge Summary Sheet ec2 - Rib Contusion ec2 - Otitis Media, Adult, [id number] ec2 Forms: - Medication Reconciliation Form ec2 - Antibiotic Education ec2 - Prescription Opioid Use ec2 - Patient Portal Instructions ec2 - Leadership Thank You Letter ec2 Prescriptions: - Augmentin 875-125 mg Oral tablet - take 1 tablet ORAL route every 12 hours for 7 days; 14 tablet; Refills: 0, ec2 Product Selection Permitted - Prednisone 20 mg Oral Tablet - take 2 tablets ORAL route once daily for 5 days; 10 tablet; Refills: 0, Product ec2 Selection Permitted Signatures: Shirlene Andrew RN RN cm10 Star Enriquez MD MD ec2
--- NOTE | 2024-06-07 12:10 | ER ---
Nurse's Notes [facility] Name: Martha Pradhan Age: 63 yrs Sex: Female : 1960 Arrival Date: 06/07/2024 Time: 11:24 Bed IW5 Private MD: Diagnosis: Acute suppurative otitis media;Sprain of ribs Presentation: 06/07 12:02 Chief complaint: Patient states: Tuesday bent over and felt something pop on her left cm10 ribs and is now having pain. pt also reports feeling something pop in her right ear and clear drainage from ear. Coronavirus screen: Client denies travel out of the [place] in the last 14 days. Ebola Screen: Patient denies travel to an Ebola-affected area in the 21 days before illness onset. No symptoms or risks identified at this time. Initial Sepsis Screen: Does the patient meet any 2 criteria? No. Patient's initial sepsis screen is negative. Does the patient have a suspected source of infection? No. Patient's initial sepsis screen is negative. Risk Assessment: Do you want to hurt yourself or someone else? Patient reports no desire to harm self or others. Onset of symptoms was June 07, 2024. 12:02 Method Of Arrival: Ambulatory cm10 12:02 Acuity: ROSALBA 4 cm10 Triage Assessment: 12:07 General: Appears in no apparent distress. comfortable, Behavior is calm, cooperative. cm10 EENT: Reports Drainage from right ear. Neuro: No deficits noted. Level of Consciousness is awake, alert, obeys commands, Oriented to person, place, time, situation, Appropriate for age. Respiratory: No deficits noted. Reports cough that is productive, Airway is patent Respiratory effort is even, unlabored, Respiratory pattern is regular, symmetrical. Historical: - Allergies: 12:05 haloperidol lactate; cm10 12:05 hydroxyzine HCl; cm10 12:05 Hydroxyzine Pamoate; cm10 12:05 Ibuprofen; cm10 12:05 Lyrica; cm10 12:05 meloxicam; cm10 12:05 nalbuphine HCl; cm10 12:05 Naproxen; cm10 12:05 NSAIDS (Non-Steroidal Anti-Inflammatory Drug); cm10 12:05 Nubain; cm10 12:05 Risperdal; cm10 12:05 Vistaril; cm10 - PMHx: 12:05 ADD/ADHD; Anxiety; restless leg syndrome; Osteoporosis; GERD; Back pain; Arthritis; cm10 Chronic pain; bleeding ulcers; Irritable bowel syndrome; PE; Tachycardia; ULCER; - PSHx: 12:05 Appendectomy; hysterectomy; left clavicle repair; cm10 - Immunization history:: Adult Immunizations up to date. - Infectious Disease History:: Denies. - Social history:: Smoking status: unknown. Screenin:13 [facility] ED Fall Risk Assessment (Adult) History of falling in the last 3 months, cm10 including since admission No falls in past 3 months (0 pts) Confusion or Disorientation No (0 pts) Intoxicated or Sedated No (0 pts) Impaired Gait No (0 pts) Mobility Assist Device Used No (0 pt) Altered Elimination No (0 pt) Score/Fall Risk Level 0 - 2 = Low Risk Oriented to surroundings, Maintained a safe environment, Hourly rounding (assess needs \T\ fall precautionary measures) done. Abuse screen: Denies threats or abuse. Denies injuries from another. Nutritional screening: No deficits noted. Tuberculosis screening: No symptoms or risk factors identified. Vital Signs: 12:02 BP 134 / 64; Pulse 63; Resp 15; Temp 97.4(TE); Pulse Ox 100% on R/A; Weight 56.7 kg; cm10 Height 5 ft. 0 in. ; Pain 8/10; 12:02 Body Mass Index 24.41 (56.70 kg, 152.4 cm) cm10 12:02 Pain Scale: Adult cm10 ED Course: 11:26 Patient arrived in ED. mr 11:30 Star Enriquez MD is Attending Physician. ec2 12:04 Triage completed. cm10 12:07 Arm band placed on right wrist. Patient placed in waiting room. cm10 12:13 Patient has correct armband on for positive identification. Provided Education on: cm10 Follow-up instructions. 12:13 No provider procedures requiring assistance completed. Patient did not have IV access cm10 during this emergency room visit. Administered Medications: No medications were administered Medication: 12:13 VIS not applicable for this client. cm10 Outcome: 12:10 Discharge ordered by . ec2 12:14 Discharged to home ambulatory, cm10 12:14 Condition: good 12:14 Discharge instructions given to patient, Instructed on discharge instructions, follow up and referral plans. medication usage, Demonstrated understanding of instructions, follow-up care, medications, Prescriptions given X 2, 12:14 Patient left the ED. cm10 Signatures: Annie Sanchez Reg Reg mr Martinez, Clarissa, RN RN cm10 Star Enriquez MD MD ec2
[2024-06-07 12:18] VITALS: BP 134/64; TEMP 97.4; O2SAT 100
== END 2024-06-07 12:14 | disposition home or self-care (01) ==
LOC: ER 11:24
DX: H66.001 Acute suppurative otitis media without spontaneous rupture of ear drum, right ear (principal); S23.41XA Sprain of ribs, initial encounter
CPT/HCPCS: 99283

== ENCOUNTER 2025-03-14 21:01 | Emergency (ER) | payer OTHER ==
--- NOTE | 2025-03-14 21:58 | RAD REPORT ---
EXAMINATION: ONE VIEW CHEST XR CLINICAL INDICATION: PALPITATIONS TECHNIQUE: Frontal chest projection is submitted. Examination is limited by patient positioning and t echnique. COMPARISON: 02/28/2025 FINDINGS: The lungs are well inflated and clear. The heart is normal in size. No displaced fractures identified . Small hiatal hernia. Left shoulder and left clavicle hardware. Again noted moderately displaced proximal right humerus fracture.
[2025-03-14 22:03] LABS: Absolute Lymphocytes (CBC) 1.0 K/uL (0.7-4.9); Hematocrit 35.2 % (36.0-45.0); Hemoglobin 11.2 g/dL (12.0-15.0); MCH 27.4 pg (27.0-35.0); MCHC 31.8 g/dL (32.0-36.0); MCV 86.1 fL (80-100); MPV 7.8 fL (7.6-11.3); Nucleated RBC Absolute Count 0.0 (0-0); Nucleated Red Blood Cells % 0.1 % (0-0); RBC Red Blood Cell Count 4.09 M/uL (3.86-4.86); White Blood Count 14.80 thou/uL (4.3-10.9)
[2025-03-14 22:07] LABS: PT Prothrombin Time 16.6 SECONDS (10-13.0); Protime INR 1.49
[2025-03-14] MEDS ORDERED: NA CHLORIDE 0.9% 500 ML ONE (22:55)
[2025-03-14 23:22] LABS: ALT/SGPT 21 U/L (13-56); AST/SGOT 36 U/L (15-37); Albumin 3.2 g/dL (3.4-5.0); Albumin/Globulin Ratio 0.8 (1.1-1.8); Alkaline Phosphatase 180 U/L (45-117); Anion Gap 12.2 mEq/L (5.0-15.0); BUN Blood Urea Nitrogen 16 mg/dL (7-18); Bilirubin Indirect, Calculated 0.1 mg/dL (0.2-0.8); Globulin 3.9 g/dL (2.3-3.5); Glucose Level 112 mg/dL (74-106); Magnesium 1.8 mg/dL (1.6-2.4); NT PRO-BNP 3343 pg/mL (<125); Potassium 3.2 mEq/L (3.5-5.1); Troponin High Sensitivity 31.4 pg/mL (<58.9)
[2025-03-14] MEDS ORDERED: POTASSIUM 25 MEQ EFFERV TAB ONE (23:54)
[2025-03-15 00:52] LABS: Differential Total Cells Count 100; Segmented Neutrophils 82 % (40-80)
[2025-03-15 00:53] LABS: Blood Morphology Comment NOT SEEN (NOT SEEN)
[2025-03-15] MEDS ORDERED: FENTANYL CITR 100 MCG/2 ML ONE (01:02)
--- NOTE | 2025-03-15 02:38 | EDPHYS ---
Physician Documentation [facility] Name: Martha Pradhan Age: 64 yrs Sex: Female : 1960 Arrival Date: 03/14/2025 Time: 21:01 Bed 19 Private MD: ED Physician Jace Mcghee HPI: 03/14 21:15 This 64 yrs old Female presents to ER via EMS with complaints of Palpitations. cp 21:15 The patient presents with a history of heart racing. cp 21:15 Context: The symptoms occur at rest. Onset: The symptoms/episode began/occurred today. cp Duration: The patient or guardian reports a single episode, that is still ongoing. Associated signs and symptoms: Pertinent positives: SOB, Pertinent negatives: chest pain, cough, fever, syncope, near-syncope. Severity of symptoms: in the emergency department the symptoms have improved. Historical: - Allergies: 21:49 haloperidol lactate; br2 21:49 hydroxyzine HCl; br2 21:49 Hydroxyzine Pamoate; br2 21:49 Ibuprofen; br2 21:49 Lyrica; br2 21:49 meloxicam; br2 21:49 nalbuphine HCl; br2 21:49 Naproxen; br2 21:49 NSAIDS (Non-Steroidal Anti-Inflammatory Drug); br2 21:49 Nubain; br2 21:49 Risperdal; br2 21:49 Vistaril; br2 - PMHx: 21:49 ADD/ADHD; angina pectoris; Anxiety; Arthritis; Back pain; bleeding ulcers; br2 Cerebrovascular accident; Chronic obstructive lung disease; Chronic pain; Congestive heart failure; GERD; Irritable bowel syndrome; Osteoporosis; PE; restless leg syndrome; Tachycardia; Transient cerebral ischemia; ULCER; - PSHx: 21:49 Appendectomy; hysterectomy; left clavicle repair; br2 - Immunization history:: Adult Immunizations up to date. - Infectious Disease History:: Denies. - Social history:: Smoking status: Patient/guardian denies using tobacco, Patient/guardian denies using alcohol, street drugs. ROS: 21:20 Constitutional: Negative for body aches, chills, fever, poor PO intake, cp 21:20 Cardiovascular: Positive for palpitations, Negative for chest pain, edema, cp 21:20 Respiratory: Positive for shortness of breath, 21:20 Eyes: Negative for injury, pain, redness, and discharge, cp 21:20 Neck: Negative for pain with movement, pain at rest, stiffness, cp 21:20 Abdomen/GI: Negative for abdominal pain, vomiting, diarrhea, constipation, 21:20 Neuro: Negative for altered mental status, dizziness, headache, weakness, 21:20 All other systems are negative, Exam: 21:25 Constitutional: The patient appears in no acute distress, alert, awake, cp non-diaphoretic, non-toxic, well developed, well nourished, 21:25 Head/Face: Normocephalic, atraumatic. cp 21:25 Eyes: Periorbital structures: appear normal, Conjunctiva: normal, no exudate, no injection, Sclera: no appreciated abnormality, Lids and lashes: appear normal, bilaterally, 21:25 ENT: External ear(s): are unremarkable, Nose: is normal, Mouth: Lips: moist, Oral mucosa: moist, Posterior pharynx: Airway: no evidence of obstruction, patent, 21:25 Neck: ROM/movement: is normal, is supple, without pain, no range of motions limitations, 21:25 Chest/axilla: Inspection: normal, 21:25 Cardiovascular: Rate: normal, Rhythm: regular, Edema: is not appreciated, JVD: is not appreciated, 21:25 Respiratory: the patient does not display signs of respiratory distress, Respirations: normal, no use of accessory muscles, no retractions, labored breathing, is not present, Breath sounds: are clear throughout, no decreased breath sounds, 21:25 Abdomen/GI: Inspection: abdomen appears normal, Palpation: abdomen is soft and non-tender, in all quadrants, 21:25 Back: pain, is absent, 21:25 Neuro: Orientation: to person, place \T\ time. Mentation: is normal, 21:35 ECG was reviewed by the Attending Physician. cp Vital Signs: 21:46 BP 118 / 46; Pulse 83; Resp 18; Temp 97.1; Pulse Ox 99% ; Weight 49.9 kg; Height 5 ft. br2 0 in. ; Pain 0/10; 21:54 BP 101 / 35; Pulse 79; Resp 18; Pulse Ox 98% ; br2 23:00 BP 117 / 54; Pulse 78; Resp 16; Pulse Ox 94% ; br2 23:00 BP 119 / 48; Pulse 71; Resp 19; Pulse Ox 98% ; br2 03/15 02:46 BP 127 / 50; Pulse 76; Resp 22; Pulse Ox 99% ; br2 03/14 21:46 Body Mass Index 21.48 (49.90 kg, 152.4 cm) br2 03/14 21:46 Pain Scale: Adult br2 MDM: 03/14 21:09 Medical Screening Exam initiated cp 03/15 02:37 Data reviewed: vital signs, nurses notes, lab test result(s), EKG, radiologic studies, cp CT scan, plain films, and as a result, I will discharge patient. 02:37 Differential diagnosis: arrythmia, dehydration, illegal drug use, pulmonary embolism, cp acute KS. I considered the following discharge prescriptions or medication management in the emergency department Medications were administered in the Emergency Department. See MAR. Independent interpretation of the following test(s) in the Emergency Department EKG: See my EKG interpretation above. Counseling: I had a detailed discussion with the patient and/or guardian regarding the historical points, exam findings, and any diagnostic results supporting the discharge/admit diagnosis, lab results, radiology results, the need for outpatient follow up, a family practitioner, to return to the emergency department if symptoms worsen or persist or if there are any questions or concerns that arise at home. Response to treatment: the patient's symptoms have markedly improved after treatment. 03/14 21:10 Order name: Basic Metabolic Panel; Complete Time: 23:45 cp 03/14 23:46 Interpretation: Normal except: NA 135; K 3.2; GLUC 112; CRE 1.59; GFR 36. cp 03/14 21:10 Order name: CBC with Diff; Complete Time: 00:57 cp 03/14 23:47 Interpretation: Normal except: WBC 14.80; HGB 11.2; HCT 35.2; MCHC 31.8; PLT 840; RDW cp 16.0; JOSUE% 87.3; LYM% 6.7; NEUT A 12.9. 03/14 21:10 Order name: LFT's; Complete Time: 23:45 cp 03/14 23:46 Interpretation: Normal except: ALK 180; IBILI, CALC 0.1; ALB 3.2; GLOB 3.9; A/G 0.8. cp 03/14 21:10 Order name: Magnesium; Complete Time: 23:45 cp 03/14 21:10 Order name: NT PRO-BNP; Complete Time: 23:45 cp 03/14 23:46 Interpretation: Abnormal: NT PRO-BNP 3343. cp 03/14 21:10 Order name: PT-INR; Complete Time: 23:45 cp 03/14 21:10 Order name: Troponin HS; Complete Time: 23:45 cp 03/14 22:20 Order name: Manual Differential; Complete Time: 00:57 EDMS 03/14 21:10 Order name: XRAY Chest (1 view); Complete Time: 23:45 cp 03/15 00:17 Order name: CT Chest Wo Con cp 03/14 21:10 Order name: Cardiac monitoring; Complete Time: 21:45 cp 03/14 21:10 Order name: EKG - Nurse/Tech; Complete Time: 21:45 cp 03/14 21:10 Order name: IV Saline Lock; Complete Time: 21:45 cp 03/14 21:10 Order name: Labs collected and sent; Complete Time: 21:45 cp 03/14 21:10 Order name: O2 Per Protocol; Complete Time: 21:45 cp 03/14 21:10 Order name: O2 Sat Monitoring; Complete Time: 21:45 cp 03/14 22:18 Order name: Misc. Order: RECOLLRCT GREEN TOP; Complete Time: 23:02 rv1 EC/02 21:35 Rate is 74 beats/min. Rhythm is regular. PA interval is normal. QRS interval is normal. cp QT interval is normal. T waves are Inverted in lead aVR. Interpreted by me. Reviewed by me. Administered Medications: 23:02 Drug: NS 0.9% IV 500 ml 500 ml IV at 1 bolus once; to be given as a bolus over 60 br2 minutes Volume: 500 ml; Route: IV; Rate: 1 bolus; Site: left hand; 03/15 00:29 Follow up: IV Status: Completed infusion; IV Intake: 500ml br2 00:00 Drug: Potassium PO Effervescent Tablet 50 mEq PO once; dissolve in 4 ounces of water or br2 juice Route: PO; 00:29 Follow up: Response: No adverse reaction br2 01:06 Drug: fentaNYL (PF) IVP 25 mcg IVP once Route: IVP; Site: left wrist; br2 02:00 Follow up: Response: No adverse reaction; Pain is decreased br2 Disposition: 03:05 Co-signature as Attending Physician, Jace Mcghee DO I reviewed the patient's care tt7 provided by the Advanced Practice Provider and agree with the diagnosis and treatment plan. Disposition Summary: 03/15/25 02:38 Discharge Ordered Notes: Location: Home cp Problem: new cp Symptoms: have improved cp Condition: Stable cp Diagnosis - Palpitations cp - Shortness of breath cp Followup: cp - With: Private Physician - When: 1 week - Reason: Recheck today's complaints, DR Oneill Discharge Instructions: - Discharge Summary Sheet cp - Palpitations cp - Shortness of Breath, Adult cp - Aspirin and Your Heart cp - Ambulatory Cardiac Monitoring cp Forms: - Medication Reconciliation Form cp - Antibiotic Education cp - Prescription Opioid Use cp - Patient Portal Instructions cp - Leadership Thank You Letter cp Signatures: Dispatcher [facility] Keyshawn Chan PA-C PA-C cp Villegas, Rebecca rv1 Karin Terry RN RN br2 Jace Mcghee DO DO tt7 Corrections: (The following items were deleted from the chart) 03/14 21:11 21:11 BASIC METABOLIC PANEL+C.LAB.BRZ ordered. [facility] 21:11 21:11 CBC+H.LAB.BRZ ordered. [facility] 21:11 21:11 HEPATIC FUNCTION+C.LAB.BRZ ordered. [facility] 21:11 21:11 MAGNESIUM+C.LAB.BRZ ordered. [facility] 21:11 21:11 PROBNP+C.LAB.BRZ ordered. [facility] 21:11 21:11 PROTIME (+INR)+COAG.LAB.BRZ ordered. [facility] 21:11 21:11 Troponin High Sensitivity+C.LAB.BRZ ordered. [facility] 21:11 21:11 UA Rfx Jose Eduardo Cult if indicated+U.LAB.BRZ ordered. [facility] 21:11 21:11 URINE DRUG SCREEN+UC.LAB.BRZ ordered. [facility] 21:11 21:11 Chest Single View+RAD.RAD.BRZ ordered. [facility] 03/15 00:17 00:17 Troponin High Sensitivity+C.LAB.BRZ ordered. EDMS EDMS 00:25 03/14 23:48 Chest For PE Angio+CT.RAD.BRZ ordered. EDMS EDMS
--- NOTE | 2025-03-15 02:38 | ER ---
Nurse's Notes [facility] Name: Martha Pradhan Age: 64 yrs Sex: Female : 1960 Arrival Date: 03/14/2025 Time: 21:01 Bed 19 Private MD: Diagnosis: Palpitations;Shortness of breath Presentation: 03/14 21:46 Chief complaint: Patient states: PT STATES SHE FELT HER HEART RACING AND WHEN SHE br2 CHECKED IT, HR WAS IN THE 160'S. PT C/O SOB WITH EXERTION.. PT DENIES ANY CHEST PAIN. Coronavirus screen: Client denies travel out of the [place] in the last 14 days. Ebola Screen: Patient denies exposure to infectious person. Initial Sepsis Screen: Does the patient meet any 2 criteria? No. Patient's initial sepsis screen is negative. Does the patient have a suspected source of infection? No. Patient's initial sepsis screen is negative. Risk Assessment: Do you want to hurt yourself or someone else? Patient reports no desire to harm self or others. Onset of symptoms is unknown. 21:46 Method Of Arrival: [facility] br2 21:46 Acuity: ROSALBA 3 br2 Triage Assessment: 21:49 General: Appears in no apparent distress. comfortable, Behavior is calm, cooperative. br2 Pain: Complains of pain in right arm. Historical: - Allergies: 21:49 haloperidol lactate; br2 21:49 hydroxyzine HCl; br2 21:49 Hydroxyzine Pamoate; br2 21:49 Ibuprofen; br2 21:49 Lyrica; br2 21:49 meloxicam; br2 21:49 nalbuphine HCl; br2 21:49 Naproxen; br2 21:49 NSAIDS (Non-Steroidal Anti-Inflammatory Drug); br2 21:49 Nubain; br2 21:49 Risperdal; br2 21:49 Vistaril; br2 - PMHx: 21:49 ADD/ADHD; angina pectoris; Anxiety; Arthritis; Back pain; bleeding ulcers; br2 Cerebrovascular accident; Chronic obstructive lung disease; Chronic pain; Congestive heart failure; GERD; Irritable bowel syndrome; Osteoporosis; PE; restless leg syndrome; Tachycardia; Transient cerebral ischemia; ULCER; - PSHx: 21:49 Appendectomy; hysterectomy; left clavicle repair; br2 - Immunization history:: Adult Immunizations up to date. - Infectious Disease History:: Denies. - Social history:: Smoking status: Patient/guardian denies using tobacco, Patient/guardian denies using alcohol, street drugs. Screenin:55 [facility] ED Fall Risk Assessment (Adult) History of falling in the last 3 months, br2 including since admission Confusion or Disorientation No (0 pts) Intoxicated or Sedated No (0 pts) Impaired Gait No (0 pts) Mobility Assist Device Used No (0 pt) Altered Elimination No (0 pt) Score/Fall Risk Level 0 - 2 = Low Risk Oriented to surroundings. Abuse screen: Denies threats or abuse. Denies injuries from another. Nutritional screening: No deficits noted. Tuberculosis screening: No symptoms or risk factors identified. Assessment: 21:55 Reassessment: Patient and/or family updated on plan of care and expected duration. Pain br2 level reassessed. Patient is alert, oriented x 3, equal unlabored respirations, skin warm/dry/pink. General: Appears in no apparent distress. comfortable, Behavior is calm, cooperative. Pain: Complains of pain in right arm. Neuro: [place] Agitation-Sedation Scale (RASS): 0 - Alert and Calm Level of Consciousness is awake, alert, Oriented to person, place, time, situation. Cardiovascular: Reports shortness of breath, Denies chest pain, Capillary refill < 3 seconds. Respiratory: Reports shortness of breath on exertion Airway is patent Respiratory effort is even, unlabored, Respiratory pattern is regular, symmetrical. GI: No signs and/or symptoms were reported involving the gastrointestinal system. : No signs and/or symptoms were reported regarding the genitourinary system. EENT: No signs and/or symptoms were reported regarding the EENT system. Derm: No signs and/or symptoms reported regarding the dermatologic system. Musculoskeletal: No signs and/or symptoms reported regarding the musculoskeletal system. 03/15 01:33 Reassessment: UNABLE TO GET ENOUGH BLOOD FOR A REPEAT TROPONIN. PT SAID NO MORE STICKS. br2 PROVIDER [employer] NOTIFIED. Vital Signs: 03/14 21:46 BP 118 / 46; Pulse 83; Resp 18; Temp 97.1; Pulse Ox 99% ; Weight 49.9 kg; Height 5 ft. br2 0 in. ; Pain 0/10; 21:54 BP 101 / 35; Pulse 79; Resp 18; Pulse Ox 98% ; br2 23:00 BP 117 / 54; Pulse 78; Resp 16; Pulse Ox 94% ; br2 23:00 BP 119 / 48; Pulse 71; Resp 19; Pulse Ox 98% ; br2 03/15 02:46 BP 127 / 50; Pulse 76; Resp 22; Pulse Ox 99% ; br2 03/14 21:46 Body Mass Index 21.48 (49.90 kg, 152.4 cm) br2 03/14 21:46 Pain Scale: Adult br2 ED Course: 03/14 21:09 Patient arrived in ED. rv1 21:09 Keyshawn Chan PA-C is PHCP. cp 21:09 Jace Mcghee DO is Attending Physician. cp 21:45 Basic Metabolic Panel Sent. br2 21:45 CBC with Diff Sent. br2 21:45 LFT's Sent. br2 21:45 Magnesium Sent. br2 21:45 NT PRO-BNP Sent. br2 21:45 PT-INR Sent. br2 21:45 Troponin HS Sent. br2 21:49 Triage completed. br2 21:49 Arm band placed on right wrist. br2 21:51 Inserted saline lock: 22 gauge in left wrist, using aseptic technique. Blood collected. br2 Flushed with 10 mL NS. 21:54 XRAY Chest (1 view) In Process Unspecified. EDMS 21:55 Patient has correct armband on for positive identification. Bed in low position. Call br2 light in reach. Side rails up X2. Provided Education on: PLAN OF CARE. 23:02 CBC with Diff Sent. br2 23:02 LFT's Sent. br2 23:02 Magnesium Sent. br2 23:02 NT PRO-BNP Sent. br2 23:02 Troponin HS Sent. br2 23:15 Karin Terry, RN is Primary Nurse. br2 03/15 00:37 CT Chest Wo Con In Process Unspecified. EDMS 02:56 IV discontinued, intact, bleeding controlled, No redness/swelling at site. Pressure br2 dressing applied. 02:57 No provider procedures requiring assistance completed. br2 Administered Medications: 03/14 23:02 Drug: NS 0.9% IV 500 ml 500 ml IV at 1 bolus once; to be given as a bolus over 60 br2 minutes Volume: 500 ml; Route: IV; Rate: 1 bolus; Site: left hand; 03/15 00:29 Follow up: IV Status: Completed infusion; IV Intake: 500ml br2 00:00 Drug: Potassium PO Effervescent Tablet 50 mEq PO once; dissolve in 4 ounces of water or br2 juice Route: PO; 00:29 Follow up: Response: No adverse reaction br2 01:06 Drug: fentaNYL (PF) IVP 25 mcg IVP once Route: IVP; Site: left wrist; br2 02:00 Follow up: Response: No adverse reaction; Pain is decreased br2 Medication: 03/14 21:55 VIS not applicable for this client. br2 Intake: 03/15 00:29 IV: 500ml; Total: 500ml. br2 Outcome: 02:38 Discharge ordered by . filippo 02:56 Discharged to home via wheelchair, br2 02:56 Condition: improved 02:56 Instructed on discharge instructions, Demonstrated understanding of instructions, follow-up care, 02:58 Patient left the ED. br2 Signatures: Dispatcher [employer] EDMS Keyshawn Chan PA-C PAFernyC Evita Carrera rv1 Karin Terry RN RN br2
[2025-03-15 03:02] VITALS: TEMP 97.1
[2025-03-15 03:06] VITALS: BP 127/50; O2SAT 99
--- NOTE | 2025-03-15 04:02 | RAD REPORT ---
Procedure description: CT CHEST WITHOUT IV CONTRAST CLINICAL INDICATION: PALPITATIONS COMPARISON: CT chest December 05, 2020 TECHNIQUE: Axial imaging obtained through the chest. Sagittal and coronal reconstructions. CONTRAST: None FINDINGS: CT chest: No acute appearing infiltrates. There is some scarring in the lower lateral left lung and t he lung apices. There is a comminuted proximal right humerus fracture. Left humeral prosthesis is present. Previous i nternal fixation left clavicle. Healed right rib fractures. No pleural or pericardial effusions. There is a moderate size hiatal hernia in the lower mediastinum similar to previous. The thoracic aorta is normal size. No mediastinal or hilar adenopathy. The adrenal glands are normal. IMPRESSION: 1: Comminuted proximal right humerus fracture. Other healed fractures are evident. 2: Hiatal hernia. 3: No acute intrathoracic finding. RADIATION DOSE REDUCTION: This exam was performed according to our departmental dose-optimization pro gram which includes automated exposure control, adjustment of the mA and/or kV according to patient size and/or use of iterative reconstruction technique. Electronically signed by: Demarco Hernandez MD 03/15/2025 02:14 AM CDT Due to temporary technical issues with the PACS/NetPayment reporting system, reports are being sabrina d by the in-house radiologist without review as a courtesy to ensure prompt reporting the interpreting radiologist is fully responsible for the content of the report. Transcribed Date/Time: 03/15/2025 4:02 AM
== END 2025-03-15 02:58 | disposition home or self-care (01) ==
LOC: ER 21:01
DX: R00.2 Palpitations (principal); R06.02 Shortness of breath; J44.9 Chronic obstructive pulmonary disease, unspecified; I50.9 Heart failure, unspecified
CPT/HCPCS: 96361; 93005; 85025; 80048; 36415; 83735; 85610; 80076; 84484; 83880; 71250; 71045; 96374; 99284; J3010; J7040

== ENCOUNTER 2025-03-27 09:21 | Emergency (ER) | payer OTHER ==
[2025-03-27] MEDS ORDERED: ALPRAZOLAM 0.5 MG TABLET ONE (09:51)
--- NOTE | 2025-03-27 10:46 | RAD REPORT ---
Procedure: Chest Single View HISTORY: Palpitations COMPARISON: March 15, 2025 FINDINGS: The lungs appear clear of acute infiltrate. No significant pleural effusion noted. The heart is normal size.. A moderate hiatal hernia present. Chronic fracture/dislocation right humerus IMPRESSION: No acute abnormality is displayed.
[2025-03-27 11:46] LABS: Absolute Lymphocytes (CBC) 0.7 K/uL (0.7-4.9); Hematocrit 33.4 % (36.0-45.0); Hemoglobin 10.3 g/dL (12.0-15.0); MCH 26.4 pg (27.0-35.0); MCHC 31.0 g/dL (32.0-36.0); MCV 85.1 fL (80-100); MPV 8.3 fL (7.6-11.3); Nucleated RBC Absolute Count 0.0 (0-0); Nucleated Red Blood Cells % 0.0 % (0-0); RBC Red Blood Cell Count 3.92 M/uL (3.86-4.86); White Blood Count 8.60 thou/uL (4.3-10.9)
[2025-03-27] MEDS ORDERED: MORPHINE 4 MG/ML SYR ONE (12:03)
[2025-03-27] MEDS ORDERED: ONDANSETRON 4 MG/2 ML VIAL ONE (12:03)
[2025-03-27 12:09] LABS: ALT/SGPT 17 U/L (13-56); AST/SGOT 21 U/L (15-37); Albumin 3.3 g/dL (3.4-5.0); Albumin/Globulin Ratio 0.9 (1.1-1.8); Alkaline Phosphatase 136 U/L (45-117); Anion Gap 12.6 mEq/L (5.0-15.0); BUN Blood Urea Nitrogen 14 mg/dL (7-18); Globulin 3.6 g/dL (2.3-3.5); Glucose Level 108 mg/dL (74-106); Magnesium 1.7 mg/dL (1.6-2.4); Thyroid Stimulating Hormone 0.524 uIU/mL (0.358-3.740); Troponin High Sensitivity 14.5 pg/mL (<58.9)
[2025-03-27 12:10] LABS: Bilirubin Indirect, Calculated 0.1 mg/dL (0.2-0.8)
[2025-03-27 12:12] LABS: Potassium 2.6 mEq/L (3.5-5.1)
[2025-03-27] MEDS ORDERED: KCL 20 MEQ/100 mL IVPB 100 ML IV ONE (12:36)
[2025-03-27] MEDS ORDERED: POTASSIUM 25 MEQ EFFERV TAB ONE ×2 (12:36→15:20)
[2025-03-27] MEDS ORDERED: NA CHLORIDE 0.9% 500 ML ONE (12:36)
--- NOTE | 2025-03-27 12:47 | RAD REPORT ---
EXAM: CT Head Brain Wo Cont HISTORY: WEAKNESS COMPARISON: 08/15/2021 TECHNIQUE: Multiple contiguous axial images were obtained for a CT of the brain without contrast. Sag ittal and coronal reformats were performed. One or more of the following dose reduction techniques were used: Automated exposure control, adjus tment of the mA and kV according to patient size, and iterative reconstruction. Unless otherwise specified, incidental findings do not require dedicated imaging follow-up. FINDINGS: No evidence of hydrocephalus, intracranial hemorrhage, or extra-axial fluid collection. The brain is normal in morphology. The calvarium is intact. The visualized paranasal sinuses and mastoid air cells are essentially clear . IMPRESSION: No evidence of acute intracranial abnormality.
--- NOTE | 2025-03-27 14:31 | ER ---
Nurse's Notes [facility] Name: Martha Pradhan Age: 64 yrs Sex: Female : 1960 Arrival Date: 03/27/2025 Time: 09:20 Bed 17 Private MD: Diagnosis: Tachycardia, unspecified;Generalized anxiety disorder Presentation: 03/27 09:44 Chief complaint: Patient states: Had elevated HR and weakness that started this moring. ll1 EMS states: HR initial 130's, down to 112 now, anxious. No IV. Coronavirus screen: Client denies travel out of the [place] in the last 14 days. At this time, the client does not indicate any symptoms associated with coronavirus-19. Ebola Screen: Patient denies travel to an Ebola-affected area in the 21 days before illness onset. Initial Sepsis Screen: Does the patient meet any 2 criteria? No. Patient's initial sepsis screen is negative. Does the patient have a suspected source of infection? No. Patient's initial sepsis screen is negative. Risk Assessment: Do you want to hurt yourself or someone else? Patient reports no desire to harm self or others. Onset of symptoms was March 27, 2025. 09:44 Method Of Arrival: EMS: [facility] ll1 09:44 Acuity: ROSALBA 3 ll1 Triage Assessment: 09:45 General: Appears in no apparent distress. Behavior is agitated, anxious. Pain: bp Complains of pain in anterior aspect of right shoulder. EENT: No deficits noted. Neuro: No deficits noted. Cardiovascular: Reports palpitations. Respiratory: No deficits noted. GI: No signs and/or symptoms were reported involving the gastrointestinal system. : No signs and/or symptoms were reported regarding the genitourinary system. Derm: No deficits noted. Musculoskeletal: Reports pain in anterior aspect of right shoulder. Historical: - Allergies: 09:43 haloperidol lactate; ll1 09:43 hydroxyzine HCl; ll1 09:43 Hydroxyzine Pamoate; ll1 09:43 Ibuprofen; ll1 09:43 Lyrica; ll1 09:43 meloxicam; ll1 09:43 nalbuphine HCl; ll1 09:43 Naproxen; ll1 09:43 NSAIDS (Non-Steroidal Anti-Inflammatory Drug); ll1 09:43 Nubain; ll1 09:43 Risperdal; ll1 09:43 Vistaril; ll1 - PMHx: 09:43 Back pain; PE; Chronic pain; Congestive heart failure; Arthritis; Tachycardia; ULCER; ll1 Anxiety; angina pectoris; restless leg syndrome; Osteoporosis; Chronic obstructive lung disease; Irritable bowel syndrome; bleeding ulcers; GERD; Transient cerebral ischemia; ADD/ADHD; Cerebrovascular accident; - PSHx: 09:43 Appendectomy; hysterectomy; left clavicle repair; ll1 - Immunization history:: Adult Immunizations up to date. - Social history:: Smoking status: Patient denies any tobacco usage or history of. Screenin:47 [facility] ED Fall Risk Assessment (Adult) History of falling in the last 3 months, ll1 including since admission No falls in past 3 months (0 pts) Confusion or Disorientation No (0 pts) Intoxicated or Sedated No (0 pts) Impaired Gait No (0 pts) Mobility Assist Device Used No (0 pt) Altered Elimination No (0 pt) Score/Fall Risk Level 0 - 2 = Low Risk Maintained a safe environment, Hourly rounding (assess needs \T\ fall precautionary measures) done. Abuse screen: Denies threats or abuse. Nutritional screening: No deficits noted. Tuberculosis screening: No symptoms or risk factors identified. Assessment: 09:46 Reassessment: Patient and/or family updated on plan of care and expected duration. Pain ll1 level reassessed. walked out of ED, ready to go home. General: Appears in no apparent distress. Behavior is calm, cooperative, appropriate for age, Reports anxiety. Pain: Denies pain. Neuro: No deficits noted. Reports weakness. Cardiovascular: No deficits noted. Respiratory: No deficits noted. 13:14 Reassessment: Patient appears in no apparent distress at this time. Patient is alert, bp oriented x 3, equal unlabored respirations, skin warm/dry/pink. Vital Signs: 09:44 BP 140 / 92; Pulse 112; Resp 16; Temp 98.1; Pulse Ox 98% ; Pain 0/10; ll1 13:00 BP 138 / 85; Pulse 95; Resp 16; Pulse Ox 98% ; bp 09:44 Pain Scale: Adult ll1 ED Course: 09:20 Patient arrived in ED. bd 09:23 Ghada Reddy FNP-C is PHCP. kb 09:23 Keyshawn Kaur MD is Attending Physician. kb 09:25 Patient has correct armband on for positive identification. Bed in low position. ll1 Provided Education on: ER procedures and process. 09:40 Arm band placed on Patient placed in an exam room, on a stretcher. ll1 09:46 Triage completed. ll1 09:48 No provider procedures requiring assistance completed. Patient did not have IV access ll1 during this emergency room visit. 10:38 XRAY Chest (1 view) In Process Unspecified. EDMS 11:38 Accessed peripheral vein via ultrasound, utilizing dynamic ultrasound technique Blood cm10 collected. Clean \T\ dry. Dressing intact. Good blood return. Flushes easily. 11:39 Basic Metabolic Panel Sent. cm10 11:39 CBC with Diff Sent. cm10 11:39 LFT's Sent. cm10 11:39 Magnesium Sent. cm10 11:39 Troponin HS Sent. cm10 11:39 Initial lab(s) drawn, by me, sent to lab. cm10 11:43 Jonathan Cazares, RN is Primary Nurse. bp 12:33 CT Head Brain wo Cont In Process Unspecified. EDMS Administered Medications: 09:55 Drug: ALPRAZolam PO Tablet 0.5 mg PO once Route: PO; dd2 12:06 Drug: morphine IVP or IV 4 mg IVP once over 4 mins Route: IVP; Infused Over: 4 mins; bp Site: left forearm; 12:06 Drug: Ondansetron IVP 4 mg IVP once; over 2 minutes Route: IVP; Site: left forearm; bp 12:51 Drug: Potassium Chloride IV 20 mEq IV at calculated rate once; administer over 1-2 rg5 hours Route: IV; Rate: calculated rate; Site: left forearm; 12:51 Drug: NS 0.9% IV 500 ml 500 ml IV at 1 bolus once; run with potassium Volume: 500 ml; rg5 Route: IV; Rate: 1 bolus; Site: left forearm; 12:52 Drug: Potassium PO Effervescent Tablet 50 mEq PO once; dissolve in 4 ounces of water or rg5 juice Route: PO; 15:16 Drug: Potassium PO Effervescent Tablet 25 mEq PO once; dissolve in 4 ounces of water or rg5 juice Route: PO; Medication: 09:48 VIS not applicable for this client. ll1 Outcome: 14:30 Discharge ordered by . kb 15:40 Patient left the ED. rg5 Signatures: Dispatcher [employer] EDMS Ghada Reddy, TRANSMISSION SUPERVISOR-C TRANSMISSION SUPERVISOR-Yadira Pollack Brian, RN RN bp Minda David, RN RN ll1 Shirlene Andrew, RN RN cm10 Jomar Vegas RN RN rg5 LYLE MORAES RN RN dd2
--- NOTE | 2025-03-27 14:31 | EDPHYS ---
Physician Documentation [facility] Name: Martha Pradhan Age: 64 yrs Sex: Female : 1960 Arrival Date: 03/27/2025 Time: 09:20 Bed 17 Private MD: RAFAEL Physician Keyshawn Kaur HPI: 03/27 14:57 This 64 yrs old Female presents to ER via EMS with complaints of Palpitations. kb 14:57 Patient is a 64-year-old female who presents for weakness that started this morning. kb States that she gets this way whenever she is in [place] so she checked her pulse rate and it was in the 160s. States sometimes it gets better on its own but the other times it does not so she decided to call 911 just in case. Rate down into the 120s upon arrival to the ER. Patient states this has been going on intermittently for the last 15 years. Also reports pain to right shoulder where she has a known fracture and is scheduled to follow-up with orthopedics for that.. Historical: - Allergies: 09:43 haloperidol lactate; ll1 09:43 hydroxyzine HCl; ll1 09:43 Hydroxyzine Pamoate; ll1 09:43 Ibuprofen; ll1 09:43 Lyrica; ll1 09:43 meloxicam; ll1 09:43 nalbuphine HCl; ll1 09:43 Naproxen; ll1 09:43 NSAIDS (Non-Steroidal Anti-Inflammatory Drug); ll1 09:43 Nubain; ll1 09:43 Risperdal; ll1 09:43 Vistaril; ll1 - PMHx: 09:43 Back pain; PE; Chronic pain; Congestive heart failure; Arthritis; Tachycardia; ULCER; ll1 Anxiety; angina pectoris; restless leg syndrome; Osteoporosis; Chronic obstructive lung disease; Irritable bowel syndrome; bleeding ulcers; GERD; Transient cerebral ischemia; ADD/ADHD; Cerebrovascular accident; - PSHx: 09:43 Appendectomy; hysterectomy; left clavicle repair; ll1 - Immunization history:: Adult Immunizations up to date. - Social history:: Smoking status: Patient denies any tobacco usage or history of. ROS: 10:22 Constitutional: As per HPI kb Exam: 10:22 Constitutional: This is a well developed, well nourished patient who is awake, alert, kb and in no acute distress. Head/Face: Normocephalic, atraumatic. ENT: Moist Mucous membranes Respiratory: Respirations even and unlabored. No increased work of breathing. Talking in full sentences Skin: Warm, dry with normal turgor. Normal color. MS/ Extremity: Pulses equal, no cyanosis. Neurovascular intact. Full, normal range of motion. Neuro: Awake and alert, GCS 15, oriented to person, place, time, and situation. 10:22 Cardiovascular: Rate: tachycardic, 10:22 ECG was reviewed by the Attending Physician. Vital Signs: 09:44 BP 140 / 92; Pulse 112; Resp 16; Temp 98.1; Pulse Ox 98% ; Pain 0/10; ll1 13:00 BP 138 / 85; Pulse 95; Resp 16; Pulse Ox 98% ; bp 09:44 Pain Scale: Adult ll1 MDM: 09:23 Medical Screening Exam initiated kb 09:38 ED course: Pt became anxious and agitated while awaiting room. States she hasn't taken kb her xanax today. Pt normally takes 0.5mg. Dose ordered . 14:54 Differential diagnosis: arrythmia, dehydration, stress disorder. Data reviewed: vital kb signs, nurses notes. Consideration of Admission/Observation Escalation of care including admission/observation considered. Admission considered and recommended but patient does not want to stay in the hospital. Will complete potassium infusion patient will follow-up with PCP.. 14:56 Historians other than the Patient: EMS: [facility]. Counseling: I had a detailed kb discussion with the patient and/or guardian regarding the historical points, exam findings, and any diagnostic results supporting the discharge/admit diagnosis, lab results, radiology results, the need for outpatient follow up, a family practitioner, to return to the emergency department if symptoms worsen or persist or if there are any questions or concerns that arise at home. 03/27 Order name: Basic Metabolic Panel; Complete Time: 12:17 kb 03/27 Order name: CBC with Diff; Complete Time: 12:05 kb 03/27 Order name: LFT's; Complete Time: 12:17 kb 03/27 Order name: Magnesium; Complete Time: 12:17 kb 03/27 Order name: Troponin HS; Complete Time: 12:17 kb 10/15 09:23 Order name: TSH; Complete Time: 12:17 kb 03/27 09:23 Order name: XRAY Chest (1 view); Complete Time: 10:46 kb 03/27 12:04 Order name: CT Head Brain wo Cont; Complete Time: 12:52 kb 03/27 09:23 Order name: Cardiac monitoring; Complete Time: 11:09 kb 03/27 09:23 Order name: EKG - Nurse/Tech; Complete Time: 11:08 kb 03/27 09:23 Order name: IV Saline Lock; Complete Time: 11:39 kb 03/27 09:23 Order name: Labs collected and sent; Complete Time: 11:39 kb 03/27 09:23 Order name: O2 Per Protocol; Complete Time: 09:50 kb 03/27 09:23 Order name: O2 Sat Monitoring; Complete Time: 09:50 kb EC:22 Rate is 107 beats/min. Rhythm is regular. QRS [place] is Normal. [place] interval is normal at kb 120 msec. QRS interval is normal at 85 msec. QT interval is normal at 420 msec. Administered Medications: 09:55 Drug: ALPRAZolam PO Tablet 0.5 mg PO once Route: PO; dd2 12:06 Drug: morphine IVP or IV 4 mg IVP once over 4 mins Route: IVP; Infused Over: 4 mins; bp Site: left forearm; 12:06 Drug: Ondansetron IVP 4 mg IVP once; over 2 minutes Route: IVP; Site: left forearm; bp 12:51 Drug: Potassium Chloride IV 20 mEq IV at calculated rate once; administer over 1-2 rg5 hours Route: IV; Rate: calculated rate; Site: left forearm; 12:51 Drug: NS 0.9% IV 500 ml 500 ml IV at 1 bolus once; run with potassium Volume: 500 ml; rg5 Route: IV; Rate: 1 bolus; Site: left forearm; 12:52 Drug: Potassium PO Effervescent Tablet 50 mEq PO once; dissolve in 4 ounces of water or rg5 juice Route: PO; 15:16 Drug: Potassium PO Effervescent Tablet 25 mEq PO once; dissolve in 4 ounces of water or rg5 juice Route: PO; Disposition: 03/28 07:32 Co-signature as Attending Physician, Keyshawn TEE I agree with the assessment and eric plan of care. Disposition Summary: 03/27/25 14:30 Discharge Ordered Notes: Location: Home kb Condition: Stable kb Diagnosis - Tachycardia, unspecified kb - Generalized anxiety disorder kb Followup: kb - With: Emergency Department - When: As needed - Reason: Worsening of condition Followup: kb - With: Private Physician - When: 2 - 3 days - Reason: Recheck today's complaints, Continuance of care, Re-evaluation by your physician Discharge Instructions: - Discharge Summary Sheet kb - Panic Attack, [id number] kb - Palpitations, [id number] kb Forms: - Medication Reconciliation Form kb - Antibiotic Education kb - Prescription Opioid Use kb - Patient Portal Instructions kb - Leadership Thank You Letter kb Signatures: Dispatcher [employer] EDMS Ghada Reddy, MAIL DISTRIBUTION SCHEME EXAMINER-C MAIL DISTRIBUTION SCHEME EXAMINER-Ckb Keyshawn Kaur MD MD cha Peltier, Brian, RN RN bp Minda David RN RN ll1 Jomar Vegas RN RN rg5 LYLE MORAES RN RN dd2 Corrections: (The following items were deleted from the chart) 03/27 09:24 09:24 BASIC METABOLIC PANEL+C.LAB.BRZ ordered. EDMS EDMS 09:24 09:24 CBC+H.LAB.BRZ ordered. EDMS EDMS 09:24 09:24 HEPATIC FUNCTION+C.LAB.BRZ ordered. EDMS EDMS 09:24 09:24 MAGNESIUM+C.LAB.BRZ ordered. EDMS EDMS 09:24 09:24 Troponin High Sensitivity+C.LAB.BRZ ordered. EDMS EDMS 09:24 09:24 THYROID STIMULAT HORMONE+C.LAB.BRZ ordered. EDMS EDMS 09:24 09:24 Chest Single View+RAD.RAD.BRZ ordered. EDMS EDMS
[2025-03-27 15:58] VITALS: TEMP 98.1; O2SAT 98
[2025-03-27 15:59] VITALS: BP 138/85
== END 2025-03-27 15:40 | disposition home or self-care (01) ==
LOC: ER 09:21
DX: R00.0 Tachycardia, unspecified (principal); F41.9 Anxiety disorder, unspecified
CPT/HCPCS: 93005; 85025; 80048; 36415; 83735; 80076; 84443; 84484; 70450; 71045; 96375; 96374; 99284; J3480; J2405; J7040